=== PATIENT | male | born 1975 | race Hispanic/Latino ===

== ENCOUNTER 2017-10-18 21:19 | Inpatient (IN) | payer SELFPAY ==
--- NOTE | 2017-10-18 22:56 | ER ---
Nurse's Notes [facility] Name: Chava Pate Age: 42 yrs Sex: Male : 1975 Arrival Date: 10/18/2017 Time: 21:23 Bed 24 Private MD: Ramon Romo T Diagnosis: Cellulitis and acute lymphangitis of other parts of limb;Fever, unspecified;Type 2 diabetes mellitus Presentation: 10/18 21:32 Presenting complaint: Patient states: numbness in the left foot and radiates to the aj1 left knee, left knee pain. My left knuckle has been sore too. The pain has gotten worse over the day. I tried to go home and elevate it but it didn't help. Its throbbing. Transition of care: patient was not received from another setting of care. Onset of symptoms was October 15, 2017. Risk Assessment: Do you want to hurt yourself or someone else? Patient reports no desire to harm self or others. Initial Sepsis Screen: Does the patient meet any 2 criteria? No. Patient's initial sepsis screen is negative. Does the patient have a suspected source of infection? No. Patient's initial sepsis screen is negative. Care prior to arrival: None. 21:32 Method Of Arrival: Ambulatory aj1 21:32 Acuity: EDINSON 4 aj1 Triage Assessment: 21:34 General: Appears in no apparent distress. uncomfortable, Behavior is calm, cooperative, aj1 appropriate for age. Pain: Complains of pain in left hand and left leg Pain does not radiate. Pain currently is 10 out of 10 on a pain scale. Quality of pain is described as throbbing. Neuro: Level of Consciousness is awake, alert, obeys commands, Oriented to person, place, time, situation, Speech is normal, Facial symmetry appears normal. Cardiovascular: Patient's skin is warm and dry. Respiratory: Airway is patent Respiratory effort is even, unlabored, Respiratory pattern is regular, symmetrical. Derm: Skin is pink, warm \T\ dry. normal. Musculoskeletal: Range of motion: intact in all extremities. Historical: - Allergies: 21:34 No Known Allergies; aj1 - Home Meds: 21:34 None [Active]; aj1 - PMHx: 21:34 Diabetes - NIDDM; aj1 - PSHx: 21:34 None; aj1 - Immunization history:: Flu vaccine is not up to date. - Social history:: Smoking status: Patient/guardian denies using tobacco. - Ebola Screening: : Patient denies travel to an Ebola-affected area in the 21 days before illness onset. - Family history:: not pertinent. Screenin:30 Abuse screen: Denies threats or abuse. Denies injuries from another. Nutritional kr2 screening: No deficits noted. Tuberculosis screening: No symptoms or risk factors identified. Fall Risk None identified. Assessment: 22:27 General: Appears in no apparent distress. uncomfortable, well groomed, well developed, kr2 well nourished, Behavior is calm, cooperative, appropriate for age. Pain: Complains of pain in left leg Pain does not radiate. Pain currently is 10 out of 10 on a pain scale. Quality of pain is described as aching, tingling, Is continuous, Alleviated by nothing. Neuro: Level of Consciousness is awake, alert, obeys commands, Oriented to person, place, time, situation, Appropriate for age. Cardiovascular: Capillary refill < 3 seconds in bilateral fingers Patient's skin is warm and dry. Respiratory: Airway is patent Respiratory effort is even, unlabored, Respiratory pattern is regular, symmetrical. GI: Abdomen is round non-distended. : Denies burning with urination. EENT: Oral mucosa is moist. Derm: Skin is healthy with good turgor, Skin is pink, warm \T\ dry. redness to left lower leg. Musculoskeletal: Swelling present in left leg. 10/19 00:15 Reassessment: Patient appears in no apparent distress at this time. Patient and/or wh family updated on plan of care and expected duration. Pain level reassessed. Patient is alert, oriented x 3, equal unlabored respirations, skin warm/dry/pink. 01:14 Reassessment: Patient appears in no apparent distress at this time. Patient and/or wh family updated on plan of care and expected duration. Pain level reassessed. Patient is alert, oriented x 3, equal unlabored respirations, skin warm/dry/pink. 02:16 Reassessment: Patient appears in no apparent distress at this time. Patient and/or wh family updated on plan of care and expected duration. Pain level reassessed. Patient is alert, oriented x 3, equal unlabored respirations, skin warm/dry/pink. Vital Signs: 06/30 21:34 BP 160 / 99; Pulse 112; Resp 20; Temp 99.4(O); Pulse Ox 99% on R/A; Weight 99.79 kg; aj1 Height 5 ft. 7 in. (170.18 cm) (R); Pain 10/10; 22:20 BP 162 / 96; Pulse 108; Temp 101(O); Pulse Ox 96% ; jp3 10/19 00:37 BP 150 / 88; Pulse 104; Resp 22; Temp 98.4; Pulse Ox 98% on R/A; kr2 02:16 BP 113 / 54; Pulse 92; Resp 21; Pulse Ox 98% on R/A; wh 10/18 21:34 Body Mass Index 34.46 (99.79 kg, 170.18 cm) aj1 ED Course: 10/18 21:23 Patient arrived in ED. es 21:23 Ramon Romo MD is Private Physician. es 21:34 Triage completed. aj1 21:34 Arm band placed on Patient placed in waiting room, Patient notified of wait time. aj1 22:09 Cassia Mitchell, MARCELA is Primary Nurse. kr2 22:23 Elijah Ruiz MD is Attending Physician. [facility] 22:30 Patient has correct armband on for positive identification. Bed in low position. Call kr2 light in reach. Side rails up X 1. Pulse ox on. NIBP on. Door closed. Head of bed elevated. 22:54 Tahira Muhammad MD is Hospitalizing Provider. [facility] 23:00 XRAY Chest (1 view) In Process Unspecified. EDMS 23:05 Inserted saline lock: 20 gauge in right antecubital area, using aseptic technique. kr2 Blood collected. 23:20 Ultrasound completed. Patient tolerated well. Notified ED Physician jazlyn. sg3 23:30 Urine collected: clean catch specimen, clear, EKG done, by ED staff, reviewed by Elijah Ruiz MD. 10/19 02:19 No provider procedures requiring assistance completed. Patient admitted, IV remains in place. Administered Medications: 10/18 23:45 Drug: morphine 4 mg Route: IVP; Site: right antecubital; kr2 10/19 00:28 Follow up: Response: No adverse reaction; Pain is decreased kr2 10/18 23:45 Drug: Zofran 4 mg Route: IVP; Site: right antecubital; 2 10/19 00:28 Follow up: Response: No adverse reaction [facility] 10/18 23:45 Drug: Tylenol 1000 mg Route: PO; 2 10/19 00:28 Follow up: Response: No adverse reaction [facility] 10/18 23:46 Drug: NS 0.9% 1000 ml Route: IV; Rate: 1 bolus; Site: left antecubital; [facility] 10/19 02:18 Follow up: Response: No adverse reaction; IV Status: Completed infusion 10/18 23:46 Drug: Zosyn 3.375 grams Route: IVPB; Infused Over: 60 mins; Site: right antecubital; [facility] 10/19 00:27 Follow up: Response: No adverse reaction; IV Status: Completed infusion [facility] 00:21 Drug: Insulin Regular Human 10 units {Co-Signature: (Michaelle Benton).} Route: Sub-Q; kr2 Site: right upper arm; 02:19 Follow up: Response: No adverse reaction 01:57 Drug: NS 0.9% 1000 ml Route: IV; Rate: 1 bolus; Site: right antecubital; 02:18 Follow up: Response: No adverse reaction; IV Status: Infusion continued upon admission Outcome: 10/18 22:55 Decision to Hospitalize by Provider. [facility] 10/19 02:19 Admitted to [facility] accompanied by nurse, via wheelchair, room 406, with chart, Report called to Vikram MEDRANO Condition: good Instructed on the need for admit. 02:20 Patient left the ED. Signatures: Dispatcher [employer] Mikaela Coburn RN RN aj1 Elijah Ruiz MD MD cha Salyer, Edna es [facility] Cassia Mitchell RN RN kr2 Katelyn Kwong Jacob jp3 [facility]
--- NOTE | 2017-10-18 22:56 | EDPHYS ---
Physician Documentation [facility] Name: Chava Pate Age: 42 yrs Sex: Male : 1975 Arrival Date: 10/18/2017 Time: 21:23 Bed 24 Private MD: Ramon Romo T ED Physician Elijah Ruiz HPI: 10/18 22:51 This 42 yrs old Male presents to ER via Ambulatory with complaints of Leg dennis Pain, Numbness. 22:51 The patient presents with decreased range of motion, pain, that is acute. The dennis complaints affect the lateral aspect of left calf, left calf and left medeiros. Context: The problem was sustained at an unknown site. Onset: The symptoms/episode began/occurred 3 day(s) ago. Modifying factors: The symptoms are alleviated by nothing. the symptoms are aggravated by nothing. Associated signs and symptoms: The patient has no apparent associated signs or symptoms. Associated signs and symptoms: Pertinent positives: fever, weakness. Treatment prior to arrival includes: no previous treatment. Severity of symptoms: At their worst the symptoms were moderate, in the emergency department the symptoms are unchanged. The patient has not experienced similar symptoms in the past. Historical: - Allergies: 21:34 No Known Allergies; aj1 - Home Meds: 21:34 None [Active]; aj1 - PMHx: 21:34 Diabetes - NIDDM; aj1 - PSHx: 21:34 None; aj1 - Immunization history:: Flu vaccine is not up to date. - Social history:: Smoking status: Patient/guardian denies using tobacco. - Ebola Screening: : Patient denies travel to an Ebola-affected area in the 21 days before illness onset. - Family history:: not pertinent. ROS: 22:51 Constitutional: Negative for fever, chills, and weight loss, Eyes: Negative for injury, dennis pain, redness, and discharge, ENT: Negative for injury, pain, and discharge, Neck: Negative for injury, pain, and swelling, Cardiovascular: Negative for chest pain, palpitations, and edema, Respiratory: Negative for shortness of breath, cough, wheezing, and pleuritic chest pain, Abdomen/GI: Negative for abdominal pain, nausea, vomiting, diarrhea, and constipation, Back: Negative for injury and pain, : Negative for injury, bleeding, discharge, and swelling, Neuro: Negative for headache, weakness, numbness, tingling, and seizure, Psych: Negative for depression, anxiety, suicide ideation, homicidal ideation, and hallucinations, Allergy/Immunology: Negative for hives, rash, and allergies, Endocrine: Negative for neck swelling, polydipsia, polyuria, polyphagia, and marked weight changes, Hematologic/Lymphatic: Negative for swollen nodes, abnormal bleeding, and unusual bruising. 22:51 MS/extremity: Positive for pain, swelling, tenderness, of the lateral aspect of left calf. Exam: 22:51 Constitutional: This is a well developed, well nourished patient who is awake, alert, dennis and in no acute distress. Head/Face: Normocephalic, atraumatic. Eyes: Pupils equal round and reactive to light, extra-ocular motions intact. Lids and lashes normal. Conjunctiva and sclera are non-icteric and not injected. Cornea within normal limits. Periorbital areas with no swelling, redness, or edema. ENT: Nares patent. No nasal discharge, no septal abnormalities noted. Tympanic membranes are normal and external auditory canals are clear. Oropharynx with no redness, swelling, or masses, exudates, or evidence of obstruction, uvula midline. Mucous membranes moist. Neck: Trachea midline, no thyromegaly or masses palpated, and no cervical lymphadenopathy. Supple, full range of motion without nuchal rigidity, or vertebral point tenderness. No Meningismus. Chest/axilla: Normal chest wall appearance and motion. Nontender with no deformity. No lesions are appreciated. Cardiovascular: Regular rate and rhythm with a normal S1 and S2. No gallops, murmurs, or rubs. Normal PMI, no JVD. No pulse deficits. Respiratory: Lungs have equal breath sounds bilaterally, clear to auscultation and percussion. No rales, rhonchi or wheezes noted. No increased work of breathing, no retractions or nasal flaring. Abdomen/GI: Soft, non-tender, with normal bowel sounds. No distension or tympany. No guarding or rebound. No evidence of tenderness throughout. Back: No spinal tenderness. No costovertebral tenderness. Full range of motion. Male : Normal genitalia with no discharge or lesions. Neuro: Awake and alert, GCS 15, oriented to person, place, time, and situation. Cranial nerves II-XII grossly intact. Motor strength 5/5 in all extremities. Sensory grossly intact. Cerebellar exam normal. Normal gait. Psych: Awake, alert, with orientation to person, place and time. Behavior, mood, and affect are within normal limits. 22:51 Skin: Appearance: Temperature: hot, Moisture: normal moisture, petechiae, not noted, ecchymosis, not noted, diaphoresis is not appreciated, cellulitis, that is moderate, induration, that is mild is noted, injury, is not appreciated. Vital Signs: 21:34 BP 160 / 99; Pulse 112; Resp 20; Temp 99.4(O); Pulse Ox 99% on R/A; Weight 99.79 kg; aj1 Height 5 ft. 7 in. (170.18 cm) (R); Pain 10/10; 22:20 BP 162 / 96; Pulse 108; Temp 101(O); Pulse Ox 96% ; jp3 10/19 00:37 BP 150 / 88; Pulse 104; Resp 22; Temp 98.4; Pulse Ox 98% on R/A; kr2 02:16 BP 113 / 54; Pulse 92; Resp 21; Pulse Ox 98% on R/A; wh 10/18 21:34 Body Mass Index 34.46 (99.79 kg, 170.18 cm) aj1 MDM: 10/18 22:23 Patient medically screened. [facility] 22:51 Data reviewed: vital signs, nurses notes, lab test result(s), EKG, radiologic studies, [facility] plain films, ultrasound. 10/18 22:51 Order name: Basic Metabolic Panel; Complete Time: 23:53 [facility] 10/18 22:51 Order name: CBC with Diff; Complete Time: 23:53 [facility] 10/18 22:51 Order name: Ckmb; Complete Time: 23:53 [facility] 10/18 22:51 Order name: CPK; Complete Time: 23:53 [facility] 10/18 22:51 Order name: LFT's; Complete Time: 23:53 [facility] 10/18 22:51 Order name: Magnesium; Complete Time: 23:53 [facility] 10/18 22:51 Order name: NT PRO-BNP; Complete Time: 23:53 [facility] 10/18 22:51 Order name: PT-INR; Complete Time: 23:53 [facility] 10/18 22:51 Order name: Ptt, Activated; Complete Time: 23:53 [facility] 10/18 22:51 Order name: Troponin (emerg Dept Use Only); Complete Time: 23:53 [facility] 10/18 22:51 Order name: XRAY Chest (1 view) [facility] 10/18 22:51 Order name: Blood Culture Adult (2) [facility] 10/18 23:48 Order name: Urine Dipstick--Ancillary (enter results) 10/18 23:53 Order name: Urine Dipstick-Ancillary; Complete Time: 01:15 EDGA 10/18 22:51 Order name: EKG; Complete Time: 22:51 [facility] 10/18 22:51 Order name: Cardiac monitoring; Complete Time: 23:25 [facility] 10/18 22:51 Order name: EKG - Nurse/Tech; Complete Time: 23:45 [facility] 10/18 22:51 Order name: IV Saline Lock; Complete Time: 23:25 [facility] 10/18 22:51 Order name: Labs collected and sent; Complete Time: 23:25 [facility] 10/18 22:51 Order name: O2 Per Protocol; Complete Time: 23:25 [facility] 10/18 22:51 Order name: O2 Sat Monitoring; Complete Time: 23:25 [facility] 10/18 22:51 Order name: US Extremity Venous Unilateral Ltd [facility] 10/18 22:51 Order name: Urine Dipstick-Ancillary (obtain specimen); Complete Time: 23:45 [facility] Administered Medications: 23:45 Drug: morphine 4 mg Route: IVP; Site: right antecubital; [facility] 10/19 00:28 Follow up: Response: No adverse reaction; Pain is decreased [facility] 10/18 23:45 Drug: Zofran 4 mg Route: IVP; Site: right antecubital; [facility] 10/19 00:28 Follow up: Response: No adverse reaction [facility] 10/18 23:45 Drug: Tylenol 1000 mg Route: PO; [facility] 10/19 00:28 Follow up: Response: No adverse reaction [facility] 10/18 23:46 Drug: NS 0.9% 1000 ml Route: IV; Rate: 1 bolus; Site: left antecubital; 2 10/19 02:18 Follow up: Response: No adverse reaction; IV Status: Completed infusion 10/18 23:46 Drug: Zosyn 3.375 grams Route: IVPB; Infused Over: 60 mins; Site: right antecubital; kr2 10/19 00:27 Follow up: Response: No adverse reaction; IV Status: Completed infusion kr2 00:21 Drug: Insulin Regular Human 10 units {Co-Signature: ([facility]).} Route: Sub-Q; kr2 Site: right upper arm; 02:19 Follow up: Response: No adverse reaction 01:57 Drug: NS 0.9% 1000 ml Route: IV; Rate: 1 bolus; Site: right antecubital; 02:18 Follow up: Response: No adverse reaction; IV Status: Infusion continued upon admission Disposition: 10/18/17 22:55 Hospitalization ordered by Tahira Muhammad for Inpatient Admission. Preliminary diagnosis are Cellulitis and acute lymphangitis of other parts of limb, Fever, unspecified, Type 2 diabetes mellitus. - Bed requested for Telemetry/MedSurg (Inpatient). - Status is Inpatient Admission. - Condition is Fair. - Problem is new. - Symptoms have improved. UTI on Admission? No Signatures: Dispatcher [employer] EDMS Mikaeal Arana RN RN aj1 Elijah Ruiz MD MD cha Chretien, Felicia, RN RN [facility] Cassia Mitchell RN RN kr2 Donna Romero [facility] Corrections: (The following items were deleted from the chart) 10/18 23:00 22:55 Hospitalization Ordered by Tahira Muhammad MD for Inpatient Admission. Preliminary diagnosis is Cellulitis and acute lymphangitis of other parts of limb; Fever, unspecified; Type 2 diabetes mellitus. Bed requested for Telemetry/MedSurg (Inpatient). Status is Inpatient Admission. Condition is Fair. Problem is new. Symptoms have improved. UTI on Admission? No. dennis 10/19 01:27 10/18 23:00 10/18/2017 22:55 Hospitalization Ordered by Tahira Muhammad MD for Inpatient Admission. Preliminary diagnosis is Cellulitis and acute lymphangitis of other parts of limb; Fever, unspecified; Type 2 diabetes mellitus. Bed requested for Telemetry/MedSurg (Inpatient). Status is Inpatient Admission. Condition is Fair. Problem is new. Symptoms have improved. UTI on Admission? No. eb 10/19 02:20 01:27 10/18/2017 22:55 Hospitalization Ordered by Tahira Muhammad MD for Inpatient Admission. Preliminary diagnosis is Cellulitis and acute lymphangitis of other parts of limb; Fever, unspecified; Type 2 diabetes mellitus. Bed requested for Telemetry/MedSurg (Inpatient). Status is Inpatient Admission. Condition is Fair. Problem is new. Symptoms have improved. UTI on Admission? No. fc
[2017-10-18] MEDS ORDERED: GLUCAGON 1 MG/VIAL IM PRN (22:59)
[2017-10-18] MEDS ORDERED: D50W 25 GM/50 ML SYRINGE IV PRN (22:59)
[2017-10-18 23:23] LABS: Absolute Lymphocytes (CBC) 1.4 K/uL (0.7-4.9); Absolute Monocytes 1.1 K/uL (0.1-1.3); Basophils % 0.5 % (0-1.3); Eosinophils % 1.1 % (0-4.4); Hematocrit 38.7 % (39.6-49.0); Lymphocytes % 8.7 % (15.3-44.8); MCH 27.1 pg (27.0-35.0); MCV 80.4 fL (80-100); MPV 8.2 fL (7.6-11.3); Monocytes % 6.7 % (3.3-12.3); RBC Red Blood Cell Count 4.81 M/uL (4.33-5.43)
[2017-10-18] MEDS ORDERED: NA CHLORIDE 0.9% 1,000 ML ONE (23:23)
[2017-10-18] MEDS ORDERED: VANCOMYCIN 1 GM/250 ML BAG ONE (23:23)
[2017-10-18] MEDS ORDERED: ACETAMINOPHEN 500 MG TAB ONE (23:23)
[2017-10-18] MEDS ORDERED: ONDANSETRON 4 MG/2 ML VIAL ONE (23:23)
[2017-10-18] MEDS ORDERED: MORPHINE 4 MG/ML SYR ONE (23:23)
[2017-10-18] MEDS ORDERED: PIPER/TAZO/NS 3.375gm 3.375 GM/100 ML BAG ONE (23:24)
[2017-10-18 23:36] LABS: Protime INR 0.92
[2017-10-18 23:47] LABS: ALT/SGPT 23 U/L (12-78); AST/SGOT 16 U/L (15-37); Albumin 2.9 g/dL (3.4-5.0); Alkaline Phosphatase 131 U/L (45-117); BUN Blood Urea Nitrogen 23 mg/dL (7-18); Bicarbonate 25 mmol/L (21-32); Bilirubin Direct < 0.1 mg/dL (0-0.2); Bilirubin Total 0.3 mg/dL (0.2-1.0); CKMB Creatine Kinase MB 1.8 ng/mL (0.3-3.6); Creatine Phosphokinase 205 U/L (39-308); Glucose Level 328 mg/dL (74-106); Magnesium 1.8 mg/dL (1.8-2.4); NT PRO-BNP 69 pg/mL (<125); Protein, Total 7.5 g/dL (6.4-8.2); Sodium Level 133 mmol/L (136-145)
[2017-10-18 23:53] LABS: Urine Blood 1+ (NEG); Urine Glucose 2+ (NEG); Urine Protein 3+ (NEG); Urine pH 5.5 (5.0-7.0)
[2017-10-19] MEDS ORDERED: INSULIN -REGULAR HUMAN 50 UNIT/0.5 ML ML ONE (00:05)
[2017-10-19] MEDS ORDERED: NA CHLORIDE 0.9% 1,000 ML ONE (00:05)
--- NOTE | 2017-10-19 00:52 | P.HP ---
Certification for Inpatient Patient admitted to: Inpatient With expected LOS: >2 Midnights Practitioner: I am a practitioner with admitting privileges, knowledge of patient current condition, hospital course, and medical plan of care. Services: Services provided to patient in accordance with Admission requirements found in Title 42 Section 412.3 of the Code of Federal Regulations Patient History Date of Service: 10/19/17 Reason for admission: cellulitis History of Present Illness: Mr Pate is a 42 years old male with history of IDDM, who start about 3 days ago with left lower extremity pain and swelling. He also noticed redness discoloration on the external aspect of hi mid leg. He denied fever, however in ED his temp was 99.4. Lab work remarkable for leukocytosis 15.7K, BS 357 mg/dl. He denied any nausea, vomiting, chest pain or SOB. Allergies No Known Allergies Allergy (Verified 10/19/17 00:45) Home medications list reviewed: Yes Home Medications: NK [No Home Meds] 10/19/17 - Past Medical/Surgical History -: IDDM Past Surgical History: Reviewed- Non-Contributory - Family History Family History: Reviewed- Non-Contributory - Social History Smoking Status: Never smoker Alcohol use: No CD- Drugs: No Place of Residence: Home Review of Systems 10-point ROS is otherwise unremarkable Physical Examination - Physical Exam General: Alert, In no apparent distress HEENT: Atraumatic, PERRLA, Mucous membr. moist/pink, EOMI, Sclerae nonicteric Neck: Supple, 2+ carotid pulse no bruit, No LAD, Without JVD or thyroid abnormality Respiratory: Clear to auscultation bilaterally, Normal air movement Cardiovascular: Regular rate/rhythm, Normal S1 S2 Gastrointestinal: Normal bowel sounds, No tenderness Musculoskeletal: No tenderness Integumentary: Tenderness/swelling, Erythema (right mid leg external aspect) Neurological: Normal gait, Normal speech, Normal strength at 5/5 x4 extr, Normal tone, Normal affect Lymphatics: No axilla or inguinal lymphadenopathy Assessment and Plan - Problems (Diagnosis) (1) Cellulitis Current Visit: Yes Status: Acute Qualifiers: Site of cellulitis: extremity Site of cellulitis of extremity: lower extremity Laterality: left Qualified Code(s): L03.116 - Cellulitis of left lower limb (2) Diabetes mellitus Current Visit: Yes Status: Acute Qualifiers: Diabetes mellitus type: type 2 Diabetes mellitus intermediate insulin use: with intermodal customer service use Diabetes mellitus complication status: with unspecified complications Qualified Code(s): E11.8 - Type 2 diabetes mellitus with unspecified complications; Z79.4 - [employer] (current) use of insulin - Plan The patient will be admitted to the hospital due to left leg cellulitis. Will start empiric treatment with IV Vancomycin and Levaquin. Order SSI for BS control in the hospital. - Advance Directives Does patient have a Living Will: No Does patient have a Durable POA for Healthcare: No - Code Status/Comfort Care Code Status Assessed: Yes Code Status: Full Code
[2017-10-19] MEDS ORDERED: ACETAMINOPHEN 500 MG TAB PO PRN (02:34)
[2017-10-19] MEDS ORDERED: ONDANSETRON 4 MG/2 ML VIAL IV PRN (02:34)
[2017-10-19] MEDS: NA CHLORIDE 0.9% 1,000 ML IV SCH ×3 (02:53→23:50)
[2017-10-19] MEDS: Levofloxacin 750mg IV 750 MG/150 ML BAG IV SCH (02:53)
[2017-10-19] MEDS ORDERED: VANCOMYCIN 0.75 GM in NA CHLORIDE 0.9% 250 ML IV ONE (03:00)
[2017-10-19] MEDS ORDERED: TRAMADOL HCL 50 MG TAB PO PRN ×2 (04:20→07:06)
[2017-10-19] MEDS ORDERED: VANCOMYCIN 1 GM/VIAL ONE (05:23)
[2017-10-19] MEDS ORDERED: NA CHLORIDE 0.9% 250 ML ONE (05:24)
[2017-10-19 05:36] LABS: Absolute Lymphocytes (CBC) 1.8 K/uL (0.7-4.9); Absolute Monocytes 1.3 K/uL (0.1-1.3); Absolute Neutrophil 8.7 K/uL (1.8-8.0); Basophils % 0.3 % (0-1.3); Eosinophils % 1.6 % (0-4.4); Hematocrit 32.3 % (39.6-49.0); Lymphocytes % 14.8 % (15.3-44.8); MCH 26.4 pg (27.0-35.0); MCV 81.4 fL (80-100); MPV 8.3 fL (7.6-11.3); Monocytes % 10.9 % (3.3-12.3); RBC Red Blood Cell Count 3.96 M/uL (4.33-5.43)
[2017-10-19 05:44] LABS: Potassium 4.1 mmol/L (3.5-5.1)
--- NOTE | 2017-10-19 06:19 | EKG ---
Test Date: 2017-10-18 Test Time: 23:30:05 Purchasing Intern: LISA MEASUREMENT RESULTS: Intervals: Rate: 103 NV: 130 QRSD: 84 QT: 320 QTc: 419 [place]: P: 59 NV: 130 QRS: -6 T: 44 INTERPRETIVE STATEMENTS: Sinus tachycardia Otherwise normal ECG No previous ECG available for comparison Electronically Signed On 10-19-17 06:19:03 CDT by Hammad Choudhury
[2017-10-19] MEDS ORDERED: GABAPENTIN 100 MG CAP PO PRN (07:03)
[2017-10-19 08:07] LABS: Ferritin 250.9 ng/mL (26-388); Thyroid Stimulating Hormone 0.45 uIU/mL (0.36-3.74)
[2017-10-19] MEDS ORDERED: VANCOMYCIN 1.75 GM in NA CHLORIDE 0.9% 500 ML IVPB SCH ×3 (09:00→21:00)
[2017-10-19] MEDS ORDERED: VANCOMYCIN 1 GM in NA CHLORIDE 0.9% 500 ML IVPB SCH (09:00)
--- NOTE | 2017-10-19 09:20 | P.PN ---
Subjective Date of Service: 10/19/17 Primary Care Provider: None Chief Complaint: cellulitis Subjective: Other (Left lower extremity erythema slightly improved. Pain present to the left calf region. Patient reports non compliant with diabetic medication.) Physical Examination - Vital Signs Temperature: 98.9 F Blood Pressure: 156/80 Pulse: 91 Respirations: 18 Pulse Ox (%): 95 - Physical Exam General: Alert, In no apparent distress, Oriented x3, Cooperative HEENT: Atraumatic Neck: Supple Respiratory: Clear to auscultation bilaterally, Normal air movement Cardiovascular: Normal pulses, Regular rate/rhythm Gastrointestinal: Normal bowel sounds, Soft and benign, Non-distended, No tenderness, No masses, No rebound, No guarding Integumentary: Other (Mild erythema and pain to the left lateral calf region mainly to the lateral side just below the knee. No area of induration. No exudate noted.) Neurological: Normal speech, Normal strength at 5/5 x4 extr, Normal tone, Normal affect - Studies Medications List Reviewed: Yes Assessment & Plan - Problems (Diagnosis) (1) Anemia Current Visit: Yes Status: Acute Plan: Patient found to have iron and B12 deficiency. Will start iron and B12 supplementation. Patient will need GI evaluation as an outpatient. Patient presents with cellulitis to the left lower extremity. Will continue IV antibiotic therapy. Patient with diabetes. Hemoglobin A1c pending. Will restart metformin. Anticipate discharge likely tomorrow. I will turn the service over to Dr. Parisi tomorrow. I will go over the plan of care with her. Qualifiers: Anemia type: iron deficiency Iron deficiency anemia type: unspecified iron deficiency Qualified Code(s): D50.9 - Iron deficiency anemia, unspecified (2) B12 deficiency Current Visit: Yes Status: Acute Plan: Will start B12 supplementation. (3) Obesity Current Visit: Yes Status: Chronic Plan: Lifestyle modification education will be provided. Qualifiers: Obesity type: due to excess calories Obesity classification: adult class 1 (BMI 30 - 34.9) Serious obesity comorbidity presence: with serious comorbidity Body mass index: BMI 34.0-34.9 Qualified Code(s): E66.09 - Other obesity due to excess calories; Z68.34 - Body mass index (BMI) 34.0-34.9, adult (4) Diabetic neuropathy Current Visit: Yes Status: Chronic Plan: Patient reports taking medication. Will start Neurontin. Diabetic control needed. Qualifiers: Diabetes mellitus type: type 2 Diabetes mellitus complication detail: diabetic polyneuropathy Qualified Code(s): E11.42 - Type 2 diabetes mellitus with diabetic polyneuropathy (5) Cellulitis Current Visit: Yes Status: Acute Plan: Cellulitis to the left lower extremity noted. Slightly improved. Will continue with IV antibiotic therapy-vancomycin and Levaquin. Venous Doppler pending. Patient needs diabetic control. Overall condition appears improved. Will provide medication for pain. Anticipate possible discharge tomorrow. I will turn the service over to Dr. Parisi tomorrow. I will go over plan of care with her. Qualifiers: Site of cellulitis: extremity Site of cellulitis of extremity: lower extremity Laterality: left Qualified Code(s): L03.116 - Cellulitis of left lower limb (6) Diabetes mellitus Current Visit: Yes Status: Chronic Plan: Will check A1c. Patient admits not being compliant with medication. Will restart his metformin. Adjustments may be required for better control. Qualifiers: Diabetes mellitus type: type 2 Diabetes mellitus long term care social worker insulin use: with assisted use Diabetes mellitus complication status: with skin complications Diabetes mellitus complication detail: with other skin complication Qualified Code(s): E11.628 - Type 2 diabetes mellitus with other skin complications; Z79.4 - rodent exterminator (current) use of insulin (7) GERD (gastroesophageal reflux disease) Current Visit: Yes Status: Suspected Plan: Patient may have GERD especially in light of anemia. Will start PPI. Qualifiers: Esophagitis presence: esophagitis presence not specified Qualified Code(s) : K21.9 - Gastro-esophageal reflux disease without esophagitis Discharge Plan: Home Plan to discharge in: 24 Hours - Code Status/Comfort Care Code Status Assessed: Yes (Patient full code) Time Spent Managing Pts Care (In Minutes): 55
[2017-10-19] MEDS: INSULIN -REGULAR HUMAN 50 UNIT/0.5 ML ML SQ SCH ×4 (09:35→20:44)
[2017-10-19] MEDS: ENOXAPARIN 40 MG/0.4 ML SQ SCH (09:35)
[2017-10-19] MEDS: METFORMIN HCL 500 MG TAB PO SCH ×2 (09:44→17:26)
[2017-10-19] MEDS: HYDROCODONE/APAP 7.5/325 MG TAB PO PRN ×2 (09:44→20:54)
--- NOTE | 2017-10-19 11:24 | RAD REPORT ---
EXAM DESCRIPTION: VAS - Extremity Venous Uni Ltd - 10/18/2017 11:21 pm CLINICAL HISTORY: PAIN Leg swelling and edema. COMPARISON: Extremity Venous Uni Ltd dated 11/28/2015 FINDINGS: Left lower extremity venous system was interrogated with Doppler technique. Normal flow, c ompressibility and augmentation was noted. There is no DVT present. IMPRESSION: No evidence of left lower extremity deep venous thrombosis.
[2017-10-19] MEDS: CYANOCOBALAMIN 1,000 MCG TAB PO SCH (12:12)
[2017-10-19] MEDS: FERROUS SULFATE 325 MG TAB PO SCH (12:12)
[2017-10-19] MEDS: PANTOPRAZOLE 40MG TABLET PO SCH (12:12)
--- NOTE | 2017-10-19 12:37 | RAD REPORT ---
EXAM DESCRIPTION: RAD - Chest Single View - 10/18/2017 11:00 pm CLINICAL HISTORY: COUGH Chest pain. COMPARISON: No comparisons FINDINGS: Portable technique limits examination quality. The lungs are grossly clear. The heart is normal in size. No displaced fractures. IMPRESSION: No acute intrathoracic process suspected.
[2017-10-19] MEDS: ATORVASTATIN 20 MG TAB PO SCH (20:44)
[2017-10-20] MEDS: Levofloxacin 750mg IV 750 MG/150 ML BAG IV SCH (01:52)
[2017-10-20 04:12] LABS: Absolute Lymphocytes (CBC) 2.4 K/uL (0.7-4.9); Absolute Neutrophil 7.9 K/uL (1.8-8.0); Basophils % 0.4 % (0-1.3); Eosinophils % 1.6 % (0-4.4); Lymphocytes % 20.6 % (15.3-44.8); MCH 26.4 pg (27.0-35.0); MCV 81.3 fL (80-100); MPV 8.2 fL (7.6-11.3); Monocytes % 8.5 % (3.3-12.3); RBC Red Blood Cell Count 3.93 M/uL (4.33-5.43)
[2017-10-20 04:27] LABS: BUN Blood Urea Nitrogen 10 mg/dL (7-18); Bicarbonate 28 mmol/L (21-32); Glucose Level 166 mg/dL (74-106); Magnesium 1.7 mg/dL (1.8-2.4); Potassium 3.9 mmol/L (3.5-5.1); Sodium Level 138 mmol/L (136-145)
[2017-10-20] MEDS ORDERED: MAGNESIUM SULFATE 1 gm IVPB 1 GM/100 ML BAG IV ONE (05:03)
[2017-10-20] MEDS ORDERED: POTASSIUM 25 MEQ EFFERV TAB PO ONE (05:05)
[2017-10-20] MEDS: INSULIN -REGULAR HUMAN 50 UNIT/0.5 ML ML SQ SCH ×4 (08:32→21:10)
[2017-10-20] MEDS: CYANOCOBALAMIN 1,000 MCG TAB PO SCH (08:33)
[2017-10-20] MEDS: ENOXAPARIN 40 MG/0.4 ML SQ SCH (08:33)
[2017-10-20] MEDS: FERROUS SULFATE 325 MG TAB PO SCH (08:33)
[2017-10-20] MEDS: METFORMIN HCL 500 MG TAB PO SCH ×2 (08:33→16:17)
[2017-10-20] MEDS: PANTOPRAZOLE 40MG TABLET PO SCH (08:33)
[2017-10-20] MEDS: NA CHLORIDE 0.9% 1,000 ML IV SCH ×2 (08:33→16:16)
[2017-10-20] MEDS: HYDROCODONE/APAP 7.5/325 MG TAB PO PRN ×2 (08:39→21:09)
[2017-10-20] MEDS ORDERED: CYANOCOBALAMIN 1,000 MCG TAB PO SCH (10:00)
[2017-10-20] MEDS: VANCOMYCIN 1.75 GM in NA CHLORIDE 0.9% 500 ML IVPB SCH ×2 (10:28→22:06)
--- NOTE | 2017-10-20 13:50 | RAD REPORT ---
EXAM DESCRIPTION: RAD - Knee Left 2 View - 10/20/2017 1:34 pm CLINICAL HISTORY: Left knee pain and swelling FINDINGS: No fracture or dislocation is seen. A small joint effusion is suspected. Periosteal deposition involving the tibia may be secondary to p rior trauma. No bony erosion is noted.
--- NOTE | 2017-10-20 14:13 | P.PN ---
Subjective Date of Service: 10/20/17 Primary Care Provider: None Chief Complaint: cellulitis Pt seen and examined at bedside with RN. Chart Reviewed. C/o having pain on the right lower extremities. States he is not able to bear weight on the affected area. Review of Systems General: As per HPI Physical Examination - Vital Signs Temperature: 98.1 F Blood Pressure: 155/85 Pulse: 98 Respirations: 18 Pulse Ox (%): 97 - Physical Exam General: Alert, In no apparent distress HEENT: Atraumatic, PERRLA, EOMI Neck: Supple, JVD not distended Respiratory: Clear to auscultation bilaterally, Normal air movement Cardiovascular: Regular rate/rhythm, Normal S1 S2 Gastrointestinal: Normal bowel sounds, No tenderness Musculoskeletal: No tenderness Integumentary: Tenderness/swelling (On the right leg around the lateral aspect of the lower leg. ), Erythema, Warmth Neurological: Normal speech, Normal tone, Normal affect Lymphatics: No axilla or inguinal lymphadenopathy - Studies Medications List Reviewed: Yes Assessment & Plan - Problems (Diagnosis) (1) Cellulitis Onset Date: 10/20/17 Current Visit: Yes Status: Acute Plan: Left leg Cellulites and swelling. Pt is still complaining of pain and states he is unable to bear weight. -IV vanc and zosyn -Xray of the knee With Small Joint effusion. -MRI pending -US DVT negative -Culture pending. Qualifiers: Site of cellulitis: extremity Site of cellulitis of extremity: lower extremity Laterality: left Qualified Code(s): L03.116 - Cellulitis of left lower limb (2) Anemia Onset Date: 10/20/17 Current Visit: Yes Status: Chronic Qualifiers: Anemia type: iron deficiency Iron deficiency anemia type: unspecified iron deficiency Qualified Code(s): D50.9 - Iron deficiency anemia, unspecified (3) Diabetes mellitus Onset Date: 10/20/17 Current Visit: Yes Status: Chronic Qualifiers: Diabetes mellitus type: type 2 Diabetes mellitus termite inspector insulin use: with termite inspector use Diabetes mellitus complication status: with skin complications Diabetes mellitus complication detail: with other skin complication Qualified Code(s): E11.628 - Type 2 diabetes mellitus with other skin complications; Z79.4 - skilled nursing (current) use of insulin (4) Obesity Onset Date: 10/20/17 Current Visit: Yes Status: Chronic Qualifiers: Obesity type: due to excess calories Obesity classification: adult class 1 (BMI 30 - 34.9) Serious obesity comorbidity presence: with serious comorbidity Body mass index: BMI 34.0-34.9 Qualified Code(s): E66.09 - Other obesity due to excess calories; Z68.34 - Body mass index (BMI) 34.0-34.9, adult Discharge Plan: Home Plan to discharge in: 48 Hours - Code Status/Comfort Care Code Status Assessed: Yes Critical Care: No
--- NOTE | 2017-10-20 21:00 | RAD REPORT ---
EXAM DESCRIPTION: MRI - Knee Left W/Wo Cont - 10/20/2017 7:44 pm CLINICAL HISTORY: Left knee pain and swelling COMPARISON: October 20, 2017 x-ray TECHNIQUE: Axial, sagittal and coronal magnetic resonance imaging of the left knee was obtained. 20 cc MultiHance was administered intravenously. FINDINGS: A moderate joint effusion is present. A suprapatellar plica is seen. Enhancement of the s ynovium is present. Diffuse edema is present within the lateral subcutaneous tissues of the knee. A soft tissue abscess i s not seen. No significant abnormal signal within the bones is noted. IMPRESSION: Moderate joint effusion with enhancement of the synovium. This is a nonspecific finding but can be associated with septic arthritis and should be correlated clinically and with appropriate lab values. Diffuse edema within the lateral soft tissues of the knee probably representing a cellulitis There is no evidence of osteomyelitis
[2017-10-20] MEDS: ATORVASTATIN 20 MG TAB PO SCH (21:10)
[2017-10-21] MEDS: Levofloxacin 750mg IV 750 MG/150 ML BAG IV SCH (02:46)
[2017-10-21 04:16] LABS: Absolute Lymphocytes (CBC) 1.7 K/uL (0.7-4.9); Absolute Neutrophil 8.2 K/uL (1.8-8.0); Basophils % 0.6 % (0-1.3); Eosinophils % 2.1 % (0-4.4); Hematocrit 30.4 % (39.6-49.0); Lymphocytes % 15.3 % (15.3-44.8); MCH 27.3 pg (27.0-35.0); MCV 80.3 fL (80-100); Monocytes % 8.7 % (3.3-12.3); RBC Red Blood Cell Count 3.78 M/uL (4.33-5.43)
[2017-10-21 04:23] LABS: BUN Blood Urea Nitrogen 12 mg/dL (7-18); Bicarbonate 30 mmol/L (21-32); Glucose Level 173 mg/dL (74-106); Magnesium 1.9 mg/dL (1.8-2.4); Potassium 4.6 mmol/L (3.5-5.1); Sodium Level 139 mmol/L (136-145)
[2017-10-21] MEDS: NA CHLORIDE 0.9% 1,000 ML IV SCH ×2 (04:34→09:24)
[2017-10-21] MEDS: INSULIN -REGULAR HUMAN 50 UNIT/0.5 ML ML SQ SCH ×4 (07:30→21:40)
[2017-10-21] MEDS: VANCOMYCIN 1.75 GM in NA CHLORIDE 0.9% 500 ML IVPB SCH ×2 (09:25→21:39)
[2017-10-21] MEDS: METFORMIN HCL 500 MG TAB PO SCH ×2 (09:26→17:45)
[2017-10-21] MEDS: FERROUS SULFATE 325 MG TAB PO SCH (09:26)
[2017-10-21] MEDS: PANTOPRAZOLE 40MG TABLET PO SCH (09:26)
[2017-10-21] MEDS: ENOXAPARIN 40 MG/0.4 ML SQ SCH (09:27)
[2017-10-21] MEDS: CYANOCOBALAMIN 1,000 MCG TAB PO SCH (09:27)
[2017-10-21] MEDS: HYDROCODONE/APAP 7.5/325 MG TAB PO PRN ×2 (12:49→21:51)
--- NOTE | 2017-10-21 14:25 | P.PN ---
Subjective Date of Service: 10/21/17 Primary Care Provider: None Chief Complaint: cellulitis Pt seen and examined at bedside with RN. Chart Reviewed. still C/o having pain on the right lower extremities. States he is able to bear weight on the affected area but not as much. Mild improvement. Review of Systems General: As per HPI Physical Examination - Vital Signs Temperature: 98.5 F Blood Pressure: 169/92 Pulse: 95 Respirations: 18 Pulse Ox (%): 96 - Physical Exam General: Alert, In no apparent distress HEENT: Atraumatic, PERRLA, EOMI Neck: Supple, JVD not distended Respiratory: Clear to auscultation bilaterally, Normal air movement Cardiovascular: Regular rate/rhythm, Normal S1 S2 Gastrointestinal: Normal bowel sounds, No tenderness Musculoskeletal: Erythema, Tenderness, Warmth, Other (Swelling and redness noted on the lateral aspect of the left leg. Knee without any swelling or erythema. Patient able to bend the knee as well. ) Integumentary: No rashes Neurological: Normal speech, Normal tone, Normal affect Lymphatics: No axilla or inguinal lymphadenopathy - Studies Medications List Reviewed: Yes Assessment & Plan - Problems (Diagnosis) (1) Cellulitis Onset Date: 10/20/17 Current Visit: Yes Status: Acute Plan: Left leg Cellulites and swelling. Pt is still complaining of pain and states he is unable to bear weight. Slight improvement today. -IV vanc and zosyn -MRI of the knee with mild joint effusion with Enhancement. However clinically Pt does not have septic joint. Will continue to monitor. If symptoms changes then will get ortho to drain the fluid and send to culture. -US DVT negative -blood Culture pending. Qualifiers: Site of cellulitis: extremity Site of cellulitis of extremity: lower extremity Laterality: left Qualified Code(s): L03.116 - Cellulitis of left lower limb (2) Anemia Onset Date: 10/20/17 Current Visit: Yes Status: Chronic Qualifiers: Anemia type: iron deficiency Iron deficiency anemia type: unspecified iron deficiency Qualified Code(s): D50.9 - Iron deficiency anemia, unspecified (3) Diabetes mellitus Onset Date: 10/20/17 Current Visit: Yes Status: Chronic Qualifiers: Diabetes mellitus type: type 2 Diabetes mellitus terminal superintendent insulin use: with terminal superintendent use Diabetes mellitus complication status: with skin complications Diabetes mellitus complication detail: with other skin complication Qualified Code(s): E11.628 - Type 2 diabetes mellitus with other skin complications; Z79.4 - senior living (current) use of insulin (4) Obesity Onset Date: 10/20/17 Current Visit: Yes Status: Chronic Qualifiers: Obesity type: due to excess calories Obesity classification: adult class 1 (BMI 30 - 34.9) Serious obesity comorbidity presence: with serious comorbidity Body mass index: BMI 34.0-34.9 Qualified Code(s): E66.09 - Other obesity due to excess calories; Z68.34 - Body mass index (BMI) 34.0-34.9, adult Discharge Plan: Home Plan to discharge in: 24 Hours - Code Status/Comfort Care Code Status Assessed: Yes Critical Care: No
[2017-10-21] MEDS: ATORVASTATIN 20 MG TAB PO SCH (21:39)
[2017-10-22] MEDS: NA CHLORIDE 0.9% 1,000 ML IV SCH ×2 (00:34→05:49)
[2017-10-22] MEDS: Levofloxacin 750mg IV 750 MG/150 ML BAG IV SCH (02:40)
[2017-10-22 03:53] LABS: HBsAG Nonreactive (Nonreactive); Hepatitis A IgM Antibody Nonreactive
[2017-10-22 04:16] LABS: Hematocrit 30.3 % (39.6-49.0); MCH 27.6 pg (27.0-35.0); RBC Red Blood Cell Count 3.77 M/uL (4.33-5.43)
[2017-10-22 04:23] LABS: Absolute Lymphocytes (CBC) 1.7 K/uL (0.7-4.9); Absolute Monocytes 0.7 K/uL (0.1-1.3); Absolute Neutrophil 7.2 K/uL (1.8-8.0); Basophils % 0.7 % (0-1.3); Eosinophils % 2.6 % (0-4.4); Lymphocytes % 17.2 % (15.3-44.8); MCV 80.5 fL (80-100); MPV 7.8 fL (7.6-11.3); Monocytes % 6.6 % (3.3-12.3)
[2017-10-22 04:59] LABS: BUN Blood Urea Nitrogen 15 mg/dL (7-18); Bicarbonate 33 mmol/L (21-32); Glucose Level 184 mg/dL (74-106); Potassium 4.2 mmol/L (3.5-5.1); Sodium Level 139 mmol/L (136-145)
[2017-10-22] MEDS: HYDROCODONE/APAP 7.5/325 MG TAB PO PRN (09:04)
[2017-10-22] MEDS: METFORMIN HCL 500 MG TAB PO SCH (09:04)
[2017-10-22] MEDS: PANTOPRAZOLE 40MG TABLET PO SCH (09:04)
[2017-10-22] MEDS: FERROUS SULFATE 325 MG TAB PO SCH (09:05)
[2017-10-22] MEDS: ENOXAPARIN 40 MG/0.4 ML SQ SCH (09:05)
[2017-10-22] MEDS: VANCOMYCIN 1.75 GM in NA CHLORIDE 0.9% 500 ML IVPB SCH (09:05)
[2017-10-22] MEDS: INSULIN -REGULAR HUMAN 50 UNIT/0.5 ML ML SQ SCH (09:05)
[2017-10-22] MEDS: CYANOCOBALAMIN 1,000 MCG TAB PO SCH (09:05)
--- NOTE | 2017-10-22 12:10 | P.DS ---
Admission Date: 10/18/17 Discharge Date: 10/22/17 Primary Care Provider: None Disposition: ROUTINE DISCHARGE Discharge Condition: GOOD Reason for Admission: cellulitis Consultations: None - Problems (1) Cellulitis Onset Date: 10/20/17 Current Visit: Yes Status: Acute Qualifiers: Site of cellulitis: extremity Site of cellulitis of extremity: lower extremity Laterality: left Qualified Code(s): L03.116 - Cellulitis of left lower limb (2) Anemia Onset Date: 10/20/17 Current Visit: Yes Status: Chronic Qualifiers: Anemia type: iron deficiency Iron deficiency anemia type: unspecified iron deficiency Qualified Code(s): D50.9 - Iron deficiency anemia, unspecified (3) Diabetes mellitus Onset Date: 10/20/17 Current Visit: Yes Status: Chronic Qualifiers: Diabetes mellitus type: type 2 Diabetes mellitus fpc insulin use: with fpc use Diabetes mellitus complication status: with skin complications Diabetes mellitus complication detail: with other skin complication Qualified Code(s): E11.628 - Type 2 diabetes mellitus with other skin complications; Z79.4 - watermelon inspector (current) use of insulin (4) Obesity Onset Date: 10/20/17 Current Visit: Yes Status: Chronic Qualifiers: Obesity type: due to excess calories Obesity classification: adult class 1 (BMI 30 - 34.9) Serious obesity comorbidity presence: with serious comorbidity Body mass index: BMI 34.0-34.9 Qualified Code(s): E66.09 - Other obesity due to excess calories; Z68.34 - Body mass index (BMI) 34.0-34.9, adult Brief History of Present Illness: Mr Pate is a 42 years old male with history of IDDM, who start about 3 days ago with left lower extremity pain and swelling. He also noticed redness discoloration on the external aspect of hi mid leg. He denied fever, however in ED his temp was 99.4. Lab work remarkable for leukocytosis 15.7K, BS 357 mg/dl. He denied any nausea, vomiting, chest pain or SOB. Hospital Course: Overall During the hospital stay pt remained stable Pt was admitted to the hospital for left lower leg cellulites. Was started on Abx IV. Pt had no improvement day 2. Blood culture and wound culture were negative. Pt leg was wrapped and elevated day 2. Showed Marked improvement. Knee xray was done and MRI was consistent with Fluid collection. Pt however did not have any clinically signs of septic joint. Pt was switched PO levaquin and had marked improvement. Was able to ambulate and was doing well. on Day 3 pt swelling and cellulites completely resolved and thus discharge home. Vital Signs/Physical Exam: Temp Pulse Resp BP Pulse Ox 98.8 F 87 18 166/90 H 97 10/22/17 08:00 10/22/17 08:00 10/22/17 08:00 10/22/17 08:00 10/22/17 08:00 General: Alert, In no apparent distress HEENT: Atraumatic, PERRLA, EOMI Neck: Supple, JVD not distended Respiratory: Clear to auscultation bilaterally, Normal air movement Cardiovascular: Regular rate/rhythm, Normal S1 S2 Gastrointestinal: Normal bowel sounds, No tenderness Musculoskeletal: No tenderness, Other (Complete Resolution of the Left leg Swelling and cellulitis. Knee is WNL. and FROM noted on the left knee) Integumentary: No rashes Neurological: Normal speech, Normal tone, Normal affect Lymphatics: No axilla or inguinal lymphadenopathy Laboratory Data at Discharge: WBC 9.9 K/uL (4.3-10.9) 10/22/17 03:50 Hgb 10.4 g/dL (13.6-17.9) L 10/22/17 03:50 Hct 30.3 % (39.6-49.0) L 10/22/17 03:50 Plt Count 283 K/uL (152-406) 10/22/17 03:50 PT 10.9 SECONDS (9.5-12.5) 10/18/17 23:05 INR 0.92 10/18/17 23:05 APTT 26.3 SECONDS (24.3-36.9) 10/18/17 23:05 Sodium 139 mmol/L (136-145) 10/22/17 03:50 Potassium 4.2 mmol/L (3.5-5.1) 10/22/17 03:50 BUN 15 mg/dL (7-18) 10/22/17 03:50 Creatinine 0.90 mg/dL (0.55-1.3) 10/22/17 03:50 Glucose 184 mg/dL (74-106) H 10/22/17 03:50 Magnesium 1.9 mg/dL (1.8-2.4) 10/21/17 03:51 Total Bilirubin 0.3 mg/dL (0.2-1.0) 10/18/17 23:05 AST 16 U/L (15-37) 10/18/17 23:05 ALT 23 U/L (12-78) 10/18/17 23:05 Alkaline Phosphatase 131 U/L (45-117) H 10/18/17 23:05 Home Medications: Atorvastatin Calcium [Lipitor*] 20 mg PO BEDTIME #30 tab 10/22/17 levoFLOXacin [Levaquin] 500 mg PO DAILY #10 tab 10/22/17 New Medications: Atorvastatin Calcium [Lipitor*] 20 mg PO BEDTIME #30 tab levoFLOXacin [Levaquin] 500 mg PO DAILY #10 tab Patient Discharge Instructions: Please f.u with PCP in 1 to 2 week post discharge. You were admitted to the hospital for Cellulitis of the left leg. Knee MRI was consistent with effusion but clinically you did not have septic joint. You were treated with Levaquin. New medication. Levaquin 500mg Daily Diet: Regular Activity: Ad minh Followup: Ramon Romo MD [Primary Care Provider] - 1 Week (call the office to make an appointment in 1 week. )
== END 2017-10-22 12:43 | disposition home or self-care (01) | DRG 603 ==
LOC: ER 21:19 → ERHOLD 22:56 → 4TH 10-19 01:56
PROVIDERS: ADMIT Internal Medicine; ATTEND Internal Medicine
DX: L03.116 Cellulitis of left lower limb (principal); D64.9 Anemia, unspecified; E11.9 Type 2 diabetes mellitus without complications; Z79.4 Long term (current) use of insulin; E66.9 Obesity, unspecified; Z68.34 Body mass index [BMI] 34.0-34.9, adult; E53.8 Deficiency of other specified B group vitamins; K21.9 Gastro-esophageal reflux disease without esophagitis
CPT/HCPCS: 36415; 71045; 80048; 80074; 80076; 80202; 81003; 82550; 82553; 82607; 82728; 82962; 83036; 83540; 83735; 83880; 84439; 84443; 84466; 84484; 85025; 85610; 85730; 87040; 93005; 93971; 96361; 96365; 96372; 96375; 99285; A9577; J1650; J2405; J2543; J3370; J3475; J7030

== ENCOUNTER 2017-10-30 03:34 | Emergency (ER) | payer SELFPAY ==
[2017-10-30] MEDS ORDERED: HYDROCODONE/APAP 5/325 MG TAB ONE (04:22)
--- NOTE | 2017-10-30 04:27 | EDPHYS ---
Physician Documentation [facility] Name: Chava Pate Age: 42 yrs Sex: Male : 1975 Arrival Date: 10/30/2017 Time: 03:36 Bed 15 Private MD: Ramon Romo T ED Physician Elijah Ruiz HPI: 10/30 04:18 This 42 yrs old Male presents to ER via Ambulatory with complaints of cant dennis sleep, Pain, cellulitis. 04:18 The patient presents with pain, that is acute. The complaints affect the lateral aspect dennis of left knee. Context: The problem was sustained at home. Onset: The symptoms/episode began/occurred 2 day(s) ago. Modifying factors: The symptoms are alleviated by nothing. the symptoms are aggravated by nothing. Associated signs and symptoms: Pertinent positives: tingling. Severity of symptoms: At their worst the symptoms were mild, in the emergency department the symptoms are unchanged. The patient has not experienced similar symptoms in the past, The patient has experienced similar episodes in the past. Historical: - Allergies: 03:55 No Known Allergies; fc - Home Meds: 03:55 Unable to obtain [Active]; fc - PMHx: 03:55 Diabetes - NIDDM; peripheral neuropathy; fc - PSHx: 03:55 None; fc - Immunization history:: Last tetanus immunization: unknown. - Social history:: Smoking status: Patient/guardian denies using tobacco. - Ebola Screening: : Patient negative for fever greater than or equal to 101.5 degrees Fahrenheit, and additional compatible Ebola Virus Disease symptoms Patient denies exposure to infectious person Patient denies travel to an Ebola-affected area in the 21 days before illness onset. - Family history:: not pertinent. ROS: 04:18 Constitutional: Negative for fever, chills, and weight loss, Eyes: Negative for injury, dennis pain, redness, and discharge, ENT: Negative for injury, pain, and discharge, Neck: Negative for injury, pain, and swelling, Cardiovascular: Negative for chest pain, palpitations, and edema, Respiratory: Negative for shortness of breath, cough, wheezing, and pleuritic chest pain, Abdomen/GI: Negative for abdominal pain, nausea, vomiting, diarrhea, and constipation, Back: Negative for injury and pain, : Negative for injury, bleeding, discharge, and swelling, Skin: Negative for injury, rash, and discoloration, Neuro: Negative for headache, weakness, numbness, tingling, and seizure, Psych: Negative for depression, anxiety, suicide ideation, homicidal ideation, and hallucinations, Allergy/Immunology: Negative for hives, rash, and allergies, Endocrine: Negative for neck swelling, polydipsia, polyuria, polyphagia, and marked weight changes, Hematologic/Lymphatic: Negative for swollen nodes, abnormal bleeding, and unusual bruising. 04:18 MS/extremity: Positive for pain, paresthesias, tenderness, of the lateral aspect of left knee. Exam: 04:18 Constitutional: This is a well developed, well nourished patient who is awake, alert, dennis and in no acute distress. Head/Face: Normocephalic, atraumatic. Eyes: Pupils equal round and reactive to light, extra-ocular motions intact. Lids and lashes normal. Conjunctiva and sclera are non-icteric and not injected. Cornea within normal limits. Periorbital areas with no swelling, redness, or edema. ENT: Nares patent. No nasal discharge, no septal abnormalities noted. Tympanic membranes are normal and external auditory canals are clear. Oropharynx with no redness, swelling, or masses, exudates, or evidence of obstruction, uvula midline. Mucous membranes moist. Neck: Trachea midline, no thyromegaly or masses palpated, and no cervical lymphadenopathy. Supple, full range of motion without nuchal rigidity, or vertebral point tenderness. No Meningismus. Chest/axilla: Normal chest wall appearance and motion. Nontender with no deformity. No lesions are appreciated. Cardiovascular: Regular rate and rhythm with a normal S1 and S2. No gallops, murmurs, or rubs. Normal PMI, no JVD. No pulse deficits. Respiratory: Lungs have equal breath sounds bilaterally, clear to auscultation and percussion. No rales, rhonchi or wheezes noted. No increased work of breathing, no retractions or nasal flaring. Abdomen/GI: Soft, non-tender, with normal bowel sounds. No distension or tympany. No guarding or rebound. No evidence of tenderness throughout. Back: No spinal tenderness. No costovertebral tenderness. Full range of motion. Male : Normal genitalia with no discharge or lesions. Skin: Warm, dry with normal turgor. Normal color with no rashes, no lesions, and no evidence of cellulitis. MS/ Extremity: Pulses equal, no cyanosis. Neurovascular intact. Full, normal range of motion. Neuro: Awake and alert, GCS 15, oriented to person, place, time, and situation. Cranial nerves II-XII grossly intact. Motor strength 5/5 in all extremities. Sensory grossly intact. Cerebellar exam normal. Normal gait. Psych: Awake, alert, with orientation to person, place and time. Behavior, mood, and affect are within normal limits. 04:27 Musculoskeletal/extremity: DVT Exam: No signs of deep vein thrombosis. no swelling, dennis negative Homans' sign noted on exam, no appreciated bluish discoloration, no erythema, no increased warmth, pain, tenderness, that is mild. Vital Signs: 03:40 BP 157 / 96; Pulse 96; Resp 20; Temp 98.0(O); Pulse Ox 98% on R/A; Weight 99.79 kg (R); fc Height 5 ft. 8 in. (172.72 cm) (R); Pain 10/10; 03:40 Body Mass Index 33.45 (99.79 kg, 172.72 cm) fc MDM: 03:56 Patient medically screened. [facility] 04:25 Data reviewed: vital signs, nurses notes, lab test result(s). [facility] 10/30 04:15 Order name: Blood Glucose Level; Complete Time: 04:15 [facility] Administered Medications: 04:30 Drug: [place] 5 mg-325 mg 1 tabs Route: PO; jd3 04:31 Follow up: Response: Medication administered at discharge. jd3 Point of Care Testing: Blood Glucose: 04:15 Blood Glucose: 239 mg/dL; jd3 Ranges: Critical Glucose Levels:Adult <50 mg/dl or >400 mg/dl <40 mg/dl or >180 mg/dl Disposition: 10/30/17 04:26 Discharged to Home. Impression: Type 1 diabetes mellitus. - Condition is Stable. - Discharge Instructions: Type 1 Diabetes Mellitus, Adult, Diabetes Mellitus and Food. - Prescriptions for gabapentin 300 mg Oral capsule - take 1 capsule by ORAL route 3 times per day; 60 capsule. Tylenol- Codeine #3 300-30 mg Oral Tablet - take 2 tablets by ORAL route every 6 hours As needed; 24 tablet. - Medication Reconciliation Form, Thank You Letter, Antibiotic Education, Prescription Opioid Use form. - Follow up: Ramon Romo MD; When: 2 - 3 days; Reason: Recheck today's complaints, Continuance of care, Re-evaluation by your physician. - Problem is new. - Symptoms have improved. Signatures: Elijah Ruiz MD MD cha Chretien, Felicia RN RN Joao Sue RN RN jd3 Corrections: (The following items were deleted from the chart) 04:35 04:26 10/30/2017 04:26 Discharged to Home. Impression: Type 1 diabetes mellitus. jd3 Condition is Stable. Forms are Medication Reconciliation Form, Thank You Letter, Antibiotic Education, Prescription Opioid Use. Follow up: Ramon Romo; When: 2 - 3 days; Reason: Recheck today's complaints, Continuance of care, Re-evaluation by your physician. Problem is new. Symptoms have improved. dennis
--- NOTE | 2017-10-30 04:27 | ER ---
Nurse's Notes [facility] Name: Chava Pate Age: 42 yrs Sex: Male : 1975 Arrival Date: 10/30/2017 Time: 03:36 Bed 15 Private MD: Ramon Romo T Diagnosis: Type 1 diabetes mellitus Presentation: 10/30 03:40 Presenting complaint: Patient states: that he was here and admitted last week for fc cellulitis to left knee. Upon discharge Dr Parisi gave him 1 antibiotics which he has been taking. States that the pain is getting worse. No redness or swelling present. Transition of care: patient was not received from another setting of care. Onset of symptoms was October 30, 2017. Risk Assessment: Do you want to hurt yourself or someone else? Patient reports no desire to harm self or others. Initial Sepsis Screen: Does the patient meet any 2 criteria? HR > 90 bpm. Does the patient have a suspected source of infection? No. Patient's initial sepsis screen is negative. Care prior to arrival: None. 03:40 Method Of Arrival: Ambulatory 03:40 Acuity: EDINSON 3 Triage Assessment: 03:40 General: Appears comfortable, Behavior is calm, cooperative, appropriate for age. Pain: fc Complains of pain in left leg Pain currently is 10 out of 10 on a pain scale. Quality of pain is described as aching, sharp, throbbing, Is continuous, Aggravated by increased activity, repositioning, weight bearing. EENT: No deficits noted. Neuro: Level of Consciousness is awake, alert, obeys commands, Oriented to person, place, time, situation. Cardiovascular: No deficits noted. Respiratory: No deficits noted. GI: No deficits noted. : No deficits noted. Derm: Skin is pink, warm \T\ dry. no redness or warmth to left knee area. Musculoskeletal: Circulation, motion, and sensation intact. Capillary refill < 3 seconds, Range of motion: intact in all extremities, Reports pain in lateral aspect of left knee and lateral aspect of left calf. Historical: - Allergies: 03:55 No Known Allergies; fc - Home Meds: 03:55 Unable to obtain [Active]; fc - PMHx: 03:55 Diabetes - NIDDM; peripheral neuropathy; fc - PSHx: 03:55 None; fc - Immunization history:: Last tetanus immunization: unknown. - Social history:: Smoking status: Patient/guardian denies using tobacco. - Ebola Screening: : Patient negative for fever greater than or equal to 101.5 degrees Fahrenheit, and additional compatible Ebola Virus Disease symptoms Patient denies exposure to infectious person Patient denies travel to an Ebola-affected area in the 21 days before illness onset. - Family history:: not pertinent. Screenin:40 Abuse screen: Denies threats or abuse. Nutritional screening: No deficits noted. fc Tuberculosis screening: No symptoms or risk factors identified. Fall Risk None identified. Assessment: 04:10 General: Appears in no apparent distress. uncomfortable, Behavior is calm, cooperative, jd3 appropriate for age. Pain: Complains of pain in lateral aspect of left calf Quality of pain is described as aching, Is continuous, Aggravated by increased activity. Neuro: Level of Consciousness is awake, alert, obeys commands, Oriented to person, place, time, situation, Appropriate for age. Cardiovascular: Heart tones S1 S2 present Capillary refill < 3 seconds Patient's skin is warm and dry. Respiratory: Airway is patent Respiratory effort is even, unlabored, Respiratory pattern is regular, symmetrical, Breath sounds are clear bilaterally. GI: Abdomen is round Bowel sounds present X 4 quads. Abd is soft and non tender X 4 quads. Patient currently denies abdominal pain, diarrhea, nausea, vomiting. : No signs and/or symptoms were reported regarding the genitourinary system. EENT: No signs and/or symptoms were reported regarding the EENT system. Derm: Skin is intact, Skin is dry, Skin is normal, Skin temperature is warm dry area noted on lateral side of left knee. no redness or swelling noted. Musculoskeletal: Circulation, motion, and sensation intact. Range of motion: intact in all extremities. 04:34 Reassessment: Patient appears in no apparent distress at this time. Patient and/or jd3 family updated on plan of care and expected duration. Pain level reassessed. Patient is alert, oriented x 3, equal unlabored respirations, skin warm/dry/pink. pt reported understanding of discharge instructions, even and steady gait upon discharge. Vital Signs: 03:40 BP 157 / 96; Pulse 96; Resp 20; Temp 98.0(O); Pulse Ox 98% on R/A; Weight 99.79 kg (R); fc Height 5 ft. 8 in. (172.72 cm) (R); Pain 1010; 03:40 Body Mass Index 33.45 (99.79 kg, 172.72 cm) ED Course: 03:36 Patient arrived in ED. am2 03:36 Ramon Romo MD is Private Physician. am2 03:40 Arm band placed on Patient placed in an exam room, on a stretcher. fc 03:40 Patient has correct armband on for positive identification. Placed in gown. Bed in low fc position. Call light in reach. Pulse ox on. NIBP on. 03:40 No provider procedures requiring assistance completed. 03:53 Triage completed. fc 03:56 Elijah Ruiz MD is Attending Physician. dennis 04:05 Joao Sue, MARCELA is Primary Nurse. jd3 04:25 Ramon Romo MD is Referral Physician. dennis 04:34 Patient did not have IV access during this emergency room visit. jd3 Administered Medications: 04:30 Drug: [place] 5 mg-325 mg 1 tabs Route: PO; jd3 04:31 Follow up: Response: Medication administered at discharge. jd3 Point of Care Testing: Blood Glucose: 04:15 Blood Glucose: 239 mg/dL; jd3 Ranges: Outcome: 04:26 Discharge ordered by . dennis 04:33 Discharged to home ambulatory. jd3 04:33 Condition: stable 04:33 Discharge instructions given to patient, Instructed on discharge instructions, follow up and referral plans. medication usage, Demonstrated understanding of instructions, follow-up care, medications, Prescriptions given X 2. 04:35 Patient left the ED. jd3 Signatures: Elijah Ruiz MD MD cha Chretien, Felicia, RN RN Radha Medrano [facility] Joao Sue, MARCELA RN jd3 Corrections: (The following items were deleted from the chart) 04:14 04:10 Derm: Skin is intact, Skin is dry, Skin is normal, Skin temperature is warm dry jd3 red area on lateral side of left knee. jd3 04:14 04:10 Musculoskeletal: Circulation, motion, and sensation intact. Range of motion: jd3 intact in all extremities, jd3
== END 2017-10-30 04:35 | disposition home or self-care (01) ==
LOC: ER 03:34
DX: E10.42 Type 1 diabetes mellitus with diabetic polyneuropathy (principal)
CPT/HCPCS: 82962; 99283

== ENCOUNTER 2018-05-30 22:11 | Emergency (ER) | payer SELFPAY ==
[2018-05-30 22:39] LABS: Absolute Lymphocytes (CBC) 2.8 K/uL (0.7-4.9); Absolute Monocytes 0.6 K/uL (0.1-1.3); Absolute Neutrophil 4.8 K/uL (1.8-8.0); Basophils % 1.2 % (0-1.3); Eosinophils % 3.5 % (0-4.4); Hematocrit 42.7 % (39.6-49.0); Lymphocytes % 32.7 % (15.3-44.8); MPV 8.3 fL (7.6-11.3); RBC Red Blood Cell Count 5.25 M/uL (4.33-5.43)
[2018-05-30] MEDS ORDERED: NA CHLORIDE 0.9% 1,000 ML ONE (22:40)
[2018-05-30] MEDS ORDERED: ACYCLOVIR 400 MG TABLET ONE (22:40)
[2018-05-30 22:42] LABS: Protime INR 0.84
[2018-05-30 23:17] LABS: ALT/SGPT 51 U/L (12-78); AST/SGOT 20 U/L (15-37); Albumin 3.2 g/dL (3.4-5.0); Alkaline Phosphatase 198 U/L (45-117); BUN Blood Urea Nitrogen 23 mg/dL (7-18); Bicarbonate 24 mmol/L (21-32); Bilirubin Direct < 0.1 mg/dL (0-0.2); Bilirubin Total 0.2 mg/dL (0.2-1.0); Glucose Level 370 mg/dL (74-106); Potassium 4.1 mmol/L (3.5-5.1); Protein, Total 7.1 g/dL (6.4-8.2); Sodium Level 136 mmol/L (136-145); Troponin (Emerg Dept Use Only) < 0.02 ng/mL (0.0-0.045)
[2018-05-30] MEDS ORDERED: INSULIN -REGULAR HUMAN 50 UNIT/0.5 ML ML ONE (23:56)
--- NOTE | 2018-05-31 00:17 | ER ---
Nurse's Notes [facility] Name: Chava Pate Age: 43 yrs Sex: Male : 1975 Arrival Date: 05/30/2018 Time: 22:15 Bed 7 Private MD: Diagnosis: Diabetes mellitus due to underlying condition with hyperglycemia;Essential (primary) hypertension;Mckeon's palsy Presentation: 05/30 22:18 Presenting complaint: Patient states: left sided facial droop since 1000 this morning. la1 Top Cleaner equal and strong. Transition of care: patient was not received from another setting of care. Onset of symptoms was May 30, 2018. Risk Assessment: Do you want to hurt yourself or someone else? Patient reports no desire to harm self or others. Initial Sepsis Screen: Does the patient meet any 2 criteria? No. Patient's initial sepsis screen is negative. Does the patient have a suspected source of infection? No. Patient's initial sepsis screen is negative. Care prior to arrival: None. 22:18 Method Of Arrival: Ambulatory la1 22:18 Acuity: EDINSON 3 la1 Historical: - Allergies: 22:19 No Known Allergies; la1 - Home Meds: 22:19 None [Active]; la1 - PMHx: 22:19 Diabetes - NIDDM; PERIPHERAL NEUROPATHY; la1 - PSHx: 22:19 None; la1 - Immunization history:: Adult Immunizations up to date. - Social history:: Smoking status: Patient/guardian denies using tobacco. - Ebola Screening: : No symptoms or risks identified at this time. Screenin:21 Abuse screen: Denies threats or abuse. Denies injuries from another. Nutritional ed1 screening: No deficits noted. Tuberculosis screening: No symptoms or risk factors identified. Fall Risk None identified. Assessment: 22:21 General: Appears in no apparent distress. Behavior is calm, cooperative. Pain: Denies ed1 pain. Neuro: Level of Consciousness is awake, alert, obeys commands, Oriented to person, place, time, situation, Top Cleaner are equal bilaterally Moves all extremities. Gait is steady, Speech is normal, Facial droop on left, Facial symmetry: tongue is midline, Pupils are PERRLA, Intact Reports dizziness, since 1000 today. Cardiovascular: Denies chest pain, Heart tones S1 S2 present. Respiratory: Airway is patent Respiratory effort is even, unlabored, Respiratory pattern is regular, symmetrical, Breath sounds are clear bilaterally. GI: No signs and/or symptoms were reported involving the gastrointestinal system. : No signs and/or symptoms were reported regarding the genitourinary system. EENT: No signs and/or symptoms were reported regarding the EENT system. Derm: Skin is intact, is healthy with good turgor, Skin is dry, Skin is normal, Skin temperature is warm. Musculoskeletal: Circulation, motion, and sensation intact. Range of motion: intact in all extremities. 23:21 Reassessment: Patient appears in no apparent distress at this time. No changes from ed1 previously documented assessment. Patient and/or family updated on plan of care and expected duration. Pain level reassessed. Patient is alert, oriented x 3, equal unlabored respirations, skin warm/dry/pink. Patient denies pain at this time. 05/31 00:30 Reassessment: Patient appears in no apparent distress at this time. No changes from ed1 previously documented assessment. Patient and/or family updated on plan of care and expected duration. Pain level reassessed. Patient is alert, oriented x 3, equal unlabored respirations, skin warm/dry/pink. Patient denies pain at this time. Vital Signs: 05/30 22:19 BP 163 / 108; Pulse 87; Resp 18; Temp 98.1; Pulse Ox 99% on R/A; Weight 113.4 kg; ed1 Height 5 ft. 8 in. (172.72 cm); Pain 0/10; 23:21 BP 159 / 86; Pulse 87; Resp 18; Pulse Ox 95% on R/A; Pain 0/10; ed1 05/31 00:19 BP 140 / 73; Pulse 89; Resp 16; Pulse Ox 96% on R/A; Pain 0/10; ed1 05/30 22:19 Body Mass Index 38.01 (113.40 kg, 172.72 cm) ed1 NIH Stroke Scale Scores: 05/30 22:29 NIHSS Score: 3 [facility] ED Course: 22:15 Patient arrived in ED. tl2 22:16 Irina Castellanos FNP-C [facility]. snw 22:16 Sean Flores MD is Attending Physician. snw 22:18 Triage completed. la1 22:19 Sofie Lopez, MARCELA is Primary Nurse. ed1 22:19 Arm band placed on left wrist. la1 22:21 Patient has correct armband on for positive identification. Placed in gown. Bed in low ed1 position. Call light in reach. Side rails up X 1. Pulse ox on. NIBP on. 22:25 Initial lab(s) drawn, by ED staff, sent to lab. Inserted saline lock: 20 gauge in right ed1 hand, using aseptic technique. Blood collected. 23:09 X-ray completed. Portable x-ray completed in exam room. Patient tolerated procedure sg4 well. 23:13 XRAY Chest (1 view) In Process Unspecified. EDMS 23:45 CT Head Brain wo Cont In Process Unspecified. EDMS 02 00:30 No provider procedures requiring assistance completed. IV discontinued, intact, ed1 bleeding controlled, No redness/swelling at site. Pressure dressing applied. Administered Medications: 02/ 22:35 Drug: NS 0.9% 1000 ml Route: IV; Rate: 1 bolus; Site: right hand; ed1 23:51 Follow up: IV Status: Completed infusion; IV Intake: 1000ml ed1 22:35 Drug: Acyclovir 800 mg Route: PO; ed1 23:51 Follow up: Response: No adverse reaction ed1 23:50 Drug: Insulin Regular Human 5 units {Co-Signature: paulino (Jacy Hoffmann RN).} Route: IVP; ed1 Site: right hand; 02/ 00:19 Follow up: Response: Blood sugar is lowered ed1 02 23:51 Drug: Insulin Regular Human 5 units {Co-Signature: paulino (Jacy Hoffmann RN).} Route: Sub-Q; ed1 Site: right lower abdomen; 02/ 00:20 Follow up: Response: Blood sugar is lowered ed1 Point of Care Testing: Blood Glucose: 02/09 22:19 Blood Glucose: 325 mg/dL; ed1 02/ 00:19 Blood Glucose: 272 mg/dL; ed1 Ranges: Intake: 02 23:51 IV: 1000ml; Total: 1000ml. ed1 Outcome: 02 00:14 Discharge ordered by MD. elizabeth 00:30 Discharged to home ambulatory. ed1 00:30 Condition: good 00:30 Discharge instructions given to patient, Instructed on discharge instructions, follow up and referral plans. medication usage, Demonstrated understanding of instructions, follow-up care, medications, Prescriptions given X 2. 00:31 Patient left the ED. ed1 NIH Stroke Scale - NIH Stroke Score Date: 05/30/2018 Time: 22:29 Total Score = 3 1a. Level of Consciousness (LOC) - 0(Alert) 1b. Level of Consciousness (LOC) (Year \T\ Age) - 0(Both) 1c. LOC Commands (Open \T\ Closes Eyes/Computer Operations Specialist) - 0(Both) 2. Best Gaze (Lateral Gaze Paresis) - 0(Normal) 3. Visual Field Loss - 0(No visual loss) 4. Facial Palsy - 3(Complete paralysis) 5a. Left Arm: Motor (10-second hold) - 0(No drift) 5b. Right Arm: Motor (10-second hold) - 0(No drift) 6a. Left Leg: Motor (5-second hold - always test supine) - 0(No drift) 6b. Right Leg: Motor (5-second hold - always test supine) - 0(No drift) 7. Limb Ataxia (finger/nose \T\ heel/medeiros - test with eyes open) - 0(Absent) 8. Sensory Loss (pinprick arms/legs/face) - 0(Normal) 9. Best Language: Aphasia (description/naming/reading) - 0(No aphasia) 10. Dysarthria (speech clarity - read or repeat words) - 0(Normal) 11. Extinction and Inattention (visual/tactile/auditory/spatial/personal) - 0(No abnormality) Initials: snw Signatures: Dispatcher [employer] EDMS Irina Castellanos, WORK ENVIRONMENT SAFETY INSPECTOR-C WORK ENVIRONMENT SAFETY INSPECTOR-Csnw Sofie Lopez RN RN ed1 Tirso Wilson RN RN la1 Clover Wiseman, MARCELA RN tl2 Stefanie Briceño sg4 Jacy Hoffmann RN lp1 Corrections: (The following items were deleted from the chart) 05/30 22:20 22:19 BP 163 / 108; 113.4 kg; Height 5 ft. 8 in.; BMI: 38.0; la1 ed1 22:27 22:19 BP 163 / 108; Temp 98.1F; 113.4 kg; Height 5 ft. 8 in.; BMI: 38.0; ed1 ed1
--- NOTE | 2018-05-31 00:18 | EDPHYS ---
Physician Documentation [facility] Name: Chava Pate Age: 43 yrs Sex: Male : 1975 Arrival Date: 05/30/2018 Time: 22:15 Bed 7 Private MD: ED Physician Sean Flores HPI: 05/30 22:23 This 43 yrs old Male presents to ER via Ambulatory with complaints of facial snw paralysis/dizziness. 22:23 This 43 yrs old Male presents to ER via Ambulatory with complaints of snw Dizziness. 22:23 The patient presents to the emergency department with left facial paralysis. Onset: The snw symptoms/episode began/occurred suddenly, at 10:00. Context: occurred at home, occurred while the patient was lying down. Context:. Severity of symptoms: At their worst the symptoms were moderate. Severity of symptoms: At their worst the symptoms were. Patient's baseline: Neuro: alert and fully oriented, Motor: no deficits, Ambulation: walks without assistance, Speech: normal, The patient has a previous history of DM. Current symptoms: paralysis or paresis, of the left cheek, left eye, left jaw, left side of forehead, left zygomatic area and left mandible, that is moderate, that is severe. The patient has not experienced similar symptoms in the past. The patient has not recently seen a physician. Does not treat his DM that was Dx at age 21. Historical: - Allergies: 22:19 No Known Allergies; la1 - Home Meds: 22:19 None [Active]; la1 - PMHx: 22:19 Diabetes - NIDDM; PERIPHERAL NEUROPATHY; la1 - PSHx: 22:19 None; la1 - Immunization history:: Adult Immunizations up to date. - Social history:: Smoking status: Patient/guardian denies using tobacco. - Ebola Screening: : No symptoms or risks identified at this time. ROS: 22:26 Constitutional: Negative for fever, chills, and weight loss, Eyes: Negative for injury, snw pain, redness, and discharge, unable to close left eye ENT: Negative for injury, pain, and discharge, unable to taste Neck: Negative for injury, pain, and swelling, Cardiovascular: Negative for chest pain, palpitations, and edema, Respiratory: Negative for shortness of breath, cough, wheezing, and pleuritic chest pain, Abdomen/GI: Negative for abdominal pain, nausea, vomiting, diarrhea, and constipation, Back: Negative for injury and pain, : Negative for injury, bleeding, discharge, and swelling, MS/Extremity: Negative for injury and deformity, Skin: Negative for injury, rash, and discoloration. 22:26 Neuro: Positive for dizziness, left facial paralysis. Exam: 22:27 Eyes: Pupils equal round and reactive to light, extra-ocular motions intact. Lids and snw lashes normal. Conjunctiva and sclera are non-icteric and not injected. Cornea within normal limits. Periorbital areas with no swelling, redness, or edema. ENT: Nares patent. No nasal discharge, no septal abnormalities noted. Tympanic membranes are normal and external auditory canals are clear. Oropharynx with no redness, swelling, or masses, exudates, or evidence of obstruction, uvula midline. Mucous membranes moist. Neck: Trachea midline, no thyromegaly or masses palpated, and no cervical lymphadenopathy. Supple, full range of motion without nuchal rigidity, or vertebral point tenderness. No Meningismus. Chest/axilla: Normal chest wall appearance and motion. Nontender with no deformity. No lesions are appreciated. Cardiovascular: Regular rate and rhythm with a normal S1 and S2. No gallops, murmurs, or rubs. Normal PMI, no JVD. No pulse deficits. Respiratory: Lungs have equal breath sounds bilaterally, clear to auscultation and percussion. No rales, rhonchi or wheezes noted. No increased work of breathing, no retractions or nasal flaring. Abdomen/GI: Soft, non-tender, with normal bowel sounds. No distension or tympany. No guarding or rebound. No evidence of tenderness throughout. Back: No spinal tenderness. No costovertebral tenderness. Full range of motion. Skin: Warm, dry with normal turgor. Normal color with no rashes, no lesions, and no evidence of cellulitis. MS/ Extremity: Pulses equal, no cyanosis. Neurovascular intact. Full, normal range of motion. Psych: Awake, alert, with orientation to person, place and time. Behavior, mood, and affect are within normal limits. 22:27 Constitutional: The patient appears alert, awake, unable to move left face, + forehead involvement 22:27 Head/face: Noted is paralysis of left face. 22:27 Neuro: Orientation: is normal, Mentation: is normal, Memory: is normal. 22:29 Special observations: only paralysis to left face. snw Vital Signs: 22:19 BP 163 / 108; Pulse 87; Resp 18; Temp 98.1; Pulse Ox 99% on R/A; Weight 113.4 kg; ed1 Height 5 ft. 8 in. (172.72 cm); Pain 0/10; 23:21 BP 159 / 86; Pulse 87; Resp 18; Pulse Ox 95% on R/A; Pain 0/10; ed1 02 00:19 BP 140 / 73; Pulse 89; Resp 16; Pulse Ox 96% on R/A; Pain 0/10; ed1 02 22:19 Body Mass Index 38.01 (113.40 kg, 172.72 cm) ed1 NIH Stroke Scale Scores: 02 22:29 NIHSS Score: 3 snw MDM: 22:16 Patient medically screened. snw 05/31 00:19 Data reviewed: vital signs, nurses notes. Data interpreted: Pulse oximetry: on room air snw is 95 %. Interpretation: acceptable. Counseling: I had a detailed discussion with the patient and/or guardian regarding: the historical points, exam findings, and any diagnostic results supporting the discharge/admit diagnosis, the presence of at least one elevated blood pressure reading (>120/80) during this emergency department visit, lab results, radiology results, the need for outpatient follow up, to return to the emergency department if symptoms worsen or persist or if there are any questions or concerns that arise at home. Special discussion: Based on the history and exam findings, there is no indication for further emergent testing or inpatient evaluation. I discussed with the patient/guardian the need to see the primary care provider for further evaluation of the symptoms. 05/30 22:22 Order name: Basic Metabolic Panel; Complete Time: 23:24 snw 05/30 22:22 Order name: CBC with Diff; Complete Time: 22:45 snw 05/30 22:22 Order name: LFT's; Complete Time: 23:24 snw 05/30 22:22 Order name: Magnesium; Complete Time: 23:24 snw 05/30 22:22 Order name: PT-INR; Complete Time: 22:45 snw 05/30 22:22 Order name: Troponin (emerg Dept Use Only); Complete Time: 23:24 snw 05/30 22:22 Order name: XRAY Chest (1 view) snw 05/30 22:22 Order name: EKG; Complete Time: 22:24 snw 05/30 22:22 Order name: Cardiac monitoring; Complete Time: 22:44 snw 05/30 22:22 Order name: CT Head Brain wo Cont snw 05/30 22:22 Order name: EKG - Nurse/Tech; Complete Time: 22:44 snw 05/30 22:22 Order name: IV Saline Lock; Complete Time: 22:44 snw 05/30 22:22 Order name: Labs collected and sent; Complete Time: 22:44 snw 05/30 22:22 Order name: O2 Per Protocol; Complete Time: 22:44 snw 05/30 22:22 Order name: O2 Sat Monitoring; Complete Time: 22:45 snw 05/30 22:22 Order name: FSBS; Complete Time: 22:25 snw 05/31 00:13 Order name: FSBS; Complete Time: 00:19 snw Administered Medications: 05/30 22:35 Drug: NS 0.9% 1000 ml Route: IV; Rate: 1 bolus; Site: right hand; ed1 23:51 Follow up: IV Status: Completed infusion; IV Intake: 1000ml ed1 22:35 Drug: Acyclovir 800 mg Route: PO; ed1 23:51 Follow up: Response: No adverse reaction ed1 23:50 Drug: Insulin Regular Human 5 units {Co-Signature: paulino (Jacy Hoffmann RN).} Route: IVP; ed1 Site: right hand; 05/31 00:19 Follow up: Response: Blood sugar is lowered ed1 05/30 23:51 Drug: Insulin Regular Human 5 units {Co-Signature: angeline1 (Jacy Hoffmann RN).} Route: Sub-Q; ed1 Site: right lower abdomen; 05/31 00:20 Follow up: Response: Blood sugar is lowered ed1 Point of Care Testing: Blood Glucose: 05/30 22:19 Blood Glucose: 325 mg/dL; ed1 02 00:19 Blood Glucose: 272 mg/dL; ed1 Ranges: Critical Glucose Levels:Adult <50 mg/dl or >400 mg/dl <40 mg/dl or >180 mg/dl Disposition: 01:23 Co-signature as Attending Physician, Sean Flores MD. pkl Disposition: 05/31/18 00:14 Discharged to Home. Impression: Diabetes mellitus due to underlying condition with hyperglycemia, Essential (primary) hypertension, Mckeon's palsy. - Condition is Stable. - Discharge Instructions: Mckeon Palsy, Adult, Diabetes and Sick Day Management, Hypertension, Blood Glucose Monitoring, Adult, Diabetes and Exercise, DASH Eating Plan, Rehydration, Adult, Managing Your Hypertension. - Prescriptions for Artificial Tears - instill 2 drop by OPHTHALMIC route 4 times per day; 1 bottle. Valtrex 1 g Oral Tablet - take 1 tablet by ORAL route every 8 hours for 7 days; 21 tablet. - Work release form, Medication Reconciliation Form, Thank You Letter, Antibiotic Education, Prescription Opioid Use form. - Follow up: Private Physician; When: 2 - 3 days; Reason: Recheck today's complaints, Continuance of care, Re-evaluation by your physician. Follow up: Emergency Department; When: As needed; Reason: Worsening of condition. NIH Stroke Scale - NIH Stroke Score Date: 05/30/2018 Time: 22:29 Total Score = 3 1a. Level of Consciousness (LOC) - 0(Alert) 1b. Level of Consciousness (LOC) (Year \T\ Age) - 0(Both) 1c. LOC Commands (Open \T\ Closes Eyes/Group President) - 0(Both) 2. Best Gaze (Lateral Gaze Paresis) - 0(Normal) 3. Visual Field Loss - 0(No visual loss) 4. Facial Palsy - 3(Complete paralysis) 5a. Left Arm: Motor (10-second hold) - 0(No drift) 5b. Right Arm: Motor (10-second hold) - 0(No drift) 6a. Left Leg: Motor (5-second hold - always test supine) - 0(No drift) 6b. Right Leg: Motor (5-second hold - always test supine) - 0(No drift) 7. Limb Ataxia (finger/nose \T\ heel/medeiros - test with eyes open) - 0(Absent) 8. Sensory Loss (pinprick arms/legs/face) - 0(Normal) 9. Best Language: Aphasia (description/naming/reading) - 0(No aphasia) 10. Dysarthria (speech clarity - read or repeat words) - 0(Normal) 11. Extinction and Inattention (visual/tactile/auditory/spatial/personal) - 0(No abnormality) Initials: snw Signatures: Dispatcher [employer] EDMS Sean Flores MD MD pkl Therrien, Shelly, LABOR ECONOMICS TEACHER-C LABOR ECONOMICS TEACHER-Csnw Sofie Lopez RN RN ed1 Tirso Wilson RN RN la1 Jacy Hoffmann RN lp1 Corrections: (The following items were deleted from the chart) 00:31 00:14 05/31/2018 00:14 Discharged to Home. Impression: Diabetes mellitus due to ed1 underlying condition with hyperglycemia; Essential (primary) hypertension; Mckeon's palsy. Condition is Stable. Forms are Medication Reconciliation Form, Thank You Letter, Antibiotic Education, Prescription Opioid Use. Follow up: Private Physician; When: 2 - 3 days; Reason: Recheck today's complaints, Continuance of care, Re-evaluation by your physician. Follow up: Emergency Department; When: As needed; Reason: Worsening of condition. snw
--- NOTE | 2018-05-31 08:59 | RAD REPORT ---
EXAM DESCRIPTION: RAD - Chest Single View - 05/30/2018 11:13 pm CLINICAL HISTORY: Left-sided facial droop, shortness of breath COMPARISON: October 18, 2017 TECHNIQUE: AP portable chest image was obtained 2310 hours . FINDINGS: Lung volumes are low but otherwise clear. Heart and vasculature are normal. No measurable pleural effusion and no pneumothorax. No acute bony abnormality seen. No acute aortic findings suspec brad. IMPRESSION: No acute cardiopulmonary process. No significant interval change.
--- NOTE | 2018-05-31 10:53 | EKG ---
Test Date: 2018-05-30 Test Time: 22:33:12 Lawyer Criminal: ADRIANE MEASUREMENT RESULTS: Intervals: Rate: 80 HI: 116 QRSD: 90 QT: 362 QTc: 417 Petroleum: P: 39 HI: 116 QRS: -17 T: 21 INTERPRETIVE STATEMENTS: Normal sinus rhythm Normal ECG Compared to ECG 10/18/2017 23:30:05 Sinus tachycardia no longer present Electronically Signed On 05-31-18 10:52:40 INSURANCE JOB TITLES by Hammad Choudhury
--- NOTE | 2018-06-01 15:40 | RAD REPORT ---
EXAM DESCRIPTION: CT - Head Brain Wo Cont - 05/31/2018 1:56 am CLINICAL HISTORY: 43 years Male DIZZINESS COMPARISON: None. TECHNIQUE: Contiguous axial images of the brain were obtained without the administration of intravenous contrast . This exam was performed according to our departmental dose-optimization program, which includes aut omated exposure control, adjustment of the mA and/or kV according to patient size and/or less of iter ative reconstruction technique. FINDINGS: Brain: No acute intracranial hemorrhage. No acute territorial infarct. No extra-axial von ection. No mass effect or herniation. Ventricles: Normal in size and configuration. Probable right choroidal fissure versus perimesencephal ic cyst (Series 201, image 7). Globes and orbits: No acute abnormality. Bones: No acute osseous finding. Paranasal sinuses: Paranasal sinuses are clear. Frontal sinuses are hypoplastic. Mastoid air cells: Well pneumatized. Soft tissues: Within normal limits. Insurance Processing Clerk view shows no additional significant finding. IMPRESSION: No acute intracranial abnormality. Electronically signed by Magdy Suazo DO 05/30/2018 11:50 PM BUSINESS QUALITY ASSURANCE ANALYST Due to temporary technical issues with the PACS/Fluency reporting system, reports are being signed by the in house radiologist as a courtesy to ensure prompt reporting. The interpreting radiologist is f ully responsible for the content of the report.
== END 2018-05-31 00:31 | disposition home or self-care (01) ==
LOC: ER 22:11
DX: E11.65 Type 2 diabetes mellitus with hyperglycemia (principal); E11.42 Type 2 diabetes mellitus with diabetic polyneuropathy; G51.0 Bell's palsy; I10 Essential (primary) hypertension
CPT/HCPCS: 36415; 70450; 71045; 80048; 80076; 82962; 83735; 84484; 85025; 85610; 93005; 96361; 96372; 96374; 99284; J7030

== ENCOUNTER 2019-05-02 10:37 | Emergency (ER) | payer SELFPAY ==
[2019-05-02] MEDS ORDERED: NA CHLORIDE 0.9% 1,000 ML ONE (12:11)
[2019-05-02 12:17] LABS: Absolute Lymphocytes (CBC) 1.3 K/uL (0.7-4.9); Basophils % 0.8 % (0-1.3); Lymphocytes % 16.1 % (15.3-44.8); MPV 7.9 fL (7.6-11.3)
[2019-05-02 12:19] LABS: Protime INR 0.86
[2019-05-02 12:39] LABS: ALT/SGPT 40 U/L (12-78); AST/SGOT 12 U/L (15-37); Albumin 2.6 g/dL (3.4-5.0); Alkaline Phosphatase 202 U/L (45-117); BUN Blood Urea Nitrogen 21 mg/dL (7-18); Bicarbonate 26 mmol/L (21-32); Bilirubin Direct < 0.1 mg/dL (0-0.2); Bilirubin Total 0.3 mg/dL (0.2-1.0); Glucose Level 619 mg/dL (74-106); NT PRO-BNP 181 pg/mL (<125); Potassium 4.5 mmol/L (3.5-5.1); Protein, Total 6.9 g/dL (6.4-8.2); Sodium Level 133 mmol/L (136-145)
[2019-05-02] MEDS ORDERED: INSULIN -REGULAR HUMAN 50 UNIT/0.5 ML ML ONE (12:51)
[2019-05-02 12:52] LABS: Urine Blood 1+ (NEG); Urine Glucose 2+ (NEG); Urine Protein 3+ (NEG)
--- NOTE | 2019-05-02 13:47 | EDPHYS ---
Physician Documentation [facility] Name: Chava Pate Age: 44 yrs Sex: Male : 1975 Arrival Date: 05/02/2019 Time: 10:40 Bed 14 Private MD: ED Physician Oscar Ruiz HPI: 05/02 12:34 This 44 yrs old Male presents to ER via Ambulatory with complaints of Numbness kb - Feet, Leg Pain. 12:34 The patient or guardian reports hyperglycemia, polyuria, neuropathy in both feet that kb was potentially precipitated by no particular event. Onset: The symptoms/episode began/occurred 3 month(s) ago. Associated signs and symptoms: Pertinent positives: polyuria. Current symptoms: In the emergency department the patient's symptoms are unchanged from the initial presentation. The patient has experienced similar episodes in the past. The patient has not recently seen a physician. Pt reports he was diagnosed with diabetes 18 years ago and has been taking metformin on and off. States he stopped taking it a while back because he didn't want to take it anymore. States he has to urinate every 2 hours, has neuropathy in his feet and knows it is from his sugar being high. He doesn't follow a diabetic diet and does not check his sugar. States he came in today because he finally decided it was time to do something about it.. Historical: - Allergies: 10:44 No Known Allergies; aj1 - Home Meds: 10:44 None [Active]; aj1 - PMHx: 10:44 Diabetes - NIDDM; PERIPHERAL NEUROPATHY; aj1 - PSHx: 10:44 None; aj1 - Immunization history:: Flu vaccine is not up to date. - Social history:: Smoking status: Patient/guardian denies using tobacco. - Ebola Screening: : Patient denies travel to an Ebola-affected area in the 21 days before illness onset. ROS: 11:15 Constitutional: Negative for fever, chills, and weight loss, ENT: Negative for injury, kb pain, and discharge, Neck: Negative for injury, pain, and swelling, Cardiovascular: Negative for chest pain, palpitations, and edema, Respiratory: Negative for shortness of breath, cough, wheezing, and pleuritic chest pain, Abdomen/GI: Negative for abdominal pain, nausea, vomiting, diarrhea, and constipation, Back: Negative for injury and pain, MS/Extremity: Negative for injury and deformity, Skin: Negative for injury, rash, and discoloration. 11:15 : Positive for urinary frequency. 11:15 Neuro: Positive for neuropathy in bilateral feet. Exam: 11:16 Constitutional: This is a well developed, well nourished patient who is awake, alert, kb and in no acute distress. Head/Face: Normocephalic, atraumatic. ENT: Nares patent. No nasal discharge, no septal abnormalities noted. Tympanic membranes are normal and external auditory canals are clear. Oropharynx with no redness, swelling, or masses, exudates, or evidence of obstruction, uvula midline. Mucous membranes moist. Neck: Trachea midline, no thyromegaly or masses palpated, and no cervical lymphadenopathy. Supple, full range of motion without nuchal rigidity, or vertebral point tenderness. No Meningismus. Chest/axilla: Normal chest wall appearance and motion. Nontender with no deformity. No lesions are appreciated. Cardiovascular: Regular rate and rhythm with a normal S1 and S2. No gallops, murmurs, or rubs. Normal PMI, no JVD. No pulse deficits. Respiratory: Lungs have equal breath sounds bilaterally, clear to auscultation and percussion. No rales, rhonchi or wheezes noted. No increased work of breathing, no retractions or nasal flaring. Abdomen/GI: Soft, non-tender, with normal bowel sounds. No distension or tympany. No guarding or rebound. No evidence of tenderness throughout. Back: No spinal tenderness. No costovertebral tenderness. Full range of motion. Skin: Warm, dry with normal turgor. Normal color with no rashes, no lesions, and no evidence of cellulitis. MS/ Extremity: Pulses equal, no cyanosis. Neurovascular intact. Full, normal range of motion. Neuro: Awake and alert, GCS 15, oriented to person, place, time, and situation. Cranial nerves II-XII grossly intact. Motor strength 5/5 in all extremities. Sensory grossly intact. Cerebellar exam normal. Normal gait. Vital Signs: 10:44 BP 178 / 103; Pulse 96; Resp 18; Temp 98.3; Pulse Ox 99% on R/A; Weight 102.06 kg (R); aj1 Height 5 ft. 8 in. (172.72 cm) (R); Pain 4/10; 11:56 BP 145 / 80; Pulse 96; Resp 22; Pulse Ox 95% on R/A; tw2 12:55 BP 125 / 98; Pulse 91; Resp 22; Pulse Ox 97% on R/A; tw2 13:24 BP 131 / 88; Pulse 95; Resp 20; Pulse Ox 98% on R/A; tw2 14:03 BP 140 / 91; Pulse 91; Resp 17; Pulse Ox 96% on R/A; tw2 10:44 Body Mass Index 34.21 (102.06 kg, 172.72 cm) aj1 MDM: 10:55 Patient medically screened. kb 11:14 Data reviewed: vital signs, nurses notes. Data interpreted: Pulse oximetry: on room air kb is 99 %. Interpretation: normal. 13:45 Counseling: I had a detailed discussion with the patient and/or guardian regarding: the kb historical points, exam findings, and any diagnostic results supporting the discharge/admit diagnosis, lab results, the need for outpatient follow up, a family practitioner, to return to the emergency department if symptoms worsen or persist or if there are any questions or concerns that arise at home. 05/02 11:02 Order name: Glucose, Ancillary Testing; Complete Time: 11:03 EDMS 05/02 11:02 Order name: Glucose; Complete Time: 11:32 tw2 05/02 11:54 Order name: Basic Metabolic Panel; Complete Time: 12:44 kb 05/02 11:54 Order name: CBC with Diff; Complete Time: 12:19 kb 05/02 11:54 Order name: LFT's; Complete Time: 12:44 kb 05/02 11:54 Order name: Magnesium; Complete Time: 12:44 kb 05/02 11:54 Order name: NT PRO-BNP; Complete Time: 12:44 kb 05/02 11:54 Order name: PT-INR; Complete Time: 12:22 kb 05/02 11:54 Order name: EKG; Complete Time: 11:54 kb 05/02 11:54 Order name: Cardiac monitoring; Complete Time: 11:57 kb 05/02 12:18 Order name: Urine Dipstick--Ancillary (enter results); Complete Time: 12:53 ms 05/02 13:35 Order name: Glucose, Ancillary Testing; Complete Time: 13:43 EDMS 05/02 11:54 Order name: EKG - Nurse/Tech; Complete Time: 12:17 kb 05/02 11:54 Order name: IV Saline Lock; Complete Time: 12:00 kb 05/02 11:54 Order name: Labs collected and sent; Complete Time: 11:57 kb 05/02 11:54 Order name: O2 Per Protocol; Complete Time: 11:57 kb 05/02 11:54 Order name: O2 Sat Monitoring; Complete Time: 11:57 kb Administered Medications: 12:13 Drug: NS 0.9% 1000 ml Route: IV; Rate: 1000 ml; Site: right forearm; tw2 12:52 Follow up: Response: No adverse reaction; IV Status: Completed infusion; IV Intake: tw2 1000ml 12:51 Drug: Insulin Regular Human 10 units {Co-Signature: rb1 (Chelsea Harris RN).} Route: tw2 IVP; Site: right forearm; 14:04 Follow up: Response: No adverse reaction; Blood sugar is lowered tw2 Point of Care Testing: Blood Glucose: 10:49 Blood Glucose: High (>450 mg/dL); aj1 13:23 Blood Glucose: 372 mg/dL; tw2 Ranges: Critical Glucose Levels:Adult <50 mg/dl or >400 mg/dl <40 mg/dl or >180 mg/dl Disposition: 16:20 Co-signature as Attending Physician, Oscar Ruiz MD. rn Disposition: 05/02/19 13:46 Discharged to Home. Impression: Hyperglycemia, unspecified, Diabetes mellitus due to underlying condition with diabetic neuropathy, unspecified. - Condition is Stable. - Discharge Instructions: Peripheral Neuropathy, Blood Glucose Monitoring, Adult, Hyperglycemia, Stwk-on-Xocx, Type 2 Diabetes Mellitus, Diagnosis, Adult, Imwo-al-Asen. - Prescriptions for Metformin 500 mg Oral Tablet - take 1 tablet by ORAL route 2 times per day . take 1 tablet with morning meals AND evening meals; 40 tablet. Neurontin 300 mg Oral Capsule - take 1 capsule by ORAL route At bedtime; 20 capsule. - Medication Reconciliation Form, Thank You Letter, Antibiotic Education, Prescription Opioid Use, Work release form form. - Follow up: Emergency Department; When: As needed; Reason: Worsening of condition. Follow up: Private Physician; When: 2 - 3 days; Reason: Recheck today's complaints, Continuance of care, Re-evaluation by your physician. Signatures: Dispatcher [employer] EDElizabeth Dunne, ADVERTISING INTERN-C ADVERTISING INTERN-Ckb Mikaela Arana, RN RN aj1 Oscar Ruiz MD MD rn Wise, Tara, RN RN tw2 Chelsea Harris RN rb1 Corrections: (The following items were deleted from the chart) 14:05 13:46 05/02/2019 13:46 Discharged to Home. Impression: Hyperglycemia, unspecified; tw2 Diabetes mellitus due to underlying condition with diabetic neuropathy, unspecified. Condition is Stable. Forms are Medication Reconciliation Form, Thank You Letter, Antibiotic Education, Prescription Opioid Use. Follow up: Emergency Department; When: As needed; Reason: Worsening of condition. Follow up: Private Physician; When: 2 - 3 days; Reason: Recheck today's complaints, Continuance of care, Re-evaluation by your physician. kb
--- NOTE | 2019-05-02 13:47 | ER ---
Nurse's Notes [facility] Name: Chava Pate Age: 44 yrs Sex: Male : 1975 Arrival Date: 05/02/2019 Time: 10:40 Bed 14 Private MD: Diagnosis: Hyperglycemia, unspecified;Diabetes mellitus due to underlying condition with diabetic neuropathy, unspecified Presentation: 05/02 10:41 Presenting complaint: Patient states: "For a while my feet have been numbing, lets say aj1 3 months, but I am a diabetic and Im not on any meds and my blood sugar is probably high. The last few weeks my feet have been hurting really bad even when I'm not wearing shoes. I can walk, but I can't stand for a long time". Transition of care: patient was not received from another setting of care. Onset of symptoms was 2018. Risk Assessment: Do you want to hurt yourself or someone else? Patient reports no desire to harm self or others. Initial Sepsis Screen: Does the patient meet any 2 criteria? HR > 90 bpm. No. Patient's initial sepsis screen is negative. Does the patient have a suspected source of infection? No. Patient's initial sepsis screen is negative. Care prior to arrival: None. 10:41 Method Of Arrival: Ambulatory aj1 10:41 Acuity: EDINSON 2 aj1 Triage Assessment: 10:44 General: Appears in no apparent distress. uncomfortable, Behavior is calm, cooperative, aj1 appropriate for age. Pain: Complains of pain in right foot and left foot Pain currently is 4 out of 10 on a pain scale. Neuro: Level of Consciousness is awake, alert, obeys commands. Cardiovascular: Patient's skin is warm and dry. Respiratory: Airway is patent Respiratory effort is even, unlabored, Respiratory pattern is regular, symmetrical. Historical: - Allergies: 10:44 No Known Allergies; aj1 - Home Meds: 10:44 None [Active]; aj1 - PMHx: 10:44 Diabetes - NIDDM; PERIPHERAL NEUROPATHY; aj1 - PSHx: 10:44 None; aj1 - Immunization history:: Flu vaccine is not up to date. - Social history:: Smoking status: Patient/guardian denies using tobacco. - Ebola Screening: : Patient denies travel to an Ebola-affected area in the 21 days before illness onset. Screenin:52 Abuse screen: Denies threats or abuse. Nutritional screening: No deficits noted. tw2 Tuberculosis screening: No symptoms or risk factors identified. Fall Risk None identified. Assessment: 10:55 General: Appears in no apparent distress. Behavior is calm, cooperative, appropriate tw2 for age. Neuro: Level of Consciousness is awake, alert, obeys commands, Oriented to person, place, time, situation. Cardiovascular: Heart tones S1 S2 Patient's skin is warm and dry. Respiratory: Airway is patent Respiratory effort is even, unlabored, Respiratory pattern is regular, symmetrical, Breath sounds are clear bilaterally. GI: No signs and/or symptoms were reported involving the gastrointestinal system. Abdomen is flat, Bowel sounds present X 4 quads. : Reports urinary frequency. EENT: No signs and/or symptoms were reported regarding the EENT system. Derm: No signs and/or symptoms reported regarding the dermatologic system. Musculoskeletal: Circulation, motion, and sensation intact. Range of motion: intact in all extremities, Reports numbness in left foot and right foot \\T\\ tingling in b/l feet. 11:55 Reassessment: Patient appears in no apparent distress at this time. No changes from tw2 previously documented assessment. Patient and/or family updated on plan of care and expected duration. Pain level reassessed. Patient is alert, oriented x 3, equal unlabored respirations, skin warm/dry/pink. 12:55 Reassessment: Patient appears in no apparent distress at this time. No changes from tw2 previously documented assessment. Patient and/or family updated on plan of care and expected duration. Pain level reassessed. Patient is alert, oriented x 3, equal unlabored respirations, skin warm/dry/pink. 13:24 Reassessment: Patient appears in no apparent distress at this time. No changes from tw2 previously documented assessment. Patient and/or family updated on plan of care and expected duration. Pain level reassessed. Patient is alert, oriented x 3, equal unlabored respirations, skin warm/dry/pink. 14:03 Reassessment: Patient appears in no apparent distress at this time. No changes from tw2 previously documented assessment. Patient and/or family updated on plan of care and expected duration. Pain level reassessed. Patient is alert, oriented x 3, equal unlabored respirations, skin warm/dry/pink. Vital Signs: 10:44 BP 178 / 103; Pulse 96; Resp 18; Temp 98.3; Pulse Ox 99% on R/A; Weight 102.06 kg (R); aj1 Height 5 ft. 8 in. (172.72 cm) (R); Pain 4/10; 11:56 BP 145 / 80; Pulse 96; Resp 22; Pulse Ox 95% on R/A; tw2 12:55 BP 125 / 98; Pulse 91; Resp 22; Pulse Ox 97% on R/A; tw2 13:24 BP 131 / 88; Pulse 95; Resp 20; Pulse Ox 98% on R/A; tw2 14:03 BP 140 / 91; Pulse 91; Resp 17; Pulse Ox 96% on R/A; tw2 10:44 Body Mass Index 34.21 (102.06 kg, 172.72 cm) aj1 ED Course: 10:40 Patient arrived in ED. as 10:44 Triage completed. aj1 10:45 Arm band placed on. Antipyretics given from triage as ordered by an ER provider. aj1 10:46 Elizabeth Fofana FNP-C is PHCP. kb 10:46 Oscar Ruiz MD is Attending Physician. kb 10:51 Penny Salcedo, MARCELA is Primary Nurse. tw2 10:51 Bed in low position. Call light in reach. surveillance system monitor on. Pulse ox on. NIBP on. tw2 11:00 Inserted saline lock: 20 gauge in right forearm, using aseptic technique. Blood tw2 collected. 14:03 No provider procedures requiring assistance completed. IV discontinued, intact, tw2 bleeding controlled, No redness/swelling at site. Pressure dressing applied. Administered Medications: 12:13 Drug: NS 0.9% 1000 ml Route: IV; Rate: 1000 ml; Site: right forearm; tw2 12:52 Follow up: Response: No adverse reaction; IV Status: Completed infusion; IV Intake: tw2 1000ml 12:51 Drug: Insulin Regular Human 10 units {Co-Signature: rb1 (Chelsea Harris RN).} Route: tw2 IVP; Site: right forearm; 14:04 Follow up: Response: No adverse reaction; Blood sugar is lowered tw2 Point of Care Testing: Blood Glucose: 10:49 Blood Glucose: High (>450 mg/dL); aj1 13:23 Blood Glucose: 372 mg/dL; tw2 Ranges: Intake: 12:52 IV: 1000ml; Total: 1000ml. tw2 Outcome: 13:46 Discharge ordered by . bj 14:03 Discharged to home ambulatory. tw2 14:03 Condition: stable 14:03 Discharge instructions given to patient, Instructed on discharge instructions, follow up and referral plans. medication usage, Demonstrated understanding of instructions, follow-up care, medications, Prescriptions given X 2. 14:05 Patient left the ED. tw2 Signatures: Elizabeth Fofana, FRUIT II FARMWORKER-C FRUIT II FARMWORKER-CkMikaela Warren, RN RN aj1 Janet Dias Tara, RN RN tw2 Chelsea Harris RN rb1 Corrections: (The following items were deleted from the chart) 10:45 10:44 Arm band placed on Patient placed in waiting room, [facility] aj 10:50 10:41 Acuity: EDINSON 3 aj aj
[2019-05-02 14:48] VITALS: TEMP 98.3
[2019-05-02 14:53] VITALS: BP 140/91; O2SAT 96
--- NOTE | 2019-05-03 10:26 | EKG ---
Test Date: 2019-05-02 Test Time: 12:07:10 Lead Instructor/Flight Attendant: MARU MEASUREMENT RESULTS: Intervals: Rate: 93 FL: 114 QRSD: 90 QT: 356 QTc: 442 [place]: P: 46 FL: 114 QRS: -23 T: 7 INTERPRETIVE STATEMENTS: Normal sinus rhythm Normal ECG Compared to ECG 05/30/2018 22:33:12 No significant changes Electronically Signed On 05-03-19 10:25:51 TEST PULLER by Hammad Choudhury
== END 2019-05-02 14:05 | disposition home or self-care (01) ==
LOC: ER 10:37
DX: E11.65 Type 2 diabetes mellitus with hyperglycemia (principal); E11.40 Type 2 diabetes mellitus with diabetic neuropathy, unspecified; Z79.4 Long term (current) use of insulin
CPT/HCPCS: 36415; 80048; 80076; 81003; 82947; 83735; 83880; 85025; 85610; 93005; 96361; 96374; 99284; J7030

== ENCOUNTER 2019-05-11 16:43 | Emergency (ER) | payer SELFPAY ==
[2019-05-11] MEDS ORDERED: ALBUTEROL 2.5 MG/3 ML NEB SOL ONE (17:32)
[2019-05-11] MEDS ORDERED: AZITHROMYCIN 250 MG TAB ONE (17:32)
--- NOTE | 2019-05-11 18:03 | RAD REPORT ---
EXAM DESCRIPTION: RAD - Chest Pa And Lat (2 Views) - 05/11/2019 5:57 pm CLINICAL HISTORY: CONGESTION Chest pain. COMPARISON: Chest Single View dated 05/30/2018; Chest Single View dated 10/18/2017 FINDINGS: Mild linear opacity is seen in the left retrocardiac region. This may represent atelectasi s or developing infiltrate/ pneumonia. The heart is normal in size. No displaced fractures.
--- NOTE | 2019-05-11 18:26 | ER ---
Nurse's Notes [facility] Name: Chava Pate Age: 44 yrs Sex: Male : 1975 Arrival Date: 05/11/2019 Time: 16:45 Bed 13 Private MD: Ramon Romo T Diagnosis: Influenza due to other identified influenza virus;Streptococcal pharyngitis Presentation: 05/11 17:14 Presenting complaint: Patient states: weakness and flu like symptoms for a couple of dm5 days, dry cough when taking a deep breath. Transition of care: patient was not received from another setting of care. 17:14 Method Of Arrival: Ambulatory dm5 17:16 Onset of symptoms was May 06, 2019. Care prior to arrival: None. dm5 17:16 Acuity: EDINSON 3 dm5 17:37 Risk Assessment: Do you want to hurt yourself or someone else? Patient reports no ca1 desire to harm self or others. Initial Sepsis Screen: Does the patient meet any 2 criteria? No. Patient's initial sepsis screen is negative. Does the patient have a suspected source of infection? No. Patient's initial sepsis screen is negative. Historical: - Allergies: 17:19 No Known Allergies; dm5 - Home Meds: 17:19 Metformin Oral [Active]; neuropathy medications [Active]; dm5 - PMHx: 17:19 Diabetes - NIDDM; PERIPHERAL NEUROPATHY; dm5 - PSHx: 17:19 None; dm5 - Immunization history:: Flu vaccine is not up to date. It has been more than one year since last vaccine. - Social history:: Patient uses Patient/guardian denies using alcohol, street drugs, The patient lives with family, Smoking status: Patient denies any tobacco usage or history of. - Ebola Screening: : Patient negative for fever greater than or equal to 101.5 degrees Fahrenheit, and additional compatible Ebola Virus Disease symptoms Patient denies exposure to infectious person Patient denies travel to an Ebola-affected area in the 21 days before illness onset No symptoms or risks identified at this time. - Family history:: not pertinent. Screenin:34 Abuse screen: Denies threats or abuse. Denies injuries from another. Nutritional ca1 screening: No deficits noted. Tuberculosis screening: No symptoms or risk factors identified. Fall Risk None identified. Assessment: 17:34 General: Appears in no apparent distress. comfortable, Behavior is calm, cooperative, ca1 appropriate for age, Reports chills for 2-3 days. Pain: Denies pain. Neuro: Level of Consciousness is awake, alert, obeys commands, Oriented to person, place, time, situation, Appropriate for age. Cardiovascular: Heart tones S1 S2 present Capillary refill < 3 seconds Patient's skin is warm and dry. Respiratory: Reports cough that is since 3 days ago Airway is patent Respiratory effort is even, unlabored, Respiratory pattern is regular, symmetrical, Breath sounds are clear bilaterally. GI: Abdomen is round non-distended, Bowel sounds present X 4 quads. Abd is soft and non tender X 4 quads. : No deficits noted. No signs and/or symptoms were reported regarding the genitourinary system. EENT: Reports nasal congestion. Derm: Skin is intact, is healthy with good turgor, Skin is pink, warm \T\ dry. Musculoskeletal: Circulation, motion, and sensation intact. Capillary refill < 3 seconds, Range of motion: intact in all extremities. 18:35 Reassessment: Patient appears in no apparent distress at this time. Patient is alert, ca1 oriented x 3, equal unlabored respirations, skin warm/dry/pink. Vital Signs: 17:19 BP 154 / 91; Pulse 104; Resp 20; Temp 98.7; Pulse Ox 99% on R/A; Weight 102.47 kg; dm5 Height 5 ft. 8 in. (172.72 cm); Pain 5/10; 18:35 BP 145 / 95; Pulse 102; Resp 18 S; Pulse Ox 96% on R/A; ca1 17:19 Body Mass Index 34.35 (102.47 kg, 172.72 cm) dm5 ED Course: 16:45 Patient arrived in ED. rg4 16:46 Ramon Romo MD is Private Physician. rg4 17:12 Autumn Velasquez MD is Attending Physician. ma2 17:16 Triage completed. dm5 17:19 Arm band placed on right wrist. Patient placed in an exam room. dm5 17:26 Daysi Barbosa RN is Primary Nurse. ca1 17:27 Strep Sent. ca1 17:34 Patient has correct armband on for positive identification. Bed in low position. Call ca1 light in reach. Side rails up X 1. Pulse ox on. NIBP on. Warm blanket given. 17:34 No provider procedures requiring assistance completed. ca1 17:53 Chest Pa And Lat (2 Views) XRAY In Process Unspecified. EDMS 18:48 Patient did not have IV access during this emergency room visit. ca1 Administered Medications: 17:30 Drug: AZITHromycin 500 mg Route: PO; ca1 18:49 Follow up: Response: No adverse reaction ca1 17:31 Drug: Albuterol 1.25 mg Route: Inhalation; ca1 18:49 Follow up: Response: No adverse reaction; Marked relief of symptoms ca1 Outcome: 18:26 Discharge ordered by MD. issa 18:54 Discharged to home ambulatory. ca1 18:54 Condition: stable 18:54 Discharge instructions given to patient, Instructed on discharge instructions, follow up and referral plans. medication usage, Demonstrated understanding of instructions, follow-up care, medications, Prescriptions given X 4. 18:54 Patient left the ED. ca1 Signatures: Dispatcher [employer] Roberta Corral, RN RN [email or web address] Lucia Briceño rg4 Autumn Velasquez MD MD ma2 Daysi Barbosa RN RN ca1
--- NOTE | 2019-05-11 18:27 | EDPHYS ---
Physician Documentation [facility] Name: Chava Pate Age: 44 yrs Sex: Male : 1975 Arrival Date: 05/11/2019 Time: 16:45 Bed 13 Private MD: Ramon Romo T ED Physician Autumn Velasquez HPI: 05/11 18:25 This 44 yrs old Male presents to ER via Ambulatory with complaints of ma2 Weakness, Breathing Difficulty. 18:25 Onset: The symptoms/episode began/occurred gradually, 2 day(s) ago. Associated signs ma2 and symptoms: Pertinent negatives: fever, neck stiffness, seizure, syncope. Severity of symptoms: At their worst the symptoms were mild in the emergency department the symptoms are unchanged. The patient has not experienced similar symptoms in the past. Historical: - Allergies: 17:19 No Known Allergies; dm5 - Home Meds: 17:19 Metformin Oral [Active]; neuropathy medications [Active]; dm5 - PMHx: 17:19 Diabetes - NIDDM; PERIPHERAL NEUROPATHY; dm5 - PSHx: 17:19 None; dm5 - Immunization history:: Flu vaccine is not up to date. It has been more than one year since last vaccine. - Social history:: Patient uses Patient/guardian denies using alcohol, street drugs, The patient lives with family, Smoking status: Patient denies any tobacco usage or history of. - Ebola Screening: : Patient negative for fever greater than or equal to 101.5 degrees Fahrenheit, and additional compatible Ebola Virus Disease symptoms Patient denies exposure to infectious person Patient denies travel to an Ebola-affected area in the 21 days before illness onset No symptoms or risks identified at this time. - Family history:: not pertinent. ROS: 18:25 Constitutional: Negative for fever, chills, and weight loss. ma2 18:25 All other systems are negative. Exam: 18:25 Constitutional: This is a well developed, well nourished patient who is awake, alert, ma2 and in no acute distress. Head/Face: Normocephalic, atraumatic. Eyes: Pupils equal round and reactive to light, extra-ocular motions intact. Lids and lashes normal. Conjunctiva and sclera are non-icteric and not injected. Cornea within normal limits. Periorbital areas with no swelling, redness, or edema. ENT: Nares patent. No nasal discharge, no septal abnormalities noted. Tympanic membranes are normal and external auditory canals are clear. Oropharynx with no redness, swelling, or masses, exudates, or evidence of obstruction, uvula midline. Mucous membranes moist. Neck: Trachea midline, no thyromegaly or masses palpated, and no cervical lymphadenopathy. Supple, full range of motion without nuchal rigidity, or vertebral point tenderness. No Meningismus. Chest/axilla: Normal chest wall appearance and motion. Nontender with no deformity. No lesions are appreciated. Cardiovascular: Regular rate and rhythm with a normal S1 and S2. No gallops, murmurs, or rubs. Normal PMI, no JVD. No pulse deficits. Respiratory: Lungs have equal breath sounds bilaterally, clear to auscultation and percussion. No rales, rhonchi or wheezes noted. No increased work of breathing, no retractions or nasal flaring. Abdomen/GI: Soft, non-tender, with normal bowel sounds. No distension or tympany. No guarding or rebound. No evidence of tenderness throughout. Neuro: Awake and alert, GCS 15, oriented to person, place, time, and situation. Cranial nerves II-XII grossly intact. Motor strength 5/5 in all extremities. Sensory grossly intact. Cerebellar exam normal. Normal gait. Vital Signs: 17:19 BP 154 / 91; Pulse 104; Resp 20; Temp 98.7; Pulse Ox 99% on R/A; Weight 102.47 kg; dm5 Height 5 ft. 8 in. (172.72 cm); Pain 5/10; 18:35 BP 145 / 95; Pulse 102; Resp 18 S; Pulse Ox 96% on R/A; ca1 17:19 Body Mass Index 34.35 (102.47 kg, 172.72 cm) dm5 MDM: 17:12 Patient medically screened. ma2 18:25 Data reviewed: vital signs, nurses notes, EMS record. Counseling: I had a detailed ma2 discussion with the patient and/or guardian regarding: the historical points, exam findings, and any diagnostic results supporting the discharge/admit diagnosis, the presence of at least one elevated blood pressure reading (>120/80) during this emergency department visit. Counseling: I had a detailed discussion with the patient and/or guardian regarding: the need for outpatient follow up. Response to treatment: the patient's symptoms have resolved after treatment. 05/11 17:17 Order name: Flu; Complete Time: 18: ma2 05/11 17:17 Order name: Strep; Complete Time: 18: ma2 05/11 17:17 Order name: Chest Pa And Lat (2 Views) XRAY; Complete Time: 18: ma2 Administered Medications: 17:30 Drug: AZITHromycin 500 mg Route: PO; ca1 18:49 Follow up: Response: No adverse reaction ca1 17:31 Drug: Albuterol 1.25 mg Route: Inhalation; ca1 18:49 Follow up: Response: No adverse reaction; Marked relief of symptoms ca1 Disposition: 05/11/19 18:26 Discharged to Home. Impression: Influenza due to other identified influenza virus, Streptococcal pharyngitis. - Condition is Stable. - Discharge Instructions: Influenza, Adult, Strep Throat, [id number]. - Prescriptions for Zithromax Z- Cameron 250 mg Oral Tablet - take 1 tablet by ORAL route as directed for 5 days Day 1 - take two (2) tablets one time. Day 2, 3, 4 , 5 take one (1) tablet once daily.; 6 tablet. Medrol (Cameron) 4 mg Oral Tablets, Dose Pack - take 1 tablet by ORAL route as directed - follow package instructions; 1 packet. Albuterol Sulfate 90 mcg/actuation - inhale 1-2 puff by INHALATION route every 4-6 hours; 1 Inhaler. Tamiflu 75 mg Oral Capsule - take 1 tablet by ORAL route every 12 hours for 5 days; 10 tablet. - Medication Reconciliation Form, Thank You Letter, Antibiotic Education, Prescription Opioid Use, Work release form form. - Follow up: Private Physician; When: Tomorrow; Reason: If symptoms return, Continuance of care. Signatures: Dispatcher [employer] Roberta Corral RN RN dm5 Autumn Velasquez MD MD ma2 Daysi Barbosa RN RN ca1 Corrections: (The following items were deleted from the chart) 18:54 18:26 05/11/2019 18:26 Discharged to Home. Impression: Influenza due to other ca1 identified influenza virus; Streptococcal pharyngitis. Condition is Stable. Prescriptions for Zithromax Z-Cameron 250 mg Oral Tablet - take 1 tablet by ORAL route as directed for 5 days Day 1 - take two (2) tablets one time. Day 2, 3, 4 , 5 take one (1) tablet once daily.; 6 tablet, Medrol (Cameron) 4 mg Oral Tablets, Dose Pack - take 1 tablet by ORAL route as directed - follow package instructions; 1 packet, Albuterol Sulfate 90 mcg/actuation - inhale 1-2 puff by INHALATION route every 4-6 hours; 1 Inhaler. and Forms are Medication Reconciliation Form, Thank You Letter, Antibiotic Education, Prescription Opioid Use. Follow up: Private Physician; When: Tomorrow; Reason: If symptoms return, Continuance of care. ma2
[2019-05-12 09:07] VITALS: TEMP 98.7
[2019-05-12 09:09] VITALS: BP 145/95; O2SAT 96
== END 2019-05-11 18:54 | disposition home or self-care (01) ==
LOC: ER 16:43
DX: J10.89 Influenza due to other identified influenza virus with other manifestations (principal); J02.0 Streptococcal pharyngitis; E11.42 Type 2 diabetes mellitus with diabetic polyneuropathy
CPT/HCPCS: 71046; 87081; 87804; 99284

== ENCOUNTER 2019-09-11 21:27 | Emergency (ER) | payer SELFPAY ==
[2019-09-11 23:27] LABS: Absolute Lymphocytes (CBC) 1.9 K/uL (0.7-4.9); Basophils % 1.4 % (0-1.3); Hematocrit 40.9 % (39.6-49.0); Lymphocytes % 20.5 % (15.3-44.8); MPV 8.1 fL (7.6-11.3); RBC Red Blood Cell Count 5.15 M/uL (4.33-5.43)
[2019-09-11] MEDS ORDERED: NA CHLORIDE 0.9% 500 ML ONE (23:32)
[2019-09-11 23:53] LABS: Urine Blood 1+ (NEG); Urine Glucose 2+ (NEG); Urine Protein 3+ (NEG); Urine Specific Gravity 1.015 (1.005-1.030); Urine pH 5.5 (5.0-7.0)
[2019-09-11 23:55] LABS: ALT/SGPT 32 U/L (12-78); AST/SGOT 13 U/L (15-37); Albumin 2.7 g/dL (3.4-5.0); Alkaline Phosphatase 206 U/L (45-117); BUN Blood Urea Nitrogen 30 mg/dL (7-18); Bicarbonate 22 mmol/L (21-32); Bilirubin Direct < 0.1 mg/dL (0-0.2); Bilirubin Total 0.2 mg/dL (0.2-1.0); Magnesium 1.9 mg/dL (1.8-2.4); NT PRO-BNP 136 pg/mL (<125); Potassium 4.1 mmol/L (3.5-5.1); Protein, Total 7.5 g/dL (6.4-8.2); Sodium Level 132 mmol/L (136-145); Troponin (Emerg Dept Use Only) < 0.02 ng/mL (0.0-0.045)
[2019-09-11 23:57] LABS: Glucose Level 419 mg/dL (74-106)
--- NOTE | 2019-09-12 00:41 | EDPHYS ---
Physician Documentation [facility] Name: Chava Pate Age: 44 yrs Sex: Male : 1975 Arrival Date: 09/11/2019 Time: 21:28 Bed 7 Private MD: ED Physician Elijah Ruiz HPI: 09/10 23:58 This 44 yrs old Male presents to ER via Ambulatory with complaints of dennis Dizziness. 23:58 The patient presents with dizziness, generalized weakness. Onset: The symptoms/episode dennis began/occurred 2 day(s) ago. Context: occurred at home. Modifying factors: The symptoms are alleviated by nothing, the symptoms are aggravated by nothing. Associated signs and symptoms: The patient has no apparent associated signs or symptoms. Severity of symptoms: At their worst the symptoms were moderate in the emergency department the symptoms are unchanged. Patient's baseline: Neuro: alert and fully oriented. The patient has not experienced similar symptoms in the past. Historical: - Allergies: 21:37 No Known Allergies; ll1 - PMHx: 21:37 PERIPHERAL NEUROPATHY; Diabetes - NIDDM; ll1 - PSHx: 21:37 None; ll1 - Immunization history:: Flu vaccine is not up to date. - Social history:: Smoking status: Patient denies any tobacco usage or history of. Patient uses alcohol, only on a social basis. Patient/guardian denies using street drugs. - Family history:: not pertinent. ROS: 23:58 Constitutional: Negative for fever, chills, and weight loss, Eyes: Negative for injury, dennis pain, redness, and discharge, ENT: Negative for injury, pain, and discharge, Neck: Negative for injury, pain, and swelling, Cardiovascular: Negative for chest pain, palpitations, and edema, Respiratory: Negative for shortness of breath, cough, wheezing, and pleuritic chest pain, Abdomen/GI: Negative for abdominal pain, nausea, vomiting, diarrhea, and constipation, Back: Negative for injury and pain, : Negative for injury, bleeding, discharge, and swelling, MS/Extremity: Negative for injury and deformity, Skin: Negative for injury, rash, and discoloration, Psych: Negative for depression, anxiety, suicide ideation, homicidal ideation, and hallucinations, Allergy/Immunology: Negative for hives, rash, and allergies, Endocrine: Negative for neck swelling, polydipsia, polyuria, polyphagia, and marked weight changes, Hematologic/Lymphatic: Negative for swollen nodes, abnormal bleeding, and unusual bruising. 23:58 Eyes: Positive for blurry vision. 23:58 Neuro: Positive for dizziness, weakness. Exam: 23:58 Constitutional: This is a well developed, well nourished patient who is awake, alert, dennis and in no acute distress. Head/Face: Normocephalic, atraumatic. Eyes: Pupils equal round and reactive to light, extra-ocular motions intact. Lids and lashes normal. Conjunctiva and sclera are non-icteric and not injected. Cornea within normal limits. Periorbital areas with no swelling, redness, or edema. ENT: Nares patent. No nasal discharge, no septal abnormalities noted. Tympanic membranes are normal and external auditory canals are clear. Oropharynx with no redness, swelling, or masses, exudates, or evidence of obstruction, uvula midline. Mucous membranes moist. Neck: Trachea midline, no thyromegaly or masses palpated, and no cervical lymphadenopathy. Supple, full range of motion without nuchal rigidity, or vertebral point tenderness. No Meningismus. Chest/axilla: Normal chest wall appearance and motion. Nontender with no deformity. No lesions are appreciated. Cardiovascular: Regular rate and rhythm with a normal S1 and S2. No gallops, murmurs, or rubs. Normal PMI, no JVD. No pulse deficits. Respiratory: Lungs have equal breath sounds bilaterally, clear to auscultation and percussion. No rales, rhonchi or wheezes noted. No increased work of breathing, no retractions or nasal flaring. Abdomen/GI: Soft, non-tender, with normal bowel sounds. No distension or tympany. No guarding or rebound. No evidence of tenderness throughout. Back: No spinal tenderness. No costovertebral tenderness. Full range of motion. Skin: Warm, dry with normal turgor. Normal color with no rashes, no lesions, and no evidence of cellulitis. MS/ Extremity: Pulses equal, no cyanosis. Neurovascular intact. Full, normal range of motion. Neuro: Awake and alert, GCS 15, oriented to person, place, time, and situation. Cranial nerves II-XII grossly intact. Motor strength 5/5 in all extremities. Sensory grossly intact. Cerebellar exam normal. Normal gait. Psych: Awake, alert, with orientation to person, place and time. Behavior, mood, and affect are within normal limits. 09/11 00:02 ECG was reviewed by the Attending Physician. [facility] Vital Signs: 09/10 21:33 BP 195 / 102; Pulse 87; Resp 18; Temp 97.9; Pulse Ox 99% ; Pain 0/10; ll1 09/11 01:01 BP 155 / 91; Pulse 77; Resp 17 S; Pulse Ox 98% on R/A; jd3 02:50 BP 136 / 82 Supine; Pulse 74; Resp 18; Pulse Ox 100% on R/A; lp1 02:55 BP 109 / 74 Sitting; Pulse 81; Resp 18; Pulse Ox 99% on R/A; lp1 03:00 BP 89 / 72 Standing; Pulse 90; Resp 18; Pulse Ox 100% ; lp1 05:28 BP 148 / 87 Supine; Pulse 77; jd3 05:28 BP 118 / 73 Sitting; Pulse 78; jd3 05:28 BP 118 / 77 Standing; Pulse 86; Resp 16 S; Pulse Ox 99% on R/A; jd3 03:00 patient states dizziness lp1 NIH Stroke Scale Scores: 00:38 NIHSS Score: [address] [facility] MDM: 09/10 23:01 Patient medically screened. [facility] 09/11 00:01 Data reviewed: vital signs, nurses notes, lab test result(s), EKG, radiologic studies, dennis plain films. Data interpreted: monitoring specialist: rate is 87 beats/min, Pulse oximetry: on room air is 99 %. Test interpretation: by ED physician or midlevel provider: ECG, plain radiologic studies. Counseling: I had a detailed discussion with the patient and/or guardian regarding: the historical points, exam findings, and any diagnostic results supporting the discharge/admit diagnosis, lab results, radiology results, the need for outpatient follow up, for definitive care, an nursing unit manager. 00:38 ED course: [place] pt importance of follow up and good blood glucose control. [facility] 09/10 22:57 Order name: Basic Metabolic Panel; Complete Time: 00:[address] [facility] 09/10 22:57 Order name: CBC with Diff; Complete Time: 23:[address] [facility] 09/10 22:57 Order name: LFT's; Complete Time: 00:[address] [facility] 09/10 22:57 Order name: Magnesium; Complete Time: 00:[address] [facility] 09/10 22:57 Order name: NT PRO-BNP; Complete Time: 00:[address] [facility] 09/10 22:57 Order name: Troponin (emerg Dept Use Only); Complete Time: 00:[address] [facility] 09/10 22:57 Order name: XRAY Chest (1 view) [facility] 09/10 23:42 Order name: Urine Dipstick--Ancillary (enter results); Complete Time: 23:57 fl 09/11 03:02 Order name: Glucose, Ancillary Testing [facility] 09/11 05:25 Order name: Glucose, Ancillary Testing [facility] 09/10 22:57 Order name: EKG; Complete Time: 22:[address] [facility] 09/10 22:57 Order name: Cardiac monitoring; Complete Time: 23:[address] [facility] 09/10 22:57 Order name: EKG - Nurse/Tech; Complete Time: 23:[address] [facility] 09/10 22:57 Order name: IV Saline Lock; Complete Time: 23:[address] [facility] 09/10 22:57 Order name: Labs collected and sent; Complete Time: 23:[address] [facility] 09/10 22:57 Order name: O2 Per Protocol; Complete Time: 23:[address] [facility] 09/10 22:57 Order name: O2 Sat Monitoring; Complete Time: 23:[address] [facility] 09/10 22:57 Order name: Urine Dipstick-Ancillary (obtain specimen); Complete Time: 23:[address] [facility] 09/11 00:37 Order name: Blood Glucose Level; Complete Time: 03:[address] [facility] 09/11 00:37 Order name: Orthostatics; Complete Time: 03:[address] [facility] EC:02 Rate is 85 beats/min. Rhythm is regular. QRS [place] is Normal. MS interval is shortened. [facility] QRS interval is normal. QT interval is normal. No Q waves. T waves are Normal. No ST changes noted. Clinical impression: NSR w/ Non-specific ST/T Changes and No evidence of ischemia. Interpreted by me. Reviewed by me. Administered Medications: 09/10 23:27 Drug: NS 0.9% 500 ml Route: IV; Rate: bolus; Site: right forearm; jd3 09/11 00:20 Follow up: Response: No adverse reaction; IV Status: Completed infusion; IV Intake: jd3 500ml 00:59 Drug: NS 0.9% 1000 ml Route: IV; Rate: 1 bolus; Site: right antecubital; jd3 03:01 Follow up: IV Status: Completed infusion; IV Intake: 1000ml lp1 00:59 Drug: Insulin Regular Human 10 units {Co-Signature: (Kalli Sullivan RN).} Route: jd3 IVP; Site: right antecubital; 03:02 Follow up: Response: Blood sugar is lowered lp1 00:59 Drug: Lisinopril 10 mg Route: PO; jd3 01:59 Follow up: Response: No adverse reaction jd3 01:01 Drug: Insulin Regular Human 10 units {Co-Signature: (Kalli Sullivan RN).} Route: jd3 Sub-Q; Site: abdomen; 03:02 Follow up: Response: Blood sugar is lowered lp1 03:01 Drug: NS 0.9% 1000 ml Route: IV; Rate: 1000 ml; Site: right forearm; lp1 05:00 Follow up: Response: No adverse reaction; IV Status: Completed infusion jd3 Disposition: 09/12/19 00:41 Discharged to Home. Impression: Type 2 diabetes mellitus, Unspecified kidney failure, Essential (primary) hypertension, Dizziness and giddiness. - Condition is Stable. - Discharge Instructions: Type 2 Diabetes Mellitus, Diagnosis, Adult, Dizziness, Hypertension, Near-Syncope, Huvn-[id number], Hypertension, [id number], How to Take Your Blood Pressure, Ukut-kc-Kizk, Aspirin and Your Heart, Chronic Kidney Disease, Adult, Aufc-aq-Hkzz, Type 2 Diabetes Mellitus, Diagnosis, Adult, Xncu-kf-Nhpv, Dizziness, Tmuz-kl-Airt, Managing Your Hypertension. - Prescriptions for Lisinopril 10 mg Oral Tablet - take 1 tablet by ORAL route once daily; 20 tablet. Metformin 1,000 mg Oral Tablet - take 1 tablet by ORAL route every 12 hours with morning and evening meals; 20 tablet. - Medication Reconciliation Form, Thank You Letter, Antibiotic Education, Prescription Opioid Use, Work release form form. - Follow up: Private Physician; When: 2 - 3 days; Reason: Recheck today's complaints, Continuance of care, Re-evaluation by your physician. Follow up: Parviz Coreas MD; When: 2 - 3 days; Reason: Recheck today's complaints, Continuance of care, Re-evaluation by your physician. - Problem is new. - Symptoms have improved. NIH Stroke Scale - NIH Stroke Score Date: 09/12/2019 Time: 00:38 Total Score = 0 1a. Level of Consciousness (LOC) - 0(Alert) 1b. Level of Consciousness (LOC) (Year \T\ Age) - 0(Both) 1c. LOC Commands (Open \T\ Closes Eyes/Animal Chiropractor) - 0(Both) 2. Best Gaze (Lateral Gaze Paresis) - 0(Normal) 3. Visual Field Loss - 0(No visual loss) 4. Facial Palsy - 0(Normal) 5a. Left Arm: Motor (10-second hold) - 0(No drift) 5b. Right Arm: Motor (10-second hold) - 0(No drift) 6a. Left Leg: Motor (5-second hold - always test supine) - 0(No drift) 6b. Right Leg: Motor (5-second hold - always test supine) - 0(No drift) 7. Limb Ataxia (finger/nose \T\ heel/medeiros - test with eyes open) - 0(Absent) 8. Sensory Loss (pinprick arms/legs/face) - 0(Normal) 9. Best Language: Aphasia (description/naming/reading) - 0(No aphasia) 10. Dysarthria (speech clarity - read or repeat words) - 0(Normal) 11. Extinction and Inattention (visual/tactile/auditory/spatial/personal) - 0(No abnormality) Initials: dennis Signatures: Dispatcher [employer] [facility] Elijah Ruiz MD MD cha Pena, Laura, RN RN lp1 Joao Sue RN RN jGretta Squires RN RN ll1 Kalli Sullivan RN vc Corrections: (The following items were deleted from the chart) 00:05 09/10 22:58 Head Brain Wo Cont+CT.RAD.BRZ ordered. [facility] 09/11 05:31 00:41 09/12/2019 00:41 Discharged to Home. Impression: Type 2 diabetes jd3 mellitus; Unspecified kidney failure; Essential (primary) hypertension; Dizziness and giddiness. Condition is Stable. Forms are Medication Reconciliation Form, Thank You Letter, Antibiotic Education, Prescription Opioid Use. Follow up: Private Physician; When: 2 - 3 days; Reason: Recheck today's complaints, Continuance of care, Re-evaluation by your physician. Follow up: Parviz Coreas; When: 2 - 3 days; Reason: Recheck today's complaints, Continuance of care, Re-evaluation by your physician. Problem is new. Symptoms have improved. dennis
--- NOTE | 2019-09-12 00:41 | ER ---
Nurse's Notes [facility] Name: Chava Pate Age: 44 yrs Sex: Male : 1975 Arrival Date: 09/11/2019 Time: 21:28 Bed 7 Private MD: Diagnosis: Type 2 diabetes mellitus;Unspecified kidney failure;Essential (primary) hypertension;Dizziness and giddiness Presentation: 09/10 21:33 Chief complaint: Patient states: Dizziness for 2 days that made him miss work, so he ll1 came to get checked. Reports numbness to both feet and left hand. Generalized vague feeling of not feeling well. Coronavirus screen: Proceed with normal triage. Patient denies a cough. Patient denies shortness of breath or difficulty breathing. Patient denies measured and/or subjective temperature greater than 100.4F prior to today's visit. Patient denies travel on a cruise ship or to a country the [facility] currently lists as an affected area. Patient denies contact with known and/or suspected case of COVID-19. Ebola Screen: Patient denies travel to an Ebola-affected area in the 21 days before illness onset. Initial Sepsis Screen: Does the patient meet any 2 criteria? No. Patient's initial sepsis screen is negative. Does the patient have a suspected source of infection? No. Patient's initial sepsis screen is negative. Risk Assessment: Do you want to hurt yourself or someone else? Patient reports no desire to harm self or others. Onset of symptoms was September 10, 2019. 21:33 Method Of Arrival: Ambulatory ll1 21:33 Acuity: EDINSON 3 ll1 Historical: - Allergies: 21:37 No Known Allergies; ll1 - PMHx: 21:37 PERIPHERAL NEUROPATHY; Diabetes - NIDDM; ll1 - PSHx: 21:37 None; ll1 - Immunization history:: Flu vaccine is not up to date. - Social history:: Smoking status: Patient denies any tobacco usage or history of. Patient uses alcohol, only on a social basis. Patient/guardian denies using street drugs. - Family history:: not pertinent. Screenin/24 03:02 Abuse screen: Denies threats or abuse. Denies injuries from another. Nutritional lp1 screening: No deficits noted. Tuberculosis screening: No symptoms or risk factors identified. 05:30 Fall Risk Ambulatory Aid- None/Bed Rest/Nurse Assist (0 pts). Gait- Normal/Bed jd3 Rest/Wheelchair (0 pts) Mental Status- Oriented to own ability (0 pts). Total Pruitt Fall Scale indicates No Risk (0-24 pts). Assessment: 09/10 23:05 General: Appears in no apparent distress. uncomfortable, Behavior is calm, cooperative, jd3 appropriate for age. Pain: Denies pain. Neuro: Level of Consciousness is awake, alert, obeys commands, Oriented to person, place, time, situation, Reports dizziness, numbness /burning feeling in [place] hands and feet. Cardiovascular: Denies chest pain, Capillary refill < 3 seconds Patient's skin is warm and dry. Respiratory: Airway is patent Respiratory effort is even, unlabored, Respiratory pattern is regular, symmetrical, Denies cough, shortness of breath. GI: No signs and/or symptoms were reported involving the gastrointestinal system. : No signs and/or symptoms were reported regarding the genitourinary system. EENT: No signs and/or symptoms were reported regarding the EENT system. Derm: Skin is intact, Skin is dry, Skin is normal, Skin temperature is warm. Musculoskeletal: Circulation, motion, and sensation intact. Range of motion: intact in all extremities. 09/11 00:10 Reassessment: Patient appears in no apparent distress at this time. No changes from jd3 previously documented assessment. Patient and/or family updated on plan of care and expected duration. Pain level reassessed. Patient is alert, oriented x 3, equal unlabored respirations, skin warm/dry/pink. 01:17 Reassessment: Patient appears in no apparent distress at this time. Patient and/or jd3 family updated on plan of care and expected duration. Pain level reassessed. Patient is alert, oriented x 3, equal unlabored respirations, skin warm/dry/pink. awaiting medication infusion before discharge Patient states feeling better. 03:00 Reassessment: Provider notified of orthostatic vitals; verbal order for NS 1L bolus now.lp1 04:30 Reassessment: Patient appears in no apparent distress at this time. Patient and/or jd3 family updated on plan of care and expected duration. Pain level reassessed. Patient is alert, oriented x 3, equal unlabored respirations, skin warm/dry/pink. 05:28 Reassessment: Patient appears in no apparent distress at this time. Patient and/or jd3 family updated on plan of care and expected duration. Pain level reassessed. Patient is alert, oriented x 3, equal unlabored respirations, skin warm/dry/pink. Patient states symptoms have improved. Vital Signs: 09/10 21:33 BP 195 / 102; Pulse 87; Resp 18; Temp 97.9; Pulse Ox 99% ; Pain 0/10; ll1 09/11 01:01 BP 155 / 91; Pulse 77; Resp 17 S; Pulse Ox 98% on R/A; jd3 02:50 BP 136 / 82 Supine; Pulse 74; Resp 18; Pulse Ox 100% on R/A; lp1 02:55 BP 109 / 74 Sitting; Pulse 81; Resp 18; Pulse Ox 99% on R/A; lp1 03:00 BP 89 / 72 Standing; Pulse 90; Resp 18; Pulse Ox 100% ; lp1 05:28 BP 148 / 87 Supine; Pulse 77; jd3 05:28 BP 118 / 73 Sitting; Pulse 78; jd3 05:28 BP 118 / 77 Standing; Pulse 86; Resp 16 S; Pulse Ox 99% on R/A; jd3 03:00 patient states dizziness lp1 NIH Stroke Scale Scores: 00:38 NIHSS Score: 0 dennis ED Course: 09/10 21:28 Patient arrived in ED. cl3 21:36 Triage completed. ll1 21:37 Arm band placed on Patient notified of wait time. ll1 22:56 Elijah Ruiz MD is Attending Physician. dennis 23:01 Joao Sue RN is Primary Nurse. jd3 23:25 Inserted saline lock: 20 gauge in right forearm, using aseptic technique. Blood jd3 collected. 23:38 XRAY Chest (1 view) In Process Unspecified. EDMS 23:57 Notified ED physician of a critical lab result(s). Glucose 419. lp1 09/11 00:00 Patient has correct armband on for positive identification. Placed in gown. Bed in low jd3 position. Call light in reach. Side rails up X 1. 00:00 director telehealth on. Pulse ox on. NIBP on. jd3 00:40 Parviz Coreas MD is Referral Physician. dennis 05:29 No provider procedures requiring assistance completed. IV discontinued, intact, jd3 bleeding controlled, No redness/swelling at site. Pressure dressing applied. Administered Medications: 09/10 23:27 Drug: NS 0.9% 500 ml Route: IV; Rate: bolus; Site: right forearm; jd3 09/11 00:20 Follow up: Response: No adverse reaction; IV Status: Completed infusion; IV Intake: jd3 500ml 00:59 Drug: NS 0.9% 1000 ml Route: IV; Rate: 1 bolus; Site: right antecubital; jd3 03:01 Follow up: IV Status: Completed infusion; IV Intake: 1000ml lp1 00:59 Drug: Insulin Regular Human 10 units {Co-Signature: vc (Kalli Sullivan RN).} Route: jd3 IVP; Site: right antecubital; 03:02 Follow up: Response: Blood sugar is lowered lp1 00:59 Drug: Lisinopril 10 mg Route: PO; jd3 01:59 Follow up: Response: No adverse reaction jd3 01:01 Drug: Insulin Regular Human 10 units {Co-Signature: vc (Kalli Sullivan RN).} Route: jd3 Sub-Q; Site: abdomen; 03:02 Follow up: Response: Blood sugar is lowered lp1 03:01 Drug: NS 0.9% 1000 ml Route: IV; Rate: 1000 ml; Site: right forearm; lp1 05:00 Follow up: Response: No adverse reaction; IV Status: Completed infusion jd3 Intake: 00:20 IV: 500ml; Total: 500ml. jd3 03:01 IV: 1000ml; Total: 1500ml. lp1 Outcome: 00:41 Discharge ordered by . dennis 05:29 Discharged to home ambulatory. jd3 05:29 Condition: stable 05:29 Discharge instructions given to patient, Instructed on discharge instructions, follow up and referral plans. medication usage, Demonstrated understanding of instructions, follow-up care, medications, Prescriptions given X 2. 05:31 Patient left the ED. jd3 NIH Stroke Scale - NIH Stroke Score Date: 09/12/2019 Time: 00:38 Total Score = 0 1a. Level of Consciousness (LOC) - 0(Alert) 1b. Level of Consciousness (LOC) (Year \T\ Age) - 0(Both) 1c. LOC Commands (Open \T\ Closes Eyes/Prep Person) - 0(Both) 2. Best Gaze (Lateral Gaze Paresis) - 0(Normal) 3. Visual Field Loss - 0(No visual loss) 4. Facial Palsy - 0(Normal) 5a. Left Arm: Motor (10-second hold) - 0(No drift) 5b. Right Arm: Motor (10-second hold) - 0(No drift) 6a. Left Leg: Motor (5-second hold - always test supine) - 0(No drift) 6b. Right Leg: Motor (5-second hold - always test supine) - 0(No drift) 7. Limb Ataxia (finger/nose \T\ heel/medeiros - test with eyes open) - 0(Absent) 8. Sensory Loss (pinprick arms/legs/face) - 0(Normal) 9. Best Language: Aphasia (description/naming/reading) - 0(No aphasia) 10. Dysarthria (speech clarity - read or repeat words) - 0(Normal) 11. Extinction and Inattention (visual/tactile/auditory/spatial/personal) - 0(No abnormality) Initials: dennis Signatures: Dispatcher [employer] EDElijah Reza MD MD cha Pena, Laura, RN RN lp1 Joao Sue RN RN Mary Cole cl3 Gretta Contreras RN RN ll1 Kalli Sullivan RN vc Corrections: (The following items were deleted from the chart) 05:29 02:00 Inserted saline lock: 20 gauge in right forearm, using aseptic technique. jd3 Blood collected. jd3
[2019-09-12] MEDS ORDERED: lisinopriL 10 MG TAB ONE (00:58)
[2019-09-12] MEDS ORDERED: INSULIN -REGULAR HUMAN 50 UNIT/0.5 ML ML ONE (00:59)
[2019-09-12] MEDS ORDERED: NA CHLORIDE 0.9% 1,000 ML ONE ×2 (01:00→03:03)
[2019-09-12 05:40] VITALS: TEMP 97.9
[2019-09-12 05:48] VITALS: BP 118/77; O2SAT 99
--- NOTE | 2019-09-12 11:31 | RAD REPORT ---
EXAM DESCRIPTION: RAD - Chest Single View - 09/11/2019 11:38 pm CLINICAL HISTORY: COUGH COMPARISON: April 2019 TECHNIQUE: AP portable chest image was obtained 09/11/2019 11:38 pm . FINDINGS: Lungs are clear. Heart and vasculature are normal. No measurable pleural effusion and no p neumothorax. No acute bony abnormality seen. No acute aortic findings suspected. IMPRESSION: No acute cardiopulmonary process. No suspicious change from comparison.
--- NOTE | 2019-09-13 08:55 | EKG ---
Test Date: 2019-09-11 Test Time: 23:26:12 Veterinary Medical Officer: MATT MEASUREMENT RESULTS: Intervals: Rate: 85 TN: 110 QRSD: 92 QT: 372 QTc: 442 [place]: P: 24 TN: 110 QRS: -26 T: 33 INTERPRETIVE STATEMENTS: Sinus rhythm with short TN Otherwise normal ECG Compared to ECG 05/02/2019 12:07:10 Short TN interval now present Electronically Signed On 09-13-19 08:54:01 CDT by Silver Bell
== END 2019-09-12 05:31 | disposition home or self-care (01) ==
LOC: ER 21:27
DX: N19 Unspecified kidney failure (principal); I10 Essential (primary) hypertension; E11.9 Type 2 diabetes mellitus without complications; R29.700 NIHSS score 0
CPT/HCPCS: 36415; 71045; 80048; 80076; 81003; 82947; 83735; 83880; 84484; 85025; 93005; 96361; 96372; 96374; 99284; J7030; J7040

== ENCOUNTER 2020-02-01 22:33 | Emergency (ER) | payer SELFPAY ==
[2020-02-01] MEDS ORDERED: FLUORESCEIN SODIUM 1 MG/WRAP ONE (23:47)
[2020-02-01] MEDS ORDERED: TETRACAINE HCL 0.5% 4ML OPTH ONE (23:47)
--- NOTE | 2020-02-02 00:08 | ER ---
Nurse's Notes [facility] Name: Chava Pate Age: 44 yrs Sex: Male : 1975 Arrival Date: 02/01/2020 Time: 22:36 Bed 6 Private MD: Ramon Romo T Diagnosis: Diabetes Mellitus;Corneal Abrasion;Decreased Vision-Chronic Presentation: 01/31 22:47 Chief complaint: Patient states: Losing vision "for the last few months"; Hx of lp1 diabetes, unable to afford medications; Reports worried about losing vision, difficulty seeing at night when driving, difficulty with peripheral vision and depth perception. Coronavirus screen: Client denies travel out of the [place] in the last 14 days. At this time, the client does not indicate any symptoms associated with coronavirus-19. Ebola Screen: No symptoms or risks identified at this time. Initial Sepsis Screen: Does the patient meet any 2 criteria? No. Patient's initial sepsis screen is negative. Does the patient have a suspected source of infection? No. Patient's initial sepsis screen is negative. Risk Assessment: Do you want to hurt yourself or someone else? Patient reports no desire to harm self or others. Onset of symptoms was February 01, 2020. 22:47 Method Of Arrival: Ambulatory lp1 22:47 Acuity: EDINSON 3 lp1 Historical: - Allergies: 22:52 No Known Allergies; lp1 - Home Meds: 22:52 None [Active]; lp1 - PMHx: 22:52 Diabetes - NIDDM; PERIPHERAL NEUROPATHY; lp1 - PSHx: 22:52 None; lp1 - Immunization history:: Adult Immunizations up to date, Adult Immunizations up to date. - Social history:: Smoking status: Patient denies any tobacco usage or history of. Smoking status: Patient denies any tobacco usage or history of. Screenin:52 Abuse screen: Denies threats or abuse. Nutritional screening: No deficits noted. ea Tuberculosis screening: No symptoms or risk factors identified. Fall Risk None identified. Assessment: 22:50 General: Appears in no apparent distress. Behavior is cooperative. Pain: Denies pain. ea Neuro: Level of Consciousness is awake, alert, obeys commands, Oriented to person, place, time, situation, Gait is steady, Speech is normal, Facial symmetry appears normal. Cardiovascular: Patient's skin is warm and dry. Respiratory: Airway is patent Respiratory effort is even, unlabored, Respiratory pattern is regular, symmetrical. EENT: Reports blurred vision. Derm: Skin is pink, warm \\T\\ dry. 23:52 Reassessment: Patient and/or family updated on plan of care and expected duration. Pain ea level reassessed. Patient is alert, oriented x 3, equal unlabored respirations, skin warm/dry/pink. 02/01 00:20 Reassessment: Patient and/or family updated on plan of care and expected duration. Pain ea level reassessed. Patient is alert, oriented x 3, equal unlabored respirations, skin warm/dry/pink. discharge instruction given to patient, verbalized the understanding of instruction. Vital Signs: 01/31 22:47 BP 157 / 101; Pulse 112; Resp 18; Temp 98.8(TE); Pulse Ox 98% on R/A; Weight 99.79 kg lp1 (R); Height 5 ft. 8 in. (172.72 cm); Pain 0/10; 23:52 BP 130 / 78; Pulse 80; Resp 18; Pulse Ox 98% on R/A; ea 22:47 Body Mass Index 33.45 (99.79 kg, 172.72 cm) lp1 Visual Acuity: 23:55 Left Eye Visual acuity 20/70, ; Right Eye Visual acuity 20/50, ; Both Eyes Visual ea acuity 20/50; With Lenses; ED Course: 22:36 Patient arrived in ED. am2 22:36 Ramon Romo MD is Private Physician. am2 22:46 Tra Preston MD is Attending Physician. mh7 22:50 Milagros Hubbard RN is Primary Nurse. ea 22:51 Triage completed. lp1 22:52 Arm band placed on. lp1 22:52 Patient has correct armband on for positive identification. Bed in low position. ea 02/01 00:06 Ramon Romo MD is Referral Physician. 7 00:06 Carolyn Phan MD is Referral Physician. 7 00:21 No provider procedures requiring assistance completed. Patient did not have IV access ea during this emergency room visit. Administered Medications: 01/31 23:51 Drug: Fluorescein Strip 1 strip {Note: administered by provider.} Route: Ophthalmic; ea Site: both eyes; 02/01 00:21 Follow up: Response: No adverse reaction emily 01/31 23:52 Drug: Tetracaine Drops 0.5 % 1 drops {Note: administered by provider .} Route: ea Ophthalmic; Site: both eyes; 02/01 00:21 Follow up: Response: No adverse reaction emily Outcome: 00:07 Discharge ordered by . abdiaziz 00:21 Discharged to home ambulatory. ea 00:21 Condition: stable 00:21 Discharge instructions given to patient, Instructed on discharge instructions, follow up and referral plans. medication usage, Demonstrated understanding of instructions, follow-up care, medications, Prescriptions given X 2. 00:21 Patient left the ED. emily Signatures: Jacy Hoffmann RN RN lp1 Radha Medrano Elena, RN RN ea Holmes, Maurice, MD MD mh7 Corrections: (The following items were deleted from the chart) 01/31 23:51 23:51 Fluorescein Strip 1 strip Ophthalmic in both eyes meily diaz
--- NOTE | 2020-02-02 00:08 | EDPHYS ---
Physician Documentation [facility] Name: Chava Pate Age: 44 yrs Sex: Male : 1975 Arrival Date: 02/01/2020 Time: 22:36 Bed 6 Private MD: Ramon Romo T ED Physician Tra Preston HPI: 01/31 23:15 This 44 yrs old Male presents to ER via Ambulatory with complaints of Vision mh7 Problem, losing voice. 23:16 The patient is experiencing decreased vision. Onset: The symptoms/episode mh7 began/occurred 3 month(s) ago. Duration: the symptoms are chronic. Aggravated by driving at night Alleviated by nothing. Alleviated by. Associated signs and symptoms: Pertinent negatives: chills, dizziness, ear ache, fever, headache, runny nose. Patient wears glasses. Severity of symptoms: At their worst the symptoms were moderate 3 months, in the emergency department the symptoms are unchanged. Patient reports decreased vision at night for 3 months. He states he is able to see better during the daytime. He denies any eye pain, redness, discharge, headache, nausea, vomiting, fever. he has had some hoarseness for the past month. He admits to not taking diabetes medication due to lack of affordability.. Historical: - Allergies: 22:52 No Known Allergies; lp1 - Home Meds: 22:52 None [Active]; lp1 - PMHx: 22:52 Diabetes - NIDDM; PERIPHERAL NEUROPATHY; lp1 - PSHx: 22:52 None; lp1 - Immunization history:: Adult Immunizations up to date, Adult Immunizations up to date. - Social history:: Smoking status: Patient denies any tobacco usage or history of. Smoking status: Patient denies any tobacco usage or history of. ROS: 23:16 Constitutional: Negative for fever, chills, and weight loss, Neck: Negative for injury, mh7 pain, and swelling, Cardiovascular: Negative for chest pain, palpitations, and edema, Respiratory: Negative for shortness of breath, cough, wheezing, and pleuritic chest pain, Abdomen/GI: Negative for abdominal pain, nausea, vomiting, diarrhea, and constipation, Back: Negative for injury and pain, : Negative for injury, bleeding, discharge, and swelling, MS/Extremity: Negative for injury and deformity, Skin: Negative for injury, rash, and discoloration, Neuro: Negative for headache, weakness, numbness, tingling, and seizure, Psych: Negative for depression, anxiety, suicide ideation, homicidal ideation, and hallucinations, Allergy/Immunology: Negative for hives, rash, and allergies, Endocrine: Negative for neck swelling, polydipsia, polyuria, polyphagia, and marked weight changes, Hematologic/Lymphatic: Negative for swollen nodes, abnormal bleeding, and unusual bruising. Exam: 23:56 Visual Acuity: I have reviewed the nursing documentation. 7 23:56 Constitutional: This is a well developed, well nourished patient who is awake, alert, and in no acute distress. Head/Face: Normocephalic, atraumatic. 23:56 ENT: Nares patent. No nasal discharge, no septal abnormalities noted. Tympanic membranes are normal and external auditory canals are clear. Oropharynx with no redness, swelling, or masses, exudates, or evidence of obstruction, uvula midline. Mucous membranes moist. Neck: Trachea midline, no thyromegaly or masses palpated, and no cervical lymphadenopathy. Supple, full range of motion without nuchal rigidity, or vertebral point tenderness. No Meningismus. Chest/axilla: Normal chest wall appearance and motion. Nontender with no deformity. No lesions are appreciated. Cardiovascular: Regular rate and rhythm with a normal S1 and S2. No gallops, murmurs, or rubs. Normal PMI, no JVD. No pulse deficits. Respiratory: Lungs have equal breath sounds bilaterally, clear to auscultation and percussion. No rales, rhonchi or wheezes noted. No increased work of breathing, no retractions or nasal flaring. Abdomen/GI: Soft, non-tender, with normal bowel sounds. No distension or tympany. No guarding or rebound. No evidence of tenderness throughout. Back: No spinal tenderness. No costovertebral tenderness. Full range of motion. Skin: Warm, dry with normal turgor. Normal color with no rashes, no lesions, and no evidence of cellulitis. MS/ Extremity: Pulses equal, no cyanosis. Neurovascular intact. Full, normal range of motion. Neuro: Awake and alert, GCS 15, oriented to person, place, time, and situation. Cranial nerves II-XII grossly intact. Motor strength 5/5 in all extremities. Sensory grossly intact. Cerebellar exam normal. Normal gait. Psych: Awake, alert, with orientation to person, place and time. Behavior, mood, and affect are within normal limits. 23:56 Eyes: Periorbital structures: appear normal, Pupils: equal, round, and reactive to light and accomodation, Extraocular movements: intact throughout, Conjunctiva: normal, Corneas: abrasion, that is moderate sized, on the left, on the right, at 6 o'clock, three small areas of increased fluorescein uptake at 6 o' clock, a fluorescein strip employed to appreciate the findings, Sclera: no appreciated abnormality, Anterior chamber: no slit lamp available. Lids and lashes: appear normal, bilaterally, funduscopic exam reveals no obvious abnormalities, Visual moura: are intact, Nystagmus: is not appreciated, Intraocular pressure: right eye = 14mmHg, left eye = 12mmHg. Vital Signs: 22:47 BP 157 / 101; Pulse 112; Resp 18; Temp 98.8(TE); Pulse Ox 98% on R/A; Weight 99.79 kg lp1 (R); Height 5 ft. 8 in. (172.72 cm); Pain 0/10; 23:52 BP 130 / 78; Pulse 80; Resp 18; Pulse Ox 98% on R/A; ea 22:47 Body Mass Index 33.45 (99.79 kg, 172.72 cm) lp1 Visual Acuity: 23:55 Left Eye Visual acuity 20/70, ; Right Eye Visual acuity 20/50, ; Both Eyes Visual ea acuity 20/50; With Lenses; MDM: 23:13 Patient medically screened. [facility] 02/01 00:04 Differential diagnosis: Corneal abrasion of Corneal ulcer of Foreign body in Acute 7 iritis of Acute glaucoma in Data reviewed: vital signs, nurses notes. Data interpreted: Pulse oximetry: on room air is 98 %. Interpretation: normal. Counseling: I had a detailed discussion with the patient and/or guardian regarding: the historical points, exam findings, and any diagnostic results supporting the discharge/admit diagnosis, the need for outpatient follow up, an opthalmologist, an pantry steward/stewardess. 01:15 Refusal of service: The patient/guardian displays adequate decision making capability [facility] and despite a detailed discussion of alternatives, benefits, risks, and consequences refuses: all lab tests. 01/31 23:10 Order name: Glucose, Ancillary Testing; Complete Time: 23:29 EDMS 01/31 23:14 Order name: Visual Acuity; Complete Time: 23:56 ea Administered Medications: 01/31 23:51 Drug: Fluorescein Strip 1 strip {Note: administered by provider.} Route: Ophthalmic; ea Site: both eyes; 02/01 00:21 Follow up: Response: No adverse reaction ea 01/31 23:52 Drug: Tetracaine Drops 0.5 % 1 drops {Note: administered by provider .} Route: ea Ophthalmic; Site: both eyes; 02/01 00:21 Follow up: Response: No adverse reaction ea Disposition: 02/02/20 00:07 Discharged to Home. Impression: Diabetes Mellitus, Corneal Abrasion, Decreased Vision-Chronic. - Condition is Stable. - Discharge Instructions: Visual Disturbances, Corneal Abrasion, [id number], Type 2 Diabetes Mellitus, Diagnosis, Adult, [id number]. - Prescriptions for Ciloxan 0.3 % Ophthalmic Drops - instill 2 drop by OPHTHALMIC route every 6 hours for 7 days; 5 milliliter. Metformin 500 mg Oral Tablet - take 1 tablet by ORAL route 2 times per day . Then take 1 tablet with morning meals AND evening meals; 30 tablet. - Medication Reconciliation Form, Thank You Letter, Antibiotic Education, Prescription Opioid Use form. - Follow up: Ramon Romo MD; When: 1 - 2 days; Reason: Worsening of condition, Recheck today's complaints, Continuance of care, Re-evaluation by your physician. Follow up: Carolyn Phan MD; When: 1 - 2 days; Reason: Worsening of condition, Recheck today's complaints. - Problem is chronic. - Symptoms have improved. Signatures: Jacy Hoffmann RN RN lp1 Milagros Hubbard RN RN ea Tra Preston MD MD mh7 Corrections: (The following items were deleted from the chart) 01/31 23:23 23:15 The patient is experiencing mh7 mh7 02/01 00:21 00:07 02/02/2020 00:07 Discharged to Home. Impression: Diabetes Mellitus; Corneal ea Abrasion; Decreased Vision-Chronic. Condition is Stable. Forms are Medication Reconciliation Form, Thank You Letter, Antibiotic Education, Prescription Opioid Use. Follow up: Ramon Romo; When: 1 - 2 days; Reason: Worsening of condition, Recheck today's complaints, Continuance of care, Re-evaluation by your physician. Follow up: Carolyn Phan; When: 1 - 2 days; Reason: Worsening of condition, Recheck today's complaints. Problem is chronic. Symptoms have improved. mh7
[2020-02-02 00:27] VITALS: TEMP 98.8; O2SAT 98
[2020-02-02 00:30] VITALS: BP 130/78
== END 2020-02-02 00:21 | disposition home or self-care (01) ==
LOC: ER 22:33
DX: S05.00XA Injury of conjunctiva and corneal abrasion without foreign body, unspecified eye, initial encounter (principal); E11.42 Type 2 diabetes mellitus with diabetic polyneuropathy
CPT/HCPCS: 82947; 99283

== ENCOUNTER 2020-08-21 17:55 | Emergency (ER) | payer BC, SELFPAY ==
[2020-08-21] MEDS ORDERED: NA CHLORIDE 0.9% 1,000 ML ONE (23:58)
[2020-08-22 00:13] LABS: Basophils % 1.2 % (0-1.3); Lymphocytes % 21.1 % (15.3-44.8); MPV 8.2 fL (7.6-11.3); RBC Red Blood Cell Count 5.21 M/uL (4.33-5.43)
[2020-08-22 00:20] LABS: BUN Blood Urea Nitrogen 41 mg/dL (7-18); Bicarbonate 23 mmol/L (21-32); Glucose Level 178 mg/dL (74-106); Sodium Level 140 mmol/L (136-145)
[2020-08-22 00:32] LABS: Urine Blood 2+ (Negative); Urine Glucose 2+ (Negative); Urine Protein 3+ (Negative); Urine pH 5.5 (5.0-7.0)
--- NOTE | 2020-08-22 00:46 | EDPHYS ---
Physician Documentation [facility] Name: Chava Pate Age: 45 yrs Sex: Male : 1975 Arrival Date: 08/21/2020 Time: 18:01 Bed 8 Private MD: Ramon Romo T ED Physician Oscar Ruiz HPI: 08/22 00:19 This 45 yrs old Male presents to ER via Ambulatory with complaints of High rn Blood Sugar. 00:19 The patient or guardian reports hyperglycemia, that was potentially precipitated by no rn particular event. Onset: The symptoms/episode began/occurred at an unknown time. Current symptoms: In the emergency department the patient's symptoms are unchanged from the initial presentation. It is unknown whether or not the patient has had similar symptoms in the past. Reports longstanding diabetes for 15-20 years, noncompliant with medication, reports vision problems that he saw eye doctor for this last week, referred to retinal specialist, + polyuria and polydipsia, neuropathy of hands and feet, along with very poor diet. Reports finally got tired of dealing with all of this and eye problems woke him up and made him aware of how serious this is. No acute changes. . Historical: - Allergies: 08/21 19:31 No Known Allergies; ea - Home Meds: 19:31 None [Active]; ea - PMHx: 19:31 Diabetes - NIDDM; PERIPHERAL NEUROPATHY; ea - PSHx: 19:31 None; ea - Immunization history:: Adult Immunizations unknown. - Social history:: Smoking status: Patient denies any tobacco usage or history of. - Family history:: not pertinent. - Hospitalizations: : No recent hospitalization is reported. ROS: 08/22 00:19 Constitutional: Negative for fever, chills, and weight loss, Eyes: + blurred vision rn bilateral eyes. Neck: Negative for injury, pain, and swelling, Cardiovascular: Negative for chest pain, palpitations, and edema, Respiratory: Negative for shortness of breath, cough, wheezing, and pleuritic chest pain, Abdomen/GI: Negative for abdominal pain, nausea, vomiting, diarrhea, and constipation, Back: Negative for injury and pain, : Negative for injury, bleeding, discharge, and swelling, MS/Extremity: Negative for injury and deformity, Skin: Negative for injury, rash, and discoloration, Neuro: Negative for headache, numbness, tingling, and seizure, Endocrine: + polyuria and polydipsia Exam: 00:19 Constitutional: This is a well developed, well nourished patient who is awake, alert, rn and in no acute distress. Head/Face: Normocephalic, atraumatic. Eyes: Pupils equal round and reactive to light, extra-ocular motions intact. Cardiovascular: Regular rate and rhythm. No pulse deficits. Respiratory: No increased work of breathing, no retractions or nasal flaring. Abdomen/GI: soft, non-tender Skin: Warm, dry with normal turgor. Normal color with no rashes, no lesions, and no evidence of cellulitis. MS/ Extremity: Pulses equal, no cyanosis. Neurovascular intact. Full, normal range of motion. Equal circumference. Neuro: Awake and alert, GCS 15, oriented to person, place, time, and situation. Cranial nerves II-XII grossly intact. Motor strength 5/5 in all extremities. decreased sensation both hands and feet. Cerebellar exam normal. Normal gait. Vital Signs: 08/21 19:31 BP 185 / 103; Pulse 94; Resp 18; Temp 98.3; Pulse Ox 99% ; Weight 99.79 kg; Height 5 ea ft. 8 in. (172.72 cm); 08/22 00:45 BP 185 / 98; Pulse 80; Resp 16; Pulse Ox 98% on R/A; jb4 08/21 19:31 Body Mass Index 33.45 (99.79 kg, 172.72 cm) ea MDM: 08/21 23:19 Patient medically screened. rn 08/22 00:43 Differential diagnosis: DKA, hyperglycemia. Data reviewed: vital signs, nurses notes, mds rn test result(s), and as a result, I will discharge patient. Counseling: I had a detailed discussion with the patient and/or guardian regarding: the historical points, exam findings, and any diagnostic results supporting the discharge/admit diagnosis, lab results, the need for outpatient follow up, to return to the emergency department if symptoms worsen or persist or if there are any questions or concerns that arise at home. Response to treatment: the patient's symptoms have mildly improved after treatment, and as a result, I will discharge patient. Special discussion: I discussed with the patient/guardian in detail that at this point there is no indication for admission to the hospital. It is understood, however, that if the symptoms persist or worsen the patient needs to return immediately for re-evaluation. Based on the history and exam findings, there is no indication for further emergent testing or inpatient evaluation. I discussed with the patient/guardian the need to see the primary care provider for further evaluation of the symptoms. ED course: Pt without acidosis or ketones in serum, will dc home with metformin refill and pcp f/u. Had long discussion regarding dangers of diabetes and need for treatment. States will drink a 2L of soda at any given sitting and has a poor diet.. 08/21 23:31 Order name: CBC with Diff; Complete Time: 00:42 rn 08/21 23:31 Order name: Basic Metabolic Panel; Complete Time: 00:42 rn 08/21 23:31 Order name: Ketone, Serum; Complete Time: 00:42 rn 08/22 00:01 Order name: Glucose, Ancillary Testing; Complete Time: 00:19 EDMS 08/22 00:32 Order name: Urine Dipstick-Ancillary; Complete Time: 00:42 EDMS 08/21 23:31 Order name: IV Start; Complete Time: 23:53 rn 08/21 23:31 Order name: Urine Dipstick-Ancillary (obtain specimen); Complete Time: 00:53 rn 08/21 23:32 Order name: Glucose Level; Complete Time: 23:53 rn Administered Medications: 08/21 23:50 Drug: NS 0.9% 1000 ml Route: IV; Rate: 1000 ml; Site: right forearm; jb4 08/22 00:54 Follow up: Response: No adverse reaction; IV Status: Completed infusion; IV Intake: mg2 1000ml Disposition: 08/22/20 00:45 Discharged to Home. Impression: Hyperglycemia, unspecified, Dehydration. - Condition is Stable. - Discharge Instructions: Dehydration, Adult, Hyperglycemia, Diabetes and Standards of Medical Care. - Prescriptions for Metformin 500 mg Oral Tablet Sustained Release 24 hr - take 1 tablet by ORAL route once daily with evening meal; 60 tablet. - Medication Reconciliation Form, Thank You Letter, Antibiotic Education, Prescription Opioid Use, Work release form form. - Follow up: Ramon Romo MD; When: As needed; Reason: Recheck today's complaints, Re-evaluation by your physician. - Problem is chronic. - Symptoms have improved. Signatures: Dispatcher [employer] EDMS Oscar Ruiz MD MD rn Bryson, James RN RN jb4 Milagros Hubbard RN RN Henrik Solomon, RN RN mg2 Corrections: (The following items were deleted from the chart) 00:55 00:45 08/22/2020 00:45 Discharged to Home. Impression: Hyperglycemia, unspecified; mg2 Dehydration. Condition is Stable. Forms are Medication Reconciliation Form, Thank You Letter, Antibiotic Education, Prescription Opioid Use. Follow up: Ramon Romo; When: As needed; Reason: Recheck today's complaints, Re-evaluation by your physician. Problem is chronic. Symptoms have improved. rn
--- NOTE | 2020-08-22 00:46 | ER ---
Nurse's Notes [facility] Name: Chava Pate Age: 45 yrs Sex: Male : 1975 Arrival Date: 08/21/2020 Time: 18:01 Bed 8 Private MD: Ramon Romo T Diagnosis: Hyperglycemia, unspecified;Dehydration Presentation: 08/21 19:28 Chief complaint: Patient states: Reports he is hyperglycemic symptoms, reports he has ea been diagnosed about a year ago with stage three kidney disease. Reports he is having blurred vision problems in the left arm. Coronavirus screen: At this time, the client does not indicate any symptoms associated with coronavirus-19. Ebola Screen: No symptoms or risks identified at this time. Risk Assessment: Do you want to hurt yourself or someone else? Patient reports no desire to harm self or others. Onset of symptoms was August 20, 2020. 19:28 Method Of Arrival: Ambulatory ea 19:28 Acuity: EDINSON 3 ea 19:31 Initial Sepsis Screen: Does the patient meet any 2 criteria? No. Patient's initial ea sepsis screen is negative. Does the patient have a suspected source of infection? No. Patient's initial sepsis screen is negative. Triage Assessment: 19:32 General: Appears in no apparent distress. Behavior is appropriate for age. Pain: Denies ea pain. Historical: - Allergies: 19:31 No Known Allergies; ea - Home Meds: 19:31 None [Active]; ea - PMHx: 19:31 Diabetes - NIDDM; PERIPHERAL NEUROPATHY; ea - PSHx: 19:31 None; ea - Immunization history:: Adult Immunizations unknown. - Social history:: Smoking status: Patient denies any tobacco usage or history of. - Family history:: not pertinent. - Hospitalizations: : No recent hospitalization is reported. Screenin:30 Abuse screen: Denies threats or abuse. Nutritional screening: No deficits noted. ea Tuberculosis screening: No symptoms or risk factors identified. Fall Risk None identified. Assessment: 23:20 General: Appears in no apparent distress. comfortable, Behavior is calm, cooperative, jb4 appropriate for age. Pain: Denies pain. Neuro: Level of Consciousness is awake, alert, obeys commands, Oriented to person, place, time, situation. Cardiovascular: Patient's skin is warm and dry. Respiratory: Airway is patent Respiratory effort is even, unlabored, Respiratory pattern is regular, symmetrical. GI: No signs and/or symptoms were reported involving the gastrointestinal system. : EENT: No signs and/or symptoms were reported regarding the EENT system. Derm: Skin is intact, Skin is pink, warm \T\ dry. Musculoskeletal: Circulation, motion, and sensation intact. Range of motion: intact in all extremities. 08/22 00:45 Reassessment: Patient appears in no apparent distress at this time. Patient and/or jb4 family updated on plan of care and expected duration. Pain level reassessed. Patient is alert, oriented x 3, equal unlabored respirations, skin warm/dry/pink. Vital Signs: 08/21 19:31 BP 185 / 103; Pulse 94; Resp 18; Temp 98.3; Pulse Ox 99% ; Weight 99.79 kg; Height 5 ea ft. 8 in. (172.72 cm); 08/22 00:45 BP 185 / 98; Pulse 80; Resp 16; Pulse Ox 98% on R/A; [facility] 08/21 19:31 Body Mass Index 33.45 (99.79 kg, 172.72 cm) ea ED Course: 08/21 18:01 Patient arrived in ED. mr 18:02 Ramon Romo MD is Private Physician. mr 19:30 Triage completed. ea 19:30 Arm band placed on right wrist. ea 23:18 Oscar Ruiz MD is Attending Physician. rn 23:33 Ronak Lemos RN is Primary Nurse. [facility] 08/22 00:44 Ramon Romo MD is Referral Physician. rn 00:54 No provider procedures requiring assistance completed. IV discontinued, intact, mg2 bleeding controlled, No redness/swelling at site. Pressure dressing applied. 00:55 Patient has correct armband on for positive identification. mg2 Administered Medications: 08/21 23:50 Drug: NS 0.9% 1000 ml Route: IV; Rate: 1000 ml; Site: right forearm; [facility] 08/22 00:54 Follow up: Response: No adverse reaction; IV Status: Completed infusion; IV Intake: mg2 1000ml Intake: 00:54 IV: 1000ml; Total: 1000ml. mg2 Outcome: 00:45 Discharge ordered by MD. rn 00:55 Discharged to home ambulatory. mg2 00:55 Condition: stable 00:55 Discharge instructions given to patient, Instructed on discharge instructions, follow up and referral plans. medication usage, Demonstrated understanding of instructions, follow-up care, medications, Prescriptions given X 1. 00:55 Patient left the ED. mg2 Signatures: Lili Stevens Roman, MD MD rn Bryson, James RN RN jb4 Milagros Hubbard RN Henrik Katz ea RN RN mg2
[2020-08-22 01:06] VITALS: BP 185/103; TEMP 98.3; O2SAT 99
== END 2020-08-22 00:55 | disposition home or self-care (01) ==
LOC: ER 17:55
DX: E86.0 Dehydration (principal); E11.42 Type 2 diabetes mellitus with diabetic polyneuropathy
CPT/HCPCS: 85025; 80048; 36415; 82010; 82947; 81003; J7030; 96360; 99283

== ENCOUNTER 2021-05-04 12:24 | Emergency (ER) | payer BC ==
[2021-05-04 13:30] LABS: Absolute Lymphocytes (CBC) 1.6 K/uL (0.7-4.9); Hematocrit 38.8 % (39.6-49.0); Lymphocytes % 24.7 % (15.3-44.8); RBC Red Blood Cell Count 4.77 M/uL (4.33-5.43)
[2021-05-04 13:48] LABS: ALT/SGPT 41 U/L (12-78); Albumin 1.9 g/dL (3.4-5.0); Alkaline Phosphatase 201 U/L (45-117); BUN Blood Urea Nitrogen 44 mg/dL (7-18); Bicarbonate 21 mmol/L (21-32); Bilirubin Direct < 0.1 mg/dL (0-0.2); Bilirubin Total 0.3 mg/dL (0.2-1.0); Lipase 264 U/L (73-393); Protein, Total 6.5 g/dL (6.4-8.2); Sodium Level 130 mmol/L (136-145)
[2021-05-04 13:52] LABS: Potassium 4.6 mmol/L (3.5-5.1)
[2021-05-04 13:53] LABS: AST/SGOT 24 U/L (15-37)
[2021-05-04 13:55] LABS: Glucose Level 438 mg/dL (74-106)
[2021-05-04 14:25] LABS: SARS-COV-2 RT PCR NEGATIVE (NEGATIVE)
--- NOTE | 2021-05-04 14:47 | RAD REPORT ---
EXAM DESCRIPTION: Champ Single View05/04/2021 2:04 pm CLINICAL HISTORY: Cough COMPARISON: 2019 FINDINGS: Chronic parahilar peribronchial thickening. The lungs appear clear of acute infiltrate. T he heart is normal size IMPRESSION: No acute abnormalities displayed
[2021-05-04] MEDS ORDERED: NA CHLORIDE 0.9% 1,000 ML ONE (15:05)
[2021-05-04] MEDS ORDERED: INSULIN -REGULAR HUMAN 50 UNIT/0.5 ML ML ONE ×2 (15:16→15:28)
[2021-05-04 15:18] LABS: Blood Gas Oxyhemoglobin 93.4 % (94-97); Blood O2 Saturation 94.2 % (92-98.5)
[2021-05-04] MEDS ORDERED: HYDRALAZINE HCL 20 MG/ML VIAL ONE (15:20)
[2021-05-04 15:54] LABS: Urine Blood 1+ (Negative); Urine Glucose 3+ (Negative); Urine Protein 3+ (Negative); Urine Specific Gravity 1.015 (1.005-1.030)
--- NOTE | 2021-05-04 16:11 | RAD REPORT ---
EXAM DESCRIPTION: CT - Stone Protocol - 05/04/2021 3:48 pm CLINICAL HISTORY: Abdominal pain. COMPARISON: None. TECHNIQUE: Computed axial tomography of the abdomen pelvis was obtained without oral or IV contrast. Lack of IV and oral contrast limits evaluation of solid organs, bowel, and vessels. Coronal reformat brad images were obtained and reviewed. All CT scans are performed using dose optimization technique as appropriate and may include automated exposure control or mA/KV adjustment according to patient size. FINDINGS: A renal calculus is not seen. An ureteral calculus is not noted. A bladder calculus is not present. The liver, spleen, pancreas and adrenals appear grossly normal There is no evidence of diverticulitis. The appendix appears normal Mild tree-in-bud opacities left lower lobe Spondylolysis L5. Small right inguinal hernia. Small umbilical hernia IMPRESSION: Negative for a genitourinary calculus Mild tree-in-bud opacities left lower lobe may indicate an atypical pneumonia
--- NOTE | 2021-05-04 17:19 | EDPHYS ---
Physician Documentation [facility] Name: Chava Pate Age: 46 yrs Sex: Male : 1975 Arrival Date: 05/04/2021 Time: 12:27 Bed 10 Private MD: Ramon Romo T ED Physician Jeremie Hurtado HPI: 05/04 13:04 This 46 yrs old Male presents to ER via Ambulatory with complaints of Flu jmm Symptoms. 13:04 The patient or guardian reports cough. Onset: The symptoms/episode began/occurred jmm gradually, 2 week(s) ago. Modifying factors: The symptoms are alleviated by nothing. the symptoms are aggravated by nothing. Associated signs and symptoms: Pertinent positives: diarrhea. This is a 46 year old male with a history of dm, and htn that presents to the ED with complaints of cough, fatigue, diarrhea worsening over the past 2 weeks. Patient denies chest pain or sob. States he does have some mild abdominal pain. . Historical: - Allergies: 12:45 No Known Allergies; vg1 - PMHx: 12:45 Diabetes - NIDDM; PERIPHERAL NEUROPATHY; Hypertensive disorder; vg1 - PSHx: 12:45 None; vg1 - Immunization history:: Client reports receiving the 2nd dose of the Covid vaccine. - Social history:: Smoking status: Patient denies any tobacco usage or history of. ROS: 13:04 Cardiovascular: Negative for chest pain, palpitations, and edema. jmm 13:04 Constitutional: Positive for fatigue. 13:04 Respiratory: Positive for cough. 13:04 Abdomen/GI: Positive for abdominal pain, diarrhea. 13:04 All other systems are negative. Exam: 13:04 Constitutional: This is a well developed, well nourished patient who is awake, alert, jmm and in no acute distress. Head/Face: atraumatic. Eyes: EOMI, no conjunctival erythema appreciated ENT: Moist Mucus Membranes Neck: Trachea midline, Supple Chest/axilla: Normal chest wall appearance and motion. Cardiovascular: Regular rate and rhythm. No edema appreciated Respiratory: Normal respirations, no respiratory distress appreciated Abdomen/GI: Non distended, soft Back: Normal ROM Skin: General appearance color normal MS/ Extremity: Moves all extremities, no obvious deformities appreciated, no edema noted to the lower extremities Neuro: Awake and alert, normal gait Psych: Behavior is normal, Mood is normal, Patient is cooperative and pleasant Vital Signs: 12:42 BP 166 / 97; Pulse 98; Resp 18; Temp 98.4(O); Pulse Ox 98% ; Weight 102.06 kg; Height 5 vg1 ft. 8 in. (172.72 cm); Pain 5/10; 14:00 BP 187 / 96; Pulse 90; Resp 16; Pulse Ox 99% on R/A; Pain 0/10; ab2 15:12 BP 223 / 108; Pulse 88; Resp 16 S; Pulse Ox 99% on R/A; Pain 0/10; ab2 16:00 BP 221 / 108; Pulse 89; Resp 16; Pulse Ox 100% on R/A; Pain 0/10; ab2 17:09 BP 153 / 80; Pulse 83; Resp 16; Pulse Ox 100% on R/A; Pain 0/10; ab2 12:42 Body Mass Index 34.21 (102.06 kg, 172.72 cm) vg1 MDM: 13:04 Patient medically screened. yessy 17:17 Data reviewed: vital signs, nurses notes. Counseling: I had a detailed discussion with yessy the patient and/or guardian regarding: the historical points, exam findings, and any diagnostic results supporting the discharge/admit diagnosis, lab results, radiology results, the need for outpatient follow up, to return to the emergency department if symptoms worsen or persist or if there are any questions or concerns that arise at home. ED course: Patient is alert and non toxic in appearance in the ED. I do not suspect dka. Patient responded well to insulin, fluids, antihypertensives. Patient advised to follow up with pcp and otherwise given strict return precautions. Patient understood and agrees with the plan of care. . 05/04 13:06 Order name: Basic Metabolic Panel; Complete Time: 14:37 [facility] 05/04 13:06 Order name: CBC with Diff; Complete Time: 13:34 [facility] 05/04 13:06 Order name: Hepatic Function; Complete Time: 14:37 [facility] 05/04 13:06 Order name: Lipase; Complete Time: 14:37 [facility] 05/04 13:06 Order name: Troponin High Sensitivity [facility] 05/04 13:07 Order name: Troponin High Sensitivity; Complete Time: 14:37 [facility] 05/04 13:19 Order name: COVID-19/FLU A+B (Document "Date of Onset" if Symptomatic); Complete Time: ab2 14:37 05/04 13:34 Order name: Chest Single View XRAY; Complete Time: 14:48 [facility] 05/04 15:03 Order name: ABG; Complete Time: 15:45 [facility] 05/04 15:19 Order name: CT Stone Protocol; Complete Time: 16:24 [facility] 05/04 15:53 Order name: Urine Dipstick-Ancillary; Complete Time: 16:06 [facility] 05/04 17:26 Order name: Glucose, Ancillary Testing [facility] 05/04 13:06 Order name: IV Saline Lock; Complete Time: 13:20 [facility] 05/04 13:06 Order name: Labs collected and sent; Complete Time: 13:20 [facility] 05/04 15:02 Order name: Urine Dipstick-Ancillary (obtain specimen); Complete Time: 15:53 [facility] 05/04 17:06 Order name: Fingerstick Glucose; Complete Time: 17:15 [facility] Administered Medications: 15:11 Drug: NS 0.9% 1000 ml Route: IV; Rate: 1 bolus; Site: left forearm; ab2 15:22 Drug: hydrALAZINE 10 mg Route: IVP; Site: left femoral; ab2 15:23 Drug: Insulin Regular Human 10 units {Co-Signature: jl7 (Yuan Lozano RN).} Route: ab2 Sub-Q; Site: left upper abdomen; 15:29 Drug: Insulin Regular Human 10 units {Co-Signature: vg1 (July Briceño RN).} Route: ab2 IVP; Site: left forearm; Disposition: 18:01 Co-signature as Attending Physician, Jeremie Hurtado MD I agree with the assessment and kdr plan of care. Disposition Summary: 05/04/21 17:19 Discharge Ordered Location: Home jm Condition: Stable jmm Diagnosis - Hyperglycemia, unspecified jmm - Viral Syndrome jmm Followup: jmm - With: Ramon Romo MD - When: 1 - 2 days - Reason: Recheck today's complaints, Continuance of care, Re-evaluation by your physician Discharge Instructions: - Discharge Summary Sheet jmm - Hyperglycemia jmm - Upper Respiratory Infection, Adult jm Forms: - Medication Reconciliation Form jmm - Thank You Letter jmm - Antibiotic Education jmm - Prescription Opioid Use jmm Signatures: Dispatcher [employer] Jeremie Harden MD MD kdr Mickail, Joel, PA PA jmm Garcia, Victoria, RN RN vg1 Vern Loo RN vg1 Yuan Lozano RN jl7
--- NOTE | 2021-05-04 17:19 | ER ---
Nurse's Notes [facility] Name: Chava Pate Age: 46 yrs Sex: Male : 1975 Arrival Date: 05/04/2021 Time: 12:27 Bed 10 Private MD: Ramon Romo T Diagnosis: Hyperglycemia, unspecified;Viral Syndrome Presentation: 05/04 12:42 Chief complaint: Patient states: 'heavy cough', h/a, and lightheartedness x 1 week; vg1 states diarrhea today, denies N/V. Coronavirus screen: Vaccine status: Patient reports receiving the 2nd dose of the covid vaccine. Client denies travel out of the [place] in the last 14 days. Ebola Screen: Patient negative for fever greater than or equal to 101.5 degrees Fahrenheit, and additional compatible Ebola Virus Disease symptoms. Initial Sepsis Screen: Does the patient meet any 2 criteria? No. Patient's initial sepsis screen is negative. Does the patient have a suspected source of infection? No. Patient's initial sepsis screen is negative. Risk Assessment: Do you want to hurt yourself or someone else? Patient reports no desire to harm self or others. Onset of symptoms was May 04, 2021. 12:42 Method Of Arrival: Ambulatory vg1 12:42 Acuity: EDINSON 3 vg1 Triage Assessment: 12:45 General: Appears in no apparent distress. uncomfortable, Behavior is cooperative, vg1 anxious. Pain: Complains of pain in head. Historical: - Allergies: 12:45 No Known Allergies; vg1 - PMHx: 12:45 Diabetes - NIDDM; PERIPHERAL NEUROPATHY; Hypertensive disorder; vg1 - PSHx: 12:45 None; vg1 - Immunization history:: Client reports receiving the 2nd dose of the Covid vaccine. - Social history:: Smoking status: Patient denies any tobacco usage or history of. Screenin:52 Abuse screen: Denies threats or abuse. Denies injuries from another. Nutritional ab2 screening: No deficits noted. Tuberculosis screening: No symptoms or risk factors identified. Fall Risk None identified. Assessment: 12:48 General: Appears in no apparent distress. comfortable, Behavior is calm, cooperative, ab2 appropriate for age. Pain:. Pain: Denies pain. Neuro: No deficits noted. Level of Consciousness is awake, alert, obeys commands, Oriented to person, place, time, situation, Appropriate for age [employer] Sales[employer] are equal bilaterally Moves all extremities. Gait is steady, Speech is normal. Cardiovascular: No deficits noted. Denies chest pain, shortness of breath, Heart tones S1 S2 present Patient's skin is warm and dry. Respiratory: No deficits noted. Airway is patent Breath sounds are clear bilaterally. Respiratory: Reports cough that is productive, hacking. GI: No deficits noted. No signs and/or symptoms were reported involving the gastrointestinal system. Abdomen is round non-distended, Bowel sounds present X 4 quads. : No deficits noted. No signs and/or symptoms were reported regarding the genitourinary system. EENT: No deficits noted. No signs and/or symptoms were reported regarding the EENT system. Derm: No deficits noted. No signs and/or symptoms reported regarding the dermatologic system. Vital Signs: 12:42 BP 166 / 97; Pulse 98; Resp 18; Temp 98.4(O); Pulse Ox 98% ; Weight 102.06 kg; Height 5 vg1 ft. 8 in. (172.72 cm); Pain 5/10; 14:00 BP 187 / 96; Pulse 90; Resp 16; Pulse Ox 99% on R/A; Pain 0/10; ab2 15:12 BP 223 / 108; Pulse 88; Resp 16 S; Pulse Ox 99% on R/A; Pain 0/10; ab2 16:00 BP 221 / 108; Pulse 89; Resp 16; Pulse Ox 100% on R/A; Pain 0/10; ab2 17:09 BP 153 / 80; Pulse 83; Resp 16; Pulse Ox 100% on R/A; Pain 0/10; ab2 12:42 Body Mass Index 34.21 (102.06 kg, 172.72 cm) vg1 ED Course: 12:27 Patient arrived in ED. mr 12:27 Ramon Romo MD is Private Physician. mr 12:42 Arm band placed on. vg1 12:45 Triage completed. vg1 12:48 Pramod Camargo PA is PHCP. [facility] 12:48 Jeremie Hurtado MD is Attending Physician. [facility] 12:48 Vern Loo is Primary Nurse. ab2 12:52 Patient has correct armband on for positive identification. Bed in low position. Side ab2 rails up X2. 12:52 No provider procedures requiring assistance completed. ab2 13:19 Inserted saline lock: 18 gauge in left forearm, using aseptic technique. Blood ab2 collected. 13:20 Troponin High Sensitivity Sent. ab2 13:20 Troponin High Sensitivity Sent. ab2 13:20 Basic Metabolic Panel Sent. ab2 13:20 CBC with Diff Sent. ab2 13:20 Hepatic Function Sent. ab2 13:20 Lipase Sent. ab2 14:04 Chest Single View XRAY In Process Unspecified. EDMS 15:48 CT Stone Protocol In Process Unspecified. EDMS 17:16 Blood glucose check was 150. ab2 17:18 Ramon Romo MD is Referral Physician. jmm 17:31 IV discontinued, intact, bleeding controlled, No redness/swelling at site. Pressure ab2 dressing applied. Administered Medications: 15:11 Drug: NS 0.9% 1000 ml Route: IV; Rate: 1 bolus; Site: left forearm; ab2 15:22 Drug: hydrALAZINE 10 mg Route: IVP; Site: left femoral; ab2 15:23 Drug: Insulin Regular Human 10 units {Co-Signature: jl7 (Yuan Lozano RN).} Route: ab2 Sub-Q; Site: left upper abdomen; 15:29 Drug: Insulin Regular Human 10 units {Co-Signature: vg1 (July Briceño RN).} Route: ab2 IVP; Site: left forearm; Outcome: 17:19 Discharge ordered by MD. m 17:31 Discharged to home ambulatory. ab2 17:31 Condition: good 17:31 Discharge instructions given to patient, Instructed on discharge instructions, follow up and referral plans. Demonstrated understanding of instructions, follow-up care. 17:31 Patient left the ED. ab2 Signatures: Dispatcher [employer] EDMS Pramod Camargo PA PA jmm Rivera, Mary mr Garcia, Victoria, RN RN vg1 Vern Loo ab2 July Briceño RN vg1 Yuan Lozano RN jl7 Corrections: (The following items were deleted from the chart) 12:46 12:42 BP 178 / 97; Pulse 98bpm; Resp 18bpm; Pulse Ox 98%; Temp 98.4F Oral; 102.06 kg; vg1 Height 5 ft. 8 in.; BMI: 34.2; Pain 5/10; vg1
[2021-05-04 17:38] VITALS: TEMP 98.4
[2021-05-04 17:43] VITALS: O2SAT 100
[2021-05-04 17:44] VITALS: BP 153/80
== END 2021-05-04 17:31 | disposition home or self-care (01) ==
LOC: ER 12:24
DX: B34.9 Viral infection, unspecified (principal); E11.65 Type 2 diabetes mellitus with hyperglycemia; E11.42 Type 2 diabetes mellitus with diabetic polyneuropathy; Z20.822 Contact with and (suspected) exposure to COVID-19; I10 Essential (primary) hypertension
CPT/HCPCS: 85025; 80048; 36415; 82947; 80076; 81003; 84484; 83690; 0240U; 76377; 74176; 71045; 82805; 96372; 99284; J0360; J7030

== ENCOUNTER 2021-09-04 20:52 | Inpatient (IN) | payer BC ==
--- OUTSIDE RECORDS SUMMARY | 2021-09-04 20:55 | XMS REPORT | Continuity of Care Document ---
:1975 Author Organization [facility] t Address [address] [place] [address] [address]. [address]. [address] [place] [address] Care Team Providers Name Role Phone JEFFREY DEY Primary Care Physician Unavailable Deborah RN, T Attending Clinician Unavailable TIRSO GARCIA Attending Clinician Unavailable Jose HODGES, Tirso Attending Clinician TIRSO GARCIA Admitting Clinician Unavailable Payers Payer Name Policy Type Policy Number Effective Date Expiration Date S ource Problems Condition Condition Condition Status Onset Resolution Last Treating Co mments Source Name Details Category Date Date Treatment Clinician Date No known No known Disease Unive rs active active ity of problems problems [facility] Allergies, Adverse Reactions, Alerts Allergy Allergy Status Severity Reaction(s) Onset Inactive Treating Comm ents Source Name Type Date Date Clinician NO KNOWN Drug Active [facility] ALLERGIE Class ity of S [facility] Social History Social Habit Start Date Stop Date Quantity Comments Source Exposure to Not sure [facility] SARS-CoV-2 (event) Medica l Branch Sex Assigned At [address] 1975 [facility] 00:00:00 00:00:00 [facility] Smoking Status Start Date Stop Date Source Unknown if ever smoked [facility] Medications Ordered Filled Start Stop Current Ordering Indication Dosage Frequency Signature Comments Components Source Medication Medication Date Date Medication? Clinician (SIG) Name Name albuterol Yes [id number] 2{puff} Inhale 2 Univers 90 1-22 Puffs ity of mcg/actuati 00:00: every 4 Kj as on inhaler 00 (four) Medical hours as Branch needed for Wheezing or Shortness of Breath. proMETHazin Yes [id number] 25mg Take 1 Univers e 25 mg 1-22 tablet by ity of tablet 00:00: mouth [place] 00 every 6 Medical (six) Branch hours as needed for Nausea and Vomiting (N/V). albuterol Yes [id number] 2{puff} Inhale 2 Univers 90 1-22 Puffs ity of mcg/actuati 00:00: every 4 Kj as on inhaler 00 (four) Medical hours as Branch needed for Wheezing or Shortness of Breath. proMETHazin Yes [id number] 25mg Take 1 Univers e 25 mg 1-22 tablet by ity of tablet 00:00: mouth [place] 00 every 6 Medical (six) Branch hours as needed for Nausea and Vomiting (N/V). amoxicillin 2021- No [id number] 1{tbl} Take 1 Univers -clavulanat 05-12-30 tablet by it y of e 875-125 00:00: 05:59 mouth [place] mg per 00 :00 every 12 Medical tablet (twelve) Branch hours for 7 days. codeine-gua 2021- No 10mL Take 10 mL Univers ifenesin 05-1230 by mouth ity of 10-100 mg/5 00:00: 05:59 every 6 [place] mL oral 00 :00 (six) Medical solution hours as Branch needed for Cough for up to 7 days. Indication s: COUGH amoxicillin 2021- No [id number] 1{tbl} Take 1 Univers -clavulanat 05-12-30 tablet by it y of e 875-125 00:00: 05:59 mouth [place] mg per 00 :00 every 12 Medical tablet (twelve) Branch hours for 7 days. codeine-gua 2021- No 10mL Take 10 mL Univers ifenesin 05-1230 by mouth ity of 10-100 mg/5 00:00: 05:59 every 6 [place] mL oral 00 :00 (six) Medical solution hours as Branch needed for Cough for up to 7 days. Indication s: COUGH Vital Signs Vital Name Observation Time Observation Value Comments Source Systolic blood 2021-05-12 14:46:00 134 mm[Hg] Univer sity of pressure [facility] Diastolic blood 2021-05-12 14:46:00 66 mm[Hg] Unive rsity of pressure [facility] Heart rate 2021-05-12 14:46:00 118 /min [facility] Body temperature 2021-05-12 14:46:00 37.33 [place] [facility] Respiratory rate 2021-05-12 14:46:00 22 /min [facility] Body weight 2021-05-12 14:46:00 102.059 kg [facility] Oxygen saturation in 2021-05-12 14:46:00 100 /min [facility] Arterial blood by [facility] Pulse oximetry [place] Procedures Procedure Date / Time Performed Performing Clinician Sourrianna e XR CHEST 2 VW 2021-05-12 16:27:08 Turner Garcia [facility] RAPID INFLUENZA A/B 2021-05-12 15:13:00 Turner Garcia [facility] NOTICE OF PRIVACY 2021-05-12 14:43:20 Doctor Unassigned, No [facility] Name [facility] CONSENT/REFUSAL FOR 2021-05-12 14:43:06 Doctor Unassigned, No [facility] DIAGNOSIS AND Name [facility] TREATMENT Encounters Start End Encounter Admission Attending Care Care Encounter Source Date/Time Date/Time Type Type Clinicians Facility Department ID 2021-05-13 2021-05-13 Letter SALBADOR Cabrera [id number] Univers 00:00:00 00:00:00 (Out) Desi CONRAD [id number] it y of [facility] [id number] [facility] [id number] [facility] 019 Branch 2021-05-12 2021-05-12 Emergency X [facility] ERT [id number] Univers 08:47:00 11:17:00 TURNER rodriguez [facility] 2021-05-12 2021-05-12 Emergency [facility] [id number] Univers 08:47:00 11:17:00 Turner MARIE [id number] ity [facility] [id number] [facility] [id number] [facility] 084 Branch Results This patient has no known results.
[2021-09-05] MEDS ORDERED: ONDANSETRON 4 MG/2 ML VIAL ONE (00:21)
[2021-09-05] MEDS ORDERED: MORPHINE 4 MG/ML SYR ONE (00:21)
[2021-09-05 00:56] LABS: Absolute Lymphocytes (CBC) 2.1 K/uL (0.7-4.9); Hematocrit 41.1 % (39.6-49.0); Lymphocytes % 15.7 % (15.3-44.8); MPV 7.7 fL (7.6-11.3); RBC Red Blood Cell Count 5.07 M/uL (4.33-5.43)
[2021-09-05 01:13] LABS: Protime INR 0.97
[2021-09-05 01:23] LABS: ALT/SGPT 34 U/L (12-78); AST/SGOT 14 U/L (15-37); Albumin 2.3 g/dL (3.4-5.0); Alkaline Phosphatase 181 U/L (45-117); BUN Blood Urea Nitrogen 54 mg/dL (7-18); Bicarbonate 22 mmol/L (21-32); Bilirubin Total 0.1 mg/dL (0.2-1.0); Glomerular Filtration Rate 17 ml/min (=/>90); Glucose Level 299 mg/dL (74-106); Magnesium 1.9 mg/dL (1.8-2.4); NT PRO-BNP 1804 pg/mL (<125); Potassium 4.1 mmol/L (3.5-5.1); Protein, Total 6.3 g/dL (6.4-8.2); Sodium Level 135 mmol/L (136-145); Troponin High Sensitivity 21.2 pg/mL (<58.9)
[2021-09-05 01:25] LABS: Bilirubin Direct < 0.1 mg/dL (0-0.2)
[2021-09-05] MEDS ORDERED: NA CHLORIDE 0.9% 1,000 ML ONE ×2 (01:29→04:47)
[2021-09-05 02:30] LABS: Urine Blood 2+ (Negative); Urine Glucose 2+ (Negative); Urine Protein 3+ (Negative)
--- NOTE | 2021-09-05 03:05 | EDPHYS ---
Physician Documentation [facility] Name: Chava Pate Age: 46 yrs Sex: Male : 1975 Arrival Date: 09/04/2021 Time: 20:53 Bed 13 Private MD: ED Physician Tra Preston HPI: 09/04 23:25 This 46 yrs old Male presents to ER via Ambulatory with complaints of Feet mh7 Swelling, Ankle Swelling. 23:25 The patient presents with pain, that is acute, swelling. mh7 23:25 The complaints affect the bilateral feet and ankles. Context: The problem was sustained mh7 at an unknown site, resulted from an unknown cause, the patient can fully bear weight, the patient is able to ambulate, with mild difficulty, Problem is a result from a previous injury: No. Onset: The symptoms/episode began/occurred yesterday. Modifying factors: The symptoms are alleviated by nothing. the symptoms are aggravated by weight bearing. Associated signs and symptoms: Pertinent negatives calf tenderness, fever, nausea, numbness, rash, tingling, vomiting, warmth, weakness. Treatment prior to arrival includes: no previous treatment. Severity of symptoms: At their worst the symptoms were moderate, yesterday, in the emergency department the symptoms have improved, moderately. Historical: - Allergies: 21:28 No Known Allergies; ld1 - Home Meds: 21:28 None [Active]; ld1 - PMHx: 21:28 Diabetes - NIDDM; Hypertensive disorder; PERIPHERAL NEUROPATHY; ld1 - PSHx: 21:28 None; ld1 - Immunization history:: Adult Immunizations up to date, Client reports receiving the 2nd dose of the Covid vaccine. - Social history:: Smoking status: Patient denies any tobacco usage or history of. Patient uses alcohol, occasionally. ROS: 23:25 Constitutional: Negative for fever, chills, and weight loss, Eyes: Negative for injury, mh7 pain, redness, and discharge, ENT: Negative for injury, pain, and discharge, Neck: Negative for injury, pain, and swelling, Cardiovascular: Negative for chest pain, palpitations, and edema, Respiratory: Negative for shortness of breath, cough, wheezing, and pleuritic chest pain, Abdomen/GI: Negative for abdominal pain, nausea, vomiting, diarrhea, and constipation, Back: Negative for injury and pain, : Negative for injury, bleeding, discharge, and swelling, Skin: Negative for injury, rash, and discoloration, Neuro: Negative for headache, weakness, numbness, tingling, and seizure, Psych: Negative for depression, anxiety, suicide ideation, homicidal ideation, and hallucinations, Allergy/Immunology: Negative for hives, rash, and allergies, Endocrine: Negative for neck swelling, polydipsia, polyuria, polyphagia, and marked weight changes, Hematologic/Lymphatic: Negative for swollen nodes, abnormal bleeding, and unusual bruising. Exam: 23:25 Constitutional: This is a well developed, well nourished patient who is awake, alert, mh7 and in no acute distress. Head/Face: Normocephalic, atraumatic. Eyes: Pupils equal round and reactive to light, extra-ocular motions intact. Lids and lashes normal. Conjunctiva and sclera are non-icteric and not injected. Cornea within normal limits. Periorbital areas with no swelling, redness, or edema. Neck: Trachea midline, no thyromegaly or masses palpated, and no cervical lymphadenopathy. Supple, full range of motion without nuchal rigidity, or vertebral point tenderness. No Meningismus. Chest/axilla: Normal chest wall appearance and motion. Nontender with no deformity. No lesions are appreciated. Cardiovascular: Regular rate and rhythm with a normal S1 and S2. No gallops, murmurs, or rubs. Normal PMI, no JVD. No pulse deficits. Respiratory: Lungs have equal breath sounds bilaterally, clear to auscultation and percussion. No rales, rhonchi or wheezes noted. No increased work of breathing, no retractions or nasal flaring. Abdomen/GI: Soft, non-tender, with normal bowel sounds. No distension or tympany. No guarding or rebound. No evidence of tenderness throughout. Back: No spinal tenderness. No costovertebral tenderness. Full range of motion. Skin: Warm, dry with normal turgor. Normal color with no rashes, no lesions, and no evidence of cellulitis. 23:25 Neuro: Awake and alert, GCS 15, oriented to person, place, time, and situation. Cranial nerves II-XII grossly intact. Motor strength 5/5 in all extremities. Sensory grossly intact. Cerebellar exam normal. Normal gait. Psych: Awake, alert, with orientation to person, place and time. Behavior, mood, and affect are within normal limits. 23:25 Musculoskeletal/extremity: Extremities: noted in the left ankle and lower leg: swelling, tenderness, ROM: intact in all extremities, Circulation is intact in all extremities. Sensation intact. Compartment Syndrome exam of affected extremity: is normal. no numbness, no tingling, no sensation deficit, no palor, no weak pulses, Joints: the left ankle displays swelling, tenderness, Weight bearing: able to fully bear weight, without difficulty, Tendon exam: specific tendon testing normal through active and passive range of motion DVT Exam: negative Homans' sign noted on exam, no appreciated bluish discoloration, no erythema, no increased warmth, pain, that is mild, of the left leg, of the ankle and lower leg, swelling, that is mild, of the left ankle and lower leg, tenderness, that is mild, of the left ankle and lower leg, Calves: are non-tender, have equal circumference. Vital Signs: 21:14 BP 152 / 85; Pulse 102; Resp 18; Temp 98.8(TE); Pulse Ox 97% on R/A; Weight 99.79 kg; ld1 Height 5 ft. 8 in. (172.72 cm); Pain 0/10; 21:14 Body Mass Index 33.45 (99.79 kg, 172.72 cm) ld1 MDM: 09/05 03:01 Differential diagnosis: closed fracture, contusion, abrasion, tendonitis, pedal edema. [facility] Data reviewed: vital signs, nurses notes, old medical records, lab test result(s), cardiac enzymes, CBC, electrolytes, urinalysis, EKG, radiologic studies, plain films, ultrasound. Data interpreted: Pulse oximetry: on room air is 97 %. Interpretation: normal. Counseling: I had a detailed discussion with the patient and/or guardian regarding: the historical points, exam findings, and any diagnostic results supporting the discharge/admit diagnosis, the presence of at least one elevated blood pressure reading (>120/80) during this emergency department visit, lab results, radiology results, the need for further work-up and treatment in the hospital. Response to treatment: the patient's symptoms have mildly improved after treatment. 03:04 Patient medically screened. [facility] 09/04 23:55 Order name: Basic Metabolic Panel; Complete Time: 01:43 [facility] 09/04 23:55 Order name: CBC with Diff; Complete Time: 01:13 [facility] 09/04 23:55 Order name: LFT's; Complete Time: 01:43 [facility] 09/04 23:55 Order name: Magnesium; Complete Time: 01:43 [facility] 09/04 23:55 Order name: NT PRO-BNP; Complete Time: 01:43 [facility] 09/04 23:55 Order name: PT-INR; Complete Time: 01:43 [facility] 09/04 23:55 Order name: Troponin HS; Complete Time: 01:43 [facility] 09/04 23:55 Order name: XRAY Chest (1 view) [facility] 09/04 23:56 Order name: Ankle Left 3 View XRAY [facility] 09/05 02:31 Order name: Urine Dipstick-Ancillary; Complete Time: 02:38 [facility] 09/05 03:20 Order name: SARS-COV-2 RT PCR (Document "Date of Onset" if Symptomatic) [facility] 09/05 05:56 Order name: Renal Panel [facility] 09/05 07:36 Order name: Glucose, Ancillary Testing [facility] 09/05 12:13 Order name: Glucose, Ancillary Testing [facility] 09/04 23:55 Order name: EKG; Complete Time: 23:55 [facility] 09/04 23:55 Order name: Cardiac monitoring; Complete Time: 01:35 [facility] 09/04 23:55 Order name: EKG - Nurse/Tech; Complete Time: 00:55 [facility] 09/04 23:55 Order name: IV Saline Lock; Complete Time: 00:42 [facility] 09/04 23:55 Order name: Labs collected and sent; Complete Time: 00:42 [facility] 09/04 23:55 Order name: O2 Per Protocol; Complete Time: 23:57 [facility] 09/04 23:55 Order name: O2 Sat Monitoring; Complete Time: 23:57 [facility] 09/04 23:55 Order name: Urine Dipstick-Ancillary (obtain specimen); Complete Time: 02:32 [facility] 09/04 23:56 Order name: Foot Left 3 View XRAY [facility] 09/04 23:56 Order name: US Extremity Venous W Compression Clement [facility] 09/05 10:50 Order name: US EDMS Administered Medications: 00:27 Drug: morphine 4 mg Route: IVP; Site: left forearm; ke1 00:27 Drug: Zofran (Ondansetron) 4 mg Route: IVP; Site: left forearm; ke1 01:31 Drug: NS 0.9% 1000 ml Route: IV; Rate: 1000 ml; Site: left forearm; ke1 Disposition Summary: 09/05/21 03:04 Hospitalization Ordered Hospitalization Status: Inpatient Admission [facility] Provider: Chava Phelan Enrike Condition: Stable [facility] Problem: new [facility] Symptoms: have improved [facility] Bed/Room Type: Standard [facility] Location: Telemetry/MedSurg (Inpatient)(09/05/21 15:38) dw Room Assignment: 209(09/05/21 15:38) Diagnosis - Acute on chronic renal failure [facility] - Peripheral edema [facility] Forms: - Medication Reconciliation Form [facility] - SBAR form [facility] Signatures: Dispatcher [employer] EDTherese Zelaya RN RN dw Garcia, Cindy, RN RN cg Holmes, Maurice, MD MD [facility] Carol Anne RN RN ld1 Chivo Desir RN RN ke1 Corrections: (The following items were deleted from the chart) 03:32 03:04 Telemetry/MedSurg (Inpatient) [facility] cg 03:32 03:04 [facility] cg 15:38 03:32 [facility] ER HOLD cg dw 15:38 03:32 ERHOLD- cg dw
--- NOTE | 2021-09-05 03:05 | ER ---
Nurse's Notes [facility] Name: Chava Pate Age: 46 yrs Sex: Male : 1975 Arrival Date: 09/04/2021 Time: 20:53 Bed 13 Private MD: Diagnosis: Acute on chronic renal failure;Peripheral edema Presentation: 09/04 21:14 Chief complaint: Patient states: HORTENCIA foot swelling - worse than usual. Coronavirus ld1 screen: At this time, the client does not indicate any symptoms associated with coronavirus-19. Ebola Screen: No symptoms or risks identified at this time. Initial Sepsis Screen: Does the patient meet any 2 criteria? No. Patient's initial sepsis screen is negative. Does the patient have a suspected source of infection? No. Patient's initial sepsis screen is negative. Risk Assessment: Do you want to hurt yourself or someone else? Patient reports no desire to harm self or others. Onset of symptoms was September 04, 2021. 21:14 Method Of Arrival: Ambulatory ld1 21:14 Acuity: EDINSON 3 ld1 Triage Assessment: 21:28 General: Appears in no apparent distress. comfortable, Behavior is calm, cooperative, ld1 appropriate for age. Pain: Denies pain. EENT: No signs and/or symptoms were reported regarding the EENT system. Neuro: Level of Consciousness is awake, alert, obeys commands, Oriented to person, place, time, situation. Cardiovascular: Capillary refill < 3 seconds Patient's skin is warm and dry. Cardiovascular:. Respiratory: Airway is patent Respiratory effort is even, unlabored. Derm:. Musculoskeletal: Swelling present in right leg and left leg. Historical: - Allergies: 21:28 No Known Allergies; ld1 - Home Meds: 21:28 None [Active]; ld1 - PMHx: 21:28 Diabetes - NIDDM; Hypertensive disorder; PERIPHERAL NEUROPATHY; ld1 - PSHx: 21:28 None; ld1 - Immunization history:: Adult Immunizations up to date, Client reports receiving the 2nd dose of the Covid vaccine. - Social history:: Smoking status: Patient denies any tobacco usage or history of. Patient uses alcohol, occasionally. Screenin:15 Abuse screen: Denies threats or abuse. Nutritional screening: No deficits noted. ke1 Tuberculosis screening: No symptoms or risk factors identified. Fall Risk No fall in past 12 months (0 pts). No secondary diagnosis (0 pts). No IV (0 pts). Ambulatory Aid- None/Bed Rest/Nurse Assist (0 pts). Gait- Normal/Bed Rest/Wheelchair (0 pts) Mental Status- Oriented to own ability (0 pts). Total Pruitt Fall Scale indicates No Risk (0-24 pts). Assessment: 22:40 Cardiovascular: Capillary refill < 3 seconds Edema. ke1 22:41 Musculoskeletal: Swelling present in right leg and left leg. ke1 23:14 Reassessment: Patient appears in no apparent distress at this time. Patient is alert, ke1 oriented x 3, equal unlabored respirations, skin warm/dry/pink. Vital Signs: 21:14 BP 152 / 85; Pulse 102; Resp 18; Temp 98.8(TE); Pulse Ox 97% on R/A; Weight 99.79 kg; ld1 Height 5 ft. 8 in. (172.72 cm); Pain 0/10; 21:14 Body Mass Index 33.45 (99.79 kg, 172.72 cm) ld1 ED Course: 20:53 Patient arrived in ED. ja2 21:16 Triage completed. ld1 21:28 Arm band placed on right wrist. ld1 22:30 Chivo Desir RN is Primary Nurse. ke1 23:01 Tra Preston MD is Attending Physician. mh7 23:15 Bed in low position. Call light in reach. ke1 23:57 Inserted saline lock: 20 gauge in right antecubital area, using aseptic technique. ke1 05 00:00 Inserted saline lock: 22 gauge in left forearm, using aseptic technique. By [facility].ke1 00:24 XRAY Chest (1 view) In Process Unspecified. EDMS 00:24 Ankle Left 3 View XRAY In Process Unspecified. EDMS 00:24 Foot Left 3 View XRAY In Process Unspecified. EDMS 00:54 US Extremity Venous W Compression Hortencia In Process Unspecified. EDMS 03:03 Chava Phelan is Hospitalizing Provider. [facility] 03:31 SARS-COV-2 RT PCR (Document "Date of Onset" if Symptomatic) Sent. ke1 07:27 Primary Nurse role handed off by Chivo Desir RN bd Administered Medications: 00:27 Drug: morphine 4 mg Route: IVP; Site: left forearm; ke1 00:27 Drug: Zofran (Ondansetron) 4 mg Route: IVP; Site: left forearm; ke1 01:31 Drug: NS 0.9% 1000 ml Route: IV; Rate: 1000 ml; Site: left forearm; ke1 Medication: 09/04 23:15 VIS not applicable for this client. ke1 Outcome: 09/05 03:04 Decision to Hospitalize by Provider. [facility] 16:09 Admitted to Tele accompanied by [facility], room 209, Report called to lorene winter 16:09 Condition: stable 16:09 Discharge instructions given to Instructed on the need for admit. 16:46 Patient left the ED. Signatures: Dispatcher [employer] EDMS Kita Calixto Shelby RN RN ss Tra Preston MD MD 7 Carol Anne RN RN 1 April John Jennifer, RN RN 6 Chivo Desir RN RN ke1
--- NOTE | 2021-09-05 04:34 | P.HP ---
Certification for Inpatient Patient admitted to: Inpatient With expected LOS: <2 Midnights Patient will require the following post-hospital care: None Practitioner: I am a practitioner with admitting privileges, knowledge of patient current condition, hospital course, and medical plan of care. Services: Services provided to patient in accordance with Admission requirements found in Title 42 Section 412.3 of the Code of Federal Regulations Patient History Date of Service: 09/05/21 Reason for admission: Acute on Chronic Renal Failure History of Present Illness: Patient is a 46-year-old male with past medical history of hypertension and type 2 diabetes who presented to the emergency department with complaints of worsening bilateral foot swelling and pain. venous ultrasound negative for DVT. Labs significant for creatinine 4.19 (3.37 4 months ago, 1.7 1 year ago), GFR 17, BUN 54, WBC 13, BNP 1800, glucose 299. Patient was given morphine and Zofran in the ED with mild improvement in his symptoms. ED provider wishes to admit patient for further evaluation and treatment. Allergies No Known Allergies Allergy (Verified 10/19/17 00:45) Home medications list reviewed: Yes Home Medications: Atorvastatin Calcium [Lipitor*] 20 mg PO BEDTIME #30 tab 10/22/17 levoFLOXacin [Levaquin] 500 mg PO DAILY #10 tab 10/22/17 - Past Medical/Surgical History Diabetic: Yes -: IDDM -: High Cholesterol -: Hypertension Past Surgical History: Patient denies surgical history Psychosocial/ Personal History: Patient lives at home alone. - Family History Father -: Diabetes - Social History Smoking Status: Never smoker Alcohol use: No CD- Drugs: No Caffeine use: No Place of Residence: Home Review of Systems Cardiovascular: Edema Musculoskeletal: Leg Pain, Foot Pain Physical Examination - Physical Exam General: Alert, In no apparent distress, Oriented x3 HEENT: Atraumatic, PERRLA, EOMI, Sclerae nonicteric Neck: Supple, 2+ carotid pulse no bruit, No LAD, Without JVD or thyroid abnormality Respiratory: Clear to auscultation bilaterally, Normal air movement Cardiovascular: Regular rate/rhythm, Normal S1 S2, Edema Gastrointestinal: Normal bowel sounds, No tenderness Musculoskeletal: No tenderness Integumentary: No rashes Neurological: Normal speech, Normal strength at 5/5 x4 extr, Normal tone, Normal affect - Studies Laboratory Data (last 24 hrs) 09/05/21 00:25: PT 10.7, INR 0.97 09/05/21 00:25: WBC 13.6 H, Hgb 13.4 L, Hct 41.1, Plt Count 283 09/05/21 00:25: Sodium 135 L, Potassium 4.1, BUN 54 H, Creatinine 4.19 H, Glucose 299 H, Magnesium 1.9, Total Bilirubin 0.1 L, AST 14 L, ALT 34, Alkaline Phosphatase 181 H Assessment and Plan - Problems (Diagnosis) (1) Acute on chronic renal failure Current Visit: Yes Status: Acute Qualifiers: Acute renal failure type: unspecified Chronic kidney disease stage: stage 5, not on chronic dialysis Qualified Code(s): N17.9 - Acute kidney failure, unspecified; N18.5 - Chronic kidney disease, stage 5 (2) Type 2 diabetes mellitus Current Visit: Yes Status: Chronic Qualifiers: Diabetes mellitus meterman insulin use: without meterman use Diabetes mellitus complication status: with hyperglycemia Qualified Code(s): E11.65 - Type 2 diabetes mellitus with hyperglycemia (3) Hypertension Current Visit: Yes Status: Chronic Qualifiers: Hypertension type: primary hypertension Qualified Code(s): I10 - Essential (primary) hypertension - Plan -Nephrology consulted and renal panel ordered. Hold nephrotoxic drugs and monitor kidney function. -ACHS accu checks with moderate sliding scale insulin and diabetic diet -monitor and replete electrolytes as necessary -reconcile and cont home medications -heparin for VTE ppx Discharge Plan: Home Plan to discharge in: 48 Hours - Advance Directives Does patient have a Living Will: No Does patient have a Durable POA for Healthcare: No - Code Status/Comfort Care Code Status Assessed: Yes (Full) Critical Care: No Time Spent Managing Pts Care (In Minutes): 70
[2021-09-05] MEDS ORDERED: ONDANSETRON 4 MG/2 ML VIAL IV PRN (04:35)
[2021-09-05] MEDS ORDERED: ACETAMINOPHEN 500 MG TAB PO PRN (04:35)
[2021-09-05] MEDS ORDERED: NA CHLORIDE 0.9% 1,000 ML IV SCH (05:00)
[2021-09-05 05:55] LABS: Albumin 2.1 g/dL (3.4-5.0); Phosphorus 4.2 mg/dL (2.5-4.9); Potassium 4.9 mmol/L (3.5-5.1)
[2021-09-05] MEDS: INSULIN -REGULAR HUMAN 50 UNIT/0.5 ML ML SQ SCH ×4 (07:28→21:00)
[2021-09-05] MEDS ORDERED: INSULIN -REGULAR HUMAN 50 UNIT/0.5 ML ML ONE ×2 (07:54→12:18)
[2021-09-05] MEDS: HEPARIN 5000 UNIT/ML 1 ML VIAL SQ SCH ×2 (09:00→16:56)
[2021-09-05] MEDS ORDERED: HEPARIN 5000 UNIT/ML 1 ML VIAL ONE (09:31)
--- NOTE | 2021-09-05 10:49 | RAD REPORT ---
EXAM DESCRIPTION: US - Renal Ultrasound-Complete - 09/05/2021 10:33 am CLINICAL HISTORY: Acute renal insufficiency COMPARISON: April 2021 cat scan FINDINGS: The right kidney measures 10 cm with an increased echotexture. The left kidney measures 11 cm with an increased echotexture. Hydronephrosis is not seen. No gross abnormality of bladder IMPRESSION: Increased renal echotexture consistent with parenchymal disease
--- NOTE | 2021-09-05 11:53 | RAD REPORT ---
EXAM DESCRIPTION: RAD - Foot Left 3 View - 09/05/2021 12:23 am CLINICAL HISTORY: 46 years Male, Pain COMPARISON: None. FINDINGS/IMPRESSION: 1. Mild cortical irregularity in the tip of the medial malleolus with adjacent soft tissue swelling suspicious for avulsion injury. 2. No dislocation in the foot or ankle. 3. Large plantar calcaneal spur. Electronically signed by: Shayne Feldman MD 09/05/2021 12:44 AM CDT Due to temporary technical issues with the PACS/Fluency reporting system, reports are being signed by the in house radiologist without review as a courtesy to ensure prompt reporting. The interpreting r adiologist is fully responsible for the content of the report.
--- NOTE | 2021-09-05 11:57 | RAD REPORT ---
EXAM DESCRIPTION: US - Extrem Venous W Compress Clement - 09/05/2021 1:34 am CLINICAL HISTORY: 46 years Male, Swelling COMPARISON: None. TECHNIQUE: Grayscale, color Doppler, and spectral Doppler analysis of the veins of both lower extrem ities was performed with Doppler. FINDINGS: Bilateral common femoral, superficial femoral, and popliteal veins appear patent with norm al compressibility, Doppler flow, and augmentation. Bilateral posterior tibial and greater saphenous veins appear patent. IMPRESSION: No evidence of lower extremity deep venous thrombosis bilaterally. Electronically signed by: Marcell Sifuentes MD 09/05/2021 1:11 AM CDT Due to temporary technical issues with the PACS/Fluency reporting system, reports are being signed by the in house radiologist without review as a courtesy to ensure prompt reporting. The interpreting r adiologist is fully responsible for the content of the report.
--- NOTE | 2021-09-05 12:40 | RAD REPORT ---
EXAM DESCRIPTION: RAD - Ankle Left 3 View - 09/05/2021 12:23 am CLINICAL HISTORY: 46 years Male, Pain COMPARISON: None. FINDINGS/IMPRESSION: 1. Mild cortical irregularity in the tip of the medial malleolus with adjacent soft tissue swelling suspicious for avulsion injury. 2. No dislocation in the foot or ankle. 3. Large plantar calcaneal spur. Electronically signed by: Shayne Feldman MD 09/05/2021 12:44 AM CDT Due to temporary technical issues with the PACS/Fluency reporting system, reports are being signed by the in house radiologist without review as a courtesy to ensure prompt reporting. The interpreting r adiologist is fully responsible for the content of the report.
--- NOTE | 2021-09-05 12:59 | RAD REPORT ---
EXAM DESCRIPTION: RAD - Chest Single View - 09/05/2021 12:23 am CLINICAL HISTORY: 46 years Male, SWELLING COMPARISON: None. FINDINGS: Low lung volumes and lordotic positioning accentuating the cardiomediastinal silhouette. No focal consolidation, pneumothorax or pleural effusion. Osseous structures are unremarkable. IMPRESSION: No acute findings. Electronically signed by: Shayne Feldman MD 09/05/2021 12:40 AM CDT Due to temporary technical issues with the PACS/Fluency reporting system, reports are being signed by the in house radiologist without review as a courtesy to ensure prompt reporting. The interpreting r adiologist is fully responsible for the content of the report.
--- NOTE | 2021-09-05 13:39 | CON ---
Date of Consultation: 09/05/2021 Reason For Consultation: Elevated BUN and creatinine, anasarca. History Of Present Illness: This is a pleasant 46-year-old gentleman with significant past medical h istory of diabetes since 20 years, complicated with neuropathy, questionable of retinopathy, hyperten manda, hyperlipidemia, the patient was in his regular state of health. According to him, he is off al l of his medications for a few months because of lack of coverage, gradually on the last 2 weeks star brad having increase in his leg swelling without any shortness of breath. For that reason, he reporte d to the hospital. The patient denied taking any nonsteroidal or any recent change in his medication . As I mentioned, the patient off his blood pressure medications and other medications. The patient is not taking any nonsteroidal. The patient knows that he has a chronic kidney disease, but he does not know his baseline. Reviewing the record for the patient back in April this year, his creatini ne was 3.3 with GFR of 20, but 1 year back in August 2020, his creatinine was 1.7 with GFR of 41. Again , the patient denied any other clear insult. He denied any drug use. Past Medical History: Includes; 1.Hypertension. 2.Diabetes complicated with neuropathy. 3.Edema. 4.Hyperlipidemia. Allergies: NO KNOWN DRUG ALLERGIES. Home Medications: None. Past Surgical History: Negative. Family History: Positive for diabetes and hypertension. Social History: Denied smoking, denied drinking, denied drug abuse. Review of Systems: Head and Neck: No red eye. No ear pain. GI: No nausea, no vomiting. Has increased abdominal girth. : No polyuria. No dysuria. No hematuria. Outside Physical Damage Appraiser: Not applicable. Respiratory: No shortness of breath. No orthopnea. Cardiovascular: Has leg swelling. No chest pain. Endocrine: No polydipsia. Skin: No rash except on his left leg. Neuro: Has neuropathy. Musculoskeletal: Generalized fatigue. Physical Examination: Vital Signs: When I saw the patient; blood pressure 158/98, pulse of 77, afebrile, earlier was stabl e also. Chest: Clear to auscultation. Heart: S1, S2. Regular. Abdomen: Soft. Extremity: +2 edema. Neurological: Alert, oriented x3. No focal. Laboratory Data: Back in August 2020; creatinine 1.7, GFR of 41. April 2021; creatinine 3.3, GFR of 20. Today lab data; sodium 137, potassium 4.9, bicarb 25, BUN 53, creatinine 3.9, GFR of 18, calcium 8.2. BNP 1800. Albumin 2.1. Corrected calcium is 9.8. WBC 13.6, H and H 13.4/41.1, platelets 283 . Urinalysis; specific gravity of 1.020, +3 protein, he has before. Hepatitis workup was negative b ack in 2018. Assessment And Plan: 1.Acute kidney injury on advanced chronic kidney disease. The acute kidney injury mostly secondary to progression of the disease of diabetes nephropathy, but it looked fast to progression. There is n o activity on the urine, but he has significant proteinuria, our differential diagnosis;. a.Progression of diabetes nephropathy. b.To rule out any autoimmune immune disease. c.The patient does not have any insult of medications. I am going to go ahead and send for full wor kup with the presence of significant proteinuria. We will send for any workup for serum protein elec trophoresis and we will follow up the patient. d.I am going to avoid adding any CHEPE inhibitor or ARB for the time being till we establish the diagn osis. 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 As above, we will send further workup including ultrasound, PTH to evaluate the chronicity of the disease and we will follow up. 3.Peripheral edema, possible secondary to nephrotic range of proteinuria. a.Deep vein thrombosis was ruled out. We will go ahead and get echocardiogram and we will quantify the proteinuria. We will start the patient on gentle diuresis and we will send for TSH and we will f ollow up. b.I will discontinue IV fluid. 4.Hypertension, not controlled with the presence of acute kidney injury. I am going to be avoiding any CHEPE inhibitor or ARB. I am going to start the patient on gentle diuresis with nonselective beta- radu and we will follow up. 5.Diabetes, not controlled. The patient was started on sliding scale. We will start the patient on glipizide and we will follow up with primary. AMBER/MORENO Voice ID: [id number] Report ID: [id number]
[2021-09-05] MEDS: glipiZIDE 5 MG TAB PO SCH (16:56)
[2021-09-05 17:27] VITALS: O2SAT 97
[2021-09-05 17:53] VITALS: BMI 34.2
[2021-09-05] MEDS ORDERED: HYDRALAZINE HCL 20 MG/ML VIAL IV PRN (18:21)
--- NOTE | 2021-09-05 18:21 | P.PN ---
Date of Service: 09/05/21 Patient seen and examined. He has been evaluated by nephrology. Worsening serum creatinine considered to be progressive disease. Pedal edema likely related to proteinuria. Nephrology is following and managing kidney issues. IV Lasix per nephrology Hydralazine as needed for BP spikes. Patient started on Coreg.
--- NOTE | 2021-09-05 19:23 | P.CNS ---
Date of Consult: 09/05/21 Reason for Consult: MICHELLE/ CKD Requesting Physician: ana lilia salmeron Primary Care Provider: Dr. Romo Chief Complaint: Acute on Chronic Renal Failure History of Present Illness: 46 yo HM DM, HTN presented to the ER with moderate, progressive LE pain with associated edema. He was found to have MICHELLE with proteinuria. He last saw his otolaryngology rep, Dr. Coreas, in 2019. He reports a poor diet with lots of diet soda. Patient is a 46-year-old male with past medical history of hypertension and type 2 diabetes who presented to the emergency department with complaints of worsening bilateral foot swelling and pain. venous ultrasound negative for DVT. Labs significant for creatinine 4.19 (3.37 4 months ago, 1.7 1 year ago), GFR 17, BUN 54, WBC 13, BNP 1800, glucose 299. Patient was given morphine and Zofran in the ED with mild improvement in his symptoms. ED provider wishes to admit patient for further evaluation and treatment. 23:25 This 46 yrs old Male presents to ER via Ambulatory with complaints of Feet mh7 Swelling, Ankle Swelling. 23:25 The patient presents with pain, that is acute, swelling. mh7 23:25 The complaints affect the bilateral feet and ankles. Context: The problem was sustained mh7 at an unknown site, resulted from an unknown cause, the patient can fully bear weight, the patient is able to ambulate, with mild difficulty, Problem is a result from a previous injury: No. Onset: The symptoms/episode began/occurred yesterday. Modifying factors: The symptoms are alleviated by nothing. the symptoms are aggravated by weight bearing. Associated signs and symptoms: Pertinent negatives calf tenderness, fever, nausea, numbness, rash, tingling, vomiting, warmth, weakness. Treatment prior to arrival includes: no previous treatment. Severity of symptoms: At their worst the symptoms were moderate, yesterday, in the emergency department the symptoms have improved, moderately. Allergies No Known Allergies Allergy (Verified 10/19/17 00:45) Home medications list reviewed: Yes Home Medications: NK [No Home Meds] 09/05/21 - Past Medical/Surgical History Diabetic: Yes -: IDDM -: High Cholesterol -: Hypertension -: CKD with proteinuria followed by Dr. Coreas Psychosocial/ Personal History: Patient lives at home alone. - Family History Father Medical History: Diabetes - Social History Alcohol use: No CD- Drugs: No Caffeine use: No Place of Residence: Home Review of Systems 10-point ROS is otherwise unremarkable Cardiovascular: Edema Musculoskeletal: Foot Pain Neurological: Numbness Physical Examination Temp Pulse Resp BP Pulse Ox 97.9 F 80 18 170/91 H 94 09/05/21 16:00 09/05/21 16:00 09/05/21 16:00 09/05/21 16:00 09/05/21 16:00 General: In no apparent distress, Oriented x3, Cooperative HEENT: Atraumatic Neck: Supple Respiratory: Clear to auscultation bilaterally Cardiovascular: Regular rate/rhythm, Edema Gastrointestinal: Soft and benign, Non-distended Musculoskeletal: No clubbing, No contractures Integumentary: No cyanosis, Skin lesion Neurological: Normal speech Laboratory Data (last 24 hrs) 09/05/21 00:25: PT 10.7, INR 0.97 09/05/21 00:25: WBC 13.6 H, Hgb 13.4 L, Hct 41.1, Plt Count 283 09/05/21 00:25: Sodium 135 L, Potassium 4.1, BUN 54 H, Creatinine 4.19 H, Glucose 299 H, Magnesium 1.9, Total Bilirubin 0.1 L, AST 14 L, ALT 34, Alkaline Phosphatase 181 H Imagings Data: EXAM DESCRIPTION: US - Renal Ultrasound-Complete - 09/05/2021 10:33 am CLINICAL HISTORY: Acute renal insufficiency COMPARISON: April 2021 cat scan FINDINGS: The right kidney measures 10 cm with an increased echotexture. The left kidney measures 11 cm with an increased echotexture. Hydronephrosis is not seen. No gross abnormality of bladder IMPRESSION: Increased renal echotexture consistent with parenchymal disease EXAM DESCRIPTION: RAD - Chest Single View - 09/05/2021 12:23 am CLINICAL HISTORY: 46 years Male, SWELLING COMPARISON: None. FINDINGS: Low lung volumes and lordotic positioning accentuating the cardiomediastinal silhouette. No focal consolidation, pneumothorax or pleural effusion. Osseous structures are unremarkable. IMPRESSION: No acute findings. Conclusions/Impression: MICHELLE may be CRS CKD IV with proteinuria likely DM nephropathy Hematuria? -No NSAIDs -Start Furosemide -Repeat UA in the AM HTN with CKD -Continue Coreg and titrate as needed LE Edema Elevated BNP -Start Furosemide Daily -Low sodium diet DM II with CKD & Polyneuropathy -RISS -Continue Glipizide -ADA diet Moderate malnutrition -Start Nepro Microcytosis -Check iron status CKD MBD -Start Vitamin D Thank you kindly for the consultation.
[2021-09-05] MEDS: carvediloL 6.25 MG TAB PO SCH (21:17)
[2021-09-06] MEDS: HEPARIN 5000 UNIT/ML 1 ML VIAL SQ SCH ×2 (00:03→09:13)
[2021-09-06 06:14] LABS: Absolute Lymphocytes (CBC) 1.7 K/uL (0.7-4.9); Hematocrit 36.4 % (39.6-49.0); Lymphocytes % 20.3 % (15.3-44.8); MPV 7.5 fL (7.6-11.3)
[2021-09-06 06:43] LABS: Albumin 2.1 g/dL (3.4-5.0); Bilirubin Total 0.2 mg/dL (0.2-1.0); Magnesium 1.9 mg/dL (1.8-2.4); Phosphorus 4.8 mg/dL (2.5-4.9); Protein, Total 5.9 g/dL (6.4-8.2); Thyroid Stimulating Hormone 0.67 uIU/mL (0.360-3.740); Uric Acid 7.1 mg/dL (3.5-7.2)
[2021-09-06] MEDS: INSULIN -REGULAR HUMAN 50 UNIT/0.5 ML ML SQ SCH ×2 (07:30→11:50)
--- NOTE | 2021-09-06 07:41 | EKG ---
Test Date: 2021-09-05 Test Time: 00:48:46 Senior Energy Market Coordinator: MATT MEASUREMENT RESULTS: Intervals: Rate: 83 MT: 114 QRSD: 86 QT: 386 QTc: 453 [place]: P: 42 MT: 114 QRS: -24 T: 73 INTERPRETIVE STATEMENTS: Normal sinus rhythm Nonspecific T wave abnormality Abnormal ECG Compared to ECG 09/11/2019 23:26:12 T-wave abnormality now present Short MT interval no longer present Electronically Signed On 09-06-21 07:37:27 CDT by Silver Bell
--- NOTE | 2021-09-06 08:08 | ECHO ---
HEIGHT: 5 ft 8 in WEIGHT: 225 lb 0 oz DATE OF STUDY: 09/05/[address]: Anahy Bhatia MD 2-DIMENSIONAL: YES M.MODE: YES DOPPLER: YES COLOR FLOW: YES TDS: NO PORTABLE: YES DEFINITY: NO BUBBLE STUDY: NO DIAGNOSIS: EDEMA CARDIAC HISTORY: CATHERIZATION: NO SURGERY: NO PROSTHETIC VALVE: NO PACEMAKER: NO MEASUREMENTS (cm) DIASTOLIC (NORMALS) SYSTOLIC (NORMALS) IVSd 1.2 (0.6-1.2) LA Diam 2.5 (1.9-4.0) LVEF 40-45% LVIDd 4.4 (3.5-5.7) LVIDs 3.3 (2.0-3.5) %FS % LVPWd 1.1 (0.6-1.2) Ao Diam 2.4 (2.0-3.7) 2 DIMENSIONAL ASSESSMENT: RIGHT ATRIUM: NORMAL LEFT ATRIUM: NORMAL RIGHT VENTRICLE: NORMAL LEFT VENTRICLE: NORMAL SIZE TRICUSPID VALVE: NORMAL MITRAL VALVE: NORMAL PULMONIC VALVE: NORMAL AORTIC VALVE: NORMAL PERICARDIAL EFFUSION: NONE AORTIC ROOT: NORMAL LEFT VENTRICULAR WALL MOTION: MILD GLOBAL HYPOKINESIS. DOPPLER/COLOR FLOW: NORMAL. COMMENTS: MILD GLOBAL HYPOKINESIS. EJECTION FRACTION 40-45%. NO EFFUSION. TECHNOLOGIST: YEN CROWE
[2021-09-06] MEDS ORDERED: DOCUSATE NA 100 MG CAP PO SCH (09:00)
[2021-09-06] MEDS ORDERED: NEPRO SHAKE 237 ML CAN PO SCH (09:00)
[2021-09-06] MEDS ORDERED: CALCITROL 0.25 MCG CAP PO SCH (09:00)
[2021-09-06] MEDS ORDERED: FUROSEMIDE 40 MG/4 ML VIAL IV SCH (09:00)
[2021-09-06] MEDS ORDERED: VITAMIN D 5,000 UNIT CAP PO SCH (09:00)
[2021-09-06] MEDS: carvediloL 6.25 MG TAB PO SCH (09:07)
[2021-09-06] MEDS: glipiZIDE 5 MG TAB PO SCH (10:24)
--- NOTE | 2021-09-06 10:30 | P.PN ---
Date of Service: 09/06/21 Vital Signs Temp Pulse Resp BP Pulse Ox 97.2 F 82 18 172/83 H 98 09/06/21 08:00 09/06/21 09:07 09/06/21 08:00 09/06/21 09:07 09/06/21 08:00 Medications Acetaminophen (Acetaminophen 500 Mg Tab) 500 mg PO Q4HP PRN PRN Reason: Pain scale 2-4 (Mild) Calcitriol (Calcitrol 0.25 Mcg Cap) 0.5 mcg PO DAILY [facility] Last Admin: 09/06/21 09:06 Dose: 0.5 mcg Documented by: Carvedilol (Carvedilol 12.5 Mg Tab) 12.5 mg PO BIDWM [facility] Cholecalciferol (Vitamin D 5,000 Unit Cap) 5,000 unit PO DAILY [facility] Last Admin: 09/06/21 09:00 Dose: 5,000 unit Documented by: Docusate Sodium (Docusate Na 100 Mg Cap) 100 mg PO BID [facility] Last Admin: 09/06/21 09:06 Dose: 100 mg Documented by: Enteral Nutritional Formula (Nepro Shake 237 Ml Can) 237 ml PO TID [facility] Furosemide (Furosemide 40 Mg/4 Ml Vial) 40 mg IV DAILY [facility] Last Admin: 09/06/21 09:06 Dose: 40 mg Documented by: Glipizide (Glipizide 5 Mg Tab) 5 mg PO BIDWM [facility] Last Admin: 09/05/21 16:56 Dose: 5 mg Documented by: Heparin Sodium (Porcine) (Heparin 5000 Unit/Ml 1 Ml Vial) 5,000 unit SQ Q8HR [facility] Last Admin: 09/06/21 09:13 Dose: 5,000 unit Documented by: Hydralazine HCl (Hydralazine Hcl 20 Mg/Ml Vial) 10 mg IV Q6HP PRN PRN Reason: FOR SBP>160 OR DBP>100 [facility] Last Admin: 09/05/21 18:42 Dose: 10 mg Documented by: Insulin Human Regular (Insulin -Regular Human 50 Unit/0.5 Ml Ml) 0 unit SQ [facility]; Protocol Last Admin: 09/05/21 21:00 Dose: Not Given Documented by: Ondansetron HCl (Ondansetron 4 Mg/2 Ml Vial) 4 mg IV Q6HP PRN PRN Reason: NAUSEA / VOMITING Sodium Chloride (Flush Normal Saline 10 Ml) 10 ml IV BID [facility] Last Admin: 09/06/21 09:12 Dose: 10 ml Documented by: Assessment/ Plan: Nephrology Feeling better today but still with mild pain in his feet No dyspnea No chest pain No acute events overnight Vitals, medications, blood work and imaging reviewed in the chart General: In no apparent distress, Oriented x3, Cooperative HEENT: Atraumatic Neck: Supple Respiratory: Clear to auscultation bilaterally Cardiovascular: Regular rate/rhythm, Edema Gastrointestinal: Soft and benign, Non-distended Musculoskeletal: No clubbing, No contractures Integumentary: No cyanosis, Skin lesion Neurological: Normal speech Laboratory Data (last 24 hrs) 09/05/21 00:25: PT 10.7, INR 0.97 09/05/21 00:25: WBC 13.6 H, Hgb 13.4 L, Hct 41.1, Plt Count 283 09/05/21 00:25: Sodium 135 L, Potassium 4.1, BUN 54 H, Creatinine 4.19 H, Glucose 299 H, Magnesium 1.9, Total Bilirubin 0.1 L, AST 14 L, ALT 34, Alkaline Phosphatase 181 H Imagings Data: EXAM DESCRIPTION: US - Renal Ultrasound-Complete - 09/05/2021 10:33 am CLINICAL HISTORY: Acute renal insufficiency COMPARISON: April 2021 cat scan FINDINGS: The right kidney measures 10 cm with an increased echotexture. The left kidney measures 11 cm with an increased echotexture. Hydronephrosis is not seen. No gross abnormality of bladder IMPRESSION: Increased renal echotexture consistent with parenchymal disease EXAM DESCRIPTION: RAD - Chest Single View - 09/05/2021 12:23 am CLINICAL HISTORY: 46 years Male, SWELLING COMPARISON: None. FINDINGS: Low lung volumes and lordotic positioning accentuating the cardiomediastinal silhouette. No focal consolidation, pneumothorax or pleural effusion. Osseous structures are unremarkable. IMPRESSION: No acute findings. Conclusions/Impression: MICHELLE may be CRS CKD IV with proteinuria likely DM nephropathy Hematuria? -No NSAIDs -Continue Furosemide -Repeat urine studies pending HTN with CKD -Increase Coreg 12.5mg BID LE Edema Elevated BNP -Continue Furosemide Daily -Low sodium diet DM II with CKD & Polyneuropathy -RISS -Continue Glipizide -ADA diet Moderate malnutrition -Continue Nepro Anemia in chronic illness Microcytosis -Check iron status CKD MBD PTH 177 -Continue Vitamin D Case reviewed with Dr. Phelan
--- NOTE | 2021-09-06 10:58 | P.DS ---
Admission Date: 09/05/21 Discharge Date: 09/06/21 Primary Care Provider: Dr. Romo Disposition: ROUTINE DISCHARGE Discharge Condition: FAIR Reason for Admission: Acute on Chronic Renal Failure - Problems (1) Acute renal failure superimposed on stage 4 chronic kidney disease Current Visit: Yes Status: Acute (2) Peripheral edema Current Visit: Yes Status: Acute (3) Type 2 diabetes mellitus Current Visit: Yes Status: Chronic Qualifiers: Diabetes mellitus detention insulin use: without medical terminologist use Diabetes mellitus complication status: with hyperglycemia Qualified Code(s): E11.65 - Type 2 diabetes mellitus with hyperglycemia Brief History of Present Illness: Patient is a 46-year-old male with past medical history of hypertension and type 2 diabetes who presented to the emergency department with complaints of worsening bilateral foot swelling and pain. Venous ultrasound negative for DVT. Labs significant for creatinine 4.19 (3.37 4 months ago, 1.7 1 year ago), GFR 17, BUN 54, WBC 13, BNP 1800, glucose 299. Patient was given morphine and Zofran in the ED with mild improvement in his symptoms. Patient admitted for further management. Hospital Course: Patient admitted to the medical floor and treated with IV Lasix for the pedal edema. Seen in consultation by nephrology, patient noted to have proteinuria and suspected to have progressive chronic kidney disease. Optimal blood pressure control recommended. Patient also has DM type II but overall has been noncompliant with medications. Hemoglobin A1c of 11.8. Patient started on oral hypoglycemics per nephrology. Compliance to ADA diet advised. Patient lower extremity edema significantly improved with diuresis. His serum creatinine also improved with a brief IV hydration. Patient deemed clinically stable for discharge. He will follow with nephrology for further management of his progressive kidney disease. He is prescribed glipizide for blood glucose control. He is also prescribed Coreg for blood pressure control. Vital Signs/Physical Exam: Temp Pulse Resp BP Pulse Ox 97.2 F 82 18 172/83 H 98 09/06/21 08:00 09/06/21 09:07 09/06/21 08:00 09/06/21 09:07 09/06/21 08:00 General: Alert, In no apparent distress, Oriented x3 HEENT: Mucous membr. moist/pink Neck: Supple, JVD not distended Respiratory: Clear to auscultation bilaterally, Normal air movement Cardiovascular: Regular rate/rhythm, Normal S1 S2, No murmurs, Edema (1+ bilateral lower extremity edema) Gastrointestinal: Soft and benign, Non-distended, No tenderness Musculoskeletal: No tenderness Integumentary: No cyanosis Neurological: Normal strength at 5/5 x4 extr Laboratory Data at Discharge: WBC 8.2 K/uL (4.3-10.9) D 09/06/21 05:47 Hgb 12.2 g/dL (13.6-17.9) L 09/06/21 05:47 Hct 36.4 % (39.6-49.0) L 09/06/21 05:47 Plt Count 312 K/uL (152-406) 09/06/21 05:47 PT 10.7 SECONDS (9.5-12.5) 09/05/21 00:25 INR 0.97 09/05/21 00:25 Sodium 140 mmol/L (136-145) 09/06/21 05:47 Potassium 4.0 mmol/L (3.5-5.1) 09/06/21 05:47 BUN 49 mg/dL (7-18) H 09/06/21 05:47 Creatinine 3.90 mg/dL (0.55-1.3) H 09/06/21 05:47 Glucose 95 mg/dL (74-106) 09/06/21 05:47 Uric Acid 7.1 mg/dL (3.5-7.2) 09/06/21 05:47 Phosphorus 4.8 mg/dL (2.5-4.9) 09/06/21 05:47 Magnesium 1.9 mg/dL (1.8-2.4) 09/06/21 05:47 Total Bilirubin 0.2 mg/dL (0.2-1.0) 09/06/21 05:47 AST 9 U/L (15-37) L 09/06/21 05:47 ALT 26 U/L (12-78) 09/06/21 05:47 Alkaline Phosphatase 117 U/L (45-117) 09/06/21 05:47 Home Medications: Calcitrol [Rocaltrol*] 0.5 mcg PO DAILY #60 cap 09/06/21 Cholecalciferol (Vitamin D3) [Vitamin D 5,000 IU Cap*] 5,000 unit PO DAILY #30 cap 09/06/21 Docusate [Colace Cap*] 100 mg PO BID #60 cap 09/06/21 Furosemide [Lasix] 40 mg PO DAILY #30 tab 09/06/21 Glipizide [Glipizide Xl] 2.5 mg PO DAILY #30 tab.er.24 09/06/21 carvediloL [Coreg] 25 mg PO BID #60 tab 09/06/21 New Medications: Docusate [Colace Cap*] 100 mg PO BID #60 cap carvediloL [Coreg] 25 mg PO BID #60 tab Glipizide [Glipizide Xl] 2.5 mg PO DAILY #30 tab.er.24 Furosemide [Lasix] 40 mg PO DAILY #30 tab Calcitrol [Rocaltrol*] 0.5 mcg PO DAILY #60 cap Cholecalciferol (Vitamin D3) [Vitamin D 5,000 IU Cap*] 5,000 unit PO DAILY #30 cap Diet: ADA Activity: Ad minh Followup: Ramon Romo MD [Primary Care Provider] - 1-2 Weeks Zeeshan Rojas DO [ACTIVE - CAN ADMIT] - 1-2 Weeks Time spent managing pt's care (in minutes): 37
[2021-09-06 13:20] VITALS: BP 135/73; TEMP 98.2
[2021-09-06] MEDS ORDERED: carvediloL 12.5 MG TAB PO SCH (21:00)
[2021-09-09 14:39] LABS: Hepatitis C Virus RNA (PCR)log <1.18 log IU/mL
[2021-09-10 10:18] LABS: HIV AG/AB 4TH GEN Non-reactive (Non-reactive)
[2021-09-12 09:09] LABS: Albumin, (SPE) 2.4 g/dL (3.8-4.8); Alpha-1-Globulins 0.3 g/dL (0.2-0.3); Alpha-2-Globulins 1.1 g/dL (0.5-0.9); Gamma Globulins 0.6 g/dL (0.8-1.7); INTERPRETATION REPORT
== END 2021-09-06 13:00 | disposition home or self-care (01) | DRG 683 ==
LOC: ER 20:52 → ERHOLD 09-05 04:27 → 2ND 09-05 16:11
PROVIDERS: ADMIT Internal Medicine; ATTEND Internal Medicine
DX: N17.9 Acute kidney failure, unspecified (principal); E44.0 Moderate protein-calorie malnutrition; I12.9 Hypertensive chronic kidney disease with stage 1 through stage 4 chronic kidney disease, or unspecified chronic kidney disease; N18.4 Chronic kidney disease, stage 4 (severe); E11.22 Type 2 diabetes mellitus with diabetic chronic kidney disease; E11.65 Type 2 diabetes mellitus with hyperglycemia; R60.9 Edema, unspecified; E11.21 Type 2 diabetes mellitus with diabetic nephropathy; E11.42 Type 2 diabetes mellitus with diabetic polyneuropathy; Z68.34 Body mass index [BMI] 34.0-34.9, adult; D63.8 Anemia in other chronic diseases classified elsewhere; Z91.14 Patient's other noncompliance with medication regimen; Z20.822 Contact with and (suspected) exposure to COVID-19
CPT/HCPCS: 36415; 71045; 76770; 80048; 80053; 80069; 80076; 81003; 82550; 82570; 82947; 83036; 83520; 83735; 83880; 83970; 84100; 84156; 84165; 84443; 84484; 84550; 85025; 85610; 86021; 86038; 86160; 86225; 86705; 86706; 87340; 87389; 87522; 93005; 93306; 93970; 96374; 96375; 99285; J0360; J1644; J1815; J1940; J2405; J7030; U0003

== ENCOUNTER 2021-09-25 02:55 | Observation (INO) | payer BC ==
--- OUTSIDE RECORDS SUMMARY | 2021-09-25 02:57 | XMS REPORT | Continuity of Care Document ---
:1975 Author Organization [facility] t Address [address] [place] [address] Dr. [address] [place] [address] Care Team Providers Name Role Phone JEFFREY [...] rs active active ity of problems problems [facility] Allergies, Adverse Reactions, Alerts Allergy Allergy Status Severity Reaction(s) Onset Inactive Treating Comm ents Source Name Type Date Date Clinician NO KNOWN Drug Active Univers ALLERGIE Class ity of S [facility] Social History Social Habit Start Date Stop Date Quantity Comments Source Exposure to Not sure [facility] SARS-CoV-2 (event) Medica l Branch Sex Assigned At [birth year] [facility] 00:00:00 00:00:00 [facility] Smoking Status Start Date Stop Date Source Unknown if ever smoked [facility] Medications Ordered Filled Start Stop Current Ordering Indication Dosage Frequency Signature Comments Components Source Medication Medication Date Date Medication? Clinician (SIG) Name Name albuterol Yes [id number] 2{puff} Inhale 2 Univers 90 1-22 Puffs ity of mcg/actuati 00:00: every 4 Kj as on inhaler 00 (four) Medical hours as Branch needed for Wheezing or Shortness of Breath. proMETHazin Yes [id number] 25mg Take 1 Univers e 25 mg 1-22 tablet by ity of tablet 00:00: mouth [place] 00 every 6 Medical (six) Branch hours as needed for Nausea and Vomiting (N/V). albuterol Yes [id number] 2{puff} Inhale 2 Univers 90 1-22 Puffs ity of mcg/actuati 00:00: every 4 Kj as on inhaler 00 (four) Medical hours as Branch needed for Wheezing or Shortness of Breath. proMETHazin Yes [id number] 25mg Take 1 Univers e 25 mg 1-22 tablet by ity of tablet 00:00: mouth [place] 00 every 6 Medical (six) Branch hours as needed for Nausea and Vomiting (N/V). amoxicillin 2021- No [id number] 1{tbl} Take 1 Univers -clavulanat 05-12-30 tablet [...] days. Indication s: COUGH amoxicillin 2021- No [id number] 1{tbl} Take 1 Univers -clavulanat 05-12-30 tablet [...] 14:46:00 134 mm[Hg] Univer sity of pressure [facility] Diastolic blood 2021-05-12 14:46:00 66 mm[Hg] Unive rsity of pressure [facility] Heart rate 2021-05-12 14:46:00 118 /min [facility] Body temperature 2021-05-12 14:46:00 37.33 [facility] Respiratory rate 2021-05-12 14:46:00 22 /min [facility] Body weight 2021-05-12 14:46:00 102.059 kg [facility] Oxygen saturation in 2021-05-12 14:46:00 100 /min [facility] Arterial blood by [facility] Pulse oximetry [place] Procedures Procedure Date / Time Performed Performing Clinician [place] e XR CHEST 2 VW 2021-05-12 16:27:08 Turner Garcia [facility] RAPID INFLUENZA A/B 2021-05-12 15:13:00 Turner Garcia [facility] NOTICE OF PRIVACY 2021-05-12 14:43:20 Doctor Unassigned, No [facility] PRACTICES Name [facility] CONSENT/REFUSAL FOR 2021-05-12 14:43:06 Doctor Unassigned, No [facility] DIAGNOSIS AND Name [facility] TREATMENT Encounters Start End Encounter Admission Attending Care Care Encounter Source Date/Time Date/Time Type Type Clinicians Facility Department ID 2021-05-13 2021-05-13 Letter SALBADOR Cabrera [id number] Univers 00:00:00 00:00:00 (Out) Desi CONRAD [id number] it y [facility] [id number] [facility] [id number] [facility] 019 Branch 2021-05-12 2021-05-12 Emergency X JOSE NYGEMMA ERT [id number] Univers 08:47:00 11:17:00 TURNER rodriguez [facility] 2021-05-12 2021-05-12 Emergency Jose [facility] [id number] Univers 08:47:00 11:17:00 Turner MARIE [id number] ity [facility] [id number] [facility] [phone] [place] [id number] [place] Results Test Description Test Time Test Comments Results Result Comments Source HEPATITIS B SURFACE ANTIBODY 2021-09-06 22:01:34 Test Item Value Reference Range Interpretation Comme nts HEPATITIS B SURFACE ANTIBODY (BEAKER) (test code = 647) < mIU/mL <8.0 Brush Material Preparer ID - DBHEPATITIS B CORE ANTIBODY, [id number] 21:52:25 Test Item Value Reference Range Interpretation Comments HEPATITIS B CORE IGM ANTIBODY Nonreactive Nonreactive (BEAKER) (test code = 645) Brush Material Preparer ID - DBHEPATITIS B SURFACE [id number] 21:52:19 Test Item Value Reference Range Interpretation Comments HEPATITIS B SURFACE ANTIGEN (2) Nonreactive Nonreactive (BEAKER) (test code = 2585) Specimen is considered negative for HBsAg.
[2021-09-25 03:41] LABS: Absolute Lymphocytes (CBC) 1.6 K/uL (0.7-4.9); Hematocrit 32.3 % (39.6-49.0); Lymphocytes % 16.7 % (15.3-44.8); MPV 7.9 fL (7.6-11.3); Protime INR 1.02; RBC Red Blood Cell Count 4.06 M/uL (4.33-5.43)
[2021-09-25 03:57] LABS: ALT/SGPT 39 U/L (12-78); AST/SGOT 17 U/L (15-37); Albumin 2.5 g/dL (3.4-5.0); Alkaline Phosphatase 170 U/L (45-117); BUN Blood Urea Nitrogen 59 mg/dL (7-18); Bicarbonate 21 mmol/L (21-32); Bilirubin Total 0.2 mg/dL (0.2-1.0); Glomerular Filtration Rate 17 ml/min (=/>90); Glucose Level 309 mg/dL (74-106); Magnesium 1.7 mg/dL (1.8-2.4); NT PRO-BNP 1259 pg/mL (<125); Potassium 4.7 mmol/L (3.5-5.1); Protein, Total 6.6 g/dL (6.4-8.2); Sodium Level 137 mmol/L (136-145)
[2021-09-25 03:58] LABS: Bilirubin Direct < 0.1 mg/dL (0-0.2)
[2021-09-25] MEDS ORDERED: FUROSEMIDE 40 MG/4 ML VIAL ONE (05:11)
--- NOTE | 2021-09-25 05:20 | P.HP ---
Certification for Inpatient Patient admitted to: Observation With expected LOS: <2 Midnights Patient will require the following post-hospital care: None Practitioner: I am a practitioner with admitting privileges, knowledge of patient current condition, hospital course, and medical plan of care. Services: Services provided to patient in accordance with Admission requirements found in Title 42 Section 412.3 of the Code of Federal Regulations Patient History Date of Service: 09/25/21 Reason for admission: CHF exacerbation History of Present Illness: 46-year-old male history of systolic congestive heart failure, CKD 4, diabetes mellitus type 2not insulin-dependent, hypertension presents emergency department for dyspnea on exertion and pedal edema. He was evaluated in the emergency department his labs were significant for hyperglycemia, CKD 4, elevated BNP he is noted to have increased swelling of lower extremities as well as increasing dyspnea on exertion over the course of last few days he reports he has been compliant with his Lasix 40 mg p.o. daily at home. Given patient's worsening symptoms with his compliance with his diuretic as well as the CKD 4 ED provider wishes to admit under observation for further evaluation with cardiology/nephrology. Allergies No Known Allergies Allergy (Verified 10/19/17 00:45) Home Medications: Calcitrol [Rocaltrol*] 0.5 mcg PO DAILY #60 cap 09/06/21 Cholecalciferol (Vitamin D3) [Vitamin D 5,000 IU Cap*] 5,000 unit PO DAILY #30 cap 09/06/21 Docusate [Colace Cap*] 100 mg PO BID #60 cap 09/06/21 Furosemide [Lasix] 40 mg PO DAILY #30 tab 09/06/21 Glipizide [Glipizide Xl] 2.5 mg PO DAILY #30 tab.er.24 09/06/21 carvediloL [Coreg] 25 mg PO BID #60 tab 09/06/21 - Past Medical/Surgical History Diabetic: Yes -: Diabetes mellitus type 2 -: High Cholesterol -: Hypertension -: CKD with proteinuria followed by Dr. Coreas -: Systolic CHF Psychosocial/ Personal History: Patient lives at home alone. - Family History Father -: Diabetes - Social History Smoking Status: Never smoker Alcohol use: No CD- Drugs: No Caffeine use: No Place of Residence: Home Review of Systems 10-point ROS is otherwise unremarkable Respiratory: Shortness of Breath, SOB with Excertion Cardiovascular: Edema Physical Examination - Physical Exam General: Alert, In no apparent distress, Oriented x3 HEENT: Atraumatic, PERRLA, Mucous membr. moist/pink, EOMI, Sclerae nonicteric Neck: Supple, 2+ carotid pulse no bruit, No LAD, Without JVD or thyroid abnormality Respiratory: Crackles/rales Cardiovascular: Regular rate/rhythm, Normal S1 S2, Edema (2+ pitting edema bilateral lower extremities) Capillary refill: <2 Seconds Gastrointestinal: Normal bowel sounds, No tenderness Musculoskeletal: No tenderness Integumentary: No rashes Neurological: Normal speech, Normal strength at 5/5 x4 extr, Normal tone, Normal affect - Studies Laboratory Data (last 24 hrs) 09/25/21 03:27: PT 11.2, INR 1.02 09/25/21 03:27: WBC 9.7, Hgb 11.1 L, Hct 32.3 L, Plt Count 297 09/25/21 03:27: Sodium 137, Potassium 4.7, BUN 59 H, Creatinine 4.19 H, Glucose 309 H, Magnesium 1.7 L, Total Bilirubin 0.2, AST 17, ALT 39, Alkaline Phosphatase 170 H Microbiology Data (last 24 hrs): 09/25/21 03:56 Nasopharnyx Influenza Type A Antigen Screen - Final 09/25/21 03:56 Nasopharnyx Influenza Type B Antigen Screen - Final Assessment and Plan - Plan Assessment: Dyspnea, pedal edema secondary to acute on chronic systolic congestive heart failure CKD 4 Diabetes mellitus type [id number] with hyperglycemia Hypertension Hyperlipidemia Plan: Dyspnea, pedal edema secondary to acute on chronic systolic congestive heart failure: His Lasix to 40 mg IV twice daily, cardiology and nephrology to be con sulted most recent echocardiogram 09/05/2021 demonstrates ejection fraction between 40 and 45%. Patient instructed on need for fluid restriction, daily weights and close follow-up. Has not had cardiology evaluation or follow-up with nephrology outpatient at this point time. CKD 4: As above further adjustments to Lasix from nephrology/cardiology. Patient will need to follow-up with nephrology outpatient. Diabetes mellitus type [id number] with hyperglycemia: ACHS Accu- Chek, sliding scale insulin Hypertension: Home dose of carvedilol continued Hyperlipidemia: Continue home medication. DVT PPX: Heparin Code status: Full Discharge Plan: Home Plan to discharge in: 24 Hours - Advance Directives Does patient have a Living Will: No Does patient have a Durable POA for Healthcare: No - Code Status/Comfort Care Code Status Assessed: Yes (Full code) Critical Care: No Time Spent Managing Pts Care (In Minutes): 70
--- NOTE | 2021-09-25 05:21 | EDPHYS ---
Physician Documentation [facility] Name: Chava Pate Age: 46 yrs Sex: Male : 1975 Arrival Date: 09/25/2021 Time: 02:57 Bed 8 Private MD: ED Physician Tra Preston HPI: 09/25 03:36 This 46 yrs old Male presents to ER via Wheelchair with complaints of mh7 Shortness Of Breath, Leg Pain, Feet Swelling. 03:36 The patient has shortness of breath with light activity. Onset: The symptoms/episode mh7 began/occurred 5 day(s) ago. Duration: The symptoms are intermittent, with no pattern. The patient's shortness of breath is aggravated by exertion, light activity, is alleviated by rest. Associated signs and symptoms: Pertinent positives: chest pain, leg swelling, Pertinent negatives: non-productive cough, productive cough, diaphoresis, dizziness, fever, hemoptysis, loss of consciousness, nausea, numbness in extremities, visual changes, vomiting. Severity of symptoms: At their worst the symptoms were moderate yesterday, in the emergency department the symptoms are unchanged. Historical: - Allergies: 03:16 No Known Allergies; as6 - PMHx: 03:16 Diabetes - NIDDM; Hypertensive disorder; PERIPHERAL NEUROPATHY; as6 - PSHx: 03:16 None; as6 - Immunization history:: Adult Immunizations up to date, Client reports receiving the 2nd dose of the Covid vaccine, moderna. - Social history:: Smoking status: Patient denies any tobacco usage or history of. ROS: 03:36 Constitutional: Negative for fever, chills, and weight loss, Eyes: Negative for injury, mh7 pain, redness, and discharge, ENT: Negative for injury, pain, and discharge, Neck: Negative for injury, pain, and swelling, Abdomen/GI: Negative for abdominal pain, nausea, vomiting, diarrhea, and constipation, Back: Negative for injury and pain, : Negative for injury, bleeding, discharge, and swelling, Skin: Negative for injury, rash, and discoloration, Neuro: Negative for headache, weakness, numbness, tingling, and seizure, Psych: Negative for depression, anxiety, suicide ideation, homicidal ideation, and hallucinations, Allergy/Immunology: Negative for hives, rash, and allergies, Endocrine: Negative for neck swelling, polydipsia, polyuria, polyphagia, and marked weight changes, Hematologic/Lymphatic: Negative for swollen nodes, abnormal bleeding, and unusual bruising. Exam: 03:36 Head/Face: Normocephalic, atraumatic. Eyes: Pupils equal round and reactive to light, mh7 extra-ocular motions intact. Lids and lashes normal. Conjunctiva and sclera are non-icteric and not injected. Cornea within normal limits. Periorbital areas with no swelling, redness, or edema. Neck: Trachea midline, no thyromegaly or masses palpated, and no cervical lymphadenopathy. Supple, full range of motion without nuchal rigidity, or vertebral point tenderness. No Meningismus. Chest/axilla: Normal chest wall appearance and motion. Nontender with no deformity. No lesions are appreciated. Cardiovascular: Regular rate and rhythm with a normal S1 and S2. No gallops, murmurs, or rubs. Normal PMI, no JVD. No pulse deficits. Abdomen/GI: Soft, non-tender, with normal bowel sounds. No distension or tympany. No guarding or rebound. No evidence of tenderness throughout. Back: No spinal tenderness. No costovertebral tenderness. Full range of motion. Skin: Warm, dry with normal turgor. Normal color with no rashes, no lesions, and no evidence of cellulitis. Neuro: Awake and alert, GCS 15, oriented to person, place, time, and situation. Cranial nerves II-XII grossly intact. Motor strength 5/5 in all extremities. Sensory grossly intact. Cerebellar exam normal. Normal gait. Psych: Awake, alert, with orientation to person, place and time. Behavior, mood, and affect are within normal limits. 03:36 Constitutional: The patient appears in no acute distress, alert, awake, anxious. 03:36 Cardiovascular: Edema: 2+ edema to level of bilateral lower extremities. 03:36 Musculoskeletal/extremity: Extremities: noted in the right leg and left leg: swelling, pedal edema, ROM: intact in all extremities, Circulation is intact in all extremities. Sensation intact. Compartment Syndrome exam of affected extremity: is normal. no pain, no numbness, no tingling, no sensation deficit, no palor, no weak pulses, Joints: All joints appear normal with full range of motion. Weight bearing: able to fully bear weight, Tendon exam: specific tendon testing normal through active and passive range of motion Vital Signs: 03:11 BP 194 / 93; Pulse 93; Resp 21 S; Temp 98.9(TE); Pulse Ox 98% on R/A; Weight 104.33 kg as6 (R); Height 5 ft. 8 in. (172.72 cm) (R); Pain 7/10; 04:39 BP 177 / 87; Pulse 89; Resp 19 S; Pulse Ox 97% on R/A; as6 05:20 BP 184 / 90; Pulse 87; Resp 20 S; Pulse Ox 96% on R/A; as6 03:11 Body Mass Index 34.97 (104.33 kg, 172.72 cm) as6 MDM: 05:19 Differential diagnosis: Anemia Anxiety Reaction asthma, Bronchitis CHF exacerbation, mh7 Chronic Obstructive Pulmonary Disease Myocardial Infarction pneumonia, Pneumothorax Psychogenic pulmonary edema, reactive airway disease. Data reviewed: vital signs, nurses notes, old medical records, lab test result(s), cardiac enzymes, CBC, electrolytes, EKG, radiologic studies, plain films. Data interpreted: Pulse oximetry: on room air is 97 %. Interpretation: normal. Counseling: I had a detailed discussion with the patient and/or guardian regarding: the historical points, exam findings, and any diagnostic results supporting the discharge/admit diagnosis, the presence of at least one elevated blood pressure reading (>120/80) during this emergency department visit, lab results, radiology results, the need for further work-up and treatment in the hospital. Response to treatment: the patient's symptoms have mildly improved after treatment. 05:20 Patient medically screened. 09/25 03:19 Order name: Basic Metabolic Panel; Complete Time: 04:02 09/25 03:19 Order name: CBC with Diff; Complete Time: 03:56 09/25 03:19 Order name: LFT's; Complete Time: 04:02 09/25 03:19 Order name: Magnesium; Complete Time: 04:02 09/25 03:19 Order name: NT PRO-BNP; Complete Time: 04:02 09/25 03:19 Order name: PT-INR; Complete Time: 03:56 09/25 03:19 Order name: Troponin HS; Complete Time: 04:02 09/25 03:19 Order name: XRAY Chest (1 view) [facility] 09/25 03:19 Order name: EKG; Complete Time: 03:20 [facility] 09/25 03:19 Order name: Cardiac monitoring; Complete Time: 03:24 [facility] 09/25 03:19 Order name: EKG - Nurse/Tech; Complete Time: 03:25 [facility] 09/25 03:23 Order name: COVID-19 SARS RT PCR (Document "Date of Onset" if Symptomatic); Complete [facility] Time: 05:04 09/25 03:24 Order name: Influenza Screen (a \\T\\ B); Complete Time: 04:59 [facility] 09/25 03:19 Order name: IV Saline Lock; Complete Time: 03:25 [facility] 09/25 03:19 Order name: Labs collected and sent; Complete Time: 03:25 [facility] 09/25 03:19 Order name: O2 Per Protocol; Complete Time: 03:24 [facility] 09/25 03:19 Order name: O2 Sat Monitoring; Complete Time: 03:24 [facility] Administered Medications: 05:18 Drug: Lasix (furosemide) 40 mg Route: IVP; Site: left antecubital; as6 06:18 Follow up: Response: No adverse reaction as6 Disposition Summary: 09/25/21 05:20 Hospitalization Ordered Hospitalization Status: Inpatient Admission [facility] Provider: Terry Clemons [facility] Location: Telemetry/MedSur (Inpatient) [facility] Condition: Stable [facility] Problem: an acute exacerbation [facility] Symptoms: have improved [facility] Bed/Room Type: Standard [facility] Room Assignment: 407(09/25/21 05:22) Diagnosis - Acute on chronic combined systolic (congestive) and diastolic (congestive) heart [facility] failure Forms: - Medication Reconciliation Form [facility] - SBAR form [facility] Signatures: Dispatcher [employer] EDJessica Stearns RN RN mw Holmes, Maurice, MD MD [facility] Carlos Ni RN RN as6 Corrections: (The following items were deleted from the chart) 05:22 05:20 [facility] mw
--- NOTE | 2021-09-25 05:21 | ER ---
Nurse's Notes [facility] Name: Chava Pate Age: 46 yrs Sex: Male : 1975 Arrival Date: 09/25/2021 Time: 02:57 Bed 8 Private MD: Diagnosis: Acute on chronic combined systolic (congestive) and diastolic (congestive) heart failure Presentation: 09/25 03:11 Chief complaint: Patient states: "I'm in the beginning stages of kidney failure and as6 several days ago my legs started hurting, and now I'm starting to get shortness of breath when I walk". Coronavirus screen: At this time, the client does not indicate any symptoms associated with coronavirus-19. Ebola Screen: No symptoms or risks identified at this time. Initial Sepsis Screen: Does the patient meet any 2 criteria? No. Patient's initial sepsis screen is negative. Does the patient have a suspected source of infection? No. Patient's initial sepsis screen is negative. Risk Assessment: Do you want to hurt yourself or someone else? Patient reports no desire to harm self or others. Onset of symptoms was September 15, 2021. 03:11 Method Of Arrival: Wheelchair as6 03:11 Acuity: EDINSON 3 as6 Triage Assessment: 05:19 General: Appears in no apparent distress. Behavior is calm, cooperative. Respiratory: as6 Onset: The symptoms/episode began/occurred gradually, the patient has mild shortness of breath. Historical: - Allergies: 03:16 No Known Allergies; as6 - PMHx: 03:16 Diabetes - NIDDM; Hypertensive disorder; PERIPHERAL NEUROPATHY; as6 - PSHx: 03:16 None; as6 - Immunization history:: Adult Immunizations up to date, Client reports receiving the 2nd dose of the Covid vaccine, moderna. - Social history:: Smoking status: Patient denies any tobacco usage or history of. Screenin:18 Abuse screen: Denies threats or abuse. Denies injuries from another. Nutritional as6 screening: No deficits noted. Tuberculosis screening: No symptoms or risk factors identified. Fall Risk None identified. Assessment: 03:15 General: Appears in no apparent distress. Behavior is calm, cooperative. Pain: as6 Complains of pain in left leg and right leg. Neuro: Clayton Agitation-Sedation Scale (RASS): 0 - Alert and Calm Level of Consciousness is awake, alert, obeys commands, Oriented to person, place, time, situation. Cardiovascular: Patient's skin is warm and dry. Edema is 1+ to left leg and right leg Rhythm is regular. Respiratory: Reports shortness of breath Airway is patent Trachea midline Respiratory effort is even, unlabored, Respiratory pattern is regular, symmetrical, Breath sounds are diminished bilaterally. 05:27 General: attempted to call report. as6 05:37 General: attempted to call report. nurse is medicating another pt and will call back. as6 Vital Signs: 03:11 BP 194 / 93; Pulse 93; Resp 21 S; Temp 98.9(TE); Pulse Ox 98% on R/A; Weight 104.33 kg as6 (R); Height 5 ft. 8 in. (172.72 cm) (R); Pain 7/10; 04:39 BP 177 / 87; Pulse 89; Resp 19 S; Pulse Ox 97% on R/A; as6 05:20 BP 184 / 90; Pulse 87; Resp 20 S; Pulse Ox 96% on R/A; as6 03:11 Body Mass Index 34.97 (104.33 kg, 172.72 cm) as6 ED Course: 02:57 Patient arrived in ED. bp1 03:08 Tra Preston MD is Attending Physician. mh7 03:10 Carlos Ni, MARCELA is Primary Nurse. as6 03:16 Triage completed. as6 03:18 Arm band placed on. as6 03:18 Placed in gown. Bed in low position. Call light in reach. Side rails up X2. Client as6 placed on continuous cardiac and pulse oximetry monitoring. NIBP monitoring applied. 03:33 XRAY Chest (1 view) In Process Unspecified. EDMS 03:55 Basic Metabolic Panel Sent. tw5 03:55 Magnesium Sent. tw5 03:55 NT PRO-BNP Sent. tw5 03:55 Troponin HS Sent. tw5 05:18 IV discontinued, intact, bleeding controlled, No redness/swelling at site. Pressure as6 dressing applied. Inserted saline lock: 20 gauge in left antecubital area, using aseptic technique. 05:20 Terry Clemons MD is Hospitalizing Provider. [facility] 05:27 No provider procedures requiring assistance completed. Patient admitted, IV remains in as6 place. Administered Medications: 05:18 Drug: Lasix (furosemide) 40 mg Route: IVP; Site: left antecubital; as6 06:18 Follow up: Response: No adverse reaction as6 Medication: 05:20 VIS not applicable for this client. as6 Outcome: 05:20 Decision to Hospitalize by Provider. [facility] 05:28 Condition: stable as6 05:28 Instructed on the need for admit. 06:09 Admitted to Med/surg accompanied by tech, room 407, with chart, Report called to tw5 Report called to Javed MEDRANO 06:18 Patient left the ED. as6 Signatures: Dispatcher [employer] EDMS Brigid Lopez Maurice, MD MD 7 Marge Esposito [facility] Carlos Ni, MARCELA RN as6
[2021-09-25] MEDS ORDERED: ONDANSETRON 4 MG/2 ML VIAL IV PRN (06:08)
[2021-09-25] MEDS ORDERED: ACETAMINOPHEN 500 MG TAB PO PRN (06:08)
[2021-09-25] MEDS ORDERED: TRAMADOL HCL 50 MG TAB PO PRN (06:08)
[2021-09-25 06:28] VITALS: O2SAT 96
[2021-09-25 06:37] VITALS: BMI 34.1
[2021-09-25] MEDS: carvediloL 25 MG TAB PO SCH ×2 (07:02→17:21)
[2021-09-25] MEDS: INSULIN -REGULAR HUMAN 50 UNIT/0.5 ML ML SQ SCH ×4 (08:52→21:00)
[2021-09-25] MEDS: HEPARIN 5000 UNIT/ML 1 ML VIAL SQ SCH ×2 (08:53→21:00)
[2021-09-25] MEDS ORDERED: FUROSEMIDE 40 MG/4 ML VIAL IV SCH ×2 (09:00)
--- NOTE | 2021-09-25 09:50 | EKG ---
Test Date: 2021-09-25 Test Time: 03:18:07 Quarry Supervisor: MEASUREMENT RESULTS: Intervals: Rate: 92 GA: 114 QRSD: 86 QT: 362 QTc: 447 [place]: P: 55 GA: 114 QRS: -18 T: 68 INTERPRETIVE STATEMENTS: Normal sinus rhythm Normal ECG Compared to ECG 09/05/2021 00:48:46 T-wave abnormality no longer present Electronically Signed On 09-25-21 09:49:37 CDT by Silver Bell
--- NOTE | 2021-09-25 12:36 | ECHO ---
HEIGHT: 5 ft 8 in WEIGHT: 224 lb 4.8 oz DATE OF STUDY: 09/25/[address]: Silver Bell MD 2-DIMENSIONAL: YES M.MODE: YES DOPPLER: YES COLOR FLOW: YES TDS: PORTABLE: YES DEFINITY: BUBBLE STUDY: DIAGNOSIS: CHEST PAIN CARDIAC HISTORY: CATHERIZATION: NO SURGERY: NO PROSTHETIC VALVE: NO PACEMAKER: NO MEASUREMENTS (cm) DIASTOLIC (NORMALS) SYSTOLIC (NORMALS) IVSd 1.1 (0.6-1.2) LA Diam 2.9 (1.9-4.0) LVEF 66% LVIDd 5.0 (3.5-5.7) LVIDs 3.2 (2.0-3.5) %FS 37% LVPWd 1.3 (0.6-1.2) Ao Diam 2.6 (2.0-3.7) 2 DIMENSIONAL ASSESSMENT: RIGHT ATRIUM: NORMAL LEFT ATRIUM: NORMAL RIGHT VENTRICLE: NORMAL LEFT VENTRICLE: NORMAL TRICUSPID VALVE: NORMAL MITRAL VALVE: NORMAL PULMONIC VALVE: NORMAL AORTIC VALVE: NORMAL PERICARDIAL EFFUSION: NONE AORTIC ROOT: NORMAL LEFT VENTRICULAR WALL MOTION: NORMAL DOPPLER/COLOR FLOW: NORMAL COMMENTS: NORMAL 2-DIMENSIONAL ECHOCARDIOGRAM WITH DOPPLER. NO WALL MOTION ABNORMALITY. NO EFFUSION. TECHNOLOGIST: YEN CROWE
[2021-09-25 13:54] LABS: Potassium 4.2 mmol/L (3.5-5.1)
--- NOTE | 2021-09-25 14:39 | RAD REPORT ---
EXAM DESCRIPTION: RAD - Chest Single View - 09/25/2021 3:31 am CLINICAL HISTORY: The patient is 46 years old and is Male; SOB TECHNIQUE: Single view of the chest. COMPARISON: September 05, 2021. FINDINGS: Lungs: Bilateral linear atelectasis. No pulmonary vascular congestion. No consolidation. Pleural space: Unremarkable. No pneumothorax. Heart: Unremarkable. No cardiomegaly. Mediastinum: Unremarkable. Bones/joints: Mild degenerative changes in the AC joints. No acute rib fracture. Upper abdomen: No free air in the visualized upper abdomen. IMPRESSION: Bilateral linear atelectasis. Electronically signed by: Saundra Taylor MD 09/25/2021 4:45 AM CDT Due to temporary technical issues with the PACS/Fluency reporting system, reports are being signed by the in house radiologists without review as a courtesy to insure prompt reporting. The interpreting radiologist is fully responsible for the content of the report.
[2021-09-25 14:41] LABS: UR PROTEIN 286.3 mg/dL (<11.9); Urine Protein/Creatinine Ratio 8.42 ratio (<0.15)
--- NOTE | 2021-09-25 15:04 | RAD REPORT ---
EXAM DESCRIPTION: US - Extrem Venous W Compress Clement - 09/25/2021 2:53 pm CLINICAL HISTORY: calf pain Bilateral leg edema and swelling. COMPARISON: Extrem Venous W Compress Clement dated 09/05/2021 TECHNIQUE: Real-time sonographic interrogation of the left and right lower extremity deep venous sys tems was performed. FINDINGS: Normal compressibility, flow augmentation, phasic flow and spontaneous flow is identified in both the left and right lower extremity deep venous systems. IMPRESSION: No sonographic evidence of left or right lower extremity deep venous thrombosis.
[2021-09-25 15:09] LABS: Urine Appearance Clear (Clear); Urine Bilirubin Negative (Negative); Urine Blood 1+ (Negative); Urine Color Yellow (Yellow); Urine Glucose 1+ (Negative); Urine Protein 3+ (Negative); Urine Urobilinogen 0.2 mg/dL (0.2-1.0); Urine pH 5.5 (5.0-7.0)
[2021-09-25 15:25] LABS: Urine Microscopic Reflex ORDER UMIC
[2021-09-25 15:34] LABS: Urine Bacteria <20 /HPF (NONE SEEN); Urine RBC <5 /HPF (NONE SEEN)
[2021-09-25] MEDS: FUROSEMIDE 40 MG/4 ML VIAL IV SCH (16:38)
--- NOTE | 2021-09-25 17:44 | CON ---
Date of Consultation: 09/25/2021 Requesting Provider: Dr. Clemons. Reason For Consultation: Renal insufficiency. History Of Present Illness: Mr. Pate is 46-year-old male with a history of hypertension, diabete s, congestive heart failure, who presented to the hospital with 2 days of dyspnea. The patient state s that he was having dyspnea on exertion while walking into work, which progressed and he presented h ere to the ER. The patient did have evidence of volume overload, has been initiated on diuretic noé gement. Consultation was requested for renal insufficiency. The patient has had multiple hospitaliz ations in the past. Most recently in August of this year. At that time was seen by Dr. Roajs, for ne phrology care and was discharged with improvement in volume status at that time. Upon discharge, cre atinine was 3.90. He had not followed up in the outpatient setting with Nephrology at that time. In terms of his prior workup, the patient does have nephrotic range proteinuria with 9 g of urinary p rotein quantification. This is likely in the setting of diabetic nephropathy. The patient has a pro tein electrophoresis, which is negative for any monoclonal spike. Renal ultrasound was also noted wi thout any obvious morphologic abnormalities. He denies use of any NSAIDs recently. He denies any recent iodinated contrast. Patient admits to not checking blood pressure at home. He did present with hypertensive urgency with systolic blood pressures in the 190s. Currently seen at the bedside. States that his dyspnea has showed some modest improvement. Edema salinas s also improved. Family History: Noncontributory. Physical Examination: Vital Signs: Blood pressure is 152/75, pulse 84, afebrile. General: No acute distress. Heart: Regular rate and rhythm. No murmurs, rubs, gallops. Lungs: Decreased breath sounds at the bases. Abdomen: Soft, nontender, nondistended. Extremities: With some vascular insufficiency changes noted of the extremities including darkening o f the skin and some old heel abrasions. He does have 1+ edema of the lower extremities. Laboratory Data: CBC, hemoglobin 11.1, hematocrit 32.3. Serum chemistry, BUN and creatinine 59/4.19 , CO2 21, potassium 4.7, glucose 309, magnesium 1.7, calcium 8.3. BNP 1259. Albumin is 2.5. Current Medications: Reviewed. Patient currently on Lasix 40 mg IV b.i.d., carvedilol 25 b.i.d. Th e patient's discharge medications from his hospitalization in August were reviewed. He was on Lasix 40 mg p.o. daily, which he says he has adhered to. Also on carvedilol 25 b.i.d., glipizide 2.5 daily. Impression: 1.Renal insufficiency, acute on chronic kidney disease, stage 3B/4 in the setting of cardiorenal syn drome. 2.Hypertensive urgency. 3.Diabetic nephropathy. 4.Uncontrolled diabetes. Plan: Patient at this time is responding to diuresis with improvement in urine output. Recommend st rict inputs and outputs and daily weights. Avoid all NSAIDs or iodinated contrast. We will continue patient on current diuretic regimen. I have explained to patient that patient may have worsening of renal function and may necessitate renal replacement therapy, even on this admission, however, not u rgent at this time. I have added urinary assay as well as hepatitis profile in case the patient needs dialysis. For his nephrotic syndrome, he had a prior serum electrophoresis, which was negative for any spike. However, kappa/lambda ratio has been added. However, the most likely etiology is diabetic nephropathy with p rogression in the setting of cardiorenal syndrome. Please ensure patient is on a renal diet and I will continue to follow. Thank you kindly for the consultation. CECILIA Voice ID: [id number] Report ID: [id number]
[2021-09-25] MEDS: GABAPENTIN 100 MG CAP PO SCH (21:46)
[2021-09-25] MEDS ORDERED: HYDRALAZINE HCL 20 MG/ML VIAL IV PRN (22:40)
[2021-09-26 03:51] LABS: Absolute Lymphocytes (CBC) 1.9 K/uL (0.7-4.9); Hematocrit 32.7 % (39.6-49.0); Lymphocytes % 21.3 % (15.3-44.8); MPV 7.7 fL (7.6-11.3); RBC Red Blood Cell Count 4.07 M/uL (4.33-5.43)
[2021-09-26 04:07] LABS: Albumin 2.3 g/dL (3.4-5.0); Bilirubin Total 0.2 mg/dL (0.2-1.0); Protein, Total 6.4 g/dL (6.4-8.2)
[2021-09-26] MEDS: carvediloL 25 MG TAB PO SCH (06:41)
[2021-09-26] MEDS: INSULIN -REGULAR HUMAN 50 UNIT/0.5 ML ML SQ SCH ×2 (07:30→11:56)
[2021-09-26] MEDS: HEPARIN 5000 UNIT/ML 1 ML VIAL SQ SCH (08:57)
[2021-09-26] MEDS: FUROSEMIDE 40 MG/4 ML VIAL IV SCH (08:58)
[2021-09-26] MEDS: GABAPENTIN 100 MG CAP PO SCH (08:58)
[2021-09-26 12:14] VITALS: BP 146/71; TEMP 97.8
--- NOTE | 2021-09-26 12:58 | P.DS ---
Admission Date: 09/25/21 Discharge Date: 09/26/21 Disposition: ROUTINE DISCHARGE Discharge Condition: GOOD Reason for Admission: CHF exacerbation Brief History of Present Illness: 46-year-old male history of systolic congestive heart failure, CKD 4, diabetes mellitus type 2not insulin-dependent, hypertension presents emergency department for dyspnea on exertion and pedal edema. He was evaluated in the emergency department his labs were significant for hyperglycemia, CKD 4, elevated BNP he is noted to have increased swelling of lower extremities as well as increasing dyspnea on exertion over the course of last few days he reports he has been compliant with his Lasix 40 mg p.o. daily at home. Given patient's worsening symptoms with his compliance with his diuretic as well as the CKD 4 ED provider wishes to admit under observation for further evaluation with cardiology/nephrology. Hospital Course: Admitted he was admitted for management of CHF exacerbation deemed secondary to perhaps cardiorenal syndrome due to advanced kidney function issues related problems. He diuresed well and he was also evaluated by nephrology for his advanced renal failure retention. Adjustment to diuretic therapy and antihypertensive medications were made by nephrology. He was evaluated by cardiology and echocardiogram done revealed normal left ejection fraction without wall motion abnormalities. He was deemed stable for discharge to follow-up with cardiology and nephrology as scheduled for posthospital discharge care. while on admission he had leg pain which is deemed secondary to diabetic neuropathy however there was concern for thromboembolic phenomena. He had imaging studies done that revealed no acute issue and he also had gabapentin added to his regimen. His leg pain improved significantly. He will continue with oral gabapentin dose for diabetic neuropathy on outpatient. Vital Signs/Physical Exam: Temp Pulse Resp BP Pulse Ox 97.8 F 71 18 146/71 H 98 09/26/21 12:00 09/26/21 12:00 09/26/21 12:00 09/26/21 12:00 09/26/21 12:00 General: Alert, Oriented x3 HEENT: Atraumatic, Normocephalic Neck: Supple Respiratory: Normal air movement Cardiovascular: Regular rate/rhythm, Normal S1 S2 Gastrointestinal: Soft and benign Musculoskeletal: No swelling Integumentary: No breakdown Neurological: Normal speech Laboratory Data at Discharge: WBC 9.0 K/uL (4.3-10.9) 09/26/21 03:03 Hgb 10.9 g/dL (13.6-17.9) L 09/26/21 03:03 Hct 32.7 % (39.6-49.0) L 09/26/21 03:03 Plt Count 292 K/uL (152-406) 09/26/21 03:03 PT 11.2 SECONDS (9.5-12.5) 09/25/21 03:27 INR 1.02 09/25/21 03:27 Sodium 138 mmol/L (136-145) 09/26/21 03:03 Potassium 4.0 mmol/L (3.5-5.1) 09/26/21 03:03 BUN 57 mg/dL (7-18) H 09/26/21 03:03 Creatinine 4.29 mg/dL (0.55-1.3) H 09/26/21 03:03 Glucose 210 mg/dL (74-106) H 09/26/21 03:03 Magnesium 1.7 mg/dL (1.8-2.4) L 09/25/21 03:27 Total Bilirubin 0.2 mg/dL (0.2-1.0) 09/26/21 03:03 AST 6 U/L (15-37) L 09/26/21 03:03 ALT 29 U/L (12-78) 09/26/21 03:03 Alkaline Phosphatase 116 U/L (45-117) 09/26/21 03:03 Home Medications: Calcitrol [Rocaltrol*] 0.5 mcg PO DAILY #60 cap 09/06/21 Cholecalciferol (Vitamin D3) [Vitamin D 5,000 IU Cap*] 5,000 unit PO DAILY #30 cap 09/06/21 Docusate [Colace Cap*] 100 mg PO BID #60 cap 09/06/21 Glipizide [Glipizide Xl] 2.5 mg PO DAILY #30 tab.er.24 09/06/21 carvediloL [Coreg*] 25 mg PO BID #60 tab 09/06/21 Furosemide [Lasix*] 60 mg PO DAILY 30 Days #30 tab 09/26/21 Gabapentin [Neurontin*] 100 mg PO BID 30 Days #90 cap 09/26/21 New Medications: Furosemide [Lasix*] 60 mg PO DAILY 30 Days #30 tab Gabapentin [Neurontin*] 100 mg PO BID 30 Days #90 cap Diet: Renal Activity: Ad minh Followup: Aglieco,Zeeshan, DO [ACTIVE - CAN ADMIT] - NONE,NONE [Primary Care Provider] -
--- NOTE | 2021-09-26 13:01 | PN ---
Date of Progress Note: 09/26/2021 Subjective: The patient is seen at bedside today. No overnight events reported. The patient's dysp judy has improved. He also states that his pain which was attributed to neuropathy has shown improvem ent with initiation of gabapentin. Blood pressure trend is also improving. The patient had output o f 4 L of urine with a negative balance of approximately 2.8 L. He denies any fevers, chills, chest p ain, nausea, vomiting, or diarrhea. The patient's dyspnea has shown marked improvement. Objective: Vital Signs: Blood pressure 140/71, pulse 77, afebrile. General: No acute distress. Heart: Regular rate and rhythm. No murmurs, rubs, gallops. Lungs: Decreased breath sounds at the left base. Abdomen: Soft, nontender, nondistended. Extremities: With trace edema. Diagnostic Imaging: Chest x-ray from admission yesterday had not showed any acute disease. Venous D opplers have not shown any evidence of DVT. Current Medications: Reviewed. Of note, the patient on Lasix 40 mg IV b.i.d., also carvedilol 25 mg p.o. b.i.d. Impression: 1.Chronic kidney disease, stage 4, which is currently stable. 2.Volume overload secondary to nephrotic syndrome. 3.Possible diastolic congestive heart failure. 4.Uncontrolled diabetes. Plan: The patient's renal function is stable at this time. The patient does have chronic kidney dis ease, stage 4, but is now having significant electrolyte imbalance. Volume status is amenable to diu retics. The patient is not having any uremic symptoms. The patient does have followup with Dr. Milagro carroll on Friday. The patient has been advised to avoid all NSAIDs. The patient also advised on low-potassium diet. Case discussed with primary attending physician, Dr. Clemons regarding the patient's discharge educt ion, which would include chronic kidney disease education handouts, low-potassium diet handouts. Lasix has been changed from 40 mg IV b.i.d. to 60 mg p.o. daily. The patient should adhere to medica tion regimen as low-sodium diet. The patient does need Cardiology followup in regard to echocardiogram and further medical management from a Cardiology perspective. CECILIA Voice ID: [id number] Report ID: [id number]
[2021-09-27] MEDS ORDERED: FUROSEMIDE 40 MG TABLET PO SCH (09:00)
--- NOTE | 2021-09-27 14:25 | CON ---
Date of Consultation: 09/25/2021 Reason For Consultation: Congestive heart failure. History Of Present Illness: Mr. Pate is a 46-year-old Latin-[place] male with history of renal insufficiency stage IV, but not on dialysis yet. He has a history of diabetes, hypertension, came in with hypertensive crisis, congestive heart failure, creatinine of 4.19, glucose was 309. BNP was 12 59. Echocardiogram is pending. He denied any chest pain, nausea, vomiting, diaphoresis. Has had PN D, orthopnea, and pedal edema. Denied any syncope or palpitation. Denied any fever or chills. Past Medical History: As stated above. Allergies: NONE. Review of Systems: Negative. Social History: Negative. Family History: Negative. Medications: At home include Coreg, glipizide, and Lasix. Physical Examination: Vital Signs: Blood pressure was 181/94, sinus rhythm. No acute distress. Afebrile. HEENT: Negative. Neck: Supple with no bruit. Chest: Clear to auscultation and percussion. Cardiac: Revealed a regular rhythm and rate with S4 gallops. Abdomen: Benign. Extremities: Revealed 1+ edema. Laboratory Data: His chest x-ray was negative. Creatinine is 4.19, glucose is 309. BNP is elevated . Impression And Plan: This is a patient with diabetes, hypertension poorly controlled, diabetes that is poorly controlled, elevated BNP, symptoms consistent with congestive heart failure, probably diast olic or systolic. Nevertheless, echocardiogram is pending. We need to control his blood pressure be tter. We cannot put him on CHEPE inhibitor or Entresto because of his renal failure, which we will nee d to watch his. He may end up on dialysis. We will see what his echocardiogram shows. He will even tually need an outpatient MPI. Consider having adding hydralazine and/or Norvasc for his blood press ure. Nephrology has been consulted. GREG/MORENO Voice ID: [id number] Report ID: [id number]
[2021-09-28 04:00] LABS: HBsAG Nonreactive (Nonreactive)
[2021-09-28 07:31] LABS: KAPPA LIGHT CHAIN, FREE SERUM 83.1 mg/L (3.3-19.4)
== END 2021-09-26 13:42 | disposition home or self-care (01) ==
LOC: ER 02:55 → ERHOLD 05:19 → 4TH 05:23
PROVIDERS: ADMIT Internal Medicine Nephrology; ATTEND Internal Medicine Nephrology
DX: I13.0 Hypertensive heart and chronic kidney disease with heart failure and stage 1 through stage 4 chronic kidney disease, or unspecified chronic kidney disease (principal); I50.23 Acute on chronic systolic (congestive) heart failure; N18.4 Chronic kidney disease, stage 4 (severe); E11.22 Type 2 diabetes mellitus with diabetic chronic kidney disease; E11.65 Type 2 diabetes mellitus with hyperglycemia; E11.40 Type 2 diabetes mellitus with diabetic neuropathy, unspecified; E11.21 Type 2 diabetes mellitus with diabetic nephropathy; I16.0 Hypertensive urgency; E78.5 Hyperlipidemia, unspecified; E78.00 Pure hypercholesterolemia, unspecified; Z79.899 Other long term (current) drug therapy; Z20.822 Contact with and (suspected) exposure to COVID-19; Z83.3 Family history of diabetes mellitus
CPT/HCPCS: 93005; 93306; 85025 ×2; 80048 ×2; 36415 ×2; 83735; 85610; 84300; 82947 ×6; 80076; 82570; 84484; 80053; 86704; 83880; 83520 ×2; 87340; 86706; 86334; 84156; 86803; 87804 ×2; 71045; 93970; 96374; 99285; U0003; J1815 ×3; J1940 ×3; J1644 ×3; G0378 ×3; 81003; 81015

== ENCOUNTER 2021-12-14 18:39 | Inpatient (IN) | payer BC ==
--- OUTSIDE RECORDS SUMMARY | 2021-12-14 18:44 | XMS REPORT | Continuity of Care Document ---
:1975 Author Organization [facility] t Address [address] [place] [address] Care Team Providers Name Role Phone RITA DEY Primary Care Physician Unavailable Deborah MEDRANO, Desi Nicolas Attending Clinician Unavailable TURNER GARCIA Attending Clinician Unavailable Turner Garcia MD Attending Clinician TURNER GARCIA Admitting Clinician Unavailable Payers Payer Name Policy Type Policy Number Effective Date Expiration Date S ource Problems Condition Condition Condition Status Onset Resolution Last Treating Co mments Source Name Details Category Date Date Treatment Clinician Date No known No known Disease Unive rs active active ity of problems problems [facility] Allergies, Adverse Reactions, Alerts Allergy Allergy Status Severity Reaction(s) Onset Inactive Treating Comm ents Source Name Type Date Date Clinician NO KNOWN Drug Active Univers ALLERGIE Class ity of [facility] Social History Social Habit Start Date Stop Date Quantity Comments Source Exposure to Not sure [facility] SARS-CoV-2 (event) Medica l Branch Sex Assigned At [birth year] [facility] Medical 00:00:00 00:00:00 Center Smoking Status Start Date Stop Date Source Unknown if ever smoked [facility] Medications Ordered Filled Start Stop Current Ordering Indication Dosage Frequency Signature Comments Components Source Medication Medication Date Date Medication? Clinician (SIG) Name Name albuterol Yes [id number] 2{puff} Inhale 2 Univers 90 1-22 Puffs ity of mcg/actuati 00:00: every 4 Kj as on inhaler 00 (four) Medical hours as Branch needed for Wheezing or Shortness of Breath. proMETHazin Yes [id number] 25mg Take 1 Univers e 25 mg 1-22 tablet by ity of tablet 00:00: mouth [place] 00 every 6 Medical (six) Branch hours as needed for Nausea and Vomiting (N/V). albuterol Yes [id number] 2{puff} Inhale 2 Univers 90 1-22 Puffs ity of mcg/actuati 00:00: every 4 Kj as on inhaler 00 (four) Medical hours as Branch needed for Wheezing or Shortness of Breath. proMETHazin Yes [id number] 25mg Take 1 Univers e 25 mg 1-22 tablet by ity of tablet 00:00: mouth [place] 00 every 6 Medical (six) Branch hours as needed for Nausea and Vomiting (N/V). amoxicillin 2021- No [id number] 1{tbl} Take 1 Univers -clavulanat 05-12-30 tablet by it y of e 875-125 00:00: 05:59 mouth [place] mg per 00 :00 every 12 Medical tablet (twelve) Branch hours for 7 days. codeine-gua 2021- No 10mL Take 10 mL Univers ifenesin 05-12-30 by mouth ity of 10-100 mg/5 00:00: 05:59 every 6 [place] mL oral 00 :00 (six) Medical solution hours as Branch needed for Cough for up to 7 days. Indication s: COUGH amoxicillin 2021- No [id number] 1{tbl} Take 1 Univers -clavulanat 05-1230 tablet by it y of e 875-125 [...] 14:46:00 134 mm[Hg] Univer sity of pressure [place] [facility] Diastolic blood 2021-05-12 14:46:00 66 mm[Hg] [facility] rsity of pressure [facility] Heart rate 2021-05-12 14:46:00 118 /min [facility] Body temperature 2021-05-12 14:46:00 37.33 [facility] Respiratory rate 2021-05-12 14:46:00 22 /min [facility] Body weight 2021-05-12 14:46:00 102.059 kg [facility] Oxygen saturation in 2021-05-12 14:46:00 100 /min [facility] Arterial blood by [facility] Pulse oximetry Branch Procedures Procedure Date / Time Performed Performing Clinician Sour e HEPATITIS B SURFACE 2021-09-06 05:47:00 [facility] ANTIGEN Center HEPATITIS B SURFACE 2021-09-06 05:47:00 [facility] ANTIBODY Center HEPATITIS B CORE 2021-09-06 05:47:00 [facility] ANTIBODY, IGM Center XR CHEST 2 VW 2021-05-12 16:27:08 Turner Garcia [facility] RAPID INFLUENZA A/B 2021-05-12 15:13:00 Turner Garcia [facility] NOTICE OF PRIVACY 2021-05-12 14:43:20 Doctor Unassigned, No [facility] PRACTICES Name [facility] CONSENT/REFUSAL FOR 2021-05-12 14:43:06 Doctor Unassigned, No [facility] DIAGNOSIS AND Name [facility] TREATMENT Plan of Care Planned Activity Planned Date Details Comments Source Future Scheduled 2021-12-20 INFLUENZA VACCINE (#1) [facility] 00:00:00 [code = INFLUENZA Medical Ce nter VACCINE (#1)] Future Scheduled 2021-04-[address] [facility] Test 00:00:00 (12+) [code = Medical Center DEPRESSION SCREENING (12+)] Future Scheduled 2011 Lipid panel (procedure) [facility] Test 00:00:00 [code = 90531848] Medical Ce nter Future Scheduled 1995 DTAP/TDAP/TD VACCINES [facility] 00:00:00 (1 - Tdap) [code = Medical C enter DTAP/TDAP/TD VACCINES (1 - Tdap)] Future Scheduled 1994 HEPATITIS C SCREENING [facility] 00:00:00 [code = HEPATITIS C Medical Center SCREENING] Future Scheduled 1981 COVID-19 VACCINE (#1) [facility] 00:00:00 [code = COVID-[address] VACCINE (#1)] Future Scheduled 1976 CT Colonography (combo) [facility] Test 00:00:00 [code = CT Colonography [facility] (combo)] Future Scheduled 1976 Screening for malignant [facility] Test 00:00:00 neoplasm of colon Medical Ce nter (procedure) [code = 460336809] Future Scheduled 1976 Screening for malignant [facility] Test 00:00:00 neoplasm of colon Medical Ce nter (procedure) [code = 853210190] Future Scheduled 1976 Screening for malignant [facility] Test 00:00:00 neoplasm of colon Medical Ce nter (procedure) [code = 372382022] Future Scheduled 1976 Screening for malignant [facility] Test 00:00:00 neoplasm of colon Medical Ce nter (procedure) [code = 504867905] Future Scheduled 1975 Sigmoidoscopy [code = [facility] 00:00:00 Sigmoidoscopy] Medical [place] Encounters Start End Encounter Admission Attending Care Care Encounter Source Date/Time Date/Time Type Type Clinicians Facility Department ID 2021-09-06 2021-09-06 Lab [facility] [id number] 00:00:00 00:00:00 Requisitio Sky tariq n [facility] 2021-05-13 2021-05-13 Letter SALBADOR Cabrera [id number] Univers 00:00:00 00:00:00 (Out) Desi CONRAD [id number] rock [facility] [id number] Kj as [id number] [address] 2021-05-12 2021-05-12 Emergency Roma GARCIA MAGEMMA ERT [id number] Univers 08:47:00 11:17:00 TURNER rodriguez [facility] 2021-05-12 2021-05-12 Emergency [place], [facility] [id number] Univers 08:47:00 11:17:00 Turner MARIE [id number] [facility] [id number] [facility] [id number] [facility] 084 Branch Results Test Description Test Time Test Comments Results Result Comments Source Hepatitis B surface antibody 2021-09-06 22:01:34 Test Item Value Reference Range Interpretation Comme nts Hep B S Ab (test code = <8.0 See_Comment [Au tomated message] The 89213-0) system which ge nerated this result transmit brad reference range: <8.0 mIU /mL. The reference range was not used to interpret th is result as normal/abnormal . TALIB (test code = TALIB) Health Careers Instructor ID - DB Lab Interpretation (test Normal code = 82788-8) [facility] [id number] 22:01:34 Test Item Value Reference Range Interpretation Comments HEPATITIS B SURFACE ANTIBODY < mIU/mL <8.0 (BEAKER) (test code = 647) Health Careers Instructor ID - DBHepatitis B core antibody, [id number] 21:52:25 Test Item Value Reference Range Interpretation Comments Hep B C IgM (test code = Nonreactive Nonreactive 40608-0) TALIB (test code = TALIB) Health Careers Instructor ID - DB Lab Interpretation (test Normal code = 45767-9) [facility]TIBODY, [id number] 21:52:25 Test Item Value Reference Range Interpretation Comments HEPATITIS B CORE IGM ANTIBODY Nonreactive Nonreactive (BEAKER) (test code = 645) Health Careers Instructor ID - DBHepatitis B surface [id number] 21:52:19 Test Item Value Reference Range Interpretation Comments Hepatitis B surface Nonreactive Nonreactive antigen (test code = 5195-3) TALIB (test code = TALIB) Specimen is considered negative for HBsAg. Lab Interpretation (test Normal code = 72272-2) [facility] [id number] 21:52:19 Test Item Value Reference Range Interpretation Comments HEPATITIS B SURFACE ANTIGEN (2) Nonreactive Nonreactive (BEAKER) (test code = 2585) Specimen is considered negative for HBsAg.
[2021-12-14 19:34] LABS: Absolute Lymphocytes (CBC) 2.4 K/uL (0.7-4.9); Lymphocytes % 24.7 % (15.3-44.8); MCV 80.7 fL (80-100); MPV 7.6 fL (7.6-11.3); RBC Red Blood Cell Count 3.97 M/uL (4.33-5.43)
[2021-12-14 20:00] LABS: Albumin 2.2 g/dL (3.4-5.0); Bilirubin Total 0.1 mg/dL (0.2-1.0); Potassium 4.4 mmol/L (3.5-5.1); Protein, Total 6.1 g/dL (6.4-8.2)
--- NOTE | 2021-12-14 20:12 | RAD REPORT ---
EXAM DESCRIPTION: RAD - Chest Single View - 12/14/2021 7:34 pm CLINICAL HISTORY: SWELLING, hypertension, shortness of breath COMPARISON: Portable 09/25/2021 TECHNIQUE: AP portable chest image was obtained 12/14/2021 7:34 pm . FINDINGS: Lung volumes are low accentuating interstitial pattern. Significant change from comparison is not seen. Heart and vasculature are similar to comparison. No measurable pleural effusion and no pneumothorax. No acute bony abnormality seen. No acute aortic findings suspected. IMPRESSION: No acute cardiopulmonary process. No significant change from comparison study.
--- NOTE | 2021-12-14 20:15 | ER ---
Nurse's Notes [facility] Name: Chava Pate Age: 46 yrs Sex: Male : 1975 Arrival Date: 12/14/2021 Time: 18:43 Bed 6 Private MD: Diagnosis: End stage renal disease;Hyperglycemia, unspecified Presentation: 12/14 18:54 Chief complaint: Patient states: he has been feeling short of breath with swelling in ap3 his feet and lower legs and feels like he is retaining fluids. Coronavirus screen: At this time, the client does not indicate any symptoms associated with coronavirus-19. Ebola Screen: No symptoms or risks identified at this time. Initial Sepsis Screen: Does the patient meet any 2 criteria? No. Patient's initial sepsis screen is negative. Does the patient have a suspected source of infection? No. Patient's initial sepsis screen is negative. Risk Assessment: Do you want to hurt yourself or someone else? Patient reports no desire to harm self or others. Onset of symptoms was December 14, 2021. 18:54 Method Of Arrival: Ambulatory ap3 18:54 Acuity: EDINSON 3 ap3 Triage Assessment: 18:56 General: Appears in no apparent distress. Behavior is calm, cooperative. Pain: Denies ap3 pain. Neuro: Level of Consciousness is awake, alert, obeys commands. Cardiovascular: Patient's skin is warm and dry. Respiratory: Reports shortness of breath Airway is patent Respiratory effort is even, unlabored, Onset: The symptoms/episode began/occurred gradually, the patient has mild shortness of breath. Historical: - Allergies: 18:56 No Known Allergies; ap3 - Home Meds: 18:56 gabapentin oral [Active]; ap3 - PMHx: 18:56 Diabetes - NIDDM; Hypertensive disorder; PERIPHERAL NEUROPATHY; ap3 - Immunization history:: Client reports receiving the 2nd dose of the Covid vaccine. - Social history:: Smoking status: Patient denies any tobacco usage or history of. Screenin:57 Abuse screen: Denies threats or abuse. Nutritional screening: No deficits noted. ap3 Tuberculosis screening: No symptoms or risk factors identified. 19:11 Fall Risk IV access (20 points). tw5 Assessment: 19:10 General: Reports "I am a renal patient and diabetic. I don't know how long by feet have tw5 francisco like this but they are really swollen. I know I am retaining fluid.". 19:11 Cardiovascular: Rhythm is Chest pain is denied. Cardiovascular: Heart tones S1 S2 tw5 present Edema is 1+ to left ankle, left foot, left toes, right ankle, right foot and right toes. Respiratory: Reports shortness of breath at rest Airway is patent Trachea midline Respiratory effort is even, unlabored, Breath sounds are clear bilaterally. Vital Signs: 18:54 Pulse 97; Resp 18; Temp 97.7; Pulse Ox 96% ; Weight 104.33 kg; Height 5 ft. 8 in. ap3 (172.72 cm); 18:57 BP 166 / 92; ap3 19:18 Pulse 88; Resp 18; Pulse Ox 98% on R/A; Pain 0/10; tw5 19:20 BP 187 / 106; tw5 21:38 BP 147 / 92; Pulse 92; Resp 18; Pulse Ox 98% ; zm 18:54 Body Mass Index 34.97 (104.33 kg, 172.72 cm) ap3 ED Course: 18:43 Patient arrived in ED. ja2 18:48 Corky Simeon is PHCP. jl9 18:48 Jeremie Hurtado MD is Attending Physician. jl9 18:56 Triage completed. ap3 18:57 Arm band placed on right wrist. ap3 19:02 Marge Esposito is Primary Nurse. tw5 19:11 Patient has correct armband on for positive identification. Placed in gown. Bed in low tw5 position. Call light in reach. Side rails up X 1. Client placed on continuous cardiac and pulse oximetry monitoring. NIBP monitoring applied. Door closed. Noise minimized. Moved to private room. Warm blanket given. Verbal reassurance given. 19:11 Initial lab(s) drawn, by me, sent to lab. Inserted saline lock: 18 gauge in right tw5 forearm, using aseptic technique. Blood collected. started by Sebastian MEDRANO. 19:17 No apparent distress. Awaiting lab results. tw5 19:18 No provider procedures requiring assistance completed. tw5 19:18 CBC with Diff Sent. tw5 19:18 CMP Sent. tw5 19:18 BNP Sent. tw5 19:35 XRAY Chest (1 view) In Process Unspecified. EDMS 20:13 Marco Fonseca MD is Hospitalizing Provider. jl9 20:15 SARS RAPID Sent. tw5 22:08 Patient admitted, IV remains in place. tw5 Administered Medications: 20:12 Drug: Insulin Regular Human 10 units {Co-Signature: alicia (Ronak Lemos RN).} Route: IVP; tw5 Site: right forearm; Medication: 19:20 VIS not applicable for this client. tw5 Outcome: 20:14 Decision to Hospitalize by Provider. jl9 21:41 Admitted to Med/surg room 427, Report called to Attempted to call report to June. tw5 22:05 Admitted to Med/surg Report called to Gave report to Toya who is getting report for tw5 Shakira 22:08 Condition: stable tw5 22:08 Instructed on the need for admit. 22:10 Patient left the ED. tw5 Signatures: Dispatcher [employer] EDMS Radha Velásquez, RN RN [email or web address] April John Tiffany tw5 Gracie Dias John jl9 Ronak Lemos RN jb4
--- NOTE | 2021-12-14 20:15 | EDPHYS ---
Physician Documentation [facility] Name: Chava Pate Age: 46 yrs Sex: Male : 1975 Arrival Date: 12/14/2021 Time: 18:43 Bed 6 Private MD: ED Physician Jeremie Hurtado HPI: 12/14 19:19 This 46 yrs old Male presents to ER via Ambulatory with complaints of jl9 Shortness Of Breath, Feet Swelling, Water Retenion. 19:19 The patient has shortness of breath during heavy activity. Onset: The symptoms/episode jl9 began/occurred gradually. Duration: The symptoms are chronic. The patient's shortness of breath is aggravated by exertion. Historical: - Allergies: 18:56 No Known Allergies; ap3 - Home Meds: 18:56 gabapentin oral [Active]; ap3 - PMHx: 18:56 Diabetes - NIDDM; Hypertensive disorder; PERIPHERAL NEUROPATHY; ap3 - Immunization history:: Client reports receiving the 2nd dose of the Covid vaccine. - Social history:: Smoking status: Patient denies any tobacco usage or history of. ROS: 19:20 Constitutional: Negative for fever, chills, and weight loss, Eyes: Negative for injury, jl9 pain, redness, and discharge, ENT: Negative for injury, pain, and discharge, Neck: Negative for injury, pain, and swelling. 19:20 Abdomen/GI: Negative for abdominal pain, nausea, vomiting, diarrhea, and constipation, Back: Negative for injury and pain, : Negative for injury, bleeding, discharge, and swelling, MS/Extremity: Negative for injury and deformity, Skin: Negative for injury, rash, and discoloration, Neuro: Negative for headache, weakness, numbness, tingling, and seizure, Psych: Negative for depression, anxiety, suicide ideation, homicidal ideation, and hallucinations, Allergy/Immunology: Negative for hives, rash, and allergies, Endocrine: Negative for neck swelling, polydipsia, polyuria, polyphagia, and marked weight changes, Hematologic/Lymphatic: Negative for swollen nodes, abnormal bleeding, and unusual bruising. 19:20 Cardiovascular: Positive for edema, 1+ in legs bilaterally, Negative for chest pain, orthopnea, palpitations. 19:20 Respiratory: Positive for shortness of breath. Exam: 19:20 Constitutional: This is a well developed, well nourished patient who is awake, alert, jl9 and in no acute distress. Head/Face: Normocephalic, atraumatic. Eyes: Pupils equal round and reactive to light, extra-ocular motions intact. Lids and lashes normal. Conjunctiva and sclera are non-icteric and not injected. Cornea within normal limits. Periorbital areas with no swelling, redness, or edema. ENT: Mucous membranes moist. Neck: Trachea midline, no thyromegaly or masses palpated, and no cervical lymphadenopathy. Supple, full range of motion without nuchal rigidity, or vertebral point tenderness. No Meningismus. Chest/axilla: Normal chest wall appearance and motion. Nontender with no deformity. No lesions are appreciated. Respiratory: Lungs have equal breath sounds bilaterally, clear to auscultation and percussion. No rales, rhonchi or wheezes noted. No increased work of breathing, no retractions or nasal flaring. Abdomen/GI: Soft, non-tender, with normal bowel sounds. No distension or tympany. No guarding or rebound. No evidence of tenderness throughout. Back: No spinal tenderness. No costovertebral tenderness. Full range of motion. Skin: Warm, dry with normal turgor. Normal color with no rashes, no lesions, and no evidence of cellulitis. MS/ Extremity: Pulses equal, no cyanosis. Neurovascular intact. Full, normal range of motion. Neuro: Awake and alert, GCS 15, oriented to person, place, time, and situation. Cranial nerves II-XII grossly intact. Motor strength 5/5 in all extremities. Sensory grossly intact. Cerebellar exam normal. Normal gait. Psych: Awake, alert, with orientation to person, place and time. Behavior, mood, and affect are within normal limits. 19:20 Cardiovascular: Rate: normal, Rhythm: regular, Pulses: Edema: 1+ edema to level of left foot and right foot. Vital Signs: 18:54 Pulse 97; Resp 18; Temp 97.7; Pulse Ox 96% ; Weight 104.33 kg; Height 5 ft. 8 in. ap3 (172.72 cm); 18:57 BP 166 / 92; ap3 19:18 Pulse 88; Resp 18; Pulse Ox 98% on R/A; Pain 0/10; tw5 19:20 BP 187 / 106; tw5 21:38 BP 147 / 92; Pulse 92; Resp 18; Pulse Ox 98% ; zm 18:54 Body Mass Index 34.97 (104.33 kg, 172.72 cm) ap3 MDM: 18:48 Patient medically screened. jl9 19:21 Data reviewed: vital signs, nurses notes. 9 19:57 Test interpretation: by ED physician or midlevel provider: ECG, NSR. jl9 20:14 Counseling: I had a detailed discussion with the patient and/or guardian regarding: the [facility] historical points, exam findings, and any diagnostic results supporting the discharge/admit diagnosis, lab results, radiology results, the need for further work-up and treatment in the hospital. Physician consultation: AMARILIS Cristina in ED accepts for Dr Fonseca. . 12/14 18:55 Order name: CBC with Diff; Complete Time: 20:02 [facility] 12/14 18:55 Order name: CMP; Complete Time: 20:03 [facility] 12/14 18:55 Order name: XRAY Chest (1 view); Complete Time: 20:15 [facility] 12/14 18:55 Order name: BNP; Complete Time: 20:03 [facility] 12/14 20:11 Order name: SARS RAPID; Complete Time: 20:46 [facility] 12/14 21:31 Order name: Glucose, Ancillary Testing; Complete Time: 21:34 [facility] 12/14 18:55 Order name: EKG; Complete Time: 18:56 [facility] 12/14 18:55 Order name: Cardiac monitoring; Complete Time: 19:20 [facility] 12/14 18:55 Order name: EKG - Nurse/Tech; Complete Time: 20:22 [facility] 12/14 18:55 Order name: IV Saline Lock; Complete Time: 19:18 [facility] 12/14 18:55 Order name: Labs collected and sent; Complete Time: 19:17 [facility] 12/14 18:55 Order name: O2 Per Protocol; Complete Time: 19:17 [facility] 12/14 18:55 Order name: O2 Sat Monitoring; Complete Time: 19:17 [facility] Administered Medications: 20:12 Drug: Insulin Regular Human 10 units {Co-Signature: [email or web address] (Ronak Lemos RN).} Route: IVP; tw5 Site: right forearm; Disposition: 12/15 21:58 Co-signature as Attending Physician, Jeremie Hurtado MD I agree with the assessment and kdr plan of care. Disposition Summary: 12/14/21 20:14 Hospitalization Ordered Hospitalization Status: Inpatient Admission jl9 Provider: Marco Fonseca Location: Telemetry/MedSurg (Inpatient) jl9 Condition: Fair jl9 Problem: new jl9 Symptoms: have worsened jl9 Bed/Room Type: Standard 9 Room Assignment: 427(12/14/21 21:25) bb Diagnosis - End stage renal disease jl9 - Hyperglycemia, unspecified jl9 Forms: - Medication Reconciliation Form jl9 - SBAR form jl9 Signatures: Dispatcher [employer] EDMS Jeremie Hurtado MD MD kdr Judith Shah RN RN Radha Palma RN RN Marge Coffman Sophia, PA PA sb3 Corky Simeon jl9 Ronak Lemos RN jb4 Corrections: (The following items were deleted from the chart) 12/14 21:25 20:14 jl9 bb
[2021-12-14] MEDS ORDERED: INSULIN -REGULAR HUMAN 50 UNIT/0.5 ML ML ONE (20:18)
[2021-12-14 20:38] LABS: SARS-CoV-2 Antigen Rapid Res Negative (Negative)
[2021-12-14] MEDS ORDERED: ALBUTEROL 2.5 MG/3 ML NEB SOL NEB PRN (21:56)
[2021-12-14] MEDS ORDERED: ACETAMINOPHEN 500 MG TAB PO PRN (21:56)
[2021-12-14] MEDS ORDERED: ONDANSETRON 4 MG/2 ML VIAL IV PRN (21:56)
--- NOTE | 2021-12-14 22:19 | P.HP ---
Certification for Inpatient Patient admitted to: Inpatient With expected LOS: <2 Midnights Patient will require the following post-hospital care: None Practitioner: I am a practitioner with admitting privileges, knowledge of patient current condition, hospital course, and medical plan of care. Services: Services provided to patient in accordance with Admission requirements found in Title 42 Section 412.3 of the Code of Federal Regulations Patient History Date of Service: 12/14/21 Primary Care Provider: Demetrius Reason for admission: Acute on Chronic Renal Failure History of Present Illness: Patient is 46-year-old male with history of diastolic CHF, CKD 4, diabetes mellitus type 2non insulin-dependent, hypertension, and known noncompliance who presented to the emergency department for dyspnea on exertion and pedal edema. He was evaluated in the emergency department his labs were significant for hyperglycemia, CKD 4, elevated BNP he is noted to have increased swelling of lower extremities as well as increasing dyspnea on exertion over the course of last few days. He reports he has his medications but has not NOT been compliant with taking them. Patient has been admitted 2 times within the past 3 months for similar symptoms secondary to noncompliance. He was assessed by both nephrology and cardiology. Echo revealed normal left ejection fraction without wall motion abnormalities. He sees Dr. Rojas outpatient. Today in the ED, his labs are significant for creatinine 4.85, GFR 14, glucose 430, BNP 2677. Chest x-ray showed No acute cardiopulmonary process or No significant change from comparison study. He was given 10 units IV insulin. He is saturating appropriately. He is admitted for further management. Allergies No Known Allergies Allergy (Verified 10/19/17 00:45) Home Medications: Calcitrol [Rocaltrol*] 0.5 mcg PO DAILY #60 cap 09/06/21 Cholecalciferol (Vitamin D3) [Vitamin D 5,000 IU Cap*] 5,000 unit PO DAILY #30 cap 09/06/21 Glipizide [Glipizide Xl] 2.5 mg PO DAILY #30 tab.er.24 09/06/21 carvediloL [Coreg*] 25 mg PO BID #60 tab 09/06/21 Furosemide [Lasix*] 60 mg PO DAILY 30 Days #30 tab 09/26/21 Gabapentin [Neurontin*] 100 mg PO BID 30 Days #90 cap 09/26/21 Docusate [Colace Cap*] 100 mg PO BID 12/14/21 - Past Medical/Surgical History Diabetic: Yes -: Diabetes mellitus type 2 -: High Cholesterol -: Hypertension -: CKD with proteinuria followed by Dr. Rojas -: Diastolic CHF Past Surgical History: Patient denies surgical history Psychosocial/ Personal History: Patient lives at home alone. - Family History Father -: Diabetes - Social History Smoking Status: Never smoker Alcohol use: No CD- Drugs: No Caffeine use: No Place of Residence: Home Review of Systems Respiratory: Shortness of Breath Cardiovascular: Edema Physical Examination - Physical Exam General: Alert, In no apparent distress HEENT: Atraumatic, PERRLA, EOMI, Sclerae nonicteric Neck: Supple, 2+ carotid pulse no bruit, No LAD, Without JVD or thyroid abnormality Respiratory: Clear to auscultation bilaterally, Normal air movement Cardiovascular: Regular rate/rhythm, Normal S1 S2, Edema Gastrointestinal: Normal bowel sounds, No tenderness Musculoskeletal: No tenderness Integumentary: No rashes Neurological: Normal gait, Normal speech, Normal strength at 5/5 x4 extr, Normal tone, Normal affect - Studies Laboratory Data (last 24 hrs) 12/14/21 19:17: Sodium 133 L, Potassium 4.4, BUN 59 H, Creatinine 4.85 H, Glucose 430 H*, Total Bilirubin 0.1 L, AST 14 L, ALT 33, Alkaline Phosphatase 220 H 12/14/21 19:17: WBC 9.60, Hgb 11.1 L, Hct 32.0 L, Plt Count 286 Assessment and Plan - Problems (Diagnosis) (1) Acute renal failure superimposed on stage 4 chronic kidney disease Current Visit: Yes Status: Acute Qualifiers: Acute renal failure type: unspecified Qualified Code(s): N17.9 - Acute kidney failure, unspecified; N18.4 - Chronic kidney disease, stage 4 (severe) (2) Peripheral edema Current Visit: Yes Status: Acute (3) Diabetes mellitus Onset Date: 10/20/17 Current Visit: Yes Status: Chronic Qualifiers: Diabetes mellitus type: type 2 Diabetes mellitus penitentiary insulin use: without terminal computer operator use Diabetes mellitus complication status: with hyperglycemia Qualified Code(s): E11.65 - Type 2 diabetes mellitus with hyperglycemia (4) Diabetic neuropathy Onset Date: 10/20/17 Current Visit: No Status: Chronic Qualifiers: (5) Hypertension Current Visit: Yes Status: Chronic Qualifiers: Hypertension type: primary hypertension Qualified Code(s): I10 - Essential (primary) hypertension - Plan -40 mg lasix IV BID. -Cardiology and nephrology consulted. -Renal diet. 1500 cc/day fluid restriction. Daily weight. -Most recent echocardiogram 10/10 demonstrates normal left ejection fraction without wall motion abnormalities. -Patient instructed on need for fluid restriction, daily weights, and close follow-up. -Blood sugar was 430 in the ED. ACHS Accu Chek, aggressive sliding scale insulin. A1C ordered for morning. -Monitor and replete electrolytes per protocol -Reconcile and continue home medications -Heparin for VTE ppx -Full code Discharge Plan: Home Plan to discharge in: 48 Hours - Advance Directives Does patient have a Living Will: No Does patient have a Durable POA for Healthcare: No - Code Status/Comfort Care Code Status Assessed: Yes (Full) Critical Care: No Time Spent Managing Pts Care (In Minutes): 50
[2021-12-14] MEDS ORDERED: FUROSEMIDE 40 MG/4 ML VIAL IV ONE (22:38)
[2021-12-15] MEDS: HEPARIN 5000 UNIT/ML 1 ML VIAL SQ SCH ×2 (00:33→09:00)
[2021-12-15 04:41] LABS: Urine Bilirubin Negative (Negative); Urine Blood 2+ (Negative); Urine Clarity Clear (Clear); Urine Color Yellow (Yellow); Urine Glucose 2+ (Negative); Urine Protein 3+ (Negative); Urine Urobilinogen 0.2 mg/dL (0.2-1.0)
[2021-12-15 04:57] LABS: Urine Bacteria <20 /HPF (<20)
[2021-12-15 04:58] LABS: Urine Mucus 1+ /HPF (None Seen)
[2021-12-15 05:53] LABS: Absolute Lymphocytes (CBC) 2.2 K/uL (0.7-4.9); Hematocrit 33.3 % (39.6-49.0); Lymphocytes % 24.2 % (15.3-44.8); MCV 80.2 fL (80-100); MPV 7.5 fL (7.6-11.3); RBC Red Blood Cell Count 4.15 M/uL (4.33-5.43)
[2021-12-15 06:06] LABS: Albumin 2.3 g/dL (3.4-5.0); Magnesium 2.1 mg/dL (1.8-2.4); Phosphorus 4.9 mg/dL (2.5-4.9); Potassium 4.3 mmol/L (3.5-5.1)
[2021-12-15] MEDS: INSULIN -REGULAR HUMAN 50 UNIT/0.5 ML ML SQ SCH ×4 (07:30→22:22)
[2021-12-15] MEDS: VITAMIN D 5,000 UNIT CAP PO SCH (11:52)
[2021-12-15] MEDS: carvediloL 25 MG TAB PO SCH ×2 (11:52→22:21)
[2021-12-15] MEDS: GABAPENTIN 100 MG CAP PO SCH ×2 (11:53→22:21)
[2021-12-15] MEDS: DOCUSATE NA 100 MG CAP PO SCH ×2 (11:53→22:22)
[2021-12-15] MEDS: CALCITROL 0.25 MCG CAP PO SCH (11:53)
[2021-12-15] MEDS: FUROSEMIDE 40 MG/4 ML VIAL IV SCH ×2 (11:53→16:48)
[2021-12-15] MEDS: ENOXAPARIN 30 MG/0.3 ML SQ SCH (11:53)
--- NOTE | 2021-12-15 15:15 | P.CNS ---
Date of Consult: 12/15/21 Reason for Consult: Renal failure Requesting Physician: Marco Fonseca Primary Care Provider: Demetrius Chief Complaint: Acute on Chronic Renal Failure History of Present Illness: Patient is 46-year-old male with history of uncontrolled Type II diabetes mellitus, chronic hypertension, progressive advanced CKD who presented to the hospital on his own as he noted increased peripheral edema, dyspnea on exertion, fatigue and some orthopnea. He was evaluated in the emergency department and his labs were significant for hyperglycemia, renal failure and other. Pt acknowledges that he was not really taking any medications in the recent past other than Gabapentin for some peripheral neuropathy. He reports that after last hospitalization, he was diligent with medications for about a month before fall ing back into a pattern where because he largely felt okay, he did not take his health issues seriously. He saw Dr. Rojas once in clinic in September for f/u post hospitalization but not return in October. Pt has not been checking his BG or BP at home. He denies dyspnea or CP at rest currently. Allergies No Known Allergies Allergy (Verified 10/19/17 00:45) Home Medications: Calcitrol [Rocaltrol*] 0.5 mcg PO DAILY #60 cap 09/06/21 Cholecalciferol (Vitamin D3) [Vitamin D 5,000 IU Cap*] 5,000 unit PO DAILY #30 cap 09/06/21 Glipizide [Glipizide Xl] 2.5 mg PO DAILY #30 tab.er.24 09/06/21 carvediloL [Coreg*] 25 mg PO BID #60 tab 09/06/21 Furosemide [Lasix*] 60 mg PO DAILY 30 Days #30 tab 09/26/21 Gabapentin [Neurontin*] 100 mg PO BID 30 Days #90 cap 09/26/21 Docusate [Colace Cap*] 100 mg PO BID 12/14/21 - Past Medical/Surgical History Diabetic: Yes -: Diabetes mellitus type 2 -: High Cholesterol -: Hypertension -: CKD with proteinuria followed by Dr. Rojas -: Diastolic CHF Psychosocial/ Personal History: Patient lives at home alone. - Family History Father Medical History: Diabetes - Social History Alcohol use: No CD- Drugs: No Caffeine use: No Place of Residence: Home Review of Systems General: Other (Fatigue) Eyes: Unremarkable ENT: Unremarkable Respiratory: Shortness of Breath Cardiovascular: Orthopnea, Edema Gastrointestinal: Unremarkable Genitourinary: Unremarkable Musculoskeletal: Pedal edema Integumentary: Unremarkable Neurological: Unremarkable Lymphatics: Unremarkable Physical Examination Temp Pulse Resp BP Pulse Ox 97.4 F 80 16 175/90 H 98 12/15/21 12:00 12/15/21 12:00 12/15/21 12:00 12/15/21 12:00 12/15/21 12:00 General: Alert, In no apparent distress, Oriented x3 HEENT: Atraumatic, Normocephalic, EOMI Neck: Supple Respiratory: Clear to auscultation bilaterally, Normal air movement Cardiovascular: Normal pulses, Regular rate/rhythm, Normal S1 S2, Other (Mild distal edema) Gastrointestinal: Soft and benign, Non-distended, No tenderness, No rebound, No guarding Musculoskeletal: No swelling, No contractures Integumentary: No rashes, No breakdown Neurological: Normal speech, Other (Non focal) Laboratory Data (last 24 hrs) 12/14/21 19:17: Sodium 133 L, Potassium 4.4, BUN 59 H, Creatinine 4.85 H, Glucose 430 H*, Total Bilirubin 0.1 L, AST 14 L, ALT 33, Alkaline Phosphatase 220 H 12/14/21 19:17: WBC 9.60, Hgb 11.1 L, Hct 32.0 L, Plt Count 286 Conclusions/Impression: 1. Abnormal results of kidney function studies 2. CKD V 3. Presumed diabetic nephropathy 4. Persistent proteinuria 5. Volume overload unspecified 6. Hypertensive CKD Stage V 7. Type II DM with hyperglycemia 8. Anemia 2nd to CKD, other -Pt has had progressive CKD based on review of labs over the past 18 mo or so although current labs are not far from the range seen on the last admission. Renal u/s in August showed preserved kidney sizes but increased renal echogenicity. Pt is non oliguric and diuresing in response to IV lasix so there is no emergent indication for CELL TECHNICIAN but pt's eGFR is now < 15 ml/min and he is at risk for dialysis dependence in the near future and CELL TECHNICIAN options/pre dialysis planning needs to take place. Pt acknowledges the severity of his health issues but readily admits that he struggles to get himself to comply with medications and follow up as he does not always feel poorly. We did however discuss the trajectory of symptoms that would develop if GFR further declined and uremia developed among other complications that could with uncontrolled DM and HTN. -Cont IV lasix but will transition to PO diuretics by tmrw which pt will need to cont as an OP. Pt may have a degree of nephrotic syndrome as he is suspected to have significant proteinuria (will confirm on UACR) and he does have marked hypoalbuminemia. BNP levels are difficult to interpret in the setting of his renal impairment and will need to monitor weight, clinical status, labs and BP as an OP to guide adjustment in diuretics. -Will not add any ACEi or ARB at this stage to avoid confounding further physiologic drop(s) in GFR and risk for hyperkalemia. -Will add a dihydropyridine CCB for his BP even if it is associated with edema e ffects as his BP remains accelerated. Target BP < 130/80 -With A1c level > 8.5%, pt would benefit from basal Insulin on discharge, and pt counseled on diet. Given low GFR state, would not employ SGLT2i agents. -Dose meds for reduced CrCl state, avoid nephrotoxins. Thank you for this referral, Elliott Bajwa MD, [facility]
--- NOTE | 2021-12-15 15:19 | EKG ---
Test Date: 2021-12-14 Test Time: 19:57:53 Metal Technician: MATT MEASUREMENT RESULTS: Intervals: Rate: 90 CO: 112 QRSD: 86 QT: 376 QTc: 459 Bradley: P: 40 CO: 112 QRS: -39 T: 87 INTERPRETIVE STATEMENTS: Normal sinus rhythm Left axis deviation Nonspecific T wave abnormality Abnormal ECG Compared to ECG 09/25/2021 03:18:07 Left-axis deviation now present T-wave abnormality now present Electronically Signed On 12-15-21 15:18:19 CDT by Mason Jasso
[2021-12-15] MEDS ORDERED: AMLODIPINE 5 MG TAB PO SCH (16:00)
[2021-12-16 06:33] LABS: Albumin 2.3 g/dL (3.4-5.0); Phosphorus 5.8 mg/dL (2.5-4.9); Potassium 4.4 mmol/L (3.5-5.1)
[2021-12-16] MEDS ORDERED: FUROSEMIDE 40 MG TABLET PO SCH (09:00)
[2021-12-16] MEDS: GLIPIZIDE 2.5 MG PO SCH (09:00)
[2021-12-16] MEDS: VITAMIN D 5,000 UNIT CAP PO SCH (09:00)
[2021-12-16] MEDS: DOCUSATE NA 100 MG CAP PO SCH ×2 (09:12→21:43)
[2021-12-16] MEDS: GABAPENTIN 100 MG CAP PO SCH ×2 (09:12→21:43)
[2021-12-16] MEDS: CALCITROL 0.25 MCG CAP PO SCH (09:12)
[2021-12-16] MEDS: carvediloL 25 MG TAB PO SCH ×2 (09:12→21:43)
[2021-12-16] MEDS: ENOXAPARIN 30 MG/0.3 ML SQ SCH (09:12)
[2021-12-16] MEDS: INSULIN -REGULAR HUMAN 50 UNIT/0.5 ML ML SQ SCH ×4 (09:13→21:43)
--- NOTE | 2021-12-16 17:43 | P.PN ---
Subjective Date of Service: 12/15/21 Primary Care Provider: Demetrius Chief Complaint: Acute on Chronic Renal Failure Subjective: Improving (Patient is improving has been diuresed seen by nephrology) Review of Systems Unremarkable Physical Examination - Vital Signs Temperature: 97.4 F Blood Pressure: 127/89 Pulse: 79 Respirations: 16 Pulse Ox (%): 97 - Physical Exam General: Alert, In no apparent distress, Oriented x3 Respiratory: Clear to auscultation bilaterally Cardiovascular: No edema, Regular rate/rhythm Assessment And Plan - Current Problems (Diagnosis) (1) Acute renal failure superimposed on stage 4 chronic kidney disease Current Visit: Yes Status: Acute Plan: Patient is 46 years of age admitted with acute on chronic renal disease seen by nephrology scented with lower extremity edema continue with diuresis is feeling better he has diabetes hypertension poorly controlled continue with present medication Qualifiers: Acute renal failure type: unspecified Qualified Code(s): N17.9 - Acute kidney failure, unspecified; N18.4 - Chronic kidney disease, stage 4 (severe)
--- NOTE | 2021-12-16 17:46 | P.PN ---
Subjective Date of Service: 12/16/21 Primary Care Provider: Demetrius Chief Complaint: Acute on Chronic Renal Failure Subjective: Improving (Improving no change feeling better) Review of Systems Unremarkable Physical Examination - Vital Signs Temperature: 97.4 F Blood Pressure: 127/89 Pulse: 79 Respirations: 16 Pulse Ox (%): 97 - Physical Exam General: Alert, In no apparent distress, Oriented x3 Respiratory: Clear to auscultation bilaterally Assessment And Plan - Current Problems (Diagnosis) (1) Acute renal failure superimposed on stage 4 chronic kidney disease Current Visit: Yes Status: Acute Plan: Patient continues to feel good there is no more lower extremity edema seen by nephrology continue with diuresis Qualifiers: Acute renal failure type: unspecified Qualified Code(s): N17.9 - Acute kidney failure, unspecified; N18.4 - Chronic kidney disease, stage 4 (severe) (2) Diabetes mellitus Onset Date: 10/20/17 Current Visit: Yes Status: Chronic Plan: Poorly controlled diabetes A1c is very elevated start patient on low-dose insulin Qualifiers: Diabetes mellitus type: type 2 Diabetes mellitus correction insulin use: without correction use Diabetes mellitus complication status: with hyperglycemia Qualified Code(s): E11.65 - Type 2 diabetes mellitus with hyperglycemia
[2021-12-16] MEDS: FUROSEMIDE 40 MG TABLET PO SCH (18:28)
--- NOTE | 2021-12-16 19:50 | P.PN ---
Date of Service: 12/16/21 Nephrology note (S) Delayed entry note, telemedicine visit, spoke with pt over the phone earlier this afternoon. Pt reports doing fair, denies dyspnea, weight/edema improved, discussed renal function tests in detail. BP was lower early AM and pt acknowledges some lightheadedness earlier in the day. (O) vitals reviewed in the EMR PE: (prior exam) General: Alert, In no apparent distress, Oriented x3 HEENT: Atraumatic, Normocephalic, EOMI Neck: Supple Respiratory: Clear to auscultation bilaterally, Normal air movement Cardiovascular: Normal pulses, Regular rate/rhythm, Normal S1 S2, Other (Mild distal edema) Gastrointestinal: Soft and benign, Non-distended, No tenderness, No rebound, No guarding Musculoskeletal: No swelling, No contractures Integumentary: No rashes, No breakdown Neurological: Normal speech, Other (Non focal) Laboratory Data (last 24 hrs) Labs reviewed in the EMR Conclusions/Impression: 1. Abnormal results of kidney function studies 2. Stage II MICHELLE sumperimposed on CKD V 3. Presumed diabetic nephropathy 4. Persistent proteinuria 5. Volume overload unspecified 6. Hypertensive CKD Stage V 7. Type II DM with hyperglycemia 8. Anemia 2nd to CKD, other -Pt has had progressive CKD based on review of labs over the past 18 mo or so although on admission labs were not far from the range seen on the last admission. Renal u/s in August showed preserved kidney sizes but increased renal echogenicity. -Renal function worse in the setting of diuresis and BP lowering but no emergent indication for SULFONATOR OPERATOR yet however he remains at risk for dialysis dependence in the near future if we can avoid it currently and SULFONATOR OPERATOR options/pre dialysis planning needs to take place. Pt acknowledges the severity of his health issues but readily admitted on discussion yesterday that he struggles to get himself to comply with medications and follow up as he does not always feel poorly. We did however discuss the trajectory of symptoms that would develop if GFR further declined and uremia developed among other complications that could with uncontrolled DM and HTN. -Will slow diuresis, switched IV lasix to PO and placed holding parameters. Pt may have a degree of nephrotic syndrome as he is suspected to have significant proteinuria (will confirm on UACR) and he does have marked hypoalbuminemia. BNP levels are difficult to interpret in the setting of his renal impairment and will need to monitor weight, clinical status, labs and BP as an OP to guide adjustment in diuretics. -Will not add any ACEi or ARB at this stage to avoid confounding further physiologic drop(s) in GFR and risk for hyperkalemia. -Did add a dihydropyridine CCB for his BP yesterday as his BP remains accelerated but BP did dip briefly overnight so will hold off continuing this currently. Target BP < 130/80 but avoid hypotension. -With A1c level > 8.5%, pt would benefit from basal Insulin on discharge, and pt counseled on diet. Given low GFR state, would not employ SGLT2i agents. -Dose meds for reduced CrCl state, avoid nephrotoxins. Elliott Bajwa MD, [facility]
[2021-12-16] MEDS ORDERED: INSULIN GLARGINE 100 UNIT/ML SQ SCH (21:00)
[2021-12-17 00:51] VITALS: BMI 33.7
[2021-12-17 02:13] VITALS: O2SAT 96
[2021-12-17 04:34] LABS: ALT/SGPT 26 U/L (12-78); AST/SGOT 8 U/L (15-37); Albumin 2.2 g/dL (3.4-5.0); Alkaline Phosphatase 103 U/L (45-117); BUN Blood Urea Nitrogen 57 mg/dL (7-18); Bicarbonate 25 mmol/L (21-32); Bilirubin Total 0.2 mg/dL (0.2-1.0); Glomerular Filtration Rate 12 ml/min (=/>90); Glucose Level 173 mg/dL (74-106); HDL Cholesterol 29 mg/dL (40-60); Potassium 3.8 mmol/L (3.5-5.1); Protein, Total 6.2 g/dL (6.4-8.2); Sodium Level 137 mmol/L (136-145)
[2021-12-17 04:46] LABS: LDL, Direct 119 mg/dL (100-129)
[2021-12-17] MEDS: INSULIN -REGULAR HUMAN 50 UNIT/0.5 ML ML SQ SCH ×2 (07:30→13:06)
[2021-12-17] MEDS: GLIPIZIDE 2.5 MG PO SCH (09:00)
[2021-12-17] MEDS: VITAMIN D 5,000 UNIT CAP PO SCH (09:00)
[2021-12-17] MEDS: CALCITROL 0.25 MCG CAP PO SCH (09:35)
[2021-12-17] MEDS: DOCUSATE NA 100 MG CAP PO SCH (09:35)
[2021-12-17] MEDS: GABAPENTIN 100 MG CAP PO SCH (09:36)
[2021-12-17] MEDS: carvediloL 25 MG TAB PO SCH (09:36)
[2021-12-17] MEDS: FUROSEMIDE 40 MG TABLET PO SCH (09:36)
[2021-12-17] MEDS: ENOXAPARIN 30 MG/0.3 ML SQ SCH (09:37)
--- NOTE | 2021-12-17 11:56 | CON ---
Date of Consultation: 12/16/2021 Reason For Consultation: We are consulted on 12/16/2021 for possible congestive heart failure. History Of Present Illness: Mr. Pate is 46, history of diabetes, hypertension, neuropathy, admit brad with acute renal failure, shortness of breath and edema. Denied any chest pain, nausea, vomiting , diaphoresis. Has had some PND, orthopnea, pedal edema, palpitation. No syncope. Denied any fever or chills. Creatinine is 5.59, glucose was 342. Chest x-ray was negative. EKG was negative. Echo cardiogram which was done today was also negative with normal ejection fraction, maybe some mild bey tolic congestive heart failure expected with his hypertension and renal dysfunction. The patient den ied any chest pain. Past Medical History: includes diabetes, hypertension, and neuropathy. Allergies: NONE. Review of Systems: Negative. Social History: Negative. Family History: Positive for hypertension. Medications: At home include Neurontin, glipizide, Coreg, and Lasix. Physical Examination: Vital Signs: Stable, afebrile. HEENT: Negative. Neck: Supple with no bruit. Chest: Clear to auscultation and percussion. Cardiac: Revealed a regular rhythm and rate. No murmurs, gallops, or rubs. Abdomen: Benign. Extremities: Revealed no clubbing, cyanosis, or edema. Diagnostic Data: As stated earlier. Impression And Plan: Shortness of breath and edema secondary to fluid retention and volume overload from renal failure. His echocardiogram is unremarkable. Nephrology is following. I think he needs hemodialysis, but I will leave that up to Nephrology to decide. His diabetes is poorly controlled, w e need to work on that. His blood pressure and neuropathy are fairly stable. We will continue to fo llow him. NB/MODL Voice ID: [id number] Report ID: [id number]
--- NOTE | 2021-12-17 13:07 | P.PN ---
Date of Service: 12/17/21 Vital Signs Temp Pulse Resp BP Pulse Ox 97.6 F 73 14 136/75 95 12/17/21 04:00 12/17/21 09:36 12/17/21 08:00 12/17/21 09:36 12/17/21 08:00 Medications Acetaminophen (Acetaminophen 500 Mg Tab) 500 mg PO Q4HP PRN PRN Reason: Pain scale 2-4 (Mild) Albuterol Sulfate (Albuterol 2.5 Mg/3 Ml Neb Fozia) 2.5 mg NEB Q6HP PRN PRN Reason: SHORTNESS OF BREATH Calcitriol (Calcitrol 0.25 Mcg Cap) 0.5 mcg PO DAILY [facility] Last Admin: 12/17/21 09:35 Dose: 0.5 mcg Carvedilol (Carvedilol 25 Mg Tab) 25 mg PO BID [facility] Last Admin: 12/17/21 09:36 Dose: 25 mg Cholecalciferol (Vitamin D 5,000 Unit Cap) 5,000 unit PO DAILY [facility] Last Admin: 12/17/21 09:00 Dose: 5,000 unit Docusate Sodium (Docusate Na 100 Mg Cap) 100 mg PO BID [facility] Last Admin: 12/17/21 09:35 Dose: 100 mg Enoxaparin Sodium (Enoxaparin 30 Mg/0.3 Ml) 30 mg SQ DAILY [facility] Last Admin: 12/17/21 09:37 Dose: 30 mg Furosemide (Furosemide 40 Mg Tablet) 40 mg PO BIDL [facility] Last Admin: 12/17/21 09:36 Dose: 40 mg Gabapentin (Gabapentin 100 Mg Cap) 100 mg PO BID [facility] Last Admin: 12/17/21 09:36 Dose: 100 mg Home Med (Glipizide [Glipizide Xl]) 2.5 mg PO DAILY [facility] Last Admin: 12/17/21 09:00 Dose: Not Given Insulin Glargine (Insulin Glargine 100 Unit/Ml) 20 unit SQ BEDTIME [facility] Last Admin: 12/16/21 21:44 Dose: 20 unit Insulin Human Regular (Insulin -Regular Human 50 Unit/0.5 Ml Ml) 0 unit SQ ACHS [facility]; Protocol Last Admin: 12/17/21 07:30 Dose: 4 unit Ondansetron HCl (Ondansetron 4 Mg/2 Ml Vial) 4 mg IV Q6HP PRN PRN Reason: NAUSEA / VOMITING Sodium Chloride (Flush Normal Saline 10 Ml) 10 ml IV BID [facility] Last Admin: 12/17/21 09:38 Dose: 10 ml Assessment/ Plan: Nephrology No dyspnea No chest pain No acute events overnight Vitals, medications, blood work and imaging reviewed in the chart. NAD. NCAT. MMM. CTA. RRR. Soft Abd. No C/C. LE Edema trace. No rash. AAO. Normal speech. CKD V with proteinuria Nephrotic syndrome -No NSAIDs -Counseled regarding dialysis preparation HTN with CKD -Continue Coreg LE Edema -Continue Furosemide PO 40mg BID DM II with CKD, Polyneuropathy, Hyperglycemia -Continue Lantus -Continue Glipizide -Continue Gabapentin Hypoalbuminemia -Encourage nutrition Anemia in CKD -Retacrit prn CKD MBD -Continue Vitamin D Case reviewed with Dr. Christopher
[2021-12-17 13:13] VITALS: BP 117/80; TEMP 97.2
[2021-12-17] MEDS ORDERED: ALBUTEROL 2.5 MG/3 ML NEB SOL NEB PRN (14:00)
--- NOTE | 2021-12-17 16:01 | P.DS ---
Admission Date: 12/14/21 Discharge Date: 12/17/21 Primary Care Provider: Ramon Romo M.D. Disposition: ROUTINE DISCHARGE Discharge Condition: GOOD Reason for Admission: Acute on Chronic Renal Failure Consultations: 1. Nephrology 2. Cardiology Hospital Course: DIAGNOSES: # KDIGO Stage III Acute Kidney Injury on Chronic Kidney Disease Stage V # Chronic Congestive Diastolic Heart Failure # Type II Diabetes Mellitus complicated by Diabetic Neuropathy # Hypertension HOSPITAL COURSE: Mr. Chava Pate is a pleasant 46 year old male with a past medical history significant for chronic kidney disease stage V, chronic diastolic heart failure, type II diabetes mellitus, and hypertension who was admitted to the [facility] on 12/14/2021 for lower extremity edema. He was admitted to the Medicine service for further evaluation. Upon further evaluation, he was found to have an acute kidney injury. He was evaluated by Nephrology and it was deemed that, although he currently does not require hemodialysis, he will likely require this in the near future. He also received a cardiology evaluation while hospitalized and his transthoracic echocardiogram revealed mild diastolic dysfunction. Dr. Bell evaluated him and believed his symptoms to be secondary to renal failure rather than heart failure. He was seen by Dr. Rojas and deemed medically stable for discharge. He recommended that he be discharged with furosemide 40 mg twice daily. He will schedule close follow- up with him in clinic for outpatient initiation of hemodialysis. Prior to discharge, he received nutrition education from a registered dietitian regarding diabetic and renal diets. Our nursing staff also assisted him and educated him on how to use insulin at home. On 12/17/2021, he was seen on rounds and deemed medically stable for discharge. He was discharged with instructions to schedule follow-up appointments with his PCP (Dr. Romo) in 3-5 days and with Nephrology (Dr. Rojas) in 5-7 days. He was provided prescriptions for furosemide, insulin, and diabetic supplies (glucometer, lancets, test trips). He was given the opportunity to ask questions and reported no further questions. Furthermore, all questions were answered to the best of my ability. Today, I personally spent 25 minutes on his case, of which greater than 50% of the time was spent in patient education, counseling, and coordination of care as described above. Vital Signs/Physical Exam: Temp Pulse Resp BP Pulse Ox 97.2 F 74 16 117/80 98 08/29/22 12:00 12/17/21 12:00 12/17/21 12:00 12/17/21 12:00 12/17/21 12:00 General: Alert, In no apparent distress, Oriented x3 HEENT: Atraumatic, PERRLA, Mucous membr. moist/pink, EOMI, Sclerae nonicteric Neck: Supple, JVD not distended Respiratory: Clear to auscultation bilaterally, Normal air movement Cardiovascular: Regular rate/rhythm, Normal S1 S2, No gallops, No rubs, No murmurs, Edema (1+ pitting) Gastrointestinal: Normal bowel sounds, Soft and benign, Non-distended, No tenderness, No rebound, No guarding Musculoskeletal: No clubbing Integumentary: No rashes Neurological: Normal speech, Cranial nerves 3-12 intact, Normal affect Laboratory Data at Discharge: WBC 9.10 K/uL (4.3-10.9) 12/15/21 05:24 Hgb 11.5 g/dL (13.6-17.9) L 12/15/21 05:24 Hct 33.3 % (39.6-49.0) L 12/15/21 05:24 Plt Count 280 K/uL (152-406) 12/15/21 05:24 Sodium 137 mmol/L (136-145) 12/17/21 03:02 Potassium 3.8 mmol/L (3.5-5.1) 12/17/21 03:02 BUN 57 mg/dL (7-18) H 12/17/21 03:02 Creatinine 5.59 mg/dL (0.55-1.3) H* 12/17/21 03:02 Glucose 173 mg/dL (74-106) H 12/17/21 03:02 Phosphorus 5.8 mg/dL (2.5-4.9) H 12/16/21 05:22 Magnesium 2.1 mg/dL (1.8-2.4) 12/15/21 05:24 Total Bilirubin 0.2 mg/dL (0.2-1.0) 12/17/21 03:02 AST 8 U/L (15-37) L 12/17/21 03:02 ALT 26 U/L (12-78) 12/17/21 03:02 Alkaline Phosphatase 103 U/L (45-117) D 12/17/21 03:02 Triglycerides 482 mg/dL (<150) H 12/17/21 03:02 Cholesterol 212 mg/dL (<200) H 12/17/21 03:02 LDL Cholesterol Direct 119 mg/dL (100-129) 12/17/21 03:02 HDL Cholesterol 29 mg/dL (40-60) L 12/17/21 03:02 Cholesterol/HDL Ratio 7.31 12/17/21 03:02 Home Medications: Calcitrol [Rocaltrol*] 0.5 mcg PO DAILY #60 cap 09/06/21 Cholecalciferol (Vitamin D3) [Vitamin D 5,000 IU Cap*] 5,000 unit PO DAILY #30 cap 09/06/21 Glipizide [Glipizide Xl] 2.5 mg PO DAILY #30 tab.er.24 09/06/21 carvediloL [Coreg*] 25 mg PO BID #60 tab 09/06/21 Gabapentin [Neurontin*] 100 mg PO BID 30 Days #90 cap 09/26/21 Docusate [Colace Cap*] 100 mg PO BID 12/14/21 Blood Sugar Diagnostic [Glucose Test Strip] 1 each MC 30 MIN BEFORE HS #100 strip 12/17/21 Diabetic Supplies,Miscell [C[employer] Chair] 1 each MC DAILY 30 Days 12/17/21 Furosemide [Lasix*] 40 mg PO BIDL #60 tab 12/17/21 Insulin Glargine,Hum.rec.anlog [Semglee] 20 unit SQ BEDTIME #10 ml 12/17/21 Lancets/Blood Glucose Strips [Gojji Lancet 30G-Gluc Tst Strp] 1 each MC 30 MIN BEFORE HS #100 strip 12/17/21 New Medications: Diabetic Supplies,Miscell [[employer] Chair] 1 each MC DAILY 30 Days Blood Sugar Diagnostic [Glucose Test Strip] 1 each MC 30 MIN BEFORE HS #100 strip Lancets/Blood Glucose Strips [Gojji Lancet 30G-Gluc Tst Strp] 1 each MC 30 MIN BEFORE HS #100 strip Furosemide [Lasix*] 40 mg PO BIDL #60 tab Insulin Glargine,Hum.rec.anlog [Semglee] 20 unit SQ BEDTIME #10 ml Physician Discharge Instructions: 1. Please schedule a follow-up with your PCP (Dr. Romo) in 3-5 days 2. Please schedule a follow-up with Nephrology (Dr. Rojas) in 5-7 days Diet: Other (Diabetic, Renal) Activity: Ad minh Followup: Zeeshan oRjas DO [ACTIVE - CAN ADMIT] - 1 Week Ramon Romo MD [Primary Care Provider] - 1 Week Time spent managing pt's care (in minutes): 25
--- NOTE | 2021-12-21 07:02 | ECHO ---
HEIGHT: 5 ft 8 in WEIGHT: 224 lb 0 oz DATE OF STUDY: 12/17/[address]: Zacarias Christopher MD 2-DIMENSIONAL: YES M.MODE: YES DOPPLER: YES COLOR FLOW: YES TDS: NO PORTABLE: YES DEFINITY: NO BUBBLE STUDY: NO DIAGNOSIS: CONGESTIVE HEART FAILURE CARDIAC HISTORY: CATHERIZATION: NO SURGERY: NO PROSTHETIC VALVE: NO PACEMAKER: NO MEASUREMENTS (cm) DIASTOLIC (NORMALS) SYSTOLIC (NORMALS) IVSd 1.3 (0.6-1.2) LA Diam 3.3 (1.9-4.0) LVEF 50% LVIDd 4.0 (3.5-5.7) LVIDs 2.7 (2.0-3.5) %FS 31% LVPWd 1.3 (0.6-1.2) Ao Diam 2.6 (2.0-3.7) 2 DIMENSIONAL ASSESSMENT: RIGHT ATRIUM: NORMAL LEFT ATRIUM: NORMAL RIGHT VENTRICLE: NORMAL LEFT VENTRICLE: NORMAL TRICUSPID VALVE: NORMAL MITRAL VALVE: NORMAL PULMONIC VALVE: NORMAL AORTIC VALVE: NORMAL PERICARDIAL EFFUSION: NONE AORTIC ROOT: NORMAL LEFT VENTRICULAR WALL MOTION: MILD GLOBAL HYPOKINESIS. DOPPLER/COLOR FLOW: SEE BELOW. COMMENTS: LOW NORMAL LEFT VENTRICULAR EJECTION FRACTION OF 50%. MILD GLOBAL HYPOKINESIS. TECHNOLOGIST: YEN CROWE
== END 2021-12-17 16:32 | disposition home or self-care (01) | DRG 683 ==
LOC: ER 18:39 → 4TH 21:40
PROVIDERS: ADMIT Internal Medicine Sleep Medicine; ATTEND Internal Medicine
DX: N17.9 Acute kidney failure, unspecified (principal); I50.32 Chronic diastolic (congestive) heart failure; I13.2 Hypertensive heart and chronic kidney disease with heart failure and with stage 5 chronic kidney disease, or end stage renal disease; N18.5 Chronic kidney disease, stage 5; E11.22 Type 2 diabetes mellitus with diabetic chronic kidney disease; E11.65 Type 2 diabetes mellitus with hyperglycemia; E11.42 Type 2 diabetes mellitus with diabetic polyneuropathy; E88.09 Other disorders of plasma-protein metabolism, not elsewhere classified; E87.70 Fluid overload, unspecified; D63.1 Anemia in chronic kidney disease; Z60.2 Problems related to living alone; Z79.02 Long term (current) use of antithrombotics/antiplatelets; Z79.4 Long term (current) use of insulin; Z91.19 Patient's noncompliance with other medical treatment and regimen; Z79.84 Long term (current) use of oral hypoglycemic drugs; Z79.899 Other long term (current) drug therapy; Z20.822 Contact with and (suspected) exposure to COVID-19
CPT/HCPCS: 36415; 71045; 80053; 80061; 80069; 81001; 82043; 82570; 82947; 83036; 83735; 83880; 85025; 87811; 93005; 93306; 94760; 96374; 99285; J1644; J1650; J1815; J1940

== ENCOUNTER 2022-02-08 08:07 | Emergency (ER) | payer BC ==
--- OUTSIDE RECORDS SUMMARY | 2022-02-08 08:11 | XMS REPORT | Continuity of Care Document ---
:[address] [facility] t Address [address] [place] [address] Care Team Providers Name Role Phone YISSELRITA JEFFREY Primary Care Physician Unavailable Gorge OLMOS-C, Rochelle Gomez Attending Clinician [phone] Tabatha Katz MA Attending Clinician Unavailable Antoinette MEDRANO, April Attending Clinician Unavailable Dyllan Albert MD Attending Clinician Kamilla Tello MA Attending Clinician Unavailable Rashad HODGES, Carolyn Thompson Attending Clinician Whitney Dow Attending Clinician Deborah MEDRANO, Desi Nicolas Attending Clinician Unavailable TURNER GARCIA Attending Clinician Unavailable Turner Garcia MD Attending Clinician DYLLAN ALBERT Admitting Clinician Unavailable TURNER GARCIA Admitting Clinician Unavailable Payers Payer Name Policy Type Policy Number Effective Date Expiration Date S ource Problems Condition Condition Condition Status Onset Resolution Last Treating Co mments Source Name Details Category Date Date Treatment Clinician Date ESRD (end ESRD (end Disease Active Overview: Methodi stage stage 9-[address] renal renal 00:00: g of this Hospita disease) disease) 00 note l might be different from the original. Added automatic ally from request for surgery [id number] No known No known Disease Unive rs active active ity of problems problems [facility] [place] Allergies, Adverse Reactions, Alerts Allergy Allergy Status Severity Reaction(s) Onset Inactive Treating Comm ents Source Name Type Date Date Clinician NO KNOWN Drug Active Univers ALLERGIE Class ity of S [facility] [place] Family History Family Member Diagnosis Comments Start Date Stop Date Source Natural father No Known Problems [facility] Natural mother Stroke [facility] Social History Social Habit Start Date Stop Date Quantity Comments Source Exposure to Not sure [facility]-CoV-2 [facility] (event) Branch Alcohol intake 2022-02-05 2022-02-05 Lifetime [facility] 00:00:00 00:00:00 non-drinker (finding) Tobacco use and 2022-01-07 2022-01-07 Smokeless tobacco [facility] exposure 00:00:00 00:00:00 non-user Sex Ass[birth year] At [birth year] [facility] 00:00:00 00:00:00 Smoking Status Start Date Stop Date Source Unknown if ever smoked [facility] Never smoked [facility] Medications Ordered Filled Start Stop Current Ordering Indication Dosage Frequency Signature Comments Components Source Medication Medication Date Date Medication? Clinician (SIG) Name Name calcitrioL 2021-04 Yes .5ug Take 2 Metho di (ROCALTROL) 0-[address] 0.25 MCG 15:04: (0.5 mcg Hospi ta capsule 13 total) by l mouth. docusate 2021-04 Yes 250mg Take 1 Method i sodium 0-[address] (COLACE) 15:04: (250 mg Hospit a 250 MG 13 total) by l capsule mouth. gabapentin 2021-04 Yes 100mg Q.5D Take 1 Meth brooke (NEURONTIN) 0-[address] 100 mg 15:04: (100 mg Hospita capsule 13 total) by l mouth 2 (two) times a day. ergocalcife 2021-04 Yes Take by Met hodi rol, 0-[address] vitamin D2, 15:04: Hospit a (VITAMIN D2 13 l ORAL) vitamin B 2021-04 Yes QD Take by Metho di complex 0-[address] tablet 15:04: daily. Hospita extended 13 l release carvediloL 2021-04 Yes 25mg Q.5D Take 1 Metho di (COREG) 25 0-20 tablet (25 st MG tablet 15:04: mg total) Hos [place] 13 by mouth 2 l (two) times a day with meals. tadalafil 2021-04 Yes 40mg Take 2 Method i (ADCIRCA, 0-[address] CIALIS) 20 15:04: (40 mg Hospi ta mg tablet 13 total) by l mouth as needed. omeprazole 2021-04 Yes 20mg QD Take 1 Metho di (PriLOSEC) 0-[address] 20 MG 15:04: (20 mg Hospita capsule 13 total) by l mouth daily. calcitrioL Yes .5ug Take 2 Metho di (ROCALTROL) 01-[address] 0.25 MCG 17:25: (0.5 mcg Hospi ta capsule 59 total) by l mouth. docusate Yes 250mg Take 1 Method i sodium 01-[address] (COLACE) 17:25: (250 mg Hospit a 250 MG 59 total) by l capsule mouth. gabapentin Yes 100mg Q.5D Take 1 Meth brooke (NEURONTIN) 01-[address] 100 mg 17:25: (100 mg Hospita capsule 59 total) by l mouth 2 (two) times a day. ergocalcife Yes Take by Met kota puentes, 01-[address] vitamin D2, 17:25: Hospit a (VITAMIN D2 59 l ORAL) vitamin B Yes QD Take by Metho di complex 01-[address] tablet 17:25: daily. Hospita extended 59 l release traMADoL 2021- No [id number] 50mg Q6H Take 1 Metho di (Ultram) 50 01-0924 tablet (50 s t mg tablet 00:00: 04:59 mg total) Ho spita 00 :00 by mouth l every 6 (six) hours as needed for moderate pain for up to 2 days .acute pain. traMADoL 2021- [place] [id number] 50mg Q6H Take 1 Metho di (Ultram) 50 01-09-24 tablet (50 s t mg tablet 00:00: 04:59 mg total) Ho spita 00 :00 by mouth l every 6 (six) hours as needed for moderate pain for up to 2 days .acute pain. glipiZIDE 2021- No 2.5mg Take 1 Meth brooke (GLUCOTROL) 01-[address] 2.5 MG 24 09:22: 00:00 (2.5 mg Hosp antione hr tablet 49 :00 total) by l mouth. glipiZIDE 2021- No 2.5mg Take 1 Meth brooke (GLUCOTROL) 01-[address] 2.5 MG 24 09:22: 00:00 (2.5 mg Hosp antione hr tablet 49 :00 total) by l mouth. carvediloL 2021- No 25mg Take 1 Meth brooke (COREG) 25 01-07 tablet (25 st MG tablet 09:22: 00:00 mg total) Ho spita 37 :00 by mouth. l carvediloL 2021- No 25mg Take 1 Meth brooke (COREG) 25 01-07 tablet (25 st MG tablet 09:22: 00:00 mg total) Ho spita 37 :00 by mouth. l insulin 2022- Yes 25U QD Inject 25 Meth brooke GLARGINE 12-[address] (TOUJEO) 00:00: 04:59 under the Hos kendall 300 unit/mL 00 :00 skin l (1.5 mL) daily. insulin pen subcutaneou s pen insulin 2022- Yes 25U QD Inject 25 Meth brooke GLARGINE 12-[address] (TOUJEO) 00:00: 04:59 under the Hos [facility]all 300 unit/mL 00 :00 skin l (1.5 mL) daily. insulin pen subcutaneou s pen furosemide Yes 40mg Q.5D Take 1 Metho di (LASIX) 40 8-29 tablet (40 st mg tablet 00:00: mg total) Hos [place]all 00 by mouth 2 l (two) times a day. furosemide Yes 40mg Q.5D Take 1 Metho di (LASIX) 40 8-29 tablet (40 st mg tablet 00:00: mg total) Hos [place] 00 by mouth 2 l (two) times a day. albuterol Yes [id number] 2{puff} Inhale 2 Univers 90 1-22 Puffs ity of mcg/actuati 00:00: every 4 Kj as on inhaler 00 (four) Medical hours as Branch needed for Wheezing or Shortness of Breath. proMETHazin Yes [id number] 25mg Take 1 Univers e 25 mg 1-22 tablet by ity of tablet 00:00: mouth [place] 00 every 6 Medical (six) Branch hours as needed for Nausea and Vomiting (N/V). albuterol Yes [id number] 2{puff} Inhale 2 Univers 90 1-22 Puffs ity of mcg/actuati 00:00: every 4 Kj as on inhaler 00 (four) Medical hours as Branch needed for Wheezing or Shortness of Breath. proMETHazin Yes [id number] 25mg Take 1 Univers e 25 mg 1-22 tablet by ity of tablet 00:00: mouth [place] 00 every 6 Medical (six) Branch hours as needed for Nausea and Vomiting (N/V). amoxicillin 2021- No [id number] 1{tbl} Take 1 Univers -clavulanat 05-12-30 tablet [...] days. Indication s: COUGH amoxicillin 2021- No [id number] 1{tbl} Take 1 Univers -clavulanat 05-12-30 tablet [...] 14:46:00 134 mm[Hg] Univer sity of pressure [place] [facility] Diastolic blood 2021-05-12 14:46:00 66 mm[Hg] Unive rsity of pressure [facility] [place] Heart rate 2021-05-12 14:46:00 118 /min [facility] Body temperature 2021-05-12 14:46:00 37.33 Chey Univ ersity of [facility] [place] Respiratory rate 2021-05-12 14:46:00 22 /min Univ ersity of [facility] [place] Body weight 2021-05-12 14:46:00 102.059 kg [facility] Oxygen saturation in 2021-05-12 14:46:00 100 /min University Arterial blood by [facility] Pulse oximetry Branch Systolic blood 2022-02-07 20:01:00 182 mm[Hg] [facility] pressure Diastolic blood 2022-02-07 20:01:00 92 mm[Hg] [facility] pressure Heart rate 2022-02-07 20:01:00 89 /min [facility] Body temperature 2022-02-07 20:01:00 36.44 Chey [facility] Body height 2022-02-07 20:01:00 172.7 cm [facility] Body weight 2022-02-07 20:01:00 107.049 kg [facility] BMI 2022-02-07 20:01:00 35.88 kg/m2 [facility] Oxygen saturation in 2022-02-07 20:01:00 98 /min [facility] Arterial blood by Pulse oximetry Systolic blood 2022-01-09 21:30:00 147 mm[Hg] [facility] pressure Diastolic blood 2022-01-09 21:30:00 85 mm[Hg] [facility] pressure Heart rate 2022-01-09 21:30:00 92 /min [facility] Body temperature 2022-01-09 21:30:00 36.56 Chey [facility] Oxygen saturation in 2022-01-09 21:30:00 99 /min [facility] Arterial blood by Pulse oximetry Respiratory rate 2022-01-09 21:30:00 18 /min [facility] Body height 2022-01-09 13:28:00 172.7 cm [facility] Body weight 2022-01-09 13:28:00 103.874 kg [facility] BMI 2022-01-09 13:28:00 34.82 kg/m2 [facility] Procedures Procedure Date / Time Performing Clinician Source Performed POC GLUCOSE 2022-01-09 20:58:00 Dyllan Albert spital POC GLUCOSE 2022-01-09 20:02:00 Dyllan Albert spital OK AN ELECTIVE 2022-01-09 17:35:00 Carolyn Solorzano spital SUPRAGLOTTIC AIRWAY Donna CREATION, AV FISTULA 2022-01-09 17:26:00 Shahana Dyllan [facility] ESTIMATED GFR 2022-01-09 13:43:00 Dyllan Albert spital POC PANEL 2022-01-09 13:43:00 Dyllan Albert spital ABO AND RH CONFIRMATION 2022-01-09 13:40:00 Shahana [facility] BY PROTOCOL XR CHEST 2 VW 2022-01-07 15:20:51 Dyllan Albert spital ECG PRE/POST OP 2022-01-07 14:56:02 Dyllan Albert spital COVID-19 QUALITATIVE 2022-01-07 14:34:00 Shahana [facility] RT-PCR URINE CULTURE 2022-01-07 14:33:00 Dyllan Albert spital URINALYSIS SCREEN AND 2022-01-07 14:33:00 Shahana [facility] MICROSCOPY, WITH REFLEX TO CULTURE COMPREHENSIVE METABOLIC 2022-01-07 14:33:00 [facility] Ramon Gonzales. ESTIMATED GFR 2022-01-07 14:33:00 Catia Merino [facility] Ramon Coleman PARTIAL THROMBOPLASTIN 2022-01-07 14:05:00 Dyllan Albert [facility] TIME (PTT) PROTHROMBIN TIME WITH INR 2022-01-07 14:05:00 Dyllan Albert [facility] HC COMPLETE BLD COUNT 2022-01-07 14:05:00 Dyllan Albert [facility] W/AUTO DIFF TYPE AND SCREEN 2022-01-07 14:05:00 Dyllan Albert HEMOGLOBIN A1C 2022-01-07 14:05:00 Catia Merino HEPATITIS B SURFACE 2021-09-06 05:47:00 [facility] ANTIGEN Center HEPATITIS B SURFACE 2021-09-06 05:47:00 [facility] ANTIBODY Center HEPATITIS B CORE 2021-09-06 05:47:00 [facility] ANTIBODY, IGM Center XR CHEST 2 VW 2021-05-12 16:27:08 Turner Garcia [facility] RAPID INFLUENZA A/B 2021-05-12 15:13:00 Turner Garcia [facility] NOTICE OF PRIVACY 2021-05-12 14:43:20 Doctor Unassigned, [facility] PRACTICES [facility] CONSENT/REFUSAL FOR 2021-05-12 14:43:06 Doctor Unassigned, [facility] DIAGNOSIS AND TREATMENT [facility] Plan of Care Planned Activity Planned Date Details Comments Source Future Scheduled 2022-02-07 HEPATITIS B VACCINES [facility] Test 15:27:38 (1 of 3 - 3-dose series) [code = HEPATITIS B VACCINES (1 of 3 - 3-dose series)] Future Scheduled 2022-02-07 COVID-19 VACCINE (#1) [facility] Test 15:27:38 [code = COVID-19 VACCINE (#1)] Future Scheduled 2022-02-07 Pneumococcal Vaccine: [facility] Test 15:27:38 Pediatrics (0 to 5 Years) and At-Risk Patients (6 to 64 Years) (1 - PCV) [code = Pneumococcal Vaccine: Pediatrics (0 to 5 Years) and At-Risk Patients (6 to 64 Years) (1 - PCV)] Future Scheduled 2022-02-07 Hepatitis C screening [facility] Test 15:27:38 (procedure) [code = 902686700] Future Scheduled 2022-02-07 COLONOSCOPY SCREENING [facility] Test 15:27:38 [code = COLONOSCOPY SCREENING] Future Scheduled 2022-02-07 INFLUENZA VACCINE Method [facility] Test 15:27:38 [code = INFLUENZA VACCINE] Future Scheduled 2022-01-25 HEPATITIS B VACCINES [facility] Test 11:11:15 (1 of 3 - 3-dose series) [code = HEPATITIS B VACCINES (1 of 3 - 3-dose series)] Future Scheduled 2022-01-25 COVID-19 VACCINE (#1) [facility] Test 11:11:15 [code = COVID-19 VACCINE (#1)] Future Scheduled 2022-01-25 Pneumococcal Vaccine: [facility] Test 11:11:15 Pediatrics (0 to 5 Years) and At-Risk Patients (6 to 64 Years) (1 - PCV) [code = Pneumococcal Vaccine: Pediatrics (0 to 5 Years) and At-Risk Patients (6 to 64 Years) (1 - PCV)] Future Scheduled 2022-01-25 Hepatitis C screening [facility] Test 11:11:15 (procedure) [code = 837259180] Future Scheduled 2022-01-25 COLONOSCOPY SCREENING [facility] Test 11:11:15 [code = COLONOSCOPY SCREENING] Future Scheduled 2022-01-25 INFLUENZA VACCINE Method [facility] Test 11:11:15 [code = INFLUENZA VACCINE] Future Scheduled 2021-12-20 INFLUENZA VACCINE (#1) [facility] Test 00:00:00 [code = INFLUENZA Medical Ce nter VACCINE (#1)] Future Scheduled 2021-12-20 INFLUENZA VACCINE (#1) [facility] Test 00:00:00 [code = INFLUENZA Medical Ce nter VACCINE (#1)] Future Scheduled 2021-04-[address] [facility] Test 00:00:00 (12+) [code = [facility] DEPRESSION SCREENING (12+)] Future Scheduled 2021-04-[address] [facility] Test 00:00:00 (12+) [code = [facility] DEPRESSION SCREENING (12+)] Future Scheduled [address] [facility] Test 00:00:00 (procedure) [code = [facility] [id number]] Future Scheduled [address] [facility] Test 00:00:00 (procedure) [code = [facility] [id number]] Future Scheduled 1995 DTAP/TDAP/TD VACCINES [facility] Test 00:00:00 (1 - Tdap) [code = Medical C enter DTAP/TDAP/TD VACCINES (1 - Tdap)] Future Scheduled 1995 DTAP/TDAP/TD [facility]ACCINES [facility] Test 00:00:00 (1 - Tdap) [code = Medical C enter DTAP/TDAP/TD VACCINES (1 - Tdap)] Future Scheduled 1994 HEPATITIS C [facility]CRE[facility]ING [facility] Test 00:00:00 [code = HEPATITIS C Medical Center SCREENING] Future Scheduled 1994 HEPATITIS C [facility] Test 00:00:00 [code = HEPATITIS C Medical Center SCREENING] Future Scheduled 1981 COVID-19 VACCINE (#1[facility] Test 00:00:00 [code = COVID-[address] VACCINE (#1)] Future Scheduled 1976 COVID-19 VACCINE (#1[facility] Test 00:00:00 [code = COVID-[address] VACCINE (#1)] Future Scheduled [address] [facility] Test 00:00:00 (combo) [code = CT Medical C enter Colonography (combo)] Future Scheduled [address] [facility] Test 00:00:00 malignant neoplasm of Medica l Center colon (procedure) [code = 192374725] Future Scheduled [address] [facility] Test 00:00:00 (combo) [code = CT Medical C enter Colonography (combo)] Future Scheduled [address] [facility] Test 00:00:00 malignant neoplasm of Medica l Center colon (procedure) [code = 908033706] Future Scheduled [address] [facility] Test 00:00:00 malignant neoplasm of Medica l Center colon (procedure) [code = 921790507] Future Scheduled [address] [facility] Test 00:00:00 malignant neoplasm of Medica l Center colon (procedure) [code = 827711682] Future Scheduled [address] [facility] Test 00:00:00 malignant neoplasm of Medica l Center colon (procedure) [code = 999504644] Future Scheduled [address] [facility] Test 00:00:00 malignant neoplasm of Medica l Center colon (procedure) [code = 198181649] Future Scheduled 1975 Sigmoidoscopy [facility]oscopy] Medical Cente r Future Scheduled [address] [facility] 00[facility]00[facility] colon (procedure) [code = 259400338] Future Scheduled [address] [facility] Test 00:00:00 [facility] colon (procedure) [code = 558251324] Future Scheduled 1975 Sigmoidoscopy [facility]code [facility] Test 00:[facility] Sigmoidoscopy] Medical Chirage r Encounters Start End Encounter Admission Attending Care Care Encounter Source Date/Time Date/Time Type Type Clinicians Facility Department ID 2022-02-07 2022-02-07 Office [place], 1.2.840.1 [id number] Methodi 15:00:00 16:33:51 Visit Rochelle 30481.1.[address] [facility] 3.430.2.7 Hosp antione .3.515775 l .8 2022-02-07 2022-02-07 Travel 1.2.840.1 1.2.648.990 [id number] Methodi 00:00:00 00:00:[address] 3.430.2.7 0.2.7.3.698 Ho spita .3.797231 084.8 l .8 2022-02-07 2022-02-07 Outpatient [facility] [id number] Pearl 00:00:00 00:00:[address] 2022-02-01 2022-02-01 Telephone Gianna, 1.2.840.1 [id number] 21 [id number] Methodi 00:00:00 00:00:[address] 3.430.2.7 Hospit a .3.157368 l .8 2022-01-25 2022-01-25 Telephone Antoinette, 1.2.840.1 [id number] Methodi 00:00:00 00:00:[address] 3.430.2.7 Hospit a .3.634860 l .8 2022-01-25 2022-01-25 Telephone Antoinette 1.2.840.1 [id number] Methodi 00:00:00 00:00:[address] 3.430.2.7 Hospit a .3.940657 l .8 2022-01-01 2022-01-16 Office Shahana Dyllan 1.2.840.1 [id number] Methodi 09:00:00 04:17:[address] 3.430.2.7 Hospit a .3.434026 l .8 2022-01-01 2022-01-16 Office Dyllan Albert 1.2.840.1 [id number] Methodi 09:00:00 04:17:[address] 3.430.2.7 Hospit a .3.278958 l .8 2022-01-11 2022-01-11 Telephone Omer, 1.2.840.1 [id number] 21 [id number] Methodi 00:00:00 00:00:[address] 3.430.2.7 Hospit a .3.611027 l .8 2022-01-11 2022-01-11 Telephone Tello, 1.2.840.1 [id number] 21 [id number] Methodi 00:00:00 00:00:[address] 3.430.2.7 Hospit a .3.551951 l .8 2022-01-09 2022-01-09 Hospital Dyllan Albert 1.2.840.1 [id number] Methodi 07:17:00 17:05:[address] 3.430.2.7 Hospit a .3.555381 l .8 2022-01-09 2022-01-09 Anesthesia Carolyn Solorzano 1.2.840. 1 [id number] Methodi 12:26:00 15:04:00 Event Whitney Cano 97492.1.[address] 3.430.2.7 Hospit a .3.833330 l .8 2022-01-09 2022-01-09 Anesthesia Carolyn Solorzano 1.2.840. 1 [id number] Methodi 12:26:00 15:04:00 Event Whitney Cano 90262.1.[address] 3.430.2.7 Hospit a .3.919823 l .8 2022-01-09 2022-01-09 Surgery Dyllan Albert 1.2.840.1 [id number] Methodi 11:27:00 13:02:[address] 3.430.2.7 Hospit a .3.515416 l .8 2022-01-09 2022-01-09 Surgery Dyllan Albert 1.2.840.1 [id number] Methodi 11:27:00 13:02:[address] 3.430.2.7 Hospit a .3.545976 l .8 2022-01-09 2022-01-09 [facility] DYLLAN ALBERT [facility] 021 [id number] Pearl 00:00:00 00:00:00 Encounter [address] 2022-01-07 2022-01-07 [facility] Dyllan Albert 1.2.840.1 [id number] Methodi 10:05:52 23:59:[address] 3.430.2.7 Hospit a .3.466399 l .8 2022-01-07 2022-01-07 Pre-Admiss Dyllan Albert 1.2.840.1 [id number] 21 [id number] Methodi 09:00:00 10:00:[address] Testing 3.430.2.7 Hospit a .3.367471 l .8 2022-01-07 2022-01-07 Pre-Admiss Dyllan Albert 1.2.840.1 [id number] Methodi 09:00:00 10:00:[address] Testing 3.430.2.7 Hospit a .3.317222 l .8 2022-01-07 2022-01-07 Travel 1.2.840.1 1.2.973.403 1223 [id number] Methodi 00:00:00 00:00:[address] 3.430.2.7 0.2.7.3.698 Ho spita .3.691995 084.8 l .8 2022-01-07 2022-01-07 Travel 1.2.840.1 1.2.785.021 2978 [id number] Methodi 00:00:00 00:00:[address] 3.430.2.7 0.2.7.3.698 Ho spita .3.313925 084.8 l .8 2022-01-07 2022-01-07 [facility] DYLLAN ALBERT 1.2.840.1 [id number] Pearl 00:00:00 00:00:00 Encounter 40749.1.[address] .3.200136 .8 2022-01-01 2022-01-01 Prep for Curry, 1.2.840.1 [id number] 2 [id number] Methodi 00:00:00 00:00:00 Surgery April [address]207.1.[address] 3.430.2.7 Hospit a .3.355502 l .8 2022-01-01 2022-01-01 Prep for Curry, 1.2.840.1 [id number] 2 [id number] Methodi 00:00:00 00:00:00 Surgery April [address].1.[address] 3.430.2.7 Hospit a .3.176653 l .8 2021-12-26 2021-12-26 Girma Tello 1.2.840.1 [id number] 21 [id number] Methodi 00:00:00 00:00:[address] 3.430.2.7 Hospit a .3.219021 l .8 2021-12-26 2021-12-26 Telephone Omer, 1.2.840.1 [id number] Methodi 00:00:00 00:00:[address] 3.430.2.7 Hospit a .3.422987 l .8 2021-12-25 2021-12-25 Telephone Antoinette, 1.2.840.1 [id number] Methodi 00:00:00 00:00:[address] 3.430.2.7 Hospit a .3.256801 l .8 2021-12-25 2021-12-25 Telephone Antoinette, 1.2.840.1 [id number] Methodi 00:00:00 00:00:[address] 3.430.2.7 Hospit a .3.082904 l .8 2021-09-06 2021-09-06 Lab [facility] [id number] 00:00:00 00:00:00 [facility] 2021-09-06 2021-09-06 Lab [facility] [id number] 00:00:00 00:00:00 [facility] 2021-05-13 2021-05-13 Letter SALBADOR Cabrera 1.2.840.114 [id number] Univers 00:00:00 00:00:00 (Out) Desi CONRAD 350.1.13.10 rock [facility] 4.2.7.2.686 Kj as [id number] [address] 2021-05-12 2021-05-12 Emergency Roma GARCIA [facility] ERT [id number] Univers 08:47:00 11:17:00 TURNER rodriguez [facility] 2021-05-12 2021-05-12 Emergency Gildardo [facility] 1.2.407.570 [id number] Univers 08:47:00 11:17:00 Turner MARIE 350.1.13.10 itsteph iván [facility] 4.2.7.2.686 [facility] [id number] [facility] 084 Branch Results Test Description Test Time Test Comments Results Result Comments Source POC glucose 2022-01-09 21:00:00 Test Item Value Reference Range Interpretation Comme nts POC glucose (test code = 214 mg/dL 65-99 H Ope rator Name: Joshua Beltran [id number]) ID: [id number] hartable: RN Notified Lab Interpretation (test code = Abnormal 79828-0) [facility] [id number] 21:00:00 Test Item Value Reference Range Interpretation Comments POC glucose (test code = 214 mg/dL 65-99 H Ope rator Name: [id number]) Joshua Jennifer haywood ID: [id number] able: RN Notified Lab Interpretation (test Abnormal code = 57932-3) [facility] [id number] 13:44:01 Test Item Value Reference Range Interpretation Comments POC sodium (test code = 135 mmol/L 955-621 0312-0) POC potassium (test 4.5 mmol/L 3.5-5 code = 6298-4) POC glucose (test code 280 mg/dL 65-99 H = 2339-0) POC creatinine (test 6.0 mg/dl 0.7-1.2 H Operato r Name: code = 86003-5) Israel Roldan ID : [id number] POC hemoglobin (test 11.9 g/dL 14-18 L code = 718-7) POC hematocrit (test 35 % 41-51 L code = 4544-3) Lab Interpretation Abnormal (test code = 76403-3) [facility] [id number] 13:44:01 Test Item Value Reference Range Interpretation Comments POC sodium (test code = 135 mmol/L 824-225 2540-0) POC potassium (test 4.5 mmol/L 3.5-5.0 code = 6298-4) POC glucose (test code 280 mg/dL 65-99 H = 2339-0) POC creatinine (test 6.0 mg/dl 0.7-1.2 H Operato r Name: code = 87233-0) Israel Roldan ID : [id number] POC hemoglobin (test 11.9 g/dL 14.0-18.0 L code = 718-7) POC hematocrit (test 35 % 41-51 L code = 4544-3) Lab Interpretation Abnormal (test code = 93182-2) [facility] [id number] 13:44:00 Test Item Value Reference Range Interpretation Comments Estimated GFR (test mL/min/1.73 m2 A Caterg ory Units code = 28729-8) Interpretati onG1 >=90 Normal or highG 2 60-89 Mildly decrease dG3a 45-59 Mildly to moderately decr pqlacS2e 30-44 Moderatel y to severely decrea sedG4 15-29 Severely decreasedG5 <15 Kidney failureThe eGFR was calculated usin g the Chronic Kidney Disease Epidemiology Collaboration ( CKD-EPI) equation. Interpretation is based on recommendati ons of the [facility] Disease Outcome s Quality Initiat marshall ([place]-KDOQI) pub lished in 2013. Lab Interpretation Abnormal (test code = 63018-1) [facility] [id number] 13:44:00 Test Item Value Reference Range Interpretation Comments Estimated GFR (test mL/min/1.73 m2 A Caterg ory Units code = 95429-5) Interpretati onG1 >=90 Normal or highG 2 60-89 Mildly decrease dG3a 45-59 Mildly to moderately decr alxpkC5f 30-44 Moderatel y to severely decrea sedG4 15-29 Severely decreasedG5 <15 Kidney failureThe eGFR was calculated usin g the Chronic Kidney Disease Epidemiology Collaboration ( CKD-EPI) equation. Interpretation is based on recommendati ons of the [facility] Disease Outcome s Quality Initiat marshall (NK-KDOQI) pub lished in 2013. Lab Interpretation Abnormal (test code = 65375-1) [facility] [Presence] in Respiratory specimen by YESENIA with probe [id number] 17:48:52 Test Item Value Reference Range Interpretation Comments SARS-CoV-2 (COVID-19) RNA Not detected [Presence] in Respiratory specimen by YESENIA with probe detection (test code = 21869-1) Whether patient is employed in a Unknown healthcare setting (test code = 12495-2) Whether the patient has symptoms Unknown related to condition of interest (test code = 97775-4) Whether the patient was Unknown hospitalized for condition of interest (test code = 59763-1) Whether the patient was admitted Unknown to intensive care unit (ICU) for condition of interest (test code = 25581-7) Whether patient resides in a Unknown congregate care setting (test code = 13602-6) status (test code = Unknown 64771-0) Date and time of symptom onset Unknown (test code = 47958-2) [facility] Pre/Post [id number] 17:20:24 Test Item Value Reference Range Interpretation Comments Ventricular rate (test code = 253) Atrial rate (test code = 255) OK interval (test code = 266) QRSD interval (test code = 260) QT interval (test code = 264) QTC interval (test code = 265) P axis 1 (test code = 267) QRS axis 1 (test code = 268) T wave axis (test code = 270) EKG impression (test Sinus rhythm with code = 273) occasional premature ventricular complexes-Left axis deviation-Abnormal ECG-No previous ECGs available- [facility] Pre/Post [id number] 17:20:24 Test Item Value Reference Range Interpretation Comments Ventricular rate (test code = 253) Atrial rate (test code = 255) OK interval (test code = 266) QRSD interval (test code = 260) QT interval (test code = 264) QTC interval (test code = 265) P axis 1 (test code = 267) QRS axis 1 (test code = 268) T wave axis (test code = 270) EKG impression (test Sinus rhythm with code = 273) occasional premature ventricular complexes-Left axis deviation-Abnormal ECG-No previous ECGs available- [facility] 15:46:00 Test Item Value Reference Range Interpretation Comments Urine culture (test SEE COMMENT Bacteriu lashell screen code = 6040785) negative. [facility] [id number] 15:46:00 Test Item Value Reference Range Interpretation Comments Urine culture (test SEE COMMENT Bacteriu lashell screen code = 5300315) negative. [facility] [id number] 22:01:34 Test Item Value Reference Range Interpretation Comments Hep B S Ab (test code <8.0 See_Comment [Auto mated = 72823-6) message] The system which generated this result transmit brad reference range : <8.0 mIU/mL. Th e reference range was not used to interpret this result as normal/abnormal . TALIB (test code = TALIB) [employer]en [employer]ic ID - DB Lab Interpretation Normal (test code = 30800-0) [facility] [id number] 22:01:34 Test Item Value Reference Range Interpretation Comments Hep B S Ab (test code <8.0 See_Comment [Auto mated = 97618-3) message] The system which generated this result transmit brad reference range : <8.0 mIU/mL. Th e reference range was not used to interpret this result as normal/abnormal . TALIB (test code = TALIB) [employer] Mechanic ID - DB Lab Interpretation Normal (test code = 00538-9) [facility] B SURFACE [id number] 22:01:34 Test Item Value Reference Range Interpretation Comments HEPATITIS B SURFACE ANTIBODY < mIU/mL <8.0 (BEAKER) (test code = 647) [employer] ID - DBHepatitis B core antibody, [id number] 21:52:25 Test Item Value Reference Range Interpretation Comments Hep B C IgM (test code = Nonreactive Nonreactive 99699-2) TALIB (test code = TALIB) [employer]en [employer]ic ID - DB Lab Interpretation (test Normal code = 43545-4) [facility], [id number] 21:52:25 Test Item Value Reference Range Interpretation Comments Hep B C IgM (test code = Nonreactive Nonreactive 87474-6) TALIB (test code = TALIB) Wooden Bar[employer] Mechanic ID - DB Lab Interpretation (test Normal code = 80378-6) [facility]TIBODY, [id number] 21:52:25 Test Item Value Reference Range Interpretation Comments HEPATITIS B CORE IGM ANTIBODY Nonreactive Nonreactive (BEAKER) (test code = 645) [employer] ID - DBHepatitis B surface [id number] 21:52:19 Test Item Value Reference Range Interpretation Comments Hepatitis B surface Nonreactive Nonreactive antigen (test code = 5195-3) TALIB (test code = TALIB) Specimen is considered negative for HBsAg. Lab Interpretation (test Normal code = 30888-8) [facility] B surface [id number] 21:52:19 Test Item Value Reference Range Interpretation Comments Hepatitis B surface Nonreactive Nonreactive antigen (test code = 5195-3) TALIB (test code = TALIB) Specimen is considered negative for HBsAg. Lab Interpretation (test Normal code = 95453-6) [facility] B SURFACE [id number] 21:52:19 Test Item Value Reference Range Interpretation Comments HEPATITIS B SURFACE ANTIGEN (2) Nonreactive Nonreactive (BEAKER) (test code = 2585) Specimen is considered negative for HBsAg.
[2022-02-08] MEDS ORDERED: HYDROCODONE/APAP 5/325 MG TAB ONE (08:41)
[2022-02-08] MEDS ORDERED: CLINDAMYCIN IV 150 MG/ML (6 mL) VIAL IM ONE (09:00)
--- NOTE | 2022-02-08 09:14 | ER ---
Nurse's Notes [facility] Name: Chava Pate Age: 46 yrs Sex: Male : 1975 Arrival Date: 02/08/2022 Time: 08:10 Bed 8 Private MD: Ramon Romo T Diagnosis: Dental caries, unspecified Presentation: 02/08 08:18 Chief complaint: Patient states: I think i have an abscessed tooth, the last few days iw I've had a headache across top head, has pain to top teeth on both sides , my right eye is hurting me too. Coronavirus screen: At this time, the client does not indicate any symptoms associated with coronavirus-19. Ebola Screen: Patient negative for fever greater than or equal to 101.5 degrees Fahrenheit, and additional compatible Ebola Virus Disease symptoms Patient denies exposure to infectious person. Patient denies travel to an Ebola-affected area in the 21 days before illness onset. No symptoms or risks identified at this time. Initial Sepsis Screen: Does the patient meet any 2 criteria? No. Patient's initial sepsis screen is negative. Does the patient have a suspected source of infection? No. Patient's initial sepsis screen is negative. Risk Assessment: Do you want to hurt yourself or someone else? Patient reports no desire to harm self or others. Onset of symptoms was February 05, 2022. 08:18 Method Of Arrival: Ambulatory iw 08:18 Acuity: EDINSON 3 iw Historical: - Allergies: 08:20 No Known Allergies; iw - Home Meds: 08:20 gabapentin Oral [Active]; iw - PMHx: 08:20 Diabetes - NIDDM; Hypertensive disorder; kidney disease; PERIPHERAL NEUROPATHY; iw - Immunization history:: Adult Immunizations up to date. - Social history:: Smoking status: Patient denies any tobacco usage or history of. Screenin:22 Abuse screen: Denies threats or abuse. Nutritional screening: No deficits noted. ll1 Tuberculosis screening: No symptoms or risk factors identified. 09:26 Fall Risk Total Pruitt Fall Scale indicates No Risk (0-24 pts). ll1 Assessment: 08:21 General: Appears uncomfortable, Behavior is cooperative, appropriate for age. Pain: ll1 Complains of pain in head Quality of pain is described as aching. Neuro: Reports headache. EENT: Reports pain B upper jaw tooth pains. 09:20 Reassessment: No changes from previously documented assessment. Patient and/or family ll1 updated on plan of care and expected duration. Pain level reassessed. Patient is alert, oriented x 3, equal unlabored respirations, skin warm/dry/pink. Patient states symptoms have not improved. Vital Signs: 08:18 BP 180 / 95; Pulse 88; Resp 16; Temp 97.4; Pulse Ox 98% on R/A; iw 09:25 BP 169 / 89; Pulse 82; Resp 16; Pulse Ox 98% ; Pain 10/10; ll1 ED Course: 08:10 Patient arrived in ED. am2 08:10 Ramon Romo MD is Private Physician. am2 08:16 [facility]od Camargo [facility] 08:16 Elijah Ruiz MD is Attending Physician. [facility] 08:20 Triage completed. iw 08:20 Arm band placed on. iw 08:21 Gretta Contreras RN is Primary Nurse. ll1 09:13 Ramon Romo MD is Referral Physician. [facility] 09:25 No provider procedures requiring assistance completed. Patient did not have IV access ll1 during this emergency room visit. 09:26 Patient has correct armband on for positive identification. Bed in low position. Call ll1 light in reach. Side rails up X 1. Cardiac monitoring not applicable on this patient. Administered Medications: 08:46 Drug: HYDROcodone-acetaminophen 5 mg-325 mg 1 tabs {Note: rass 0, pain 10/10.} Route: ll1 PO; 09:25 Follow up: Response: No adverse reaction; Pain is unchanged, physician notified; RASS: ll1 Alert and Calm (0) 09:04 Drug: Clindamycin 600 mg Route: IM; Site: left gluteus; ll1 09:25 Follow up: Response: No adverse reaction ll1 Medication: 08:23 VIS not applicable for this client. ll1 Outcome: 09:14 Discharge ordered by . [facility] 09:26 Discharged to home ambulatory. ll1 09:26 Condition: stable 09:26 Discharge instructions given to patient, Instructed on discharge instructions, follow up and referral plans. medication usage, Demonstrated understanding of instructions, follow-up care, medications, Prescriptions given X 2. 09:26 Patient left the ED. ll1 Signatures: Pramod Camargo PA PA jmm Williams, Irene, RN RN iw Radha Medrano amGretta Holcomb, RN RN ll1
--- NOTE | 2022-02-08 09:14 | EDPHYS ---
Physician Documentation [facility] Name: Chava Pate Age: 46 yrs Sex: Male : 1975 Arrival Date: 02/08/2022 Time: 08:10 Bed 8 Private MD: Ramon Romo T ED Physician Elijah Ruiz HPI: 02/08 08:25 This 46 yrs old Male presents to ER via Ambulatory with complaints of jmm Toothache, Headache, Eye Pain. 08:25 The patient presents with pain, swelling. Onset: The symptoms/episode began/occurred jmm gradually, 5 day(s) ago. Duration: The symptoms are continuous. Modifying factors: The symptoms are alleviated by nothing, the symptoms are aggravated by nothing. This is a 46 year old male with a history of DM, CKD, htn that presents to the ED with complaints of 5 days of dental pain with pain radiating into the right eye. Patient states he has a dental appt scheduled but is not currently taking abx. Patient denies fever. . Historical: - Allergies: 08:20 No Known Allergies; iw - Home Meds: 08:20 gabapentin Oral [Active]; iw - PMHx: 08:20 Diabetes - NIDDM; Hypertensive disorder; kidney disease; PERIPHERAL NEUROPATHY; iw - Immunization history:: Adult Immunizations up to date. - Social history:: Smoking status: Patient denies any tobacco usage or history of. ROS: 08:25 Constitutional: Negative for fever, chills, and weight loss, Cardiovascular: Negative jmm for chest pain, palpitations, and edema, Respiratory: Negative for shortness of breath, cough, wheezing, and pleuritic chest pain. 08:25 ENT: Positive for dental pain. 08:25 All other systems are negative. Exam: 08:25 Constitutional: This is a well developed, well nourished patient who is awake, alert, jmm and in no acute distress. Head/Face: atraumatic. 08:25 Neck: Trachea midline, Supple Chest/axilla: Normal chest wall appearance and motion. Cardiovascular: Regular rate and rhythm. No edema appreciated Respiratory: Normal respirations, no respiratory distress appreciated Abdomen/GI: Non distended Back: Normal ROM Skin: General appearance color normal MS/ Extremity: Moves all extremities, no obvious deformities appreciated, no edema noted to the lower extremities Neuro: Awake and alert Psych: Behavior is normal, Mood is normal, Patient is cooperative and pleasant 08:25 ENT: Dental exam: dental caries, that is moderate, diffusely, gum swelling, diffusely. Vital Signs: 08:18 BP 180 / 95; Pulse 88; Resp 16; Temp 97.4; Pulse Ox 98% on R/A; iw 09:25 BP 169 / 89; Pulse 82; Resp 16; Pulse Ox 98% ; Pain 10/10; ll1 MDM: 08:25 Patient medically screened. dennis 09:12 Data reviewed: vital signs, nurses notes. Counseling: I had a detailed discussion with [facility] the patient and/or guardian regarding: the historical points, exam findings, and any diagnostic results supporting the discharge/admit diagnosis, the need for outpatient follow up, to return to the emergency department if symptoms worsen or persist or if there are any questions or concerns that arise at home. ED course: Patient is alert and non toxic in appearance. I do not suspect ludwigs, sepsis. Patient will follow up with dentist. Patient otherwise given strict return precautions. Patient understood and agrees with the plan of care .. Administered Medications: 08:46 Drug: HYDROcodone-acetaminophen 5 mg-325 mg 1 tabs {Note: rass 0, pain 10/10.} Route: ll1 PO; 09:25 Follow up: Response: No adverse reaction; Pain is unchanged, physician notified; RASS: ll1 Alert and Calm (0) 09:04 Drug: Clindamycin 600 mg Route: IM; Site: left gluteus; ll1 09:25 Follow up: Response: No adverse reaction ll1 Disposition Summary: 02/08/22 09:14 Discharge Ordered Location: Home [facility] Condition: Stable [facility] Diagnosis - Dental caries, unspecified [facility] Followup: [facility] - With: Ramon Romo MD - When: 1 - 2 days - Reason: Recheck today's complaints, Continuance of care, Re-evaluation by your physician Discharge Instructions: - Discharge Summary Sheet [facility] - Dental Caries, Adult [facility] Forms: - Medication Reconciliation Form [facility] - Thank You Letter [facility] - Antibiotic Education [facility] - Prescription Opioid Use [facility] Prescriptions: - Clindamycin HCl 300 mg Oral Capsule - take 1 capsule by ORAL route every 6 hours for 10 days; 40 capsule; Refills: 0, [facility] Product Selection Permitted - orphenadrine citrate 100 mg Oral Tablet Sustained Release - take 1 tablet by ORAL route 2 times per day As needed; 20 tablet; Refills: 0, yessy Product Selection Permitted Addendum: 02/12/2022 04:04 Co-signature as Attending Physician, Elijah Ruiz MD I agree with the assessment and c [place] plan of care. Signatures: Elijah Ruiz MD MD cha Mickail, Joel, PA PA jmm Williams, Irene, RN RN iw Gretta Contreras RN RN ll1
[2022-02-08 09:31] VITALS: TEMP 97.4; O2SAT 98
[2022-02-08 09:32] VITALS: BP 169/89
== END 2022-02-08 09:26 | disposition home or self-care (01) ==
LOC: ER 08:07
DX: K02.9 Dental caries, unspecified (principal); E11.9 Type 2 diabetes mellitus without complications; I10 Essential (primary) hypertension; N28.9 Disorder of kidney and ureter, unspecified
CPT/HCPCS: 96372; 99283

== ENCOUNTER 2022-02-12 11:54 | Inpatient (IN) | payer BC ==
--- OUTSIDE RECORDS SUMMARY | 2022-02-12 11:59 | XMS REPORT | Continuity of Care Document ---
:1975 Author Organization [facility] t Address [address] [place] [address] Care Team Providers Name Role Phone DEYRITA JEFFREY Primary Care Physician Unavailable Gorge OLMOS-C, Rochelle Gomez Attending Clinician [phone] Tabatha Katz MA Attending Clinician Unavailable Antoinette MEDRANO, April Attending Clinician Unavailable Dyllan Albert MD Attending Clinician Kamilla Tello MA Attending Clinician Unavailable Rashad HODGES, Carolyn Thompson Attending Clinician [phone] Whitney Dow Attending Clinician Deborah MEDRANO, Desi [...] Added automatic ally from request for surgery [id number] No known No known Disease Unive rs active active ity of problems problems [facility] Allergies, Adverse Reactions, Alerts Allergy Allergy Status Severity Reaction(s) Onset Inactive Treating Comm ents Source Name Type Date Date Clinician NO KNOWN Drug Active Univers ALLERGIE Class ity of S [facility] Family History Family Member Diagnosis Comments Start Date Stop Date Source Natural father No Known Problems [facility] Natural mother Stroke [facility] Social History Social Habit Start Date Stop Date Quantity Comments Source Exposure to Not sure [facility]-CoV-2 [facility] (event) Branch Alcohol intake 2022-02-05 2022-02-05 Lifetime [facility] 00:00:00 00:00:00 non-drinker (finding) Tobacco use and 2022-01-07 2022-01-07 Smokeless tobacco [facility] exposure 00:00:00 00:00:00 non-user Sex Ass[birth year] At [birth year] [facility] 00:00:00 00:00:00 Smoking Status Start Date Stop Date Source Unknown if ever smoked [facility] Never smoked tobacco [facility] ospital Medications Ordered Filled Start Stop Current [...] 13 total) by l mouth daily. calcitrioL 2021-04 Yes .5ug Take 2 Metho [...] Yes .5ug Take 2 Metho di (ROCALTROL) 9-[address] 0.25 MCG 17:25: (0.5 mcg [...] a day. ergocalcife Yes Take by Met hodi rol, 01-[address] vitamin D2, 17:25: Hospit a (VITAMIN D2 59 l ORAL) vitamin B Yes QD Take by Metho di complex 01-[address] tablet 17:25: daily. Hospita extended 59 l release traMADoL 2021- No [id number] 50mg Q6H Take 1 Metho di (Ultram) 50 01-0924 tablet (50 s t mg tablet 00:00: 04:59 mg total) Ho spita 00 :00 by mouth l every 6 (six) hours as needed for moderate pain for up to 2 days .acute pain. traMADoL 2021- [place] [id number] 50mg Q6H Take 1 Metho di (Ultram) 50 01-0924 tablet (50 s t mg tablet 00:00: 04:59 mg total) Ho spita 00 :00 by mouth l every 6 (six) hours as needed for moderate pain for up to 2 days .acute pain. traMADoL 2021- [place] [id number] 50mg Q6H Take 1 Metho di (Ultram) [...] 25 Meth brooke GLARGINE 12-[address] (UJEO) 00:00: 04:59 under the Hos k[facility] 300 [...] 2 l (two) times a day. furosemide 0 Yes 40mg Q.5D Take 1 Metho di (LASIX) 40 8-29 tablet (40 st mg tablet 00:00: mg total) Hos [place] 00 by mouth 2 l (two) times a day. albuterol Yes [id number] 2{puff} Inhale 2 Univers 90 1-22 Puffs ity of mcg/actuati 00:00: every 4 Kj as on inhaler 00 (four) Medical hours as Branch needed for Wheezing or Shortness of Breath. proMETHazin Yes [id number] 25mg Take 1 Univers e 25 mg 1-22 tablet by ity of tablet 00:00: mouth [place] 00 every 6 Medical (six) Branch hours as needed for Nausea and Vomiting (N/V). albuterol Yes [id number] 2{puff} Inhale 2 Univers 90 1-22 Puffs ity of mcg/actuati 00:00: every 4 Kj as on inhaler 00 (four) Medical hours as Branch needed for Wheezing or Shortness of Breath. proMETHazin Yes [id number] 25mg Take 1 Univers e 25 mg 1-22 tablet by ity of tablet 00:00: mouth [place] 00 every 6 Medical (six) Branch hours as needed for Nausea and Vomiting (N/V). amoxicillin 2021- No [id number] 1{tbl} Take 1 Univers -clavulanat 05-12-30 tablet [...] to 7 days. Indication s: COUGH amoxicillin No [id number] 1{tbl} Take 1 Univers -clavulanat 05-12 tablet by it y of e 875-125 00:00: 05:59 mouth [place] mg per 00 :00 every 12 Medical tablet (twelve) Branch hours for 7 days. codeine-gua No 10mL Take 10 mL Univers ifenesin 05-12 by mouth ity of 10-100 mg/5 00:00: 05:59 every 6 [place] mL oral 00 :00 (six) Medical solution hours as Branch needed for Cough for up to 7 days. Indication s: COUGH Vital Signs Vital Name Observation Time Observation Value Comments Source Systolic blood 2021-05-12 14:46:00 134 mm[Hg] Univer [facility] Diastolic blood 2021-05-12 14:46:00 66 mm[Hg] Unive [facility] Heart rate 2021-05-12 14:46:00 118 /min [facility] Body temperature 2021-05-12 14:46:00 37.33 Chey [facility] Respiratory rate 2021-05-12 14:46:00 22 /min [facility] Body weight 2021-05-12 14:46:00 102.059 kg [facility] Oxygen saturation in 2021-05-12 14:46:00 100 /min [facility] Arterial blood by [facility] Pulse oximetry Branch Systolic blood 2022-02-07 20:01:00 182 mm[Hg] Method [facility] pressure Diastolic blood 2022-02-07 20:01:00 92 mm[Hg] [facility] pressure Heart rate 2022-02-07 20:01:00 89 /min [facility] Body temperature 2022-02-07 20:01:00 36.44 [facility]y [facility] Body height 2022-02-07 20:01:00 172.7 cm [facility] Body weight 2022-02-07 20:01:00 107.049 kg [facility] BMI 2022-02-07 20:01:00 35.88 kg/m2 [facility] Oxygen saturation in 2022-02-07 20:01:00 98 /min [facility] Arterial blood by Pulse oximetry Systolic blood 2022-01-09 21:30:00 147 mm[Hg] [facility] pressure Diastolic blood 2022-01-09 21:30:00 85 mm[Hg] [facility] pressure Heart rate 2022-01-09 21:30:00 92 /min [facility] Body temperature 2022-01-09 21:30:00 36.56 [facility]y [facility] Oxygen saturation in 2022-01-09 21:30:00 99 /min [facility] Arterial blood by Pulse oximetry Respiratory rate 2022-01-09 21:30:00 18 /min [facility] Body height 2022-01-09 13:28:00 172.7 cm [facility] Body weight 2022-01-09 13:28:00 103.874 kg [facility] BMI 2022-01-09 13:28:00 34.82 kg/m2 [facility] Procedures Procedure Date / Time Performing Clinician Source Performed POC GLUCOSE 2022-01-09 20:58:00 Dyllan Albert spital POC GLUCOSE 2022-01-09 20:02:00 Dyllan Albert spital NC AN ELECTIVE 2022-01-09 17:35:00 Carolyn Solorzano spital SUPRAGLOTTIC AIRWAY Donna CREATION, AV FISTULA 2022-01-09 17:26:00 Dyllan Albert [facility] ESTIMATED GFR 2022-01-09 13:43:00 Dyllan Albert spital POC PANEL 2022-01-09 13:43:00 Dyllan Albert spital ABO AND RH CONFIRMATION 2022-01-09 13:40:00 Shahana [facility] BY PROTOCOL XR CHEST 2 VW 2022-01-07 15:20:51 Dyllan Albert spital ECG PRE/POST OP 2022-01-07 14:56:02 Dyllan Albert spital COVID-19 QUALITATIVE 2022-01-07 14:34:00 [facility] 2022-01-07 14:33:00 Dyllan Albert spital URINALYSIS SCREEN AND 2022-01-07 14:33:00 Dyllan Albert [facility] MICROSCOPY, WITH REFLEX TO CULTURE COMPREHENSIVE METABOLIC 2022-01-07 14:33:00 Derek Merino [facility] PANEL Ramon Coleman ESTIMATED GFR 2022-01-07 14:33:00 Catia Merino susie Coleman PARTIAL THROMBOPLASTIN 2022-01-07 14:05:00 Dyllan Albert [facility] TIME (PTT) PROTHROMBIN TIME WITH INR 2022-01-07 14:05:00 Dyllan Albert [facility] HC COMPLETE BLD COUNT 2022-01-07 14:05:00 [facility]AUT[facility] DIFF TYPE AND SCREEN 2022-01-07 14:05:00 Dyllan Albert spijanice HEMOGLOBIN A1C 2022-01-07 14:05:00 [facility]FACE 2021-09-06 05:47:00 [facility] ANTIGEN Center HEPATITIS B SURFACE 2021-09-06 05:47:00 [facility] ANTIBODY Center HEPATITIS B CORE 2021-09-06 05:47:00 [facility] ANTIBODY, IGM Center XR CHEST 2 VW 2021-05-12 16:27:08 Turner Garcia [facility] RAPID INFLUENZA A/B 2021-05-12 15:13:00 Turner Garcia [facility] NOTICE OF PRIVACY 2021-05-12 14:43:20 Doctor Unassigned, [facility] PRACTICES [facility] CONSENT/REFUSAL FOR 2021-05-12 14:43:06 Doctor [place], [facility] DIAGNOSIS AND TREATMENT [facility] Plan of Care Planned Activity Planned Date Details Comments Source Future Scheduled 2022-02-12 HEPATITIS B VACCINES [facility] Test 07:56:41 (1 of 3 - 3-dose series) [code = HEPATITIS B VACCINES (1 of 3 - 3-dose series)] Future Scheduled 2022-02-12 COVID-19 VACCINE (#1) [facility] Test 07:56:41 [code = COVID-19 VACCINE (#1)] Future Scheduled 2022-02-12 Pneumococcal Vaccine: [facility] Test 07:56:41 Pediatrics (0 to 5 Years) and At-Risk Patients (6 to 64 Years) (1 - PCV) [code = Pneumococcal Vaccine: Pediatrics (0 to 5 Years) and At-Risk Patients (6 to 64 Years) (1 - PCV)] Future Scheduled 2022-02-12 Hepatitis C screening [facility] Test 07:56:41 (procedure) [code = 456259414] Future Scheduled 2022-02-12 COLONOSCOPY SCREENING [facility] Test 07:56:41 [code = COLONOSCOPY SCREENING] Future Scheduled 2022-02-12 INFLUENZA VACCINE Method [facility] Test 07:56:41 [code = INFLUENZA VACCINE] Future Scheduled 2022-02-07 HEPATITIS B VACCINES [facility] Test 15:27:38 (1 of 3 - 3-dose series) [code = HEPATITIS B VACCINES (1 of 3 - 3-dose series)] Future Scheduled 2022-02-07 COVID-19 VACCINE (#1) [facility] Test 15:27:38 [code = COVID-19 VACCINE (#1)] Future Scheduled 2022-02-07 Pneumococcal Vaccine: [facility] Test 15:27:38 Pediatrics (0 to 5 Years) and At-Risk Patients (6 to 64 Years) (1 - PCV) [code = Pneumococcal Vaccine: Pediatrics (0 to 5 Years) and At-Risk Patients (6 to 64 Years) (1 - PCV)] Future Scheduled 2022-02-07 Hepatitis C screening [facility] Test 15:27:38 (procedure) [code = 394299530] Future Scheduled 2022-02-07 COLONOSCOPY SCREENING [facility] Test 15:27:38 [code = COLONOSCOPY SCREENING] Future Scheduled 2022-02-07 INFLUENZA VACCINE Method [facility] Test 15:27:38 [code = INFLUENZA VACCINE] Future Scheduled 2022-01-25 HEPATITIS B VACCINES [facility] Test 11:11:15 (1 of 3 - 3-dose series) [code = HEPATITIS B VACCINES (1 of 3 - 3-dose series)] Future Scheduled 2022-01-25 COVID-19 VACCINE (#1) [facility] Test 11:11:15 [code = COVID-19 VACCINE (#1)] Future Scheduled 2022-01-25 Pneumococcal Vaccine: [facility] Test 11:11:15 Pediatrics (0 to 5 Years) and At-Risk Patients (6 to 64 Years) (1 - PCV) [code = Pneumococcal Vaccine: Pediatrics (0 to 5 Years) and At-Risk Patients (6 to 64 Years) (1 - PCV)] Future Scheduled 2022-01-25 Hepatitis C screening [facility] Test 11:11:15 (procedure) [code = 299819987] Future Scheduled 2022-01-25 COLONOSCOPY SCREENING [facility] Test 11:11:15 [code = COLONOSCOPY SCREENING] Future Scheduled 2022-01-25 INFLUENZA VACCINE Method [facility] Test 11:11:15 [code = INFLUENZA [...] Medical Center DEPRESSION SCREENING (12+)] Future Scheduled 2021-04-[address] [facility] Test 00:00:00 (12+) [code = Medical Center DEPRESSION SCREENING (12+)] Future Scheduled 2021-04-[address] [facility] Test 00:00:00 (12+) [code = Medical Center DEPRESSION SCREENING (12+)] Future Scheduled [address] [facility] Test 00:00:00 (procedure) [code = Medical Center 55495205] Future Scheduled [address] [facility] Test 00:00:00 (procedure) [code = [facility] 62323200] Future Scheduled [address] [facility] Test 00:00:00 (procedure) [code = Medical Center 12542340] Future Scheduled 1995 DTAP/TDAP/TD VACCINES CH I [...] Medica l Center colon (procedure) [code = 237278604] Future Scheduled [address] [facility] Test 00:[facility] malignant neoplasm of Medica l Center colon (procedure) [code = 447485796] Future Scheduled [address] [facility] Test 00:00:00 malignant neoplasm of Medica l Center colon (procedure) [code = 515636768] Future Scheduled [address] [facility] Test 00:00:00 malignant neoplasm of Medica l Center colon (procedure) [code = 557288421] Future Scheduled 1975 Sigmoidoscopy [facility] [address] [facility] Test 00:00:00 (combo) [code = CT Medical C enter Colonography (combo)] Future Scheduled [address] [facility] Test 00:00:00 malignant neoplasm of Medica l Center colon (procedure) [code = 822067371] Future Scheduled [address] [facility] Test 00:00:00 malignant neoplasm of Medica l Center colon (procedure) [code = 825363864] Future Scheduled [address] [facility] Test 00:00:00 malignant neoplasm of Medica l Center colon (procedure) [code = 582102004] Future Scheduled [address] [facility] Test 00:00:00 malignant neoplasm of Medica l Center colon (procedure) [code = 686104584] Future Scheduled 1975 Sigmoidoscopy [facility] [address] [facility] Test 00:00:00 (combo) [code = CT Medical C enter Colonography (combo)] Future Scheduled [address] [facility] Test 00:00:00 malignant neoplasm of Medica l Center colon (procedure) [code = 082720164] Future Scheduled [address] [facility] Test 00:00:00 malignant neoplasm of Medica l Center colon (procedure) [code = 109344502] Future Scheduled [address] [facility] Test 00:00:00 malignant neoplasm of Medica l Center colon (procedure) [code = 146964583] Future Scheduled [address] [facility] [facility] Test 00:00:00 malignant neoplasm of Medica l Center colon (procedure) [code = 461354357] Future Scheduled 1975 Sigmoidoscopy [facility] 00:[facility]oscopy] Medical Cente r Encounters Start End Encounter Admission Attending Care Care Encounter Source Date/Time Date/Time Type Type Clinicians Facility Department ID 2022-02-07 2022-02-07 Office Gorge, 1.2.840.1 [id number] Methodi 15:00:00 16:33:51 Visit Rochelle 98963.1.[address] [place] 3.430.2.7 Hosp antione .3.572707 l .8 2022-02-07 2022-02-07 Office Gorge, 1.2.840.1 [id number] Methodi 15:00:00 16:33:51 Visit Rochelle 40737.1.[address] [place] 3.430.2.7 Hosp antione .3.273206 l .8 2022-02-07 2022-02-07 Travel 1.2.840.1 1.2.874.690 [id number] Methodi 00:00:00 00:00:[address] 3.430.2.7 0.2.7.3.698 Ho spita .3.629405 084.8 l .8 2022-02-07 2022-02-07 Travel 1.2.840.1 1.2.110.521 0950 [id number] Methodi 00:00:00 00:00:[address] 3.430.2.7 0.2.7.3.698 Ho spita .3.402503 084.8 l .8 2022-02-01 2022-02-01 Telephone Gianna 1.2.840.1 [id number] Methodi 00:00:00 00:00:[address] 3.430.2.7 Hospit a .3.958128 l .8 2022-02-01 2022-02-01 Telephone Gianna, 1.2.840.1 [id number] 21 [id number] Methodi 00:00:00 00:00:[address] 3.430.2.7 Hospit a .3.411577 l .8 2022-01-25 2022-01-25 Telephone Antoinette, 1.2.840.1 [id number] Methodi 00:00:00 00:00:[address] 3.430.2.7 Hospit a .3.907855 l .8 2022-01-25 2022-01-25 Telephone Antoinette, 1.2.840.1 [id number] Methodi 00:00:00 00:00:[address] 3.430.2.7 Hospit a .3.832433 l .8 2022-01-01 2022-01-16 Office Dyllan Albert 1.2.840.1 [id number] Methodi 09:00:00 04:17:[address] 3.430.2.7 Hospit a .3.970197 l .8 2022-01-01 2022-01-16 Office Dyllan Albert 1.2.840.1 [id number] Methodi 09:00:00 04:17:[address] 3.430.2.7 Hospit a .3.575073 l .8 2022-01-11 2022-01-11 Telephone Omer, 1.2.840.1 [id number] 21 [id number] Methodi 00:00:00 00:00:[address] 3.430.2.7 Hospit a .3.971564 l .8 2022-01-11 2022-01-11 Telephone Omer, 1.2.840.1 [id number] 21 [id number] Methodi 00:00:00 00:00:[address] 3.430.2.7 Hospit a .3.251274 l .8 2022-01-09 2022-01-09 [facility] ShahanaRodneyy 1.2.840.1 [id number] [id number] Methodi 07:17:00 17:05:[address] 3.430.2.7 Hospit a .3.825949 l .8 2022-01-09 2022-01-09 [facility] ShahanaRodneyy 1.2.840.1 [id number] [id number] Methodi 07:17:00 17:05:[address] 3.430.2.7 Hospit a .3.574058 l .8 2022-01-09 2022-01-09 Anesthesia Carolyn Solorzano 1.2.840. 1 [id number] Methodi 12:26:00 15:04:00 Event Whitney Cano 48893.1.[address] 3.430.2.7 Hospit a .3.920660 l .8 2022-01-09 2022-01-09 Anesthesia Carolyn Solorzano 1.2.840. 1 [id number] Methodi 12:26:00 15:04:00 Event Whitney Cano 94152.1.[address] 3.430.2.7 Hospit a .3.432282 l .8 2022-01-09 2022-01-09 Surgery Shahana Dyllan 1.2.840.1 [id number] Methodi 11:27:00 13:02:[address] 3.430.2.7 Hospit a .3.544877 l .8 2022-01-09 2022-01-09 [facility] ShahanaRodneyy 1.2.840.1 [id number] Methodi 11:27:00 13:02:[address] 3.430.2.7 Hospit a .3.483109 l .8 2022-01-07 2022-01-07 [facility] Shahana Dyllan 1.2.840.1 [id number] Methodi 10:05:52 23:59:[address] 3.430.2.7 Hospit a .3.326328 l .8 2022-01-07 2022-01-07 [facility] Dyllan Albert 1.2.840.1 [id number] [id number] Methodi 10:05:52 23:59:[address] 3.430.2.7 Hospit a .3.090757 l .8 2022-01-07 2022-01-07 Pre-Admiss Dyllan Albert 1.2.840.1 [id number] Methodi 09:00:00 10:00:[address] Testing 3.430.2.7 Hospit a .3.553476 l .8 2022-01-07 2022-01-07 Pre-Admiss Dyllan Albert 1.2.840.1 [id number] Methodi 09:00:00 10:00:[address] Testing 3.430.2.7 Hospit a .3.487333 l .8 2022-01-07 2022-01-07 Travel 1.2.840.1 1.2.536.181 [id number] [id number] Methodi 00:00:00 00:00:[address] 3.430.2.7 0.2.7.3.698 Ho spita .3.627900 084.8 l .8 2022-01-07 2022-01-07 Travel 1.2.840.1 1.2.821.413 9423 [id number] Methodi 00:00:00 00:00:[address] 3.430.2.7 0.2.7.3.698 Ho spita .3.557967 084.8 l .8 2022-01-01 2022-01-01 Prep for Antoinette, 1.2.840.1 [id number] 2 [id number] Methodi 00:00:00 00:00:00 Surgery April [address]6534.1.[address] 3.430.2.7 Hospit a .3.098932 l .8 2022-01-01 2022-01-01 Prep for Antoinette, 1.2.840.1 [id number] 2 [id number] Methodi 00:00:00 00:00:00 Surgery April [address]75.1.[address] 3.430.2.7 Hospit a .3.032395 l .8 2021-12-26 2021-12-26 Telephone Omer, 1.2.840.1 [id number] 21 [id number] Methodi 00:00:00 00:00:[address] 3.430.2.7 Hospit a .3.022131 l .8 2021-12-26 2021-12-26 Telephone Omer, 1.2.840.1 [id number] 21 [id number] Methodi 00:00:00 00:00:[address] 3.430.2.7 Hospit a .3.657031 l .8 2021-12-25 2021-12-25 Telephone Antoinette, 1.2.840.1 [id number] Methodi 00:00:00 00:00:[address] 3.430.2.7 Hospit a .3.184534 l .8 2021-12-25 2021-12-25 Telephone Antoinette, 1.2.840.1 [id number] Methodi 00:00:00 00:00:[address] 3.430.2.7 Hospit a .3.494024 l .8 2021-09-06 2021-09-06 Lab [facility] [id number] 00:00:00 00:00:00 Requisitio Sky [facility] 2021-09-06 2021-09-06 Lab [facility] [id number] 00:00:00 00:00:00 Requisitio Sky [facility] 2021-05-13 2021-05-13 Letter SALBADOR Cabrera 1.2.840.114 [id number] Univers 00:00:00 00:00:00 (Out) Desi Nicolas [place] 350.1.13.10 it [facility] 4.2.7.2.686 [facility] [id number] [place] [address] Branch 2021-05-12 2021-05-12 Emergency X [facility] ERT [id number] Univers 08:47:00 11:17:00 TURNER rodriguez [facility] 2021-05-12 2021-05-[address] [facility] 1.2.955.691 [id number] Univers 08:47:00 11:17:00 Turner [facility] 4.2.7.2.686 [facility] [id number] [place] [address]45954 Branch Results Test Description Test Time Test Comments Results Result Comments Source POC glucose 2022-01-09 21:00:00 Test Item Value Reference Range Interpretation Comme nts POC glucose (test code = 214 mg/dL 65-99 H Ope rator Name: Joshua Beltran 90673-1) ID: [id number] hartable: RN Notified Lab Interpretation (test code = Abnormal 65363-2) [facility]2022-09-21 21:00:00 Test Item Value Reference Range Interpretation Comments POC glucose (test code = 214 mg/dL 65-99 H Ope rator Name: 53756-0) Joshua haywood ID: [id number] able: RN Notified Lab Interpretation (test Abnormal code = 42568-1) [facility] [id number] 21:00:00 Test Item Value Reference Range Interpretation Comments POC glucose (test code = 214 mg/dL 65-99 H Ope rator Name: 60600-6) Joshua haywood ID: [id number] able: RN Notified Lab Interpretation (test Abnormal code = 45021-7) [facility] [id number] 13:44:01 Test Item Value Reference Range Interpretation Comments POC sodium (test code = 135 mmol/L 525-514 8486-0) POC potassium (test 4.5 mmol/L 3.5-5.0 code = 6298-4) POC glucose (test code 280 mg/dL 65-99 H = 2339-0) POC creatinine (test 6.0 mg/dl 0.7-1.2 H Operato r Name: code = 44453-5) Israel Roldan ID : [id number] POC hemoglobin (test 11.9 g/dL 14.0-18.0 L code = 718-7) POC hematocrit (test 35 % 41-51 L code = 4544-3) Lab Interpretation Abnormal (test code = 59482-7) [facility]2022-09-21 13:44:01 Test Item Value Reference Range Interpretation Comments POC sodium (test code = 135 mmol/L 159-242 4560-0) POC potassium (test 4.5 mmol/L 3.5-5 code = 6298-4) POC glucose (test code 280 mg/dL 65-99 H = 2339-0) POC creatinine (test 6.0 mg/dl 0.7-1.2 H Operato r Name: code = 48863-6) Wood Genna ID : [id number] POC hemoglobin (test 11.9 g/dL 14-18 L code = 718-7) POC hematocrit (test 35 % 41-51 L code = 4544-3) Lab Interpretation Abnormal (test code = 97037-9) [facility]2022-09-21 13:44:01 Test Item Value Reference Range Interpretation Comments POC sodium (test code = 135 mmol/L 465-741 2652-0) POC potassium (test 4.5 mmol/L 3.5-5.0 code = 6298-4) POC glucose (test code 280 mg/dL 65-99 H = 2339-0) POC creatinine (test 6.0 mg/dl 0.7-1.2 H Operato r Name: code = 75594-8) Israel Mireleskassy ID : [id number] POC hemoglobin (test 11.9 g/dL 14.0-18.0 L code = 718-7) POC hematocrit (test 35 % 41-51 L code = 4544-3) Lab Interpretation Abnormal (test code = 19576-3) [facility] Hospital[facility]ated [id number] 13:44:00 Test Item Value Reference Range Interpretation Comments Estimated GFR (test mL/min/1.73 m2 A Caterg ory Units code = 90914-4) Interpretati onG1 >=90 Normal or highG 2 60-89 Mildly decrease dG3a 45-59 Mildly to moderately decr [id number] 30-44 Moderatel y to severely decrea sedG4 15-29 Severely decreasedG5 <1 5 Kidney failureThe eGFR was calculated usin g the Chronic Kidney Disease Epidemiology Collaboration ( CKD-EPI) equation. Interpretation is based on recommendati ons of the [facility] Disease Outcome s Quality Initiat marshall ([facility]) pub lished in 2013. Lab Interpretation Abnormal (test code = 79558-3) [facility] [id number] 13:44:00 Test Item Value Reference Range Interpretation Comments Estimated GFR (test mL/min/1.73 m2 A Caterg ory Units code = 39834-0) Interpretati onG1 >=90 Normal or highG 2 60-89 Mildly decrease dG3a 45-59 Mildly to moderately decr dtxpeJ2c 30-44 Moderatel y to severely decrea sedG4 15-29 Severely decreasedG5 <15 Kidney failureThe eGFR was calculated usin g the Chronic Kidney Disease Epidemiology Collaboration ( CKD-EPI) equation. Interpretation is based on recommendati ons of the [facility] Disease Outcome s Quality Initiat marshall (NK-KDOQI) pub lished in 2013. Lab Interpretation Abnormal (test code = 09905-5) [facility] HospitalEstimated [id number] 13:44:00 Test Item Value Reference Range Interpretation Comments Estimated GFR (test mL/min/1.73 m2 A Caterg ory Units code = 12946-8) Interpretati onG1 >=90 Normal or highG 2 60-89 Mildly decrease dG3a 45-59 Mildly to moderately decr sjpgbC0p 30-44 Moderate ly to severely decrea sedG4 15-29 Severely decreasedG5 <15 Kidney failureThe eGFR was calculated usin g the Chronic Kidney Disease Epidemiology Collaboration ( CKD-EPI) equation. Interpretation is based on recommendati ons of the [facility] Disease Outcome s Quality Initiat marshall (NKF-KDOQI) pub lished in 2013. Lab Interpretation Abnormal (test code = 93697-2) [facility] [Presence] in Respiratory specimen by YESENIA with probe [id number] 17:48:52 Test Item Value Reference Range Interpretation Comments SARS-CoV-2 (COVID-19) RNA Not detected [Presence] in Respiratory specimen by YESENIA with probe detection (test code = 01100-1) Whether patient is employed in a Unknown healthcare setting (test code = 61838-6) Whether the patient has symptoms Unknown related to condition of interest (test code = 16523-0) Whether the patient was Unknown hospitalized for condition of interest (test code = 95111-8) Whether the patient was admitted Unknown to intensive care unit (ICU) for condition of interest (test code = 62228-3) Whether patient resides in a Unknown congregate care setting (test code = 69787-4) status (test code = Unknown 94098-5) Date and time of symptom onset Unknown (test code = 53281-1) [facility] Pre/Post [id number] 17:20:24 Test Item Value Reference Range Interpretation Comments Ventricular rate (test code = 253) Atrial rate (test code = 255) NC interval (test code = 266) QRSD interval [...] ECG-No previous ECGs available- [facility] Pre/Post [id number] 17:20:24 Test Item Value Reference Range Interpretation Comments Ventricular rate (test code = 253) Atrial rate (test code = 255) NC interval (test code = 266) QRSD interval [...] ECG-No previous ECGs available- [facility] Pre/Post [id number] 17:20:24 Test Item Value Reference Range Interpretation Comments Ventricular rate (test code = 253) Atrial rate (test code = 255) NC interval (test code = 266) QRSD interval (test code = 260) QT interval (test code = 264) QTC interval (test code = 265) P axis 1 (test code = 267) QRS axis 1 (test code = 268) T wave axis (test code = 270) EKG impression (test Sinus rhythm with code = 273) occasional premature ventricular complexes-Left axis deviation-Abnormal ECG-No previous ECGs available- [facility] [id number] 15:46:00 Test Item Value Reference Range Interpretation Comments Urine culture (test SEE COMMENT Bacteriu lashell screen code = 3174656) negative. [facility] [id number] 15:46:00 Test Item Value Reference Range Interpretation Comments Urine culture (test SEE COMMENT Bacteriu lashell screen code = 3294986) negative. [facility] [id number] 15:46:00 Test Item Value Reference Range Interpretation Comments Urine culture (test SEE COMMENT Bacteriu lashell screen code = 1656016) negative. [facility] B surface [id number] 22:01:34 Test Item Value Reference Range Interpretation Comments Hep B S Ab (test code <8.0 See_Comment [Auto mated = 61313-4) message] The system which generated this result transmit brad reference range : <8.0 mIU/mL. Th e reference range was not used to interpret this result as normal/abnormal . TALIB (test code = TALIB) Principal Mechanical Engineer ID - DB Lab Interpretation Normal (test code = 78806-3) [facility] B surface [id number] 22:01:34 Test Item Value Reference Range Interpretation Comments Hep B S Ab (test code <8.0 See_Comment [Auto mated = 53734-1) message] The system which generated this result transmit brad reference range : <8.0 mIU/mL. Th e reference range was not used to interpret this result as normal/abnormal . TALIB (test code = TALIB) Principal Mechanical Engineer ID - DB Lab Interpretation Normal (test code = 66929-9) [facility] [id number] 22:01:34 Test Item Value Reference Range Interpretation Comments Hep B S Ab (test code <8.0 See_Comment [Auto mated = 06968-6) message] The system which generated this result transmit brad reference range : <8.0 mIU/mL. Th e reference range was not used to interpret this result as normal/abnormal . TALIB (test code = TALIB) Principal Mechanical Engineer ID - DB Lab Interpretation Normal (test code = 06786-3) [facility] [id number] 22:01:34 Test Item Value Reference Range Interpretation Comments HEPATITIS B SURFACE ANTIBODY < mIU/mL <8.0 (BEAKER) (test code = 647) Principal Mechanical Engineer ID - DBHepatitis B core antibody, [id number] 21:52:25 Test Item Value Reference Range Interpretation Comments Hep B C IgM (test code = Nonreactive Nonreactive 41588-0) TALIB (test code = TALIB) Principal Mechanical Engineer ID - DB Lab Interpretation (test Normal code = 52912-7) [facility], [id number] 21:52:25 Test Item Value Reference Range Interpretation Comments Hep B C IgM (test code = Nonreactive Nonreactive 03714-8) TALIB (test code = TALIB) Principal Mechanical Engineer ID - DB Lab Interpretation (test Normal code = 30916-6) [facility], [id number] 21:52:25 Test Item Value Reference Range Interpretation Comments Hep B C IgM (test code = Nonreactive Nonreactive 53272-1) TALIB (test code = TALIB) Principal Mechanical Engineer ID - DB Lab Interpretation (test Normal code = 05769-1) [facility]TIB[facility], [id number] 21:52:25 Test Item Value Reference Range Interpretation Comments HEPATITIS B CORE IGM ANTIBODY Nonreactive Nonreactive (BEAKER) (test code = 645) Principal Mechanical Engineer ID - DBHepatitis B surface [id number] 21:52:19 Test Item Value Reference Range Interpretation Comments Hepatitis B surface Nonreactive Nonreactive antigen (test code = 5195-3) TALIB (test code = TALIB) Specimen is considered negative for HBsAg. Lab Interpretation (test Normal code = 55775-9) [facility] [id number] 21:52:19 Test Item Value Reference Range Interpretation Comments Hepatitis B surface Nonreactive Nonreactive antigen (test code = 5195-3) TALIB (test code = TALIB) Specimen is considered negative for HBsAg. Lab Interpretation (test Normal code = 93784-7) [facility] surface [id number] 21:52:19 Test Item Value Reference Range Interpretation Comments Hepatitis B surface Nonreactive Nonreactive antigen (test code = 5195-3) TALIB (test code = TALIB) Specimen is considered negative for HBsAg. Lab Interpretation (test Normal code = 58402-2) [facility] SURFACE [id number] 21:52:19 Test Item Value Reference Range Interpretation Comments HEPATITIS B SURFACE ANTIGEN (2) Nonreactive Nonreactive (BEAKER) (test code = 2585) Specimen is considered negative for HBsAg.
[2022-02-12] MEDS ORDERED: ONDANSETRON 4 MG (ODT) TAB ONE (12:27)
[2022-02-12] MEDS ORDERED: NA CHLORIDE 0.9% 1,000 ML ONE (12:35)
[2022-02-12] MEDS ORDERED: ONDANSETRON 4 MG/2 ML VIAL ONE (12:35)
[2022-02-12 13:02] LABS: Absolute Lymphocytes (CBC) 1.6 K/uL (0.7-4.9); Hematocrit 33.3 % (39.6-49.0); Lymphocytes % 9.7 % (15.3-44.8); MCV 78.8 fL (80-100); MPV 6.8 fL (7.6-11.3); RBC Red Blood Cell Count 4.23 M/uL (4.33-5.43)
[2022-02-12 13:27] LABS: Albumin 3.1 g/dL (3.4-5.0); Bilirubin Total 0.4 mg/dL (0.2-1.0); Potassium 3.9 mmol/L (3.5-5.1); Protein, Total 7.8 g/dL (6.4-8.2)
--- NOTE | 2022-02-12 13:28 | RAD REPORT ---
EXAM DESCRIPTION: RAD - Abdomen Single View - 02/12/2022 1:20 pm CLINICAL HISTORY: DISTENTION COMPARISON: Renal Ultrasound-Complete dated 09/05/2021 FINDINGS: Nonobstructive bowel gas pattern. No acute osseous abnormality.Visualized lungs are unrema rkable.No abnormal calcifications. Bilateral acetabular degenerative changes. IMPRESSION: Nonobstructive bowel gas pattern.
[2022-02-12] MEDS ORDERED: LABETALOL 20 MG/4ML SYRINGE IV ONE (16:15)
--- NOTE | 2022-02-12 16:48 | RAD REPORT ---
EXAM DESCRIPTION: CTAbdomen Pelvis Wo Contrast - 02/12/2022 4:27 pm CLINICAL HISTORY: Abdominal pain + leukocytosis COMPARISON: [facility] Protocol dated 05/04/2021 TECHNIQUE: CT of the abdomen and pelvis was performed. All CT scans are performed using dose optimization technique as appropriate and may include automated exposure control or mA/KV adjustment according to patient size. FINDINGS: Lower chest: Small bilateral pleural effusions. Moderately thickened distal esophagus. Liver: No acute abnormality or suspicious lesions. Biliary: No biliary ductal dilatation. Stomach: No significant focal abnormality. Duodenum: No significant focal abnormality. Pancreas: No significant abnormality. Spleen: No significant abnormality. Adrenal: No suspicious lesions. Kidney/ureter: No hydronephrosis. No renal calculi. Nonspecific bilateral perinephric stranding. Retroperitoneum: No retroperitoneal adenopathy. Vascular: No aneurysm. Bowel: No significant focal abnormality. Peritoneum: No ascites or free air. Bladder: Grossly unremarkable. Reproductive: No adnexal masses. Bones: No acute fracture. Other: n/a IMPRESSION: No acute intra-abdominal or pelvic finding. Small nonspecific pleural effusions. Pronounced distal esophageal wall thickening. This could reflect severe reflux esophagitis. Suggest e ndoscopy for further evaluation.
--- NOTE | 2022-02-12 17:01 | ER ---
Nurse's Notes [facility] Name: Chava Pate Age: 46 yrs Sex: Male : 1975 Arrival Date: 02/12/2022 Time: 11:56 Bed 30 Private MD: Ramon Romo T Diagnosis: Vomiting, hyponatremia, dehydration, ESRD Presentation: 02/12 12:10 Chief complaint: Patient states: N/V for 2 days. Currently on antibiotics for tooth ll1 pain, tooth appt tomorrow. Coronavirus screen: Vaccine status: Patient reports receiving the 2nd dose of the covid vaccine. Client denies travel out of the [place] in the last 14 days. nausea, vomiting. Client presents with at least one sign or symptom that may indicate coronavirus-19. Standard/surgical mask placed on the client. Ebola Screen: Patient denies travel to an Ebola-affected area in the 21 days before illness onset. No symptoms or risks identified at this time. Initial Sepsis Screen: Does the patient meet any 2 criteria? No. Patient's initial sepsis screen is negative. Does the patient have a suspected source of infection? Yes: Acute abdominal pain. Risk Assessment: Do you want to hurt yourself or someone else? Patient reports no desire to harm self or others. Onset of symptoms was February 11, 2022. 12:10 Method Of Arrival: Ambulatory ll1 12:10 Acuity: EDINSON 3 ll1 Triage Assessment: 12:18 General: Appears uncomfortable, Behavior is cooperative, appropriate for age. Pain: 1 Complains of pain in abdomen Pain currently is 8 out of 10 on a pain scale. Quality of pain is described as pressure. GI: Reports lower abdominal pain, upper abdominal pain, cramping, nausea, vomiting. Historical: - Allergies: 12:09 No Known Allergies; ll1 - Home Meds: 13:06 gabapentin Oral [Active]; em6 - PMHx: 12:09 Diabetes - NIDDM; Hypertensive disorder; kidney disease; PERIPHERAL NEUROPATHY; ll1 - PSHx: 12:09 fistula L arm; ll1 - Immunization history:: Last tetanus immunization: up to date. - Social history:: Smoking status: Patient denies any tobacco usage or history of. Screenin:35 Abuse screen: Denies threats or abuse. Nutritional screening: No deficits noted. em6 Tuberculosis screening: No symptoms or risk factors identified. Fall Risk IV access (20 points). Total Pruitt Fall Scale indicates No Risk (0-24 pts). Assessment: 12:30 General: Appears uncomfortable, Behavior is cooperative. Pain: Complains of pain in em6 abdomen Pain does not radiate. Pain currently is 7 out of 10 on a pain scale. Quality of pain is described as sharp, Pain began 2-3 days ago. Neuro: Level of Consciousness is awake, alert, obeys commands, Oriented to person, place, time, situation. Cardiovascular: Heart tones present Patient's skin is warm and dry. Respiratory: Airway is patent Respiratory effort is even, unlabored, Respiratory pattern is regular, symmetrical. GI: Abdomen is non-distended, Abd is soft and non tender X 4 quads. Reports intolerance of fluids, intolerance of food, nausea, vomiting. : No signs and/or symptoms were reported regarding the genitourinary system. EENT: No signs and/or symptoms were reported regarding the EENT system. Derm: No signs and/or symptoms reported regarding the dermatologic system. Musculoskeletal: Circulation, motion, and sensation intact. Range of motion: intact in all extremities. 12:35 Reassessment: patient did not tolerate fluids nor food. he threw up. provider notified. em6 13:30 Reassessment: Patient appears in no apparent distress at this time. Patient and/or em6 family updated on plan of care and expected duration. Pain level reassessed. Patient is alert, oriented x 3, equal unlabored respirations, skin warm/dry/pink. Patient states symptoms have improved. 14:35 Reassessment: Patient appears in no apparent distress at this time. Patient and/or em6 family updated on plan of care and expected duration. Pain level reassessed. Patient is alert, oriented x 3, equal unlabored respirations, skin warm/dry/pink. 15:35 Reassessment: Patient appears in no apparent distress at this time. Patient and/or em6 family updated on plan of care and expected duration. Pain level reassessed. Patient is alert, oriented x 3, equal unlabored respirations, skin warm/dry/pink. Patient states symptoms have improved. 16:19 Reassessment: Patient appears in no apparent distress at this time. No changes from tp1 previously documented assessment. Patient is alert, oriented x 3, equal unlabored respirations, skin warm/dry/pink. 16:20 Reassessment: escorted to CT via wheelchair by audio/video technician. tp1 16:30 Reassessment: returned from CT. tp1 17:30 Reassessment: Patient appears in no apparent distress at this time. No changes from tp1 previously documented assessment. Patient is alert, oriented x 3, equal unlabored respirations, skin warm/dry/pink. Patient denies pain at this time. 18:30 Reassessment: Patient appears in no apparent distress at this time. No changes from tp1 previously documented assessment. Patient is alert, oriented x 3, equal unlabored respirations, skin warm/dry/pink. Patient denies pain at this time. 19:25 Reassessment: Mg 1.1, Provider notified. vc1 19:41 Reassessment: Patient appears in no apparent distress at this time. No changes from tp1 previously documented assessment. Patient and/or family updated on plan of care and expected duration. Pain level reassessed. Patient is alert, oriented x 3, equal unlabored respirations, skin warm/dry/pink. resting in bed with eyes closed Patient denies pain at this time. 22:24 Reassessment: attempted to give report, will call back. tp1 22:45 Reassessment: report given to the receiving nurse. tp1 Vital Signs: 12:10 BP 184 / 75; Pulse 92; Resp 18; Temp 97.6; Pulse Ox 100% on R/A; Weight 106.59 kg; ll1 Height 5 ft. 8 in. (172.72 cm); Pain 8/10; 13:29 BP 170 / 82; Pulse 90; Resp 18; Pulse Ox 100% on R/A; em6 14:35 BP 131 / 110; Pulse 88; Resp 18; Pulse Ox 100% on R/A; em6 15:42 BP 176 / 98; Pulse 85; Resp 16; Pulse Ox 100% ; em6 16:00 BP 192 / 92; Pulse 88; Resp 16; Pulse Ox 100% on R/A; tp1 17:49 BP 166 / 87; Pulse 82; Resp 16; Pulse Ox 100% on R/A; tp1 18:30 BP 157 / 86; Pulse 80; Resp 16; Pulse Ox 100% on R/A; tp1 19:40 BP 161 / 77; Pulse 86; Resp 16; Pulse Ox 98% on R/A; tp1 12:10 Body Mass Index 35.73 (106.59 kg, 172.72 cm) ll1 ED Course: 11:56 Patient arrived in ED. am2 11:56 Ramon Romo MD is Private Physician. am2 12:08 Ean Parisi MD is Attending Physician. sp3 12:08 Arm band placed on Patient placed in an exam room, on a stretcher. EKG completed in ll1 triage. Results shown to MD. EKG completed in triage. Results shown to MD. 12:18 Triage completed. ll1 12:24 Sofie Dias, RN is Primary Nurse. em6 12:35 Bed in low position. Call light in reach. Side rails up X2. case monitor on. Pulse em6 ox on. NIBP on. Warm blanket given. 12:52 Inserted saline lock: 20 gauge in right antecubital area, using aseptic technique. em6 Blood collected. 13:03 CBC with Diff Sent. em6 13:03 CMP Sent. em6 13:03 Lipase Sent. em6 13:22 Abdomen 1 View XRAY In Process Unspecified. EDMS 16:28 Abdomen In Process Unspecified. EDMS 17:01 Dudley Ruiz MD is Hospitalizing Provider. sp3 18:13 COVID swab sent to lab. tp1 18:13 SARS-COV-2 Antigen Rapid Sent. tp1 20:19 No provider procedures requiring assistance completed. Patient admitted, IV remains in tp1 place. Administered Medications: 12:30 Drug: Ondansetron 4 mg Route: PO; em6 12:35 Follow up: Response: Other; patient threw up medication. provider notified. new orders em6 given 12:51 Drug: NS 0.9% 1000 ml Route: IV; Rate: 1 bolus; Site: right antecubital; em6 16:19 Follow up: IV Status: Completed infusion; IV Intake: 1000ml tp1 12:52 Drug: Zofran (Ondansetron) 4 mg Route: IVP; Site: right antecubital; em6 13:20 Follow up: Response: No adverse reaction; Marked relief of symptoms em6 16:19 Drug: Labetalol 10 mg Route: IV; Rate: calculated rate; Site: right antecubital; tp1 16:19 Follow up: IV Status: Completed infusion tp1 17:49 Follow up: Response: Blood pressure is lowered tp1 17:38 Drug: NS 0.45 % 1000 ml Route: IV; Rate: 75 ml/hr; Site: right antecubital; tp1 20:22 Follow up: IV Status: Infusion continued upon admission tp1 17:46 Drug: Zosyn (piperacillin-tazobactam) 2.25 grams Route: IVPB; Infused Over: 60 mins; tp1 Site: right antecubital; 19:00 Follow up: Response: No adverse reaction; IV Status: Completed infusion; IV Intake: tp1 100ml 19:40 Drug: Magnesium Sulfate 2 grams Route: IVPB; Infused Over: 2 hrs; Site: right tp1 antecubital; 20:22 Follow up: IV Status: Infusion continued upon admission tp1 Medication: 20:19 VIS not applicable for this client. tp1 Intake: 16:19 IV: 1000ml; Total: 1000ml. tp1 19:00 IV: 100ml; Total: 1100ml. tp1 Outcome: 17:01 Decision to Hospitalize by Provider. sp3 20:19 Admitted to ER Hold. Please see [facility] for further documentation. tp1 20:19 Condition: good 20:19 Discharge instructions given to patient, Instructed on the need for admit, Demonstrated understanding of instructions. 23:00 Patient left the ED. tp1 Signatures: Dispatcher [employer] EDMS Radha Medrano am2 Gretta Contreras RN RN ll1 Ean Parisi MD MD sp3 Marge Shirley RN RN tp1 Kalli Sullivan RN RN vc1 Sofie Dias RN RN em6 Corrections: (The following items were deleted from the chart) 13:04 13:03 Response: Other; patient threw up medication. provider notified. new orders given em6 em6 13: 12:30 Cardiovascular: Heart tones present Patient's skin is warm and dry. em6 em6 13:24 12:30 Respiratory: Airway is patent Respiratory effort is even, unlabored, Respiratory em6 pattern is regular, symmetrical, em6 13:24 12:30 EENT: No signs and/or symptoms were reported regarding the EENT system. em6 em6 13: 12:30 Derm: No signs and/or symptoms reported regarding the dermatologic system. em6 em6 13:24 12:30 Musculoskeletal: Circulation, motion, and sensation intact. Range of motion: em6 intact in all extremities, em6 17:51 17:50 Reassessment: Patient appears in no apparent distress at this time. No changes tp1 from previously documented assessment. Patient is alert, oriented x 3, equal unlabored respirations, skin warm/dry/pink. Patient denies pain at this time. tp1
--- NOTE | 2022-02-12 17:01 | EDPHYS ---
Physician Documentation [facility] Name: Chava Pate Age: 46 yrs Sex: Male : 1975 Arrival Date: 02/12/2022 Time: 11:56 Bed 30 Private MD: Raomn Romo T ED Physician Ean Parisi HPI: 02/12 13:25 This 46 yrs old Male presents to ER via Ambulatory with complaints of sp3 Nausea/Vomiting. 13:25 46-year-old male with a history of hypertension, kidney disease, diabetes presents with sp3 abdominal distention, abdominal pain and emesis since yesterday. Patient states he has had 3-4 episodes of emesis which of progressed to just clear secondary to not being able to have any p.o. intake. Still states he has had episodes of watery diarrhea and has not "had a real bowel movement" in quite some time. He denies headache, fever, URI symptoms, chest pain, shortness of breath, back pain, rash, known travel history, any other symptoms on ROS at this time.. Historical: - Allergies: 12:09 No Known Allergies; ll1 - Home Meds: 13:06 gabapentin Oral [Active]; em6 - PMHx: 12:09 Diabetes - NIDDM; Hypertensive disorder; kidney disease; PERIPHERAL NEUROPATHY; ll1 - PSHx: 12:09 fistula L arm; ll1 - Immunization history:: Last tetanus immunization: up to date. - Social history:: Smoking status: Patient denies any tobacco usage or history of. ROS: 13:28 Constitutional: Negative for fever, chills, and weight loss, Eyes: Negative for injury, sp3 pain, redness, and discharge, ENT: Negative for injury, pain, and discharge, Neck: Negative for injury, pain, and swelling, Cardiovascular: Negative for chest pain, palpitations, and edema, Respiratory: Negative for shortness of breath, cough, wheezing, and pleuritic chest pain, Back: Negative for injury and pain, MS/Extremity: Negative for injury and deformity, Skin: Negative for injury, rash, and discoloration, Neuro: Negative for headache, weakness, numbness, tingling, and seizure, Psych: Negative for depression, anxiety, suicide ideation, homicidal ideation, and hallucinations, Allergy/Immunology: Negative for hives, rash, and allergies. 13:28 All other systems are negative. Exam: 13:28 Constitutional: This is a well developed, well nourished patient who is awake, alert, sp3 and in no acute distress. Head/Face: Normocephalic, atraumatic. Eyes: Pupils equal round and reactive to light, extra-ocular motions intact. Lids and lashes normal. Conjunctiva and sclera are non-icteric and not injected. Cornea within normal limits. Periorbital areas with no swelling, redness, or edema. ENT: Nares patent. No nasal discharge, no septal abnormalities noted. External auditory canals are clear. Oropharynx with no redness, swelling, or masses, exudates, or evidence of obstruction, uvula midline. Mucous membranes moist. Neck: Trachea midline, no thyromegaly or masses palpated, and no cervical lymphadenopathy. Supple, full range of motion without nuchal rigidity, or vertebral point tenderness. No Meningismus. Chest/axilla: Normal chest wall appearance and motion. Nontender with no deformity. No lesions are appreciated. Cardiovascular: Regular rate and rhythm with a normal S1 and S2. No gallops, murmurs, or rubs. Normal PMI, no JVD. No pulse deficits. Respiratory: Lungs have equal breath sounds bilaterally, clear to auscultation and percussion. No rales, rhonchi or wheezes noted. No increased work of breathing, no retractions or nasal flaring. Back: No spinal tenderness. No costovertebral tenderness. Full range of motion. Skin: Warm, dry with normal turgor. Normal color with no rashes, no lesions, and no evidence of cellulitis. MS/ Extremity: Pulses equal, no cyanosis. Neurovascular intact. Full, normal range of motion. Neuro: Awake and alert, GCS 15, oriented to person, place, time, and situation. Cranial nerves II-XII grossly intact. Motor strength 5/5 in all extremities. Sensory grossly intact. Cerebellar exam normal. Normal gait. Psych: Awake, alert, with orientation to person, place and time. Behavior, mood, and affect are within normal limits. 13:28 Abdomen/GI: Has mildly distended abdomen that is soft without peritoneal signs including rebound or guarding. Bowel sounds are present.. Vital Signs: 12:10 BP 184 / 75; Pulse 92; Resp 18; Temp 97.6; Pulse Ox 100% on R/A; Weight 106.59 kg; ll1 Height 5 ft. 8 in. (172.72 cm); Pain 8/10; 13:29 BP 170 / 82; Pulse 90; Resp 18; Pulse Ox 100% on R/A; em6 14:35 BP 131 / 110; Pulse 88; Resp 18; Pulse Ox 100% on R/A; em6 15:42 BP 176 / 98; Pulse 85; Resp 16; Pulse Ox 100% ; em6 16:00 BP 192 / 92; Pulse 88; Resp 16; Pulse Ox 100% on R/A; tp1 17:49 BP 166 / 87; Pulse 82; Resp 16; Pulse Ox 100% on R/A; tp1 18:30 BP 157 / 86; Pulse 80; Resp 16; Pulse Ox 100% on R/A; tp1 19:40 BP 161 / 77; Pulse 86; Resp 16; Pulse Ox 98% on R/A; tp1 12:10 Body Mass Index 35.73 (106.59 kg, 172.72 cm) ll1 MDM: 12:17 Patient medically screened. sp3 13:30 Data reviewed: vital signs, nurses notes. ED course: -year-old male with complex sp3 medical history now with abdominal pain and leukocytosis of 16,000 along with emesis in the ED. Differential diagnosis is broad and includes biliary disease or pancreatic disease, gastritis, bowel obstruction, general abdominal pain, constipation. I do not believe patient is in septic shock, has ACS, has vascular pathology including aortic dissection and aneurysm, any other critical findings at this time. Work-up will include CT scan of the abdomen/pelvis, laboratory values, IV medications as needed for symptomatic treatment. Disposition to be based on work-up and patient course and is pending at this time.. 16:58 ED course: CT scan demonstrates no acute abnormality requiring intervention. Sodium sp3 levels at 119 and patient has a mild anion gap acidosis. This is possibly due to dehydration secondary to the emesis. Will admit patient and start slow IV fluids correct the sodium slowly. Zosyn one dose has been given as a prophylactic dose in case there is an infection.. 02/12 12:32 Order name: CBC with Diff; Complete Time: 13:23 sp3 02/12 12:32 Order name: CMP; Complete Time: 15:28 sp3 02/12 12:32 Order name: Lipase; Complete Time: 15:28 sp3 02/12 17:20 Order name: SARS-COV-2 Antigen Rapid bd 02/12 18:54 Order name: SARS-COV-2 Antigen Rapid EDMS 02/12 19:27 Order name: Phosphorus EDMS 02/12 12:16 Order name: Abdomen 1 View XRAY; Complete Time: 15:28 sp3 02/12 13:25 Order name: CT Abd/Pelvis - PO Contrast Only sp3 02/12 13:28 Order name: Abdomen ; Complete Time: 16:52 EDMS 02/12 19:27 Order name: Magnesium EDMS 02/12 20:36 Order name: Flu vc1 02/12 21:48 Order name: Influenza Screen (A EDMS 02/12 12:16 Order name: PO challenge; Complete Time: 12:31 sp3 02/12 12:32 Order name: IV Saline Lock; Complete Time: 13:03 sp3 02/12 12:32 Order name: Labs collected and sent; Complete Time: 13:03 sp3 Administered Medications: 12:30 Drug: Ondansetron 4 mg Route: PO; em6 12:35 Follow up: Response: Other; patient threw up medication. provider notified. new orders em6 given 12:51 Drug: NS 0.9% 1000 ml Route: IV; Rate: 1 bolus; Site: right antecubital; em6 16:19 Follow up: IV Status: Completed infusion; IV Intake: 1000ml tp1 12:52 Drug: Zofran (Ondansetron) 4 mg Route: IVP; Site: right antecubital; em6 13:20 Follow up: Response: No adverse reaction; Marked relief of symptoms em6 16:19 Drug: Labetalol 10 mg Route: IV; Rate: calculated rate; Site: right antecubital; tp1 16:19 Follow up: IV Status: Completed infusion tp1 17:49 Follow up: Response: Blood pressure is lowered tp1 17:38 Drug: NS 0.45 % 1000 ml Route: IV; Rate: 75 ml/hr; Site: right antecubital; tp1 20:22 Follow up: IV Status: Infusion continued upon admission tp1 17:46 Drug: Zosyn (piperacillin-tazobactam) 2.25 grams Route: IVPB; Infused Over: 60 mins; tp1 Site: right antecubital; 19:00 Follow up: Response: No adverse reaction; IV Status: Completed infusion; IV Intake: tp1 100ml 19:40 Drug: Magnesium Sulfate 2 grams Route: IVPB; Infused Over: 2 hrs; Site: right tp1 antecubital; 20:22 Follow up: IV Status: Infusion continued upon admission tp1 Disposition Summary: 02/12/22 17:01 Hospitalization Ordered Hospitalization Status: Inpatient Admission sp3 Provider: Dudley Ruiz sp3 Condition: Stable sp3 Problem: an acute exacerbation sp3 Symptoms: have worsened sp3 Bed/Room Type: Standard sp3 Location: Telemetry/MedSurg (Inpatient)(02/12/22 21:19) mw Room Assignment: [facility](02/12/22 21:19) mw Diagnosis - Vomiting, hyponatremia, dehydration, ESRD sp3 Forms: - Medication Reconciliation Form sp3 - SBAR form sp3 Signatures: Dispatcher [employer] EDMS Jessica Tavera RN RN mw Tirso Wilson, STORAGE GARAGE MANAGER-C STORAGE GARAGE MANAGER-Cla1 Gretta Contreras RN RN ll1 Ean Parisi MD MD sp3 Marge Shirley RN RN tp1 Sofie Dias RN RN em6 Corrections: (The following items were deleted from the chart) 20:18 17:01 Telemetry/MedSurg (Inpatient) sp3 mw 20:18 17:01 sp3 mw 21:19 20:18 BR ER HOLD mw mw 21:19 20:18 ERHOLD- mw mw
[2022-02-12] MEDS ORDERED: ACETAMINOPHEN 325 MG TABLET PO PRN (17:18)
[2022-02-12] MEDS ORDERED: HYDROCODONE/APAP 5/325 MG TAB PO PRN (17:18)
[2022-02-12] MEDS ORDERED: SODIUM CHLORIDE 0.9% 10ML INJ IV PRN (17:20)
[2022-02-12] MEDS ORDERED: guaiFENesin 100 MG/5 ML UCUP PO PRN (17:28)
[2022-02-12] MEDS ORDERED: LABETALOL 20 MG/4ML SYRINGE IV PRN (17:28)
--- NOTE | 2022-02-12 17:29 | P.HP ---
Certification for Inpatient Patient admitted to: Inpatient With expected LOS: >2 Midnights Patient will require the following post-hospital care: None Practitioner: I am a practitioner with admitting privileges, knowledge of patient current condition, hospital course, and medical plan of care. Services: Services provided to patient in accordance with Admission requirements found in Title 42 Section 412.3 of the Code of Federal Regulations Patient History Date of Service: 02/12/22 Reason for admission: N\V\Abd pain History of Present Illness: Patient is a 46-year-old male with a past medical history significant for ESRD, hypertension, DM 2 with peripheral neuropathy who presents with complaint of intractable nausea and vomiting that has been ongoing since yesterday. Patient is a poor historian and unable to provide any accurate history. Patient also reports generalized abdominal pain and distention that has been ongoing for a couple of days. Patient rated pain as 8/10 in severity and described pain as tightness in quality. Patient reported that has not been able to tolerate any p.o. intake. Patient reports tooth ache also. Patient was scheduled to Follow- up with his dentist tomorrow. Patient denies any other signs or symptoms. Symptoms are aggravated or relieved by nothing. Patient decided to present to the hospital due to worsening symptoms. Allergies No Known Allergies Allergy (Verified 10/19/17 00:45) Home Medications: Cholecalciferol (Vitamin D3) [Vitamin D 5,000 IU Cap*] 5,000 unit PO DAILY #30 cap 09/06/21 carvediloL [Coreg*] 25 mg PO BID #60 tab 09/06/21 Gabapentin [Neurontin*] 100 mg PO BID 30 Days #90 cap 09/26/21 Docusate [Colace Cap*] 100 mg PO BID 12/14/21 Blood Sugar Diagnostic [Glucose Test Strip] 1 each MC 30 MIN BEFORE HS #100 strip 12/17/21 Diabetic Supplies,Miscell [Cequr Simplicity Auto Former Machine Operator] 1 each MC DAILY 30 Days 12/17/21 Furosemide [Lasix*] 40 mg PO BIDL #60 tab 12/17/21 Insulin Glargine,Hum.rec.anlog [Semglee] 20 unit SQ BEDTIME #10 ml 12/17/21 Lancets/Blood Glucose Strips [Gojji Lancet 30G-Gluc Tst Strp] 1 each MC 30 MIN BEFORE HS #100 strip 12/17/21 - Past Medical/Surgical History Diabetic: Yes -: Diabetes mellitus type 2 -: High Cholesterol -: Hypertension -: CKD with proteinuria followed by Dr. Rojas -: Diastolic CHF Past Surgical History: Reviewed- Non-Contributory Psychosocial/ Personal History: Patient lives at home alone. - Family History Father -: Diabetes Mother -: Stroke - Social History Smoking Status: Never smoker Alcohol use: No CD- Drugs: No Caffeine use: No Place of Residence: Home Review of Systems General: Malaise, Other (Poor appetite ) Eyes: Unremarkable ENT: Other (Dental pain ) Respiratory: Unremarkable Cardiovascular: Unremarkable Gastrointestinal: Nausea, Vomiting, Abdominal Pain, Distention Genitourinary: Unremarkable Musculoskeletal: Unremarkable Integumentary: Unremarkable Neurological: Unremarkable Lymphatics: Unremarkable Physical Examination - Physical Exam General: Alert, In no apparent distress, Oriented x3, Mild distress HEENT: Atraumatic, PERRLA, Mucous membr. moist/pink, EOMI, Sclerae nonicteric Neck: Supple, 2+ carotid pulse no bruit, No LAD, Without JVD or thyroid abnormality Respiratory: Clear to auscultation bilaterally, Normal air movement Cardiovascular: No edema, Regular rate/rhythm, Normal S1 S2 Capillary refill: <2 Seconds Gastrointestinal: Normal bowel sounds, Distended, Tenderness Musculoskeletal: No clubbing, No swelling, No contractures, No tenderness Integumentary: No rashes, No breakdown, No significant lesion Neurological: Normal gait, Normal speech, Normal strength at 5/5 x4 extr, Normal tone, Normal affect Lymphatics: No axilla or inguinal lymphadenopathy - Studies Laboratory Data (last 24 hrs) 02/12/22 12:46: Sodium 119 L*, Potassium 3.9, BUN 99 H, Creatinine 10.50 H*, Glucose 114 H, Total Bilirubin 0.4, AST 23, ALT 35, Alkaline Phosphatase 97, Lipase 268 02/12/22 12:46: WBC 16.40 H, Hgb 11.4 L, Hct 33.3 L, Plt Count 402 Assessment and Plan - Plan -- Severe reflux esophagitis. Noted on CT imaging. Patient placed on Protonix. Gastroenterology consulted. Will await further recs --Intractable nausea and vomiting. Antiemetics on board. Further management per marker hand. -- Dental pain\Abd pain. We will manage pain with current pain medication regimen. --DM2. BS monitoring with sliding scale insulin and insulin glargine --ESRD. Patient not on dialysis. Nephrology consulted. Will await further recommendations. --Diabetic neuropathy. Continue home medication. --Hypertension. Poorly controlled. Continue home medications and labetalol as needed. --Anemia of chronic disease. H&H stable. We will continue to monitor hemoglobin and transfuse if less than 7.0. --Hyponatremia\hypomagnesemia. Replete prn. Further management per complaint operator. --DVT prophylaxis with heparin subQ. Discharge Plan: Home Plan to discharge in: Greater than 2 days - Advance Directives Does patient have a Living Will: No Does patient have a Durable POA for Healthcare: No - Code Status/Comfort Care Code Status Assessed: Yes Code Status: Full Code Physician Review: Patient Assessed, Agree with Above Assessment and Plan Critical Care: No
[2022-02-12] MEDS ORDERED: NACHLORIDE 0.45% 1,000 ML IV ONE (17:36)
[2022-02-12] MEDS ORDERED: PIPERACIL/TAZO 2.25 GM VIAL IV ONE (17:36)
[2022-02-12] MEDS ORDERED: NA CHLORIDE 0.9% 100 ML IV ONE (17:37)
[2022-02-12 18:53] LABS: SARS-CoV-2 Antigen Rapid Res Negative (Negative)
[2022-02-12 19:21] LABS: Phosphorus 7.7 mg/dL (2.5-4.9)
[2022-02-12 19:26] LABS: Magnesium 1.1 mg/dL (1.8-2.4)
[2022-02-12] MEDS ORDERED: Magnesium Sulfate 2gm IVPB 2 G/50 ML BAG IV ONE (19:34)
[2022-02-12] MEDS ORDERED: MAGNESIUM SULFATE 1 gm IVPB 1 GM/100 ML BAG IV ONE (19:41)
[2022-02-12] MEDS ORDERED: D5W 1,000 ML with NA BICARB 8.4% 150 MEQ IV SCH ×2 (20:00)
[2022-02-12] MEDS ORDERED: carvediloL 6.25 MG TAB ONE (20:51)
[2022-02-12] MEDS ORDERED: D5 0.45 NS 0 ML IV ONE (20:51)
[2022-02-12] MEDS ORDERED: PANTOPRAZOLE 40 MG INJ ONE ×2 (20:51→20:56)
[2022-02-12] MEDS ORDERED: HEPARIN 5000 UNIT/ML 1 ML VIAL ONE (20:56)
[2022-02-12] MEDS ORDERED: INSULIN GLARGINE 100 UNIT/ML SQ ONE (20:58)
[2022-02-12] MEDS: PANTOPRAZOLE 40 MG INJ IVP SCH (21:00)
[2022-02-12] MEDS: INSULIN GLARGINE 100 UNIT/ML SQ SCH (21:00)
[2022-02-12] MEDS: HEPARIN 5000 UNIT/ML 1 ML VIAL SQ SCH (21:00)
[2022-02-12] MEDS: carvediloL 25 MG TAB PO SCH (21:00)
[2022-02-12] MEDS: DOCUSATE NA 100 MG CAP PO SCH (21:00)
[2022-02-12] MEDS ORDERED: DOCUSATE NA 100 MG CAP PO ONE (21:18)
[2022-02-12] MEDS ORDERED: D5W 1,000 ML IV ONE (21:19)
[2022-02-12 22:45] VITALS: BMI 35.7
[2022-02-12] MEDS: GABAPENTIN 100 MG CAP PO SCH (23:53)
[2022-02-13 06:14] LABS: Absolute Lymphocytes (CBC) 1.6 K/uL (0.7-4.9); Hematocrit 27.8 % (39.6-49.0); Lymphocytes % 15.8 % (15.3-44.8); MCV 78.8 fL (80-100); MPV 6.9 fL (7.6-11.3); RBC Red Blood Cell Count 3.53 M/uL (4.33-5.43)
[2022-02-13 06:34] LABS: Potassium 3.5 mmol/L (3.5-5.1)
[2022-02-13] MEDS ORDERED: HYDRALAZINE HCL 20 MG/ML VIAL IV ONE (08:00)
[2022-02-13] MEDS ORDERED: PNEUMOCOCCAL VACCINE 0.5 ML IMVAC ONE (08:00)
[2022-02-13] MEDS: PANTOPRAZOLE 40 MG INJ IVP SCH ×2 (08:23→21:07)
[2022-02-13] MEDS: CALCITROL 0.25 MCG CAP PO SCH (08:24)
[2022-02-13] MEDS: carvediloL 25 MG TAB PO SCH ×2 (08:24→21:07)
[2022-02-13] MEDS: DOCUSATE NA 100 MG CAP PO SCH ×2 (08:24→21:08)
[2022-02-13] MEDS: HEPARIN 5000 UNIT/ML 1 ML VIAL SQ SCH ×2 (08:24→21:08)
[2022-02-13] MEDS: GABAPENTIN 100 MG CAP PO SCH ×2 (08:24→21:08)
[2022-02-13] MEDS: VITAMIN D 5,000 UNIT CAP PO SCH (08:24)
[2022-02-13] MEDS ORDERED: FUROSEMIDE 40 MG TABLET PO SCH (09:00)
[2022-02-13] MEDS ORDERED: ASPIRIN EC 81 MG TAB PO SCH (09:00)
[2022-02-13] MEDS ORDERED: HYDRALAZINE HCL 20 MG/ML VIAL IV PRN (09:36)
--- NOTE | 2022-02-13 10:27 | P.CNS ---
Date of Consult: 02/13/22 Reason for Consult: Renal failure Requesting Physician: Dudley Ruiz Chief Complaint: N\V\Abd pain History of Present Illness: Patient is 46-year-old male with history of uncontrolled Type II diabetes mellitus, chronic hypertension, non compliance with medication in the past, progressive advanced CKD who had been admitted a few times in the past several months. Last time pt was seen he was admitted with some dyspnea and peripheral edema felt to be related to his advanced kidney disease and some CHF component. He did f/u with Dr. Rojas since that hospitalization and underwent a Lt UE AVF placement last mo. Pt now admitted with nausea, vomiting, inability to hold anything down, some vague abdominal pain and other. He reports symptoms were relatively sub-acute. However, pt's renal function tests on admission were concerning for significant renal failure with metabolic derangements. This AM, pt reports nausea is better after medication but he feels weak and tired. Allergies No Known Allergies Allergy (Verified 10/19/17 00:45) Home Medications: Cholecalciferol (Vitamin D3) [Vitamin D 5,000 IU Cap*] 5,000 unit PO DAILY #30 cap 09/06/21 carvediloL [Coreg*] 25 mg PO BID #60 tab 09/06/21 Gabapentin [Neurontin*] 100 mg PO BID 30 Days #90 cap 09/26/21 Docusate [Colace Cap*] 100 mg PO BID 12/14/21 Blood Sugar Diagnostic [Glucose Test Strip] 1 each MC 30 MIN BEFORE HS #100 strip 12/17/21 Diabetic Supplies,Miscell [Cequr Simplicity Perfect Binder Operator] 1 each MC DAILY 30 Days 12/17/21 Furosemide [Lasix*] 40 mg PO BIDL #60 tab 12/17/21 Insulin Glargine,Hum.rec.anlog [Semglee] 20 unit SQ BEDTIME #10 ml 12/17/21 Lancets/Blood Glucose Strips [Dhavalji Lancet 30G-Gluc Tst Strp] 1 each MC 30 MIN BEFORE HS #100 strip 12/17/21 - Past Medical/Surgical History Diabetic: Yes -: Diabetes mellitus type 2 -: High Cholesterol -: Hypertension -: CKD with proteinuria followed by Dr. Rojas -: Diastolic CHF Psychosocial/ Personal History: Patient lives at home alone. - Family History Father Medical History: Diabetes Mother Medical History: Stroke - Social History Alcohol use: No CD- Drugs: No Caffeine use: No Place of Residence: Home Review of Systems General: Weakness Eyes: Unremarkable ENT: Unremarkable Respiratory: Shortness of Breath Cardiovascular: Unremarkable Gastrointestinal: Nausea, Vomiting, Abdominal Pain, Other (Loose stools chronically) Genitourinary: Unremarkable Musculoskeletal: Unremarkable Integumentary: Unremarkable Neurological: Unremarkable Physical Examination Temp Pulse Resp BP Pulse Ox 97.8 F 75 18 190/89 H 99 02/13/22 08:00 02/13/22 08:00 02/13/22 08:00 02/13/22 08:00 02/13/22 08:00 General: Alert, In no apparent distress, Oriented x3 HEENT: Atraumatic, Normocephalic, PERRLA Neck: Supple Respiratory: Clear to auscultation bilaterally, Normal air movement Cardiovascular: No edema, Normal pulses, Regular rate/rhythm, Normal S1 S2 Gastrointestinal: Other (Soft, mild distention, mild lower abd tenderness to palpation) Musculoskeletal: No clubbing, No swelling, No contractures Integumentary: No rashes, No breakdown Neurological: Normal speech, Normal tone, Normal affect Laboratory Data (last 24 hrs) 02/12/22 12:46: Sodium 119 L*, Potassium 3.9, BUN 99 H, Creatinine 10.50 H*, Glucose 114 H, Total Bilirubin 0.4, AST 23, ALT 35, Alkaline Phosphatase 97, Lipase 268 02/12/22 12:46: WBC 16.40 H, Hgb 11.4 L, Hct 33.3 L, Plt Count 402 Conclusions/Impression: 1. Abnormal results of kidney function studies 2. Stage III ARF sumperimposed on CKD V 3. 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 Marked azotemia with possible early uremia 5. Metab acidosis 6. Hypertensive CKD Stage V 7. Non hypotonic hyponatremia 8. Anemia 2nd to CKD, other -Pt has had progressive CKD but the additional reduction in GFR seen on admission may reflect some superimposed acute renal failure 2nd to possible pre- renal state vs ATN 2nd to proteinuria, other. Renal u/s in August showed preserved kidney sizes but increased renal echogenicity. -Pt's symptoms and metab chemistries are concerning for development of early uremia and pt would benefit from initiation of dialysis for metabolic clearance. -Unfortunately, pt's Lt radiocephalic AVF was placed just 1 mo ago and does not appear fully mature for cannulation. Will have General Surgery place a Rt IJ TDC to initiate dialysis. -Will cont some gentle IVF with bicarb added given bicarb deficit until HD initiated tmrw post line placement. -Will trend Na levels, will cont isotonic IVF and Na level should improve post HD with dialysate Na higher than serum. -No significant current signs of extravascular volume overload but will monitor closely, BNP difficult to interpret in the setting of renal failure -BP accelerated in the setting of his renal failure, other. Add CCB. Cont other PRN meds, lower rate of IVF. F/u post HD. -Will add ACEi or ARB once HD initiated. -Will check iron studies, will dose with NANCY for Hb < 10 if T sat < 20% and BP not accelerated. Thank you for this referral, Elliott Bajwa MD, EUGENIE
[2022-02-13] MEDS: AMLODIPINE 5 MG TAB PO SCH (10:58)
[2022-02-13] MEDS: NACHLORIDE 0.45% 1,000 ML with NA BICARB 8.4% 75 MEQ IV SCH ×2 (10:58)
[2022-02-13] MEDS: CALCIUM ACETATE 667 MG TAB PO SCH ×2 (11:00→17:21)
[2022-02-13] MEDS: ONDANSETRON 4 MG/2 ML VIAL IV PRN (11:09)
[2022-02-13 16:39] LABS: Specific Gravity 1.006 (1.005-1.030); Urine Bacteria <20 /HPF (<20); Urine Bilirubin NEGATIVE (Negative); Urine Blood 1+ (Negative); Urine Clarity Turbid (Clear); Urine Color Colorless (Yellow); Urine Glucose 1+ (Negative); Urine Protein 2+ (Negative); Urine RBC <5 /HPF (None Seen); Urine Urobilinogen Normal (Normal); Urine pH 5.5 (5.0-7.0)
--- NOTE | 2022-02-13 17:55 | P.PN ---
Date of Service: 02/13/22 Subjective: no acute events overnight feeling slightly ROS: 10 point ROS as noted above, otherwise negative Physical exam GEN: Alert, oriented, NAD HEENT: Normal conjunctiva, sclera anicteric CV: Regular rate and rhythm, 1+ bilateral lower extremity edema Pulm: Nonlabored respirations on room air ABD: Soft, +epigastric tenderness, mild distention Neuro: Normal speech, normal affect Problem List ESRD, uremia epigastric pain /tenderness, suspected severe reflux esophagitis nausea/vomiting DM2 HTN Anemia of chronic disease Hyponatremia, hypomagnesemia, electrolyte abnormalities nephrology consulted patient will need initiation of dialysis AV fistula not quite mature yet will need central line, Dr. Dias consulted social science teacher consulted for chair time assistance nausea/vomiting, suspected reflux esophagitis likely exacerbated by n/v from uremia GI consulted Hgb decreased, pt denies blood in stool, no black stool Protonix BID confirm home meds, restart as appropriate DVT prophylaxis Code: full Dispo: home, ~2-3 days, pending chair time Time Spent Managing Pts Care (In Minutes): 35
--- NOTE | 2022-02-13 19:41 | CON ---
Date of Consultation: 02/13/2022 Reason For Service: Renal failure and need for hemodialysis catheter. History Of Present Illness: This is the case of a 46-year-old patient, admitted to the hospital for different reasons. He was admitted with nausea, abdominal pain, also found to have renal insufficien cy in need for hemodialysis. He had a fistula placed in [place] on his left forearm region, but last month, the Renal Service believed it did not sufficiently matured yet and they wanted a hemodialysis tunneled catheter. Review of Systems: No nausea, no vomiting today. Pain subsided in the abdomen. No shortness of breath. No chest pain. Ten points otherwise unremarkable. Allergies: NONE. Medications: Reviewed including Neurontin, Lasix, furosemide, Coreg. Past Medical History: Includes diabetes, high cholesterol, hypertension, congestive heart failure. Social History: He does not smoke. He does not drink alcohol. Past Surgical History: AV fistula in the left forearm. Physical Examination: General: The patient is awake, alert. HEENT: Pupils are equal and reactive. Anicteric. Neck: Supple. Chest: Clear. Heart: S1, S2. Abdomen: Soft and depressible. No guarding or rebound. Mild generalized discomfort, not as painful as he was yesterday he claims. Extremities: Good capillary refill. Over the left forearm, he has AV fistula, good thrill. No infe ction. Hands with good flow and no cyanosis. Laboratory Data: Blood work shows a WBC count of going down from 16 to 10 with hemoglobin of 9.8 and platelets 329. Sodium is 124, creatinine is 10.3. Assessment: A 46-year-old patient in need of hemodialysis. The benefits, alternatives, and risks of placement of a tunneled hemodialysis catheter were discussed with the patient, which include, but no t limited to infection, bleeding, damage to adjacent structures, anesthesia complication, hemothorax, pneumothorax, cardiac tamponade, cardiac arrhythmias, PE, DVTs, infection, VA and even . He al so understands this may not relieve any symptoms. He might need more than one surgical intervention. He understands to follow with his vascular service to check on his AV fistula. VENECIA/SONUL Voice ID: [id number] Report ID: [id number]
[2022-02-13] MEDS: INSULIN GLARGINE 100 UNIT/ML SQ SCH (21:00)
[2022-02-14] MEDS: NACHLORIDE 0.45% 1,000 ML with NA BICARB 8.4% 75 MEQ IV SCH ×2 (03:55)
[2022-02-14 06:00] LABS: Absolute Lymphocytes (CBC) 1.9 K/uL (0.7-4.9); Hematocrit 29.1 % (39.6-49.0); Lymphocytes % 18.6 % (15.3-44.8); MCV 78.4 fL (80-100); MPV 6.9 fL (7.6-11.3); RBC Red Blood Cell Count 3.72 M/uL (4.33-5.43)
[2022-02-14 06:19] LABS: Protime INR 1.05
[2022-02-14 06:24] LABS: Albumin 2.8 g/dL (3.4-5.0); Magnesium 1.7 mg/dL (1.8-2.4); Phosphorus 7.9 mg/dL (2.5-4.9); Potassium 3.6 mmol/L (3.5-5.1)
--- NOTE | 2022-02-14 06:47 | P.PN ---
Date of Service: 02/14/22 Subjective: no nausea/vomiting epigastric pain much improved no BM feeling better overall ROS: 10 point ROS as noted above, otherwise negative Physical exam GEN: Alert, oriented, NAD HEENT: Normal conjunctiva, sclera anicteric CV: Regular rate and rhythm, trace to 1+ bilateral lower extremity edema Pulm: Nonlabored respirations on room air ABD: Soft, +mild epigastric tenderness, nondistended Neuro: Normal speech, normal affect Problem List ESRD, uremia epigastric pain /tenderness, suspected severe reflux esophagitis nausea/vomiting DM2 HTN Anemia of chronic disease Hyponatremia, hypomagnesemia, electrolyte abnormalities nephrology consulted patient will need initiation of dialysis AV fistula not quite mature yet will need central line, Dr. Dias consulted; planned for 02/14 social worker assistant consulted for chair time assistance nausea/vomiting, suspected reflux esophagitis likely exacerbated by n/v from uremia GI consulted, no urgent scope needed at this time pt denies blood in stool, no black stool; hgb stable Protonix BID confirm home meds, restart as appropriate DVT prophylaxis Code: full Dispo: home, ~2-3 days, pending chair time Time Spent Managing Pts Care (In Minutes): 35
[2022-02-14] MEDS: CALCIUM ACETATE 667 MG TAB PO SCH ×3 (08:00→17:39)
[2022-02-14] MEDS ORDERED: NACHLORIDE 0.45% 1,000 ML with NA BICARB 8.4% 75 MEQ IV SCH ×2 (08:30)
[2022-02-14] MEDS: PANTOPRAZOLE 40 MG INJ IVP SCH ×2 (09:54→21:20)
[2022-02-14] MEDS: CALCITROL 0.25 MCG CAP PO SCH (09:54)
[2022-02-14] MEDS: carvediloL 25 MG TAB PO SCH ×2 (09:54→21:20)
[2022-02-14] MEDS: VITAMIN D 5,000 UNIT CAP PO SCH (09:54)
[2022-02-14] MEDS: DOCUSATE NA 100 MG CAP PO SCH ×2 (09:54→21:20)
[2022-02-14] MEDS: GABAPENTIN 100 MG CAP PO SCH ×2 (09:54→21:21)
[2022-02-14] MEDS: AMLODIPINE 5 MG TAB PO SCH (09:54)
[2022-02-14] MEDS: HEPARIN 5000 UNIT/ML 1 ML VIAL SQ SCH ×2 (09:55→21:20)
--- NOTE | 2022-02-14 10:29 | P.PN ---
Nephrology note; (S) Pt reports nausea and abdominal discomfort better, feels hungry, BP better after meds this AM and recheck on Rt upper arm. Pt NPO otherwise for surgery this AM. General: Alert, In no apparent distress, Oriented x3 HEENT: Atraumatic, Normocephalic, PERRLA Neck: Supple Respiratory: Clear to auscultation bilaterally, Normal air movement Cardiovascular: No edema, Normal pulses, Regular rate/rhythm, Normal S1 S2 Gastrointestinal: Other (Soft, mild distention, mild lower abd tenderness to palpation) Musculoskeletal: No clubbing, No swelling, No contractures Lt radiocephalic AVF with thrill and bruit present Integumentary: No rashes, No breakdown Neurological: Normal speech, Normal tone, Normal affect Laboratory Data (last 24 hrs) Reviewed Conclusions/Impression: 1. Abnormal results of kidney function studies 2. Stage III ARF sumperimposed on CKD V 3. 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 Marked azotemia with possible early uremia 5. Metab acidosis 6. Hypertensive CKD Stage V 7. Non hypotonic hyponatremia 8. Anemia 2nd to CKD, other -Pt has had progressive CKD but the additional reduction in GFR seen on admission may reflect some superimposed acute renal failure 2nd to possible pre- renal state vs ATN 2nd to proteinuria, other. Renal u/s in August showed preserved kidney sizes but increased renal echogenicity. -Pt's symptoms and metab chemistries are concerning for development of early uremia and pt would benefit from initiation of dialysis for metabolic clearance. -Unfortunately, pt's Lt radiocephalic AVF was placed just 1 mo ago and while demonstrating decent thrill and good bruit, would benefit from more time to mature prior to cannulation. Will have General Surgery place a Rt IJ TDC to initiate dialysis. Initial HD orders placed for today. -Will d/c IVF, pt will receive bicarb load with HD. -Na level slowly improved on isotonic IVF, and Na level should improve further post HD with dialysate Na higher than serum. -No significant current signs of extravascular volume overload but will monitor closely, BNP difficult to interpret in the setting of renal failure. Non oliguric, so ok to resume loop diuretic therapy. -BP accelerated in the setting of his renal failure, other. Added CCB. Cont other PRN meds, d/c IVF. F/u post HD. -Will add ACEi or ARB once HD initiated. -T sat > 20%. Hb > 10 today, will initiate IV iron and NANCY therapy at his OP unit per protocols to maintain Hb 10-11. Dispo: OP chair-time pending, will f/u with [facility] to determine where they can accomodate him. Elliott Bajwa MD, EUGENIE
[2022-02-14] MEDS ORDERED: KETOROLAC 30 MG/ML INJ ONE (12:30)
[2022-02-14] MEDS ORDERED: propofoL 200 MG/20 ML VIAL IV ONE (12:30)
[2022-02-14] MEDS ORDERED: ONDANSETRON 4 MG/2 ML VIAL ONE (12:30)
[2022-02-14] MEDS ORDERED: FENTANYL CITR 100 MCG/2 ML ONE (12:30)
[2022-02-14] MEDS ORDERED: LIDOCAINE 2% MPF 5 ML VIAL ONE (12:30)
[2022-02-14] MEDS ORDERED: MIDAZOLAM HCL 2 MG/2 ML INJ ONE (12:30)
[2022-02-14] MEDS ORDERED: HEPARIN 5000 UNIT/ML 1 ML VIAL ONE (12:54)
[2022-02-14] MEDS ORDERED: BUPIVACAINE 0.5% PF 10 ML VIAL ONE (12:54)
[2022-02-14] MEDS ORDERED: NS 0.9% VIAL 10 ML ONE (12:55)
[2022-02-14] MEDS ORDERED: NA CHLORIDE 0.9% 100 ML IV ONE (12:55)
[2022-02-14] MEDS ORDERED: NA CHLORIDE 0.9% 500 ML ONE (13:00)
[2022-02-14] MEDS ORDERED: CEFAZOLIN SODIUM 1 GM/VIAL ONE (13:28)
--- NOTE | 2022-02-14 14:37 | P.BOP ---
Preoperative diagnosis: ESRD Postoperative diagnosis: same Primary procedure: 1. Placement of HD cuffed catheter Secondary procedure: 2. Interpretation of fluoroscopy Other procedure(s): 3. Right neck fluoroscopy Estimated blood loss: <10cc Specimen: none Findings: as above Anesthesia: General Complications: None Implants: HD cuffed hemosplit Transferred to: Recovery Room Condition: Good
--- NOTE | 2022-02-14 15:18 | RAD REPORT ---
EXAM DESCRIPTION: RAD - Fluoroscopy <1 Hour - 02/14/2022 3:11 pm CLINICAL HISTORY: Venous catheter insertion. HEMODIALYSIS PORT COMPARISON: No comparisons FINDINGS: Fluoroscopic imaging is submitted from placement of a venous catheter. Details of the pro cedure not available. Fluoroscopy time: 0.4 minutes
--- NOTE | 2022-02-14 15:23 | RAD REPORT ---
EXAM DESCRIPTION: RAD - Chest Single View - 02/14/2022 3:10 pm CLINICAL HISTORY: HD catheter placement Chest pain. COMPARISON: Chest Single View dated 01/28/2022; Chest Single View dated 12/14/2021; Chest Single View dated 09/25/2021; Chest Single View dated 09/05/2021 FINDINGS: Portable technique limits examination quality. Right-sided venous catheter has tip in the SVC. No pneumothorax is seen. The lungs are clear.The hear t is normal in size. IMPRESSION: No pneumothorax is present.
--- NOTE | 2022-02-14 19:26 | OP ---
Date of Procedure: 02/14/2022 Surgeon: Mic Dias MD Preoperative Diagnosis: End-stage renal disease. Postoperative Diagnosis: End-stage renal disease. Procedures: 1.Placement of a hemodialysis cuff catheter. 2.Interpretational fluoroscopy. 3.Right neck fluoroscopy. Estimated Blood Loss: Less than 10 cc. Specimen: None. Anesthesia: General plus local. Implant: A hemodialysis catheter cuff HemoSplit. Indications: This is a case of a male who comes to us with renal failure. He had a fistula placed i [facility], but it has not matured yet so he comes to this hospital in need of hemodialysis and I was asked to put a HemoSplit hemodialysis catheter cuff on the patient for an urgent hemodialysis. The b enefits, alternatives, and risks of hemodialysis HemoSplit catheter placement was explained to the todd timmons, which includes but is not limited to infection, bleeding, damage to adjacent structures, anest hesia complication, hemothorax, pneumothorax, pericardial tamponade, pericarditis, DVT, PE, sepsis, M I, and even . He also understands this might not relieve his symptoms and he might need more th an one surgical intervention. He also understands the moment it is not needed anymore, we encouraged him to come back to the office for removal with the approval of his renal doctor. Description Of Procedure: The patient was brought to the operating room and placed in supine positio n. Anesthesia was done without complication. Right chest and neck were prepped and draped in steril e fashion. A time-out was called. Local anesthesia was applied, followed by insertion of an 18-gaug e needle in the right internal jugular vein at the first attempt. This was after using an ultrasound of the neck, making sure that the vein is a functional vein. Then under direct visualization, this needle was placed in. A guidewire was passed through, patient was in Trendelenburg position already. Needle was removed. We tunneled the catheter from the right upper chest into the incision in the n joe area and then after that serial dilators under fluoroscopy through the guidewire. Guidewire was removed after we placed the introducer sheath. The catheter was placed through the introducer sheath and the catheter sheath was peeled off. This was done in Trendelenburg position. Excellent backflo w and inflow. We noticed the catheter to be positioned properly. I flushed with heparinized solutio n and secured in place with 2-0 nylon. Patient tolerated the procedure well. The incisions were dontrell sed with 3-0 chromic in a subcuticular fashion. Patient was brought back to normal position, sent to recovery room in stable condition and a chest x-ray was ordered stat. VENECIA/MORENO Voice ID: [id number] Report ID: [id number]
[2022-02-14] MEDS: INSULIN GLARGINE 100 UNIT/ML SQ SCH (21:00)
[2022-02-14] MEDS: ONDANSETRON 4 MG/2 ML VIAL IV PRN (21:55)
[2022-02-15 05:48] LABS: Hematocrit 26.6 % (39.6-49.0); MCV 80.1 fL (80-100); RBC Red Blood Cell Count 3.32 M/uL (4.33-5.43)
[2022-02-15 06:01] LABS: Potassium 3.4 mmol/L (3.5-5.1)
[2022-02-15] MEDS: CALCIUM ACETATE 667 MG TAB PO SCH ×3 (08:06→17:38)
[2022-02-15] MEDS: DOCUSATE NA 100 MG CAP PO SCH ×2 (08:07→20:35)
[2022-02-15] MEDS: LOSARTAN POTASSIUM 50 MG TABLET PO SCH (08:08)
[2022-02-15] MEDS: GABAPENTIN 100 MG CAP PO SCH ×2 (08:09→20:35)
[2022-02-15] MEDS: CALCITROL 0.25 MCG CAP PO SCH (08:09)
[2022-02-15] MEDS: carvediloL 25 MG TAB PO SCH ×2 (08:09→20:46)
[2022-02-15] MEDS: AMLODIPINE 5 MG TAB PO SCH (08:10)
[2022-02-15] MEDS: HEPARIN 5000 UNIT/ML 1 ML VIAL SQ SCH ×2 (08:10→20:31)
[2022-02-15] MEDS: PANTOPRAZOLE 40 MG INJ IVP SCH ×2 (08:11→20:36)
[2022-02-15] MEDS: VITAMIN D 5,000 UNIT CAP PO SCH (08:11)
[2022-02-15] MEDS ORDERED: POTASSIUM CL SA 10 MEQ TAB PO ONE (10:21)
--- NOTE | 2022-02-15 10:27 | P.PN ---
Nephrology note; (S) Pt reports tolerating first session of HD without any sig issues, he has mild soreness at site of catheter insertion. No further N/V, appetite ok. General: Alert, In no apparent distress, Oriented x3 HEENT: Atraumatic, Normocephalic, PERRLA Neck: Supple Respiratory: Clear to auscultation bilaterally, Normal air movement Cardiovascular: No edema, Normal pulses, Regular rate/rhythm, Normal S1 S2 Gastrointestinal: Other (Soft, mild distention, mild lower abd tenderness to palpation) Musculoskeletal: No clubbing, No swelling, No contractures Lt radiocephalic AVF with thrill and bruit present Integumentary: No rashes, No breakdown Neurological: Normal speech, Normal tone, Normal affect Laboratory Data (last 24 hrs) Reviewed Conclusions/Impression: 1. Abnormal results of kidney function studies 2. Stage III ARF sumperimposed on CKD V 3. 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 Marked azotemia with possible early uremia 5. Metab acidosis 6. Hypertensive CKD Stage V 7. Non hypotonic hyponatremia 8. Anemia 2nd to CKD, other -Pt has had progressive CKD but the additional reduction in GFR seen on admission may reflect some superimposed acute renal failure 2nd to possible pre- renal state vs ATN 2nd to proteinuria, other. Renal u/s in August showed preserved kidney sizes but increased renal echogenicity. -Pt's symptoms and metab chemistries are concerning for development of early uremia and pt was felt to benefit from initiation of dialysis for metabolic clearance. -Unfortunately, pt's Lt radiocephalic AVF was placed just 1 mo ago and while demonstrating decent thrill and good bruit, would benefit from more time to mature prior to cannulation. I did have General Surgery place a Rt IJ TDC to initiate dialysis. s/p initial HD yesterday, metab profile improved, 2nd session today. Plan for OP HD MWF. -Bicarb deficit improving, will receive bicarb load with dialysis -Na level slowly improved, and Na level should improve further post HD with dialysate Na higher than serum. -No significant current signs of extravascular volume overload but will monitor closely, BNP difficult to interpret in the setting of renal failure. Non oliguric, so ok to resume loop diuretic therapy on discharge. -BP initially accelerated in the setting of his renal failure, other. Added CCB and ARB. Post HD BP better improved. -T sat > 20%. Hb stable, will initiate IV iron and NANCY therapy at his OP unit per protocols to maintain Hb 10-11. Dispo: OP chair-time confirmation pending, Hep studies pending and clinic will require it prior to approval. Pt otherwise should be medically cleared for discharge post HD today but need OP HD chair time confirmation prior to discharge. Elliott Bajwa MD, EUGENIE
--- NOTE | 2022-02-15 17:43 | P.PN ---
Date of Service: 02/15/22 Subjective: s/p 2 HD tolerating well; with some dizziness/unsteadiness for a short period afterwards ROS: 10 point ROS as noted above, otherwise negative Physical exam GEN: Alert, oriented, NAD HEENT: Normal conjunctiva, sclera anicteric CV: Regular rate and rhythm, trace b/l lower extremity edema Pulm: Nonlabored respirations on room air ABD: Soft, +mild epigastric tenderness, nondistended Neuro: Normal speech, normal affect Problem List ESRD, uremia epigastric pain /tenderness, suspected severe reflux esophagitis nausea/vomiting DM2 HTN Anemia of chronic disease Hyponatremia, hypomagnesemia, electrolyte abnormalities ESRD, uremia nephrology consulted AV fistula not quite mature yet s/p central line placement by Dr. 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
[2022-02-15] MEDS: INSULIN GLARGINE 100 UNIT/ML SQ SCH (22:02)
[2022-02-16 05:52] LABS: Albumin 2.5 g/dL (3.4-5.0); Phosphorus 3.8 mg/dL (2.5-4.9); Potassium 3.6 mmol/L (3.5-5.1)
--- NOTE | 2022-02-16 06:41 | P.PN ---
Date of Service: 02/16/22 Subjective: No acute events overnight Woke up this morning very mildly dizzy/lightheaded, resolved ROS: 10 point ROS as noted above, otherwise negative Physical exam GEN: Alert, oriented, NAD HEENT: Normal conjunctiva, sclera anicteric CV: Regular rate and rhythm, no edema Pulm: Nonlabored respirations on room air ABD: Soft, minimal epigastric tenderness, nondistended Neuro: Normal speech, normal affect R tunneled central venous catheter in placed Problem List ESRD, uremia, now on HD epigastric pain /tenderness, secondary to severe reflux esophagitis nausea/vomiting DM2 HTN Anemia of chronic disease Hyponatremia, hypomagnesemia, electrolyte abnormalities ESRD, uremia nephrology consulted AV fistula not quite mature yet s/p central line placement by Dr. Dias, 02/14 s/p HD doing well psych social worker consulted for chair time assistance roller consulted waiting on hep panel results nausea/vomiting, secondary to reflux esophagitis exacerbated by n/v from uremia GI consulted, no urgent scope needed at this time pt denies blood in stool, no black stool; hgb stable Protonix BID improved tolerating renal diet DVT prophylaxis Code: full Dispo: home, ~2-3 days, pending chair time Time Spent Managing Pts Care (In Minutes): 26
--- NOTE | 2022-02-16 07:29 | RAD REPORT ---
EXAM DESCRIPTION: RAD - Chest Single View - 02/16/2022 7:05 am CLINICAL HISTORY: r/o TB, for HD set up COMPARISON: Portable February 14 TECHNIQUE: AP portable chest image was obtained 02/16/2022 7:05 am . FINDINGS: Lung volumes are very low accentuating lung parenchymal pattern accentuating heart size. N o acute infiltrate is seen. Interstitial pattern matches prior imaging. No focal lung parenchymal sca rring. No hilar mass or lymphadenopathy. Heart size normal range for shallow inspiration exam. No abn ormal vascular engorgement. No measurable pleural effusion and no pneumothorax. No acute bony abnorma lity seen. Right-sided hemodialysis catheter in place. IMPRESSION: No acute cardiopulmonary process. No chest findings to suspect current or prior TB infection.
[2022-02-16] MEDS: CALCIUM ACETATE 667 MG TAB PO SCH ×3 (08:09→16:01)
[2022-02-16] MEDS: LOSARTAN POTASSIUM 50 MG TABLET PO SCH (08:09)
[2022-02-16] MEDS: DOCUSATE NA 100 MG CAP PO SCH ×2 (08:09→21:36)
[2022-02-16] MEDS: carvediloL 25 MG TAB PO SCH ×2 (08:09→21:36)
[2022-02-16] MEDS: GABAPENTIN 100 MG CAP PO SCH ×2 (08:10→21:36)
[2022-02-16] MEDS: VITAMIN D 5,000 UNIT CAP PO SCH (08:10)
[2022-02-16] MEDS: PANTOPRAZOLE 40 MG INJ IVP SCH ×2 (08:10→21:42)
[2022-02-16] MEDS: CALCITROL 0.25 MCG CAP PO SCH (08:10)
[2022-02-16] MEDS: HEPARIN 5000 UNIT/ML 1 ML VIAL SQ SCH ×2 (08:11→21:36)
[2022-02-16] MEDS ORDERED: AMLODIPINE 5 MG TAB PO ONE (15:19)
[2022-02-16] MEDS ORDERED: GLUCAGON 1 MG/VIAL IM PRN (16:22)
[2022-02-16] MEDS ORDERED: D50W 25 GM/50 ML SYRINGE IV PRN (16:22)
[2022-02-16] MEDS ORDERED: D10W 125 ML IV PRN (16:33)
[2022-02-16] MEDS: INSULIN -REGULAR HUMAN 50 UNIT/0.5 ML ML SQ SCH ×2 (16:36→21:41)
[2022-02-16] MEDS: INSULIN GLARGINE 100 UNIT/ML SQ SCH (21:00)
[2022-02-16] MEDS ORDERED: AMLODIPINE 5 MG TAB PO SCH (21:00)
--- NOTE | 2022-02-16 22:19 | PN ---
Subjective: The patient is seen at [facility] in [place]. He is a 46-year-old male. The patient is alert, awake and comfortable. Denies any headache, nausea, or vomiting. He has no swelling. Lungs are clear. The patient denies any pain. Objective: Vital Signs: Blood pressure has been running slightly on the higher side with systolic i n the 150-170 range. He is afebrile with last temperature 97.2, pulse of about 70-80 and regular. H is respirations are around 14 on my exam and he is comfortable. His last blood pressure was 177/83, before that it was 154/81. O2 sat is 97% on room air. Lungs: Clear to auscultation. Abdomen: Soft. Extremities: No edema. Heart: Sounds are regular. Laboratory Data: Reviewed. WBC count is 7.4, hemoglobin 9.2, hematocrit 26.6, platelet count of 339 . Chemistry shows sodium 135, potassium 3.6, chloride 103, bicarb is 25, BUN is 42, creatinine is 6. 88. The patient has had dialysis since yesterday and his BUN and creatinine yesterday were 68/8.73. Magnesium at 2. Albumin of 2.7. His calcium was running low at 7.8 yesterday, 8.0 earlier today. Assessment And Plan: 1.Acute kidney injury. The patient with elevated creatinine, dialysis dependent. At this point, on dialysis, getting treatment appropriately. Metabolic acidosis resolved. Electrolytes look good. C ontinue to monitor with a plan to place in dialysis. Also discussed with him peritoneal dialysis in some detail. The patient is interested in learning more about this. 2.Diabetes mellitus, diet counseled. Continue to monitor with goal HBA1c around 7 and fingerstick g lucose around 120 or lower. Diet counseled. 3.Hypertension. Blood pressure is running on the higher side. The patient is currently on amlodipi ne at 5 mg and also on beta radu. We will go ahead and increase amlodipine to 10 mg with monitori ng. 4.Hypocalcemia, likely some vitamin D deficiency. Patient is currently on 5000 units per day. We w ill give 1 dose of ergocalciferol at 50,000 units. 5.Disposition. Awaiting placement for dialysis. Once dialysis is placed, the patient would likely be discharge and further education on peritoneal dialysis to see if the patient would find this as a better modality more suitable for his lifestyle. If that is the case, may transition him to peritone al dialysis once PD catheter is planned and placed and training completed. /MORENO Voice ID: [id number] Report ID: [id number]
[2022-02-17 05:20] LABS: Hematocrit 25.5 % (39.6-49.0); MCV 80.5 fL (80-100); MPV 6.6 fL (7.6-11.3); RBC Red Blood Cell Count 3.16 M/uL (4.33-5.43)
[2022-02-17 05:43] LABS: Magnesium 1.7 mg/dL (1.8-2.4); Potassium 3.6 mmol/L (3.5-5.1)
--- NOTE | 2022-02-17 06:05 | P.PN ---
Date of Service: 02/17/22 Subjective: stable awaiting chair time breathing comfortably denies fever/chills/diarrhea ROS: 10 point ROS as noted above, otherwise negative Physical exam GEN: Alert, oriented, NAD HEENT: Normal conjunctiva, sclera anicteric CV: Regular rate and rhythm, no edema Pulm: Nonlabored respirations on room air ABD: Soft, nontender, nondistended Neuro: Normal speech, normal affect R tunneled central venous catheter in placed Problem List ESRD, uremia, now on HD epigastric pain /tenderness, secondary to severe reflux esophagitis nausea/vomiting DM2 HTN Anemia of chronic disease Hyponatremia, hypomagnesemia, electrolyte abnormalities ESRD, uremia nephrology consulted AV fistula not quite mature yet s/p central line placement by Dr. Dias, 02/14 s/p HD doing well social media specialist consulted for chair time assistance snaker consulted waiting on hep panel results nausea/vomiting, secondary to reflux esophagitis exacerbated by n/v from uremia GI consulted, no urgent scope needed at this time pt denies blood in stool, no black stool; hgb stable Protonix BID improved tolerating renal diet DVT prophylaxis Code: full Dispo: home, ~1-2 days, pending chair time Time Spent Managing Pts Care (In Minutes): 25
[2022-02-17] MEDS: PANTOPRAZOLE 40 MG INJ IVP SCH ×2 (07:59→20:31)
[2022-02-17] MEDS: HEPARIN 5000 UNIT/ML 1 ML VIAL SQ SCH ×2 (07:59→20:13)
[2022-02-17] MEDS: CALCITROL 0.25 MCG CAP PO SCH (08:00)
[2022-02-17] MEDS: carvediloL 25 MG TAB PO SCH ×2 (08:00→20:22)
[2022-02-17] MEDS: VITAMIN D 5,000 UNIT CAP PO SCH (08:00)
[2022-02-17] MEDS: LOSARTAN POTASSIUM 50 MG TABLET PO SCH (08:00)
[2022-02-17] MEDS: DOCUSATE NA 100 MG CAP PO SCH ×2 (08:00→20:22)
[2022-02-17] MEDS: CALCIUM ACETATE 667 MG TAB PO SCH ×3 (08:00→16:37)
[2022-02-17] MEDS: GABAPENTIN 100 MG CAP PO SCH ×2 (08:01→20:22)
[2022-02-17] MEDS: AMLODIPINE 10 MG TAB PO SCH (08:01)
[2022-02-17] MEDS: INSULIN -REGULAR HUMAN 50 UNIT/0.5 ML ML SQ SCH ×4 (09:07→20:31)
[2022-02-17 18:45] LABS: HBsAG Nonreactive (Nonreactive)
[2022-02-17] MEDS: INSULIN GLARGINE 100 UNIT/ML SQ SCH (20:37)
[2022-02-17 22:31] VITALS: O2SAT 99
[2022-02-18] MEDS ORDERED: PANTOPRAZOLE 40MG TABLET PO SCH (06:45)
[2022-02-18] MEDS: VITAMIN D 5,000 UNIT CAP PO SCH (08:13)
[2022-02-18] MEDS: CALCIUM ACETATE 667 MG TAB PO SCH ×2 (08:13→12:00)
[2022-02-18] MEDS: carvediloL 25 MG TAB PO SCH (08:13)
[2022-02-18] MEDS: AMLODIPINE 10 MG TAB PO SCH (08:13)
[2022-02-18] MEDS: LOSARTAN POTASSIUM 50 MG TABLET PO SCH (08:13)
[2022-02-18] MEDS: HEPARIN 5000 UNIT/ML 1 ML VIAL SQ SCH (08:13)
[2022-02-18] MEDS: CALCITROL 0.25 MCG CAP PO SCH (08:14)
[2022-02-18] MEDS: DOCUSATE NA 100 MG CAP PO SCH (08:14)
[2022-02-18] MEDS: GABAPENTIN 100 MG CAP PO SCH (08:14)
[2022-02-18 08:51] VITALS: BP 153/67; TEMP 97.4
[2022-02-18] MEDS: INSULIN -REGULAR HUMAN 50 UNIT/0.5 ML ML SQ SCH ×2 (09:03→11:30)
--- NOTE | 2022-02-18 10:50 | P.PN ---
Nephrology note; (S) Pt seen on HD, tolerating session well, no acute issues, discharge plan discussed in detail General: Alert, In no apparent distress, Oriented x3 HEENT: Atraumatic, Normocephalic, PERRLA Neck: Supple Respiratory: Clear to auscultation bilaterally, Normal air movement Cardiovascular: No edema, Normal pulses, Regular rate/rhythm, Normal S1 S2 Gastrointestinal: Other (Soft, mild distention, mild lower abd tenderness to palpation) Musculoskeletal: No clubbing, No swelling, No contractures Lt radiocephalic AVF with thrill and bruit present Integumentary: No rashes, No breakdown Neurological: Normal speech, Normal tone, Normal affect Laboratory Data (last 24 hrs) Reviewed Conclusions/Impression: 1. Abnormal results of kidney function studies 2. Stage III ARF sumperimposed on CKD V 3. 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 Marked azotemia with possible early uremia 5. Metab acidosis 6. Hypertensive CKD Stage V 7. Non hypotonic hyponatremia 8. Anemia 2nd to CKD, other -Pt has had progressive CKD but the additional reduction in GFR seen on admission may reflect some superimposed acute renal failure 2nd to possible pre- renal state vs ATN 2nd to proteinuria, other. Renal u/s in August showed preserved kidney sizes but increased renal echogenicity. -Pt's symptoms and metab chemistries are concerning for development of early uremia and pt was felt to benefit from initiation of dialysis for metabolic clearance. -Unfortunately, pt's Lt radiocephalic AVF was placed just 1 mo ago and while demonstrating decent thrill and good bruit, would benefit from more time to mature prior to cannulation. I did have General Surgery place a Rt IJ TDC last week to initiate dialysis. s/p initial HD sessions, metab profile improved Plan for OP HD MWF, first OP treatment Wed -Bicarb deficit improving, will receive bicarb load with dialysis -Na level improved. -No significant current signs of extravascular volume overload but will monitor closely, BNP difficult to interpret in the setting of renal failure. Non oliguric, so ok to resume loop diuretic therapy on discharge. -BP initially accelerated in the setting of his renal failure, other. Added CCB and ARB. Post HD BP better better -T sat > 20%. Hb stable, will initiate IV iron and NANCY therapy at his OP unit per protocols to maintain Hb 10-11. Elliott Bajwa MD, ANTN
--- NOTE | 2022-02-18 13:09 | P.DS ---
Admission Date: 02/12/22 Discharge Date: 02/18/22 Disposition: ROUTINE DISCHARGE Discharge Condition: GOOD Reason for Admission: N\V\Abd pain Consultations: Nephrology -Dr. Rojas, Dr. Bajwa General surgery -Dr. Dias Brief History of Present Illness: 46yo M, PMH: CKD 5, HTN, DM2 with peripheral neuropathy Presented to ED due to intractable nausea and vomiting, associated with generalized abdominal pain and distention for several days. He has been unable to tolerate any p.o. intake. He was found to have worsening renal function with significantly elevated BUN, in the 90s. CT abdomen/pelvis also noted findings concerning for severe reflux esophagitis. Hospital Course: Problem List acute worsening of CKD5, now ESRD, uremia. now on HD epigastric pain /tenderness, secondary to severe reflux esophagitis nausea/vomiting secondary to uremia (resolved) DM2 HTN Anemia of chronic disease Hyponatremia, hypomagnesemia, electrolyte abnormalities Patient presented in end stage renal failure. Right tunneled catheter was placed. Nephrology initiated hemodialysis, which patient tolerated well. Hospitalization was prolonged while waiting for chair time to be set up. Blood pressure medications were adjusted. Stable for discharge home. Next dialysis to be done on Friday. Vital Signs/Physical Exam: Temp Pulse Resp BP Pulse Ox 97.4 F 80 18 153/67 H 95 02/18/22 08:00 02/18/22 08:00 02/18/22 08:00 02/18/22 08:00 02/18/22 08:00 General: Alert, In no apparent distress, Oriented x3 HEENT: EOMI, Sclerae nonicteric Respiratory: Clear to auscultation bilaterally, Normal air movement Cardiovascular: No edema, Regular rate/rhythm Gastrointestinal: Soft and benign, Non-distended, No tenderness Musculoskeletal: No contractures, No tenderness Integumentary: No significant lesion, No tenderness/swelling Neurological: Normal speech, Normal strength at 5/5 x4 extr, Normal affect Laboratory Data at Discharge: WBC 10.30 K/uL (4.3-10.9) 02/17/22 04:57 Hgb 8.7 g/dL (13.6-17.9) L 02/17/22 04:57 Hct 25.5 % (39.6-49.0) L 02/17/22 04:57 Plt Count 317 K/uL (152-406) 02/17/22 04:57 PT Cancelled 02/14/22 Unknown INR Cancelled 02/14/22 Unknown APTT 34.1 SECONDS (24.3-36.9) 02/14/22 05:40 Sodium 136 mmol/L (136-145) 02/17/22 04:57 Potassium 3.6 mmol/L (3.5-5.1) 02/17/22 04:57 BUN 50 mg/dL (7-18) H 02/17/22 04:57 Creatinine 7.40 mg/dL (0.55-1.3) H* 02/17/22 04:57 Glucose 199 mg/dL (74-106) H 02/17/22 04:57 Phosphorus 3.8 mg/dL (2.5-4.9) 02/16/22 05:11 Magnesium 1.7 mg/dL (1.8-2.4) L 02/17/22 04:57 Total Bilirubin 0.4 mg/dL (0.2-1.0) 02/12/22 12:46 AST 23 U/L (15-37) 02/12/22 12:46 ALT 35 U/L (12-78) 02/12/22 12:46 Alkaline Phosphatase 97 U/L (45-117) 02/12/22 12:46 Lipase 268 U/L (73-393) 02/12/22 12:46 Home Medications: Cholecalciferol (Vitamin D3) [Vitamin D 5,000 IU Cap*] 5,000 unit PO DAILY #30 cap 09/06/21 carvediloL [Coreg*] 25 mg PO BID #60 tab 09/06/21 Gabapentin [Neurontin*] 100 mg PO BID 30 Days #90 cap 09/26/21 Docusate [Colace Cap*] 100 mg PO BID 12/14/21 Blood Sugar Diagnostic [Glucose Test Strip] 1 each MC 30 MIN BEFORE HS #100 s trip 12/17/21 Diabetic Supplies,Miscell [Cequr [employer]] 1 each MC DAILY 30 Days 12/17/21 Furosemide [Lasix*] 40 mg PO BIDL #60 tab 12/17/21 Insulin Glargine,Hum.rec.anlog [Semglee] 20 unit SQ BEDTIME #10 ml 12/17/21 Lancets/Blood Glucose Strips [Gerajji Lancet 30G-Gluc Tst Strp] 1 each MC 30 MIN BEFORE HS #100 strip 12/17/21 Amlodipine [Norvasc*] 10 mg PO DAILY 30 Days #30 tab 02/18/22 Calcitrol [Rocaltrol*] 2 cap PO DAILY 30 Days #60 cap 02/18/22 Calcium Acetate [Phoslo*] 667 mg PO TIDWM 30 Days #90 tab 02/18/22 Losartan Potassium [Cozaar*] 50 mg PO DAILY 30 Days #30 tab 02/18/22 Omeprazole [Prilosec] 40 mg PO DAILY 30 Days #30 cap 02/18/22 New Medications: Losartan Potassium [Cozaar*] 50 mg PO DAILY 30 Days #30 tab Amlodipine [Norvasc*] 10 mg PO DAILY 30 Days #30 tab Calcium Acetate [Phoslo*] 667 mg PO TIDWM 30 Days #90 tab Omeprazole [Prilosec] 40 mg PO DAILY 30 Days #30 cap Calcitrol [Rocaltrol*] 2 cap PO DAILY 30 Days #60 cap Physician Discharge Instructions: Patient presented in end stage renal failure. Right tunneled catheter was placed. Nephrology initiated hemodialysis, which patient tolerated well. Hospitalization was prolonged while waiting for chair time to be set up. Blood pressure medications were adjusted. Stable for discharge home. Next dialysis to be done on Friday. Followup: Ramon Romo MD [Primary Care Provider] - (Please call to schedule an appointment.) Time spent managing pt's care (in minutes): 40
--- NOTE | 2022-02-18 15:11 | PN ---
Date of Progress Note: 02/18/2022 Diagnosis: History of hemodialysis catheter. Subjective: The patient is doing well. No complaints. Chest is supple. There was no bleeding. Objective: Chest: Bilateral breath sounds. Extremities: Arm AV fistula still have a thrill. Plan: He was advised the importance of removing the HemoSplit whenever that fistula is mature and is ready to be used. He was advised if he goes home to come back to us or to his vascular surgeons to remove that HemoSplit hemodialysis catheter due to the risks of DVTs the future. He unders tood. We will see the patient mikalglenny CUADRA/MORENO Voice ID: [id number] Report ID: [id number]
[2022-02-23] MEDS ORDERED: DRISDOL (VITAMIN D=ERGOCALCIFEROL) 50000 UNIT CAP PO ONE (15:29)
== END 2022-02-18 12:59 | disposition home or self-care (01) | DRG 674 ==
LOC: ER 11:54 → ERHOLD 17:16 → 4TH 22:46 → 2ND 02-15 21:05
PROVIDERS: ADMIT Hospitalist; ATTEND Hospitalist
PROC: 02HV33Z Insertion of Infusion Device into Superior Vena Cava, Percutaneous Approach (ICD-10-PCS; 2022-02-14)
PROC: B5181ZA Fluoroscopy of Superior Vena Cava using Low Osmolar Contrast, Guidance (ICD-10-PCS; 2022-02-14)
PROC: 5A1D70Z Performance of Urinary Filtration, Intermittent, Less than 6 Hours Per Day (ICD-10-PCS; 2022-02-14)
PROC: 0JH63XZ Insertion of Tunneled Vascular Access Device into Chest Subcutaneous Tissue and Fascia, Percutaneous Approach (ICD-10-PCS; principal; 2022-02-14 15:00)
DX: N17.9 Acute kidney failure, unspecified (principal); E87.1 Hypo-osmolality and hyponatremia; I50.32 Chronic diastolic (congestive) heart failure; I13.2 Hypertensive heart and chronic kidney disease with heart failure and with stage 5 chronic kidney disease, or end stage renal disease; E87.20 Acidosis, unspecified; K21.00 Gastro-esophageal reflux disease with esophagitis, without bleeding; N18.6 End stage renal disease; E11.22 Type 2 diabetes mellitus with diabetic chronic kidney disease; E11.42 Type 2 diabetes mellitus with diabetic polyneuropathy; D63.1 Anemia in chronic kidney disease; E83.42 Hypomagnesemia; E83.51 Hypocalcemia; E86.0 Dehydration; K08.89 Other specified disorders of teeth and supporting structures; Z99.2 Dependence on renal dialysis; Z60.2 Problems related to living alone; Z79.4 Long term (current) use of insulin; Z79.01 Long term (current) use of anticoagulants; Z79.899 Other long term (current) drug therapy; Z20.822 Contact with and (suspected) exposure to COVID-19
CPT/HCPCS: 36415; 71045; 74018; 74176; 76000; 80048; 80053; 80069; 81001; 82947; 83540; 83690; 83735; 83880; 84100; 84466; 85025; 85027; 85610; 85730; 86317; 86704; 86803; 87086; 87088; 87340; 87804; 87811; 90935; 96361; 96365; 96367; 96375; 99285; A4216; C1752; C9113; J0360; J0690; J1644; J1815; J2001; J2250; J2405; J2543; J2704; J3010; J3475; J7030; J7040; J7799; Q0162

== ENCOUNTER 2022-03-01 07:47 | Emergency (ER) | payer BC ==
--- OUTSIDE RECORDS SUMMARY | 2022-03-01 07:52 | XMS REPORT | Continuity of Care Document ---
:1975 Author Organization [facility] t Address [address] [place] [address] Care Team Providers Name Role Phone YISSEL RITA JEFFREY Primary Care Physician Unavailable Gisele Lynn MA Attending Clinician Unavailable Asked, No Pcp Attending Clinician Unavailable Gorge TOMLINC, Rochelle Gomez Attending Clinician [phone] Tabatha Katz MA Attending Clinician Unavailable Antoinette MEDRANO, April Attending Clinician Unavailable Dyllan Albert MD Attending Clinician Kamilla Tello MA Attending Clinician Unavailable Rashad HODGES, Carolyn Thompson Attending Clinician [phone] Whitney Dow Attending Clinician Desi Cabrera RN Attending Clinician Unavailable TURNER GARCIA Attending Clinician [...] Added automatic ally from request for surgery [id number] No known No known Disease Unive rs active active ity of problems problems [facility] Allergies, Adverse Reactions, Alerts Allergy Allergy Status Severity Reaction(s) Onset Inactive Treating Comm ents Source Name Type Date Date Clinician NO KNOWN Drug Active Univers ALLERGIE Class ity of S [facility] Family History Family Member Diagnosis Comments Start Date Stop Date Source Natural father No Known Problems Met [facility] Natural mother Stroke [facility] Social History Social Habit Start Date Stop Date Quantity Comments Source Exposure to Not sure University SARS-CoV-2 [facility] (event) [place] Alcohol intake 2022-02-05 2022-02-05 Lifetime [facility] 00:00:00 00:00:00 non-drinker (finding) Tobacco use and 2022-01-07 2022-01-07 Smokeless tobacco [facility] exposure 00:00:00 00:00:00 non-user Sex Ass[birth year] At [birth year] [facility] 00:00:00 00:00:00 Smoking Status Start Date Stop Date Source Unknown if ever smoked [facility] Never smoked tobacco [facility] ospital Medications Ordered Filled Start Stop Current [...] Yes 250mg Take 1 Method i sodium 9-[address] (COLACE) 17:25: (250 mg Hospit a 250 MG 59 total) by l capsule mouth. gabapentin Yes 100mg Q.5D Take 1 Meth brooke (NEURONTIN) 9-[address] 100 mg 17:25: (100 mg Hospita capsule 59 total) by l mouth 2 (two) times a day. ergocalcife Yes Take by Met hodi rol, 9-[address] vitamin D2, 17:25: Hospit a (VITAMIN D2 59 l ORAL) vitamin B Yes QD Take by Metho di complex 01-[address] tablet 17:25: daily. Hospita extended 59 l release traMADoL 2021- No [id number] 50mg Q6H Take 1 Metho di (Ultram) 50 01-0924 tablet (50 s t mg tablet 00:00: 04:59 mg total) Ho spita 00 :00 by mouth l every 6 (six) hours as needed for moderate pain for up to 2 days .acute pain. traMADoL 2021- [place] [id number] 50mg Q6H Take 1 Metho di (Ultram) 50 01-0924 tablet (50 s t mg tablet 00:00: 04:59 mg total) Ho spita 00 :00 by mouth l every 6 (six) hours as needed for moderate pain for up to 2 days .acute pain. traMADoL 2021- No [id number] 50mg Q6H Take 1 Metho di (Ultram) 50 01-0924 tablet (50 s t mg tablet 00:00: 04:59 mg total) Ho spita 00 :00 by mouth l every 6 (six) hours as needed for moderate pain for up to 2 days .acute pain. traMADoL 2021- [place] [id number] 50mg Q6H Take 1 Metho di (Ultram) [...] 25U QD Inject 25 Meth brooke GLARGINE 12-20- Units st (TOUJEO) 00:00: 04:59 under the [...] l (two) times a day. albuterol Yes [id number] 2{puff} Inhale 2 Univers 90 1-22 Puffs ity of mcg/actuati 00:00: every 4 Kj as on inhaler 00 (four) Medical hours as Branch needed for Wheezing or Shortness of Breath. proMETHazin Yes [id number] 25mg Take 1 Univers e 25 mg 1-22 tablet by ity of tablet 00:00: mouth [place] 00 every 6 Medical (six) Branch hours as needed for Nausea and Vomiting (N/V). albuterol Yes [id number] 2{puff} Inhale 2 Univers 90 1-22 Puffs ity of mcg/actuati 00:00: every 4 Kj as on inhaler 00 (four) Medical hours as Branch needed for Wheezing or Shortness of Breath. proMETHazin Yes [id number] 25mg Take 1 Univers e 25 mg 1-22 tablet by ity of tablet 00:00: mouth [place] 00 every 6 Medical (six) Branch hours as needed for Nausea and Vomiting (N/V). amoxicillin 2021- No [id number] 1{tbl} Take 1 Univers -clavulanat 05-1230 tablet [...] days. Indication s: COUGH amoxicillin 2021- No [id number] 1{tbl} Take 1 Univers -clavulanat 05-1230 tablet [...] blood 2021-05-12 14:46:00 134 mm[Hg] Univer sity [facility] Diastolic blood 2021-05-12 14:46:00 66 mm[Hg] [facility] Heart rate 2021-05-12 14:46:00 118 /min [facility] Body temperature 2021-05-12 14:46:00 37.33 Chey [facility] Res[facility] rate 2021-05-12 14:46:00 22 /min [facility] Body weight 2021-05-12 14:46:00 102.059 kg [facility] Oxygen saturation in 2021-05-12 14:46:00 100 /min University Arterial blood by [facility] Pulse oximetry Branch Systolic blood 2022-02-07 20:01:00 182 mm[Hg] Method ist Hospital pressure Diastolic blood 2022-02-07 20:01:00 92 mm[Hg] [facility] Hospital pressure Heart rate 2022-02-07 20:01:00 89 /min [facility] Body temperature 2022-02-07 20:01:00 36.44 Chey [facility] Body height 2022-02-07 20:01:00 172.7 cm [facility] Body weight 2022-02-07 20:01:00 107.049 kg [facility] BMI 2022-02-07 20:01:00 35.88 kg/m2 [facility] Oxygen saturation in 2022-02-07 20:01:00 98 /min [facility] Arterial blood by Pulse oximetry Respiratory rate 2022-01-09 21:30:00 18 /min [facility] Systolic blood 2022-01-09 21:30:00 147 mm[Hg] [email or web address] Hospital pressure Diastolic blood 2022-01-09 21:30:00 85 mm[facility]Hg[facility] Heart rate 2022-01-09 21:30:00 92 /min [facility] Body temperature 2022-01-09 21:30:00 36.56 Chey [facility] Oxygen saturation in 2022-01-09 21:30:00 99 /min [facility] Arterial blood by Pulse oximetry Body height 2022-01-09 13:28:00 172.7 cm [facility] Body weight 2022-01-09 13:28:00 103.874 kg [facility] BMI 2022-01-09 13:28:00 34.82 kg/m2 [facility] Procedures Procedure Date / Time Performing Clinician Source Performed POC GLUCOSE 2022-01-09 20:58:00 Dyllan Albert POC GLUCOSE 2022-01-09 20:02:00 Dyllan Albert NE AN ELECTIVE 2022-01-09 17:35:00 Carolyn Solorzano spital SUPRAGLOTTIC AIRWAY Donna BELLE, AV FISTULA 2022-01-09 17:26:00 Shahana [facility] ESTIMATED GFR 2022-01-09 13:43:00 Dyllan Albert spital POC PANEL 2022-01-09 13:43:00 Dyllan Albert spital ABO AND RH CONFIRMATION 2022-01-09 13:40:00 Shahana [facility] BY PROTOCOL XR CHEST 2 VW 2022-01-07 15:20:51 Dyllan Albert spital ECG PRE/POST OP 2022-01-07 14:56:02 Dyllan Albert [facility] COVID-19 QUALITATIVE 2022-01-07 14:34:00 Shahana [facility] RT-PCR URINE CULTURE 2022-01-07 14:33:00 Dyllan Albert [facility] URINALYSIS SCREEN AND 2022-01-07 14:33:00 Shahana [facility] MICROSCOPY, WITH REFLEX TO CULTURE COMPREHENSIVE METABOLIC 2022-01-07 14:33:00 [facility] PANEL Ramon Coleman ESTIMATED GFR 2022-01-07 14:33:00 Catia Merino [facility] Ramon Coleman PARTIAL THROMBOPLASTIN 2022-01-07 14:05:[address] [facility] TIME (PTT) PROTHROMBIN TIME WITH INR 2022-01-07 14:05:00 Dyllan Albert [facility] HC COMPLETE BLD COUNT 2022-01-07 14:05:00 Shahana [facility] W/AUTO DIFF TYPE AND SCREEN 2022-01-07 14:05:00 Dyllan Albert [facility] HEMOGLOBIN A1C 2022-01-07 14:05:00 Catia Merino [facility] Ramon Coleman HEPATITIS B SURFACE 2021-09-06 05:47:00 [facility] ANTIGEN Center HEPATITIS B SURFACE 2021-09-06 05:47:00 [facility] ANTIBODY Center HEPATITIS B CORE 2021-09-06 05:47:00 [facility] Center XR CHEST 2 VW 2021-05-12 16:27:08 Turner Garcia [facility] RAPID INFLUENZA A/B 2021-05-12 15:13:00 Turner Garcia [facility] NOTICE OF PRIVACY 2021-05-12 14:43:20 Doctor Unassigned, [facility] PRACTICES [facility] CONSENT/REFUSAL FOR 2021-05-12 14:43:06 Doctor Unassigned, [facility] DIAGNOSIS AND TREATMENT [place] [facility] Plan of Care Planned Activity Planned Date Details Comments Source Future Scheduled 2022-02-28 HEPATITIS B VACCINES Met [facility] Test 10:00:19 (1 of 3 - 3-dose series) [code = HEPATITIS B VACCINES (1 of 3 - 3-dose series)] Future Scheduled 2022-02-28 COVID-19 VACCINE (#1) [facility] Test 10:00:19 [code = COVID-19 VACCINE (#1)] Future Scheduled 2022-02-28 Pneumococcal Vaccine: [facility] Test 10:00:19 Pediatrics (0 to 5 Years) and At-Risk Patients (6 to 64 Years) (1 - PCV) [code = Pneumococcal Vaccine: Pediatrics (0 to 5 Years) and At-Risk Patients (6 to 64 Years) (1 - PCV)] Future Scheduled 2022-02-28 Hepatitis C screening [facility] Test 10:00:19 (procedure) [code = 958276094] Future Scheduled 2022-02-28 COLONOSCOPY SCREENING [facility] Test 10:00:19 [code = COLONOSCOPY SCREENING] Future Scheduled 2022-02-28 INFLUENZA VACCINE [facility] Test 10:00:19 [code = INFLUENZA VACCINE] Future Scheduled 2022-02-12 HEPATITIS B VACCINES Met [facility] Test 07:56:41 (1 of 3 - 3-dose series) [code = HEPATITIS B VACCINES (1 of 3 - 3-dose series)] Future Scheduled 2022-02-12 COVID-19 VACCINE (#1) [facility] Test 07:56:41 [code = COVID-19 VACCINE (#1)] Future Scheduled 2022-02-12 Pneumococcal Vaccine: [facility] Test 07:56:41 Pediatrics (0 to 5 Years) and At-Risk Patients (6 to 64 Years) (1 - PCV) [code = Pneumococcal Vaccine: Pediatrics (0 to 5 Years) and At-Risk Patients (6 to 64 Years) (1 - PCV)] Future Scheduled 2022-02-12 Hepatitis C screening [facility] Test 07:56:41 (procedure) [code = 733347499] Future Scheduled 2022-02-12 COLONOSCOPY SCREENING [facility] Test 07:56:41 [code = COLONOSCOPY SCREENING] Future Scheduled 2022-02-12 INFLUENZA VACCINE [email or web address] Test 07:56:41 [code = INFLUENZA VACCINE] Future Scheduled 2022-02-07 HEPATITIS B VACCINES Met [facility] Test 15:27:38 (1 of 3 - 3-dose series) [code = HEPATITIS B VACCINES (1 of 3 - 3-dose series)] Future Scheduled 2022-02-07 COVID-19 VACCINE (#1) [facility] Test 15:27:38 [code = COVID-19 VACCINE (#1)] Future Scheduled 2022-02-07 Pneumococcal Vaccine: [facility] Test 15:27:38 Pediatrics (0 to 5 Years) and At-Risk Patients (6 to 64 Years) (1 - PCV) [code = Pneumococcal Vaccine: Pediatrics (0 to 5 Years) and At-Risk Patients (6 to 64 Years) (1 - PCV)] Future Scheduled 2022-02-07 Hepatitis C screening [facility] Test 15:27:38 (procedure) [code = 558585688] Future Scheduled 2022-02-07 COLONOSCOPY SCREENING [facility] Test 15:27:38 [code = COLONOSCOPY SCREENING] Future Scheduled 2022-02-07 INFLUENZA VACCINE [email or web address] Test 15:27:38 [code = INFLUENZA VACCINE] Future Scheduled 2022-01-25 HEPATITIS B VACCINES Met [facility] Test 11:11:15 (1 of 3 - 3-dose series) [code = HEPATITIS B VACCINES (1 of 3 - 3-dose series)] Future Scheduled 2022-01-25 COVID-19 VACCINE (#1) [facility] Test 11:11:15 [code = COVID-19 VACCINE (#1)] Future Scheduled 2022-01-25 Pneumococcal Vaccine: [facility] Test 11:11:15 Pediatrics (0 to 5 Years) and At-Risk Patients (6 to 64 Years) (1 - PCV) [code = Pneumococcal Vaccine: Pediatrics (0 to 5 Years) and At-Risk Patients (6 to 64 Years) (1 - PCV)] Future Scheduled 2022-01-25 Hepatitis C screening [facility] Test 11:11:15 (procedure) [code = 329846290] Future Scheduled 2022-01-25 COLONOSCOPY SCREENING [facility] Test 11:11:15 [code = COLONOSCOPY SCREENING] Future Scheduled 2022-01-25 INFLUENZA VACCINE [email or web address] Test 11:11:15 [code = INFLUENZA VACCINE] [...] [facility] s Test 00:00:00 (procedure) [code = [facility] 07845167] Future Scheduled [address] [facility] Test 00:00:00 (procedure) [code = [facility] 29874325] Future Scheduled [address] [facility] Test 00:00:00 (procedure) [code = [facility] 93063768] Future Scheduled [address] Test 00:00:00 (procedure) [code = [facility] 38414212] Future Scheduled 1995 DTAP/TDAP/TD VACCINES CH I [...] Medica l Center colon (procedure) [code = 376833032] Future Scheduled [address] [facility] Test 00:[facility] malignant neoplasm of Medica [facility] Center colon (procedure) [code = 327338676] Future Scheduled [address] [facility] Test 00:00:00 malignant neoplasm of Medica [facility] Center colon (procedure) [code = 668297859] Future Scheduled [address] [facility] Test 00:00:00 malignant neoplasm of Medica [facility] Center colon (procedure) [code = 895389269] Future Scheduled 1975 Sigmoid[facility]] Medical Bon acuna Future Scheduled [address] [facility] Test 00:00:00 (combo) [code = CT Medical C enter Colonography (combo)] Future Scheduled [address] [facility] Test 00:00:00 malignant neoplasm of Medica [facility] Center colon (procedure) [code = 850377127] Future Scheduled [address] [facility] Test 00:00:00 malignant neoplasm of Medica [facility] Center colon (procedure) [code = 486396027] Future Scheduled [address] [facility] Test 00:00:00 malignant neoplasm of Medica l Center colon (procedure) [code = 905729354] Future Scheduled [address] [facility] Test 00:00:00 malignant neoplasm of Medica l Center colon (procedure) [code = 794644938] Future Scheduled 1975 S[facility]oidoscopy [facility]] Medical Bon r Future Scheduled [address] [facility] Test 00:00:00 (combo) [code = CT Medical C enter Colonography (combo)] Future Scheduled [address] [facility] [facility] Test 00:00:00 malignant neoplasm of Medica l Center colon (procedure) [code = 173580673] Future Scheduled [address] [facility] Test 00:00:00 malignant neoplasm of Medica l Center colon (procedure) [code = 133313280] Future Scheduled [address] [facility] Test 00:00:00 malignant neoplasm of Medica l Center colon (procedure) [code = 632738933] Future Scheduled [address] [facility] Test 00:00:00 malignant neoplasm of Medica l Center colon (procedure) [code = 184631107] Future Scheduled 1975 S[facility]oidoscopy [facility]oscopy] Medical Bon r Future Scheduled [address] [facility] Test 00:00:00 (combo) [code = CT Medical C enter Colonography (combo)] Future Scheduled [address] [facility] [facility] Test 00:00:00 malignant neoplasm of Medica l Center colon (procedure) [code = 543792960] Future Scheduled [address] [facility] Test 00:00:00 malignant neoplasm of Medica l Center colon (procedure) [code = 584429483] Future Scheduled [address] [facility] Test 00:00:00 malignant neoplasm of Medica l Center colon (procedure) [code = 611188289] Future Scheduled [address] [facility] Test 00:00:00 malignant neoplasm of Medica l Center colon (procedure) [code = 614914184] Future Scheduled 1975 S[facility]oidoscopy [facility]oscopy] Medical Bon acuna Encounters Start End Encounter Admission Attending Care Care Encounter Source Date/Time Date/Time Type Type Clinicians Facility Department ID 2022-02-26 2022-02-26 Girma Lynn, 1.2.840.1 [id number] Methodi 00:00:00 00:00:[address] 3.430.2.7 Hospit a .3.458376 l .8 2022-02-07 2022-02-07 Office Asked, No Pcp 1.2.840.1 [id number] Methodi 15:00:00 16:33:51 Visit Rochelle Pennington 39529.1.[address] 3.430.2.7 Hospit a .3.812233 l .8 2022-02-07 2022-02-07 Office Gorge, 1.2.840.1 [id number] Methodi 15:00:00 16:33:51 Visit Rochelle 89819.1.[address] [place] 3.430.2.7 Hosp antione .3.514247 l .8 2022-02-07 2022-02-07 Travel 1.2.840.1 1.2.465.343 [id number] Methodi 00:00:00 00:00:[address] 3.430.2.7 0.2.7.3.698 Ho spita .3.120894 084.8 l .8 2022-02-07 2022-02-07 Travel 1.2.840.1 1.2.071.602 2564 [id number] Methodi 00:00:00 00:00:[address] 3.430.2.7 0.2.7.3.698 Ho spita .3.668913 084.8 l .8 2022-02-01 2022-02-01 Telephone Gianna, 1.2.840.1 [id number] Methodi 00:00:00 00:00:[address] 3.430.2.7 Hospit a .3.470305 l .8 2022-02-01 2022-02-01 Telephone Gianna, 1.2.840.1 [id number] 21 [id number] Methodi 00:00:00 00:00:[address] 3.430.2.7 Hospit a .3.598404 l .8 2022-01-25 2022-01-25 Telephone Antoinette, 1.2.840.1 [id number] Methodi 00:00:00 00:00:[address] 3.430.2.7 Hospit a .3.838695 l .8 2022-01-25 2022-01-25 Telephone Antoinette, 1.2.840.1 [id number] Methodi 00:00:00 00:00:[address] 3.430.2.7 Hospit a .3.407792 l .8 2022-01-01 2022-01-16 Office Dyllan Albert 1.2.840.1 [id number] Methodi 09:00:00 04:17:[address] 3.430.2.7 Hospit a .3.538611 l .8 2022-01-01 2022-01-16 Office Dyllan Albert 1.2.840.1 [id number] Methodi 09:00:00 04:17:[address] 3.430.2.7 Hospit a .3.419940 l .8 2022-01-11 2022-01-11 Telephone Tello, 1.2.840.1 [id number] Methodi 00:00:00 00:00:[address] 3.430.2.7 Hospit a .3.118294 l .8 2022-01-11 2022-01-11 Telephone Tello, 1.2.840.1 [id number] 21 [id number] Methodi 00:00:00 00:00:[address] 3.430.2.7 Hospit a .3.912836 l .8 2022-01-09 2022-01-09 [facility] Dyllan Albert 1.2.840.1 [id number] Methodi 07:17:00 17:05:[address] 3.430.2.7 Hospit a .3.988220 l .8 2022-01-09 2022-01-09 Anesthesia Carolyn Solorzano 1.2.840. 1 [id number] Methodi 12:26:00 15:04:00 Event Whitney Cano 18286.1.[address] 3.430.2.7 Hospit a .3.919325 l .8 2022-01-09 2022-01-09 Anesthesia Carolyn Solorzano 1.2.840. 1 [id number] Methodi 12:26:00 15:04:00 Event Whitney Cano 34396.1.[address] 3.430.2.7 Hospit a .3.519337 l .8 2022-01-09 2022-01-09 Surgery Dyllan Albert 1.2.840.1 [id number] Methodi 11:27:00 13:02:[address] 3.430.2.7 Hospit a .3.745332 l .8 2022-01-09 2022-01-09 Surgery ShahanaDyllan 1.2.840.1 [id number] Methodi 11:27:00 13:02:[address] 3.430.2.7 Hospit a .3.158433 l .8 2022-01-09 2022-01-09 [facility] DYLLAN ALBERT [facility] [id number] [place] [address] 00:00:00 00:00:00 Encounter [address] 2022-01-07 2022-01-07 [facility] Rodney Alberty 1.2.840.1 [id number] Methodi 10:05:52 23:59:[address] 3.430.2.7 Hospit a .3.920171 l .8 2022-01-07 2022-01-07 Pre-Admiss Dyllan Albert 1.2.840.1 [id number] Methodi 09:00:00 10:00:[address] Testing 3.430.2.7 Hospit a .3.385512 l .8 2022-01-07 2022-01-07 Pre-Admiss Dyllan Albert 1.2.840.1 [id number] Methodi 09:00:00 10:00:[address] Testing 3.430.2.7 Hospit a .3.493350 l .8 2022-01-07 2022-01-07 Travel 1.2.840.1 1.2.763.863 8481 [id number] Methodi 00:00:00 00:00:[address] 3.430.2.7 0.2.7.3.698 Ho spita .3.369333 084.8 l .8 2022-01-07 2022-01-07 [facility] DYLLAN ALBERT 1.2.840.1 [id number] [id number] [place] 00:00:00 00:00:00 Encounter 37373[address]1.[address] .3.266298 .8 2022-01-07 2022-01-07 Travel 1.2.840.1 1.2.748.163 6332 [id number] Methodi 00:00:00 00:00:[address] 3.430.2.7 0.2.7.3.698 Ho spita .3.492319 084.8 l .8 2022-01-01 2022-01-01 Prep for Antoinette, 1.2.840.1 [id number] 2 [id number] Methodi 00:00:00 00:00:00 Surgery April [address]226.1.[address] 3.430.2.7 Hospit a .3.045296 l .8 2022-01-01 2022-01-01 Prep for Antoinette, 1.2.840.1 [id number] 2 [id number] Methodi 00:00:00 00:00:00 Surgery April [address]21.1.[address] 3.430.2.7 Hospit a .3.865291 l .8 2021-12-26 2021-12-26 Telephone Omer, 1.2.840.1 [id number] 21 [id number] Methodi 00:00:00 00:00:[address] 3.430.2.7 Hospit a .3.459230 l .8 2021-12-26 2021-12-26 Telephone Omer, 1.2.840.1 [id number] 21 [id number] Methodi 00:00:00 00:00:[address] 3.430.2.7 Hospit a .3.624901 l .8 2021-12-25 2021-12-25 Telephone Antoinette, 1.2.840.1 [id number] Methodi 00:00:00 00:00:[address] 3.430.2.7 Hospit a .3.839166 l .8 2021-12-25 2021-12-25 Telephone Antoinette, 1.2.840.1 [id number] Methodi 00:00:00 00:00:[address] 3.430.2.7 Hospit a .3.851593 l .8 2021-09-06 2021-09-06 Lab [facility] [id number] 00:00:00 00:00:00 [facility] 2021-09-06 2021-09-06 Lab [facility] [id number] 00:00:00 00:00:00 [facility] 2021-05-13 2021-05-13 Letter SALBADOR Cabrera 1.2.840.114 [id number] Univers 00:00:00 00:00:00 (Out) Desi CONRAD 350.1.13.10 it [facility] 4.2.7.2.686 [facility] [id number] [facility] 019 Branch 2021-05-12 2021-05-12 Emergency X [facility] ERT [id number] Univers 08:47:00 11:17:00 TURNER rodriguez [facility] 2021-05-12 2021-05-12 Emergency [facility] 1.2.522.677 [id number] Univers 08:47:00 11:17:00 Turner MARIE 350.1.13.10 ity [facility] 4.2.7.2.686 [facility] [id number] [place] [id number] Branch Results Test Description Test Time Test Comments Results Result Comments Source POC glucose 2022-01-09 21:00:00 Test Item Value Reference Range Interpretation Comme nts POC glucose (test code = 214 mg/dL 65-99 H Ope rator Name: Joshua Beltran [id number]) ID: [id number] hartable: RN Notified Lab Interpretation (test code = Abnormal 02870-7) [facility]2022-09-21 21:00:00 Test Item Value Reference Range Interpretation Comments POC glucose (test code = 214 mg/dL 65-99 H Ope rator Name: [id number]) Joshua haywood ID: [id number] able: RN Notified Lab Interpretation (test Abnormal code = 89498-0) [facility]2022-09-21 21:00:00 Test Item Value Reference Range Interpretation Comments POC glucose (test code = 214 mg/dL 65-99 H Ope rator Name: [id number]) Joshua haywood ID: [id number] able: RN Notified Lab Interpretation (test Abnormal code = 41718-8) [facility] [id number] 21:00:00 Test Item Value Reference Range Interpretation Comments POC glucose (test code = 214 mg/dL 65-99 H Ope rator Name: [id number]) Joshua haywood ID: [id number] able: RN Notified Lab Interpretation (test Abnormal code = 82545-5) [facility]2022-09-21 13:44:01 Test Item Value Reference Range Interpretation Comments POC sodium (test code = 135 mmol/L 251-822 7291-0) POC potassium (test 4.5 mmol/L 3.5-5.0 code = 6298-4) POC glucose (test code 280 mg/dL 65-99 H = 2339-0) POC creatinine (test 6.0 mg/dl 0.7-1.2 H Operato r Name: code = 85788-5) Israel Roldan ID : [id number] POC hemoglobin (test 11.9 g/dL 14.0-18.0 L code = 718-7) POC hematocrit (test 35 % 41-51 L code = 4544-3) Lab Interpretation Abnormal (test code = 98838-0) [facility]2022-09-21 13:44:01 Test Item Value Reference Range Interpretation Comments POC sodium (test code = 135 mmol/L 559-660 6434-0) POC potassium (test 4.5 mmol/L 3.5-5.0 code = 6298-4) POC glucose (test code 280 mg/dL 65-99 H = 2339-0) POC creatinine (test 6.0 mg/dl 0.7-1.2 H Operato r Name: code = 64322-5) Israel Roldan ID : [id number] POC hemoglobin (test 11.9 g/dL 14.0-18.0 L code = 718-7) POC hematocrit (test 35 % 41-51 L code = 4544-3) Lab Interpretation Abnormal (test code = 83613-2) [facility]2022-09-21 13:44:01 Test Item Value Reference Range Interpretation Comments POC sodium (test code = 135 mmol/L 793-936 8243-0) POC potassium (test 4.5 mmol/L 3.5-5 code = 6298-4) POC glucose (test code 280 mg/dL 65-99 H = 2339-0) POC creatinine (test 6.0 mg/dl 0.7-1.2 H Operato r Name: code = 24913-6) Israel Roldan ID : [id number] POC hemoglobin (test 11.9 g/dL 14-18 L code = 718-7) POC hematocrit (test 35 % 41-51 L code = 4544-3) Lab Interpretation Abnormal (test code = 56804-1) [facility] [id number] 13:44:01 Test Item Value Reference Range Interpretation Comments POC sodium (test code = 135 mmol/L 093-433 4403-0) POC potassium (test 4.5 mmol/L 3.5-5.0 code = 6298-4) POC glucose (test code 280 mg/dL 65-99 H = 2339-0) POC creatinine (test 6.0 mg/dl 0.7-1.2 H Operato r Name: code = 46254-7) Israel Roldan ID : [id number] POC hemoglobin (test 11.9 g/dL 14.0-18.0 L code = 718-7) POC hematocrit (test 35 % 41-51 L code = 4544-3) Lab Interpretation Abnormal (test code = 50445-4) [facility] [id number] 13:44:00 Test Item Value Reference Range Interpretation Comments Estimated GFR (test mL/min/1.73 m2 A Caterg ory Units code = 51644-9) Interpretati onG1 >=90 Normal or highG 2 60-89 Mildly decrease dG3a 45-59 Mildly to moderately decr [id number] 30-44 Moderatel y to severely decrea sedG4 15-29 Severely decreasedG5 <15 Kidney failureThe eGFR was calculated usin g the Chronic Kidney Disease Epidemiology Collaboration ( CKD-EPI) equation. Interpretation is based on recommendati ons of the National Ki dney Foundation-Kidn ey Disease Outcome s Quality Initiat marshall (NKF-KDOQI) pub lished in 2013. Lab Interpretation Abnormal (test code = 84922-9) [facility] [id number] 13:44:00 Test Item Value Reference Range Interpretation Comments Estimated GFR (test mL/min/1.73 m2 A Caterg ory Units code = 83851-6) Interpretati onG1 >=90 Normal or highG 2 60-89 Mildly decrease dG3a 45-59 Mildly to moderately decr [id number] 30-44 Moderatel y to severely decrea sedG4 15-29 Severely decreasedG5 <15 Kidney failureThe eGFR was calculated usin g the Chronic Kidney Disease Epidemiology Collaboration ( CKD-EPI) equation. Interpretation is based on recommendati ons of the [facility] Disease Outcome s Quality Initiat marshall ([facility] [facility]-KDOQI) pub lished in 2013. Lab Interpretation Abnormal (test code = 17186-6) [facility] [id number] 13:44:00 Test Item Value Reference Range Interpretation Comments Estimated GFR (test mL/min/1.73 m2 A Caterg ory Units code = 77053-2) Interpretati onG1 >=90 Normal or highG 2 60-89 Mildly decrease dG3a 45-59 Mildly to moderately decr [id number] 30-44 Moderatel y to severely decrea sedG4 15-29 Severely decreasedG5 <1 5 Kidney failureThe eGFR was calculated usin g the Chronic Kidney Disease Epidemiology Collaboration ( CKD-EPI) equation. Interpretation is based on recommendati ons of the [facility] Disease Outcome s Quality Initiat marshall ([place] [facility]-KDOQI) pub lished in 2013. Lab Interpretation Abnormal (test code = 76122-6) [facility] [id number] 13:44:00 Test Item Value Reference Range Interpretation Comments Estimated GFR (test mL/min/1.73 m2 A Caterg ory Units code = 81824-1) Interpretati onG1 >=90 Normal or highG 2 60-89 Mildly decrease dG3a 45-59 Mildly to moderately decr [id number] 30-44 Moderatel y to severely decrea sedG4 15-29 Severely decreasedG5 <15 Kidney failureThe eGFR was calculated usin g the Chronic Kidney Disease Epidemiology Collaboration ( CKD-EPI) equation. Interpretation is based on recommendati ons of the [facility] Disease Outcome s Quality Initiat marshall ([facility] [facility]-KDOQI) pub lished in 2013. Lab Interpretation Abnormal (test code = 67397-1) [facility] [Presence] in Respiratory specimen by YESENIA with probe [id number] 17:48:52 Test Item Value Reference Range Interpretation Comments SARS-CoV-2 (COVID-19) RNA Not detected [Presence] in Respiratory specimen by YESENIA with probe detection (test code = 25157-1) Whether patient is employed in a Unknown healthcare setting (test code = 81326-2) Whether the patient has symptoms Unknown related to condition of interest (test code = 41744-4) Whether the patient was Unknown hospitalized for condition of interest (test code = 30877-9) Whether the patient was admitted Unknown to intensive care unit (ICU) for condition of interest (test code = 40673-9) Whether patient resides in a Unknown congregate care setting (test code = 34643-8) status (test code = Unknown 59927-5) Date and time of symptom onset Unknown (test code = 40613-4) [facility] Pre/Post [id number] 17:20:24 Test Item Value Reference Range Interpretation Comments Ventricular rate (test code = 253) Atrial rate (test code = 255) NE interval (test code = 266) QRSD interval (test code = 260) QT interval (test code = 264) QTC interval (test code = 265) P axis 1 (test code = 267) QRS axis 1 (test code = 268) T wave axis (test code = 270) EKG impression (test Sinus rhythm with code = 273) occasional premature ventricular complexes-Left axis deviation-Abnormal ECG-No previous ECGs available- [facility] Pre/Post [id number] 17:20:24 Test Item Value Reference Range Interpretation Comments Ventricular rate (test code = 253) Atrial rate (test code = 255) NE interval (test code = 266) QRSD interval (test code = 260) QT interval (test code = 264) QTC interval (test code = 265) P axis 1 (test code = 267) QRS axis 1 (test code = 268) T wave axis (test code = 270) EKG impression (test Sinus rhythm with code = 273) occasional premature ventricular complexes-Left axis deviation-Abnormal ECG-No previous ECGs available- [facility] Pre/Post [id number] 17:20:24 Test Item Value Reference Range Interpretation Comments Ventricular rate (test code = 253) Atrial rate (test code = 255) NE interval (test code = 266) QRSD interval (test code = 260) QT interval (test code = 264) QTC interval (test code = 265) P axis 1 (test code = 267) QRS axis 1 (test code = 268) T wave axis (test code = 270) EKG impression (test Sinus rhythm with code = 273) occasional premature ventricular complexes-Left axis deviation-Abnormal ECG-No previous ECGs available- [facility] Pre/Post [id number] 17:20:24 Test Item Value Reference Range Interpretation Comments Ventricular rate (test code = 253) Atrial rate (test code = 255) NE interval (test code = 266) QRSD interval (test code = 260) QT interval (test code = 264) QTC interval (test code = 265) P axis 1 (test code = 267) QRS axis 1 (test code = 268) T wave axis (test code = 270) EKG impression (test Sinus rhythm with code = 273) occasional premature ventricular complexes-Left axis deviation-Abnormal ECG-No previous ECGs available- [facility] [id number] 15:46:00 Test Item Value Reference Range Interpretation Comments Urine culture (test SEE COMMENT Bacteriu lashell screen code = 7109519) negative. [facility] [id number] 15:46:00 Test Item Value Reference Range Interpretation Comments Urine culture (test SEE COMMENT Bacteriu lashell screen code = 2577429) negative. [facility] [id number] 15:46:00 Test Item Value Reference Range Interpretation Comments Urine culture (test SEE COMMENT Bacteriu lashell screen code = 1650750) negative. [facility] [id number] 15:46:00 Test Item Value Reference Range Interpretation Comments Urine culture (test SEE COMMENT Bacteriu lashell screen code = 5161978) negative. [facility] [id number] 22:01:34 Test Item Value Reference Range Interpretation Comments Hep B S Ab (test code <8.0 See_Comment [Auto mated = 47790-4) message] The system which generated this result transmit brad reference range : <8.0 mIU/mL. Th e reference range was not used to interpret this result as normal/abnormal . TALIB (test code = TALIB) Electromyographic Technician ID - DB Lab Interpretation Normal (test code = 21353-5) [facility] B surface [id number] 22:01:34 Test Item Value Reference Range Interpretation Comments Hep B S Ab (test code <8.0 See_Comment [Auto mated = 70578-2) message] The system which generated this result transmit brad reference range : <8.0 mIU/mL. Th e reference range was not used to interpret this result as normal/abnormal . TALIB (test code = TALIB) Electromyographic Technician ID - DB Lab Interpretation Normal (test code = 23207-1) [facility] B surface [id number] 22:01:34 Test Item Value Reference Range Interpretation Comments Hep B S Ab (test code <8.0 See_Comment [Auto mated = 61689-2) message] The system which generated this result transmit brad reference range : <8.0 mIU/mL. Th e reference range was not used to interpret this result as normal/abnormal . TALIB (test code = TALIB) Electromyographic Technician ID - DB Lab Interpretation Normal (test code = 01607-3) [facility] B surface [id number] 22:01:34 Test Item Value Reference Range Interpretation Comments Hep B S Ab (test code <8.0 See_Comment [Auto mated = 98685-0) message] The system which generated this result transmit brad reference range : <8.0 mIU/mL. Th e reference range was not used to interpret this result as normal/abnormal . TALIB (test code = TALIB) Electromyographic Technician ID - DB Lab Interpretation Normal (test code = 41632-5) [facility] B SURFACE [id number] 22:01:34 Test Item Value Reference Range Interpretation Comments HEPATITIS B SURFACE ANTIBODY < mIU/mL <8.0 (BEAKER) (test code = 647) Electromyographic Technician [facility] - [facility] antibody, [id number] 21:52:25 Test Item Value Reference Range Interpretation Comments Hep B C IgM (test code = Nonreactive Nonreactive 95152-7) TALIB (test code = TALIB) Electromyographic Technician ID - DB Lab Interpretation (test Normal code = 05425-0) [facility], [id number] 21:52:25 Test Item Value Reference Range Interpretation Comments Hep B C IgM (test code = Nonreactive Nonreactive 46981-7) TALIB (test code = TALIB) Electromyographic Technician ID - DB Lab Interpretation (test Normal code = 68845-2) [facility] antibody, [id number] 21:52:25 Test Item Value Reference Range Interpretation Comments Hep B C IgM (test code = Nonreactive Nonreactive 55851-1) TALIB (test code = TALIB) Electromyographic Technician ID - DB Lab Interpretation (test Normal code = 53346-2) [facility], [id number] 21:52:25 Test Item Value Reference Range Interpretation Comments Hep B C IgM (test code = Nonreactive Nonreactive 08388-1) TALIB (test code = TALIB) Electromyographic Technician ID - DB Lab Interpretation (test Normal code = 86547-0) [facility] B CORE ANTIBODY, [id number] 21:52:25 Test Item Value Reference Range Interpretation Comments HEPATITIS B CORE IGM ANTIBODY Nonreactive Nonreactive (BEAKER) (test code = 645) Electromyographic Technician ID - DBHepatitis B surface [id number] 21:52:19 Test Item Value Reference Range Interpretation Comments Hepatitis B surface Nonreactive Nonreactive antigen (test code = 5195-3) TALIB (test code = TALIB) Specimen is considered negative for HBsAg. Lab Interpretation (test Normal code = 13840-3) [facility] [id number] 21:52:19 Test Item Value Reference Range Interpretation Comments Hepatitis B surface Nonreactive Nonreactive antigen (test code = 5195-3) TALIB (test code = TALIB) Specimen is considered negative for HBsAg. Lab Interpretation (test Normal code = 05964-7) [facility] [id number] 21:52:19 Test Item Value Reference Range Interpretation Comments Hepatitis B surface Nonreactive Nonreactive antigen (test code = 5195-3) TALIB (test code = TALIB) Specimen is considered negative for HBsAg. Lab Interpretation (test Normal code = 96034-5) [facility] B surface [id number] 21:52:19 Test Item Value Reference Range Interpretation Comments Hepatitis B surface Nonreactive Nonreactive antigen (test code = 5195-3) TALIB (test code = TALIB) Specimen is considered negative for HBsAg. Lab Interpretation (test Normal code = 72573-2) [facility] B SURFACE [id number] 21:52:19 Test Item Value Reference Range Interpretation Comments HEPATITIS B SURFACE ANTIGEN (2) Nonreactive Nonreactive (BEAKER) (test code = 2585) Specimen is considered negative for HBsAg.
[2022-03-01 08:25] LABS: Absolute Lymphocytes (CBC) 1.6 K/uL (0.7-4.9); Hematocrit 26.7 % (39.6-49.0); Lymphocytes % 22.1 % (15.3-44.8); MCV 83.6 fL (80-100); MPV 7.3 fL (7.6-11.3); RBC Red Blood Cell Count 3.19 M/uL (4.33-5.43)
--- NOTE | 2022-03-01 08:34 | RAD REPORT ---
EXAM DESCRIPTION: CT - Head Brain Wo Cont - 03/01/2022 8:23 am CLINICAL HISTORY: Right facial paresthesia Headache, drowsiness, paresthesias. COMPARISON: Head Brain Wo Cont dated 05/30/2018 TECHNIQUE: All CT scans are performed using dose optimization technique as appropriate and may inclu de automated exposure control or mA/KV adjustment according to patient size. FINDINGS: No intracranial hemorrhage, hydrocephalus or extra-axial fluid collection.No areas of brai n edema or evidence of midline shift. Mild vertebral atherosclerosis. Mild mucoperiosteal thickening both maxillary antra. The paranasal sinuses and mastoids are otherwise clear. The calvarium is intact. IMPRESSION: No acute intracranial abnormality.
[2022-03-01 08:53] LABS: Albumin 3.1 g/dL (3.4-5.0); Bilirubin Total 0.3 mg/dL (0.2-1.0); Potassium 4.2 mmol/L (3.5-5.1); Protein, Total 6.9 g/dL (6.4-8.2)
[2022-03-01 09:22] LABS: Urine Blood 1+ (Negative); Urine Glucose Trace (Negative); Urine Protein 3+ (Negative); Urine Specific Gravity 1.025 (1.005-1.030)
--- NOTE | 2022-03-01 11:01 | RAD REPORT ---
EXAM DESCRIPTION: MRI - Brain Wo Cont - 03/01/2022 10:37 am CLINICAL HISTORY: Right face and arm paresthesia Headache, drowsiness COMPARISON: Head Brain Wo Cont dated 03/01/2022 TECHNIQUE: Multi-sequence, multiplanar MR imaging of the brain was performed without contrast. FINDINGS: No intracranial hemorrhage, hydrocephalus or extra-axial fluid collections.Minimal periven tricular chronic microvascular ischemic changes. No edema or shift of midline structures. No findings to suspect brain mass. DWI is negative for acute CVA. Midline structures are normally formed. Mild mucosal thickening of both maxillary antra. IMPRESSION: Negative for acute CVA or other acute intracranial process.
--- NOTE | 2022-03-01 11:20 | EDPHYS ---
Physician Documentation [facility] Name: Chava Pate Age: 46 yrs Sex: Male : 1975 Arrival Date: 03/01/2022 Time: 07:49 Bed DIS3 Private MD: ED Physician Jeremie Hurtado HPI: 03/01 19:12 This 46 yrs old Male presents to ER via Ambulatory with complaints of Facial kdr Droop, Blurred Vision, Numbness. 19:13 Patient went to bed last night approxi-11 PM. He woke up at 04 100 this morning. At kdr that time he noted he had some mild blurry vision to the right eye. He also had some discomfort to the right arm. He has a history of end-stage renal disease and is recently started on dialysis. He has not had this before and is otherwise nontoxic and nonacute appearing. Onset: The symptoms/episode began/occurred suddenly. Severity of symptoms: At their worst the symptoms were very mild mild in the emergency department the symptoms are unchanged. The patient has not experienced similar symptoms in the past. The patient has not recently seen a physician. . Historical: - Allergies: 08:08 No Known Allergies; ss - PMHx: 08:08 Diabetes - NIDDM; Hypertensive disorder; kidney disease; PERIPHERAL NEUROPATHY; ss - PSHx: 08:08 fistula L arm; ss - Immunization history:: Client reports receiving the 2nd dose of the Covid vaccine. - Social history:: Smoking status: Patient denies any tobacco usage or history of. ROS: 19:13 Constitutional: Negative for fever, chills, and weight loss, Eyes: Negative for injury, kdr pain, redness, and discharge, ENT: Negative for injury, pain, and discharge. 19:13 Eyes: Positive for blurry vision, Negative for foreign body sensation, swelling, tearing, vision loss. Exam: 19:13 Constitutional: This is a well developed, well nourished patient who is awake, alert, kdr and in no acute distress. Head/Face: Normocephalic, atraumatic. Eyes: Pupils equal round and reactive to light, extra-ocular motions intact. Lids and lashes normal. Conjunctiva and sclera are non-icteric and not injected. Cornea within normal limits. Periorbital areas with no swelling, redness, or edema. Neck: Trachea midline, no thyromegaly or masses palpated, and no cervical lymphadenopathy. Supple, full range of motion without nuchal rigidity, or vertebral point tenderness. No Meningismus. Chest/axilla: Normal chest wall appearance and motion. Nontender with no deformity. No lesions are appreciated. Cardiovascular: Regular rate and rhythm with a normal S1 and S2. No gallops, murmurs, or rubs. Normal PMI, no JVD. No pulse deficits. Respiratory: Lungs have equal breath sounds bilaterally, clear to auscultation and percussion. No rales, rhonchi or wheezes noted. No increased work of breathing, no retractions or nasal flaring. Abdomen/GI: Soft, non-tender, with normal bowel sounds. No distension or tympany. No guarding or rebound. No evidence of tenderness throughout. Back: No spinal tenderness. No costovertebral tenderness. Full range of motion. Skin: Warm, dry with normal turgor. Normal color with no rashes, no lesions, and no evidence of cellulitis. MS/ Extremity: Pulses equal, no cyanosis. Neurovascular intact. Full, normal range of motion. Neuro: Awake and alert, GCS 15, oriented to person, place, time, and situation. Cranial nerves II-XII grossly intact. Motor strength 5/5 in all extremities. Sensory grossly intact. Cerebellar exam normal. Normal gait. Psych: Awake, alert, with orientation to person, place and time. Behavior, mood, and affect are within normal limits. Vital Signs: 07:53 BP 188 / 92; Pulse 90; Resp 16; Temp 98.0; Pulse Ox 100% on R/A; Weight 106.59 kg; ss Height 5 ft. 8 in. (172.72 cm); 08:27 BP 165 / 98; Pulse 88; Resp 19; Pulse Ox 97% on R/A; vg1 09:31 BP 157 / 80; Pulse 85; Resp 16; Pulse Ox 97% on R/A; vg1 11:09 BP 158 / 84; Pulse 85; Resp 15; Pulse Ox 97% on R/A; jd3 07:53 Body Mass Index 35.73 (106.59 kg, 172.72 cm) NIH Stroke Scale Scores: 08:17 NIHSS Score: 0 vg1 MDM: 11:19 Patient medically screened. kdr 19:13 Data reviewed: vital signs, nurses notes, lab test result(s), radiologic studies. kdr Counseling: I had a detailed discussion with the patient and/or guardian regarding: the historical points, exam findings, and any diagnostic results supporting the discharge/admit diagnosis, lab results, radiology results, the need for outpatient follow up. 03/01 07:58 Order name: CBC with Diff; Complete Time: 09:22 kdr 03/01 07:58 Order name: Comprehensive Metabolic Panel; Complete Time: 09:22 kdr 03/01 07:58 Order name: CT Head Brain wo Cont; Complete Time: 09:22 kdr 03/01 09:22 Order name: Urine Dipstick-Ancillary; Complete Time: 10:54 EDMS 03/01 10:10 Order name: Brain Wo Cont; Complete Time: 11:10 EDMS 03/01 07:58 Order name: Urine Dipstick-Ancillary (obtain specimen); Complete Time: 09:38 kdr Administered Medications: No medications were administered Disposition Summary: 03/01/22 11:19 Discharge Ordered Location: Home kdr Problem: new kdr Symptoms: have improved kdr Condition: Stable kdr Diagnosis - Paresthesia of skin kdr - Weakness kdr Followup: kdr - With: Private Physician - When: 2 - 3 days - Reason: If symptoms return, Further diagnostic work-up, Recheck today's complaints, Continuance of care, Re-evaluation by your physician Discharge Instructions: - Discharge Summary Sheet kdr - Weakness, [id number] kdr - Paresthesia, [id number]-sd-[id number] kdr Forms: - Medication Reconciliation Form kdr - Thank You Letter kdr NIH Stroke Scale - NIH Stroke Score Date: 03/01/2022 Time: 08:17 Total Score = 0 1a. Level of Consciousness (LOC) - 0(Alert) 1b. Level of Consciousness (LOC) (Month \T\ Age) - 0(Both) 1c. LOC Commands (Open \T\ Closes Eyes/Waiter[employer] [place]) - 0(Both) 2. Best Gaze (Lateral Gaze Paresis) - 0(Normal) 3. Visual Field Loss - 0(No visual loss) 4. Facial Palsy - 0(Normal) 5a. Left Arm: Motor (10-second hold) - 0(No drift) 5b. Right Arm: Motor (10-second hold) - 0(No drift) 6a. Left Leg: Motor (5-second hold - always test supine) - 0(No drift) 6b. Right Leg: Motor (5-second hold - always test supine) - 0(No drift) 7. Limb Ataxia (finger/nose \T\ heel/medeiros - test with eyes open) - 0(Absent) 8. Sensory Loss (pinprick arms/legs/face) - 0(Normal) 9. Best Language: Aphasia (description/naming/reading) - 0(No aphasia) 10. Dysarthria (speech clarity - read or repeat words) - 0(Normal) 11. Extinction and Inattention (visual/tactile/auditory/spatial/personal) - 0(No abnormality) Initials: vg1 Signatures: Dispatcher [employer] EDMS Jeremie Hurtado MD MD [facility] Virginie Mackay RN RN July Snyder RN RN vg1 Corrections: (The following items were deleted from the chart) 10:10 08:17 MR STROKE PROTOCOL+MRI.RAD.LISA ordered. EDMS EDMS
--- NOTE | 2022-03-01 11:20 | ER ---
Nurse's Notes [facility] Name: Chava Pate Age: 46 yrs Sex: Male : 1975 Arrival Date: 03/01/2022 Time: 07:49 Bed DIS3 Private MD: Diagnosis: Paresthesia of skin;Weakness Presentation: 03/01 07:53 Chief complaint: Patient states: Went to bed at approximately 11 pm last night and woke ss up at 0400 this morning with mild blurred vision to R eye. Pt also c/o "some discomfort" to upper R arm. HX of HD. Coronavirus screen: Client denies travel out of the [place] in the last 14 days. Ebola Screen: Patient denies exposure to infectious person. Patient denies travel to an Ebola-affected area in the 21 days before illness onset. No acute neurological deficit is noted. Pre-hospital glucose is not applicable to this patient. Initial Sepsis Screen: Does the patient meet any 2 criteria? No. Patient's initial sepsis screen is negative. Does the patient have a suspected source of infection? No. Patient's initial sepsis screen is negative. Risk Assessment: Do you want to hurt yourself or someone else? Patient reports no desire to harm self or others. Onset of symptoms was February 28, 2022 at 23:00. 07:53 Method Of Arrival: Ambulatory ss 07:53 Acuity: EDINSON 3 ss Stroke Activation: Symptom onset > 6 hours Physician: Stroke Attending; Name: ; Notified At: ; Arrived At: Physician: Chief Stroke Resident; Name: ; Notified At: ; Arrived At: Physician: Stroke Resident; Name: ; Notified At: ; Arrived At: Physician: ED Attending; Name: ; Notified At: ; Arrived At: Physician: ED Resident; Name: ; Notified At: ; Arrived At: 07:53 VAN scoring negative ss Historical: - Allergies: 08:08 No Known Allergies; ss - PMHx: 08:08 Diabetes - NIDDM; Hypertensive disorder; kidney disease; PERIPHERAL NEUROPATHY; ss - PSHx: 08:08 fistula L arm; ss - Immunization history:: Client reports receiving the 2nd dose of the Covid vaccine. - Social history:: Smoking status: Patient denies any tobacco usage or history of. Screenin:05 Abuse screen: Denies threats or abuse. Nutritional screening: No deficits noted. vg1 Tuberculosis screening: No symptoms or risk factors identified. Fall Risk No fall in past 12 months (0 pts). No secondary diagnosis (0 pts). IV access (20 points). Ambulatory Aid- None/Bed Rest/Nurse Assist (0 pts). Gait- Normal/Bed Rest/Wheelchair (0 pts) Mental Status- Oriented to own ability (0 pts). Total Pruitt Fall Scale indicates No Risk (0-24 pts). Assessment: 08:05 General: Appears in no apparent distress. comfortable, Behavior is cooperative, vg1 anxious. Pain: Denies pain. Neuro: Level of Consciousness is awake, alert, obeys commands, Oriented to person, place, time, situation, Computer Repair Engineer are equal bilaterally Moves all extremities. Gait is steady, Speech is normal, Facial symmetry appears normal. Cardiovascular: Patient's skin is warm and dry. Dialysis shunt: in the Left forearm, recently placed. Respiratory: Airway is patent Respiratory effort is even, unlabored. GI: No signs and/or symptoms were reported involving the gastrointestinal system. Abdomen is round non-distended. : No signs and/or symptoms were reported regarding the genitourinary system. EENT: No signs and/or symptoms were reported regarding the EENT system. Derm: Skin is pink, warm \\T\\ dry. Musculoskeletal: Circulation, motion, and sensation intact. 08:17 VAN Scoring: Arm Drift: Patients demonstrates NO arm weakness. Patient is VAN Negative. vg1 The patient has not been NPO before screening. The patient is alert, and able to follow commands. The patient does not exhibit slurred or garbled speech. The patient is not exhibiting difficulty speaking. The patient does not exhibit difficulty understanding words. The patient is able to swallow own secretions with no drooling or need for suction. 08:27 Patient tolerated one teaspoon of water. No drooling, immediate coughing, gurgling, or vg1 clearing of the throat was noted. The patient tolerated 90mL of water. No drooling, immediate coughing, gurgling, or clearing of the throat was noted. The patient passed the bedside swallow screening. Oral medications may be given as ordered. Contact Physician for further diet orders. Provider notified of bedside swallow screening results: Jeremie Hurtado MD. 09:00 Reassessment: Patient appears in no apparent distress at this time. No changes from vg1 previously documented assessment. Patient and/or family updated on plan of care and expected duration. Pain level reassessed. Patient is alert, oriented x 3, equal unlabored respirations, skin warm/dry/pink. 10:00 Reassessment: Patient appears in no apparent distress at this time. No changes from vg1 previously documented assessment. Patient and/or family updated on plan of care and expected duration. Pain level reassessed. Patient is alert, oriented x 3, equal unlabored respirations, skin warm/dry/pink. Pt transported to MRI via stretcher. 11:09 Reassessment: Patient appears in no apparent distress at this time. No changes from jd3 previously documented assessment. Patient and/or family updated on plan of care and expected duration. Pain level reassessed. Patient is alert, oriented x 3, equal unlabored respirations, skin warm/dry/pink. Vital Signs: 07:53 BP 188 / 92; Pulse 90; Resp 16; Temp 98.0; Pulse Ox 100% on R/A; Weight 106.59 kg; Height 5 ft. 8 in. (172.72 cm); 08:27 BP 165 / 98; Pulse 88; Resp 19; Pulse Ox 97% on R/A; vg1 09:31 BP 157 / 80; Pulse 85; Resp 16; Pulse Ox 97% on R/A; vg1 11:09 BP 158 / 84; Pulse 85; Resp 15; Pulse Ox 97% on R/A; jd3 07:53 Body Mass Index 35.73 (106.59 kg, 172.72 cm) NIH Stroke Scale Scores: 08:17 NIHSS Score: 0 vg1 ED Course: 07:49 Patient arrived in ED. as 07:55 Jeremie Hurtado MD is Attending Physician. kdr 08:02 July Briceño, RN is Primary Nurse. vg1 08:05 Patient has correct armband on for positive identification. Placed in gown. Bed in low vg1 position. Call light in reach. Side rails up X 1. Client placed on continuous cardiac and pulse oximetry monitoring. NIBP monitoring applied. 08:05 No provider procedures requiring assistance completed. vg1 08:08 Triage completed. ss 08:08 Arm band placed on right wrist. ss 08:14 Initial lab(s) drawn, by me, sent to lab. Inserted saline lock: 20 gauge in right vg1 wrist, using aseptic technique. Blood collected. 08:25 CT Head Brain wo Cont In Process Unspecified. EDMS 10:24 Brain Wo Cont In Process Unspecified. EDMS Administered Medications: No medications were administered Medication: 08:05 VIS not applicable for this client. vg1 Outcome: 11:19 Discharge ordered by . kdr 12:45 Patient left the ED. NIH Stroke Scale - NIH Stroke Score Date: 03/01/2022 Time: 08:17 Total Score = 0 1a. Level of Consciousness (LOC) - 0(Alert) 1b. Level of Consciousness (LOC) (Month \\T\\ Age) - 0(Both) 1c. LOC Commands (Open \\T\\ Closes Eyes/Graduate Research Assistant) - 0(Both) 2. Best Gaze (Lateral Gaze Paresis) - 0(Normal) 3. Visual Field Loss - 0(No visual loss) 4. Facial Palsy - 0(Normal) 5a. Left Arm: Motor (10-second hold) - 0(No drift) 5b. Right Arm: Motor (10-second hold) - 0(No drift) 6a. Left Leg: Motor (5-second hold - always test supine) - 0(No drift) 6b. Right Leg: Motor (5-second hold - always test supine) - 0(No drift) 7. Limb Ataxia (finger/nose \\T\\ heel/medeiros - test with eyes open) - 0(Absent) 8. Sensory Loss (pinprick arms/legs/face) - 0(Normal) 9. Best Language: Aphasia (description/naming/reading) - 0(No aphasia) 10. Dysarthria (speech clarity - read or repeat words) - 0(Normal) 11. Extinction and Inattention (visual/tactile/auditory/spatial/personal) - 0(No abnormality) Initials: vg1 Signatures: Dispatcher [employer] EDMS Jeremie Hurtado MD MD kdr Martinez, Amelia as Smirch, Shelby, RN RN ss Joao Sue RN RN July Hoffmann RN RN vg1
[2022-03-01 13:12] VITALS: TEMP 98
[2022-03-01 13:13] VITALS: O2SAT 97
[2022-03-01 13:16] VITALS: BP 158/84
== END 2022-03-01 12:45 | disposition home or self-care (01) ==
LOC: ER 07:47
DX: R20.2 Paresthesia of skin (principal); R53.1 Weakness; H53.8 Other visual disturbances; E11.22 Type 2 diabetes mellitus with diabetic chronic kidney disease; I12.0 Hypertensive chronic kidney disease with stage 5 chronic kidney disease or end stage renal disease; N18.6 End stage renal disease; Z99.2 Dependence on renal dialysis
CPT/HCPCS: 36415; 70450; 70551; 80053; 81003; 85025; 99283

== ENCOUNTER 2022-05-13 18:08 | Emergency (ER) | payer BC ==
--- OUTSIDE RECORDS SUMMARY | 2022-05-13 18:13 | XMS REPORT | Continuity of Care Document ---
:1975 Author Organization [facility] t Address [address] [place] [address] Care Team Providers Name Role Phone RITA DEY Primary Care Physician Unavailable Gisele Lynn MA Attending Clinician Unavailable Asked, No Pcp Attending Clinician Unavailable Gorge TOMLINC, Rochelle Gomez Attending Clinician [phone] Tabatha Katz MA Attending Clinician Unavailable Antoinette MEDRANO, April Attending Clinician Unavailable Dyllan Albert MD Attending Clinician Kamilla Tello MA Attending Clinician Unavailable Carolyn Solorzano MD Attending Clinician [phone] Whitney Dow Attending Clinician Desi Cabrera [...] Added automatic ally from request for surgery [id number] No known No known Disease Unive rs active active ity of problems problems [facility] Allergies, Adverse Reactions, Alerts Allergy Allergy Status Severity Reaction(s) Onset Inactive Treating Comm ents Source Name Type Date Date Clinician NO KNOWN Drug Active Univers ALLERGIE Class ity of S [facility] Family History Family Member Diagnosis Comments Start Date Stop Date Source Natural father No Known Problems [facility] Natural mother Stroke [facility] Social History Social Habit Start Date Stop Date Quantity Comments Source Exposure to Not sure University SARS-CoV-2 [facility] (event) Branch Alcohol intake 2022-02-05 2022-02-05 Lifetime [facility] 00:00:00 00:00:00 non-drinker (finding) Tobacco use and 2022-01-07 2022-01-07 Smokeless tobacco [facility] exposure 00:00:00 00:00:00 non-user Sex Ass[birth year] At [birth year] [facility] 00[facility]00 [facility] Smoking Status Start Date Stop Date Source Unknown if ever smoked [facility] Never smoked tobacco [facility] ospital Medications Ordered Filled Start Stop Current [...] day. ergocalcife 2021-04 Yes Take by Met kota rol, 0-[address] vitamin D2, 15:04: [...] mouth 2 (two) times a day. ergocalcife 2022-0 Yes Take by Met geneti rol, 01-[address] vitamin D2, 17:25: Hospit a (VITAMIN D2 59 l ORAL) vitamin B Yes QD Take by Metho di complex 01-[address] tablet 17:25: daily. Hospita extended 59 l release traMADoL 2021- [place] [id number] 50mg Q6H Take 1 Metho di (Ultram) 50 01-0924 tablet (50 s t mg tablet 00:00: 04:59 mg total) Ho spita 00 :00 by mouth l every 6 (six) hours as needed for moderate pain for up to 2 days .acute pain. traMADoL 2021- No [id number] 50mg Q6H Take 1 Metho di (Ultram) 50 01-0924 tablet (50 s t mg tablet 00:00: 04:59 mg total) Ho spita 00 :00 by mouth l every 6 (six) hours as needed for moderate pain for up to 2 days .acute pain. traMADoL 2021- [place] [id number] 50mg Q6H Take 1 Metho di (Ultram) 50 01-09 tablet (50 s t mg tablet 00:00: 04:59 mg total) Ho spita 00 :00 by mouth l every 6 (six) hours as needed for moderate pain for up to 2 days .acute pain. traMAD[place] 2021- [place] [id number] 50mg Q6H Take 1 Metho di (Ultram) [...] 37 :00 by mouth. l insulin 2022- No 25U QD Inject 25 Meth brooke GLARGINE 12-[address] (TOUJEO) 00:00: 04:59 under the [facility] 300 unit/mL 00 :00 skin l (1.5 mL) daily. insulin pen subcutaneou s pen insulin 2022- No 25U QD Inject 25 Meth brooke GLARGINE 12-[address] (TOUJEO) 00:00: 04:59 under the [facility] 300 unit/mL 00 :00 skin l (1.5 mL) daily. insulin pen subcutaneou s pen insulin 2022- No 25U QD Inject 25 Meth brooke GLARGINE 12-[address] (TOUJEO) 00:00: 04:59 under the [facility] 300 unit/mL 00 :00 skin l (1.5 mL) daily. insulin pen subcutaneou s pen insulin 2022- No 25U QD Inject 25 Meth brooke GLARGINE [...] l (two) times a day. albuterol Yes [id number] 2{puff} Inhale 2 Univers 90 1-22 Puffs ity of mcg/actuati 00:00: every 4 Kj as on inhaler 00 (four) Medical hours as Branch needed for Wheezing or Shortness of Breath. proMETHazin Yes [id number] 25mg Take 1 Univers e 25 mg 1-22 tablet by ity of tablet 00:00: mouth [place] 00 every 6 Medical (six) Branch hours as needed for Nausea and Vomiting (N/V). albuterol Yes [id number] 2{puff} Inhale 2 Univers 90 1-22 Puffs ity of mcg/actuati 00:00: every 4 Kj as on inhaler 00 (four) Medical hours as Branch needed for Wheezing or Shortness of Breath. proMETHazin Yes [id number] 25mg Take 1 Univers e 25 mg 1-22 tablet by ity of tablet 00:00: mouth [place] 00 every 6 Medical (six) Branch hours as needed for Nausea and Vomiting (N/V). amoxicillin 2021- No [id number] 1{tbl} Take 1 Univers -clavulanat 05-1230 tablet [...] days. Indication s: COUGH amoxicillin 2021- No [id number] 1{tbl} Take 1 Univers -clavulanat 05-1230 tablet [...] Source Systolic blood 2021-05-12 14:46:00 134 mm[Hg] [facility] Diastolic blood 2021-05-12 14:46:00 66 mm[Hg] [facility] Heart rate 2021-05-12 14:46:00 118 /min [facility] Body temperature 2021-05-12 14:46:00 37.33 Chey [facility] Respiratory rate 2021-05-12 14:46:00 22 /min [facility] Body weight 2021-05-12 14:46:00 102.059 kg [facility] Oxygen saturation in 2021-05-12 14:46:00 100 /min University Arterial blood by [facility] Pulse oximetry Branch Systolic blood 2022-02-07 20:01:00 182 mm[Hg] [facility] Hospital pressure Diastolic blood 2022-02-07 20:01:00 92 mm[Hg[facility] pressure Heart rate 2022-02-07 20:01:00 89 /min [facility] Body temperature 2022-02-07 20:01:00 36.44 Chey [facility] Body height 2022-02-07 20:01:00 172.7 cm [facility] Body weight 2022-02-07 20:01:00 107.049 kg [facility] BMI 2022-02-07 20:01:00 35.88 kg/m2 [facility] Oxygen saturation in 2022-02-07 20:01:00 98 /min [facility] Arterial blood by Pulse oximetry Systolic blood 2022-01-09 21:30:00 147 mm[Hg] Method [facility] pressure Diastolic blood 2022-01-09 21:30:00 85 mm[Hg] [facility] Hospital pressure Heart rate 2022-01-09 21:30:00 92 /min [facility] Body temperature 2022-01-09 21:30:00 36.56 Chey [facility] Respiratory rate 2022-01-09 21:30:00 18 /min [facility] Oxygen saturation in 2022-01-09 21:30:00 99 /min [facility] Arterial blood by Pulse oximetry Body height 2022-01-09 13:28:00 172.7 cm [facility] Body weight 2022-01-09 13:28:00 103.874 kg [facility] BMI 2022-01-09 13:28:00 34.82 kg/m2 [facility] Procedures Procedure Date / Time Performing Clinician Source Performed POC GLUCOSE 2022-01-09 20:58:00 Dyllan Albert POC GLUCOSE 2022-01-09 20:02:00 Dyllan Albert NE AN ELECTIVE 2022-01-09 17:35:00 Carolyn Solorzano spital SUPRAGLOTTIC AIRWAY Donna CREATION, AV FISTULA 2022-01-09 17:26:00 Shahana [facility] ESTIMATED GFR 2022-01-09 13:43:00 Dyllan Albert spital POC PANEL 2022-01-09 13:43:00 Dyllan Albert spital ABO AND RH CONFIRMATION 2022-01-09 13:40:00 Shahana [facility] BY PROTOCOL XR CHEST 2 VW 2022-01-07 15:20:51 Dyllan Albert spital ECG PRE/POST OP 2022-01-07 14:56:02 [facility] 2022-01-07 14:34:00 Shahana [facility] RT-PCR URINE CULTURE 2022-01-07 14:33:00 Dyllan Albert [facility] URINALYSIS SCREEN AND 2022-01-07 14:33:00 Shahana [facility] MICROSCOPY, WITH REFLEX TO CULTURE COMPREHENSIVE METABOLIC 2022-01-07 14:33:00 [facility] Ramon Coleman ESTIMATED GFR 2022-01-07 14:33:00 Catia Merino [facility] Ramon Coleman PARTIAL THROMBOPLASTIN 2022-01-07 14:05:00 Dyllan Albert [facility] TIME (PTT) PROTHROMBIN TIME WITH INR 2022-01-07 14:05:00 Dyllan Albert [facility] HC COMPLETE BLD COUNT 2022-01-07 14:05:00 Shahana [facility] W/AUTO DIFF TYPE AND SCREEN 2022-01-07 14:05:00 Dyllan Albert [facility] HEMOGLOBIN A1C 2022-01-07 14:05:00 Catia Merino [facility] Ramon Coleman HEPATITIS B SURFACE 2021-09-06 05:47:00 [facility] ANTIGEN Center HEPATITIS B SURFACE 2021-09-06 05:47:00 [facility] ANTIBODY Center HEPATITIS B CORE 2021-09-06 05:47:00 [facility] ANTIBODY, IGM Center XR CHEST 2 VW 2021-05-12 16:27:08 Turner Garcia [facility] RAPID INFLUENZA A/B 2021-05-12 15:13:00 Turner Garcia [facility] NOTICE OF PRIVACY 2021-05-12 14:43:20 Doctor Unassigned, [facility] PRACTICES [facility] CONSENT/REFUSAL FOR 2021-05-12 14:43:06 Doctor Unassigned, [facility] DIAGNOSIS AND TREATMENT [facility] Plan of Care Planned Activity Planned Date Details Comments Source Future Scheduled 2022-04-21 DEPRESSION SCREENING [facility] Test 00:00:00 (12+) [code = Medical [place] DEPRESSION SCREENING (12+)] Future Scheduled 2022-02-28 HEPATITIS B VACCINES [facility] Test 10:00:19 (1 of 3 - 3-dose series) [code = HEPATITIS B VACCINES (1 of 3 - 3-dose series)] Future Scheduled 2022-02-28 COVID-19 VACCINE (#1) [facility] Test 10:00:19 [code = COVID-19 VACCINE (#1)] Future Scheduled 2022-02-28 Pneumococcal Vaccine: [facility] Test 10:00:19 Pediatrics (0 to 5 Years) and At-Risk Patients (6 to 64 Years) (1 - PCV) [code = Pneumococcal Vaccine: Pediatrics (0 to 5 Years) and At-Risk Patients (6 to 64 Years) (1 - PCV)] Future Scheduled 2022-02-[address] [facility] Test 10:00:19 (procedure) [code = 017644744] Future Scheduled 2022-02-28 COLONOSCOPY SCREENING [facility] Test 10:00:19 [code = COLONOSCOPY SCREENING] Future Scheduled 2022-02-28 INFLUENZA VACCINE [facility] Test 10:00:19 [code = INFLUENZA VACCINE] Future Scheduled 2022-02-12 HEPATITIS B VACCINES [facility] Test 07:56:41 (1 of 3 - 3-dose series) [code = HEPATITIS B VACCINES (1 of 3 - 3-dose series)] Future Scheduled 2022-02-12 COVID-19 VACCINE (#1) [facility] Test 07:56:41 [code = COVID-19 VACCINE (#1)] Future Scheduled 2022-02-12 Pneumococcal Vaccine: [facility] Test 07:56:41 Pediatrics (0 to 5 Years) and At-Risk Patients (6 to 64 Years) (1 - PCV) [code = Pneumococcal Vaccine: Pediatrics (0 to 5 Years) and At-Risk Patients (6 to 64 Years) (1 - PCV)] Future Scheduled 2022-02-12 Hepatitis C screening [facility] Test 07:56:41 (procedure) [code = 404771844] Future Scheduled 2022-02-12 COLONOSCOPY SCREENING [facility] Test 07:56:41 [code = COLONOSCOPY SCREENING] Future Scheduled 2022-02-12 INFLUENZA VACCINE [facility] Test 07:56:41 [code = INFLUENZA VACCINE] Future Scheduled 2022-02-07 HEPATITIS B VACCINES [facility] Test 15:27:38 (1 of 3 - 3-dose series) [code = HEPATITIS B VACCINES (1 of 3 - 3-dose series)] Future Scheduled 2022-02-07 COVID-19 VACCINE (#1) [facility] Test 15:27:38 [code = COVID-19 VACCINE (#1)] Future Scheduled 2022-02-07 Pneumococcal Vaccine: [facility] Test 15:27:38 Pediatrics (0 to 5 Years) and At-Risk Patients (6 to 64 Years) (1 - PCV) [code = Pneumococcal Vaccine: Pediatrics (0 to 5 Years) and At-Risk Patients (6 to 64 Years) (1 - PCV)] Future Scheduled 2022-02-07 Hepatitis C screening [facility] Test 15:27:38 (procedure) [code = 832218287] Future Scheduled 2022-02-07 COLONOSCOPY SCREENING [facility] Test 15:27:38 [code = COLONOSCOPY SCREENING] Future Scheduled 2022-02-07 INFLUENZA VACCINE [facility] Test 15:27:38 [code = INFLUENZA VACCINE] Future Scheduled 2022-01-25 HEPATITIS B VACCINES [facility] Test 11:11:15 (1 of 3 - 3-dose series) [code = HEPATITIS B VACCINES (1 of 3 - 3-dose series)] Future Scheduled 2022-01-25 COVID-19 VACCINE (#1) [facility] Test 11:11:15 [code = COVID-19 VACCINE (#1)] Future Scheduled 2022-01-25 Pneumococcal Vaccine: [facility] Test 11:11:15 Pediatrics (0 to 5 Years) and At-Risk Patients (6 to 64 Years) (1 - PCV) [code = Pneumococcal Vaccine: Pediatrics (0 to 5 Years) and At-Risk Patients (6 to 64 Years) (1 - PCV)] Future Scheduled 2022-01-25 Hepatitis C screening [facility] Test 11:11:15 (procedure) [code = 412836574] Future Scheduled 2022-01-25 COLONOSCOPY SCREENING [facility] Test 11:11:15 [code = COLONOSCOPY SCREENING] Future Scheduled 2022-01-25 INFLUENZA VACCINE [facility] Test 11:11:15 [code = INFLUENZA VACCINE] [...] [facility] s Test 00:00:00 (procedure) [code = [facility] [id number]] Future Scheduled [address] [facility] Test 00:00:00 (procedure) [code = [facility] 88131783] Future Scheduled [address] [facility] Test 00:00:00 (procedure) [code = [facility] 67673877] Future Scheduled [address] [facility] Test 00:00:00 (procedure) [code = [facility] 10226624] Future Scheduled [address] [facility] Test 00:00:00 (procedure) [code = [facility] 17707479] Future Scheduled 1995 DTAP/TDAP/TD VACCINES CH I [...] HEPATITIS C Medical Center SCREENING] Future Scheduled [address] [facility] Test 00:00:00 Counseling and Medical Cente r Screening (12+) [code = Tobacco Cessation Counseling and Screening (12+)] Future Scheduled 1981 COVID-19 VACCINE (#1) CH [...] Roopa ter VACCINE (#1)] Future Scheduled [address] [facility] Test 00:[facility] malignant neoplasm of Medica l Center colon (procedure) [code = 326821637] Future Scheduled 1975 Sigmoidoscopy [facility]] Medical Cente r Future Scheduled [address] [facility] Test 00:00:00 (combo) [code = CT Medical C enter Colonography (combo)] Future Scheduled [address] [facility] Test 00:00:00 malignant neoplasm of Medica l Center colon (procedure) [code = 249141987] Future Scheduled [address] [facility] Test 00:00:00 malignant neoplasm of Medica [facility] Center colon (procedure) [code = 594195205] Future Scheduled [address] [facility] Test 00:00:00 malignant neoplasm of Medica l Center colon (procedure) [code = 706629298] Future Scheduled [address] [facility] Test 00:00:00 malignant neoplasm of Medica l Center colon (procedure) [code = 067646878] Future Scheduled 1975 Sigmoidoscopy [facility]] Medical Cente r Future Scheduled [address] [facility] Test 00:00:00 (combo) [code = CT Medical C enter Colonography (combo)] Future Scheduled [address] [facility] Test 00:00:00 malignant neoplasm of Medica l Center colon (procedure) [code = 921161771] Future Scheduled [address] [facility] Test 00:00:00 malignant neoplasm of Medica l Center colon (procedure) [code = 550926626] Future Scheduled [address] [facility] Test 00:00:00 malignant neoplasm of Medica l Center colon (procedure) [code = 083888194] Future Scheduled [address] [facility] Test 00:00:00 malignant neoplasm of Medica l Center colon (procedure) [code = 487406168] Future Scheduled 1975 Sigmoidoscopy [facility]] Medical Cente r Future Scheduled [address] [facility] Test 00:00:00 (combo) [code = CT Medical C enter Colonography (combo)] Future Scheduled [address] [facility] Test 00:00:00 malignant neoplasm of Medica l Center colon (procedure) [code = 830963579] Future Scheduled [address] [facility] Test 00:00:00 malignant neoplasm of Medica l Center colon (procedure) [code = 755956867] Future Scheduled [address] [facility] Test 00:00:00 malignant neoplasm of Medica l Center colon (procedure) [code = 786330940] Future Scheduled [address] [facility] Test 00:00:00 malignant neoplasm of Medica l Center colon (procedure) [code = 562196008] Future Scheduled 1975 Sigmoidoscopy [facility]] Medical Cente r Future Scheduled [address] [facility] Test 00:00:00 (combo) [code = CT Medical C enter Colonography (combo)] Future Scheduled [address] [facility] [facility] Test 00:00:00 malignant neoplasm of Medica l Center colon (procedure) [code = 795147067] Future Scheduled [address] [facility] Test 00:00:00 malignant neoplasm of Medica l Center colon (procedure) [code = 553263848] Future Scheduled [address] [facility] Test 00:00:00 malignant neoplasm of Medica l Center colon (procedure) [code = 187265116] Future Scheduled [address] [facility] Test 00:00:00 malignant neoplasm of Medica l Center colon (procedure) [code = 320071984] Future Scheduled 1975 S[facility]oidoscopy [facility]] Medical Cente r Future Scheduled [address] [facility] Test 00:00:00 (combo) [code = CT Medical C enter Colonography (combo)] Future Scheduled [address] [facility] Test 00:00:00 malignant neoplasm of Medica l Center colon (procedure) [code = 806854476] Future Scheduled [address] [facility] [facility] Test 00:00:00 malignant neoplasm of Medica l Center colon (procedure) [code = 067338044] Future Scheduled [address] [facility] Test 00:00:00 malignant neoplasm of Medica l Center colon (procedure) [code = 946933299] Encounters Start End Encounter Admission Attending Care Care Encounter Source Date/Time Date/Time Type Type Clinicians Facility Department ID 2022-04-23 2022-04-23 Outpatient [facility] [id number] [place] 00:00:00 00:00:[address] 2022-04-11 2022-04-11 Outpatient [facility] [id number] [place] 00:00:00 00:00:[address] 2022-04-11 2022-04-11 Outpatient [facility] [id number] [place] 00:00:00 00:00:[address] 2022-03-11 2022-03-11 Outpatient [facility] [id number] [place] 00:00:00 00:00:[address] 2022-02-26 2022-02-26 Telephone Shane, 1.2.840.1 [id number] Methodi 00:00:00 00:00:[address] 3.430.2.7 Hospit a .3.562968 l .8 2022-02-07 2022-02-07 Office Asked, No Pcp 1.2.840.1 [id number] Methodi 15:00:00 16:33:51 Visit Rochelle Pennington [address]279.1.[address] 3.430.2.7 Hospit a .3.439168 l .8 2022-02-07 2022-02-07 Travel 1.2.840.1 1.2.654.691 [id number] [facility] 00:00:00 00:00:[address] 3.430.2.7 0.2.7.3.698 spita .3.750462 084.8 l .8 2022-02-01 2022-02-01 Telephone Gianna, 1.2.840.1 [id number] 21 [id number] Methodi 00:00:00 00:00:[address] 3.430.2.7 Hospit a .3.666806 l .8 2022-01-25 2022-01-25 Telephone Antoinette, 1.2.840.1 [id number] [facility]i 00:00:00 00:00:[address] 3.430.2.7 Hospit a .3.239855 l .8 2022-01-01 2022-01-16 Office Dyllan Albert 1.2.840.1 [id number] Methodi 09:00:00 04:17:[address] 3.430.2.7 Hospit a .3.502657 l .8 2022-01-11 2022-01-11 Telephone TelloKwabena2.840.1 [id number] 21 [id number] Methodi 00:00:00 00:00:[address] 3.430.2.7 Hospit a .3.140693 l .8 2022-01-09 2022-01-09 [facility] Dyllan Albert 1.2.840.1 [id number] Methodi 07:17:00 17:05:[address] 3.430.2.7 Hospit a .3.483954 l .8 2022-01-09 2022-01-09 Anesthesia Carolyn Solorzano 1.2.840. 1 [id number] Methodi 12:26:00 15:04:00 Event Whitney Cano 26951.1.[address] 3.430.2.7 Hospit a .3.876337 l .8 2022-01-09 2022-01-09 Surgery Dyllan Albert 1.2.840.1 [id number] Methodi 11:27:00 13:02:[address] 3.430.2.7 Hospit a .3.264871 l .8 2022-01-07 2022-01-07 Hospital Dyllan Albert 1.2.840.1 [id number] 2100 [id number] Methodi 10:05:52 23:59:[address] 3.430.2.7 Hospit a .3.562119 l .8 2022-01-07 2022-01-07 Pre-Admiss Dyllan Albert 1.2.840.1 [id number] 21 [id number] Methodi 09:00:00 10:00:[address] Testing 3.430.2.7 Hospit a .3.572386 l .8 2022-01-07 2022-01-07 Travel 1.2.840.1 1.2.067.283 7104 [id number] Methodi 00:00:00 00:00:[address] 3.430.2.7 0.2.7.3.698 Ho spita .3.394943 084.8 l .8 2022-01-01 2022-01-01 Prep for Antoinette, 1.2.840.1 [id number] Methodi 00:00:00 00:00:00 Surgery April [address]42.1.[address] 3.430.2.7 Hospit a .3.853064 l .8 2021-12-26 2021-12-26 Telephone Tello, 1.2.840.1 [id number] 21 [id number] Methodi 00:00:00 00:00:[address] 3.430.2.7 Hospit a .3.319595 l .8 2021-12-25 2021-12-25 Telephone Antoinette, 1.2.840.1 [id number] Methodi 00:00:00 00:00:[address] 3.430.2.7 Hospit a .3.123989 l .8 2021-09-06 2021-09-06 Lab [facility] [id number] 00:00:00 00:00:00 [facility] 2021-09-06 2021-09-06 Lab [facility] [id number] 00:00:00 00:00:00 [facility] 2021-05-13 2021-05-13 Letter SALBADOR Cabrera 1.2.840.114 [id number] Univers 00:00:00 00:00:00 (Out) Desi CONRAD 350.1.13.10 it [facility] 4.2.7.2.686 [facility] [id number] [facility] 019 Branch 2021-05-12 2021-05-12 Emergency X [facility] ERT [id number] Univers 08:47:00 11:17:00 TURNER [facility] 2021-05-12 2021-05-12 Emergency [facility] 1.2.960.365 [id number] Univers 08:47:00 11:17:00 Turner MARIE 350.1.13.10 [facility] 4.2.7.2.686 [facility] [id number] [address] Results Test Description Test Time Test Comments Results Result Comments Source POC glucose 2022-01-09 21:00:00 Test Item Value Reference Range Interpretation Comme nts POC glucose (test code = 214 mg/dL 65-99 H Ope rator Name: Joshua Beltran 77025-2) ID: [id number] hartable: RN Notified Lab Interpretation (test code = Abnormal 79759-0) [facility] [id number] 21:00:00 Test Item Value Reference Range Interpretation Comments POC glucose (test code = 214 mg/dL 65-99 H Ope rator Name: [id number]) Joshua haywood ID: [id number] able: RN Notified Lab Interpretation (test Abnormal code = 14538-1) [facility]2022-09-21 21:00:00 Test Item Value Reference Range Interpretation Comments POC glucose (test code = 214 mg/dL 65-99 H Ope rator Name: [id number]) Joshua haywood ID: [id number] able: RN Notified Lab Interpretation (test Abnormal code = 86969-2) [facility] [id number] 21:00:00 Test Item Value Reference Range Interpretation Comments POC glucose (test code = 214 mg/dL 65-99 H Ope rator Name: [id number]) Joshua haywood ID: [id number] able: RN Notified Lab Interpretation (test Abnormal code = 13702-2) [facility]2022-09-21 13:44:01 Test Item Value Reference Range Interpretation Comments POC sodium (test code = 135 mmol/L 971-538 9334-0) POC potassium (test 4.5 mmol/L 3.5-5.0 code = 6298-4) POC glucose (test code 280 mg/dL 65-99 H = 2339-0) POC creatinine (test 6.0 mg/dl 0.7-1.2 H Operato r Name: code = 07194-0) Israel Roldan ID : [id number] POC hemoglobin (test 11.9 g/dL 14.0-18.0 L code = 718-7) POC hematocrit (test 35 % 41-51 L code = 4544-3) Lab Interpretation Abnormal (test code = 62093-0) [facility] [facility]2022-09-21 13:44:01 Test Item Value Reference Range Interpretation Comments POC sodium (test code = 135 mmol/L 945-820 2833-0) POC potassium (test 4.5 mmol/L 3.5-5.0 code = 6298-4) POC glucose (test code 280 mg/dL 65-99 H = 2339-0) POC creatinine (test 6.0 mg/dl 0.7-1.2 H Operato r Name: code = 92597-8) Israel Roldan ID : [id number] POC hemoglobin (test 11.9 g/dL 14.0-18.0 L code = 718-7) POC hematocrit (test 35 % 41-51 L code = 4544-3) Lab Interpretation Abnormal (test code = 31463-2) [facility]2022-09-21 13:44:01 Test Item Value Reference Range Interpretation Comments POC sodium (test code = 135 mmol/L 473-384 4790-0) POC potassium (test 4.5 mmol/L 3.5-5.0 code = 6298-4) POC glucose (test code 280 mg/dL 65-99 H = 2339-0) POC creatinine (test 6.0 mg/dl 0.7-1.2 H Operato r Name: code = 65635-0) Israel Roldan ID : [id number] POC hemoglobin (test 11.9 g/dL 14.0-18.0 L code = 718-7) POC hematocrit (test 35 % 41-51 L code = 4544-3) Lab Interpretation Abnormal (test code = 40298-8) [facility] [id number] 13:44:01 Test Item Value Reference Range Interpretation Comments POC sodium (test code = 135 mmol/L 788-182 7479-0) POC potassium (test 4.5 mmol/L 3.5-5 code = 6298-4) POC glucose (test code 280 mg/dL 65-99 H = 2339-0) POC creatinine (test 6.0 mg/dl 0.7-1.2 H Operato r Name: code = 05053-0) Israel Roldan ID : [id number] POC hemoglobin (test 11.9 g/dL 14-18 L code = 718-7) POC hematocrit (test 35 % 41-51 L code = 4544-3) Lab Interpretation Abnormal (test code = 01215-4) [facility] [id number] 13:44:00 Test Item Value Reference Range Interpretation Comments Estimated GFR (test mL/min/1.73 m2 A Caterg ory Units code = 23601-1) Interpretati onG1 >=90 Normal or highG 2 60-89 Mildly decrease dG3a 45-59 Mildly to moderately decr ineruO1x 30-44 Moderatel y to severely decrea sedG4 15-29 Severely decreasedG5 <15 Kidney failureThe eGFR was calculated usin g the Chronic Kidney Disease Epidemiology Collaboration ( CKD-EPI) equation. Interpretation is based on recommendati ons of the National Ki dney Foundation-Kidn ey Disease Outcome s Quality Initiat marshall (NKF-KDOQI) pub lished in 2013. Lab Interpretation Abnormal (test code = 80892-0) [facility] [id number] 13:44:00 Test Item Value Reference Range Interpretation Comments Estimated GFR (test mL/min/1.73 m2 A Caterg ory Units code = 87244-9) Interpretati onG1 >=90 Normal or highG 2 60-89 Mildly decrease dG3a 45-59 Mildly to moderately decr kfsyiP7i 30-44 Moderatel y to severely decrea sedG4 15-29 Severely decreasedG5 <15 Kidney failureThe eGFR was calculated usin g the Chronic Kidney Disease Epidemiology Collaboration ( CKD-EPI) equation. Interpretation is based on recommendati ons of the [facility] Disease Outcome s Quality Initiat marshall ([facility]-KDOQI) pub lished in 2013. Lab Interpretation Abnormal (test code = 93069-4) [facility] [id number] 13:44:00 Test Item Value Reference Range Interpretation Comments Estimated GFR (test mL/min/1.73 m2 A Caterg ory Units code = 10789-6) Interpretati onG1 >=90 Normal or highG 2 60-89 Mildly decrease dG3a 45-59 Mildly to moderately decr gbrffR9r 30-44 Moderatel y to severely decrea sedG4 15-29 Severely decreasedG5 <15 Kidney failureThe eGFR was calculated usin g the Chronic Kidney Disease Epidemiology Collaboration ( CKD-EPI) equation. Interpretation is based on recommendati ons of the [facility] Disease Outcome s Quality Initiat marshall ([facility]-KDOQI) pub lished in 2013. Lab Interpretation Abnormal (test code = 18165-5) [facility] [id number] 13:44:00 Test Item Value Reference Range Interpretation Comments Estimated GFR (test mL/min/1.73 m2 A Caterg ory Units code = 44248-4) Interpretati onG1 >=90 Normal or highG 2 60-89 Mildly decrease dG3a 45-59 Mildly to moderately decr bkaekY7a 30-44 Moderate ly to severely decrea sedG4 15-29 Severely decreasedG5 <15 Kidney failureThe eGFR was calculated usin g the Chronic Kidney Disease Epidemiology Collaboration ( CKD-EPI) equation. Interpretation is based on recommendati ons of the [facility] Disease Outcome s Quality Initiat marshall ([facility]-KDOQI) pub lished in 2013. Lab Interpretation Abnormal (test code = 79784-1) [facility] [Presence] in Respiratory specimen by YESENIA with probe [id number] 17:48:52 Test Item Value Reference Range Interpretation Comments SARS-CoV-2 (COVID-19) RNA Not detected [Presence] in Respiratory specimen by YESENIA with probe detection (test code = 96381-2) Whether patient is employed in a Unknown healthcare setting (test code = 97586-4) Whether the patient has symptoms Unknown related to condition of interest (test code = 32826-5) Whether the patient was Unknown hospitalized for condition of interest (test code = 10186-1) Whether the patient was admitted Unknown to intensive care unit (ICU) for condition of interest (test code = 37884-1) Whether patient resides in a Unknown congregate care setting (test code = 55995-7) status (test code = Unknown 04207-3) Date and time of symptom onset Unknown (test code = 43787-7) [facility] Pre/Post [id number] 17:20:24 Test Item Value Reference Range Interpretation [...] complexes-Left axis deviation-Abnormal ECG-No previous ECGs available- [facility] Pre/Post [id number] 17:20:24 Test Item Value Reference Range Interpretation [...] complexes-Left axis deviation-Abnormal ECG-No previous ECGs available- [facility] Pre/Post [id number] 17:20:24 Test Item Value Reference Range Interpretation [...] complexes-Left axis deviation-Abnormal ECG-No previous ECGs available- [facility] Pre/Post [id number] 17:20:24 Test Item Value Reference Range Interpretation [...] complexes-Left axis deviation-Abnormal ECG-No previous ECGs available- [facility] [id number] 15:46:00 Test Item Value Reference Range Interpretation Comments Urine culture (test SEE COMMENT Bacteriu lashell screen code = 3236729) negative. [facility] [id number] 15:46:00 Test Item Value Reference Range Interpretation Comments Urine culture (test SEE COMMENT Bacteriu lashell screen code = 1938166) negative. [facility] [id number] 15:46:00 Test Item Value Reference Range Interpretation Comments Urine culture (test SEE COMMENT Bacteriu lashell screen code = 5210579) negative. [facility] [id number] 15:46:00 Test Item Value Reference Range Interpretation Comments Urine culture (test SEE COMMENT Bacteriu lashell screen code = 0250849) negative. [facility] [id number] 22:01:34 Test Item Value Reference Range Interpretation Comments Hep B S Ab (test code <8.0 See_Comment [Auto mated = 14359-4) message] The system which generated this result transmit brad reference range : <8.0 mIU/mL. Th e reference range was not used to interpret this result as normal/abnormal . TALIB (test code = TALIB) Veneer Puller ID - DB Lab Interpretation Normal (test code = 54170-6) [facility] B surface [id number] 22:01:34 Test Item Value Reference Range Interpretation Comments Hep B S Ab (test code <8.0 See_Comment [Auto mated = 12032-9) message] The system which generated this result transmit brad reference range : <8.0 mIU/mL. Th e reference range was not used to interpret this result as normal/abnormal . TALIB (test code = TALIB) Veneer Puller ID - DB Lab Interpretation Normal (test code = 57024-8) [facility] B surface [id number] 22:01:34 Test Item Value Reference Range Interpretation Comments Hep B S Ab (test code <8.0 See_Comment [Auto mated = 51891-1) message] The system which generated this result transmit brad reference range : <8.0 mIU/mL. Th e reference range was not used to interpret this result as normal/abnormal . TALIB (test code = TALIB) Veneer Puller ID - DB Lab Interpretation Normal (test code = 98231-9) [facility] B surface [id number] 22:01:34 Test Item Value Reference Range Interpretation Comments Hep B S Ab (test code <8.0 See_Comment [Auto mated = 64621-6) message] The system which generated this result transmit brad reference range : <8.0 mIU/mL. Th e reference range was not used to interpret this result as normal/abnormal . TALIB (test code = TALIB) Veneer Puller ID - DB Lab Interpretation Normal (test code = 99613-0) [facility] B surface [id number] 22:01:34 Test Item Value Reference Range Interpretation Comments Hep B S Ab (test code <8.0 See_Comment [Auto mated = 24601-9) message] The system which generated this result transmit brad reference range : <8.0 mIU/mL. Th e reference range was not used to interpret this result as normal/abnormal . TALIB (test code = TALIB) Veneer Puller ID - DB Lab Interpretation Normal (test code = 44472-0) [facility] [id number] 22:01:34 Test Item Value Reference Range Interpretation Comments HEPATITIS B SURFACE ANTIBODY < mIU/mL <8.0 (BEAKER) (test code = 647) [facility] Puller [facility]tis [facility] core antibody, [id number] 21:52:25 Test Item Value Reference Range Interpretation Comments Hep B C IgM (test code = Nonreactive Nonreactive 52110-9) TALIB (test code = TALIB) Veneer Puller ID - DB Lab Interpretation (test Normal code = 54863-7) [facility], [id number] 21:52:25 Test Item Value Reference Range Interpretation Comments Hep B C IgM (test code = Nonreactive Nonreactive 03126-1) TALIB (test code = ATLIB) Veneer Puller ID - DB Lab Interpretation (test Normal code = 77821-1) [facility] hospital[facility] B core antibody, [id number] 21:52:25 Test Item Value Reference Range Interpretation Comments Hep B C IgM (test code = Nonreactive Nonreactive 85370-5) TALIB (test code = TALIB) Veneer Puller ID - DB Lab Interpretation (test Normal code = 37722-0) [facility] Center[facility] core antibody, [id number] 21:52:25 Test Item Value Reference Range Interpretation Comments Hep B C IgM (test code = Nonreactive Nonreactive 56618-9) TALIB (test code = TALIB) Veneer Puller ID - DB Lab Interpretation (test Normal code = 40499-7) [facility] core antibody, [id number] 21:52:25 Test Item Value Reference Range Interpretation Comments Hep B C IgM (test code = Nonreactive Nonreactive 91512-1) TALIB (test code = TALIB) Veneer Puller ID - DB Lab Interpretation (test Normal code = 37976-1) [facility]HE[facility]OSPITALTIS B CORE ANTIBODY, [id number] 21:52:25 Test Item Value Reference Range Interpretation Comments HEPATITIS B CORE IGM ANTIBODY Nonreactive Nonreactive (BEAKER) (test code = 645) Veneer Puller ID - DBHepatitis B surface [id number] 21:52:19 Test Item Value Reference Range Interpretation Comments Hepatitis B surface Nonreactive Nonreactive antigen (test code = 5195-3) TALIB (test code = TALIB) Specimen is considered negative for HBsAg. Lab Interpretation (test Normal code = 03039-4) [facility] [id number] 21:52:19 Test Item Value Reference Range Interpretation Comments Hepatitis B surface Nonreactive Nonreactive antigen (test code = 5195-3) TALIB (test code = TALIB) Specimen is considered negative for HBsAg. Lab Interpretation (test Normal code = 82680-2) [facility] [id number] 21:52:19 Test Item Value Reference Range Interpretation Comments Hepatitis B surface Nonreactive Nonreactive antigen (test code = 5195-3) TALIB (test code = TALIB) Specimen is considered negative for HBsAg. Lab Interpretation (test Normal code = 98904-1) [facility] surface [id number] 21:52:19 Test Item Value Reference Range Interpretation Comments Hepatitis B surface Nonreactive Nonreactive antigen (test code = 5195-3) TALIB (test code = TALIB) Specimen is considered negative for HBsAg. Lab Interpretation (test Normal code = 47360-8) [facility] B surface [id number] 21:52:19 Test Item Value Reference Range Interpretation Comments Hepatitis B surface Nonreactive Nonreactive antigen (test code = 5195-3) TALIB (test code = TALIB) Specimen is considered negative for HBsAg. Lab Interpretation (test Normal code = 75856-6) [facility]HE[facility]ITALTIS B SURFACE [id number] 21:52:19 Test Item Value Reference Range Interpretation Comments HEPATITIS B SURFACE ANTIGEN (2) Nonreactive Nonreactive (BEAKER) (test code = 2585) Specimen is considered negative for HBsAg.
--- NOTE | 2022-05-13 19:23 | ER ---
Nurse's Notes [facility] Name: Chava Pate Age: 47 yrs Sex: Male : 1975 Arrival Date: 05/13/2022 Time: 18:12 Bed IW3 Private MD: Diagnosis: Hypotension of hemodialysis Presentation: 05/13 19:04 Chief complaint: Patient states: "I have a BP machine and I took a few readings and ss they were low. I'm a dialysis patient so I was concerned. ". Coronavirus screen: Client denies travel out of the [place] in the last 14 days. Ebola Screen: Patient denies exposure to infectious person. Patient denies travel to an Ebola-affected area in the 21 days before illness onset. Initial Sepsis Screen: Does the patient meet any 2 criteria? No. Patient's initial sepsis screen is negative. Does the patient have a suspected source of infection? No. Patient's initial sepsis screen is negative. Risk Assessment: Do you want to hurt yourself or someone else? Patient reports no desire to harm self or others. Onset of symptoms was May 13, 2022. 19:04 Method Of Arrival: Ambulatory ss 19:04 Acuity: EDINSON 3 ss Triage Assessment: 19:10 General: Appears in no apparent distress. comfortable, well groomed, well developed, pf1 Behavior is calm, cooperative, appropriate for age, quiet. 19:10 Pain: Denies pain. EENT: No deficits noted. No signs and/or symptoms were reported pf1 regarding the EENT system. Neuro: Level of Consciousness is awake, alert, obeys commands, Oriented to person, place, time, situation. Cardiovascular: Reports low BP after dialysis today. Respiratory: No deficits noted. Airway is patent Trachea midline Respiratory effort is even, unlabored, Respiratory pattern is regular, symmetrical. GI: No deficits noted. No signs and/or symptoms were reported involving the gastrointestinal system. Abdomen is flat, non-distended. : No deficits noted. No signs and/or symptoms were reported regarding the genitourinary system. Derm: No deficits noted. No signs and/or symptoms reported regarding the dermatologic system. Musculoskeletal: No deficits noted. No signs and/or symptoms reported regarding the musculoskeletal system. Historical: - Allergies: 19:06 No Known Allergies; ss - PMHx: 19:06 kidney disease; PERIPHERAL NEUROPATHY; Hypertensive disorder; Diabetes - NIDDM; ss - PSHx: 19:06 fistula L arm; ss - Immunization history:: Adult Immunizations unknown. - Social history:: Smoking status: unknown. Screenin:47 [facility] ED Fall Risk Assessment (Adult) History of falling in the last 3 months, pf1 including since admission No falls in past 3 months (0 pts) Confusion or Disorientation No (0 pts) Intoxicated or Sedated No (0 pts) Impaired Gait No (0 pts) Mobility Assist Device Used No (0 pt) Altered Elimination No (0 pt) Score/Fall Risk Level 0 - 2 = Low Risk Oriented to surroundings, Maintained a safe environment, Educated pt \\T\\ family on fall prevention, incl call for assistance when getting out of bed, Assessed \\T\\ reinforced patient's understanding of fall precautions, Provided non-skid footwear, Hourly rounding (assess needs \\T\\ fall precautionary measures) done, Used ambulatory aids as needed (educated on \\T\\ assisted with), Used gait belt as appropriate. Abuse screen: Denies threats or abuse. Nutritional screening: No deficits noted. Tuberculosis screening: No symptoms or risk factors identified. Assessment: 19:15 General: see triage assessment. pf1 Vital Signs: 19:06 BP 123 / 82; Pulse 95; Resp 16; Temp 98.2(TE); Pulse Ox 100% on R/A; Weight 96 kg; ss ED Course: 18:12 Patient arrived in ED. ja2 18:15 Irina Jiménez FNP-C is [facility]. snw 18:15 Urbano Uribe DO is Attending Physician. snw 19:05 Triage completed. ss 19:06 Arm band placed on right wrist. ss 19:48 No provider procedures requiring assistance completed. Patient did not have IV access pf1 during this emergency room visit. 19:49 Patient has correct armband on for positive identification. pf1 Administered Medications: No medications were administered Medication: 19:49 VIS not applicable for this client. pf1 Outcome: 19:23 Discharge ordered by . snw 19:48 Discharged to home ambulatory. pf1 19:48 Condition: stable 19:48 Discharge instructions given to patient, Instructed on discharge instructions, follow up and referral plans. Demonstrated understanding of instructions, follow-up care. 19:50 Patient left the ED. pf1 Signatures: Irina Jiménez, POCKET CUTTER-C POCKET CUTTER-Csnw Virginie Mackay, RN RN April John Pamala, RN RN pf1
--- NOTE | 2022-05-13 19:23 | EDPHYS ---
Physician Documentation [facility] Name: Chava Pate Age: 47 yrs Sex: Male : 1975 Arrival Date: 05/13/2022 Time: 18:12 Bed IW3 Private MD: ED Physician Urbano Uribe HPI: 05/13 19:10 This 47 yrs old Male presents to ER via Ambulatory with complaints of Blood snw Pressure Problem, Dizziness, Doesn't Feel Right. 19:10 Pt has dialysis M/W/F, states dry weight is 96kg. Today pt had dialysis. Usually he snw feels his blood pressure go back to his norm post some rest. Today pt states he just has not felt like he is recovering as quickly and remains with lower than norm BP. 100s Systolic. Onset: The symptoms/episode began/occurred acutely. Severity of symptoms: At their worst the symptoms were mild. It is unknown whether or not the patient has had similar symptoms in the past. as noted. VSS upon triage. Historical: - Allergies: 19:06 No Known Allergies; ss - PMHx: 19:06 kidney disease; PERIPHERAL NEUROPATHY; Hypertensive disorder; Diabetes - NIDDM; ss - PSHx: 19:06 fistula L arm; ss - Immunization history:: Adult Immunizations unknown. - Social history:: Smoking status: unknown. ROS: 19:09 Constitutional: Negative for fever, chills, and weight loss, Eyes: Negative for injury, snw pain, redness, and discharge, ENT: Negative for injury, pain, and discharge. 19:09 Neuro: Positive for lightheadedness with lower than normal blood pressure. Exam: 19:08 Constitutional: This is a well developed, well nourished patient who is awake, alert, snw and in no acute distress. Head/Face: Normocephalic, atraumatic. Eyes: Pupils equal round and reactive to light, extra-ocular motions intact. Lids and lashes normal. Conjunctiva and sclera are non-icteric and not injected. Cornea within normal limits. Periorbital areas with no swelling, redness, or edema. ENT: Nares patent. No nasal discharge, no septal abnormalities noted. Tympanic membranes are normal and external auditory canals are clear. Oropharynx with no redness, swelling, or masses, exudates, or evidence of obstruction, uvula midline. Mucous membranes moist. Neck: Trachea midline, no thyromegaly or masses palpated, and no cervical lymphadenopathy. Supple, full range of motion without nuchal rigidity, or vertebral point tenderness. No Meningismus. Chest/axilla: Normal chest wall appearance and motion. Nontender with no deformity. No lesions are appreciated. Cardiovascular: Regular rate and rhythm with a normal S1 and S2. No gallops, murmurs, or rubs. Normal PMI, no JVD. No pulse deficits. Respiratory: Lungs have equal breath sounds bilaterally, clear to auscultation and percussion. No rales, rhonchi or wheezes noted. No increased work of breathing, no retractions or nasal flaring. Abdomen/GI: Soft, non-tender, with normal bowel sounds. No distension or tympany. No guarding or rebound. No evidence of tenderness throughout. Back: No spinal tenderness. No costovertebral tenderness. Full range of motion. Neuro: Awake and alert, GCS 15, oriented to person, place, time, and situation. Cranial nerves II-XII grossly intact. Motor strength 5/5 in all extremities. Sensory grossly intact. Cerebellar exam normal. Normal gait. Psych: Awake, alert, with orientation to person, place and time. Behavior, mood, and affect are within normal limits. Vital Signs: 19:06 BP 123 / 82; Pulse 95; Resp 16; Temp 98.2(TE); Pulse Ox 100% on R/A; Weight 96 kg; ss MDM: 18:57 Patient medically screened. snw 19:25 Differential Diagnosis sepsis, hypotension of dialysis. Data reviewed: vital signs, snw nurses notes, EKG. Counseling: I had a detailed discussion with the patient and/or guardian regarding: the historical points, exam findings, and any diagnostic results supporting the discharge/admit diagnosis, the presence of at least one elevated blood pressure reading (>120/80) during this emergency department visit, the need for outpatient follow up, to return to the emergency department if symptoms worsen or persist or if there are any questions or concerns that arise at home. Special discussion: Based on the history and exam findings, there is no indication for further emergent testing or inpatient evaluation. I discussed with the patient/guardian the need to see the primary care provider for further evaluation of the symptoms. 05/13 19:27 Order name: Glucose, Ancillary Testing; Complete Time: 19:40 EDMS 05/13 18:31 Order name: EKG; Complete Time: 18:32 snw 05/13 18:31 Order name: EKG - Nurse/Tech; Complete Time: 19:49 snw 05/13 19:08 Order name: FSBS; Complete Time: 19:49 snw EC:15 Rate is 90 beats/min. Rhythm is regular. QRS [place] is Normal. MS interval is shortened. snw QT interval is normal. Clinical impression: NSR w/ Non-specific ST/T Changes. Administered Medications: No medications were administered Disposition: 19:16 Co-signature as Attending Physician, Urbano Uribe DO I was immediately available on-site ms3 in the Emergency Department for consultation in the care of the patient. Disposition Summary: 05/13/22 19:23 Discharge Ordered Location: Home snw Condition: Stable snw Diagnosis - Hypotension of hemodialysis snw Followup: snw - With: Emergency Department - When: As needed - Reason: Worsening of condition Followup: snw - With: Private Physician - When: Tomorrow - Reason: Recheck today's complaints, Continuance of care, Re-evaluation by your physician Discharge Instructions: - Discharge Summary Sheet snw - Hypotension snw - Dialysis snw - Form - Blood Pressure Record Sheet snw - Eating Plan for Dialysis snw Forms: - Medication Reconciliation Form snw - Thank You Letter snw - Antibiotic Education snw - Prescription Opioid Use snw Signatures: Irina Jiménez FNP-C GEOGRAPHICAL HISTORIAN-Csnw Virginie Mackay RN MARCELA ss Urbano Uribe DO DO ms3 Dora munson RN RN pf1
[2022-05-13 21:52] VITALS: BP 123/82; TEMP 98.2; O2SAT 100
--- NOTE | 2022-05-14 12:26 | EKG ---
Test Date: 2022-05-13 Test Time: 19:16:51 Anesthesia Technician: NICOLE MEASUREMENT RESULTS: Intervals: Rate: 90 DC: 106 QRSD: 82 QT: 376 QTc: 459 [place]: P: 52 DC: 106 QRS: -27 T: 62 INTERPRETIVE STATEMENTS: Sinus rhythm with short DC Otherwise normal ECG Compared to ECG 01/28/2022 13:13:29 Short DC interval now present T-wave abnormality no longer present Electronically Signed On 05-14-22 12:24:52 CHRISTIAN EDUCATION DIRECTOR by Mason Jasso
== END 2022-05-13 19:50 | disposition home or self-care (01) ==
LOC: ER 18:08
DX: I95.3 Hypotension of hemodialysis (principal); E11.22 Type 2 diabetes mellitus with diabetic chronic kidney disease; N18.6 End stage renal disease; Z99.2 Dependence on renal dialysis
CPT/HCPCS: 82947; 93005; 99281

== ENCOUNTER 2022-07-03 10:08 | Emergency (ER) | payer BC, OTHER ==
--- OUTSIDE RECORDS SUMMARY | 2022-07-03 10:13 | XMS REPORT | Continuity of Care Document ---
:[address] [facility] t Address [address] [facility] [address] [place] [id number] Care Team Providers Name Role Phone RITA DEYURSTON Primary Care Physician Unavailable Gorge TOMLINC, Rochelle Gomez Attending Clinician [phone] Kamilla Tello MA Attending Clinician Unavailable Malorie Lopez MA Attending Clinician Unavailable Gisele Lynn MA Attending Clinician Unavailable Asked, No Pcp Attending Clinician Unavailable Tabatha Katz MA Attending Clinician Unavailable Antoinette MEDRANO, April Attending Clinician Unavailable Dyllan Albert MD Attending Clinician Carolyn Solorzano MD Attending Clinician [phone] Whitney Dow Attending Clinician Desi Cabrera [...] Added automatic ally from request for surgery [id number] No known No known Disease Unive rs active active ity of problems problems [facility] Allergies, Adverse Reactions, Alerts Allergy Allergy Status Severity Reaction(s) Onset Inactive Treating Comm ents Source Name Type Date Date Clinician NO KNOWN Drug Active Marlon ALLERGIE Class ity of S [facility] Family History Family Member Diagnosis Comments Start Date Stop Date Source Natural father No Known Problems [facility] Natural mother Stroke [facility] Social History Social Habit Start Date Stop Date Quantity Comments Source Exposure to Not sure [facility]-CoV-[address] [facility] (event) [place] Alcohol intake 2022-02-05 2022-02-05 Lifetime [facility] 00:00:00 00:00:00 non-drinker (finding) Tobacco use and 2022-01-07 2022-01-07 Smokeless tobacco [facility] exposure 00:00:00 00:00:00 non-user Sex Ass[birth year] At [birth year] [facility] 00:00:00 00:00:00 Smoking Status Start Date Stop Date Source Unknown if ever smoked [facility] Never smoked tobacco [facility] ospital Medications Ordered Filled Start Stop Current Ordering Indication Dosage Frequency Signature Comments Components Source Medication Medication Date Date Medication? Clinician (SIG) Name Name calcitrioL Yes .5ug Take 2 Metho di (ROCALTROL) 1-[address] 0.25 MCG 09:51: (0.5 mcg Hospi ta capsule 57 total) by l mouth. docusate Yes 250mg Take 1 Method i sodium 1-[address] (COLACE) 09:51: (250 mg Hospit a 250 MG 57 total) by l capsule mouth. gabapentin Yes 100mg Q.5D Take 1 Meth brooke (NEURONTIN) 1-[address] 100 mg 09:51: (100 mg Hospita capsule 57 total) by l mouth 2 (two) times a day. ergocalcife Yes Take by Met hodi rol, 1-[address] vitamin D2, 09:51: Hospit a (VITAMIN D2 57 l ORAL) vitamin B Yes QD Take by Metho di complex 1-[address] tablet 09:51: daily. Hospita extended 57 l release carvediloL Yes 25mg Q.5D Take 1 Metho di (COREG) 25 1-03 tablet (25 st MG tablet 09:51: mg total) Hos [facility] 57 by mouth 2 l (two) times a day with meals. tadalafil Yes 40mg Take 2 Method i (ADCIRCA, 1-[address] CIALIS) 20 09:51: (40 mg Hospi ta mg tablet 57 total) by l mouth as needed. omeprazole Yes 20mg QD Take 1 Metho di (PriLOSEC) 1-[address] 20 MG 09:51: (20 mg Hospita capsule 57 total) by l mouth daily. Mounjaro 5 2021-04 Yes Methodi mg/0.5 mL 05-11 st pen 00:00: Hospita injector 00 l lidocaine-p 2021-04- Apply Meth brooke rilocaine 05-[address] (EMLA) 00:00: 05:59 as needed Hospi ta 2.5-2.5 % 00 :00 for mild l cream pain. Apply to area 30-45 minutes prior to dialysis treatment. losartan 2021-04 Yes 50mg QD Take 1 Methodi (COZAAR) 50 0-31 tablet (50 st MG tablet 00:00: mg total) Hos [facility] 00 by mouth l daily. calcitrioL 2021-04 Yes .5ug Take 2 [...] a day. ergocalcife Yes Take by Met geneti rol, 01-[address] vitamin D2, 17:25: Hospit a (VITAMIN D2 59 l ORAL) vitamin B Yes QD Take by Metho di complex 01-[address] tablet 17:25: daily. Hospita extended 59 l release traMADoL 2021- [place] [id number] 50mg Q6H Take 1 Metho di (Ultram) 50 01-0924 tablet (50 s t mg tablet 00:00: 04:59 mg total) Ho spita 00 :00 by mouth l every 6 (six) hours as needed for moderate pain for up to 2 days .acute pain. traMADoL 2021- No [id number] 50mg Q6H Take 1 Metho di (Ultram) 50 01-09 tablet (50 s t mg tablet 00:00: 04:59 mg total) Ho spita 00 :00 by mouth l every 6 (six) hours as needed for moderate pain for up to 2 days .acute pain. traMAD[place] 2021- [place] [id number] 50mg Q6H Take 1 Metho di (Ultram) 50 01-09 tablet (50 s t mg tablet 00:00: 04:59 mg total) Ho spita 00 :00 by mouth l every 6 (six) hours as needed for moderate pain for up to 2 days .acute pain. traMADoL 2021- [place] [id number] 50mg Q6H Take 1 Metho di (Ultram) 50 01-0924 tablet (50 s t mg tablet 00:00: 04:59 mg total) Ho spita 00 :00 by mouth l every 6 (six) hours as needed for moderate pain for up to 2 days .acute pain. traMAD[place] 2021- [place] [id number] 50mg Q6H Take 1 Metho di (Ultram) [...] 49 :00 total) by l mouth. glipiZIDE 2021-0 2021- No 2.5mg Take 1 Meth brooke (GLUCOTROL) 01-[address] 2.5 MG 24 09:22: 00:00 (2.5 mg Hosp antione hr tablet 49 :00 total) by l mouth. glipiZIDE 2021-0 2021- No 2.5mg Take 1 Meth brooke (GLUCOTROL) 01-[address] 2.5 MG 24 09:22: 00:00 (2.5 mg Hosp antione hr tablet 49 :00 total) by l mouth. glipiZIDE 2021-0 2021- No 2.5mg Take 1 Meth brooke (GLUCOTROL) 01-[address] 2.5 MG 24 09:22: 00:00 (2.5 mg Hosp antione hr tablet 49 :00 total) by l mouth. glipiZIDE 2021-0 2021- No 2.5mg Take 1 Meth brooke (GLUCOTROL) 01-[address] 2.5 MG 24 09:22: 00:00 (2.5 mg Hosp antione hr tablet 49 :00 total) by l mouth. carvediloL 2021-2021- No 25mg Take 1 Meth brooke (COREG) 25 01-07 tablet (25 st MG tablet 09:22: 00:00 mg total) Ho spita 37 :00 by mouth. l carvediloL 2021-0 2021- No 25mg Take 1 Meth brooke (COREG) 25 01-07 tablet (25 st MG tablet 09:22: 00:00 mg total) Ho spita 37 :00 by mouth. l carvediloL 2021-0 2021- No 25mg Take 1 Meth brooke (COREG) 25 01-07 tablet (25 st MG tablet 09:22: 00:00 mg total) Ho spita 37 :00 by mouth. l carvediloL 2021-0 2021- No 25mg Take 1 Meth brooke [...] 2 l (two) times a day. furosemide 2022-0 Yes 40mg Q.5D Take 1 Metho di (LASIX) 40 8-29 tablet (40 st mg tablet 00:00: mg total) Hos [facility] 00 by mouth 2 l (two) times a day. furosemide 2021-0 Yes 40mg Q.5D Take 1 Metho di (LASIX) 40 8-29 tablet (40 st mg tablet 00:00: mg total) Hos [facility] 00 by mouth 2 l (two) times a day. furosemide 2021-0 Yes 40mg Q.5D Take 1 Metho di (LASIX) 40 8-29 tablet (40 st mg tablet 00:00: mg total) Hos [facility] 00 by mouth 2 l (two) times a day. furosemide 2021-0 Yes 40mg Q.5D Take 1 Metho di (LASIX) 40 8-29 tablet (40 st mg tablet 00:00: mg total) Hos [facility] 00 by mouth 2 l (two) times a day. albuterol Yes [id number] 2{puff} Inhale 2 Univers 90 1-22 Puffs ity of mcg/actuati 00:00: every 4 Kj as on inhaler 00 (four) Medical hours as Branch needed for Wheezing or Shortness of Breath. proMETHazin 0 Yes [id number] 25mg Take 1 Univers e 25 mg 1-22 tablet by ity of tablet 00:00: mouth [place] 00 every 6 Medical (six) Branch hours as needed for Nausea and Vomiting (N/V). albuterol 0 Yes [id number] 2{puff} Inhale 2 Univers 90 1-22 Puffs ity of mcg/actuati 00:00: every 4 Kj as on inhaler 00 (four) Medical hours as Branch needed for Wheezing or Shortness of Breath. proMETHazin 0 Yes [id number] 25mg Take 1 Univers e 25 mg 1-22 tablet by ity of tablet 00:00: mouth [place] 00 every 6 Medical (six) Branch hours as needed for Nausea and Vomiting (N/V). amoxicillin 0 202- No [id number] 1{tbl} Take 1 Univers -clavulanat 1-22 01-30 tablet by it y of e 875-125 [...] days. Indication s: COUGH amoxicillin 2021- No [id number] 1{tbl} Take 1 Univers -clavulanat 05-12 tablet [...] Observation Value Comments Source Systolic blood 2021-05-12 134 mm[Hg] [facility] of pressure 14:46:00 [facility] Diastolic blood 2021-05-12 66 mm[Hg] [facility] f pressure 14:46:00 [facility] Heart rate 2021-05-12 118 /min [facility] 14:46:00 [facility] Body temperature 2021-05-12 37.33 Chey [facility] 14:46:00 [facility] Respiratory rate 2021-05-12 22 /min [facility] 14:46:00 [facility] Body weight 2021-05-12 102.059 kg [facility] 14:46:00 [facility] Oxygen saturation 2021-05-12 100 /min [facility] in Arterial blood 14:46:00 [facility] by Pulse oximetry Branch Systolic blood 2022-04-23 155 mm[Hg] did not take [facility] pressure 15:38:00 blood pressure Hospital medication Diastolic blood 2022-04-23 88 mm[Hg] did not take [facility] pressure 15:38:00 blood pressure Hospital medication Heart rate 2022-04-23 92 /min [facility] 15:38:00 Hospital Body temperature 2022-04-23 36.67 Chey [facility] 15:38:00 Hospital Body height 2022-04-23 172.7 cm [facility] 15:38:00 Hospital Body weight 2022-04-23 97.433 kg [facility] 15:38:00 Hospital BMI 2022-04-23 32.66 kg/m2 [facility] 15:38:00 Hospital Oxygen saturation 2022-04-23 98 /min [facility] in Arterial blood 15:38:00 Hospital by Pulse oximetry Systolic blood 2022-02-07 182 mm[Hg] [facility] pressure 20:01:00 Hospital Diastolic blood 2022-02-07 92 mm[Hg] [facility] pressure 20:01:00 Hospital Heart rate 2022-02-07 89 /min [facility] 20:01:00 Hospital Body temperature 2022-02-07 36.44 Chey [facility] 20:01:00 Hospital Body height 2022-02-07 172.7 cm [facility] 20:01:00 Hospital Body weight 2022-02-07 107.049 kg [facility] 20:01:00 [facility] BMI 2022-02-07 35.88 kg/m2 [facility] 20:01:00 Hospital Oxygen saturation 2022-02-07 98 /min [facility] in Arterial blood 20:01:00 Hospital by Pulse oximetry Systolic blood 2022-01-09 147 mm[Hg] [facility] pressure 21:30:00 Hospital Diastolic blood 2022-01-09 85 mm[Hg] [facility] pressure 21:30:00 Hospital Heart rate 2022-01-09 92 /min [facility] 21:30:00 [facility] Body temperature 2022-01-09 36.56 Chey [facility] 21:30:00 Hospital Oxygen saturation 2022-01-09 99 /min [facility] in Arterial blood 21:30:00 Hospital by Pulse oximetry Respiratory rate 2022-01-09 18 /min [facility] 21:30:00 Hospital Body height 2022-01-09 172.7 cm [facility] 13:28:00 Hospital Body weight 2022-01-09 103.874 kg [facility] 13:28:00 [facility] BMI 2022-01-09 34.82 kg/m2 [facility] 13:28:00 Hospital Procedures Procedure Date / Time Performing Clinician Source Performed US CAROTID DUPLEX 2022-04-11 18:00:00 Rochelle [facility] POC GLUCOSE 2022-01-09 20:58[facility] 2022-01-09 20:02:00 Dyllan Albert [place] AN ELECTIVE 2022-01-09 17:35:00 Carolyn Solorzano spital SUPRAGLOTTIC AIRWAY Donna BELLE, AV FISTULA 2022-01-09 17:26:00 Shahana [facility] ESTIMATED GFR 2022-01-09 13:43:00 Dyllan Alberttal POC PANEL 2022-01-09 13:43:00 Dyllan Albert ABO AND RH CONFIRMATION 2022-01-09 13:40:00 Shahana [facility] BY PROTOCOL XR CHEST 2 VW 2022-01-07 15:20:51 Dyllan Albert ECG PRE/POST OP 2022-01-07 14:56:02 Dyllan Albert COVID-19 QUALITATIVE 2022-01-07 14:34:00 Shahana [facility] RT-PCR URINE CULTURE 2022-01-07 14:33:00 [facility] AND 2022-01-07 14:33:00 Shahana [facility] MICROSCOPY, WITH REFLEX TO CULTURE COMPREHENSIVE METABOLIC 2022-01-07 14:33:00 [facility] Ramon Coleman ESTIMATED GFR 2022-01-07 14:33:00 Catia Merino [facility] Ramon Coleman PARTIAL THROMBOPLASTIN 2022-01-07 14:05:00 Shahana [facility] TIME (PTT) PROTHROMBIN TIME WITH INR 2022-01-07 14:05:00 Shahana Dyllan [facility] HC COMPLETE BLD COUNT 2022-01-07 14:05:00 Shahana [facility] W/AUTO DIFF TYPE AND SCREEN 2022-01-07 14:05:00 Dyllan Albert [facility] HEMOGLOBIN A1C 2022-01-07 14:05:00 Catia Merino [facility] Ramon Coleman HEPATITIS B SURFACE 2021-09-06 05:47:00 [facility] HEPATITIS B SURFACE 2021-09-06 05:47:00 SAMUEL [facility] ANTIBODY Center HEPATITIS B CORE 2021-09-06 05:47:00 [facility] ANTIBODY, I[facility] Center XR CHEST 2 VW 2021-05-12 16:27:08 Turner Garcia [facility] RAPID INFLUENZA A/B 2021-05-12 15:13:00 Turner Garcia [facility] NOTICE OF PRIVACY 2021-05-12 14:43:20 Doctor Unassigned, [facility] PRACTICES [facility] CONSENT/REFUSAL FOR 2021-05-12 14:43:06 Doctor Unassigned, [facility] DIAGNOSIS AND TREATMENT [facility] Plan of Care Planned Activity Planned Date Details Comments Source Future Scheduled 2022-06-16 COVID-19 VACCINE (#1) [facility] Test 21:38:44 [code = COVID-19 VACCINE (#1)] Future Scheduled 2022-06-16 Pneumococcal Vaccine: [facility] Test 21:38:44 Pediatrics (0 to 5 Years) and At-Risk Patients (6 to 64 Years) (1 - PCV) [code = Pneumococcal Vaccine: Pediatrics (0 to 5 Years) and At-Risk Patients (6 to 64 Years) (1 - PCV)] Future Scheduled 2022-06-16 Hepatitis C screening [facility] Test 21:38:44 (procedure) [code = 477524020] Future Scheduled 2022-06-16 COLONOSCOPY SCREENING [facility] Test 21:38:44 [code = COLONOSCOPY SCREENING] Future Scheduled 2022-06-16 INFLUENZA VACCINE [facility] Test 21:38:44 [code = INFLUENZA VACCINE] Future Scheduled 2022-04-[address] [facility] Test 00:00:00 (12+) [code = Medical Center DEPRESSION SCREENING (12+)] Future Scheduled 2022-04-[address] [facility] Test 00:00:00 (12+) [code = Medical Center DEPRESSION SCREENING (12+)] Future Scheduled 2022-02-28 HEPATITIS B VACCINES [facility] Test 10:00:19 (1 of 3 - 3-dose series) [code = HEPATITIS B VACCINES (1 of 3 - 3-dose series)] Future Scheduled 2022-02-28 COVID-19 VACCINE (#1) [facility] Test 10:00:19 [code = COVID-19 VACCINE (#1)] Future Scheduled 2022-02-28 Pneumococcal Vaccine: [facility] Test 10:00:19 Pediatrics (0 to 5 Years) and At-Risk Patients (6 to 64 Years) (1 - PCV) [code = Pneumococcal Vaccine: Pediatrics (0 to 5 Years) and At-Risk Patients (6 to 64 Years) (1 - PCV)] Future Scheduled 2022-02-28 Hepatitis C screening [facility] Test 10:00:19 (procedure) [code = 825912452] Future Scheduled 2022-02-28 COLONOSCOPY SCREENING [facility] Test 10:00:19 [code = COLONOSCOPY SCREENING] Future Scheduled 2022-02-28 INFLUENZA VACCINE [facility] Test 10:00:19 [code = INFLUENZA VACCINE] Future Scheduled 2022-02-12 HEPATITIS B VACCINES [facility] Test 07:56:41 (1 of 3 - 3-dose series) [code = HEPATITIS B VACCINES (1 of 3 - 3-dose series)] Future Scheduled 2022-02-12 COVID-19 VACCINE (#1) [facility] Test 07:56:41 [code = COVID-19 VACCINE (#1)] Future Scheduled 2022-02-12 Pneumococcal Vaccine: [facility] Test 07:56:41 Pediatrics (0 to 5 Years) and At-Risk Patients (6 to 64 Years) (1 - PCV) [code = Pneumococcal Vaccine: Pediatrics (0 to 5 Years) and At-Risk Patients (6 to 64 Years) (1 - PCV)] Future Scheduled 2022-02-12 Hepatitis C screening [facility] Test 07:56:41 (procedure) [code = 038021522] Future Scheduled 2022-02-12 COLONOSCOPY SCREENING [facility] Test 07:56:41 [code = COLONOSCOPY SCREENING] Future Scheduled 2022-02-12 INFLUENZA VACCINE [facility] Test 07:56:41 [code = INFLUENZA VACCINE] Future Scheduled 2022-02-07 HEPATITIS B VACCINES [facility] Test 15:27:38 (1 of 3 - 3-dose series) [code = HEPATITIS B VACCINES (1 of 3 - 3-dose series)] Future Scheduled 2022-02-07 COVID-19 VACCINE (#1) [facility] Test 15:27:38 [code = COVID-19 VACCINE (#1)] Future Scheduled 2022-02-07 Pneumococcal Vaccine: [facility] Test 15:27:38 Pediatrics (0 to 5 Years) and At-Risk Patients (6 to 64 Years) (1 - PCV) [code = Pneumococcal Vaccine: Pediatrics (0 to 5 Years) and At-Risk Patients (6 to 64 Years) (1 - PCV)] Future Scheduled 2022-02-07 Hepatitis C screening [facility] Test 15:27:38 (procedure) [code = 694384617] Future Scheduled 2022-02-07 COLONOSCOPY SCREENING [facility] Test 15:27:38 [code = COLONOSCOPY SCREENING] Future Scheduled 2022-02-07 INFLUENZA VACCINE Method [facility] Test 15:27:38 [code = INFLUENZA VACCINE] Future Scheduled 2022-01-25 HEPATITIS B VACCINES [facility] Test 11:11:15 (1 of 3 - 3-dose series) [code = HEPATITIS B VACCINES (1 of 3 - 3-dose series)] Future Scheduled 2022-01-25 COVID-19 VACCINE (#1) [facility] Test 11:11:15 [code = COVID-19 VACCINE (#1)] Future Scheduled 2022-01-25 Pneumococcal Vaccine: [facility] Test 11:11:15 Pediatrics (0 to 5 Years) and At-Risk Patients (6 to 64 Years) (1 - PCV) [code = Pneumococcal Vaccine: Pediatrics (0 to 5 Years) and At-Risk Patients (6 to 64 Years) (1 - PCV)] Future Scheduled 2022-01-25 Hepatitis C screening [facility] Test 11:11:15 (procedure) [code = 130329046] Future Scheduled 2022-01-25 COLONOSCOPY SCREENING [facility] Test 11:11:15 [code = COLONOSCOPY SCREENING] Future Scheduled 2022-01-25 INFLUENZA VACCINE [facility] Test 11:11:15 [code = INFLUENZA VACCINE] [...] Test 00:00:00 (procedure) [code = [facility] 76063923] Future Scheduled [address] [facility] Test 00:00:00 (procedure) [code = Medical Center 38125864] Future Scheduled [address] [facility] Test 00:00:00 (procedure) [code = Medical Center 30614927] Future Scheduled [address] [facility] Test 00:00:00 (procedure) [code = Medical Center 72408037] Future Scheduled [address] [facility] Test 00:00:00 (procedure) [code = Medical Center 06480634] Future Scheduled [address] [facility] Test 00:00:00 (procedure) [code = Medical Center 11044998] Future Scheduled 1995 DTAP/TDAP/TD VACCINES CH I [...] Cessation Counseling and Screening (12+)] Future Scheduled [address] [...] Medica l Center colon (procedure) [code = 519786904] Future Scheduled [address] [facility] 00:[facility] malignant neoplasm of Medica l Center colon (procedure) [code = 912096498] Future Scheduled [address] [facility] Test 00:00:00 malignant neoplasm of Medica [facility] Center colon (procedure) [code = 222980469] Future Scheduled [address] [facility] Test 00:00:00 malignant neoplasm of Medica l Center colon (procedure) [code = 440006968] Future Scheduled 1975 Sigmoid[facility] Cent[facility] r Future Scheduled [address] [facility] Test 00:00:00 (combo) [code = CT Medical C enter Colonography (combo)] Future Scheduled [address] [facility] Test 00:00:00 malignant neoplasm of Medica l Center colon (procedure) [code = 270611685] Future Scheduled [address] [facility] Test 00:00:00 malignant neoplasm of Medica l Center colon (procedure) [code = 158262994] Future Scheduled [address] [facility] Test 00:00:00 malignant neoplasm of Medica l Center colon (procedure) [code = 340609782] Future Scheduled [address] [facility] Test 00:00:00 malignant neoplasm of Medica l Center colon (procedure) [code = 279186630] Future Scheduled 1975 Sigmoidoscopy [facility]] Medical Cente r Future Scheduled [address] [facility] 00:00:00 (combo) [code = CT Medical C enter Colonography (combo)] Future Scheduled [address] [facility] Test 00:00:00 malignant neoplasm of Medica l Center colon (procedure) [code = 766626877] Future Scheduled [address] [facility] Test 00:00:00 malignant neoplasm of Medica l Center colon (procedure) [code = 671563374] Future Scheduled [address] [facility] Test 00:00:00 malignant neoplasm of Medica l Center colon (procedure) [code = 461012783] Future Scheduled [address] [facility] Test 00:00:00 malignant neoplasm of Medica l Center colon (procedure) [code = 177527052] Future Scheduled 1975 Sigmoidoscopy [facility]] Medical Chirage r Future Scheduled [address] [facility] 00:00:00 (combo) [code = CT Medical C enter Colonography (combo)] Future Scheduled [address] [facility] Test 00:00:00 malignant neoplasm of Medica l Center colon (procedure) [code = 812569041] Future Scheduled [address] [facility] Test 00:00:00 malignant neoplasm of Medica l Center colon (procedure) [code = 041584357] Future Scheduled [address] [facility] Test 00:00:00 malignant neoplasm of Medica l Center colon (procedure) [code = 006951160] Future Scheduled [address] [facility] Test 00:00:00 malignant neoplasm of Medica l Center colon (procedure) [code = 838277790] Future Scheduled 1975 Sigmoidoscopy [facility]] Medical Chirage r Future Scheduled [address] [facility] 00:00:00 (combo) [code = CT Medical C enter Colonography (combo)] Future Scheduled [address] [facility] Test 00:00:00 malignant neoplasm of Medica l Center colon (procedure) [code = 096474068] Future Scheduled [address] [facility] Test 00:00:00 malignant neoplasm of Medica l Center colon (procedure) [code = 230740240] Future Scheduled [address] [facility] Test 00:00:00 malignant neoplasm of Medica l Center colon (procedure) [code = 877186545] Future Scheduled [address] [facility] Test 00:00:00 malignant neoplasm of Medica l Center colon (procedure) [code = 984227932] Future Scheduled 1975 Sigmoidoscopy [facility]] Medical Chirage r Future Scheduled [address] [facility] 00:00:00 (combo) [code = CT Medical C enter Colonography (combo)] Future Scheduled [address] [facility] Test 00:00:00 malignant neoplasm of Medica l Center colon (procedure) [code = 678780883] Future Scheduled [address] [facility] Test 00:00:00 malignant neoplasm of Medica l Center colon (procedure) [code = 088986947] Future Scheduled [address] [facility] Test 00:00:00 malignant neoplasm of Medica l Center colon (procedure) [code = 380079583] Future Scheduled [address] [facility] Test 00:00:00 malignant neoplasm of Medica l Center colon (procedure) [code = 528046557] Future Scheduled 1975 Sigmoidoscopy [facility] Start End Encounter Admission Attending Care Care Encounter Source Date/Time Date/Time Type Type Clinicians Facility Department ID 2022-04-23 2022-04-23 Office [place] [id number] [facility] 10:00:00 10:47:08 Visit Rochelle [id number] [place] 3.430.2.7 Hosp antione .3.731203 l .8 2022-04-23 2022-04-23 Outpatient [facility] [id number] [place] 00:00:00 00:00:[address] 2022-04-23 2022-04-23 Travel 1.2.840.1 [id number] Methodi 00:00:00 00:00:[id number] 3.430.2.7 0.2.7.3.698 Ho spita .3.682496 084.8 l .8 2022-04-19 2022-04-19 Telephone [place] 1.2.840.1 [id number] Methodi 00:00:00 00:00:[id number] [place] 3.430.2.7 Hosp antione .3.098953 l .8 2022-04-18 2022-04-18 Telephone [place], 1.2.840.1 [id number] Methodi 00:00:00 00:00:[address] 3.430.2.7 Hospit a .3.382277 l .8 2022-04-12 2022-04-12 Telephone [place], 1.2.840.1 [id number] Methodi 00:00:00 00:00:[address] [place] 3.430.2.7 Hosp antione .3.719850 l .8 2022-04-11 2022-04-11 Office [place], 1.2.840.1 [id number] Methodi 13:00:00 13:44:34 Visit Rochelle 00036.1.[address] [place] 3.430.2.7 Hosp antione .3.075823 l .8 2022-04-11 2022-04-11 Outpatient [facility] [id number] [address] [place] [address] 00:00:00 00:00:[address] 2022-04-11 2022-04-11 Outpatient [facility] [id number] [place] [address] 00:00:00 00:00:[address] 2022-04-11 2022-04-11 Telephone Gorge, 1.2.840.1 [id number] 2099 [id number] Methodi 00:00:00 00:00:[address] [place] 3.430.2.7 Hosp antione .3.613514 l .8 2022-04-11 2022-04-11 Travel 1.2.840.1 1.2.316.722 8379 [id number] Methodi 00:00:00 00:00:[address] 3.430.2.7 0.2.7.3.698 Ho spita .3.190707 084.8 l .8 2022-04-08 2022-04-08 Telephone Gorge, 1.2.840.1 [id number] 2099 [id number] Methodi 00:00:00 00:00:[address] [place] 3.430.2.7 Hosp antione .3.338354 l .8 2022-04-05 2022-04-05 Telephone Jessica, 1.2.840.1 [id number] 053 [id number] Methodi 00:00:00 00:00:00 Crysandria 51884.1.1 [address] 3.430.2.7 Hospit a .3.082657 l .8 2022-03-11 2022-03-11 Office Gorge, 1.2.840.1 [id number] 9771 Methodi 11:30:00 11:53:30 Visit Rochelle 22564.1.[address] [place] 3.430.2.7 Hosp antione .3.144174 l .8 2022-03-11 2022-03-11 Outpatient [facility] [id number] [address] [place] [address] 00:00:00 00:00:[address] 2022-02-26 2022-02-26 Telephone Shane, 1.2.840.1 [id number] 122 [id number] Methodi 00:00:00 00:00:[address] 3.430.2.7 Hospit a .3.858337 l .8 2022-02-26 2022-02-26 Telephone Shane, 1.2.840.1 [id number] 470 [id number] Methodi 00:00:00 00:00:[address] 3.430.2.7 Hospit a .3.362715 l .8 2022-02-07 2022-02-07 Office Asked, No Pcp 1.2.840.1 [id number] Methodi 15:00:00 16:33:51 Visit Rochelle [place] 92468.1.[address] 3.430.2.7 Hospit a .3.509591 l .8 2022-02-07 2022-02-07 Office Asked, No Pcp 1.2.840.1 [id number] Methodi 15:00:00 16:33:51 Visit Rochelle [place] [address]382.1.[address] 3.430.2.7 Hospit a .3.530779 l .8 2022-02-07 2022-02-07 Travel 1.2.840.1 1.2.590.329 7411 [id number] Methodi 00:00:00 00:00:[address] 3.430.2.7 0.2.7.3.698 Ho spita .3.648022 084.8 l .8 2022-02-07 2022-02-07 Travel 1.2.840.1 1.2.922.508 9789 286250 Methodi 00:00:00 00:00:[address] 3.430.2.7 0.2.7.3.698 Ho spita .3.705716 084.8 l .8 2022-02-01 2022-02-01 Telephone Katz, 1.2.840.1 [id number] 21 [id number] Methodi 00:00:00 00:00:[address] 3.430.2.7 Hospit a .3.433471 l .8 2022-02-01 2022-02-01 Telephone Katz, 1.2.840.1 [id number] Methodi 00:00:00 00:00:[address] 3.430.2.7 Hospit a .3.783935 l .8 2022-01-25 2022-01-25 Telephone Curry, 1.2.840.1 [id number] Methodi 00:00:00 00:00:[address] 3.430.2.7 Hospit a .3.985596 l .8 2022-01-25 2022-01-25 Telephone Curry, 1.2.840.1 [id number] Methodi 00:00:00 00:00:[address] 3.430.2.7 Hospit a .3.141136 l .8 2022-01-01 2022-01-16 Office ShahanaRodneyy 1.2.840.1 [id number] 01745 Methodi 09:00:00 04:17:[address] 3.430.2.7 Hospit a .3.047545 l .8 2022-01-01 2022-01-16 Office ShahanaRodneyy 1.2.840.1 [id number] Methodi 09:00:00 04:17:[address] 3.430.2.7 Hospit a .3.503289 l .8 2022-01-11 2022-01-11 Telephone Omer, 1.2.840.1 [id number] 21 [id number] Methodi 00:00:00 00:00:[address] 3.430.2.7 Hospit a .3.006157 l .8 2022-01-11 2022-01-11 Telephone Tello, 1.2.840.1 [id number] 21 [id number] Methodi 00:00:00 00:00:[address] 3.430.2.7 Hospit a .3.334392 l .8 2022-01-09 2022-01-09 [facility] Dyllan Albert 1.2.840.1 [id number] Methodi 07:17:00 17:05:[address] 3.430.2.7 Hospit a .3.267212 l .8 2022-01-09 2022-01-09 [facility] Dyllan Albert 1.2.840.1 [id number] Methodi 07:17:00 17:05:[address] 3.430.2.7 Hospit a .3.060863 l .8 2022-01-09 2022-01-09 Anesthesia Carolyn Solorzano 1.2.840. 1 [id number] Methodi 12:26:00 15:04:00 Event Whitney Cano 19935.1.[address] 3.430.2.7 Hospit a .3.024988 l .8 2022-01-09 2022-01-09 Anesthesia Carolyn Solorzanobeth 1.2.840. 1 [id number] Methodi 12:26:00 15:04:00 Event Whitney Cano 20536.1.[address] 3.430.2.7 Hospit a .3.412136 l .8 2022-01-09 2022-01-09 Surgery ShahanaRodneyy 1.2.840.1 [id number] 93469 55216 Methodi 11:27:00 13:02:[address] 3.430.2.7 Hospit a .3.369369 l .8 2022-01-09 2022-01-09 Surgery Shahana Dyllan 1.2.840.1 [id number] 92974 Methodi 11:27:00 13:02:[address] 3.430.2.7 Hospit a .3.929741 l .8 2022-01-07 2022-01-07 [facility] Rodney Alberty 1.2.840.1 [id number] 2100 338582 Methodi 10:05:52 23:59:[address] 3.430.2.7 Hospit a .3.231570 l .8 2022-01-07 2022-01-07 [facility] Rodney Alberty 1.2.840.1 [id number] 2099 [id number] Methodi 10:05:52 23:59:[address] 3.430.2.7 Hospit a .3.555661 l .8 2022-01-07 2022-01-07 Pre-Admiss ShahanaRodneyy 1.2.840.1 [id number] 21 [id number] Methodi 09:00:00 10:00:[address] Testing 3.430.2.7 Hospit a .3.853762 l .8 2022-01-07 2022-01-07 Pre-Admiss Dyllan Albert 1.2.840.1 [id number] 21 [id number] Methodi 09:00:00 10:00:[address] Testing 3.430.2.7 Hospit a .3.001540 l .8 2022-01-07 2022-01-07 Travel 1.2.840.1 1.2.505.344 8805 795204 Methodi 00:00:00 00:00:[address] 3.430.2.7 0.2.7.3.698 Ho spita .3.181841 084.8 l .8 2022-01-07 2022-01-07 Travel 1.2.840.1 1.2.151.450 7913 514990 Methodi 00:00:00 00:00:[address] 3.430.2.7 0.2.7.3.698 Ho spita .3.734515 084.8 l .8 2022-01-01 2022-01-01 Prep for Curry, 1.2.840.1 [id number] 2 [id number] Methodi 00:00:00 00:00:00 Surgery April [address].1.[address] 3.430.2.7 Hospit a .3.232828 l .8 2022-01-01 2022-01-01 Prep for Curry, 1.2.840.1 [id number] 2 [id number] Methodi 00:00:00 00:00:00 Surgery April [address].1.[address] 3.430.2.7 Hospit a .3.014866 l .8 2021-12-26 2021-12-26 Telephone Oemr, 1.2.840.1 [id number] 21 [id number] Methodi 00:00:00 00:00:[address] 3.430.2.7 Hospit a .3.528104 l .8 2021-12-26 2021-12-26 Telephone Omer, 1.2.840.1 [id number] 21 [id number] Methodi 00:00:00 00:00:[address] 3.430.2.7 Hospit a .3.760952 l .8 2021-12-25 2021-12-25 Telephone Antoinette, 1.2.840.1 [id number] Methodi 00:00:00 00:00:[address] 3.430.2.7 Hospit a .3.286151 l .8 2021-12-25 2021-12-25 Telephone Antoinette, 1.2.840.1 [id number] Methodi 00:00:00 00:00:[address] 3.430.2.7 Hospit a .3.913956 l .8 2021-09-06 2021-09-06 Lab [facility] [id number] 00:00:00 00:00:00 [facility] 2021-09-06 2021-09-06 [place] [facility] [id number] 00:00:00 00:00:00 [facility] 2021-05-13 2021-05-13 Letter SALBADOR Cabrera 1.2.840.114 [id number] 12 [facility] 00:00:00 00:00:00 (Out) Desi CONRAD 350.1.13.10 it [facility] 4.2.7.2.686 Kj as [id number] [address] 2021-05-12 2021-05-12 Emergency X JOSE KSGEMMA ERT [id number] [facility] 08:47:00 11:17:00 TURNER rodriguez [facility] 2021-05-12 2021-05-12 Emergency Jose [facility] 1.2.806.535 2959 [id number] Univers 08:47:00 11:17:00 Turner MARIE 350.1.13.10 Eliu 4.2.7.2.686 [facility] [id number] [facility] 084 Branch Results Test Description Test Time Test Comments Results Result Comments Source POC glucose 2022-01-09 21:00:00 Test Item Value Reference Range Interpretation Comme nts POC glucose (test code = 214 mg/dL 65-99 H Ope rator Name: Joshua GomezKinjal 67715-5) ID: [id number] hartable: RN Notified Lab Interpretation (test code = Abnormal 79477-0) [facility] [id number] 21:00:00 Test Item Value Reference Range Interpretation Comments POC glucose (test code = 214 mg/dL 65-99 H Ope rator Name: 37330-1) Joshua haywood ID: [id number] able: RN Notified Lab Interpretation (test Abnormal code = 96718-2) [facility]2022-09-21 21:00:00 Test Item Value Reference Range Interpretation Comments POC glucose (test code = 214 mg/dL 65-99 H Ope rator Name: 20860-1) Joshua haywood ID: [id number] able: RN Notified Lab Interpretation (test Abnormal code = 27649-8) [facility]2022-09-21 21:00:00 Test Item Value Reference Range Interpretation Comments POC glucose (test code = 214 mg/dL 65-99 H Ope rator Name: 12589-2) Joshua haywood ID: [id number] able: RN Notified Lab Interpretation (test Abnormal code = 48013-2) [facility]2022-09-21 21:00:00 Test Item Value Reference Range Interpretation Comments POC glucose (test code = 214 mg/dL 65-99 H Ope rator Name: 60575-5) Joshua haywood ID: [id number] able: RN Notified Lab Interpretation (test Abnormal code = 53405-7) [facility] [id number] 13:44:01 Test Item Value Reference Range Interpretation Comments POC sodium (test code = 135 mmol/L 081-742 2504-0) POC potassium (test 4.5 mmol/L 3.5-5.0 code = 6298-4) POC glucose (test code 280 mg/dL 65-99 H = 2339-0) POC creatinine (test 6.0 mg/dl 0.7-1.2 H Operato r Name: code = 10795-0) Israel Mireleskassy ID : [id number] POC hemoglobin (test 11.9 g/dL 14.0-18.0 L code = 718-7) POC hematocrit (test 35 % 41-51 L code = 4544-3) Lab Interpretation Abnormal (test code = 26616-7) [facility]2022-09-21 13:44:01 Test Item Value Reference Range Interpretation Comments POC sodium (test code = 135 mmol/L 428-067 7723-0) POC potassium (test 4.5 mmol/L 3.5-5.0 code = 6298-4) POC glucose (test code 280 mg/dL 65-99 H = 2339-0) POC creatinine (test 6.0 mg/dl 0.7-1.2 H Operato r Name: code = 91267-9) Israel Mireleskassy ID : [id number] POC hemoglobin (test 11.9 g/dL 14.0-18.0 L code = 718-7) POC hematocrit (test 35 % 41-51 L code = 4544-3) Lab Interpretation Abnormal (test code = 50767-5) [facility]2022-09-21 13:44:01 Test Item Value Reference Range Interpretation Comments POC sodium (test code = 135 mmol/L 964-795 2548-0) POC potassium (test 4.5 mmol/L 3.5-5.0 code = 6298-4) POC glucose (test code 280 mg/dL 65-99 H = 2339-0) POC creatinine (test 6.0 mg/dl 0.7-1.2 H Operato r Name: code = 43016-9) Israel Mireleskassy ID : [id number] POC hemoglobin (test 11.9 g/dL 14.0-18.0 L code = 718-7) POC hematocrit (test 35 % 41-51 L code = 4544-3) Lab Interpretation Abnormal (test code = 88794-6) [facility] [id number] 13:44:01 Test Item Value Reference Range Interpretation Comments POC sodium (test code = 135 mmol/L 511-366 5150-0) POC potassium (test 4.5 mmol/L 3.5-5 code = 6298-4) POC glucose (test code 280 mg/dL 65-99 H = 2339-0) POC creatinine (test 6.0 mg/dl 0.7-1.2 H Operato r Name: code = 91422-9) Israel CresposcottReji ID : [id number] POC hemoglobin (test 11.9 g/dL 14-18 L code = 718-7) POC hematocrit (test 35 % 41-51 L code = 4544-3) Lab Interpretation Abnormal (test code = 85272-7) [facility] [id number] 13:44:01 Test Item Value Reference Range Interpretation Comments POC sodium (test code = 135 mmol/L 644-041 1737-0) POC potassium (test 4.5 mmol/L 3.5-5.0 code = 6298-4) POC glucose (test code 280 mg/dL 65-99 H = 2339-0) POC creatinine (test 6.0 mg/dl 0.7-1.2 H Operato r Name: code = 48721-8) Israel CresposcottReji ID : [id number] POC hemoglobin (test 11.9 g/dL 14.0-18.0 L code = 718-7) POC hematocrit (test 35 % 41-51 L code = 4544-3) Lab Interpretation Abnormal (test code = 03588-4) [id number] 13:44:00 Test Item Value Reference Range Interpretation Comments Estimated GFR (test mL/min/1.73 m2 A Caterg ory Units code = 12435-2) Interpretati onG1 >=90 Normal or highG 2 60-89 Mildly decrease dG3a 45-59 Mildly to moderately decr tvijeR4l 30-44 Moderatel y to severely decrea sedG4 15-29 Severely decreasedG5 <15 Kidney failureThe eGFR was calculated mary anne g the Chronic Kidney Disease Epidemiology Collaboration ( CKD-EPI) equation. Interpretation is based on recommendati ons of the National Ki dney Foundation-Kidn ey Disease Outcome s Quality Initiat marshall ([facility]-KDOQI) pub lished in 2013. Lab Interpretation Abnormal (test code = 60315-9) [id number] 13:44:00 Test Item Value Reference Range Interpretation Comments Estimated GFR (test mL/min/1.73 m2 A Caterg ory Units code = 53753-2) Interpretati onG1 >=90 Normal or highG 2 60-89 Mildly decrease dG3a 45-59 Mildly to moderately decr kptfkX5g 30-44 Moderatel y to severely decrea sedG4 15-29 Severely decreasedG5 <15 Kidney failureThe eGFR was calculated usin g the Chronic Kidney Disease Epidemiology Collaboration ( CKD-EPI) equation. Interpretation is based on recommendati ons of the [facility] Disease Outcome s Quality Initiat marshall ([facility]) pub lished in 2013. Lab Interpretation Abnormal (test code = 68696-9) [facility] [id number] 13:44:00 Test Item Value Reference Range Interpretation Comments Estimated GFR (test mL/min/1.73 m2 A Caterg ory Units code = 30710-0) Interpretati onG1 >=90 Normal or highG 2 60-89 Mildly decrease dG3a 45-59 Mildly to moderately decr ieizaU6d 30-44 Moderatel y to severely decrea sedG4 15-29 Severely decreasedG5 <15 Kidney failureThe eGFR was calculated usin g the Chronic Kidney Disease Epidemiology Collaboration ( CKD-EPI) equation. Interpretation is based on recommendati ons of the [facility] Disease Outcome s Quality Initiat marshall ([facility]) pub lished in 2013. Lab Interpretation Abnormal (test code = 13984-9) [facility] [id number] 13:44:00 Test Item Value Reference Range Interpretation Comments Estimated GFR (test mL/min/1.73 m2 A Caterg ory Units code = 42707-4) Interpretati onG1 >=90 Normal or highG 2 60-89 Mildly decrease dG3a 45-59 Mildly to moderately decr ugloaN8e 30-44 Moderatel y to severely decrea sedG4 15-29 Severely decreasedG5 <15 Kidney failureThe eGFR was calculated usin g the Chronic Kidney Disease Epidemiology Collaboration ( CKD-EPI) equation. Interpretation is based on recommendati ons of the [facility] Disease Outcome s Quality Initiat marshall ([facility]-KDOQI) pub lished in 2013. Lab Interpretation Abnormal (test code = 78306-8) [facility] [id number] 13:44:00 Test Item Value Reference Range Interpretation Comments Estimated GFR (test 10 mL/min/1.73 m2 Monisha amaya Units code = 16185-5) Interpretati onG1 >=90 Normal or highG 2 60-89 Mildly decrease dG3a 45-59 Mildly to moderately decr nuaszK7b 30-44 Moderatel y to severely decrea sedG4 15-29 Severely decreasedG5 <15 Kidney failureThe eGFR was calculated usin g the Chronic Kidney Disease Epidemiology Collaboration ( CKD-EPI) equation. Interpretation is based on recommendati ons of the [facility] Disease Outcome s Quality Initiat marshall (NKF-KDOQI) pub lished in 2013. Lab Interpretation Abnormal (test code = 30397-0) [facility] [Presence] in Respiratory specimen by YESENIA with probe [id number] 17:48:52 Test Item Value Reference Range Interpretation Comments SARS-CoV-2 (COVID-19) RNA Not detected [Presence] in Respiratory specimen by YESENIA with probe detection (test code = 44566-1) Whether patient is employed in a Unknown healthcare setting (test code = 21795-9) Whether the patient has symptoms Unknown related to condition of interest (test code = 27516-6) Whether the patient was Unknown hospitalized for condition of interest (test code = 51737-0) Whether the patient was admitted Unknown to intensive care unit (ICU) for condition of interest (test code = 96244-6) Whether patient resides in a Unknown congregate care setting (test code = 95397-7) status (test code = Unknown 95448-4) Date and time of symptom onset Unknown (test code = 92584-9) [facility] Pre/Post [id number] 17:20:24 Test Item Value Reference Range Interpretation Comments Ventricular rate (test code = 253) Atrial rate (test code = 255) TN interval (test code = 266) QRSD interval (test code = 260) QT interval (test code = 264) QTC interval (test code = 265) P axis 1 (test code = 267) QRS axis 1 (test code = 268) T wave axis (test code = 270) EKG impression (test Sinus rhythm with code = 273) occasional premature ventricular complexes-Left axis deviation-Abnormal ECG-No previous ECGs available- [facility] Pre/Post [id number] 17:20:24 Test Item Value Reference Range Interpretation Comments Ventricular rate (test code = 253) Atrial rate (test code = 255) TN interval (test code = 266) QRSD interval (test code = 260) QT interval (test code = 264) QTC interval (test code = 265) P axis 1 (test code = 267) QRS axis 1 (test code = 268) T wave axis (test code = 270) EKG impression (test Sinus rhythm with code = 273) occasional premature ventricular complexes-Left axis deviation-Abnormal ECG-No previous ECGs available- [facility] Pre/Post [id number] 17:20:24 Test Item Value Reference Range Interpretation Comments Ventricular rate (test code = 253) Atrial rate (test code = 255) TN interval (test code = 266) QRSD interval (test code = 260) QT interval (test code = 264) QTC interval (test code = 265) P axis 1 (test code = 267) QRS axis 1 (test code = 268) T wave axis (test code = 270) EKG impression (test Sinus rhythm with code = 273) occasional premature ventricular complexes-Left axis deviation-Abnormal ECG-No previous ECGs available- [facility] Pre/Post [id number] 17:20:24 Test Item Value Reference Range Interpretation Comments Ventricular rate (test code = 253) Atrial rate (test code = 255) TN interval (test code = 266) QRSD interval (test code = 260) QT interval (test code = 264) QTC interval (test code = 265) P axis 1 (test code = 267) QRS axis 1 (test code = 268) T wave axis (test code = 270) EKG impression (test Sinus rhythm with code = 273) occasional premature ventricular complexes-Left axis deviation-Abnormal ECG-No previous ECGs available- [facility] Pre/Post [id number] 17:20:24 Test Item Value Reference Range Interpretation Comments Ventricular rate 91 (test code = 253) Atrial rate (test 91 code = 255) TN interval (test 114 code = 266) QRSD interval (test 86 code = 260) QT interval (test 382 code = 264) QTC interval (test 469 code = 265) P axis 1 (test code = 30 267) QRS axis 1 (test code -31 = 268) T wave axis (test 86 code = 270) EKG impression (test Sinus rhythm with code = 273) occasional premature ventricular complexes-Left axis deviation-Abnormal ECG-No previous ECGs available- [facility]2022-09-19 15:46:00 Test Item Value Reference Range Interpretation Comments Urine culture (test SEE COMMENT Bacteriu lashell screen code = 7817384) negative. [facility] [id number] 15:46:00 Test Item Value Reference Range Interpretation Comments Urine culture (test SEE COMMENT Bacteriu lashell screen code = 7361240) negative. [facility] [id number] 15:46:00 Test Item Value Reference Range Interpretation Comments Urine culture (test SEE COMMENT Bacteriu lashell screen code = 3726535) negative. [facility] [id number] 15:46:00 Test Item Value Reference Range Interpretation Comments Urine culture (test SEE COMMENT Bacteriu lashell screen code = 7306052) negative. [facility] [id number] 15:46:00 Test Item Value Reference Range Interpretation Comments Urine culture (test SEE COMMENT Bacteriu lashell screen code = 5817201) negative. [facility] surface [id number] 22:01:34 Test Item Value Reference Range Interpretation Comments Hep B S Ab (test code <8.0 See_Comment [Auto mated = 87098-4) message] The system which generated this result transmit brad reference range : <8.0 mIU/mL. Th e reference range was not used to interpret this result as normal/abnormal . TALIB (test code = TALIB) Business Process Coordinator ID - DB Lab Interpretation Normal (test code = 73730-1) [facility] B surface [id number] 22:01:34 Test Item Value Reference Range Interpretation Comments Hep B S Ab (test code <8.0 See_Comment [Auto mated = 03849-5) message] The system which generated this result transmit brad reference range : <8.0 mIU/mL. Th e reference range was not used to interpret this result as normal/abnormal . TALIB (test code = TALIB) Business Process Coordinator ID - DB Lab Interpretation Normal (test code = 29065-3) [facility] surface [id number] 22:01:34 Test Item Value Reference Range Interpretation Comments Hep B S Ab (test code <8.0 See_Comment [Auto mated = 55299-2) message] The system which generated this result transmit brad reference range : <8.0 mIU/mL. Th e reference range was not used to interpret this result as normal/abnormal . TALIB (test code = TALIB) Business Process Coordinator ID - DB Lab Interpretation Normal (test code = 18895-6) [facility] B surface [id number] 22:01:34 Test Item Value Reference Range Interpretation Comments Hep B S Ab (test code <8.0 See_Comment [Auto mated = 94665-7) message] The system which generated this result transmit brad reference range : <8.0 mIU/mL. Th e reference range was not used to interpret this result as normal/abnormal . TALIB (test code = TALIB) Business Process Coordinator ID - DB Lab Interpretation Normal (test code = 89693-7) [facility] B surface [id number] 22:01:34 Test Item Value Reference Range Interpretation Comments Hep B S Ab (test code <8.0 See_Comment [Auto mated = 37283-1) message] The system which generated this result transmit brad reference range : <8.0 mIU/mL. Th e reference range was not used to interpret this result as normal/abnormal . TALIB (test code = TALIB) Business Process Coordinator ID - DB Lab Interpretation Normal (test code = 08208-4) [facility] [id number] 22:01:34 Test Item Value Reference Range Interpretation Comments Hep B S Ab (test code <8.0 See_Comment [Auto mated = 55445-4) message] The system which generated this result transmit brad reference range : <8.0 mIU/mL. Th e reference range was not used to interpret this result as normal/abnormal . TALIB (test code = TALIB) Business Process Coordinator ID - DB Lab Interpretation Normal (test code = 71960-4) [facility] [id number] 22:01:34 Test Item Value Reference Range Interpretation Comments HEPATITIS B SURFACE ANTIBODY < mIU/mL <8.0 (BEAKER) (test code = 647) Business Process Coordinator ID - DBHepatitis B core antibody, [id number] 21:52:25 Test Item Value Reference Range Interpretation Comments Hep B C IgM (test code = Nonreactive Nonreactive 04807-4) TALIB (test code = TALIB) Business Process Coordinator ID - DB Lab Interpretation (test Normal code = 48274-2) [facility], [id number] 21:52:25 Test Item Value Reference Range Interpretation Comments Hep B C IgM (test code = Nonreactive Nonreactive 31623-2) TALIB (test code = TALIB) Business Process Coordinator ID - DB Lab Interpretation (test Normal code = 33691-4) [facility], [id number] 21:52:25 Test Item Value Reference Range Interpretation Comments Hep B C IgM (test code = Nonreactive Nonreactive 50092-6) TALIB (test code = TALIB) Business Process Coordinator ID - DB Lab Interpretation (test Normal code = 94554-4) [facility], [id number] 21:52:25 Test Item Value Reference Range Interpretation Comments Hep B C IgM (test code = Nonreactive Nonreactive 51075-1) TALIB (test code = TALIB) Business Process Coordinator ID - DB Lab Interpretation (test Normal code = 36212-3) [facility] antibody, [id number] 21:52:25 Test Item Value Reference Range Interpretation Comments Hep B C IgM (test code = Nonreactive Nonreactive 78974-1) TALIB (test code = TALIB) Business Process Coordinator ID - DB Lab Interpretation (test Normal code = 41715-2) [facility] antibody, [id number] 21:52:25 Test Item Value Reference Range Interpretation Comments Hep B C IgM (test code = Nonreactive Nonreactive 50647-9) TALIB (test code = TALIB) Business Process Coordinator ID - DB Lab Interpretation (test Normal code = 21903-2) [facility]HE[facility]ALT[facility] CORE ANTIBODY, [id number] 21:52:25 Test Item Value Reference Range Interpretation Comments HEPATITIS B CORE IGM ANTIBODY Nonreactive Nonreactive (BEAKER) (test code = 645) Business Process Coordinator ID - DBHepatitis B surface [id number] 21:52:19 Test Item Value Reference Range Interpretation Comments Hepatitis B surface Nonreactive Nonreactive antigen (test code = 5195-3) TALIB (test code = TALIB) Specimen is considered negative for HBsAg. Lab Interpretation (test Normal code = 48953-0) [facility] B surface [id number] 21:52:19 Test Item Value Reference Range Interpretation Comments Hepatitis B surface Nonreactive Nonreactive antigen (test code = 5195-3) TALIB (test code = TALIB) Specimen is considered negative for HBsAg. Lab Interpretation (test Normal code = 09931-7) [facility] B surface [id number] 21:52:19 Test Item Value Reference Range Interpretation Comments Hepatitis B surface Nonreactive Nonreactive antigen (test code = 5195-3) TALIB (test code = TALIB) Specimen is considered negative for HBsAg. Lab Interpretation (test Normal code = 57937-4) [facility] B surface [id number] 21:52:19 Test Item Value Reference Range Interpretation Comments Hepatitis B surface Nonreactive Nonreactive antigen (test code = 5195-3) TALIB (test code = TALIB) Specimen is considered negative for HBsAg. Lab Interpretation (test Normal code = 13583-9) [facility] [place] B surface [id number] 21:52:19 Test Item Value Reference Range Interpretation Comments Hepatitis B surface Nonreactive Nonreactive antigen (test code = 5195-3) TALIB (test code = TALIB) Specimen is considered negative for HBsAg. Lab Interpretation (test Normal code = 48001-7) [facility] B surface [id number] 21:52:19 Test Item Value Reference Range Interpretation Comments Hepatitis B surface Nonreactive Nonreactive antigen (test code = 5195-3) TALIB (test code = TALIB) Specimen is considered negative for HBsAg. Lab Interpretation (test Normal code = 17142-3) [facility] B SURFACE [id number] 21:52:19 Test Item Value Reference Range Interpretation Comments HEPATITIS B SURFACE ANTIGEN (2) Nonreactive Nonreactive (BEAKER) (test code = 2585) Specimen is considered negative for HBsAg.
--- NOTE | 2022-07-03 12:25 | RAD REPORT ---
EXAM DESCRIPTION: RAD - Foot Right 3 View - 07/03/2022 11:11 am CLINICAL HISTORY: PAIN COMPARISON: No comparisons TECHNIQUE: Right foot, 3 views. FINDINGS: No fracture, dislocation or periosteal reaction. Large calcaneal spur. Dystrophic calcific ation along the proximal Achilles tendon. No air or foreign body in the soft tissues. IMPRESSION: Negative right foot examination. Chronic findings including large calcaneal spur.
--- NOTE | 2022-07-03 13:24 | EDPHYS ---
Physician Documentation [facility] Name: Chava Pate Age: 47 yrs Sex: Male : 1975 Arrival Date: 07/03/2022 Time: 10:10 Bed 11 Private MD: ED Physician Jeremie Hurtado Historical: - Allergies: 07/03 10:52 No Known Allergies; aa5 - PMHx: 10:52 Diabetes - NIDDM; Hypertensive disorder; kidney disease; PERIPHERAL NEUROPATHY; aa5 Dialysis; - PSHx: 10:52 fistula L arm; aa5 - Immunization history:: Adult Immunizations unknown. - Social history:: Smoking status: Patient denies any tobacco usage or history of. Vital Signs: 10:53 BP 156 / 75; Pulse 90; Resp 18 S; Temp 97.8(TE); Pulse Ox 98% on R/A; Weight 97.52 kg aa5 (R); Height 5 ft. 8 in. (R); 10:53 Body Mass Index 32.69 (97.52 kg, 172.72 cm) aa5 MDM: 13:23 Patient medically screened. kdr 07/03 10:51 Order name: Foot Right 3 View XRAY; Complete Time: 12:56 kdr Administered Medications: No medications were administered Disposition Summary: 07/03/22 13:23 Discharge Ordered Location: Home kdr Problem: new kdr Symptoms: are unchanged kdr Condition: Fair kdr Diagnosis - Right heel pain/contusion kdr Followup: kdr - With: Private Physician - When: 2 - 3 days - Reason: If symptoms return, Further diagnostic work-up, Recheck today's complaints, Continuance of care, Re-evaluation by your physician Discharge Instructions: - Discharge Summary Sheet kdr - Foot Pain kdr Forms: - Medication Reconciliation Form kdr - Thank You Letter kdr - Prescription Opioid Use kdr Prescriptions: - Tramadol 50 mg Oral Tablet - take 1 tablet by ORAL route every 8 hours as needed; 6 tablet; Refills: 0, kdr Product Selection Permitted Signatures: Dispatcher [employer] EDJeremie Bhatia MD MD kdr Tanya Bianchi, RN RN aa5
--- NOTE | 2022-07-03 13:24 | ER ---
Nurse's Notes [facility] Name: Chava Pate Age: 47 yrs Sex: Male : 1975 Arrival Date: 07/03/2022 Time: 10:10 Bed 11 Private MD: Diagnosis: Right heel pain/contusion Presentation: 07/03 10:53 Chief complaint: Patient states: right heel pain that began 1 week ago, pt denies known aa5 injury. Coronavirus screen: At this time, the client does not indicate any symptoms associated with coronavirus-19. Ebola Screen: Patient denies travel to an Ebola-affected area in the 21 days before illness onset. Initial Sepsis Screen: Does the patient meet any 2 criteria? No. Patient's initial sepsis screen is negative. Does the patient have a suspected source of infection? No. Patient's initial sepsis screen is negative. Risk Assessment: Do you want to hurt yourself or someone else? Patient reports no desire to harm self or others. Onset of symptoms was June 2022. 10:53 Acuity: EDINSON 4 aa5 10:53 Method Of Arrival: Wheelchair aa5 Historical: - Allergies: 10:52 No Known Allergies; aa5 - PMHx: 10:52 Diabetes - NIDDM; Hypertensive disorder; kidney disease; PERIPHERAL NEUROPATHY; aa5 Dialysis; - PSHx: 10:52 fistula L arm; aa5 - Immunization history:: Adult Immunizations unknown. - Social history:: Smoking status: Patient denies any tobacco usage or history of. Vital Signs: 10:53 BP 156 / 75; Pulse 90; Resp 18 S; Temp 97.8(TE); Pulse Ox 98% on R/A; Weight 97.52 kg aa5 (R); Height 5 ft. 8 in. (R); 10:53 Body Mass Index 32.69 (97.52 kg, 172.72 cm) aa5 ED Course: 10:10 Patient arrived in ED. rg4 10:15 Jeremie Hurtado MD is Attending Physician. kdr 10:52 Arm band placed on. aa5 10:54 Triage completed. aa5 11:13 Foot Right 3 View XRAY In Process Unspecified. EDMS Administered Medications: No medications were administered Outcome: 13:23 Discharge ordered by . kdr Signatures: Dispatcher [employer] EDMS Сергей Hurtadoin, MD MD kdr Tanya Bianchi RN RN aa5 Lucia Briceño 4
[2022-07-03 17:25] VITALS: BP 156/75; TEMP 97.8; O2SAT 98
== END 2022-07-03 13:57 | disposition home or self-care (01) ==
LOC: ER 10:08
DX: S90.31XA Contusion of right foot, initial encounter (principal)

== ENCOUNTER 2022-09-29 17:41 | Observation (INO) | payer BC, OTHER ==
--- OUTSIDE RECORDS SUMMARY | 2022-09-29 17:46 | XMS REPORT | Continuity of Care Document ---
:1975 Author Organization [facility] t Address [address] [facility] [address] [place] [address] Care Team Providers Name Role Phone RITA DEYURSTON Primary Care Physician Unavailable Gorge TOMLINC, Rochelle Gomez Attending Clinician [phone] Kamilla Tello MA Attending Clinician Unavailable Malorie Lopez MA Attending Clinician Unavailable Gisele Lynn MA Attending Clinician Unavailable Asked, No Pcp Attending Clinician Unavailable Tabatha Katz MA Attending Clinician Unavailable Antoinette MEDRANO, April Attending Clinician Unavailable Dyllan Albert MD Attending Clinician Carolyn Solorzano MD Attending Clinician [phone] Whitney Dow Attending Clinician Desi Cabrera [...] Added automatic ally from request for surgery [id number] No known No known Disease Unive rs active active ity of problems problems [facility] Allergies, Adverse Reactions, Alerts Allergy Allergy Status Severity Reaction(s) Onset Inactive Treating Comm ents Source Name Type Date Date Clinician NO KNOWN Drug Active Marlon ALLERGIE Class ity of S [facility] Family History Family Member Diagnosis Comments Start Date Stop Date Source Natural father No Known Problems Met [facility] Natural mother Stroke [facility] Social History Social Habit Start Date Stop Date Quantity Comments Source Exposure to Not sure University SARS-CoV-2 (event) [facility] Gender identity [facility] History of Social 2022-06-30 2022-06-[address] function 00:00:00 00:00:00 Hospital Alcohol intake 2022-02-05 2022-02-05 [facility] 00:[facility] 00:00:00 non-drinker Hospital (finding) Tobacco use and 2022-01-07 2022-01-07 Smokeless [facility] exposure 00:00:00 00:00:00 tobacco non-user [facility] Sex Ass[birth year] At [birth year] [facility] 00:[facility]00 Hospital Smoking Status Start Date Stop Date Source Unknown if ever smoked [facility] Never smoked tobacco [facility] Medications Ordered Filled Start Stop Current Ordering Indication Dosage Frequency Signature Comments Components Source Medication Medication Date Date Medication? Clinician (SIG) Name Name calcitrioL Yes .5ug Take 2 Meth[facility] di (ROCALTROL) 4-[address] 0.25 MCG 13:11: (0.5 mcg Hospi ta capsule 52 total) by l mouth. docusate Yes 250mg Take 1 Method i sodium 4-[address] (COLACE) 13:11: (250 mg Hospit a 250 MG 52 total) by l capsule mouth. gabapentin Yes 100mg Q.5D Take 1 Meth [facility] (NEURONTIN) 4-[address] 100 mg 13:11: (100 mg Hospita capsule 52 total) by l mouth 2 (two) times a day. ergocalcife Yes Take by Met hodi rol, 4-[address] vitamin D2, 13:11: Hospit a (VITAMIN D2 52 l ORAL) vitamin B Yes QD Take by [facility] di complex 4-[address] tablet 13:11: daily. Hospita extended 52 l release carvediloL 2023-0 Yes 25mg Q.5D Take 1 Metho di (COREG) 25 4-04 tablet (25 st MG tablet 13:11: mg total) [facility] 52 by mouth 2 l (two) times a day with meals. tadalafil 2023-0 Yes 40mg Take 2 Method i (ADCIRCA, 4-[address] CIALIS) 20 13:11: (40 mg Hospi ta mg tablet 52 total) by l mouth as needed. omeprazole 2023-0 Yes 20mg QD Take 1 Metho di (PriLOSEC) 4-[address] 20 MG 13:11: (20 mg Hospita capsule 52 total) by l mouth daily. calcitrioL 2023-0 Yes .5ug Take 2 Meth[facility] di (ROCALTROL) 4-[address] 0.25 MCG 13:11: (0.5 mcg Hospi ta capsule 52 total) by l mouth. docusate 2022-0 Yes 250mg Take 1 Method i sodium 4-[address] (COLACE) 13:11: (250 mg Hospit a 250 MG 52 total) by l capsule mouth. gabapentin 2022-0 Yes 100mg Q.5D Take 1 [facility] (NEURONTIN) 4-[address] 100 mg 13:11: (100 mg Hospita capsule 52 total) by l mouth 2 (two) times a day. ergocalcife 2022-0 Yes Take by Met hodi rol, 4-[address] vitamin D2, 13:11: Hospit a (VITAMIN D2 52 l ORAL) vitamin B 2022-0 Yes QD Take by [facility] di complex 4-[address] tablet 13:11: daily. Hospita extended 52 l release carvediloL 2022-0 Yes 25mg Q.5D Take 1 Metho di (COREG) 25 4-04 tablet (25 st MG tablet 13:11: mg total) [facility] 52 by mouth 2 l (two) times a day with meals. tadalafil 2023-0 Yes 40mg Take 2 Method i (ADCIRCA, 4-[address] CIALIS) 20 13:11: (40 mg Hospi ta mg tablet 52 total) by l mouth as needed. omeprazole 2023-0 Yes 20mg QD Take 1 Metho di (PriLOSEC) 4-[address] 20 MG 13:11: (20 mg Hospita capsule 52 total) by l mouth daily. calcitrioL 0 Yes .5ug Take 2 Metho di (ROCALTROL) -[address] 0.25 MCG 09:51: (0.5 mcg Hospi ta capsule 57 total) by l mouth. docusate 0 Yes 250mg Take 1 Method i sodium -[address] (COLACE) 09:51: (250 mg Hospit a 250 MG 57 total) by l capsule mouth. gabapentin 0 Yes 100mg Q.5D Take 1 Meth [facility] (NEURONTIN) [address] 100 mg 09:51: (100 mg Hospita capsule 57 total) by l mouth 2 (two) times a day. ergocalcife Yes Take by Met hodi rol, 1-[address] vitamin D2, 09:51: Hospit a (VITAMIN D2 57 l ORAL) vitamin B 0 Yes QD Take by [facility] di complex 04-[address] tablet 09:51: daily. Hospita extended 57 l release carvediloL Yes 25mg Q.5D Take 1 Metho di (COREG) 25 -03 tablet (25 st MG tablet 09:51: mg total) [facility] 57 by mouth 2 l (two) times a day with meals. tadalafil Yes 40mg Take 2 Method i (ADCIRCA, 1-[address] CIALIS) 20 09:51: (40 mg Hospi ta mg tablet 57 total) by l mouth as needed. omeprazole Yes 20mg QD Take 1 Metho di (PriLOSEC) 04-[address] 20 MG 09:51: (20 mg Hospita capsule 57 total) by l mouth daily. Mounjaro 5 2021-04 Yes Methodi mg/0.5 mL 05-11 st pen 00:00: Hospita injector 00 l Mounjaro 5 2021-04 Yes Methodi mg/0.5 mL 05-11 st pen 00:00: Hospita injector 00 l Mounjaro 5 2021-04 Yes Methodi mg/0.5 mL 05-11 st pen 00:00: Hospita injector 00 l lidocaine-p 2021-04- No Apply Meth [facility]oke rilocaine 05-[address] (EMLA) 00:00: 05:59 as needed Hospi ta 2.5-2.5 % 00 :00 for mild l cream pain. Apply to area 30-45 minutes prior to dialysis treatment. lidocaine-p 2021-04- No Apply Meth [facility] rilocaine 05-[address] (EMLA) 00:00: 05:59 as needed Hospi ta 2.5-2.5 % 00 :00 for mild l cream pain. Apply to area 30-45 minutes prior to dialysis treatment. lidocaine-p 2021-04- No Apply Meth [facility] rilocaine 05-[address] (EMLA) 00:00: 05:59 as needed Hospi ta 2.5-2.5 % 00 :00 for mild l cream pain. Apply to area 30-45 minutes prior to dialysis treatment. losartan 2021-04 Yes 50mg QD Take 1 Methodi (COZAAR) 50 0-31 tablet (50 st MG tablet 00:00: mg total) [facility] 00 by mouth l daily. losartan 2021-04 Yes 50mg QD Take 1 Methodi (COZAAR) 50 0-31 tablet (50 st MG tablet 00:00: mg total) [facility] 00 by mouth l daily. losartan 2021-04 Yes 50mg QD Take 1 [...] daily. Hospita extended 59 [place] [id number] 50mg Q6H Take 1 Metho di (Ultram) 50 01-09 tablet (50 s t mg tablet 00:00: 04:59 mg total) Ho spita 00 :00 by mouth l every 6 (six) hours as needed for moderate pain for up to 2 days .acute pain. traMADoL 2021- No [id number] 50mg Q6H Take 1 Metho di (Ultram) 50 01-09 tablet (50 s t mg tablet 00:00: 04:59 mg total) Ho spita 00 :00 by mouth l every 6 (six) hours as needed for moderate pain for up to 2 days .acute pain. traMADoL 2021- No [id number] 50mg Q6H Take 1 Metho di (Ultram) 50 01-0924 tablet (50 s t mg tablet 00:00: 04:59 mg total) Ho spita 00 :00 by mouth l every 6 (six) hours as needed for moderate pain for up to 2 days .acute pain. traMADoL 2021- No [id number] 50mg Q6H Take 1 Metho di (Ultram) 50 01-0924 tablet (50 s t mg tablet 00:00: 04:59 mg total) Ho spita 00 :00 by mouth l every 6 (six) hours as needed for moderate pain for up to 2 days .acute pain. traMADoL 2021- No [id number] 50mg Q6H Take 1 Metho di (Ultram) 50 01-09 tablet (50 s t mg tablet 00:00: 04:59 mg total) Ho spita 00 :00 by mouth l every 6 (six) hours as needed for moderate pain for up to 2 days .acute pain. traMADoL 2021- No [id number] 50mg Q6H Take 1 Metho di (Ultram) 50 01-09 tablet (50 s t mg tablet 00:00: 04:59 mg total) Ho spita 00 :00 by mouth l every 6 (six) hours as needed for moderate pain for up to 2 days .acute pain. traMAD[place] 2021- No [id number] 50mg Q6H Take 1 Metho di (Ultram) [...] 49 :00 total) by l mouth. glipiZIDE 2021-2021- No 2.5mg Take 1 Meth [facility] (GLUCOTROL) 01-[address] 2.5 MG 24 09:22: 00:00 (2.5 mg Hosp antione hr tablet 49 :00 total) by l mouth. glipiZIDE 2021- No 2.5mg Take 1 Meth [facility] (GLUCOTROL) 01-[address] 2.5 MG 24 09:22: 00:00 (2.5 mg Hosp antione hr tablet 49 :00 total) by l mouth. glipiZIDE 2021-2021- No 2.5mg Take 1 [facility] (GLUCOTROL) [...] 2021-0 2021- No 25mg Take 1 Meth brooek (COREG) 25 01-07 tablet (25 st MG [...] 25U QD Inject 25 [facility] GLARGINE 12-20-[address] (TOUJEO) 00:00: 04:59 under the [facility] 300 unit/mL 00 :00 skin l (1.5 mL) daily. insulin pen subcutaneou s pen insulin 2022- No 25U QD Inject 25 [facility] GLARGINE 12-20-[address] (TOUJEO) 00:00: 04:59 under the [...] 25U QD Inject 25 Meth [facility] GLARGINE 12-20-[address] (TOUJEO) 00:00: 04:59 under the [facility] 300 unit/mL 00 :00 skin l (1.5 mL) daily. insulin pen subcutaneou s pen insulin 2022- No 25U QD Inject 25 Meth [facility] GLARGINE 12-20-[address] (TOUJEO) 00:00: 04:59 under the [facility] 300 unit/mL 00 :00 skin l (1.5 mL) daily. insulin pen subcutaneou s pen insulin 2022- No 25U QD Inject 25 Meth [facility] GLARGINE 12-20 09-[address] (TOUJEO) 00:00: 04:59 under the [facility] 300 unit/mL 00 :00 skin l (1.5 mL) daily. insulin pen subcutaneou s pen insulin 2022- No 25U QD Inject 25 Meth [facility] GLARGINE 901 09-[address] (TOUJEO) 00:00: 04:59 under the [facility] 300 unit/mL 00 :00 skin l (1.5 mL) daily. insulin pen subcutaneou s pen furosemide 2-0 Yes 40mg Q.5D Take 1 Metho di [...] 2 l (two) times a day. furosemide 2-0 Yes 40mg Q.5D Take 1 Metho di (LASIX) 40 8-29 tablet (40 st mg tablet 00:00: mg total) [facility] 00 by mouth 2 l (two) times a day. albuterol 2021-0 Yes [id number] 2{puff} Inhale 2 Univers 90 1-22 Puffs ity of mcg/actuati 00:00: every 4 Kj as on inhaler 00 (four) Medical hours as Branch needed for Wheezing or Shortness of Breath. proMETHazin 2021-0 Yes [id number] 25mg Take 1 Univers e 25 mg 1-22 tablet by ity of tablet 00:00: mouth [place] 00 every 6 Medical (six) Branch hours as needed for Nausea and Vomiting (N/V). albuterol Yes [id number] 2{puff} Inhale 2 Univers 90 1-22 Puffs ity of mcg/actuati 00:00: every 4 Kj as on inhaler 00 (four) Medical hours as Branch needed for Wheezing or Shortness of Breath. proMETHazin Yes [id number] 25mg Take 1 Univers e 25 mg 1-22 tablet by ity of tablet 00:00: mouth [place] 00 every 6 Medical (six) Branch hours as needed for Nausea and Vomiting (N/V). amoxicillin 2021- No [id number] 1{tbl} Take 1 Univers -clavulanat 05-12-30 tablet [...] days. Indication s: COUGH amoxicillin 2021- No [id number] 1{tbl} Take 1 Univers -clavulanat 05-12-30 tablet [...] 2021-05-12 134 mm[Hg] University of pressure 14:46:00 [facility] Diastolic blood 2021-05-12 66 mm[Hg] University o f pressure 14:46:00 [facility] Heart rate 2021-05-12 118 /min [facility] 14:46:00 [facility] Body temperature 2021-05-12 37.33 [facility] 14:46:00 [facility] Respiratory rate 2021-05-12 22 /min [facility] 14:46:00 [facility] Body weight 2021-05-12 102.059 kg [facility] 14:46:00 [facility] Oxygen saturation 2021-05-12 100 /min University in Arterial blood 14:46:00 [facility] by Pulse oximetry [place] Systolic blood 2022-07-23 149 mm[Hg] [facility] pressure 18:08:00 [facility] Diastolic blood 2022-07-23 87 mm[Hg] [facility] pressure 18:08:00 [facility] Heart rate 2022-07-23 84 /min [facility] 18:08:00 [facility] Body temperature 2022-07-23 36.78 Chey [facility] 18:08:00 [facility] Body height 2022-07-23 172.7 cm [facility] 18:08:00 [facility] Body weight 2022-07-23 98.521 kg [facility] 18:08:00 [facility] BMI 2022-07-23 33.03 kg/m2 [facility] 18:08:00 [facility] Oxygen saturation 2022-07-23 97 /min [facility] in Arterial blood 18:08:00 Hospital by Pulse oximetry Systolic blood 2022-04-23 155 mm[Hg] did not take [facility] pressure 15:38:00 blood pressure Hospital medication Diastolic blood 2022-04-23 88 mm[Hg] did not take [facility] pressure 15:38:00 blood pressure Hospital medication Heart rate 2022-04-23 92 /min [facility] 15:38:00 [facility] Body temperature 2022-04-23 36.67 Che[facility] 15:38:00 Hospital Body height 2022-04-23 172.7 cm [facility] 15:38:00 [facility] Body weight 2022-04-23 97.433 kg [facility] 15:38:00 [facility] BMI 2022-04-23 32.66 kg/m2 [facility] 15:38:00 Hospital Oxygen saturation 2022-04-23 98 /min [facility] in Arterial blood 15:38:00 Hospital by Pulse oximetry Systolic blood 2022-02-07 182 mm[Hg] [facility] pressure 20:01:00 Hospital Diastolic blood 2022-02-07 92 mm[Hg] [facility] pressure 20:01:00 Hospital Heart rate 2022-02-07 89 /min [facility] 20:01:00 Hospital Body temperature 2022-02-07 36.44 Chey [facility] 20:01:00 Hospital Body height 2022-02-07 172.7 cm [facility] 20:01:00 [facility] Body weight 2022-02-07 107.049 kg [facility] 20:01:00 Hospital BMI 2022-02-07 35.88 kg/m2 [facility] 20:01:00 Hospital Oxygen saturation 2022-02-07 98 /min [facility] in Arterial blood 20:01:00 Hospital by Pulse oximetry Systolic blood 2022-01-09 147 mm[Hg] [facility] pressure 21:30:00 Hospital Diastolic blood 2022-01-09 85 mm[Hg] [facility] pressure 21:30:00 Hospital Heart rate 2022-01-09 92 /min [facility] 21:30:00 Hospital Body temperature 2022-01-09 36.56 [facility] 21:30:00 Hospital Oxygen saturation 2022-01-09 99 /min [facility] in Arterial blood 21:30:00 Hospital by Pulse oximetry Respiratory rate 2022-01-09 18 /min [facility] 21:30:00 Hospital Body height 2022-01-09 172.7 cm [facility] 13:28:00 [facility] Body weight 2022-01-09 103.874 kg [facility] 13:28:00 [facility] BMI 2022-01-09 34.82 kg/m2 [facility] 13:28:00 Hospital Procedures Procedure Date / Time Performing Clinician Source Performed US CAROTID DUPLEX 2022-04-11 18:00:00 Rochelle Pennington [facility] [place] POC GLUCOSE 2022-01-09 20:58:00 Dyllan Albert [facility]ital POC GLUCOSE 2022-01-09 20:02:00 Dyllan Albert spital [place] AN ELECTIVE 2022-01-09 17:35:00 Carolyn Solorzano spital SUPRAGLOTTIC AIRWAY Donna CREATION, AV FISTULA 2022-01-09 17:26:00 Dyllan Albert [facility] ESTIMATED GFR 2022-01-09 13:43:00 Dyllan Albert spital POC PANEL 2022-01-09 13:43:00 Dyllan Albert spital ABO AND RH CONFIRMATION 2022-01-09 13:40:00 Shahana [facility] BY PROTOCOL XR CHEST 2 VW 2022-01-07 15:20:51 [facility] 2022-01-07 14:56:02 [facility] QUALITATIVE 2022-01-07 14:34:00 Dyllan Albert [facility] RT-PCR URINE CULTURE 2022-01-07 14:33:00 Dyllan Albert [facility] URINALYSIS SCREEN AND 2022-01-07 14:33:00 Shahana [facility] MICROSCOPY, WITH REFLEX TO CULTURE COMPREHENSIVE METABOLIC 2022-01-07 14:[facility] ESTIMATED GFR 2022-01-07 14:33:00 [facility] PARTIAL THROMBOPLASTIN 2022-01-07 14:05:00 [facility]OT[facility] WITH INR 2022-01-07 14:05:00 Shahana Dyllan [facility] CBC WITH PLATELET AND 2022-01-07 14:05:00 Shahana [facility] DIFFERENTIAL TYPE AND SCREEN 2022-01-07 14:05:00 Dyllan Albert [facility] HEMOGLOBIN A1C 2022-01-07 14:05:00 Catia Merino [facility] Ramon Coleman HEPATITIS B SURFACE 2021-09-06 05:47:00 [facility] ANTIGEN Center HEPATITIS B SURFACE 2021-09-06 05:47:00 [facility] ANTIBODY Center HEPATITIS B CORE 2021-09-06 05:47:00 [facility] ANTIBODY, IGM Center XR CHEST 2 VW 2021-05-12 16:27:08 Turner Garcia [facility] RAPID INFLUENZA A/B 2021-05-12 15:13:00 Turner Garcia [facility] NOTICE OF PRIVACY 2021-05-12 14:43:20 Doctor Unassigned, [facility] PRACTICES [facility] CONSENT/REFUSAL FOR 2021-05-12 14:43:06 Doctor Unassigned, [facility] DIAGNOSIS AND TREATMENT [facility] Plan of Care Planned Activity Planned Date Details Comments Source Future Scheduled 2022-12-[address] [facility] Test 00:00:00 (Season Ended) [code = Medic al Center INFLUENZA VACCINE (Season Ended)] Future Scheduled 2022-12-[address] [facility] Test 00:00:00 (Season Ended) [code = Medic al Center INFLUENZA VACCINE (Season Ended)] Future Scheduled 2022-09-28 [facility] 22:18:06 malignant neoplasm of colon (procedure) [code = 335487314] Future Scheduled 2022-09-28 [facility] Test 22:18:06 malignant neoplasm of colon (procedure) [code = 300790266] Future Scheduled 2022-09-28 [facility]ZA [facility]ACCINE [facility] Test 22:18:06 [code = INFLUENZA VACCINE] Future Scheduled 2022-09-28 [facility] Test 22:18:06 malignant neoplasm of colon (procedure) [code = 496729059] Future Scheduled 2022-09-28 [facility] Test 22:18:06 malignant neoplasm of colon (procedure) [code = 547701295] Future Scheduled 2022-09-28 [facility] Test 22:18:06 malignant neoplasm of colon (procedure) [code = 352902385] Future Scheduled 2022-09-28 Pneumococcal Vaccine: [facility] Test 22:18:06 Pediatrics (0 to 5 Years) and At-Risk Patients (6 to 64 Years) (1 - PCV) [code = Pneumococcal Vaccine: Pediatrics (0 to 5 Years) and At-Risk Patients (6 to 64 Years) (1 - PCV)] Future Scheduled 2022-09-28 Hepatitis C screening [facility] Hospital Test 22:18:06 (procedure) [code = 037565698] Future Scheduled 2022-09-28 COVID-19 VACCINE (3 - [facility] Test 22:18:06 Moderna series) [code = COVID-19 VACCINE (3 - Moderna series)] Future Scheduled 2022-07-23 Pneumococcal Vaccine: [facility] Test 13:39:42 Pediatrics (0 to 5 Years) and At-Risk Patients (6 to 64 Years) (1 - PCV) [code = Pneumococcal Vaccine: Pediatrics (0 to 5 Years) and At-Risk Patients (6 to 64 Years) (1 - PCV)] Future Scheduled 2022-07-23 Hepatitis C screening [facility] Test 13:39:42 (procedure) [code = 309659114] Future Scheduled 2022-07-23 COVID-19 VACCINE (3 - [facility] Test 13:39:42 Booster for Moderna series) [code = COVID-19 VACCINE (3 - Booster for Moderna series)] Future Scheduled 2022-07-23 [facility] 13:39[facility]42 [code = COLONOSCOPY SCREENING] Future Scheduled 2022-07-23 INFLUENZA VACCINE [facility] Test 13:39:42 [code = INFLUENZA VACCINE] Future Scheduled 2022-06-16 COVID-19 VACCINE (#1) [facility] Hospital Test 21:38:44 [code = COVID-19 VACCINE (#1)] Future Scheduled 2022-06-16 [facility] 21:38:44 Pediatrics (0 to 5 Years) and At-Risk Patients (6 to 64 Years) (1 - PCV) [code = Pneumococcal Vaccine: Pediatrics (0 to 5 Years) and At-Risk Patients (6 to 64 Years) (1 - PCV)] Future Scheduled 2022-06-16 Hepatitis C screening [facility] Hospital Test 21:38:44 (procedure) [code = 793554786] Future Scheduled 2022-06-16 COLONOSCOPY SCREENING [facility] Test 21:38:44 [code = COLONOSCOPY SCREENING] Future Scheduled 2022-06-16 INFLUENZA VACCINE [facility] Test 21:38:44 [code = INFLUENZA VACCINE] [facility] (12+) [code = [facility] DEPRESSION SCREENING (12+)] Future Scheduled 2022-02-28 HEPATITIS B VACCINES Met [facility] Test 10:00:19 (1 of 3 - 3-dose series) [code = HEPATITIS B VACCINES (1 of 3 - 3-dose series)] Future Scheduled 2022-02-28 COVID-19 VACCINE (#1) [facility] Test 10:00:19 [code = COVID-19 VACCINE (#1)] Future Scheduled 2022-02-28 Pneumococcal Vaccine: [facility] Test 10:00:19 Pediatrics (0 to 5 Years) and At-Risk Patients (6 to 64 Years) (1 - PCV) [code = Pneumococcal Vaccine: Pediatrics (0 to 5 Years) and At-Risk Patients (6 to 64 Years) (1 - PCV)] Future Scheduled 2022-02-28 Hepatitis C screening [facility] Test 10:00:19 (procedure) [code = 741811360] Future Scheduled 2022-02-28 COLONOSCOPY SCREENING [facility] Test 10:00:19 [code = COLONOSCOPY SCREENING] Future Scheduled 2022-02-28 INFLUENZA VACCINE Method [facility] Test 10:00:19 [code = INFLUENZA VACCINE] Future Scheduled 2022-02-12 HEPATITIS B VACCINES Met [facility] [place] Test 07:56:41 (1 of 3 - 3-dose series) [code = HEPATITIS B VACCINES (1 of 3 - 3-dose series)] Future Scheduled 2022-02-12 COVID-19 VACCINE (#1) [facility] Test 07:56:41 [code = COVID-19 VACCINE (#1)] Future Scheduled 2022-02-12 Pneumococcal Vaccine: [facility] Test 07:56:41 Pediatrics (0 to 5 Years) and At-Risk Patients (6 to 64 Years) (1 - PCV) [code = Pneumococcal Vaccine: Pediatrics (0 to 5 Years) and At-Risk Patients (6 to 64 Years) (1 - PCV)] Future Scheduled 2022-02-12 Hepatitis C screening [facility] Test 07:56:41 (procedure) [code = 057016117] Future Scheduled 2022-02-12 COLONOSCOPY SCREENING [facility] Test 07:56:41 [code = COLONOSCOPY SCREENING] Future Scheduled 2022-02-12 INFLUENZA VACCINE Method [facility] Test 07:56:41 [code = INFLUENZA VACCINE] Future Scheduled 2022-02-07 HEPATITIS B VACCINES Met [facility] [place] Test 15:27:38 (1 of 3 - 3-dose series) [code = HEPATITIS B VACCINES (1 of 3 - 3-dose series)] Future Scheduled 2022-02-07 COVID-19 VACCINE (#1) [facility] Test 15:27:38 [code = COVID-19 VACCINE (#1)] Future Scheduled 2022-02-07 Pneumococcal Vaccine: [facility] Test 15:27:38 Pediatrics (0 to 5 Years) and At-Risk Patients (6 to 64 Years) (1 - PCV) [code = Pneumococcal Vaccine: Pediatrics (0 to 5 Years) and At-Risk Patients (6 to 64 Years) (1 - PCV)] Future Scheduled 2022-02-07 Hepatitis C screening [facility] Test 15:27:38 (procedure) [code = 238207272] Future Scheduled 2022-02-07 COLONOSCOPY SCREENING [facility] Test 15:27:38 [code = COLONOSCOPY SCREENING] Future Scheduled 2022-02-07 INFLUENZA VACCINE Method [facility] Test 15:27:38 [code = INFLUENZA VACCINE] Future Scheduled 2022-01-25 HEPATITIS B VACCINES Met [facility] [place] Test 11:11:15 (1 of 3 - 3-dose series) [code = HEPATITIS B VACCINES (1 of 3 - 3-dose series)] Future Scheduled 2022-01-25 COVID-19 VACCINE (#1) [facility] Test 11:11:15 [code = COVID-19 VACCINE (#1)] Future Scheduled 2022-01-25 Pneumococcal Vaccine: [facility] Test 11:11:15 Pediatrics (0 to 5 Years) and At-Risk Patients (6 to 64 Years) (1 - PCV) [code = Pneumococcal Vaccine: Pediatrics (0 to 5 Years) and At-Risk Patients (6 to 64 Years) (1 - PCV)] Future Scheduled 2022-01-25 Hepatitis C screening [facility] Test 11:11:15 (procedure) [code = 438730775] Future Scheduled 2022-01-25 COLONOSCOPY SCREENING [facility] Test 11:11:15 [code = COLONOSCOPY SCREENING] Future Scheduled 2022-01-25 INFLU[facility]ZA VACCINE [facility] Test 11:11:15 [code = INFLUENZA VACCINE] [...] Test 00:00:00 (procedure) [code = Medical Center [id number]] Future Scheduled [address] [facility] Test 00:[facility]:00 (procedure) [code = Medical Center 91967372] Future Scheduled [address] [facility] Test 00:00:00 (procedure) [code = Medical Center 72269268] Future Scheduled [facility] [facility] (procedure) [code = [facility] [id number]] Future Scheduled [address] [facility] (procedure) [code = [facility] 55111081] Future Scheduled [address] [facility] 00:00:00 (procedure) [code = [facility] 21385024] Future Scheduled [address] [facility] 00:00:00 (procedure) [code = [facility] 54150579] Future Scheduled [address] [facility] 00:00:00 (procedure) [code = [facility] 81979887] Future Scheduled 1995 DTAP/TDAP/TD VACCINES [facility] (procedure) [code = 350693388] Future Scheduled [address] [facility] (procedure) [code = 147992535] Future Scheduled [address] [facility] (procedure) [code = 631906586] Future Scheduled [address] [facility] colon (procedure) [code = 303295110] Future Scheduled 1976 Sigmoidoscopy [facility]] Medical [facility] Future Scheduled [address] [facility] 00:[facility]:00 (combo) [code = CT Medical C enter Colonography (combo)] Future Scheduled [address] [facility] colon (procedure) [code = 631622344] Future Scheduled [address] [facility] colon (procedure) [code = 226389989] Future Scheduled [address] [facility] colon (procedure) [code = 699293820] Future Scheduled [address] [facility] colon (procedure) [code = 410195273] Future Scheduled 1976 Sigmoidoscopy [facility]] Medical Chirage r Future Scheduled [address] [facility] 00:00:00 (combo) [code = CT Medical C enter Colonography (combo)] Future Scheduled [address] [facility] colon (procedure) [code = 543364315] Future Scheduled [address] [facility] colon (procedure) [code = 040924289] Future Scheduled [address] [facility] colon (procedure) [code = 391139795] Future Scheduled [address] [facility] 00:[facility] colon (procedure) [code = 640582969] Future Scheduled 1976 Sigmoidoscopy [facility]] Medical Chirage r Future Scheduled [address] [facility] 00:00:00 (combo) [code = CT Medical C enter Colonography (combo)] Future Scheduled [address] [facility] colon (procedure) [code = 412791616] Future Scheduled [address] [facility] colon (procedure) [code = 442036049] Future Scheduled [address] [facility] 00:[facility] colon (procedure) [code = 744961905] Future Scheduled [address] [facility] colon (procedure) [code = 943746954] Future Scheduled 1976 Sigmoidoscopy [facility]code [facility]] Medical Chirage r Future Scheduled [address] [facility] 00:00:00 (combo) [code = CT Medical C enter Colonography (combo)] Future Scheduled [address] [facility] colon (procedure) [code = 686295300] Future Scheduled [address] [facility] 00:[facility] colon (procedure) [code = 518160523] Future Scheduled [address] [facility] 00:[facility] colon (procedure) [code = 259274998] Future Scheduled [address] [facility] 00:[facility] colon (procedure) [code = 451318465] Future Scheduled 1976 [facility]oidoscopy [facility] [address] [facility] 00:00:00 (combo) [code = CT Medical C enter Colonography (combo)] Future Scheduled [address] [facility] 00:[facility] colon (procedure) [code = 224090678] Future Scheduled [address] [facility] 00:[facility] colon (procedure) [code = 977991447] Future Scheduled [address] [facility] colon (procedure) [code = 803952555] Future Scheduled [address] [facility] colon (procedure) [code = 452324358] Future Scheduled 1976 [facility]oidoscopy [facility]] Medical Chirage r Future Scheduled [address] [facility] 00:00:00 (combo) [code = CT Medical C enter Colonography (combo)] Future Scheduled [address] [facility] 00:[facility] colon (procedure) [code = 128015703] Future Scheduled [address] [facility] 00:[facility] colon (procedure) [code = 630617968] Future Scheduled [address] [facility] 00:[facility] colon (procedure) [code = 389760971] Future Scheduled [address] [facility] 00:[facility] colon (procedure) [code = 388267428] Future Scheduled 1976 Sigmoidoscopy [facility]code [facility] Medical Cent[facility] r Future Scheduled [address] [facility] 00:00:00 (combo) [code = CT Medical C enter Colonography (combo)] Future Scheduled [address] [facility] 00:[facility] colon (procedure) [code = 948207421] Future Scheduled [address] [facility] 00:[facility] colon (procedure) [code = 081872967] Future Scheduled [address] [facility] 00:[facility] colon (procedure) [code = 395985567] Future Scheduled [address] [facility] colon (procedure) [code = 432386072] Future Scheduled 1976 [facility]oidoscopy [facility] Medical Cente r Encounters Start End Encounter Admission Attending Care Care Encounter Source Date/Time Date/Time Type Type Clinicians Facility Department ID 2022-07-23 2022-07-23 Office Gorge, 1.2.840.1 [id number] Methodi 13:00:00 13:40:09 Visit Rochelle 97981.1.[address] [place] 3.430.2.7 Hosp antione .3.591361 l .8 2022-07-23 2022-07-23 Office [place]orge 1.2.840.1 [id number] Methodi 13:00:00 13:40:09 Visit Rochelle 45444.1.[address] [place] 3.430.2.7 Hosp antione .3.378022 l .8 2022-07-23 2022-07-23 Travel 1.2.840.1 1.2.660.806 7134 [id number] Methodi 00:00:00 00:00:[address] 3.430.2.7 0.2.7.3.698 Ho spita .3.944187 084.8 l .8 2022-07-23 2022-07-23 Travel 1.2.840.1 1.2.913.430 0104 [id number] Methodi 00:00:00 00:00:[address] 3.430.2.7 0.2.7.3.698 Ho spita .3.366531 084.8 l .8 2022-04-23 2022-04-23 Office [place], 1.2.840.1 [id number] Methodi 10:00:00 10:47:08 Visit Rochelle 67042.1.[address] [place] 3.430.2.7 Hosp antione .3.886747 l .8 2022-04-23 2022-04-23 Office [place], 1.2.840.1 [id number] Methodi 10:00:00 10:47:08 Visit Rochelle 92203.1.[address] [place] 3.430.2.7 Hosp antione .3.214017 l .8 2022-04-23 2022-04-23 Travel 1.2.840.1 1.2.823.191 8413 842067 Methodi 00:00:00 00:00:[address] 3.430.2.7 0.2.7.3.698 Ho spita .3.367487 084.8 l .8 2022-04-23 2022-04-23 Travel 1.2.840.1 1.2.016.550 2324 [id number] Methodi 00:00:00 00:00:[address] 3.430.2.7 0.2.7.3.698 Ho spita .3.562728 084.8 l .8 2022-04-19 2022-04-19 Telephone Gorge, 1.2.840.1 [id number] 2100 [id number] Methodi 00:00:00 00:00:[address] [place] 3.430.2.7 Hosp antione .3.674144 l .8 2022-04-19 2022-04-19 Telephone Gorge, 1.2.840.1 [id number] 2100 [id number] Methodi 00:00:00 00:00:[address] [place] 3.430.2.7 Hosp antione .3.340764 l .8 2022-04-18 2022-04-18 Telephone Omer, 1.2.840.1 [id number] Methodi 00:00:00 00:00:[address] 3.430.2.7 Hospit a .3.569190 l .8 2022-04-18 2022-04-18 Telephone Omer, 1.2.840.1 [id number] Methodi 00:00:00 00:00:[address] 3.430.2.7 Hospit a .3.370786 l .8 2022-04-12 2022-04-12 Telephone Gorge, 1.2.840.1 [id number] 2099 [id number] Methodi 00:00:00 00:00:[address] [place] 3.430.2.7 Hosp antione .3.625220 l .8 2022-04-12 2022-04-12 Telephone Gorge, 1.2.840.1 [id number] 2099 [id number] Methodi 00:00:00 00:00:[address] [place] 3.430.2.7 Hosp antione .3.574028 l .8 2022-04-11 2022-04-11 Office [place], 1.2.840.1 [id number] Methodi 13:00:00 13:44:34 Visit Rochelle 91321.1.[address] [place] 3.430.2.7 Hosp antione .3.839712 l .8 2022-04-11 2022-04-11 Office [place], 1.2.840.1 [id number] Methodi 13:00:00 13:44:34 Visit Rochelle 59254.1.[address] [place] 3.430.2.7 Hosp antione .3.273611 l .8 2022-04-11 2022-04-11 Outpatient [facility] [id number] 00:00:00 00:00:[address] 2022-04-11 2022-04-11 Telephone Gorge, 1.2.840.1 [id number] Methodi 00:00:00 00:00:[address] [place] 3.430.2.7 Hosp antione .3.643575 l .8 2022-04-11 2022-04-11 Travel 1.2.840.1 1.2.426.351 6068 [id number] Methodi 00:00:00 00:00:[address] 3.430.2.7 0.2.7.3.698 Ho spita .3.026493 084.8 l .8 2022-04-11 2022-04-11 Telephone Gorge, 1.2.840.1 [id number] Methodi 00:00:00 00:00:[address] [place] 3.430.2.7 Hosp antione .3.128375 l .8 2022-04-11 2022-04-11 Travel 1.2.840.1 1.2.775.563 2261 [id number] Methodi 00:00:00 00:00:[address] 3.430.2.7 0.2.7.3.698 Ho spita .3.163331 084.8 l .8 2022-04-08 2022-04-08 Telephone Gorge, 1.2.840.1 209985 Methodi 00:00:00 00:00:[address] [place] 3.430.2.7 Hosp antione .3.368805 l .8 2022-04-08 2022-04-08 Telephone Gorge, 1.2.840.1 [id number] Methodi 00:00:00 00:00:[address] [place] 3.430.2.7 Hosp antione .3.231068 l .8 2022-04-05 2022-04-05 Telephone Lopez, 1.2.840.1 [id number] 217 [id number] Methodi 00:00:00 00:00:00 Crysandria 04119.1.1 [address] 3.430.2.7 Hospit a .3.423685 l .8 2022-04-05 2022-04-05 Telephone Jessica, 1.2.840.1 [id number] 488 [id number] Methodi 00:00:00 00:00:00 Crysandria 96751.1.1 388 [address] t 3.430.2.7 Hospit a .3.626926 l .8 2022-03-11 2022-03-11 Office [place], 1.2.840.1 [id number] Methodi 11:30:00 11:53:30 Visit Rochelle 65996.1.[address] [place] 3.430.2.7 Hosp antione .3.870153 l .8 2022-03-11 2022-03-11 Office [place], 1.2.840.1 [id number] 9195 Methodi 11:30:00 11:53:30 Visit Rochelle 12424.1.[address] [place] 3.430.2.7 Hosp antione .3.350275 l .8 2022-02-26 2022-02-26 Telephone Shane, 1.2.840.1 [id number] 284 [id number] Methodi 00:00:00 00:00:[address] 3.430.2.7 Hospit a .3.508123 l .8 2022-02-26 2022-02-26 Telephone Shane, 1.2.840.1 [id number] 295 [id number] Methodi 00:00:00 00:00:[address] 3.430.2.7 Hospit a .3.128402 l .8 2022-02-07 2022-02-07 Office Asked, No Pcp 1.2.840.1 [id number] Methodi 15:00:00 16:33:51 Visit Rochelle [place] 38439.1.[address] 3.430.2.7 Hospit a .3.925391 l .8 2022-02-07 2022-02-07 Office Asked, No Pcp 1.2.840.1 [id number] Methodi 15:00:00 16:33:51 Visit Rochelle [place] 10517.1.[address] 3.430.2.7 Hospit a .3.891466 l .8 2022-02-07 2022-02-07 Travel 1.2.840.1 1.2.040.877 5306 [id number] Methodi 00:00:00 00:00:[address] 3.430.2.7 0.2.7.3.698 Ho spita .3.192464 084.8 l .8 2022-02-07 2022-02-07 Travel 1.2.840.1 1.2.354.830 0322 321706 Methodi 00:00:00 00:00:[address] 3.430.2.7 0.2.7.3.698 Ho spita .3.672635 084.8 l .8 2022-02-01 2022-02-01 Telephone Gianna, 1.2.840.1 [id number] Methodi 00:00:00 00:00:[address] 3.430.2.7 Hospit a .3.022206 l .8 2022-02-01 2022-02-01 Telephone Katz, 1.2.840.1 [id number] 21 [id number] Methodi 00:00:00 00:00:[address] 3.430.2.7 Hospit a .3.940635 l .8 2022-01-25 2022-01-25 Telephone Curry, 1.2.840.1 [id number] Methodi 00:00:00 00:00:[address] 3.430.2.7 Hospit a .3.851846 l .8 2022-01-25 2022-01-25 Telephone Antoinette, 1.2.840.1 [id number] Methodi 00:00:00 00:00:[address] 3.430.2.7 Hospit a .3.863355 l .8 2022-01-01 2022-01-16 Office Dyllan Albert 1.2.840.1 [id number] 28344 Methodi 09:00:00 04:17:[address] 3.430.2.7 Hospit a .3.317586 l .8 2022-01-01 2022-01-16 Office Dyllan Albert 1.2.840.1 [id number] 85824 86591 Methodi 09:00:00 04:17:[address] 3.430.2.7 Hospit a .3.956084 l .8 2022-01-11 2022-01-11 Telephone Omer, 1.2.840.1 [id number] 21 [id number] Methodi 00:00:00 00:00:[address] 3.430.2.7 Hospit a .3.510884 l .8 2022-01-11 2022-01-11 Telephone Omer, 1.2.840.1 [id number] 21 [id number] Methodi 00:00:00 00:00:[address] 3.430.2.7 Hospit a .3.619430 l .8 2022-01-09 2022-01-09 Hospital yDllan Albert 1.2.840.1 [id number] 2099 [id number] Methodi 07:17:00 17:05:[address] 3.430.2.7 Hospit a .3.172824 l .8 2022-01-09 2022-01-09 [facility] Dyllan Albert 1.2.840.1 [id number] 2100 050033 Methodi 07:17:00 17:05:[address] 3.430.2.7 Hospit a .3.284683 l .8 2022-01-09 2022-01-09 Anesthesia Sanju Solorzanocitlali Thompson 1.2.840. 1 [id number] Methodi 12:26:00 15:04:00 Event Whitney Cano 16478.1.[address] 3.430.2.7 Hospit a .3.164038 l .8 2022-01-09 2022-01-09 Anesthesia Carolyn Solorzano Donna 1.2.840. 1 [id number] Methodi 12:26:00 15:04:00 Event Whitney Cano 20055.1.[address] 3.430.2.7 Hospit a .3.598357 l .8 2022-01-09 2022-01-09 Surgery Dyllan Albert 1.2.840.1 [id number] 76604 Methodi 11:27:00 13:02:[address] 3.430.2.7 Hospit a .3.604919 l .8 2022-01-09 2022-01-09 [facility] Dyllan Albert 1.2.840.1 [id number] 79425 Methodi 11:27:00 13:02:[address] 3.430.2.7 Hospit a .3.722762 l .8 2022-01-07 2022-01-07 [facility] Dyllan Albert 1.2.840.1 [id number] 2100 [id number] Methodi 10:05:52 23:59:[address] 3.430.2.7 Hospit a .3.690923 l .8 2022-01-07 2022-01-07 [facility] Dyllan Albert 1.2.840.1 [id number] 2099 [id number] Methodi 10:05:52 23:59:[address] 3.430.2.7 Hospit a .3.879321 l .8 2022-01-07 2022-01-07 Pre-Admiss Dyllan Albert 1.2.840.1 [id number] 21 [id number] Methodi 09:00:00 10:00:[address] Testing 3.430.2.7 Hospit a .3.880024 l .8 2022-01-07 2022-01-07 Pre-Admiss Dyllan Albert 1.2.840.1 [id number] 21 [id number] Methodi 09:00:00 10:00:[address] Testing 3.430.2.7 Hospit a .3.231245 l .8 2022-01-07 2022-01-07 Travel 1.2.840.1 1.2.950.570 8766 934573 Methodi 00:00:00 00:00:[address] 3.430.2.7 0.2.7.3.698 Ho spita .3.658565 084.8 l .8 2022-01-07 2022-01-07 Travel 1.2.840.1 1.2.512.201 1036 354070 Methodi 00:00:00 00:00:[address] 3.430.2.7 0.2.7.3.698 Ho spita .3.343982 084.8 l .8 2022-01-01 2022-01-01 Prep for Curry, 1.2.840.1 [id number] 2 [id number] Methodi 00:00:00 00:00:00 Surgery April [address]1154.1.[address] 3.430.2.7 Hospit a .3.194981 l .8 2022-01-01 2022-01-01 Prep for Curry, 1.2.840.1 [id number] 2 [id number] Methodi 00:00:00 00:00:00 Surgery April [address]33.1.[address] 3.430.2.7 Hospit a .3.075296 l .8 2021-12-26 2021-12-26 Telephone Omer, 1.2.840.1 [id number] Methodi 00:00:00 00:00:[address] 3.430.2.7 Hospit a .3.537783 l .8 2021-12-26 2021-12-26 Telephone Omer, 1.2.840.1 [id number] Methodi 00:00:00 00:00:[address] 3.430.2.7 Hospit a .3.040045 l .8 2021-12-25 2021-12-25 Telephone Antoinette, 1.2.840.1 [id number] Methodi 00:00:00 00:00:[address] 3.430.2.7 Hospit a .3.514160 l .8 2021-12-25 2021-12-25 Telephone Antoinette, 1.2.840.1 [id number] Methodi 00:00:00 00:00:[address] 3.430.2.7 Hospit a .3.773228 l .8 2021-09-06 2021-09-06 Lab [facility] [id number] 00:00:00 00:00:00 [facility] 2021-05-13 2021-05-13 Letter SALBADOR Cabrera 1.2.840.114 [id number] 12 Univers 00:00:00 00:00:00 (Out) Desi CONRAD 350.1.13.10 it [facility] 4.2.7.2.686 Kj as [id number] [address] 2021-05-12 2021-05-12 Emergency X JOSE [facility] ERT [id number] Univers 08:47:00 11:17:00 TURNER rodriguez [facility] 2021-05-12 2021-05-12 Emergency Jose [facility] 1.2.712.051 7417 4516 Univers 08:47:00 11:17:00 Turner MARIE 350.1.13.10 [facility] 4.2.7.2.686 [facility] [id number] [facility] [address] Results Test Description Test Time Test Comments Results Result Comments Source POC glucose 2022-01-09 21:00:00 Test Item Value Reference Range Interpretation Comme nts POC glucose (test code = 214 mg/dL 65-99 H Ope rator Name: Joshua Devin 63229-6) ID: [id number] hartable: RN Notified Lab Interpretation (test code = Abnormal 35206-4) [facility] [id number] 21:00:00 Test Item Value Reference Range Interpretation Comments POC glucose (test code = 214 mg/dL 65-99 H Ope rator Name: 57421-4) Joshua haywood ID: [id number] able: RN Notified Lab Interpretation (test Abnormal code = 22643-5) [facility]2022-09-21 21:00:00 Test Item Value Reference Range Interpretation Comments POC glucose (test code = 214 mg/dL 65-99 H Ope rator Name: [id number]) Joshua haywood ID: [id number] able: RN Notified Lab Interpretation (test Abnormal code = 97979-3) [facility]2022-09-21 21:00:00 Test Item Value Reference Range Interpretation Comments POC glucose (test code = 214 mg/dL 65-99 H Ope rator Name: [id number]) Joshua haywood ID: [id number] able: RN Notified Lab Interpretation (test Abnormal code = 98646-3) [facility]2022-09-21 21:00:00 Test Item Value Reference Range Interpretation Comments POC glucose (test code = 214 mg/dL 65-99 H Ope rator Name: [id number]) Joshua haywood ID: [id number] able: RN Notified Lab Interpretation (test Abnormal code = 44474-8) [facility]2022-09-21 21:00:00 Test Item Value Reference Range Interpretation Comments POC glucose (test code = 214 mg/dL 65-99 H Ope rator Name: [id number]) Joshua haywood ID: [id number] able: RN Notified Lab Interpretation (test Abnormal code = 35167-4) [facility] [id number] 21:00:00 Test Item Value Reference Range Interpretation Comments POC glucose (test code = 214 mg/dL 65-99 H Ope rator Name: 80638-4) Joshua haywood ID: [id number] able: RN Notified Lab Interpretation (test Abnormal code = 59564-8) [facility] [id number] 13:44:01 Test Item Value Reference Range Interpretation Comments POC sodium (test code = 135 mmol/L 050-025 5948-0) POC potassium (test 4.5 mmol/L 3.5-5.0 code = 6298-4) POC glucose (test code 280 mg/dL 65-99 H = 2339-0) POC creatinine (test 6.0 mg/dl 0.7-1.2 H Operato r Name: code = 79198-8) Israel Roldan ID : [id number] POC hemoglobin (test 11.9 g/dL 14.0-18.0 L code = 718-7) POC hematocrit (test 35 % 41-51 L code = 4544-3) Lab Interpretation Abnormal (test code = 68260-6) [facility] [id number] 13:44:01 Test Item Value Reference Range Interpretation Comments POC sodium (test code = 135 mmol/L 591-564 6417-0) POC potassium (test 4.5 mmol/L 3.5-5.0 code = 6298-4) POC glucose (test code 280 mg/dL 65-99 H = 2339-0) POC creatinine (test 6.0 mg/dl 0.7-1.2 H Operato r Name: code = 93125-7) Israel Roldan ID : [id number] POC hemoglobin (test 11.9 g/dL 14.0-18.0 L code = 718-7) POC hematocrit (test 35 % 41-51 L code = 4544-3) Lab Interpretation Abnormal (test code = 79753-9) [facility]2022-09-21 13:44:01 Test Item Value Reference Range Interpretation Comments POC sodium (test code = 135 mmol/L 230-269 0811-0) POC potassium (test 4.5 mmol/L 3.5-5.0 code = 6298-4) POC glucose (test code 280 mg/dL 65-99 H = 2339-0) POC creatinine (test 6.0 mg/dl 0.7-1.2 H Operato r Name: code = 03698-8) Israel Roldan ID : [id number] POC hemoglobin (test 11.9 g/dL 14.0-18.0 L code = 718-7) POC hematocrit (test 35 % 41-51 L code = 4544-3) Lab Interpretation Abnormal (test code = 40952-7) [facility]2022-09-21 13:44:01 Test Item Value Reference Range Interpretation Comments POC sodium (test code = 135 mmol/L 126-569 6361-0) POC potassium (test 4.5 mmol/L 3.5-5.0 code = 6298-4) POC glucose (test code 280 mg/dL 65-99 H = 2339-0) POC creatinine (test 6.0 mg/dl 0.7-1.2 H Operato r Name: code = 47811-5) Israel Roldan ID : [id number] POC hemoglobin (test 11.9 g/dL 14.0-18.0 L code = 718-7) POC hematocrit (test 35 % 41-51 L code = 4544-3) Lab Interpretation Abnormal (test code = 27029-4) [facility]2022-09-21 13:44:01 Test Item Value Reference Range Interpretation Comments POC sodium (test code = 135 mmol/L 996-901 8937-0) POC potassium (test 4.5 mmol/L 3.5-5.0 code = 6298-4) POC glucose (test code 280 mg/dL 65-99 H = 2339-0) POC creatinine (test 6.0 mg/dl 0.7-1.2 H Operato r Name: code = 53281-3) Israel Roldan ID : [id number] POC hemoglobin (test 11.9 g/dL 14.0-18.0 L code = 718-7) POC hematocrit (test 35 % 41-51 L code = 4544-3) Lab Interpretation Abnormal (test code = 21072-4) [facility] [id number] 13:44:01 Test Item Value Reference Range Interpretation Comments POC sodium (test code = 135 mmol/L 422-974 6804-0) POC potassium (test 4.5 mmol/L 3.5-5 code = 6298-4) POC glucose (test code 280 mg/dL 65-99 H = 2339-0) POC creatinine (test 6.0 mg/dl 0.7-1.2 H Operato r Name: code = 27963-9) Israel Roldan ID : [id number] POC hemoglobin (test 11.9 g/dL 14-18 L code = 718-7) POC hematocrit (test 35 % 41-51 L code = 4544-3) Lab Interpretation Abnormal (test code = 01492-0) [facility]2022-09-21 13:44:01 Test Item Value Reference Range Interpretation Comments POC sodium (test code = 135 mmol/L 721-461 2822-0) POC potassium (test 4.5 mmol/L 3.5-5.0 code = 6298-4) POC glucose (test code 280 mg/dL 65-99 H = 2339-0) POC creatinine (test 6.0 mg/dl 0.7-1.2 H Operato r Name: code = 06213-6) Israel Roldan ID : [id number] POC hemoglobin (test 11.9 g/dL 14.0-18.0 L code = 718-7) POC hematocrit (test 35 % 41-51 L code = 4544-3) Lab Interpretation Abnormal (test code = 74828-2) [id number]:44:00 Test Item Value Reference Range Interpretation Comments Estimated GFR (test mL/min/1.73 m2 Monisha amaya Units code = 61070-5) Interpretati onG1 >=90 Normal or highG 2 60-89 Mildly decrease dG3a 45-59 Mildly to moderately decr [id number] 30-44 Moderatel y to severely decrea sedG4 15-29 Severely decreasedG5 <15 Kidney failureThe eGFR was calculated usin g the Chronic Kidney Disease Epidemiology Collaboration ( CKD-EPI) equation. Interpretation is based on recommendati ons of the [facility] Disease Outcome s Quality Initiat marshall ([facility] [facility] l[facility] in 2013. Lab Interpretation Abnormal (test code = 95166-9) [facility] [id number] 13:44:00 Test Item Value Reference Range Interpretation Comments Estimated GFR (test mL/min/1.73 m2 A Caterg ory Units code = 91899-6) Interpretati onG1 >=90 Normal or highG 2 60-89 Mildly decrease dG3a 45-59 Mildly to moderately decr xkhcjO3l 30-44 Moderatel y to severely decrea sedG4 15-29 Severely decreasedG5 <15 Kidney failureThe eGFR was calculated usin g the Chronic Kidney Disease Epidemiology Collaboration ( CKD-EPI) equation. Interpretation is based on recommendati ons of the [facility] Disease Outcome s Quality Initiat marshall ([facility]) pub lished in 2013. Lab Interpretation Abnormal (test code = 87824-1) [facility] [id number] 13:44:00 Test Item Value Reference Range Interpretation Comments Estimated GFR (test mL/min/1.73 m2 A Caterg ory Units code = 38391-8) Interpretati onG1 >=90 Normal or highG 2 60-89 Mildly decrease dG3a 45-59 Mildly to moderately decr hqjhbJ0r 30-44 Moderatel y to severely decrea sedG4 15-29 Severely decreasedG5 <15 Kidney failureThe eGFR was calculated usin g the Chronic Kidney Disease Epidemiology Collaboration ( CKD-EPI) equation. Interpretation is based on recommendati ons of the [facility] Disease Outcome s Quality Initiat [facility] ([facility]) pub lished in 2013. Lab Interpretation Abnormal (test code = 41331-4) [facility] [id number] 13:44:00 Test Item Value Reference Range Interpretation Comments Estimated GFR (test 10 mL/min/1.73 m2 A Caterg ory Units code = 72790-5) Interpretati onG1 >=90 Normal or highG 2 60-89 Mildly decrease dG3a 45-59 Mildly to moderately decr qhmdiK7p 30-44 Moderatel y to severely decrea sedG4 15-29 Severely decreasedG5 <15 Kidney failureThe eGFR was calculated usin g the Chronic Kidney Disease Epidemiology Collaboration ( CKD-EPI) equation. Interpretation is based on recommendati ons of the [facility] Disease Outcome s Quality Initiat [facility] ([facility]) pub lished in 2013. Lab Interpretation Abnormal (test code = 21308-4) [facility] [id number] 13:44:00 Test Item Value Reference Range Interpretation Comments Estimated GFR (test 10 mL/min/1.73 m2 A Caterg ory Units code = 90050-0) Interpretati onG1 >=90 Normal or highG 2 60-89 Mildly decrease dG3a 45-59 Mildly to moderately decr ptpkhF9a 30-44 Moderatel y to severely decrea sedG4 15-29 Severely decreasedG5 <15 Kidney failureThe eGFR was calculated usin g the Chronic Kidney Disease Epidemiology Collaboration ( CKD-EPI) equation. Interpretation is based on recommendati ons of the [facility] Disease Outcome s Quality Initiat marsh[facility] ([facility]) pub lished in 2013. Lab Interpretation Abnormal (test code = 37384-0) [facility] [id number] 13:44:00 Test Item Value Reference Range Interpretation Comments Estimated GFR (test mL/min/1.73 m2 A Caterg ory Units code = 53337-4) Interpretati onG1 >=90 Normal or highG 2 60-89 Mildly decrease dG3a 45-59 Mildly to moderately decr mqgvrX0n 30-44 Moderatel y to severely decrea sedG4 15-29 Severely decreasedG5 <15 Kidney failureThe eGFR was calculated usin g the Chronic Kidney Disease Epidemiology Collaboration ( CKD-EPI) equation. Interpretation is based on recommendati ons of the [facility] Disease Outcome s Quality Initiat marsh[facility] ([facility]) pub lished in 2013. Lab Interpretation Abnormal (test code = 54748-6) [facility] [id number] 13:44:00 Test Item Value Reference Range Interpretation Comments Estimated GFR (test 10 mL/min/1.73 m2 A Caterg ory Units code = 59651-8) Interpretati onG1 >=90 Normal or highG 2 60-89 Mildly decrease dG3a 45-59 Mildly to moderately decr wlxzrD3p 30-44 Moderatel y to severely decrea sedG4 15-29 Severely decreasedG5 <15 Kidney failureThe eGFR was calculated mary anne ibarra the Chronic Kidney Disease Epidemiology Collaboration ( CKD-EPI) equation. Interpretation is based on recommendati ons of the [facility] Disease Outcome s Quality Initiat marsh[facility] ([facility]) pub [facility] in 2013. Lab Interpretation Abnormal (test code = 82978-0) [facility]8 (COVID-19) RNA [Presence] in Respiratory specimen by YESENIA with probe [id number] 17:48:52 Test Item Value Reference Range Interpretation Comments SARS-CoV-2 (COVID-19) RNA Not detected [Presence] in Respiratory specimen by YESENIA with probe detection (test code = 94668-4) Whether patient is employed in a Unknown healthcare setting (test code = 07544-6) Whether the patient has symptoms Unknown related to condition of interest (test code = 89267-0) Whether the patient was Unknown hospitalized for condition of interest (test code = 33129-7) Whether the patient was admitted Unknown to intensive care unit (ICU) for condition of interest (test code = 01799-1) Whether patient resides in a Unknown congregate care setting (test code = 34185-1) status (test code = Unknown 99882-7) Date and time of symptom onset Unknown (test code = 06839-7) [facility] Pre/Post [id number] 17:20:24 Test Item Value Reference Range Interpretation Comments Ventricular rate (test code = 253) Atrial rate (test code = 255) [place] interval (test code = 266) QRSD interval (test code = 260) QT interval (test code = 264) QTC interval (test code = 265) P axis 1 (test code = 267) QRS axis 1 (test code = 268) T wave axis (test code = 270) EKG impression (test Sinus rhythm with code = 273) occasional premature ventricular complexes-Left axis deviation-Abnormal ECG-No previous ECGs available- [facility] Pre/Post [id number] 17:20:24 Test Item Value Reference Range Interpretation Comments Ventricular rate (test code = 253) Atrial rate (test code = 255) [place] interval (test code = 266) QRSD interval (test code = 260) QT interval (test code = 264) QTC interval (test code = 265) P axis 1 (test code = 267) QRS axis 1 (test code = 268) T wave axis (test code = 270) EKG impression (test Sinus rhythm with code = 273) occasional premature ventricular complexes-Left axis deviation-Abnormal ECG-No previous ECGs available- [facility] Pre/Post [id number] 17:20:24 Test Item Value Reference Range Interpretation Comments Ventricular rate (test code = 253) Atrial rate (test code = 255) [place] interval (test code = 266) QRSD interval (test code = 260) QT interval (test code = 264) QTC interval (test code = 265) P axis 1 (test code = 267) QRS axis 1 (test code = 268) T wave axis (test code = 270) EKG impression (test Sinus rhythm with code = 273) occasional premature ventricular complexes-Left axis deviation-Abnormal ECG-No previous ECGs available- [facility] Pre/Post [id number] 17:20:24 Test Item Value Reference Range Interpretation Comments Ventricular rate 91 (test code = 253) Atrial rate (test 91 code = 255) [place] interval (test 114 code = 266) QRSD [...] complexes-Left axis deviation-Abnormal ECG-No previous ECGs available- [facility] Pre/Post [id number] 17:20:24 Test Item Value Reference Range Interpretation Comments Ventricular rate 91 (test code = 253) Atrial rate (test 91 code = 255) [place] interval (test 114 code = 266) QRSD [...] complexes-Left axis deviation-Abnormal ECG-No previous ECGs available- [facility] Pre/Post [id number] 17:20:24 Test Item Value Reference Range Interpretation Comments Ventricular rate (test code = 253) Atrial rate (test code = 255) [place] interval (test code = 266) QRSD interval (test code = 260) QT interval (test code = 264) QTC interval (test code = 265) P axis 1 (test code = 267) QRS axis 1 (test code = 268) T wave axis (test code = 270) EKG impression (test Sinus rhythm with code = 273) occasional premature ventricular complexes-Left axis deviation-Abnormal ECG-No previous ECGs available- [facility] Pre/Post [id number] 17:20:24 Test Item Value Reference Range Interpretation Comments Ventricular rate 91 (test code = 253) Atrial rate (test 91 code = 255) [place] interval (test 114 code = 266) QRSD [...] complexes-Left axis deviation-Abnormal ECG-No previous ECGs available- [facility]2022-09-19 15:46:00 Test Item Value Reference Range Interpretation Comments Urine culture (test SEE COMMENT Bacteriu lashell screen code = 7830098) negative. [facility]2022-09-19 15:46:00 Test Item Value Reference Range Interpretation Comments Urine culture (test SEE COMMENT Bacteriu lashell screen code = 1497609) negative. [facility]2022-09-19 15:46:00 Test Item Value Reference Range Interpretation Comments Urine culture (test SEE COMMENT Bacteriu lashell screen code = 6017957) negative. [facility]2022-09-19 15:46:00 Test Item Value Reference Range Interpretation Comments Urine culture (test SEE COMMENT Bacteriu lashell screen code = 0422689) negative. [facility]2022-09-19 15:46:00 Test Item Value Reference Range Interpretation Comments Urine culture (test SEE COMMENT Bacteriu lashell screen code = 2792489) negative. [facility]2022-09-19 15:46:00 Test Item Value Reference Range Interpretation Comments Urine culture (test SEE COMMENT Bacteriu lashell screen code = 5638059) negative. [facility]2022-09-19 15:46:00 Test Item Value Reference Range Interpretation Comments Urine culture (test SEE COMMENT Bacteriu lashell screen code = 3327745) negative. [facility] B surface [id number] 22:01:34 Test Item Value Reference Range Interpretation Comments Hep B S Ab (test code See_Comment [Auto mated = 62374-8) message] The system which generated this result transmit brad reference range : <8.0 mIU/mL. Th e reference range was not used to interpret this result as normal/abnormal . TALIB (test code = TALIB) Laundry Attendant ID - DB Lab Interpretation Normal (test code = 86876-2) [facility] B surface [id number] 22:01:34 Test Item Value Reference Range Interpretation Comments Hep B S Ab (test code <8.0 See_Comment [Auto mated = 18939-2) message] The system which generated this result transmit brad reference range : <8.0 mIU/mL. Th e reference range was not used to interpret this result as normal/abnormal . TALIB (test code = TALIB) Laundry Attendant ID - DB Lab Interpretation Normal (test code = 18167-7) [facility] B surface [id number] 22:01:34 Test Item Value Reference Range Interpretation Comments Hep B S Ab (test code <8.0 See_Comment [Auto mated = 19236-0) message] The system which generated this result transmit brad reference range : <8.0 mIU/mL. Th e reference range was not used to interpret this result as normal/abnormal . TALIB (test code = TALIB) Laundry Attendant ID - DB Lab Interpretation Normal (test code = 29714-2) [facility] B surface [id number] 22:01:34 Test Item Value Reference Range Interpretation Comments Hep B S Ab (test code <8.0 See_Comment [Auto mated = 75055-7) message] The system which generated this result transmit brad reference range : <8.0 mIU/mL. Th e reference range was not used to interpret this result as normal/abnormal . TALIB (test code = TALIB) Laundry Attendant ID - DB Lab Interpretation Normal (test code = 39659-9) [facility] B surface [id number] 22:01:34 Test Item Value Reference Range Interpretation Comments Hep B S Ab (test code <8.0 See_Comment [Auto mated = 93153-3) message] The system which generated this result transmit brad reference range : <8.0 mIU/mL. Th e reference range was not used to interpret this result as normal/abnormal . TALIB (test code = TALIB) Laundry Attendant ID - DB Lab Interpretation Normal (test code = 03279-5) [facility] B surface [id number] 22:01:34 Test Item Value Reference Range Interpretation Comments Hep B S Ab (test code <8.0 See_Comment [Auto mated = 99315-5) message] The system which generated this result transmit brad reference range : <8.0 mIU/mL. Th e reference range was not used to interpret this result as normal/abnormal . TALIB (test code = TALIB) Laundry Attendant ID - DB Lab Interpretation Normal (test code = 31384-8) [facility] B surface [id number] 22:01:34 Test Item Value Reference Range Interpretation Comments Hep B S Ab (test code <8.0 See_Comment [Auto mated = 59738-0) message] The system which generated this result transmit brad reference range : <8.0 mIU/mL. Th e reference range was not used to interpret this result as normal/abnormal . TALIB (test code = TALIB) Laundry Attendant ID - DB Lab Interpretation Normal (test code = 52692-7) [facility] [id number] 22:01:34 Test Item Value Reference Range Interpretation Comments HEPATITIS B SURFACE ANTIBODY < mIU/mL <8.0 (BEAKER) (test code = 647) Laundry Attendant ID - DBHepatitis B core antibody, [id number] 21:52:25 Test Item Value Reference Range Interpretation Comments Hep B C IgM (test code = Nonreactive Nonreactive 28355-8) TALIB (test code = TALIB) Laundry Attendant ID - DB Lab Interpretation (test Normal code = 55974-9) [facility], [id number] 21:52:25 Test Item Value Reference Range Interpretation Comments Hep B C IgM (test code = Nonreactive Nonreactive 33978-6) TALIB (test code = TALIB) Laundry Attendant ID - DB Lab Interpretation (test Normal code = 07486-3) [facility], [id number] 21:52:25 Test Item Value Reference Range Interpretation Comments Hep B C IgM (test code = Nonreactive Nonreactive 10070-2) TALIB (test code = TALIB) Laundry Attendant ID - DB Lab Interpretation (test Normal code = 35940-8) [facility] antibody, [id number] 21:52:25 Test Item Value Reference Range Interpretation Comments Hep B C IgM (test code = Nonreactive Nonreactive 59189-1) TALIB (test code = TALIB) Laundry Attendant ID - DB Lab Interpretation (test Normal code = 82891-5) [facility] antibody, [id number] 21:52:25 Test Item Value Reference Range Interpretation Comments Hep B C IgM (test code = Nonreactive Nonreactive 64320-6) TALIB (test code = TALIB) Laundry Attendant ID - DB Lab Interpretation (test Normal code = 71218-0) [facility], [id number] 21:52:25 Test Item Value Reference Range Interpretation Comments Hep B C IgM (test code = Nonreactive Nonreactive 56532-9) TALIB (test code = TALIB) Laundry Attendant ID - DB Lab Interpretation (test Normal code = 10538-9) [facility], [id number] 21:52:25 Test Item Value Reference Range Interpretation Comments Hep B C IgM (test code = Nonreactive Nonreactive 40170-3) TALIB (test code = TALIB) Laundry Attendant ID - DB Lab Interpretation (test Normal code = 65713-8) [facility], [id number] 21:52:25 Test Item Value Reference Range Interpretation Comments HEPATITIS B CORE IGM ANTIBODY Nonreactive Nonreactive (BEAKER) (test code = 645) Laundry Attendant ID - DBHepatitis B surface [id number] 21:52:19 Test Item Value Reference Range Interpretation Comments Hepatitis B surface Nonreactive Nonreactive antigen (test code = 5195-3) TALIB (test code = TALIB) Specimen is considered negative for HBsAg. Lab Interpretation (test Normal code = 90229-0) [facility] [id number] 21:52:19 Test Item Value Reference Range Interpretation Comments Hepatitis B surface Nonreactive Nonreactive antigen (test code = 5195-3) TALIB (test code = TALIB) Specimen is considered negative for HBsAg. Lab Interpretation (test Normal code = 41649-9) [facility] [id number] 21:52:19 Test Item Value Reference Range Interpretation Comments Hepatitis B surface Nonreactive Nonreactive antigen (test code = 5195-3) TALIB (test code = TALIB) Specimen is considered negative for HBsAg. Lab Interpretation (test Normal code = 56590-4) [facility] [id number] 21:52:19 Test Item Value Reference Range Interpretation Comments Hepatitis B surface Nonreactive Nonreactive antigen (test code = 5195-3) TALIB (test code = TALIB) Specimen is considered negative for HBsAg. Lab Interpretation (test Normal code = 10538-4) [facility] [id number] 21:52:19 Test Item Value Reference Range Interpretation Comments Hepatitis B surface Nonreactive Nonreactive antigen (test code = 5195-3) TALIB (test code = TALIB) Specimen is considered negative for HBsAg. Lab Interpretation (test Normal code = 42748-7) [facility] [id number] 21:52:19 Test Item Value Reference Range Interpretation Comments Hepatitis B surface Nonreactive Nonreactive antigen (test code = 5195-3) TALIB (test code = TALIB) Specimen is considered negative for HBsAg. Lab Interpretation (test Normal code = 88340-4) [facility] [id number] 21:52:19 Test Item Value Reference Range Interpretation Comments Hepatitis B surface Nonreactive Nonreactive antigen (test code = 5195-3) TALIB (test code = TALIB) Specimen is considered negative for HBsAg. Lab Interpretation (test Normal code = 78549-9) [facility] [id number] 21:52:19 Test Item Value Reference Range Interpretation Comments HEPATITIS B SURFACE ANTIGEN (2) Nonreactive Nonreactive (BEAKER) (test code = 2585) Specimen is considered negative for HBsAg.
[2022-09-29 18:07] LABS: Absolute Lymphocytes (CBC) 2.5 K/uL (0.7-4.9); Hematocrit 30.6 % (39.6-49.0); Lymphocytes % 25.7 % (15.3-44.8); MCV 88.3 fL (80-100); MPV 7.6 fL (7.6-11.3); RBC Red Blood Cell Count 3.46 M/uL (4.33-5.43)
[2022-09-29 18:23] LABS: Protime INR 0.95
[2022-09-29 18:32] LABS: Magnesium 1.9 mg/dL (1.6-2.4); Potassium 4.9 mEq/L (3.5-5.1); Troponin High Sensitivity 16.9 pg/mL (<58.9)
--- NOTE | 2022-09-29 19:26 | RAD REPORT ---
EXAM DESCRIPTION: Champ Single View09/29/2022 7:07 pm CLINICAL HISTORY: Chest pain COMPARISON: 2021 FINDINGS: The lungs appear clear of acute infiltrate. The heart is normal size IMPRESSION: No acute abnormalities displayed
--- NOTE | 2022-09-29 19:33 | ER ---
Nurse's Notes [facility] Name: Chava Pate Age: 47 yrs Sex: Male : 1975 Arrival Date: 09/29/2022 Time: 17:41 Bed 5 Private MD: Diagnosis: Chest pain, unspecified Presentation: 09/29 17:45 Chief complaint: Patient states: left sided chest pain since yesterday , consistent iw over past few hours. Coronavirus screen: At this time, the client does not indicate any symptoms associated with coronavirus-19. Ebola Screen: Patient negative for fever greater than or equal to 101.5 degrees Fahrenheit, and additional compatible Ebola Virus Disease symptoms Patient denies exposure to infectious person. Patient denies travel to an Ebola-affected area in the 21 days before illness onset. No symptoms or risks identified at this time. Initial Sepsis Screen: Does the patient meet any 2 criteria? No. Patient's initial sepsis screen is negative. Does the patient have a suspected source of infection? No. Patient's initial sepsis screen is negative. Risk Assessment: Do you want to hurt yourself or someone else? Patient reports no desire to harm self or others. Onset of symptoms was September 28, 2022. 17:45 Method Of Arrival: Ambulatory iw 17:45 Acuity: EDINSON 3 iw Historical: - Allergies: 17:46 No Known Allergies; iw - Home Meds: 18:15 carvedilol oral [Active]; gabapentin Oral [Active]; losartan oral [Active]; Zolpidem iw Tartrate Oral [Active]; - PMHx: 17:46 Diabetes - NIDDM; Dialysis; Hypertensive disorder; kidney disease; PERIPHERAL iw NEUROPATHY; - PSHx: 17:46 fistula L arm; iw - Immunization history:: Adult Immunizations up to date. - Social history:: Smoking status: . Screenin:21 [facility] ED Fall Risk Assessment (Adult) History of falling in the last 3 months, rv including since admission No falls in past 3 months (0 pts) Confusion or Disorientation No (0 pts) Intoxicated or Sedated No (0 pts) Impaired Gait No (0 pts) Mobility Assist Device Used No (0 pt) Altered Elimination No (0 pt) Score/Fall Risk Level 0 - 2 = Low Risk Oriented to surroundings, Maintained a safe environment, Educated pt \T\ family on fall prevention, incl call for assistance when getting out of bed, Assessed \T\ reinforced patient's understanding of fall precautions, Provided non-skid footwear, Hourly rounding (assess needs \T\ fall precautionary measures) done, Used ambulatory aids as needed (educated on \T\ assisted with), Used gait belt as appropriate. Abuse screen: Denies threats or abuse. Denies injuries from another. Nutritional screening: No deficits noted. Tuberculosis screening: No symptoms or risk factors identified. Assessment: 19:10 General: Appears in no apparent distress. comfortable, Behavior is calm, cooperative, jb4 appropriate for age. Pain: Complains of pain in chest Pain does not radiate. Pain currently is 6 out of 10 on a pain scale. Neuro: Level of Consciousness is awake, alert, obeys commands, Oriented to person, place, time, situation. Cardiovascular: Patient's skin is warm and dry. Respiratory: Airway is patent Respiratory effort is even, unlabored, Respiratory pattern is regular, symmetrical. GI: No signs and/or symptoms were reported involving the gastrointestinal system. : No signs and/or symptoms were reported regarding the genitourinary system. EENT: No signs and/or symptoms were reported regarding the EENT system. Derm: Skin is intact, Skin is pink, warm \T\ dry. Musculoskeletal: Circulation, motion, and sensation intact. Range of motion:. 20:22 Pain: Pain began suddenly. rv 20:22 Reassessment: Patient appears in no apparent distress at this time. Patient and/or jb4 family updated on plan of care and expected duration. Pain level reassessed. Patient is alert, oriented x 3, equal unlabored respirations, skin warm/dry/pink. Vital Signs: 17:45 BP 201 / 92; Pulse 89; Resp 16; Pulse Ox 98% on R/A; Weight 104.33 kg; Pain 6/10; iw 19:10 BP 174 / 88; Pulse 81; Resp 16; Pulse Ox 99% on R/A; jb4 20:00 BP 180 / 87; Pulse 80; Resp 16; Pulse Ox 98% on R/A; jb4 20:27 BP 168 / 66; Pulse 79; Resp 16; Pulse Ox 98% ; jb4 17:45 Pain Scale: Adult iw ED Course: 17:42 Patient arrived in ED. iw 17:42 Elizabeth Fofana FNP-C [facility] kb 17:42 Oscar Ruiz MD is Attending Physician. kb 17:46 Triage completed. iw 17:46 Arm band placed on. iw 19:04 Ronak Lemos, RN is Primary Nurse. jb4 19:08 XRAY Chest (1 view) In Process Unspecified. EDMS 19:33 Autumn Alaniz MD is Hospitalizing Provider. kb 20:21 No provider procedures requiring assistance completed. Patient maintains SpO2 rv saturation greater than 95% on room air. 20:22 Patient has correct armband on for positive identification. Client placed on continuous rv cardiac and pulse oximetry monitoring. NIBP monitoring applied. quality assurance monitor on. 20:48 Patient admitted, IV remains in place. jb4 Administered Medications: No medications were administered Medication: 20:21 VIS not applicable for this client. rv Outcome: 19:33 Decision to Hospitalize by Provider. kb 20:47 Admitted to Tele room 406, with chart. jb4 20:47 Condition: stable 20:47 Discharge instructions given to patient, Instructed on the need for admit, Demonstrated understanding of instructions. 20:48 Patient left the ED. jb4 Signatures: Dispatcher [employer] EDMS Elizabeth Fofana FNP-C DENTURES LAB TECHNICIAN-Ckb Latasha Walsh RN RN Ronak Lemos, RN RN jb4 Ross Smith RN RN rv Corrections: (The following items were deleted from the chart) 20:27 20:22 BP 180 / 87; Pulse 80bpm; Resp 16bpm; Pulse Ox 98% RA; jb4 jb4
--- NOTE | 2022-09-29 19:34 | EDPHYS ---
Physician Documentation [facility] Name: Chava Pate Age: 47 yrs Sex: Male : 1975 Arrival Date: 09/29/2022 Time: 17:41 Bed 5 Private MD: ED Physician Oscar Ruiz HPI: 09/29 20:19 This 47 yrs old Male presents to ER via Ambulatory with complaints of Chest kb Pain. 20:19 The patient or guardian reports chest pain that is located primarily in the anterior kb chest wall, left. Onset: yesterday. The pain does not radiate. Associated signs and symptoms: The patient has no apparent associated signs or symptoms. The chest pain is described as aching. Duration: The patient or guardian reports a single episode. Modifying factors: The symptoms are alleviated by nothing. the symptoms are aggravated by. Severity of pain: At its worst the pain was moderate in the emergency department the pain is unchanged. The patient has not experienced similar symptoms in the past. The patient has not recently seen a physician. 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 . Historical: - Allergies: 17:46 No Known Allergies; iw - Home Meds: 18:15 carvedilol oral [Active]; gabapentin Oral [Active]; losartan oral [Active]; Zolpidem iw Tartrate Oral [Active]; - PMHx: 17:46 Diabetes - NIDDM; Dialysis; Hypertensive disorder; kidney disease; PERIPHERAL iw NEUROPATHY; - PSHx: 17:46 fistula L arm; iw - Immunization history:: Adult Immunizations up to date. - Social history:: Smoking status: . ROS: 20:18 Constitutional: Negative for fever, chills, and weight loss. kb 20:18 Cardiovascular: Positive for chest pain, of the anterior aspect of left upper chest. 20:18 All other systems are negative. Exam: 20:18 Constitutional: This is a well developed, well nourished patient who is awake, alert, kb and in no acute distress. Head/Face: Normocephalic, atraumatic. ENT: Moist Mucous membranes Cardiovascular: Regular rate and rhythm with a normal S1 and S2. No gallops, murmurs, or rubs. No pulse deficits. Respiratory: Respirations even and unlabored. No increased work of breathing. Talking in full sentences Abdomen/GI: Soft, non-tender. No distention Skin: Warm, dry with normal turgor. Normal color. MS/ Extremity: Pulses equal, no cyanosis. Neurovascular intact. Full, normal range of motion. Neuro: Awake and alert, GCS 15, oriented to person, place, time, and situation. Moves all extremities. Normal gait. Vital Signs: 17:45 BP 201 / 92; Pulse 89; Resp 16; Pulse Ox 98% on R/A; Weight 104.33 kg; Pain 6/10; iw 19:10 BP 174 / 88; Pulse 81; Resp 16; Pulse Ox 99% on R/A; jb4 20:00 BP 180 / 87; Pulse 80; Resp 16; Pulse Ox 98% on R/A; jb4 20:27 BP 168 / 66; Pulse 79; Resp 16; Pulse Ox 98% ; jb4 17:45 Pain Scale: Adult iw MDM: 17:43 Patient medically screened. kb 20:18 Data reviewed: vital signs, nurses notes. kb 20:18 Differential diagnosis: abnormal EKG, acute myocardial infarction, coronary artery kb disease chest wall pain. Consideration of Admission/Observation Patient was admitted/placed on observation. Management of patient was discussed with the following: Hospitalist: AMARILIS Chahal accepts pt for admission under Dr Alaniz. dr ruiz recommends admission. Counseling: I had a detailed discussion with the patient and/or guardian regarding: the historical points, exam findings, and any diagnostic results supporting the discharge/admit diagnosis, lab results, radiology results, the need for further work-up and treatment in the hospital. 20:21 Scoring Tools HEART Score: Risk Factors: > or = 3 Risk factors for atherosclerotic kb disease (2), Total Score = 4. 09/29 17:46 Order name: Basic Metabolic Panel; Complete Time: 18:32 kb 09/29 17:46 Order name: CBC with Diff; Complete Time: 18:13 kb 09/29 17:46 Order name: Magnesium; Complete Time: 18:32 kb 09/29 17:46 Order name: NT PRO-BNP; Complete Time: 18:32 kb 09/29 17:46 Order name: PT-INR; Complete Time: 18:24 kb 09/29 17:46 Order name: Troponin HS; Complete Time: 18:32 kb 09/29 17:46 Order name: XRAY Chest (1 view); Complete Time: 19:31 kb 09/29 17:46 Order name: EKG; Complete Time: 17:47 kb 09/29 17:46 Order name: Cardiac monitoring; Complete Time: 19:04 kb 09/29 17:46 Order name: EKG - Nurse/Tech; Complete Time: 18:41 kb 09/29 17:46 Order name: IV Saline Lock; Complete Time: 18:08 kb 09/29 17:46 Order name: Labs collected and sent; Complete Time: 18:08 kb 09/29 17:46 Order name: O2 Per Protocol; Complete Time: 19:04 kb 09/29 17:46 Order name: O2 Sat Monitoring; Complete Time: 19:04 kb Administered Medications: No medications were administered Disposition Summary: 09/29/22 19:33 Hospitalization Ordered Hospitalization Status: Observation kb Provider: Autumn [facility]iz [facility] Condition: Stable kb Problem: new kb Symptoms: are unchanged kb Bed/Room Type: Standard Room Assignment: 406(09/29/22 20:26) cg Diagnosis - Chest pain, unspecified kb Forms: - Medication Reconciliation Form kb - SBAR form kb Addendum: 10/01/2022 09:01 Co-signature as Attending Physician, Oscar Ruiz MD I reviewed the patient's care r n provided by the Advanced Practice Provider and agree with the diagnosis and treatment plan. Signatures: Dispatcher [employer] Elizabeth Dejesus, DIAN-C ECONOMICS TEACHER-Ckb Irina Jiménez FNP-C ECONOMICS TEACHER-Csnw Latasha Walsh RN RN iw Nieto, Roman, MD MD rn Garcia, Cindy, RN RN cg Vicente, Ronaldo, RN RN rv Corrections: (The following items were deleted from the chart) 09/29 20:26 19:33 kb cg
[2022-09-29] MEDS ORDERED: HYDRALAZINE HCL 20 MG/ML VIAL ONE (20:31)
--- NOTE | 2022-09-29 20:38 | P.HP ---
Certification for Inpatient Patient admitted to: Observation With expected LOS: <2 Midnights Patient will require the following post-hospital care: None Practitioner: I am a practitioner with admitting privileges, knowledge of patient current condition, hospital course, and medical plan of care. Services: Services provided to patient in accordance with Admission requirements found in Title 42 Section 412.3 of the Code of Federal Regulations Patient History Date of Service: 09/29/22 Reason for admission: Chest pain History of Present Illness: 47-year-old male with history of insulin-dependent diabetes, ESRD on HD TTS, hyperlipidemia, PAD presents emergency department with chief complaint of chest pain. He reports intermittent chest pain over the course of last 2 days described as a sharp presents to the left anterior chest wall partially reproducible with palpation. He reports that he had stress test in May at the [facility] as he is working on getting onto the kidney transplant list. He was evaluated in the emergency department as labs are significant for initial high-sensitivity troponin of 16.9 BNP 1527 creatinine 6.05 sodium 135 chest x- ray was negative for acute findings EKG without STEMI criteria. ED provider wishes to admit patient under observation for ACS rule out. Allergies No Known Allergies Allergy (Verified 10/19/17 00:45) Home Medications: Cholecalciferol (Vitamin D3) [Vitamin D 5,000 IU Cap*] 5,000 unit PO DAILY #30 cap 09/06/21 carvediloL [Coreg*] 25 mg PO BID #60 tab 09/06/21 Gabapentin [Neurontin*] 100 mg PO BID 30 Days #90 cap 09/26/21 Docusate [Colace Cap*] 100 mg PO BID 12/14/21 Blood Sugar Diagnostic [Glucose Test Strip] 1 each MC 30 MIN BEFORE HS #100 strip 12/17/21 Diabetic Supplies,Miscell [Cequr Simplicity Aerodynamics Engineer] 1 each MC DAILY 30 Days 12/17/21 Furosemide [Lasix*] 40 mg PO BIDL #60 tab 12/17/21 Insulin Glargine,Hum.rec.anlog [Semglee] 20 unit SQ BEDTIME #10 ml 12/17/21 Lancets/Blood Glucose Strips [Gojji Lancet 30G-Gluc Tst Strp] 1 each MC 30 MIN BEFORE HS #100 strip 12/17/21 Amlodipine [Norvasc*] 10 mg PO DAILY 30 Days #30 tab 02/18/22 Calcitrol [Rocaltrol*] 2 cap PO DAILY 30 Days #60 cap 02/18/22 Calcium Acetate [Phoslo*] 667 mg PO TIDWM 30 Days #90 tab 02/18/22 Omeprazole [Prilosec] 40 mg PO DAILY 30 Days #30 cap 02/18/22 Losartan Potassium [Cozaar*] 100 mg PO DAILY #60 tab 08/08/22 Vitamin D [Drisdol*] 50,000 unit PO Q7D #4 cap 08/08/22 - Past Medical/Surgical History Diabetic: Yes -: DM II with Polyneuropathy -: HLD -: HTN -: ESRD/ CKD with Proteinura (Dr. Rojas) -: Diastolic CHF -: Left arm Fistual Psychosocial/ Personal History: Patient lives at home alone. - Family History Father -: Diabetes Mother -: Stroke - Social History Alcohol use: No CD- Drugs: No Caffeine use: No Place of Residence: Home Review of Systems 10-point ROS is otherwise unremarkable Cardiovascular: Chest Pain Physical Examination - Physical Exam General: Alert, In no apparent distress, Oriented x3 HEENT: Atraumatic, PERRLA, Mucous membr. moist/pink, EOMI, Sclerae nonicteric Neck: Supple, 2+ carotid pulse no bruit, No LAD, Without JVD or thyroid abnormality Respiratory: Clear to auscultation bilaterally, Normal air movement Cardiovascular: Regular rate/rhythm, Normal S1 S2 Capillary refill: <2 Seconds Gastrointestinal: Normal bowel sounds, No tenderness Musculoskeletal: No tenderness Integumentary: No rashes Neurological: Normal speech, Normal strength at 5/5 x4 extr, Normal tone, Normal affect - Studies Laboratory Data (last 24 hrs) 09/29/22 17:55: PT 10.4, INR 0.95 09/29/22 17:55: WBC 9.70, Hgb 10.5 L, Hct 30.6 L, Plt Count 245 09/29/22 17:55: Sodium 135 L, Potassium 4.9, BUN 49 H, Creatinine 6.05 H, Glucose 206 H, Magnesium 1.9 Assessment and Plan - Plan Assessment: Chest pain rule out ACS Chronic diastolic congestive heart failure ESRD on HD TTS PAD Hypertension Diabetes mellitus type 2insulin-dependent Plan: Chest pain rule out ACS Trend troponins, monitor on telemetry, cardiology consult in place. Had stress test in May which was reportedly normal at [facility] in preparation for getting on kidney transplant list. Appreciate further input from cardiology. Pain partially reproducible with palpation, described as sharp. Chronic diastolic congestive heart failure Does not appear grossly overloaded, continue on medications ESRD on HD TTS Nephrology consult in place, had dialysis on Friday which she did complete. PAD Continue aspirin, patient also reports he may take a Xarelto but is unsure of dose or frequency, will confirm home medications, continue if he does. Hypertension Continue home medications Diabetes mellitus type 2insulin-dependent ACHS Accu-Chek, sliding scale sent. DVT PPX: Heparin subcu Code status: Full code Discharge Plan: Home Plan to discharge in: 24 Hours - Advance Directives Does patient have a Living Will: No Does patient have a Durable POA for Healthcare: No - Code Status/Comfort Care Code Status Assessed: Yes (Full code) Critical Care: No Time Spent Managing Pts Care (In Minutes): 55
[2022-09-29] MEDS ORDERED: ONDANSETRON 4 MG/2 ML VIAL IV PRN (20:50)
[2022-09-29 20:57] VITALS: O2SAT 98
[2022-09-29] MEDS: INSULIN -REGULAR HUMAN 50 UNIT/0.5 ML ML SQ SCH (21:00)
[2022-09-30 06:26] LABS: Absolute Lymphocytes (CBC) 2.2 K/uL (0.7-4.9); Hematocrit 29.4 % (39.6-49.0); Lymphocytes % 28.9 % (15.3-44.8); MCV 87.9 fL (80-100); MPV 7.6 fL (7.6-11.3); RBC Red Blood Cell Count 3.34 M/uL (4.33-5.43)
[2022-09-30 06:48] LABS: Potassium 4.3 mEq/L (3.5-5.1)
[2022-09-30] MEDS: INSULIN -REGULAR HUMAN 50 UNIT/0.5 ML ML SQ SCH ×4 (07:30→19:45)
[2022-09-30 08:01] LABS: Urine Bacteria None Seen /HPF (<20); Urine Bilirubin NEGATIVE (Negative); Urine Blood 1+ (Negative); Urine Clarity Clear (Clear); Urine Color Light-Yellow (Yellow); Urine Glucose 3+ (Negative); Urine Mucus Slight /HPF (None Seen); Urine Protein 3+ (Negative); Urine RBC <5 /HPF (None Seen); Urine Urobilinogen Normal (Normal); Urine pH 6.5 (5.0-7.0)
[2022-09-30] MEDS: HEPARIN 5000 UNIT/ML 1 ML VIAL SQ SCH ×2 (08:19→19:45)
[2022-09-30] MEDS: ASPIRIN EC 81 MG TAB PO SCH (08:19)
[2022-09-30] MEDS: AMLODIPINE 10 MG TAB PO SCH (08:19)
[2022-09-30] MEDS: LOSARTAN POTASSIUM 50 MG TABLET PO SCH (08:19)
--- NOTE | 2022-09-30 09:30 | P.DS ---
Discharge Date: 09/30/22 Disposition: ROUTINE DISCHARGE Discharge Condition: GOOD Reason for Admission: Chest pain Brief History of Present Illness: Pt is a 47-year-old male with history of insulin-dependent diabetes, ESRD on HD TTS, hyperlipidemia, PAD presents emergency department with chief complaint of chest pain. He reports intermittent chest pain over the course of last 2 days described as a sharp presents to the left anterior chest wall partially r eproducible with palpation. He reports that he had stress test in May at the [facility] as he is working on getting onto the kidney transplant list. He was evaluated in the emergency department as labs are significant for initial high-sensitivity troponin of 16.9 BNP 1527 creatinine 6.05 sodium 135 chest x- ray was negative for acute findings EKG without STEMI criteria. ED provider wishes to admit patient under observation for ACS rule out. Hospital Course: Patient's troponins were negative. Recent echocardiogram was unremarkable. Patient will need to follow-up with cardiology as an outpatient. At this time patient is clinically doing well and patient is stable for discharge home with outpatient follow-up. Vital Signs/Physical Exam: Temp Pulse Resp BP Pulse Ox 97.6 F 52 16 131/52 L 100 09/30/22 08:00 09/30/22 08:19 09/30/22 08:00 09/30/22 08:19 09/30/22 08:00 General: Alert, In no apparent distress, Oriented x3 Laboratory Data at Discharge: WBC 7.70 thou/uL (4.3-10.9) 09/30/22 05:38 Hgb 10.2 g/dL (13.6-17.9) L 09/30/22 05:38 Hct 29.4 % (39.6-49.0) L 09/30/22 05:38 Plt Count 224 thou/uL (152-406) 09/30/22 05:38 PT 10.4 SECONDS (9.5-12.5) 09/29/22 17:55 INR 0.95 09/29/22 17:55 Sodium 137 mEq/L (136-145) 09/30/22 05:38 Potassium 4.3 mEq/L (3.5-5.1) 09/30/22 05:38 BUN 51 mg/dL (7-18) H 09/30/22 05:38 Creatinine 6.19 mg/dL (0.70-1.30) H 09/30/22 05:38 Glucose 142 mg/dL (74-106) H 09/30/22 05:38 Magnesium 1.9 mg/dL (1.6-2.4) 09/29/22 17:55 Home Medications: Gabapentin [Neurontin*] 100 mg PO BID 30 Days #90 cap 09/26/21 Blood Sugar Diagnostic [Glucose Test Strip] 1 each MC 30 MIN BEFORE HS #100 strip 12/17/21 Diabetic Supplies,Miscell [Cequr Simplicity News Clerk] 1 each MC DAILY 30 Days 12/17/21 Furosemide [Lasix*] 40 mg PO BIDL #60 tab 12/17/21 Insulin Glargine,Hum.rec.anlog [Semglee] 20 unit SQ BEDTIME #10 ml 12/17/21 Lancets/Blood Glucose Strips [[employer] Lancet 30G-Gluc Tst Strp] 1 each MC 30 MIN BEFORE HS #100 strip 12/17/21 Amlodipine [Norvasc*] 10 mg PO DAILY 30 Days #30 tab 02/18/22 Calcitrol [Rocaltrol*] 2 cap PO DAILY 30 Days #60 cap 02/18/22 Calcium Acetate [Phoslo*] 667 mg PO TIDWM 30 Days #90 tab 02/18/22 Omeprazole [Prilosec] 40 mg PO DAILY 30 Days #30 cap 02/18/22 Losartan Potassium [Cozaar*] 100 mg PO DAILY #60 tab 08/08/22 Vitamin D [Drisdol*] 50,000 unit PO Q7D #4 cap 08/08/22 Physician Discharge Instructions: -DC IV and DC home -Follow-up with PCP in 1 to 2 weeks -Follow-up with Cardiology in 1 to 2 weeks -Please call Dr. Alaniz at [phone] if any questions regarding hospital stay -Please call nursing station at [phone] if any nursing or medication questions -Return to the emergency room if symptoms worsen Diet: Renal Activity: Fall precautions Followup: Zeeshan Rojas DO [Primary Care Provider] - Time spent managing pt's care (in minutes): 35
--- NOTE | 2022-09-30 12:03 | EKG ---
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
--- NOTE | 2022-09-30 12:36 | P.PN ---
Subjective Date of Service: 09/30/22 Subjective: No new changes, No C/O voiced, Improving Review of Systems 10-point ROS is otherwise unremarkable Physical Examination - Vital Signs Temperature: 97.7 F Blood Pressure: 174/76 Pulse: 74 Respirations: 16 Pulse Ox (%): 100 - Physical Exam General: Alert, In no apparent distress, Oriented x3 HEENT: Atraumatic, PERRLA, EOMI Neck: Supple, JVD not distended Respiratory: Clear to auscultation bilaterally, Normal air movement Cardiovascular: Regular rate/rhythm, Normal S1 S2 Gastrointestinal: Normal bowel sounds, No tenderness Musculoskeletal: No tenderness Integumentary: No rashes Neurological: Normal speech, Normal tone, Normal affect Lymphatics: No axilla or inguinal lymphadenopathy - Studies Laboratory Data (last 24 hrs) 09/29/22 17:55: PT 10.4, INR 0.95 09/29/22 17:55: WBC 9.70, Hgb 10.5 L, Hct 30.6 L, Plt Count 245 09/29/22 17:55: Sodium 135 L, Potassium 4.9, BUN 49 H, Creatinine 6.05 H, Glucose 206 H, Magnesium 1.9 Medications List Reviewed: Yes Assessment & Plan - Problems (Diagnosis) (1) Chest pain Current Visit: No Status: Acute (2) ESRD (end stage renal disease) on dialysis Current Visit: No Status: Acute (3) Diabetes mellitus Onset Date: 10/20/17 Current Visit: No Status: Chronic Qualifiers: Diabetes mellitus type: type 2 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 insulin use: without remote computer terminal operator use Diabetes mellitus complication status: with hyperglycemia Qualified Code(s): E11.65 - Type 2 diabetes mellitus with hyperglycemia (4) Diabetic neuropathy Onset Date: 10/20/17 Current Visit: No Status: Chronic Qualifiers: (5) Hypertension Current Visit: No Status: Chronic Qualifiers: Hypertension type: primary hypertension Qualified Code(s): I10 - Essential (primary) hypertension (6) Obesity Current Visit: No Status: Chronic Qualifiers: Obesity type: due to excess calories (7) Type 2 diabetes mellitus Current Visit: No Status: Chronic Qualifiers: Diabetes mellitus care home insulin use: without care home use Diabetes mellitus complication status: with hyperglycemia Qualified Code(s): E11.65 - Type 2 diabetes mellitus with hyperglycemia - Plan Plan: 1. Stress test in a.m. 2. Continue with antiplatelet therapy 3. Statin therapy 4. Lipid profile 5. Dialysis per nephrology 6. GI and DVT prophylaxis Discharge Plan: Home Plan to discharge in: 24 Hours - Advance Directives Does patient have a Living Will: No Does patient have a Durable POA for Healthcare: No - Code Status/Comfort Care Code Status Assessed: Yes Code Status: Full Code Critical Care: No Time Spent Managing PTS Care (In Minutes): 35
--- NOTE | 2022-09-30 15:39 | P.CNS ---
Date of Consult: 09/30/22 Reason for Consult: ESRD Requesting Physician: Tirso Wilson Chief Complaint: Chest pain History of Present Illness: 47-year-old male with history of insulin-dependent diabetes with complications including PDR, PAD, ESRD initiated on HD last year dialyzing TTS at [facility] who presented yesterday to the emergency department with reports of intermittent left sided CP over the past several days or longer. Symptoms are reported as sharp, some radiation across chest, not necessarily exertional. He denies dyspnea. His BP on admission was accelerated. . Allergies No Known Allergies Allergy (Verified 10/19/17 00:45) Home Medications: Gabapentin [Neurontin*] 100 mg PO BID 30 Days #90 cap 09/26/21 Blood Sugar Diagnostic [Glucose Test Strip] 1 each MC 30 MIN BEFORE HS #100 strip 12/17/21 Diabetic Supplies,Miscell [Cequr [employer]plicity [employer] Messenger] 1 each MC DAILY 30 Days 12/17/21 Furosemide [Lasix*] 40 mg PO BIDL #60 tab 12/17/21 Insulin Glargine,Hum.rec.anlog [Semglee] 20 unit SQ BEDTIME #10 ml 12/17/21 Lancets/Blood Glucose Strips [[facility] Lancet 30G-Gluc Tst Strp] 1 each MC 30 MIN BEFORE HS #100 strip 12/17/21 Amlodipine [Norvasc*] 10 mg PO DAILY 30 Days #30 tab 02/18/22 Calcitrol [Rocaltrol*] 2 cap PO DAILY 30 Days #60 cap 02/18/22 Calcium Acetate [Phoslo*] 667 mg PO TIDWM 30 Days #90 tab 02/18/22 Omeprazole [Prilosec] 40 mg PO DAILY 30 Days #30 cap 02/18/22 Losartan Potassium [Cozaar*] 100 mg PO DAILY #60 tab 08/08/22 Vitamin D [Drisdol*] 50,000 unit PO Q7D #4 cap 08/08/22 - Past Medical/Surgical History Diabetic: Yes -: DM II with Polyneuropathy -: HLD -: HTN -: ESRD/ CKD with Proteinura (Dr. Rojas) -: Diastolic CHF -: Left arm Fistula Psychosocial/ Personal History: Patient lives at home alone. - Family History Father Medical History: Diabetes Mother Medical History: Stroke - Social History Smoking Status: Unknown if ever smoked Alcohol use: No CD- Drugs: No Caffeine use: No Place of Residence: Home Review of Systems General: Unremarkable Eyes: Unremarkable ENT: Unremarkable Respiratory: Shortness of Breath Cardiovascular: Chest Pain Gastrointestinal: Unremarkable Genitourinary: Unremarkable Musculoskeletal: Unremarkable Neurological: Unremarkable Lymphatics: Unremarkable Physical Examination Temp Pulse Resp BP Pulse Ox 97.7 F 74 16 174/76 H 100 09/30/22 12:35 09/30/22 12:35 09/30/22 12:35 09/30/22 12:35 09/30/22 12:35 General: Alert, In no apparent distress, Oriented x3 HEENT: Atraumatic, Normocephalic Neck: Supple Respiratory: Clear to auscultation bilaterally, Normal air movement Cardiovascular: No edema, Regular rate/rhythm Gastrointestinal: Soft and benign, Non-distended Musculoskeletal: No swelling, No contractures Integumentary: No rashes, No tenderness/swelling Neurological: Normal speech, Normal tone, Normal affect Laboratory Data (last 24 hrs) 09/29/22 17:55: PT 10.4, INR 0.95 09/29/22 17:55: WBC 9.70, Hgb 10.5 L, Hct 30.6 L, Plt Count 245 09/29/22 17:55: Sodium 135 L, Potassium 4.9, BUN 49 H, Creatinine 6.05 H, Glucose 206 H, Magnesium 1.9 Conclusions/Impression: A/P) 1. ESRD 2nd to DM/HTN -initiated on HD last year, last dialyzed on Sat at his OP clinic, metab chemistries stable. Next HD tmrw 2. Chest pain, unspecified. negative troponins but has cardiac risk factors and established vascular disease with PAD, so agree with stress testing and LHC if abnormal as pt also requires cardiac eval as part of transplant screening 3. Sub optimally controlled HTN with CKD -resumed pt's CCB and ARB medications, added Carvedilol which I believe pt has also been on. Need to target BP < 140/90 4. Type II DM with other complications -cont strict diabetic control 5. Anemia 2nd to CKD -Hb on admission > 10, trend Elliott Bajwa MD, EUGENIE
[2022-09-30] MEDS: carvediloL 12.5 MG TAB PO SCH (16:41)
[2022-09-30 21:34] LABS: Hepatitis B surface AG Interp. Nonreactive (Nonreactive)
[2022-09-30 22:07] VITALS: BMI 36.8
[2022-10-01 06:09] LABS: Absolute Lymphocytes (CBC) 2.1 K/uL (0.7-4.9); Hematocrit 34.3 % (39.6-49.0); Lymphocytes % 23.2 % (15.3-44.8); MCV 88.9 fL (80-100); MPV 7.7 fL (7.6-11.3); RBC Red Blood Cell Count 3.86 M/uL (4.33-5.43)
[2022-10-01 06:34] LABS: Potassium 4.8 mEq/L (3.5-5.1)
[2022-10-01] MEDS: INSULIN -REGULAR HUMAN 50 UNIT/0.5 ML ML SQ SCH ×3 (07:30→16:08)
[2022-10-01] MEDS ORDERED: REGADENOSON 0.4 MG/5 ML SYR IV ONE (08:00)
[2022-10-01] MEDS: ASPIRIN EC 81 MG TAB PO SCH (09:25)
[2022-10-01] MEDS: carvediloL 12.5 MG TAB PO SCH (09:25)
[2022-10-01] MEDS: HEPARIN 5000 UNIT/ML 1 ML VIAL SQ SCH (09:25)
[2022-10-01] MEDS: AMLODIPINE 10 MG TAB PO SCH (09:25)
[2022-10-01] MEDS: LOSARTAN POTASSIUM 50 MG TABLET PO SCH (09:25)
[2022-10-01 12:32] VITALS: BP 138/76; TEMP 98.1
--- NOTE | 2022-10-01 12:45 | RAD REPORT ---
EXAM DESCRIPTION: NM - Rest Stress Cardiac Imaging - 10/01/2022 8:39 am CLINICAL HISTORY: CP COMPARISON: No comparisons TECHNIQUE: The patient was administered approximately 10.5 mCi of Tc 99m Sestamibi prior to resting SPECT imaging of the heart. The patient was then administered approximately 31.2 mCi of Tc 99m Sestam ibi following exercise or pharmacologic stress. Multiplanar SPECT images were reviewed. FINDINGS: No stress induced ischemic defect is seen to suggest stress induced ischemia. Discontinuat ion regions of mildly decreased attenuation throughout the anterior, lateral, and the inferior wall, more pronounced on the rest images, likely related to diaphragmatic attenuation. No other fixed defec t is seen to suggest hibernating myocardium or scarred myocardium. The end diastolic volume is 174 ml, the end systolic volume is 90 ml, and the ejection fraction is 48 %. Inferior wall hypokinesia, more pronounced near the septum. IMPRESSION: No evidence of stress-induced myocardial ischemia. Likely artifactual regions of attenuated uptake as above. No findings to suggest a myocardial infarct . Reduced left ventricular ejection fraction, 48%, with inferior wall hypokinesia.
--- NOTE | 2022-10-01 15:32 | P.PN ---
Renal note (S) Delayed entry note, pt seen earlier this AM, CP-free, no dyspnea. (O) Vitals reviewed in the EMR General: Alert, In no apparent distress, Oriented x3 HEENT: Atraumatic, Normocephalic Neck: Supple Respiratory: Clear to auscultation bilaterally, Normal air movement Cardiovascular: No edema, Regular rate/rhythm Gastrointestinal: Soft and benign, Non-distended Musculoskeletal: No swelling, No contractures Integumentary: No rashes, No tenderness/swelling Neurological: Normal speech, Normal tone, Normal affect Laboratory Data (last 24 hrs) Reviewed in the EMR Conclusions/Impression: A/P) 1. ESRD 2nd to DM/HTN -initiated on HD last year, last dialyzed on Sat at his OP clinic, metab chemistries stable. Pt unable to receive HD this afternoon as acute HD RN was unable to cannulate pt's AVF which is patent but unsuccessful on needle cannulation. Spoke with pt's OP clinic and will arrange for make up chair there tmrw upon discharge so he can dialyze there tmrw where the techs are more familiar with his access. 2. Chest pain, unspecified. negative troponins but has cardiac risk factors and established vascular disease with PAD, so agred with stress testing which per hospitalist was reportedly neg. 3. Sub optimally controlled HTN with CKD -resumed pt's CCB and ARB medications, added Carvedilol which I believe pt has also been on. Need to target BP < 140/90. Fluid status acceptable, cont to maintain EDW 4. Type II DM with other complications -cont strict diabetic control 5. Anemia 2nd to CKD -Hb on admission > 10, trend Elliott Bajwa MD, EUGENIE
[2022-10-01] MEDS ORDERED: SODIUM ZIRCONIUM CYCLOSILICATE 10 GM/PKT PO ONE (16:03)
--- NOTE | 2022-10-02 09:01 | TREADPHA ---
DX: CHEST PAIN Date of Study: 10/01/2022 Ht: 5' 7 " Wt: 235 lb 0 oz Consulting Physician: SUKHJINDER MEDICATIONS: NORVASC, ASPIRIN, COREG, HEPARIN, COZAAR, ZOFRAN HISTORY: 47 YEAR OLD MALE WITH COMPLAINTS OF CHEST PAIN. HISTORY OF HYPERTENSION, CKD, DIALYSIS, PAD, DIABETES MELLITUS II, CONGESTIVE HEART FAILURE. DENIES SMOKING, ALCOHOL USE, DRUG USE OR PREVIOUS HEART SURGERIES. PHYSICIAL EXAMINATION: RESTING B.P.: 165/83 RESTING H.R.: 78 RESTING EKG: NORMAL PROTOCOL: LEXISCAN EXERCISE TIME: 3:30 B.P. AT PEAK STRESS: 157/60 IMPRESSION: LEXISCAN INJECTED FOLLOWED BY CARDIOLITE GIVEN PER PROTOCOL. SEE NUCLEAR MEDICINE REPORT. OCCASIONAL PREMATURE ATRIAL COMPLEXES NOTED PRIOR TO INJECTION. NO SUPRAVENTRICULAR OR VENTRICULAR TACHYCARDIA NOTED. NO PREMATURE VENTRICULAR COMPLEXES NOTED. DENIES CHEST PAIN OR SHORTNESS OF BREATH.
--- NOTE | 2022-10-02 12:13 | CON ---
Date of Consultation: 09/30/2022 Reason For Consultation: Chest pain. History Of Present Illness: Mr. Pate is 47. Has a history of end-stage renal disease, on hemodi alysis, diabetes, hypertension. Comes in with atypical chest pain. The chest pain is sharp, stabbin g, has been going on for 2 days consistently. It does not radiate and is not exertional. Denies linda sea, vomiting, diaphoresis, PND, orthopnea, pedal edema, palpitation, or syncope. Past Medical History: As stated above. Allergies: NO ALLERGIES. Review of Systems: He sees Dr. Romo. Social History: Negative. Medications: At home includes Norvasc, insulin, Lasix, and losartan. Family History: Negative. Physical Examination: Vital Signs: Blood pressure is 178/80, sinus rhythm, afebrile. HEENT: Negative. Neck: Supple with no bruit. Chest: Clear. Cardiac: Revealed S4 gallops. Regular rhythm and rate. Abdomen: Benign. Extremities: Revealed no clubbing, cyanosis, or edema. Diagnostic Data: Normal except for creatinine of 6.19. Impression And Plan: The patient with multiple cardiac risk factors including diabetes, hypertension , end-stage renal disease. Blood pressure is very uncontrolled and needs to have better controlled. Increase Norvasc, increase losartan, consider low-dose beta radu or hydralazine. Nevertheless, a Lexiscan is pending. We will see what that shows before making any further decisions. I assume thi s can be a normal Laverne. We will continue to follow. GREG/SONUL Voice ID: [id number] Report ID: [id number]
--- NOTE | 2022-10-02 13:02 | PN ---
Date of Progress Note: 10/01/2022 The patient is 47. Came in with very atypical chest pain, sharp, probably pleuritic or musculoskelet al on 10/01/2022. He underwent a Lexiscan that was normal without any evidence of ischemia. He does have a history of end-stage renal disease, diabetes, and hypertension. He sees Dr. Romo as an outpa tient. His pressure was rather elevated on the systolic side of 178. We can certainly increase the losartan, increase the Norvasc, may consider low-dose beta-radu, but as far as I am concerned, he can go home and he will be seen by the nephrologists and Dr. Romo in the near future. Cardiac gomez, he is cleared to go. GREG/MORENO Voice ID: [id number] Report ID: [id number]
== END 2022-10-01 16:20 | disposition home or self-care (01) ==
LOC: ER 17:41 → ERHOLD 20:05 → 4TH 20:37
PROVIDERS: ADMIT Hospitalist; ATTEND Hospitalist
DX: R07.9 Chest pain, unspecified (principal); E11.22 Type 2 diabetes mellitus with diabetic chronic kidney disease; I13.2 Hypertensive heart and chronic kidney disease with heart failure and with stage 5 chronic kidney disease, or end stage renal disease; I50.32 Chronic diastolic (congestive) heart failure; N18.6 End stage renal disease; Z99.2 Dependence on renal dialysis; Z79.4 Long term (current) use of insulin; E78.5 Hyperlipidemia, unspecified; I73.9 Peripheral vascular disease, unspecified; E11.40 Type 2 diabetes mellitus with diabetic neuropathy, unspecified; E66.9 Obesity, unspecified; Z68.36 Body mass index [BMI] 36.0-36.9, adult
CPT/HCPCS: 93005; 93017; 85025 ×3; 81001; 80048 ×3; 36415 ×2; 83735; 85610; 82947 ×8; 84484 ×3; 83880; 87340; 71045; 90935; 78452; 99285; J1815 ×2; J1644 ×3; J2785; J0360; A9500; G0378 ×4

== ENCOUNTER 2022-11-03 18:20 | Emergency (ER) | payer BC, OTHER ==
--- OUTSIDE RECORDS SUMMARY | 2022-11-03 18:25 | XMS REPORT | Continuity of Care Document ---
:1975 Author Organization [facility] t Address [address] [facility] [address] [place] [id number] Care Team Providers Name Role Phone RITA DEYURSTON Primary Care Physician Unavailable Gorge TOMLINC, Rochelle Gomez Attending Clinician [phone] Kamilla Tello MA Attending Clinician Unavailable Malorie Lopez MA Attending Clinician Unavailable Gisele Lynn MA Attending Clinician Unavailable Asked, No Pcp Attending Clinician Unavailable Tabatha Katz MA Attending Clinician Unavailable Antoinette MEDRANO, April Attending Clinician Unavailable Dyllan Albert MD Attending Clinician Carolyn Solorzano MD Attending Clinician [phone] Whitney Dow Attending Clinician Desi Cabrera [...] Added automatic ally from request for surgery [id number] No known No known Disease Unive rs active active ity of problems problems [facility] Allergies, Adverse Reactions, Alerts Allergy Allergy Status Severity Reaction(s) Onset Inactive Treating Comm ents Source Name Type Date Date Clinician NO KNOWN Drug Active Univers ALLERGIE Class ity of S [facility] Family History Family Member Diagnosis Comments Start Date Stop Date Source Natural father No Known Problems [facility] Natural mother Stroke [facility] Social History Social Habit Start Date Stop Date Quantity Comments Source Exposure to Not sure University SARS-CoV-2 (event) [facility] Gender identity [facility] Sexual orientation [facility] History of Social 2022-06-30 2022-06-[address] function 00:00:00 00:00:00 Hospital Alcohol intake 2022-02-05 2022-02-05 Lifetime [facility] 00:00:00 00:00:00 non-drinker Hospital (finding) Tobacco use and 2022-01-07 2022-01-07 Smokeless [facility] exposure 00:00:00 00:00:00 tobacco non-user Hospital Sex Assigned At [birth year] [facility] Smoking Status Start Date Stop Date Source Unknown if ever smoked [facility] Never smoked tobacco [facility] Medications Ordered Filled Start Stop Current Ordering Indication Dosage Frequency Signature Comments Components Source Medication Medication Date Date Medication? Clinician (SIG) Name Name calcitrioL Yes .5ug Take 2 Metho di (ROCALTROL) 10-[address] 0.25 MCG 13:53: (0.5 mcg Hospi ta capsule 51 total) by l mouth. docusate Yes 250mg Take 1 Method i sodium 10-[address] (COLACE) 13:53: (250 mg Hospit a 250 MG 51 total) by l capsule mouth. gabapentin Yes 100mg Q.5D Take 1 Meth brooke (NEURONTIN) - capsule st 100 mg 13:53: (100 mg Hospita capsule 51 total) by l mouth 2 (two) times a day. ergocalcife Yes Take by Met hodi rol, 7-[address] vitamin D2, 13:53: Hospit a (VITAMIN D2 51 l ORAL) vitamin B Yes QD Take by Metho di complex 10-[address] tablet 13:53: daily. Hospita extended 51 l release carvediloL 3-0 Yes 25mg Q.5D Take 1 Metho di (COREG) 25 7-06 tablet (25 st MG tablet 13:53: mg total) Hos kendall 51 by mouth 2 l (two) times a day with meals. tadalafil 2023-0 Yes 40mg Take 2 Method i (ADCIRCA, 7-[address] CIALIS) 20 13:53: (40 mg Hospi ta mg tablet 51 total) by l mouth as needed. omeprazole 3-0 Yes 20mg QD Take 1 Metho di (PriLOSEC) 7-[address] 20 MG 13:53: (20 mg Hospita capsule 51 total) by l mouth daily. aspirin 3-0 Yes 81mg QD Take 1 Methodi (ECOTRIN) 7-06 tablet (81 st 81 MG 13:52: mg total) Hospita enteric 20 by mouth l coated daily. tablet Xarelto 2.5 2022-0 Yes TAKE 1 Meth brooke mg tablet 6-[address] tablet 00:00: MOUTH Hospita 00 TWICE l DAILY FOR 6 MONTHS calcitrioL 2023-0 Yes .5ug Take 2 Metho di (ROCALTROL) 4-[address] 0.25 MCG 13:11: (0.5 mcg Hospi ta capsule 52 total) by l mouth. docusate 2022-0 Yes 250mg Take 1 Method i sodium 4-[address] (COLACE) 13:11: (250 mg Hospit a 250 MG 52 total) by l capsule mouth. gabapentin 3-0 Yes 100mg Q.5D Take 1 Meth brooke [...] daily. Hospita extended 52 l release carvediloL 3-0 Yes 25mg Q.5D Take 1 Metho di [...] capsule 52 total) by l mouth. docusate 2023-0 Yes 250mg Take 1 Method i sodium 4-[address] (COLACE) 13:11: (250 mg Hospit a 250 MG 52 total) by l capsule mouth. gabapentin 2023-0 Yes 100mg Q.5D Take 1 Meth brooke (NEURONTIN) 4-[address] 100 mg 13:11: (100 mg Hospita capsule 52 total) by l mouth 2 (two) times a day. ergocalcife 2022-0 Yes Take by Met hodi rol, 4-[address] vitamin D2, 13:11: Hospit a (VITAMIN D2 52 l ORAL) vitamin B 3-0 Yes QD Take by Metho di complex [...] 100mg Q.5D Take 1 Meth brooke (NEURONTIN) 04-[address] 100 mg 09:51: (100 mg [...] Q.5D Take 1 Metho di (COREG) 25 04-23 tablet (25 st MG tablet 09:51: mg total) Hos kendall 57 by mouth 2 l (two) times a day with meals. tadalafil Yes 40mg Take 2 Method i (ADCIRCA, -[address] CIALIS) 20 09:51: (40 mg [...] extended 59 l release traMAD[place] 2021- [place] [id number] 50mg Q6H Take 1 Metho di (Ultram) 50 01-0924 tablet (50 s t mg tablet 00:00: 04:59 mg total) Ho spita 00 :00 by mouth l every 6 (six) hours as needed for moderate pain for up to 2 days .acute pain. traMAD[place] 2021- [place] [id number] 50mg Q6H Take 1 Metho di (Ultram) 50 01-0924 tablet (50 s t mg tablet 00:00: 04:59 mg total) Ho spita 00 :00 by mouth l every 6 (six) hours as needed for moderate pain for up to 2 days .acute pain. traMADoL 2021- [place] [id number] 50mg Q6H Take 1 Metho di (Ultram) 50 01-0924 tablet (50 s t mg tablet 00:00: 04:59 mg total) Ho spita 00 :00 by mouth l every 6 (six) hours as needed for moderate pain for up to 2 days .acute pain. traMAD[place] 2021- [place] [id number] 50mg Q6H Take 1 Metho di (Ultram) 50 01-09-24 tablet (50 s t mg tablet 00:00: 04:59 mg total) Ho spita 00 :00 by mouth l every 6 (six) hours as needed for moderate pain for up to 2 days .acute pain. [place] 2021- [place] [id number] 50mg Q6H Take 1 Metho di (Ultram) 50 01-0924 tablet (50 s t mg tablet 00:00: 04:59 mg total) Ho spita 00 :00 by mouth l every 6 (six) hours as needed for moderate pain for up to 2 days .acute pain. [place]MAD[place] 2021- No [id number] 50mg Q6H Take 1 Metho di (Ultram) 50 01-0924 tablet (50 s t mg tablet 00:00: 04:59 mg total) Ho spita 00 :00 by mouth l every 6 (six) hours as needed for moderate pain for up to 2 days .acute pain. [place] 2021- [place] [id number] 50mg Q6H Take 1 Metho di (Ultram) 50 01-0924 tablet (50 s t mg tablet 00:00: 04:59 mg total) Ho spita 00 :00 by mouth l every 6 (six) hours as needed for moderate pain for up to 2 days .acute pain. [place] 2021- [place] [id number] 50mg Q6H Take 1 Metho di (Ultram) [...] 49 :00 total) by l mouth. glipiZIDE 0 2021- No 2.5mg Take 1 Meth brooke (GLUCOTROL) 01-[address] 2.5 MG 24 09:22: 00:00 (2.5 mg Hosp antione hr tablet 49 :00 total) by l mouth. glipiZIDE 0 2021- No 2.5mg Take 1 Meth brooke [...] spita 37 :00 by mouth. l carvediloL 2021-2021- No 25mg Take 1 Meth brooke (COREG) 25 9-19 09-19 tablet (25 st MG tablet 09:22: 00:00 mg total) Ho spita 37 :00 by mouth. l carvediloL 2021-2021- No 25mg Take 1 Meth brooke (COREG) 25 01-07 tablet (25 st MG tablet 09:22: 00:00 mg total) Ho spita 37 :00 by mouth. l carvediloL 2021-2021- No 25mg Take 1 Meth brooke (COREG) 25 01-07 tablet (25 st MG tablet 09:22: 00:00 mg total) Ho spita 37 :00 by mouth. l carvediloL 2021-2021- No 25mg Take 1 Meth brooke (COREG) 25 01-07 tablet (25 st MG tablet 09:22: 00:00 mg total) Ho spita 37 :00 by mouth. l carvediloL 2021-2021- No 25mg Take 1 Meth brooke (COREG) 25 01-07 tablet (25 st MG tablet 09:22: 00:00 mg total) Ho spita 37 :00 by mouth. l carvediloL 2021- No 25mg Take 1 Meth brooke (COREG) 25 01-07 tablet (25 st MG tablet 09:22: 00:00 mg total) Ho spita 37 :00 by mouth. l carvediloL 2021-2021- No 25mg Take 1 Meth [...] daily. insulin pen subcutaneou s pen furosemide 2021-0 Yes 40mg Q.5D Take 1 [...] 2 l (two) times a day. furosemide 202-0 Yes 40mg Q.5D Take 1 Metho di [...] (two) times a day. albuterol 2021-0 Yes [id number] 2{puff} Inhale 2 Univers 90 1-22 Puffs ity of mcg/actuati 00:00: every 4 Kj as on inhaler 00 (four) Medical hours as Branch needed for Wheezing or Shortness of Breath. proMETHazin 2021-0 Yes [id number] 25mg Take 1 Univers e 25 mg 1-22 tablet by ity of tablet 00:00: mouth [place] 00 every 6 Medical (six) Branch hours as needed for Nausea and Vomiting (N/V). albuterol 2021-0 Yes [id number] 2{puff} Inhale 2 Univers 90 1-22 Puffs ity of mcg/actuati 00:00: every 4 Kj as on inhaler 00 (four) Medical hours as Branch needed for Wheezing or Shortness of Breath. proMETHazin Yes [id number] 25mg Take 1 Univers e 25 mg -22 tablet by ity of tablet 00:00: mouth [place] 00 every 6 Medical (six) Branch hours as needed for Nausea and Vomiting (N/V). amoxicillin 2021- No [id number] 1{tbl} Take 1 Univers -clavulanat 05-1230 tablet [...] days. Indication s: COUGH amoxicillin 2021- No [id number] 1{tbl} Take 1 Univers -clavulanat 05-1230 tablet [...] 2021-05-12 134 mm[Hg] University of pressure 14:46:00 [facility] Diastolic blood 2021-05-12 66 mm[Hg] University o f pressure 14:46:00 [facility] Heart rate 2021-05-12 118 /min [facility] 14:46:00 [facility] Body temperature 2021-05-12 37.33 Chey [facility] 14:46:00 [facility] Respiratory rate 2021-05-12 22 /min [facility] 14:46:00 [facility] Body weight 2021-05-12 102.059 kg University 14:46:00 [facility] Oxygen saturation 2021-05-12 100 /min University of in Arterial blood 14:46:00 [facility] by Pulse oximetry [place] Systolic blood 2022-10-24 168 mm[Hg] [facility] pressure 18:50:00 [facility] Diastolic blood 2022-10-24 81 mm[Hg] [facility] pressure 18:50:00 Hospital Heart rate 2022-10-24 89 /min [facility] 18:50:00 Hospital Body temperature 2022-10-24 36.44 Chey [facility] 18:50:00 Hospital Body height 2022-10-24 172.7 cm [facility] 18:50:00 Hospital Body weight 2022-10-24 107.049 kg [facility] 18:50:00 [facility] BMI 2022-10-24 35.88 kg/m2 [facility] 18:50:00 [facility] Oxygen saturation 2022-10-24 96 /min [facility] in Arterial blood 18:50:00 Hospital by Pulse oximetry Systolic blood 2022-07-23 149 mm[Hg] [facility] pressure 18:08:00 Hospital Diastolic blood 2022-07-23 87 mm[Hg] [facility] pressure 18:08:00 Hospital Heart rate 2022-07-23 84 /min [facility] 18:08:00 Hospital Body temperature 2022-07-23 36.78 Chey [facility] 18:08:00 Hospital Body height 2022-07-23 172.7 cm [facility] 18:08:00 Hospital Body weight 2022-07-23 98.521 kg [facility] 18:08:00 Hospital BMI 2022-07-23 33.03 kg/m2 [facility] 18:08:00 Hospital Oxygen saturation 2022-07-23 97 /min [facility] in Arterial blood 18:08:00 Hospital by Pulse oximetry Systolic blood 2022-04-23 155 mm[Hg] did not take [facility] pressure 15:38:00 blood pressure Hospital medication Diastolic blood 2022-04-23 88 mm[Hg] did not take [facility] pressure 15:38:00 blood pressure Hospital medication Heart rate 2022-04-23 92 /min [facility] 15:38:00 Hospital Body temperature 2022-04-23 36.67 Chey [facility] 15:38:00 Hospital Body height 2022-04-23 172.7 cm [facility] 15:38:00 Hospital Body weight 2022-04-23 97.433 kg [facility] 15:38:00 Hospital BMI 2022-04-23 32.66 kg/m2 [facility] 15:38:00 Hospital Oxygen saturation 2022-04-23 98 /min [facility] in Arterial blood 15:38:00 Hospital by Pulse oximetry Systolic blood 2022-02-07 182 mm[Hg] [facility] pressure 20:01:00 Hospital Diastolic blood 2022-02-07 92 mm[Hg] [facility] pressure 20:01:00 Hospital Heart rate 2022-02-07 89 /min [facility] 20:01:00 Hospital Body temperature 2022-02-07 36.44 Chey [facility] 20:01:00 Hospital Body height 2022-02-07 172.7 cm [facility] 20:01:00 Hospital Body weight 2022-02-07 107.049 kg [facility] 20:01:00 [facility] BMI 2022-02-07 35.88 kg/m2 [facility] 20:01:00 Hospital Oxygen saturation 2022-02-07 98 /min [facility] in Arterial blood 20:01:00 Hospital by Pulse oximetry Systolic blood 2022-01-09 147 mm[Hg] [facility] pressure 21:30:00 Hospital Diastolic blood 2022-01-09 85 mm[Hg] [facility] pressure 21:30:00 Hospital Heart rate 2022-01-09 92 /min [facility] 21:30:00 Hospital Body temperature 2022-01-09 36.56 Chey [facility] 21:30:00 [facility] Oxygen saturation 2022-01-09 99 /min [facility] in Arterial blood 21:30:00 Hospital by Pulse oximetry Respiratory rate 2022-01-09 18 /min [facility] 21:30:00 Hospital Body height 2022-01-09 172.7 cm [facility] 13:28:00 [facility] Body weight 2022-01-09 103.874 kg [facility] 13:28:00 Hospital BMI 2022-01-09 34.82 kg/m2 [facility] 13:28:00 Hospital Procedures Procedure Date / Time Performing Clinician Source Performed US CAROTID DUPLEX 2022-04-11 18:00:00 Rochelle Pennington [facility] POC GLUCOSE 2022-01-09 20:58:00 Dyllan Albert POC GLUCOSE 2022-01-09 20:02:00 Dyllan Albert DE AN ELECTIVE 2022-01-09 17:35:00 Carolyn Solorzano spital SUPRAGLOTTIC AIRWAY Donna BELLE, AV FISTULA 2022-01-09 17:26:00 Shahana [facility] ESTIMATED GFR 2022-01-09 13:43:00 Dyllan Alberttal POC PANEL 2022-01-09 13:43:00 Dyllan Albert spital ABO AND RH CONFIRMATION 2022-01-09 13:40:00 Shahana [facility] BY PROTOCOL XR CHEST 2 VW 2022-01-07 15:20:51 Dyllan Albert susie ECG PRE/POST OP 2022-01-07 14:56:02 Dyllan Albert COVID-19 QUALITATIVE 2022-01-07 14:34:00 Shahana [facility] RT-PCR URINE CULTURE 2022-01-07 14:33:00 Dyllan Albert [facility] URINALYSIS SCREEN AND 2022-01-07 14:33:00 Shahana [facility] MICROSCOPY, WITH REFLEX TO CULTURE COMPREHENSIVE METABOLIC 2022-01-07 14:33[facility] Coleman ESTIMATED GFR 2022-01-07 14:33:00 Catia Merino [facility] Ramon Coleman PARTIAL THROMBOPLASTIN 2022-01-07 14:05:00 Shahana [facility] TIME (PTT) PROTHROMBIN TIME WITH INR 2022-01-07 14:05:00 Shahana Dyllan [facility] CBC WITH PLATELET AND 2022-01-07 14:05:00 Shahana [facility] DIFFERENTIAL TYPE AND SCREEN 2022-01-07 14:05:00 [facility] 2022-01-07 14:05:00 Catia Merino [facility] Ramon Coleman HEPATITIS B SURFACE 2021-09-06 05:47:00 [facility] ANTIGEN Center HEPATITIS B SURFACE 2021-09-06 05:47:00 [facility] ANTIBODY [place] HEPATITIS B CORE 2021-09-06 05:47:[address] [facility] ANTIBODY, IGM Center XR CHEST 2 VW 2021-05-12 16:27:08 Turner Garcia [facility] RAPID INFLUENZA A/B 2021-05-12 15:13:00 Turner Garcia [facility] NOTICE OF PRIVACY 2021-05-12 14:43:20 Doctor Unassigned, [facility] PRACTICES [place] [facility] CONSENT/REFUSAL FOR 2021-05-12 14:43:06 Doctor Unassigned, [facility] DIAGNOSIS AND TREATMENT [place] [facility] Plan of Care Planned Activity Planned Date Details Comments Source Future Scheduled 2022-12-[address] [facility] Test 00:00:00 (Season Ended) [code = Medic al Center INFLUENZA VACCINE (Season Ended)] Future Scheduled 2022-12-[address] [facility] Test 00:00:00 (Season Ended) [code = Medic al Center INFLUENZA VACCINE (Season Ended)] Future Scheduled 2022-10-25 [facility] Test 16:31:09 malignant neoplasm of colon (procedure) [code = 860733841] Future Scheduled 2022-10-25 [facility] Test 16:31:09 malignant neoplasm of colon (procedure) [code = 685995614] Future Scheduled 2022-10-25 [facility] Test 16:31:09 malignant neoplasm of colon (procedure) [code = 042741138] Future Scheduled 2022-10-25 Pneumococcal Vaccine: [facility] Test 16:31:09 Pediatrics (0 to 5 Years) and At-Risk Patients (6 to 64 Years) (1 - PCV) [code = Pneumococcal Vaccine: Pediatrics (0 to 5 Years) and At-Risk Patients (6 to 64 Years) (1 - PCV)] Future Scheduled 2022-10-25 Hepatitis C screening [facility] Test 16:31:09 (procedure) [code = 141512774] Future Scheduled 2022-10-25 COVID-19 VACCINE (3 - [facility] Test 16:31:09 Moderna series) [code = COVID-19 VACCINE (3 - Moderna series)] Future Scheduled 2022-10-25 [facility] Test 16:31:09 malignant neoplasm of colon (procedure) [code = 734973942] Future Scheduled 2022-10-25 [facility] Test 16:31:09 malignant neoplasm of colon (procedure) [code = 814039511] Future Scheduled 2022-10-25 INFLUENZA VACCINE [facility] Test 16:31:09 [code = INFLUENZA VACCINE] Future Scheduled 2022-09-28 [facility] Test 22:18:06 malignant neoplasm of colon (procedure) [code = 259012743] Future Scheduled 2022-09-28 [facility] Test 22:18:06 malignant neoplasm of colon (procedure) [code = 985004861] Future Scheduled 2022-09-28 [facility] Test 22:18:06 malignant neoplasm of colon (procedure) [code = 196156843] Future Scheduled 2022-09-28 Pneumococcal Vaccine: [facility] Test 22:18:06 Pediatrics (0 to 5 Years) and At-Risk Patients (6 to 64 Years) (1 - PCV) [code = Pneumococcal Vaccine: Pediatrics (0 to 5 Years) and At-Risk Patients (6 to 64 Years) (1 - PCV)] Future Scheduled 2022-09-28 Hepatitis C screening [facility] Test 22:18:06 (procedure) [code = 662912843] Future Scheduled 2022-09-28 COVID-19 VACCINE (3 - [facility] Test 22:18:06 Moderna series) [code = COVID-19 VACCINE (3 - Moderna series)] Future Scheduled 2022-09-28 [facility] Test 22:18:06 malignant neoplasm of colon (procedure) [code = 430381078] Future Scheduled 2022-09-28 [facility] for [facility] Test 22:18:06 malignant neoplasm of colon (procedure) [code = 029431707] Future Scheduled 2022-09-28 INFLUENZA VACCINE Method [facility] Test 22:18:06 [code = INFLUENZA VACCINE] Future Scheduled 2022-07-23 Pneumococcal Vaccine: [facility] Test 13:39:42 Pediatrics (0 to 5 Years) and At-Risk Patients (6 to 64 Years) (1 - PCV) [code = Pneumococcal Vaccine: Pediatrics (0 to 5 Years) and At-Risk Patients (6 to 64 Years) (1 - PCV)] Future Scheduled 2022-07-23 Hepatitis C screening [facility] Test 13:39:42 (procedure) [code = 600457836] Future Scheduled 2022-07-23 COVID-19 VACCINE (3 - [facility] Test 13:39:42 Booster for Moderna series) [code = COVID-19 VACCINE (3 - Booster for Moderna series)] Future Scheduled 2022-07-23 COLONOSCOPY SCREENING [facility] Test 13:39:42 [code = COLONOSCOPY SCREENING] Future Scheduled 2022-07-23 INFLUENZA VACCINE Method [facility] Test 13:39:42 [code = INFLUENZA VACCINE] Future Scheduled 2022-06-16 COVID-19 VACCINE (#1) [facility] Test 21:38:44 [code = COVID-19 VACCINE (#1)] Future Scheduled 2022-06-16 Pneumococcal Vaccine: [facility] Test 21:38:44 Pediatrics (0 to 5 Years) and At-Risk Patients (6 to 64 Years) (1 - PCV) [code = Pneumococcal Vaccine: Pediatrics (0 to 5 Years) and At-Risk Patients (6 to 64 Years) (1 - PCV)] Future Scheduled 2022-06-16 Hepatitis C screening [facility] Test 21:38:44 (procedure) [code = 430912300] Future Scheduled 2022-06-16 COLONOSCOPY SCREENING [facility] Test 21:38:44 [code = COLONOSCOPY SCREENING] Future Scheduled 2022-06-16 INFLUENZA VACCINE Method [facility] Test 21:38:44 [code = INFLUENZA VACCINE] Future [...] Future Scheduled 2022-02-28 HEPATITIS B VACCINES [facility] Test 10:00:19 (1 of 3 - 3-dose series) [code = HEPATITIS B VACCINES (1 of 3 - 3-dose series)] Future Scheduled 2022-02-28 COVID-19 VACCINE (#1) [facility] Test 10:00:19 [code = COVID-19 VACCINE (#1)] Future Scheduled 2022-02-28 Pneumococcal Vaccine: [facility] Test 10:00:19 Pediatrics (0 to 5 Years) and At-Risk Patients (6 to 64 Years) (1 - PCV) [code = Pneumococcal Vaccine: Pediatrics (0 to 5 Years) and At-Risk Patients (6 to 64 Years) (1 - PCV)] Future Scheduled 2022-02-28 Hepatitis C screening [facility] Test 10:00:19 (procedure) [code = 935431194] Future Scheduled 2022-02-28 COLONOSCOPY SCREENING [facility] Test 10:00:19 [code = COLONOSCOPY SCREENING] Future Scheduled 2022-02-28 INFLUENZA VACCINE Method [facility] Test 10:00:19 [code = INFLUENZA VACCINE] Future Scheduled 2022-02-12 HEPATITIS B VACCINES Met [facility] Test 07:56:41 (1 of 3 - 3-dose series) [code = HEPATITIS B VACCINES (1 of 3 - 3-dose series)] Future Scheduled 2022-02-12 COVID-19 VACCINE (#1) [facility] Test 07:56:41 [code = COVID-19 VACCINE (#1)] Future Scheduled 2022-02-12 Pneumococcal Vaccine: [facility] Test 07:56:41 Pediatrics (0 to 5 Years) and At-Risk Patients (6 to 64 Years) (1 - PCV) [code = Pneumococcal Vaccine: Pediatrics (0 to 5 Years) and At-Risk Patients (6 to 64 Years) (1 - PCV)] Future Scheduled 2022-02-12 Hepatitis C screening [facility] Test 07:56:41 (procedure) [code = 880483429] Future Scheduled 2022-02-12 COLONOSCOPY SCREENING [facility] Test 07:56:41 [code = COLONOSCOPY SCREENING] Future Scheduled 2022-02-12 INFLUENZA VACCINE Method [facility] Test 07:56:41 [code = INFLUENZA VACCINE] Future Scheduled 2022-02-07 HEPATITIS B VACCINES Met [facility] Test 15:27:38 (1 of 3 - 3-dose series) [code = HEPATITIS B VACCINES (1 of 3 - 3-dose series)] Future Scheduled 2022-02-07 COVID-19 VACCINE (#1) [facility] Test 15:27:38 [code = COVID-19 VACCINE (#1)] Future Scheduled 2022-02-07 Pneumococcal Vaccine: [facility] Test 15:27:38 Pediatrics (0 to 5 Years) and At-Risk Patients (6 to 64 Years) (1 - PCV) [code = Pneumococcal Vaccine: Pediatrics (0 to 5 Years) and At-Risk Patients (6 to 64 Years) (1 - PCV)] Future Scheduled 2022-02-07 Hepatitis C screening [facility] Test 15:27:38 (procedure) [code = 405233087] Future Scheduled 2022-02-07 COLONOSCOPY SCREENING [facility] Test 15:27:38 [code = COLONOSCOPY SCREENING] Future Scheduled 2022-02-07 INFLUENZA VACCINE Method [facility] Test 15:27:38 [code = INFLUENZA VACCINE] Future Scheduled 2022-01-25 HEPATITIS B VACCINES Met [facility] Hospital Test 11:11:15 (1 of 3 - 3-dose series) [code = HEPATITIS B VACCINES (1 of 3 - 3-dose series)] Future Scheduled 2022-01-25 COVID-19 VACCINE (#1) [facility] Test 11:11:15 [code = COVID-19 VACCINE (#1)] Future Scheduled 2022-01-25 Pneumococcal Vaccine: [facility] Test 11:11:15 Pediatrics (0 to 5 Years) and At-Risk Patients (6 to 64 Years) (1 - PCV) [code = Pneumococcal Vaccine: Pediatrics (0 to 5 Years) and At-Risk Patients (6 to 64 Years) (1 - PCV)] Future Scheduled 2022-01-25 Hepatitis C screening [facility] Test 11:11:15 (procedure) [code = 545139360] Future Scheduled 2022-01-25 COLONOSCOPY SCREENING [facility] Test 11:11:15 [code = COLONOSCOPY SCREENING] Future Scheduled 2022-01-25 INFLUENZA VACCINE Method [facility] Test 11:11:15 [code = [...] Test 00:00:00 (procedure) [code = Medical Center [id number]] Future Scheduled [address] [facility] Test 00:00:00 (procedure) [code = [facility] Center 73980196] Future Scheduled [address] [facility] 00:00:00 (procedure) [code = [facility] Center 68091761] Future Scheduled [address] [facility] 00:00:00 (procedure) [code = [facility] Center 96257035] Future Scheduled [address] [facility] 00:00:00 (procedure) [code = Medical Center 54788279] Future Scheduled [address] [facility] 00:00:00 (procedure) [code = [facility] 33598925] Future Scheduled [address] [facility] 00:00:00 (procedure) [code = [facility] 77742668] Future Scheduled [address] [facility] 00:00:00 (procedure) [code = [facility] 91952454] Future Scheduled 1995 DTAP/TDAP/TD VACCINES [facility] [...] [facility] colon (procedure) [code = 414855094] Future Scheduled [address] [facility] colon (procedure) [code = 232462538] Future Scheduled [address] [facility] 00:[facility] colon (procedure) [code = 125665003] Future Scheduled [address] [facility] 00:[facility] colon (procedure) [code = 949300673] Future Scheduled 1976 [facility] Future Scheduled [address] [facility] 00:00:00 (combo) [code = CT Medical C enter Colonography (combo)] Future Scheduled [address] [facility] 00:[facility] colon (procedure) [code = 814479234] Future Scheduled [address] [facility] 00:00:00 [facility] colon (procedure) [code = 831626294] Future Scheduled [address] [facility] 00:00:00 [facility] colon (procedure) [code = 467895869] Future Scheduled [address] [facility] 00:00:[facility] colon (procedure) [code = 119508635] Future Scheduled 1976 S[facility]] Medical Chiragcitlali r Future Scheduled [address] [facility] 00:00:00 (combo) [code = CT Medical C enter Colonography (combo)] Future Scheduled [address] [facility] 00:00:[facility] colon (procedure) [code = 476188995] Future Scheduled [address] [facility] 00:00:00 [facility] colon (procedure) [code = 938268804] Future Scheduled [address] [facility] 00:00:00 [facility] colon (procedure) [code = 877312441] Future Scheduled [address] [facility] 00:00:[facility] colon (procedure) [code = 197871645] Future Scheduled 1976 [facility]] Medical Chirage r Future Scheduled [address] [facility] 00:00:00 (combo) [code = CT Medical C enter Colonography (combo)] Future Scheduled [address] [facility] 00:00:[facility] colon (procedure) [code = 557452134] Future Scheduled [address] [facility] 00:00:00 [facility] colon (procedure) [code = 168815071] Future Scheduled [address] [facility] 00:00:00 [facility] colon (procedure) [code = 812927954] Future Scheduled [address] [facility] 00:00:[facility] colon (procedure) [code = 589887420] Future Scheduled 1976 [facility]] Medical Bon r Future Scheduled [address] [facility] 00:00:00 (combo) [code = CT Medical C enter Colonography (combo)] Future Scheduled [address] [facility] 00:00:00 [facility] colon (procedure) [code = 329713790] Future Scheduled [address] [facility] 00:00:00 [facility] colon (procedure) [code = 230801206] Future Scheduled [address] [facility] 00:00:00 [facility] colon (procedure) [code = 490465144] Future Scheduled [address] [facility] 00:00:00 [facility] colon (procedure) [code = 059568121] Future Scheduled 1976 [facility]] [facility] Cent[facility] Future Scheduled [address] [facility] 00:00:00 (combo) [code = CT Medical C enter Colonography (combo)] Future Scheduled [address] [facility] 00:00:00 [facility] colon (procedure) [code = 884872412] Future Scheduled [address] [facility] 00:00:00 [facility] colon (procedure) [code = 664470712] Future Scheduled [address] [facility] 00:00:00 [facility] colon (procedure) [code = 267330537] Future Scheduled [address] [facility] 00:00:00 [facility] colon (procedure) [code = 172604060] Future Scheduled 1976 [facility] Future Scheduled [address] [facility] 00:00:00 (combo) [code = CT Medical C enter Colonography (combo)] Future Scheduled [address] [facility] 00:00:00 [facility] colon (procedure) [code = 679780490] Future Scheduled [address] [facility] 00:00:00 [facility] colon (procedure) [code = 104703311] Future Scheduled [address] [facility] 00:00:00 [facility] colon (procedure) [code = 789378638] Future Scheduled [address] [facility] 00:00:00 [facility] colon (procedure) [code = 464727014] Future Scheduled 1976 [facility] Cent[facility] Future Scheduled [address] [facility] 00:00:00 (combo) [code = CT Medical C enter Colonography (combo)] Future Scheduled [address] [facility] 00[facility]00:00 [facility] of [facility] colon (procedure) [code = 986565591] Future Scheduled [address] [facility] 00:00:00 [facility] of [facility] colon (procedure) [code = 274392403] Future Scheduled [address] [facility] 00:00:00 [facility] ne[facility] of [facility] colon (procedure) [code = 683826436] Future Scheduled [address] [facility] 00:00:00 malignant neoplasm of [facility] colon (procedure) [code = 697394198] Future Scheduled 1976 [facility]] Medical Cente r Encounters Start End Encounter Admission Attending Care Care Encounter Source Date/Time Date/Time Type Type Clinicians Facility Department ID 2022-10-24 2022-10-24 Office Gorge, 1.2.840.1 [id number] Methodi 13:30:00 14:37:52 Visit Rochelle 99884.1.[address] [place] 3.430.2.7 Hosp antione .3.711505 l .8 2022-10-24 2022-10-24 Outpatient [facility] [id number] [address] [place] 00:00:00 00:00:[address] 2022-07-23 2022-07-23 Office Gorge, 1.2.840.1 [id number] Methodi 13:00:00 13:40:09 Visit Rochelle 26263.1.[address] [place] 3.430.2.7 Hosp antione .3.196638 l .8 2022-07-23 2022-07-23 Office [place]orge 1.2.840.1 [id number] 1697 Methodi 13:00:00 13:40:09 Visit Rochelle 35295.1.[address] [place] 3.430.2.7 Hosp antione .3.201403 l .8 2022-07-23 2022-07-23 Travel 1.2.840.1 1.2.053.547 6527 857065 Methodi 00:00:00 00:00:[address] 3.430.2.7 0.2.7.3.698 Ho spita .3.790498 084.8 l .8 2022-07-23 2022-07-23 Travel 1.2.840.1 1.2.351.394 8523 994376 Methodi 00:00:00 00:00:[address] 3.430.2.7 0.2.7.3.698 Ho spita .3.806328 084.8 l .8 2022-04-23 2022-04-23 Office Gorge, 1.2.840.1 [id number] 0304 Methodi 10:00:00 10:47:08 Visit Rochelle 26092.1.[address] [place] 3.430.2.7 Hosp antione .3.001439 l .8 2022-04-23 2022-04-23 Office [place], 1.2.840.1 [id number] 7282 Methodi 10:00:00 10:47:08 Visit Rochelle 84219.1.[address] [place] 3.430.2.7 Hosp antione .3.729181 l .8 2022-04-23 2022-04-23 Travel 1.2.840.1 1.2.837.637 6673 [id number] Methodi 00:00:00 00:00:[address] 3.430.2.7 0.2.7.3.698 Ho spita .3.781899 084.8 l .8 2022-04-23 2022-04-23 Travel 1.2.840.1 1.2.793.873 5065 468939 Methodi 00:00:00 00:00:[address] 3.430.2.7 0.2.7.3.698 Ho spita .3.205606 084.8 l .8 2022-04-19 2022-04-19 Telephone [place], 1.2.840.1 [id number] 2100 [id number] Methodi 00:00:00 00:00:[address] [place] 3.430.2.7 Hosp antione .3.899345 l .8 2022-04-19 2022-04-19 Telephone [place], 1.2.840.1 [id number] 2099 [id number] Methodi 00:00:00 00:00:[address] [place] 3.430.2.7 Hosp antione .3.128446 l .8 2022-04-18 2022-04-18 Telephone Omer, 1.2.840.1 [id number] Methodi 00:00:00 00:00:[address] 3.430.2.7 Hospit a .3.720767 l .8 2022-04-18 2022-04-18 Telephone Omer, 1.2.840.1 [id number] Methodi 00:00:00 00:00:[address] 3.430.2.7 Hospit a .3.311120 l .8 2022-04-12 2022-04-12 Telephone Gorge, 1.2.840.1 [id number] 2099 [id number] Methodi 00:00:00 00:00:[address] [place] 3.430.2.7 Hosp antione .3.512890 l .8 2022-04-12 2022-04-12 Telephone Gorge, 1.2.840.1 [id number] 2099 [id number] Methodi 00:00:00 00:00:[address] [place] 3.430.2.7 Hosp antione .3.718746 l .8 2022-04-11 2022-04-11 Office [place], 1.2.840.1 [id number] 1824 Methodi 13:00:00 13:44:34 Visit Rochelle 52880.1.[address] [place] 3.430.2.7 Hosp antione .3.001373 l .8 2022-04-11 2022-04-11 Office [place], 1.2.840.1 [id number] 7701 Methodi 13:00:00 13:44:34 Visit Rochelle 65815.1.[address] [place] 3.430.2.7 Hosp antione .3.111386 l .8 2022-04-11 2022-04-11 Outpatient [facility] [id number] [address] [place] 00:00:00 00:00:[address] 2022-04-11 2022-04-11 Telephone [place], 1.2.840.1 [id number] Methodi 00:00:00 00:00:[address] [place] 3.430.2.7 Hosp antione .3.316827 l .8 2022-04-11 2022-04-11 Travel 1.2.840.1 1.2.749.638 0227 192124 Methodi 00:00:00 00:00:[address] 3.430.2.7 0.2.7.3.698 Ho spita .3.216402 084.8 l .8 2022-04-11 2022-04-11 Telephone [place], 1.2.840.1 [id number] Methodi 00:00:00 00:00:[address] [place] 3.430.2.7 Hosp antione .3.750511 l .8 2022-04-11 2022-04-11 Travel 1.2.840.1 1.2.032.530 7900 258483 Methodi 00:00:00 00:00:[address] 3.430.2.7 0.2.7.3.698 Ho spita .3.323704 084.8 l .8 2022-04-08 2022-04-08 Telephone [place], 1.2.840.1 209985 Methodi 00:00:00 00:00:[address] [place] 3.430.2.7 Hosp antione .3.781574 l .8 2022-04-08 2022-04-08 Telephone Gorge, 1.2.840.1 [id number] Methodi 00:00:00 00:00:[address] [place] 3.430.2.7 Hosp antione .3.247366 l .8 2022-04-05 2022-04-05 Telephone Jessica, 1.2.840.1 [id number] 623 [id number] Methodi 00:00:00 00:00:00 Crysandria 66014.1.1 [address] 3.430.2.7 Hospit a .3.475025 l .8 2022-04-05 2022-04-05 Telephone Jessica, 1.2.840.1 [id number] 282 [id number] Methodi 00:00:00 00:00:00 Crysandria 48925.1.1 388 [address] t 3.430.2.7 Hospit a .3.809238 l .8 2022-03-11 2022-03-11 Office Gorge, 1.2.840.1 [id number] 4496 Methodi 11:30:00 11:53:30 Visit Rochelle 62207.1.[address] [place] 3.430.2.7 Hosp antione .3.218525 l .8 2022-03-11 2022-03-11 Office Gorge, 1.2.840.1 [id number] 7449 Methodi 11:30:00 11:53:30 Visit Rochelle 10925.1.[address] [place] 3.430.2.7 Hosp antione .3.764256 l .8 2022-02-26 2022-02-26 Telephone Shane, 1.2.840.1 [id number] 764 [id number] Methodi 00:00:00 00:00:[address] 3.430.2.7 Hospit a .3.187586 l .8 2022-02-26 2022-02-26 Telephone Shane, 1.2.840.1 [id number] 032 [id number] Methodi 00:00:00 00:00:[address] 3.430.2.7 Hospit a .3.019847 l .8 2022-02-07 2022-02-07 Office Asked, No Pcp 1.2.840.1 [id number] Methodi 15:00:00 16:33:51 Visit Rochelle [place] 16862.1.[address] 3.430.2.7 Hospit a .3.545299 l .8 2022-02-07 2022-02-07 Office Asked, No Pcp 1.2.840.1 [id number] Methodi 15:00:00 16:33:51 Visit Rochelle [place] 04383.1.[address] 3.430.2.7 Hospit a .3.619171 l .8 2022-02-07 2022-02-07 Travel 1.2.840.1 1.2.596.890 4018 187755 Methodi 00:00:00 00:00:[address] 3.430.2.7 0.2.7.3.698 Ho spita .3.906431 084.8 l .8 2022-02-07 2022-02-07 Travel 1.2.840.1 1.2.298.770 5733 000718 Methodi 00:00:00 00:00:[address] 3.430.2.7 0.2.7.3.698 Ho spita .3.586793 084.8 l .8 2022-02-01 2022-02-01 Telephone Katz, 1.2.840.1 [id number] 21 [id number] Methodi 00:00:00 00:00:[address] 3.430.2.7 Hospit a .3.895397 l .8 2022-02-01 2022-02-01 Telephone Katz, 1.2.840.1 [id number] 21 [id number] Methodi 00:00:00 00:00:[address] 3.430.2.7 Hospit a .3.734051 l .8 2022-01-25 2022-01-25 Telephone Antoinette, 1.2.840.1 [id number] Methodi 00:00:00 00:00:[address] 3.430.2.7 Hospit a .3.610812 l .8 2022-01-25 2022-01-25 Telephone Antoinette, 1.2.840.1 [id number] Methodi 00:00:00 00:00:[address] 3.430.2.7 Hospit a .3.122086 l .8 2022-01-01 2022-01-16 Office Dyllan Albert 1.2.840.1 [id number] 79746 32745 Methodi 09:00:00 04:17:[address] 3.430.2.7 Hospit a .3.462008 l .8 2022-01-01 2022-01-16 Office Dyllan Albert 1.2.840.1 [id number] 37197 05738 Methodi 09:00:00 04:17:[address] 3.430.2.7 Hospit a .3.622269 l .8 2022-01-11 2022-01-11 Telephone Omer, 1.2.840.1 [id number] Methodi 00:00:00 00:00:[address] 3.430.2.7 Hospit a .3.766632 l .8 2022-01-11 2022-01-11 Telephone Omer, 1.2.840.1 [id number] Methodi 00:00:00 00:00:[address] 3.430.2.7 Hospit a .3.337666 l .8 2022-01-09 2022-01-09 Hospital Dyllan Albert 1.2.840.1 [id number] 2100 473136 Methodi 07:17:00 17:05:[address] 3.430.2.7 Hospit a .3.214912 l .8 2022-01-09 2022-01-09 [facility] Dyllan Albert 1.2.840.1 [id number] 2100 [id number] Methodi 07:17:00 17:05:[address] 3.430.2.7 Hospit a .3.368431 l .8 2022-01-09 2022-01-09 Anesthesia Carolyn Solorzano 1.2.840. 1 [id number] Methodi 12:26:00 15:04:00 Event Whitney Cano 81258.1.[address] 3.430.2.7 Hospit a .3.497508 l .8 2022-01-09 2022-01-09 Anesthesia Carolyn Solorzano 1.2.840. 1 [id number] Methodi 12:26:00 15:04:00 Event Whitney Cano 35450.1.[address] 3.430.2.7 Hospit a .3.354661 l .8 2022-01-09 2022-01-09 Surgery Dyllan Albert 1.2.840.1 [id number] 03213 86861 Methodi 11:27:00 13:02:[address] 3.430.2.7 Hospit a .3.761317 l .8 2022-01-09 2022-01-09 [facility] Dyllan Albert 1.2.840.1 [id number] 43465 91881 Methodi 11:27:00 13:02:[address] 3.430.2.7 Hospit a .3.975288 l .8 2022-01-07 2022-01-07 [facility] Dyllan Albert 1.2.840.1 [id number] 2100 020643 Methodi 10:05:52 23:59:[address] 3.430.2.7 Hospit a .3.429597 l .8 2022-01-07 2022-01-07 [facility] Dyllan Albert 1.2.840.1 [id number] 2100 953875 Methodi 10:05:52 23:59:[address] 3.430.2.7 Hospit a .3.681748 l .8 2022-01-07 2022-01-07 Pre-Admiss Dyllan Albert 1.2.840.1 [id number] Methodi 09:00:00 10:00:[address] Testing 3.430.2.7 Hospit a .3.913765 l .8 2022-01-07 2022-01-07 Pre-Admiss Dyllan Albert 1.2.840.1 [id number] Methodi 09:00:00 10:00:[address] Testing 3.430.2.7 Hospit a .3.661037 l .8 2022-01-07 2022-01-07 Travel 1.2.840.1 1.2.854.201 7041 197950 Methodi 00:00:00 00:00:[address] 3.430.2.7 0.2.7.3.698 Ho spita .3.272566 084.8 l .8 2022-01-07 2022-01-07 Travel 1.2.840.1 1.2.513.495 2964 056483 Methodi 00:00:00 00:00:[address] 3.430.2.7 0.2.7.3.698 Ho spita .3.364969 084.8 l .8 2022-01-01 2022-01-01 Prep for Curry, 1.2.840.1 [id number] 2 [id number] Methodi 00:00:00 00:00:00 Surgery April [address]37.1.[address] 3.430.2.7 Hospit a .3.440382 l .8 2022-01-01 2022-01-01 Prep for Curry, 1.2.840.1 [id number] 2 [id number] Methodi 00:00:00 00:00:00 Surgery April [address].1.[address] 3.430.2.7 Hospit a .3.950970 l .8 2021-12-26 2021-12-26 Telephone Omer, 1.2.840.1 [id number] 21 [id number] Methodi 00:00:00 00:00:[address] 3.430.2.7 Hospit a .3.780534 l .8 2021-12-26 2021-12-26 Telephone Omer, 1.2.840.1 [id number] 21 [id number] Methodi 00:00:00 00:00:[address] 3.430.2.7 Hospit a .3.632998 l .8 2021-12-25 2021-12-25 Telephone Antoinette, 1.2.840.1 [id number] Methodi 00:00:00 00:00:[address] 3.430.2.7 Hospit a .3.717332 l .8 2021-12-25 2021-12-25 Telephone Antoinette, 1.2.840.1 [id number] Methodi 00:00:00 00:00:[address] 3.430.2.7 Hospit a .3.559069 l .8 2021-09-06 2021-09-[address] [facility] [id number] 00:00:00 00:00:00 [facility] 2021-05-13 2021-05-13 Letter SALBADOR Cabrera 1.2.840.114 [id number] 12 [facility] 00:00:00 00:00:00 (Out) Desi CONRAD 350.1.13.10 it y [facility] 4.2.7.2.686 Kj as [id number] [place] [address] Branch 2021-05-12 2021-05-[address] [facility] ERT [id number] Univers 08:47:00 11:17:00 TURNER itsteph [facility] 2021-05-12 2021-05-[address] [facility] 1.2.011.873 7668 4516 Univers 08:47:00 11:17:00 [facility]686 [facility] [id number] [place] [address] Branch Results Test Description Test Time Test Comments Results Result Comments Source POC glucose 2022-01-09 21:00:00 Test Item Value Reference Range Interpretation Comme nts POC glucose (test code = 214 mg/dL 65-99 H Ope rator Name: Joshua Beltran [id number]) ID: [id number] hartable: RN Notified Lab Interpretation (test code = Abnormal 00909-4) [facility] [id number] 21:00:00 Test Item Value Reference Range Interpretation Comments POC glucose (test code = 214 mg/dL 65-99 H Ope rator Name: [id number]) Joshua haywood ID: [id number] able: RN Notified Lab Interpretation (test Abnormal code = 59985-1) [facility]2022-09-21 21:00:00 Test Item Value Reference Range Interpretation Comments POC glucose (test code = 214 mg/dL 65-99 H Ope rator Name: [id number]) Joshua haywood ID: [id number] able: RN Notified Lab Interpretation (test Abnormal code = 72268-1) [facility] [id number] 21:00:00 Test Item Value Reference Range Interpretation Comments POC glucose (test code = 214 mg/dL 65-99 H Ope rator Name: [id number]) Joshua haywood ID: [id number] able: RN Notified Lab Interpretation (test Abnormal code = 82493-3) [facility] [id number] 21:00:00 Test Item Value Reference Range Interpretation Comments POC glucose (test code = 214 mg/dL 65-99 H Ope rator Name: [id number]) Joshua DasD evice ID: [id number] able: RN Notified Lab Interpretation (test Abnormal code = 67665-7) [facility] [id number] 21:00:00 Test Item Value Reference Range Interpretation Comments POC glucose (test code = 214 mg/dL 65-99 H Ope rator Name: 09774-5) Joshua ErPatricia haywood ID: [id number] able: RN Notified Lab Interpretation (test Abnormal code = 09555-5) [facility] [id number] 21:00:00 Test Item Value Reference Range Interpretation Comments POC glucose (test code = 214 mg/dL 65-99 H Ope rator Name: 13157-8) Joshua ErPatricia haywood ID: [id number] able: RN Notified Lab Interpretation (test Abnormal code = 69680-9) [facility]2022-09-21 21:00:00 Test Item Value Reference Range Interpretation Comments POC glucose (test code = 214 mg/dL 65-99 H Ope rator Name: [id number]) Joshua Rodriguez chastity ID: [id number] able: RN Notified Lab Interpretation (test Abnormal code = 08465-5) [facility] [id number] 13:44:01 Test Item Value Reference Range Interpretation Comments POC sodium (test code = 135 mmol/L 560-752 4770-0) POC potassium (test 4.5 mmol/L 3.5-5.0 code = 6298-4) POC glucose (test code 280 mg/dL 65-99 H = 2339-0) POC creatinine (test 6.0 mg/dl 0.7-1.2 H Operato r Name: code = 65897-5) Israel Roldan ID : [id number] POC hemoglobin (test 11.9 g/dL 14.0-18.0 L code = 718-7) POC hematocrit (test 35 % 41-51 L code = 4544-3) Lab Interpretation Abnormal (test code = 52282-8) [facility]2022-09-21 13:44:01 Test Item Value Reference Range Interpretation Comments POC sodium (test code = 135 mmol/L 466-957 5780-0) POC potassium (test 4.5 mmol/L 3.5-5.0 code = 6298-4) POC glucose (test code 280 mg/dL 65-99 H = 2339-0) POC creatinine (test 6.0 mg/dl 0.7-1.2 H Operato r Name: code = 62986-3) Israel Mireleskassy ID : [id number] POC hemoglobin (test 11.9 g/dL 14.0-18.0 L code = 718-7) POC hematocrit (test 35 % 41-51 L code = 4544-3) Lab Interpretation Abnormal (test code = 09101-8) [facility]2022-09-21 13:44:01 Test Item Value Reference Range Interpretation Comments POC sodium (test code = 135 mmol/L 013-319 2851-0) POC potassium (test 4.5 mmol/L 3.5-5.0 code = 6298-4) POC glucose (test code 280 mg/dL 65-99 H = 2339-0) POC creatinine (test 6.0 mg/dl 0.7-1.2 H Operato r Name: code = 88785-0) [place] Mireleskassy ID : [id number] POC hemoglobin (test 11.9 g/dL 14.0-18.0 L code = 718-7) POC hematocrit (test 35 % 41-51 L code = 4544-3) Lab Interpretation Abnormal (test code = 86623-7) [facility]2022-09-21 13:44:01 Test Item Value Reference Range Interpretation Comments POC sodium (test code = 135 mmol/L 779-194 4759-0) POC potassium (test 4.5 mmol/L 3.5-5.0 code = 6298-4) POC glucose (test code 280 mg/dL 65-99 H = 2339-0) POC creatinine (test 6.0 mg/dl 0.7-1.2 H Operato r Name: code = 93743-7) Israel Roldan ID : [id number] POC hemoglobin (test 11.9 g/dL 14.0-18.0 L code = 718-7) POC hematocrit (test 35 % 41-51 L code = 4544-3) Lab Interpretation Abnormal (test code = 37953-0) [facility]2022-09-21 13:44:01 Test Item Value Reference Range Interpretation Comments POC sodium (test code = 135 mmol/L 904-364 5530-0) POC potassium (test 4.5 mmol/L 3.5-5.0 code = 6298-4) POC glucose (test code 280 mg/dL 65-99 H = 2339-0) POC creatinine (test 6.0 mg/dl 0.7-1.2 H Operato r Name: code = 59056-2) Israel Roldan ID : [id number] POC hemoglobin (test 11.9 g/dL 14.0-18.0 L code = 718-7) POC hematocrit (test 35 % 41-51 L code = 4544-3) Lab Interpretation Abnormal (test code = 17185-8) [facility]2022-09-21 13:44:01 Test Item Value Reference Range Interpretation Comments POC sodium (test code = 135 mmol/L 397-055 8673-0) POC potassium (test 4.5 mmol/L 3.5-5.0 code = 6298-4) POC glucose (test code 280 mg/dL 65-99 H = 2339-0) POC creatinine (test 6.0 mg/dl 0.7-1.2 H Operato r Name: code = 36869-6) Israel Roldan ID : [id number] POC hemoglobin (test 11.9 g/dL 14.0-18.0 L code = 718-7) POC hematocrit (test 35 % 41-51 L code = 4544-3) Lab Interpretation Abnormal (test code = 62553-6) [facility]2022-09-21 13:44:01 Test Item Value Reference Range Interpretation Comments POC sodium (test code = 135 mmol/L 503-406 0728-0) POC potassium (test 4.5 mmol/L 3.5-5 code = 6298-4) POC glucose (test code 280 mg/dL 65-99 H = 2339-0) POC creatinine (test 6.0 mg/dl 0.7-1.2 H Operato r Name: code = 40314-0) Israel Roldan ID : [id number] POC hemoglobin (test 11.9 g/dL 14-18 L code = 718-7) POC hematocrit (test 35 % 41-51 L code = 4544-3) Lab Interpretation Abnormal (test code = 06392-1) [facility] [facility] [id number] 13:44:01 Test Item Value Reference Range Interpretation Comments POC sodium (test code = 135 mmol/L 195-564 1131-0) POC potassium (test 4.5 mmol/L 3.5-5.0 code = 6298-4) POC glucose (test code 280 mg/dL 65-99 H = 2339-0) POC creatinine (test 6.0 mg/dl 0.7-1.2 H Operato r Name: code = 61163-1) Israel Roldan ID : [id number] POC hemoglobin (test 11.9 g/dL 14.0-18.0 L code = 718-7) POC hematocrit (test 35 % 41-51 L code = 4544-3) Lab Interpretation Abnormal (test code = 30810-9) [facility] [id number] 13:44:00 Test Item Value Reference Range Interpretation Comments Estimated GFR (test mL/min/1.73 m2 A Caterg ory Units code = 25339-6) Interpretati onG1 >=90 Normal or highG 2 60-89 Mildly decrease dG3a 45-59 Mildly to moderately decr cxepuN4b 30-44 Moderatel y to severely decrea sedG4 15-29 Severely decreasedG5 <15 Kidney failureThe eGFR was calculated mary anne g the Chronic Kidney Disease Epidemiology Collaboration ( CKD-EPI) equation. Interpretation is based on recommendati ons of the National dney Foundation-Kidn ey Disease Outcome s Quality Initiat [place] (NKF-KDOQI) pub lished in 2013. Lab Interpretation Abnormal (test code = 37115-4) [facility] [id number] 13:44:00 Test Item Value Reference Range Interpretation Comments Estimated GFR (test mL/min/1.73 m2 A Caterg ory Units code = 03155-0) Interpretati onG1 >=90 Normal or highG 2 60-89 Mildly decrease dG3a 45-59 Mildly to moderately decr xntuoZ9l 30-44 Moderatel y to severely decrea sedG4 15-29 Severely decreasedG5 <15 Kidney failureThe eGFR was calculated usin g the Chronic Kidney Disease Epidemiology Collaboration ( CKD-EPI) equation. Interpretation is based on recommendati ons of the [facility] Disease Outcome s Quality Initiat [place] ([facility]-KDOQI) pub lished in 2013. Lab Interpretation Abnormal (test code = 31150-6) [facility] [id number] 13:44:00 Test Item Value Reference Range Interpretation Comments Estimated GFR (test mL/min/1.73 m2 A Caterg ory Units code = 71063-2) Interpretati onG1 >=90 Normal or highG 2 60-89 Mildly decrease dG3a 45-59 Mildly to moderately decr fskkrF2p 30-44 Moderatel y to severely decrea sedG4 15-29 Severely decreasedG5 <15 Kidney failureThe eGFR was calculated usin g the Chronic Kidney Disease Epidemiology Collaboration ( CKD-EPI) equation. Interpretation is based on recommendati ons of the [facility] Disease Outcome s Quality Initiat [place] ([facility]-KDOQI) pub lished in 2013. Lab Interpretation Abnormal (test code = 54293-9) [facility] [id number] 13:44:00 Test Item Value Reference Range Interpretation Comments Estimated GFR (test 10 mL/min/1.73 m2 A Caterg ory Units code = 73208-2) Interpretati onG1 >=90 Normal or highG 2 60-89 Mildly decrease dG3a 45-59 Mildly to moderately decr burinF2d 30-44 Moderatel y to severely decrea sedG4 15-29 Severely decreasedG5 <15 Kidney failureThe eGFR was calculated usin g the Chronic Kidney Disease Epidemiology Collaboration ( CKD-EPI) equation. Interpretation is based on recommendati ons of the [facility] Disease Outcome s Quality Initiat [place] (NK-KDOQI) pub lished in 2013. Lab Interpretation Abnormal (test code = 43579-5) [facility] [id number] 13:44:00 Test Item Value Reference Range Interpretation Comments Estimated GFR (test 10 mL/min/1.73 m2 A Caterg ory Units code = 38787-5) Interpretati onG1 >=90 Normal or highG 2 60-89 Mildly decrease dG3a 45-59 Mildly to moderately decr ipjjvH7d 30-44 Moderatel y to severely decrea sedG4 15-29 Severely decreasedG5 <15 Kidney failureThe eGFR was calculated usin g the Chronic Kidney Disease Epidemiology Collaboration ( CKD-EPI) equation. Interpretation is based on recommendati ons of the [facility] Disease Outcome s Quality Initiat [place] (NK-KDOQI) pub lished in 2013. Lab Interpretation Abnormal (test code = 19914-8) [facility] [id number] 13:44:00 Test Item Value Reference Range Interpretation Comments Estimated GFR (test 10 mL/min/1.73 m2 A Caterg ory Units code = 17610-3) Interpretati onG1 >=90 Normal or highG 2 60-89 Mildly decrease dG3a 45-59 Mildly to moderately decr hhnpzE2j 30-44 Moderatel y to severely decrea sedG4 15-29 Severely decreasedG5 <15 Kidney failureThe eGFR was calculated usin g the Chronic Kidney Disease Epidemiology Collaboration ( CKD-EPI) equation. Interpretation is based on recommendati ons of the [facility] Disease Outcome s Quality Initiat [place] ([facility]-KDOQI) pub lished in 2013. Lab Interpretation Abnormal (test code = 40490-1) [facility] [id number] 13:44:00 Test Item Value Reference Range Interpretation Comments Estimated GFR (test mL/min/1.73 m2 A Caterg ory Units code = 33877-6) Interpretati onG1 >=90 Normal or highG 2 60-89 Mildly decrease dG3a 45-59 Mildly to moderately decr gifjwP7y 30-44 Moderatel y to severely decrea sedG4 15-29 Severely decreasedG5 <15 Kidney failureThe eGFR was calculated usin g the Chronic Kidney Disease Epidemiology Collaboration ( CKD-EPI) equation. Interpretation is based on recommendati ons of the [facility] Disease Outcome s Quality Initiat [place] ([facility]-KDOQI) pub lished in 2013. Lab Interpretation Abnormal (test code = 77613-3) [facility] [id number] 13:44:00 Test Item Value Reference Range Interpretation Comments Estimated GFR (test 10 mL/min/1.73 m2 A Caterg ory Units code = 85484-5) Interpretati onG1 >=90 Normal or highG 2 60-89 Mildly decrease dG3a 45-59 Mildly to moderately decr hfowuQ4l 30-44 Moderatel y to severely decrea sedG4 15-29 Severely decreasedG5 <15 Kidney failureThe eGFR was calculated mary anne ibarra the Chronic Kidney Disease Epidemiology Collaboration ( CKD-EPI) equation. Interpretation is based on recommendati ons of the [facility]-Kidn ey Disease Outcome s Quality Initiat [place] (NKF-KDOQI) pub [facility] in 2013. Lab Interpretation Abnormal (test code = 33568-7) [facility] BczrydelBAIC-KgY-5 (COVID-19) RNA [Presence] in Respiratory specimen by YESENIA with probe [id number] 17:48:52 Test Item Value Reference Range Interpretation Comments SARS-CoV-2 (COVID-19) RNA Not detected [Presence] in Respiratory specimen by YESENIA with probe detection (test code = 88739-2) Whether patient is employed in a Unknown healthcare setting (test code = 98368-2) Whether the patient has symptoms Unknown related to condition of interest (test code = 91282-3) Whether the patient was Unknown hospitalized for condition of interest (test code = 30242-4) Whether the patient was admitted Unknown to intensive care unit (ICU) for condition of interest (test code = 69858-3) Whether patient resides in a Unknown congregate care setting (test code = 50554-1) status (test code = Unknown 55758-1) Date and time of symptom onset Unknown (test code = 07638-6) [facility]Post [id number] 17:20:24 Test Item Value Reference Range Interpretation Comments Ventricular rate (test code = 253) Atrial rate (test code = 255) DE interval (test code = 266) QRSD interval (test code = 260) QT interval (test code = 264) QTC interval (test code = 265) P axis 1 (test code = 267) QRS axis 1 (test code = 268) T wave axis (test code = 270) EKG impression (test Sinus rhythm with code = 273) occasional premature ventricular complexes-Left axis deviation-Abnormal ECG-No previous ECGs available- [facility] Pre/Post [id number] 17:20:24 Test Item Value Reference Range Interpretation Comments Ventricular rate (test code = 253) Atrial rate (test code = 255) DE interval (test code = 266) QRSD interval (test code = 260) QT interval (test code = 264) QTC interval (test code = 265) P axis 1 (test code = 267) QRS axis 1 (test code = 268) T wave axis (test code = 270) EKG impression (test Sinus rhythm with code = 273) occasional premature ventricular complexes-Left axis deviation-Abnormal ECG-No previous ECGs available- [facility] Pre/Post [id number] 17:20:24 Test Item Value Reference Range Interpretation Comments Ventricular rate (test code = 253) Atrial rate (test code = 255) DE interval (test code = 266) QRSD interval (test code = 260) QT interval (test code = 264) QTC interval (test code = 265) P axis 1 (test code = 267) QRS axis 1 (test code = 268) T wave axis (test code = 270) EKG impression (test Sinus rhythm with code = 273) occasional premature ventricular complexes-Left axis deviation-Abnormal ECG-No previous ECGs available- [facility] Pre/Post [id number] 17:20:24 Test Item Value Reference Range Interpretation Comments Ventricular rate 91 (test code = 253) Atrial rate (test 91 code = 255) DE interval (test 114 code = 266) QRSD [...] complexes-Left axis deviation-Abnormal ECG-No previous ECGs available- [facility] Pre/Post [id number] 17:20:24 Test Item Value Reference Range Interpretation Comments Ventricular rate 91 (test code = 253) Atrial rate (test 91 code = 255) DE interval (test 114 code = 266) QRSD [...] complexes-Left axis deviation-Abnormal ECG-No previous ECGs available- [facility] Pre/Post [id number] 17:20:24 Test Item Value Reference Range Interpretation Comments Ventricular rate 91 (test code = 253) Atrial rate (test 91 code = 255) DE interval (test 114 code = 266) QRSD [...] complexes-Left axis deviation-Abnormal ECG-No previous ECGs available- [facility] Pre/Post [id number] 17:20:24 Test Item Value Reference Range Interpretation Comments Ventricular rate (test code = 253) Atrial rate (test code = 255) DE interval (test code = 266) QRSD interval (test code = 260) QT interval (test code = 264) QTC interval (test code = 265) P axis 1 (test code = 267) QRS axis 1 (test code = 268) T wave axis (test code = 270) EKG impression (test Sinus rhythm with code = 273) occasional premature ventricular complexes-Left axis deviation-Abnormal ECG-No previous ECGs available- [facility] Pre/Post [id number] 17:20:24 Test Item Value Reference Range Interpretation Comments Ventricular rate 91 (test code = 253) Atrial rate (test 91 code = 255) DE interval (test 114 code = 266) QRSD [...] complexes-Left axis deviation-Abnormal ECG-No previous ECGs available- [facility]2022-09-19 15:46:00 Test Item Value Reference Range Interpretation Comments Urine culture (test SEE COMMENT Bacteriu lashell screen code = 3535369) negative. [facility]2022-09-19 15:46:00 Test Item Value Reference Range Interpretation Comments Urine culture (test SEE COMMENT Bacteriu lashell screen code = 7742861) negative. [facility]2022-09-19 15:46:00 Test Item Value Reference Range Interpretation Comments Urine culture (test SEE COMMENT Bacteriu lashell screen code = 8147482) negative. [facility]2022-09-19 15:46:00 Test Item Value Reference Range Interpretation Comments Urine culture (test SEE COMMENT Bacteriu lashell screen code = 3011951) negative. [facility]2022-09-19 15:46:00 Test Item Value Reference Range Interpretation Comments Urine culture (test SEE COMMENT Bacteriu lashell screen code = 4973793) negative. [facility]2022-09-19 15:46:00 Test Item Value Reference Range Interpretation Comments Urine culture (test SEE COMMENT Bacteriu lashell screen code = 7921709) negative. [facility]2022-09-19 15:46:00 Test Item Value Reference Range Interpretation Comments Urine culture (test SEE COMMENT Bacteriu lashell screen code = 5172973) negative. [facility]2022-09-19 15:46:00 Test Item Value Reference Range Interpretation Comments Urine culture (test SEE COMMENT Bacteriu lashell screen code = 0247710) negative. [facility] B surface [id number] 22:01:34 Test Item Value Reference Range Interpretation Comments Hep B S Ab (test code See_Comment [Auto mated = 64788-1) message] The system which generated this result transmit brad reference range : <8.0 mIU/mL. Th e reference range was not used to interpret this result as normal/abnormal . TALIB (test code = TALIB) Net Mender ID - DB Lab Interpretation Normal (test code = 45591-9) [facility] B surface [id number] 22:01:34 Test Item Value Reference Range Interpretation Comments Hep B S Ab (test code <8.0 See_Comment [Auto mated = 81271-7) message] The system which generated this result transmit brad reference range : <8.0 mIU/mL. Th e reference range was not used to interpret this result as normal/abnormal . TALIB (test code = TALIB) Net Mender ID - DB Lab Interpretation Normal (test code = 89309-2) [facility] B surface [id number] 22:01:34 Test Item Value Reference Range Interpretation Comments Hep B S Ab (test code <8.0 See_Comment [Auto mated = 25325-0) message] The system which generated this result transmit brad reference range : <8.0 mIU/mL. Th e reference range was not used to interpret this result as normal/abnormal . TALIB (test code = TALIB) Net Mender ID - DB Lab Interpretation Normal (test code = 41950-3) [facility] B surface [id number] 22:01:34 Test Item Value Reference Range Interpretation Comments Hep B S Ab (test code <8.0 See_Comment [Auto mated = 01464-6) message] The system which generated this result transmit brad reference range : <8.0 mIU/mL. Th e reference range was not used to interpret this result as normal/abnormal . TALIB (test code = TALIB) Net Mender ID - DB Lab Interpretation Normal (test code = 69443-9) [facility] B surface [id number] 22:01:34 Test Item Value Reference Range Interpretation Comments Hep B S Ab (test code <8.0 See_Comment [Auto mated = 49547-1) message] The system which generated this result transmit brad reference range : <8.0 mIU/mL. Th e reference range was not used to interpret this result as normal/abnormal . TALIB (test code = TALIB) Net Mender ID - DB Lab Interpretation Normal (test code = 32790-4) [facility] [id number] 22:01:34 Test Item Value Reference Range Interpretation Comments Hep B S Ab (test code <8.0 See_Comment [Auto mated = 01240-9) message] The system which generated this result transmit brad reference range : <8.0 mIU/mL. Th e reference range was not used to interpret this result as normal/abnormal . TALIB (test code = TALIB) Net Mender ID - DB Lab Interpretation Normal (test code = 27635-0) [facility] surface [id number] 22:01:34 Test Item Value Reference Range Interpretation Comments Hep B S Ab (test code <8.0 See_Comment [Auto mated = 28290-3) message] The system which generated this result transmit brad reference range : <8.0 mIU/mL. Th e reference range was not used to interpret this result as normal/abnormal . TALIB (test code = TALIB) Net Mender ID - DB Lab Interpretation Normal (test code = 16690-9) [facility] [id number] 22:01:34 Test Item Value Reference Range Interpretation Comments HEPATITIS B SURFACE ANTIBODY < mIU/mL <8.0 (BEAKER) (test code = 647) Net Mender ID - DBHepatitis B core antibody, [id number] 21:52:25 Test Item Value Reference Range Interpretation Comments Hep B C IgM (test code = Nonreactive Nonreactive 38884-1) TALIB (test code = TALIB) Net Mender ID - DB Lab Interpretation (test Normal code = 14624-9) [facility] core antibody, [id number] 21:52:25 Test Item Value Reference Range Interpretation Comments Hep B C IgM (test code = Nonreactive Nonreactive 99035-6) TALIB (test code = TALIB) Net Mender ID - DB Lab Interpretation (test Normal code = 55495-0) [facility] B core antibody, [id number] 21:52:25 Test Item Value Reference Range Interpretation Comments Hep B C IgM (test code = Nonreactive Nonreactive 59533-5) TALIB (test code = TALIB) Net Mender ID - DB Lab Interpretation (test Normal code = 61842-5) [facility] core antibody, [id number] 21:52:25 Test Item Value Reference Range Interpretation Comments Hep B C IgM (test code = Nonreactive Nonreactive 17385-6) TALIB (test code = TALIB) Net Mender ID - DB Lab Interpretation (test Normal code = 98829-2) [facility] B core antibody, [id number] 21:52:25 Test Item Value Reference Range Interpretation Comments Hep B C IgM (test code = Nonreactive Nonreactive 43225-2) TALIB (test code = TALIB) Net Mender ID - DB Lab Interpretation (test Normal code = 75770-4) [facility] B core antibody, [id number] 21:52:25 Test Item Value Reference Range Interpretation Comments Hep B C IgM (test code = Nonreactive Nonreactive 97766-1) TALIB (test code = TALIB) Net Mender ID - DB Lab Interpretation (test Normal code = 67388-6) [facility] B core antibody, [id number] 21:52:25 Test Item Value Reference Range Interpretation Comments Hep B C IgM (test code = Nonreactive Nonreactive 90941-6) TALIB (test code = TALIB) Net Mender ID - DB Lab Interpretation (test Normal code = 79129-1) [facility] CORE ANTIBODY, [id number] 21:52:25 Test Item Value Reference Range Interpretation Comments HEPATITIS B CORE IGM ANTIBODY Nonreactive Nonreactive (BEAKER) (test code = 645) Net Mender ID - [facility] B surface [id number] 21:52:19 Test Item Value Reference Range Interpretation Comments Hepatitis B surface Nonreactive Nonreactive antigen (test code = 5195-3) TALIB (test code = TALIB) Specimen is considered negative for HBsAg. Lab Interpretation (test Normal code = 40706-3) [facility] [id number] 21:52:19 Test Item Value Reference Range Interpretation Comments Hepatitis B surface Nonreactive Nonreactive antigen (test code = 5195-3) TALIB (test code = TALIB) Specimen is considered negative for HBsAg. Lab Interpretation (test Normal code = 01077-2) [facility] [id number] 21:52:19 Test Item Value Reference Range Interpretation Comments Hepatitis B surface Nonreactive Nonreactive antigen (test code = 5195-3) TALIB (test code = TALIB) Specimen is considered negative for HBsAg. Lab Interpretation (test Normal code = 15035-6) [facility] [id number] 21:52:19 Test Item Value Reference Range Interpretation Comments Hepatitis B surface Nonreactive Nonreactive antigen (test code = 5195-3) TALIB (test code = TALIB) Specimen is considered negative for HBsAg. Lab Interpretation (test Normal code = 10697-8) [facility] B surface [id number] 21:52:19 Test Item Value Reference Range Interpretation Comments Hepatitis B surface Nonreactive Nonreactive antigen (test code = 5195-3) TALIB (test code = TALIB) Specimen is considered negative for HBsAg. Lab Interpretation (test Normal code = 49999-1) [facility] [id number] 21:52:19 Test Item Value Reference Range Interpretation Comments Hepatitis B surface Nonreactive Nonreactive antigen (test code = 5195-3) TALIB (test code = TALIB) Specimen is considered negative for HBsAg. Lab Interpretation (test Normal code = 37803-7) [facility] [id number] 21:52:19 Test Item Value Reference Range Interpretation Comments Hepatitis B surface Nonreactive Nonreactive antigen (test code = 5195-3) TALIB (test code = TALIB) Specimen is considered negative for HBsAg. Lab Interpretation (test Normal code = 19755-1) [facility] [id number] 21:52:19 Test Item Value Reference Range Interpretation Comments HEPATITIS B SURFACE ANTIGEN (2) Nonreactive Nonreactive (BEAKER) (test code = 2585) Specimen is considered negative for HBsAg.
--- NOTE | 2022-11-03 19:35 | RAD REPORT ---
EXAM DESCRIPTION: CT - [facility] Protocol - 11/03/2022 7:18 pm CLINICAL HISTORY: ABD PAIN COMPARISON: Abdomen Pelvis Wo Contrast dated 02/12/2022; [facility] Protocol dated 05/04/2021 TECHNIQUE: Thin cut axial CT imaging of the abdomen and pelvis was performed without IV contrast. Mu ltiplanar reformats were generated and reviewed. All CT scans are performed using dose optimization technique as appropriate and may include automated exposure control or mA/KV adjustment according to patient size. FINDINGS: No suspicious findings in the lung bases. The liver, spleen, adrenal glands, and pancreas show no suspicious findings. Benign-appearing punctat e subcapsular calcification along the undersurface of the right liver lobe, and another tiny calcific ation along the surface of the left lobe anteriorly. Gallbladder and biliary tree are also without vazquez spicious finding. Symmetric renal contour, without suspicious parenchymal findings within limits of noncontrast techniq ue. No evidence of radiopaque calculi or hydroureteronephrosis. No dilated bowel loops or bowel wall thickening. No free air, free fluid or inflammatory stranding. N o hernia, mass or bulky lymphadenopathy. The urinary bladder is without significant finding. No suspicious bony findings. IMPRESSION: No acute intra-abdominal process. Stable incidental findings as above.
--- NOTE | 2022-11-03 20:04 | EDPHYS ---
Physician Documentation [facility] Name: Chava Pate Age: 47 yrs Sex: Male : 1975 Arrival Date: 11/03/2022 Time: 18:20 Bed 16 Private MD: Ramon Romo T ED Physician Elijah Ruiz HPI: 11/03 19:29 This 47 yrs old Male presents to ER via Ambulatory with complaints of Groin kb Pain. 19:29 The patient presents with abdominal pain right groin. Onset: The symptoms/episode kb began/occurred 4 year(s) ago, and became worse 1 month(s) ago. The symptoms radiate to right lower quadrant. Associated signs and symptoms: none. The symptoms are described as intermittent. Modifying factors: The symptoms are alleviated by nothing, the symptoms are aggravated by nothing. Severity of pain: At its worst the pain was moderate in the emergency department the pain is unchanged. The patient has not experienced similar symptoms in the past. The patient has not recently seen a physician. Patient reports pain to right groin that started 4 years ago with lifting heavy objects. States it has been intermittent since then but worse over the last month since he started a new job. Reports pain radiates to right lower quadrant.. Historical: - Allergies: 18:37 No Known Allergies; iw - PMHx: 18:37 Diabetes - NIDDM; Dialysis; Hypertensive disorder; kidney disease; PERIPHERAL iw NEUROPATHY; - PSHx: 18:37 fistula L arm; iw - Immunization history:: Adult Immunizations up to date. - Social history:: Smoking status: Patient denies any tobacco usage or history of. ROS: 19:29 Constitutional: Negative for fever, chills, and weight loss. kb 19:29 : Positive for of the right femoral area. 19:29 All other systems are negative. Exam: 19:31 Constitutional: This is a well developed, well nourished patient who is awake, alert, kb and in no acute distress. Head/Face: Normocephalic, atraumatic. ENT: Moist Mucous membranes Cardiovascular: Regular rate and rhythm with a normal S1 and S2. No gallops, murmurs, or rubs. No pulse deficits. Respiratory: Respirations even and unlabored. No increased work of breathing. Talking in full sentences Abdomen/GI: Soft, non-tender. No distention Male : Normal genitalia with no discharge or lesions. Skin: Warm, dry with normal turgor. Normal color. MS/ Extremity: Pulses equal, no cyanosis. Neurovascular intact. Full, normal range of motion. Neuro: Awake and alert, GCS 15, oriented to person, place, time, and situation. Moves all extremities. Normal gait. 19:31 Abdomen/GI: Hernia: not appreciated. Vital Signs: 18:34 BP 126 / 77; Pulse 78; Resp 16; Pulse Ox 100% on R/A; Weight 104.33 kg; Height 5 ft. 8 iw in. ; Pain 7/10; 19:41 BP 139 / 79; Pulse 75; Resp 18 S; Pulse Ox 100% on R/A; ha1 18:34 Body Mass Index 34.97 (104.33 kg, 172.72 cm) iw 18:34 Pain Scale: Adult iw MDM: 18:40 Patient medically screened. kb 19:31 Differential diagnosis: hernia, nonspecific abd pain, appendicitis, kidney stone. Data kb reviewed: vital signs, nurses notes. 19:32 Counseling: I had a detailed discussion with the patient and/or guardian regarding: the kb historical points, exam findings, and any diagnostic results supporting the discharge/admit diagnosis, radiology results, the need for outpatient follow up, a family practitioner, to return to the emergency department if symptoms worsen or persist or if there are any questions or concerns that arise at home. 11/03 18:49 Order name: CT Stone Protocol; Complete Time: 20:07 kb Administered Medications: No medications were administered Disposition Summary: 11/03/22 20:03 Discharge Ordered Location: Home kb Condition: Stable kb Diagnosis - Right groin pain kb Followup: kb - With: Emergency Department - When: As needed - Reason: Worsening of condition Followup: kb - With: Private Physician - When: 2 - 3 days - Reason: Recheck today's complaints, Continuance of care, Re-evaluation by your physician Discharge Instructions: - Discharge Summary Sheet kb - Hernia, Adult, [id number] kb Forms: - Medication Reconciliation Form kb - Thank You Letter kb - Antibiotic Education kb - Prescription Opioid Use kb - Patient Portal Instructions kb Signatures: Dispatcher [employer] Elizabeth Dejesus, DIAN-C DIAN-Latasha Moseley RN RN iw
--- NOTE | 2022-11-03 20:04 | ER ---
Nurse's Notes [facility] Name: Chava Pate Age: 47 yrs Sex: Male : 1975 Arrival Date: 11/03/2022 Time: 18:20 Bed 16 Private MD: Ramon Romo T Diagnosis: Right groin pain Presentation: 11/03 18:34 Chief complaint: Patient states: adarsh groin pain radiating up to right lower abd , iw started four years ago and now it's getting worse, thinks it's a hernia, has hx of kidney failure and is on dialysis. Coronavirus screen: At this time, the client does not indicate any symptoms associated with coronavirus-19. Ebola Screen: Patient negative for fever greater than or equal to 101.5 degrees Fahrenheit, and additional compatible Ebola Virus Disease symptoms Patient denies exposure to infectious person. Patient denies travel to an Ebola-affected area in the 21 days before illness onset. No symptoms or risks identified at this time. Initial Sepsis Screen: Does the patient meet any 2 criteria? No. Patient's initial sepsis screen is negative. Does the patient have a suspected source of infection? No. Patient's initial sepsis screen is negative. Risk Assessment: Do you want to hurt yourself or someone else? Patient reports no desire to harm self or others. Onset of symptoms was October 08, 2022. 18:34 Method Of Arrival: Ambulatory iw 18:34 Acuity: EDINSON 3 iw Historical: - Allergies: 18:37 No Known Allergies; iw - PMHx: 18:37 Diabetes - NIDDM; Dialysis; Hypertensive disorder; kidney disease; PERIPHERAL iw NEUROPATHY; - PSHx: 18:37 fistula L arm; iw - Immunization history:: Adult Immunizations up to date. - Social history:: Smoking status: Patient denies any tobacco usage or history of. Screenin:40 [facility] ED Fall Risk Assessment (Adult) Score/Fall Risk Level 0 - 2 = Low Risk. Abuse eh3 screen: Denies threats or abuse. Denies injuries from another. Nutritional screening: No deficits noted. Tuberculosis screening: No symptoms or risk factors identified. Assessment: 18:40 General: Appears in no apparent distress. uncomfortable, Behavior is cooperative, eh3 appropriate for age. Pain: Complains of pain in pelvis. Neuro: Level of Consciousness is awake, alert, obeys commands, Oriented to person, place, time, situation. Cardiovascular: Capillary refill < 3 seconds Patient's skin is warm and dry. Respiratory: Airway is patent Respiratory effort is even, unlabored, Respiratory pattern is regular, symmetrical. GI: Abdomen is round non-distended. Derm: Skin is healthy with good turgor. Musculoskeletal: Circulation, motion, and sensation intact. 19:40 Reassessment:. General: Appears comfortable, Behavior is calm, cooperative. Pain: ha1 Complains of pain in pelvis Pain does not radiate. Pain currently is 2 out of 10 on a pain scale. Quality of pain is described as pressure. Neuro: Level of Consciousness is awake, alert, obeys commands, Oriented to person, place, time, situation. Cardiovascular: Patient's skin is warm and dry. Respiratory: Airway is patent Respiratory effort is even, unlabored, Respiratory pattern is regular, symmetrical. : Reports pain on the groin. Musculoskeletal: Circulation, motion, and sensation intact. Range of motion: intact in all extremities. 20:05 Reassessment: Pt discharged pending CT results. eh3 Vital Signs: 18:34 BP 126 / 77; Pulse 78; Resp 16; Pulse Ox 100% on R/A; Weight 104.33 kg; Height 5 ft. 8 iw in. ; Pain 7/10; 19:41 BP 139 / 79; Pulse 75; Resp 18 S; Pulse Ox 100% on R/A; ha1 18:34 Body Mass Index 34.97 (104.33 kg, 172.72 cm) iw 18:34 Pain Scale: Adult iw ED Course: 18:24 Patient arrived in ED. am2 18:24 Ramon Romo MD is Private Physician. am2 18:37 Triage completed. iw 18:38 Arm band placed on. iw 18:40 Elizabeth Fofana FNP-C is [facility]. kb 18:40 Elijah Ruiz MD is Attending Physician. kb 18:40 Patient has correct armband on for positive identification. Bed in low position. Call eh3 light in reach. Side rails up X2. Provided Education on: N/A. Pulse ox on. NIBP on. Door closed. Noise minimized. 19:19 CT Stone Protocol In Process Unspecified. EDMS 20:09 No provider procedures requiring assistance completed. Patient did not have IV access eh3 during this emergency room visit. Administered Medications: No medications were administered Medication: 20:09 VIS not applicable for this client. eh3 Outcome: 20:03 Discharge ordered by . bj 20:09 Discharged to home ambulatory. eh3 20:09 Condition: stable 20:09 Discharge instructions given to patient, Instructed on discharge instructions, follow up and referral plans. Demonstrated understanding of instructions, follow-up care. 20:15 Patient left the ED. ha1 Signatures: Dispatcher [employer] EDElizabeth Dunne, DIAN-C JOB MOLDER-Latasha Moseley, RN RN Radha Medrano Erin RN RN 3 Allyson Grijalva RN RN 1
[2022-11-03 20:27] VITALS: O2SAT 100
[2022-11-03 20:28] VITALS: BP 139/79
== END 2022-11-03 20:15 | disposition home or self-care (01) ==
LOC: ER 18:20
DX: R10.31 Right lower quadrant pain (principal)
CPT/HCPCS: 74176; 76377; 99283

== ENCOUNTER 2022-11-13 17:16 | Emergency (ER) | payer BC, OTHER ==
--- OUTSIDE RECORDS SUMMARY | 2022-11-13 17:21 | XMS REPORT | Continuity of Care Document ---
:1975 Author Organization [facility] t Address [address] [facility] [address] [place] [id number] Care Team Providers Name Role Phone RITA DEYURSTON Primary Care Physician Unavailable Gorge TOMLINC, Rochelle Gomez Attending Clinician [phone] Kamilla Tello MA Attending Clinician Unavailable Malorie Lopez MA Attending Clinician Unavailable Gisele Lynn MA Attending Clinician Unavailable Asked, No Pcp Attending Clinician Unavailable Tabatha Katz MA Attending Clinician Unavailable Antoinette MEDRANO, April Attending Clinician Unavailable Dyllan Albert MD Attending Clinician Carolyn Solorzano MD Attending Clinician [phone] Whitney Dow Attending Clinician Desi Cabrera [...] Added automatic ally from request for surgery [id number] No known No known Disease Unive rs active active ity of problems problems [facility] Allergies, Adverse Reactions, Alerts Allergy Allergy Status Severity Reaction(s) Onset Inactive Treating Comm ents Source Name Type Date Date Clinician NO KNOWN Drug Active Univers ALLERGIE Class ity of S [facility] Family History Family Member Diagnosis Comments Start Date Stop Date Source Natural father No Known Problems [facility] Natural mother Stroke [facility] Social History Social Habit Start Date Stop Date Quantity Comments Source Exposure to Not sure University SARS-CoV-2 (event) [facility] Gender identity [facility] Sexual orientation [facility] History of Social 2022-06-30 2022-06-[address] function 00:00:00 00:00:00 Hospital Alcohol intake 2022-02-05 2022-02-05 Lifetime [facility] 00:00:00 00:00:00 non-drinker Hospital (finding) Tobacco use and 2022-01-07 2022-01-07 Smokeless [facility] exposure 00:00:00 00:00:00 tobacco non-user Hospital Sex Assigned [facility] [address] [facility] Smoking Status Start Date Stop Date Source Unknown if ever smoked [facility] Never smoked tobacco [facility] Medications Ordered Filled Start Stop [...] daily. Hospita extended 51 l release carvediloL 2023-0 Yes 25mg Q.5D [...] capsule 51 total) by l mouth daily. calcitrioL 2023-0 Yes .5ug Take 2 Metho di (ROCALTROL) 7-[address] 0.25 MCG 13:53: (0.5 mcg Hospi ta capsule 51 total) by l mouth. docusate 2022-0 Yes 250mg Take 1 Method i sodium 7-[address] (COLACE) 13:53: (250 mg Hospit a 250 MG 51 total) by l capsule mouth. gabapentin 3-0 Yes 100mg Q.5D Take 1 Meth brooke (NEURONTIN) 7-[address] 100 mg 13:53: (100 mg Hospita capsule 51 total) by l mouth 2 (two) times a day. ergocalcife 2022-0 Yes Take by Met hodi rol, 7-[address] vitamin D2, 13:53: Hospit a (VITAMIN D2 51 l ORAL) vitamin B 3-0 Yes QD Take by Metho di complex 7-[address] tablet 13:53: daily. Hospita extended [...] 51 total) by l mouth daily. aspirin 2022-0 Yes 81mg QD Take 1 Methodi (ECOTRIN) 7-06 tablet (81 st 81 MG 13:52: mg total) Hospita enteric 20 by mouth l coated daily. tablet aspirin 2022-0 Yes 81mg QD Take 1 Methodi (ECOTRIN) 7-06 tablet (81 st 81 MG 13:52: mg total) Hospita enteric 20 by mouth l coated daily. tablet Xarelto 2.5 2022-0 Yes TAKE 1 Meth brooke mg tablet 6-[address] tablet 00:00: MOUTH Hospita 00 TWICE l DAILY FOR 6 MONTHS Xarelto 2.5 2022-0 Yes TAKE 1 Meth brooke mg tablet 6-[address] tablet 00:00: MOUTH Hospita 00 TWICE l DAILY FOR 6 MONTHS calcitrioL 2022-0 Yes .5ug Take 2 Metho di (ROCALTROL) [...] mouth 2 (two) times a day. ergocalcife 0 Yes Take by Met kota rol, 4-[address] vitamin D2, 13:11: [...] (two) times a day with meals. tadalafil 2022-0 Yes 40mg Take 2 Method i (ADCIRCA, 4-[address] CIALIS) 20 13:11: (40 mg Hospi ta mg tablet 52 total) by l mouth as needed. omeprazole 2022-0 Yes 20mg QD Take 1 Metho di (PriLOSEC) 4-[address] 20 MG 13:11: (20 mg Hospita capsule 52 total) by l mouth daily. calcitrioL 202-0 Yes .5ug Take 2 Metho di (ROCALTROL) 4-[address] 0.25 MCG 13:11: (0.5 mcg Hospi ta capsule 52 total) by l mouth. docusate 202-0 Yes 250mg Take 1 Method i sodium 4-[address] (COLACE) 13:11: (250 mg Hospit a 250 MG 52 total) by l capsule mouth. gabapentin 2022-0 Yes 100mg Q.5D Take 1 Meth brooke (NEURONTIN) 4-[address] 100 mg 13:11: (100 mg Hospita capsule 52 total) by l mouth 2 (two) times a day. ergocalcife 2022-0 Yes Take by Met kota rol, 4-[address] vitamin D2, 13:11: [...] (two) times a day with meals. tadalafil 2022-0 Yes 40mg Take 2 Method i (ADCIRCA, 4-[address] CIALIS) 20 13:11: (40 mg Hospi ta mg tablet 52 total) by l mouth as needed. omeprazole 2022-0 Yes 20mg QD Take 1 Metho di (PriLOSEC) 4-[address] 20 MG 13:11: (20 mg Hospita capsule 52 total) by l mouth daily. calcitrioL 3-0 Yes .5ug Take 2 Metho di (ROCALTROL) 1-[address] 0.25 MCG 09:51: (0.5 mcg Hospi ta capsule 57 total) by l mouth. docusate 202-0 Yes 250mg Take 1 Method i sodium [...] 2 Method i (ADCIRCA, -[address] [facility]) 20 09:51: (40 mg Hospi ta mg [...] day. ergocalcife 2021-04 Yes Take by Met geneti rol, 0-[address] vitamin D2, 15:04: [...] Yes 250mg Take 1 Method i sodium - capsule st (COLACE) 17:25: (250 mg Hospit a 250 MG 59 total) by l capsule mouth. gabapentin Yes 100mg Q.5D Take 1 Meth brooke (NEURONTIN) -[address] 100 mg 17:25: (100 mg Hospita capsule 59 total) by l mouth 2 (two) times a day. ergocalcife Yes Take by Met kota puentes, 9-[address] vitamin D2, 17:25: Hospit a (VITAMIN D2 59 l ORAL) vitamin B Yes QD Take by Metho di complex 01-[address] tablet 17:25: daily. Hospita extended 59 l release traMADoL 2021- [place] [id number] 50mg Q6H Take 1 Metho di (Ultram) 50 01-09-24 tablet (50 s t mg tablet 00:00: 04:59 mg total) Ho spita 00 :00 by mouth l every 6 (six) hours as needed for moderate pain for up to 2 days .acute pain. traMADoL 2021- No [id number] 50mg Q6H Take 1 Metho di (Ultram) 50 01-09-24 tablet (50 s t mg tablet 00:00: 04:59 mg total) Ho spita 00 :00 by mouth l every 6 (six) hours as needed for moderate pain for up to 2 [place] [id number] 50mg Q6H Take 1 Metho di (Ultram) 50 9-24 tablet (50 s t mg tablet 00:00: 04:59 mg total) Ho spita 00 :00 by mouth l every 6 (six) hours as needed for moderate pain for up to 2 days .acute pain. traMADoL 2021- No [id number] 50mg Q6H Take 1 Metho di (Ultram) 50 01-0924 tablet (50 s t mg tablet 00:00: 04:59 mg total) Ho spita 00 :00 by mouth l every 6 (six) hours as needed for moderate pain for up to 2 days .acute pain. traMADoL [id number] 50mg Q6H Take 1 Metho di (Ultram) 50 01-0924 tablet (50 s t mg tablet 00:00: 04:59 mg total) Ho spita 00 :00 by mouth l every 6 (six) hours as needed for moderate pain for up to 2 days .acute pain. traMADoL [id number] 50mg Q6H Take 1 Metho di (Ultram) 50 01-0924 tablet (50 s t mg tablet 00:00: 04:59 mg total) Ho spita 00 :00 by mouth l every 6 (six) hours as needed for moderate pain for up to 2 days .acute pain. traMAD[place] 2021- [place] [id number] 50mg Q6H Take 1 Metho di (Ultram) 50 01-09-24 tablet (50 s t mg tablet 00:00: 04:59 mg total) Ho spita 00 :00 by mouth l every 6 (six) hours as needed for moderate pain for up to 2 days .acute pain. traMADoL 2021- [id number] 50mg Q6H Take 1 Metho di (Ultram) 50 01-09-24 tablet (50 s t mg tablet 00:00: 04:59 mg total) Ho spita 00 :00 by mouth l every 6 (six) hours as needed for moderate pain for up to 2 days .acute pain. traMADoL 2021- [place] [id number] 50mg Q6H Take 1 Metho di (Ultram) [...] 49 :00 total) by l mouth. carvediloL 2021-0 2021- No 25mg Take 1 [...] 37 :00 by mouth. l carvediloL 2021-0 2- No 25mg Take 1 Meth brooke (COREG) [...] 25 Meth brooke GLARGINE 12[facility]20[facility]59 under the Hos k[facility]all 300 unit/mL 00 :00 skin l (1.5 mL) daily. insulin pen subcutaneou s pen insulin 2022- No 25U QD Inject 25 Meth brooke GLARGINE 12-20-[address] [facility] 00:00: 04:59 under the Hos k[place]all 300 unit/mL 00 :00 skin l (1.5 mL) daily. insulin pen subcutaneou s pen insulin 2021-2022- No 25U QD Inject 25 Meth brooke GLARGINE 12-20- Units [facility] 00:00: 04:59 under the Hos k[place]all 300 unit/mL 00 :00 skin l (1.5 mL) daily. insulin pen subcutaneou s pen insulin 2022- No 25U QD Inject 25 Meth brooke GLARGINE 12-[address] ([facility]) 00:00: 04:59 under the Hos k[place]all 300 unit/mL 00 :00 skin l (1.5 mL) daily. insulin pen subcutaneou s pen furosemide 2022-0 Yes 40mg Q.5D Take 1 [...] 2 l (two) times a day. albuterol 0 Yes [id number] 2{puff} Inhale 2 Univers 90 1-22 Puffs ity of mcg/actuati 00:00: every 4 Kj as on inhaler 00 (four) Medical hours as Branch needed for Wheezing or Shortness of Breath. proMETHazin 0 Yes [id number] 25mg Take 1 Univers e 25 mg 1-22 tablet by ity of tablet 00:00: mouth [place] 00 every 6 Medical (six) Branch hours as needed for Nausea and Vomiting (N/V). albuterol 2021-0 Yes [id number] 2{puff} Inhale 2 Univers 90 1-22 Puffs ity of mcg/actuati 00:00: every 4 Kj as on inhaler 00 (four) Medical hours as Branch needed for Wheezing or Shortness of Breath. proMETHazin 2021-0 Yes [id number] 25mg Take 1 Univers e 25 mg 1-22 tablet by ity of tablet 00:00: mouth [place] 00 every 6 Medical (six) Branch hours as needed for Nausea and Vomiting (N/V). amoxicillin 2021- No [id number] 1{tbl} Take 1 Univers -clavulanat 05-1230 tablet [...] days. Indication s: COUGH amoxicillin 2021- No [id number] 1{tbl} Take 1 Univers -clavulanat 05-12 tablet [...] Systolic blood 2021-05-12 134 mm[Hg] [facility] 14:46:00 [facility] Diastolic blood 2021-05-12 66 mm[Hg] [place] o f pressure 14:46:00 [facility] Heart rate 2021-05-12 118 /min [facility] 14:46:00 [facility] Body temperature 2021-05-12 37.33 Chey [facility] 14:46:00 [facility] Respiratory rate 2021-05-12 22 /min [facility] 14:46:00 [facility] Body weight 2021-05-12 102.059 kg [facility] 14:46:00 [facility] Oxygen saturation 2021-05-12 100 /min [facility] in Arterial blood 14:46:00 [facility] by Pulse oximetry Tiff Systolic blood 2022-10-24 168 mm[Hg] [facility] pressure 18:50:00 [facility] Diastolic blood 2022-10-24 81 mm[Hg] [facility] pressure 18:50:00 Hospital Heart rate 2022-10-24 89 /min [facility] 18:50:00 Hospital Body temperature 2022-10-24 36.44 Chey [facility] 18:50:00 Hospital Body height 2022-10-24 172.7 cm [facility] 18:50:00 Hospital Body weight 2022-10-24 107.049 kg [facility] 18:50:00 Hospital BMI 2022-10-24 35.88 kg/m2 [facility] 18:50:00 Hospital Oxygen saturation 2022-10-24 96 /min [facility] in Arterial blood 18:50:00 Hospital by Pulse oximetry Systolic blood 2022-07-23 149 mm[Hg] [facility] pressure 18:08:00 Hospital Diastolic blood 2022-07-23 87 mm[Hg] [facility] pressure 18:08:00 Hospital Heart rate 2022-07-23 84 /min [facility] 18:08:00 [facility] Body temperature 2022-07-23 36.78 Chey [facility] 18:08:00 Hospital Body height 2022-07-23 172.7 cm [facility] 18:08:00 Hospital Body weight 2022-07-23 98.521 kg [facility] 18:08:00 Hospital BMI 2022-07-23 33.03 kg/m2 [facility] 18:08:00 Hospital Oxygen saturation 2022-07-23 97 /min [facility] in Arterial blood 18:08:00 Hospital by Pulse oximetry Systolic blood 2022-04-23 155 mm[Hg] did not take [facility] pressure 15:38:00 blood pressure Hospital medication Diastolic blood 2022-04-23 88 mm[Hg] did not take [facility] pressure 15:38:00 blood pressure Hospital medication Heart rate 2022-04-23 92 /min [facility] 15:38:00 Hospital Body temperature 2022-04-23 36.67 Chey [facility] 15:38:00 Hospital Body height 2022-04-23 172.7 cm [facility] 15:38:00 Hospital Body weight 2022-04-23 97.433 kg [facility] 15:38:00 Hospital BMI 2022-04-23 32.66 kg/m2 [facility] 15:38:00 Hospital Oxygen saturation 2022-04-23 98 /min [facility] in Arterial blood 15:38:00 Hospital by Pulse oximetry Systolic blood 2022-02-07 182 mm[Hg] [facility] pressure 20:01:00 Hospital Diastolic blood 2022-02-07 92 mm[Hg] [facility] pressure 20:01:00 Hospital Heart rate 2022-02-07 89 /min [facility] 20:01:00 Hospital Body temperature 2022-02-07 36.44 Chey [facility] 20:01:00 Hospital Body height 2022-02-07 172.7 cm [facility] 20:01:00 Hospital Body weight 2022-02-07 107.049 kg [facility] 20:01:00 [facility] BMI 2022-02-07 35.88 kg/m2 [facility] 20:01:00 Hospital Oxygen saturation 2022-02-07 98 /min [facility] in Arterial blood 20:01:00 Hospital by Pulse oximetry Systolic blood 2022-01-09 147 mm[Hg] [facility] pressure 21:30:00 Hospital Diastolic blood 2022-01-09 85 mm[Hg] [facility] pressure 21:30:00 Hospital Heart rate 2022-01-09 92 /min [facility] 21:30:00 Hospital Body temperature 2022-01-09 36.56 Chey [facility] 21:30:00 Hospital Oxygen saturation 2022-01-09 99 /min [facility] in Arterial blood 21:30:00 Hospital by Pulse oximetry Respiratory rate 2022-01-09 18 /min [facility] 21:30:00 Hospital Body height 2022-01-09 172.7 cm [facility] 13:28:00 Hospital Body weight 2022-01-09 103.874 kg [facility] 13:28:00 [facility] BMI 2022-01-09 34.82 kg/m2 [facility] 13:28:00 Hospital Procedures Procedure Date / Time Performing Clinician Source Performed US CAROTID DUPLEX 2022-04-11 18:00[facility] 2022-01-09 20:58:00 Dyllan Albert spital POC GLUCOSE 2022-01-09 20:02:00 Dyllan Albert spital [place] AN ELECTIVE 2022-01-09 17:35:00 Carolyn Solorzano spital SUPRAGLOTTIC AIRWAY Donna ODONNELL, AV FISTULA 2022-01-09 17:26:00 Dyllan Albert [facility] ESTIMATED GFR 2022-01-09 13:43:00 Dyllan Albert spital POC PANEL 2022-01-09 13:43:00 Dyllan Albert spital ABO AND RH CONFIRMATION 2022-01-09 13:40:[address] [facility] BY PROTOCOL XR CHEST 2 VW 2022-01-07 15:20:51 Dyllan Albert susie ECG PRE/POST OP 2022-01-07 14:56:02 [facility] 2022-01-07 14:34:00 Dyllan Albert [facility] RT-PCR URINE CULTURE 2022-01-07 14:33:00 Dyllan Albert [facility] URINALYSIS SCREEN AND 2022-01-07 14:33:00 Shahana [facility] MICROSCOPY, WITH REFLEX TO CULTURE COMPREHENSIVE METABOLIC 2022-01-07 [facility] ESTIMATED GFR 2022-01-07 14:33:00 Catia Merino [facility] Ramon Coleman PARTIAL THROMBOPLASTIN 2022-01-07 14:05:00 Shahana [facility] TIME (PTT) PROTHROMBIN TIME WITH INR 2022-01-07 14:05:00 Shahana [facility] CBC WITH PLATELET AND 2022-01-07 14:05:00 Shahana [facility] DIFFERENTIAL TYPE AND SCREEN 2022-01-07 14:05:00 Dyllan Albert [facility] HEMOGLOBIN A1C 2022-01-07 14:05:00 Catia Merino [facility] Ramon Coleman HEPATITIS B SURFACE 2021-09-06 05:47:00 [facility] ANTIGEN Center HEPATITIS B SURFACE 2021-09-06 05:47:00 [facility] ANTIBODY Center HEPATITIS B CORE 2021-09-06 05:47:00 [facility] ANTIBODY, IGM Center XR CHEST 2 VW 2021-05-12 16:27:08 Turner Garcia [facility] RAPID INFLUENZA A/B 2021-05-12 15:13:00 Turner Garcia [facility] NOTICE OF PRIVACY 2021-05-12 14:43:20 Doctor Unassigned, [facility] PRACTICES [facility] CONSENT/REFUSAL FOR 2021-05-12 14:43:06 [facility] Plan of Care Planned Activity Planned Date Details Comments Source Future Scheduled 2022-12-[address] [facility] Test 00:00:00 (Season Ended) [code = Medic al Center INFLUENZA VACCINE (Season Ended)] Future Scheduled 2022-12-[address] [facility] Test 00:00:00 (Season Ended) [code = Medic al Center INFLUENZA VACCINE (Season Ended)] Future Scheduled 2022-10-25 Screening for [facility] Test 16:31:09 malignant neoplasm of colon (procedure) [code = 491490104] Future Scheduled 2022-10-25 Screening for [facility] Hospital Test 16:31:09 malignant neoplasm of colon (procedure) [code = 399364893] Future Scheduled 2022-10-25 Screening for [facility] Hospital Test 16:31:09 malignant neoplasm of colon (procedure) [code = 408617229] Future Scheduled 2022-10-25 Pneumococcal Vaccine: [facility] Hospital Test 16:31:09 Pediatrics (0 to 5 Years) and At-Risk Patients (6 to 64 Years) (1 - PCV) [code = Pneumococcal Vaccine: Pediatrics (0 to 5 Years) and At-Risk Patients (6 to 64 Years) (1 - PCV)] Future Scheduled 2022-10-25 Hepatitis C screening [facility] Hospital Test 16:31:09 (procedure) [code = 972395381] Future Scheduled 2022-10-25 [facility] Moderna series) [code = COVID-19 VACCINE (3 - Moderna series)] Future Scheduled 2022-10-25 Screening for [facility] Test 16:31:09 malignant neoplasm of colon (procedure) [code = 536815340] Future Scheduled 2022-10-25 Screening for [facility] Hospital Test 16:31:09 malignant neoplasm of colon (procedure) [code = 130868863] Future Scheduled 2022-10-25 INFLUENZA VACCINE [facility] Test 16:31:09 [code = INFLUENZA VACCINE] Future Scheduled 2022-10-25 Screening for [facility] Hospital Test 16:31:09 malignant neoplasm of colon (procedure) [code = 802373606] Future Scheduled 2022-10-25 Screening for [facility] Hospital Test 16:31:09 malignant neoplasm of colon (procedure) [code = 676671113] Future Scheduled 2022-10-25 Screening for [facility] Hospital Test 16:31:09 malignant neoplasm of colon (procedure) [code = 846125050] Future Scheduled 2022-10-25 Pneumococcal Vaccine: [facility] Test 16:31:09 Pediatrics (0 to 5 Years) and At-Risk Patients (6 to 64 Years) (1 - PCV) [code = Pneumococcal Vaccine: Pediatrics (0 to 5 Years) and At-Risk Patients (6 to 64 Years) (1 - PCV)] Future Scheduled 2022-10-25 Hepatitis C screening [facility] Test 16:31:09 (procedure) [code = 299756557] Future Scheduled 2022-10-25 COVID-19 VACCINE (3 - [facility] Test 16:31:09 Moderna series) [code = COVID-19 VACCINE (3 - Moderna series)] Future Scheduled 2022-10-25 Screening for [facility] Test 16:31:09 malignant neoplasm of colon (procedure) [code = 102534543] Future Scheduled 2022-10-25 Screening for [facility] Hospital Test 16:31:09 malignant neoplasm of colon (procedure) [code = 486252424] Future Scheduled 2022-10-25 INFLUENZA VACCINE [facility] Test 16:31:09 [code = INFLUENZA VACCINE] Future Scheduled 2022-09-28 Screening for [facility] Test 22:18:06 malignant neoplasm of colon (procedure) [code = 479358067] Future Scheduled 2022-09-28 Screening for [facility] Hospital Test 22:18:06 malignant neoplasm of colon (procedure) [code = 397743177] Future Scheduled 2022-09-28 Screening for [facility] Hospital Test 22:18:06 malignant neoplasm of colon (procedure) [code = 759607905] Future Scheduled 2022-09-28 Pneumococcal Vaccine: [facility] Test 22:18:06 Pediatrics (0 to 5 Years) and At-Risk Patients (6 to 64 Years) (1 - PCV) [code = Pneumococcal Vaccine: Pediatrics (0 to 5 Years) and At-Risk Patients (6 to 64 Years) (1 - PCV)] Future Scheduled 2022-09-28 Hepatitis C screening [facility] Hospital Test 22:18:06 (procedure) [code = 243879318] Future Scheduled 2022-09-28 COVID-19 VACCINE (3 - [facility] Hospital Test 22:18:06 Moderna series) [code = COVID-19 VACCINE (3 - Moderna series)] Future Scheduled 2022-09-28 Screening for [facility] Test 22:18:06 malignant neoplasm of colon (procedure) [code = 918494825] Future Scheduled 2022-09-28 Screening for [facility] Hospital Test 22:18:06 malignant neoplasm of colon (procedure) [code = 193642458] Future Scheduled 2022-09-28 INFLUENZA VACCINE Method is Hospital Test 22:18:06 [code = INFLUENZA VACCINE] Future Scheduled 2022-07-23 Pneumococcal Vaccine: [facility] Test 13:39:42 Pediatrics (0 to 5 Years) and At-Risk Patients (6 to 64 Years) (1 - PCV) [code = Pneumococcal Vaccine: Pediatrics (0 to 5 Years) and At-Risk Patients (6 to 64 Years) (1 - PCV)] Future Scheduled 2022-07-23 Hepatitis C screening [facility] Hospital Test 13:39:42 (procedure) [code = 577794859] Future Scheduled 2022-07-23 COVID-19 VACCINE (3 - [facility] Test 13:39:42 Booster for Moderna series) [code = COVID-19 VACCINE (3 - Booster for Moderna series)] Future Scheduled 2022-07-23 COLONOSCOPY SCREENING [facility] Test 13:39:42 [code = COLONOSCOPY SCREENING] Future Scheduled 2022-07-23 INFLUENZA VACCINE Method [facility] Hospital Test 13:39:42 [code = INFLUENZA VACCINE] Future Scheduled 2022-06-16 COVID-19 VACCINE (#1) [facility] Hospital Test 21:38:44 [code = COVID-19 VACCINE (#1)] Future Scheduled 2022-06-16 Pneumococcal Vaccine: [facility] Test 21:38:44 Pediatrics (0 to 5 Years) and At-Risk Patients (6 to 64 Years) (1 - PCV) [code = Pneumococcal Vaccine: Pediatrics (0 to 5 Years) and At-Risk Patients (6 to 64 Years) (1 - PCV)] Future Scheduled 2022-06-16 Hepatitis C screening [facility] Hospital Test 21:38:44 (procedure) [code = 184797004] Future Scheduled 2022-06-[address] [facility] Hospital Test 21:38:44 [code = COLONOSCOPY SCREENING] Future Scheduled 2022-06-16 INFLUENZA VACCINE Method is Hospital Test 21:38:44 [code = INFLUENZA VACCINE] [...] Future Scheduled 2022-02-28 HEPATITIS B VACCINES Met [facility] Hospital Test 10:00:19 (1 of 3 - 3-dose series) [code = HEPATITIS B VACCINES (1 of 3 - 3-dose series)] Future Scheduled 2022-02-28 COVID-19 VACCINE (#1) [facility] Test 10:00:19 [code = COVID-19 VACCINE (#1)] Future Scheduled 2022-02-28 Pneumococcal Vaccine: [facility] Hospital Test 10:00:19 Pediatrics (0 to 5 Years) and At-Risk Patients (6 to 64 Years) (1 - PCV) [code = Pneumococcal Vaccine: Pediatrics (0 to 5 Years) and At-Risk Patients (6 to 64 Years) (1 - PCV)] Future Scheduled 2022-02-28 Hepatitis C screening [facility] Hospital Test 10:00:19 (procedure) [code = 951349539] Future Scheduled 2022-02-28 COLONOSCOPY SCREENING [facility] Test 10:00:19 [code = COLONOSCOPY SCREENING] Future Scheduled 2022-02-28 INFLUENZA VACCINE Method [facility] Hospital Test 10:00:19 [code = INFLUENZA VACCINE] Future Scheduled 2022-02-12 HEPATITIS B VACCINES Met [facility] Test 07:56:41 (1 of 3 - 3-dose series) [code = HEPATITIS B VACCINES (1 of 3 - 3-dose series)] Future Scheduled 2022-02-12 COVID-19 VACCINE (#1) [facility] Test 07:56:41 [code = COVID-19 VACCINE (#1)] Future Scheduled 2022-02-12 Pneumococcal Vaccine: [facility] Test 07:56:41 Pediatrics (0 to 5 Years) and At-Risk Patients (6 to 64 Years) (1 - PCV) [code = Pneumococcal Vaccine: Pediatrics (0 to 5 Years) and At-Risk Patients (6 to 64 Years) (1 - PCV)] Future Scheduled 2022-02-12 Hepatitis C screening [facility] Test 07:56:41 (procedure) [code = 786365714] Future Scheduled 2022-02-12 COLONOSCOPY SCREENING [facility] Test 07:56:41 [code = COLONOSCOPY SCREENING] Future Scheduled 2022-02-12 INFLUENZA VACCINE Method [facility] Test 07:56:41 [code = INFLUENZA VACCINE] Future Scheduled 2022-02-07 HEPATITIS B VACCINES Met [facility] Test 15:27:38 (1 of 3 - 3-dose series) [code = HEPATITIS B VACCINES (1 of 3 - 3-dose series)] Future Scheduled 2022-02-07 COVID-19 VACCINE (#1) [facility] Test 15:27:38 [code = COVID-19 VACCINE (#1)] Future Scheduled 2022-02-07 Pneumococcal Vaccine: [facility] Test 15:27:38 Pediatrics (0 to 5 Years) and At-Risk Patients (6 to 64 Years) (1 - PCV) [code = Pneumococcal Vaccine: Pediatrics (0 to 5 Years) and At-Risk Patients (6 to 64 Years) (1 - PCV)] Future Scheduled 2022-02-07 Hepatitis C screening [facility] Test 15:27:38 (procedure) [code = 534437570] Future Scheduled 2022-02-07 COLONOSCOPY SCREENING [facility] Test 15:27:38 [code = COLONOSCOPY SCREENING] Future Scheduled 2022-02-07 INFLUENZA VACCINE Method [facility] Test 15:27:38 [code = INFLUENZA VACCINE] Future Scheduled 2022-01-25 HEPATITIS B VACCINES Met [facility] Test 11:11:15 (1 of 3 - 3-dose series) [code = HEPATITIS B VACCINES (1 of 3 - 3-dose series)] Future Scheduled 2022-01-25 COVID-19 VACCINE (#1) [facility] Test 11:11:15 [code = COVID-19 VACCINE (#1)] Future Scheduled 2022-01-25 Pneumococcal Vaccine: [facility] Test 11:11:15 Pediatrics (0 to 5 Years) and At-Risk Patients (6 to 64 Years) (1 - PCV) [code = Pneumococcal Vaccine: Pediatrics (0 to 5 Years) and At-Risk Patients (6 to 64 Years) (1 - PCV)] Future Scheduled 2022-01-25 Hepatitis C screening [facility] Test 11:11:15 (procedure) [code = 420615515] Future Scheduled 2022-01-25 COLONOSCOPY SCREENING [facility] Test 11:11:15 [code = COLONOSCOPY [...] Test 00:00:00 (procedure) [code = Medical Center 49874895] Future Scheduled [address] [facility] Test 00:00:00 (procedure) [code = Medical Center 02849527] Future Scheduled [address] [facility] Test 00:00:00 (procedure) [code = Medical Center 88326784] Future Scheduled [address] [facility] Test 00:00:00 (procedure) [code = Medical Center 14219416] Future Scheduled [address] [facility] Test 00:00:00 (procedure) [code = Medical Center 60802325] Future Scheduled [address] [facility] Test 00:00:00 (procedure) [code = Medical [place] 38306972] Future Scheduled [address] [facility] Test 00:00:00 (procedure) [code = Medical [place] 67264137] Future Scheduled [address] [facility] Test 00:00:00 (procedure) [code = Medical Center 68792669] Future Scheduled 1995 DTAP/TDAP/TD [facility]ACCINES [facility] 00:[facility]:00 [code = COVID-[address] VACCINE (#1)] Future Scheduled 1976 COVID-19 [...] [facility] l Center colon (procedure) [code = 949922110] Future Scheduled [address] [facility] ne[facility] of [facility] Center colon (procedure) [code = 578161813] Future Scheduled [address] [facility] Test 00:00:00 [facility] colon (procedure) [code = 514544078] Future Scheduled [address] [facility] Test 00:00:[facility] colon (procedure) [code = 928246493] Future Scheduled 1976 Sigmoidoscopy [facility]] Medical Bon r Future Scheduled [address] [facility] Test 00:00:00 (combo) [code = CT Medical C enter Colonography (combo)] Future Scheduled [address] [facility] Test 00:00:[facility] ne[facility] Center colon (procedure) [code = 258143622] Future Scheduled [address] [facility] Test 00:[facility] colon (procedure) [code = 120818585] Future Scheduled [address] [facility] Test 00:00:00 [facility] Center colon (procedure) [code = 636254488] Future Scheduled [address] [facility] Test 00:00:00 malignant neoplasm of [facility] Center colon (procedure) [code = 472311061] Future Scheduled 1976 [facility]oidoscopy [facility]] Medical Chirage r Future Scheduled [address] [facility] Test 00:00:00 (combo) [code = CT Medical C enter Colonography (combo)] Future Scheduled [address] [facility] Test 00:00:00 malignant neoplasm of [facility] Center colon (procedure) [code = 345127045] Future Scheduled [address] [facility] Test 00:00:00 malignant neoplasm of [facility] Center colon (procedure) [code = 640177157] Future Scheduled [address] [facility] Test 00:00:00 malignant neoplasm of [facility] Center colon (procedure) [code = 738307413] Future Scheduled [address] [facility] Test 00:00:00 malignant neoplasm of [facility] Center colon (procedure) [code = 500923215] Future Scheduled 1976 [facility]oscopy [facility]] Medical Chirage r Future Scheduled [address] [facility] Test 00:00:00 (combo) [code = CT Medical C enter Colonography (combo)] Future Scheduled [address] [facility] Test 00:00:00 malignant neoplasm of [facility] Center colon (procedure) [code = 974580749] Future Scheduled [address] [facility] Test 00:00:00 malignant neoplasm of [facility] Center colon (procedure) [code = 707663909] Future Scheduled [address] [facility] Test 00:00:00 malignant neoplasm of [facility] Center colon (procedure) [code = 929776776] Future Scheduled [address] [facility] Test 00:00:00 malignant neoplasm of [facility] Center colon (procedure) [code = 015166484] Future Scheduled 1976 S[facility]oidoscopy [facility]] Medical Chirage r Future Scheduled [address] [facility] Test 00:00:00 (combo) [code = CT Medical C enter Colonography (combo)] Future Scheduled [address] [facility] Test 00:00:00 malignant neoplasm of [facility] Center colon (procedure) [code = 484711193] Future Scheduled [address] [facility] Test 00:00:00 malignant neoplasm of [facility] Center colon (procedure) [code = 987343467] Future Scheduled [address] [facility] Test 00:00:00 malignant neoplasm of [facility] Center colon (procedure) [code = 650147574] Future Scheduled [address] [facility] Test 00:00:00 malignant neoplasm of [facility] Center colon (procedure) [code = 495937566] Future Scheduled 1976 [facility]oidoscopy [facility]] Medical Bon r Future Scheduled [address] [facility] Test 00:00:00 (combo) [code = CT Medical C enter Colonography (combo)] Future Scheduled [address] [facility] Test 00:00:00 malignant neoplasm of [facility] Center colon (procedure) [code = 657770937] Future Scheduled [address] [facility] Test 00:00:00 malignant ne[facility] of [facility] Center colon (procedure) [code = 251366265] Future Scheduled [address] [facility] Test 00:00:00 malignant neoplasm of [facility] Center colon (procedure) [code = 185573301] Future Scheduled [address] [facility] Test 00:00:00 malignant neoplasm of [facility] Center colon (procedure) [code = 448226347] Future Scheduled 1976 [facility]oidoscopy [facility]] Medical Cente r Future Scheduled [address] [facility] Test 00:00:00 (combo) [code = CT Medical C enter Colonography (combo)] Future Scheduled [address] [facility] Test 00:00:00 malignant neoplasm of [facility] Center colon (procedure) [code = 066939096] Future Scheduled [address] [facility] Test 00:00:00 malignant neoplasm of [facility] Center colon (procedure) [code = 874048285] Future Scheduled [address] [facility] Test 00:00:00 malignant neoplasm of [facility] Center colon (procedure) [code = 782139778] Future Scheduled [address] [facility] Test 00:00:00 malignant neoplasm of [facility] Center colon (procedure) [code = 638953963] Future Scheduled 1976 Sigmoidoscopy [facility]code [facility]] Medical Cente r Future Scheduled [address] [facility] Test 00:00:00 (combo) [code = CT Medical C enter Colonography (combo)] Future Scheduled [address] [facility] Test 00:00:00 malignant neoplasm of [facility] Center colon (procedure) [code = 872441526] Future Scheduled [address] [facility] Test 00:00:00 malignant neoplasm of [facility] Center colon (procedure) [code = 374185547] Future Scheduled [address] [facility] Test 00:00:00 malignant neoplasm of [facility] Center colon (procedure) [code = 878421499] Future Scheduled [address] [facility] Test 00:00:00 malignant neoplasm of [facility] Center colon (procedure) [code = 487745345] Future Scheduled 1976 [facility]oid[facility]] Medical Cente r Encounters Start End Encounter Admission Attending Care Care Encounter Source Date/Time Date/Time Type Type Clinicians Facility Department ID 2022-10-24 2022-10-24 Office [place] 1.2.840.1 [id number] Methodi 13:30:00 14:37:52 Visit Rochelle Arango50.1.[address] [place] 3.430.2.7 Hosp antione .3.517498 l .8 2022-10-24 2022-10-24 Office [place] 1.2.840.1 [id number] 8413 Methodi 13:30:00 14:37:52 Visit Rochelle 11738.1.[address] [place] 3.430.2.7 Hosp antione .3.507352 l .8 2022-07-23 2022-07-23 Office Penning[place], 1.2.840.1 [id number] 9162 Methodi 13:00:00 13:40:09 Visit Rochelle 91796.1.[address] [place] 3.430.2.7 Hosp antione .3.058680 l .8 2022-07-23 2022-07-23 Office Penning[place], 1.2.840.1 [id number] 9611 Methodi 13:00:00 13:40:09 Visit Rochelle 69261.1.[address] [place] 3.430.2.7 Hosp antione .3.020024 l .8 2022-07-23 2022-07-23 Travel 1.2.840.1 1.2.572.678 5097 372587 Methodi 00:00:00 00:00:[address] 3.430.2.7 0.2.7.3.698 Ho spita .3.086994 084.8 l .8 2022-07-23 2022-07-23 Travel 1.2.840.1 1.2.621.586 0747 483760 Methodi 00:00:00 00:00:[address] 3.430.2.7 0.2.7.3.698 Ho spita .3.457374 084.8 l .8 2022-04-23 2022-04-23 Office [place]orge, 1.2.840.1 [id number] 5980 Methodi 10:00:00 10:47:08 Visit Rochelle 91722.1.[address] [place] 3.430.2.7 Hosp antione .3.061153 l .8 2022-04-23 2022-04-23 Office [place], 1.2.840.1 [id number] 7245 Methodi 10:00:00 10:47:08 Visit Rochelle 41538.1.[address] [place] 3.430.2.7 Hosp antione .3.308717 l .8 2022-04-23 2022-04-23 Travel 1.2.840.1 1.2.233.112 3576 048906 Methodi 00:00:00 00:00:[address] 3.430.2.7 0.2.7.3.698 Ho spita .3.706333 084.8 l .8 2022-04-23 2022-04-23 Travel 1.2.840.1 1.2.666.699 9178 308093 Methodi 00:00:00 00:00:[address] 3.430.2.7 0.2.7.3.698 Ho spita .3.187186 084.8 l .8 2022-04-19 2022-04-19 Telephone Gorge, 1.2.840.1 [id number] 2099 [id number] Methodi 00:00:00 00:00:[address] [place] 3.430.2.7 Hosp antione .3.883829 l .8 2022-04-19 2022-04-19 Telephone Gorge, 1.2.840.1 [id number] 2099 [id number] Methodi 00:00:00 00:00:[address] [place] 3.430.2.7 Hosp antione .3.375155 l .8 2022-04-18 2022-04-18 Telephone Omer, 1.2.840.1 [id number] Methodi 00:00:00 00:00:[address] 3.430.2.7 Hospit a .3.793360 l .8 2022-04-18 2022-04-18 Telephone Omer, 1.2.840.1 [id number] 21 [id number] Methodi 00:00:00 00:00:[address] 3.430.2.7 Hospit a .3.378387 l .8 2022-04-12 2022-04-12 Telephone Gorge, 1.2.840.1 [id number] 2099 [id number] Methodi 00:00:00 00:00:[address] [place] 3.430.2.7 Hosp antione .3.161519 l .8 2022-04-12 2022-04-12 Telephone Gorge, 1.2.840.1 [id number] 2099 [id number] Methodi 00:00:00 00:00:[address] [place] 3.430.2.7 Hosp antione .3.959321 l .8 2022-04-11 2022-04-11 Office [place], 1.2.840.1 [id number] 6006 Methodi 13:00:00 13:44:34 Visit Rochelle 53345.1.[address] [place] 3.430.2.7 Hosp antione .3.770838 l .8 2022-04-11 2022-04-11 Office [place], 1.2.840.1 [id number] 5761 Methodi 13:00:00 13:44:34 Visit Rochelle 28511.1.[address] [place] 3.430.2.7 Hosp antione .3.252320 l .8 2022-04-11 2022-04-11 Outpatient [facility] [id number] 00:00:00 00:00:[address] 2022-04-11 2022-04-11 Telephone Gorge, 1.2.840.1 [id number] 2100 090590 Methodi 00:00:00 00:00:[address] [place] 3.430.2.7 Hosp antione .3.098374 l .8 2022-04-11 2022-04-11 Travel 1.2.840.1 1.2.175.991 9062 064659 Methodi 00:00:00 00:00:[address] 3.430.2.7 0.2.7.3.698 Ho spita .3.012176 084.8 l .8 2022-04-11 2022-04-11 Telephone [place]orge, 1.2.840.1 [id number] 2099 [id number] Methodi 00:00:00 00:00:[address] [place] 3.430.2.7 Hosp antione .3.740706 l .8 2022-04-11 2022-04-11 Travel 1.2.840.1 1.2.804.237 8950 525860 Methodi 00:00:00 00:00:[address] 3.430.2.7 0.2.7.3.698 Ho spita .3.499313 084.8 l .8 2022-04-08 2022-04-08 Telephone [place]orge, 1.2.840.1 [id number] Methodi 00:00:00 00:00:[address] [place] 3.430.2.7 Hosp antione .3.390956 l .8 2022-04-08 2022-04-08 Telephone Gorge, 1.2.840.1 [id number] 2099 [id number] Methodi 00:00:00 00:00:[address] [place] 3.430.2.7 Hosp antione .3.501271 l .8 2022-04-05 2022-04-05 Telephone Jessica, 1.2.840.1 [id number] 805 [id number] Methodi 00:00:00 00:00:00 Crysandria 64178.1.1 [address] 3.430.2.7 Hospit a .3.040189 l .8 2022-04-05 2022-04-05 Telephone Jessica, 1.2.840.1 [id number] 262 [id number] Methodi 00:00:00 00:00:00 Crysandria 12855.1.1 388 s t 3.430.2.7 Hospit a .3.116800 l .8 2022-03-11 2022-03-11 Office [place]orge, 1.2.840.1 [id number] 0570 Methodi 11:30:00 11:53:30 Visit Rochelle 12655.1.[address] [place] 3.430.2.7 Hosp antione .3.483623 l .8 2022-03-11 2022-03-11 Office [place], 1.2.840.1 [id number] 9230 Methodi 11:30:00 11:53:30 Visit Rochelle 21188.1.[address] [place] 3.430.2.7 Hosp antione .3.151540 l .8 2022-02-26 2022-02-26 Telephone Shane, 1.2.840.1 [id number] 580 [id number] Methodi 00:00:00 00:00:[address] 3.430.2.7 Hospit a .3.166521 l .8 2022-02-26 2022-02-26 Telephone Shane, 1.2.840.1 [id number] 626 [id number] Methodi 00:00:00 00:00:[address] 3.430.2.7 Hospit a .3.047163 l .8 2022-02-07 2022-02-07 Office Asked, No Pcp 1.2.840.1 [id number] Methodi 15:00:00 16:33:51 Visit Rochelle Pennington 88158.1.[address] 3.430.2.7 Hospit a .3.543187 l .8 2022-02-07 2022-02-07 Office Asked, No Pcp 1.2.840.1 [id number] Methodi 15:00:00 16:33:51 Visit Rochelle Pennington 01091.1.[address] 3.430.2.7 Hospit a .3.654925 l .8 2022-02-07 2022-02-07 Travel 1.2.840.1 1.2.860.690 2479 136021 Methodi 00:00:00 00:00:[address] 3.430.2.7 0.2.7.3.698 Ho spita .3.210722 084.8 l .8 2022-02-07 2022-02-07 Travel 1.2.840.1 1.2.953.346 7118 771920 Methodi 00:00:00 00:00:[address] 3.430.2.7 0.2.7.3.698 Ho spita .3.592600 084.8 l .8 2022-02-01 2022-02-01 Telephone Katz, 1.2.840.1 [id number] Methodi 00:00:00 00:00:[address] 3.430.2.7 Hospit a .3.652760 l .8 2022-02-01 2022-02-01 Telephone Katz, 1.2.840.1 [id number] Methodi 00:00:00 00:00:[address] 3.430.2.7 Hospit a .3.841500 l .8 2022-01-25 2022-01-25 Telephone Curry, 1.2.840.1 [id number] Methodi 00:00:00 00:00:[address] 3.430.2.7 Hospit a .3.874180 l .8 2022-01-25 2022-01-25 Telephone Curry, 1.2.840.1 [id number] Methodi 00:00:00 00:00:[address] 3.430.2.7 Hospit a .3.750152 l .8 2022-01-01 2022-01-16 Office Dyllan Albert 1.2.840.1 [id number] 97309 Methodi 09:00:00 04:17:[address] 3.430.2.7 Hospit a .3.833110 l .8 2022-01-01 2022-01-16 [facility] ShahanaDyllan 1.2.840.1 [id number] 34422 92916 Methodi 09:00:00 04:17:[address] 3.430.2.7 Hospit a .3.296772 l .8 2022-01-11 2022-01-11 Telephone Omer, 1.2.840.1 [id number] 21 [id number] Methodi 00:00:00 00:00:[address] 3.430.2.7 Hospit a .3.314502 l .8 2022-01-11 2022-01-11 Telephone Tello, 1.2.840.1 [id number] 21 [id number] Methodi 00:00:00 00:00:[address] 3.430.2.7 Hospit a .3.464233 l .8 2022-01-09 2022-01-09 [facility] Dyllan Albert 1.2.840.1 [id number] 2099 [id number] Methodi 07:17:00 17:05:[address] 3.430.2.7 Hospit a .3.436804 l .8 2022-01-09 2022-01-09 [facility] Dyllan Albert 1.2.840.1 [id number] 2099 [id number] Methodi 07:17:00 17:05:[address] 3.430.2.7 Hospit a .3.608401 l .8 2022-01-09 2022-01-09 Anesthesia Carolyn Solorzano 1.2.840. 1 [id number] Methodi 12:26:00 15:04:00 Event Whitney Cano 43020.1.[address] 3.430.2.7 Hospit a .3.625629 l .8 2022-01-092022-01-09 Anesthesia Carolyn Solorzano 1.2.840. 1 [id number] Methodi 12:26:00 15:04:00 Event Whitney Cano 52888.1.[address] 3.430.2.7 Hospit a .3.247835 l .8 2022-01-09 2022-01-09 Surgery Shahana Dyllan 1.2.840.1 [id number] 26473 81618 Methodi 11:27:00 13:02:[address] 3.430.2.7 Hospit a .3.108527 l .8 2022-01-09 2022-01-09 Surgery Dyllan Albert 1.2.840.1 [id number] 64692 Methodi 11:27:00 13:02:[address] 3.430.2.7 Hospit a .3.736715 l .8 2022-01-07 2022-01-07 [facility] Shahana Dyllan 1.2.840.1 [id number] 2099 [id number] Methodi 10:05:52 23:59:[address] 3.430.2.7 Hospit a .3.579165 l .8 2022-01-07 2022-01-07 [facility] Rodney Alberty 1.2.840.1 [id number] 2099 [id number] Methodi 10:05:52 23:59:[address] 3.430.2.7 Hospit a .3.012192 l .8 2022-01-07 2022-01-07 Pre-Admiss Shahana Dyllan 1.2.840.1 [id number] 21 [id number] Methodi 09:00:00 10:00:[address] Testing 3.430.2.7 Hospit a .3.968393 l .8 2022-01-07 2022-01-07 Pre-Admiss Shahana Dyllan 1.2.840.1 [id number] 21 [id number] Methodi 09:00:00 10:00:[address] Testing 3.430.2.7 Hospit a .3.845336 l .8 2022-01-07 2022-01-07 Travel 1.2.840.1 1.2.687.090 7294 396846 Methodi 00:00:00 00:00:[address] 3.430.2.7 0.2.7.3.698 Ho spita .3.828511 084.8 l .8 2022-01-07 2022-01-07 Travel 1.2.840.1 1.2.891.167 9831 649816 Methodi 00:00:00 00:00:[address] 3.430.2.7 0.2.7.3.698 Ho spita .3.181332 084.8 l .8 2022-01-01 2022-01-01 Prep for Curry, 1.2.840.1 [id number] 2 [id number] Methodi 00:00:00 00:00:00 Surgery April 90771.1.[address] 3.430.2.7 Hospit a .3.878802 l .8 2022-01-01 2022-01-01 Prep for Curry, 1.2.840.1 [id number] 2 [id number] Methodi 00:00:00 00:00:00 Surgery April [address]93.1.[address] 3.430.2.7 Hospit a .3.598642 l .8 2021-12-26 2021-12-26 Telephone Tello, 1.2.840.1 [id number] 21 [id number] Methodi 00:00:00 00:00:[address] 3.430.2.7 Hospit a .3.202042 l .8 2021-12-26 2021-12-26 Telephone Tello, 1.2.840.1 [id number] 21 [id number] Methodi 00:00:00 00:00:[address] 3.430.2.7 Hospit a .3.081997 l .8 2021-12-25 2021-12-25 Telephone Antoinette, 1.2.840.1 [id number] Methodi 00:00:00 00:00:[address] 3.430.2.7 Hospit a .3.143188 l .8 2021-12-25 2021-12-25 Telephone Antoinette, 1.2.840.1 [id number] Methodi 00:00:00 00:00:[address] 3.430.2.7 Hospit a .3.976245 l .8 2021-09-06 2021-09-06 Lab [facility] [id number] 00:00:00 00:00:00 [facility] 2021-05-13 2021-05-13 Letter SALBADOR Cabrera 1.2.840.114 [id number] 12 [facility] 00:00:00 00:00:00 (Out) Desi Fidencio CONRAD 350.1.13.10 it [facility] 4.2.7.2.686 Kj [phone] [place] [address] [address] 2021-05-12 2021-05-12 Emergency X [facility] ERT [id number] Univers 08:47:00 11:17:00 TURNER rodriguez [facility] 2021-05-12 2021-05-12 Emergency [facility] 1.2.753.052 7520 4516 Univers 08:47:00 11:17:00 [facility] [phone] [place] [address] Branch Results Test Description Test Time Test Comments Results Result Comments Source POC glucose 2022-01-09 21:00:00 Test Item Value Reference Range Interpretation Comme nts POC glucose (test code = 214 mg/dL 65-99 H Ope rator Name: Joshua Beltran [id number]) ID: [id number] hartable: RN Notified Lab Interpretation (test code = Abnormal 70761-6) [facility] [id number] 21:00:00 Test Item Value Reference Range Interpretation Comments POC glucose (test code = 214 mg/dL 65-99 H Ope rator Name: [id number]) Joshua haywood ID: [id number] able: RN Notified Lab Interpretation (test Abnormal code = 35334-9) [facility]2022-09-21 21:00:00 Test Item Value Reference Range Interpretation Comments POC glucose (test code = 214 mg/dL 65-99 H Ope rator Name: [id number]) Joshua abbasiice ID: [id number] able: RN Notified Lab Interpretation (test Abnormal code = 52212-1) [facility]2022-09-21 21:00:00 Test Item Value Reference Range Interpretation Comments POC glucose (test code = 214 mg/dL 65-99 H Ope rator Name: [id number]) Joshua haywood ID: [id number] able: RN Notified Lab Interpretation (test Abnormal code = 74542-7) [facility]2022-09-21 21:00:00 Test Item Value Reference Range Interpretation Comments POC glucose (test code = 214 mg/dL 65-99 H Ope rator Name: [id number]) Joshua abbasiice ID: [id number] able: RN Notified Lab Interpretation (test Abnormal code = 39772-6) [facility]2022-09-21 21:00:00 Test Item Value Reference Range Interpretation Comments POC glucose (test code = 214 mg/dL 65-99 H Ope rator Name: [id number]) Joshua Rodriguez evice ID: [id number] able: RN Notified Lab Interpretation (test Abnormal code = 40189-9) [facility]2022-09-21 21:00:00 Test Item Value Reference Range Interpretation Comments POC glucose (test code = 214 mg/dL 65-99 H Ope rator Name: [id number]) Joshua abbasiice ID: [id number] able: RN Notified Lab Interpretation (test Abnormal code = 48095-1) [facility] [id number] 21:00:00 Test Item Value Reference Range Interpretation Comments POC glucose (test code = 214 mg/dL 65-99 H Ope rator Name: [id number]) Joshua haywood ID: [id number] able: RN Notified Lab Interpretation (test Abnormal code = 27205-0) [facility] [id number] 21:00:00 Test Item Value Reference Range Interpretation Comments POC glucose (test code = 214 mg/dL 65-99 H Ope rator Name: [id number]) Joshua haywood ID: [id number] able: RN Notified Lab Interpretation (test Abnormal code = 87290-2) [facility] [id number] 13:44:01 Test Item Value Reference Range Interpretation Comments POC sodium (test code = 135 mmol/L 323-369 9320-0) POC potassium (test 4.5 mmol/L 3.5-5.0 code = 6298-4) POC glucose (test code 280 mg/dL 65-99 H = 2339-0) POC creatinine (test 6.0 mg/dl 0.7-1.2 H Operato r Name: code = 41852-9) Israel Roldan ID : [id number] POC hemoglobin (test 11.9 g/dL 14.0-18.0 L code = 718-7) POC hematocrit (test 35 % 41-51 L code = 4544-3) Lab Interpretation Abnormal (test code = 88399-9) [facility] [id number] 13:44:01 Test Item Value Reference Range Interpretation Comments POC sodium (test code = 135 mmol/L 425-165 1521-0) POC potassium (test 4.5 mmol/L 3.5-5.0 code = 6298-4) POC glucose (test code 280 mg/dL 65-99 H = 2339-0) POC creatinine (test 6.0 mg/dl 0.7-1.2 H Operato r Name: code = 12192-0) Israel Roldan ID : [id number] POC hemoglobin (test 11.9 g/dL 14.0-18.0 L code = 718-7) POC hematocrit (test 35 % 41-51 L code = 4544-3) Lab Interpretation Abnormal (test code = 51022-8) [facility]2022-09-21 13:44:01 Test Item Value Reference Range Interpretation Comments POC sodium (test code = 135 mmol/L 180-989 2352-0) POC potassium (test 4.5 mmol/L 3.5-5.0 code = 6298-4) POC glucose (test code 280 mg/dL 65-99 H = 2339-0) POC creatinine (test 6.0 mg/dl 0.7-1.2 H Operato r Name: code = 35700-1) Israel Roldan ID : [id number] POC hemoglobin (test 11.9 g/dL 14.0-18.0 L code = 718-7) POC hematocrit (test 35 % 41-51 L code = 4544-3) Lab Interpretation Abnormal (test code = 48699-4) [facility]2022-09-21 13:44:01 Test Item Value Reference Range Interpretation Comments POC sodium (test code = 135 mmol/L 887-806 2100-0) POC potassium (test 4.5 mmol/L 3.5-5.0 code = 6298-4) POC glucose (test code 280 mg/dL 65-99 H = 2339-0) POC creatinine (test 6.0 mg/dl 0.7-1.2 H Operato r Name: code = 26705-8) Israel Roldan ID : [id number] POC hemoglobin (test 11.9 g/dL 14.0-18.0 L code = 718-7) POC hematocrit (test 35 % 41-51 L code = 4544-3) Lab Interpretation Abnormal (test code = 32981-7) [facility]2022-09-21 13:44:01 Test Item Value Reference Range Interpretation Comments POC sodium (test code = 135 mmol/L 454-155 1449-0) POC potassium (test 4.5 mmol/L 3.5-5.0 code = 6298-4) POC glucose (test code 280 mg/dL 65-99 H = 2339-0) POC creatinine (test 6.0 mg/dl 0.7-1.2 H Operato r Name: code = 36164-3) Wood EmscottReji ID : [id number] POC hemoglobin (test 11.9 g/dL 14.0-18.0 L code = 718-7) POC hematocrit (test 35 % 41-51 L code = 4544-3) Lab Interpretation Abnormal (test code = 57901-8) [facility]2022-09-21 13:44:01 Test Item Value Reference Range Interpretation Comments POC sodium (test code = 135 mmol/L 554-259 3862-0) POC potassium (test 4.5 mmol/L 3.5-5.0 code = 6298-4) POC glucose (test code 280 mg/dL 65-99 H = 2339-0) POC creatinine (test 6.0 mg/dl 0.7-1.2 H Operato r Name: code = 91414-1) Wood scottReji ID : [id number] POC hemoglobin (test 11.9 g/dL 14.0-18.0 L code = 718-7) POC hematocrit (test 35 % 41-51 L code = 4544-3) Lab Interpretation Abnormal (test code = 94141-1) [facility]2022-09-21 13:44:01 Test Item Value Reference Range Interpretation Comments POC sodium (test code = 135 mmol/L 327-547 9090-0) POC potassium (test 4.5 mmol/L 3.5-5.0 code = 6298-4) POC glucose (test code 280 mg/dL 65-99 H = 2339-0) POC creatinine (test 6.0 mg/dl 0.7-1.2 H Operato r Name: code = 16493-1) [facility] : [id number] POC hemoglobin (test 11.9 g/dL 14.0-18.0 L code = 718-7) POC hematocrit (test 35 % 41-51 L code = 4544-3) Lab Interpretation Abnormal (test code = 84997-1) [facility]2022-09-21 13:44:01 Test Item Value Reference Range Interpretation Comments POC sodium (test code = 135 mmol/L 373-895 9631-0) POC potassium (test 4.5 mmol/L 3.5-5 code = 6298-4) POC glucose (test code 280 mg/dL 65-99 H = 2339-0) POC creatinine (test 6.0 mg/dl 0.7-1.2 H Operato r Name: code = 60609-9) Israel Roldan ID : [id number] POC hemoglobin (test 11.9 g/dL 14-18 L code = 718-7) POC hematocrit (test 35 % 41-51 L code = 4544-3) Lab Interpretation Abnormal (test code = 91736-8) [facility] [id number] 13:44:01 Test Item Value Reference Range Interpretation Comments POC sodium (test code = 135 mmol/L 079-212 2644-0) POC potassium (test 4.5 mmol/L 3.5-5.0 code = 6298-4) POC glucose (test code 280 mg/dL 65-99 H = 2339-0) POC creatinine (test 6.0 mg/dl 0.7-1.2 H Operato r Name: code = 67641-5) Israel Roldan ID : [id number] POC hemoglobin (test 11.9 g/dL 14.0-18.0 L code = 718-7) POC hematocrit (test 35 % 41-51 L code = 4544-3) Lab Interpretation Abnormal (test code = 08627-3) [facility] [id number] 13:44:00 Test Item Value Reference Range Interpretation Comments Estimated GFR (test mL/min/1.73 m2 A Edwina amaya Units code = 04362-5) Interpretati onG1 >=90 Normal or highG 2 60-89 Mildly decrease dG3a 45-59 Mildly to moderately decr yxenjF8r 30-44 Moderatel y to severely decrea sedG4 15-29 Severely decreasedG5 <1 5 Kidney failureThe eGFR was calculated mary anne ibarra the Chronic Kidney Disease Epidemiology Collaboration ( CKD-EPI) equation. Interpretation is based on recommendati ons of the National dney [facility]-Kidn ey Disease Outcome s Quality Initiat marshall (NKF-KDOQI) pub lished in 2013. Lab Interpretation Abnormal (test code = 76346-3) [facility] [id number] 13:44:00 Test Item Value Reference Range Interpretation Comments Estimated GFR (test mL/min/1.73 m2 A Caterg ory Units code = 47145-6) Interpretati onG1 >=90 Normal or highG 2 60-89 Mildly decrease dG3a 45-59 Mildly to moderately decr hjtyvK4w 30-44 Moderatel y to severely decrea sedG4 15-29 Severely decreasedG5 <15 Kidney failureThe eGFR was calculated usin g the Chronic Kidney Disease Epidemiology Collaboration ( CKD-EPI) equation. Interpretation is based on recommendati ons of the [facility] Disease Outcome s Quality Initiat marshall ([facility]-KDOQI) pub lished in 2013. Lab Interpretation Abnormal (test code = 26731-3) [facility] [id number] 13:44:00 Test Item Value Reference Range Interpretation Comments Estimated GFR (test mL/min/1.73 m2 A Caterg ory Units code = 86098-0) Interpretati onG1 >=90 Normal or highG 2 60-89 Mildly decrease dG3a 45-59 Mildly to moderately decr utwwtM1w 30-44 Moderatel y to severely decrea sedG4 15-29 Severely decreasedG5 <15 Kidney failureThe eGFR was calculated usin g the Chronic Kidney Disease Epidemiology Collaboration ( CKD-EPI) equation. Interpretation is based on recommendati ons of the [facility] Disease Outcome s Quality Initiat marshall ([facility]-KDOQI) pub lished in 2013. Lab Interpretation Abnormal (test code = 95705-1) [facility] [id number] 13:44:00 Test Item Value Reference Range Interpretation Comments Estimated GFR (test 10 mL/min/1.73 m2 A Caterg ory Units code = 66244-9) Interpretati onG1 >=90 Normal or highG 2 60-89 Mildly decrease dG3a 45-59 Mildly to moderately decr oxjmvC1l 30-44 Moderatel y to severely decrea sedG4 15-29 Severely decreasedG5 <15 Kidney failureThe eGFR was calculated usin g the Chronic Kidney Disease Epidemiology Collaboration ( CKD-EPI) equation. Interpretation is based on recommendati ons of the [facility] Disease Outcome s Quality Initiat marshall ([facility]-KDOQI) pub lished in 2013. Lab Interpretation Abnormal (test code = 50584-5) [facility] [id number] 13:44:00 Test Item Value Reference Range Interpretation Comments Estimated GFR (test 10 mL/min/1.73 m2 A Caterg ory Units code = 28046-8) Interpretati onG1 >=90 Normal or highG 2 60-89 Mildly decrease dG3a 45-59 Mildly to moderately decr jvyuoZ5k 30-44 Moderatel y to severely decrea sedG4 15-29 Severely decreasedG5 <15 Kidney failureThe eGFR was calculated usin g the Chronic Kidney Disease Epidemiology Collaboration ( CKD-EPI) equation. Interpretation is based on recommendati ons of the [facility] Disease Outcome s Quality Initiat marshall ([facility]-KDOQI) pub lished in 2013. Lab Interpretation Abnormal (test code = 23053-0) [facility] [id number] 13:44:00 Test Item Value Reference Range Interpretation Comments Estimated GFR (test 10 mL/min/1.73 m2 A Caterg ory Units code = 23808-5) Interpretati onG1 >=90 Normal or highG 2 60-89 Mildly decrease dG3a 45-59 Mildly to moderately decr eftnrL6w 30-44 Moderatel y to severely decrea sedG4 15-29 Severely decreasedG5 <15 Kidney failureThe eGFR was calculated usin g the Chronic Kidney Disease Epidemiology Collaboration ( CKD-EPI) equation. Interpretation is based on recommendati ons of the [facility] Disease Outcome s Quality Initiat marshall (NK-KDOQI) pub lished in 2013. Lab Interpretation Abnormal (test code = 49167-3) [facility] [id number] 13:44:00 Test Item Value Reference Range Interpretation Comments Estimated GFR (test 10 mL/min/1.73 m2 A Caterg ory Units code = 77886-0) Interpretati onG1 >=90 Normal or highG 2 60-89 Mildly decrease dG3a 45-59 Mildly to moderately decr saeebS5o 30-44 Moderatel y to severely decrea sedG4 15-29 Severely decreasedG5 <15 Kidney failureThe eGFR was calculated usin g the Chronic Kidney Disease Epidemiology Collaboration ( CKD-EPI) equation. Interpretation is based on recommendati ons of the [facility] Disease Outcome s Quality Initiat marshall ([facility]-KDOQI) pub lished in 2013. Lab Interpretation Abnormal (test code = 30874-8) [facility] [id number] 13:44:00 Test Item Value Reference Range Interpretation Comments Estimated GFR (test mL/min/1.73 m2 A Caterg ory Units code = 73404-9) Interpretati onG1 >=90 Normal or highG 2 60-89 Mildly decrease dG3a 45-59 Mildly to moderately decr zqblrV5j 30-44 Moderate ly to severely decrea sedG4 15-29 Severely decreasedG5 <15 Kidney failureThe eGFR was calculated usin g the Chronic Kidney Disease Epidemiology Collaboration ( CKD-EPI) equation. Interpretation is based on recommendati ons of the [facility] Disease Outcome s Quality Initiat marshall (NK-KDOQI) pub lished in 2013. Lab Interpretation Abnormal (test code = 53447-4) [facility] [id number] 13:44:00 Test Item Value Reference Range Interpretation Comments Estimated GFR (test 10 mL/min/1.73 m2 A Caterg ory Units code = 44266-3) Interpretati onG1 >=90 Normal or highG 2 60-89 Mildly decrease dG3a 45-59 Mildly to moderately decr wnxexD9s 30-44 Moderatel y to severely decrea sedG4 15-29 Severely decreasedG5 <15 Kidney failureThe eGFR was calculated usin g the Chronic Kidney Disease Epidemiology Collaboration ( CKD-EPI) equation. Interpretation is based on recommendati ons of the [facility] Disease Outcome s Quality Initiat marshall (NK-KDOQI) pub lished in 2013. Lab Interpretation Abnormal (test code = 97020-8) [facility] [Presence] in Respiratory specimen by YESENIA with probe [id number] 17:48:52 Test Item Value Reference Range Interpretation Comments SARS-CoV-2 (COVID-19) RNA Not detected [Presence] in Respiratory specimen by YESENIA with probe detection (test code = 06933-6) Whether patient is employed in a Unknown healthcare setting (test code = 01210-6) Whether the patient has symptoms Unknown related to condition of interest (test code = 09992-7) Whether the patient was Unknown hospitalized for condition of interest (test code = 16605-6) Whether the patient was admitted Unknown to intensive care unit (ICU) for condition of interest (test code = 17707-0) Whether patient resides in a Unknown congregate care setting (test code = 47559-7) status (test code = Unknown 24863-8) Date and time of symptom onset Unknown (test code = 35016-8) [facility] Pre/Post [id number] 17:20:24 Test Item Value Reference Range Interpretation Comments Ventricular rate (test code = 253) Atrial rate (test code = 255) WA interval (test code = 266) QRSD interval [...] axis deviation-Abnormal ECG-No previous ECGs available- [facility] Pre/Post [id number] 17:20:24 Test Item Value Reference Range Interpretation Comments Ventricular rate (test code = 253) Atrial rate (test code = 255) WA interval (test code = 266) QRSD interval [...] axis deviation-Abnormal ECG-No previous ECGs available- [facility] Pre/Post [id number] 17:20:24 Test Item Value Reference Range Interpretation Comments Ventricular rate (test code = 253) Atrial rate (test code = 255) WA interval (test code = 266) QRSD interval [...] axis deviation-Abnormal ECG-No previous ECGs available- [facility] Pre/Post [id number] 17:20:24 Test Item Value Reference Range Interpretation Comments Ventricular rate 91 (test code = 253) Atrial rate (test 91 code = 255) WA interval (test 114 code = 266) QRSD [...] axis deviation-Abnormal ECG-No previous ECGs available- [facility] Pre/Post [id number] 17:20:24 Test Item Value Reference Range Interpretation Comments Ventricular rate 91 (test code = 253) Atrial rate (test 91 code = 255) WA interval (test 114 code = 266) QRSD [...] axis deviation-Abnormal ECG-No previous ECGs available- [facility] Pre/Post [id number] 17:20:24 Test Item Value Reference Range Interpretation Comments Ventricular rate 91 (test code = 253) Atrial rate (test 91 code = 255) WA interval (test 114 code = 266) QRSD [...] axis deviation-Abnormal ECG-No previous ECGs available- [facility] Pre/Post [id number] 17:20:24 Test Item Value Reference Range Interpretation Comments Ventricular rate 91 (test code = 253) Atrial rate (test 91 code = 255) WA interval (test 114 code = 266) QRSD [...] axis deviation-Abnormal ECG-No previous ECGs available- [facility] Pre/Post [id number] 17:20:24 Test Item Value Reference Range Interpretation Comments Ventricular rate (test code = 253) Atrial rate (test code = 255) WA interval (test code = 266) QRSD interval [...] axis deviation-Abnormal ECG-No previous ECGs available- [facility] Pre/Post [id number] 17:20:24 Test Item Value Reference Range Interpretation Comments Ventricular rate 91 (test code = 253) Atrial rate (test 91 code = 255) WA interval (test 114 code = 266) QRSD [...] deviation-Abnormal ECG-No previous ECGs available- [facility]2022-09-19 15:46:00 Test Item Value Reference Range Interpretation Comments Urine culture (test SEE COMMENT Bacteriu lashell screen code = 6402572) negative. [facility]2022-09-19 15:46:00 Test Item Value Reference Range Interpretation Comments Urine culture (test SEE COMMENT Bacteriu lashell screen code = 3478574) negative. [facility]2022-09-19 15:46:00 Test Item Value Reference Range Interpretation Comments Urine culture (test SEE COMMENT Bacteriu lashell screen code = 6376774) negative. [facility]2022-09-19 15:46:00 Test Item Value Reference Range Interpretation Comments Urine culture (test SEE COMMENT Bacteriu lashell screen code = 4760871) negative. [facility]2022-09-19 15:46:00 Test Item Value Reference Range Interpretation Comments Urine culture (test SEE COMMENT Bacteriu lashell screen code = 7915772) negative. [facility]2022-09-19 15:46:00 Test Item Value Reference Range Interpretation Comments Urine culture (test SEE COMMENT Bacteriu lashell screen code = 8506250) negative. [facility]2022-09-19 15:46:00 Test Item Value Reference Range Interpretation Comments Urine culture (test SEE COMMENT Bacteriu lashell screen code = 4953308) negative. [facility]2022-09-19 15:46:00 Test Item Value Reference Range Interpretation Comments Urine culture (test SEE COMMENT Bacteriu lashell screen code = 6530007) negative. [facility]2022-09-19 15:46:00 Test Item Value Reference Range Interpretation Comments Urine culture (test SEE COMMENT Bacteriu lashell screen code = 1806304) negative. [facility] B surface [id number] 22:01:34 Test Item Value Reference Range Interpretation Comments Hep B S Ab (test code See_Comment [Auto mated = 55364-3) message] The system which generated this result transmit brad reference range : <8.0 mIU/mL. Th e reference range was not used to interpret this result as normal/abnormal . TALIB (test code = TALIB) Overcoiler ID - DB Lab Interpretation Normal (test code = 93774-4) [facility] B surface [id number] 22:01:34 Test Item Value Reference Range Interpretation Comments Hep B S Ab (test code <8.0 See_Comment [Auto mated = 98463-9) message] The system which generated this result transmit brad reference range : <8.0 mIU/mL. Th e reference range was not used to interpret this result as normal/abnormal . TALIB (test code = TALIB) Overcoiler ID - DB Lab Interpretation Normal (test code = 30781-1) [facility] surface [id number] 22:01:34 Test Item Value Reference Range Interpretation Comments Hep B S Ab (test code <8.0 See_Comment [Auto mated = 63963-3) message] The system which generated this result transmit brad reference range : <8.0 mIU/mL. Th e reference range was not used to interpret this result as normal/abnormal . TALIB (test code = TALIB) Overcoiler ID - DB Lab Interpretation Normal (test code = 97406-8) [facility] B surface [id number] 22:01:34 Test Item Value Reference Range Interpretation Comments Hep B S Ab (test code <8.0 See_Comment [Auto mated = 45384-1) message] The system which generated this result transmit brad reference range : <8.0 mIU/mL. Th e reference range was not used to interpret this result as normal/abnormal . TALIB (test code = TALIB) Overcoiler ID - DB Lab Interpretation Normal (test code = 17738-6) [facility] B surface [id number] 22:01:34 Test Item Value Reference Range Interpretation Comments Hep B S Ab (test code <8.0 See_Comment [Auto mated = 27643-1) message] The system which generated this result transmit brad reference range : <8.0 mIU/mL. Th e reference range was not used to interpret this result as normal/abnormal . TALIB (test code = TALIB) Overcoiler ID - DB Lab Interpretation Normal (test code = 36762-0) [facility] surface [id number] 22:01:34 Test Item Value Reference Range Interpretation Comments Hep B S Ab (test code <8.0 See_Comment [Auto mated = 68348-6) message] The system which generated this result transmit brad reference range : <8.0 mIU/mL. Th e reference range was not used to interpret this result as normal/abnormal . TALIB (test code = TALIB) Overcoiler ID - DB Lab Interpretation Normal (test code = 30064-3) [facility] surface [id number] 22:01:34 Test Item Value Reference Range Interpretation Comments Hep B S Ab (test code <8.0 See_Comment [Auto mated = 44335-1) message] The system which generated this result transmit brad reference range : <8.0 mIU/mL. Th e reference range was not used to interpret this result as normal/abnormal . TALIB (test code = TALIB) Overcoiler ID - DB Lab Interpretation Normal (test code = 54951-0) [facility] SURFACE [id number] 22:01:34 Test Item Value Reference Range Interpretation Comments HEPATITIS B SURFACE ANTIBODY < mIU/mL <8.0 (BEAKER) (test code = 647) Overcoiler ID - [facility] B core antibody, [id number] 21:52:25 Test Item Value Reference Range Interpretation Comments Hep B C IgM (test code = Nonreactive Nonreactive 26157-4) TALIB (test code = TALIB) Overcoiler ID - DB Lab Interpretation (test Normal code = 29114-2) [facility], [id number] 21:52:25 Test Item Value Reference Range Interpretation Comments Hep B C IgM (test code = Nonreactive Nonreactive 13192-3) TALIB (test code = TALIB) Overcoiler ID - DB Lab Interpretation (test Normal code = 67688-5) [facility], [id number] 21:52:25 Test Item Value Reference Range Interpretation Comments Hep B C IgM (test code = Nonreactive Nonreactive 47212-1) TALIB (test code = TALIB) Overcoiler ID - DB Lab Interpretation (test Normal code = 54825-3) [facility] B core antibody, [id number] 21:52:25 Test Item Value Reference Range Interpretation Comments Hep B C IgM (test code = Nonreactive Nonreactive 82180-5) TALIB (test code = TALIB) Overcoiler ID - DB Lab Interpretation (test Normal code = 04687-1) [facility] B core antibody, [id number] 21:52:25 Test Item Value Reference Range Interpretation Comments Hep B C IgM (test code = Nonreactive Nonreactive 44598-0) TALIB (test code = TALIB) Overcoiler ID - DB Lab Interpretation (test Normal code = 53152-8) [facility] B core antibody, [id number] 21:52:25 Test Item Value Reference Range Interpretation Comments Hep B C IgM (test code = Nonreactive Nonreactive 34984-1) TALIB (test code = TALIB) Overcoiler ID - DB Lab Interpretation (test Normal code = 82443-9) [facility] B core antibody, [id number] 21:52:25 Test Item Value Reference Range Interpretation Comments Hep B C IgM (test code = Nonreactive Nonreactive 95566-1) TALIB (test code = TALIB) Overcoiler ID - DB Lab Interpretation (test Normal code = 26074-2) [facility] CORE ANTIBODY, [id number] 21:52:25 Test Item Value Reference Range Interpretation Comments HEPATITIS B CORE IGM ANTIBODY Nonreactive Nonreactive (BEAKER) (test code = 645) Overcoiler ID - DBHepatitis B surface [id number] 21:52:19 Test Item Value Reference Range Interpretation Comments Hepatitis B surface Nonreactive Nonreactive antigen (test code = 5195-3) TALIB (test code = TALIB) Specimen is considered negative for HBsAg. Lab Interpretation (test Normal code = 80130-7) [facility] B surface [id number] 21:52:19 Test Item Value Reference Range Interpretation Comments Hepatitis B surface Nonreactive Nonreactive antigen (test code = 5195-3) TALIB (test code = TALIB) Specimen is considered negative for HBsAg. Lab Interpretation (test Normal code = 76262-1) [facility] [id number] 21:52:19 Test Item Value Reference Range Interpretation Comments Hepatitis B surface Nonreactive Nonreactive antigen (test code = 5195-3) TALIB (test code = TALIB) Specimen is considered negative for HBsAg. Lab Interpretation (test Normal code = 39959-9) [facility] [id number] 21:52:19 Test Item Value Reference Range Interpretation Comments Hepatitis B surface Nonreactive Nonreactive antigen (test code = 5195-3) TALIB (test code = TALIB) Specimen is considered negative for HBsAg. Lab Interpretation (test Normal code = 61298-9) [facility] B surface [id number] 21:52:19 Test Item Value Reference Range Interpretation Comments Hepatitis B surface Nonreactive Nonreactive antigen (test code = 5195-3) TALIB (test code = TALIB) Specimen is considered negative for HBsAg. Lab Interpretation (test Normal code = 72267-9) [facility] [id number] 21:52:19 Test Item Value Reference Range Interpretation Comments Hepatitis B surface Nonreactive Nonreactive antigen (test code = 5195-3) TALIB (test code = TALIB) Specimen is considered negative for HBsAg. Lab Interpretation (test Normal code = 94445-5) [facility] [id number] 21:52:19 Test Item Value Reference Range Interpretation Comments Hepatitis B surface Nonreactive Nonreactive antigen (test code = 5195-3) TALIB (test code = TALIB) Specimen is considered negative for HBsAg. Lab Interpretation (test Normal code = 49323-0) [facility] [id number] 21:52:19 Test Item Value Reference Range Interpretation Comments HEPATITIS B SURFACE ANTIGEN (2) Nonreactive Nonreactive (BEAKER) (test code = 2585) Specimen is considered negative for HBsAg.
[2022-11-13 18:36] LABS: Absolute Lymphocytes (CBC) 2.3 K/uL (0.7-4.9); Hematocrit 32.9 % (39.6-49.0); Lymphocytes % 24.2 % (15.3-44.8); MCV 86.7 fL (80-100); MPV 7.7 fL (7.6-11.3)
[2022-11-13 18:40] LABS: Protime INR 1.08
[2022-11-13 19:02] LABS: Magnesium 1.8 mg/dL (1.6-2.4); Potassium 5.1 mEq/L (3.5-5.1)
[2022-11-13] MEDS ORDERED: FENTANYL CITR 100 MCG/2 ML ONE (19:16)
--- NOTE | 2022-11-13 19:32 | RAD REPORT ---
EXAM DESCRIPTION: RAD - Foot Right 3 View - 11/13/2022 7:25 pm CLINICAL HISTORY: PAIN COMPARISON: Foot Right 3 View dated 07/03/2022 FINDINGS: Mild to moderate soft tissue swelling is present. Vascular calcifications noted. No acute fracture or radiopaque foreign body seen. Large calcaneal spurs.
--- NOTE | 2022-11-13 20:07 | RAD REPORT ---
EXAM DESCRIPTION: US - Extremity Venous Uni Ltd - 11/13/2022 8:00 pm CLINICAL HISTORY: Pain;Swelling Leg swelling and edema. COMPARISON: Extrem Venous W Compress Clement dated 09/25/2021 FINDINGS: Right lower extremity venous system was interrogated with Doppler technique. Normal flow, compressibility and augmentation was noted. There is no DVT present. IMPRESSION: No evidence of right lower extremity deep venous thrombosis.
--- NOTE | 2022-11-13 20:22 | EDPHYS ---
Physician Documentation [facility] Name: Chava Pate Age: 47 yrs Sex: Male : 1975 Arrival Date: 11/13/2022 Time: 17:16 Bed 13 Private MD: ED Physician Elijah Ruiz HPI: 11/13 18:00 This 47 yrs old Male presents to ER via Ambulatory with complaints of Leg cp Swelling - right. 18:00 The patient presents with pain, that is acute, swelling. The complaints affect the cp right foot and right lower leg. Context: after stepping on unknown object. 18:00 Onset: The symptoms/episode began/occurred few days ago. cp 18:00 Modifying factors: the symptoms are aggravated by weight bearing. Associated signs and cp symptoms: Pertinent positives: calf tenderness, swelling, warmth, minimal erythema, Pertinent negatives fever, vomiting. Treatment prior to arrival includes: no previous treatment. Patient reports PMHX significant for ESRD with last dialysis yesterday. Historical: - Allergies: 17:53 No Known Allergies; aa5 - PMHx: 17:53 Diabetes - NIDDM; Dialysis; Hypertensive disorder; kidney disease; PERIPHERAL aa5 NEUROPATHY; - PSHx: 17:53 fistula L arm; aa5 17:56 right leg (for circulation problem); aa5 - Immunization history:: Adult Immunizations unknown. - Social history:: Smoking status: Patient denies any tobacco usage or history of. ROS: 18:05 Constitutional: Negative for body aches, chills, fever, poor PO intake. cp 18:05 Eyes: Negative for injury, pain, redness, and discharge. cp 18:05 ENT: Negative for drainage from ear(s), ear pain, sore throat, difficulty swallowing, difficulty handling secretions. 18:05 Cardiovascular: Negative for chest pain, edema, palpitations. 18:05 Respiratory: Negative for cough, shortness of breath, wheezing. 18:05 Abdomen/GI: Negative for abdominal pain, nausea, vomiting, and diarrhea. 18:05 MS/extremity: Positive for pain, swelling, tenderness, of the right foot and right lower leg. 18:05 Neuro: Negative for altered mental status, dizziness, headache, weakness. 18:05 All other systems are negative. Exam: 18:10 Constitutional: The patient appears in no acute distress, alert, awake, cp non-diaphoretic, non-toxic, well developed, well nourished, overweight 18:10 Head/Face: Normocephalic, atraumatic. cp 18:10 Eyes: Periorbital structures: appear normal, Conjunctiva: normal, no exudate, no injection, Sclera: no appreciated abnormality, Lids and lashes: appear normal, bilaterally. 18:10 ENT: External ear(s): are unremarkable, Nose: is normal, Mouth: Lips: moist, Oral mucosa: pink and intact, moist, Posterior pharynx: is normal, airway is patent, no erythema, no exudate. 18:10 Chest/axilla: Inspection: normal. 18:10 Cardiovascular: Rate: normal, Rhythm: regular, Edema: is not appreciated. 18:10 Respiratory: the patient does not display signs of respiratory distress, Respirations: normal, no use of accessory muscles, no retractions, labored breathing, is not present, Breath sounds: are clear throughout, no decreased breath sounds, no stridor, no wheezing. 18:10 Abdomen/GI: Inspection: abdomen appears normal, Palpation: abdomen is soft and cp non-tender, in all quadrants. 18:10 Back: pain, is absent, ROM is normal. cp 18:10 Musculoskeletal/extremity: Extremities: grossly normal except: noted in the right foot: swelling, tenderness, tenderness and superficial wound noted plantar surface proximal right great toe, mild erythema. Vital Signs: 17:53 BP 179 / 91; Pulse 88; Resp 18 S; Temp 97.8(TE); Pulse Ox 99% on R/A; Weight 106.59 kg aa5 (R); Height 5 ft. 8 in. (R); 19:14 BP 167 / 90; Pulse 85; Resp 17; Pulse Ox 99% on R/A; ll3 20:18 BP 175 / 97; Pulse 81; Resp 16; Pulse Ox 100% on R/A; ll3 17:53 Body Mass Index 35.73 (106.59 kg, 172.72 cm) aa5 MDM: 17:55 Patient medically screened. cp 18:00 Differential diagnosis: cellulitis, abscess, DVT. cp 20:20 Data reviewed: vital signs, nurses notes, lab test result(s), radiologic studies, plain cp films, ultrasound. 20:20 Consideration of Admission/Observation Escalation of care including cp admission/observation considered. I considered the following discharge prescriptions or medication management in the emergency department Medications were administered in the Emergency Department. See MAR. Care significantly affected by the following chronic conditions: Diabetes, Hypertension, Chronic Kidney Disease. Counseling: I had a detailed discussion with the patient and/or guardian regarding: the historical points, exam findings, and any diagnostic results supporting the discharge/admit diagnosis, lab results, radiology results, the need for outpatient follow up, an parcel wrapper, to return to the emergency department if symptoms worsen or persist or if there are any questions or concerns that arise at home. ED course: VSS. Will discharge to home for continued monitoring with RX for oral antibiotic. 11/13 17:57 Order name: CBC with Diff; Complete Time: 19:00 11/13 19:00 Interpretation: Normal except: RBC 3.80; HGB 11.0; HCT 32.9. 11/13 17:57 Order name: BMP; Complete Time: 20:06 11/13 20:06 Interpretation: Normal except: BUN 53; CRE 6.47; GFR 10; CA 7.5. 11/13 17:57 Order name: PT-INR; Complete Time: 19:00 11/13 17:57 Order name: Magnesium; Complete Time: 20:06 11/13 17:57 Order name: US Extremity Venous Unilateral Ltd; Complete Time: 20:08 11/13 20:08 Interpretation: Report reviewed. 11/13 19:00 Order name: XRAY Foot RIGHT 3 View; Complete Time: 20:06 11/13 20:06 Interpretation: Report reviewed. 11/13 17:57 Order name: IV Saline Lock; Complete Time: 18:25 11/13 17:57 Order name: Labs collected and sent; Complete Time: 18:25 cp Administered Medications: 19:13 Drug: fentaNYL (PF) IVP 25 mcg Route: IVP; Site: right antecubital; ll3 20:43 Follow up: Response: No adverse reaction; Marked relief of symptoms ll3 20:19 CANCELLED (Physician Discretion): Amoxicillin-Clavulanate PO 875 mg PO once cp 20:28 Drug: Rocephin IV 1 grams Route: IV; Rate: calculated rate; Site: right antecubital; ll3 20:43 Follow up: Response: No adverse reaction; IV Status: Completed infusion; IV Intake: [id number] 20:28 Drug: Doxycycline PO 100 mg Route: PO; ll3 20:43 Follow up: Response: No adverse reaction ll3 Disposition Summary: 11/13/22 20:21 Discharge Ordered Location: Home cp Problem: new cp Symptoms: have improved cp Condition: Stable cp Diagnosis - Cellulitis of right lower limb cp Followup: cp - With: Private Physician - When: 1 - 2 days - Reason: Recheck today's complaints Discharge Instructions: - Discharge Summary Sheet cp Forms: - Medication Reconciliation Form cp - Thank You Letter cp - Antibiotic Education cp - Prescription Opioid Use cp - Patient Portal Instructions cp Prescriptions: - Doxycycline Hyclate 100 mg Oral Tablet - take 1 tablet by ORAL route every 12 hours; 20 tablet; Refills: 0, Product cp Selection Permitted Signatures: Dispatcher [employer] Tanya Caal, RN RN aa5 Elijah Voss PA PA cp Citlaly Thomas RN RN ll3 Corrections: (The following items were deleted from the chart) 20:19 20:18 Amoxicillin-Clavulanate PO 875 mg PO once ordered. cp cp
--- NOTE | 2022-11-13 20:22 | ER ---
Nurse's Notes [facility] Name: Chava Pate Age: 47 yrs Sex: Male : 1975 Arrival Date: 11/13/2022 Time: 17:16 Bed 13 Private MD: Diagnosis: Cellulitis of right lower limb Presentation: 11/13 17:52 Chief complaint: Patient states: "I stepped on something a few days ago with my right aa5 foot and today I noticed swelling to my foot". Risk Assessment: Do you want to hurt yourself or someone else? Patient reports no desire to harm self or others. Onset of symptoms was November 13, 2022. 17:52 Acuity: EDINSON 3 aa5 17:53 Coronavirus screen: At this time, the client does not indicate any symptoms associated aa5 with coronavirus-19. Ebola Screen: Patient denies travel to an Ebola-affected area in the 21 days before illness onset. 17:53 Method Of Arrival: Ambulatory aa5 17:53 Initial Sepsis Screen: Does the patient meet any 2 criteria? No. Patient's initial aa5 sepsis screen is negative. Does the patient have a suspected source of infection? No. Patient's initial sepsis screen is negative. Historical: - Allergies: 17:53 No Known Allergies; aa5 - PMHx: 17:53 Diabetes - NIDDM; Dialysis; Hypertensive disorder; kidney disease; PERIPHERAL aa5 NEUROPATHY; - PSHx: 17:53 fistula L arm; aa5 17:56 right leg (for circulation problem); aa5 - Immunization history:: Adult Immunizations unknown. - Social history:: Smoking status: Patient denies any tobacco usage or history of. Screenin:53 [facility] ED Fall Risk Assessment (Adult) History of falling in the last 3 months, kc6 including since admission No falls in past 3 months (0 pts) Confusion or Disorientation No (0 pts) Intoxicated or Sedated No (0 pts) Impaired Gait No (0 pts) Mobility Assist Device Used No (0 pt) Altered Elimination No (0 pt) Score/Fall Risk Level 0 - 2 = Low Risk. Abuse screen: Denies threats or abuse. Denies injuries from another. Nutritional screening: No deficits noted. Tuberculosis screening: No symptoms or risk factors identified. Assessment: 18:53 General: Appears in no apparent distress. comfortable, Behavior is calm, cooperative, kc6 appropriate for age. Pain: Denies pain. Neuro: Level of Consciousness is awake, alert, obeys commands, Oriented to person, place, time, situation, Appropriate for age. Cardiovascular: Heart tones S1 S2 present Capillary refill < 3 seconds Edema is 2+ to right midcalf and right ankle Chest pain is denied Dialysis shunt: in the left arm, with palpable thrill, with auscultated bruit, with no erythema, with no edema, no bleeding noted. Respiratory: Airway is patent Trachea midline Respiratory effort is even, unlabored, Respiratory pattern is regular, symmetrical. GI: No signs and/or symptoms were reported involving the gastrointestinal system. : No signs and/or symptoms were reported regarding the genitourinary system. EENT: No signs and/or symptoms were reported regarding the EENT system. Derm: No signs and/or symptoms reported regarding the dermatologic system. Skin is intact, is healthy with good turgor, Skin is pink, warm \\T\\ dry. Musculoskeletal: No signs and/or symptoms reported regarding the musculoskeletal system. Circulation, motion, and sensation intact. Capillary refill < 3 seconds, Range of motion: intact in all extremities. Vital Signs: 17:53 BP 179 / 91; Pulse 88; Resp 18 S; Temp 97.8(TE); Pulse Ox 99% on R/A; Weight 106.59 kg aa5 (R); Height 5 ft. 8 in. (R); 19:14 BP 167 / 90; Pulse 85; Resp 17; Pulse Ox 99% on R/A; ll3 20:18 BP 175 / 97; Pulse 81; Resp 16; Pulse Ox 100% on R/A; ll3 17:53 Body Mass Index 35.73 (106.59 kg, 172.72 cm) aa5 ED Course: 17:19 Patient arrived in ED. im 17:26 Elijah Voss PA is PHCP. cp 17:26 Elijah Ruiz MD is Attending Physician. cp 17:52 Arm band placed on. aa5 17:53 Triage completed. aa5 18:12 Selina Ambriz RN is Primary Nurse. kc6 18:25 Inserted saline lock: 20 gauge in right antecubital area, using aseptic technique. kc6 Blood collected. 18:55 Patient has correct armband on for positive identification. Placed in gown. Bed in low kc6 position. Call light in reach. Side rails up X 1. 19:27 XRAY Foot RIGHT 3 View In Process Unspecified. EDMS 20:02 US Extremity Venous Unilateral Ltd In Process Unspecified. EDMS 20:44 No provider procedures requiring assistance completed. IV discontinued, intact, ll3 bleeding controlled, No redness/swelling at site. Pressure dressing applied. Administered Medications: 19:13 Drug: fentaNYL (PF) IVP 25 mcg Route: IVP; Site: right antecubital; ll3 20:43 Follow up: Response: No adverse reaction; Marked relief of symptoms ll3 20:19 CANCELLED (Physician Discretion): Amoxicillin-Clavulanate PO 875 mg PO once cp 20:28 Drug: Rocephin IV 1 grams Route: IV; Rate: calculated rate; Site: right antecubital; ll3 20:43 Follow up: Response: No adverse reaction; IV Status: Completed infusion; IV Intake: [id number] 20:28 Drug: Doxycycline PO 100 mg Route: PO; ll3 20:43 Follow up: Response: No adverse reaction ll3 Medication: 20:44 VIS not applicable for this client. ll3 Intake: 20:43 IV: 50ml; Total: 50ml. ll3 Outcome: 20:21 Discharge ordered by MD. cp 20:44 Discharged to home ambulatory, with family. ll3 20:44 Condition: stable 20:44 Discharge instructions given to patient, Instructed on discharge instructions, follow up and referral plans. medication usage, Demonstrated understanding of instructions, follow-up care, medications, Prescriptions given X 1. 20:44 Patient left the ED. ll3 Signatures: Dispatcher [employer] EDMS Tanya Bianchi RN RN aa5 Elijah Voss PA PA cp Citlaly Thomas RN RN ll3 Selina Ambriz RN RN kc6 Suha Walters Corrections: (The following items were deleted from the chart) 17:56 17:53 Pulse 88bpm; Resp 18bpm; Spontaneous; Pulse Ox 99% RA; Temp 97.8F Temporal; aa5 106.59 kg Reported; Height 5 ft. 8 in. Reported; BMI: 35.7; aa5
[2022-11-13] MEDS ORDERED: CEFTRIAXONE 1000 MG/VIAL ONE (20:32)
[2022-11-13] MEDS ORDERED: DOXYCYCLINE 100 MG CAP PO ONE (20:32)
[2022-11-13] MEDS ORDERED: NA CHLORIDE 0.9% 50 ML ONE (20:32)
[2022-11-13 21:15] VITALS: TEMP 97.8
[2022-11-13 21:20] VITALS: BP 175/97; O2SAT 100
== END 2022-11-13 20:44 | disposition home or self-care (01) ==
LOC: ER 17:16
DX: L03.115 Cellulitis of right lower limb (principal); I10 Essential (primary) hypertension; E11.9 Type 2 diabetes mellitus without complications
CPT/HCPCS: 85025; 80048; 36415; 83735; 85610; 73630; 93971; J3010; J0696; 96374; 96375; 99284

== ENCOUNTER 2022-12-09 21:01 | Emergency (ER) | payer OTHER, BC ==
--- OUTSIDE RECORDS SUMMARY | 2022-12-09 21:07 | XMS REPORT | Continuity of Care Document ---
:1975 Author Organization [facility] t Address [address] [facility] [address] [place] [address] Care Team Providers Name Role Phone DEYRITA Primary Care Physician Unavailable Gorge TOMLINC, Rochelle Gomez Attending Clinician [phone] Omer CLARK, Kamilla Attending Clinician Unavailable Jessica CLARK, Malorie Attending Clinician Unavailable Gisele Lynn MA Attending Clinician Unavailable Asked, No Pcp Attending Clinician Unavailable Tabatha Katz MA Attending Clinician Unavailable Antoinette MEDRANO, April Attending Clinician Unavailable Dyllan Albert MD Attending Clinician Rashad HODGES, Carolyn Thompson Attending Clinician [phone] Whitney Dow Attending Clinician Deborah MEDRANO, [...] Added automatic ally from request for surgery [id number] No known No known Disease Unive rs active active ity of problems problems [facility] Allergies, Adverse Reactions, Alerts Allergy Allergy Status Severity Reaction(s) Onset Inactive Treating Comm ents Source Name Type Date Date Clinician NO KNOWN Drug Active Univers ALLERGIE Class ity of S [facility] Family History Family Member Diagnosis Comments Start Date Stop Date Source Natural father No Known Problems Met [facility] Natural mother Stroke [facility] Social History Social Habit Start Date Stop Date Quantity Comments Source Exposure to Not sure [facility]-CoV-2 (event) [facility] Gender identity [facility] Sexual orientation [facility] History of Social 2022-06-30 2022-06-[address] function 00:00:00 00:00:00 Hospital Alcohol intake 2022-02-05 2022-02-05 Lifetime [facility] 00:00:00 00:00:00 non-drinker Hospital (finding) Tobacco use and 2022-01-07 2022-01-07 Smokeless [facility] exposure 00:00:00 00:00:00 tobacco non-user Hospital Sex Assigned At [address] [facility] 00:00:00 [facility]00 [facility] Smoking Status Start Date Stop Date Source Unknown if ever smoked Univers y [facility] Never smoked tobacco [facility] Medications Ordered Filled Start Stop Current [...] 100mg Q.5D Take 1 Meth [facility]oke (NEURONTIN) 10-[address] 100 mg 13:53: (100 mg Hospita capsule 51 total) by l mouth 2 (two) times a day. ergocalcife Yes Take by Met hodi rol, 7-[address] vitamin D2, 13:53: Hospit a (VITAMIN D2 51 l ORAL) vitamin B Yes QD Take by [facility] di complex -[address] tablet 13:53: daily. Hospita extended [...] capsule 51 total) by l mouth. docusate 2023-0 Yes 250mg Take 1 Method i sodium 7-[address] (COLACE) 13:53: (250 mg Hospit a 250 MG 51 total) by l capsule mouth. gabapentin 2023-0 Yes 100mg Q.5D Take 1 Meth brooke (NEURONTIN) 7-[address] 100 mg 13:53: (100 mg Hospita capsule 51 total) by l mouth 2 (two) times a day. ergocalcife 3-0 Yes Take by Met kota puentes, 7-[address] vitamin D2, 13:53: Hospit [...] capsule 51 total) by l mouth. docusate 2023-0 Yes 250mg Take 1 Method i sodium 7-[address] (COLACE) 13:53: (250 mg Hospit a 250 MG 51 total) by l capsule mouth. gabapentin 2023-0 Yes 100mg Q.5D Take 1 Meth [facility] (NEURONTIN) 7-[address] 100 mg 13:53: (100 mg Hospita capsule 51 total) by l mouth 2 (two) times a day. ergocalcife 2022-0 Yes Take by Met kota rol, 7-[address] vitamin D2, 13:53: Hospit a (VITAMIN D2 51 l ORAL) vitamin B 2022-0 Yes QD Take by [facility] complex 7-[address] tablet 13:53: daily. Hospita extended 51 l release carvediloL 3-0 Yes 25mg Q.5D Take 1 Metho di (COREG) 25 -06 tablet (25 st MG tablet 13:53: mg total) Hos [facility]all 51 by mouth 2 l (two) times a day with meals. tadalafil 3-0 Yes 40mg Take 2 Method i (ADCIRCA, 7-[address] CIALIS) 20 13:53: (40 mg Hospi ta mg tablet 51 total) by l mouth as needed. omeprazole 3-0 Yes 20mg QD Take 1 Metho di (PriLOSEC) -[address] 20 MG 13:53: (20 mg Hospita capsule 51 total) by l mouth daily. aspirin 2023-0 Yes 81mg QD Take 1 Methodi (ECOTRIN) 7-06 tablet (81 st 81 MG 13:52: mg total) Hospita enteric 20 by mouth l coated daily. tablet aspirin 2023-0 Yes 81mg QD Take 1 [facility] (ECOTRIN) 7-06 tablet (81 st 81 MG 13:52: mg total) Hospita enteric 20 by mouth l coated daily. tablet aspirin 2023-0 Yes 81mg QD Take 1 Method[facility] (ECOTRIN) [...] TWICE l DAILY FOR 6 MONTHS calcitrioL 3-0 Yes .5ug Take 2 Metho [...] st MG tablet 13:11: mg total) Hos ekndall 52 by mouth 2 l (two) times [...] capsule 57 total) by l mouth. docusate 2023-0 Yes 250mg Take 1 Method i sodium 1-[address] (COLACE) 09:51: (250 mg Hospit a 250 MG 57 total) by l capsule mouth. gabapentin 3-0 Yes 100mg Q.5D Take 1 Meth bro[facility] (NEURONTIN) 1-[address] 100 mg 09:51: (100 mg Hospita capsule 57 total) by l mouth 2 (two) times a day. ergocalcife Yes Take by Met kota puentes, 1-[address] vitamin D2, 09:51: Hospit a (VITAMIN D2 57 l ORAL) vitamin B Yes QD Take by Metho di complex -[address] tablet 09:51: daily. Hospita extended [...] lidocaine-p 2021-04- No Apply [facility] rilocaine 05-11- topically st (EMLA) 00:00: 05:59 as needed Hospi ta 2.5-2.5 % 00 :00 for mild l cream pain. Apply to area 30-45 minutes prior to dialysis treatment. lidocaine-p 2021-04- No Apply [facility] rilocaine 05-11- topically st (EMLA) 00:00: 05:59 as needed [...] Yes QD Take by Metho di complex 9-[address] tablet 17:25: daily. Hospita extended 59 l release traMADoL 2021- No [id number] 50mg Q6H Take 1 Metho di (Ultram) 50 - 09-24 tablet (50 s t mg tablet 00:00: 04:59 mg total) Ho spita 00 :00 by mouth l every 6 (six) hours as needed for moderate pain for up to 2 days .acute pain. traMADoL [id number] 50mg Q6H Take 1 Metho di (Ultram) 50 01-0924 tablet (50 s t mg tablet 00:00: 04:59 mg total) Ho spita 00 :00 by mouth l every 6 (six) hours as needed for moderate pain for up to 2 days .acute pain. traMADoL [id number] 50mg Q6H Take 1 Metho di (Ultram) 50 01-0924 tablet (50 s t mg tablet 00:00: 04:59 mg total) Ho spita 00 :00 by mouth l every 6 (six) hours as needed for moderate pain for up to 2 days .acute pain. traMADoL [id number] 50mg Q6H Take 1 Metho di (Ultram) 50 01-0924 tablet (50 s t mg tablet 00:00: 04:59 mg total) Ho spita 00 :00 by mouth l every 6 (six) hours as needed for moderate pain for up to 2 days .acute pain. traMADoL 28 50mg Q6H Take 1 Metho di (Ultram) 50 01-0924 tablet (50 s t mg tablet 00:00: 04:59 mg total) Ho spita 00 :00 by mouth l every 6 (six) hours as needed for moderate pain for up to 2 days .acute pain. traMADoL 28 50mg Q6H Take 1 Metho di (Ultram) 50 01-0924 tablet (50 s t mg tablet 00:00: 04:59 mg total) Ho spita 00 :00 by mouth l every 6 (six) hours as needed for moderate pain for up to 2 days .acute pain. traMADoL 28 50mg Q6H Take 1 Metho di (Ultram) 50 01-0924 tablet (50 s t mg tablet 00:00: 04:59 mg total) Ho spita 00 :00 by mouth l every 6 (six) hours as needed for moderate pain for up to 2 days .acute pain. traMADoL 2021- No [id number] 50mg Q6H Take 1 Metho di (Ultram) 50 01-0924 tablet (50 s t mg tablet 00:00: 04:59 mg total) Ho spita 00 :00 by mouth l every 6 (six) hours as needed for moderate pain for up to 2 days .acute pain. traMADoL 2021- No [id number] 50mg Q6H Take 1 Metho di (Ultram) 50 01-0924 tablet (50 s t mg tablet 00:00: 04:59 mg total) Ho spita 00 :00 by mouth l every 6 (six) hours as needed for moderate pain for up to 2 days .acute pain. traMAD[place] 2021- [place] [id number] 50mg Q6H Take 1 Metho di (Ultram) [...] :00 total) by l mouth. glipiZIDE 0 2- No 2.5mg Take 1 Meth [facility] (GLUCOTROL) 01-[address] 2.5 MG 24 09:22: 00:00 (2.5 mg Hosp antione hr tablet 49 :00 total) by l mouth. glipiZIDE 2021-0 2- No 2.5mg Take 1 Meth bro[facility] (GLUCOTROL) 01-[address] 2.5 MG 24 09:22: 00:00 (2.5 mg Hosp antione hr tablet 49 :00 total) by l mouth. glipiZIDE 2021-0 2- No 2.5mg Take 1 Meth brooke (GLUCOTROL) [...] :00 total) by l mouth. glipiZIDE 2021-0 2- No 2.5mg Take 1 Meth bro[facility] (GLUCOTROL) [...] daily. insulin pen subcutaneou s pen insulin 2022-0 3- No 25U QD Inject 25 [facility] GLARGINE 12-20 09- Units st (UJEO) 00:00: 04:59 under the Hos kendall 300 unit/mL 00 :00 skin l (1.5 mL) daily. insulin pen subcutaneou s pen insulin 2021-0 2022- No 25U QD Inject 25 Meth [facility] GLARGINE 12-20 09-[address] (UJEO) 00:00: 04:59 under the [...] l (two) times a day. albuterol Yes [id number] 2{puff} Inhale 2 Univers 90 1-22 Puffs ity of mcg/actuati 00:00: every 4 Kj as on inhaler 00 (four) Medical hours as Branch needed for Wheezing or Shortness of Breath. proMETHazin Yes [id number] 25mg Take 1 Univers e 25 mg 1-22 tablet by ity of tablet 00:00: mouth [place] 00 every 6 Medical (six) Branch hours as needed for Nausea and Vomiting (N/V). albuterol Yes [id number] 2{puff} Inhale 2 Univers 90 1-22 Puffs ity of mcg/actuati 00:00: every 4 Kj as on inhaler 00 (four) Medical hours as Branch needed for Wheezing or Shortness of Breath. proMETHazin Yes [id number] 25mg Take 1 Univers e 25 mg 1-22 tablet by ity of tablet 00:00: mouth [place] 00 every 6 Medical (six) Branch hours as needed for Nausea and Vomiting (N/V). amoxicillin 2021- No [id number] 1{tbl} Take 1 Univers -clavulanat 05-12 tablet [...] days. Indication s: COUGH amoxicillin 2021- No [id number] 1{tbl} Take 1 Univers -clavulanat 05-12 tablet [...] Source Systolic blood 2021-05-12 134 mm[Hg] University pressure 14:46:[address] [facility] Diastolic blood 2021-05-12 66 mm[Hg] [place] o f pressure 14:46:[address] [facility] Heart rate 2021-05-12 118 /min [facility] 14:46:[address] [facility] Body temperature 2021-05-12 37.33 Chey [facility] 14:46:[address] [facility] Respiratory rate 2021-05-12 22 /min [facility] 14:46:[address] [facility] Body weight 2021-05-12 102.059 kg [facility] 14:46:[address] [facility] Oxygen saturation 2021-05-12 100 /min [facility] in Arterial blood 14:46:00 [facility] by Pulse oximetry [place] Systolic blood 2022-10-24 168 mm[Hg] [facility] pressure 18:50:00 [facility] Diastolic blood 2022-10-24 81 mm[Hg] [facility] pressure 18:50:00 [facility] Heart rate 2022-10-24 89 /min [facility] 18:50:00 [facility] Body temperature 2022-10-24 36.44 Chey [facility] 18:50:00 [facility] Body height 2022-10-24 172.7 cm [facility] 18:50:00 [facility] Body weight 2022-10-24 107.049 kg [facility] 18:50:00 Hospital BMI 2022-10-24 35.88 kg/m2 [facility] 18:50:00 Hospital Oxygen saturation 2022-10-24 96 /min [facility] in Arterial blood 18:50:00 Hospital by Pulse oximetry Systolic blood 2022-07-23 149 mm[Hg] [facility] pressure 18:08:00 Hospital Diastolic blood 2022-07-23 87 mm[Hg] [facility] pressure 18:08:00 Hospital Heart rate 2022-07-23 84 /min [facility] 18:08:00 Hospital Body temperature 2022-07-23 36.78 Chey [facility] 18:08:00 Hospital Body height 2022-07-23 172.7 cm [facility] 18:08:00 Hospital Body weight 2022-07-23 98.521 kg [facility] 18:08:00 [facility] BMI 2022-07-23 33.03 kg/m2 [facility] 18:08:00 [facility] Oxygen saturation 2022-07-23 97 /min [facility] in Arterial blood 18:08:00 Hospital by Pulse oximetry Systolic blood 2022-04-23 155 mm[Hg] did not take [facility] pressure 15:38:00 blood pressure Hospital medication Diastolic blood 2022-04-23 88 mm[Hg] did not take [facility] pressure 15:38:00 blood pressure Hospital medication Heart rate 2022-04-23 92 /min [facility] 15:38:00 Hospital Body temperature 2022-04-23 36.67 Chey [facility] 15:38:00 Hospital Body height 2022-04-23 172.7 cm [facility] 15:38:00 Hospital Body weight 2022-04-23 97.433 kg [facility] 15:38:00 Hospital BMI 2022-04-23 32.66 kg/m2 [facility] 15:38:00 Hospital Oxygen saturation 2022-04-23 98 /min [facility] in Arterial blood 15:38:00 Hospital by Pulse oximetry Systolic blood 2022-02-07 182 mm[Hg] [facility] pressure 20:01:00 Hospital Diastolic blood 2022-02-07 92 mm[Hg] [facility] pressure 20:01:00 Hospital Heart rate 2022-02-07 89 /min [facility] 20:01:00 Hospital Body temperature 2022-02-07 36.44 Chey [facility] 20:01:00 Hospital Body height 2022-02-07 172.7 cm [facility] 20:01:00 Hospital Body weight 2022-02-07 107.049 kg [facility] 20:01:00 Hospital BMI 2022-02-07 35.88 kg/m2 [facility] 20:01:00 Hospital Oxygen saturation 2022-02-07 98 /min [facility] in Arterial blood 20:01:00 Hospital by Pulse oximetry Systolic blood 2022-01-09 147 mm[Hg] [facility] pressure 21:30:00 Hospital Diastolic blood 2022-01-09 85 mm[Hg] [facility] pressure 21:30:00 Hospital Heart rate 2022-01-09 92 /min [facility] 21:30:00 [facility] Body temperature 2022-01-09 36.56 Chey [facility] 21:30:00 Hospital Oxygen saturation 2022-01-09 99 /min [facility] in Arterial blood 21:30:00 Hospital by Pulse oximetry Respiratory rate 2022-01-09 18 /min [facility] 21:30:00 [facility] Body height 2022-01-09 172.7 cm [facility] 13:28:00 [facility] Body weight 2022-01-09 103.874 kg [facility] 13:28:00 [facility] BMI 2022-01-09 34.82 kg/m2 [facility] 13:28:00 Hospital Procedures Procedure Date / Time Performing Clinician Source Performed US CAROTID DUPLEX 2022-04-11 18:00:00 Rochelle Pennington [facility] POC GLUCOSE 2022-01-09 20:58:00 Dyllan Albert spital POC GLUCOSE 2022-01-09 20:02:00 Dyllan Albert spital IN AN ELECTIVE 2022-01-09 17:35:00 Carolyn Solorzano spital SUPRAGLOTTIC AIRWAY Donna CREATION, AV FISTULA 2022-01-09 17:26:00 [facility]an [facility] ESTIMATED GFR 2022-01-09 13:43:00 Dyllan Albert spital POC PANEL 2022-01-09 13:43:00 Dyllan Albert spital ABO AND RH CONFIRMATION 2022-01-09 13:40:00 Shahana Dyllan [facility] BY PROTOCOL XR CHEST 2 VW 2022-01-07 15:20:51 Dyllan Albert spital ECG PRE/POST OP 2022-01-07 14:56:02 [facility] 2022-01-07 14:34:00 Dyllan Albert [facility] RT-PCR URINE CULTURE 2022-01-07 14:33:00 [facility]EN AND 2022-01-07 14:33:00 Dyllan Albert [facility] MICROSCOPY, WITH REFLEX TO CULTURE COMPREHENSIVE METABOLIC 2022-01-07 14:33:00 Derek Merino [facility] PANEL Ramon Coleman ESTIMATED GFR 2022-01-07 14:33:00 Catia Merino [facility] Ramon Coleman PARTIAL THROMBOPLASTIN 2022-01-07 14:05:00 Dyllan Albert [facility] TIME (PTT) PROTHROMBIN TIME WITH INR 2022-01-07 14:05:00 Dyllan Albert [facility] CBC WITH PLATELET AND 2022-01-07 14:05:00 Dyllan Albert [facility] DIFFERENTIAL TYPE AND SCREEN 2022-01-07 14:05:00 Dyllan Albert [facility] HEMOGLOBIN A1C 2022-01-07 14:05:00 Catia Merino [facility] Ramon Coleman HEPATITIS B SURFACE 2021-09-06 05:47:00 [facility] ANTIGEN Center HEPATITIS B SURFACE 2021-09-06 05:47:00 [facility] ANTIBODY Center HEPATITIS B CORE 2021-09-06 05:47:00 [facility] ANTIBODY, IGM Center XR CHEST 2 VW 2021-05-12 16:27:08 Turner Garcia [facility] RAPID INFLUENZA A/B 2021-05-12 15:13:00 Turner Garcia [facility] NOTICE OF PRIVACY 2021-05-12 14:43:20 Doctor Unassigned, [facility] PRACTICES [facility] CONSENT/REFUSAL FOR 2021-05-12 14:43:06 Doctor Unassigned, [facility] DIAGNOSIS AND TREATMENT [facility] Plan of Care Planned Activity Planned Date Details Comments Source Future Scheduled 2022-12-[address] [facility] Test 00:00:00 (Season Ended) [code = Medic al Center INFLUENZA VACCINE (Season Ended)] Future Scheduled 2022-12-[address] [facility] Test 00:00:00 (Season Ended) [code = Medic al Center INFLUENZA VACCINE (Season Ended)] Future Scheduled 2022-11-25 Scre[facility] Test 14:32:47 malignant neoplasm of colon (procedure) [code = 895963577] Future Scheduled 2022-11-25 [facility] Test 14:32:47 malignant neoplasm of colon (procedure) [code = 186129088] Future Scheduled 2022-11-25 [facility] Test 14:32:47 malignant neoplasm of colon (procedure) [code = 728793905] Future Scheduled 2022-11-25 Pneumococcal Vaccine: [facility] Test 14:32:47 Pediatrics (0 to 5 Years) and At-Risk Patients (6 to 64 Years) (1 - PCV) [code = Pneumococcal Vaccine: Pediatrics (0 to 5 Years) and At-Risk Patients (6 to 64 Years) (1 - PCV)] Future Scheduled 2022-11-25 Hepatitis C screening [facility] Test 14:32:47 (procedure) [code = 774904471] Future Scheduled 2022-11-25 COVID-19 VACCINE (3 - [facility] Test 14:32:47 Moderna series) [code = COVID-19 VACCINE (3 - Moderna series)] Future Scheduled 2022-11-25 Scre[facility] for [facility] Test 14:32:47 malignant neoplasm of colon (procedure) [code = 608953557] Future Scheduled 2022-11-25 [facility] Test 14:32:47 malignant neoplasm of colon (procedure) [code = 619135954] Future Scheduled 2022-11-25 INFLU[facility]ZA VACCINE [facility] Test 14:32:47 [code = INFLUENZA VACCINE] Future Scheduled 2022-10-25 [facility] Test 16:31:09 malignant neoplasm of colon (procedure) [code = 884473178] Future Scheduled 2022-10-25 [facility] Test 16:31:09 malignant neoplasm of colon (procedure) [code = 053054211] Future Scheduled 2022-10-25 [facility] Test 16:31:09 malignant neoplasm of colon (procedure) [code = 770648766] Future Scheduled 2022-10-25 Pneumococcal Vaccine: [facility] Test 16:31:09 Pediatrics (0 to 5 Years) and At-Risk Patients (6 to 64 Years) (1 - PCV) [code = Pneumococcal Vaccine: Pediatrics (0 to 5 Years) and At-Risk Patients (6 to 64 Years) (1 - PCV)] Future Scheduled 2022-10-25 Hepatitis C screening [facility] Test 16:31:09 (procedure) [code = 550874484] Future Scheduled 2022-10-25 COVID-19 VACCINE (3 - [facility] Test 16:31:09 Moderna series) [code = COVID-19 VACCINE (3 - Moderna series)] Future Scheduled 2022-10-25 [facility] Test 16:31:09 malignant neoplasm of colon (procedure) [code = 872192368] Future Scheduled 2022-10-25 [facility] Test 16:31:09 malignant neoplasm of colon (procedure) [code = 693041612] Future Scheduled 2022-10-25 [facility]ZA [facility]ACCINE [facility] Test 16:31:09 [code = INFLUENZA VACCINE] Future Scheduled 2022-10-25 [facility] Test 16:31:09 malignant neoplasm of colon (procedure) [code = 188223724] Future Scheduled 2022-10-25 [facility] Test 16:31:09 malignant neoplasm of colon (procedure) [code = 064013388] Future Scheduled 2022-10-25 [facility] Test 16:31:09 malignant neoplasm of colon (procedure) [code = 219428332] Future Scheduled 2022-10-25 Pneumococcal Vaccine: [facility] Test 16:31:09 Pediatrics (0 to 5 Years) and At-Risk Patients (6 to 64 Years) (1 - PCV) [code = Pneumococcal Vaccine: Pediatrics (0 to 5 Years) and At-Risk Patients (6 to 64 Years) (1 - PCV)] Future Scheduled 2022-10-25 Hepatitis C screening [facility] Test 16:31:09 (procedure) [code = 301652807] Future Scheduled 2022-10-25 COVID-19 VACCINE (3 - [facility] Test 16:31:09 Moderna series) [code = COVID-19 VACCINE (3 - Moderna series)] Future Scheduled 2022-10-25 [facility] Test 16:31:09 malignant neoplasm of colon (procedure) [code = 218756152] Future Scheduled 2022-10-25 [facility] Test 16:31:09 malignant neoplasm of colon (procedure) [code = 478402115] Future Scheduled 2022-10-25 INFLU[facility]ZA VACCINE [facility] 16:31:09 [code = INFLUENZA VACCINE] Future Scheduled 2022-09-28 [facility] Test 22:18:06 malignant neoplasm of colon (procedure) [code = 896343156] Future Scheduled 2022-09-28 [facility] Test 22:18:06 malignant neoplasm of colon (procedure) [code = 293282819] Future Scheduled 2022-09-28 [facility] Test 22:18:06 malignant neoplasm of colon (procedure) [code = 967470836] Future Scheduled 2022-09-28 Pneumococcal Vaccine: [facility] Test 22:18:06 Pediatrics (0 to 5 Years) and At-Risk Patients (6 to 64 Years) (1 - PCV) [code = Pneumococcal Vaccine: Pediatrics (0 to 5 Years) and At-Risk Patients (6 to 64 Years) (1 - PCV)] Future Scheduled 2022-09-28 Hepatitis C screening [facility] Test 22:18:06 (procedure) [code = 291482825] Future Scheduled 2022-09-28 COVID-19 VACCINE (3 - [facility] Test 22:18:06 Moderna series) [code = COVID-19 VACCINE (3 - Moderna series)] Future Scheduled 2022-09-28 [facility] Test 22:18:06 malignant neoplasm of colon (procedure) [code = 572798863] Future Scheduled 2022-09-28 [facility] Test 22:18:06 malignant neoplasm of colon (procedure) [code = 076101276] Future Scheduled 2022-09-28 [facility]ZA VACCINE [facility] Test 22:18:06 [code = INFLUENZA VACCINE] Future Scheduled 2022-07-23 Pneumococcal Vaccine: [facility] Test 13:39:42 Pediatrics (0 to 5 Years) and At-Risk Patients (6 to 64 Years) (1 - PCV) [code = Pneumococcal Vaccine: Pediatrics (0 to 5 Years) and At-Risk Patients (6 to 64 Years) (1 - PCV)] Future Scheduled 2022-07-23 [facility] Test 13:39:42 (procedure) [code = 252219092] Future Scheduled 2022-07-23 COVID-19 VACCINE (3 - [facility] Test 13:39:42 Booster for Moderna series) [code = COVID-19 VACCINE (3 - Booster for Moderna series)] Future Scheduled 2022-07-23 [facility]CREENING [facility] Test 13:39:42 [code = COLONOSCOPY SCREENING] Future Scheduled 2022-07-23 INFLUENZA VACCINE [facility] Test 13:39:42 [code = INFLUENZA VACCINE] Future Scheduled 2022-06-16 COVID-19 VACCINE (#1) [facility] Test 21:38:44 [code = COVID-19 VACCINE (#1)] Future Scheduled 2022-06-16 Pneumococcal Vaccine: [facility] Test 21:38:44 Pediatrics (0 to 5 Years) and At-Risk Patients (6 to 64 Years) (1 - PCV) [code = Pneumococcal Vaccine: Pediatrics (0 to 5 Years) and At-Risk Patients (6 to 64 Years) (1 - PCV)] Future Scheduled 2022-06-16 [facility] Test 21:38:44 (procedure) [code = 040185467] Future Scheduled 2022-06-16 COLONOSCOPY SCREENING [facility] Test 21:38:44 [code = COLONOSCOPY SCREENING] [...] Future Scheduled 2022-02-28 HEPATITIS B VACCINES Met [facility] Test 10:00:19 (1 of 3 - 3-dose series) [code = HEPATITIS B VACCINES (1 of 3 - 3-dose series)] Future Scheduled 2022-02-28 COVID-19 VACCINE (#1) [facility] Test 10:00:19 [code = COVID-19 VACCINE (#1)] Future Scheduled 2022-02-28 Pneumococcal Vaccine: [facility] Test 10:00:19 Pediatrics (0 to 5 Years) and At-Risk Patients (6 to 64 Years) (1 - PCV) [code = Pneumococcal Vaccine: Pediatrics (0 to 5 Years) and At-Risk Patients (6 to 64 Years) (1 - PCV)] Future Scheduled 2022-02-28 Hepatitis C screening [facility] Test 10:00:19 (procedure) [code = 911015454] Future Scheduled 2022-02-28 COLONOSCOPY SCREENING [facility] Test 10:00:19 [code = COLONOSCOPY SCREENING] Future Scheduled 2022-02-28 INFLUENZA VACCINE [facility] Test 10:00:19 [code = INFLUENZA VACCINE] Future Scheduled 2022-02-12 HEPATITIS B VACCINES Met [facility] Test 07:56:41 (1 of 3 - 3-dose series) [code = HEPATITIS B VACCINES (1 of 3 - 3-dose series)] Future Scheduled 2022-02-12 COVID-19 VACCINE (#1) [facility] Test 07:56:41 [code = COVID-19 VACCINE (#1)] Future Scheduled 2022-02-12 Pneumococcal Vaccine: [facility] Test 07:56:41 Pediatrics (0 to 5 Years) and At-Risk Patients (6 to 64 Years) (1 - PCV) [code = Pneumococcal Vaccine: Pediatrics (0 to 5 Years) and At-Risk Patients (6 to 64 Years) (1 - PCV)] Future Scheduled 2022-02-12 Hepatitis C screening [facility] Test 07:56:41 (procedure) [code = 216876421] Future Scheduled 2022-02-12 COLONOSCOPY SCREENING [facility] Test 07:56:41 [code = COLONOSCOPY SCREENING] Future Scheduled 2022-02-12 INFLUENZA VACCINE Method [facility] Test 07:56:41 [code = INFLUENZA VACCINE] Future Scheduled 2022-02-07 HEPATITIS B VACCINES Met [facility] Test 15:27:38 (1 of 3 - 3-dose series) [code = HEPATITIS B VACCINES (1 of 3 - 3-dose series)] Future Scheduled 2022-02-07 COVID-19 VACCINE (#1) [facility] Test 15:27:38 [code = COVID-19 VACCINE (#1)] Future Scheduled 2022-02-07 Pneumococcal Vaccine: [facility] Test 15:27:38 Pediatrics (0 to 5 Years) and At-Risk Patients (6 to 64 Years) (1 - PCV) [code = Pneumococcal Vaccine: Pediatrics (0 to 5 Years) and At-Risk Patients (6 to 64 Years) (1 - PCV)] Future Scheduled 2022-02-07 Hepatitis C screening [facility] Test 15:27:38 (procedure) [code = 743866303] Future Scheduled 2022-02-07 COLONOSCOPY SCREENING [facility] Test 15:27:38 [code = COLONOSCOPY SCREENING] Future Scheduled 2022-02-07 INFLUENZA VACCINE Method [facility] Test 15:27:38 [code = INFLUENZA VACCINE] Future Scheduled 2022-01-25 HEPATITIS B VACCINES Met [facility] Test 11:11:15 (1 of 3 - 3-dose series) [code = HEPATITIS B VACCINES (1 of 3 - 3-dose series)] Future Scheduled 2022-01-25 COVID-19 VACCINE (#1) [facility] Test 11:11:15 [code = COVID-19 VACCINE (#1)] Future Scheduled 2022-01-25 Pneumococcal Vaccine: [facility] Test 11:11:15 Pediatrics (0 to 5 Years) and At-Risk Patients (6 to 64 Years) (1 - PCV) [code = Pneumococcal Vaccine: Pediatrics (0 to 5 Years) and At-Risk Patients (6 to 64 Years) (1 - PCV)] Future Scheduled 2022-01-25 Hepatitis C screening [facility] Test 11:11:15 (procedure) [code = 991817776] Future Scheduled 2022-01-25 COLONOSCOPY SCREENING [facility] Test 11:11:15 [code = COLONOSCOPY SCREENING] Future Scheduled 2022-01-25 INFLUENZA VACCINE Method [facility] Test 11:11:15 [code = INFLUENZA VACCINE] [...] Test 00:00:00 (procedure) [code = Medical Center 80881427] Future Scheduled [address] [facility] Test 00:00:00 (procedure) [code = Medical Center 99968140] Future Scheduled [address] [facility] Test 00:00:00 (procedure) [code = Medical Center 27809381] Future Scheduled [address] [facility] Test 00:00:00 (procedure) [code = Medical Center 69177338] Future Scheduled [address] [facility] Test 00:00:00 (procedure) [code = [facility] Center 60042285] Future Scheduled [address] [facility] Test 00:00:00 (procedure) [code = [facility] 44282542] Future Scheduled [address] [facility] Test 00:00:00 (procedure) [code = [facility] Center 94636537] Future Scheduled [address] [facility] Test 00:00:00 (procedure) [code = [facility] Center 44036812] Future Scheduled 1995 DTAP/TDAP/TD VACCINES [facility] [...] [facility] l Center colon (procedure) [code = 910466565] Future Scheduled [address] [facility] colon (procedure) [code = 222602767] Future Scheduled [address] [facility] Test 00:00:00 [facility] colon (procedure) [code = 862836952] Future Scheduled [address] [facility] Test 00:00:[facility] colon (procedure) [code = 607720817] Future Scheduled 1976 S[facility]oid[facility]] Medical Bon r Future Scheduled [address] [facility] Test 00:00:00 (combo) [code = CT Medical C enter Colonography (combo)] Future Scheduled [address] [facility] Test 00:00:00 [facility] colon (procedure) [code = 564043856] Future Scheduled [address] [facility] Test 00:00:00 [facility] colon (procedure) [code = 239052536] Future Scheduled [address] [facility] Test 00:00:00 [facility] colon (procedure) [code = 397161596] Future Scheduled [address] [facility] Test 00:00:00 [facility] colon (procedure) [code = 298944076] Future Scheduled 1976 [facility]] Medical Chiragcitlali r Future Scheduled [address] [facility] Test 00:00:00 (combo) [code = CT Medical C enter Colonography (combo)] Future Scheduled [address] [facility] Test 00:00:[facility] malignant neoplasm of [facility] Center colon (procedure) [code = 487194018] Future Scheduled [address] [facility] Test 00:00:00 [facility] neoplasm of [facility] Center colon (procedure) [code = 641215795] Future Scheduled [address] [facility] Test 00:00:00 [facility] neoplasm of [facility] Center colon (procedure) [code = 402451610] Future Scheduled [address] [facility] Test 00:00:00 [facility] neoplasm of [facility] Center colon (procedure) [code = 690062237] Future Scheduled 1976 [facility]] Medical Chirage r Future Scheduled [address] [facility] Test 00:00:00 (combo) [code = CT Medical C enter Colonography (combo)] Future Scheduled [address] [facility] Test 00:00:00 [facility] Center colon (procedure) [code = 583804145] Future Scheduled [address] [facility] Test 00:00:00 [facility] colon (procedure) [code = 529902502] Future Scheduled [address] [facility] Test 00:00:00 [facility] neoplasm of [facility] Center colon (procedure) [code = 686147042] Future Scheduled [address] [facility] 00:00:00 [facility] colon (procedure) [code = 151994130] Future Scheduled 1976 [facility]] Medical Bon r Future Scheduled [address] [facility] Test 00:00:00 (combo) [code = CT Medical C enter Colonography (combo)] Future Scheduled [address] [facility] Test 00:00:00 malignant ne[facility] Center colon (procedure) [code = 193702042] Future Scheduled [address] [facility] Test 00:00:00 malignant neoplasm of [facility] colon (procedure) [code = 524770002] Future Scheduled [address] [facility] Test 00:00:00 malignant neoplasm of [facility] colon (procedure) [code = 684916147] Future Scheduled [address] [facility] Test 00:00:00 malignant neoplasm of [facility] Center colon (procedure) [code = 915927908] Future Scheduled 1976 [facility]] Medical Cente r Future Scheduled [address] [facility] 00:00:00 (combo) [code = CT Medical C enter Colonography (combo)] Future Scheduled [address] [facility] Test 00:00:00 malignant neoplasm of [facility] Center colon (procedure) [code = 090544684] Future Scheduled [address] [facility] Test 00:00:00 [facility] ne[facility] of [facility] colon (procedure) [code = 022618099] Future Scheduled [address] [facility] Test 00:00:00 malignant neoplasm of [facility] Center colon (procedure) [code = 507660637] Future Scheduled [address] [facility] 00:00:00 malignant neoplasm of [facility] Center colon (procedure) [code = 354816629] Future Scheduled 1976 [facility]] Medical Cente r Future Scheduled [address] [facility] 00:00:00 (combo) [code = CT Medical C enter Colonography (combo)] Future Scheduled [address] [facility] Test 00:00:00 malignant ne[facility] Center colon (procedure) [code = 497458318] Future Scheduled [address] [facility] Test 00:00:00 malignant ne[facility] of [facility] colon (procedure) [code = 019455379] Future Scheduled [address] [facility] Test 00:00:00 malignant neoplasm of [facility] Center colon (procedure) [code = 625322205] Future Scheduled [address] [facility] Test 00:00:00 malignant neoplasm of [facility] Center colon (procedure) [code = 527957461] Future Scheduled 1976 [facility]oidoscopy [facility]] Medical Cente r Future Scheduled [address] [facility] 00:00:00 (combo) [code = CT Medical C enter Colonography (combo)] Future Scheduled [address] [facility] Test 00:00:00 malignant neoplasm of [facility] Center colon (procedure) [code = 055917134] Future Scheduled [address] [facility] Test 00:00:00 malignant neoplasm of [facility] Center colon (procedure) [code = 716922347] Future Scheduled [address] [facility] Test 00:00:00 malignant neoplasm of [facility] Center colon (procedure) [code = 217084583] Future Scheduled [address] [facility] Test 00:00:00 malignant neoplasm of [facility] Center colon (procedure) [code = 181238729] Future Scheduled 1976 [facility]oid[facility]] Medical Cente r Encounters Start End Encounter Admission Attending Care Care Encounter Source Date/Time Date/Time Type Type Clinicians Facility Department ID 2022-10-24 2022-10-24 Office Gorge, 1.2.840.1 [id number] Methodi 13:30:00 14:37:52 Visit Rochelle 90854.1.[address] [place] 3.430.2.7 Hosp antione .3.727498 l .8 2022-10-24 2022-10-24 Office Gorge, 1.2.840.1 [id number] Methodi 13:30:00 14:37:52 Visit Rochelle 53541.1.[address] [place] 3.430.2.7 Hosp antione .3.591152 l .8 2022-07-23 2022-07-23 Office Gorge, 1.2.840.1 [id number] Methodi 13:00:00 13:40:09 Visit Rochelle 07410.1.[address] [place] 3.430.2.7 Hosp antione .3.621936 l .8 2022-07-23 2022-07-23 Office Pennington, 1.2.840.1 [id number] Methodi 13:00:00 13:40:09 Visit Rochelle 81878.1.[address] [place] 3.430.2.7 Hosp antione .3.714473 l .8 2022-07-23 2022-07-23 Travel 1.2.840.1 1.2.472.378 5349 128768 Methodi 00:00:00 00:00:[address] 3.430.2.7 0.2.7.3.698 Ho spita .3.707158 084.8 l .8 2022-07-23 2022-07-23 Travel 1.2.840.1 1.2.875.362 0690 545648 Methodi 00:00:00 00:00:[address] 3.430.2.7 0.2.7.3.698 Ho spita .3.366383 084.8 l .8 2022-04-23 2022-04-23 Office [place]ning[place], 1.2.840.1 [id number] [id number] 3604 Methodi 10:00:00 10:47:08 Visit Rochelle 03022.1.[address] [place] 3.430.2.7 Hosp antione .3.159170 l .8 2022-04-23 2022-04-23 Office [place], 1.2.840.1 [id number] 2972 Methodi 10:00:00 10:47:08 Visit Rochelle 50359.1.[address] [place] 3.430.2.7 Hosp antione .3.136745 l .8 2022-04-23 2022-04-23 Travel 1.2.840.1 1.2.653.591 9087 501503 Methodi 00:00:00 00:00:[address] 3.430.2.7 0.2.7.3.698 Ho spita .3.602515 084.8 l .8 2022-04-23 2022-04-23 Travel 1.2.840.1 1.2.392.629 1405 972501 Methodi 00:00:00 00:00:[address] 3.430.2.7 0.2.7.3.698 Ho spita .3.452997 084.8 l .8 2022-04-19 2022-04-19 Telephone Pennington, 1.2.840.1 [id number] 2099 [id number] Methodi 00:00:00 00:00:[address] [place] 3.430.2.7 Hosp antione .3.271553 l .8 2022-04-19 2022-04-19 Telephone Gorge, 1.2.840.1 [id number] 2099 [id number] Methodi 00:00:00 00:00:[address] [place] 3.430.2.7 Hosp antione .3.761010 l .8 2022-04-18 2022-04-18 Telephone Omer, 1.2.840.1 [id number] Methodi 00:00:00 00:00:[address] 3.430.2.7 Hospit a .3.189798 l .8 2022-04-18 2022-04-18 Telephone Omer, 1.2.840.1 [id number] Methodi 00:00:00 00:00:[address] 3.430.2.7 Hospit a .3.426121 l .8 2022-04-12 2022-04-12 Telephone Gorge, 1.2.840.1 [id number] 2099 [id number] Methodi 00:00:00 00:00:[address] [place] 3.430.2.7 Hosp antione .3.778356 l .8 2022-04-12 2022-04-12 Telephone Gorge, 1.2.840.1 [id number] 2099 [id number] Methodi 00:00:00 00:00:[address] [place] 3.430.2.7 Hosp antione .3.884508 l .8 2022-04-11 2022-04-11 Office Gorge, 1.2.840.1 [id number] Methodi 13:00:00 13:44:34 Visit Rochelle 76140.1.[address] [place] 3.430.2.7 Hosp antione .3.440774 l .8 2022-04-11 2022-04-11 Office [place], 1.2.840.1 [id number] 0090 Methodi 13:00:00 13:44:34 Visit Rochelle 77476.1.[address] [place] 3.430.2.7 Hosp antione .3.389247 l .8 2022-04-11 2022-04-11 Outpatient [facility] [id number] 206 [place] 00:00:00 00:00:[address] 2022-04-11 2022-04-11 Telephone Gorge, 1.2.840.1 [id number] 2100 [id number] Methodi 00:00:00 00:00:[address] [place] 3.430.2.7 Hosp antione .3.726005 l .8 2022-04-11 2022-04-11 Travel 1.2.840.1 1.2.889.997 3045 026776 Methodi 00:00:00 00:00:[address] 3.430.2.7 0.2.7.3.698 Ho spita .3.974114 084.8 l .8 2022-04-11 2022-04-11 Telephone [place], 1.2.840.1 [id number] 2099 [id number] Methodi 00:00:00 00:00:[address] [place] 3.430.2.7 Hosp antione .3.812412 l .8 2022-04-11 2022-04-11 Travel 1.2.840.1 1.2.965.775 1367 827181 Methodi 00:00:00 00:00:[address] 3.430.2.7 0.2.7.3.698 Ho spita .3.741790 084.8 l .8 2022-04-08 2022-04-08 Telephone [place], 1.2.840.1 [id number] 2100 [id number] Methodi 00:00:00 00:00:[address] [place] 3.430.2.7 Hosp antione .3.707511 l .8 2022-04-08 2022-04-08 Telephone Gorge, 1.2.840.1 [id number] 2100 [id number] Methodi 00:00:00 00:00:[address] [place] 3.430.2.7 Hosp antione .3.895299 l .8 2022-04-05 2022-04-05 Telephone Jessica, 1.2.840.1 [id number] 741 [id number] Methodi 00:00:00 00:00:00 Crysandria 43538.1.1 [address] t 3.430.2.7 Hospit a .3.770908 l .8 2022-04-05 2022-04-05 Telephone Jessica, 1.2.840.1 [id number] 168 [id number] Methodi 00:00:00 00:00:00 Crysandria 96862.1.1 388 s t 3.430.2.7 Hospit a .3.191225 l .8 2022-03-11 2022-03-11 Office Gorge, 1.2.840.1 [id number] Methodi 11:30:00 11:53:30 Visit Rochelle 80556.1.[address] [place] 3.430.2.7 Hosp antione .3.459785 l .8 2022-03-11 2022-03-11 Office Gorge, 1.2.840.1 [id number] 5806 Methodi 11:30:00 11:53:30 Visit Rochelle 96013.1.[address] [place] 3.430.2.7 Hosp antione .3.161944 l .8 2022-02-26 2022-02-26 Telephone Shane, 1.2.840.1 [id number] 387 [id number] Methodi 00:00:00 00:00:[address] 3.430.2.7 Hospit a .3.857030 l .8 2022-02-26 2022-02-26 Telephone Shane, 1.2.840.1 [id number] 259 [id number] Methodi 00:00:00 00:00:[address] 3.430.2.7 Hospit a .3.447378 l .8 2022-02-07 2022-02-07 Office Asked, No Pcp 1.2.840.1 [id number] Methodi 15:00:00 16:33:51 Visit Rochelle [place]ning[place] 95404.1.[address] 3.430.2.7 Hospit a .3.774136 l .8 2022-02-07 2022-02-07 Office Asked, No Pcp 1.2.840.1 [id number] Methodi 15:00:00 16:33:51 Visit Rochelle [place]ning[place] 66751.1.[address] 3.430.2.7 Hospit a .3.521008 l .8 2022-02-07 2022-02-07 Travel 1.2.840.1 1.2.410.148 0236 779235 Methodi 00:00:00 00:00:[address] 3.430.2.7 0.2.7.3.698 Ho spita .3.603129 084.8 l .8 2022-02-07 2022-02-07 Travel 1.2.840.1 1.2.759.371 8710 590982 Methodi 00:00:00 00:00:[address] 3.430.2.7 0.2.7.3.698 Ho spita .3.393329 084.8 l .8 2022-02-01 2022-02-01 Telephone Gianna, 1.2.840.1 [id number] 21 [id number] Methodi 00:00:00 00:00:[address] 3.430.2.7 Hospit a .3.521876 l .8 2022-02-01 2022-02-01 Telephone Gianna, 1.2.840.1 [id number] Methodi 00:00:00 00:00:[address] 3.430.2.7 Hospit a .3.100598 l .8 2022-01-25 2022-01-25 Telephone Antoinette, 1.2.840.1 [id number] Methodi 00:00:00 00:00:[address] 3.430.2.7 Hospit a .3.737606 l .8 2022-01-25 2022-01-25 Telephone Antoinette, 1.2.840.1 [id number] Methodi 00:00:00 00:00:[address] 3.430.2.7 Hospit a .3.778910 l .8 2022-01-01 2022-01-16 Office Shahana, Dyllan 1.2.840.1 [id number] 92746 45438 Methodi 09:00:00 04:17:[address] 3.430.2.7 Hospit a .3.949704 l .8 2022-01-01 2022-01-16 Office Shahana, Dyllan 1.2.840.1 [id number] Methodi 09:00:00 04:17:[address] 3.430.2.7 Hospit a .3.250908 l .8 2022-01-11 2022-01-11 Telephone Omer, 1.2.840.1 [id number] Methodi 00:00:00 00:00:[address] 3.430.2.7 Hospit a .3.786236 l .8 2022-01-11 2022-01-11 Telephone Tello, 1.2.840.1 [id number] Methodi 00:00:00 00:00:[address] 3.430.2.7 Hospit a .3.361966 l .8 2022-01-09 2022-01-09 [facility] Dyllan Albert 1.2.840.1 [id number] 2100 [id number] Methodi 07:17:00 17:05:[address] 3.430.2.7 Hospit a .3.906354 l .8 2022-01-09 2022-01-09 [facility] Dyllan Albert 1.2.840.1 [id number] 2100 [id number] Methodi 07:17:00 17:05:[address] 3.430.2.7 Hospit a .3.086241 l .8 2022-01-09 2022-01-09 Anesthesia Carolyn Solorzano 1.2.840. 1 [id number] Methodi 12:26:00 15:04:00 Event Whitney Cano 05743.1.[address] 3.430.2.7 Hospit a .3.677401 l .8 2022-01-09 2022-01-09 Anesthesia Carolyn Solorzano 1.2.840. 1 [id number] Methodi 12:26:00 15:04:00 Event Whitney Cano 66183.1.[address] 3.430.2.7 Hospit a .3.807232 l .8 2022-01-09 2022-01-09 Surgery Dyllan Albert 1.2.840.1 [id number] [id number] Methodi 11:27:00 13:02:[address] 3.430.2.7 Hospit a .3.007711 l .8 2022-01-09 2022-01-09 [facility] Dyllan Albert 1.2.840.1 [id number] 55008 Methodi 11:27:00 13:02:[address] 3.430.2.7 Hospit a .3.274744 l .8 2022-01-07 2022-01-07 [facility] Dyllan Albert 1.2.840.1 [id number] 2099 [id number] Methodi 10:05:52 23:59:[address] 3.430.2.7 Hospit a .3.843302 l .8 2022-01-07 2022-01-07 [facility] Dyllan Albert 1.2.840.1 [id number] Methodi 10:05:52 23:59:[address] 3.430.2.7 Hospit a .3.661410 l .8 2022-01-07 2022-01-07 Pre-Admiss Dyllan Albert 1.2.840.1 [id number] Methodi 09:00:00 10:00:[address] Testing 3.430.2.7 Hospit a .3.066502 l .8 2022-01-07 2022-01-07 Pre-Admiss Dyllan Albert 1.2.840.1 [id number] 21 [id number] Methodi 09:00:00 10:00:[address] Testing 3.430.2.7 Hospit a .3.274691 l .8 2022-01-07 2022-01-07 Travel 1.2.840.1 1.2.483.311 9815 229612 Methodi 00:00:00 00:00:[address] 3.430.2.7 0.2.7.3.698 Ho spita .3.739005 084.8 l .8 2022-01-07 2022-01-07 Travel 1.2.840.1 1.2.867.920 7372 049788 Methodi 00:00:00 00:00:[address] 3.430.2.7 0.2.7.3.698 Ho spita .3.279643 084.8 l .8 2022-01-01 2022-01-01 Prep for Antoinette, 1.2.840.1 [id number] 2 [id number] Methodi 00:00:00 00:00:00 Surgery April 39941.1.[address] 3.430.2.7 Hospit a .3.546636 l .8 2022-01-01 2022-01-01 Prep for Antoinette, 1.2.840.1 [id number] 2 [id number] Methodi 00:00:00 00:00:00 Surgery April [address]455.1.[address] 3.430.2.7 Hospit a .3.014942 l .8 2021-12-26 2021-12-26 Telephone Omer, 1.2.840.1 [id number] 21 [id number] Methodi 00:00:00 00:00:[address] 3.430.2.7 Hospit a .3.319467 l .8 2021-12-26 2021-12-26 Telephone Omer, 1.2.840.1 [id number] 21 [id number] Methodi 00:00:00 00:00:[address] 3.430.2.7 Hospit a .3.535769 l .8 2021-12-25 2021-12-25 Telephone Antoinette, 1.2.840.1 [id number] Methodi 00:00:00 00:00:[address] 3.430.2.7 Hospit a .3.742291 l .8 2021-12-25 2021-12-25 Telephone Antoinette, 1.2.840.1 [id number] Methodi 00:00:00 00:00:[address] 3.430.2.7 Hospit a .3.382172 l .8 2021-09-06 2021-09-06 Lab [facility] [id number] 00:00:00 00:00:00 [facility] 2021-05-13 2021-05-13 Letter SALBADOR Cabrera 1.2.840.114 [id number] 12 [facility] 00:00:00 00:00:00 (Out) Desi CONRAD 350.1.13.10 it y of [facility] 4.2.7.[address] [facility] [phone] [facility] [address] 2021-05-12 2021-05-12 Emergency X [facility] ERT [id number] [facility] 08:47:00 11:17:00 TURNER rodriguez [facility] 2021-05-12 2021-05-12 [facility] 1.2.797.417 [id number] [id number] Univers 08:47:00 11:17:00 Turner Chahal FRANK 350.1.13.10 [facility] 4.2.7.2.686 [facility] [phone] [address] Results Test Description Test Time Test Comments Results Result Comments Source POC glucose 2022-01-09 21:00:00 Test Item Value Reference Range Interpretation Comme nts POC glucose (test code = 214 mg/dL 65-99 H Ope rator Name: Joshua Beltran [id number]) ID: [id number] hartable: RN Notified Lab Interpretation (test code = Abnormal 62228-3) [facility] [id number] 21:00:00 Test Item Value Reference Range Interpretation Comments POC glucose (test code = 214 mg/dL 65-99 H Ope rator Name: [id number]) Joshua haywood ID: [id number] able: RN Notified Lab Interpretation (test Abnormal code = 46552-4) [facility] [id number] 21:00:00 Test Item Value Reference Range Interpretation Comments POC glucose (test code = 214 mg/dL 65-99 H Ope rator Name: [id number]) Joshua haywood ID: [id number] able: RN Notified Lab Interpretation (test Abnormal code = 51715-3) [facility] [id number] 21:00:00 Test Item Value Reference Range Interpretation Comments POC glucose (test code = 214 mg/dL 65-99 H Ope rator Name: [id number]) Joshua haywood ID: [id number] able: RN Notified Lab Interpretation (test Abnormal code = 44518-4) [facility]2022-09-21 21:00:00 Test Item Value Reference Range Interpretation Comments POC glucose (test code = 214 mg/dL 65-99 H Ope rator Name: [id number]) Joshua haywood ID: [id number] able: RN Notified Lab Interpretation (test Abnormal code = 82413-2) [facility]2022-09-21 21:00:00 Test Item Value Reference Range Interpretation Comments POC glucose (test code = 214 mg/dL 65-99 H Ope rator Name: [id number]) Joshua haywood ID: [id number] able: RN Notified Lab Interpretation (test Abnormal code = 87977-7) [facility]2022-09-21 21:00:00 Test Item Value Reference Range Interpretation Comments POC glucose (test code = 214 mg/dL 65-99 H Ope rator Name: [id number]) Joshua haywood ID: [id number] able: RN Notified Lab Interpretation (test Abnormal code = 84802-1) [facility]2022-09-21 21:00:00 Test Item Value Reference Range Interpretation Comments POC glucose (test code = 214 mg/dL 65-99 H Ope rator Name: [id number]) Joshua haywood ID: [id number] able: RN Notified Lab Interpretation (test Abnormal code = 70675-1) [facility]2022-09-21 21:00:00 Test Item Value Reference Range Interpretation Comments POC glucose (test code = 214 mg/dL 65-99 H Ope rator Name: [id number]) Joshua haywood ID: [id number] able: RN Notified Lab Interpretation (test Abnormal code = 61512-1) [facility]2022-09-21 21:00:00 Test Item Value Reference Range Interpretation Comments POC glucose (test code = 214 mg/dL 65-99 H Ope rator Name: [id number]) Joshua haywood ID: [id number] able: RN Notified Lab Interpretation (test Abnormal code = 97125-3) [facility]2022-09-21 13:44:01 Test Item Value Reference Range Interpretation Comments POC sodium (test code = 135 mmol/L 971-726 5675-0) POC potassium (test 4.5 mmol/L 3.5-5.0 code = 6298-4) POC glucose (test code 280 mg/dL 65-99 H = 2339-0) POC creatinine (test 6.0 mg/dl 0.7-1.2 H Operato r Name: code = 85369-2) Israel Roldan ID : [id number] POC hemoglobin (test 11.9 g/dL 14.0-18.0 L code = 718-7) POC hematocrit (test 35 % 41-51 L code = 4544-3) Lab Interpretation Abnormal (test code = 03031-2) [facility]2022-09-21 13:44:01 Test Item Value Reference Range Interpretation Comments POC sodium (test code = 135 mmol/L 791-658 6914-0) POC potassium (test 4.5 mmol/L 3.5-5.0 code = 6298-4) POC glucose (test code 280 mg/dL 65-99 H = 2339-0) POC creatinine (test 6.0 mg/dl 0.7-1.2 H Operato r Name: code = 90130-0) Israel Roldan ID : [id number] POC hemoglobin (test 11.9 g/dL 14.0-18.0 L code = 718-7) POC hematocrit (test 35 % 41-51 L code = 4544-3) Lab Interpretation Abnormal (test code = 94143-5) [facility]2022-09-21 13:44:01 Test Item Value Reference Range Interpretation Comments POC sodium (test code = 135 mmol/L 592-834 7687-0) POC potassium (test 4.5 mmol/L 3.5-5.0 code = 6298-4) POC glucose (test code 280 mg/dL 65-99 H = 2339-0) POC creatinine (test 6.0 mg/dl 0.7-1.2 H Operato r Name: code = 34997-4) [facility] : [id number] POC hemoglobin (test 11.9 g/dL 14.0-18.0 L code = 718-7) POC hematocrit (test 35 % 41-51 L code = 4544-3) Lab Interpretation Abnormal (test code = 52850-5) [facility]2022-09-21 13:44:01 Test Item Value Reference Range Interpretation Comments POC sodium (test code = 135 mmol/L 582-902 0519-0) POC potassium (test 4.5 mmol/L 3.5-5.0 code = 6298-4) POC glucose (test code 280 mg/dL 65-99 H = 2339-0) POC creatinine (test 6.0 mg/dl 0.7-1.2 H Operato r Name: code = 00925-5) [facility] [id number] POC hemoglobin (test 11.9 g/dL 14.0-18.0 L code = 718-7) POC hematocrit (test 35 % 41-51 L code = 4544-3) Lab Interpretation Abnormal (test code = 09138-8) [facility]2022-09-21 13:44:01 Test Item Value Reference Range Interpretation Comments POC sodium (test code = 135 mmol/L 106-122 8159-0) POC potassium (test 4.5 mmol/L 3.5-5.0 code = 6298-4) POC glucose (test code 280 mg/dL 65-99 H = 2339-0) POC creatinine (test 6.0 mg/dl 0.7-1.2 H Operato r Name: code = 72726-7) [facility] [id number] POC hemoglobin (test 11.9 g/dL 14.0-18.0 L code = 718-7) POC hematocrit (test 35 % 41-51 L code = 4544-3) Lab Interpretation Abnormal (test code = 63397-2) [facility]2022-09-21 13:44:01 Test Item Value Reference Range Interpretation Comments POC sodium (test code = 135 mmol/L 372-111 4977-0) POC potassium (test 4.5 mmol/L 3.5-5.0 code = 6298-4) POC glucose (test code 280 mg/dL 65-99 H = 2339-0) POC creatinine (test 6.0 mg/dl 0.7-1.2 H Operato r Name: code = 86616-4) Wood Rosachastity ID : [id number] POC hemoglobin (test 11.9 g/dL 14.0-18.0 L code = 718-7) POC hematocrit (test 35 % 41-51 L code = 4544-3) Lab Interpretation Abnormal (test code = 95376-0) [facility]2022-09-21 13:44:01 Test Item Value Reference Range Interpretation Comments POC sodium (test code = 135 mmol/L 612-637 6035-0) POC potassium (test 4.5 mmol/L 3.5-5.0 code = 6298-4) POC glucose (test code 280 mg/dL 65-99 H = 2339-0) POC creatinine (test 6.0 mg/dl 0.7-1.2 H Operato r Name: code = 03964-8) Israel Leechastity ID : [id number] POC hemoglobin (test 11.9 g/dL 14.0-18.0 L code = 718-7) POC hematocrit (test 35 % 41-51 L code = 4544-3) Lab Interpretation Abnormal (test code = 34621-2) [facility]2022-09-21 13:44:01 Test Item Value Reference Range Interpretation Comments POC sodium (test code = 135 mmol/L 358-889 0853-0) POC potassium (test 4.5 mmol/L 3.5-5.0 code = 6298-4) POC glucose (test code 280 mg/dL 65-99 H = 2339-0) POC creatinine (test 6.0 mg/dl 0.7-1.2 H Operato r Name: code = 29540-2) Israel Mireleskassy ID : [id number] POC hemoglobin (test 11.9 g/dL 14.0-18.0 L code = 718-7) POC hematocrit (test 35 % 41-51 L code = 4544-3) Lab Interpretation Abnormal (test code = 72433-6) [facility]2022-09-21 13:44:01 Test Item Value Reference Range Interpretation Comments POC sodium (test code = 135 mmol/L 770-162 2020-0) POC potassium (test 4.5 mmol/L 3.5-5 code = 6298-4) POC glucose (test code 280 mg/dL 65-99 H = 2339-0) POC creatinine (test 6.0 mg/dl 0.7-1.2 H Operato r Name: code = 02664-0) Israel Roldan ID : [id number] POC hemoglobin (test 11.9 g/dL 14-18 L code = 718-7) POC hematocrit (test 35 % 41-51 L code = 4544-3) Lab Interpretation Abnormal (test code = 07265-4) [facility] [id number] 13:44:01 Test Item Value Reference Range Interpretation Comments POC sodium (test code = 135 mmol/L 157-256 7222-0) POC potassium (test 4.5 mmol/L 3.5-5.0 code = 6298-4) POC glucose (test code 280 mg/dL 65-99 H = 2339-0) POC creatinine (test 6.0 mg/dl 0.7-1.2 H Operato r Name: code = 89451-0) Israle Roldan ID : [id number] POC hemoglobin (test 11.9 g/dL 14.0-18.0 L code = 718-7) POC hematocrit (test 35 % 41-51 L code = 4544-3) Lab Interpretation Abnormal (test code = 95274-1) [facility] [id number] 13:44:00 Test Item Value Reference Range Interpretation Comments Estimated GFR (test mL/min/1.73 m2 A Edwina ory Units code = 15712-5) Interpretati onG1 >=90 Normal or highG 2 60-89 Mildly decrease dG3a 45-59 Mildly to moderately decr wzoawV9g 30-44 Moderatel y to severely decrea sedG4 15-29 Severely decreasedG5 <15 Kidney failureThe eGFR was calculated mary anne ibarra the Chronic Kidney Disease Epidemiology Collaboration ( CKD-EPI) equation. Interpretation is based on recommendati ons of the National [facility] ey Disease Outcome s Quality Initiat marshall (NKF-KDOQI) pub lished in 2013. Lab Interpretation Abnormal (test code = 45542-8) [facility] [id number] 13:44:00 Test Item Value Reference Range Interpretation Comments Estimated GFR (test mL/min/1.73 m2 A Caterg ory Units code = 64120-7) Interpretati onG1 >=90 Normal or highG 2 60-89 Mildly decrease dG3a 45-59 Mildly to moderately decr sonmjQ2s 30-44 Moderatel y to severely decrea sedG4 15-29 Severely decreasedG5 <15 Kidney failureThe eGFR was calculated usin g the Chronic Kidney Disease Epidemiology Collaboration ( CKD-EPI) equation. Interpretation is based on recommendati ons of the [facility] Disease Outcome s Quality Initiat marshall ([facility]-KDOQI) pub lished in 2013. Lab Interpretation Abnormal (test code = 75795-2) [facility] [id number] 13:44:00 Test Item Value Reference Range Interpretation Comments Estimated GFR (test mL/min/1.73 m2 A Caterg ory Units code = 64105-7) Interpretati onG1 >=90 Normal or highG 2 60-89 Mildly decrease dG3a 45-59 Mildly to moderately decr naehhQ6t 30-44 Moderatel y to severely decrea sedG4 15-29 Severely decreasedG5 <15 Kidney failureThe eGFR was calculated usin g the Chronic Kidney Disease Epidemiology Collaboration ( CKD-EPI) equation. Interpretation is based on recommendati ons of the [facility] Disease Outcome s Quality Initiat marshall (NK-KDOQI) pub lished in 2013. Lab Interpretation Abnormal (test code = 25137-7) [facility] [id number] 13:44:00 Test Item Value Reference Range Interpretation Comments Estimated GFR (test 10 mL/min/1.73 m2 A Caterg ory Units code = 82411-6) Interpretati onG1 >=90 Normal or highG 2 60-89 Mildly decrease dG3a 45-59 Mildly to moderately decr koastZ9n 30-44 Moderatel y to severely decrea sedG4 15-29 Severely decreasedG5 <15 Kidney failureThe eGFR was calculated usin g the Chronic Kidney Disease Epidemiology Collaboration ( CKD-EPI) equation. Interpretation is based on recommendati ons of the [facility] Disease Outcome s Quality Initiat marshall ([facility]-K[facility]) pub lished in 2013. Lab Interpretation Abnormal (test code = 40756-9) [facility] [id number] 13:44:00 Test Item Value Reference Range Interpretation Comments Estimated GFR (test 10 mL/min/1.73 m2 A Caterg ory Units code = 65326-9) Interpretati onG1 >=90 Normal or highG 2 60-89 Mildly decrease dG3a 45-59 Mildly to moderately decr cycohH2q 30-44 Moderatel y to severely decrea sedG4 15-29 Severely decreasedG5 <15 Kidney failureThe eGFR was calculated usin g the Chronic Kidney Disease Epidemiology Collaboration ( CKD-EPI) equation. Interpretation is based on recommendati ons of the [facility] Disease Outcome s Quality Initiat marshall ([facility]) pub lished in 2013. Lab Interpretation Abnormal (test code = 44789-9) [facility] [id number] 13:44:00 Test Item Value Reference Range Interpretation Comments Estimated GFR (test 10 mL/min/1.73 m2 A Caterg ory Units code = 11764-2) Interpretati onG1 >=90 Normal or highG 2 60-89 Mildly decrease dG3a 45-59 Mildly to moderately decr feonwO2h 30-44 Moderatel y to severely decrea sedG4 15-29 Severely decreasedG5 <15 Kidney failureThe eGFR was calculated usin g the Chronic Kidney Disease Epidemiology Collaboration ( CKD-EPI) equation. Interpretation is based on recommendati ons of the [facility] Disease Outcome s Quality Initiat marshall ([facility]) pub lished in 2013. Lab Interpretation Abnormal (test code = 93262-8) [facility] [id number] 13:44:00 Test Item Value Reference Range Interpretation Comments Estimated GFR (test 10 mL/min/1.73 m2 A Caterg ory Units code = 93445-5) Interpretati onG1 >=90 Normal or highG 2 60-89 Mildly decrease dG3a 45-59 Mildly to moderately decr jqytnW0k 30-44 Moderatel y to severely decrea sedG4 15-29 Severely decreasedG5 <15 Kidney failureThe eGFR was calculated usin g the Chronic Kidney Disease Epidemiology Collaboration ( CKD-EPI) equation. Interpretation is based on recommendati ons of the [facility] Disease Outcome s Quality Initiat marshall (NK-KDOQI) pub lished in 2013. Lab Interpretation Abnormal (test code = 57055-1) [facility] [id number] 13:44:00 Test Item Value Reference Range Interpretation Comments Estimated GFR (test 10 mL/min/1.73 m2 A Caterg ory Units code = 45185-6) Interpretati onG1 >=90 Normal or highG 2 60-89 Mildly decrease dG3a 45-59 Mildly to moderately decr xnfqzY7i 30-44 Moderatel y to severely decrea sedG4 15-29 Severely decreasedG5 <15 Kidney failureThe eGFR was calculated usin g the Chronic Kidney Disease Epidemiology Collaboration ( CKD-EPI) equation. Interpretation is based on recommendati ons of the [facility] Disease Outcome s Quality Initiat marshall ([facility]) pub lished in 2013. Lab Interpretation Abnormal (test code = 83132-5) [facility] [id number] 13:44:00 Test Item Value Reference Range Interpretation Comments Estimated GFR (test mL/min/1.73 m2 A Caterg ory Units code = 85431-0) Interpretati onG1 >=90 Normal or highG 2 60-89 Mildly decrease dG3a 45-59 Mildly to moderately decr liugsD2r 30-44 Moderatel y to severely decrea sedG4 15-29 Severely decreasedG5 <15 Kidney failureThe eGFR was calculated usin g the Chronic Kidney Disease Epidemiology Collaboration ( CKD-EPI) equation. Interpretation is based on recommendati ons of the [facility] Disease Outcome s Quality Initiat marshall ([facility]) pub lished in 2013. Lab Interpretation Abnormal (test code = 41614-9) [facility] [id number] 13:44:00 Test Item Value Reference Range Interpretation Comments Estimated GFR (test 10 mL/min/1.73 m2 A Caterg ory Units code = 21834-4) Interpretati onG1 >=90 Normal or highG 2 60-89 Mildly decrease dG3a 45-59 Mildly to moderately decr zsvqvS5v 30-44 Moderatel y to severely decrea sedG4 15-29 Severely decreasedG5 <15 Kidney failureThe eGFR was calculated usin g the Chronic Kidney Disease Epidemiology Collaboration ( CKD-EPI) equation. Interpretation is based on recommendati ons of the [facility] Disease Outcome s Quality Initiat marshall (NKF-KDOQI) [facility]. Lab Interpretation Abnormal (test code = 68812-9) [facility] [Presence] in Respiratory specimen by YESENIA with probe [id number] 17:48:52 Test Item Value Reference Range Interpretation Comments SARS-CoV-2 (COVID-19) RNA Not detected [Presence] in Respiratory specimen by YESENIA with probe detection (test code = 44882-6) Whether patient is employed in a Unknown healthcare setting (test code = 20469-7) Whether the patient has symptoms Unknown related to condition of interest (test code = 60514-6) Whether the patient was Unknown hospitalized for condition of interest (test code = 98502-9) Whether the patient was admitted Unknown to intensive care unit (ICU) for condition of interest (test code = 05546-7) Whether patient resides in a Unknown congregate care setting (test code = 85833-8) status (test code = Unknown 38596-6) Date and time of symptom onset Unknown (test code = 06913-1) [facility] Pre/Post [id number] 17:20:24 Test Item Value Reference Range Interpretation Comments Ventricular rate (test code = 253) Atrial rate (test code = 255) IN interval (test code = 266) QRSD interval [...] previous ECGs available- [facility] Pre/Post [id number] 17:20:24 Test Item Value Reference Range Interpretation Comments Ventricular rate (test code = 253) Atrial rate (test code = 255) IN interval (test code = 266) QRSD interval [...] previous ECGs available- [facility] Pre/Post [id number] 17:20:24 Test Item Value Reference Range Interpretation Comments Ventricular rate (test code = 253) Atrial rate (test code = 255) IN interval (test code = 266) QRSD interval [...] previous ECGs available- [facility] Pre/Post [id number] 17:20:24 Test Item Value Reference Range Interpretation Comments Ventricular rate 91 (test code = 253) Atrial rate (test 91 code = 255) IN interval (test 114 code = 266) QRSD [...] previous ECGs available- [facility] Pre/Post [id number] 17:20:24 Test Item Value Reference Range Interpretation Comments Ventricular rate 91 (test code = 253) Atrial rate (test 91 code = 255) IN interval (test 114 code = 266) QRSD [...] previous ECGs available- [facility] Pre/Post [id number] 17:20:24 Test Item Value Reference Range Interpretation Comments Ventricular rate 91 (test code = 253) Atrial rate (test 91 code = 255) IN interval (test 114 code = 266) QRSD [...] previous ECGs available- [facility] Pre/Post [id number] 17:20:24 Test Item Value Reference Range Interpretation Comments Ventricular rate 91 (test code = 253) Atrial rate (test 91 code = 255) IN interval (test 114 code = 266) QRSD [...] previous ECGs available- [facility] Pre/Post [id number] 17:20:24 Test Item Value Reference Range Interpretation Comments Ventricular rate 91 (test code = 253) Atrial rate (test 91 code = 255) IN interval (test 114 code = 266) QRSD [...] previous ECGs available- [facility] Pre/Post [id number] 17:20:24 Test Item Value Reference Range Interpretation Comments Ventricular rate (test code = 253) Atrial rate (test code = 255) IN interval (test code = 266) QRSD interval [...] previous ECGs available- [facility] Pre/Post [id number] 17:20:24 Test Item Value Reference Range Interpretation Comments Ventricular rate 91 (test code = 253) Atrial rate (test 91 code = 255) IN interval (test 114 code = 266) QRSD [...] ECG-No previous ECGs available- [facility] 15:46:00 Test Item Value Reference Range Interpretation Comments Urine culture (test SEE COMMENT Bacteriu lashell screen code = 0878274) negative. [facility] [id number] 15:46:00 Test Item Value Reference Range Interpretation Comments Urine culture (test SEE COMMENT Bacteriu lashell screen code = 2417754) negative. [facility]2022-09-19 15:46:00 Test Item Value Reference Range Interpretation Comments Urine culture (test SEE COMMENT Bacteriu lashell screen code = 4230638) negative. [facility]2022-09-19 15:46:00 Test Item Value Reference Range Interpretation Comments Urine culture (test SEE COMMENT Bacteriu lashell screen code = 9632507) negative. [facility]2022-09-19 15:46:00 Test Item Value Reference Range Interpretation Comments Urine culture (test SEE COMMENT Bacteriu lashell screen code = 8814987) negative. [facility]2022-09-19 15:46:00 Test Item Value Reference Range Interpretation Comments Urine culture (test SEE COMMENT Bacteriu lashell screen code = 6912530) negative. [facility]2022-09-19 15:46:00 Test Item Value Reference Range Interpretation Comments Urine culture (test SEE COMMENT Bacteriu lashell screen code = 3048464) negative. [facility]2022-09-19 15:46:00 Test Item Value Reference Range Interpretation Comments Urine culture (test SEE COMMENT Bacteriu lashell screen code = 5837713) negative. [facility]2022-09-19 15:46:00 Test Item Value Reference Range Interpretation Comments Urine culture (test SEE COMMENT Bacteriu lashell screen code = 8984509) negative. [facility]2022-09-19 15:46:00 Test Item Value Reference Range Interpretation Comments Urine culture (test SEE COMMENT Bacteriu lashell screen code = 4698199) negative. [facility] surface [id number] 22:01:34 Test Item Value Reference Range Interpretation Comments Hep B S Ab (test code See_Comment [Auto mated = 98639-9) message] The system which generated this result transmit brad reference range : <8.0 mIU/mL. Th e reference range was not used to interpret this result as normal/abnormal . TALIB (test code = TALIB) [employer] ID - DB Lab Interpretation Normal (test code = 02174-7) [facility] surface [id number] 22:01:34 Test Item Value Reference Range Interpretation Comments Hep B S Ab (test code <8.0 See_Comment [Auto mated = 67560-9) message] The system which generated this result transmit brad reference range : <8.0 mIU/mL. Th e reference range was not used to interpret this result as normal/abnormal . TALIB (test code = TALIB) [employer] ID - DB Lab Interpretation Normal (test code = 91267-8) [facility] [id number] 22:01:34 Test Item Value Reference Range Interpretation Comments Hep B S Ab (test code <8.0 See_Comment [Auto mated = 12740-6) message] The system which generated this result transmit brad reference range : <8.0 mIU/mL. Th e reference range was not used to interpret this result as normal/abnormal . TALIB (test code = TALIB) [employer] ID - DB Lab Interpretation Normal (test code = 14792-0) [facility] [id number] 22:01:34 Test Item Value Reference Range Interpretation Comments Hep B S Ab (test code <8.0 See_Comment [Auto mated = 25441-9) message] The system which generated this result transmit brad reference range : <8.0 mIU/mL. Th e reference range was not used to interpret this result as normal/abnormal . TALIB (test code = TALIB) [employer] ID - DB Lab Interpretation Normal (test code = 33452-7) [facility] [id number] 22:01:34 Test Item Value Reference Range Interpretation Comments Hep B S Ab (test code <8.0 See_Comment [Auto mated = 85990-1) message] The system which generated this result transmit brad reference range : <8.0 mIU/mL. Th e reference range was not used to interpret this result as normal/abnormal . TALIB (test code = TALIB) [employer] ID - DB Lab Interpretation Normal (test code = 77836-6) [facility] [id number] 22:01:34 Test Item Value Reference Range Interpretation Comments Hep B S Ab (test code <8.0 See_Comment [Auto mated = 20871-7) message] The system which generated this result transmit brad reference range : <8.0 mIU/mL. Th e reference range was not used to interpret this result as normal/abnormal . TALIB (test code = TALIB) [employer] ID - DB Lab Interpretation Normal (test code = 20557-6) [facility] [id number] 22:01:34 Test Item Value Reference Range Interpretation Comments Hep B S Ab (test code <8.0 See_Comment [Auto mated = 04861-5) message] The system which generated this result transmit brad reference range : <8.0 mIU/mL. Th e reference range was not used to interpret this result as normal/abnormal . TALIB (test code = TALIB) [employer] ID - DB Lab Interpretation Normal (test code = 78371-8) [facility]FACE [id number] 22:01:34 Test Item Value Reference Range Interpretation Comments HEPATITIS B SURFACE ANTIBODY < mIU/mL <8.0 (BEAKER) (test code = 647) [employer] [facility] ID - DBHepatitis B core antibody, [id number] 21:52:25 Test Item Value Reference Range Interpretation Comments Hep B C IgM (test code = Nonreactive Nonreactive 88766-6) TALIB (test code = TALIB) [employer] ID - DB Lab Interpretation (test Normal code = 06221-7) [facility], [id number] 21:52:25 Test Item Value Reference Range Interpretation Comments Hep B C IgM (test code = Nonreactive Nonreactive 05201-0) TALIB (test code = TALIB) [employer] ID - DB Lab Interpretation (test Normal code = 48613-1) [facility], [id number] 21:52:25 Test Item Value Reference Range Interpretation Comments Hep B C IgM (test code = Nonreactive Nonreactive 30851-3) TALIB (test code = TALIB) [employer] ID - DB Lab Interpretation (test Normal code = 78343-3) [facility], [id number] 21:52:25 Test Item Value Reference Range Interpretation Comments Hep B C IgM (test code = Nonreactive Nonreactive 28383-8) TALIB (test code = TALIB) [employer] ID - DB Lab Interpretation (test Normal code = 41496-0) [facility], [id number] 21:52:25 Test Item Value Reference Range Interpretation Comments Hep B C IgM (test code = Nonreactive Nonreactive 02520-7) TALIB (test code = TALIB) [employer] ID - DB Lab Interpretation (test Normal code = 63996-0) [facility] core antibody, [id number] 21:52:25 Test Item Value Reference Range Interpretation Comments Hep B C IgM (test code = Nonreactive Nonreactive 78312-7) TALIB (test code = TALIB) [employer] ID - DB Lab Interpretation (test Normal code = 16406-4) [facility], [id number] 21:52:25 Test Item Value Reference Range Interpretation Comments Hep B C IgM (test code = Nonreactive Nonreactive 93940-9) TALIB (test code = TALIB) [employer] ID - DB Lab Interpretation (test Normal code = 10894-6) [facility] CORE ANTIBODY, [id number] 21:52:25 Test Item Value Reference Range Interpretation Comments HEPATITIS B CORE IGM ANTIBODY Nonreactive Nonreactive (BEAKER) (test code = 645) [employer] [facility] ID - [facility]Hesaint el[facility] hebrontis B surface [id number] 21:52:19 Test Item Value Reference Range Interpretation Comments Hepatitis B surface Nonreactive Nonreactive antigen (test code = 5195-3) TALIB (test code = TALIB) Specimen is considered negative for HBsAg. Lab Interpretation (test Normal code = 75941-3) [facility] [id number] 21:52:19 Test Item Value Reference Range Interpretation Comments Hepatitis B surface Nonreactive Nonreactive antigen (test code = 5195-3) TALIB (test code = TALIB) Specimen is considered negative for HBsAg. Lab Interpretation (test Normal code = 85799-1) [facility] [id number] 21:52:19 Test Item Value Reference Range Interpretation Comments Hepatitis B surface Nonreactive Nonreactive antigen (test code = 5195-3) TALIB (test code = TALIB) Specimen is considered negative for HBsAg. Lab Interpretation (test Normal code = 91214-7) [facility] [id number] 21:52:19 Test Item Value Reference Range Interpretation Comments Hepatitis B surface Nonreactive Nonreactive antigen (test code = 5195-3) TALIB (test code = TALIB) Specimen is considered negative for HBsAg. Lab Interpretation (test Normal code = 65999-4) [facility] surface [id number] 21:52:19 Test Item Value Reference Range Interpretation Comments Hepatitis B surface Nonreactive Nonreactive antigen (test code = 5195-3) TALIB (test code = TALIB) Specimen is considered negative for HBsAg. Lab Interpretation (test Normal code = 73539-5) [facility] [id number] 21:52:19 Test Item Value Reference Range Interpretation Comments Hepatitis B surface Nonreactive Nonreactive antigen (test code = 5195-3) TALIB (test code = TALIB) Specimen is considered negative for HBsAg. Lab Interpretation (test Normal code = 28781-3) [facility] surface [id number] 21:52:19 Test Item Value Reference Range Interpretation Comments Hepatitis B surface Nonreactive Nonreactive antigen (test code = 5195-3) TALIB (test code = TALIB) Specimen is considered negative for HBsAg. Lab Interpretation (test Normal code = 29144-5) [facility] [id number] 21:52:19 Test Item Value Reference Range Interpretation Comments HEPATITIS B SURFACE ANTIGEN (2) Nonreactive Nonreactive (BEAKER) (test code = 2585) Specimen is considered negative for HBsAg.
[2022-12-09] MEDS ORDERED: ASPIRIN 81 MG CHEWABLE TABLET ONE (22:19)
[2022-12-09 22:29] LABS: Absolute Lymphocytes (CBC) 2.7 K/uL (0.7-4.9); Hematocrit 33.8 % (39.6-49.0); Lymphocytes % 26.2 % (15.3-44.8); MCV 86.4 fL (80-100); MPV 7.8 fL (7.6-11.3); Platelets 215 thou/uL (152-406); Protime INR 0.93; RBC Red Blood Cell Count 3.91 M/uL (4.33-5.43)
[2022-12-09 22:37] LABS: Magnesium 1.7 mg/dL (1.6-2.4); Potassium 5.4 mEq/L (3.5-5.1); Troponin High Sensitivity 19.6 pg/mL (<58.9)
[2022-12-09] MEDS ORDERED: INSULIN -REGULAR HUMAN 50 UNIT/0.5 ML ML ONE (23:08)
[2022-12-09] MEDS ORDERED: HYDRALAZINE HCL 20 MG/ML VIAL ONE (23:10)
[2022-12-09] MEDS ORDERED: SOD POLYSTYREN SUL 15 GM/60 ML UCUP ONE (23:12)
[2022-12-09] MEDS ORDERED: ALBUTEROL 2.5 MG/3 ML NEB SOL ONE (23:12)
[2022-12-09] MEDS ORDERED: D10W 250 ML IV ONE (23:17)
[2022-12-10 01:35] LABS: Potassium 4.6 mEq/L (3.5-5.1); Troponin High Sensitivity 19.9 pg/mL (<58.9)
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
--- NOTE | 2022-12-10 02:03 | ER ---
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 Coronavirus screen: Vaccine status: Patient reports receiving the 2nd dose of the covid vaccine. Ebola Screen: Patient negative for fever greater than or equal to 101.5 degrees Fahrenheit, and additional compatible Ebola Virus Disease symptoms. Initial Sepsis Screen: Does the patient meet any 2 criteria? No. Patient's initial sepsis screen is negative. Does the patient have a suspected source of infection?. Risk Assessment: Do you want to hurt yourself or someone else? Patient reports no desire to harm self or others. 21:07 Method Of Arrival: Ambulatory kl 21:07 Acuity: EDIN[place] 3 kl 22:15 Onset of symptoms was December 09, 2022 at 20:00. jw7 Triage Assessment: 21:14 General: Appears in no apparent distress. comfortable, Behavior is calm, cooperative. kl Pain: Complains of pain in anterior aspect of left upper chest Pain currently is 6 out of 10 on a pain scale. Cardiovascular: Reports chest pain, Dialysis shunt: with palpable thrill. Respiratory: No deficits noted. GI: No deficits noted. No signs and/or symptoms were reported involving the gastrointestinal system. : No deficits noted. No signs and/or symptoms were reported regarding the genitourinary system. Derm: No deficits noted. No signs and/or symptoms reported regarding the dermatologic system. Musculoskeletal:. Historical: - Allergies: 21:11 No Known Allergies; kl - PMHx: 21:11 ESRD; IDDM; Hypertension; Congestive heart failure; Neuropathy; kl - PSHx: 21:11 left arm Fistula; kl - Immunization history:: Adult Immunizations up to date. - Social history:: Smoking status: Patient denies any tobacco usage or history of. Screenin:14 [facility] ED Fall Risk Assessment (Adult) History of falling in the last 3 months, jw7 including since admission No falls in past 3 months (0 pts) Score/Fall Risk Level 0 - 2 = Low Risk. Abuse screen: Denies threats or abuse. Denies injuries from another. Nutritional screening: No deficits noted. Tuberculosis screening: No symptoms or risk factors identified. Assessment: 22:13 General: See Triage Assessment. jw7 22:14 Reassessment: Patient appears in no apparent distress at this time. No changes from jw7 previously documented assessment. Patient and/or family updated on plan of care and expected duration. Pain level reassessed. Patient is alert, oriented x 3, equal unlabored respirations, skin warm/dry/pink. 23:24 Reassessment: Patient appears in no apparent distress at this time. No changes from jw7 previously documented assessment. Patient and/or family updated on plan of care and expected duration. Pain level reassessed. Patient is alert, oriented x 3, equal unlabored respirations, skin warm/dry/pink. 12/10 00:26 Reassessment: Patient appears in no apparent distress at this time. Patient and/or jw7 family updated on plan of care and expected duration. Pain level reassessed. Patient is alert, oriented x 3, equal unlabored respirations, skin warm/dry/pink. Patient states feeling better. 01:36 Reassessment: Patient appears in no apparent distress at this time. No changes from jw7 previously documented assessment. Patient and/or family updated on plan of care and expected duration. Pain level reassessed. Patient is alert, oriented x 3, equal unlabored respirations, skin warm/dry/pink. 02:20 Reassessment: Patient appears in no apparent distress at this time. Patient and/or jw7 family updated on plan of care and expected duration. Pain level reassessed. Patient is alert, oriented x 3, equal unlabored respirations, skin warm/dry/pink. Patient states feeling better. Patient states symptoms have improved. Vital Signs: 12/09 21:07 BP 186 / 97; Pulse 88; Resp 18; Temp 97.2(TE); Pulse Ox 100% on R/A; kl 22:14 BP 181 / 89; Pulse 88; Resp 18 S; Pulse Ox 100% on R/A; jw7 23:15 BP 182 / 96; Pulse 77; Resp 17 S; Pulse Ox 100% on R/A; jw7 23:45 BP 165 / 84; Pulse 82; Resp 18 S; Pulse Ox 100% on R/A; jw7 12/10 00:15 BP 147 / 82; Pulse 87; Resp 17 S; Pulse Ox 99% on R/A; jw7 01:36 BP 149 / 78 Sitting; Pulse 78; Resp 14 S; Pulse Ox 98% on R/A; jw7 02:15 BP 184 / 96; Pulse 79; Resp 14 S; Pulse Ox 99% on R/A; jw7 ED Course: 12/09 21:04 Patient arrived in ED. mr 21:04 Ramon Romo MD is Private Physician. mr 21:05 Elijah Voss PA is PHCP. cp 21:05 Ean Parisi MD is Attending Physician. cp 21:11 Triage completed. kl 21:16 EKG completed in triage. Results shown to MD. kl 21:58 Lilibeth Conrad, RN is Primary Nurse. jw7 22:12 Inserted saline lock: 20 gauge in right antecubital area, using aseptic technique. rv1 Blood collected. 22:13 Basic Metabolic Panel Sent. rv1 22:13 CBC with Diff Sent. rv1 22:13 Magnesium Sent. rv1 22:13 NT PRO-BNP Sent. rv1 22:13 PT-INR Sent. rv1 22:13 Troponin HS Sent. rv1 22:14 Patient has correct armband on for positive identification. Bed in low position. Call jw7 light in reach. Side rails up X2. 22:15 Arm band placed on left wrist. jw7 22:42 XRAY Chest (1 view) In Process Unspecified. EDMS 22:42 Foot Right 2 View XRAY In Process Unspecified. EDMS 12/10 01:09 Troponin High Sensitivity Sent. rv1 01:09 Potassium Sent. rv1 02:00 Mason Jasso MD is Referral Physician. cp 02:29 Provided Education on: discharge instructions. jw7 02:29 No provider procedures requiring assistance completed. IV discontinued, intact, jw7 bleeding controlled, No redness/swelling at site. Pressure dressing applied. Administered Medications: 12/09 22:13 Drug: Aspirin PO Chewable Tablet 324 mg Route: PO; jw7 22:52 Follow up: Response: No adverse reaction jw7 23:23 Drug: Albuterol Inhalation 2.5 mg Route: Inhalation; jw7 23:23 Drug: Kayexalate PO 30 grams Route: PO; jw7 12/10 00:28 Follow up: Response: No adverse reaction jw7 12/09 23:24 Drug: D50W IVP 25 ml Route: IVP; Site: right antecubital; jw7 12/10 00:29 Follow up: Response: No adverse reaction jw7 12/09 23:40 Drug: Insulin Regular Human IVP 10 units {Co-Signature: kd3 (Donna Rene RN).} jw7 Route: IVP; Site: right antecubital; 12/10 02:29 Follow up: Response: No adverse reaction jw7 12/09 23:40 Drug: hydrALAZINE IVP 10 mg Route: IVP; Site: right antecubital; jw7 12/10 00:28 Follow up: Response: No adverse reaction jw7 12/09 23:53 Drug: Albuterol Inhalation 2.5 mg Route: Inhalation; jw7 12/10 00:28 Drug: Albuterol Inhalation 2.5 mg Route: Inhalation; jw7 Medication: 02:30 VIS not applicable for this client. jw7 Outcome: 02:02 Discharge ordered by . loretta 02:29 Discharged to home ambulatory. jw7 02:29 Condition: stable 02:29 Discharge instructions given to patient, Instructed on discharge instructions, follow up and referral plans. Demonstrated understanding of instructions, follow-up care. 02:30 Patient left the ED. jw7 Signatures: Dispatcher [employer] Deborah Curry RN RN kl Rivera, Mary mr Elijah Voss PA PA Lilibeth Weber RN RN jwChelsea Fuentes rv1 Donna Rene RN kd3 Corrections: (The following items were deleted from the chart) 12/09 21: 21:11 PMHx: Diabetes - NIDDM; kl kl 21:14 21:11 PMHx: PERIPHERAL NEUROPATHY; kl kl 21: 21:11 PMHx: Hypertensive disorder; kl kl 21:14 21:11 PMHx: kidney disease; kl kl 21:14 21:11 PMHx: Dialysis; kl kl 21: 21:11 PSHx: fistula L arm; kl kl 21:14 21:11 PSHx: right leg (for circulation problem); kl kl
[2022-12-10 02:48] VITALS: TEMP 97.2
[2022-12-10 02:59] VITALS: BP 184/96; O2SAT 99
--- NOTE | 2022-12-10 14:29 | RAD REPORT ---
EXAM DESCRIPTION: RAD - Chest Single View - 12/09/2022 10:40 pm CLINICAL HISTORY: 7 years Male, CHEST PAIN COMPARISON: Chest radiograph dated 08/07/2022 FINDINGS: No focal lung consolidation. No pleural effusion. No pneumothorax. Cardiomediastinal silhouette is within normal limits. No acute osseous abnormality. IMPRESSION: No acute cardiopulmonary disease. Electronically signed by: Magdy Suazo DO 12/09/2022 11:01 PM CDT Due to temporary technical issues with the PACS/Fluency reporting system, reports are being signed by the in house radiologists without review as a courtesy to insure prompt reporting. The interpreting radiologist is fully responsible for the content of the report.
--- NOTE | 2022-12-10 14:44 | RAD REPORT ---
EXAM DESCRIPTION: RAD - Foot Right 2 View - 12/09/2022 10:40 pm CLINICAL HISTORY: 47 years Male, PAIN COMPARISON: None. IMPRESSION: No fracture or dislocation. Joint spaces are preserved. Advanced vascular calcifications. Soft tissues are unremarkable. Large calcaneal plantar spur. Calcific enthesophyte at the Achilles tendon insertion. Electronically signed by: Magdy Suazo DO 12/09/2022 11:01 PM CDT Due to temporary technical issues with the PACS/Fluency reporting system, reports are being signed by the in house radiologists without review as a courtesy to insure prompt reporting. The interpreting radiologist is fully responsible for the content of the report.
--- NOTE | 2022-12-10 15:50 | EKG ---
Test Date: 2022-12-10 Test Time: 01:04:32 Russian Teacher: RV MEASUREMENT RESULTS: Intervals: Rate: 84 CT: 116 QRSD: 94 QT: 396 QTc: 467 [place]: P: 52 CT: 116 QRS: -34 T: 54 INTERPRETIVE STATEMENTS: Normal sinus rhythm Left axis deviation Incomplete right bundle branch block Abnormal ECG Compared to ECG 09/29/2022 18:02:15 Incomplete right bundle-branch block now present Electronically Signed On 12-10-22 15:50:15 CDT by Mason Jasso
--- NOTE | 2022-12-11 13:00 | EKG ---
Test Date: 2022-12-09 Test Time: 21:16:40 Chief Human Resources Officer: LESLIE MEASUREMENT RESULTS: Intervals: Rate: 89 ID: [id number] QRSD: 86 QT: 366 QTc: 445 [place]: P: 52 ID: [id number] QRS: -41 T: 54 INTERPRETIVE STATEMENTS: Sinus rhythm with short ID Left axis deviation Abnormal ECG Compared to ECG 09/29/2022 18:02:15 Short ID interval now present Electronically Signed On 12-11-22 12:58:03 CDT by Mason Jasso
== END 2022-12-10 02:30 | disposition home or self-care (01) ==
LOC: ER 21:01
DX: E87.5 Hyperkalemia (principal); E11.22 Type 2 diabetes mellitus with diabetic chronic kidney disease; I13.2 Hypertensive heart and chronic kidney disease with heart failure and with stage 5 chronic kidney disease, or end stage renal disease; I50.9 Heart failure, unspecified; N18.6 End stage renal disease; M79.671 Pain in right foot
CPT/HCPCS: 93005 ×2; 85025; 80048; 36415; 83735; 84132; 85610; 82947; 84484 ×2; 83880; 71045; 73620; 96375; 96374; 99285; J1815; J0360; J7613

== ENCOUNTER 2023-02-26 06:19 | Day surgery (SDC) | payer BC, OTHER ==
[2023-02-21 10:57] LABS: Potassium 4.5 mEq/L (3.5-5.1)
[2023-02-26] MEDS ORDERED: NA CHLORIDE 0.9% 500 ML ONE (06:55)
[2023-02-26] MEDS ORDERED: LIDOCAINE 1% MPF 5 ML VIAL ONE (07:46)
[2023-02-26] MEDS ORDERED: propofoL 200 MG/20 ML VIAL IV ONE ×2 (07:46→08:14)
[2023-02-26 09:18] VITALS: TEMP 97.9
[2023-02-26 09:19] VITALS: BP 139/76; O2SAT 99
== END 2023-02-26 09:30 | disposition home or self-care (01) ==
LOC: OR 06:19
PROVIDERS: ATTEND Internal Medicine Gastroenterology
PROC: 0DBN8ZX Excision of Sigmoid Colon, Via Natural or Artificial Opening Endoscopic, Diagnostic (ICD-10-PCS; 2023-02-26)
PROC: 0DB48ZX Excision of Esophagogastric Junction, Via Natural or Artificial Opening Endoscopic, Diagnostic (ICD-10-PCS; principal; 2023-02-26 07:30)
PROC: 0DB68ZX Excision of Stomach, Via Natural or Artificial Opening Endoscopic, Diagnostic (ICD-10-PCS; 2023-02-26 07:30)
DX: Z12.11 Encounter for screening for malignant neoplasm of colon (principal); R14.0 Abdominal distension (gaseous); K30 Functional dyspepsia; K21.9 Gastro-esophageal reflux disease without esophagitis; K44.9 Diaphragmatic hernia without obstruction or gangrene; K29.50 Unspecified chronic gastritis without bleeding; K31.7 Polyp of stomach and duodenum; K63.5 Polyp of colon; K64.8 Other hemorrhoids; E11.22 Type 2 diabetes mellitus with diabetic chronic kidney disease; I12.0 Hypertensive chronic kidney disease with stage 5 chronic kidney disease or end stage renal disease; N18.6 End stage renal disease; Z99.2 Dependence on renal dialysis
CPT/HCPCS: 43239; 45380; 80048; 36415; 88312; 82947; 88305; J2704 ×2; J2001; J7040

== ENCOUNTER 2023-03-22 03:00 | Emergency (ER) | payer BC, OTHER ==
--- OUTSIDE RECORDS SUMMARY | 2023-03-22 03:08 | XMS REPORT | Continuity of Care Document ---
:[address] [facility] t Address [address] [place] [address] [place] [id number] Care Team Providers Name Role Phone YISSELRITA JEFFREY Primary Care Physician Unavailable Dyllan Albert MD Attending Clinician Cory Fleming MD Attending Clinician Whitney Dow Attending Clinician Gorge [employer], Rochelle Gomez Attending Clinician [phone] Antoinette MEDRANO, April Attending Clinician Unavailable Kamilla Tello MA Attending Clinician Unavailable Malorie Lopez MA Attending Clinician Unavailable Gisele Lynn MA Attending Clinician Unavailable Asked, No Pcp Attending Clinician Unavailable Tabatha Katz MA Attending Clinician Unavailable Carolyn Solorzano MD Attending Clinician [phone] Desi Cabrera RN Attending Clinician Unavailable TURNER [...] Added automatic ally from request for surgery [id number] No known No known Disease Unive rs active active ity of problems problems [facility] Allergies, Adverse Reactions, Alerts Allergy Allergy Status Severity Reaction(s) Onset Inactive Treating Comm ents Source Name Type Date Date Clinician NO KNOWN Drug Active Univers ALLERGIE Class ity of S [facility] Family History Family Member Diagnosis Comments Start Date Stop Date Source Natural father No Known Problems Met [facility] Natural mother Stroke [facility] Social History Social Habit Start Date Stop Date Quantity Comments Source Exposure to Not sure University SARS-CoV-2 (event) [facility] Gender identity [facility] Sexual orientation [facility] Alcohol intake 2023-01-27 2023-01-27 Lifetime Sikh 00:00:00 00:00:00 non-drinker Hospital (finding) History of Social 2023-01-27 2023-01-[address] function 00:00:00 00:00:00 Hospital Tobacco use and 2022-01-07 2022-01-07 Smokeless Sikh exposure 00:00:00 00:00:00 tobacco non-user Hospital Sex Assigned At [birth year] [facility] 00:00:00 00:00:00 [facility] Center Smoking Status Start Date Stop Date Source Unknown if ever smoked [facility]it y [facility] Never smoked tobacco [facility] Medications Ordered Filled Start Stop Current Ordering Indication Dosage Frequency Signature Comments Components Source Medication Medication Date Date Medication? Clinician (SIG) Name Name calcitrioL 2022-04 Yes .5ug Take 2 Metho di (ROCALTROL) 0-[address] 0.25 MCG 16:39: (0.5 mcg Hospi ta capsule 44 total) by l mouth. docusate 2022-04 Yes 250mg Take 1 Method i sodium 0-[address] (COLACE) 16:39: (250 mg Hospit a 250 MG 44 total) by l capsule mouth. gabapentin 2022-04 Yes 100mg Q.5D Take 1 Meth brooke (NEURONTIN) 0-[address] 100 mg 16:39: (100 mg Hospita capsule 44 total) by l mouth 2 (two) times a day. ergocalcife 2022-04 Yes Take by [facility], [facility] vitamin D2, 16:39: Hospit a (VITAMIN D2 44 l ORAL) vitamin B 2022-04 Yes QD Take by Metho di complex 0-[address] tablet 16:39: daily. Hospita extended 44 l release carvediloL 2022-04 Yes 25mg Q.5D Take 1 Metho di (COREG) 25 0-06 tablet (25 st MG tablet 16:39: mg total) Hos kendall 44 by mouth 2 l (two) times a day with meals. tadalafil 2022-04 Yes 40mg Take 2 Method i (ADCIRCA, 0-[address] CIALIS) 20 16:39: (40 mg Hospi ta mg tablet 44 total) by l mouth as needed. omeprazole 2022-04 Yes 20mg QD Take 1 Metho di (PriLOSEC) 0-[address] 20 MG 16:39: (20 mg Hospita capsule 44 total) by l mouth daily. aspirin 2022-04 Yes 81mg QD Take 1 Methodi (ECOTRIN) 0-06 tablet (81 st 81 MG 16:39: mg total) Hospita enteric 44 by mouth l coated daily. tablet Toujeo Yes QD Inject Methodi SoloStar [address] U-300 00:00: skin Hospita Insulin 300 00 daily. l unit/mL (1.5 mL) insulin pen subcutaneou s pen sevelamer Yes 800mg Q.[id number] Take 1 Methodi (RENVELA) 9-[id number] 800 mg 00:00: 3D (800 mg Hospita tablet 00 total) by l mouth 3 (three) times a day with meals. doxycycline 2022-0 2022- No 100mg Q12H Take 1 Me thodi (VIBRA-TABS 7-27 10-[address] ) 100 MG 00:00: 00:00 (100 mg Hospi ta tablet 00 :00 total) by l mouth every 12 (twelve) hours. amLODIPine 0 Yes 10mg QD Take 1 Metho di (NORVASC) 7-07 tablet (10 st 10 mg 00:00: mg total) Hospita tablet 00 by mouth l nightly. calcitrioL 0 Yes .5ug Take 2 Metho di (ROCALTROL) 7-[address] 0.25 MCG 13:53: (0.5 mcg Hospi ta capsule 51 total) by l mouth. docusate 2023-0 Yes 250mg Take 1 Method i sodium 7-[address] (COLACE) 13:53: (250 mg Hospit a 250 MG 51 total) by l capsule mouth. gabapentin 2022-0 Yes 100mg Q.5D Take 1 Meth brooke (NEURONTIN) 7-[address] 100 mg 13:53: (100 mg Hospita capsule 51 total) by l mouth 2 (two) times a day. ergocalcife 2022-0 Yes Take by Met hodi rol, 7- mouth. st vitamin D2, 13:53: Hospit a (VITAMIN D2 51 l ORAL) vitamin B 2022-0 Yes QD Take by Metho di complex 7-[address] tablet 13:53: daily. Hospita extended 51 l release carvediloL 2022-0 Yes 25mg Q.5D [...] 51 total) by l mouth daily. calcitrioL 3-0 [...] 2022-0 Yes Take by Met geneti rol, 7- mouth. st vitamin D2, 13:53: Hospit a (VITAMIN D2 51 l ORAL) vitamin B 2023-0 Yes QD Take by Metho di complex [...] day. ergocalcife 3-0 Yes Take by Met hodi rol, 7-06 [...] by mouth l coated daily. tablet aspirin 3-0 Yes 81mg QD Take 1 [...] 2022-0 Yes Take by Met geneti rol, 4-[address] vitamin D2, 13:11: [...] capsule 57 total) by l mouth. docusate 2022-0 Yes 250mg Take 1 Method i sodium -[address] (COLACE) 09:51: (250 mg Hospit a 250 MG 57 total) by l capsule mouth. gabapentin 2022-0 Yes 100mg Q.5D Take 1 Meth brooke (NEURONTIN) 04-[address] 100 mg 09:51: (100 mg Hospita capsule 57 total) by l mouth 2 (two) times a day. ergocalcife 2022-0 Yes Take by Met kota puentes, 04-[address] vitamin D2, 09:51: Hospit a (VITAMIN D2 57 l ORAL) vitamin B 2022-0 Yes QD Take by Metho di complex -[address] tablet 09:51: daily. Hospita extended 57 l release carvediloL 2022-0 Yes 25mg Q.5D [...] area 30-45 minutes prior to dialysis treatment. Mounjaro 5 2021-04- No Method i mg/0.5 mL 05-11 st pen 00:00: 00:00 Hospita injector 00 :00 l losartan 2021-04 Yes 50mg QD Take 1 [...] 13 total) by l mouth daily. calcitrioL 0 [...] extended 59 l release traMADoL 2021- No [id number] 50mg Q6H Take 1 Metho di (Ultram) 50 01-0924 tablet (50 s t mg tablet 00:00: 04:59 mg total) Ho spita 00 :00 by mouth l every 6 (six) hours as needed for moderate pain for up to 2 days .acute pain. traMADoL 2021- [place] [id number] 50mg Q6H Take 1 Metho di (Ultram) 50 01-09-24 tablet (50 s t mg tablet 00:00: 04:59 mg total) Ho spita 00 :00 by mouth l every 6 (six) hours as needed for moderate pain for up to 2 days .acute pain. traMADoL 2021- [place] [id number] 50mg Q6H Take 1 Metho di (Ultram) 50 01-0924 tablet (50 s t mg tablet 00:00: 04:59 mg total) Ho spita 00 :00 by mouth l every 6 (six) hours as needed for moderate pain for up to 2 days .acute pain. traMADoL [id number] 50mg Q6H Take 1 Metho di (Ultram) 50 01-0924 tablet (50 s t mg tablet 00:00: 04:59 mg total) Ho spita 00 :00 by mouth l every 6 (six) hours as needed for moderate pain for up to 2 days .acute pain. traMADoL 50mg Q6H Take 1 Metho di (Ultram) [...] 2 days .acute pain. traMADoL 2021- [place] [id number] 50mg Q6H Take 1 Metho di (Ultram) [...] 49 :00 total) by l mouth. glipiZIDE 2022-0 2022- No 2.5mg Take 1 Meth brooke (GLUCOTROL) [...] insulin pen subcutaneou s pen insulin 2021-0 2023- No 25U QD Inject 25 Meth brooke [...] l (two) times a day. albuterol Yes [id number] 2{puff} Inhale 2 Univers 90 1-22 Puffs ity of mcg/actuati 00:00: every 4 Kj as on inhaler 00 (four) Medical hours as Branch needed for Wheezing or Shortness of Breath. proMETHazin 0 Yes [id number] 25mg Take 1 Univers e 25 mg 1-22 tablet by ity of tablet 00:00: mouth [place] 00 every 6 Medical (six) Branch hours as needed for Nausea and Vomiting (N/V). albuterol 0 Yes [id number] 2{puff} Inhale 2 Univers 90 1-22 Puffs ity of mcg/actuati 00:00: every 4 Kj as on inhaler 00 (four) Medical hours as Branch needed for Wheezing or Shortness of Breath. proMETHazin 0 Yes [id number] 25mg Take 1 Univers e 25 mg 1-22 tablet by ity of tablet 00:00: mouth [place] 00 every 6 Medical (six) Branch hours as needed for Nausea and Vomiting (N/V). amoxicillin 0 2021- No [id number] 1{tbl} Take 1 Univers -clavulanat 05-12-30 tablet by it y of e 875-125 00:00: 05:59 mouth [place] mg per 00 :00 every 12 Medical tablet (twelve) Branch hours for 7 days. codeine-gua 0 2021- No 10mL Take 10 mL Univers ifenesin 05-1230 by mouth ity of 10-100 mg/5 00:00: 05:59 every 6 [place] mL oral 00 :00 (six) Medical solution hours as Branch needed for Cough for up to 7 days. Indication s: COUGH amoxicillin 2021- No [id number] 1{tbl} Take 1 Univers -clavulanat 05-12 tablet [...] up to 7 days. Indication s: COUGH Immunizations Ordered Immunization Filled Immunization Date Status Commen ts Source Name Name [facility] MRNA Unknown Completed Met [place] [id number] MRNA Unknown Completed Met [facility] Vital Signs Vital Name Observation Time Observation Value Comments Source Systolic blood 2021-05-12 134 mm[Hg] University of pressure 14:46:00 [facility] Diastolic blood 2021-05-12 66 mm[Hg] [place] o f pressure 14:46:00 [facility] Heart rate 2021-05-12 118 /min [facility] 14:46:00 [facility] Body temperature 2021-05-12 37.33 Chey [facility] 14:46:00 [facility] Respiratory rate 2021-05-12 22 /min [facility] 14:46:00 [facility] Body weight 2021-05-12 102.059 kg [facility] 14:46:00 [facility] Oxygen saturation 2021-05-12 100 /min [facility] in Arterial blood 14:46:00 [facility] by Pulse oximetry Branch Systolic blood 2023-01-24 143 mm[Hg] [facility] pressure 21:00:00 [facility] Diastolic blood 2023-01-24 69 mm[Hg] [facility] pressure 21:00:00 [facility] Heart rate 2023-01-24 72 /min [facility] 21:00:00 Hospital Respiratory rate 2023-01-24 21 /min [facility] 21:00:00 Hospital Oxygen saturation 2023-01-24 97 /min [facility] in Arterial blood 21:00:00 Hospital by Pulse oximetry Body temperature 2023-01-24 36.67 Chey [facility] 20:23:00 Hospital Body height 2023-01-24 172.7 cm [facility] 16:18:00 Hospital Body weight 2023-01-24 109.77 kg [facility] 16:18:00 [facility] BMI 2023-01-24 36.80 kg/m2 [facility] 16:18:00 Hospital Systolic blood 2022-10-24 168 mm[Hg] [facility] pressure 18:50:00 Hospital Diastolic blood 2022-10-24 81 mm[Hg] [facility] pressure 18:50:00 Hospital Heart rate 2022-10-24 89 /min [facility] 18:50:00 Hospital Body temperature 2022-10-24 36.44 Chey [facility] 18:50:00 Hospital Body height 2022-10-24 172.7 cm [facility] 18:50:00 [facility] Body weight 2022-10-24 107.049 kg [facility] 18:50:00 Hospital BMI 2022-10-24 35.88 kg/m2 [facility] 18:50:00 Hospital Oxygen saturation 2022-10-24 96 /min [facility] in Arterial blood 18:50:00 Hospital by Pulse oximetry Systolic blood 2022-07-23 149 mm[Hg] [facility] pressure 18:08:00 Hospital Diastolic blood 2022-07-23 87 mm[Hg] [facility] pressure 18:08:00 Hospital Heart rate 2022-07-23 84 /min [facility] 18:08:00 [facility] Body temperature 2022-07-23 36.78 Chey [facility] 18:08:00 Hospital Body height 2022-07-23 172.7 cm [facility] 18:08:00 Hospital Body weight 2022-07-23 98.521 kg [facility] 18:08:00 [facility] BMI 2022-07-23 33.03 kg/m2 [facility] 18:08:00 Hospital Oxygen saturation 2022-07-23 97 /min [facility] in Arterial blood 18:08:00 Hospital by Pulse oximetry Systolic blood 2022-04-23 155 mm[Hg] did not take [facility] pressure 15:38:00 blood pressure Hospital medication Diastolic blood 2022-04-23 88 mm[Hg] did not take [facility] pressure 15:38:00 blood pressure Hospital medication Heart rate 2022-04-23 92 /min [facility] 15:38:00 Hospital Body temperature 2022-04-23 36.67 Chey [facility] 15:38:00 Hospital Body height 2022-04-23 172.7 cm [facility] 15:38:00 Hospital Body weight 2022-04-23 97.433 kg [facility] 15:38:00 Hospital BMI 2022-04-23 32.66 kg/m2 [facility] 15:38:00 Hospital Oxygen saturation 2022-04-23 98 /min [facility] in Arterial blood 15:38:00 Hospital by Pulse oximetry Systolic blood 2022-02-07 182 mm[Hg] [facility] pressure 20:01:00 Hospital Diastolic blood 2022-02-07 92 mm[Hg] [facility] pressure 20:01:00 Hospital Heart rate 2022-02-07 89 /min [facility] 20:01:00 Hospital Body temperature 2022-02-07 36.44 Chey [facility] 20:01:00 [facility] Body height 2022-02-07 172.7 cm [facility] 20:01:00 Hospital Body weight 2022-02-07 107.049 kg [facility] 20:01:00 [facility] BMI 2022-02-07 35.88 kg/m2 [facility] 20:01:00 Hospital Oxygen saturation 2022-02-07 98 /min [facility] in Arterial blood 20:01:00 Hospital by Pulse oximetry Systolic blood 2022-01-09 147 mm[Hg] [facility] pressure 21:30:00 Hospital Diastolic blood 2022-01-09 85 mm[Hg] [facility] pressure 21:30:00 Hospital Heart rate 2022-01-09 92 /min [facility] 21:30:00 Hospital Body temperature 2022-01-09 36.56 Chey [facility] 21:30:00 Hospital Respiratory rate 2022-01-09 18 /min [facility] 21:30:00 Hospital Oxygen saturation 2022-01-09 99 /min [facility] in Arterial blood 21:30:00 Hospital by Pulse oximetry Body height 2022-01-09 172.7 cm [facility] 13:28:00 Hospital Body weight 2022-01-09 103.874 kg [facility] 13:28:00 Hospital BMI 2022-01-09 34.82 kg/m2 [facility] 13:28:00 Hospital Procedures Procedure Date / Time Performing Clinician Source Performed OR [place] < 1 HOUR 2023-01-24 19:45:06 Dyllan Albert spital POC GLUCOSE 2023-01-24 19:25:00 Dyllan Albert spital ANESTHESIA INTUBATION 2023-01-24 18:17:[address] [facility] FISTULOGRAPHY,POSSIBLE 2023-01-24 18:06:00 Shahana, [facility] ANGIOPLASTY,POSSIBLE STENT ESTIMATED GFR 2023-01-24 16:22:00 Dyllan Albert spital POC PANEL 2023-01-24 16:22:00 Dyllan Albert spital BASIC METABOLIC PANEL 2023-01-24 16:12:00 Shahana [facility] [place] ABO/RH 2023-01-24 16:12:00 Catia Merino susie Coleman ESTIMATED GFR 2023-01-24 16:12:00 Dyllan Albert spital XR CHEST 2 VW 2023-01-20 18:14:53 Dyllan Albert spital TYPE AND SCREEN 2023-01-20 17:30:00 Dyllan Albert spital HEMOGLOBIN A1C 2023-01-20 16:25:00 Carolyn Solorzano spital Donna PARTIAL THROMBOPLASTIN 2023-01-20 16:25:00 Shahana [facility] TIME (PTT) PROTHROMBIN TIME WITH INR 2023-01-20 16:25:00 Shahana [facility] CBC WITH PLATELET AND 2023-01-20 16:25:00 Shahana [facility] DIFFERENTIAL ECG PRE/POST OP 2023-01-20 16:15:53 Dyllan Albert spital US CAROTID DUPLEX 2022-04-11 18:00:00 Rochelle Pennington [facility] BILATERAL [place] POC GLUCOSE 2022-01-09 20:58:00 Dyllan Albert spital POC GLUCOSE 2022-01-09 20:02:00 Dyllan Albert spital ME AN ELECTIVE 2022-01-09 17:35:00 Carolyn Solorzano spital SUPRAGLOTTIC AIRWAY Donna CREATION, AV FISTULA 2022-01-09 17:26:00 Shahana, [facility] ESTIMATED GFR 2022-01-09 13:43:00 Dyllan Albert spital POC PANEL 2022-01-09 13:43:00 Dyllan Albert susie ABO AND RH CONFIRMATION 2022-01-09 13:40:00 Shahana [facility] BY PROTOCOL XR CHEST 2 VW 2022-01-07 15:20:51 Dyllan Albert ECG PRE/POST OP 2022-01-07 14:56:02 [facility] 2022-01-07 14:34:00 Shahana [facility] RT-PCR URINE CULTURE 2022-01-07 14:33:00 Dyllan Albert [facility] URINALYSIS SCREEN AND 2022-01-07 14:33:00 Shahana [facility] MICROSCOPY, WITH REFLEX TO CULTURE COMPREHENSIVE METABOLIC 2022-01-07 14:33:00 [facility] PANEL Ramon Coleman ESTIMATED GFR 2022-01-07 14:33:00 Catia Merino [facility] Ramon Coleman PARTIAL THROMBOPLASTIN 2022-01-07 14:05:00 Shahana [facility] TIME (PTT) PROTHROMBIN TIME WITH INR 2022-01-07 14:05:00 Shahana [facility] CBC WITH PLATELET AND 2022-01-07 14:05:00 [facility] DIFFERENTIAL TYPE AND SCREEN 2022-01-07 14:05:00 [facility] A1C 2022-01-07 14:05:00 Catia Merino [facility] Ramon Coleman HEPATITIS B SURFACE 2021-09-06 05:47:00 [facility] ANTIGEN Center HEPATITIS B SURFACE 2021-09-06 05:47:00 [facility] ANTIBODY Center HEPATITIS B CORE 2021-09-06 05:47:00 [facility] ANTIBODY, IGM Center XR CHEST 2 VW 2021-05-12 16:27:08 Turner Garcia [facility] RAPID INFLUENZA A/B 2021-05-12 15:13:00 [facility] NOTICE OF PRIVACY 2021-05-12 14:43:20 Doctor Unassigned, [facility] PRACTICES [facility] CONSENT/REFUSAL FOR 2021-05-12 14:43:06 Doctor Unassigned, [facility] DIAGNOSIS AND TREATMENT [facility] Plan of Care Planned Activity Planned Date Details Comments Source Future Scheduled 2023-02-28 [facility] Test 10:48:10 malignant neoplasm of colon (procedure) [code = 358807553] Future Scheduled 2023-02-28 [facility] Test 10:48:10 malignant neoplasm of colon (procedure) [code = 631811563] Future Scheduled 2023-02-28 [facility] Test 10:48:10 malignant neoplasm of colon (procedure) [code = 978116847] Future Scheduled 2023-02-28 [facility] 10:48:10 Pediatrics (0 to 5 Years) and At-Risk Patients (6 to 64 Years) (1 - PCV) [code = Pneumococcal Vaccine: Pediatrics (0 to 5 Years) and At-Risk Patients (6 to 64 Years) (1 - PCV)] Future Scheduled 2023-02-28 [facility] 10:48:10 (procedure) [code = 673023448] Future Scheduled 2023-02-28 [facility] Test 10:48:10 malignant neoplasm of colon (procedure) [code = 355895013] Future Scheduled 2023-02-28 [facility] Test 10:48:10 malignant neoplasm of colon (procedure) [code = 673013691] Future Scheduled 2023-02-28 COVID-19 VACCINE ([facility] - [facility] 10:48:10 season) [code = COVID-19 VACCINE (3 - season)] Future Scheduled 2023-02-28 [facility] 10:48:10 [code = INFLUENZA VACCINE (#1)] Future Scheduled 2022-12-[address] [facility] Test 00:00:00 (Season Ended) [code = [facility] INFLUENZA VACCINE (Season Ended)] Future Scheduled 2022-12-[address] [facility] Test 00:00:00 (Season Ended) [code = [facility] INFLUENZA VACCINE (Season Ended)] Future Scheduled 2022-11-25 [facility] Test 14:32:47 malignant neoplasm of colon (procedure) [code = 248897730] Future Scheduled 2022-11-25 [facility] Test 14:32:47 malignant neoplasm of colon (procedure) [code = 001337386] Future Scheduled 2022-11-25 [facility] Test 14:32:47 malignant neoplasm of colon (procedure) [code = 922857816] Future Scheduled 2022-11-25 Pneumococcal Vaccine: [facility] Test 14:32:47 Pediatrics (0 to 5 Years) and At-Risk Patients (6 to 64 Years) (1 - PCV) [code = Pneumococcal Vaccine: Pediatrics (0 to 5 Years) and At-Risk Patients (6 to 64 Years) (1 - PCV)] Future Scheduled 2022-11-[address] [facility] Test 14:32:47 (procedure) [code = 438466774] Future Scheduled 2022-11-25 COVID-19 VACCINE (3 - [facility] Test 14:32:47 Moderna series) [code = COVID-19 VACCINE (3 - Moderna series)] Future Scheduled 2022-11-25 [facility] Test 14:32:47 malignant neoplasm of colon (procedure) [code = 581723961] Future Scheduled 2022-11-25 [facility] Test 14:32:47 malignant neoplasm of colon (procedure) [code = 461127523] Future Scheduled 2022-11-25 INFLUENZA VACCINE [facility] Test 14:32:47 [code = INFLUENZA VACCINE] Future Scheduled 2022-10-25 [facility] Test 16:31:09 malignant neoplasm of colon (procedure) [code = 984707238] Future Scheduled 2022-10-25 [facility] Test 16:31:09 malignant neoplasm of colon (procedure) [code = 442582894] Future Scheduled 2022-10-25 [facility] Test 16:31:09 malignant neoplasm of colon (procedure) [code = 151359458] Future Scheduled 2022-10-25 Pneumococcal Vaccine: [facility] Test 16:31:09 Pediatrics (0 to 5 Years) and At-Risk Patients (6 to 64 Years) (1 - PCV) [code = Pneumococcal Vaccine: Pediatrics (0 to 5 Years) and At-Risk Patients (6 to 64 Years) (1 - PCV)] Future Scheduled 2022-10-[address] [facility] Test 16:31:09 (procedure) [code = 524504375] Future Scheduled 2022-10-25 COVID-19 VACCINE (3 - [facility] Test 16:31:09 Moderna series) [code = COVID-19 VACCINE (3 - Moderna series)] Future Scheduled 2022-10-25 [facility] Test 16:31:09 malignant neoplasm of colon (procedure) [code = 012045417] Future Scheduled 2022-10-25 [facility] Test 16:31:09 malignant neoplasm of colon (procedure) [code = 639469695] Future Scheduled 2022-10-25 INFLUENZA VACCINE Method t Hospital Test 16:31:09 [code = INFLUENZA VACCINE] Future Scheduled 2022-10-25 [facility] Test 16:31:09 malignant neoplasm of colon (procedure) [code = 311087463] Future Scheduled 2022-10-25 [facility] Test 16:31:09 malignant neoplasm of colon (procedure) [code = 152043793] Future Scheduled 2022-10-25 [facility] Test 16:31:09 malignant neoplasm of colon (procedure) [code = 208519388] Future Scheduled 2022-10-25 Pneumococcal Vaccine: [facility] Test 16:31:09 Pediatrics (0 to 5 Years) and At-Risk Patients (6 to 64 Years) (1 - PCV) [code = Pneumococcal Vaccine: Pediatrics (0 to 5 Years) and At-Risk Patients (6 to 64 Years) (1 - PCV)] Future Scheduled 2022-10-25 Hepatitis C screening [facility] Test 16:31:09 (procedure) [code = 725331656] Future Scheduled 2022-10-25 COVID-19 VACCINE (3 - [facility] Test 16:31:09 Moderna series) [code = COVID-19 VACCINE (3 - Moderna series)] Future Scheduled 2022-10-25 [facility] Test 16:31:09 malignant neoplasm of colon (procedure) [code = 364346098] Future Scheduled 2022-10-25 [facility] Test 16:31:09 malignant neoplasm of colon (procedure) [code = 086927717] Future Scheduled 2022-10-25 INFLUENZA VACCINE Method [facility] Test 16:31:09 [code = INFLUENZA VACCINE] Future Scheduled 2022-09-28 [facility] Test 22:18:06 malignant neoplasm of colon (procedure) [code = 374712838] Future Scheduled 2022-09-28 [facility] Test 22:18:06 malignant neoplasm of colon (procedure) [code = 528813479] Future Scheduled 2022-09-28 [facility] Test 22:18:06 malignant neoplasm of colon (procedure) [code = 963331614] Future Scheduled 2022-09-28 Pneumococcal Vaccine: [facility] Test 22:18:06 Pediatrics (0 to 5 Years) and At-Risk Patients (6 to 64 Years) (1 - PCV) [code = Pneumococcal Vaccine: Pediatrics (0 to 5 Years) and At-Risk Patients (6 to 64 Years) (1 - PCV)] Future Scheduled 2022-09-[address] [facility] Test 22:18:06 (procedure) [code = 573029789] Future Scheduled 2022-09-28 COVID-19 VACCINE (3 - [facility] Test 22:18:06 Moderna series) [code = COVID-19 VACCINE (3 - Moderna series)] Future Scheduled 2022-09-28 [facility] Test 22:18:06 malignant neoplasm of colon (procedure) [code = 536608111] Future Scheduled 2022-09-28 [facility] Test 22:18:06 malignant neoplasm of colon (procedure) [code = 807773235] Future Scheduled 2022-09-28 INFLUENZA VACCINE Method [facility] Test 22:18:06 [code = INFLUENZA VACCINE] Future Scheduled 2022-07-23 Pneumococcal Vaccine: [facility] Test 13:39:42 Pediatrics (0 to 5 Years) and At-Risk Patients (6 to 64 Years) (1 - PCV) [code = Pneumococcal Vaccine: Pediatrics (0 to 5 Years) and At-Risk Patients (6 to 64 Years) (1 - PCV)] Future Scheduled 2022-07-[address] [facility] Test 13:39:42 (procedure) [code = 451859260] Future Scheduled 2022-07-23 COVID-19 VACCINE (3 - [facility] Test 13:39:42 Booster for Moderna series) [code = COVID-19 VACCINE (3 - Booster for Moderna series)] Future Scheduled 2022-07-[address] [facility] Test 13:39:42 [code = COLONOSCOPY SCREENING] Future Scheduled 2022-07-23 [facility]INE [facility] 13:39:42 [code = INFLUENZA VACCINE] Future Scheduled 2022-06-16 COVID-19 VACCINE (#1) [facility] Test 21:38:44 [code = COVID-19 VACCINE (#1)] Future Scheduled 2022-06-16 Pneumococcal Vaccine: [facility] Test 21:38:44 Pediatrics (0 to 5 Years) and At-Risk Patients (6 to 64 Years) (1 - PCV) [code = Pneumococcal Vaccine: Pediatrics (0 to 5 Years) and At-Risk Patients (6 to 64 Years) (1 - PCV)] Future Scheduled 2022-06-[address] [facility] Test 21:38:44 (procedure) [code = 926805594] Future Scheduled 2022-06-[address] [facility] Test 21:38:44 [code = COLONOSCOPY SCREENING] Future [...] Future Scheduled 2022-02-28 HEPATITIS B VACCINES [facility] Test 10:00:19 (1 of 3 - 3-dose series) [code = HEPATITIS B VACCINES (1 of 3 - 3-dose series)] Future Scheduled 2022-02-28 COVID-19 VACCINE (#1) [facility] Test 10:00:19 [code = COVID-19 VACCINE (#1)] Future Scheduled 2022-02-28 Pneumococcal Vaccine: [facility] Test 10:00:19 Pediatrics (0 to 5 Years) and At-Risk Patients (6 to 64 Years) (1 - PCV) [code = Pneumococcal Vaccine: Pediatrics (0 to 5 Years) and At-Risk Patients (6 to 64 Years) (1 - PCV)] Future Scheduled 2022-02-[address] [facility] Test 10:00:19 (procedure) [code = [id number]] Future Scheduled 2022-02-[address] [facility] Test 10:00:19 [code = COLONOSCOPY SCREENING] Future Scheduled 2022-02-28 INFLUENZA VACCINE Method [facility] Test 10:00:19 [code = INFLUENZA VACCINE] Future Scheduled 2022-02-12 HEPATITIS B VACCINES Met [facility] Test 07:56:41 (1 of 3 - 3-dose series) [code = HEPATITIS B VACCINES (1 of 3 - 3-dose series)] Future Scheduled 2022-02-12 COVID-19 VACCINE (#1) [facility] Test 07:56:41 [code = COVID-19 VACCINE (#1)] Future Scheduled 2022-02-12 Pneumococcal Vaccine: [facility] Test 07:56:41 Pediatrics (0 to 5 Years) and At-Risk Patients (6 to 64 Years) (1 - PCV) [code = Pneumococcal Vaccine: Pediatrics (0 to 5 Years) and At-Risk Patients (6 to 64 Years) (1 - PCV)] Future Scheduled 2022-02-[address] [facility] Test 07:56:41 (procedure) [code = 446398435] Future Scheduled 2022-02-[address] [facility] Test 07:56:41 [code = COLONOSCOPY SCREENING] Future Scheduled 2022-02-12 INFLUENZA VACCINE Method [facility] Test 07:56:41 [code = INFLUENZA VACCINE] Future Scheduled 2022-02-07 HEPATITIS B VACCINES Met [facility] Test 15:27:38 (1 of 3 - 3-dose series) [code = HEPATITIS B VACCINES (1 of 3 - 3-dose series)] Future Scheduled 2022-02-07 COVID-19 VACCINE (#1) [facility] Test 15:27:38 [code = COVID-19 VACCINE (#1)] Future Scheduled 2022-02-07 Pneumococcal Vaccine: [facility] Test 15:27:38 Pediatrics (0 to 5 Years) and At-Risk Patients (6 to 64 Years) (1 - PCV) [code = Pneumococcal Vaccine: Pediatrics (0 to 5 Years) and At-Risk Patients (6 to 64 Years) (1 - PCV)] Future Scheduled 2022-02-07 Hepatitis C screening [facility] Test 15:27:38 (procedure) [code = 700625269] Future Scheduled 2022-02-[address] [facility] Test 15:27:38 [code = COLONOSCOPY SCREENING] Future Scheduled 2022-02-07 INFLUENZA VACCINE Method [facility] Test 15:27:38 [code = INFLUENZA VACCINE] Future Scheduled 2022-01-25 HEPATITIS B VACCINES Met [facility] Test 11:11:15 (1 of 3 - 3-dose series) [code = HEPATITIS B VACCINES (1 of 3 - 3-dose series)] Future Scheduled 2022-01-25 COVID-19 VACCINE (#1) [facility] Test 11:11:15 [code = COVID-19 VACCINE (#1)] Future Scheduled 2022-01-25 Pneumococcal Vaccine: [facility] Test 11:11:15 Pediatrics (0 to 5 Years) and At-Risk Patients (6 to 64 Years) (1 - PCV) [code = Pneumococcal Vaccine: Pediatrics (0 to 5 Years) and At-Risk Patients (6 to 64 Years) (1 - PCV)] Future Scheduled 2022-01-25 Hepatitis C screening [facility] Test 11:11:15 (procedure) [code = 598671592] Future Scheduled 2022-01-25 COLONOSCOPY SCREENING [facility] Test 11:11:15 [code = COLONOSCOPY SCREENING] Future Scheduled 2022-01-25 INFLUENZA VACCINE Method [facility] Test 11:11:15 [code = [...] Test 00:00:00 (procedure) [code = Medical Center 60212805] Future Scheduled [address] [facility] Test 00:00:00 (procedure) [code = Medical Center 99902716] Future Scheduled [address] [facility] Test 00:00:00 (procedure) [code = Medical Center 26717054] Future Scheduled [address] [facility] Test 00:00:00 (procedure) [code = Medical Center 46568686] Future Scheduled [address] [facility] Test 00:00:00 (procedure) [code = [facility] 10155432] Future Scheduled [address] [facility] Test 00:00:00 (procedure) [code = [facility] 69368672] Future Scheduled [address] [facility] Test 00:00:00 (procedure) [code = [facility] 41193946] Future Scheduled [address] [facility] Test 00:00:00 (procedure) [code = [facility] 09214249] Future Scheduled 1995 DTAP/TDAP/TD VACCINES [facility] [...] [facility] Center colon (procedure) [code = 684344845] Future Scheduled [address] [facility] colon (procedure) [code = 252285066] Future Scheduled [address] [facility] 00:[facility] (procedure) [code = 034376759] Future Scheduled [address] [facility] 00:[facility] colon (procedure) [code = 955271915] Future Scheduled 1976 Sigmoid[facility]] Medical Chirage r Future Scheduled [address] [facility] Test 00:00:00 (combo) [code = CT Medical C enter Colonography (combo)] Future Scheduled [address] [facility] 00:00:[facility] colon (procedure) [code = 869792673] Future Scheduled [address] [facility] 00:00:00 [facility] colon (procedure) [code = 089278639] Future Scheduled [address] [facility] 00:00:00 [facility] colon (procedure) [code = 736743953] Future Scheduled [address] [facility] 00:00:[facility] malignant ne[facility] colon (procedure) [code = 751569213] Future Scheduled 1976 [facility]] Medical Chirage r Future Scheduled [address] [facility] 00:00:00 (combo) [code = CT Medical C enter Colonography (combo)] Future Scheduled [address] [facility] 00:00:[facility] ne[facility] colon (procedure) [code = 581846107] Future Scheduled [address] [facility] 00:00:[facility] ne[facility] colon (procedure) [code = 491199916] Future Scheduled [address] [facility] 00:00:00 [facility] ne[facility] colon (procedure) [code = 178247905] Future Scheduled [address] [facility] 00:00:[facility] ne[facility] colon (procedure) [code = 318157253] Future Scheduled 1976 [facility]] Medical Chirage r Future Scheduled [address] [facility] 00:00:00 (combo) [code = CT Medical C enter Colonography (combo)] Future Scheduled [address] [facility] 00:00:00 [facility] ne[facility] colon (procedure) [code = 085870678] Future Scheduled [address] [facility] 00:00:00 [facility] colon (procedure) [code = 914290265] Future Scheduled [address] [facility] 00:00:00 [facility] colon (procedure) [code = 568876991] Future Scheduled [address] [facility] 00:00:[facility] colon (procedure) [code = 980577366] Future Scheduled 1976 [facility]] [facility] Cent[facility] r Future Scheduled [address] [facility] 00:00:00 (combo) [code = CT Medical C enter Colonography (combo)] Future Scheduled [address] [facility] 00:00:[facility] malignant ne[facility] colon (procedure) [code = 982224324] Future Scheduled [address] [facility] 00:00:00 malignant ne[facility] colon (procedure) [code = 619586006] Future Scheduled [address] [facility] 00:00:00 [facility] colon (procedure) [code = 417157045] Future Scheduled [address] [facility] 00:00:[facility] colon (procedure) [code = 049693627] Future Scheduled 1976 [facility] Cent[facility] r Future Scheduled [address] [facility] 00:00:00 (combo) [code = CT Medical C enter Colonography (combo)] Future Scheduled [address] [facility] 00:00:00 [facility] ne[facility] of [facility] colon (procedure) [code = 783745022] Future Scheduled [address] [facility] 00:00:00 [facility] colon (procedure) [code = 226060728] Future Scheduled [address] [facility] 00:00:00 malignant neoplasm of [facility] colon (procedure) [code = 497804027] Future Scheduled [address] [facility] 00:00:00 malignant neoplasm of [facility] colon (procedure) [code = 013162200] Future Scheduled 1976 [facility] Medical Cent[facility] r Future Scheduled [address] [facility] 00:00:00 (combo) [code = CT Medical C enter Colonography (combo)] Future Scheduled [address] [facility] 00:00:[facility] malignant ne[facility] of [facility] colon (procedure) [code = 912086099] Future Scheduled [address] [facility] 00:00:[facility] colon (procedure) [code = 348450007] Future Scheduled [address] [facility] 00:00:00 malignant neoplasm of [facility] colon (procedure) [code = 023735891] Future Scheduled [address] [facility] 00:00:[facility] ne[facility] of [facility] colon (procedure) [code = 844601055] Future Scheduled 1976 [facility]oidoscopy [facility]] Medical Cente r Future Scheduled [address] [facility] 00:00:00 (combo) [code = CT Medical C enter Colonography (combo)] Future Scheduled [address] [facility] 00:00:00 malignant neoplasm of [facility] colon (procedure) [code = 259711631] Future Scheduled [address] [facility] 00:00:00 malignant neoplasm of [facility] colon (procedure) [code = 839426431] Future Scheduled [address] [facility] 00:00:00 [facility] colon (procedure) [code = 302362571] Future Scheduled [facility] malignant neoplasm of [facility]ica Center colon (procedure) [code = 927121211] Future Scheduled 1976 [facility]] Medical Cente r Encounters Start End Encounter Admission Attending Care Care Encounter Source Date/Time Date/Time Type Type Clinicians Facility Department ID 2023-01-24 2023-01-24 [facility] ShahanaRodneyy 1.2.840.1 [id number] Methodi 10:06:00 16:39:[address] 3.430.2.7 Hospit a .3.683984 l .8 2023-01-24 2023-01-24 Surgery ShahanaRodneyy 1.2.840.1 [id number] Methodi 12:50:00 14:35:[address] 3.430.2.7 Hospit a .3.691338 l .8 2023-01-24 2023-01-24 Anesthesia Cory Fleming 1.2.840.1 [id number] Methodi 13:05:00 14:26:00 Event Ladonna Canoe 82642.1.[address] 3.430.2.7 Hospit a .3.688788 l .8 2023-01-24 2023-01-24 Outpatient DYLLAN ALBERT [facility] [id number] [address] [place] 00:00:00 00:00:[address] 2023-01-20 2023-01-20 [facility] Dyllan Albert 1.2.840.1 [id number] 2100 [id number] Methodi 12:43:49 23:59:[address] 3.430.2.7 Hospit a .3.060120 l .8 2023-01-20 2023-01-20 Pre-Admiss Dyllan Albert 1.2.840.1 [id number] 21 [id number] Methodi 11:00:00 12:00:[address] Testing 3.430.2.7 Hospit a .3.475760 l .8 2023-01-20 2023-01-20 Outpatient DYLLAN ALBERT [facility] [id number] [address] [place] 00:00:00 00:00:[address] 2023-01-20 2023-01-20 Outpatient DYLLAN ALBERT [facility] [id number] [address] [place] 00:00:00 00:00:[address] 2023-01-13 2023-01-16 Office [place], 1.2.840.1 [id number] 6422 Methodi 14:30:00 09:52:39 Visit Rochelle 85427.1.[address] [place] 3.430.2.7 Hosp antione .3.386798 l .8 2023-01-16 2023-01-16 Prep for Curry, 1.2.840.1 [id number] 2 [id number] Methodi 00:00:00 00:00:00 Surgery April [address]4787.1.[address] 3.430.2.7 Hospit a .3.307366 l .8 2023-01-13 2023-01-16 Outpatient [facility] [id number] [address] [place] 00:00:00 00:00:[address] 2022-10-24 2022-10-24 Office [place], 1.2.840.1 [id number] 6536 Methodi 13:30:00 14:37:52 Visit Rochelle 21025.1.[address] [place] 3.430.2.7 Hosp antione .3.144430 l .8 2022-10-24 2022-10-24 Office [place], 1.2.840.1 [id number] Methodi 13:30:00 14:37:52 Visit Rochelle [address]6565.1.[address] [place] 3.430.2.7 Hosp antione .3.535971 l .8 2022-07-23 2022-07-23 Office Gorge, 1.2.840.1 [id number] 8065 Methodi 13:00:00 13:40:09 Visit Rochelle 19251.1.[address] [place] 3.430.2.7 Hosp antione .3.699163 l .8 2022-07-23 2022-07-23 Office Gorge, 1.2.840.1 [id number] 3218 Methodi 13:00:00 13:40:09 Visit Rochelle 75348.1.[address] [place] 3.430.2.7 Hosp antione .3.554717 l .8 2022-07-23 2022-07-23 Travel 1.2.840.1 1.2.825.402 6726 052088 Methodi 00:00:00 00:00:[address] 3.430.2.7 0.2.7.3.698 Ho spita .3.212338 084.8 l .8 2022-07-23 2022-07-23 Travel 1.2.840.1 1.2.890.178 8318 724188 Methodi 00:00:00 00:00:[address] 3.430.2.7 0.2.7.3.698 Ho spita .3.185242 084.8 l .8 2022-04-23 2022-04-23 Office Gorge, 1.2.840.1 [id number] 0324 Methodi 10:00:00 10:47:08 Visit Rochelle 62235.1.[address] [place] 3.430.2.7 Hosp antione .3.761556 l .8 2022-04-23 2022-04-23 Office [place]orge, 1.2.840.1 [id number] 6768 Methodi 10:00:00 10:47:08 Visit Rochelle 20701.1.[address] [place] 3.430.2.7 Hosp antione .3.654817 l .8 2022-04-23 2022-04-23 Travel 1.2.840.1 1.2.429.483 2343 [id number] Methodi 00:00:00 00:00:[address] 3.430.2.7 0.2.7.3.698 Ho spita .3.080340 084.8 l .8 2022-04-23 2022-04-23 Travel 1.2.840.1 1.2.369.187 7539 505869 Methodi 00:00:00 00:00:[address] 3.430.2.7 0.2.7.3.698 Ho spita .3.063835 084.8 l .8 2022-04-19 2022-04-19 Telephone [place], 1.2.840.1 [id number] 2099 [id number] Methodi 00:00:00 00:00:[address] [place] 3.430.2.7 Hosp antione .3.454768 l .8 2022-04-19 2022-04-19 Telephone Gorge, 1.2.840.1 [id number] 2099 [id number] Methodi 00:00:00 00:00:[address] [place] 3.430.2.7 Hosp antione .3.801638 l .8 2022-04-18 2022-04-18 Telephone Omer, 1.2.840.1 [id number] Methodi 00:00:00 00:00:[address] 3.430.2.7 Hospit a .3.245454 l .8 2022-04-18 2022-04-18 Telephone Omer, 1.2.840.1 [id number] Methodi 00:00:00 00:00:[address] 3.430.2.7 Hospit a .3.652610 l .8 2022-04-12 2022-04-12 Telephone Gorge, 1.2.840.1 [id number] 2099 [id number] Methodi 00:00:00 00:00:[address] [place] 3.430.2.7 Hosp antione .3.943228 l .8 2022-04-12 2022-04-12 Telephone Gorge, 1.2.840.1 [id number] 2099 [id number] Methodi 00:00:00 00:00:[address] [place] 3.430.2.7 Hosp antione .3.699544 l .8 2022-04-11 2022-04-11 Office [place], 1.2.840.1 [id number] 2441 Methodi 13:00:00 13:44:34 Visit Rochelle 55656.1.[address] [place] 3.430.2.7 Hosp antione .3.391159 l .8 2022-04-11 2022-04-11 Office [place]orge, 1.2.840.1 [id number] 1688 Methodi 13:00:00 13:44:34 Visit Rochelle 39825.1.[address] [place] 3.430.2.7 Hosp antione .3.610970 l .8 2022-04-11 2022-04-11 Outpatient [facility] [id number] [address] [place] 00:00:00 00:00:[address] 2022-04-11 2022-04-11 Telephone Gorge, 1.2.840.1 [id number] 2099 [id number] Methodi 00:00:00 00:00:[address] [place] 3.430.2.7 Hosp antione .3.863688 l .8 2022-04-11 2022-04-11 Travel 1.2.840.1 1.2.334.733 8295 223740 Methodi 00:00:00 00:00:[address] 3.430.2.7 0.2.7.3.698 Ho spita .3.905438 084.8 l .8 2022-04-11 2022-04-11 Telephone Gorge, 1.2.840.1 [id number] Methodi 00:00:00 00:00:[address] [place] 3.430.2.7 Hosp antione .3.740140 l .8 2022-04-11 2022-04-11 Travel 1.2.840.1 1.2.985.247 7733 787678 Methodi 00:00:00 00:00:[address] 3.430.2.7 0.2.7.3.698 Ho spita .3.216309 084.8 l .8 2022-04-08 2022-04-08 Telephone Gorge, 1.2.840.1 [id number] 2099 [id number] Methodi 00:00:00 00:00:[address] [place] 3.430.2.7 Hosp antione .3.421175 l .8 2022-04-08 2022-04-08 Telephone Gorge, 1.2.840.1 [id number] 2099 [id number] Methodi 00:00:00 00:00:[address] [place] 3.430.2.7 Hosp antione .3.455186 l .8 2022-04-05 2022-04-05 Telephone Jessica, 1.2.840.1 [id number] 715 [id number] Methodi 00:00:00 00:00:00 Crysandria 04805.1.1 [address] t 3.430.2.7 Hospit a .3.373037 l .8 2022-04-05 2022-04-05 Telephone Jesisca, 1.2.840.1 [id number] 167 [id number] Methodi 00:00:00 00:00:00 Crysandria 36601.1.1 388 s t 3.430.2.7 Hospit a .3.122219 l .8 2022-03-11 2022-03-11 Office [place], 1.2.840.1 [id number] 2354 Methodi 11:30:00 11:53:30 Visit Rochelle 94969.1.[address] [place] 3.430.2.7 Hosp antione .3.136542 l .8 2022-02-26 2022-02-26 Telephone Shane, 1.2.840.1 [id number] 916 [id number] Methodi 00:00:00 00:00:[address] 3.430.2.7 Hospit a .3.008617 l .8 2022-02-07 2022-02-07 Office Asked, No Pcp 1.2.840.1 [id number] Methodi 15:00:00 16:33:51 Visit Rochelle [place] 46162.1.[address] 3.430.2.7 Hospit a .3.813396 l .8 2022-02-07 2022-02-07 Travel 1.2.840.1 1.2.309.765 0083 656171 Methodi 00:00:00 00:00:[address] 3.430.2.7 0.2.7.3.698 Ho spita .3.607811 084.8 l .8 2022-02-01 2022-02-01 Telephone Gianna, 1.2.840.1 [id number] 21 [id number] Methodi 00:00:00 00:00:[address] 3.430.2.7 Hospit a .3.300827 l .8 2022-01-25 2022-01-25 Telephone Antoinette, 1.2.840.1 [id number] Methodi 00:00:00 00:00:[address] 3.430.2.7 Hospit a .3.292066 l .8 2022-01-01 2022-01-16 Office Dyllan Albert 1.2.840.1 [id number] 29607 86392 Methodi 09:00:00 04:17:[address] 3.430.2.7 Hospit a .3.021679 l .8 2022-01-11 2022-01-11 Telephone Omer 1.2.840.1 [id number] 21 [id number] Methodi 00:00:00 00:00:[address] 3.430.2.7 Hospit a .3.409559 l .8 2022-01-09 2022-01-09 [facility] Dyllan Albert 1.2.840.1 [id number] 2099 [id number] Methodi 07:17:00 17:05:[address] 3.430.2.7 Hospit a .3.052181 l .8 2022-01-09 2022-01-09 Anesthesia Carolyn Solorzano 1.2.840. 1 [id number] Methodi 12:26:00 15:04:00 Event Whitney Cano 40063.1.[address] 3.430.2.7 Hospit a .3.753324 l .8 2022-01-09 2022-01-09 Surgery Dyllan Albert 1.2.840.1 [id number] 72767 40355 Methodi 11:27:00 13:02:[address] 3.430.2.7 Hospit a .3.386575 l .8 2022-01-07 2022-01-07 [facility] Dyllan Albert 1.2.840.1 [id number] 2100 [id number] Methodi 10:05:52 23:59:[address] 3.430.2.7 Hospit a .3.551437 l .8 2022-01-07 2022-01-07 Pre-Admiss Dyllan Albert 1.2.840.1 [id number] Methodi 09:00:00 10:00:[address] Testing 3.430.2.7 Hospit a .3.643271 l .8 2022-01-07 2022-01-07 Travel 1.2.840.1 1.2.842.478 2166 420465 Methodi 00:00:00 00:00:[address] 3.430.2.7 0.2.7.3.698 Ho spita .3.810999 084.8 l .8 2022-01-01 2022-01-01 Prep for Antoinette, 1.2.840.1 [id number] 2 [id number] Methodi 00:00:00 00:00:00 Surgery April [address].1.[address] 3.430.2.7 Hospit a .3.438242 l .8 2021-12-26 2021-12-26 Telephone Omer, 1.2.840.1 [id number] 21 [id number] Methodi 00:00:00 00:00:[address] 3.430.2.7 Hospit a .3.829372 l .8 2021-12-25 2021-12-25 Telephone Antoinette, 1.2.840.1 [id number] Methodi 00:00:00 00:00:[address] 3.430.2.7 Hospit a .3.029581 l .8 2021-09-06 2021-09-06 Lab [facility] [id number] [address] 00:00:00 00:00:00 [facility] 2021-05-13 2021-05-13 Letter SALBADOR Carbera 1.2.840.114 [id number] 12 [facility] 00:00:00 00:00:00 (Out) Desi CONRAD 350.1.13.10 it [facility] 4.2.7.2.686 Kj as [id number] [address] 2021-05-12 2021-05-12 Emergency X [facility] E[facility] [id number] [facility] 08:47:00 11:17:[address] [facility] 2021-05-12 2021-05-12 Emergency Jose [facility] [id number] [facility] 08:47:00 11:17:00 Turner MARIE [id number] jennifer [facility] 4.2.7.2.686 [facility] [phone] [facility] [address] Results Test Description Test Time Test Comments Results Result [facility] e Comments OR [place] < 1 Hour 2023-01-24 Fluoroscopic Methodis t 19:45:25 imaging Hospital requested. Radiologist was not present during the examination. Please see patient's chart for radiation dose and fluoro time. Separate report will be issued by the physician performing the procedure. POC glucose 2023-01-24 19:26:00 Test Item Value Reference Range Interpretation Comme nts POC glucose (test code = 208 mg/dL 65-99 H Ope rator Name: Amrik Ananya ID: [id number]) [id number] able: RN Notified Lab Interpretation (test code = Abnormal 84425-1) [id number] 18:17:00Azam Yeager 01/24/2023 1:37 PMAirway Date/Time: 01/24/2023 1:17 PM Location: OR Performed by: S RNAResident/ROPING MACHINE TENDER/AA: Azam Yeager CRNAOther Staff: Clover Solorzano, RNAuthorized by: Cory Fleming MD SRNA Attestation: I was present and participated in the entire procedure with theSRNA/RRNA/JAIME, including the placement of the airway.Attesting provider: Azam Yeager CRNA Difficult Airway: No Preoxygenated with 100% O2: Yes C-spine Precautions Maintained Throughout: Yes Mask Ventilation: Not attemptedFinal Airway Type: Supraglottic airwayFinal LMA: I-GelLMA Size: 5Number of Attempts at Approach: 1POC panel 2023-01-24 16:23:01 Test Item Value Reference Range Interpretation Comments POC sodium (test code = 133 mmol/L 135-148 L 2947-0) POC potassium (test 5.4 mmol/L 3.5-5.0 H code = 6298-4) POC glucose (test code 268 mg/dL 65-99 H = 2339-0) POC creatinine (test 6.1 mg/dl 0.7-1.2 H Operato r Name: Pugne code = 75509-9) Lashell ID: [id number] POC hemoglobin (test 10.9 g/dL 14.0-18.0 L code = 718-7) POC hematocrit (test 32 % 41-51 L code = 4544-3) Lab Interpretation Abnormal (test code = 31805-8) [facility] [id number] 16:23:00 Test Item Value Reference Range Interpretation Comments Estimated GFR (test 10 mL/min/1.73 m2 A Edwina amaya Units code = 5488) InterpretationG 1 >=90 Normal or highG 2 60-89 Mildly decrease dG3a 45-59 Mildly to moderately decr gvfkbV0r 30-44 Moderatel y to severely decrea sedG4 15-29 Severely decreasedG5 <15 Kidney failureThe eGFR was calculated mary anne g the Chronic Kidney Disease Epidemiology Collaboration ( CKD-EPI) equation. Interpretation is based on recommendati ons of the National [facility]-Kidn ey Disease Outcome s Quality Initiat marshall (NKF-KDOQI) pub lished in 2013. Lab Interpretation Abnormal (test code = 94910-2) [facility] [id number] 16:05:59 Test Item Value Reference Range Interpretation Comments Ventricular rate (test 76 code = 253) Atrial rate (test code 76 = 255) ME interval (test code 120 = 266) QRSD interval (test 90 code = 260) QT interval (test code 402 = 264) QTC interval (test code 452 = 265) P axis 1 (test code = 43 267) QRS axis 1 (test code = -22 268) T wave axis (test code 73 = 270) EKG impression (test Normal sinus code = 273) rhythm-Normal ECG-In automated comparison with ECG of 07-JAN-2022 09:56,-premature ventricular complexes are no longer present- [facility] [id number] 18:18:47XR CHEST 2 VWCLINICAL INDICATION: N18.6 End stage renal disease, Preop Surgery COMPARISON: 01/07/2022 IMPRESSION: The lungs are clear without acute cardiopulmonary disease. Heart and mediastinal contours are within normal limits. Bones are unremarkable. No active disease or change. *[facility]-[id number] [id number] 21:00:00 Test Item Value Reference Range Interpretation Comments POC glucose (test code = 214 mg/dL 65-99 H Ope rator Name: 60164-0) Joshua haywood ID: [id number] able: RN Notified Lab Interpretation (test Abnormal code = 20402-5) [facility]2022-09-21 21:00:00 Test Item Value Reference Range Interpretation Comments POC glucose (test code = 214 mg/dL 65-99 H Ope rator Name: 30337-9) Joshua haywood ID: [id number] able: RN Notified Lab Interpretation (test Abnormal code = 16449-6) [facility]2022-09-21 21:00:00 Test Item Value Reference Range Interpretation Comments POC glucose (test code = 214 mg/dL 65-99 H Ope rator Name: 12894-6) Joshua haywood ID: [id number] able: RN Notified Lab Interpretation (test Abnormal code = 44827-8) [facility]2022-09-21 21:00:00 Test Item Value Reference Range Interpretation Comments POC glucose (test code = 214 mg/dL 65-99 H Ope rator Name: 65398-1) Joshua haywood ID: [id number] able: RN Notified Lab Interpretation (test Abnormal code = 94160-3) [facility]2022-09-21 21:00:00 Test Item Value Reference Range Interpretation Comments POC glucose (test code = 214 mg/dL 65-99 H Ope rator Name: 62754-8) Joshua haywood ID: [id number] able: RN Notified Lab Interpretation (test Abnormal code = 63279-0) [facility]2022-09-21 21:00:00 Test Item Value Reference Range Interpretation Comments POC glucose (test code = 214 mg/dL 65-99 H Ope rator Name: 96430-9) Joshua haywood ID: [id number] able: RN Notified Lab Interpretation (test Abnormal code = 98726-4) [facility]2022-09-21 21:00:00 Test Item Value Reference Range Interpretation Comments POC glucose (test code = 214 mg/dL 65-99 H Ope rator Name: 87185-3) Joshua haywood ID: [id number] able: RN Notified Lab Interpretation (test Abnormal code = 29848-1) [facility] [id number] 21:00:00 Test Item Value Reference Range Interpretation Comments POC glucose (test code = 214 mg/dL 65-99 H Ope rator Name: 18100-4) Joshua haywood ID: [id number] able: RN Notified Lab Interpretation (test Abnormal code = 33935-9) [facility]2022-09-21 21:00:00 Test Item Value Reference Range Interpretation Comments POC glucose (test code = 214 mg/dL 65-99 H Ope rator Name: 81216-3) Joshua haywood ID: [id number] able: RN Notified Lab Interpretation (test Abnormal code = 47655-6) [facility]2022-09-21 21:00:00 Test Item Value Reference Range Interpretation Comments POC glucose (test code = 214 mg/dL 65-99 H Ope rator Name: 97451-0) Joshua haywood ID: [id number] able: RN Notified Lab Interpretation (test Abnormal code = 70376-8) [facility] [id number] 13:44:01 Test Item Value Reference Range Interpretation Comments POC sodium (test code = 135 mmol/L 644-547 7475-0) POC potassium (test 4.5 mmol/L 3.5-5.0 code = 6298-4) POC glucose (test code 280 mg/dL 65-99 H = 2339-0) POC creatinine (test 6.0 mg/dl 0.7-1.2 H Operato r Name: code = 22685-0) Israel Roldan ID : [id number] POC hemoglobin (test 11.9 g/dL 14.0-18.0 L code = 718-7) POC hematocrit (test 35 % 41-51 L code = 4544-3) Lab Interpretation Abnormal (test code = 22111-3) [facility]2022-09-21 13:44:01 Test Item Value Reference Range Interpretation Comments POC sodium (test code = 135 mmol/L 312-504 5992-0) POC potassium (test 4.5 mmol/L 3.5-5.0 code = 6298-4) POC glucose (test code 280 mg/dL 65-99 H = 2339-0) POC creatinine (test 6.0 mg/dl 0.7-1.2 H Operato r Name: code = 21837-0) Israel Roldan ID : [id number] POC hemoglobin (test 11.9 g/dL 14.0-18.0 L code = 718-7) POC hematocrit (test 35 % 41-51 L code = 4544-3) Lab Interpretation Abnormal (test code = 53273-4) [facility]2022-09-21 13:44:01 Test Item Value Reference Range Interpretation Comments POC sodium (test code = 135 mmol/L 921-373 8410-0) POC potassium (test 4.5 mmol/L 3.5-5.0 code = 6298-4) POC glucose (test code 280 mg/dL 65-99 H = 2339-0) POC creatinine (test 6.0 mg/dl 0.7-1.2 H Operato r Name: code = 18781-1) Israel Roldan ID : [id number] POC hemoglobin (test 11.9 g/dL 14.0-18.0 L code = 718-7) POC hematocrit (test 35 % 41-51 L code = 4544-3) Lab Interpretation Abnormal (test code = 54623-5) [facility]2022-09-21 13:44:01 Test Item Value Reference Range Interpretation Comments POC sodium (test code = 135 mmol/L 239-970 4760-0) POC potassium (test 4.5 mmol/L 3.5-5.0 code = 6298-4) POC glucose (test code 280 mg/dL 65-99 H = 2339-0) POC creatinine (test 6.0 mg/dl 0.7-1.2 H Operato r Name: code = 93002-6) Israel Roldan ID : [id number] POC hemoglobin (test 11.9 g/dL 14.0-18.0 L code = 718-7) POC hematocrit (test 35 % 41-51 L code = 4544-3) Lab Interpretation Abnormal (test code = 33112-1) [facility]2022-09-21 13:44:01 Test Item Value Reference Range Interpretation Comments POC sodium (test code = 135 mmol/L 375-181 6555-0) POC potassium (test 4.5 mmol/L 3.5-5.0 code = 6298-4) POC glucose (test code 280 mg/dL 65-99 H = 2339-0) POC creatinine (test 6.0 mg/dl 0.7-1.2 H Operato r Name: code = 47526-7) Israel Roldan ID : [id number] POC hemoglobin (test 11.9 g/dL 14.0-18.0 L code = 718-7) POC hematocrit (test 35 % 41-51 L code = 4544-3) Lab Interpretation Abnormal (test code = 35074-8) [facility]2022-09-21 13:44:01 Test Item Value Reference Range Interpretation Comments POC sodium (test code = 135 mmol/L 701-185 3379-0) POC potassium (test 4.5 mmol/L 3.5-5.0 code = 6298-4) POC glucose (test code 280 mg/dL 65-99 H = 2339-0) POC creatinine (test 6.0 mg/dl 0.7-1.2 H Operato r Name: code = 32069-9) Israel Roldan ID : [id number] POC hemoglobin (test 11.9 g/dL 14.0-18.0 L code = 718-7) POC hematocrit (test 35 % 41-51 L code = 4544-3) Lab Interpretation Abnormal (test code = 58885-4) [facility]2022-09-21 13:44:01 Test Item Value Reference Range Interpretation Comments POC sodium (test code = 135 mmol/L 587-414 5871-0) POC potassium (test 4.5 mmol/L 3.5-5.0 code = 6298-4) POC glucose (test code 280 mg/dL 65-99 H = 2339-0) POC creatinine (test 6.0 mg/dl 0.7-1.2 H Operato r Name: code = 28398-4) Wood EmscottReji ID : [id number] POC hemoglobin (test 11.9 g/dL 14.0-18.0 L code = 718-7) POC hematocrit (test 35 % 41-51 L code = 4544-3) Lab Interpretation Abnormal (test code = 19147-5) [facility]2022-09-21 13:44:01 Test Item Value Reference Range Interpretation Comments POC sodium (test code = 135 mmol/L 313-904 9018-0) POC potassium (test 4.5 mmol/L 3.5-5.0 code = 6298-4) POC glucose (test code 280 mg/dL 65-99 H = 2339-0) POC creatinine (test 6.0 mg/dl 0.7-1.2 H Operato r Name: code = 53820-5) Wood scottReji ID : [id number] POC hemoglobin (test 11.9 g/dL 14.0-18.0 L code = 718-7) POC hematocrit (test 35 % 41-51 L code = 4544-3) Lab Interpretation Abnormal (test code = 35410-6) [facility]2022-09-21 13:44:01 Test Item Value Reference Range Interpretation Comments POC sodium (test code = 135 mmol/L 285-015 0487-0) POC potassium (test 4.5 mmol/L 3.5-5.0 code = 6298-4) POC glucose (test code 280 mg/dL 65-99 H = 2339-0) POC creatinine (test 6.0 mg/dl 0.7-1.2 H Operato r Name: code = 35629-2) Wood scottReji ID : [id number] POC hemoglobin (test 11.9 g/dL 14.0-18.0 L code = 718-7) POC hematocrit (test 35 % 41-51 L code = 4544-3) Lab Interpretation Abnormal (test code = 04697-8) [facility]2022-09-21 13:44:01 Test Item Value Reference Range Interpretation Comments POC sodium (test code = 135 mmol/L 020-780 1996-0) POC potassium (test 4.5 mmol/L 3.5-5 code = 6298-4) POC glucose (test code 280 mg/dL 65-99 H = 2339-0) POC creatinine (test 6.0 mg/dl 0.7-1.2 H Operato r Name: code = 08716-2) Israel Roldan ID : [id number] POC hemoglobin (test 11.9 g/dL 14-18 L code = 718-7) POC hematocrit (test 35 % 41-51 L code = 4544-3) Lab Interpretation Abnormal (test code = 02878-8) [facility] [id number] 13:44:00 Test Item Value Reference Range Interpretation Comments Estimated GFR (test mL/min/1.73 m2 A Caterg ory Units code = 43692-8) Interpretati onG1 >=90 Normal or highG 2 60-89 Mildly decrease dG3a 45-59 Mildly to moderately decr hmfvdU9r 30-44 Moderatel y to severely decrea sedG4 15-29 Severely decreasedG5 <15 Kidney failureThe eGFR was calculated usin g the Chronic Kidney Disease Epidemiology Collaboration ( CKD-EPI) equation. Interpretation is based on recommendati ons of the [facility] [employer] [facility] Disease Outcome s Quality Initiat marshall (NK-KDOQI) pub lished in 2013. Lab Interpretation Abnormal (test code = 41184-2) [facility] [id number] 13:44:00 Test Item Value Reference Range Interpretation Comments Estimated GFR (test mL/min/1.73 m2 A Caterg ory Units code = 79527-6) Interpretati onG1 >=90 Normal or highG 2 60-89 Mildly decrease dG3a 45-59 Mildly to moderately decr wxqrwZ7c 30-44 Moderatel y to severely decrea sedG4 15-29 Severely decreasedG5 <15 Kidney failureThe eGFR was calculated usin g the Chronic Kidney Disease Epidemiology Collaboration ( CKD-EPI) equation. Interpretation is based on recommendati ons of the [facility] [employer] [facility] Disease Outcome s Quality Initiat marshall (NK-KDOQI) pub lished in 2013. Lab Interpretation Abnormal (test code = 24732-5) [facility] [id number] 13:44:00 Test Item Value Reference Range Interpretation Comments Estimated GFR (test mL/min/1.73 m2 A Caterg ory Units code = 48558-5) Interpretati onG1 >=90 Normal or highG 2 60-89 Mildly decrease dG3a 45-59 Mildly to moderately decr vgrnvH4n 30-44 Moderatel y to severely decrea sedG4 15-29 Severely decreasedG5 <15 Kidney failureThe eGFR was calculated usin g the Chronic Kidney Disease Epidemiology Collaboration ( CKD-EPI) equation. Interpretation is based on recommendati ons of the [facility] Disease Outcome s Quality Initiat marshall ([facility]-KDOQI) pub lished in 2013. Lab Interpretation Abnormal (test code = 09214-3) [facility] [id number] 13:44:00 Test Item Value Reference Range Interpretation Comments Estimated GFR (test 10 mL/min/1.73 m2 A Caterg ory Units code = 56155-0) Interpretati onG1 >=90 Normal or highG 2 60-89 Mildly decrease dG3a 45-59 Mildly to moderately decr gganaB2y 30-44 Moderatel y to severely decrea sedG4 15-29 Severely decreasedG5 <15 Kidney failureThe eGFR was calculated usin g the Chronic Kidney Disease Epidemiology Collaboration ( CKD-EPI) equation. Interpretation is based on recommendati ons of the [facility] Disease Outcome s Quality Initiat marshall ([facility]-KDOQI) pub lished in 2013. Lab Interpretation Abnormal (test code = 37575-8) [facility] [id number] 13:44:00 Test Item Value Reference Range Interpretation Comments Estimated GFR (test 10 mL/min/1.73 m2 A Caterg ory Units code = 03166-2) Interpretati onG1 >=90 Normal or highG 2 60-89 Mildly decrease dG3a 45-59 Mildly to moderately decr zixybY0v 30-44 Moderatel y to severely decrea sedG4 15-29 Severely decreasedG5 <15 Kidney failureThe eGFR was calculated usin g the Chronic Kidney Disease Epidemiology Collaboration ( CKD-EPI) equation. Interpretation is based on recommendati ons of the [facility] Disease Outcome s Quality Initiat marshall ([facility]-KDOQI) pub lished in 2013. Lab Interpretation Abnormal (test code = 29884-6) [facility] [id number] 13:44:00 Test Item Value Reference Range Interpretation Comments Estimated GFR (test 10 mL/min/1.73 m2 A Caterg ory Units code = 63459-5) Interpretati onG1 >=90 Normal or highG 2 60-89 Mildly decrease dG3a 45-59 Mildly to moderately decr oxcdwB2e 30-44 Moderatel y to severely decrea sedG4 15-29 Severely decreasedG5 <15 Kidney failureThe eGFR was calculated usin g the Chronic Kidney Disease Epidemiology Collaboration ( CKD-EPI) equation. Interpretation is based on recommendati ons of the [facility] Disease Outcome s Quality Initiat marshall ([facility]-KDOQI) pub lished in 2013. Lab Interpretation Abnormal (test code = 79686-6) [facility] [id number] 13:44:00 Test Item Value Reference Range Interpretation Comments Estimated GFR (test 10 mL/min/1.73 m2 A Caterg ory Units code = 46574-7) Interpretati onG1 >=90 Normal or highG 2 60-89 Mildly decrease dG3a 45-59 Mildly to moderately decr dzayiE3g 30-44 Moderatel y to severely decrea sedG4 15-29 Severely decreasedG5 <15 Kidney failureThe eGFR was calculated usin g the Chronic Kidney Disease Epidemiology Collaboration ( CKD-EPI) equation. Interpretation is based on recommendati ons of the [facility] Disease Outcome s Quality Initiat marshall (NK-KDOQI) pub lished in 2013. Lab Interpretation Abnormal (test code = 73051-2) [facility] [id number] 13:44:00 Test Item Value Reference Range Interpretation Comments Estimated GFR (test 10 mL/min/1.73 m2 A Caterg ory Units code = 02938-5) Interpretati onG1 >=90 Normal or highG 2 60-89 Mildly decrease dG3a 45-59 Mildly to moderately decr snhlbS4n 30-44 Moderatel y to severely decrea sedG4 15-29 Severely decreasedG5 <15 Kidney failureThe eGFR was calculated usin g the Chronic Kidney Disease Epidemiology Collaboration ( CKD-EPI) equation. Interpretation is based on recommendati ons of the [facility] Disease Outcome s Quality Initiat marshall ([facility]-KDOQI) pub lished in 2013. Lab Interpretation Abnormal (test code = 27680-6) [facility] [id number] 13:44:00 Test Item Value Reference Range Interpretation Comments Estimated GFR (test 10 mL/min/1.73 m2 A Caterg ory Units code = 61207-1) Interpretati onG1 >=90 Normal or highG 2 60-89 Mildly decrease dG3a 45-59 Mildly to moderately decr biuziA0o 30-44 Moderatel y to severely decrea sedG4 15-29 Severely decreasedG5 <15 Kidney failureThe eGFR was calculated usin g the Chronic Kidney Disease Epidemiology Collaboration ( CKD-EPI) equation. Interpretation is based on recommendati ons of the [facility] Disease Outcome s Quality Initiat marshall (NK-KDOQI) pub lished in 2013. Lab Interpretation Abnormal (test code = 30673-4) [facility] [id number] 13:44:00 Test Item Value Reference Range Interpretation Comments Estimated GFR (test mL/min/1.73 m2 A Caterg ory Units code = 46436-3) Interpretati onG1 >=90 Normal or highG 2 60-89 Mildly decrease dG3a 45-59 Mildly to moderately decr hxqyfJ3k 30-44 Moderate ly to severely decrea sedG4 15-29 Severely decreasedG5 <15 Kidney failureThe eGFR was calculated usin g the Chronic Kidney Disease Epidemiology Collaboration ( CKD-EPI) equation. Interpretation is based on recommendati ons of the [facility] Disease Outcome s Quality Initiat marshall (NK-KDOQI) pub lished in 2013. Lab Interpretation Abnormal (test code = 05976-3) [facility] [Presence] in Respiratory specimen by YESENIA with probe [id number] 17:48:52 Test Item Value Reference Range Interpretation Comments SARS-CoV-2 (COVID-19) RNA Not detected [Presence] in Respiratory specimen by YESENIA with probe detection (test code = 59369-5) Whether patient is employed in a Unknown healthcare setting (test code = 02702-3) Whether the patient has symptoms Unknown related to condition of interest (test code = 85893-9) Whether the patient was Unknown hospitalized for condition of interest (test code = 99679-5) Whether the patient was admitted Unknown to intensive care unit (ICU) for condition of interest (test code = 40786-0) Whether patient resides in a Unknown congregate care setting (test code = 36812-6) status (test code = Unknown 53291-1) Date and time of symptom onset Unknown (test code = 34652-6) [facility] Pre/Post [id number] 17:20:24 Test Item Value Reference Range Interpretation Comments Ventricular rate (test code = 253) Atrial rate (test code = 255) ME interval (test code = 266) QRSD interval [...] axis deviation-Abnormal ECG-No previous ECGs available- [facility] Pre/Post [id number] 17:20:24 Test Item Value Reference Range Interpretation Comments Ventricular rate (test code = 253) Atrial rate (test code = 255) ME interval (test code = 266) QRSD interval [...] axis deviation-Abnormal ECG-No previous ECGs available- [facility] Pre/Post [id number] 17:20:24 Test Item Value Reference Range Interpretation Comments Ventricular rate (test code = 253) Atrial rate (test code = 255) ME interval (test code = 266) QRSD interval [...] axis deviation-Abnormal ECG-No previous ECGs available- [facility] Pre/Post [id number] 17:20:24 Test Item Value Reference Range Interpretation Comments Ventricular rate 91 (test code = 253) Atrial rate (test 91 code = 255) ME interval (test 114 code = 266) QRSD [...] axis deviation-Abnormal ECG-No previous ECGs available- [facility] Pre/Post [id number] 17:20:24 Test Item Value Reference Range Interpretation Comments Ventricular rate 91 (test code = 253) Atrial rate (test 91 code = 255) ME interval (test 114 code = 266) QRSD [...] axis deviation-Abnormal ECG-No previous ECGs available- [facility] Pre/Post [id number] 17:20:24 Test Item Value Reference Range Interpretation Comments Ventricular rate 91 (test code = 253) Atrial rate (test 91 code = 255) ME interval (test 114 code = 266) QRSD [...] axis deviation-Abnormal ECG-No previous ECGs available- [facility] Pre/Post [id number] 17:20:24 Test Item Value Reference Range Interpretation Comments Ventricular rate 91 (test code = 253) Atrial rate (test 91 code = 255) ME interval (test 114 code = 266) QRSD [...] axis deviation-Abnormal ECG-No previous ECGs available- [facility] Pre/Post [id number] 17:20:24 Test Item Value Reference Range Interpretation Comments Ventricular rate 91 (test code = 253) Atrial rate (test 91 code = 255) ME interval (test 114 code = 266) QRSD [...] axis deviation-Abnormal ECG-No previous ECGs available- [facility] Pre/Post [id number] 17:20:24 Test Item Value Reference Range Interpretation Comments Ventricular rate 91 (test code = 253) Atrial rate (test 91 code = 255) ME interval (test 114 code = 266) QRSD [...] axis deviation-Abnormal ECG-No previous ECGs available- [facility] Pre/Post [id number] 17:20:24 Test Item Value Reference Range Interpretation Comments Ventricular rate (test code = 253) Atrial rate (test code = 255) ME interval (test code = 266) QRSD interval (test code = 260) QT interval (test code = 264) QTC interval (test code = 265) P axis 1 (test code = 267) QRS axis 1 (test code = 268) T wave axis (test code = 270) EKG impression (test Sinus rhythm with code = 273) occasional premature ventricular complexes-Left axis deviation-Abnormal ECG-No previous ECGs available- [facility]2022-09-19 15:46:00 Test Item Value Reference Range Interpretation Comments Urine culture (test SEE COMMENT Bacteriu lashell screen code = 8235053) negative. [facility]2022-09-19 15:46:00 Test Item Value Reference Range Interpretation Comments Urine culture (test SEE COMMENT Bacteriu lashell screen code = 9215067) negative. [facility]2022-09-19 15:46:00 Test Item Value Reference Range Interpretation Comments Urine culture (test SEE COMMENT Bacteriu lashell screen code = 9817143) negative. [facility]2022-09-19 15:46:00 Test Item Value Reference Range Interpretation Comments Urine culture (test SEE COMMENT Bacteriu lashell screen code = 8268935) negative. [facility]2022-09-19 15:46:00 Test Item Value Reference Range Interpretation Comments Urine culture (test SEE COMMENT Bacteriu lashell screen code = 8357573) negative. [facility] [id number] 15:46:00 Test Item Value Reference Range Interpretation Comments Urine culture (test SEE COMMENT Bacteriu lashell screen code = 9661910) negative. [facility] [id number] 15:46:00 Test Item Value Reference Range Interpretation Comments Urine culture (test SEE COMMENT Bacteriu lashell screen code = 5268519) negative. [facility]2022-09-19 15:46:00 Test Item Value Reference Range Interpretation Comments Urine culture (test SEE COMMENT Bacteriu lashell screen code = 8292521) negative. [facility] [id number] 15:46:00 Test Item Value Reference Range Interpretation Comments Urine culture (test SEE COMMENT Bacteriu lashell screen code = 4481570) negative. [facility]2022-09-19 15:46:00 Test Item Value Reference Range Interpretation Comments Urine culture (test SEE COMMENT Bacteriu lashell screen code = 0638258) negative. [facility] surface [id number] 22:01:34 Test Item Value Reference Range Interpretation Comments Hep B S Ab (test code See_Comment [Auto mated = 06104-8) message] The system which generated this result transmit brad reference range : <8.0 mIU/mL. Th e reference range was not used to interpret this result as normal/abnormal . TALIB (test code = TALIB) Technology Coordinator ID - DB Lab Interpretation Normal (test code = 94736-3) [facility] [id number] 22:01:34 Test Item Value Reference Range Interpretation Comments Hep B S Ab (test code <8.0 See_Comment [Auto mated = 26980-0) message] The system which generated this result transmit brad reference range : <8.0 mIU/mL. Th e reference range was not used to interpret this result as normal/abnormal . TALIB (test code = TALIB) Technology Coordinator ID - DB Lab Interpretation Normal (test code = 64843-1) [facility] [id number] 22:01:34 Test Item Value Reference Range Interpretation Comments Hep B S Ab (test code <8.0 See_Comment [Auto mated = 10649-1) message] The system which generated this result transmit brad reference range : <8.0 mIU/mL. Th e reference range was not used to interpret this result as normal/abnormal . TALIB (test code = TALIB) Technology Coordinator ID - DB Lab Interpretation Normal (test code = 18943-5) [facility] B surface [id number] 22:01:34 Test Item Value Reference Range Interpretation Comments Hep B S Ab (test code <8.0 See_Comment [Auto mated = 94872-1) message] The system which generated this result transmit brad reference range : <8.0 mIU/mL. Th e reference range was not used to interpret this result as normal/abnormal . TALIB (test code = TALIB) Technology Coordinator ID - DB Lab Interpretation Normal (test code = 16126-2) [facility] B surface [id number] 22:01:34 Test Item Value Reference Range Interpretation Comments Hep B S Ab (test code <8.0 See_Comment [Auto mated = 73275-0) message] The system which generated this result transmit brad reference range : <8.0 mIU/mL. Th e reference range was not used to interpret this result as normal/abnormal . TALIB (test code = TALIB) Technology Coordinator ID - DB Lab Interpretation Normal (test code = 88387-9) [facility] B surface [id number] 22:01:34 Test Item Value Reference Range Interpretation Comments Hep B S Ab (test code <8.0 See_Comment [Auto mated = 03275-0) message] The system which generated this result transmit brad reference range : <8.0 mIU/mL. Th e reference range was not used to interpret this result as normal/abnormal . TALIB (test code = TALIB) Technology Coordinator ID - DB Lab Interpretation Normal (test code = 03470-9) [facility] B surface [id number] 22:01:34 Test Item Value Reference Range Interpretation Comments Hep B S Ab (test code <8.0 See_Comment [Auto mated = 63222-1) message] The system which generated this result transmit brad reference range : <8.0 mIU/mL. Th e reference range was not used to interpret this result as normal/abnormal . TALIB (test code = TALIB) Technology Coordinator ID - DB Lab Interpretation Normal (test code = 80430-9) [facility] [id number] 22:01:34 Test Item Value Reference Range Interpretation Comments HEPATITIS B SURFACE ANTIBODY < mIU/mL <8.0 (BEAKER) (test code = 647) Technology Coordinator ID - DBHepatitis B core antibody, [id number] 21:52:25 Test Item Value Reference Range Interpretation Comments Hep B C IgM (test code = Nonreactive Nonreactive 78437-8) TALIB (test code = TALIB) Technology Coordinator ID - DB Lab Interpretation (test Normal code = 80667-9) [facility] core antibody, [id number] 21:52:25 Test Item Value Reference Range Interpretation Comments Hep B C IgM (test code = Nonreactive Nonreactive 08019-8) TALIB (test code = TALIB) Technology Coordinator ID - DB Lab Interpretation (test Normal code = 14427-7) [facility] core antibody, [id number] 21:52:25 Test Item Value Reference Range Interpretation Comments Hep B C IgM (test code = Nonreactive Nonreactive 37556-4) TALIB (test code = TALIB) Technology Coordinator ID - DB Lab Interpretation (test Normal code = 19676-8) [facility] core antibody, [id number] 21:52:25 Test Item Value Reference Range Interpretation Comments Hep B C IgM (test code = Nonreactive Nonreactive 81036-8) TALIB (test code = TALIB) Technology Coordinator ID - DB Lab Interpretation (test Normal code = 13177-4) [facility], [id number] 21:52:25 Test Item Value Reference Range Interpretation Comments Hep B C IgM (test code = Nonreactive Nonreactive 64793-2) TALIB (test code = TALIB) Technology Coordinator ID - DB Lab Interpretation (test Normal code = 13643-9) [facility], [id number] 21:52:25 Test Item Value Reference Range Interpretation Comments Hep B C IgM (test code = Nonreactive Nonreactive 73502-7) TALIB (test code = TALIB) Technology Coordinator ID - DB Lab Interpretation (test Normal code = 86383-1) [facility], [id number] 21:52:25 Test Item Value Reference Range Interpretation Comments Hep B C IgM (test code = Nonreactive Nonreactive 83527-9) TALIB (test code = TALIB) Technology Coordinator ID - DB Lab Interpretation (test Normal code = 03579-0) [facility], [id number] 21:52:25 Test Item Value Reference Range Interpretation Comments HEPATITIS B CORE IGM ANTIBODY Nonreactive Nonreactive (BEAKER) (test code = 645) Technology Coordinator ID - DBHepatitis B surface [id number] 21:52:19 Test Item Value Reference Range Interpretation Comments Hepatitis B surface Nonreactive Nonreactive antigen (test code = 5195-3) TALIB (test code = TALIB) Specimen is considered negative for HBsAg. Lab Interpretation (test Normal code = 09903-9) [facility] [id number] 21:52:19 Test Item Value Reference Range Interpretation Comments Hepatitis B surface Nonreactive Nonreactive antigen (test code = 5195-3) TALIB (test code = TALIB) Specimen is considered negative for HBsAg. Lab Interpretation (test Normal code = 60773-3) [facility] [id number] 21:52:19 Test Item Value Reference Range Interpretation Comments Hepatitis B surface Nonreactive Nonreactive antigen (test code = 5195-3) TALIB (test code = TALIB) Specimen is considered negative for HBsAg. Lab Interpretation (test Normal code = 78480-0) [facility] [id number] 21:52:19 Test Item Value Reference Range Interpretation Comments Hepatitis B surface Nonreactive Nonreactive antigen (test code = 5195-3) TALIB (test code = TALIB) Specimen is considered negative for HBsAg. Lab Interpretation (test Normal code = 58223-6) [facility] [id number] 21:52:19 Test Item Value Reference Range Interpretation Comments Hepatitis B surface Nonreactive Nonreactive antigen (test code = 5195-3) TALIB (test code = TALIB) Specimen is considered negative for HBsAg. Lab Interpretation (test Normal code = 87056-6) [facility] [id number] 21:52:19 Test Item Value Reference Range Interpretation Comments Hepatitis B surface Nonreactive Nonreactive antigen (test code = 5195-3) TALIB (test code = TALIB) Specimen is considered negative for HBsAg. Lab Interpretation (test Normal code = 34198-3) [facility] B surface [id number] 21:52:19 Test Item Value Reference Range Interpretation Comments Hepatitis B surface Nonreactive Nonreactive antigen (test code = 5195-3) TALIB (test code = TALIB) Specimen is considered negative for HBsAg. Lab Interpretation (test Normal code = 23135-6) [facility] B SURFACE [id number] 21:52:19 Test Item Value Reference Range Interpretation Comments HEPATITIS B SURFACE ANTIGEN (2) Nonreactive Nonreactive (BEAKER) (test code = 2585) Specimen is considered negative for HBsAg.
[2023-03-22 03:43] LABS: Absolute Lymphocytes (CBC) 1.8 K/uL (0.7-4.9); Hematocrit 29.4 % (39.6-49.0); Lymphocytes % 22.7 % (15.3-44.8); MCV 89.5 fL (80-100); MPV 7.5 fL (7.6-11.3); Platelets 220 thou/uL (152-406); RBC Red Blood Cell Count 3.29 M/uL (4.33-5.43)
[2023-03-22 04:09] LABS: ALT/SGPT 25 U/L (16-61); AST/SGOT 9 U/L (15-37); Alkaline Phosphatase 167 U/L (45-117); BUN Blood Urea Nitrogen 49 mg/dL (7-18); Bicarbonate 22 mEq/L (21-32); Bilirubin Total 0.3 mg/dL (0.2-1.0); Glomerular Filtration Rate 9 ml/min (=/>90); Glucose Level 369 mg/dL (74-106); Potassium 4.6 mEq/L (3.5-5.1); Protein, Total 6.7 g/dL (6.4-8.2); Sodium Level 132 mEq/L (136-145); Troponin High Sensitivity 19.1 pg/mL (<58.9)
[2023-03-22 04:10] LABS: Bilirubin Direct < 0.1 mg/dL (0-0.2); Bilirubin Indirect, Calculated ND mg/dL (0.2-0.8)
--- NOTE | 2023-03-22 04:32 | EDPHYS ---
Physician Documentation [facility] Name: Chava Pate Age: 47 yrs Sex: Male : 1975 Arrival Date: 03/22/2023 Time: 03:00 Bed 8 Private MD: ED Physician Bam Bonds HPI: 03/22 04:39 This 47 yrs old Male presents to ER via Ambulatory with complaints of Dyspnea. rt 04:39 Patient who is a Friday dialysis patient presents to the ED with rt dyspnea starting about 130 this morning waking him up. He is due for dialysis at 5:30 in the morning. The patient denies any chest pain. Denies other acute complaints. States that symptoms have improved after he sat upright. Denies other acute complaints at this time, symptoms are moderate severity, no other aggravating or elevating factors.. Historical: - Allergies: 03:41 No Known Allergies; nw1 - PMHx: 03:41 Congestive heart failure; ESRD; Hypertension; neuropathy; IDDM; nw1 - PSHx: 03:41 Left arm fistula; nw1 - Immunization history:: Adult Immunizations up to date, Client reports receiving the 2nd dose of the Covid vaccine, Flu vaccine is up to date. - Social history:: Smoking status: Patient denies any tobacco usage or history of. Patient uses alcohol, occasionally. Patient/guardian denies using street drugs. - Family history:: not pertinent. ROS: 04:39 Constitutional: Negative for fever, chills, and weight loss, Cardiovascular: Negative rt for chest pain, palpitations, and edema, Abdomen/GI: Negative for abdominal pain, nausea, vomiting, diarrhea, and constipation, MS/Extremity: Negative for injury and deformity, Skin: Negative for injury, rash, and discoloration, Neuro: Negative for headache, weakness, numbness, tingling, and seizure, Psych: Negative for depression, anxiety, suicide ideation, homicidal ideation, and hallucinations, 04:39 Respiratory: Positive for cough, shortness of breath, Exam: 04:39 Constitutional: This is a well developed, well nourished patient who is awake, alert, rt and in no acute distress. Head/Face: Normocephalic, atraumatic. Chest/axilla: Normal chest wall appearance and motion. Nontender with no deformity. No lesions are appreciated. Cardiovascular: Regular rate and rhythm with a normal S1 and S2. No gallops, murmurs, or rubs. Normal PMI, no JVD. No pulse deficits. Respiratory: Lungs have equal breath sounds bilaterally, clear to auscultation and percussion. No rales, rhonchi or wheezes noted. No increased work of breathing, no retractions or nasal flaring. Abdomen/GI: Soft, non-tender, with normal bowel sounds. No distension or tympany. No guarding or rebound. No evidence of tenderness throughout. Skin: Warm, dry with normal turgor. Normal color with no rashes, no lesions, and no evidence of cellulitis. MS/ Extremity: Pulses equal, no cyanosis. Neurovascular intact. Full, normal range of motion. Neuro: Awake and alert, GCS 15, oriented to person, place, time, and situation. Cranial nerves II-XII grossly intact. Motor strength 5/5 in all extremities. Sensory grossly intact. Cerebellar exam normal. Normal gait. Psych: Awake, alert, with orientation to person, place and time. Behavior, mood, and affect are within normal limits. 05:01 ECG was reviewed by the Attending Physician. rt Vital Signs: 03:07 BP 196 / 87; Pulse 78; Resp 20; Temp 98(O); Pulse Ox 99% on R/A; Weight 106.59 kg (R); km8 Height 5 ft. 8 in. (R); Pain 0/10; 03:45 BP 140 / 85; Pulse 83; Pulse Ox 95% on R/A; nw1 04:44 BP 150 / 83; Pulse 80; Resp 15; Pulse Ox 98% on R/A; nw1 03:07 Body Mass Index 35.73 (106.59 kg, 172.72 cm) [facility] 03:07 Pain Scale: Adult km8 Warren Coma Score: 03:45 Eye Response: spontaneous(4). Motor Response: obeys commands(6). Verbal Response: nw1 oriented(5). Total: 15. MDM: 03:09 Patient medically screened. rt 04:39 Differential Diagnosis Volume overload, ESRD, pneumonia, pneumothorax. Data reviewed: rt vital signs, nurses notes. Consideration of Admission/Observation Escalation of care including admission/observation considered. Patient with mild volume overload, has a dialysis appointment. Independent interpretation of the following test(s) in the Emergency Department X-Ray: My interpretation is Pulmonary edema syndrome interpretation of x-ray images. Test considered but Not performed: CT: Low suspicion for PE, CT angiogram not indicated. Care significantly affected by the following chronic conditions: Chronic Kidney Disease. Counseling: I had a detailed discussion with the patient and/or guardian regarding the historical points, exam findings, and any diagnostic results supporting the discharge/admit diagnosis, lab results, radiology results, the need for outpatient follow up, to return to the emergency department if symptoms worsen or persist or if there are any questions or concerns that arise at home. 03/22 03:17 Order name: Basic Metabolic Panel; Complete Time: 04:11 rt 03/22 03:17 Order name: CBC with Diff; Complete Time: 04:11 rt 03/22 03:17 Order name: LFT's; Complete Time: 04:11 rt 03/22 03:17 Order name: Troponin HS; Complete Time: 04:11 rt 03/22 03:17 Order name: XRAY Chest (1 view) rt 03/22 03:17 Order name: EKG; Complete Time: 03:18 rt 03/22 03:17 Order name: Cardiac monitoring; Complete Time: 03:24 rt 03/22 03:17 Order name: EKG - Nurse/Tech; Complete Time: 03:34 rt 03/22 03:17 Order name: IV Saline Lock; Complete Time: 03:24 rt 03/22 03:17 Order name: Labs collected and sent; Complete Time: 03:24 rt 03/22 03:17 Order name: O2 Per Protocol; Complete Time: 03:24 rt 03/22 03:17 Order name: O2 Sat Monitoring; Complete Time: 03:24 rt EC:01 Rate is 84 beats/min. Rhythm is regular, Normal Sinus Rhythm with No ectopy. QRS Gay rt is Normal. DC interval is normal. QRS interval is normal. QT interval is normal. No Q waves. T waves are Normal. No ST changes noted. Interpreted by me. Administered Medications: No medications were administered Disposition Summary: 03/22/23 04:32 Discharge Ordered Notes: Location: Home rt Problem: an acute exacerbation rt Symptoms: have improved rt Condition: Stable rt Diagnosis - End-stage renal disease rt - Dyspnea rt Followup: rt - With: Private Physician - When: Today - Reason: Discharge Instructions: - Discharge Summary Sheet rt - Eating Plan for Dialysis rt Forms: - Medication Reconciliation Form rt - Thank You Letter rt - Antibiotic Education rt - Prescription Opioid Use rt - Patient Portal Instructions rt - Leadership Thank You Letter rt Signatures: Dispatcher [employer] Kate Delacruz PA-C PAJacquelin sb4 Bam Bonds MD MD rt Mica Frank RN RN km8 Rhiannon Walsh RN RN nw1
--- NOTE | 2023-03-22 04:32 | ER ---
Nurse's Notes [facility] Name: Chava Pate Age: 47 yrs Sex: Male : 1975 Arrival Date: 03/22/2023 Time: 03:00 Bed 8 Private MD: Diagnosis: End-stage renal disease;Dyspnea Presentation: 03/22 03:07 Chief complaint: Patient states: SOB while trying to go back to sleep starting at about km8 0130 this morning; denies CP; pt is a dialysis pt Tues/Thurs/ Sat. Coronavirus screen: Client denies travel out of the [place] in the last 14 days. Ebola Screen: No symptoms or risks identified at this time. Initial Sepsis Screen: Does the patient meet any 2 criteria? No. Patient's initial sepsis screen is negative. Does the patient have a suspected source of infection? No. Patient's initial sepsis screen is negative. Risk Assessment: Do you want to hurt yourself or someone else? Patient reports no desire to harm self or others. Onset of symptoms was March 22, 2023 at 01:30. 03:07 Method Of Arrival: Ambulatory km8 03:07 Acuity: EDINSON 3 km8 Triage Assessment: 03:07 General: Appears in no apparent distress. comfortable, Behavior is calm, cooperative, km8 appropriate for age. Pain: Denies pain. EENT: No deficits noted. No signs and/or symptoms were reported regarding the EENT system. Neuro: Clayton Agitation-Sedation Scale (RASS): 0 - Alert and Calm Level of Consciousness is awake, alert, obeys commands, Oriented to person, place, time, situation. Cardiovascular: Reports shortness of breath, Denies chest pain, Capillary refill < 3 seconds Patient's skin is warm and dry. Respiratory: Reports shortness of breath at rest Airway is patent Respiratory effort is even, unlabored, Respiratory pattern is regular, symmetrical. GI: No signs and/or symptoms were reported involving the gastrointestinal system. : No signs and/or symptoms were reported regarding the genitourinary system. Derm: No signs and/or symptoms reported regarding the dermatologic system. Skin is intact, is healthy with good turgor, Skin is dry, Skin is pink, warm \T\ dry. normal, Skin temperature is warm fistula to left forearm. Musculoskeletal: No signs and/or symptoms reported regarding the musculoskeletal system. Range of motion: intact in all extremities. Historical: - Allergies: 03:41 No Known Allergies; nw1 - PMHx: 03:41 Congestive heart failure; ESRD; Hypertension; neuropathy; IDDM; nw1 - PSHx: 03:41 Left arm fistula; nw1 - Immunization history:: Adult Immunizations up to date, Client reports receiving the 2nd dose of the Covid vaccine, Flu vaccine is up to date. - Social history:: Smoking status: Patient denies any tobacco usage or history of. Patient uses alcohol, occasionally. Patient/guardian denies using street drugs. - Family history:: not pertinent. Screenin:25 [facility] ED Fall Risk Assessment (Adult) History of falling in the last 3 months, km8 including since admission No falls in past 3 months (0 pts) Confusion or Disorientation No (0 pts) Intoxicated or Sedated No (0 pts) Impaired Gait No (0 pts) Mobility Assist Device Used No (0 pt) Altered Elimination No (0 pt) Score/Fall Risk Level 0 - 2 = Low Risk Oriented to surroundings, Maintained a safe environment, Educated pt \T\ family on fall prevention, incl call for assistance when getting out of bed, Assessed \T\ reinforced patient's understanding of fall precautions. Abuse screen: Denies threats or abuse. Denies injuries from another. Nutritional screening: No deficits noted. Tuberculosis screening: No symptoms or risk factors identified. Assessment: 03:43 Reassessment: See triage note. General: Appears in no apparent distress. comfortable, nw1 Behavior is calm, cooperative, appropriate for age. Pain: Denies pain. Neuro: No deficits noted. Level of Consciousness is awake, alert, obeys commands, Oriented to person, place, time, situation, Appropriate for age Photocomposing Machine Operator are equal bilaterally. Cardiovascular: Reports PMHx of CHF, HTN. Respiratory: Reports shortness of breath at 0130 this morning. 0 s/s of acute respiratory distress noted. GI: No signs and/or symptoms were reported involving the gastrointestinal system. Abdomen is obese. : Reports HD T/TH/S. Musculoskeletal: No signs and/or symptoms reported regarding the musculoskeletal system. Vital Signs: 03:07 BP 196 / 87; Pulse 78; Resp 20; Temp 98(O); Pulse Ox 99% on R/A; Weight 106.59 kg (R); km8 Height 5 ft. 8 in. (R); Pain 0/10; 03:45 BP 140 / 85; Pulse 83; Pulse Ox 95% on R/A; nw1 04:44 BP 150 / 83; Pulse 80; Resp 15; Pulse Ox 98% on R/A; nw1 03:07 Body Mass Index 35.73 (106.59 kg, 172.72 cm) km8 03:07 Pain Scale: Adult km8 [place] Coma Score: 03:45 Eye Response: spontaneous(4). Motor Response: obeys commands(6). Verbal Response: nw1 oriented(5). Total: 15. ED Course: 03:06 Patient arrived in ED. sb4 03:06 Bam Bonds MD is Attending Physician. rt 03:07 Arm band placed on right wrist. km8 03:08 Triage completed. km8 03:15 Patient has correct armband on for positive identification. Placed in gown. Bed in low km8 position. Call light in reach. Side rails up X 1. Client placed on continuous cardiac and pulse oximetry monitoring. NIBP monitoring applied. 03:15 Patient maintains SpO2 saturation greater than 95% on room air. km8 03:16 Rhiannon Walsh, RN is Primary Nurse. nw1 03:23 No provider procedures requiring assistance completed. Inserted saline lock: 20 gauge km8 in right forearm, using aseptic technique. Blood collected. 03:24 CBC with Diff Sent. la4 03:24 LFT's Sent. la4 03:24 Troponin HS Sent. la4 03:45 Provided Education on: POC. nw1 03:49 XRAY Chest (1 view) In Process Unspecified. EDMS 04:44 IV discontinued, intact, bleeding controlled, No redness/swelling at site. Pressure nw1 dressing applied. Administered Medications: No medications were administered Medication: 03:25 VIS not applicable for this client. km8 Outcome: 04:32 Discharge ordered by . rt 04:44 Discharged to home ambulatory, nw1 04:44 Condition: stable 04:44 Discharge instructions given to patient, Instructed on discharge instructions, follow up and referral plans. Demonstrated understanding of instructions, follow-up care, 04:45 Patient left the ED. nw1 Signatures: Dispatcher [employer] EDKate Magallon PA-C PA-C sb4 Bam Bonds MD MD rt Mica Frank, RN RN km8 Kennedy Choi RN RN la4 Rhiannon Walsh, RN RN nw1
[2023-03-22 05:11] VITALS: TEMP 98
[2023-03-22 05:13] VITALS: BP 150/83; O2SAT 98
--- NOTE | 2023-03-22 21:00 | RAD REPORT ---
EXAM DESCRIPTION: CLINICAL HISTORY: DYSPNEA COMPARISON: 12/09/2022. TECHNIQUE: XR CHEST 1 VIEW 03/22/2023 3:17 AM SALES PROJECT MANAGER FINDINGS: Cardiac silhouette is normal in size. Lungs are clear without consolidation, atelectasis, mass or edema. There is no pleural effusion. There is no pneumothorax. There are no acute osseous fin dings. IMPRESSION: Clear lungs. Electronically signed by: Eliot Torres MD 03/22/2023 04:33 AM SALES PROJECT MANAGER Due to temporary technical issues with the PACS/Fluency reporting system, reports are being signed by the in house radiologists without review as a courtesy to insure prompt reporting. The interpreting radiologist is fully responsible for the content of the report.
--- NOTE | 2023-03-25 13:40 | EKG ---
Test Date: 2023-03-22 Test Time: 03:31:16 Window Framer: MENDEL MEASUREMENT RESULTS: Intervals: Rate: 84 NC: 120 QRSD: 90 QT: 392 QTc: 463 Drain: P: 61 NC: 120 QRS: -17 T: 114 INTERPRETIVE STATEMENTS: Normal sinus rhythm Prolonged QT Abnormal ECG Compared to ECG 12/10/2022 01:04:32 Prolonged QT interval now present Left-axis deviation no longer present Incomplete right bundle-branch block no longer present Electronically Signed On 03-25-23 13:30:47 PROTECTIVE SERVICES SOCIAL WORKER by Mason Jasso
== END 2023-03-22 04:45 | disposition home or self-care (01) ==
LOC: ER 03:00
DX: R06.00 Dyspnea, unspecified (principal); E11.22 Type 2 diabetes mellitus with diabetic chronic kidney disease; I13.2 Hypertensive heart and chronic kidney disease with heart failure and with stage 5 chronic kidney disease, or end stage renal disease; I50.9 Heart failure, unspecified; N18.6 End stage renal disease; Z99.2 Dependence on renal dialysis
CPT/HCPCS: 36415; 71045; 80048; 80076; 84484; 85025; 93005; 99284

== ENCOUNTER 2023-03-30 20:56 | Emergency (ER) | payer BC, OTHER ==
[2023-03-30 21:59] LABS: Absolute Lymphocytes (CBC) 2.3 K/uL (0.7-4.9); Hematocrit 26.4 % (39.6-49.0); Lymphocytes % 22.9 % (15.3-44.8); MCV 89.7 fL (80-100); MPV 7.5 fL (7.6-11.3); Platelets 226 thou/uL (152-406); RBC Red Blood Cell Count 2.94 M/uL (4.33-5.43)
[2023-03-30 22:01] LABS: Protime INR 0.96
[2023-03-30 22:18] LABS: Magnesium 1.7 mg/dL (1.6-2.4); Potassium 4.5 mEq/L (3.5-5.1)
--- NOTE | 2023-03-30 22:31 | RAD REPORT ---
EXAM DESCRIPTION: US - Extrem Venous W Compress Clement - 03/30/2023 10:19 pm CLINICAL HISTORY: PAIN Bilateral leg edema and swelling. COMPARISON: <Comparisons> TECHNIQUE: Real-time sonographic interrogation of the left and right lower extremity deep venous sys tems was performed. FINDINGS: Normal compressibility, flow augmentation, phasic flow and spontaneous flow is identified in both the left and right lower extremity deep venous systems. IMPRESSION: No sonographic evidence of left or right lower extremity deep venous thrombosis.
--- NOTE | 2023-03-30 22:33 | RAD REPORT ---
EXAM DESCRIPTION: US - Lower Extremity Arterial Bilat - 03/30/2023 10:19 pm CLINICAL HISTORY: PAIN COMPARISON: Foot Right 2 View dated 12/09/2022 TECHNIQUE: Bilateral lower extremity arterial Doppler examination was performed with waveform tracin g and velocity measurements. FINDINGS: Triphasic waveforms are seen throughout both lower extremity arterial systems to the level of the pop liteal arteries. Distal vessels below the level of the knee bilaterally are largely monophasic. No complete occlusion seen. IMPRESSION: Mild to moderate distal peripheral vascular disease is present. This pattern is commonly seen in diabetics. No complete occlusion evident.
--- NOTE | 2023-03-31 00:01 | EDPHYS ---
Physician Documentation [facility] Name: Chava Pate Age: 48 yrs Sex: Male : 1975 Arrival Date: 03/30/2023 Time: 20:56 Bed 12 Private MD: ED Physician Bam Bonds HPI: 03/30 21:35 This 48 yrs old Male presents to ER via Ambulatory with complaints of Leg cp Swelling, Feet Swelling. 21:35 The patient presents with pain, that is acute, swelling, tenderness. The complaints cp affect the right foot and right leg. 21:35 Context: resulted from an unknown cause, the patient can fully bear weight, the patient cp is able to ambulate, with mild difficulty. Onset: The symptoms/episode began/occurred 2 week(s) ago. Associated signs and symptoms: Pertinent positives: numbness, swelling, pain, Pertinent negatives fever, warmth. Treatment prior to arrival includes: no previous treatment. Historical: - Allergies: 21:33 dialysis on , , ; pf1 - PMHx: 21:33 Congestive heart failure; ESRD; Hypertension; IDDM; neuropathy; pf1 - PSHx: 21:33 Left arm fistula; pf1 - Immunization history:: Adult Immunizations up to date, Client reports receiving the 2nd dose of the Covid vaccine, Moderna Last tetanus immunization: < 5 years ago Flu vaccine is up to date. - Social history:: Smoking status: Patient denies any tobacco usage or history of. Patient uses alcohol, occasionally. Patient/guardian denies using street drugs. ROS: 21:40 MS/extremity: Positive for pain, paresthesias, swelling, tenderness, of the right foot cp and right leg, Negative for injury or acute deformity, decreased range of motion, 21:40 Eyes: Negative for injury, pain, redness, and discharge, cp 21:40 Constitutional: Negative for body aches, chills, fever, poor PO intake, 21:40 ENT: Negative for drainage from ear(s), ear pain, sore throat, difficulty swallowing, difficulty handling secretions, 21:40 Cardiovascular: Negative for chest pain, palpitations, 21:40 Respiratory: Negative for cough, shortness of breath, wheezing, 21:40 Abdomen/GI: Negative for abdominal pain, nausea, vomiting, and diarrhea, 21:40 Back: Negative for pain at rest, pain with movement, 21:40 Neuro: Positive for numbness, of the right foot and right leg, Negative for altered mental status, dizziness, headache, weakness, 21:40 All other systems are negative, Exam: 21:45 Constitutional: The patient appears in no acute distress, alert, awake, cp non-diaphoretic, non-toxic, well developed, well nourished, 21:45 Head/Face: Normocephalic, atraumatic. cp 21:45 Eyes: Periorbital structures: appear normal, Conjunctiva: normal, no exudate, no injection, Sclera: no appreciated abnormality, Lids and lashes: appear normal, bilaterally, 21:45 ENT: External ear(s): are unremarkable, Nose: is normal, Mouth: Lips: moist, Oral mucosa: pink and intact, moist, Posterior pharynx: Airway: no evidence of obstruction, patent, 21:45 Chest/axilla: Inspection: normal, 21:45 Cardiovascular: Rate: normal, Rhythm: regular, 21:45 Respiratory: the patient does not display signs of respiratory distress, Respirations: normal, no use of accessory muscles, no retractions, labored breathing, is not present, Breath sounds: are clear throughout, no decreased breath sounds, no stridor, no wheezing, 21:45 Abdomen/GI: Inspection: abdomen appears normal, Palpation: abdomen is soft and non-tender, in all quadrants, 21:45 Back: pain, is absent, ROM is normal, 21:45 Musculoskeletal/extremity: Extremities: grossly normal except: noted in the right foot: tenderness and pain to plantar surface of right foot, very mild swelling noted of right foot and right lower leg, no erythema, superficial wound noted proximal to nail of right great toe with no erythema/drainage/swelling, 21:45 Skin: cellulitis, is not appreciated, no rash present. 21:45 Neuro: Orientation: to person, place \T\ time. Mentation: is normal, Motor: moves all fours, strength is normal, 22:00 ECG was reviewed by the Attending Physician. cp Vital Signs: 21:13 BP 153 / 79; Pulse 86; Resp 18; Temp 98; Pulse Ox 98% on R/A; Weight 104.33 kg; Height pf1 5 ft. 8 in. ; Pain 7/10; 21:13 Body Mass Index 34.97 (104.33 kg, 172.72 cm) pf1 21:13 Pain Scale: Adult pf1 MDM: 21:20 Patient medically screened. 03/31 00:00 Data reviewed: vital signs, nurses notes, lab test result(s), EKG, radiologic studies, cp ultrasound, and as a result, I will discharge patient. 00:00 I considered the following discharge prescriptions or medication management in the emergency department Medications were administered in the Emergency Department. See MAR. Independent interpretation of the following test(s) in the Emergency Department EKG: See my EKG interpretation above. Care significantly affected by the following chronic conditions: Diabetes, Hypertension, Congestive Heart Failure, Chronic Kidney Disease. Counseling: I had a detailed discussion with the patient and/or guardian regarding the historical points, exam findings, and any diagnostic results supporting the discharge/admit diagnosis, lab results, radiology results, to return to the emergency department if symptoms worsen or persist or if there are any questions or concerns that arise at home. ED course: discussed results of today's testing. US negative for DVT and arterial occlusion. Recommend elevate, compression stockings and f/u with pcp. 03/30 21:30 Order name: Basic Metabolic Panel; Complete Time: 22:52 03/30 22:52 Interpretation: Normal except: NA 133; GLUC 218; BUN 56; CRE 7.03; GFR 9; CA 7.3. 03/30 21:30 Order name: CBC with Diff; Complete Time: 22:52 03/30 22:52 Interpretation: Normal except: RBC 2.94; HGB 9.3; HCT 26.4; MPV 7.5. 03/30 21:30 Order name: Magnesium; Complete Time: 22:52 03/30 21:30 Order name: PT-INR; Complete Time: 22:52 03/30 21:30 Order name: US Extremity Venous W Compression Clement; Complete Time: 22:52 03/30 21:30 Order name: US Lower Extremity Arterial Bilateral; Complete Time: 22:52 03/30 22:54 Order name: XRAY Foot RIGHT 3 View; Complete Time: 23:56 03/30 23:56 Interpretation: Report reviewed. 03/30 21:30 Order name: Cardiac monitoring; Complete Time: 22:40 03/30 21:30 Order name: EKG - Nurse/Tech; Complete Time: 21:55 cp 03/30 21:30 Order name: IV Saline Lock; Complete Time: 21:44 cp 03/30 21:30 Order name: Labs collected and sent; Complete Time: 21:44 cp 03/30 21:30 Order name: O2 Per Protocol; Complete Time: 21:44 cp 03/30 21:30 Order name: O2 Sat Monitoring; Complete Time: 21:44 cp EC/10 22:00 Rate is 82 beats/min. Rhythm is regular. VT interval is normal. QRS interval is normal. cp QT interval is normal. T waves are Inverted in lead aVR. Interpreted by me. Reviewed by me. Administered Medications: No medications were administered Disposition: 03/31 00:56 Co-signature as Attending Physician, Bam Bonds MD I reviewed the patient's care rt provided by the Advanced Practice Provider and agree with the diagnosis and treatment plan. Disposition Summary: 03/31/23 00:00 Discharge Ordered Notes: Location: Home cp Problem: new cp Symptoms: have improved cp Condition: Stable cp Diagnosis - Pain in right foot cp - Pain in right leg cp - Localized edema cp Followup: cp - With: Private Physician - When: 2 - 3 days - Reason: Recheck today's complaints Discharge Instructions: - Discharge Summary Sheet cp - Musculoskeletal Pain cp - Foot Pain cp - Peripheral Edema cp Forms: - Medication Reconciliation Form cp - Thank You Letter cp - Antibiotic Education cp - Prescription Opioid Use cp - Patient Portal Instructions cp - Leadership Thank You Letter cp Prescriptions: - Tramadol 50 mg Oral Tablet - take 1 tablet ORAL route every 8 hours as needed; 12 tablet; Refills: 0, cp Product Selection Permitted Signatures: Dispatcher [employer] EDNJ Elijah Voss PA PA cp Bam Bonds MD MD rt Dora Harrison RN RN pf1 Corrections: (The following items were deleted from the chart) 03/30 21:38 21:33 Allergies: No Known Allergies; pf1 pf1
--- NOTE | 2023-03-31 00:01 | ER ---
Nurse's Notes [facility] Name: Chava Pate Age: 48 yrs Sex: Male : 1975 Arrival Date: 03/30/2023 Time: 20:56 Bed 12 Private MD: Diagnosis: Pain in right foot;Pain in right leg;Localized edema Presentation: 03/30 21:13 Chief complaint: Patient states: right leg and right foot pain of 7 with swelling, me1 onset 2 weeks. Patient stated has an appointment to follow up with a phlebotomy services technician on April 04, 2023. Patient stated has a sore/calculus to right medial metatarsal region. 21:13 Coronavirus screen: Vaccine status: Patient reports receiving the 2nd dose of the covid pf1 vaccine. Client denies travel out of the [place] in the last 14 days. At this time, the client does not indicate any symptoms associated with coronavirus-19. Ebola Screen: Patient negative for fever greater than or equal to 101.5 degrees Fahrenheit, and additional compatible Ebola Virus Disease symptoms. Initial Sepsis Screen: Does the patient meet any 2 criteria? No. Patient's initial sepsis screen is negative. Does the patient have a suspected source of infection? No. Patient's initial sepsis screen is negative. Risk Assessment: Do you want to hurt yourself or someone else? Patient reports no desire to harm self or others. 21:13 Method Of Arrival: Ambulatory pf1 21:13 Acuity: EDINSON 3 pf1 Historical: - Allergies: 21:33 dialysis on , , ; pf1 - PMHx: 21:33 Congestive heart failure; ESRD; Hypertension; IDDM; neuropathy; pf1 - PSHx: 21:33 Left arm fistula; pf1 - Immunization history:: Adult Immunizations up to date, Client reports receiving the 2nd dose of the Covid vaccine, Moderna Last tetanus immunization: < 5 years ago Flu vaccine is up to date. - Social history:: Smoking status: Patient denies any tobacco usage or history of. Patient uses alcohol, occasionally. Patient/guardian denies using street drugs. Screenin:47 [facility] ED Fall Risk Assessment (Adult) History of falling in the last 3 months, me1 including since admission No falls in past 3 months (0 pts) Confusion or Disorientation No (0 pts) Intoxicated or Sedated No (0 pts) Impaired Gait No (0 pts) Mobility Assist Device Used No (0 pt) Altered Elimination No (0 pt) Score/Fall Risk Level 0 - 2 = Low Risk Maintained a safe environment, Provided non-skid footwear, Hourly rounding (assess needs \T\ fall precautionary measures) done. Abuse screen: Denies threats or abuse. Nutritional screening: No deficits noted. Tuberculosis screening: No symptoms or risk factors identified. Assessment: 22:47 General: Appears uncomfortable, well groomed, well developed, well nourished, Behavior me1 is calm, cooperative, appropriate for age, Reports right leg and right foot pain of 7 with swelling, onset 2 weeks. Patient stated has an appointment to follow up with a phlebotomy services technician on April 04, 2023. Patient stated has a sore/calculus to right medial metatarsal region. Pain: Complains of pain in ball of right foot Pain does not radiate. Pain currently is 7 out of 10 on a pain scale. Quality of pain is described as tender, Pain began gradually, Is continuous. Neuro: Level of Consciousness is awake, alert, obeys commands, Oriented to person, place, time, situation, Appropriate for age. Cardiovascular: Capillary refill < 3 seconds Patient's skin is warm and dry. Respiratory: Airway is patent Respiratory effort is even, unlabored, Respiratory pattern is regular, symmetrical. Derm: has a sore/calculus to right medial metatarsal region. Vital Signs: 21:13 BP 153 / 79; Pulse 86; Resp 18; Temp 98; Pulse Ox 98% on R/A; Weight 104.33 kg; Height pf1 5 ft. 8 in. ; Pain 7/10; 21:13 Body Mass Index 34.97 (104.33 kg, 172.72 cm) pf1 21:13 Pain Scale: Adult pf1 ED Course: 21:01 Patient arrived in ED. gm2 21:01 Elijah Voss PA is PHCP. cp 21:01 Bam Bonds MD is Attending Physician. cp 21:17 Nandini Diamond, MARCELA is Primary Nurse. me1 21:33 Triage completed. pf1 21:43 Inserted saline lock: 20 gauge in right forearm, using aseptic technique. me1 21:44 Basic Metabolic Panel Sent. me1 21:44 CBC with Diff Sent. me1 21:44 Magnesium Sent. me1 21:44 PT-INR Sent. me1 22:21 US Extremity Venous W Compression Clement In Process Unspecified. EDMS 22:21 US Lower Extremity Arterial Bilateral In Process Unspecified. EDMS 22:47 No provider procedures requiring assistance completed. me1 22:47 Patient has correct armband on for positive identification. Bed in low position. Call me1 light in reach. Side rails up X 1. Provided Education on: POC. Verbalized understanding. . 22:50 Arm band placed on right wrist. tm6 23:35 XRAY Foot RIGHT 3 View In Process Unspecified. EDMS 03/31 00:22 IV discontinued, intact, bleeding controlled, No redness/swelling at site. Pressure tm6 dressing applied. Administered Medications: No medications were administered Medication: 03/30 22:47 VIS not applicable for this client. me1 Outcome: 03/31 00:00 Discharge ordered by MD. cp 00:21 Discharged to home ambulatory, tm6 00:21 Condition: stable 00:21 Discharge instructions given to patient, Instructed on discharge instructions, follow up and referral plans. medication usage, Demonstrated understanding of instructions, follow-up care, medications, Prescriptions given X 1, 00:22 Patient left the ED. tm6 Signatures: Dispatcher [employer] EDIA Elijah Voss PA PA cp Finley, Pamala, MARCELA RN pf1 Nandini Diamond RN RN me1 Missy Curiel gm2 Heber Mckee RN RN tm6 Corrections: (The following items were deleted from the chart) 03/30 21:38 21:33 Allergies: No Known Allergies; pf1 pf1 :47 21:13 Chief complaint: Patient states: right leg and right foot pain of 7 with me1 swelling, onset 2 weeks. Patient stated has an appointment to follow up with a phlebotomy services technician on April 04, 2023. Patient stated has a sore/calculus to right medial metatarsal region. pf1
[2023-03-31 00:30] VITALS: BP 153/79; TEMP 98; O2SAT 98
--- NOTE | 2023-04-01 13:47 | EKG ---
Test Date: 2023-03-30 Test Time: 21:51:39 Claim Investigator: NICOLE MEASUREMENT RESULTS: Intervals: Rate: 82 OH: 112 QRSD: 92 QT: 408 QTc: 476 Galvin: P: 61 OH: 112 QRS: -32 T: 33 INTERPRETIVE STATEMENTS: Normal sinus rhythm Left axis deviation Abnormal ECG Compared to ECG 03/22/2023 03:31:16 Left-axis deviation now present Prolonged QT interval no longer present Electronically Signed On 04-01-23 13:41:10 FINISHER MAP AND CHART by Mason Jasso
--- NOTE | 2023-04-01 20:44 | RAD REPORT ---
EXAM DESCRIPTION: RAD - Foot Right 3 View - 03/30/2023 11:33 pm CLINICAL HISTORY: The patient is 48 years old and is Male; PAIN Bed Name: 12 TECHNIQUE: Frontal, lateral and oblique views of the right foot. COMPARISON: 12/09/2022 right foot radiographs FINDINGS: BONES/JOINTS: Hammertoe appearance of the 1st through 5th digits. Moderate dorsal and large plantar heel spurs noted. Pes planus deformity. SOFT TISSUES: Redemonstrated calcification within the posterior distal right leg, presumably within or adjacent to the Achilles tendon. VASCULATURE: Vascular calcifications. IMPRESSION: Hammertoe appearance of the 1st through 5th digits with pes planus configuration of the foot. No acute osseous abnormality. Electronically signed by: Romaine Gutierrez MD 03/30/2023 11:45 PM BOX FOLDING MACHINE OPERATOR Due to temporary technical issues with the PACS/Fluency reporting system, reports are being signed by the in house radiologists without review as a courtesy to insure prompt reporting. The interpreting radiologist is fully responsible for the content of the report.
== END 2023-03-31 00:22 | disposition home or self-care (01) ==
LOC: ER 20:56
DX: M79.671 Pain in right foot (principal); M79.604 Pain in right leg; R60.0 Localized edema; R20.0 Anesthesia of skin; E11.22 Type 2 diabetes mellitus with diabetic chronic kidney disease; I13.2 Hypertensive heart and chronic kidney disease with heart failure and with stage 5 chronic kidney disease, or end stage renal disease; I50.9 Heart failure, unspecified; N18.6 End stage renal disease; Z99.2 Dependence on renal dialysis
CPT/HCPCS: 36415; 80048; 83735; 85025; 85610; 93005; 93925; 93970; 99284

== ENCOUNTER 2023-05-10 06:08 | Inpatient (IN) | payer BC, OTHER ==
[2023-05-10] MEDS ORDERED: NA CHLORIDE 0.9% 500 ML ONE (07:31)
[2023-05-10] MEDS ORDERED: CEFEPIME 1 GM/VIAL ONE (07:31)
[2023-05-10 07:36] LABS: Absolute Lymphocytes (CBC) 0.7 K/uL (0.7-4.9); Hematocrit 27.1 % (39.6-49.0); Lymphocytes % 9.3 % (15.3-44.8); MCV 89.4 fL (80-100); MPV 7.7 fL (7.6-11.3); Platelets 189 thou/uL (152-406); RBC Red Blood Cell Count 3.03 M/uL (4.33-5.43)
[2023-05-10 07:42] LABS: Protime INR 1.19
[2023-05-10 07:58] LABS: Bilirubin Direct 0.1 mg/dL (0-0.2); Bilirubin Indirect, Calculated 0.4 mg/dL (0.2-0.8); Bilirubin Total 0.5 mg/dL (0.2-1.0); Magnesium 1.3 mg/dL (1.6-2.4); Potassium 4.5 mEq/L (3.5-5.1); Protein, Total 6.7 g/dL (6.4-8.2)
[2023-05-10 08:00] LABS: SARS-CoV-2 Antigen Rapid Res Negative (Negative)
--- NOTE | 2023-05-10 08:20 | RAD REPORT ---
[facility] CLINICAL HISTORY: FEVER COMPARISON: Chest Single View dated 03/22/2023; Chest Single View dated 12/09/2022; Chest Single View dated 09/29/2022; Chest Single View dated 08/07/2022 TECHNIQUE: Portable AP view of the chest. FINDINGS: The lungs are clear. Decreased inspiratory effort limits evaluation. No pneumothorax or ef fusion. The cardiomediastinal contours are unremarkable. IMPRESSION: No acute cardiopulmonary process.
--- NOTE | 2023-05-10 08:31 | ER ---
Nurse's Notes [facility] Name: Chava Pate Age: 48 yrs Sex: Male : 1975 Arrival Date: 05/10/2023 Time: 06:08 Bed 14 Private MD: Diagnosis: Fever, unspecified;Sepsis, unspecified organism Presentation: 05/10 06:23 Chief complaint: Patient states: "I went to Dialysis this morning and they said I had a jw7 temperature so the Field Human Resources Manager told me to come to the ER; I was not able to complete dialysis this morning". Coronavirus screen: At this time, the client does not indicate any symptoms associated with coronavirus-19. Ebola Screen: No symptoms or risks identified at this time. Initial Sepsis Screen: Does the patient meet any 2 criteria? Temp <36.0*C (96.8*F)) or > 38.3*C (100.9*F). HR > 90 bpm. Yes Does the patient have a suspected source of infection? No. Patient's initial sepsis screen is negative. Risk Assessment: Do you want to hurt yourself or someone else? Patient reports no desire to harm self or others. Onset of symptoms was May 10, 2023. 06:23 Method Of Arrival: Wheelchair jw7 06:23 Acuity: EDINSON 3 jw7 Triage Assessment: 06:20 General: Appears in no apparent distress. comfortable, Behavior is calm, cooperative. jw7 Pain: Denies pain. EENT: No deficits noted. No signs and/or symptoms were reported regarding the EENT system. Neuro: Level of Consciousness is awake, alert, obeys commands, Oriented to person, place, time, situation. Cardiovascular: Capillary refill < 3 seconds Clubbing of nail beds is absent JVD is absent Patient's skin is warm and dry. 06:20 Respiratory: Reports shortness of breath cough that is non-productive, dry, Airway is jw7 patent Trachea midline Respiratory effort is even, unlabored, Respiratory pattern is regular, symmetrical, Onset: The symptoms/episode began/occurred suddenly, the patient has mild shortness of breath. GI: Abdomen is round non-distended. : Reports Dialysis, and ESRD. Derm: Skin is intact, is healthy with good turgor, Skin is dry, Skin is normal, Skin temperature is hot. Musculoskeletal: Circulation, motion, and sensation intact. Range of motion: intact in all extremities. Historical: - Allergies: 06:31 No Known Allergies; jw7 - Home Meds: 06:31 carvedilol oral [Active]; losartan oral [Active]; Ambien Oral [Active]; Lasix Oral jw7 [Active]; gabapentin oral [Active]; penicillin (Syphilis) [Active]; - PMHx: 06:31 Congestive heart failure; ESRD; Hypertension; IDDM; neuropathy; jw7 - PSHx: 06:31 Left arm fistula; jw7 - Immunization history:: Adult Immunizations up to date. - Social history:: Smoking status: Patient denies any tobacco usage or history of. Screenin:52 [facility] ED Fall Risk Assessment (Adult) History of falling in the last 3 months, jw7 including since admission No falls in past 3 months (0 pts) Score/Fall Risk Level 0 - 2 = Low Risk Oriented to surroundings, Maintained a safe environment, Educated pt \\T\\ family on fall prevention, incl call for assistance when getting out of bed. Abuse screen: Denies threats or abuse. Denies injuries from another. Nutritional screening: No deficits noted. Tuberculosis screening: No symptoms or risk factors identified. Assessment: 06:25 General: see triage assessment. jw7 Vital Signs: 06:23 BP 157 / 80; Pulse 107; Resp 20 S; Temp 102.2(O); Pulse Ox 97% on R/A; Weight 108.86 jw7 kg; Height 5 ft. 7 in. ; Pain 0/10; 07:52 BP 161 / 83; Pulse 97; Resp 17; Pulse Ox 99% on R/A; ko1 09:42 BP 147 / 80; Pulse 97; Resp 15; Temp 99(O); Pulse Ox 98% ; ko1 06:23 Body Mass Index 37.59 (108.86 kg, 170.18 cm) jw7 06:23 Pain Scale: Adult jw7 ED Course: 06:09 Patient arrived in ED. jj6 06:13 Lilibeth Conrad, RN is Primary Nurse. jw7 06:14 Ean Parisi MD is Attending Physician. sp3 06:31 Triage completed. jw7 06:52 Patient has correct armband on for positive identification. Bed in low position. Call [facility] light in reach. 06:53 Arm band placed on. jw7 06:56 XRAY Chest (1 view) In Process Unspecified. EDMS 07:04 Attending Physician role handed off by Ean Parisi MD ec2 07:04 Vince Acevedo MD is Attending Physician. ec2 07:11 SARS RAPID Sent. ko1 07:11 Flu Sent. ko1 07:15 No provider procedures requiring assistance completed. Inserted saline lock: 20 gauge ko1 in right antecubital area, using aseptic technique. Blood collected. 07:29 Blood Culture Adult (2) Sent. ko1 07:29 Lactate w/ 2H reflex if indic. Sent. ko1 07:29 Basic Metabolic Panel Sent. ko1 07:29 CBC with Diff Sent. ko1 07:29 LFT's Sent. ko1 07:29 Magnesium Sent. ko1 07:29 NT PRO-BNP Sent. ko1 07:29 PT-INR Sent. ko1 07:29 Troponin HS Sent. ko1 08:30 Dudley Ruiz MD is Hospitalizing Provider. ec2 08:36 Hospitalizing Provider role handed off by Dudley Ruiz MD ec2 08:36 Mckayla Marion MD is Hospitalizing Provider. ec2 11:33 UAM Sent. ko1 12:58 Provided Education on: na. ko1 12:58 Patient admitted, IV remains in place. ko1 Administered Medications: 07:36 Drug: NS 0.9% IV 500 ml IV at bolus once Route: IV; Rate: bolus; Site: right ko1 antecubital; 09:43 Follow up: Response: No adverse reaction; IV Status: Completed infusion; IV Intake: ko1 500ml 07:48 Drug: Cefepime IVPB 1 grams IVPB at 200 ml/hr once over 30 mins; (mix in NS 100 mL) ko1 Route: IVPB; Rate: 200 ml/hr; Infused Over: 30 mins; Site: right antecubital; 09:43 Follow up: Response: No adverse reaction; IV Status: Completed infusion; IV Intake: ko1 100ml 08:20 Not Given (patient [facility] 1gm tylenol at [facility] [id number] mg PO once ko1 Medication: 07:52 VIS not applicable for this client. ko1 Intake: 09:43 IV: 100ml; Total: 100ml. ko1 09:43 IV: 500ml; Total: 600ml. ko1 Outcome: 08:31 Decision to Hospitalize by Provider. ec2 12:58 Admitted to Tele accompanied by tech, via wheelchair, room 225, with chart, Report ko1 called to MARCELA Brito 12:58 Condition: stable 12:58 Instructed on the need for admit, 13:09 Patient left the ED. ko1 Signatures: Dispatcher [employer] Ean Martin MD MD sp3 Iman Heath6 Lilibeth Conrad RN RN jw7 Grace Egan RN RN ko1 Vince Acevedo MD MD ec2 Corrections: (The following items were deleted from the chart) 06:50 06:31 Allergies: dialysis on Tues; jw7 jw7 06:50 06:31 Allergies: dialysis on Tues; jw7 jw7 12:46 09:42 BP 147 / 80; Pulse 97bpm; Resp 15bpm; Pulse Ox 98%; ko1 ko1
--- NOTE | 2023-05-10 08:31 | EDPHYS ---
Physician Documentation [facility] Name: Chava Pate Age: 48 yrs Sex: Male : 1975 Arrival Date: 05/10/2023 Time: 06:08 Bed 14 Private MD: ED Physician Vince Acevedo HPI: 05/10 07:09 This 48 yrs old Male presents to ER via Wheelchair with complaints of ESRD, ec2 Fever, Dizziness, Shortness Of Breath. 07:09 Patient arrives today for URI signs and symptoms. Patient reports that he has ESRD, ec2 went to dialysis this morning, was told he had a fever and come to the emergency department. Patient reports that he has been having cough and congestion. Denies any nausea or vomiting, denies diarrhea symptoms. Does report occasional urine production. Reports no abdominal pain.. Historical: - Allergies: 06:31 No Known Allergies; jw7 - Home Meds: 06:31 carvedilol oral [Active]; losartan oral [Active]; Ambien Oral [Active]; Lasix Oral jw7 [Active]; gabapentin oral [Active]; penicillin (Syphilis) [Active]; - PMHx: 06:31 Congestive heart failure; ESRD; Hypertension; IDDM; neuropathy; jw7 - PSHx: 06:31 Left arm fistula; jw7 - Immunization history:: Adult Immunizations up to date. - Social history:: Smoking status: Patient denies any tobacco usage or history of. ROS: 07:10 Constitutional: as per hpi ec2 Exam: 07:10 Constitutional: GEN: NAD Head: atraumatic Eyes: EOMI Ears: External ears are ec2 normal. CV: Tachycardia LUNGS: no respiratory distress ABD: non-distended SKIN: no evidence of rashes MSK: no evidence of trauma NEURO: moves all extremities equally Vital Signs: 06:23 BP 157 / 80; Pulse 107; Resp 20 S; Temp 102.2(O); Pulse Ox 97% on R/A; Weight 108.86 jw7 kg; Height 5 ft. 7 in. ; Pain 0/10; 07:52 BP 161 / 83; Pulse 97; Resp 17; Pulse Ox 99% on R/A; ko1 09:42 BP 147 / 80; Pulse 97; Resp 15; Temp 99(O); Pulse Ox 98% ; ko1 06:23 Body Mass Index 37.59 (108.86 kg, 170.18 cm) jw7 06:23 Pain Scale: Adult jw7 MDM: 06:19 Patient medically screened. sp3 07:10 Data reviewed: vital signs. ED course: Patient arrives today for fever. Examination ec2 remarkable for well-appearing nontoxic individual is otherwise in no acute distress with a reassuring examination, with a slight fever as well as slight tachycardia. Will obtain a septic workup and further assess the patient. . 07:43 ED course: CBC shows slight anemia. . ec2 07:49 ED course: EKG independently reviewed and interpreted by me, shows normal sinus rhythm, ec2 rate 99, no acute ST segment elevations, nonconcerning intervals.. 07:59 ED course: Metabolic profile shows known renal dysfunction, no hyperkalemia identified. ec2 Reassuring liver profile, troponin is within normal ranges, BNP elevated at approximately 7000. . 08:34 ED course: Given fever and documented heart rate, concern for possible sepsis, possible ec2 bacteremia, empirically treated with cefepime. Will admit for continued observation.. 05/10 06:36 Order name: Basic Metabolic Panel; Complete Time: 07:59 sp3 05/10 06:36 Order name: CBC with Diff; Complete Time: 07:43 sp3 05/10 06:36 Order name: LFT's; Complete Time: 07:59 sp3 05/10 06:36 Order name: Magnesium; Complete Time: 07:59 sp3 05/10 06:36 Order name: NT PRO-BNP; Complete Time: 07:59 sp3 05/10 06:36 Order name: PT-INR; Complete Time: 07:43 05/10 06:36 Order name: Troponin HS; Complete Time: 07:59 sp05/10 06:36 Order name: Lactate w/ 2H reflex if indic.; Complete Time: 07:59 sp3 05/10 06:36 Order name: Flu; Complete Time: 08:19 sp3 05/10 06:36 Order name: SARS RAPID; Complete Time: 08:02 sp3 05/10 06:36 Order name: Blood Culture Adult (2) sp3 05/10 07:10 Order name: UAM ec2 05/10 11:38 Order name: NT PRO-BNP EDMS 05/10 11:38 Order name: T4 Free EDMS 05/10 12:24 Order name: Glucose, Ancillary Testing EDMS 05/10 06:36 Order name: XRAY Chest (1 view); Complete Time: 08:24 sp3 05/10 06:36 Order name: EKG; Complete Time: 06:37 sp3 05/10 06:36 Order name: Cardiac monitoring; Complete Time: 07:04 sp3 05/10 06:36 Order name: EKG - Nurse/Tech; Complete Time: 07:48 sp3 05/10 06:36 Order name: IV Saline Lock; Complete Time: 07:29 sp3 05/10 06:36 Order name: Labs collected and sent; Complete Time: 07:29 sp3 05/10 06:36 Order name: O2 Per Protocol; Complete Time: 07:04 sp3 05/10 06:36 Order name: O2 Sat Monitoring; Complete Time: 07:03 sp3 Administered Medications: 07:36 Drug: NS 0.9% IV 500 ml IV at bolus once Route: IV; Rate: bolus; Site: right ko1 antecubital; 09:43 Follow up: Response: No adverse reaction; IV Status: Completed infusion; IV Intake: ko1 500ml 07:48 Drug: Cefepime IVPB 1 grams IVPB at 200 ml/hr once over 30 mins; (mix in NS 100 mL) ko1 Route: IVPB; Rate: 200 ml/hr; Infused Over: 30 mins; Site: right antecubital; 09:43 Follow up: Response: No adverse reaction; IV Status: Completed infusion; IV Intake: ko1 100ml 08:20 Not Given (patient [facility] 1gm tylenol [facility]): [id number] mg PO once ko1 Disposition Summary: 05/10/23 08:31 Hospitalization Ordered Notes: Hospitalization Status: Inpatient Admission ec2 Location: Telemetry/MedSurg (Inpatient) ec2 Condition: Stable ec2 Problem: new ec2 Symptoms: have improved ec2 Bed/Room Type: Standard ec2 Provider: Mckayla Marion(05/10/23 08:36) ec2 Room Assignment: 225(05/10/23 12:36) eb Diagnosis - Fever, unspecified ec2 - Sepsis, unspecified organism ec2 Forms: - Medication Reconciliation Form ec2 - SBAR form ec2 - Leadership Thank You Letter ec2 Critical care time excluding procedures: 08:44 Critical care time: Bedside Care: 30 minutes, Consultation: 5 minutes. Total time: 35 ec2 minutes Signatures: Dispatcher [employer] Tirso Tejada, AEROSPACE QUALITY ENGINEER-C AEROSPACE QUALITY ENGINEER-Cla1 Donna Romero Setul, MD MD sp3 Lilibeth Conrad RN RN jw7 Grace Egan RN RN ko1 Vince Acevedo MD MD ec2 Corrections: (The following items were deleted from the chart) 06:50 06:31 Allergies: dialysis on Tues; jw7 jw7 06:50 06:31 Allergies: dialysis on Tues; jw7 jw7 08:36 08:31 Dudley Ruiz ec2 ec2 12:36 08:31 ec2 eb
[2023-05-10] MEDS ORDERED: ALBUTEROL 2.5 MG/3 ML NEB SOL NEB PRN (09:14)
[2023-05-10] MEDS ORDERED: ACETAMINOPHEN 500 MG TAB PO PRN (09:14)
[2023-05-10] MEDS ORDERED: MAGNESIUM SULFATE 1 gm IVPB 1 GM/100 ML BAG IV ONE ×3 (09:24→13:06)
[2023-05-10] MEDS ORDERED: SODIUM CHLORIDE 0.9% 10ML INJ IV PRN (09:24)
[2023-05-10] MEDS ORDERED: GLUCAGON 1 MG/VIAL IM PRN (09:29)
[2023-05-10] MEDS ORDERED: D50W 25 GM/50 ML SYRINGE IV PRN (09:29)
--- NOTE | 2023-05-10 09:37 | P.HP ---
Certification for Inpatient Patient admitted to: Inpatient With expected LOS: <2 Midnights Patient will require the following post-hospital care: None Practitioner: I am a practitioner with admitting privileges, knowledge of patient current condition, hospital course, and medical plan of care. Services: Services provided to patient in accordance with Admission requirements found in Title 42 Section 412.3 of the Code of Federal Regulations <Nate Maravilla - Last Filed: 05/10/23 09:46> Patient History Date of Service: 05/10/23 Reason for admission: Fever History of Present Illness: Mr. Mooney 48-year-old male patient with past medical history of end-stage renal failure on hemodialysis (TTS), type 2 diabetes insulin-dependent, diabetic neuropathy, hypertension and CHF presented to ER via wheelchair with complaints of fever and shortness of breath. Patient reports that patient went to dialysis this morning and on the personal ask him to go to the emergency room due to high fever. Associated symptoms of cough and congestion for 2 days. Patient denies any chest pain or discomfort. Patient denies abdominal pain, diarrhea nausea or vomiting. Reported sick contact-father with a upper respiratory infection at home. ED course vital signs blood pressure 157/80, pulse 107, respiration 20, temperature 102.2, pulse ox 97% on room air, weight 108.86 kg, height 5.7. Pain 0/10. EKG showing sinus tachycardia rate of 108/min, no acute ST segment elevations, nonconcerning intervals. Laboratory evaluationmetabolic panel shows elevated renal profile, reassuring liver profile, CBC showing anemia hemoglobin 9.4, hypomagnesemia magnesium 1.3, troponin within normal ranges, and BNP 6977. Chest x-ray negative. COVID testing negative. Patient was given normal saline 500 mL IV bolus, cefepime 1 g IV in the emergency room. Admitting the patient with a diagnosis of fever unspecified, end-stage renal failure, hypomagnesemia. Home medications list reviewed: Yes - Past Medical/Surgical History Diabetic: Yes -: DM II with Polyneuropathy -: HLD -: HTN -: ESRD/ CKD with Proteinura (Dr. Rojas) -: Diastolic CHF -: Left arm Fistula Psychosocial/ Personal History: Patient lives at home alone. - Family History Father -: Diabetes Mother -: Stroke - Social History Smoking Status: Never smoker Alcohol use: Yes CD- Drugs: No Caffeine use: No <MaravillaNate lagunas - Last Filed: 05/10/23 09:46> Date of Service: 05/10/23 <Mckayla Marion Rick - Last Filed: 05/10/23 11:56> Allergies No Known Allergies Allergy (Verified 02/26/23 07:01) Home Medications: Gabapentin [Neurontin*] 100 mg PO BID 30 Days #90 cap 09/26/21 Blood Sugar Diagnostic [Glucose Test Strip] 1 each MC 30 MIN BEFORE HS #100 strip 12/17/21 Diabetic Supplies,Miscell [Cequr Simplicity Engineering Patternmaker] 1 each MC DAILY 30 Days 12/17/21 Furosemide [Lasix*] 40 mg PO BIDL #60 tab 12/17/21 Insulin Glargine,Hum.rec.anlog [Semglee] 20 unit SQ BEDTIME #10 ml 12/17/21 Lancets/Blood Glucose Strips [[employer]Tight [employer]ji Lancet 30G-Gluc Tst Strp] 1 each MC 30 MIN BEFORE HS #100 strip 12/17/21 Amlodipine [Norvasc*] 10 mg PO DAILY 30 Days #30 tab 02/18/22 Calcium Acetate [Phoslo*] 667 mg PO TIDWM 30 Days #90 tab 02/18/22 Omeprazole [Prilosec] 40 mg PO DAILY 30 Days #30 cap 02/18/22 Losartan Potassium [Cozaar*] 100 mg PO DAILY #60 tab 08/08/22 Aspirin [Aspirin EC 81 MG] 81 mg PO DAILY 01/29/23 Rivaroxaban [Xarelto] 2.5 mg PO DAILY 01/29/23 Sevelamer Carbonate [Renvela] 800 mg PO DAILY 01/29/23 carvediloL [Coreg*] 25 mg PO BID 01/29/23 Review of Systems 10-point ROS is otherwise unremarkable <Nate Maravilla - Last Filed: 05/10/23 09:46> Physical Examination - Physical Exam General: Alert, Oriented x3 HEENT: Atraumatic, Normocephalic Neck: 2+ carotid pulse no bruit Respiratory: Clear to auscultation bilaterally, Normal air movement Cardiovascular: No edema, Normal pulses Capillary refill: <2 Seconds Gastrointestinal: Normal bowel sounds, Soft and benign Musculoskeletal: No clubbing, No swelling Integumentary: No rashes, No breakdown Neurological: Normal speech, Normal tone, Normal affect - Studies Laboratory Data (last 24 hrs) 05/10/23 05/10/23 05/10/23 07:15 07:15 07:15 WBC 8.00 Hgb 9.4 L Hct 27.1 L Plt Count 189 PT 13.0 H INR 1.19 Sodium 135 L Potassium 4.5 BUN 63 H Creatinine 8.98 H Glucose 150 H Magnesium 1.3 L Total Bilirubin 0.5 AST 14 L ALT 27 Alkaline Phosphatase 87 Microbiology Data (last 24 hrs): 05/10/23 07:10 Nasopharnyx Influenza Type A Antigen Screen - Final 05/10/23 07:10 Nasopharnyx Influenza Type B Antigen Screen - Final <Nate Maravilla - Last Filed: 05/10/23 09:46> - Studies Laboratory Data (last 24 hrs) 05/10/23 05/10/23 05/10/23 07:15 07:15 07:15 WBC 8.00 Hgb 9.4 L Hct 27.1 L Plt Count 189 PT 13.0 H INR 1.19 Sodium 135 L Potassium 4.5 BUN 63 H Creatinine 8.98 H Glucose 150 H Magnesium 1.3 L Total Bilirubin 0.5 AST 14 L ALT 27 Alkaline Phosphatase 87 Microbiology Data (last 24 hrs): 05/10/23 07:10 Nasopharnyx Influenza Type A Antigen Screen - Final 05/10/23 07:10 Nasopharnyx Influenza Type B Antigen Screen - Final <Mckayla Marion - Last Filed: 05/10/23 11:56> Assessment and Plan - Problems (Diagnosis) (1) Fever, unknown origin Current Visit: Yes Status: Acute (2) CHF (congestive heart failure) Current Visit: Yes Status: Chronic Qualifiers: Heart failure type: combined systolic and diastolic (3) HTN (hypertension) Current Visit: Yes Status: Chronic Qualifiers: Hypertension type: secondary to other renal disorders Qualified Code(s): I15.1 - Hypertension secondary to other renal disorders (4) Neuropathy Current Visit: Yes Status: Acute (5) ESRD (end stage renal disease) on dialysis Current Visit: No Status: Acute (6) Diabetic neuropathy Onset Date: 10/20/17 Current Visit: No Status: Chronic Qualifiers: Diabetes mellitus type: type 2 Diabetes mellitus complication detail: diabetic polyneuropathy Qualified Code(s): E11.42 - Type 2 diabetes mellitus with diabetic polyneuropathy (7) Type 2 diabetes mellitus Current Visit: No Status: Chronic Qualifiers: Diabetes mellitus fpc insulin use: with intermediate manager use Diabetes mellitus complication status: with hyperglycemia Qualified Code(s): E11.65 - Type 2 diabetes mellitus with hyperglycemia; Z79.4 - tank terminal gauger (current) use of insulin (8) Anemia in CKD (chronic kidney disease) Current Visit: Yes Status: Acute Qualifiers: Chronic kidney disease stage: on chronic dialysis Qualified Code(s): N18.6 - End stage renal disease; D63.1 - Anemia in chronic kidney disease; Z99.2 - Dependence on renal dialysis - Plan Fever, unknown origin CHF (congestive heart failure), Diastolic CHF HTN (hypertension) Neuropathy ESRD (end stage renal disease) on dialysis Anemia in CKD Hypomagnesemia * Patient was sent to the emergency room with a high-grade fever from the dialysis center * Admitted the patient to the hospital started on IV antibiotics for possible bacteremia, COVID testing negative. viral swabs and chest x-ray negative * vital signs blood pressure 157/80, pulse 107, respiration 20, temperature 102.2, pulse ox 97% on room air * Anemia and CKDhemoglobin 9.4. . H&H stable. We will continue to monitor hemoglobin and transfuse if less than 7.0. * Hypomagnesemia magnesium level of 1.3, will monitor and replete. Further management per stock plan administrator. * CHF diastolic- BNP 6977. Patient denies shortness of breath, breathing normally on room air, no edema. Will continue to monitor * Hypertension--controlled on current antihypertensive will reconcile home medication and resume * ESRD-Patient on dialysis TTS. Nephrology notified. Will await further recommendations * Type 2 diabetes-NIDDM: Chronic uncontrolled, with hyperglycemia. Denies hypoglycemia, started on low-dose sliding scale insulin, blood sugar check before meals and at bedtime. Hypoglycemic precautions. CODE STATUSfull code Dietrenal diet DVT prophylaxisheparin Discharge Plan: Home Plan to discharge in: 24 Hours - Advance Directives Does patient have a Living Will: No Does patient have a Durable POA for Healthcare: No - Code Status/Comfort Care Code Status Assessed: Yes (full code) Code Status: Full Code Critical Care: No Time Spent Managing Pts Care (In Minutes): 55 (minutes) <Nate Maravilla - Last Filed: 05/10/23 09:46> - Plan Pt seen and examined. I agree with the note by the TSA SCREENER. Pt is a 48-yo male with past medical history of end-stage renal failure on hemodialysis (TTS), type 2 diabetes insulin-dependent, diabetic neuropathy, hypertension and CHF who presents with fever and shortness of breath. Pt could not do the dialysis due to the fever and he was sent to the ER for evaluation. Pt has an AV fistula on his left arm. Of note, pt reports that his father was recently sick. On admission, lab studies show anemia hemoglobin 9.4, hypomagnesemia magnesium 1.3, troponin within normal ranges, and BNP 6977. Chest x-ray is unremarkable. COVID test is negative. At bedside, pt is in NAD. ROS is significant for fever. A/P: Fever of unknown origin: Likely due to bacteremia. Will continue vanc and cefepime. ESRD: Will consult Nephrology. Hypomagnesemia: Mag is 1.3. Will replete and monitor. Elevated BNP: Likely due to ESRD. Anemia of chronic disease: Hgb is 9.4. Will monitor H/H. Transfuse when Hgb < 7. Obesity: Pt was advised to lose weight. Code: full <Mckayla Marion - Last Filed: 05/10/23 11:56>
[2023-05-10] MEDS ORDERED: VANCOMYCIN 1 GM in NA CHLORIDE 0.9% 250 ML IVPB SCH ×2 (10:00→13:00)
[2023-05-10] MEDS ORDERED: VANCOMYCIN 1 GM/VIAL ONE (10:04)
[2023-05-10] MEDS ORDERED: NA CHLORIDE 0.9% 250 ML ONE (10:04)
[2023-05-10] MEDS: INSULIN REGULAR (HUMAN) 100 UNIT/ML SQ SCH ×3 (11:30→21:00)
[2023-05-10 11:42] LABS: Specific Gravity 1.011 (1.005-1.030); Urine Bacteria None Seen /HPF (<20); Urine Bilirubin NEGATIVE (Negative); Urine Blood 1+ (Negative); Urine Clarity Clear (Clear); Urine Color Light-Yellow (Yellow); Urine Glucose 3+ (Negative); Urine Protein 3+ (Negative); Urine Urobilinogen Normal (Normal); Urine pH 6.5 (5.0-7.0)
[2023-05-10] MEDS: MAGNESIUM 50% 3 GM in NA CHLORIDE 0.9% 100 ML IV ONE ×2 (11:53→13:13)
--- NOTE | 2023-05-10 14:03 | CON ---
The patient seen in emergency room. In the emergency room hold in room 14 at [facility]. History Of Present Illness: He is a 48-year-old male who was at the dialysis unit today but was not dialyzed and sent to the hospital as he was having fevers, chills, and was looking unwell. In the ho spital, evaluated for flu and for COVID, found to be negative for COVID. Chest x-ray looked okay. H e is alert and awake comfortably, not having any fevers or chills. Blood cultures have been done and are pending. He has gotten cefepime and vancomycin. He has not gotten his dialysis. Discussed wit josie dialysis nurse. She is available to dialyze him today. We will order 2-1/2 hours of dialysis to k eep the patient stable and get his dialysis in for the day, so he does not need any further assistanc e over the weekend from the dialysis point of view. The patient is agreeable. Also discussed with braeden spivey nurse and also the team in the ER. The patient will be moving to room 225 shortly. Once he is up here, the dialysis nurse can likely dialyze him in the dialysis suite. Past Medical History: Significant for diabetes, for hypertension, end-stage renal disease, has been on dialysis for about a year, sees Dr. Rojas at the [facility] in [place]. Family History: Noncontributory at this point. Social History: Smoking, does not smoke. Does not drink alcohol. Does not use any drugs. Seems ve ry pleasant. Allergies: NKDA. Medications: In the chart and reviewed. Laboratory Data: Reviewed. Labs show WBC count of 8, hemoglobin 9.4, hematocrit 27.1, platelet coun t of 189. Chemistry shows sodium 135, potassium 4.5, chloride 104, bicarb is 23, BUN of 63, creatini ne is 8.98, glucose 150. AST and ALT are 14 and 27. Troponin I high series is 28, in normal limits. ProBNP is 6857. Albumin is 3.0. Blood cultures are currently pending. Influenza and COVID are ne gative from nasopharynx swab Assessment And Plan: The patient with end-stage renal disease, on dialysis, AV fistula on left arm w ith good thrill and bruit. Plan to dialyze today for 2-1/2 hours with about 2 L fluid removal. Bloo d pressure seems reasonable. Continue antibiotics. Blood cultures pending. Further treatment based on results of blood cultures. At this point, the patient is looking improved and stable. Further r ecommendations from the hospitalist team. Appreciate their assistance. We will replace electrolytes . We will monitor magnesium, may need some magnesium replacement as well. /MORENO Voice ID: [id number] Report ID: [id number]
[2023-05-10 14:42] VITALS: BMI 36.9
[2023-05-10 15:47] LABS: Hepatitis B Surface Ab - Quant 53.39 mIU/mL (<8.0); Hepatitis B surface AG Interp. Nonreactive (Nonreactive)
[2023-05-10] MEDS ORDERED: CEFEPIME 1 GM in NA CHLORIDE 0.9% 100 ML IV SCH (17:00)
[2023-05-10] MEDS: HEPARIN 5000 UNIT/ML 1 ML VIAL SQ SCH (17:58)
[2023-05-10] MEDS: carvediloL 12.5 MG TAB PO SCH (18:32)
[2023-05-11] MEDS: HEPARIN 5000 UNIT/ML 1 ML VIAL SQ SCH ×3 (01:17→16:28)
[2023-05-11 03:03] LABS: Absolute Lymphocytes (CBC) 1.1 K/uL (0.7-4.9); Hematocrit 26.9 % (39.6-49.0); Lymphocytes % 17.8 % (15.3-44.8); MCV 90.1 fL (80-100); MPV 7.9 fL (7.6-11.3); Platelets 170 thou/uL (152-406); RBC Red Blood Cell Count 2.98 M/uL (4.33-5.43)
[2023-05-11 03:34] LABS: Magnesium 1.6 mg/dL (1.6-2.4); Phosphorus 4.8 mg/dL (2.5-4.9); Potassium 4.2 mEq/L (3.5-5.1); Thyroid Stimulating Hormone 0.196 uIU/mL (0.358-3.740)
[2023-05-11 05:07] LABS: Blood Morphology Comment NOT SEEN (NOT SEEN); Platelet Estimate ADEQ
[2023-05-11] MEDS: carvediloL 12.5 MG TAB PO SCH ×2 (06:59→16:29)
[2023-05-11] MEDS ORDERED: Magnesium Sulfate 2gm IVPB 2 G/50 ML BAG IV ONE (07:15)
[2023-05-11] MEDS: INSULIN REGULAR (HUMAN) 100 UNIT/ML SQ SCH ×4 (07:30→21:00)
[2023-05-11] MEDS: SEVELAMER CARBONATE 800 MG TABLET PO SCH (08:15)
[2023-05-11] MEDS: LOSARTAN POTASSIUM 50 MG TABLET PO SCH (08:15)
[2023-05-11] MEDS: AMLODIPINE 10 MG TAB PO SCH (08:15)
[2023-05-11] MEDS: PANTOPRAZOLE 40 MG INJ IVP SCH (08:15)
--- NOTE | 2023-05-11 08:34 | P.PN ---
Subjective Date of Service: 05/11/23 Chief Complaint: Fever Physical Examination - Vital Signs Temperature: 99 F Blood Pressure: 145/78 Pulse: 89 Respirations: 18 Pulse Ox (%): 96 - Studies Microbiology Data (last 24 hrs): 05/10/23 07:10 Nasopharnyx Influenza Type A Antigen Screen - Final 05/10/23 07:10 Nasopharnyx Influenza Type B Antigen Screen - Final Assessment And Plan - Current Problems (Diagnosis) (1) Fever, unknown origin Current Visit: Yes Status: Acute (2) CHF (congestive heart failure) Current Visit: Yes Status: Chronic Qualifiers: Heart failure type: combined systolic and diastolic (3) HTN (hypertension) Current Visit: Yes Status: Chronic Qualifiers: Hypertension type: secondary to other renal disorders Qualified Code(s): I15.1 - Hypertension secondary to other renal disorders (4) Neuropathy Current Visit: Yes Status: Acute (5) ESRD (end stage renal disease) on dialysis Current Visit: No Status: Acute (6) Diabetic neuropathy Onset Date: 10/20/17 Current Visit: No Status: Chronic Qualifiers: Diabetes mellitus type: type 2 Diabetes mellitus complication detail: diabetic polyneuropathy Qualified Code(s): E11.42 - Type 2 diabetes mellitus with diabetic polyneuropathy (7) Type 2 diabetes mellitus Current Visit: No Status: Chronic Qualifiers: Diabetes mellitus superintendent container terminal insulin use: with chcf use Diabetes mellitus complication status: with hyperglycemia Qualified Code(s): E11.65 - Type 2 diabetes mellitus with hyperglycemia; Z79.4 - shelter (current) use of insulin (8) Anemia in CKD (chronic kidney disease) Current Visit: Yes Status: Acute Qualifiers: Chronic kidney disease stage: on chronic dialysis Qualified Code(s): N18.6 - End stage renal disease; D63.1 - Anemia in chronic kidney disease; Z99.2 - Dependence on renal dialysis - Plan Fever, unknown origin CHF (congestive heart failure), Diastolic CHF HTN (hypertension) Neuropathy ESRD (end stage renal disease) on dialysis Anemia in CKD Hypomagnesemia * Patient was sent to the emergency room with a high-grade fever from the dialysis center * Admitted the patient to the hospital started on IV antibiotics for possible bacteremia, COVID testing negative. viral swabs and chest x-ray negative * vital signs blood pressure 157/80, pulse 107, respiration 20, temperature 102.2, pulse ox 97% on room air * Anemia and CKDhemoglobin 9.4. . H&H stable. We will continue to monitor hemoglobin and transfuse if less than 7.0. * Hypomagnesemia magnesium level of 1.3, will monitor and replete. Further management per economic historian. * CHF diastolic- BNP 6977. Patient denies shortness of breath, breathing normally on room air, no edema. Will continue to monitor * Hypertension--controlled on current antihypertensive will reconcile home medication and resume * ESRD-Patient on dialysis TTS. Nephrology notified. Will await further recommendations * Type 2 diabetes-NIDDM: Chronic uncontrolled, with hyperglycemia. Denies hypoglycemia, started on low-dose sliding scale insulin, blood sugar check before meals and at bedtime. Hypoglycemic precautions. CODE STATUSfull code Dietrenal diet DVT prophylaxisheparin
[2023-05-11] MEDS ORDERED: CEFEPIME 1 GM in NA CHLORIDE 0.9% 100 ML IV SCH (09:00)
[2023-05-11] MEDS ORDERED: ASPIRIN EC 81 MG TAB PO SCH (09:00)
--- NOTE | 2023-05-11 11:14 | PN ---
Subjective: The patient is seen in room 225 at [facility]. The patient lo oking a whole lot better. He is alert, awake, talking in full sentences comfortably. Had his dialys is yesterday. Tolerated it well. Denies any nausea or vomiting. Blood cultures are still pending. Got his vancomycin and also got cefepime. Has tolerated antibiotics well except that he has had silvestre e diarrhea which is not of significant concern to him right now. The patient denies any other issues . His left arm fistula seems to be with a good bruit and thrill. Lab data from yesterday reviewed, that was predialysis. Medications: Reviewed. Assessment And Plan: Patient with question bacteremia, question sepsis or septic like condition. Scott timmons is alert, awake, comfortable now. Fever has resolved. He is looking comfortable. Blood cultu res are pending. He has got antibiotics. We will plan to get a BMP, CBC, and a vancomycin level in the morning. /MORENO Voice ID: [id number] Report ID: [id number]
--- NOTE | 2023-05-11 13:45 | P.PN ---
Subjective Date of Service: 05/11/23 Chief Complaint: Fever Subjective: No new changes, Doing well Patient is alert and oriented x 3 Resting in the bed NAD Denies any pain or shortness of breath c/o loose stools and incontinence of stools last night Vital stable <Nate Maravilla - Last Filed: 05/11/23 13:40> Date of Service: 05/12/23 <Mckayla Marion Rick - Last Filed: 05/12/23 19:52> Review of Systems 10-point ROS is otherwise unremarkable <Nate Maravilla - Last Filed: 05/11/23 13:40> Physical Examination - Vital Signs Temperature: 99 F Blood Pressure: 145/78 Pulse: 89 Respirations: 18 Pulse Ox (%): 96 - Physical Exam General: Alert, Oriented x3 HEENT: Atraumatic, Normocephalic Neck: Supple, 2+ carotid pulse no bruit Respiratory: Clear to auscultation bilaterally, Normal air movement Cardiovascular: No edema, Normal pulses, Normal S1 S2 Capillary refill: <2 Seconds Gastrointestinal: Normal bowel sounds, Soft and benign Musculoskeletal: No swelling, No contractures, No erythema Integumentary: No rashes, No breakdown, No significant lesion Neurological: Normal speech, Normal tone, Normal affect - Studies Microbiology Data (last 24 hrs): 05/10/23 07:10 Nasopharnyx Influenza Type A Antigen Screen - Final 05/10/23 07:10 Nasopharnyx Influenza Type B Antigen Screen - Final <Nate Maravilla - Last Filed: 05/11/23 13:40> Assessment And Plan - Current Problems (Diagnosis) (1) Fever, unknown origin Current Visit: Yes Status: Acute (2) CHF (congestive heart failure) Current Visit: Yes Status: Chronic Qualifiers: Heart failure type: combined systolic and diastolic (3) HTN (hypertension) Current Visit: Yes Status: Chronic Qualifiers: Hypertension type: secondary to other renal disorders Qualified Code(s): I1 5.1 - Hypertension secondary to other renal disorders (4) Neuropathy Current Visit: Yes Status: Acute (5) ESRD (end stage renal disease) on dialysis Current Visit: No Status: Acute (6) Diabetic neuropathy Onset Date: 10/20/17 Current Visit: No Status: Chronic Qualifiers: Diabetes mellitus type: type 2 Diabetes mellitus complication detail: diabetic polyneuropathy Qualified Code(s): E11.42 - Type 2 diabetes mellitus with diabetic polyneuropathy (7) Type 2 diabetes mellitus Current Visit: No Status: Chronic Qualifiers: Diabetes mellitus nursing home insulin use: with vermin exterminator use Diabetes mellitus complication status: with hyperglycemia Qualified Code(s): E11.65 - Type 2 diabetes mellitus with hyperglycemia; Z79.4 - vermin exterminator (current) use of insulin (8) Anemia in CKD (chronic kidney disease) Current Visit: Yes Status: Acute Qualifiers: Chronic kidney disease stage: on chronic dialysis Qualified Code(s): N18.6 - End stage renal disease; D63.1 - Anemia in chronic kidney disease; Z99.2 - Dependence on renal dialysis (9) Diarrhea Current Visit: Yes Status: Acute - Plan Fever, unknown origin CHF (congestive heart failure), Diastolic CHF HTN (hypertension) Neuropathy ESRD (end stage renal disease) on dialysis Anemia in CKD Hypomagnesemia Diarrhea * Patient was sent to the emergency room with a high-grade fever from the dialysis center * Admitted the patient to the hospital started on IV antibiotics for possible bacteremia, COVID testing negative. viral swabs and chest x-ray negative * vital signs blood pressure 157/80, pulse 107, respiration 20, temperature 102.2, pulse ox 97% on room air * Anemia and CKDhemoglobin 9.4. . H&H stable. We will continue to monitor hemoglobin and transfuse if less than 7.0. * Hypomagnesemia magnesium level of 1.3, will monitor and replete. Further management per point of sale associate. * CHF diastolic- BNP 6977. Patient denies shortness of breath, breathing normally on room air, no edema. Will continue to monitor * Hypertension--controlled on current antihypertensive will reconcile home medication and resume * ESRD-Patient on dialysis TTS. Nephrology notified. Will await further recommendations * Type 2 diabetes-NIDDM: Chronic uncontrolled, with hyperglycemia. Denies hypoglycemia, started on low-dose sliding scale insulin, blood sugar check before meals and at bedtime. Hypoglycemic precautions. * Loose stools and incontinence of stool, [t denies abdomnial pain. Ordered C-diff, sharron ova, parasites and WBC. CODE STATUSfull code Dietrenal diet DVT prophylaxisheparin Discharge Plan: Home Plan to discharge in: 48 Hours - Code Status/Comfort Care Code Status Assessed: Yes (full code) Code Status: Full Code Physician Review: Patient Assessed, Agree with Above Assessment and Plan Critical Care: No Time Spent Managing PTS Care (In Minutes): 35 (minutes) <Nate Maravilla - Last Filed: 05/11/23 13:40> - Plan Pt seen and examined. I agree with the note by the RURAL CARRIER. Continue abx. No growth on blood cx. <Mckayla Marion - Last Filed: 05/12/23 19:52>
[2023-05-11 16:04] VITALS: O2SAT 96
[2023-05-12] MEDS: HEPARIN 5000 UNIT/ML 1 ML VIAL SQ SCH ×3 (00:34→17:36)
[2023-05-12] MEDS: carvediloL 12.5 MG TAB PO SCH ×2 (05:37→18:27)
[2023-05-12] MEDS: INSULIN REGULAR (HUMAN) 100 UNIT/ML SQ SCH ×3 (07:30→16:30)
[2023-05-12 07:41] LABS: Absolute Lymphocytes (CBC) 1.4 K/uL (0.7-4.9); Hematocrit 25.7 % (39.6-49.0); Lymphocytes % 24.8 % (15.3-44.8); MCV 90.3 fL (80-100); MPV 8.1 fL (7.6-11.3); Platelets 171 thou/uL (152-406); RBC Red Blood Cell Count 2.85 M/uL (4.33-5.43)
[2023-05-12 08:13] LABS: Magnesium 2.3 mg/dL (1.6-2.4); Phosphorus 6.5 mg/dL (2.5-4.9); Potassium 4.6 mEq/L (3.5-5.1)
[2023-05-12] MEDS: PANTOPRAZOLE 40 MG INJ IVP SCH (09:00)
[2023-05-12] MEDS: SEVELAMER CARBONATE 800 MG TABLET PO SCH (10:10)
[2023-05-12] MEDS: LOSARTAN POTASSIUM 50 MG TABLET PO SCH (10:11)
[2023-05-12] MEDS: AMLODIPINE 10 MG TAB PO SCH (10:11)
--- NOTE | 2023-05-12 13:28 | ECHO ---
HEIGHT: 5 ft 8 in WEIGHT: 242 lb 14.4 oz DATE OF STUDY: 05/12/[address]: Nate Maravilla NP 2-DIMENSIONAL: YES M.MODE: YES DOPPLER: YES COLOR FLOW: YES TDS: PORTABLE: YES DEFINITY: BUBBLE STUDY: DIAGNOSIS: CONGESTIVE HEART FAILURE, HYPERTENSION, END STAGE RENAL DISEASE CARDIAC HISTORY: CATHERIZATION: NO SURGERY: NO PROSTHETIC VALVE: NO PACEMAKER: NO MEASUREMENTS (cm) DIASTOLIC (NORMALS) SYSTOLIC (NORMALS) IVSd 1.3 (0.6-1.2) LA Diam 3.5 (1.9-4.0) LVEF 50-55% LVIDd 5.4 (3.5-5.7) LVIDs 4.3 (2.0-3.5) %FS 21% LVPWd 1.3 (0.6-1.2) Ao Diam 2.8 (2.0-3.7) 2 DIMENSIONAL ASSESSMENT: RIGHT ATRIUM: NORMAL LEFT ATRIUM: NORMAL RIGHT VENTRICLE: NORMAL LEFT VENTRICLE: NORMAL TRICUSPID VALVE: MILD TRICUSPID REGURGITATION MITRAL VALVE: MILD MITRAL REGURGITATION PULMONIC VALVE: NORMAL AORTIC VALVE: NORMAL PERICARDIAL EFFUSION: NONE AORTIC ROOT: NORMAL LEFT VENTRICULAR WALL MOTION: NORMAL DOPPLER/COLOR FLOW: SEE BELOW COMMENTS: 1. NORMAL LEFT VENTRICULAR EJECTION FRACTION 50-55% 2. MODERATE DIASTOLIC DYSFUNCTION 3. MILD MITRAL REGURGITATION, TRICUSPID REGURGITATION 4. SEVERE PULMONARY HYPERTENSION WITH RIGHT VENTRICULAR SYSTOLIC PRESSURE GREATER THAN 60 mmHg TECHNOLOGIST: YEN CROWE
--- NOTE | 2023-05-12 13:47 | P.DS ---
Admission Date: 05/10/23 Discharge Date: 05/12/23 Reason for Admission: Fever Brief History of Present Illness: Mr. Mooney 48-year-old male patient with past medical history of end-stage renal failure on hemodialysis (TTS), type 2 diabetes insulin-dependent, diabetic neuropathy, hypertension and CHF presented to ER via wheelchair with complaints of fever and shortness of breath. Patient reports that patient went to dialysis this morning and on the personal ask him to go to the emergency room due to high fever. Associated symptoms of cough and congestion for 2 days. Patient denies any chest pain or discomfort. Patient denies abdominal pain, diarrhea nausea or vomiting. Reported sick contact-father with a upper respiratory infection at home. ED course vital signs blood pressure 157/80, pulse 107, respiration 20, temperature 102.2, pulse ox 97% on room air, weight 108.86 kg, height 5.7. Pain 0/10. EKG showing sinus tachycardia rate of 108/min, no acute ST segment elevations, nonconcerning intervals. Laboratory evaluationmetabolic panel shows elevated renal profile, reassuring liver profile, CBC showing anemia hemoglobin 9.4, hypomagnesemia magnesium 1.3, troponin within normal ranges, and BNP 6977. Chest x-ray negative. COVID testing negative. Patient was given normal saline 500 mL IV bolus, cefepime 1 g IV in the emergency room. Admitting the patient with a diagnosis of fever unspecified, end-stage renal failure, hypomagnesemia. - Physical Exam General: Alert, Oriented x3 HEENT: Atraumatic, Normocephalic Neck: 2+ carotid pulse no bruit Respiratory: Clear to auscultation bilaterally, Normal air movement Cardiovascular: No edema, Normal pulses Capillary refill: <2 Seconds Gastrointestinal: Normal bowel sounds, Soft and benign Musculoskeletal: No clubbing, No swelling Integumentary: No rashes, No breakdown Neurological: Normal speech, Normal tone, Normal affect Hospital Course: 48 year-old male patient presented with end-stage renal disease on hemodialysis, fever fever. Was noted to have fever of unknown origin. Was treated with IV antibiotics. Condition improved with IV antibiotics. Stable for discharge. with follow-up appointment with primary care physician. New prescriptions Levaquin 1 tablet daily for 7 days Follow-up with nephrology for hemodialysis PROBLEM: Fever of unknown origin Flu, negative blood cultures negative Stool cultures pending Continue home medicines as previously prescribed GOAL: Clear understanding of disease process INSTRUCTIONS: Physician Discharge Instructions: -DC IV and DC home -Follow-up with PCP in 1 to 2 weeks -Please call nursing station at [phone] if any nursing or medication questions -Return to the emergency room if symptoms worsen Diet: ADA, low sodium Activity: Fall precautions DME: none Date Ordered: Name of Company: [employer] Services Needed: None Date or Referral: IMMUNIZATION Influenza Vaccine Indicated: Influenza Vaccine Given: Date Given: Pneumonia Vaccine Indicated: Pneumonia Vaccine Given: Date Given: <Radha Howell - Last Filed: 05/12/23 18:31> Admission Date: 05/10/23 Discharge Date: 05/12/23 Hospital Course: Pt seen and examined. I agree with the note by the 21 DEALER. Ok to discharge pt. <Mckayla Marion - Last Filed: 05/12/23 19:36> Disposition: ROUTINE DISCHARGE Discharge Condition: FAIR Vital Signs/Physical Exam: Temp Pulse Resp BP Pulse Ox 97.7 F 73 18 139/63 94 05/12/23 12:00 05/12/23 12:00 05/12/23 12:00 05/12/23 12:00 05/12/23 12:00 Laboratory Data at Discharge: WBC 5.60 thou/uL (4.3-10.9) 05/12/23 07:12 Hgb 8.9 g/dL (13.6-17.9) L 05/12/23 07:12 Hct 25.7 % (39.6-49.0) L 05/12/23 07:12 Plt Count 171 thou/uL (152-406) 05/12/23 07:12 PT 13.0 SECONDS (9.5-12.5) H 05/10/23 07:15 INR 1.19 05/10/23 07:15 Sodium 133 mEq/L (136-145) L 05/12/23 07:12 Potassium 4.6 mEq/L (3.5-5.1) 05/12/23 07:12 BUN 74 mg/dL (7-18) H 05/12/23 07:12 Creatinine 9.79 mg/dL (0.70-1.30) H 05/12/23 07:12 Glucose 153 mg/dL (74-106) H 05/12/23 07:12 Phosphorus 6.5 mg/dL (2.5-4.9) H 05/12/23 07:12 Magnesium 2.3 mg/dL (1.6-2.4) 05/12/23 07:12 Total Bilirubin 0.5 mg/dL (0.2-1.0) 05/10/23 07:15 AST 14 U/L (15-37) L 05/10/23 07:15 ALT 27 U/L (16-61) 05/10/23 07:15 Alkaline Phosphatase 87 U/L (45-117) 05/10/23 07:15 Triglycerides 253 mg/dL (<150) H 05/11/23 02:27 Cholesterol 142 mg/dL (<200) 05/11/23 02:27 HDL Cholesterol 32 mg/dL (40-60) L 05/11/23 02:27 Cholesterol/HDL Ratio 4.44 05/11/23 02:27 <Radha Howell - Last Filed: 05/12/23 18:31> Vital Signs/Physical Exam: Temp Pulse Resp BP Pulse Ox 97.5 F 79 18 161/75 H 97 05/12/23 16:00 05/12/23 18:27 05/12/23 16:00 05/12/23 18:27 05/12/23 16:00 Laboratory Data at Discharge: WBC 5.60 thou/uL (4.3-10.9) 05/12/23 07:12 Hgb 8.9 g/dL (13.6-17.9) L 05/12/23 07:12 Hct 25.7 % (39.6-49.0) L 05/12/23 07:12 Plt Count 171 thou/uL (152-406) 05/12/23 07:12 PT 13.0 SECONDS (9.5-12.5) H 05/10/23 07:15 INR 1.19 05/10/23 07:15 Sodium 133 mEq/L (136-145) L 05/12/23 07:12 Potassium 4.6 mEq/L (3.5-5.1) 05/12/23 07:12 BUN 74 mg/dL (7-18) H 05/12/23 07:12 Creatinine 9.79 mg/dL (0.70-1.30) H 05/12/23 07:12 Glucose 153 mg/dL (74-106) H 05/12/23 07:12 Phosphorus 6.5 mg/dL (2.5-4.9) H 05/12/23 07:12 Magnesium 2.3 mg/dL (1.6-2.4) 05/12/23 07:12 Total Bilirubin 0.5 mg/dL (0.2-1.0) 05/10/23 07:15 AST 14 U/L (15-37) L 05/10/23 07:15 ALT 27 U/L (16-61) 05/10/23 07:15 Alkaline Phosphatase 87 U/L (45-117) 05/10/23 07:15 Triglycerides 253 mg/dL (<150) H 05/11/23 02:27 Cholesterol 142 mg/dL (<200) 05/11/23 02:27 HDL Cholesterol 32 mg/dL (40-60) L 05/11/23 02:27 Cholesterol/HDL Ratio 4.44 05/11/23 02:27 <Mckayla Marion - Last Filed: 05/12/23 19:36> Diet: Renal Time spent managing pt's care (in minutes): 55 <Radha Howell - Last Filed: 05/12/23 18:31> <Mckayla Marion - Last Filed: 05/12/23 19:36> Home Medications: Gabapentin [Neurontin*] 100 mg PO BID 30 Days #90 cap 09/26/21 Blood Sugar Diagnostic [Glucose Test Strip] 1 each MC 30 MIN BEFORE HS #100 strip 12/17/21 Diabetic Supplies,Miscell [Cequr [employer] [employer] Tech] 1 each MC DAILY 30 Days 12/17/21 Furosemide [Lasix*] 40 mg PO BIDL #60 tab 12/17/21 Insulin Glargine,Hum.rec.anlog [Semglee] 20 unit SQ BEDTIME #10 ml 12/17/21 Lancets/Blood Glucose Strips [Gojji Lancet 30G-Gluc Tst Strp] 1 each MC 30 MIN BEFORE HS #100 strip 12/17/21 Amlodipine [Norvasc*] 10 mg PO DAILY 30 Days #30 tab 10/31/22 Calcium Acetate [Phoslo*] 667 mg PO TIDWM 30 Days #90 tab 02/18/22 Omeprazole [Prilosec] 40 mg PO DAILY 30 Days #30 cap 02/18/22 Losartan Potassium [Cozaar*] 100 mg PO DAILY #60 tab 08/08/22 Aspirin [Aspirin EC 81 MG] 81 mg PO DAILY 01/29/23 Rivaroxaban [Xarelto] 2.5 mg PO DAILY 01/29/23 Sevelamer Carbonate [Renvela] 800 mg PO DAILY 01/29/23 carvediloL [Coreg*] 25 mg PO BID 01/29/23 levoFLOXacin [Levaquin] 750 mg PO DAILY 7 Days #7 tab 05/12/23 New Medications: levoFLOXacin [Levaquin] 750 mg PO DAILY 7 Days #7 tab Physician Discharge Instructions: Hospital Course: 48 year-old male patient presented with end-stage renal disease on hemodialysis, fever fever. Was noted to have fever of unknown origin. Was treated with IV a ntibiotics. Condition improved with IV antibiotics. Stable for discharge. with follow-up appointment with primary care physician. New prescriptions Levaquin 1 tablet daily for 7 days Follow-up with nephrology for hemodialysis PROBLEM: Fever of unknown origin Flu, negative blood cultures negative Stool cultures pending Continue home medicines as previously prescribed GOAL: Clear understanding of disease process INSTRUCTIONS: Physician Discharge Instructions: -DC IV and DC home -Follow-up with PCP in 1 to 2 weeks -Please call nursing station at [phone] if any nursing or medication qu estions -Return to the emergency room if symptoms worsen Diet: ADA, low sodium Activity: Fall precautions DME: none Date Ordered: Name of Company: [employer] Services Needed: None Date or Referral: IMMUNIZATION Influenza Vaccine Indicated: Influenza Vaccine Given: Date Given: Pneumonia Vaccine Indicated: Pneumonia Vaccine Given: Date Given: Followup: Ramon Romo MD [Primary Care Provider] -
--- NOTE | 2023-05-12 16:58 | EKG ---
Test Date: 2023-05-10 Test Time: 07:44:37 Rubber Grinder: JOSE MEASUREMENT RESULTS: Intervals: Rate: 99 MD: 116 QRSD: 92 QT: 358 QTc: 459 [place]: P: 57 MD: 116 QRS: -25 T: 77 INTERPRETIVE STATEMENTS: Normal sinus rhythm Normal ECG Compared to ECG 03/30/2023 21:51:39 Left-axis deviation no longer present Electronically Signed On 05-12-23 16:53:15 HEALTH INFORMATION MANAGEMENT DIRECTOR by Mason Jasso
[2023-05-12] MEDS ORDERED: HYDRALAZINE HCL 20 MG/ML VIAL IV PRN (17:51)
[2023-05-12 19:52] VITALS: BP 133/63; TEMP 98
--- NOTE | 2023-05-12 22:01 | P.PN ---
Date of Service: 05/12/23 Vital Signs Temp Pulse Resp BP Pulse Ox 98 F 74 18 133/63 97 05/12/23 19:52 05/12/23 19:52 05/12/23 19:52 05/12/23 19:52 05/12/23 19:52 Lab Results (last 24 hrs) 05/10/23 09:15: Urine Color Cancelled, Urine Clarity Cancelled, Urine pH Cancelled, Ur Specific [place] Cancelled, Glucose (UA)(Auto) Cancelled, Urine Ketones Cancelled, Urine Blood Cancelled, Urine Nitrite Cancelled, Urine Bilirubin Cancelled, Urine Urobilinogen Cancelled, Ur Leukocyte Esterase Can celled, Urine RBC Cancelled, Urine Red Cell Clumps Cancelled, Urine WBC Cancelled, Urine WBC Clumps Cancelled, Ur Squamous Epith Cells Cancelled, U Non- Squamous Epi Cells Cancelled, Ur Transition Epith Cell Cancelled, Ur Renal Epithelial Cell Cancelled, Calcium Carbonate Cryst Cancelled, Calcium Oxalate Crystal Cancelled, Leucine Crystals Cancelled, Cystine Crystals Cancelled, Uric Acid Crystals Cancelled, Triple Phos Crystals Cancelled, Tyrosine Crystals Cancelled, Unidentified Crystals Cancelled, Amorphous Crystals Cancelled, Urine Bacteria Cancelled, Hyaline Casts Cancelled, Granular Casts Cancelled, Waxy Casts Cancelled, RBC Casts Cancelled, WBC Casts Cancelled, Urine Mucus Cancelled, Urine Trichomonas Cancelled, Ur Yeast w Hyphae Cancelled, Urine Yeast (Budding) Cancelled, Urine Sperm Cancelled, Ur Oval Fat Bodies Cancelled, Ur Microscopic Review Cancelled, Urine Culture Reflexed Cancelled, Urine Total Protein Cancelled, Urine Ascorbic Acid Cancelled, Urine Fat Cancelled Microbiology Results 05/10/23 07:35 Blood - Blood Aerobic Blood Culture - Preliminary No growth in 24 hours. 05/10/23 07:35 Blood - Blood Anaerobic Blood Culture - Preliminary No growth in 24 hours. 05/10/23 07:20 Blood - Blood Aerobic Blood Culture - Preliminary No growth in 24 hours. 05/10/23 07:20 Blood - Blood Anaerobic Blood Culture - Preliminary No growth in 24 hours. 05/10/23 07:10 Nasopharnyx Influenza Type A Antigen Screen - Final 05/10/23 07:10 Nasopharnyx Influenza Type B Antigen Screen - Final Assessment/ Plan: Nephrology No dyspnea No chest pain Feeling better No acute events overnight Vitals, medications, blood work and imaging reviewed in the chart NAD. MMM. NCAT. Normal Respiratory Effort. S1S2. ND Abd. No C/C/E. No rash. AAO. Normal speech. ESRD on HD -HD TIW HTN with CKD/ CHF -Continue Losartan and Amlodipine Diastolic CHF, chronic -HD with UF DM II with CKD & Polyneuropathy -RISS Anemia in CKD -Retacrit prn CKD MBD -Continue [place] Hospitalist note reviewed
== END 2023-05-12 19:59 | disposition home or self-care (01) | DRG 640 ==
LOC: ER 06:08 → ERHOLD 09:17 → 2ND 12:49
PROVIDERS: ADMIT Hospitalist; ATTEND Hospitalist
PROC: 5A1D70Z Performance of Urinary Filtration, Intermittent, Less than 6 Hours Per Day (ICD-10-PCS; principal; 2023-05-10)
DX: E83.42 Hypomagnesemia (principal); N18.6 End stage renal disease; I13.2 Hypertensive heart and chronic kidney disease with heart failure and with stage 5 chronic kidney disease, or end stage renal disease; I50.32 Chronic diastolic (congestive) heart failure; E11.22 Type 2 diabetes mellitus with diabetic chronic kidney disease; E11.65 Type 2 diabetes mellitus with hyperglycemia; E11.42 Type 2 diabetes mellitus with diabetic polyneuropathy; D63.1 Anemia in chronic kidney disease; E78.5 Hyperlipidemia, unspecified; E66.9 Obesity, unspecified; Z99.2 Dependence on renal dialysis; Z60.2 Problems related to living alone; Z79.4 Long term (current) use of insulin; Z11.52 Encounter for screening for COVID-19; Z79.82 Long term (current) use of aspirin; Z79.02 Long term (current) use of antithrombotics/antiplatelets; Z68.36 Body mass index [BMI] 36.0-36.9, adult; Z79.899 Other long term (current) drug therapy
CPT/HCPCS: 36415; 71045; 80048; 80061; 80076; 81001; 82947; 83036; 83605; 83735; 83880; 84100; 84439; 84443; 84484; 85025; 85610; 86706; 87040; 87177; 87209; 87340; 87804; 87811; 89055; 90935; 93005; 93306; 96365; 96366; 99285; C9113; J0692; J1644; J3475; J7040; J7050

== ENCOUNTER 2023-06-23 07:26 | Day surgery (SDC) | payer BC, OTHER ==
[2023-06-19 13:28] LABS: Absolute Basophils 0.1 K/uL (0-0.5); Absolute Lymphocytes (CBC) 1.4 K/uL (0.7-4.9); Basophils % 1.3 % (0-1.3); Lymphocytes % 18.7 % (15.3-44.8); MPV 7.4 fL (7.6-11.3); Platelets 288 thou/uL (152-406); RBC Red Blood Cell Count 3.26 M/uL (4.33-5.43)
[2023-06-19 13:37] LABS: Protime INR 1.06
[2023-06-19 13:54] LABS: Anion Gap 12.1 mEq/L (5.0-15.0); Potassium 4.1 mEq/L (3.5-5.1)
[2023-06-23] MEDS ORDERED: NA CHLORIDE 0.9% 500 ML ONE (07:53)
[2023-06-23] MEDS ORDERED: HEPA 1000U/500MLS 2,000 UNIT/1,000 ML BAG IV ONE (07:55)
[2023-06-23] MEDS ORDERED: LIDOCAINE 1% 20 ML MDV ONE (07:55)
[2023-06-23] MEDS ORDERED: FENTANYL CITR 100 MCG/2 ML ONE (09:14)
[2023-06-23] MEDS ORDERED: MIDAZOLAM HCL 2 MG/2 ML INJ ONE (09:14)
[2023-06-23 11:43] VITALS: O2SAT 100
[2023-06-23 12:16] VITALS: BP 158/75
--- NOTE | 2023-06-23 16:06 | EKG ---
Test Date: 2023-06-19 Test Time: 13:53:28 Trials Manager: LALO MEASUREMENT RESULTS: Intervals: Rate: 86 SD: 128 QRSD: 90 QT: 404 QTc: 483 [place]: P: 55 SD: 128 QRS: -29 T: 86 INTERPRETIVE STATEMENTS: Normal sinus rhythm Possible Left atrial enlargement Prolonged QT Abnormal ECG Compared to ECG 05/10/2023 07:44:37 Prolonged QT interval now present Electronically Signed On 06-23-23 16:04:42 DIRECTOR OF OPTIMIZATION by Mason Jasso
== END 2023-06-23 12:11 | disposition home or self-care (01) ==
LOC: CCL 07:26
PROVIDERS: ATTEND Internal Medicine Interventional Cardiology
PROC: 4A023N6 Measurement of Cardiac Sampling and Pressure, Right Heart, Percutaneous Approach (ICD-10-PCS; principal; 2023-06-23)
DX: I27.21 Secondary pulmonary arterial hypertension (principal); I70.223 Atherosclerosis of native arteries of extremities with rest pain, bilateral legs; I12.0 Hypertensive chronic kidney disease with stage 5 chronic kidney disease or end stage renal disease; E11.22 Type 2 diabetes mellitus with diabetic chronic kidney disease; N18.6 End stage renal disease; E78.5 Hyperlipidemia, unspecified; Z99.2 Dependence on renal dialysis; Z79.82 Long term (current) use of aspirin; Z79.84 Long term (current) use of oral hypoglycemic drugs; Z79.899 Other long term (current) drug therapy
CPT/HCPCS: 93005; 85025; 80048; 36415; 85610; 82947; 85730; 76937; 93451; C1893; J2001; J2250; J3010; J7040; 99152; 99153

== ENCOUNTER → 2023-07-04 | Emergency (ER) | payer BC, OTHER ==
[2023-07-04 15:10] LABS: Absolute Basophils 0.1 K/uL (0-0.5); Absolute Eosinophils 0.5 K/uL (0-0.5); Absolute Lymphocytes (CBC) 1.9 K/uL (0.7-4.9); Absolute Monocytes 0.8 K/uL (0.1-1.3); Absolute Neutrophil 6.2 K/uL (1.8-8.0); Basophils % 1.4 % (0-1.3); Eosinophils % 5.2 % (0-4.4); Hematocrit 27.8 % (39.6-49.0); MCH 32.1 pg (27.0-35.0); MCHC 35.7 g/dL (32.0-36.0); MCV 89.7 fL (80-100); MPV 7.7 fL (7.6-11.3); Monocytes % 8.2 % (3.3-12.3); Neutrophils % 65.2 % (41.7-73.7); Platelets 226 thou/uL (152-406); RBC Red Blood Cell Count 3.11 M/uL (4.33-5.43); Red Cell Distribution Width 14.6 % (12.1-15.2)
--- NOTE | 2023-07-04 15:11 | RAD REPORT ---
EXAM DESCRIPTION: CT - Abdomen Pelvis Wo Contrast - 07/04/2023 2:25 pm CLINICAL HISTORY: ABD PAIN COMPARISON: Stone Protocol dated 11/03/2022; Abdomen Pelvis Wo Contrast dated 02/12/2022; Stone Pro tocol dated 05/04/2021 TECHNIQUE: Thin cut axial CT imaging of the abdomen and pelvis was performed without IV contrast. Mu ltiplanar reformats were generated and reviewed. All CT scans are performed using dose optimization technique as appropriate and may include automated exposure control or mA/KV adjustment according to patient size. FINDINGS: Mild right layering pleural effusion. The liver, spleen, adrenal glands and pancreas show no suspicious findings. Focus of calcification al melany the right liver lobe the capsule is stable and nonspecific. Gallbladder and biliary tree are also without suspicious finding. Symmetric renal contour, without suspicious parenchymal findings within limits of noncontrast techniq ue. No evidence of radiopaque calculi or hydroureteronephrosis. No dilated bowel loops or bowel wall thickening. Appendix is unremarkable. No free air, free fluid or inflammatory stranding. Small right inguinal hernia containing fat. No suspicious mass. Small mesent [place] and retroperitoneal lymph nodes, stable. The urinary bladder is without significant finding. No suspicious bony findings. IMPRESSION: Stable nonspecific small mesenteric and retroperitoneal lymph nodes, could be reactive. No other acute intra-abdominal process. Mild right layering pleural effusion.
--- NOTE | 2023-07-04 15:38 | RAD REPORT ---
EXAM DESCRIPTION: US - Upper Ext Artery Uni Clement - 07/04/2023 2:28 pm CLINICAL HISTORY: PAIN COMPARISON: Extrem Venous W Compress Clement dated 03/30/2023 TECHNIQUE: Left upper extremity arterial Doppler examination was performed with waveform tracing. FINDINGS: Patent AV fistula, with low resistive waveforms seen throughout the left upper extremity. Moderate focal narrowing at the fistula outflow, with increased peak systolic velocity, 377 cm/sec. IMPRESSION: Patent left upper extremity AV fistula. Moderate focal narrowing at the fistula outflow tract.
--- NOTE | 2023-07-04 15:39 | RAD REPORT ---
EXAM DESCRIPTION: US - UPPER EXTREMITY VENOUS UNILATE - 07/04/2023 2:31 pm CLINICAL HISTORY: Pain COMPARISON: None. TECHNIQUE: Real-time sonographic evaluation of the left lower extremity deep venous system was perfo rmed. FINDINGS: Normal compressibility, flow augmentation, phasic flow and spontaneous flow is identified in the left lower extremity deep venous system. No intraluminal filling defects seen. IMPRESSION: No evidence of DVT in the left lower extremity.
[2023-07-04 15:46] LABS: Albumin 3.2 g/dL (3.4-5.0); Albumin/Globulin Ratio 0.8 (1.1-1.8); Anion Gap 13.5 mEq/L (5.0-15.0); Bilirubin Total 0.3 mg/dL (0.2-1.0); Globulin 3.9 g/dL (2.3-3.5); Potassium 4.5 mEq/L (3.5-5.1); Protein, Total 7.1 g/dL (6.4-8.2)
--- NOTE | 2023-07-04 15:55 | ER ---
Nurse's Notes [facility] Name: Chava Pate Age: 48 yrs Sex: Male : 1975 Arrival Date: 07/04/2023 Time: 12:57 Bed 8 Private MD: Diagnosis: Pain in left upper arm;Abdominal pain, Generalized-left lateral Presentation: 07/03 13:11 Chief complaint: Patient states: L trunk pain off/on for 2 weeks. Radiates into L arm. ll1 No fever or cough. Coronavirus screen: Client denies travel out of the [place] in the last 14 days. At this time, the client does not indicate any symptoms associated with coronavirus-19. Ebola Screen: Patient denies travel to an Ebola-affected area in the 21 days before illness onset. Initial Sepsis Screen: Does the patient meet any 2 criteria? No. Patient's initial sepsis screen is negative. Does the patient have a suspected source of infection? No. Patient's initial sepsis screen is negative. Risk Assessment: Do you want to hurt yourself or someone else? Patient reports no desire to harm self or others. Onset of symptoms was June 20, 2023. 13:11 Method Of Arrival: Ambulatory ll1 13:11 Acuity: EDINSON 3 ll1 Triage Assessment: 13:13 General: Appears uncomfortable, Behavior is calm, cooperative, appropriate for age. hb Pain: Complains of pain in L lateral trunk. Cardiovascular: Reports chest pain. Historical: - Allergies: 13:13 No Known Allergies; ll1 - PMHx: 13:13 Congestive heart failure; ESRD; Hypertension; IDDM; neuropathy; kidney failure ll1 (neuropathy); - PSHx: 13:13 Left arm fistula; ll1 - Immunization history:: Adult Immunizations up to date. - Social history:: Smoking status: Patient denies any tobacco usage or history of. Assessment: 14:00 Reassessment: Not found in lobby when called to CT. hb 15:00 General: Appears in no apparent distress. Behavior is calm, cooperative. Pain: kd3 Complains of pain in anterior aspect of left lateral abdomen and posterior aspect of left lateral abdomen Pain radiates to left arm. Pain: Pain currently is 7 out of 10 on a pain scale. Neuro: Level of Consciousness is awake, alert, obeys commands, Oriented to person, place, time, situation. Cardiovascular: Patient's skin is warm and dry. Respiratory: Airway is patent Trachea midline Respiratory effort is even, unlabored, Respiratory pattern is regular, symmetrical. 15:06 General: Pt states that he produces very little urine. Pt provided a urinal to attempt kd3 to obtain urine sample. . 16:00 Reassessment: Patient is alert, oriented x 3, equal unlabored respirations, skin aa5 warm/dry/pink. Vital Signs: 13:11 BP 182 / 88; Pulse 87; Resp 18; Temp 97.8; Pulse Ox 99% ; Weight 106.59 kg; Height 5 ll1 ft. 8 in. ; Pain 7/10; 15:01 BP 166 / 85; Pulse 85; Resp 16; Pulse Ox 100% on R/A; kd3 13:11 Body Mass Index 35.73 (106.59 kg, 172.72 cm) ll1 13:11 Pain Scale: Adult ll1 ED Course: 13:01 Patient arrived in ED. im 13:03 Elizabeth Fofana FNP-C is PHCP. kb 13:03 Bam Bonds MD is Attending Physician. kb 13:13 Triage completed. ll1 13:13 Arm band placed on. ll1 14:27 CT Abd/Pelvis - Without Contrast In Process Unspecified. EDMS 14:29 Donna Rene, MARCELA is Primary Nurse. kd3 14:30 Upper Ext Artery Uni Clement In Process Unspecified. EDMS 14:32 UPPER EXTREMITY VENOUS UNILATE In Process Unspecified. EDMS 14:58 CBC with Diff Sent. kd3 15:00 Inserted saline lock: 20 gauge in right antecubital area, using aseptic technique. kd3 Blood collected. 16:00 IV discontinued, intact, bleeding controlled, No redness/swelling at site. Pressure aa5 dressing applied. 16:00 No provider procedures requiring assistance completed. aa5 Administered Medications: No medications were administered Outcome: 15:55 Discharge ordered by . kb 16:04 Patient left the ED. aa5 Signatures: Dispatcher [employer] EDMS Elizabeth Fofana FNP-C FNP-Ckb Calderon, Audri, RN RN aa5 Mayela Bustamante RN RN hb Lewis, Lynsay, RN RN ll1 Donna Rene RN RN kd3 Suha Walters Corrections: (The following items were deleted from the chart) 13:14 13:11 Pulse 87bpm; Resp 18bpm; Pulse Ox 99%; Temp 97.8F; 106.59 kg; Height 5 ft. 8 in.; ll1 BMI: 35.7; Pain 10/28, Adult; ll1 14:30 14:22 In radiology for UPPER EXTREMITY VENOUS UNILATE. EDMS EDMS 14:32 14:21 In radiology for Upper Ext Artery Uni Clement. EDMS EDMS
--- NOTE | 2023-07-04 15:55 | EDPHYS ---
Physician Documentation [facility] Name: Chava Pate Age: 48 yrs Sex: Male : 1975 Arrival Date: 07/04/2023 Time: 12:57 Bed 8 Private MD: ED Physician Bam Bonds HPI: 07/03 13:47 This 48 yrs old Male presents to ER via Ambulatory with complaints of Arm Pain kb - left, Flank Pain. 13:47 Patient is a 48-year-old male who presents for left upper quadrant/lateral abdominal kb pain that started 2 weeks ago as well as left upper arm pain that started a few days prior to the abdominal pain. Denies nausea, vomiting, diarrhea, fever. States nothing makes pain better or worse, denies tenderness. Denies injury or trauma. States he gets dialysis Friday, and Friday and has not missed any days. Dialysis fistula is in the left forearm and he has had no problems with it or with having dialysis completed.. Historical: - Allergies: 13:13 No Known Allergies; ll1 - PMHx: 13:13 Congestive heart failure; ESRD; Hypertension; IDDM; neuropathy; kidney failure ll1 (neuropathy); - PSHx: 13:13 Left arm fistula; ll1 - Immunization history:: Adult Immunizations up to date. - Social history:: Smoking status: Patient denies any tobacco usage or history of. ROS: 13:49 Constitutional: As per HPI kb Exam: 13:49 Constitutional: This is a well developed, well nourished patient who is awake, alert, kb and in no acute distress. Head/Face: Normocephalic, atraumatic. ENT: Moist Mucous membranes Cardiovascular: Regular rate Respiratory: Respirations even and unlabored. No increased work of breathing. Talking in full sentences Abdomen/GI: Soft, non-tender. No distention Skin: Warm, dry with normal turgor. Normal color. MS/ Extremity: Pulses equal, no cyanosis. Neurovascular intact. Full, normal range of motion. Neuro: Awake and alert, GCS 15, oriented to person, place, time, and situation. Moves all extremities. Normal gait. Vital Signs: 13:11 BP 182 / 88; Pulse 87; Resp 18; Temp 97.8; Pulse Ox 99% ; Weight 106.59 kg; Height 5 ll1 ft. 8 in. ; Pain 7/10; 15:01 BP 166 / 85; Pulse 85; Resp 16; Pulse Ox 100% on R/A; kd3 13:11 Body Mass Index 35.73 (106.59 kg, 172.72 cm) ll1 13:11 Pain Scale: Adult ll1 MDM: 13:03 Patient medically screened. kb 13:49 Data reviewed: vital signs, nurses notes. kb 15:54 Differential diagnosis: bowel obstruction, gastritis, non-specific abd pain, kb pancreatitis, dvt, myalgia. Counseling: I had a detailed discussion with the patient and/or guardian regarding the historical points, exam findings, and any diagnostic results supporting the discharge/admit diagnosis, lab results, radiology results, the need for outpatient follow up, a family practitioner, to return to the emergency department if symptoms worsen or persist or if there are any questions or concerns that arise at home. 07/03 13:20 Order name: CBC with Diff; Complete Time: 15:10 kb 07/03 13:20 Order name: CMP; Complete Time: 15:47 kb 07/03 13:20 Order name: Lipase; Complete Time: 15:47 kb 07/03 13:20 Order name: CT Abd/Pelvis - Without Contrast; Complete Time: 15:15 kb 07/03 14:30 Order name: Upper Ext Artery Uni Clement; Complete Time: 15:41 EDMS 07/03 14:32 Order name: UPPER EXTREMITY VENOUS UNILATE; Complete Time: 15:41 EDMS 07/03 13:20 Order name: EKG; Complete Time: 13:21 kb 07/03 13:20 Order name: IV Saline Lock; Complete Time: 14:58 kb 07/03 13:20 Order name: Labs collected and sent; Complete Time: 14:58 kb 07/03 13:20 Order name: EKG - Nurse/Tech; Complete Time: 14:55 kb Administered Medications: No medications were administered Disposition: 16:30 Co-signature as Attending Physician, Bam Bonds MD I reviewed the patient's care rt provided by the Advanced Practice Provider and agree with the diagnosis and treatment plan. Disposition Summary: 07/04/23 15:55 Discharge Ordered Notes: Location: Home kb Condition: Stable kb Diagnosis - Pain in left upper arm kb - Abdominal pain, Generalized - left lateral kb Followup: kb - With: Emergency Department - When: As needed - Reason: Worsening of condition Followup: kb - With: Private Physician - When: 2 - 3 days - Reason: Recheck today's complaints, Continuance of care, Re-evaluation by your physician Discharge Instructions: - Discharge Summary Sheet kb - Musculoskeletal Pain kb - Abdominal Pain, Adult, [id number] kb Forms: - Medication Reconciliation Form kb - Thank You Letter kb - Antibiotic Education kb - Prescription Opioid Use kb - Patient Portal Instructions kb - Leadership Thank You Letter kb Signatures: Dispatcher [employer] EDMS Elizabeth Fofana, PAPER REELER-C PAPER REELER-Gretta Kuhn, RN RN ll1 Bam Bonds MD MD rt Corrections: (The following items were deleted from the chart) 14:21 13:21 Extremity Venous Uni Ltd+US.RAD.BRZ ordered. EDMS EDMS 14:22 13:21 Lower Extremity Artery Uni Ltd+US.RAD.BRZ ordered. EDMS EDMS 14:30 14:22 UPPER EXTREMITY VENOUS UNILATE ordered. EDMS EDMS 14:32 14:21 Upper Ext Artery Uni Clement ordered. EDMS EDMS
[2023-07-04 16:28] VITALS: BP 166/85; TEMP 97.8; O2SAT 100
== END ==
LOC: ER 12:57
DX: M79.622 Pain in left upper arm (principal); R10.84 Generalized abdominal pain; R10.32 Left lower quadrant pain; E11.22 Type 2 diabetes mellitus with diabetic chronic kidney disease; I13.2 Hypertensive heart and chronic kidney disease with heart failure and with stage 5 chronic kidney disease, or end stage renal disease; I50.9 Heart failure, unspecified; N18.6 End stage renal disease; Z99.2 Dependence on renal dialysis
CPT/HCPCS: 36415; 74176; 80053; 83690; 85025; 93005; 93931; 93971; 99283

== ENCOUNTER 2023-12-24 16:27 | Emergency (ER) | payer BC, OTHER ==
[2023-12-24 17:23] LABS: Absolute Basophils 0.1 K/uL (0-0.5); Absolute Eosinophils 0.5 K/uL (0-0.5); Absolute Monocytes 1.2 K/uL (0.1-1.3); Absolute Neutrophil 6.7 K/uL (1.8-8.0); Basophils % 1.2 % (0-1.3); Eosinophils % 4.3 % (0-4.4); Hematocrit 26.7 % (39.6-49.0); Hemoglobin 9.4 g/dL (13.6-17.9); Lymphocytes % 19.3 % (15.3-44.8); MCH 31.9 pg (27.0-35.0); MPV 7.2 fL (7.6-11.3); Monocytes % 11.6 % (3.3-12.3); Neutrophils % 63.6 % (41.7-73.7); Nucleated Red Blood Cells % 0.1 % (0-0); Platelets 243 thou/uL (152-406); RBC Red Blood Cell Count 2.94 M/uL (4.33-5.43); Red Cell Distribution Width 13.3 % (12.1-15.2)
[2023-12-24 17:40] LABS: Anion Gap 14.6 mEq/L (5.0-15.0); Potassium 4.6 mEq/L (3.5-5.1)
--- NOTE | 2023-12-24 17:51 | RAD REPORT ---
EXAM DESCRIPTION: US - Scrotum Testicles - 12/24/2023 5:39 pm CLINICAL HISTORY: Testicular pain COMPARISON: None FINDINGS: Right testicle measures 4.4 x 2.4 x 3.3 centimeters. Echotexture is homogeneous. Normal bl ood flow Left testicle measures 3.7 x 1.7 x 2 6 centimeters. Echotexture is homogeneous. Normal blood flow The epididymides are normal in size and echotexture. Normal blood flow is seen. Small right inguinal hernia contains fat IMPRESSION: Small right inguinal hernia
--- NOTE | 2023-12-24 17:54 | RAD REPORT ---
EXAM DESCRIPTION: CT - Abdomen Pelvis Wo Contrast - 12/24/2023 5:21 pm CLINICAL HISTORY: Abdominal pain COMPARISON: June 2023 TECHNIQUE: Computed axial tomography of the abdomen and pelvis was obtained. IV and oral contrast we re not requested. All CT scans are performed using dose optimization technique as appropriate and may include automated exposure control or mA/KV adjustment according to patient size. FINDINGS: The evaluation of solid organs, vessels and bowel is limited secondary to the lack of con trast administration. The liver, spleen, pancreas, adrenals and kidneys appear grossly normal. The appendix is normal. There is no evidence of diverticulitis. Small right inguinal hernia contains fat. Cholecystectomy Small umbilical hernia IMPRESSION: Small right inguinal hernia
--- NOTE | 2023-12-24 18:04 | ER ---
Nurse's Notes [facility] Name: Chava Pate Age: 48 yrs Sex: Male : 1975 Arrival Date: 12/24/2023 Time: 16:27 Bed 5 Private MD: Diagnosis: Unilateral inguinal hernia, without obstruction or gangrene Presentation: 12/23 16:37 Chief complaint: Patient states: R groin pain for a few days, worse today. Coronavirus ll1 screen: Client denies travel out of the [place] in the last 14 days. At this time, the client does not indicate any symptoms associated with coronavirus-19. Ebola Screen: Patient denies travel to an Ebola-affected area in the 21 days before illness onset. Initial Sepsis Screen: Does the patient meet any 2 criteria? No. Patient's initial sepsis screen is negative. Does the patient have a suspected source of infection? No. Patient's initial sepsis screen is negative. Risk Assessment: Do you want to hurt yourself or someone else? Patient reports no desire to harm self or others. Onset of symptoms was December 22, 2023. 16:37 Method Of Arrival: Ambulatory ll1 16:37 Acuity: EDINSON 3 ll1 Triage Assessment: 16:39 General: Appears uncomfortable, Behavior is calm, cooperative, appropriate for age. ll1 Pain: Complains of pain in R groin Pain currently is 6 out of 10 on a pain scale. Quality of pain is described as aching, sharp. : Reports pain in right scrotum, pelvic/groin. Historical: - Allergies: 16:39 No Known Allergies; ll1 - PMHx: 16:39 Congestive heart failure; ESRD; Hypertension; IDDM; kidney failure (neuropathy); ll1 neuropathy; dialysis T, T, S (Left arm fistula); - PSHx: 16:39 Left arm fistula; ll1 - Immunization history:: Adult Immunizations up to date. - Infectious Disease History:: Denies. - Social history:: Smoking status: Patient denies any tobacco usage or history of. Screenin:00 [facility] ED Fall Risk Assessment (Adult) History of falling in the last 3 months, dd2 including since admission No falls in past 3 months (0 pts) Confusion or Disorientation No (0 pts) Intoxicated or Sedated No (0 pts) Impaired Gait No (0 pts) Mobility Assist Device Used No (0 pt) Altered Elimination No (0 pt) Score/Fall Risk Level 0 - 2 = Low Risk Oriented to surroundings, Maintained a safe environment, Hourly rounding (assess needs \T\ fall precautionary measures) done. Abuse screen: Denies threats or abuse. Nutritional screening: No deficits noted. Tuberculosis screening: No symptoms or risk factors identified. Assessment: 17:00 General: Appears in no apparent distress. Behavior is calm, cooperative, appropriate dd2 for age. Pain: Complains of pain in GROIN/TESTICAL Pain currently is 4 out of 10 on a pain scale. Quality of pain is described as sharp, shooting. Neuro: No deficits noted. Level of Consciousness is awake, alert, obeys commands, Oriented to person, place, time, situation. Cardiovascular: No deficits noted. Denies chest pain. Respiratory: No deficits noted. Airway is patent Respiratory effort is even, unlabored, Respiratory pattern is regular. GI: No deficits noted. No signs and/or symptoms were reported involving the gastrointestinal system. : No deficits noted. No signs and/or symptoms were reported regarding the genitourinary system. EENT: No deficits noted. No signs and/or symptoms were reported regarding the EENT system. Derm: No deficits noted. No signs and/or symptoms reported regarding the dermatologic system. Musculoskeletal: No deficits noted. No signs and/or symptoms reported regarding the musculoskeletal system. Vital Signs: 16:37 BP 177 / 77; Pulse 88; Resp 17; Temp 98.6; Pulse Ox 96% on R/A; Weight 104.33 kg; ll1 Height 5 ft. 9 in. ; Pain 6/10; 17:00 BP 152 / 82; Pulse 81; Resp 16; Pulse Ox 100% ; dd2 16:37 Body Mass Index 33.96 (104.33 kg, 175.26 cm) ll1 16:37 Pain Scale: Adult ll1 ED Course: 16:30 Patient arrived in ED. mg5 16:31 Urbano Uribe DO is Attending Physician. ms3 16:39 Triage completed. ll1 16:39 Arm band placed on Patient placed in an exam room, on a stretcher. ll1 16:51 JOCELYNN MILTON, RN is Primary Nurse. dd2 17:00 Patient has correct armband on for positive identification. Placed in gown. Bed in low dd2 position. Call light in reach. Side rails up X 1. Provided Education on: CALL LIGHT, PROCEDURES. 17:19 No provider procedures requiring assistance completed. Initial lab(s) drawn, by me, dd2 sent to lab. Inserted saline lock: 20 gauge in right antecubital area, using aseptic technique. Blood collected. Flushed with 10 mL NS. 17:23 CT Abd/Pelvis - Without Contrast In Process Unspecified. EDMS 17:41 US Scrotum Testicles In Process Unspecified. EDMS 18:03 Ori Gonzalez MD is Referral Physician. ms3 18:18 IV discontinued, intact, bleeding controlled, No redness/swelling at site. Pressure dd2 dressing applied. Administered Medications: No medications were administered Medication: 17:00 VIS not applicable for this client. dd2 Outcome: 18:03 Discharge ordered by MD. ms3 18:18 Discharged to home ambulatory, dd2 18:18 Condition: stable 18:18 Discharge instructions given to patient, Instructed on discharge instructions, follow up and referral plans. Demonstrated understanding of instructions, follow-up care, 18:18 Patient left the ED. dd2 Signatures: Dispatcher [employer] Gretta Curry, RN RN ll1 Urbano Uribe DO DO ms3 Arlene Giron mg5 JOCELYNN MILTON, RN RN dd2
--- NOTE | 2023-12-24 18:04 | EDPHYS ---
Physician Documentation [facility] Name: Chava Pate Age: 48 yrs Sex: Male : 1975 Arrival Date: 12/24/2023 Time: 16:27 Bed 5 Private MD: ED Physician Urbano Uribe HPI: 12/23 18:56 This 48 yrs old Male presents to ER via Ambulatory with complaints of Groin ms3 Pain. 18:56 48-year-old male with past medical history of congestive heart failure, end-stage renal ms3 disease, hypertension, insulin dependent diabetes mellitus, neuropathy presents emergency department for right groin pain that has been ongoing for 3 days. Patient states the pain is sharp and rated 6/10. He denies any alleviating or inciting factors.. Historical: - Allergies: 16:39 No Known Allergies; ll1 - PMHx: 16:39 Congestive heart failure; ESRD; Hypertension; IDDM; kidney failure (neuropathy); ll1 neuropathy; dialysis T, T, S (Left arm fistula); - PSHx: 16:39 Left arm fistula; ll1 - Immunization history:: Adult Immunizations up to date. - Infectious Disease History:: Denies. - Social history:: Smoking status: Patient denies any tobacco usage or history of. ROS: 18:56 Constitutional: Negative for fever, and chills. Cardiovascular: Negative for chest ms3 pain, and palpitations. Respiratory: Negative for shortness of breath, cough, wheezing, and pleuritic chest pain, 18:56 Abdomen/GI: Positive for Right groin pain, Exam: 18:56 Constitutional: This is a well developed, well nourished patient who is awake, alert, ms3 and in no acute distress. Chest/axilla: Normal chest wall appearance and motion. Nontender with no deformity. Cardiovascular: Regular rate and rhythm with a normal S1 and S2. No gallops, murmurs, or rubs. Normal PMI, no JVD. No pulse deficits. Respiratory: Lungs have equal breath sounds bilaterally, clear to auscultation and percussion. No rales, rhonchi or wheezes noted. No increased work of breathing, no retractions or nasal flaring. Abdomen/GI: Soft, non-tender, with normal bowel sounds. No distension or tympany. No guarding or rebound. No evidence of tenderness throughout. Skin: Warm, dry with normal turgor. Normal color with no rashes, no lesions, and no evidence of cellulitis. 18:56 : Male external genitalia: normal, no abrasion, no discharge, no erythema, no injury, no swelling, no tenderness, no evidence of ulceration, Bladder: is normal, non-distended, non-tender, Right scrotal pain, Vital Signs: 16:37 BP 177 / 77; Pulse 88; Resp 17; Temp 98.6; Pulse Ox 96% on R/A; Weight 104.33 kg; ll1 Height 5 ft. 9 in. ; Pain 6/10; 17:00 BP 152 / 82; Pulse 81; Resp 16; Pulse Ox 100% ; dd2 16:37 Body Mass Index 33.96 (104.33 kg, 175.26 cm) ll1 16:37 Pain Scale: Adult ll1 MDM: 16:46 Patient medically screened. ms3 18:56 Differential diagnosis: nonspecific abdominal pain, Hernia versus testicular torsion. ms3 Data reviewed: vital signs, nurses notes, lab test result(s), radiologic studies, and as a result, I will discharge patient. Care significantly affected by the following chronic conditions: Diabetes, Hypertension, Chronic Kidney Disease. Counseling: I had a detailed discussion with the patient and/or guardian regarding the historical points, exam findings, and any diagnostic results supporting the discharge/admit diagnosis, lab results, radiology results, the need for outpatient follow up, to return to the emergency department if symptoms worsen or persist or if there are any questions or concerns that arise at home. Special discussion: Based on the patient's Hx, exam, and Dx evaluation, there is no indication for emergent surgery or inpatient Tx. It is understood by the patient/guardian that if the Sx's persist or worsen they need to return immediately for re-evaluation. ED course: Discussed imaging and labs with patient. Patient to follow-up with Dr. Gonzalez in 2 to 3 days for hernia evaluation. All questions were answered. Return precautions discussed include worsening symptoms, or any other concerns. On reevaluation patient is alert and oriented x 4, no apparent distress, nontoxic-appearing, ambulatory in the emergency department. 12/23 16:45 Order name: CBC with Diff; Complete Time: 18:00 ms3 12/23 16:45 Order name: BMP; Complete Time: 18:00 ms3 12/23 16:45 Order name: US Scrotum Testicles; Complete Time: 18:00 ms3 12/23 16:45 Order name: CT Abd/Pelvis - Without Contrast; Complete Time: 18:00 ms3 Administered Medications: No medications were administered Disposition Summary: 12/24/23 18:03 Discharge Ordered Notes: Location: Home ms3 Condition: Stable ms3 Diagnosis - Unilateral inguinal hernia, without obstruction or gangrene ms3 Followup: ms3 - With: Ori Gonzalez MD - When: 2 - 3 days - Reason: Recheck today's complaints Discharge Instructions: - Discharge Summary Sheet ms3 - Inguinal Hernia, Adult, [id number] ms3 Forms: - Medication Reconciliation Form ms3 - Antibiotic Education ms3 - Prescription Opioid Use ms3 - Patient Portal Instructions ms3 - Leadership Thank You Letter ms3 Signatures: Dispatcher [employer] EDMS Gretta Contreras RN RN ll1 Urbano Uribe DO DO ms3 JOCELYNN MILTON RN RN dd2 Corrections: (The following items were deleted from the chart) 16:46 16:46 Scrotum Testicles+US.RAD.BRZ ordered. EDMS EDMS 16:46 16:46 Abdomen Pelvis Wo Con+CT.RAD.BRZ ordered. EDMS EDMS 16:46 16:46 CBC+H.LAB.BRZ ordered. EDMS EDMS 16:46 16:46 BASIC METABOLIC PANEL+C.LAB.BRZ ordered. EDMS EDMS 18:58 18:56 : Male external genitalia: normal, no abrasion, no discharge, no erythema, no ms3 injury, no swelling, no tenderness, no evidence of ulceration, Bladder: is normal, non-distended, non-tender, ms3
[2023-12-24 18:36] VITALS: TEMP 98.6
[2023-12-24 18:37] VITALS: BP 152/82; O2SAT 100
== END 2023-12-24 18:18 | disposition home or self-care (01) ==
LOC: ER 16:27
DX: K40.90 Unilateral inguinal hernia, without obstruction or gangrene, not specified as recurrent (principal); E11.22 Type 2 diabetes mellitus with diabetic chronic kidney disease; I13.2 Hypertensive heart and chronic kidney disease with heart failure and with stage 5 chronic kidney disease, or end stage renal disease; I50.9 Heart failure, unspecified; N18.6 End stage renal disease; Z99.2 Dependence on renal dialysis
CPT/HCPCS: 36415; 74176; 76870; 80048; 85025; 99283

== ENCOUNTER 2023-12-29 17:17 | Emergency (ER) | payer BC, OTHER ==
--- NOTE | 2023-12-29 18:38 | RAD REPORT ---
EXAM DESCRIPTION: CT - Abdomen Pelvis Wo Contrast - 12/29/2023 6:06 pm CLINICAL HISTORY: Abdominal pain COMPARISON: December 24, 2023 TECHNIQUE: Computed axial tomography of the abdomen and pelvis was obtained. IV and oral contrast we re not requested. All CT scans are performed using dose optimization technique as appropriate and may include automated exposure control or mA/KV adjustment according to patient size. FINDINGS: The evaluation of solid organs, vessels and bowel is limited secondary to the lack of con trast administration. The liver, spleen, pancreas, adrenals and kidneys appear grossly normal. The appendix is normal. There is no evidence of diverticulitis. No bowel obstruction Small right inguinal hernia contains fat. Cholecystectomy Small umbilical hernia IMPRESSION: No acute abnormality is displayed.
[2023-12-29 19:43] LABS: Absolute Basophils 0.2 K/uL (0-0.5); Absolute Eosinophils 0.6 K/uL (0-0.5); Absolute Lymphocytes (CBC) 2.2 K/uL (0.7-4.9); Absolute Neutrophil 10.6 K/uL (1.8-8.0); Basophils % 1.2 % (0-1.3); Eosinophils % 4.2 % (0-4.4); Hematocrit 26.4 % (39.6-49.0); Hemoglobin 9.2 g/dL (13.6-17.9); Lymphocytes % 14.9 % (15.3-44.8); MCH 31.9 pg (27.0-35.0); MCV 91.2 fL (80-100); Monocytes % 6.6 % (3.3-12.3); Neutrophils % 73.1 % (41.7-73.7); Platelets 253 thou/uL (152-406); Red Cell Distribution Width 13.5 % (12.1-15.2)
[2023-12-29 20:08] LABS: Albumin 3.4 g/dL (3.4-5.0); Albumin/Globulin Ratio 0.8 (1.1-1.8); Anion Gap 18.1 mEq/L (5.0-15.0); Bilirubin Total 0.4 mg/dL (0.2-1.0); Globulin 4.1 g/dL (2.3-3.5); Potassium 5.1 mEq/L (3.5-5.1); Protein, Total 7.5 g/dL (6.4-8.2)
--- NOTE | 2023-12-29 20:32 | ER ---
Nurse's Notes [facility] Name: Chava Pate Age: 48 yrs Sex: Male : 1975 Arrival Date: 12/29/2023 Time: 17:17 Bed 11 Private MD: Diagnosis: Slow transit constipation Presentation: 12/28 17:27 Chief complaint: Patient states: Has been having some bowel incontinence X3 weeks. Pt cm10 reports that he just doesn't feel good. Pt states that the incontinence only happens when he is sleeping. Pt also reporting constipation. Pt taking Mounjaro. Coronavirus screen: Client denies travel out of the [place] in the last 14 days. At this time, the client does not indicate any symptoms associated with coronavirus-19. Ebola Screen: Patient denies travel to an Ebola-affected area in the 21 days before illness onset. No symptoms or risks identified at this time. Initial Sepsis Screen: Does the patient meet any 2 criteria? HR > 90 bpm. Does the patient have a suspected source of infection? No. Patient's initial sepsis screen is negative. Risk Assessment: Do you want to hurt yourself or someone else? Patient reports no desire to harm self or others. Onset of symptoms was December 29, 2023. 17:27 Method Of Arrival: Ambulatory cm10 17:27 Acuity: EDINSON 3 cm10 Triage Assessment: 17:31 General: Appears in no apparent distress. comfortable, Behavior is calm, cooperative. cm10 Neuro: No deficits noted. Level of Consciousness is awake, alert, obeys commands, Oriented to person, place, time, situation, Appropriate for age. Historical: - Allergies: 17:29 No Known Allergies; cm10 - Home Meds: 20:45 Ambien Oral [Active]; losartan oral [Active]; Lasix Oral [Active]; gabapentin oral tl4 [Active]; carvedilol oral [Active]; - PMHx: 17:29 Congestive heart failure; ESRD; Hypertension; IDDM; neuropathy; kidney failure cm10 (neuropathy); 20:45 dialysis T; Tues, Thurs, Sat (Left arm fistula); tl4 - PSHx: 17:29 Left arm fistula; cm10 - Immunization history:: Adult Immunizations up to date. - Infectious Disease History:: Denies. - Social history:: Smoking status: Patient denies any tobacco usage or history of. Screenin:40 Abuse screen: Denies threats or abuse. Denies injuries from another. Nutritional ss screening: No deficits noted. Tuberculosis screening: Never had TB. 20:43 [facility] ED Fall Risk Assessment (Adult) History of falling in the last 3 months, tl4 including since admission No falls in past 3 months (0 pts) Confusion or Disorientation No (0 pts) Intoxicated or Sedated No (0 pts) Impaired Gait No (0 pts) Mobility Assist Device Used No (0 pt) Altered Elimination No (0 pt) Score/Fall Risk Level 0 - 2 = Low Risk Oriented to surroundings, Maintained a safe environment, Educated pt \T\ family on fall prevention, incl call for assistance when getting out of bed, Assessed \T\ reinforced patient's understanding of fall precautions. Assessment: 19:40 General: Appears in no apparent distress. comfortable, Behavior is calm, cooperative, ss Denies fever, feeling ill, fatigue, chills. Pain: Denies pain. Neuro: Level of Consciousness is awake, alert, obeys commands, Oriented to person, place, time, situation, Speech is normal. Respiratory: Airway is patent Respiratory effort is even, unlabored, Respiratory pattern is regular, symmetrical. GI: Reports CONSTIPATION X 1-2 DAYS. Also c/o incontinence of watery bowel x 2-3 weeks. EENT: Nares are clear Oral mucosa is moist. Derm: Skin is intact, is healthy with good turgor, Skin is pink, warm \T\ dry. normal. Vital Signs: 17:27 BP 162 / 87; Pulse 91; Resp 18; Temp 97.7(IR); Pulse Ox 97% on R/A; Pain 0/10; cm10 17:34 Weight 106.59 kg; Height 5 ft. 8 in. ; cm10 20:44 BP 149 / 76; Pulse 85; Resp 18; Temp 98.1(O); Pulse Ox 98% on R/A; tl4 17:34 Body Mass Index 35.73 (106.59 kg, 172.72 cm) cm10 17:27 Pain Scale: Adult cm10 ED Course: 17:19 Patient arrived in ED. jj6 17:20 Kate Martinez PA-C is PHCP. sb4 17:20 Ean Parisi MD is Attending Physician. sb4 17:29 Triage completed. cm10 17:31 Arm band placed on Patient placed in waiting room. cm10 18:08 CT Abd/Pelvis - Without Contrast In Process Unspecified. EDMS 19:38 CBC with Diff Sent. vk 19:38 CMP Sent. vk 19:38 Lipase Sent. vk 19:38 Initial lab(s) drawn, by me, sent to lab. vk 19:39 Missed attempt(s): 22 gauge in right antecubital area. vk 19:40 Patient has correct armband on for positive identification. ss 19:40 Inserted saline lock: 22 gauge in right antecubital area, using aseptic technique. ss Blood collected. Flushed with 10 mL NS. 19:42 CBC with Diff Sent. ss 19:42 CMP Sent. ss 19:42 Lipase Sent. ss 20:44 Provided Education on: call alexandra. tl4 20:44 No provider procedures requiring assistance completed. IV discontinued, intact, tl4 bleeding controlled, No redness/swelling at site. Pressure dressing applied. Administered Medications: No medications were administered Medication: 19:40 VIS not applicable for this client. ss Outcome: 20:31 Discharge ordered by . sb4 20:47 Discharged to home ambulatory, tl4 20:47 Condition: stable 20:47 Discharge instructions given to patient, Instructed on discharge instructions, follow up and referral plans. medication usage, Demonstrated understanding of instructions, follow-up care, medications, Prescriptions given X 1, 20:47 Patient left the ED. tl4 Signatures: Dispatcher [employer] EDMS Virginie Denton RN RN Iman Heath Sophia PAJacquelin PA-C sb4 Pina Dias, RN RN cm10 Tulio Dewey RN RN tl4 Natalee Tan Corrections: (The following items were deleted from the chart) 17:31 17:29 Allergies: dialysis on Tues; cm10 cm10 17:31 17:29 Allergies: dialysis on Tues; cm10 cm10 17:31 17:29 Allergies: dialysis on Tues; cm10 cm10 17:31 17:29 PMHx: dialysis T; Diaysis, T, TH, Sat (Left arm fistula); cm10 cm10 17:31 17:29 PMHx: dialysis T (Left arm fistula); cm10 cm10 17:31 17:29 PMHx: dialysis T (Left arm fistula); cm10 cm10 20:45 20:43 Discharged to home ambulatory, tl4 tl4 20:45 20:43 Condition: stable tl4 tl4 20:45 20:43 Discharge instructions given to patient, Instructed on discharge instructions, tl4 follow up and referral plans. medication usage, Demonstrated understanding of instructions, follow-up care, medications, Prescriptions given X 1, tl4 20:47 17:29 PMHx: Dialysis- T, TH, Sat; cm10 tl4 20:47 20:45 PMHx: dialysis T (Left arm fistula); tl4 tl4 20:47 20:45 PMHx: dialysis T (Left arm fistula); tl4 tl4 20:47 20:45 PMHx: dialysis T, T, S (Left arm fistula); tl4 tl4
--- NOTE | 2023-12-29 20:32 | EDPHYS ---
Physician Documentation [facility] Name: Chava Pate Age: 48 yrs Sex: Male : 1975 Arrival Date: 12/29/2023 Time: 17:17 Bed 11 Private MD: ED Physician Ean Parisi HPI: 12/28 17:38 This 48 yrs old Male presents to ER via Ambulatory with complaints of Doesn't sb4 Feel Right. 17:39 Patient reports not feeling right for the past couple of days. He states that over the sb4 past 3 weeks, he has had 3 episodes of bowel incontinence. States that he has been sleeping and woken up in a puddle of liquid. He states that he has not had a normal bowel movement in a very long time. He does report being on Mounjaro for about 3 months. Additionally, he states that he has a decrease sensation in his anus. He denies any trauma to the area. He denies any rectal pain, abdominal pain, nausea, vomiting. Historical: - Allergies: 17:29 No Known Allergies; cm10 - Home Meds: 20:45 Ambien Oral [Active]; losartan oral [Active]; Lasix Oral [Active]; gabapentin oral tl4 [Active]; carvedilol oral [Active]; - PMHx: 17:29 Congestive heart failure; ESRD; Hypertension; IDDM; neuropathy; kidney failure cm10 (neuropathy); 20:45 dialysis T; Tues, Thurs, Sat (Left arm fistula); tl4 - PSHx: 17:29 Left arm fistula; cm10 - Immunization history:: Adult Immunizations up to date. - Infectious Disease History:: Denies. - Social history:: Smoking status: Patient denies any tobacco usage or history of. ROS: 17:39 Constitutional: Negative for fever, chills, and weight loss, sb4 17:39 Abdomen/GI: Positive for constipation, bowel incontinence, 17:39 All other systems are negative, Exam: 17:39 Constitutional: This is a well developed, well nourished patient who is awake, alert, sb4 and in no acute distress. Head/Face: Normocephalic, atraumatic. Eyes: Extra-ocular motions intact. Periorbital areas with no swelling, redness, or edema. ENT: Mucous membranes moist. Cardiovascular: Regular rate and rhythm with a normal S1 and S2. Respiratory: Lungs have equal breath sounds bilaterally, clear to auscultation and percussion. No rales, rhonchi or wheezes noted. No increased work of breathing, no retractions or nasal flaring. Skin: Warm, dry with normal turgor. Normal color with no rashes, no lesions, and no evidence of cellulitis. 17:39 Abdomen/GI: Inspection: abdomen appears normal, Bowel sounds: hyperactive, in the right lower quadrant and left lower quadrant, Palpation: abdomen is soft and non-tender, 20:30 : Rectal exam: Rectal tone: normal, Perineal sensation Normal hemorrhoid(s), are not sb4 appreciated, mass, is not appreciated, fissure, is not appreciated, the hazardous waste technician was present for the exam, Vital Signs: 17:27 BP 162 / 87; Pulse 91; Resp 18; Temp 97.7(IR); Pulse Ox 97% on R/A; Pain 0/10; cm10 17:34 Weight 106.59 kg; Height 5 ft. 8 in. ; cm10 20:44 BP 149 / 76; Pulse 85; Resp 18; Temp 98.1(O); Pulse Ox 98% on R/A; tl4 17:34 Body Mass Index 35.73 (106.59 kg, 172.72 cm) cm10 17:27 Pain Scale: Adult cm10 MDM: 17:24 Patient medically screened. sb4 20:31 Data reviewed: vital signs, nurses notes, lab test result(s), radiologic studies, and sb4 as a result, I will discharge patient. Counseling: I had a detailed discussion with the patient and/or guardian regarding the historical points, exam findings, and any diagnostic results supporting the discharge/admit diagnosis, lab results, radiology results, to return to the emergency department if symptoms worsen or persist or if there are any questions or concerns that arise at home. 12/28 17:35 Order name: CBC with Diff; Complete Time: 19:46 sb4 12/28 17:35 Order name: CMP; Complete Time: 20:11 sb4 12/28 17:35 Order name: Lipase; Complete Time: 20:11 sb4 12/28 17:35 Order name: CT Abd/Pelvis - Without Contrast; Complete Time: 18:40 sb4 12/28 17:35 Order name: IV Saline Lock; Complete Time: 19:42 sb4 12/28 17:35 Order name: Labs collected and sent; Complete Time: 19:42 sb4 Administered Medications: No medications were administered Disposition Summary: 12/29/23 20:31 Discharge Ordered Notes: Location: Home sb4 Problem: new sb4 Symptoms: are unchanged sb4 Condition: Stable sb4 Diagnosis - Slow transit constipation sb4 Followup: sb4 - With: Private Physician - When: As needed - Reason: Recheck today's complaints, Re-evaluation by your physician Discharge Instructions: - Discharge Summary Sheet sb4 - Constipation, Adult, Fcod-ag-Clig sb4 Forms: - Patient Portal Instructions sb4 - Leadership Thank You Letter sb4 Prescriptions: - bisacodyl 5 mg Oral tablet, delayed release (enteric coated) - take 1 tablet ORAL route daily; 30 tablet; Refills: 0, Product Selection sb4 Permitted Signatures: Dispatcher [employer] EDKate Magallon PA-C PA-C sb4 Pina Dias RN RN cm10 Tulio Dewey RN RN tl4 Corrections: (The following items were deleted from the chart) 17:31 17:29 Allergies: dialysis on Tues; cm10 cm10 17:31 17:29 Allergies: dialysis on Tues; cm10 cm10 17:31 17:29 Allergies: dialysis on Tues; cm10 cm10 17:31 17:29 PMHx: dialysis T; Diaysis, T, TH, Sat (Left arm fistula); cm10 cm10 17:31 17:29 PMHx: dialysis T (Left arm fistula); cm10 cm10 17:31 17:29 PMHx: dialysis T (Left arm fistula); cm10 cm10 20:47 17:29 PMHx: Dialysis- T, TH, Sat; cm10 tl4 20:47 20:45 PMHx: dialysis T (Left arm fistula); tl4 tl4 20:47 20:45 PMHx: dialysis T (Left arm fistula); tl4 tl4 20:47 20:45 PMHx: dialysis T, T, S (Left arm fistula); tl4 tl4
[2023-12-29 21:34] VITALS: BP 149/76; TEMP 98.1; O2SAT 98
== END 2023-12-29 20:47 | disposition home or self-care (01) ==
LOC: ER 17:17
DX: K59.01 Slow transit constipation (principal); R32 Unspecified urinary incontinence; E11.22 Type 2 diabetes mellitus with diabetic chronic kidney disease; I13.2 Hypertensive heart and chronic kidney disease with heart failure and with stage 5 chronic kidney disease, or end stage renal disease; I50.9 Heart failure, unspecified; N18.6 End stage renal disease; Z99.2 Dependence on renal dialysis
CPT/HCPCS: 36415; 74176; 80053; 83690; 85025; 99284

== ENCOUNTER 2023-12-31 10:23 | Inpatient (IN) | payer BC, OTHER ==
[2023-12-31 11:21] LABS: Absolute Basophils 0.1 K/uL (0-0.5); Absolute Eosinophils 0.4 K/uL (0-0.5); Absolute Lymphocytes (CBC) 1.6 K/uL (0.7-4.9); Absolute Monocytes 0.7 K/uL (0.1-1.3); Absolute Neutrophil 6.7 K/uL (1.8-8.0); Basophils % 1.3 % (0-1.3); Eosinophils % 4.6 % (0-4.4); Hematocrit 24.5 % (39.6-49.0); Hemoglobin 8.4 g/dL (13.6-17.9); Lymphocytes % 17.1 % (15.3-44.8); MCH 31.5 pg (27.0-35.0); MCHC 34.4 g/dL (32.0-36.0); MCV 91.6 fL (80-100); MPV 7.4 fL (7.6-11.3); Monocytes % 7.5 % (3.3-12.3); Neutrophils % 69.5 % (41.7-73.7); Platelets 230 thou/uL (152-406); RBC Red Blood Cell Count 2.67 M/uL (4.33-5.43); Red Cell Distribution Width 13.2 % (12.1-15.2)
[2023-12-31 11:24] LABS: PT Prothrombin Time 12.5 SECONDS (9.4-12.5); Protime INR 1.12
[2023-12-31 11:42] LABS: ALT/SGPT 21 U/L (16-61); AST/SGOT 16 U/L (15-37); Albumin 3.2 g/dL (3.4-5.0); Albumin/Globulin Ratio 0.8 (1.1-1.8); Alkaline Phosphatase 82 U/L (45-117); Anion Gap 13.5 mEq/L (5.0-15.0); BUN Blood Urea Nitrogen 46 mg/dL (7-18); Bicarbonate 24 mEq/L (21-32); Bilirubin Total 0.5 mg/dL (0.2-1.0); Globulin 4.1 g/dL (2.3-3.5); Glomerular Filtration Rate 7 ml/min (=/>90); Glucose Level 164 mg/dL (74-106); Lipase 38 U/L (13-75); Magnesium 1.9 mg/dL (1.6-2.4); NT PRO-BNP 14217 pg/mL (<125); Potassium 4.5 mEq/L (3.5-5.1); Protein, Total 7.3 g/dL (6.4-8.2); Sodium Level 130 mEq/L (136-145)
[2023-12-31 11:43] LABS: Bilirubin Direct < 0.2 mg/dL (0-0.2); Bilirubin Indirect, Calculated 0.3 mg/dL (0.2-0.8)
[2023-12-31 11:44] LABS: Troponin High Sensitivity 3384.4 pg/mL (<58.9)
[2023-12-31 11:53] LABS: SARS-CoV-2 Antigen CONTROL BLUE LINE VIS/BG OK; SARS-CoV-2 Antigen Rapid Res Negative (Negative)
[2023-12-31] MEDS ORDERED: HEPARIN 5000 UNIT/ML 1 ML VIAL ONE (12:30)
[2023-12-31] MEDS ORDERED: ASPIRIN 81 MG CHEWABLE TABLET ONE (12:30)
[2023-12-31] MEDS ORDERED: FAMOTIDINE 20 MG/2 ML VIAL IV ONE (12:30)
[2023-12-31] MEDS ORDERED: HEPARIN/D5W 25,000 UNIT/500 ML BAG IV ONE (12:31)
--- NOTE | 2023-12-31 13:29 | RAD REPORT ---
EXAM DESCRIPTION: Champ Single View12/31/2023 1:17 pm CLINICAL HISTORY: Cough COMPARISON: September 2023 FINDINGS: The lungs appear clear of acute infiltrate. The heart is upper limits normal size IMPRESSION: No acute abnormalities displayed
--- NOTE | 2023-12-31 14:15 | ER ---
Nurse's Notes [facility] Name: Chava Pate Age: 48 yrs Sex: Male : 1975 Arrival Date: 12/31/2023 Time: 10:23 Bed 17 Private MD: Diagnosis: Weakness;Type 1 diabetes mellitus with hyperglycemia;Essential (primary) hypertension;Non ST elevation [place];Obesity, unspecified;Anemia in chronic kidney disease Presentation: 12/30 10:44 Chief complaint: Patient states: I don't feel right, I fell light headed since iw yesterday , I'm a dialysis pt, I stayed in bed all day yesterday , feels disoriented and does not have an appetite. 10:44 Method Of Arrival: Ambulatory iw 10:44 Acuity: EDINSON 3 iw 10:46 Coronavirus screen: Client presents with at least one sign or symptom that may indicate iw coronavirus-19. Initial Sepsis Screen: Does the patient meet any 2 criteria? No. Patient's initial sepsis screen is negative. Does the patient have a suspected source of infection? No. Patient's initial sepsis screen is negative. Risk Assessment: Do you want to hurt yourself or someone else? Patient reports no desire to harm self or others. 10:46 Ebola Screen: No symptoms or risks identified at this time. Onset of symptoms was iw December 30, 2023. Historical: - Allergies: 10:47 No Known Allergies; iw - PMHx: 10:47 Congestive heart failure; ESRD; Hypertension; IDDM; kidney failure (neuropathy); iw neuropathy; - PSHx: 10:47 Left arm fistula; iw - Immunization history:: Adult Immunizations up to date. - Infectious Disease History:: Denies. - Social history:: Smoking status: Smoking status: Patient denies any tobacco usage or history of. - Family history:: not pertinent. Screenin:08 [facility] ED Fall Risk Assessment (Adult) History of falling in the last 3 months, ko1 including since admission No falls in past 3 months (0 pts) Confusion or Disorientation No (0 pts) Intoxicated or Sedated No (0 pts) Impaired Gait No (0 pts) Mobility Assist Device Used No (0 pt) Altered Elimination No (0 pt) Score/Fall Risk Level 0 - 2 = Low Risk Oriented to surroundings, Maintained a safe environment, Educated pt \T\ family on fall prevention, incl call for assistance when getting out of bed, Assessed \T\ reinforced patient's understanding of fall precautions, Provided non-skid footwear, Hourly rounding (assess needs \T\ fall precautionary measures) done. Abuse screen: Denies threats or abuse. Denies injuries from another. Nutritional screening: No deficits noted. Tuberculosis screening: No symptoms or risk factors identified. Assessment: 12:08 General: Appears in no apparent distress. comfortable, Behavior is calm, cooperative, ko1 appropriate for age. Pain: Denies pain. Neuro: No deficits noted. Cardiovascular: No deficits noted. Cardiovascular: Reports lightheadedness. Respiratory: No deficits noted. GI: Reports intolerance of food. : No deficits noted. EENT: No deficits noted. Derm: No deficits noted. Musculoskeletal: No deficits noted. 13:17 Reassessment: Patient appears in no apparent distress at this time. No changes from ld1 previously documented assessment. Patient and/or family updated on plan of care and expected duration. Pain level reassessed. Patient is alert, oriented x 3, equal unlabored respirations, skin warm/dry/pink. 15:25 Reassessment: Patient appears in no apparent distress at this time. No changes from ld1 previously documented assessment. Patient and/or family updated on plan of care and expected duration. Pain level reassessed. Patient is alert, oriented x 3, equal unlabored respirations, skin warm/dry/pink. Vital Signs: 10:46 BP 130 / 79; Pulse 77; Resp 16; Temp 97; Pulse Ox 97% on R/A; Weight 106.59 kg; Height iw 5 ft. 8 in. ; Pain 0/10; 12:12 BP 145 / 74; Pulse 77; Resp 16; Pulse Ox 99% ; ko1 13:17 BP 159 / 75; Pulse 76; Resp 18; Pulse Ox 96% on R/A; ld1 14:00 BP 151 / 73; Pulse 77; Resp 18; Pulse Ox 100% on R/A; ld1 15:25 BP 151 / 70; Pulse 94; Resp 18; Pulse Ox 98% on R/A; ld1 10:46 Body Mass Index 35.73 (106.59 kg, 172.72 cm) iw 10:46 Pain Scale: Adult iw ED Course: 10:27 Patient arrived in ED. ra3 10:38 Elijah Ruiz MD is Attending Physician. dennis 10:45 Triage completed. iw 10:47 Arm band placed on. iw 11:12 SARS RAPID Sent. bc6 11:12 Lipase Sent. bc6 11:12 Flu Sent. bc6 11:13 Basic Metabolic Panel Sent. bc6 11:13 CBC with Diff Sent. bc6 11:13 LFT's Sent. bc6 11:13 Magnesium Sent. bc6 11:13 NT PRO-BNP Sent. bc6 11:13 PT-INR Sent. bc6 11:13 Troponin HS Sent. bc6 11:13 Initial lab(s) drawn, by me, sent to lab. Inserted saline lock: 20 gauge in right bc6 antecubital area, using aseptic technique. Blood collected. Flushed with 10 mL NS. 11:52 Latasha Walsh, RN is Primary Nurse. iw 12:08 Patient has correct armband on for positive identification. Bed in low position. Call ko1 light in reach. Side rails up X 1. Provided Education on: labs. Client placed on continuous cardiac and pulse oximetry monitoring. NIBP monitoring applied. telemetry monitor on. Door closed. Noise minimized. Lights dimmed. Warm blanket given. Pillow given. 13:01 Ptt, Activated Sent. ld1 13:18 XRAY Chest (1 view) In Process Unspecified. EDMS 14:13 Dudley Ruiz MD is Hospitalizing Provider. dennis 15:23 CM met with patient at the bedside in the ED exam room. Patient identified by name and ane . Demographic sheet confirmed and changes sent to appropriate personnel. Mr. Pate states he lives with family in a single story home. He reports that prior to admission, he performs ADLs independently and without physical limitations. No HH, home oxygen or DME in the household. Patient reports he receives dialysis services on Tuesdays, and Saturdays, through [facility]. His preferred plan is to return home upon discharge and states Olga, his sister can transport him home. CM team will continue to follow and coordinate care. Administered Medications: 12:14 CANCELLED (Duplicate Order): ns 0.9% 1000 ml IV at 1 bolus Per protocol; 1000 mL bolus dennis 12:45 Drug: Aspirin PO Chewable Tablet 324 mg PO once; 81 mg tablets x 4 Route: PO; ko1 12:45 Drug: Famotidine IVP 20 mg IVP once; dilute with 10 mL 0.9% NaCl; give over 2 minutes ko1 Route: IVP; Site: right antecubital; 12:55 Drug: Heparin ([place]-Bolus No thrombolytic) - HEParin IVP 60 units/kg IVP once; Max 5000 ld1 units {Co-Signature: kaia (Grace Egan RN).} Route: IVP; Site: right antecubital; 12:57 Drug: Heparin ([place] Drip) 12 units/kg/[place] - ([place] [address] units, D5W IV 500 ml) IV at ld1 calculated rate Per protocol; Max initial rate 1000 units/hr {Co-Signature: kaia (Grace Egan RN).} Route: IV; Rate: calculated rate; Site: right antecubital; 14:24 Drug: Clopidogrel PO 150 mg PO once Route: PO; ld1 Medication: 12:08 VIS not applicable for this client. ko1 Outcome: 14:14 Decision to Hospitalize by Provider. dennis 17:19 Patient left the ED. ld1 Signatures: Dispatcher [employer] EDMS Elijah Ruiz MD MD cha Williams, Irene, MARCELA MEDRANO iw Carol Uribe RN RN ld1 Grace Egan, MARCELA MEDRANO ko1 Carmelita Gilbert6 Yi Rayo ra3 Monique Chairez RN RN ane Oliver, Kathy RN ko1 Corrections: (The following items were deleted from the chart) 10:46 10:44 Chief complaint: Patient states: I don't feel right, I fell light headed since iw yesterday , I'm a dialysis pt, I stayed in bed all day yesterday iw 10:48 10:46 BP 130 / 79; Pulse 77bpm; Resp 16bpm; Pulse Ox 97% RA; Temp 97F; iw iw
--- NOTE | 2023-12-31 14:15 | EDPHYS ---
Physician Documentation [facility] Name: Chava Pate Age: 48 yrs Sex: Male : 1975 Arrival Date: 12/31/2023 Time: 10:23 Bed 17 Private MD: ED Physician Elijah Ruiz HPI: 12/30 14:08 This 48 yrs old Male presents to ER via Ambulatory with complaints of dennis Decreased Appetite - lightheaded. 14:08 weak, fatigue , no cp. Onset: The symptoms/episode began/occurred 3 day(s) ago. dennis Severity of symptoms: At their worst the symptoms were mild moderate in the emergency department the symptoms are unchanged. The patient has experienced similar episodes in the past, a few times. Historical: - Allergies: :48 No Known Allergies; iw - PMHx: :47 Congestive heart failure; ESRD; Hypertension; IDDM; kidney failure (neuropathy); iw neuropathy; - PSHx: 10:47 Left arm fistula; iw - Immunization history:: Adult Immunizations up to date. - Infectious Disease History:: Denies. - Social history:: Smoking status: Smoking status: Patient denies any tobacco usage or history of. - Family history:: not pertinent. ROS: 14:08 Constitutional: Negative for fever, chills, and weight loss, Eyes: Negative for injury, dennis pain, redness, and discharge, ENT: Negative for injury, pain, and discharge, Neck: Negative for injury, pain, and swelling, Cardiovascular: Negative for chest pain, palpitations, and edema, Respiratory: Negative for shortness of breath, cough, wheezing, and pleuritic chest pain, Abdomen/GI: Negative for abdominal pain, nausea, vomiting, diarrhea, and constipation, Back: Negative for injury and pain, : Negative for injury, bleeding, discharge, and swelling, MS/Extremity: Negative for injury and deformity, Skin: Negative for injury, rash, and discoloration, Psych: Negative for depression, anxiety, suicide ideation, homicidal ideation, and hallucinations, Allergy/Immunology: Negative for hives, rash, and allergies, Endocrine: Negative for neck swelling, polydipsia, polyuria, polyphagia, and marked weight changes, Hematologic/Lymphatic: Negative for swollen nodes, abnormal bleeding, and unusual bruising, 14:08 Neuro: Positive for dizziness, weakness, Exam: 14:08 Constitutional: This is a well developed, well nourished patient who is awake, alert, dennis and in no acute distress. Head/Face: Normocephalic, atraumatic. Eyes: Pupils equal round and reactive to light, extra-ocular motions intact. Lids and lashes normal. Conjunctiva and sclera are non-icteric and not injected. Cornea within normal limits. Periorbital areas with no swelling, redness, or edema. ENT: Nares patent. No nasal discharge, no septal abnormalities noted. Tympanic membranes are normal and external auditory canals are clear. Oropharynx with no redness, swelling, or masses, exudates, or evidence of obstruction, uvula midline. Mucous membranes moist. Neck: Trachea midline, no thyromegaly or masses palpated, and no cervical lymphadenopathy. Supple, full range of motion without nuchal rigidity, or vertebral point tenderness. No Meningismus. Chest/axilla: Normal chest wall appearance and motion. Nontender with no deformity. No lesions are appreciated. Cardiovascular: Regular rate and rhythm with a normal S1 and S2. No gallops, murmurs, or rubs. Normal PMI, no JVD. No pulse deficits. Respiratory: Lungs have equal breath sounds bilaterally, clear to auscultation and percussion. No rales, rhonchi or wheezes noted. No increased work of breathing, no retractions or nasal flaring. Abdomen/GI: Soft, non-tender, with normal bowel sounds. No distension or tympany. No guarding or rebound. No evidence of tenderness throughout. Back: No spinal tenderness. No costovertebral tenderness. Full range of motion. Male : Normal genitalia with no discharge or lesions. Skin: Warm, dry with normal turgor. Normal color with no rashes, no lesions, and no evidence of cellulitis. MS/ Extremity: Pulses equal, no cyanosis. Neurovascular intact. Full, normal range of motion. Neuro: Awake and alert, GCS 15, oriented to person, place, time, and situation. Cranial nerves II-XII grossly intact. Motor strength 5/5 in all extremities. Sensory grossly intact. Cerebellar exam normal. Normal gait. Psych: Awake, alert, with orientation to person, place and time. Behavior, mood, and affect are within normal limits. 14:08 ECG was reviewed by the Attending Physician. Vital Signs: 10:46 BP 130 / 79; Pulse 77; Resp 16; Temp 97; Pulse Ox 97% on R/A; Weight 106.59 kg; Height iw 5 ft. 8 in. ; Pain 0/10; 12:12 BP 145 / 74; Pulse 77; Resp 16; Pulse Ox 99% ; ko1 13:17 BP 159 / 75; Pulse 76; Resp 18; Pulse Ox 96% on R/A; ld1 14:00 BP 151 / 73; Pulse 77; Resp 18; Pulse Ox 100% on R/A; ld1 15:25 BP 151 / 70; Pulse 94; Resp 18; Pulse Ox 98% on R/A; ld1 10:46 Body Mass Index 35.73 (106.59 kg, 172.72 cm) iw 10:46 Pain Scale: Adult iw MDM: 10:49 Patient medically screened. [facility] 14:10 Differential Diagnosis altered mental status, sepsis, flu. Data reviewed: vital signs, [facility] nurses notes, lab test result(s), EKG, radiologic studies, plain films. Consideration of Admission/Observation Escalation of care including admission/observation considered. I considered the following discharge prescriptions or medication management in the emergency department Medications were administered in the Emergency Department. See MAR. Independent interpretation of the following test(s) in the Emergency Department EKG: See my EKG interpretation above. Test considered but Not performed: CT: no ct chest. Historians other than the Patient: pt well informed. Care significantly affected by the following chronic conditions: Diabetes, Hypertension, Congestive Heart Failure, Obesity. Counseling: I had a detailed discussion with the patient and/or guardian regarding the historical points, exam findings, and any diagnostic results supporting the discharge/admit diagnosis, lab results, radiology results, the need for further work-up and treatment in the hospital. 12/30 10:39 Order name: Basic Metabolic Panel; Complete Time: 12:12 [facility] 12/30 10:39 Order name: CBC with Diff; Complete Time: 12:12 [facility] 12/30 10:39 Order name: LFT's; Complete Time: 12:12 [facility] 12/30 10:39 Order name: Magnesium; Complete Time: 12:12 [facility] 12/30 10:39 Order name: NT PRO-BNP; Complete Time: 12:12 [facility] 12/30 10:39 Order name: PT-INR; Complete Time: 12:12 [facility] 12/30 10:39 Order name: Troponin HS; Complete Time: 12:12 [facility] 12/30 10:39 Order name: Lipase; Complete Time: 12:12 [facility] 12/30 10:39 Order name: Flu; Complete Time: 12:12 [facility] 12/30 10:39 Order name: SARS RAPID; Complete Time: 12:12 [facility] 12/30 10:39 Order name: Urinalysis w/ reflexes [facility] 12/30 12:38 Order name: Ptt, Activated; Complete Time: 13:45 ko1 12/30 10:39 Order name: XRAY Chest (1 view); Complete Time: 13:45 [facility] 12/30 10:39 Order name: EKG; Complete Time: 10:39 [facility] 12/30 10:39 Order name: Cardiac monitoring; Complete Time: 12:00 [facility] 12/30 10:39 Order name: EKG - Nurse/Tech; Complete Time: 11:37 [facility] 12/30 10:39 Order name: IV Saline Lock; Complete Time: 11:12 [facility] 12/30 10:39 Order name: Labs collected and sent; Complete Time: 11:13 [facility] 12/30 10:39 Order name: O2 Per Protocol; Complete Time: 12:00 [facility] 12/30 10:39 Order name: O2 Sat Monitoring; Complete Time: 12:00 [facility] EC:08 Rate is 75 beats/min. Rhythm is regular. QRS [place] is Normal. AL interval is normal. QRS dennis interval is normal. QT interval is normal. No Q waves. T waves are Normal. No ST changes noted. Clinical impression: NSR w/ Non-specific ST/T Changes and No evidence of ischemia. Interpreted by me. Reviewed by me. Administered Medications: 12:14 CANCELLED (Duplicate Order): ns 0.9% 1000 ml IV at 1 bolus Per protocol; 1000 mL bolus dennis 12:45 Drug: Aspirin PO Chewable Tablet 324 mg PO once; 81 mg tablets x 4 Route: PO; ko1 12:45 Drug: Famotidine IVP 20 mg IVP once; dilute with 10 mL 0.9% NaCl; give over 2 minutes ko1 Route: IVP; Site: right antecubital; 12:55 Drug: Heparin (AZ-Bolus No thrombolytic) - HEParin IVP 60 units/kg IVP once; Max 5000 ld1 units {Co-Signature: ko1 (Grace Egan RN).} Route: IVP; Site: right antecubital; 12:57 Drug: Heparin ([place] Drip) 12 units/kg/hr - ([place] [address] units, D5W IV 500 ml) IV at ld1 calculated rate Per protocol; Max initial rate 1000 units/hr {Co-Signature: kaia (Grace Egan RN).} Route: IV; Rate: calculated rate; Site: right antecubital; 14:24 Drug: Clopidogrel PO 150 mg PO once Route: PO; ld1 Disposition Summary: 12/31/23 14:14 Hospitalization Ordered Notes: Hospitalization Status: Inpatient Admission dennis Provider: Dudley Ruiz cha Condition: Fair dennis Problem: new dennis Symptoms: have improved dennis Bed/Room Type: Standard dennis Location: Telemetry/MedSurg (Inpatient)(12/31/23 15:06) bd Room Assignment: 405(12/31/23 15:38) bd Diagnosis - Weakness dennis - Type 1 diabetes mellitus with hyperglycemia dennis - Essential (primary) hypertension dennis - Non ST elevation [place] dennis - Obesity, unspecified dennis - Anemia in chronic kidney disease dennis Forms: - Medication Reconciliation Form dennis - SBAR form dennis - Leadership Thank You Letter dennis Signatures: Dispatcher [employer] EDMS Kita Calixto Corey, MD MD cha Williams, Irene, RN Carol Ward RN RN ld1 Grace Egan RN RN ko1 Grace Egan RN ko1 Corrections: (The following items were deleted from the chart) 10:40 10:39 BASIC METABOLIC PANEL+C.LAB.BRZ ordered. EDMS EDMS 10:40 10:39 CBC+H.LAB.BRZ ordered. EDMS EDMS 10:40 10:39 HEPATIC FUNCTION+C.LAB.BRZ ordered. EDMS EDMS 10:40 10:39 MAGNESIUM+C.LAB.BRZ ordered. EDMS EDMS 10:40 10:39 PROBNP+C.LAB.BRZ ordered. EDMS EDMS 10:40 10:39 PROTIME (+INR)+COAG.LAB.BRZ ordered. EDMS EDMS 10:40 10:39 Troponin High Sensitivity+C.LAB.BRZ ordered. EDMS EDMS 10:40 10:39 LIPASE+C.LAB.BRZ ordered. EDMS EDMS 10:40 10:39 Influenza Screen (A \T\ B)+BA.LAB.BRZ ordered. EDMS EDMS 10:40 10:39 SARS-COV-2 Antigen Rapid+I.LAB.BRZ ordered. EDMS EDMS 12:14 10:39 NS 0.9% IV 1000 ml IV at 1 bolus Per protocol; 1000 mL bolus ordered. dennis dennis 12:14 12:04 NS 0.9% IV 1000 ml IV at 1 bolus Per protocol; 1000 mL bolus ordered. dennis 15:06 14:14 Intensive Care Unit dennis bd 15:06 14:14 dennis bd 15:38 15:06 403 bd bd
[2023-12-31] MEDS ORDERED: CLOPIDOGREL 75 MG TABLET ONE (14:19)
--- NOTE | 2023-12-31 15:03 | P.HP ---
Certification for Inpatient Patient admitted to: Inpatient With expected LOS: >2 Midnights Patient will require the following post-hospital care: None Practitioner: I am a practitioner with admitting privileges, knowledge of patient current condition, hospital course, and medical plan of care. Services: Services provided to patient in accordance with Admission requirements found in Title 42 Section 412.3 of the Code of Federal Regulations Patient History Date of Service: 12/31/23 Reason for admission: NSTEMI History of Present Illness: 48-year-old male with history of ESRD on HD TTS, [id number] diabetes, hypertension, chronic diastolic congestive heart failure presents the emergency department with chief complaint of feeling unwell for the past couple of days, lightheaded especially with ambulation. He was evaluated in the emergency department and his labs were significant for markedly elevated high sensitive troponin 3384.4, BNP 14,217. Per chart review he has never had a positive troponin at our facility, he denies any active chest pain or shortness of breath, EKG without STEMI criteria present. ED provider wishes to admit patient to the hospital for further management of NSTEMI. He was started on a heparin drip and given aspirin, Plavix in the ED. Allergies No Known Allergies Allergy (Verified 06/19/23 12:41) Home Medications: Gabapentin [Neurontin*] 100 mg PO BID 30 Days #90 cap 09/26/21 Blood Sugar Diagnostic [Glucose Test Strip] 1 each MC 30 MIN BEFORE HS #100 strip 12/17/21 Diabetic Supplies,Miscell [Cequr Simplicity Seismograph Chief] 1 each MC DAILY 30 Days 12/17/21 Furosemide [Lasix*] 40 mg PO BIDL #60 tab 12/17/21 Insulin Glargine,Hum.rec.anlog [Semglee] 20 unit SQ BEDTIME #10 ml 12/17/21 Lancets/Blood Glucose Strips [[facility] Lancet 30G-Gluc Tst Strp] 1 each MC 30 MIN BEFORE HS #100 strip 12/17/21 Amlodipine [Norvasc*] 10 mg PO DAILY 30 Days #30 tab 02/18/22 Calcium Acetate [Phoslo*] 667 mg PO TIDWM 30 Days #90 tab 02/18/22 Omeprazole [Prilosec] 40 mg PO DAILY 30 Days #30 cap 02/18/22 Losartan Potassium [Cozaar*] 100 mg PO DAILY #60 tab 08/08/22 Aspirin [Aspirin EC 81 MG] 81 mg PO DAILY 01/29/23 Rivaroxaban [Xarelto] 2.5 mg PO DAILY 01/29/23 Sevelamer Carbonate [Renvela] 800 mg PO DAILY 01/29/23 carvediloL [Coreg*] 25 mg PO BID 01/29/23 levoFLOXacin [Levaquin] 750 mg PO DAILY 7 Days #7 tab 05/12/23 - Past Medical/Surgical History Diabetic: Yes -: DM II with Polyneuropathy -: HLD -: HTN -: ESRD/ CKD with Proteinura (Dr. Rojas) -: Diastolic CHF -: Left arm Fistula Psychosocial/ Personal History: Patient lives at home alone. - Family History Father -: Diabetes Mother -: Stroke - Social History Alcohol use: Yes CD- Drugs: No Caffeine use: No Place of Residence: Home Review of Systems 10-point ROS is otherwise unremarkable General: Malaise Cardiovascular: Light Headedness Physical Examination - Physical Exam General: Alert, In no apparent distress, Oriented x3 HEENT: Atraumatic, PERRLA, Mucous membr. moist/pink, EOMI Neck: Supple, 2+ carotid pulse no bruit, No LAD Respiratory: Clear to auscultation bilaterally, Normal air movement Cardiovascular: Regular rate/rhythm, Normal S1 S2 Gastrointestinal: Normal bowel sounds, No tenderness Musculoskeletal: No tenderness Integumentary: No rashes Neurological: Normal speech, Normal strength at 5/5 x4 extr, Normal tone - Studies Laboratory Data (last 24 hrs) 12/31/23 12/31/23 12/31/23 11:11 11:11 11:11 WBC 9.60 Hgb 8.4 L Hct 24.5 L Plt Count 230 PT 12.5 INR 1.12 APTT 31.9 Sodium Potassium BUN Creatinine Glucose Magnesium Total Bilirubin AST ALT Alkaline Phosphatase Lipase 12/31/23 11:11 WBC Hgb Hct Plt Count PT INR APTT Sodium 130 L Potassium 4.5 BUN 46 H Creatinine 8.87 H Glucose 164 H Magnesium 1.9 Total Bilirubin 0.5 AST 16 ALT 21 Alkaline Phosphatase 82 Lipase 38 Microbiology Data (last 24 hrs): 12/31/23 11:11 Nasopharnyx Influenza Type A Antigen Screen - Final 12/31/23 11:11 Nasopharnyx Influenza Type B Antigen Screen - Final Assessment and Plan - Plan Assessment: NSTEMI ESRD on HD TTS Diabetes mellitus type [id number] Hypertension Plan: NSTEMI Continue heparin drip, telemetry, trend troponins Cardiology consultation, n.p.o. after midnight Denies active chest pain, shortness of breath EKG without STEMI criteria Continue aspirin, statin, heparin Had right heart catheterization in July of this year, does not believe he has had a left heart cath before ESRD on HD TTS Completed HD 12/29 Nephrology consulted as patient will likely need coronary angiogram/HD Diabetes mellitus type [id number] Was previously on Mounjaro but discontinued its use due to side effects Reports recent A1c around 6.5 ACHS Accu-Chek, sliding scale insulin Hypertension Continue home medications when verified DVT PPX: Heparin drip Code status: Full Discharge Plan: Home Plan to discharge in: 48 Hours - Advance Directives Does patient have a Living Will: No Does patient have a Durable POA for Healthcare: No - Code Status/Comfort Care Code Status Assessed: Yes (Full code) Critical Care: No Time Spent Managing Pts Care (In Minutes): 61
[2023-12-31] MEDS ORDERED: HEPARIN 5000 UNIT/ML 1 ML VIAL IV PRN (17:54)
[2023-12-31] MEDS: INSULIN REGULAR (HUMAN) 100 UNIT/ML SQ SCH (17:54)
[2023-12-31] MEDS ORDERED: HEPARIN/D5W 25,000 UNIT/500 ML BAG IV SCH (17:54)
[2023-12-31] MEDS ORDERED: ACETAMINOPHEN 325 MG TABLET PO PRN (17:54)
--- NOTE | 2023-12-31 18:26 | P.CNS ---
Date of Consult: 12/31/23 Chief Complaint: NSTEMI History of Present Illness: Patient with PMH of ESRD on HD, HTN, Pulmonary hypertension, presented with generalized weakness, fatigue, decrease apatite for the last few days, report some chest discomfort but it is very mild, no other cardiac symptoms. Allergies No Known Allergies Allergy (Verified 06/19/23 12:41) Home medications list reviewed: Yes Home Medications: Gabapentin [Neurontin*] 100 mg PO BID 30 Days #90 cap 09/26/21 Blood Sugar Diagnostic [Glucose Test Strip] 1 each MC 30 MIN BEFORE HS #100 strip 12/17/21 Diabetic Supplies,Miscell [Cequr Simplicity Glue Jointer Feeder] 1 each MC DAILY 30 Days 12/17/21 Furosemide [Lasix*] 40 mg PO BIDL #60 tab 12/17/21 Insulin Glargine,Hum.rec.anlog [Semglee] 20 unit SQ BEDTIME #10 ml 12/17/21 Lancets/Blood Glucose Strips [[facility] Lancet 30G-Gluc Tst Strp] 1 each MC 30 MIN BEFORE HS #100 strip 12/17/21 Amlodipine [Norvasc*] 10 mg PO DAILY 30 Days #30 tab 02/18/22 Calcium Acetate [Phoslo*] 667 mg PO TIDWM 30 Days #90 tab 02/18/22 Omeprazole [Prilosec] 40 mg PO DAILY 30 Days #30 cap 02/18/22 Losartan Potassium [Cozaar*] 100 mg PO DAILY #60 tab 08/08/22 Aspirin [Aspirin EC 81 MG] 81 mg PO DAILY 01/29/23 Rivaroxaban [Xarelto] 2.5 mg PO DAILY 01/29/23 Sevelamer Carbonate [Renvela] 800 mg PO DAILY 01/29/23 carvediloL [Coreg*] 25 mg PO BID 01/29/23 levoFLOXacin [Levaquin] 750 mg PO DAILY 7 Days #7 tab 05/12/23 - Past Medical/Surgical History Diabetic: Yes -: DM II with Polyneuropathy -: HLD -: HTN -: ESRD/ CKD with Proteinura (Dr. Rojas) -: Diastolic CHF -: Left arm Fistula Psychosocial/ Personal History: Patient lives at home alone. - Family History Father Medical History: Diabetes Mother Medical History: Stroke - Social History Smoking Status: Unknown if ever smoked Alcohol use: Yes CD- Drugs: No Caffeine use: No Place of Residence: Home Review of Systems 10-point ROS is otherwise unremarkable Physical Examination Temp Pulse Resp BP Pulse Ox 97 F 94 H 18 151/70 H 12/31/23 17:39 12/31/23 17:46 12/31/23 17:46 12/31/23 17:46 General: Alert, In no apparent distress HEENT: Atraumatic, PERRLA, Mucous membr. moist/pink, EOMI, Sclerae nonicteric Neck: Supple, 2+ carotid pulse no bruit, No LAD, Without JVD or thyroid abnormality Respiratory: Clear to auscultation bilaterally, Normal air movement Cardiovascular: Regular rate/rhythm, Normal S1 S2 Gastrointestinal: Normal bowel sounds, No tenderness Musculoskeletal: No tenderness Integumentary: No rashes Neurological: Normal gait, Normal speech, Normal tone, Normal affect Lymphatics: No axilla or inguinal lymphadenopathy Laboratory Data (last 24 hrs) 12/31/23 12/31/23 12/31/23 11:11 11:11 11:11 WBC 9.60 Hgb 8.4 L Hct 24.5 L Plt Count 230 PT 12.5 INR 1.12 APTT 31.9 Sodium Potassium BUN Creatinine Glucose Magnesium Total Bilirubin AST ALT Alkaline Phosphatase Lipase 12/31/23 11:11 WBC Hgb Hct Plt Count PT INR APTT Sodium 130 L Potassium 4.5 BUN 46 H Creatinine 8.87 H Glucose 164 H Magnesium 1.9 Total Bilirubin 0.5 AST 16 ALT 21 Alkaline Phosphatase 82 Lipase 38 - Problems (1) NSTEMI (non-ST elevated myocardial infarction) Current Visit: Yes Status: Acute Plan: NPO after midnight for coronary angiogram in am Heparin ACS protocol ASA 81 mg daily Lipitor 40 mg daily Hold Xarelto (2) Pulmonary hypertension Current Visit: Yes Status: Acute Plan: Continue volume adjustment through dialysis. Continue Lasix 40 mg po BID (3) Hypertension Current Visit: No Status: Chronic Plan: Continue Coreg, Losartan Qualifiers: Hypertension type: primary hypertension Qualified Code(s): I10 - Essential (primary) hypertension
[2023-12-31] MEDS ORDERED: NA CHLORIDE 0.9% 1,000 ML IV PRN (20:46)
[2023-12-31] MEDS ORDERED: MANNITOL 25% 12.5 GM/50 ML VIAL IV PRN (20:46)
[2023-12-31] MEDS ORDERED: ALBUMIN HUMAN 25% 50 ML IV SCH (21:00)
[2023-12-31] MEDS: ATORVASTATIN 40 MG TAB PO SCH (22:23)
[2024-01-01 04:11] LABS: Anion Gap 14.3 mEq/L (5.0-15.0); Potassium 4.3 mEq/L (3.5-5.1)
[2024-01-01 04:32] LABS: Troponin High Sensitivity 1514.5 pg/mL (<58.9)
[2024-01-01] MEDS: HYDRALAZINE HCL 20 MG/ML VIAL IV PRN (05:39)
[2024-01-01 06:09] LABS: Absolute Basophils 0.1 K/uL (0-0.5); Absolute Eosinophils 0.6 K/uL (0-0.5); Absolute Lymphocytes (CBC) 1.3 K/uL (0.7-4.9); Absolute Monocytes 0.8 K/uL (0.1-1.3); Absolute Neutrophil 7.5 K/uL (1.8-8.0); Basophils % 1.1 % (0-1.3); Eosinophils % 5.4 % (0-4.4); Hemoglobin 8.4 g/dL (13.6-17.9); Lymphocytes % 12.7 % (15.3-44.8); MCH 32.1 pg (27.0-35.0); MCHC 35.2 g/dL (32.0-36.0); MCV 91.3 fL (80-100); MPV 7.2 fL (7.6-11.3); Monocytes % 7.9 % (3.3-12.3); Neutrophils % 72.9 % (41.7-73.7); Nucleated Red Blood Cells % 0.1 % (0-0); Platelets 246 thou/uL (152-406); RBC Red Blood Cell Count 2.63 M/uL (4.33-5.43); Red Cell Distribution Width 13.2 % (12.1-15.2)
[2024-01-01] MEDS: NA CHLORIDE 0.9% 500 ML ONE (06:56)
[2024-01-01] MEDS ORDERED: ATROPINE SULF 1 MG/10 ML SYR IV ONE (08:26)
[2024-01-01] MEDS ORDERED: HEPARIN 5000 UNIT/ML 1 ML VIAL ONE (08:26)
[2024-01-01] MEDS ORDERED: HEPARIN 10,000 UNIT/10 ML VIAL IV ONE (08:26)
[2024-01-01] MEDS ORDERED: HEPA 1000U/500MLS 2,000 UNIT/1,000 ML BAG IV ONE (08:26)
[2024-01-01] MEDS ORDERED: TICAGRELOR 90 MG TABLET PO ONE (08:26)
[2024-01-01] MEDS ORDERED: ASPIRIN 325 MG TAB ONE (08:26)
[2024-01-01] MEDS ORDERED: CLOPIDOGREL 75 MG TABLET ONE (08:26)
[2024-01-01] MEDS ORDERED: LIDOCAINE 1% 20 ML MDV ONE (08:26)
[2024-01-01] MEDS ORDERED: MIDAZOLAM HCL 2 MG/2 ML INJ ONE (08:27)
[2024-01-01] MEDS ORDERED: FENTANYL CITR 100 MCG/2 ML ONE (08:27)
[2024-01-01] MEDS: ASPIRIN EC 81 MG TAB PO SCH (09:00)
[2024-01-01] MEDS: HYDRALAZINE HCL 20 MG/ML VIAL ONE ×2 (09:27→09:31)
--- NOTE | 2024-01-01 11:20 | P.PN ---
Subjective Date of Service: 01/01/24 Chief Complaint: NSTEMI Subjective: No new changes, No C/O voiced, Tolerating diet, Ambulating, Improving Physical Examination - Vital Signs Temperature: 97.7 F Blood Pressure: 154/63 Pulse: 98 Respirations: 16 Pulse Ox (%): 92 - Physical Exam General: Alert, In no apparent distress HEENT: Atraumatic, PERRLA, EOMI Neck: Supple, JVD not distended Respiratory: Clear to auscultation bilaterally, Normal air movement Cardiovascular: Regular rate/rhythm, Normal S1 S2 Gastrointestinal: Normal bowel sounds, No tenderness Musculoskeletal: No tenderness Integumentary: No rashes Neurological: Normal speech, Normal tone, Normal affect Lymphatics: No axilla or inguinal lymphadenopathy - Studies Laboratory Data (last 24 hrs) 12/31/23 12/31/23 12/31/23 11:11 11:11 11:11 WBC 9.60 Hgb 8.4 L Hct 24.5 L Plt Count 230 PT 12.5 INR 1.12 APTT 31.9 Sodium Potassium BUN Creatinine Glucose Magnesium Total Bilirubin AST ALT Alkaline Phosphatase Lipase 12/31/23 11:11 WBC Hgb Hct Plt Count PT INR APTT Sodium 130 L Potassium 4.5 BUN 46 H Creatinine 8.87 H Glucose 164 H Magnesium 1.9 Total Bilirubin 0.5 AST 16 ALT 21 Alkaline Phosphatase 82 Lipase 38 Microbiology Data (last 24 hrs): 12/31/23 11:11 Nasopharnyx Influenza Type A Antigen Screen - Final 12/31/23 11:11 Nasopharnyx Influenza Type B Antigen Screen - Final Medications List Reviewed: Yes Assessment And Plan - Current Problems (Diagnosis) (1) NSTEMI (non-ST elevated myocardial infarction) Current Visit: Yes Status: Acute Plan: Coronary angiogram shows significant multivessel CAD (ostial LAD, Diagonal and OM disease) Will transfer for inpatient CABG Heparin ACS protocol ASA 81 mg daily Lipitor 40 mg daily Hold Xarelto (2) Pulmonary hypertension Current Visit: Yes Status: Acute Plan: Continue volume adjustment through dialysis. Continue Lasix 40 mg po BID (3) Hypertension Current Visit: No Status: Chronic Plan: Continue Coreg, Losartan Qualifiers: Hypertension type: primary hypertension Qualified Code(s): I10 - Essential (primary) hypertension
--- NOTE | 2024-01-01 11:40 | P.CNS ---
Date of Consult: 01/01/24 Reason for Consult: ESRD Requesting Physician: Dudley Ruiz Chief Complaint: NSTEMI History of Present Illness: 48-year-old male with history of ESRD on HD TTS, ytl-nwagrzg-ohwfevkie diabetes, hypertension, chronic diastolic congestive heart failure presents the emergency department with chief complaint of feeling unwell for the past couple of days, lightheaded especially with ambulation. He was evaluated in the emergency department and his labs were significant for markedly elevated high sensitive troponin 3384.4, BNP 14,217. Per chart review he has never had a positive troponin at our facility, he denies any active chest pain or shortness of breath, EKG without STEMI criteria present. ED provider wishes to admit patient to the hospital for further management of NSTEMI. He was started on a heparin drip and given aspirin, Plavix in the ED. [id number] 14:08 This 48 yrs old Male presents to ER via Ambulatory with complaints of dennis Decreased Appetite - lightheaded. 14:08 weak, fatigue , no cp. Onset: The symptoms/episode began/occurred 3 day(s) ago. dennis Severity of symptoms: At their worst the symptoms were mild moderate in the emergency department the symptoms are unchanged. The patient has experienced similar episodes in the past, a few times. Allergies No Known Allergies Allergy (Verified 06/19/23 12:41) Home medications list reviewed: Yes Home Medications: Gabapentin [Neurontin*] 100 mg PO BID 30 Days #90 cap 09/26/21 Blood Sugar Diagnostic [Glucose Test Strip] 1 each MC 30 MIN BEFORE HS #100 strip 12/17/21 Diabetic Supplies,Miscell [Cequr Simplicity Ski Molder] 1 each MC DAILY 30 Days 12/17/21 Furosemide [Lasix*] 40 mg PO BIDL #60 tab 12/17/21 Insulin Glargine,Hum.rec.anlog [Semglee] 20 unit SQ BEDTIME #10 ml 12/17/21 Lancets/Blood Glucose Strips [Gerajji Lancet 30G-Gluc Tst Strp] 1 each MC 30 MIN BEFORE HS #100 strip 12/17/21 Amlodipine [Norvasc*] 10 mg PO DAILY 30 Days #30 tab 02/18/22 Calcium Acetate [Phoslo*] 667 mg PO TIDWM 30 Days #90 tab 02/18/22 Omeprazole [Prilosec] 40 mg PO DAILY 30 Days #30 cap 02/18/22 Losartan Potassium [Cozaar*] 100 mg PO DAILY #60 tab 08/08/22 Aspirin [Aspirin EC 81 MG] 81 mg PO DAILY 01/29/23 Rivaroxaban [Xarelto] 2.5 mg PO DAILY 01/29/23 Sevelamer Carbonate [Renvela] 800 mg PO DAILY 01/29/23 carvediloL [Coreg*] 25 mg PO BID 01/29/23 levoFLOXacin [Levaquin] 750 mg PO DAILY 7 Days #7 tab 05/12/23 - Past Medical/Surgical History Diabetic: Yes -: DM II with Polyneuropathy -: HLD -: HTN -: ESRD/ CKD with Proteinura (Dr. Rojas/ [facility]) -: Pulmonary HTN -: Left arm Fistula Psychosocial/ Personal History: Patient lives at home alone. - Family History Father History Unknown: Yes Medical History: Diabetes Mother Medical History: Stroke - Social History Smoking Status: Unknown if ever smoked Alcohol use: Yes CD- Drugs: No Caffeine use: No Place of Residence: Home Review of Systems 10-point ROS is otherwise unremarkable General: Weakness, Malaise Physical Examination Temp Pulse Resp BP Pulse Ox 97.7 F 98 H 16 154/63 H 92 01/01/24 11:19 01/01/24 11:19 01/01/24 11:19 01/01/24 11:19 01/01/24 11:19 General: In no apparent distress, Oriented x3, Cooperative HEENT: Atraumatic Neck: Supple Respiratory: Clear to auscultation bilaterally Cardiovascular: No edema, Regular rate/rhythm Gastrointestinal: Soft and benign, Non-distended Musculoskeletal: No clubbing, No contractures Integumentary: No rashes, No cyanosis Neurological: Normal speech Laboratory Data (last 24 hrs) 12/31/23 12/31/23 11:11 11:11 APTT 31.9 Sodium 130 L Potassium 4.5 BUN 46 H Creatinine 8.87 H Glucose 164 H Magnesium 1.9 Total Bilirubin 0.5 AST 16 ALT 21 Alkaline Phosphatase 82 Lipase 38 Imagings Data: [id number] EXAM DESCRIPTION: Champ Single View12/31/2023 1:17 pm CLINICAL HISTORY: Cough COMPARISON: September 2023 FINDINGS: The lungs appear clear of acute infiltrate. The heart is upper limits normal size IMPRESSION: No acute abnormalities displayed [id number] LEFT VENTRICULAR WALL MOTION: NORMAL DOPPLER/COLOR FLOW: NORMAL COMMENTS: 1. MILD LEFT VENTRICULAR HYPERTROPHY 2. NORMAL LEFT VENTRICULAR SYSTOLIC FUNCTION, EJECTION FRACTION 60-65%, NORMAL WALL MOTION 3. NORMAL DIASTOLIC DYSFUNCTION 4. MILD PULMONARY HYPERTENSION (RIGHT VENTRICULAR SYSTOLIC PRESSURE 40-45 mmHg) Conclusions/Impression: ESRD on HD TTS -Acute HD ordered HTN with CKD -Restart Coreg and Losartan -Start Amlodipine daily Pulmonary HTN, mild -HD with UF DM II with CKD & Polyneuropathy -RISS Anemia in CKD -Retacrit qHD CKD MBD -Start Ergo -Start Renvela Multi-vessel CAD -Transfer pending for CABG evaluation Hospitalist and ER notes reviewed Thank you kindly for the consultation
--- NOTE | 2024-01-01 13:59 | ECHO ---
HEIGHT: 5 ft 8 in WEIGHT: 235 lb 0 oz DATE OF STUDY: 01/01/[address]: Tirso Wilson NP 2-DIMENSIONAL: YES M.MODE: YES DOPPLER: YES COLOR FLOW: YES TDS: PORTABLE: YES DEFINITY: BUBBLE STUDY: DIAGNOSIS: NON ST ELEVATION MYOCARDIAL INFARCTION CARDIAC HISTORY: CATHERIZATION: YES SURGERY: PROSTHETIC VALVE: PACEMAKER: MEASUREMENTS (cm) DIASTOLIC (NORMALS) SYSTOLIC (NORMALS) IVSd 1.4 (0.6-1.2) LA Diam 4.5 (1.9-4.0) LVEF 60-65% LVIDd 5.4 (3.5-5.7) LVIDs 3.8 (2.0-3.5) %FS 29% LVPWd 1.3 (0.6-1.2) Ao Diam 2.6 (2.0-3.7) 2 DIMENSIONAL ASSESSMENT: RIGHT ATRIUM: NORMAL LEFT ATRIUM: NORMAL RIGHT VENTRICLE: NORMAL LEFT VENTRICLE: MILD LEFT VENTRICULAR HYPERTROPHY TRICUSPID VALVE: TRACE TRICUSPID REGURGITATION MITRAL VALVE: TRACE MITRAL REGURGITATION PULMONIC VALVE: NORMAL AORTIC VALVE: NORMAL PERICARDIAL EFFUSION: NONE AORTIC ROOT: NORMAL LEFT VENTRICULAR WALL MOTION: NORMAL DOPPLER/COLOR FLOW: NORMAL COMMENTS: 1. MILD LEFT VENTRICULAR HYPERTROPHY 2. NORMAL LEFT VENTRICULAR SYSTOLIC FUNCTION, EJECTION FRACTION 60-65%, NORMAL WALL MOTION 3. NORMAL DIASTOLIC DYSFUNCTION 4. MILD PULMONARY HYPERTENSION (RIGHT VENTRICULAR SYSTOLIC PRESSURE 40-45 mmHg) TECHNOLOGIST: GAVIN MONRYO
--- NOTE | 2024-01-01 15:21 | P.PN ---
Date of Service: 01/01/24 Subjective: No complaints S/P heart catheterization Awaiting HD today ROS: 10 point ROS as noted above, otherwise negative General: Alert, In no apparent distress, Oriented x3 HEENT: Atraumatic, PERRLA, Mucous membr. moist/pink, EOMI Neck: Supple, 2+ carotid pulse no bruit, No LAD Respiratory: Clear to auscultation bilaterally, Normal air movement Cardiovascular: Regular rate/rhythm, Normal S1 S2 Gastrointestinal: Normal bowel sounds, No tenderness Musculoskeletal: No tenderness Integumentary: No rashes Neurological: Normal speech, Normal strength at 5/5 x4 extr, Normal tone Vitals reviewed Assessment: NSTEMI-secondary to severe multivessel CAD ESRD on HD TTS Diabetes mellitus type [id number] Hypertension Plan: NSTEMI-secondary to severe multivessel CAD Continue heparin drip, telemetry Underwent coronary angiogram today which showed multivessel CAD Cardiology recommends inpatient transfer for evaluation for CABG Continue aspirin, statin, heparin Transfer initiated to [facility] for CABG evaluation ESRD on HD TTS Completed HD 12/29 Patient going for dialysis now 12/31 Diabetes mellitus type [id number] Was previously on Mounjaro but discontinued its use due to side effects Reports recent A1c around 6.5 ACHS Accu-Chek, sliding scale insulin Hypertension Continue home medications when verified VTE: Heparin drip Code: Full Dispo: Transfer to [facility] for inpatient CABG eval Time Spent Managing Pts Care (In Minutes): 35
--- NOTE | 2024-01-01 15:51 | OP ---
Date of Procedure: 01/01/2024 Surgeon: Maximiliano Lewis Procedures Performed: 1.Left heart catheterization. 2.Selective coronary angiogram. Indication For Procedure: [id number] TN. Complications: None. Estimated Blood Loss: Less than 50 cc. Access: Right radial, closed by TR band. Sedation Time: 20 minutes with 1 of Versed and 50 of fentanyl. Description Of Procedure: After risks, and benefits, and alternatives were explained to the patient, patient agreed to proceed with the procedure and signed informed consent. The patient was brought b k to the catheterization lab, prepped and draped in a sterile fashion. Time-out was performed. Se dation was administered. Next, the right radial ultrasound-guided access was obtained. [place] 4.0 ca theter was advanced to the LV cavity. LVEDP was obtained. Pullback did not show any gradient. Same catheter was used for selective angiogram of the left and right coronary artery systems and then mary t catheter was pulled back to the left subclavian artery where a nonselective AQUINO shot was done and the catheter was removed over a J-wire at the end of procedure and sheath was removed. TR band was a pplied and patient was moved back to recovery in stable condition. Findings: 1.Left main normal. 2.LAD; ostial 90% disease, then mild luminal irregularities and gives a large diagonal with a proxim al 60% to 70% disease and mild luminal irregularities. 3.Left circ; mild luminal irregularities, gives OM1 that is large and gives 2 branches, the first br anch got 70% to 80% disease and mild luminal irregularities. 4.RCA; large, dominant, mild luminal irregularities. 5.Left subclavian/AQUINO patent. 6.LVEDP 20 mmHg. Assessment And Plan: 1.Significant ostial LAD disease. 2.Significant diagonal 1 disease. 3.Significant OM1 medium size branch disease. 4.Mild elevated filling pressure. Plan will be to transfer for inpatient CABG evaluation. CASEY/MORENO Voice ID: [id number] Report ID: [id number]
[2024-01-01] MEDS: EPOETIN ALFA 10,000 UNIT/ML VIAL IV SCH (17:30)
[2024-01-01 18:08] VITALS: BMI 35.2
[2024-01-01 18:27] LABS: Hepatitis B surface AG Interp. Nonreactive (Nonreactive)
[2024-01-01 18:28] LABS: HBsAG Nonreactive Report Report
[2024-01-01] MEDS: carvediloL 25 MG TAB PO SCH (21:45)
[2024-01-01] MEDS: LOSARTAN POTASSIUM 50 MG TABLET PO SCH (21:45)
[2024-01-02 04:30] VITALS: BP 152/69; TEMP 97.7
[2024-01-02 05:10] VITALS: O2SAT 96
[2024-01-02] MEDS ORDERED: SEVELAMER CARBONATE 800 MG TABLET PO SCH (08:00)
[2024-01-02] MEDS ORDERED: DOCUSATE NA 100 MG CAP PO SCH (09:00)
[2024-01-02] MEDS ORDERED: MULTIVITAMINS,THERAPEUT 1 TAB PO SCH (09:00)
--- NOTE | 2024-01-05 13:08 | EKG ---
Test Date: 2023-12-31 Test Time: 11:23:12 Engineering Professor: JEANNETTE MEASUREMENT RESULTS: Intervals: Rate: 75 WY: 122 QRSD: 92 QT: 442 QTc: 493 [place]: P: 42 WY: 122 QRS: -29 T: 92 INTERPRETIVE STATEMENTS: Normal sinus rhythm Abnormal QRS-T angle, consider primary T wave abnormality Prolonged QT Abnormal ECG Compared to ECG 07/04/2023 13:47:46 T-wave abnormality now present Electronically Signed On 01-05-24 12:52:39 CDT by Mason Jasso
[2024-01-08] MEDS ORDERED: DRISDOL (VITAMIN D=ERGOCALCIFEROL) 50000 UNIT CAP PO SCH (09:00)
== END 2024-01-02 04:50 | disposition short-term general hospital (02) | DRG 280 ==
LOC: ER 10:23 → ERHOLD 14:52 → 4TH 15:20
PROVIDERS: ADMIT Hospitalist; ATTEND Hospitalist
PROC: 4A023N7 Measurement of Cardiac Sampling and Pressure, Left Heart, Percutaneous Approach (ICD-10-PCS; principal; 2024-01-01)
PROC: B2111ZZ Fluoroscopy of Multiple Coronary Arteries using Low Osmolar Contrast (ICD-10-PCS; 2024-01-01)
PROC: 5A1D70Z Performance of Urinary Filtration, Intermittent, Less than 6 Hours Per Day (ICD-10-PCS; 2024-01-01)
DX: I25.10 Atherosclerotic heart disease of native coronary artery without angina pectoris (principal); N18.6 End stage renal disease; I21.A1 Myocardial infarction type 2; I13.2 Hypertensive heart and chronic kidney disease with heart failure and with stage 5 chronic kidney disease, or end stage renal disease; I50.32 Chronic diastolic (congestive) heart failure; E11.22 Type 2 diabetes mellitus with diabetic chronic kidney disease; E11.65 Type 2 diabetes mellitus with hyperglycemia; E11.42 Type 2 diabetes mellitus with diabetic polyneuropathy; D63.1 Anemia in chronic kidney disease; E66.9 Obesity, unspecified; I27.20 Pulmonary hypertension, unspecified; E78.5 Hyperlipidemia, unspecified; Z99.2 Dependence on renal dialysis; Z60.2 Problems related to living alone; Z79.4 Long term (current) use of insulin; Z79.82 Long term (current) use of aspirin; Z11.52 Encounter for screening for COVID-19; Z68.35 Body mass index [BMI] 35.0-35.9, adult; Z79.02 Long term (current) use of antithrombotics/antiplatelets; Z79.899 Other long term (current) drug therapy
CPT/HCPCS: 36415; 71045; 76937; 80048; 80061; 80076; 82947; 83690; 83735; 83880; 84484; 85025; 85610; 85730; 87086; 87088; 87340; 87804; 87811; 90935; 93005; 93306; 93458; 96374; 96375; 99152; 99153; 99285; C1893; J0360; J0461; J1644; J2001; J2250; J3010; J7040; Q4081; Q9967

== ENCOUNTER 2024-02-14 10:48 | Emergency (ER) | payer BC, OTHER ==
[2024-02-14] MEDS ORDERED: METOPROLOL TAR 50 MG TAB ONE (11:33)
[2024-02-14] MEDS ORDERED: MAGNESIUM SULFATE 1 gm IVPB 1 GM/100 ML BAG IV ONE (11:34)
[2024-02-14] MEDS ORDERED: METOPROLOL TARTRATE 5 MG/5 ML INJ IV ONE ×2 (11:34→12:51)
[2024-02-14] MEDS ORDERED: DIGOXIN 0.25 MG/ML AMP ONE (11:34)
[2024-02-14 11:38] LABS: Absolute Basophils 0.1 K/uL (0-0.5); Absolute Eosinophils 0.3 K/uL (0-0.5); Absolute Lymphocytes (CBC) 1.1 K/uL (0.7-4.9); Absolute Monocytes 0.6 K/uL (0.1-1.3); Absolute Neutrophil 3.8 K/uL (1.8-8.0); Basophils % 1.7 % (0-1.3); Eosinophils % 4.6 % (0-4.4); Hematocrit 25.7 % (39.6-49.0); Hemoglobin 8.5 g/dL (13.6-17.9); Lymphocytes % 19.4 % (15.3-44.8); MCH 29.8 pg (27.0-35.0); MCV 90.2 fL (80-100); MPV 7.4 fL (7.6-11.3); Monocytes % 10.7 % (3.3-12.3); Neutrophils % 63.6 % (41.7-73.7); Platelets 232 thou/uL (152-406); RBC Red Blood Cell Count 2.85 M/uL (4.33-5.43)
[2024-02-14 11:40] LABS: PT Prothrombin Time 13.1 SECONDS (9.4-12.5); Protime INR 1.18
[2024-02-14 12:14] LABS: ALT/SGPT 18 U/L (16-61); Albumin 3.4 g/dL (3.4-5.0); Albumin/Globulin Ratio 0.8 (1.1-1.8); Alkaline Phosphatase 120 U/L (45-117); Anion Gap 7.8 mEq/L (5.0-15.0); BUN Blood Urea Nitrogen 18 mg/dL (7-18); Bicarbonate 30 mEq/L (21-32); Bilirubin Direct 0.2 mg/dL (0-0.2); Bilirubin Indirect, Calculated 0.2 mg/dL (0.2-0.8); Bilirubin Total 0.4 mg/dL (0.2-1.0); Globulin 4.1 g/dL (2.3-3.5); Glomerular Filtration Rate 18 ml/min (=/>90); Glucose Level 89 mg/dL (74-106); Magnesium 1.6 mg/dL (1.6-2.4); NT PRO-BNP 33497 pg/mL (<125); Potassium 3.8 mEq/L (3.5-5.1); Protein, Total 7.5 g/dL (6.4-8.2); Sodium Level 137 mEq/L (136-145); Thyroid Stimulating Hormone 0.962 uIU/mL (0.358-3.740); Troponin High Sensitivity 31.7 pg/mL (<58.9)
[2024-02-14 12:15] LABS: AST/SGOT < 10 U/L (15-37)
--- NOTE | 2024-02-14 12:30 | RAD REPORT ---
EXAMINATION: ONE VIEW CHEST XR CLINICAL INDICATION: Male, 48 years old.,PALPITATIONS TECHNIQUE: Frontal chest projection is submitted. Examination is limited by patient positioning and t echnique. COMPARISON: 12/31/2023 FINDINGS: The lungs are suboptimally distended which limits evaluation. Stable interstitial prominence centrall y, which may reflect mild congestion. No pneumothorax or sizable effusion. The heart is moderately enlarged in size. Sequelae of CABG. IMPRESSION: Moderate cardiomegaly with stable mild central congestion, may reflect a degree of heart failure.
--- NOTE | 2024-02-14 13:18 | ER ---
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 Pt reports he took approximately 8 tablets of Aspirin 325 mg. Coronavirus screen: Client denies travel out of the [place] in the last 14 days. Ebola Screen: Patient denies exposure to infectious person. Patient denies travel to an Ebola-affected area in the 21 days before illness onset. Initial Sepsis Screen: Does the patient meet any 2 criteria? No. Patient's initial sepsis screen is negative. Does the patient have a suspected source of infection? No. Patient's initial sepsis screen is negative. Risk Assessment: Do you want to hurt yourself or someone else? Patient reports no desire to harm self or others. Onset of symptoms is unknown. 11:08 Method Of Arrival: Ambulatory ss 11:08 Acuity: EDINSON 3 ss Historical: - Allergies: 11:12 No Known Allergies; ss - PMHx: 11:12 Congestive heart failure; ESRD; Hypertension; IDDM; kidney failure (neuropathy); ss neuropathy; - PSHx: 11:12 Left arm fistula; ss - Immunization history:: Adult Immunizations unknown. - Infectious Disease History:: Denies. - Social history:: Smoking status: Patient denies any tobacco usage or history of. Screenin:30 [facility] ED Fall Risk Assessment (Adult) History of falling in the last 3 months, ko1 including since admission No falls in past 3 months (0 pts) Confusion or Disorientation No (0 pts) Intoxicated or Sedated No (0 pts) Impaired Gait No (0 pts) Mobility Assist Device Used No (0 pt) Altered Elimination No (0 pt) Score/Fall Risk Level 0 - 2 = Low Risk Oriented to surroundings, Maintained a safe environment, Educated pt \\T\\ family on fall prevention, incl call for assistance when getting out of bed, Assessed \\T\\ reinforced patient's understanding of fall precautions, Provided non-skid footwear, Hourly rounding (assess needs \\T\\ fall precautionary measures) done. Abuse screen: Denies threats or abuse. Denies injuries from another. Nutritional screening: No deficits noted. Tuberculosis screening: No symptoms or risk factors identified. Assessment: 11:30 General: Appears in no apparent distress. comfortable, Behavior is calm, cooperative, ko1 appropriate for age. Pain: Complains of pain in posterior aspect of left shoulder and anterior aspect of left shoulder. Neuro: No deficits noted. Cardiovascular: Rhythm is atrial flutter 2:1. Respiratory: No deficits noted. GI: No deficits noted. : No deficits noted. EENT: No deficits noted. Derm: No deficits noted. Musculoskeletal: No deficits noted. Vital Signs: 11:00 BP 139 / 111; Pulse 130; Resp 19; Pulse Ox 97% ; ko1 11:08 BP 142 / 103; Pulse 128; Resp 18; Temp 97.8(O); Pulse Ox 98% on R/A; Weight 102.06 kg; ss Height 5 ft. 8 in. ; Pain 7/10; 11:30 BP 146 / 94; Pulse 129; Resp 16; Pulse Ox 96% ; ko1 12:00 BP 153 / 98; Pulse 122; Resp 15; Pulse Ox 98% ; ko1 12:23 BP 148 / 101; Pulse 116; Resp 18; Pulse Ox 98% ; ko1 12:50 BP 168 / 109; Pulse 126; Resp 17; Pulse Ox 97% ; ko1 13:15 BP 165 / 83; Pulse 68; Resp 16; Pulse Ox 99% ; ko1 11:08 Body Mass Index 34.21 (102.06 kg, 172.72 cm) ss 11:08 Pain Scale: Adult ss ED Course: 10:51 Patient arrived in ED. ra3 11:00 Grace Egan RN is Primary Nurse. ko1 11:01 Elijah Ruiz MD is Attending Physician. [facility] 11:12 Triage completed. ss 11:12 Arm band placed on right wrist. ss 11:30 Patient has correct armband on for positive identification. Bed in low position. Call ko1 light in reach. Side rails up X2. Provided Education on: meds. Client placed on continuous cardiac and pulse oximetry monitoring. NIBP monitoring applied. surveillance monitor on. Door closed. Noise minimized. Lights dimmed. Warm blanket given. Pillow given. 11:30 No provider procedures requiring assistance completed. Initial lab(s) drawn, by , koSwapna sent to lab. EKG done, by ED staff, reviewed by Elijah Ruiz MD. Inserted saline lock: 20 gauge in right antecubital area, using aseptic technique. Blood collected. Flushed with 10 mL NS. 11:40 XRAY Chest (1 view) In Process Unspecified. EDMS 13:16 Mason Jasso MD is Referral Physician. dennis 13:43 IV discontinued, intact, bleeding controlled, No redness/swelling at site. Pressure ko1 dressing applied. Administered Medications: 11:12 Not Given (Physician Discretion): ns 0.9% 1000 ml IV at 1000 ml once; to be given as a ko1 bolus over 60 minutes 11:38 Drug: Metoprolol IVP 5 mg IVP once; Hold for SBP <100 or HR <60. Route: IVP; [facility]; 11:53 Follow up: Response: No adverse reaction ko1 11:38 Drug: Metoprolol PO 50 mg PO once Route: PO; ko1 12:08 Follow up: Response: No adverse reaction ko1 11:53 Drug: Digoxin IVP 0.5 mg IVP once Route: IVP; Site: right antecubital; ko1 12:08 Follow up: Response: No adverse reaction ko1 11:59 Drug: Metoprolol IVP 5 mg IVP once; Hold for SBP <100 or HR <60. Route: IVP; [facility]; 12:14 Follow up: Response: No adverse reaction ko1 11:59 Drug: Magnesium Sulfate IVPB 1 grams IVPB once over 1 hrs Route: IVPB; Infused Over: 1 ko1 hrs; Site: right antecubital; 13:00 Follow up: Response: No adverse reaction; IV Status: Completed infusion; IV Intake: ko1 100ml 12:54 Drug: Metoprolol IVP 5 mg IVP once; Hold for SBP <100 or HR <60. Route: IVP; Site: ko right antecubital; 13:09 Follow up: Response: No adverse reaction; Cardiac rhythm changed ko1 Medication: 11:30 VIS not applicable for this client. ko1 Intake: 13:00 IV: 100ml; Total: 100ml. ko1 Outcome: 13:18 Discharge ordered by . dennis 13:44 Discharged to home ambulatory, ko1 13:44 Condition: stable 13:44 Discharge instructions given to patient, Instructed on discharge instructions, follow up and referral plans. medication usage, Demonstrated understanding of instructions, follow-up care, medications, Prescriptions given X 2, 13:56 Patient left the ED. ko1 Signatures: Dispatcher [employer] EDSC Elijah Ruiz MD MD cha Blanchard, Shelby, RN RN ss Grace Egan RN RN ko1 Yi Rayo ra3 Corrections: (The following items were deleted from the chart) 13:43 13:15 IV discontinued, intact, bleeding controlled, No redness/swelling at site. ko1 Pressure dressing applied, ko1
--- NOTE | 2024-02-14 13:18 | EDPHYS ---
Physician Documentation [facility] Name: Chava Pate Age: 48 yrs Sex: Male : 1975 Arrival Date: 02/14/2024 Time: 10:48 Bed 14 Private MD: ED Physician Elijah Ruiz HPI: 02/13 13:05 This 48 yrs old Male presents to ER via Ambulatory with complaints of Shoulder dennis Pain - right marely heart rate x1wk. 13:05 The patient or guardian complains of decreased range of motion, pain. dennis Historical: - Allergies: 11:12 No Known Allergies; ss - PMHx: 11:12 Congestive heart failure; ESRD; Hypertension; IDDM; kidney failure (neuropathy); ss neuropathy; - PSHx: 11:12 Left arm fistula; ss - Immunization history:: Adult Immunizations unknown. - Infectious Disease History:: Denies. - Social history:: Smoking status: Patient denies any tobacco usage or history of. ROS: 13:06 Constitutional: Negative for fever, chills, and weight loss, Eyes: Negative for injury, dennis pain, redness, and discharge, ENT: Negative for injury, pain, and discharge, Neck: Negative for injury, pain, and swelling, Respiratory: Negative for shortness of breath, cough, wheezing, and pleuritic chest pain, Abdomen/GI: Negative for abdominal pain, nausea, vomiting, diarrhea, and constipation, Back: Negative for injury and pain, : Negative for injury, bleeding, discharge, and swelling, MS/Extremity: Negative for injury and deformity, Skin: Negative for injury, rash, and discoloration, Neuro: Negative for headache, weakness, numbness, tingling, and seizure, Psych: Negative for depression, anxiety, suicide ideation, homicidal ideation, and hallucinations, Allergy/Immunology: Negative for hives, rash, and allergies, Endocrine: Negative for neck swelling, polydipsia, polyuria, polyphagia, and marked weight changes, Hematologic/Lymphatic: Negative for swollen nodes, abnormal bleeding, and unusual bruising, 13:06 Cardiovascular: Positive for palpitations, 13:06 MS/extremity: Positive for pain, of the anterior aspect of left shoulder and posterior aspect of left shoulder, Exam: 13:06 Constitutional: This is a well developed, well nourished patient who is awake, alert, dennis and in no acute distress. Head/Face: Normocephalic, atraumatic. Eyes: Pupils equal round and reactive to light, extra-ocular motions intact. Lids and lashes normal. Conjunctiva and sclera are non-icteric and not injected. Cornea within normal limits. Periorbital areas with no swelling, redness, or edema. ENT: Nares patent. No nasal discharge, no septal abnormalities noted. Tympanic membranes are normal and external auditory canals are clear. Oropharynx with no redness, swelling, or masses, exudates, or evidence of obstruction, uvula midline. Mucous membranes moist. Neck: Trachea midline, no thyromegaly or masses palpated, and no cervical lymphadenopathy. Supple, full range of motion without nuchal rigidity, or vertebral point tenderness. No Meningismus. Chest/axilla: Normal chest wall appearance and motion. Nontender with no deformity. No lesions are appreciated. Respiratory: Lungs have equal breath sounds bilaterally, clear to auscultation and percussion. No rales, rhonchi or wheezes noted. No increased work of breathing, no retractions or nasal flaring. Abdomen/GI: Soft, non-tender, with normal bowel sounds. No distension or tympany. No guarding or rebound. No evidence of tenderness throughout. Back: No spinal tenderness. No costovertebral tenderness. Full range of motion. Male : Normal genitalia with no discharge or lesions. Skin: Warm, dry with normal turgor. Normal color with no rashes, no lesions, and no evidence of cellulitis. MS/ Extremity: Pulses equal, no cyanosis. Neurovascular intact. Full, normal range of motion. Neuro: Awake and alert, GCS 15, oriented to person, place, time, and situation. Cranial nerves II-XII grossly intact. Motor strength 5/5 in all extremities. Sensory grossly intact. Cerebellar exam normal. Normal gait. Psych: Awake, alert, with orientation to person, place and time. Behavior, mood, and affect are within normal limits. 13:06 Cardiovascular: Rate: tachycardic, actual rate is 130 bpm, Rhythm: regular, Pulses: Pulses are 4+ in bilateral radial, brachial, femoral, popliteal, posterior tibial and and dorsalis pedis arteries.. Heart sounds: normal, Edema: is not appreciated, JVD: is not appreciated, 13:06 ECG was reviewed by the Attending Physician. 13:22 ECG was reviewed by the Attending Physician. [facility] Vital Signs: 11:00 BP 139 / 111; Pulse 130; Resp 19; Pulse Ox 97% ; ko1 11:08 BP 142 / 103; Pulse 128; Resp 18; Temp 97.8(O); Pulse Ox 98% on R/A; Weight 102.06 kg; ss Height 5 ft. 8 in. ; Pain 7/10; 11:30 BP 146 / 94; Pulse 129; Resp 16; Pulse Ox 96% ; ko1 12:00 BP 153 / 98; Pulse 122; Resp 15; Pulse Ox 98% ; ko1 12:23 BP 148 / 101; Pulse 116; Resp 18; Pulse Ox 98% ; ko1 12:50 BP 168 / 109; Pulse 126; Resp 17; Pulse Ox 97% ; ko1 13:15 BP 165 / 83; Pulse 68; Resp 16; Pulse Ox 99% ; ko1 11:08 Body Mass Index 34.21 (102.06 kg, 172.72 cm) ss 11:08 Pain Scale: Adult ss MDM: 11:01 Medical Screening Exam initiated [facility] 13:13 Differential diagnosis: tendonitis, arrythmia. Data reviewed: vital signs, nurses [facility] notes, lab test result(s), EKG, radiologic studies. Consideration of Admission/Observation Escalation of care including admission/observation considered. I considered the following discharge prescriptions or medication management in the emergency department Medications were administered in the Emergency Department. See MAR. Independent interpretation of the following test(s) in the Emergency Department EKG: See my EKG interpretation above. Historians other than the Patient: PT WELL INFORMED. Care significantly affected by the following chronic conditions: Diabetes, Hypertension, Congestive Heart Failure, Obesity, Chronic Kidney Disease. 13:23 ED course: dr sullivan discussed case , pa home will follow up. [facility] 02/13 11:03 Order name: Basic Metabolic Panel; Complete Time: 12:19 [facility] 02/13 11:03 Order name: CBC with Diff; Complete Time: 12:19 [facility] 02/13 11:03 Order name: LFT's; Complete Time: 12:19 [facility] 02/13 11:03 Order name: Magnesium; Complete Time: 12:19 [facility] 02/13 11:03 Order name: NT PRO-BNP; Complete Time: 12:19 [facility] 02/13 11:03 Order name: PT-INR; Complete Time: 12:19 02/13 11:03 Order name: Troponin HS; Complete Time: 12:19 02/13 11:03 Order name: TSH; Complete Time: 12:19 02/13 11:03 Order name: XRAY Chest (1 view); Complete Time: 12:42 02/13 11:03 Order name: Cardiac monitoring; Complete Time: 11:04 02/13 11:03 Order name: EKG - Nurse/Tech; Complete Time: 11:12 02/13 11:03 Order name: IV Saline Lock; Complete Time: 11:38 02/13 11:03 Order name: Labs collected and sent; Complete Time: 11:38 [facility] 02/13 11:03 Order name: O2 Per Protocol; Complete Time: 11:04 02/13 11:03 Order name: O2 Sat Monitoring; Complete Time: 11:04 02/13 13:05 Order name: EKG - Nurse/Tech; Complete Time: 13:14 [facility] EC:06 Rate is 130 beats/min. QRS [place] is Normal. MN interval is normal. QRS interval is dennis normal. QT interval is normal. No Q waves. T waves are Normal. No ST changes noted. Clinical impression: Atrial Flutter and No evidence of ischemia. Interpreted by me. Reviewed by me. 13:22 Rate is 67 beats/min. Rhythm is regular. QRS [place] is Normal. MN interval is normal. QRS dennis interval is normal. QT interval is prolonged at 492 msec. No Q waves. T waves are Normal. No ST changes noted. Clinical impression: Normal ECG. Interpreted by me. Reviewed by me. Administered Medications: 11:12 Not Given (Physician Discretion): ns 0.9% 1000 ml IV at 1000 ml once; to be given as a ko1 bolus over 60 minutes 11:38 Drug: Metoprolol IVP 5 mg IVP once; Hold for SBP <100 or HR <60. Route: IVP; Site: ko1 right antecubital; 11:53 Follow up: Response: No adverse reaction ko1 11:38 Drug: Metoprolol PO 50 mg PO once Route: PO; ko1 12:08 Follow up: Response: No adverse reaction ko1 11:53 Drug: Digoxin IVP 0.5 mg IVP once Route: IVP; Site: right antecubital; ko1 12:08 Follow up: Response: No adverse reaction ko1 11:59 Drug: Metoprolol IVP 5 mg IVP once; Hold for SBP <100 or HR <60. Route: IVP; Site: ko1 right antecubital; 12:14 Follow up: Response: No adverse reaction ko1 11:59 Drug: Magnesium Sulfate IVPB 1 grams IVPB once over 1 hrs Route: IVPB; Infused Over: 1 ko1 hrs; Site: right antecubital; 13:00 Follow up: Response: No adverse reaction; IV Status: Completed infusion; IV Intake: ko1 100ml 12:54 Drug: Metoprolol IVP 5 mg IVP once; Hold for SBP <100 or HR <60. Route: IVP; Site: ko1 right antecubital; 13:09 Follow up: Response: No adverse reaction; Cardiac rhythm changed ko1 Disposition Summary: 02/14/24 13:18 Discharge Ordered Notes: Location: Home dennis Problem: new dennis Symptoms: have improved dennis Condition: Stable dennis Diagnosis - Typical atrial flutter - 2:1 CONVERTED , CHEMICALLY dennis - Dependence on renal dialysis dennis - [facility] (current) use of anticoagulants dennis Followup: dennis - With: Private Physician - When: 2 - 3 days - Reason: Recheck today's complaints, Continuance of care, Re-evaluation by your physician Followup: dennis - With: Mason Jasso MD - When: 2 - 3 days - Reason: Recheck today's complaints, Re-evaluation by your physician Discharge Instructions: - Discharge Summary Sheet dennis - Chemical Cardioversion dennis - Dialysis dennis - Atrial Flutter dennis - Hemodialysis dennis Forms: - Medication Reconciliation Form dennis - Antibiotic Education dennis - Prescription Opioid Use dennis - Patient Portal Instructions dennis - Leadership Thank You Letter [facility] Prescriptions: - Lanoxin 125 mcg (0.125 mg) Oral tablet - take 1 tablet ORAL route once daily for 14 days; 14 tablet; Refills: 0, Product dennis Selection Permitted - Lopressor 50 mg Oral Tablet - take 1 tablet ORAL route every 12 hours; 30 tablet; Refills: 0, Product dennis Selection Permitted Signatures: Dispatcher [employer] Elijah Gray MD MD cha Blanchard, Shelby, RN RN ss Oliver, Kathy, RN RN ko1 Corrections: (The following items were deleted from the chart) 11:04 11:04 BASIC METABOLIC PANEL+C.LAB.BRZ ordered. EDMS EDMS 11: 11:04 CBC+H.LAB.BRZ ordered. EDMS EDMS 11: 11:04 HEPATIC FUNCTION+C.LAB.BRZ ordered. EDMS EDMS 11: 11:04 MAGNESIUM+C.LAB.BRZ ordered. EDMS EDMS 11: 11:04 PROBNP+C.LAB.BRZ ordered. EDMS EDMS 11: 11:04 PROTIME (+INR)+COAG.LAB.BRZ ordered. EDMS EDMS 11: 11:04 Troponin High Sensitivity+C.LAB.BRZ ordered. EDMS EDMS 11:04 11:04 THYROID STIMULAT HORMONE+C.LAB.BRZ ordered. EDMS EDMS 11:04 11:04 Chest Single View+RAD.RAD.BRZ ordered. EDMS EDMS 13:05 13:05 URINE DRUG SCREEN+UC.LAB.BRZ ordered. EDMS EDMS
[2024-02-14 23:29] VITALS: TEMP 97.8
[2024-02-14 23:35] VITALS: BP 165/83; O2SAT 99
--- NOTE | 2024-02-15 15:04 | EKG ---
Test Date: 2024-02-14 Test Time: 11:15:25 Engineering Designer: JOSE MEASUREMENT RESULTS: Intervals: Rate: 130 ID: 130 QRSD: 110 QT: 360 QTc: 529 [place]: P: ID: 130 QRS: -59 T: 135 INTERPRETIVE STATEMENTS: Sinus tachycardia Right bundle branch block Left anterior fascicular block Bifascicular block T wave abnormality, consider lateral ischemia Abnormal ECG Compared to ECG 12/31/2023 11:23:12 Right bundle-branch block now present Left anterior fascicular block now present Bifascicular block now present Possible ischemia now present Sinus rhythm no longer present Prolonged QT interval no longer present T-wave abnormality still present Electronically Signed On 02-15-24 15:03:19 CDT by Maximiliano Lewis
--- NOTE | 2024-02-16 12:37 | EKG ---
Test Date: 2024-02-14 Test Time: 13:11:29 Manager Cath Lab: KIEL MEASUREMENT RESULTS: Intervals: Rate: 67 WI: 130 QRSD: 100 QT: 466 QTc: 492 [place]: P: 67 WI: 130 QRS: -54 T: 125 INTERPRETIVE STATEMENTS: Normal sinus rhythm Left anterior fascicular block T wave abnormality, consider lateral ischemia Prolonged QT Abnormal ECG Compared to ECG 02/14/2024 11:15:25 Prolonged QT interval now present Sinus tachycardia no longer present Right bundle-branch block no longer present Bifascicular block no longer present T-wave abnormality still present Possible ischemia still present Electronically Signed On 02-16-24 12:36:48 CDT by Maximiliano Lewis
== END 2024-02-14 13:56 | disposition home or self-care (01) ==
LOC: ER 10:48
DX: I48.3 Typical atrial flutter (principal); Z99.2 Dependence on renal dialysis; Z79.01 Long term (current) use of anticoagulants; E11.22 Type 2 diabetes mellitus with diabetic chronic kidney disease; I13.2 Hypertensive heart and chronic kidney disease with heart failure and with stage 5 chronic kidney disease, or end stage renal disease; I50.9 Heart failure, unspecified; N18.6 End stage renal disease
CPT/HCPCS: 93005; 85025; 80048; 36415; 83735; 85610; 80076; 84443; 84484; 83880; 71045; J3475; J1160; 96365; 96375; 99285

== ENCOUNTER 2024-02-20 14:25 | Inpatient (IN) | payer BC, OTHER ==
[2024-02-20] MEDS: METOPROLOL TAR 25 MG TAB PO SCH (09:00)
[2024-02-20 16:41] LABS: PT Prothrombin Time 13.4 SECONDS (9.4-12.5); Protime INR 1.2
[2024-02-20 16:42] LABS: Absolute Basophils 0.1 K/uL (0-0.5); Absolute Eosinophils 0.4 K/uL (0-0.5); Absolute Lymphocytes (CBC) 1.6 K/uL (0.7-4.9); Absolute Monocytes 0.9 K/uL (0.1-1.3); Absolute Neutrophil 6.7 K/uL (1.8-8.0); Basophils % 1.4 % (0-1.3); Eosinophils % 3.7 % (0-4.4); Hematocrit 25.1 % (39.6-49.0); Hemoglobin 8.4 g/dL (13.6-17.9); Lymphocytes % 16.7 % (15.3-44.8); MCH 30.4 pg (27.0-35.0); MCHC 33.7 g/dL (32.0-36.0); MCV 90.4 fL (80-100); MPV 7.8 fL (7.6-11.3); Monocytes % 9.6 % (3.3-12.3); Neutrophils % 68.6 % (41.7-73.7); Platelets 202 thou/uL (152-406); RBC Red Blood Cell Count 2.77 M/uL (4.33-5.43); Red Cell Distribution Width 15.5 % (12.1-15.2)
--- NOTE | 2024-02-20 16:56 | RAD REPORT ---
EXAMINATION: ONE VIEW CHEST XR CLINICAL INDICATION: Male, 48 years old.CHEST PAIN TECHNIQUE: 1 View, AP supine, X-ray of the chest was performed. [id number]. COMPARISON: 02/14/2024 FINDINGS: Lungs and pleura: Clear lungs. No effusion. Chronic vascular congestion. Heart and mediastinum: Cardiomegaly. Unremarkable mediastinal contours. Osseous structures: No acute abnormality. Sternotomy Tubes/lines: None Other: None. IMPRESSION: No acute intrathoracic abnormality.
[2024-02-20 17:19] LABS: Anion Gap 11.6 mEq/L (5.0-15.0); Potassium 4.6 mEq/L (3.5-5.1); Troponin High Sensitivity 31.5 pg/mL (<58.9)
--- NOTE | 2024-02-20 18:39 | EDPHYS ---
Physician Documentation [facility] Name: Chava Pate Age: 48 yrs Sex: Male : 1975 Arrival Date: 02/20/2024 Time: 14:25 Bed 5 Private MD: ED Physician Josi Zhu HPI: 02/19 18:56 This 48 yrs old Male presents to ER via Ambulatory with complaints of gb1 Palpitations. 18:56 48-year-old male states that he felt palpitations since yesterday. He denies any gb1 chest pain just feels uncomfortable. He has a history of congestive heart failure, ESRD and he dialyzes Friday, insulin-dependent diabetes, hypertension. Patient recently had a three-vessel CABG on 09 January 2024 at [facility].. Historical: - PMHx: 14:47 Congestive heart failure; ESRD; Hypertension; IDDM; neuropathy; Kidney failure- aa5 dialysis (Left arm fistula); - PSHx: 14:47 Left arm fistula; Triple heart bypass (Left arm fistula); aa5 - Immunization history:: Client reports receiving the 2nd dose of the Covid vaccine. - Infectious Disease History:: Denies. - Social history:: Smoking status: Patient denies any tobacco usage or history of. Exam: 18:56 Constitutional: This is a well developed, well nourished patient who is awake, alert, gb1 and in no acute distress. Head/Face: Normocephalic, atraumatic. Eyes: Pupils equal round and reactive to light, extra-ocular motions intact. Lids and lashes normal. Conjunctiva and sclera are non-icteric and not injected. Cornea within normal limits. Periorbital areas with no swelling, redness, or edema. ENT: Nares patent. No nasal discharge, no septal abnormalities noted. Tympanic membranes are normal and external auditory canals are clear. Oropharynx with no redness, swelling, or masses, exudates, or evidence of obstruction, uvula midline. Mucous membranes moist. Neck: Trachea midline, no thyromegaly or masses palpated, and no cervical lymphadenopathy. Supple, full range of motion without nuchal rigidity, or vertebral point tenderness. No Meningismus. Chest/axilla: Normal chest wall appearance and motion. Nontender with no deformity. No lesions are appreciated. Cardiovascular: Regular rate and rhythm with a normal S1 and S2. No gallops, murmurs, or rubs. Normal PMI, no JVD. No pulse deficits. Respiratory: Lungs have equal breath sounds bilaterally, clear to auscultation and percussion. No rales, rhonchi or wheezes noted. No increased work of breathing, no retractions or nasal flaring. Abdomen/GI: Soft, non-tender, with normal bowel sounds. No distension or tympany. No guarding or rebound. No evidence of tenderness throughout. Back: No spinal tenderness. No costovertebral tenderness. Full range of motion. Skin: Warm, dry with normal turgor. Normal color with no rashes, no lesions, and no evidence of cellulitis. MS/ Extremity: Pulses equal, no cyanosis. Neurovascular intact. Full, normal range of motion. Vital Signs: 14:40 BP 152 / 78; Pulse 80; Resp 18 S; Temp 98.6(O); Pulse Ox 97% on R/A; aa5 15:00 BP 175 / 73; Pulse 77; Pulse Ox 97% on R/A; MAP 104 mmHg; Pain 0/10; tm6 16:30 BP 173 / 76; Pulse 75; Pulse Ox 100% on R/A; Pain 0/10; tm6 17:20 BP 193 / 85; Pulse 76; Pulse Ox 99% on R/A; MAP 117 mmHg; Pain 0/10; tm6 18:16 BP 195 / 89; Pulse 76; Resp 16; Pulse Ox 100% on R/A; ss 18:46 BP 235 / 97; Pulse 76; Pulse Ox 100% on R/A; MAP 137 mmHg; Pain 0/10; tm6 19:23 BP 148 / 89; Pulse 75; Resp 17; Temp 98.6; Pulse Ox 99% ; Pain 0/10; bm8 15:00 Pain Scale: Adult tm6 16:30 Pain Scale: Adult tm6 17:20 Pain Scale: Adult tm6 18:46 Pain Scale: Adult tm6 19:23 Pain Scale: Adult bm8 Berta Coma Score: 19:23 Eye Response: spontaneous(4). Motor Response: obeys commands(6). Verbal Response: bm8 oriented(5). Total: 15. MDM: 14:33 Medical Screening Exam initiated gb1 18:56 Differential diagnosis: arrythmia. Data reviewed: vital signs, nurses notes, lab test gb1 result(s), radiologic studies. Consideration of Admission/Observation Patient was admitted/placed on observation. ED course: 48-year-old male with multiple medical problems to include CAD, ESRD, IDDM, CHF here status post three-vessel CABG on 09 January 2024 with palpitations. I discussed the case with Dr. Jasso and he recommended telemetry observation. Patient's troponin is negative at this time he is due to dialyze tomorrow. I have admitted the patient Dr. Muñoz's telemetry hospitalist service.. 19:00 ED course: Today patient's EKG was completed at 1452 showed normal sinus rhythm with gb1 lateral T wave inversions which is old compared to 02/14/2024 that showed similar T wave inversions. Patient does have this known lateral ischemia and he is got a prolonged QTc at 484 today compared to 492 on that previous EKG in January 2024. He also has LVH today and on prior EKG.. 02/19 16:12 Order name: Basic Metabolic Panel; Complete Time: 17:42 gb1 02/19 16:12 Order name: CBC with Diff; Complete Time: 16:58 gb1 02/19 16:12 Order name: NT PRO-BNP; Complete Time: 17:42 gb1 02/19 16:12 Order name: PT-INR; Complete Time: 16:58 gb1 02/19 16:12 Order name: Troponin HS; Complete Time: 17:42 gb1 02/19 18:51 Order name: Basic Metabolic Panel [facility] 02/19 18:51 Order name: CBC with Automated Diff [facility] 02/19 18:51 Order name: Lactate w/ 2H reflex if indic. [facility] 02/19 18:51 Order name: Liver (Hepatic) Function [facility] 02/19 18:51 Order name: Magnesium [facility] 02/19 18:51 Order name: NT PRO-BNP [facility] 02/19 18:51 Order name: Phosphorus [facility] 02/19 18:51 Order name: Thyroid Stimulating Hormone [facility] 02/19 18:51 Order name: Urinalysis w/ reflexes ED[facility] 02/19 18:51 Order name: Lipid Profile [facility] 02/19 18:51 Order name: Lipid Profile [facility] 02/19 18:51 Order name: Troponin High Sensitivity [facility] 02/19 18:51 Order name: Troponin High Sensitivity [facility] 02/19 18:51 Order name: Troponin High Sensitivity [facility] 02/19 18:51 Order name: Troponin High Sensitivity [facility] 02/19 16:12 Order name: XRAY Chest (1 view); Complete Time: 16:58 [facility] 02/19 16:12 Order name: EKG; Complete Time: 16:13 [facility] 02/19 18:51 Order name: CONS Physician Consult [facility] 02/19 18:51 Order name: CONS Physician Consult [facility] 02/19 16:12 Order name: Cardiac monitoring; Complete Time: 16:29 [facility] 02/19 16:12 Order name: EKG - Nurse/Tech; Complete Time: 16:29 [facility] 02/19 16:12 Order name: IV Saline Lock; Complete Time: 16:29 1 02/19 16:12 Order name: Labs collected and sent; Complete Time: 16:29 [facility] 02/19 16:12 Order name: O2 Per Protocol; Complete Time: 16:29 [facility] 02/19 16:12 Order name: O2 Sat Monitoring; Complete Time: 16:29 gb1 Administered Medications: No medications were administered Disposition Summary: 02/20/24 18:38 Hospitalization Ordered Notes: Hospitalization Status: Observation 1 Provider: Autumn Alaniz [facility] Location: Telemetry/MedSurg (observation) gb1 Condition: Stable gb1 Problem: new gb1 Symptoms: have worsened gb1 Bed/Room Type: [place] [id number] Room Assignment: 205(02/20/24 19:02) eb Diagnosis - Palpitations gb Forms: - Medication Reconciliation Form gb1 - SBAR form 1 - Leadership Thank You Letter gb1 Signatures: Dispatcher [employer] Tanya Caal RN RN aa5 Donna Romero eb Josi Zhu MD MD gb1 Heber Mckee RN RN tm6 Corrections: (The following items were deleted from the chart) 14:47 14:47 PMHx: kidney failure (neuropathy); dipak aa5 19:02 18:38 gb1 eb
--- NOTE | 2024-02-20 18:39 | ER ---
Nurse's Notes [facility] Name: Chava Pate Age: 48 yrs Sex: Male : 1975 Arrival Date: 02/20/2024 Time: 14:25 Bed 5 Private MD: Diagnosis: Palpitations Presentation: 02/19 14:40 Chief complaint: Patient states: "I just don't feel good, I feel short of breath, aa5 fatigued, and my heart feels like it's pounding". 14:40 Coronavirus screen: shortness of breath. Ebola Screen: Patient denies travel to an [facility] Ebola-affected area in the 21 days before illness onset. Initial Sepsis Screen: Does the patient meet any 2 criteria? No. Patient's initial sepsis screen is negative. Does the patient have a suspected source of infection? No. Patient's initial sepsis screen is negative. Risk Assessment: Do you want to hurt yourself or someone else? Patient reports no desire to harm self or others. Onset of symptoms was January 2024. 14:40 Acuity: EDINSON 2 aa5 14:40 Method Of Arrival: Ambulatory aa5 Historical: - PMHx: 14:47 Congestive heart failure; ESRD; Hypertension; IDDM; neuropathy; Kidney failure- aa5 dialysis (Left arm fistula); - PSHx: 14:47 Left arm fistula; Triple heart bypass (Left arm fistula); aa5 - Immunization history:: Client reports receiving the 2nd dose of the Covid vaccine. - Infectious Disease History:: Denies. - Social history:: Smoking status: Patient denies any tobacco usage or history of. Screenin:57 [facility] ED Fall Risk Assessment (Adult) History of falling in the last 3 months, tm6 including since admission No falls in past 3 months (0 pts) Confusion or Disorientation No (0 pts) Intoxicated or Sedated No (0 pts) Impaired Gait No (0 pts) Mobility Assist Device Used No (0 pt) Altered Elimination No (0 pt) Score/Fall Risk Level 0 - 2 = Low Risk Oriented to surroundings, Maintained a safe environment, Educated pt \\T\\ family on fall prevention, incl call for assistance when getting out of bed. Abuse screen: Denies threats or abuse. Denies injuries from another. Nutritional screening: No deficits noted. Tuberculosis screening: No symptoms or risk factors identified. Assessment: 14:57 General: Appears in no apparent distress. Behavior is calm, cooperative. Pain: Denies tm6 pain. Neuro: Level of Consciousness is awake, alert, obeys commands, Oriented to person, place, time, situation. Cardiovascular: Reports heart pounding since a couple of weeks Patient's skin is warm and dry. Rhythm is regular. Respiratory: Reports shortness of breath since a couple of weeks ago cough that is Airway is patent Respiratory effort is even, unlabored, Respiratory pattern is regular, symmetrical. GI: No signs and/or symptoms were reported involving the gastrointestinal system. Abdomen is flat, non-distended. : No signs and/or symptoms were reported regarding the genitourinary system. EENT: No signs and/or symptoms were reported regarding the EENT system. Derm: No signs and/or symptoms reported regarding the dermatologic system. Musculoskeletal: Reports general weakness, fatigue for a couple of weeks. 16:30 Reassessment: Patient and/or family updated on plan of care and expected duration. Pain tm6 level reassessed. Patient is alert, oriented x 3, equal unlabored respirations, skin warm/dry/pink. 17:21 Reassessment: Patient and/or family updated on plan of care and expected duration. Pain tm6 level reassessed. Patient is alert, oriented x 3, equal unlabored respirations, skin warm/dry/pink. 18:16 Reassessment: Patient appears in no apparent distress at this time. No changes from ss previously documented assessment. 18:47 Reassessment: Patient and/or family updated on plan of care and expected duration. Pain tm6 level reassessed. Patient is alert, oriented x 3, equal unlabored respirations, skin warm/dry/pink. 19:11 Reassessment: Patient and/or family updated on plan of care and expected duration. Pain dd2 level reassessed. Patient is alert, oriented x 3, equal unlabored respirations, skin warm/dry/pink. Pt lying in bed quietly. NAD noted at this time. Patient denies pain at this time. Vital Signs: 14:40 BP 152 / 78; Pulse 80; Resp 18 S; Temp 98.6(O); Pulse Ox 97% on R/A; aa5 15:00 BP 175 / 73; Pulse 77; Pulse Ox 97% on R/A; MAP 104 mmHg; Pain 0/10; tm6 16:30 BP 173 / 76; Pulse 75; Pulse Ox 100% on R/A; Pain 0/10; tm6 17:20 BP 193 / 85; Pulse 76; Pulse Ox 99% on R/A; MAP 117 mmHg; Pain 0/10; tm6 18:16 BP 195 / 89; Pulse 76; Resp 16; Pulse Ox 100% on R/A; ss 18:46 BP 235 / 97; Pulse 76; Pulse Ox 100% on R/A; MAP 137 mmHg; Pain 0/10; tm6 19:23 BP 148 / 89; Pulse 75; Resp 17; Temp 98.6; Pulse Ox 99% ; Pain 0/10; bm8 15:00 Pain Scale: Adult tm6 16:30 Pain Scale: Adult tm6 17:20 Pain Scale: Adult tm6 18:46 Pain Scale: Adult tm6 19:23 Pain Scale: Adult bm8 [place] Coma Score: 19:23 Eye Response: spontaneous(4). Motor Response: obeys commands(6). Verbal Response: bm8 oriented(5). Total: 15. ED Course: 14:28 Patient arrived in ED. mg5 14:33 Josi Zhu MD is Attending Physician. gb1 14:40 Arm band placed on Patient placed in an exam room, on a stretcher. aa5 14:48 Triage completed. aa5 14:57 Heber Mckee, RN is Primary Nurse. tm6 14:57 Patient has correct armband on for positive identification. Placed in gown. Bed in low tm6 position. Call light in reach. Side rails up X 1. Provided Education on: use of call alexandra. Client placed on continuous cardiac and pulse oximetry monitoring. NIBP monitoring applied. nuclear monitoring technician on. Pulse ox on. NIBP on. Door closed. Noise minimized. Warm blanket given. 14:57 EKG done, by ED staff, reviewed by Josi Zhu MD. tm6 16:30 Basic Metabolic Panel Sent. tm6 16:30 CBC with Diff Sent. tm6 16:30 NT PRO-BNP Sent. tm6 16:30 PT-INR Sent. tm6 16:30 Troponin HS Sent. tm6 16:30 Inserted saline lock: 20 gauge in right antecubital area, using aseptic technique. tm6 Blood collected. Flushed with 10 mL NS. 16:49 XRAY Chest (1 view) In Process Unspecified. EDMS 18:37 Autumn Alaniz MD is Hospitalizing Provider. gb1 19:23 No provider procedures requiring assistance completed. Patient admitted, IV remains in bm8 place. Administered Medications: No medications were administered Medication: 14:57 VIS not applicable for this client. tm6 Outcome: 18:38 Decision to Hospitalize by Provider. gb1 19:23 Admitted to Med/surg accompanied by tech, via wheelchair, room 205, with chart, bm8 19:23 Condition: stable 19:23 Instructed on the need for admit, Demonstrated understanding of instructions, follow-up care, medications, 20:06 Patient left the ED. 8 Signatures: Dispatcher [employer] EDUT Tanya Bianchi, RN RN aa5 Virginie Denton, RN RN Arlene Pool mg5 Josi Zhu MD MD gb1 Heber Mckee RN RN tm6 Zac Benjamin RN RN bm8 JOCELYNN MILTON RN RN dd2 Corrections: (The following items were deleted from the chart) 14:47 14:47 PMHx: kidney failure (neuropathy); aa5 aa5
[2024-02-20] MEDS ORDERED: ONDANSETRON 4 MG (ODT) TAB PO PRN (18:45)
--- NOTE | 2024-02-20 18:58 | P.HP ---
Certification for Inpatient Patient admitted to: Observation With expected LOS: <2 Midnights Practitioner: I am a practitioner with admitting privileges, knowledge of patient current condition, hospital course, and medical plan of care. Services: Services provided to patient in accordance with Admission requirements found in Title 42 Section 412.3 of the Code of Federal Regulations Patient History Date of Service: 02/20/24 Reason for admission: palpitations History of Present Illness: 48-year-old man with a past medical history significant for CHF, ESRD on hemodialysis, HTN, and DM [id number] presented to the emergency department complaining of palpitations that began about 2 weeks ago. The patient states that his palpitations have been intermittent up until today. Today, he reports the palpitations have gotten slightly worse and more frequent. Also, the patient is scheduled for hemodialysis tomorrow for his ESRD. The patient states that he has not attempted anything to improve his palpitations, and states nothing worsens. Recently, the patient had a three-vessel CABG procedure performed December 2023. Compared to a past visit, (01/12) his BNP is now slightly elevated. He denies fever. Allergies No Known Allergies Allergy (Verified 06/19/23 12:41) Home medications list reviewed: Yes Home Medications: Gabapentin [Neurontin*] 100 mg PO BID 30 Days #90 cap 09/26/21 Blood Sugar Diagnostic [Glucose Test Strip] 1 each MC 30 MIN BEFORE HS #100 strip 12/17/21 Diabetic Supplies,Miscell [Cequr Simplicity Slab Miller Operator] 1 each MC DAILY 30 Days 12/17/21 Furosemide [Lasix*] 40 mg PO BIDL #60 tab 12/17/21 Insulin Glargine,Hum.rec.anlog [Semglee] 20 unit SQ BEDTIME #10 ml 12/17/21 Lancets/Blood Glucose Strips [[employer] Lancet 30G-Gluc Tst Strp] 1 each MC 30 MIN BEFORE HS #100 strip 12/17/21 Amlodipine [Norvasc*] 10 mg PO DAILY 30 Days #30 tab 02/18/22 Calcium Acetate [Phoslo*] 667 mg PO TIDWM 30 Days #90 tab 02/18/22 Omeprazole [Prilosec] 40 mg PO DAILY 30 Days #30 cap 02/18/22 Losartan Potassium [Cozaar*] 100 mg PO DAILY #60 tab 08/08/22 Aspirin [Aspirin EC 81 MG] 81 mg PO DAILY 01/29/23 Rivaroxaban [Xarelto] 2.5 mg PO DAILY 01/29/23 Sevelamer Carbonate [Renvela] 800 mg PO DAILY 01/29/23 carvediloL [Coreg*] 25 mg PO BID 01/29/23 levoFLOXacin [Levaquin] 750 mg PO DAILY 7 Days #7 tab 05/12/23 - Past Medical/Surgical History Diabetic: Yes -: DM II with Polyneuropathy -: HLD -: HTN -: ESRD/ CKD with Proteinura (Dr. Rojas/ Garett) on HD T, TH, Sat -: Pulmonary HTN -: Left arm Fistula -: 3V CABG 01/12 Psychosocial/ Personal History: Patient lives at home alone. - Family History Father -: Diabetes Mother -: Stroke - Social History Smoking Status: Unknown if ever smoked Alcohol use: No CD- Drugs: No Caffeine use: No Review of Systems Respiratory: Cough Cardiovascular: Palpitations Musculoskeletal: Back Pain Physical Examination - Vital Signs Temperature: 98 F Blood Pressure: 235/97 Pulse: 74 Respirations: 18 Pulse Ox (%): 100 - Physical Exam General: Alert, Oriented x3 HEENT: Atraumatic, Normocephalic Neck: JVD not distended Respiratory: Normal air movement Cardiovascular: Regular rate/rhythm, No gallops, No rubs, No murmurs Gastrointestinal: Normal bowel sounds, Non-distended Musculoskeletal: No swelling, No tenderness, No warmth Neurological: Normal strength at 5/5 x4 extr, Sensation intact - Studies Laboratory Data (last 24 hrs) 02/20/24 02/20/24 02/20/24 16:27 16:27 16:27 WBC 9.70 Hgb 8.4 L Hct 25.1 L Plt Count 202 PT 13.4 H INR 1.20 Sodium 133 L Potassium 4.6 BUN 43 H Creatinine 7.53 H Glucose 208 H Assessment and Plan - Problems (Diagnosis) (1) Palpitations Current Visit: Yes Status: Acute (2) ESRD (end stage renal disease) on dialysis Current Visit: No Status: Acute (3) CHF (congestive heart failure) Current Visit: No Status: Chronic Qualifiers: Heart failure type: combined systolic and diastolic - Plan Palpitations: Admit to observation Monitoring ordered Cardiology consult ordered Lab work ordered Congestive heart failure: No pulmonary edema Negative troponin, will continue to repeat trops to trend Will continue to trend BNP ASA, statin, heparin ordered ESRD: Nephrology consulted HD possibly tomorrow Will avoid nephrotoxic medications - Advance Directives Does patient have a Living Will: No Does patient have a Durable POA for Healthcare: No - Code Status/Comfort Care Code Status Assessed: Yes Code Status: Full Code
[2024-02-20] MEDS: GABAPENTIN 100 MG CAP PO SCH (22:15)
[2024-02-20] MEDS: carvediloL 25 MG TAB PO SCH (22:16)
[2024-02-20] MEDS: ZOLPIDEM TARTRATE 5 MG TABLET PO PRN (22:25)
[2024-02-21] MEDS: HEPARIN 5000 UNIT/ML 1 ML VIAL SQ SCH (01:12)
[2024-02-21] MEDS: ACETAMINOPHEN 325 MG TABLET PO PRN (04:21)
[2024-02-21 04:33] LABS: Sqamous Epithelial <5 /HPF (None Seen); Urine Bacteria None Seen /HPF (<20); Urine Bilirubin NEGATIVE (Negative); Urine Blood 1+ (Negative); Urine Clarity Clear (Clear); Urine Color Light-Yellow (Yellow); Urine Crystals Unidentified Few /HPF (None Seen); Urine Culture Reflex Order NOT NEEDED; Urine Glucose 3+ (Negative); Urine Ketones NEGATIVE (Negative); Urine Microscopic Reflex YN ORDER UMIC; Urine Mucus Slight /HPF (None Seen); Urine Nitrite NEGATIVE (Negative); Urine Protein 4+ (Over) (Negative); Urine RBC <5 /HPF (None Seen); Urine Urobilinogen Normal (Normal); Urine WBC <5 /HPF (<5); Urine pH 7.5 (5.0-7.0)
[2024-02-21 05:22] VITALS: BMI 34.0
--- NOTE | 2024-02-21 06:47 | P.PN ---
Date of Service: 02/21/24 Subjective reports chest pressure, palpiations, worse when laying flat Nephrology consulted for hemodialysis today Review of Systems 10 point ROS negative unless listed in HPI Physical Examination - Vital Signs reviewed - Physical Exam General: Alert, Oriented x3 HEENT: Atraumatic, Normocephalic Neck: JVD not distended Respiratory: Diminished, crackles, normal air movement Cardiovascular: Regular rate/rhythm, No gallops, No rubs, No murmurs Gastrointestinal: Normal bowel sounds, Non-distended Musculoskeletal: No swelling, No tenderness, No warmth Neurological: Normal strength at 5/5 x4 extr, Sensation intact Assessment and Plan - Problems (Diagnosis) - Plan Acute hypertensive emergency acute diastolic and systolic CHF (congestive heart failure) Palpitations recent triple bypass Elevated BNP Cardiology consult, telemetry Reports triple bypass 5 weeks ago As needed antihypertensive, Lasix ordered x 1 Negative troponin, will continue to repeat trops to trend Will continue to trend BNP ASA, statin, heparin ordered Troponin 31.7, 31.5 Admission blood pressure 237/97, 195/89 BNP 33,497->40,847-> ESRD (end stage renal disease) on dialysis Nephrology consulted Friday Dr. Rojas Fluid volume overload Trend BMP Hemodialysis consulted for hemodialysis today for fluid volume overload Will avoid nephrotoxic medications Daily weight, fluid restriction, UDS neg, UA +3 glucosuria glucosuria Hemoglobin A1c, Accu-Cheks, sliding scale microcytic anemia Trend H&H transfuse less than 7 - Advance Directives Does patient have a Living Will: No Does patient have a Durable POA for Healthcare: No - Code Status/Comfort Care Code Status Assessed: Yes Code Status: Full Code Time spent with patient 35-minute
[2024-02-21 07:01] LABS: Troponin High Sensitivity 32.5 pg/mL (<58.9)
[2024-02-21] MEDS ORDERED: MANNITOL 25% 12.5 GM/50 ML VIAL IV PRN (07:37)
[2024-02-21] MEDS ORDERED: NA CHLORIDE 0.9% 1,000 ML IV PRN (07:37)
[2024-02-21] MEDS ORDERED: EPOETIN ALFA 10,000 UNIT/ML VIAL IV SCH (07:45)
[2024-02-21] MEDS ORDERED: ALBUMIN HUMAN 25% 50 ML IV SCH (08:00)
[2024-02-21] MEDS: ASPIRIN EC 81 MG TAB PO SCH (08:33)
[2024-02-21] MEDS: INSULIN REGULAR (HUMAN) 100 UNIT/ML SQ SCH (08:34)
[2024-02-21] MEDS: PANTOPRAZOLE 40MG TABLET PO SCH (08:34)
[2024-02-21] MEDS: FUROSEMIDE 40 MG/4 ML VIAL IV ONE (08:35)
[2024-02-21] MEDS: AMLODIPINE 10 MG TAB PO SCH (08:36)
[2024-02-21] MEDS ORDERED: HOME MED 1 EA UNK (Omeprazole [Prilosec] 40 MG Capsule.Dr) PO SCH (09:00)
[2024-02-21 10:33] LABS: Absolute Basophils 0.1 K/uL (0-0.5); Absolute Eosinophils 0.4 K/uL (0-0.5); Absolute Lymphocytes (CBC) 1.3 K/uL (0.7-4.9); Absolute Monocytes 0.6 K/uL (0.1-1.3); Absolute Neutrophil 5.3 K/uL (1.8-8.0); Basophils % 1.5 % (0-1.3); Eosinophils % 5.3 % (0-4.4); Hematocrit 23.2 % (39.6-49.0); Hemoglobin 7.6 g/dL (13.6-17.9); Lymphocytes % 16.2 % (15.3-44.8); MCH 29.8 pg (27.0-35.0); MCHC 32.8 g/dL (32.0-36.0); MCV 90.8 fL (80-100); MPV 7.6 fL (7.6-11.3); Monocytes % 8.2 % (3.3-12.3); Neutrophils % 68.8 % (41.7-73.7); Platelets 203 thou/uL (152-406); RBC Red Blood Cell Count 2.55 M/uL (4.33-5.43); Red Cell Distribution Width 15.5 % (12.1-15.2)
--- NOTE | 2024-02-21 10:41 | P.CNS ---
Date of Consult: 02/21/24 Reason for Consult: ESRD Chief Complaint: palpitations History of Present Illness: 48-year-old man with PMH significant for CHF, ESRD on HD TTS , HTN, and DM [id number] presented to ER complaining of palpitations that began about 2 weeks ago. comes and goes , however got worse before the presentation . Recently, the patient had a three-vessel CABG procedure performed December 2023. Nephrology consulted for ESRD .. upon my evaluation today , pt still feeling the palpitation , however no significant SOB , no CP , no edema .. BP has been high .. last HD was on .. Allergies No Known Allergies Allergy (Verified 06/19/23 12:41) Home Medications: Gabapentin [Neurontin*] 100 mg PO BID 30 Days #90 cap 09/26/21 Blood Sugar Diagnostic [Glucose Test Strip] 1 each MC 30 MIN BEFORE HS #100 strip 12/17/21 Diabetic Supplies,Miscell [Cequr Simplicity Ferryboat Captain] 1 each MC DAILY 30 Days 12/17/21 Furosemide [Lasix*] 40 mg PO BIDL #60 tab 12/17/21 Insulin Glargine,Hum.rec.anlog [Semglee] 20 unit SQ BEDTIME #10 ml 12/17/21 Lancets/Blood Glucose Strips [[facility] Lancet 30G-Gluc Tst Strp] 1 each MC 30 MIN BEFORE HS #100 strip 12/17/21 Amlodipine [Norvasc*] 10 mg PO DAILY 30 Days #30 tab 02/18/22 Calcium Acetate [Phoslo*] 667 mg PO TIDWM 30 Days #90 tab 02/18/22 Omeprazole [Prilosec] 40 mg PO DAILY 30 Days #30 cap 02/18/22 Losartan Potassium [Cozaar*] 100 mg PO DAILY #60 tab 08/08/22 Aspirin [Aspirin EC 81 MG] 81 mg PO DAILY 01/29/23 Rivaroxaban [Xarelto] 2.5 mg PO DAILY 01/29/23 Sevelamer Carbonate [Renvela] 800 mg PO DAILY 01/29/23 carvediloL [Coreg*] 25 mg PO BID 01/29/23 levoFLOXacin [Levaquin] 750 mg PO DAILY 7 Days #7 tab 05/12/23 - Past Medical/Surgical History Diabetic: Yes -: DM II with Polyneuropathy -: HLD -: HTN -: ESRD/ CKD with Proteinura (Dr. Rojas/ [facility]tt) on HD T, , Fri -: Pulmonary HTN -: Left arm Fistula -: 3V CABG 01/12 Psychosocial/ Personal History: Patient lives at home alone. - Family History Father History Unknown: Yes Medical History: Diabetes Mother History Unknown: Yes Medical History: Stroke Notes: DM,HTN, ESRD, CABD with stents - Social History Smoking Status: Unknown if ever smoked Alcohol use: No CD- Drugs: No Caffeine use: Yes Place of Residence: Home Review of Systems General: Weakness Cardiovascular: Palpitations Physical Examination Temp Pulse Resp BP Pulse Ox 98.4 F 71 16 174/82 H 98 02/21/24 08:00 02/21/24 08:35 02/21/24 08:00 02/21/24 08:35 02/21/24 08:00 General: Alert, Oriented x3, Cooperative HEENT: Atraumatic Respiratory: Clear to auscultation bilaterally Cardiovascular: No edema Musculoskeletal: No swelling Laboratory Data (last 24 hrs) 02/20/24 02/20/24 02/20/24 16:27 16:27 16:27 WBC 9.70 Hgb 8.4 L Hct 25.1 L Plt Count 202 PT 13.4 H INR 1.20 Sodium 133 L Potassium 4.6 BUN 43 H Creatinine 7.53 H Glucose 208 H Conclusions/Impression: 1.ESRD on HD through AVF , TSS last HD was on plan to resume HD today with 2.5-3 L UF 2.Hypervolemic - BNP >78629 plan for UF as above 3.Anemia : hold on NANCY for now given the uncontrolled BP , can check Iron panel 4.Hypertension urgency : plan for UF and resume home BP 5. Hx of CABG / palpitation - cardiology consulted
[2024-02-21 11:03] LABS: Albumin 3.1 g/dL (3.4-5.0); Albumin/Globulin Ratio 0.8 (1.1-1.8); Alkaline Phosphatase 113 U/L (45-117); Anion Gap 12.5 mEq/L (5.0-15.0); BUN Blood Urea Nitrogen 47 mg/dL (7-18); Bicarbonate 23 mEq/L (21-32); Bilirubin Total 0.3 mg/dL (0.2-1.0); Globulin 3.7 g/dL (2.3-3.5); Glomerular Filtration Rate 7 ml/min (=/>90); Glucose Level 229 mg/dL (74-106); Magnesium 1.8 mg/dL (1.6-2.4); NT PRO-BNP 32357 pg/mL (<125); Phosphorus 4.3 mg/dL (2.5-4.9); Potassium 4.5 mEq/L (3.5-5.1); Protein, Total 6.8 g/dL (6.4-8.2); Sodium Level 132 mEq/L (136-145); Thyroid Stimulating Hormone 0.673 uIU/mL (0.358-3.740)
[2024-02-21 11:07] LABS: ALT/SGPT < 14 U/L (16-61); AST/SGOT < 10 U/L (15-37); Bilirubin Direct < 0.2 mg/dL (0-0.2); Bilirubin Indirect, Calculated 0.1 mg/dL (0.2-0.8)
[2024-02-21 11:44] LABS: HBsAG Nonreactive Report Report; Hepatitis B surface AG Interp. Nonreactive (Nonreactive)
[2024-02-22] MEDS: HYDRALAZINE HCL 20 MG/ML VIAL IV PRN (00:07)
[2024-02-22 00:32] VITALS: O2SAT 97
[2024-02-22 01:12] VITALS: TEMP 98.1
[2024-02-22 07:03] LABS: Absolute Basophils 0.1 K/uL (0-0.5); Absolute Eosinophils 0.4 K/uL (0-0.5); Absolute Lymphocytes (CBC) 1.3 K/uL (0.7-4.9); Absolute Monocytes 0.6 K/uL (0.1-1.3); Absolute Neutrophil 5.2 K/uL (1.8-8.0); Basophils % 1.3 % (0-1.3); Hemoglobin 8.1 g/dL (13.6-17.9); Lymphocytes % 16.9 % (15.3-44.8); MCH 29.5 pg (27.0-35.0); MCHC 32.6 g/dL (32.0-36.0); MCV 90.4 fL (80-100); MPV 7.9 fL (7.6-11.3); Monocytes % 8.2 % (3.3-12.3); Neutrophils % 68.6 % (41.7-73.7); Platelets 201 thou/uL (152-406); RBC Red Blood Cell Count 2.76 M/uL (4.33-5.43); Red Cell Distribution Width 15.3 % (12.1-15.2)
[2024-02-22 07:30] LABS: Anion Gap 11.7 mEq/L (5.0-15.0); Magnesium 1.9 mg/dL (1.6-2.4); Potassium 4.7 mEq/L (3.5-5.1); Troponin High Sensitivity 31.5 pg/mL (<58.9)
--- NOTE | 2024-02-22 10:59 | P.DS ---
Admission Date: 02/21/24 Discharge Date: 02/22/24 Disposition: ROUTINE DISCHARGE Discharge Condition: GOOD Reason for Admission: palpitations Brief History of Present Illness: 48-year-old man with a past medical history significant for CHF, ESRD on hemodialysis, HTN, and DM [id number] presented to the emergency department complaining of palpitations that began about 2 weeks ago. The patient states that his palpitations have been intermittent up until today. Today, he reports the palpitations have gotten slightly worse and more frequent. Also, the patient is scheduled for hemodialysis tomorrow for his ESRD. The pa shanelle states that he has not attempted anything to improve his palpitations, and states nothing worsens. Recently, the patient had a three-vessel CABG procedure performed December 2023. Compared to a past visit, (01/12) his BNP is now slightly elevated. He denies fever. - Physical Exam General: Alert, Oriented x3 HEENT: Atraumatic, Normocephalic Neck: JVD not distended Respiratory: Normal air movement Cardiovascular: Regular rate/rhythm, No gallops, No rubs, No murmurs Gastrointestinal: Normal bowel sounds, Non-distended Musculoskeletal: No swelling, No tenderness, No warmth Neurological: Normal strength at 5/5 x4 extr, Sensation intact Hospital Course: 48-year-old man with a past medical history significant for CHF, ESRD on hemodialysis, HTN, and DM [id number] presented to the emergency department complaining of palpitations that began about 2 weeks ago. The patient states that his palpitations have been intermittent up until today. Today, he reports the palpitations have gotten slightly worse and more frequent. He was evaluated by nephrology, received hemodialysis yesterday. Per nephrology he can follow-up outpatient for nephrology. Chest pain, palpitation has resolved, troponins have been negative per cardiology patient can follow-up outpatient. Follow-up with PCP in 1 week Discharge medication Coreg 25 1 p.o. twice daily Hydralazine 25 1 p.o. 4 times daily as needed systolic greater than 160 resume other home antihypertension Assessment Hypertensive emergency-treated with as needed antihypertensives, discharged home with as needed hydralazine End-stage renal disease on hemodialysis-received dialysis yesterday. Stable to discharge home follow-up with outpatient dialysis schedule Chest pain resolved with hemodialysis-per cardiology needs to follow-up outpatient call office for Palpitation resolved with hemodialysis Continue home medicines as previously prescribed GOAL: Clear understanding of disease process INSTRUCTIONS: Physician Discharge Instructions: -Follow-up with cardiology outpatient, call office 4 point -Follow-up with nephrology outpatient with hemodialysis schedule -Follow-up with PCP in 1 to 2 weeks -Please call Dr. Alaniz at [phone] if any questions regarding hospital stay -Please call nursing station at [phone] if any nursing or medication questions -Return to the emergency room if symptoms worsen Diet: ADA, low sodium Activity: Fall precautions Vital Signs/Physical Exam: Temp Pulse Resp BP Pulse Ox 98.1 F 70 16 178/73 H 96 02/22/24 04:00 02/22/24 08:45 02/22/24 04:00 02/22/24 08:45 02/22/24 04:00 Laboratory Data at Discharge: WBC 7.60 thou/uL (4.3-10.9) 02/22/24 06:19 Hgb 8.1 g/dL (13.6-17.9) L 02/22/24 06:19 Hct 25.0 % (39.6-49.0) L 02/22/24 06:19 Plt Count 201 thou/uL (152-406) 02/22/24 06:19 PT 13.4 SECONDS (9.4-12.5) H 02/20/24 16:27 INR 1.20 02/20/24 16:27 Sodium 135 mEq/L (136-145) L 02/22/24 06:19 Potassium 4.7 mEq/L (3.5-5.1) 02/22/24 06:19 BUN 39 mg/dL (7-18) H 02/22/24 06:19 Creatinine 7.72 mg/dL (0.70-1.30) H 02/22/24 06:19 Glucose 183 mg/dL (74-106) H 02/22/24 06:19 Phosphorus 4.3 mg/dL (2.5-4.9) 02/21/24 10:21 Magnesium 1.9 mg/dL (1.6-2.4) 02/22/24 06:19 Total Bilirubin 0.3 mg/dL (0.2-1.0) 02/21/24 10:21 AST < 10 U/L (15-37) L 02/21/24 10:21 ALT < 14 U/L (16-61) L 02/21/24 10:21 Alkaline Phosphatase 113 U/L (45-117) 02/21/24 10:21 Triglycerides 135 mg/dL (<150) 02/21/24 06:07 Cholesterol 85 mg/dL (<200) 02/21/24 06:07 HDL Cholesterol 29 mg/dL (40-60) L 02/21/24 06:07 Cholesterol/HDL Ratio 2.93 02/21/24 06:07 Home Medications: Gabapentin [Neurontin*] 100 mg PO BID 30 Days #90 cap 09/26/21 Blood Sugar Diagnostic [Glucose Test Strip] 1 each MC 30 MIN BEFORE HS #100 strip 12/17/21 Diabetic Supplies,Miscell [Cequr Simplicity Marine Extension Agent] 1 each MC DAILY 30 Days 12/17/21 Furosemide [Lasix*] 40 mg PO BIDL #60 tab 12/17/21 Insulin Glargine,Hum.rec.anlog [Semglee] 20 unit SQ BEDTIME #10 ml 12/17/21 Lancets/Blood Glucose Strips [[facility] Lancet 30G-Gluc Tst Strp] 1 each MC 30 MIN BEFORE HS #100 strip 12/17/21 Amlodipine [Norvasc*] 10 mg PO DAILY 30 Days #30 tab 02/18/22 Calcium Acetate [Phoslo*] 667 mg PO TIDWM 30 Days #90 tab 02/18/22 Omeprazole [Prilosec] 40 mg PO DAILY 30 Days #30 cap 02/18/22 Losartan Potassium [Cozaar*] 100 mg PO DAILY #60 tab 08/08/22 Aspirin [Aspirin EC 81 MG] 81 mg PO DAILY 01/29/23 Rivaroxaban [Xarelto] 2.5 mg PO DAILY 01/29/23 Sevelamer Carbonate [Renvela] 800 mg PO DAILY 01/29/23 levoFLOXacin [Levaquin] 750 mg PO DAILY 7 Days #7 tab 05/12/23 Carvedilol [Coreg] 25 mg PO BID 30 Days #60 tab 02/22/24 Hydralazine [Apresoline*] 25 mg PO QID PRN 10 Days #30 tab 02/22/24 New Medications: Hydralazine [Apresoline*] 25 mg PO QID PRN 10 Days #30 tab PRN Reason: Goal To Achieve Sbp In Comment Carvedilol [Coreg] 25 mg PO BID 30 Days #60 tab Physician Discharge Instructions: 48-year-old man with a past medical history significant for CHF, ESRD on hemodialysis, HTN, and DM [id number] presented to the emergency department complaining of palpitations that began about 2 weeks ago. The patient states that his palpitations have been intermittent up until today. Today, he reports the palpitations have gotten slightly worse and more frequent. He was evaluated by nephrology, received hemodialysis yesterday. Per nephrology he can follow-up outpatient for nephrology. Chest pain, palpitation has resolved, troponins have been negative per cardiology patient can follow-up outpatient. Follow-up with PCP in 1 week Assessment End-stage renal disease on hemodialysis-received dialysis yesterday. Stable to discharge home follow-up with outpatient dialysis schedule Chest pain resolved with hemodialysis-per cardiology needs to follow-up outpatient call office for Palpitation resolved with hemodialysis Continue home medicines as previously prescribed GOAL: Clear understanding of disease process INSTRUCTIONS: Physician Discharge Instructions: -Follow-up with cardiology outpatient, call office 4 point -Follow-up with nephrology outpatient with hemodialysis schedule -Follow-up with PCP in 1 to 2 weeks -Please call Dr. Alaniz at [phone] if any questions regarding hospital stay -Please call nursing station at [phone] if any nursing or medication questions -Return to the emergency room if symptoms worsen Diet: ADA, low sodium Activity: Fall precautions Followup: Elliott Bajwa [ACTIVE - CAN ADMIT] - Maximiliano Lewis MD [ACTIVE - CAN ADMIT] - Tammy Paul [Primary Care Provider] - Time spent managing pt's care (in minutes): 55
[2024-02-22] MEDS: HYDRALAZINE HCL 25 MG TABLET PO ONE (12:13)
[2024-02-22 12:44] VITALS: BP 155/71
--- NOTE | 2024-02-23 12:19 | EKG ---
Test Date: 2024-02-20 Test Time: 14:52:14 Industrial [employer]: ZIGGY MEASUREMENT RESULTS: Intervals: Rate: 77 ID: [id number] QRSD: 98 QT: 428 QTc: 484 Riggins: P: 70 ID: [id number] QRS: -44 T: 134 INTERPRETIVE STATEMENTS: Normal sinus rhythm Left axis deviation Minimal voltage criteria for LVH, may be normal variant T wave abnormality, consider lateral ischemia Prolonged QT Abnormal ECG Compared to ECG 02/14/2024 13:11:29 Left-axis deviation now present Left ventricular hypertrophy now present Left anterior fascicular block no longer present T-wave abnormality still present Possible ischemia still present Electronically Signed On 02-23-24 12:16:16 [employer]LE OFFICER by Maximiliano Lewis
== END 2024-02-22 12:22 | disposition home or self-care (01) | DRG 291 ==
LOC: ER 14:25 → ERHOLD 18:45 → 2ND 19:47 → OBSVTOIN 02-21 15:18
PROVIDERS: ADMIT Hospitalist; ATTEND Internal Medicine Sleep Medicine
PROC: 5A1D70Z Performance of Urinary Filtration, Intermittent, Less than 6 Hours Per Day (ICD-10-PCS; principal; 2024-02-21)
DX: I13.2 Hypertensive heart and chronic kidney disease with heart failure and with stage 5 chronic kidney disease, or end stage renal disease (principal); I50.43 Acute on chronic combined systolic (congestive) and diastolic (congestive) heart failure; N18.6 End stage renal disease; I16.1 Hypertensive emergency; E11.22 Type 2 diabetes mellitus with diabetic chronic kidney disease; E11.42 Type 2 diabetes mellitus with diabetic polyneuropathy; D63.1 Anemia in chronic kidney disease; D50.9 Iron deficiency anemia, unspecified; E78.5 Hyperlipidemia, unspecified; Z99.2 Dependence on renal dialysis; Z60.2 Problems related to living alone; Z79.4 Long term (current) use of insulin; Z95.1 Presence of aortocoronary bypass graft; Z79.82 Long term (current) use of aspirin; Z79.01 Long term (current) use of anticoagulants; Z79.899 Other long term (current) drug therapy
CPT/HCPCS: 36415; 71045; 80048; 80061; 80076; 81001; 82947; 83036; 83605; 83735; 83880; 84100; 84443; 84484; 85025; 85610; 87340; 90935; 93005; 99285; G0378; J0360; J1644; J1940

== ENCOUNTER 2024-03-19 03:02 | Inpatient (IN) | payer BC, OTHER ==
[2024-03-19] MEDS ORDERED: METOPROLOL TARTRATE 5 MG/5 ML INJ IV ONE ×2 (03:46→04:00)
[2024-03-19] MEDS ORDERED: NA CHLORIDE 0.9% 1,000 ML ONE (03:47)
[2024-03-19] MEDS ORDERED: ALBUMIN HUMAN 25% 100 ML IV ONE ×2 (03:47→04:29)
[2024-03-19 04:09] LABS: Absolute Basophils 0.1 K/uL (0-0.5); Absolute Eosinophils 0.3 K/uL (0-0.5); Absolute Lymphocytes (CBC) 1.6 K/uL (0.7-4.9); Absolute Monocytes 0.8 K/uL (0.1-1.3); Absolute Neutrophil 4.7 K/uL (1.8-8.0); Eosinophils % 3.8 % (0-4.4); Hematocrit 26.7 % (39.6-49.0); Hemoglobin 8.8 g/dL (13.6-17.9); Lymphocytes % 21.7 % (15.3-44.8); MCH 30.5 pg (27.0-35.0); MCHC 32.8 g/dL (32.0-36.0); MCV 93.1 fL (80-100); MPV 8.1 fL (7.6-11.3); Monocytes % 10.3 % (3.3-12.3); Neutrophils % 63.2 % (41.7-73.7); PT Prothrombin Time 14.1 SECONDS (9.4-12.5); Platelets 211 thou/uL (152-406); Protime INR 1.27; RBC Red Blood Cell Count 2.87 M/uL (4.33-5.43); Red Cell Distribution Width 16.4 % (12.1-15.2)
[2024-03-19] MEDS ORDERED: dilTIAZem HCL 25 MG/5 ML VIAL IV ONE ×2 (04:28→05:46)
[2024-03-19] MEDS ORDERED: NA CHLORIDE 0.9% 500 ML ONE (04:28)
[2024-03-19 04:43] LABS: Albumin 3.3 g/dL (3.4-5.0); Albumin/Globulin Ratio 0.8 (1.1-1.8); Anion Gap 12.4 mEq/L (5.0-15.0); Bilirubin Direct 0.2 mg/dL (0-0.2); Bilirubin Indirect, Calculated 0.2 mg/dL (0.2-0.8); Bilirubin Total 0.4 mg/dL (0.2-1.0); Magnesium 2.1 mg/dL (1.6-2.4); Potassium 4.4 mEq/L (3.5-5.1); Protein, Total 7.3 g/dL (6.4-8.2); Troponin High Sensitivity 41.6 pg/mL (<58.9)
[2024-03-19] MEDS ORDERED: NA CHLORIDE 0.9% 100 ML ONE (05:46)
--- NOTE | 2024-03-19 06:12 | RAD REPORT ---
PROCEDURE: XR Chest, 1 View CLINICAL INDICATION: The patient is 48 years old and is Male; CHEST PAIN Bed Name: 6 TECHNIQUE: Frontal view of the chest. COMPARISON: 12/09/2022 chest radiograph FINDINGS: LUNGS: Relatively low lung volumes bilaterally. Allowing for this and patient positioning, no focal consolidation. PLEURAL SPACE: No appreciable pleural effusion or pneumothorax. HEART: Coronary artery bypass graft (CABG). MEDIASTINUM: Slightly increased prominence of the cardiomediastinal silhouette, though likely exagg erated secondary to portable technique, lordotic positioning, and patient body habitus. BONES/JOINTS: Median sternotomy. IMPRESSION: Low lung volumes bilaterally. Allowing for this and patient positioning, no acute chest findings. Electronically signed by: Romaine Gutierrez MD 03/19/2024 04:06 AM [facility] Due to temporary technical issues with the PACS/[employer] reporting system, reports are being ralph d by the in-house radiologist without review as a courtesy to ensure prompt reporting the interpreting radiologist is fully responsible for the content of the report. Transcribed Date/Time: 03/19/2024 6:12 AM
--- NOTE | 2024-03-19 06:52 | EDPHYS ---
Physician Documentation [facility] Name: Chava Pate Age: 48 yrs Sex: Male : 1975 Arrival Date: 03/19/2024 Time: 03:02 Bed 6 Private MD: ED Physician Bk Hassan HPI: 03/19 04:51 This 48 yrs old Male presents to ER via Ambulatory with complaints of elevated sp4 heart rate. 06:45 48-year-old male with past medical history of congestive heart failure, end-stage renal sp4 disease on hemodialysis, hypertension diabetes presents with complaint of rapid heart rate. Patient developed rapid heart rate yesterday evening and today he presents with heart rate at 146 bpm. Patient reports that he is otherwise asymptomatic.. Historical: - Home Meds: 03:23 Ambien Oral [Active]; carvedilol oral [Active]; gabapentin oral [Active]; Lasix Oral al5 [Active]; losartan oral [Active]; - PMHx: 03:23 Congestive heart failure; ESRD; Hypertension; IDDM; Kidney failure- dialysis (Left arm al5 fistula); neuropathy; - PSHx: 03:23 Left arm fistula; triple heart bypass (rm); al5 - Immunization history:: Adult Immunizations up to date. - Infectious Disease History:: Denies. - Social history:: Smoking status: Patient denies any tobacco usage or history of. - Family history:: not pertinent. ROS: 06:45 Constitutional: Negative for fever, chills, and weight loss, sp4 06:45 All other systems are negative, Exam: 06:45 Constitutional: This is a well developed, well nourished patient who is awake, alert, sp4 and in no acute distress. Head/Face: Normocephalic, atraumatic. Eyes: Pupils equal round and reactive to light, extra-ocular motions intact. Lids and lashes normal. Conjunctiva and sclera are not injected. Cornea within normal limits. Periorbital areas with no swelling, redness, or edema. ENT: Nares patent. No nasal discharge, no septal abnormalities noted. Tympanic membranes are normal and external auditory canals are clear. Oropharynx with no redness, swelling, or masses, exudates, or evidence of obstruction, uvula midline. Mucous membranes moist. Neck: Trachea midline, no thyromegaly or masses palpated, and no cervical lymphadenopathy. Supple, full range of motion without nuchal rigidity, or vertebral point tenderness. Chest/axilla: Normal chest wall appearance and motion. Nontender with no deformity. No lesions are appreciated. Cardiovascular: Regular pulses, Tachycardia, regular tachycardia . No gallops, murmurs, or rubs. Normal PMI, no JVD. No pulse deficits. Respiratory: Lungs have equal breath sounds bilaterally, clear to auscultation and percussion. No rales, rhonchi or wheezes noted. No increased work of breathing, no retractions or nasal flaring. Abdomen/GI: Soft, with normal bowel sounds. No distension or tympany. No guarding or rebound. No evidence of tenderness throughout. Back: No spinal tenderness. No costovertebral tenderness. Skin: Warm, dry with normal turgor. Normal color with no rashes, no lesions, and no evidence of cellulitis. MS/ Extremity: Pulses equal, no cyanosis. Neurovascular intact. Full, normal range of motion. Neuro: Awake and alert, GCS 15, oriented to person, place, time, and situation. Cranial nerves II-XII grossly intact. Motor strength 5/5 in all extremities. Sensory grossly intact. Psych: Awake, alert, with orientation to person, place and time. Behavior, mood, and affect are within normal limits 06:45 ECG was reviewed by the Attending Physician. EKG at 0 319 tachycardia at rate 145, irregular, atrial flutter rate 145. 06:45 Repeat EKG after Cardizem 0 559 atrial fibrillation with RVR rate 119. Prolonged sp4 QT Vital Signs: 03:21 BP 148 / 96; Pulse 145; Resp 17; Temp 97.8; Pulse Ox 97% on R/A; Weight 102.06 kg; al5 Height 5 ft. 8 in. ; Pain 0/10; 04:09 BP 124 / 81; Pulse 144; Resp 18 S; Pulse Ox 94% on R/A; ha1 04:15 BP 112 / 86; Pulse 144; Resp 20; Pulse Ox 96% on R/A; al5 04:30 BP 114 / 82; Pulse 141; Resp 19; Pulse Ox 96% on R/A; al5 04:45 BP 123 / 79; Pulse 86; Resp 19; Pulse Ox 96% on R/A; al5 05:00 BP 137 / 90; Pulse 118; Resp 19; Pulse Ox 97% on R/A; al5 05:15 BP 128 / 91; Pulse 122; Resp 19; Pulse Ox 98% on R/A; al5 05:30 BP 124 / 91; Pulse 88; Resp 18; Pulse Ox 97% on R/A; al5 05:45 BP 140 / 91; Pulse 131; Resp 19; Pulse Ox 97% on R/A; al5 06:00 BP 142 / 109; Pulse 129; Resp 18; Pulse Ox 98% on R/A; al5 06:30 BP 149 / 104; Pulse 126; Resp 18; Pulse Ox 96% on R/A; al5 07:00 BP 134 / 99; Pulse 126; Resp 18; Pulse Ox 97% on R/A; al5 07:21 BP 134 / 99; Pulse 113; Resp 21; Pulse Ox 99% ; ko1 09:39 BP 110 / 88; Pulse 95; Resp 16; Pulse Ox 99% ; ko1 03:21 Body Mass Index 34.21 (102.06 kg, 172.72 cm) al5 03:21 Pain Scale: Adult al5 MDM: 03:26 Medical Screening Exam initiated sp4 04:51 ED course: PROCEDURE: XR Chest, 1 View CLINICAL INDICATION: The patient is 48 years old sp4 and is Male; CHEST PAIN Bed Name: 6 TECHNIQUE: Frontal view of the chest. COMPARISON: 12/09/2022 chest radiograph FINDINGS: LUNGS: Relatively low lung volumes bilaterally. Allowing for this and patient positioning, no focal consolidation. PLEURAL SPACE: No appreciable pleural effusion or pneumothorax. HEART: Coronary artery bypass graft (CABG). MEDIASTINUM: Slightly increased prominence of the cardiomediastinal silhouette, though likely exaggerated secondary to portable technique, lordotic positioning, and patient body habitus. BONES/JOINTS: Median sternotomy. IMPRESSION: Low lung volumes bilaterally. Allowing for this and patient positioning, no acute chest findings. 06:52 Differential diagnosis: arrythmia, dehydration, stress disorder. Data reviewed: vital sp4 signs, nurses notes, EMS record, old medical records, lab test result(s), EKG, radiologic studies, CT scan. Consideration of Admission/Observation Patient was admitted/placed on observation. Escalation of care including admission/observation considered. Management of patient was discussed with the following: Pediatric Dental Assistant: Admit Team, Cardiology . 03/19 03:26 Order name: Urine Drug Screen 4 03/19 03:31 Order name: Basic Metabolic Panel; Complete Time: 06:44 4 03/19 03:31 Order name: CBC with Diff; Complete Time: 06:44 [facility] 03/19 03:31 Order name: LFT's; Complete Time: 06:44 [facility] 03/19 03:31 Order name: Magnesium; Complete Time: 06:44 [facility] 03/19 03:31 Order name: NT PRO-BNP; Complete Time: 06:44 [facility] 03/19 03:31 Order name: PT-INR; Complete Time: 06:44 [facility] 03/19 03:31 Order name: Troponin HS; Complete Time: 06:44 [facility] 03/19 05:40 Order name: Troponin High Sensitivity; Complete Time: 06:44 [facility] 03/19 08:32 Order name: Urinalysis w/ reflexes EDMS 03/19 08:32 Order name: Basic Metabolic Panel EDMS 03/19 08:32 Order name: Basic Metabolic Panel EDMS 03/19 08:32 Order name: Basic Metabolic Panel EDMS 03/19 08:32 Order name: Basic Metabolic Panel EDMS 03/19 08:32 Order name: Basic Metabolic Panel EDMS 03/19 08:32 Order name: Basic Metabolic Panel EDMS 03/19 08:32 Order name: CBC with Automated Diff EDMS 03/19 08:32 Order name: CBC with Automated Diff EDMS 03/19 08:32 Order name: CBC with Automated Diff EDMS 03/19 08:32 Order name: CBC with Automated Diff EDMS 03/19 08:32 Order name: CBC with Automated Diff EDMS 03/19 08:32 Order name: CBC with Automated Diff EDMS 03/19 08:32 Order name: Magnesium EDMS 03/19 08:32 Order name: Magnesium EDMS 03/19 08:32 Order name: Magnesium EDMS 03/19 08:32 Order name: Magnesium EDMS 03/19 08:32 Order name: Magnesium EDMS 03/19 08:32 Order name: Magnesium EDMS 03/19 08:32 Order name: Phosphorus EDMS 03/19 08:32 Order name: Phosphorus EDMS 03/19 08:32 Order name: Phosphorus EDMS 03/19 08:32 Order name: Phosphorus EDMS 03/19 08:32 Order name: Phosphorus EDMS 03/19 08:32 Order name: Phosphorus EDMS 03/19 08:32 Order name: Troponin High Sensitivity EDMS 03/19 08:32 Order name: Troponin High Sensitivity EDMS 03/19 08:32 Order name: Troponin High Sensitivity EDMS 03/19 03:31 Order name: XRAY Chest (1 view) 4 03/19 08:32 Order name: Echo with Doppler EDAR 03/19 05:40 Order name: EKG; Complete Time: 05:41 sp4 03/19 03:31 Order name: Cardiac monitoring; Complete Time: 04:00 sp4 03/19 03:31 Order name: EKG - Nurse/Tech; Complete Time: 04:00 4 03/19 03:31 Order name: IV Saline Lock; Complete Time: 04:07 sp4 03/19 03:31 Order name: Labs collected and sent; Complete Time: 04:07 sp4 03/19 03:31 Order name: O2 Per Protocol; Complete Time: 04:07 4 03/19 03:31 Order name: O2 Sat Monitoring; Complete Time: 04:07 4 03/19 05:41 Order name: EKG - Nurse/Tech; Complete Time: 06:02 sp4 EC:45 Rate is 145 beats/min. Rhythm is irregularly irregular, A flutter. QRS Tsaile is Normal. sp4 QRS interval is normal. QT interval is normal. T waves are Normal. Clinical impression: Atrial Flutter. Interpreted by me. Reviewed by me. Administered Medications: 03:55 Drug: Metoprolol IVP 5 mg IVP every 5 minutes; Hold for SBP < 100 or HR < 60. x3 Route: ha1 IVP; Site: right antecubital; 03:58 Drug: NS 0.9% IV 1000 ml IV at 75 ml/hr continuous Route: IV; Rate: 75 ml/hr; Site: ha1 right antecubital; 10:26 Follow up: IV Status: Infusion continued upon admission ko1 03:58 Drug: Albumin IVPB 25 grams 100 ml IVPB once; (Note: Albumin 25% concentration) Volume: ha1 100 ml; Route: IVPB; Site: right antecubital; 10:26 Follow up: Response: No adverse reaction ko1 10:26 Follow up: IV Intake: 100ml ko1 10:27 Follow up: IV Status: Completed infusion ko1 04:07 Drug: Metoprolol IVP 5 mg IVP every 5 minutes; Hold for SBP < 100 or HR < 60. x3 Route: ha1 IVP; Site: right antecubital; 04:38 Drug: Albumin IVPB 25 grams 100 ml IVPB once; (Note: Albumin 25% concentration) Volume: al5 100 ml; Route: IVPB; Site: right antecubital; 05:38 Follow up: Response: No adverse reaction; IV Status: Completed infusion; IV Intake: al5 100ml 04:39 Drug: Diltiazem IVP 10 mg IVP once; Over 2 minutes Route: IVP; Site: right antecubital; al5 05:38 Follow up: Response: No adverse reaction; No adverse reaction; HR decreased al5 05:39 Not Given (Physician Discretion): ns 0.9% 500 ml 500 ml IV at 1 bolus once; to be given al5 as a bolus over 30 minutes 06:02 Drug: Diltiazem IV 5 mg/hr IV at calculated rate See Administration Instructions; al5 (standard dilution 125 mg diltiazem mixed in 125 mL NS; final concentration 1mg/mL). Recommended max rate 15 mg/hr; Titrate 5 mg/hr as often as every 15 minutes to achieve goal (see titration policy); Goal parameter HR less than 100 bpm Route: IV; Rate: calculated rate; Site: right antecubital; 07:33 Follow up: Response: No adverse reaction; Rate change 10 mg/hr ko1 09:40 Follow up: Response: No adverse reaction; IV Status: Infusion continued upon admission ko1 10:25 Follow up: IV Status: Infusion continued upon admission ko1 Disposition Summary: 03/19/24 06:52 Hospitalization Ordered Notes: Hospitalization Status: Inpatient Admission sp4 Provider: Chava Phelan spBobby Condition: Stable sp4 Problem: new sp4 Symptoms: have improved sp4 Bed/Room Type: Standard sp4 Location: Intensive Care Unit(03/19/24 09:25) Room Assignment: 3-(03/19/24 09:25) ss Diagnosis - Atrial fibrillation with rapid ventricular response, recurrent end-stage renal sp4 disease Forms: - Medication Reconciliation Form sp4 - SBAR form sp4 - Leadership Thank You Letter sp4 Critical care time excluding procedures: 06:50 Critical care time: Bedside Care: 36 minutes, Consultation: 12 minutes, Family sp4 Intervention: 12 minutes. Total time: 60 minutes Signatures: Dispatcher [employer] EDMS Sol Dodson Shelby, RN RN ss Allyson Grijalva RN RN ha1 Bk Hassan MD MD sp4 Radha Perales RN RN al5 Grace Egan RN ko1 Corrections: (The following items were deleted from the chart) 03:31 03:31 BASIC METABOLIC PANEL+C.LAB.BRZ ordered. EDMS EDMS 03:31 03:31 CBC+H.LAB.BRZ ordered. EDMS EDMS 03:31 03:31 HEPATIC FUNCTION+C.LAB.BRZ ordered. EDMS EDMS 03:31 03:31 MAGNESIUM+C.LAB.BRZ ordered. EDMS EDMS 03:31 03:31 PROBNP+C.LAB.BRZ ordered. EDMS EDMS 03:31 03:31 PROTIME (+INR)+COAG.LAB.BRZ ordered. EDMS EDMS 03:31 03:31 Troponin High Sensitivity+C.LAB.BRZ ordered. EDMS EDMS 03:31 03:31 Chest Single View+RAD.RAD.BRZ ordered. EDMS EDMS 08:58 06:52 sp4 sp 09:25 06:52 Telemetry/MedSurg (Inpatient) sp4 ss 09:25 08:58 230 sp
--- NOTE | 2024-03-19 06:52 | ER ---
Nurse's Notes [facility] Name: Chava Pate Age: 48 yrs Sex: Male : 1975 Arrival Date: 03/19/2024 Time: 03:02 Bed 6 Private MD: Diagnosis: Atrial fibrillation with rapid ventricular response, recurrent end-stage renal disease Presentation: 03/19 03:21 Chief complaint: Patient states: went to dialysis yesterday, only received half of his al5 treatment and was sent home for elevated HR. patient went home, took his meds, and went to sleep. woke up at 0100 this morning, felt off, took his vitals and his bp was good but HR was still elevated. patient denies CP or SOB. Coronavirus screen: At this time, the client does not indicate any symptoms associated with coronavirus-19. Ebola Screen: No symptoms or risks identified at this time. Initial Sepsis Screen: Does the patient meet any 2 criteria? HR > 90 bpm. No. Patient's initial sepsis screen is negative. Does the patient have a suspected source of infection? No. Patient's initial sepsis screen is negative. Risk Assessment: Do you want to hurt yourself or someone else? Patient reports no desire to harm self or others. Onset of symptoms was March 18, 2024. 03:21 Method Of Arrival: Ambulatory al5 03:21 Acuity: EDINSON 3 al5 Triage Assessment: 03:24 General: Appears in no apparent distress. comfortable, Behavior is calm, cooperative. al5 Pain: Denies pain. EENT: No signs and/or symptoms were reported regarding the EENT system. Neuro: Level of Consciousness is awake, alert, obeys commands, Oriented to person, place, time, situation. Cardiovascular: Capillary refill < 3 seconds Patient's skin is warm and dry. Cardiovascular: Reports elevated HR. Respiratory: Airway is patent Respiratory effort is even, unlabored, Respiratory pattern is regular, symmetrical. GI: Abdomen is flat, non-distended. : patient dialysis patient Tue, Thurs, Sat. L arm fistula. Derm: Skin is intact, is healthy with good turgor, Skin is pink, warm \T\ dry. normal. Musculoskeletal: No signs and/or symptoms reported regarding the musculoskeletal system. Historical: - Home Meds: 03:23 Ambien Oral [Active]; carvedilol oral [Active]; gabapentin oral [Active]; Lasix Oral al5 [Active]; losartan oral [Active]; - PMHx: 03:23 Congestive heart failure; ESRD; Hypertension; IDDM; Kidney failure- dialysis (Left arm al5 fistula); neuropathy; - PSHx: 03:23 Left arm fistula; triple heart bypass (rm); al5 - Immunization history:: Adult Immunizations up to date. - Infectious Disease History:: Denies. - Social history:: Smoking status: Patient denies any tobacco usage or history of. - Family history:: not pertinent. Screenin:26 [facility] ED Fall Risk Assessment (Adult) History of falling in the last 3 months, al5 including since admission No falls in past 3 months (0 pts) Confusion or Disorientation No (0 pts) Intoxicated or Sedated No (0 pts) Impaired Gait No (0 pts) Mobility Assist Device Used No (0 pt) Altered Elimination No (0 pt) Score/Fall Risk Level 0 - 2 = Low Risk Oriented to surroundings, Maintained a safe environment, Hourly rounding (assess needs \T\ fall precautionary measures) done. Abuse screen: Denies threats or abuse. Denies injuries from another. Nutritional screening: No deficits noted. Tuberculosis screening: No symptoms or risk factors identified. Assessment: 03:26 Reassessment: see triage assessment. al5 04:10 Reassessment: Patient and/or family updated on plan of care and expected duration. Pain ha1 level reassessed. Patient is alert, oriented x 3, equal unlabored respirations, skin warm/dry/pink. Patient states symptoms have not improved. 05:08 Reassessment: Patient appears in no apparent distress at this time. No changes from al5 previously documented assessment. Patient and/or family updated on plan of care and expected duration. Pain level reassessed. Patient is alert, oriented x 3, equal unlabored respirations, skin warm/dry/pink. 06:01 Reassessment: Patient appears in no apparent distress at this time. No changes from al5 previously documented assessment. Patient and/or family updated on plan of care and expected duration. Pain level reassessed. Patient is alert, oriented x 3, equal unlabored respirations, skin warm/dry/pink. 07:00 Reassessment: RECD REPORT FROM MICHELLE MEDRANO. 48YO ESRD PT P/W NEW AFIB. ADMIT INITIATED. bp 09:37 Reassessment: Liz states they need to move a patient out before we can bring this ko1 one up, she will call me when ready. Vital Signs: 03:21 BP 148 / 96; Pulse 145; Resp 17; Temp 97.8; Pulse Ox 97% on R/A; Weight 102.06 kg; al5 Height 5 ft. 8 in. ; Pain 0/10; 04:09 BP 124 / 81; Pulse 144; Resp 18 S; Pulse Ox 94% on R/A; ha1 04:15 BP 112 / 86; Pulse 144; Resp 20; Pulse Ox 96% on R/A; al5 04:30 BP 114 / 82; Pulse 141; Resp 19; Pulse Ox 96% on R/A; al5 04:45 BP 123 / 79; Pulse 86; Resp 19; Pulse Ox 96% on R/A; al5 05:00 BP 137 / 90; Pulse 118; Resp 19; Pulse Ox 97% on R/A; al5 05:15 BP 128 / 91; Pulse 122; Resp 19; Pulse Ox 98% on R/A; al5 05:30 BP 124 / 91; Pulse 88; Resp 18; Pulse Ox 97% on R/A; al5 05:45 BP 140 / 91; Pulse 131; Resp 19; Pulse Ox 97% on R/A; al5 06:00 BP 142 / 109; Pulse 129; Resp 18; Pulse Ox 98% on R/A; al5 06:30 BP 149 / 104; Pulse 126; Resp 18; Pulse Ox 96% on R/A; al5 07:00 BP 134 / 99; Pulse 126; Resp 18; Pulse Ox 97% on R/A; al5 07:21 BP 134 / 99; Pulse 113; Resp 21; Pulse Ox 99% ; ko1 09:39 BP 110 / 88; Pulse 95; Resp 16; Pulse Ox 99% ; ko1 03:21 Body Mass Index 34.21 (102.06 kg, 172.72 cm) al5 03:21 Pain Scale: Adult al5 ED Course: 03:06 Patient arrived in ED. gm2 03:21 Michelle Perales RN is Primary Nurse. al5 03:21 Bk Hassan MD is Attending Physician. al5 03:23 Triage completed. al5 03:26 Arm band placed on right wrist. Patient placed in the treatment room, on a stretcher. al5 03:26 Patient has correct armband on for positive identification. Bed in low position. Call al5 light in reach. Side rails up X2. Provided Education on: plan of care. 03:26 No provider procedures requiring assistance completed. al5 04:00 XRAY Chest (1 view) In Process Unspecified. EDMS 04:00 EKG done, by vascular technologist sonographer. af3 06:50 Chava Phelan is Hospitalizing Provider. sp4 09:38 Patient admitted, IV remains in place. ko1 Administered Medications: 03:55 Drug: Metoprolol IVP 5 mg IVP every 5 minutes; Hold for SBP < 100 or HR < 60. x3 Route: ha1 IVP; Site: right antecubital; 03:58 Drug: NS 0.9% IV 1000 ml IV at 75 ml/hr continuous Route: IV; Rate: 75 ml/hr; Site: ha1 right antecubital; 10:26 Follow up: IV Status: Infusion continued upon admission ko1 03:58 Drug: Albumin IVPB 25 grams 100 ml IVPB once; (Note: Albumin 25% concentration) Volume: ha1 100 ml; Route: IVPB; Site: right antecubital; 10:26 Follow up: Response: No adverse reaction ko1 10:26 Follow up: IV Intake: 100ml ko1 10:27 Follow up: IV Status: Completed infusion ko1 04:07 Drug: Metoprolol IVP 5 mg IVP every 5 minutes; Hold for SBP < 100 or HR < 60. x3 Route: ha1 IVP; Site: right antecubital; 04:38 Drug: Albumin IVPB 25 grams 100 ml IVPB once; (Note: Albumin 25% concentration) Volume: al5 100 ml; Route: IVPB; Site: right antecubital; 05:38 Follow up: Response: No adverse reaction; IV Status: Completed infusion; IV Intake: al5 100ml 04:39 Drug: Diltiazem IVP 10 mg IVP once; Over 2 minutes Route: IVP; Site: right antecubital; al5 05:38 Follow up: Response: No adverse reaction; No adverse reaction; HR decreased al5 05:39 Not Given (Physician Discretion): ns 0.9% 500 ml 500 ml IV at 1 bolus once; to be given al5 as a bolus over 30 minutes 06:02 Drug: Diltiazem IV 5 mg/hr IV at calculated rate See Administration Instructions; al5 (standard dilution 125 mg diltiazem mixed in 125 mL NS; final concentration 1mg/mL). Recommended max rate 15 mg/hr; Titrate 5 mg/hr as often as every 15 minutes to achieve goal (see titration policy); Goal parameter HR less than 100 bpm Route: IV; Rate: calculated rate; Site: right antecubital; 07:33 Follow up: Response: No adverse reaction; Rate change 10 mg/hr ko1 09:40 Follow up: Response: No adverse reaction; IV Status: Infusion continued upon admission ko1 10:25 Follow up: IV Status: Infusion continued upon admission ko1 Medication: 03:26 VIS not applicable for this client. al5 Intake: 05:38 IV: 100ml; Total: 100ml. al5 10:26 IV: 100ml; Total: 200ml. ko1 Outcome: 06:52 Decision to Hospitalize by Provider. sp4 09:38 Condition: stable ko1 09:38 Instructed on the need for admit, 10:24 Admitted to ICU accompanied by nurse, accompanied by tech, via stretcher, room 3, on ko1 monitor, with chart, Report called to MARCELA Saucedo 10:45 Patient left the ED. ko1 Signatures: Dispatcher [employer] EDMS Tre Philippe RN RN bp Ayala, Heidy, RN RN ha1 Grace Egan RN RN ko1 Potepalov, Sergey, MD MD sp4 Missy Curiel 2 Michelle Perales RN RN al5 Meka Priest af3 Corrections: (The following items were deleted from the chart) 04:10 04:10 Reassessment: Patient and/or family updated on plan of care and expected ha1 duration. Pain level reassessed. Patient is alert, oriented x 3, equal unlabored respirations, skin warm/dry/pink. ha1 10:24 09:38 Admitted to ICU accompanied by nurse, accompanied by tech, via stretcher, room 3, ko1 on monitor, with chart, Report called to Liz, RN ko1
--- NOTE | 2024-03-19 07:34 | P.HP ---
Certification for Inpatient Patient admitted to: Inpatient With expected LOS: >2 Midnights Practitioner: I am a practitioner with admitting privileges, knowledge of patient current condition, hospital course, and medical plan of care. Services: Services provided to patient in accordance with Admission requirements found in Title 42 Section 412.3 of the Code of Federal Regulations Patient History Date of Service: 03/19/24 Reason for admission: Afib with RVR History of Present Illness: Chava Pate is a 48 year old male with Pmhx CAD s/p CABG x3 coronary, ESRD on dialysis left arm fistula, CHF, DM-IDDM, who presents to the ED with chief complaint of rapid heart rate that started yesterday. He reports being at dialysis yesterday (03/18) when his heart rate increased requiring dialysis to end early. He is not sure what his heart rate was at that time. He felt unwell this morning at 1 AM and checked his BP and HR without significant increase. On arrival to the ED, his heart rate was at 146 with minimal response to metoprolol IV, a cardizem gtt was started. EKG showing Afib, Troponin 41.6/43.5, serum glucose 225, BNP 51,434, BUN/creatinine 46/7.51, GFR 8, alk phos 162. Initial vitals BP 148 / 96; Pulse 145; Resp 17; Temp 97.8; Pulse Ox 97% on R/A; Chest xray reports "Low lung volumes bilaterally. Allowing for this and patient positioning, no acute chest findings" Chava will be admitted to ICU to hospitalist service for further treatment of Afib with RVR, cardiology consulted. Allergies No Known Allergies Allergy (Verified 06/19/23 12:41) Home Medications: Amlodipine [Norvasc*] 10 mg PO DAILY 03/19/24 Aspirin 81 mg PO DAILY 03/19/24 Calcium Acetate 667 mg PO TIDWM 03/19/24 Carvedilol [Coreg] 25 mg PO BID 03/19/24 Furosemide [Lasix*] 40 mg PO BID 03/19/24 Hydralazine [Apresoline*] 25 mg PO QID PRN 03/19/24 Insulin Glargine,Hum.rec.anlog [Toujeo Max Solostar] 15 units SQ DAILY 03/19/24 Losartan Potassium [Cozaar] 100 mg PO DAILY 03/19/24 Omeprazole [Prilosec] 40 mg PO DAILY 03/19/24 Rivaroxaban [Xarelto] 2.5 mg PO DAILY 03/19/24 Sevelamer Carbonate [Renvela*] 800 mg PO TIDWM 03/19/24 - Past Medical/Surgical History Diabetic: Yes -: DM II with Polyneuropathy -: HLD -: HTN -: ESRD/ CKD with Proteinura (Dr. Rojas/ Garett) on HD , Fri -: Pulmonary HTN -: Left arm Fistula -: 3V CABG 01/12 Psychosocial/ Personal History: Patient lives at home alone. - Family History Father -: Diabetes Mother -: Stroke Notes: DM,HTN, ESRD, CABD with stents - Social History Smoking Status: Never smoker Alcohol use: No CD- Drugs: No Caffeine use: Yes Review of Systems Cardiovascular: Palpitations Physical Examination - Physical Exam General: Alert, In no apparent distress, Oriented x3 HEENT: Atraumatic, Normocephalic Neck: Supple, 2+ carotid pulse no bruit Respiratory: Clear to auscultation bilaterally, Normal air movement Cardiovascular: Normal pulses, Regular rate/rhythm, Normal S1 S2 Capillary refill: <2 Seconds Gastrointestinal: Normal bowel sounds, Soft and benign Musculoskeletal: No clubbing Integumentary: No rashes Neurological: Normal speech, Normal tone - Studies Laboratory Data (last 24 hrs) 03/19/24 03/19/24 03/19/24 03:53 03:53 03:53 WBC 7.50 Hgb 8.8 L Hct 26.7 L Plt Count 211 PT 14.1 H INR 1.27 Sodium 134 L Potassium 4.4 BUN 46 H Creatinine 7.51 H Glucose 225 H Magnesium 2.1 Total Bilirubin 0.4 AST 21 ALT 46 Alkaline Phosphatase 162 H Assessment and Plan - Plan Assessment and plan Afib with RVR Hx CAD s/p CABG (3 vessels) CHF -admit to ICU, on arrival HR 146 -Troponin 41.6/43.5, serial pending -BNP 51,434 -Contiunous telemetry -EKG showing Afib -cardizem and heparin gtt -consult Cardiology -Continue home medications ESRD (dialysis ) Anemia of chronic disease -BUN/creatinine 46/7.51, GFR 8, BNP 51.434, H/H 8.8/26.7 -Dr. Rojas consulted -Dialysis 03/18, Scheduled dialysis for 03/20 -Creatinine clearance 18 DM-IDDM -serum glucose 225 -Accucheck with SSI -A1C in the AM DVT ppx heparin gtt Full code LOS 2 days Discharge Plan: Home Plan to discharge in: 48 Hours - Advance Directives Does patient have a Living Will: No Does patient have a Durable POA for Healthcare: No
[2024-03-19] MEDS ORDERED: ACETAMINOPHEN 325 MG TABLET PO PRN (08:25)
--- NOTE | 2024-03-19 10:20 | CON ---
Date of Consultation: 03/19/2024 Reason For Consultation: Atrial fibrillation with rapid ventricular response. History Of Present Illness: This is a 48-year-old male with history of coronary artery disease, stat us post CABG, end-stage renal disease, on hemodialysis, congestive heart failure, diabetes, presented to the emergency room with palpitation. Heart rate was in the 150. He was having dialysis and was sent home early than usual as per his report and at home he was checking his blood pressure and his h eart rate on the machine was giving him 140-150, so presented to the emergency room. He was found to be in atrial fibrillation with rapid ventricular response, on Cardizem drip. Heart rate is controll ed. Denies having any symptoms at the present time. Past Medical History: As outlined above in the HPI. Medications: Refer to reconciliation sheet for detailed list. Allergies: NO KNOWN DRUG ALLERGIES. Family History: No premature coronary artery disease or cancer. Social History: Does not smoke or drink. Does not use any drugs. Review of Systems: All systems reviewed and they were negative except as mentioned in the HPI. Physical Examination: Vital Signs: Reviewed. Head and Neck: Pupils are equal, reactive to light. Intact eye movements. No JVD. No cervical lym phadenopathy. Neck is supple. Thyroid is not enlarged. Lungs: Clear to auscultation bilaterally. No rhonchi, wheezing, or crackles. No accessory muscle u se. Heart: Irregularly irregular. No extra sounds. Abdomen: Soft, nontender. Bowel sounds positive. No organomegaly. No masses or hernia. No rigidi ty or rebound. Extremities: No edema, clubbing, or cyanosis. Intact pulses. Skin: No rash. No nodules. Neurologic: Alert, awake, oriented x3. No acute focal deficits appreciated. Investigations: BUN 46, creatinine 7.5. Troponin 41, then 43, and hemoglobin is 8.8. Assessment And Recommendations: 1.Atrial fibrillation with rapid ventricular response. Agree with Cardizem drip and the patient was on metoprolol at home. Resume home metoprolol and start him on Cardizem 30 mg q.8 hours and keep hi m on the drip to overlap and also I recommend to start him on Eliquis 2.5 mg twice a day for stroke p revention. 2.Coronary artery disease. No chest pain. Troponins are negative. Continue home medication. 3.Hypertension. I will add Cardizem as above. His blood pressure is elevated and resume his home m etoprolol as well. 4.Dyslipidemia. Recommend Lipitor 40 mg q.h.s. Once his heart rate is well controlled, the Cardize m drip can be discontinued and adjust the oral medicines post discharge. SR/MODL Voice ID: [id number] Report ID: [id number]
--- NOTE | 2024-03-19 11:16 | P.CNS ---
Chief Complaint: Afib with RVR History of Present Illness: 48 year old male with Pmhx CAD s/p CABG x3 coronary, ESRD on dialysis left arm fistula TTS , CHF, DM-IDDM, who presents to the ED with rapid heart rate that started yesterday while he was on dialysis , nurses cut his session earlier and sent him home , pt denies any SOB or CP only felt the heart bounding . He at home pt has been checking HR and it was 140-150 . at presentation to ER Hr was 140s .. Afib , Nephrology was consulted for ESRD management .. pt admitted to ICU on Cardizem drip.. upon my evaluation , pt feels fine , no CP or SOB , no N/V , HR more stable at 90s , with BP at 140s/90s .. on room air. Allergies No Known Allergies Allergy (Verified 06/19/23 12:41) Home Medications: Gabapentin [Neurontin*] 100 mg PO BID 30 Days #90 cap 09/26/21 Blood Sugar Diagnostic [Glucose Test Strip] 1 each MC 30 MIN BEFORE HS #100 strip 12/17/21 Diabetic Supplies,Miscell [Cequr [employer] Administrator] 1 each MC DAILY 30 Days 12/17/21 Furosemide [Lasix*] 40 mg PO BIDL #60 tab 12/17/21 Insulin Glargine,Hum.rec.anlog [Semglee] 20 unit SQ BEDTIME #10 ml 12/17/21 Lancets/Blood Glucose Strips [Dhaval Lancet 30G-Gluc Tst Strp] 1 each MC 30 MIN BEFORE HS #100 strip 12/17/21 Amlodipine [Norvasc*] 10 mg PO DAILY 30 Days #30 tab 02/18/22 Calcium Acetate [Phoslo*] 667 mg PO TIDWM 30 Days #90 tab 02/18/22 Omeprazole [Prilosec] 40 mg PO DAILY 30 Days #30 cap 02/18/22 Losartan Potassium [Cozaar*] 100 mg PO DAILY #60 tab 08/08/22 Aspirin [Aspirin EC 81 MG] 81 mg PO DAILY 01/29/23 Rivaroxaban [Xarelto] 2.5 mg PO DAILY 01/29/23 Sevelamer Carbonate [Renvela] 800 mg PO DAILY 01/29/23 levoFLOXacin [Levaquin] 750 mg PO DAILY 7 Days #7 tab 05/12/23 Carvedilol [Coreg] 25 mg PO BID 30 Days #60 tab 02/22/24 Hydralazine [Apresoline*] 25 mg PO QID PRN 10 Days #30 tab 02/22/24 - Past Medical/Surgical History Diabetic: Yes -: DM II with Polyneuropathy -: HLD -: HTN -: ESRD/ CKD with Proteinura (Dr. Rojas/ Garett) on HD T, , Sat -: Pulmonary HTN -: Left arm Fistula -: 3V CABG 01/12 Psychosocial/ Personal History: Patient lives at home alone. - Family History Father Medical History: Diabetes Mother Medical History: Stroke Notes: DM,HTN, ESRD, CABD with stents - Social History Smoking Status: Unknown if ever smoked Alcohol use: No CD- Drugs: No Caffeine use: Yes Review of Systems Cardiovascular: Palpitations Gastrointestinal: No Distention Physical Examination Temp Pulse Resp BP Pulse Ox 97.8 F 95 H 16 110/88 03/19/24 03:21 03/19/24 09:39 03/19/24 09:39 03/19/24 09:39 General: Alert, In no apparent distress, Oriented x3, Cooperative HEENT: Atraumatic Neck: Supple Respiratory: Clear to auscultation bilaterally, Normal air movement Cardiovascular: No edema, Irregular heart rate/rhythm Gastrointestinal: Normal bowel sounds, No tenderness, No masses, No rebound Musculoskeletal: No clubbing, No swelling Integumentary: No rashes Laboratory Data (last 24 hrs) 03/19/24 03/19/24 03/19/24 03:53 03:53 03:53 WBC 7.50 Hgb 8.8 L Hct 26.7 L Plt Count 211 PT 14.1 H INR 1.27 Sodium 134 L Potassium 4.4 BUN 46 H Creatinine 7.51 H Glucose 225 H Magnesium 2.1 Total Bilirubin 0.4 AST 21 ALT 46 Alkaline Phosphatase 162 H Conclusions/Impression: ESRD : ON HD through left AVF , last HD was yesterday , however it was short session due to tachycardia no urgent need for HD today from metabolic and volume stand point , pt on room air HYpONA : mild , will be corrected by HD please stop any IVF , pt is able to tolerate diet Afib with RVR : on Cardizem drip and oral , along with bB , ok to start eliques at 2.5 bid CAD S/p CABG HTN
[2024-03-19 11:20] VITALS: BMI 34.1
[2024-03-19] MEDS: INSULIN REGULAR (HUMAN) 100 UNIT/ML SQ SCH (11:30)
[2024-03-19] MEDS: HEPARIN/D5W 25,000 UNIT/500 ML BAG IV SCH (12:20)
[2024-03-19] MEDS: PNEUMOCOCCAL VACCINE 0.5 ML IMVAC ONE (12:25)
[2024-03-19 13:59] LABS: Specific Gravity 1.013 (1.005-1.030); Sqamous Epithelial <5 /HPF (None Seen); Urine Bacteria None Seen /HPF (<20); Urine Bilirubin NEGATIVE (Negative); Urine Blood Trace (Negative); Urine Clarity Clear (Clear); Urine Color Light-Yellow (Yellow); Urine Culture Reflex Order NOT NEEDED; Urine Glucose 3+ (Negative); Urine Ketones NEGATIVE (Negative); Urine Microscopic Reflex YN ORDER UMIC; Urine Mucus Slight /HPF (None Seen); Urine Nitrite NEGATIVE (Negative); Urine Protein 4+ (Over) (Negative); Urine RBC <5 /HPF (None Seen); Urine Urobilinogen Normal (Normal); Urine WBC <5 /HPF (<5)
[2024-03-19 14:05] LABS: Barbiturates NEGATIVE (NEGATIVE); Benzodiazepines NEGATIVE (NEGATIVE); Cocaine NEGATIVE (NEGATIVE); METHAMPHETAM NEGATIVE (NEGATIVE); Methadone NEGATIVE (NEGATIVE); Opiates NEGATIVE (NEGATIVE); Phencyclidine NEGATIVE (NEGATIVE); THC Cannibis NEGATIVE (NEGATIVE)
--- NOTE | 2024-03-19 15:46 | RAD REPORT ---
EXAM: Chest Single View HISTORY: Shortness of breath, r/o volume overload COMPARISON: 03/19/2024 FINDINGS: LUNGS/PLEURA: Prominence of the central pulmonary vasculature. MEDIASTINUM: The mediastinal silhouette is within normal limits. CARDIAC: Cardiomegaly. UPPER ABDOMEN: No significant abnormality. BONES: No acute fracture. Sternotomy. LINES/TUBES/OTHER: N/A IMPRESSION: Similar prominence of the central pulmonary vascular likely reflecting vascular congestion. This is s imilar to earlier in the day.
[2024-03-19] MEDS: DILTIAZEM INJ 125 MG/25 ML 125 MG in NA CHLORIDE 0.9% 100 ML IV SCH (16:21)
[2024-03-19] MEDS: APIXABAN 2.5 MG TABLET ONE (20:02)
[2024-03-19] MEDS: DILTIAZEM HCL 60 MG TAB ONE (20:07)
[2024-03-19] MEDS: DILTIAZEM HCL 60 MG TAB PO SCH (20:20)
[2024-03-19] MEDS: APIXABAN 2.5 MG TABLET PO SCH (20:21)
[2024-03-20 06:08] LABS: Anion Gap 13.3 mEq/L (5.0-15.0); Magnesium 2.1 mg/dL (1.6-2.4); Potassium 5.3 mEq/L (3.5-5.1)
[2024-03-20 06:27] LABS: Absolute Basophils 0.1 K/uL (0-0.5); Absolute Eosinophils 0.4 K/uL (0-0.5); Absolute Lymphocytes (CBC) 1.8 K/uL (0.7-4.9); Absolute Monocytes 0.9 K/uL (0.1-1.3); Absolute Neutrophil 7.2 K/uL (1.8-8.0); Basophils % 1.1 % (0-1.3); Hematocrit 27.2 % (39.6-49.0); Hemoglobin 8.9 g/dL (13.6-17.9); Lymphocytes % 17.4 % (15.3-44.8); MCH 30.4 pg (27.0-35.0); MCHC 32.5 g/dL (32.0-36.0); MCV 93.3 fL (80-100); MPV 8.3 fL (7.6-11.3); Neutrophils % 68.5 % (41.7-73.7); Platelets 221 thou/uL (152-406); RBC Red Blood Cell Count 2.92 M/uL (4.33-5.43); Red Cell Distribution Width 16.4 % (12.1-15.2)
[2024-03-20] MEDS ORDERED: DILTIAZEM HCL 120 MG SR CAP PO SCH (09:50)
[2024-03-20] MEDS: METOPROLOL TAR 50 MG TAB PO SCH (10:08)
--- NOTE | 2024-03-20 10:47 | P.PN ---
Renal note (S) Pt remains in the ICU, on heparin and diltiazem drip, remains in Afib but rate controlled, no acute CP or dyspnea (O) Vitals reviewed in the EMR General: Alert, In no apparent distress, Oriented x3 HEENT: Atraumatic, Normocephalic, not needing O2 Neck: Supple Respiratory: Clear to auscultation bilaterally, Normal air movement Cardiovascular: No edema, mild tachy, irregular Gastrointestinal: Soft and benign, Non-distended Musculoskeletal: No swelling, No contractures Integumentary: No rashes, No tenderness/swelling Neurological: Normal speech, Normal tone, Normal affect Laboratory Data (last 24 hrs) Reviewed in the EMR Conclusions/Impression: A/P) 1. ESRD 2nd to DM/HTN -on iHD TTS, HD ordered for today, see orders for details 2. Afib with RVR (unknown duration, more recent onset and post recent CABG), management per Cardiology. Need to clarify home meds including Metoprolol dose 3. Chronic HTN with heart and kidney disease -BP initially lower post surgery but then had trended up mod, currently acceptable this AM but on diltiazem drip, f/u post HD BP 4. Type II DM with other complications -cont strict diabetic control 5. Anemia 2nd to CKD -monitor H/H closely Elliott Bajwa MD, EUGENIE
[2024-03-20 13:51] VITALS: O2SAT 96
--- NOTE | 2024-03-20 14:32 | P.PN ---
Date of Service: 03/20/24 Subjective Awake, sitting in the chair plan for dialysis today Started metoprolol, cardizem gtt off ROS 10 point ROS as noted above, otherwise negative Physical Exam General: Alert and Oriented x3, NAD HEENT: Atraumatic, Normocephalic Neck: Supple, 2+ carotid pulse no bruit Respiratory: Clear to auscultation bilaterally, Normal air movement Cardiovascular: Normal pulses, Afib with HR controlled, Normal S1 S2 Capillary refill: <2 Seconds Gastrointestinal: Normal bowel sounds, Soft and benign on palpation, ND/NT Musculoskeletal: No clubbing Integumentary: No rashes Neurological: Normal speech, Normal tone Vitals Reviewed Problem list Afib with RVR Hx CAD s/p CABG (3 vessels) CHF ESRD (dialysis T Th S) Anemia of chronic disease DM-IDDM Assessment and Plan Afib with RVR Hx CAD s/p CABG (3 vessels) CHF -admit to ICU, on arrival HR 146 -HR better controlled overnight -Troponin 41.6/43.5/49.8/46.3 -BNP 51,434 -Contiunous telemetry -EKG showing Afib -cardizem gtt titrated off -started metoprolol BID -Cardiology managing -Continue home medications ESRD (dialysis T Th S) Hyperphosphatemia/Hyperkalemia Anemia of chronic disease -dialysis today 03/20 -BUN/creatinine 60/9.20, GFR 7, H/H 8.9/27.2 -Dr. Rojas consulted -Dialysis 03/18, Scheduled dialysis for 03/20 -Creatinine clearance 18 DM-IDDM -serum glucose 131 -Accucheck with SSI -A1C in the AM DVT ppx Eliquis Full code LOS 2 days Discharge Plan: Home Plan to discharge in: 48 Hours <Fara Contreras - Last Filed: 03/20/24 14:41> Patient seen and examined. Plan of care discussed with Ms. Contreras. Noted patient did not take his Coreg before presentation to the ED. Patient on Cardizem drip and also started on metoprolol this morning. Patient converted to sinus rhythm during hemodialysis. Continue metoprolol, Cardizem 30 mg every 8 hours added as patient's BP will tolerate. Cardiology input appreciated. <ana lilia salmeron - Last Filed: 03/20/24 17:03>
[2024-03-20] MEDS: ATORVASTATIN 40 MG TAB PO SCH (20:25)
[2024-03-21 05:03] LABS: Absolute Basophils 0.3 K/uL (0-0.5); Absolute Eosinophils 0.3 K/uL (0-0.5); Absolute Lymphocytes (CBC) 1.7 K/uL (0.7-4.9); Absolute Monocytes 0.7 K/uL (0.1-1.3); Absolute Neutrophil 7.2 K/uL (1.8-8.0); Basophils % 2.6 % (0-1.3); Eosinophils % 3.4 % (0-4.4); Hematocrit 25.8 % (39.6-49.0); Hemoglobin 8.6 g/dL (13.6-17.9); Lymphocytes % 16.6 % (15.3-44.8); MCH 30.9 pg (27.0-35.0); MCHC 33.3 g/dL (32.0-36.0); MCV 92.7 fL (80-100); MPV 7.4 fL (7.6-11.3); Monocytes % 6.9 % (3.3-12.3); Neutrophils % 70.5 % (41.7-73.7); Nucleated Red Blood Cells % 0.1 % (0-0); Platelets 226 thou/uL (152-406); RBC Red Blood Cell Count 2.79 M/uL (4.33-5.43); Red Cell Distribution Width 16.6 % (12.1-15.2)
[2024-03-21 05:23] LABS: Anion Gap 12.8 mEq/L (5.0-15.0); Magnesium 2.2 mg/dL (1.6-2.4); Phosphorus 5.3 mg/dL (2.5-4.9); Potassium 4.8 mEq/L (3.5-5.1)
--- NOTE | 2024-03-21 14:16 | EKG ---
Test Date: 2024-03-19 Test Time: 03:19:38 Director Of Sustainability Programs: AF MEASUREMENT RESULTS: Intervals: Rate: 145 NM: 122 QRSD: 92 QT: 290 QTc: 450 [place]: P: NM: 122 QRS: -59 T: 136 INTERPRETIVE STATEMENTS: Supra-Ventricular tachycardia Left anterior fascicular block ST & T wave abnormality, consider lateral ischemia Abnormal ECG Compared to ECG 02/20/2024 14:52:14 Left anterior fascicular block now present ST (T wave) deviation now present Sinus rhythm no longer present Left-axis deviation no longer present Left ventricular hypertrophy no longer present T-wave abnormality no longer present Prolonged QT interval no longer present Possible ischemia still present Electronically Signed On 03-21-24 14:13:58 [employer] by Mason Jasso
--- NOTE | 2024-03-21 14:47 | P.DS ---
Admission Date: 03/19/24 Discharge Date: 03/21/24 Disposition: ROUTINE DISCHARGE Discharge Condition: GOOD Reason for Admission: Afib with RVR Brief History of Present Illness: Diagnosis Afib with RVR Hx CAD s/p CABG (3 vessels) CHF ESRD (dialysis T Th S) Anemia of chronic disease DM-IDDM HPI 03/19/2024 Chava Pate is a 48 year old male with Pmhx CAD s/p CABG x3 coronary, ESRD on dialysis left arm fistula, CHF, DM-IDDM, who presents to the ED with chief complaint of rapid heart rate that started yesterday. He reports being at dialysis yesterday (03/18) when his heart rate increased requiring dialysis to end early. He is not sure what his heart rate was at that time. He felt unwell this morning at 1 AM and checked his BP and HR without significant increase. On arrival to the ED, his heart rate was at 146 with minimal response to metoprolol IV, a cardizem gtt was started. EKG showing Afib, Troponin 41.6/43.5, serum glucose 225, BNP 51,434, BUN/creatinine 46/7.51, GFR 8, alk phos 162. Initial vitals BP 148 / 96; Pulse 145; Resp 17; Temp 97.8; Pulse Ox 97% on R/A; Chest xray reports "Low lung volumes bilaterally. Allowing for this and patient positioning, no acute chest findings" Chava will be admitted to ICU to hospitalist service for further treatment of Afib with RVR, cardiology consulted. Hospital Course: Chava Pate is a pleasant 48 year old male with a past medical history significant for CAD s/p CABG x3 coronary, ESRD on dialysis left arm fistula, CHF, DM-IDDM who was admitted to the [facility] on 03/19/24 for Afib with RVR. Chava presented to the emergency room due to increased heart rate seen when he was at dialysis. He reports being asymptomatic, denies chest pain, shortness of breath, dizziness. Reports taking metoprolol but has not taken it in no while. His heart rate was recorded at 146. Cardizem drip started and he responded well. Admitted to ICU with continued Cardizem drip and transition to metoprolol. He has remained hemodynamically stable. Continuous telemetry showing normal sinus rhythm. Cardiology was consulted and has cleared him for discharge with follow-up appointment in 1 week. Plan to continue with metoprolol, Eliquis, Lipitor outpatient. He has tolerated dialysis x 1, plan to follow-up with nephrology and continue with outpatient dialysis chair days of Friday. On 03/21/24, Chava was seen on morning rounds and deemed medically stable for discharge. Chava was discharged with instructions to schedule follow-up appointments with PCP, Dr. Lewis, Dr. Rojas. Chava was provided prescriptions for Lipitor, metoprolol, Eliquis. Physical Exam General: AAO x3, NAD HEENT: Atraumatic, Normocephalic Neck: Supple, 2+ carotid pulse no bruit Respiratory: Clear to auscultation bilaterally, symmetrical chest wall movement, on RA Cardiovascular: Normal pulses, RRR, Normal S1 S2 Capillary refill: <2 Seconds Gastrointestinal: Normal bowel sounds, Soft on palpation, ND/NT Musculoskeletal: No clubbing Integumentary: No rashes Neurological: Normal speech, Normal tone Vital Signs/Physical Exam: Temp Pulse Resp BP Pulse Ox 98.4 F 82 18 162/86 H 94 03/21/24 12:00 03/21/24 12:00 03/21/24 12:00 03/21/24 12:00 03/21/24 12:00 Laboratory Data at Discharge: WBC 10.20 thou/uL (4.3-10.9) 03/21/24 04:45 Hgb 8.6 g/dL (13.6-17.9) L 03/21/24 04:45 Hct 25.8 % (39.6-49.0) L 03/21/24 04:45 Plt Count 226 thou/uL (152-406) 03/21/24 04:45 PT 14.1 SECONDS (9.4-12.5) H 03/19/24 03:53 INR 1.27 03/19/24 03:53 APTT 24.6 SECONDS (24.3-36.9) 03/19/24 22:24 Sodium 134 mEq/L (136-145) L 03/21/24 04:45 Potassium 4.8 mEq/L (3.5-5.1) 03/21/24 04:45 BUN 47 mg/dL (7-18) H 03/21/24 04:45 Creatinine 8.22 mg/dL (0.70-1.30) H 03/21/24 04:45 Glucose 137 mg/dL (74-106) H 03/21/24 04:45 Phosphorus 5.3 mg/dL (2.5-4.9) H 03/21/24 04:45 Magnesium 2.2 mg/dL (1.6-2.4) 03/21/24 04:45 Total Bilirubin 0.4 mg/dL (0.2-1.0) 03/19/24 03:53 AST 21 U/L (15-37) 03/19/24 03:53 ALT 46 U/L (16-61) 03/19/24 03:53 Alkaline Phosphatase 162 U/L (45-117) H 03/19/24 03:53 Home Medications: Aspirin 81 mg PO DAILY 03/19/24 Furosemide [Lasix*] 40 mg PO BID 03/19/24 Insulin Glargine,Hum.rec.anlog [Toujeo Max Solostar] 15 units SQ DAILY 03/19/24 Losartan Potassium [Cozaar] 50 mg PO DAILY 03/19/24 Sevelamer Carbonate [Renvela*] 800 mg PO TIDWM 03/19/24 Fluconazole 150 mg PO DAILY 03/20/24 Gabapentin [Neurontin*] 100 mg PO BID 03/20/24 Apixaban [Eliquis *] 2.5 mg PO BID 30 Days #60 tab 03/21/24 Atorvastatin Calcium [Lipitor] 40 mg PO BEDTIME tab 03/21/24 Metoprolol Tartrate [Lopressor*] 50 mg PO BID 30 Days #60 tab 03/21/24 New Medications: Apixaban [Eliquis *] 2.5 mg PO BID 30 Days #60 tab Metoprolol Tartrate [Lopressor*] 50 mg PO BID 30 Days #60 tab Physician Discharge Instructions: 1. Please call and schedule a follow-up appointment with your PCP in 3-5 days - Please follow-up with your PCP for medication refills/adjustments 2. Please call and schedule a follow-up appointment with Dr. Lewis in one week 3. Continue heart healthy diet 4. No activity restrictions 5. Return to the ED if symptoms worsen New medications Lipitor 40 mg daily Metoprolol 50 mg twice daily Eliquis 2.5 mg twice daily Diet: AHA Activity: Ad minh Followup: Maximiliano Lewis MD [ACTIVE - CAN ADMIT] - Tammy Paul [Primary Care Provider] - Zeeshan Rojas DO [ACTIVE - CAN ADMIT] -
--- NOTE | 2024-03-21 15:14 | PN ---
Date of Progress Note: 03/21/2024 Subjective: Seen by bedside. He converted to sinus rhythm, off the Cardizem drip. Review of Systems: No chest pain, shortness of breath, orthopnea, cough. No nausea, vomiting, diarrhea. All other syst ems reviewed and are negative. Physical Examination: Vital Signs: Reviewed. Head and Neck: Pupils are equal, round, reactive to light. Intact eye movements. No JVD. No cervi valentina adenopathy. Neck supple. Thyroid is not enlarged. Lungs: Clear to auscultation bilaterally. No crackles. No accessory muscle use. Heart: Regular rate and rhythm. No extra sounds. Abdomen: Soft and nontender. Bowel sounds positive. No organomegaly. No masses or hernia. No rig idity or rebound. Extremities: No clubbing, cyanosis. Intact pulses. Skin: No rashes. Neuro: Alert , awake, oriented x3. No acute focal deficits appreciated. Investigations: BUN is 47, creatinine is 8.22. Assessment/recommendation: 1.Atrial fibrillation, converted to sinus rhythm. Continue metoprolol 50 mg twice a day, Eliquis 2. 5 mg twice a day. From Cardiology standpoint, he can be released. Follow up with me in the office. Follow up with Dr. Lewis in the office in 1 week. 2.Coronary artery disease. No chest pain. Continue current medication. 3.Hypertension. Blood pressure is acceptable. 4.Dyslipidemia. Continue atorvastatin. From Cardiology standpoint, patient can be released. Ayana fairchild as an outpatient. /MORENO Voice ID: [id number] Report ID: [id number]
[2024-03-21 16:33] VITALS: BP 178/80; TEMP 98.5
--- NOTE | 2024-03-22 10:21 | EKG ---
Test Date: 2024-03-19 Test Time: 05:59:39 Associate Store Director: AF MEASUREMENT RESULTS: Intervals: Rate: 119 MT: QRSD: 92 QT: 370 QTc: 520 [place]: P: MT: QRS: -51 T: 128 INTERPRETIVE STATEMENTS: Atrial fibrillation with rapid ventricular response Left anterior fascicular block T wave abnormality, consider lateral ischemia Prolonged QT Abnormal ECG Compared to ECG 03/19/2024 03:19:38 T-wave abnormality now present Prolonged QT interval now present Ventricular tachycardia no longer present ST (T wave) deviation no longer present Possible ischemia still present Electronically Signed On 03-22-24 10:20:13 [employer]ACHINE [employer]BL[employer] by Maximiliano Lewis
== END 2024-03-21 17:00 | disposition home or self-care (01) | DRG 308 ==
LOC: ER 03:02 → ERHOLD 08:25 → 3RD-ICU 10:36 → 2ND 03-21 07:49
PROVIDERS: ADMIT Internal Medicine; ATTEND Internal Medicine
PROC: 5A1D70Z Performance of Urinary Filtration, Intermittent, Less than 6 Hours Per Day (ICD-10-PCS; principal; 2024-03-20)
DX: I48.91 Unspecified atrial fibrillation (principal); N18.6 End stage renal disease; I13.2 Hypertensive heart and chronic kidney disease with heart failure and with stage 5 chronic kidney disease, or end stage renal disease; E87.1 Hypo-osmolality and hyponatremia; I50.9 Heart failure, unspecified; E11.22 Type 2 diabetes mellitus with diabetic chronic kidney disease; E11.42 Type 2 diabetes mellitus with diabetic polyneuropathy; D63.1 Anemia in chronic kidney disease; I25.10 Atherosclerotic heart disease of native coronary artery without angina pectoris; Z23 Encounter for immunization; Z60.2 Problems related to living alone; Z99.2 Dependence on renal dialysis; Z79.4 Long term (current) use of insulin; Z95.1 Presence of aortocoronary bypass graft; Z79.82 Long term (current) use of aspirin; Z79.01 Long term (current) use of anticoagulants; Z79.02 Long term (current) use of antithrombotics/antiplatelets; Z79.899 Other long term (current) drug therapy; Z91.158 Patient's noncompliance with renal dialysis for other reason
CPT/HCPCS: 36415; 71045; 80048; 80076; 80307; 81001; 82947; 83735; 83880; 84100; 84484; 85025; 85610; 85730; 90471; 90732; 90935; 93005; 96365; 96366; 96375; 99285; J7030; J7040; P9047

== ENCOUNTER 2024-03-27 05:49 | Inpatient (IN) | payer BC, OTHER ==
[2024-03-27 06:32] LABS: Absolute Basophils 0.1 K/uL (0-0.5); Absolute Eosinophils 0.4 K/uL (0-0.5); Absolute Lymphocytes (CBC) 1.4 K/uL (0.7-4.9); Absolute Monocytes 0.7 K/uL (0.1-1.3); Absolute Neutrophil 5.4 K/uL (1.8-8.0); Basophils % 1.5 % (0-1.3); Eosinophils % 4.7 % (0-4.4); Hematocrit 25.2 % (39.6-49.0); Hemoglobin 8.4 g/dL (13.6-17.9); Lymphocytes % 17.4 % (15.3-44.8); MCH 30.9 pg (27.0-35.0); MCHC 33.2 g/dL (32.0-36.0); MCV 92.9 fL (80-100); MPV 7.2 fL (7.6-11.3); Monocytes % 8.6 % (3.3-12.3); Neutrophils % 67.8 % (41.7-73.7); Platelets 183 thou/uL (152-406); RBC Red Blood Cell Count 2.71 M/uL (4.33-5.43); Red Cell Distribution Width 17.5 % (12.1-15.2)
[2024-03-27 06:41] LABS: PT Prothrombin Time 14.8 SECONDS (9.4-12.5); Protime INR 1.33
[2024-03-27] MEDS ORDERED: NA CHLORIDE 0.9% 500 ML ONE (06:49)
--- NOTE | 2024-03-27 06:56 | RAD REPORT ---
EXAMINATION: CT HEAD WITHOUT CONTRAST CLINICAL INDICATION: Male, 49 years old.CONFUSED TECHNIQUE: Axial CT images from the skull base to the vertex without intravenous contrast. Coronal an d sagittal reformatted images were created from the data set. One or more of the following dose reduction techniques were used: Automated exposure control, adjustment of the mA and/or kV according to patient size, and/or iterative reconstruction. Unless otherwise specified, incidental findings do not require dedicated imaging follow-up. [id number]. COMPARISON: 03/01/2022 FINDINGS: INTRACRANIAL: No acute intracranial hemorrhage. No hydrocephalus. No mass effect or midline shift. No significant white matter disease. VASCULATURE: No visualized abnormalities in the arteries or dural venous sinuses. SCALP/SKULL: No significant soft tissue or osseous abnormalities. SINUSES: Mild ethmoid air cell thickening. Trace left maxillary sinus thickening. IMPRESSION: No acute intracranial abnormality.
--- NOTE | 2024-03-27 06:57 | RAD REPORT ---
EXAMINATION: CT CERVICAL SPINE WITHOUT CONTRAST CLINICAL INDICATION: Male, 49 years old. fall at home TECHNIQUE: Axial CT images through the cervical spine were obtained without intravenous contrast. Sag ittal and coronal reformatted images were created from the data set. One or more of the following dose reduction techniques were used: Automated exposure control, adjustment of the mA and/or kV accor ding to patient size, and/or iterative reconstruction. Unless otherwise specified, incidental findings do not require dedicated imaging follow-up. [id number]. COMPARISON: No prior exam. FINDINGS: ALIGNMENT: The cervical spine has normal alignment without scoliosis or spondylolisthesis. BONE: Vertebral body heights are maintained. No aggressive osseous lesions. DISCS: Disc heights are maintained. LEVELS: No significant spinal canal or neural foraminal stenosis. No visualized abnormality within th e spinal canal. SOFT TISSUE: Partially imaged is a sternotomy. IMPRESSION: No acute cervical spine abnormalities.
--- NOTE | 2024-03-27 07:08 | RAD REPORT ---
EXAM: CT CHEST, ABDOMEN AND PELVIS WITHOUT CONTRAST CLINICAL INDICATION: Male, 49 years old fall at home TECHNIQUE: CT chest, abdomen and pelvis was performed, without IV contrast, as per department protoco l. Axial, sagittal and coronal reconstructions were obtained. One or more of the following dose reduction techniques were used: Automated exposure control, adjustment of the mA and/or kV according to the patient size, and/or iterative reconstruction. Unless otherwise specified, incidental findings do not require dedicated imaging follow-up. [id number]. COMPARISON: CT abdomen/pelvis 12/29/2023 FINDINGS: The lack of intravenous contrast limits the sensitivity of this exam for evaluation of solid visceral organs, vascular structures, and retroperitoneum. Chest: LOWER NECK/CHEST WALL: Visualized thyroid gland and soft tissues are normal. LUNGS AND AIRWAYS: Atelectasis in the lung bases as a result of the pleural effusions.. PLEURA: Small bilateral pleural effusions. MEDIASTINUM AND LYMPH NODES: Retrosternal stranding likely reflecting recent postoperative changes. THORACIC AORTA: Normal caliber and configuration. PULMONARY ARTERIES: Normal caliber. HEART: Cardiomegaly. Coronary artery calcifications. Abdomen/Pelvis LIVER: Nodular liver contour. GALLBLADDER/BILE DUCTS: No biliary ductal dilatation. PANCREAS: No mass, ductal dilation, or consuelo-pancreatic fluid. SPLEEN: Splenomegaly. ADRENALS: Normal; no mass. KIDNEYS AND URETERS: Normal size and contour. No hydronephrosis. GASTROINTESTINAL TRACT: Stomach is non-dilated. Small bowel has normal course and caliber. No colonic wall thickening or pericolonic inflammatory changes. Normal appendix. PERITONEUM: Mild ascites. LYMPH NODES: No lymphadenopathy. ABDOMINAL AORTA AND OTHER VESSELS: Mild atherosclerosis of the abdominal aorta. URINARY BLADDER: Normal contour. REPRODUCTIVE ORGANS: No pathologic process. MUSCULOSKELETAL: Recent sternotomy with up to 6 mm of sternal dehiscence. Several of the sternal wire s are fractured. Remote left first rib fracture. ADDITIONAL FINDINGS: None IMPRESSION: 1. Surgical changes from recent sternotomy. Up to 6 mm of sternal dehiscence present with fracture of some of the sternotomy wires. 2. Small pleural effusions could be secondary to volume overload/pulmonary edema.
[2024-03-27 07:09] LABS: Albumin 3.1 g/dL (3.4-5.0); Albumin/Globulin Ratio 0.9 (1.1-1.8); Anion Gap 14.6 mEq/L (5.0-15.0); Bilirubin Direct 0.2 mg/dL (0-0.2); Bilirubin Indirect, Calculated 0.3 mg/dL (0.2-0.8); Bilirubin Total 0.5 mg/dL (0.2-1.0); Globulin 3.4 g/dL (2.3-3.5); Magnesium 2.1 mg/dL (1.6-2.4); Potassium 4.6 mEq/L (3.5-5.1); Protein, Total 6.5 g/dL (6.4-8.2); Troponin High Sensitivity 45.2 pg/mL (<58.9)
--- NOTE | 2024-03-27 07:31 | RAD REPORT ---
EXAM: Chest Single View HISTORY: CHEST PAIN COMPARISON: 03/19/2024 FINDINGS: LUNGS/PLEURA: Diffuse prominence of the pulmonary interstitium. MEDIASTINUM: The mediastinal silhouette is within normal limits. CARDIAC: Cardiomegaly. UPPER ABDOMEN: No significant abnormality. BONES: No acute fracture. LINES/TUBES/OTHER: Fractured lower sternotomy wires. IMPRESSION: Pulmonary vascular congestion versus mild edema.
--- NOTE | 2024-03-27 08:02 | EDPHYS ---
Physician Documentation [facility] Name: Chava Pate Age: 49 yrs Sex: Male : 1975 Arrival Date: 03/27/2024 Time: 05:49 Bed 4 Private MD: ED Physician Bk Hassan HPI: 03/27 05:58 This 49 yrs old Male presents to ER via Unassigned with complaints of Syncope. sp4 07:41 49-year-old male brought by EMS for apparent syncope and fall in the kitchen. Patient sp4 has history of end-stage renal disease history of dialysis. Apparently patient fell in the kitchen and is house and was administered CPR by his father prior to arrival. Past medical history is extensive and includes A-fib with RVR recent admission with discharge on 03/21/2024. Additional history includes coronary artery disease with history of CABG, CHF, end-stage renal disease, anemia of chronic disease, insulin-dependent diabetes. Medications include aspirin 81 mg p.o. twice daily, Lasix 40 mg p.o. twice daily, insulin Toujeo 15 units daily, losartan potassium 50 mg p.o. daily, sevelamer 800 mg 3 times daily, fluconazole 150 mg p.o. daily, gabapentin 100 mg p.o. twice daily, apixaban 2.5 mg p.o. daily lastly atorvastatin 40 mg p.o. bedtime metoprolol Lopressor 50 mg p.o. twice daily.. Historical: - Allergies: 05:51 No Known Allergies; al5 - Home Meds: 05:51 Ambien Oral [Active]; carvedilol oral [Active]; gabapentin oral [Active]; Lasix Oral al5 [Active]; losartan oral [Active]; - PMHx: 05:51 Congestive heart failure; ESRD; Hypertension; IDDM; Kidney failure- dialysis (Left arm al5 fistula); neuropathy; - PSHx: 05:51 Left arm fistula; triple heart bypass; al5 - Immunization history:: Adult Immunizations up to date. - Infectious Disease History:: Denies. - Social history:: Smoking status: Patient denies any tobacco usage or history of. - Family history:: not pertinent. ROS: 07:41 Constitutional: Positive for syncope and collapse sp4 07:41 All other systems are negative, Exam: 07:41 Constitutional: This is a well developed, well nourished patient who is awake, alert, sp4 and in no acute distress. Patient is ill-appearing but nontoxic Head/Face: Normocephalic, atraumatic. Eyes: Pupils equal round and reactive to light, extra-ocular motions intact. Lids and lashes normal. Conjunctiva and sclera are not injected. Cornea within normal limits. Periorbital areas with no swelling, redness, or edema. ENT: Nares patent. No nasal discharge, no septal abnormalities noted. Tympanic membranes are normal and external auditory canals are clear. Oropharynx with no redness, swelling, or masses, exudates, or evidence of obstruction, uvula midline. Mucous membranes moist. Neck: Trachea midline, no thyromegaly or masses palpated, and no cervical lymphadenopathy. Supple, full range of motion without nuchal rigidity, or vertebral point tenderness. Chest/axilla: Normal chest wall appearance and motion. Nontender with no deformity. No lesions are appreciated. Cardiovascular: Regular rate and rhythm with a normal S1 and S2. No gallops, murmurs, or rubs. Normal PMI, no JVD. No pulse deficits. Respiratory: Lungs have equal breath sounds bilaterally, clear to auscultation and percussion. No rales, rhonchi or wheezes noted. No increased work of breathing, no retractions or nasal flaring. Abdomen/GI: Soft, with normal bowel sounds. No distension or tympany. No guarding or rebound. No evidence of tenderness throughout. Back: No spinal tenderness. No costovertebral tenderness. Skin: Warm, dry with normal turgor. Normal color with no rashes, no lesions, and no evidence of cellulitis. MS/ Extremity: Pulses equal, no cyanosis. Neurovascular intact. Full, normal range of motion. Neuro: Awake and alert, GCS 15, oriented to person, place, time, and situation. Cranial nerves II-XII grossly intact. Motor strength 5/5 in all extremities. Sensory grossly intact. Psych: Awake, alert, with orientation to person, place and time. Behavior, mood, and affect are within normal limits 07:41 ECG was reviewed by the Attending Physician. EKG at 0 515 normal sinus rhythm rate 72, prolonged QT. Vital Signs: 05:51 BP 170 / 83; Pulse 72; Resp 18; Temp 98.8; Pulse Ox 97% on R/A; Weight 102.06 kg; al5 Height 5 ft. 8 in. ; 07:00 BP 164 / 76; Pulse 66; Resp 19 S; Pulse Ox 99% on R/A; aa5 08:00 BP 149 / 87; Pulse 65; Resp 16 S; Pulse Ox 99% on R/A; aa5 09:00 BP 153 / 79; Pulse 65; Resp 18 S; Temp 97.5(TE); Pulse Ox 99% on R/A; aa5 05:51 Body Mass Index 34.21 (102.06 kg, 172.72 cm) al5 NIH Stroke Scale Scores: 05:51 NIHSS Score: 0 al5 MDM: 06:02 Medical Screening Exam initiated sp4 07:49 Differential Diagnosis: cardiac arrhythmia, cerebrovascular accident, drug effect, sp4 emotional response, GI bleed, idiopathic syncope, pseudo seizure, seizure, sepsis. Data reviewed: vital signs, nurses notes, EMS record, old medical records, lab test result(s), EKG, radiologic studies. Consideration of Admission/Observation Escalation of care including admission/observation considered. ED course: EXAMINATION: CT HEAD WITHOUT CONTRAST CLINICAL INDICATION: Male, 49 years old.CONFUSED TECHNIQUE: Axial CT images from the skull base to the vertex without intravenous contrast. Coronal and sagittal reformatted images were created from the data set. One or more of the following dose reduction techniques were used: Automated exposure control, adjustment of the mA and/or kV according to patient size, and/or iterative reconstruction. Unless otherwise specified, incidental findings do not require dedicated imaging follow-up. [id number]. COMPARISON: 03/01/2022 FINDINGS: INTRACRANIAL: No acute intracranial hemorrhage. No hydrocephalus. No mass effect or midline shift. No significant white matter disease. VASCULATURE: No visualized abnormalities in the arteries or dural venous sinuses. SCALP/SKULL: No significant soft tissue or osseous abnormalities. SINUSES: Mild ethmoid air cell thickening. Trace left maxillary sinus thickening. IMPRESSION: No acute intracranial abnormality. . ED course: EXAM: Chest Single View HISTORY: CHEST PAIN COMPARISON: 03/19/2024 FINDINGS: LUNGS/PLEURA: Diffuse prominence of the pulmonary interstitium. MEDIASTINUM: The mediastinal silhouette is within normal limits. CARDIAC: Cardiomegaly. UPPER ABDOMEN: No significant abnormality. BONES: No acute fracture. LINES/TUBES/OTHER: Fractured lower sternotomy wires. IMPRESSION: Pulmonary vascular congestion versus mild edema. . ED course: EXAMINATION: CT CERVICAL SPINE WITHOUT CONTRAST CLINICAL INDICATION: Male, 49 years old. fall at home TECHNIQUE: Axial CT images through the cervical spine were obtained without intravenous contrast. Sagittal and coronal reformatted images were created from the data set. One or more of the following dose reduction techniques were used: Automated exposure control, adjustment of the mA and/or kV according to patient size, and/or iterative reconstruction. Unless otherwise specified, incidental findings do not require dedicated imaging follow-up. [id number]. COMPARISON: No prior exam. FINDINGS: ALIGNMENT: The cervical spine has normal alignment without scoliosis or spondylolisthesis. BONE: Vertebral body heights are maintained. No aggressive osseous lesions. DISCS: Disc heights are maintained. LEVELS: No significant spinal canal or neural foraminal stenosis. No visualized abnormality within the spinal canal. SOFT TISSUE: Partially imaged is a sternotomy. IMPRESSION: No acute cervical spine abnormalities.. ED course: EXAM: CT CHEST, ABDOMEN AND PELVIS WITHOUT CONTRAST CLINICAL INDICATION: Male, 49 years old fall at home TECHNIQUE: CT chest, abdomen and pelvis was performed, without IV contrast, as per department protocol. Axial, sagittal and coronal reconstructions were obtained. One or more of the following dose reduction techniques were used: Automated exposure control, adjustment of the mA and/or kV according to the patient size, and/or iterative reconstruction. Unless otherwise specified, incidental findings do not require dedicated imaging follow-up. [id number]. COMPARISON: CT abdomen/pelvis 12/29/2023 FINDINGS: The lack of intravenous contrast limits the sensitivity of this exam for evaluation of solid visceral organs, vascular structures, and retroperitoneum. Chest: LOWER NECK/CHEST WALL: Visualized thyroid gland and soft tissues are normal. LUNGS AND AIRWAYS: Atelectasis in the lung bases as a result of the pleural effusions.. PLEURA: Small bilateral pleural effusions. MEDIASTINUM AND LYMPH NODES: Retrosternal stranding likely reflecting recent postoperative changes. THORACIC AORTA: Normal caliber and configuration. PULMONARYARTERIES: Normal caliber. HEART: Cardiomegaly. Coronary artery calcifications. Abdomen/Pelvis LIVER: Nodular liver contour. GALLBLADDER/BILE DUCTS: No biliary ductal dilatation. PANCREAS: No mass, ductal dilation, or consuelo-pancreatic fluid. SPLEEN: Splenomegaly. ADRENALS: Normal; no mass. KIDNEYS AND URETERS: Normal size and contour. No hydronephrosis. GASTROINTESTINAL TRACT: Stomach is non-dilated. Small bowel has normal course and caliber. No colonic wall thickening or pericolonic inflammatory changes. Normal appendix. PERITONEUM: Mild ascites. LYMPH NODES: No lymphadenopathy. ABDOMINAL AORTA AND OTHER VESSELS: Mild atherosclerosis of the abdominal aorta. URINARYBLADDER: Normal contour. Con REPRODUCTIVE ORGANS: No pathologic process. MUSCULOSKELETAL: Recent sternotomy with up to 6 mm of sternal dehiscence. Several of the sternal wires are fractured. Remote left first rib fracture. ADDITIONAL FINDINGS: None IMPRESSION: 1. Surgical changes from recent sternotomy. Up to 6 mm of sternal dehiscence present with fracture of some of the sternotomy wires. 2. Small pleural effusions could be secondary to volume overload/pulmonary edema.. 08:02 ED course: Stable for admission for observation . sp4 03/27 05:59 Order name: Basic Metabolic Panel; Complete Time: 07:17 sp4 03/27 05:59 Order name: CBC with Diff; Complete Time: 07:17 sp4 03/27 05:59 Order name: LFT's; Complete Time: 07:17 sp4 03/27 05:59 Order name: Magnesium; Complete Time: 07:17 sp4 03/27 05:59 Order name: NT PRO-BNP; Complete Time: 07:17 sp4 03/27 05:59 Order name: PT-INR; Complete Time: 07:17 sp4 03/27 05:59 Order name: Troponin HS; Complete Time: 07:17 sp4 03/27 06:00 Order name: Lactate w/ 2H reflex if indic.; Complete Time: 07:17 sp4 03/27 08:45 Order name: Urinalysis w/ reflexes EDMS 03/27 08:45 Order name: Basic Metabolic Panel EDMS 03/27 08:45 Order name: Basic Metabolic Panel EDMS 03/27 08:45 Order name: CBC with Automated Diff EDMS 03/27 08:45 Order name: CBC with Automated Diff EDMS 03/27 08:45 Order name: Magnesium EDMS 03/27 08:45 Order name: Magnesium EDMS 03/27 08:46 Order name: NT PRO-BNP EDMS 03/27 05:59 Order name: XRAY Chest (1 view) sp4 03/27 05:59 Order name: CT Head Brain wo Cont; Complete Time: 07:17 sp4 03/27 05:59 Order name: CT C Spine; Complete Time: 07:17 sp4 03/27 05:59 Order name: CT Chest Abdomen Pelvis W/O Contrast; Complete Time: 07:17 sp4 03/27 08:45 Order name: CONS Physician Consult EDCO 03/27 08:45 Order name: Physical Therapy Consult EDCO 03/27 05:59 Order name: Cardiac monitoring; Complete Time: 06:32 sp4 03/27 05:59 Order name: EKG - Nurse/Tech; Complete Time: 06:32 sp4 03/27 05:59 Order name: IV Saline Lock; Complete Time: 06:32 sp4 03/27 05:59 Order name: Labs collected and sent; Complete Time: 06:32 sp4 03/27 05:59 Order name: O2 Per Protocol; Complete Time: 06:32 sp4 03/27 05:59 Order name: O2 Sat Monitoring; Complete Time: 06:32 sp4 03/27 06:18 Order name: Misc. Order: recollect; Complete Time: 06:46 kmf EC:41 Rate is 72 beats/min. Rhythm is regular, Normal Sinus Rhythm. QRS [place] is Normal. MI sp4 interval is normal. QRS interval is normal. QT interval is prolonged. No Q waves. T waves are Normal. No ST changes noted. Clinical impression: No evidence of ischemia. Interpreted by me. Reviewed by me. Administered Medications: 06:54 Drug: NS 0.9% IV 500 ml 500 ml IV at 1 bolus once; to be given as a bolus over 30 al5 minutes Volume: 500 ml; Route: IV; Rate: 1 bolus; Site: right antecubital; Disposition Summary: 03/27/24 08:01 Hospitalization Ordered Notes: Hospitalization Status: Observation sp4 Provider: Kedar Cloud sp4 Location: Telemetry/[facility] (observation) sp4 Condition: Stable sp4 Problem: new sp4 Symptoms: have improved sp4 Bed/Room Type: Standard sp4 Room Assignment: 209(03/27/24 08:58) iw Diagnosis - Syncope and Collapse, Generalized weakness , ESRD on hemodialysis sp4 Forms: - Medication Reconciliation Form sp4 - SBAR form sp4 - Leadership Thank You Letter sp4 NIH Stroke Scale - NIH Stroke Score Date: 03/27/2024 Time: 05:51 Total Score = 0 10. Dysarthria (speech clarity - read or repeat words) - 0(Normal) 11. Extinction and Inattention (visual/tactile/auditory/spatial/personal) - 0(No abnormality) 1a. Level of Consciousness (LOC) - 0(Alert) 1b. Level of Consciousness (LOC) (Month \T\ Age) - 0(Both) 1c. LOC Commands (Open \T\ Closes Eyes/Laser/Electro Optics Technician) - 0(Both) 2. Best Gaze (Lateral Gaze Paresis) - 0(Normal) 3. Visual Field Loss - 0(No visual loss) 4. Facial Palsy - 0(Normal) 5a. Left Arm: Motor (10-second hold) - 0(No drift) 5b. Right Arm: Motor (10-second hold) - 0(No drift) 6a. Left Leg: Motor (5-second hold - always test supine) - 0(No drift) 6b. Right Leg: Motor (5-second hold - always test supine) - 0(No drift) 7. Limb Ataxia (finger/nose \T\ heel/medeiros - test with eyes open) - 0(Absent) 8. Sensory Loss (pinprick arms/legs/face) - 0(Normal) 9. Best Language: Aphasia (description/naming/reading) - 0(No aphasia) Initials: al5 Signatures: Dispatcher [employer] EDLatasha Madrid RN RN iw Potepalov, Sergey, MD MD [facility] Shonna Rodas [facility] Radha Perales RN RN al5 Corrections: (The following items were deleted from the chart) 05:59 05:59 BASIC METABOLIC PANEL+C.LAB.BRZ ordered. EDMS EDMS 05:59 05:59 CBC+H.LAB.BRZ ordered. EDMS EDMS 05:59 05:59 HEPATIC FUNCTION+C.LAB.BRZ ordered. EDMS EDMS 05:59 05:59 MAGNESIUM+C.LAB.BRZ ordered. EDMS EDMS 05:59 05:59 PROBNP+C.LAB.BRZ ordered. EDMS EDMS 05:59 05:59 PROTIME (+INR)+COAG.LAB.BRZ ordered. EDMS EDMS 05:59 05:59 Troponin High Sensitivity+C.LAB.BRZ ordered. EDMS EDMS 05:59 05:59 Chest Single View+RAD.RAD.BRZ ordered. EDMS EDMS 05:59 05:59 Head Brain Wo Cont+CT.RAD.BRZ ordered. EDMS EDMS 06:00 06:00 C Spine Wo Con+CT.RAD.BRZ ordered. EDMS EDMS 08:58 08:01 sp4 iw
--- NOTE | 2024-03-27 08:02 | ER ---
Nurse's Notes [facility] Name: Chava Pate Age: 49 yrs Sex: Male : 1975 Arrival Date: 03/27/2024 Time: 05:49 Bed 4 Private MD: Diagnosis: Syncope and Collapse, Generalized weakness , ESRD on hemodialysis Presentation: 03/27 05:51 Chief complaint: EMS states: patient had fallen in the kitchen and was unresponsive. al5 father found him and started to perform cpr for about 30 minutes prior to EMS arrival. patient was alert and oriented on scene, but did not remember what happened. patient stated to this nurse that he remembers being dizzy before having his fall. only complaint at this time is nausea. denies any pain or shortness of breath. Coronavirus screen: At this time, the client does not indicate any symptoms associated with coronavirus-19. Ebola Screen: No symptoms or risks identified at this time. Initial Sepsis Screen: Does the patient meet any 2 criteria? No. Patient's initial sepsis screen is negative. Does the patient have a suspected source of infection? No. Patient's initial sepsis screen is negative. Risk Assessment: Do you want to hurt yourself or someone else? Patient reports no desire to harm self or others. Onset of symptoms was March 27, 2024. 05:51 Method Of Arrival: EMS: [facility] al5 05:51 Acuity: EDINSON 2 al5 Triage Assessment: 05:51 General: Appears in no apparent distress. comfortable, Behavior is calm, cooperative. al5 Pain: Denies pain. EENT: No signs and/or symptoms were reported regarding the EENT system. Neuro: Level of Consciousness is awake, alert, obeys commands, Oriented to person, place, time, situation, Moves all extremities. Full function Speech is normal, Facial symmetry appears normal, Pupils are PERRLA, Reports dizziness, prior to syncopal episode. Cardiovascular: Capillary refill < 3 seconds Patient's skin is warm and dry. Respiratory: Airway is patent Respiratory effort is even, unlabored, Respiratory pattern is regular, symmetrical. GI: No signs and/or symptoms were reported involving the gastrointestinal system. : No signs and/or symptoms were reported regarding the genitourinary system. Derm: Skin is intact, is healthy with good turgor, Skin is pink, warm \T\ dry. normal. Musculoskeletal: No signs and/or symptoms reported regarding the musculoskeletal system. Historical: - Allergies: 05:51 No Known Allergies; al5 - Home Meds: 05:51 Ambien Oral [Active]; carvedilol oral [Active]; gabapentin oral [Active]; Lasix Oral al5 [Active]; losartan oral [Active]; - PMHx: 05:51 Congestive heart failure; ESRD; Hypertension; IDDM; Kidney failure- dialysis (Left arm al5 fistula); neuropathy; - PSHx: 05:51 Left arm fistula; triple heart bypass; al5 - Immunization history:: Adult Immunizations up to date. - Infectious Disease History:: Denies. - Social history:: Smoking status: Patient denies any tobacco usage or history of. - Family history:: not pertinent. Screenin:35 [facility] ED Fall Risk Assessment (Adult) History of falling in the last 3 months, al5 including since admission Yes- physiologic fall (2 pts) Confusion or Disorientation No (0 pts) Intoxicated or Sedated No (0 pts) Impaired Gait No (0 pts) Mobility Assist Device Used No (0 pt) Altered Elimination No (0 pt) Score/Fall Risk Level 0 - 2 = Low Risk Oriented to surroundings, Maintained a safe environment, Hourly rounding (assess needs \T\ fall precautionary measures) done. Abuse screen: Denies threats or abuse. Denies injuries from another. Nutritional screening: No deficits noted. Tuberculosis screening: No symptoms or risk factors identified. Assessment: 06:35 Reassessment: see triage assessment. Cardiovascular: Rhythm is sinus rhythm. al5 07:05 Reassessment: Pt sleeping, equal and unlabored respirations. . Cardiovascular: Rhythm aa5 is sinus rhythm. 08:00 Reassessment: Patient is alert, oriented x 3, equal unlabored respirations, skin aa5 warm/dry/pink. Pt sleeping, equal and unlabored respirations. . 09:00 Reassessment: Patient is alert, oriented x 3, equal unlabored respirations, skin aa5 warm/dry/pink. Pt sitting up in bed eating breakfast. . 09:24 Reassessment: Report faxed to admitting nurse, pt ate 100%breakfast and tolerated well. aa5 . Vital Signs: 05:51 BP 170 / 83; Pulse 72; Resp 18; Temp 98.8; Pulse Ox 97% on R/A; Weight 102.06 kg; al5 Height 5 ft. 8 in. ; 07:00 BP 164 / 76; Pulse 66; Resp 19 S; Pulse Ox 99% on R/A; aa5 08:00 BP 149 / 87; Pulse 65; Resp 16 S; Pulse Ox 99% on R/A; aa5 09:00 BP 153 / 79; Pulse 65; Resp 18 S; Temp 97.5(TE); Pulse Ox 99% on R/A; aa5 05:51 Body Mass Index 34.21 (102.06 kg, 172.72 cm) al5 NIH Stroke Scale Scores: 05:51 NIHSS Score: 0 al5 ED Course: 05:51 Patient arrived in ED. bm8 05:51 Bk Hassan MD is Attending Physician. al5 05:51 Radha Perales RN is Primary Nurse. al5 05:51 Arm band placed on right wrist. Patient placed in the treatment room, on a stretcher. al5 06:11 Triage completed. al5 06:36 Patient has correct armband on for positive identification. Placed in gown. Bed in low al5 position. Call light in reach. Side rails up X2. Provided Education on: plan of care. 06:36 No provider procedures requiring assistance completed. Maintain EMS IV. Dressing al5 intact. Good blood return noted. Site clean \T\ dry. Gauge \T\ site: 20G RAC. Flushed with 10 mL NS. 06:47 Bk Hassan MD is Attending Physician. kmf 06:50 CT Head Brain wo Cont In Process Unspecified. EDMS 06:50 CT C Spine In Process Unspecified. EDMS 06:50 CT Chest Abdomen Pelvis W/O Contrast In Process Unspecified. EDMS 07:09 Report given to Norma RN. bm8 07:12 XRAY Chest (1 view) In Process Unspecified. EDMS 07:59 Kedar Cloud is Hospitalizing Provider. sp4 10:00 Patient admitted, IV remains in place. aa5 Administered Medications: 06:54 Drug: NS 0.9% IV 500 ml 500 ml IV at 1 bolus once; to be given as a bolus over 30 al5 minutes Volume: 500 ml; Route: IV; Rate: 1 bolus; Site: right antecubital; Medication: 06:35 VIS not applicable for this client. al5 Outcome: 08:01 Decision to Hospitalize by Provider. sp4 10:00 Admitted to Tele accompanied by tech, via wheelchair, with chart, aa5 10:00 Condition: stable 10:00 Instructed on the need for admit, Demonstrated understanding of instructions, 10:09 Patient left the ED. aa5 NIH Stroke Scale - NIH Stroke Score Date: 03/27/2024 Time: 05:51 Total Score = 0 10. Dysarthria (speech clarity - read or repeat words) - 0(Normal) 11. Extinction and Inattention (visual/tactile/auditory/spatial/personal) - 0(No abnormality) 1a. Level of Consciousness (LOC) - 0(Alert) 1b. Level of Consciousness (LOC) (Month \T\ Age) - 0(Both) 1c. LOC Commands (Open \T\ Closes Eyes/Seat Trimmer) - 0(Both) 2. Best Gaze (Lateral Gaze Paresis) - 0(Normal) 3. Visual Field Loss - 0(No visual loss) 4. Facial Palsy - 0(Normal) 5a. Left Arm: Motor (10-second hold) - 0(No drift) 5b. Right Arm: Motor (10-second hold) - 0(No drift) 6a. Left Leg: Motor (5-second hold - always test supine) - 0(No drift) 6b. Right Leg: Motor (5-second hold - always test supine) - 0(No drift) 7. Limb Ataxia (finger/nose \T\ heel/medeiros - test with eyes open) - 0(Absent) 8. Sensory Loss (pinprick arms/legs/face) - 0(Normal) 9. Best Language: Aphasia (description/naming/reading) - 0(No aphasia) Initials: al5 Signatures: Dispatcher [employer] EDTanya Moreno, RN RN aa5 Bk Hassan MD MD sp4 Shonna Rodas Zac Lanza RN RN bm8 Radha Perales RN RN al5
[2024-03-27] MEDS ORDERED: ONDANSETRON 4 MG/2 ML VIAL IV PRN (08:41)
--- NOTE | 2024-03-27 08:49 | P.HP ---
Certification for Inpatient Patient admitted to: Observation Practitioner: I am a practitioner with admitting privileges, knowledge of patient current condition, hospital course, and medical plan of care. Services: Services provided to patient in accordance with Admission requirements found in Title 42 Section 412.3 of the Code of Federal Regulations Patient History Date of Service: 03/27/24 Reason for admission: Syncopal episode History of Present Illness: 49-year-old male with a past medical history Congestive heart failure; ESRD; Hypertension; IDDM; Kidney failure- dialysis (Left arm fistula); neuropathy; presents to the emergency room via EMS for a syncopal episode. Patient reportedly had a fall/syncopal episode in the kitchen, father started CPR and called EMS. ER evaluation P 170 / 83; Pulse 72; Resp 18; Temp 98.8; Pulse Ox 97% on R/A; patient is awake and alert reports he was supposed to have dialysis today. Reports mild generalized weakness, dizziness, other review of symptoms no reported, fever no reported chest pain, shortness of breath, nausea vomiting diarrhea, EKG 72 beats/min. Rhythm is regular, Normal Sinus Rhythm. QRS [place] is Normal. [place] interval is normal. QRS interval is normal. QT interval is prolonged. No Q waves. T waves are Normal. No ST changes noted. Clinical impression: No evidence of ischemia. NIH stroke scale 0, blood glucose 192, no leukocytosis, microcytic anemia 8.4 25.2, transaminitis, AST 47, ALT 283, elevated BNP 63,819, troponin normal at 45 ,no chest pain, no signs and symptoms of acute fluid overload, CXR IMPRESSION:Pulmonary vascular congestion versus mild edema. CT of the abdomen pelvis 1. Surgical changes from recent sternotomy. Up to 6 mm of sternal dehiscence present with fracture of some of the sternotomy wires.2. Small pleural effusions could be secondary to volume overload/pulmonary edema. C-spine no acute cervical abnormalities, CT of the head no acute abnormalities, plan to admit for syncopal episode, end-stage renal disease on hemodialysis, Allergies No Known Allergies Allergy (Verified 06/19/23 12:41) Home Medications: Aspirin 81 mg PO DAILY 03/19/24 Furosemide [Lasix*] 40 mg PO BID 03/19/24 Insulin Glargine,Hum.rec.anlog [Toumonikao Fred Solostar] 15 units SQ DAILY 03/19/24 Losartan Potassium [Cozaar] 50 mg PO DAILY 03/19/24 Sevelamer Carbonate [Renvela*] 800 mg PO TIDWM 03/19/24 Fluconazole 150 mg PO DAILY 03/20/24 Gabapentin [Neurontin*] 300 mg PO DAILY 03/20/24 Apixaban [Eliquis *] 2.5 mg PO BID 30 Days #60 tab 03/21/24 Atorvastatin Calcium [Lipitor] 40 mg PO BEDTIME tab 03/21/24 Metoprolol Tartrate [Lopressor*] 50 mg PO BID 30 Days #60 tab 03/21/24 - Past Medical/Surgical History Diabetic: Yes -: DM II with Polyneuropathy -: HLD -: HTN -: ESRD/ CKD with Proteinura (Dr. Rojas/ Garett) on HD T, TH, Sat -: Pulmonary HTN -: Left arm Fistula -: 3V CABG 01/12 Psychosocial/ Personal History: Patient lives at home alone. - Family History Father -: Diabetes Mother -: Stroke Notes: DM,HTN, ESRD, CABD with stents - Social History Alcohol use: No CD- Drugs: No Caffeine use: Yes Review of Systems 10-point ROS is otherwise unremarkable General: As per HPI Physical Examination - Physical Exam General: Alert, In no apparent distress, Oriented x3, Other (Generalized weakness) HEENT: Atraumatic, Normocephalic Neck: Supple, JVD not distended Respiratory: Clear to auscultation bilaterally, Normal air movement Cardiovascular: Normal pulses, Regular rate/rhythm, Normal S1 S2, No gallops Gastrointestinal: Normal bowel sounds, Soft and benign Musculoskeletal: No clubbing, No swelling Integumentary: No rashes, No breakdown, Other Neurological: Normal speech, Normal strength at 5/5 x4 extr, Normal tone Lymphatics: No axilla or inguinal lymphadenopathy - Studies Laboratory Data (last 24 hrs) 03/27/24 03/27/24 03/27/24 06:23 06:23 06:11 WBC 8.00 Hgb 8.4 L Hct 25.2 L Plt Count 183 PT 14.8 H INR 1.33 Sodium 136 Potassium 4.6 BUN 60 H Creatinine 8.87 H Glucose 192 H Magnesium 2.1 Total Bilirubin 0.5 AST 47 H ALT 283 H Alkaline Phosphatase 128 H Assessment and Plan - Problems (Diagnosis) (1) Episode of syncope Current Visit: Yes Status: Acute (2) ESRD (end stage renal disease) on dialysis Current Visit: No Status: Acute - Plan Admit to [facility] Nephrology consult for hemodialysis Follow-up with nephrology for outpatient hemodialysis schedule PT to eval for fall, evaluate gait abnormality Trend electrolytes replace as needed Monitor BNP, troponin normal, Accu-Cheks ACHS, sliding scale insulin Full code Renal diet DVT SCDs Disposition Home independent prior Discharge Plan: Home - Advance Directives Does patient have a Living Will: No Does patient have a Durable POA for Healthcare: No - Code Status/Comfort Care Code Status: Full Code Critical Care: No Time Spent Managing Pts Care (In Minutes): 55
[2024-03-27] MEDS: INSULIN REGULAR (HUMAN) 100 UNIT/ML SQ SCH (12:05)
[2024-03-27 13:05] LABS: Specific Gravity 1.011 (1.005-1.030); Sqamous Epithelial <5 /HPF (None Seen); Urine Bacteria None Seen /HPF (<20); Urine Bilirubin NEGATIVE (Negative); Urine Blood Trace (Negative); Urine Clarity Clear (Clear); Urine Color Light-Yellow (Yellow); Urine Culture Reflex Order NOT NEEDED; Urine Glucose 3+ (Negative); Urine Ketones NEGATIVE (Negative); Urine Microscopic Reflex YN ORDER UMIC; Urine Nitrite NEGATIVE (Negative); Urine Protein 3+ (Negative); Urine RBC <5 /HPF (None Seen); Urine Urobilinogen Normal (Normal); Urine WBC <5 /HPF (<5)
[2024-03-27 13:43] VITALS: BMI 34.2
--- NOTE | 2024-03-27 14:35 | P.CNS ---
Chief Complaint: Syncopal episode Allergies No Known Allergies Allergy (Verified 06/19/23 12:41) Home Medications: Aspirin 81 mg PO DAILY 03/19/24 Furosemide [Lasix*] 40 mg PO BID 03/19/24 Insulin Glargine,Hum.rec.anlog [Toujeo Max Solostar] 15 units SQ DAILY 03/19/24 Losartan Potassium [Cozaar] 50 mg PO DAILY 03/19/24 Sevelamer Carbonate [Renvela*] 800 mg PO TIDWM 03/19/24 Fluconazole 150 mg PO DAILY 03/20/24 Gabapentin [Neurontin*] 300 mg PO DAILY 03/20/24 Apixaban [Eliquis *] 2.5 mg PO BID 30 Days #60 tab 03/21/24 Atorvastatin Calcium [Lipitor] 40 mg PO BEDTIME tab 03/21/24 Metoprolol Tartrate [Lopressor*] 50 mg PO BID 30 Days #60 tab 03/21/24 - Past Medical/Surgical History Diabetic: Yes -: DM II with Polyneuropathy -: HLD -: HTN -: ESRD/ CKD with Proteinura (Dr. Rojas/ Garett) on HD T, TH, Sat -: Pulmonary HTN -: Left arm Fistula -: 3V CABG 01/12 Psychosocial/ Personal History: Patient lives at home alone. - Family History Father Medical History: Diabetes Mother Medical History: Stroke Notes: DM,HTN, ESRD, CABD with stents - Social History Smoking Status: Unknown if ever smoked Alcohol use: No CD- Drugs: No Caffeine use: Yes Place of Residence: Home Physical Examination Temp Pulse Resp BP Pulse Ox 98.7 F 67 16 168/83 H 100 03/27/24 12:00 03/27/24 12:00 03/27/24 12:00 03/27/24 12:00 03/27/24 12:00 Laboratory Data (last 24 hrs) 03/27/24 03/27/24 03/27/24 06:23 06:23 06:11 WBC 8.00 Hgb 8.4 L Hct 25.2 L Plt Count 183 PT 14.8 H INR 1.33 Sodium 136 Potassium 4.6 BUN 60 H Creatinine 8.87 H Glucose 192 H Magnesium 2.1 Total Bilirubin 0.5 AST 47 H ALT 283 H Alkaline Phosphatase 128 H Conclusions/Impression: A/P) 1. ESRD 2nd to DM/HTN -on iHD TTS, HD ordered for today, see orders for details 2. Afib with RVR (unknown duration, more recent onset and post recent CABG), management per Cardiology. Need to clarify home meds including Metoprolol dose 3. Chronic HTN with heart and kidney disease -BP initially lower post surgery but then had trended up mod, currently acceptable this AM but on diltiazem drip, f/u post HD BP 4. Type II DM with other complications -cont strict diabetic control 5. Anemia 2nd to CKD -monitor H/H closely Elliott Bajwa MD, EUGENIE
--- NOTE | 2024-03-27 14:41 | P.CNS ---
Date of Consult: 03/27/24 Reason for Consult: ESRD, missed HD, syncope Requesting Physician: Radha Howell Chief Complaint: Syncopal episode History of Present Illness: Pt is a 49-year-old male with a past medical history of IDDM, chronic malignant HTN, ESRD on iHD for > 1 yr, CAD s/p recent CABG, recent Afib with RVR episode for which he was admitted late last mo. Last OP HD on which he tolerated well. He reports waking up early this AM to head to dialysis and felt slightly off, has had some dry cough recently, no other viral syndrome or malaise and apparently suffered a syncopal episode. Pt denies taking any meds this AM prior to episode or any low BG events in the last 24h. His father at home found him and may have briefly administered CPR out of possible initial concern for an arrest but pt presented to ER in stable condition. He has no acute complaints such as CP or dyspnea. Allergies No Known Allergies Allergy (Verified 06/19/23 12:41) Home Medications: Aspirin 81 mg PO DAILY 03/19/24 Furosemide [Lasix*] 40 mg PO BID 03/19/24 Insulin Glargine,Hum.rec.anlog [Toujeo Max Solostar] 15 units SQ DAILY 03/19/24 Losartan Potassium [Cozaar] 50 mg PO DAILY 03/19/24 Sevelamer Carbonate [Renvela*] 800 mg PO TIDWM 03/19/24 Fluconazole 150 mg PO DAILY 03/20/24 Gabapentin [Neurontin*] 300 mg PO DAILY 03/20/24 Apixaban [Eliquis *] 2.5 mg PO BID 30 Days #60 tab 03/21/24 Atorvastatin Calcium [Lipitor] 40 mg PO BEDTIME tab 03/21/24 Metoprolol Tartrate [Lopressor*] 50 mg PO BID 30 Days #60 tab 03/21/24 - Past Medical/Surgical History Diabetic: Yes -: DM II with Polyneuropathy -: HLD -: HTN -: ESRD/ CKD with Proteinura (Dr. Rojas/ Garett) on HD T, TH, Sat -: Pulmonary HTN -: Left arm Fistula -: 3V CABG 01/12 Psychosocial/ Personal History: Patient lives at home alone. - Family History Father Medical History: Diabetes Mother Medical History: Stroke Notes: DM,HTN, ESRD, CABD with stents - Social History Smoking Status: Unknown if ever smoked Alcohol use: No CD- Drugs: No Caffeine use: Yes Place of Residence: Home Review of Systems General: Unremarkable Eyes: Unremarkable ENT: Unremarkable Respiratory: Cough Cardiovascular: As per HPI Gastrointestinal: Unremarkable Genitourinary: Unremarkable Musculoskeletal: Leg Pain Integumentary: Unremarkable Neurological: As per HPI Lymphatics: Unremarkable Physical Examination Temp Pulse Resp BP Pulse Ox 98.7 F 67 16 168/83 H 100 03/27/24 12:00 03/27/24 12:00 03/27/24 12:00 03/27/24 12:00 03/27/24 12:00 General: Alert, In no apparent distress, Cooperative HEENT: Atraumatic, Normocephalic Neck: Supple Respiratory: Normal air movement, Other (Reduced BS lt base) Cardiovascular: No edema, Regular rate/rhythm Gastrointestinal: Soft and benign, Non-distended, No tenderness Musculoskeletal: No clubbing, No swelling, No contractures, Other (Lt forearm AVF with bruit) Integumentary: No rashes Neurological: Normal speech, Normal tone, Normal affect Laboratory Data (last 24 hrs) 03/27/24 03/27/24 03/27/24 06:23 06:23 06:11 WBC 8.00 Hgb 8.4 L Hct 25.2 L Plt Count 183 PT 14.8 H INR 1.33 Sodium 136 Potassium 4.6 BUN 60 H Creatinine 8.87 H Glucose 192 H Magnesium 2.1 Total Bilirubin 0.5 AST 47 H ALT 283 H Alkaline Phosphatase 128 H Conclusions/Impression: A/P) 1. ESRD 2nd to DM/HTN -on iHD TTS, gentle HD ordered for today, see orders for details 2. Syncope -possible cough vasovagal triggered. Other w/u thus far neg, cont to monitor on telemetry 3. Recent Afib unspecified (unknown duration, more recent onset and post recent CABG), had been on recent visit discharged on Metoprolol and Eliquis 3. Chronic HTN with heart and kidney disease -labile BP, review home meds 4. Type II DM with other complications -cont strict diabetic control but monitor for any low BG events 5. Anemia 2nd to CKD -monitor H/H closely Elliott Bajwa MD, EUGENIE
[2024-03-27] MEDS ORDERED: MORPHINE 2 MG/ML SYR IV PRN (22:32)
[2024-03-27] MEDS: HYDROCODONE/APAP 5/325 MG TAB PO PRN (23:04)
[2024-03-28] MEDS: HYDRALAZINE HCL 20 MG/ML VIAL IV PRN (01:51)
[2024-03-28 04:45] LABS: Absolute Basophils 0.1 K/uL (0-0.5); Absolute Eosinophils 0.4 K/uL (0-0.5); Absolute Lymphocytes (CBC) 1.3 K/uL (0.7-4.9); Absolute Monocytes 0.8 K/uL (0.1-1.3); Absolute Neutrophil 5.7 K/uL (1.8-8.0); Basophils % 1.2 % (0-1.3); Eosinophils % 4.6 % (0-4.4); Hematocrit 24.8 % (39.6-49.0); Hemoglobin 8.3 g/dL (13.6-17.9); Lymphocytes % 15.8 % (15.3-44.8); MCH 31.1 pg (27.0-35.0); MCHC 33.6 g/dL (32.0-36.0); MCV 92.7 fL (80-100); MPV 7.3 fL (7.6-11.3); Monocytes % 9.9 % (3.3-12.3); Neutrophils % 68.5 % (41.7-73.7); Platelets 170 thou/uL (152-406); RBC Red Blood Cell Count 2.68 M/uL (4.33-5.43); Red Cell Distribution Width 18.1 % (12.1-15.2)
[2024-03-28 05:06] LABS: Anion Gap 12.4 mEq/L (5.0-15.0); Magnesium 2.1 mg/dL (1.6-2.4); Potassium 4.4 mEq/L (3.5-5.1)
[2024-03-28] MEDS: METOPROLOL TAR 50 MG TAB PO SCH (09:22)
[2024-03-28] MEDS: GABAPENTIN 300 MG CAP PO SCH (09:22)
[2024-03-28] MEDS: LOSARTAN POTASSIUM 50 MG TABLET PO SCH ×2 (09:23→20:39)
--- NOTE | 2024-03-28 13:04 | P.PN ---
Date of Service: 03/28/24 Review of Systems 10-point ROS is otherwise unremarkable General: As per HPI Physical Examination - Physical Exam General: Alert, In no apparent distress, Oriented x3, Other (Generalized weakness) HEENT: Atraumatic, Normocephalic Neck: Supple, JVD not distended Respiratory: Clear to auscultation bilaterally, Normal air movement Cardiovascular: Normal pulses, Regular rate/rhythm, Normal S1 S2, No gallops Gastrointestinal: Normal bowel sounds, Soft and benign Musculoskeletal: No clubbing, No swelling Integumentary: No rashes, No breakdown, c/o left leg tenderness Neurological: Normal speech, Normal strength at 5/5 x4 extr, Normal tone Lymphatics: No axilla or inguinal lymphadenopathy - Studies Laboratory Data (last 24 hrs) 03/27/24 03/27/24 03/27/24 06:23 06:23 06:11 WBC 8.00 Hgb 8.4 L Hct 25.2 L Plt Count 183 PT 14.8 H INR 1.33 Sodium 136 Potassium 4.6 BUN 60 H Creatinine 8.87 H Glucose 192 H Magnesium 2.1 Total Bilirubin 0.5 AST 47 H ALT 283 H Alkaline Phosphatase 128 H Assessment and Plan - Problems (Diagnosis) (1) Episode of syncope Current Visit: Yes Status: Acute (2) ESRD (end stage renal disease) on dialysis Current Visit: No Status: Acute - Plan Admit to [facility] Nephrology consult for hemodialysis Follow-up with nephrology for outpatient hemodialysis schedule PT to eval for fall, evaluate gait abnormality Trend electrolytes replace as needed Monitor BNP, troponin normal, Accu-Cheks ACHS, sliding scale insulin Full code Renal diet DVT SCDs Disposition Home independent prior Discharge Plan: Home 03/29/24 (3) Leg Pain tib/fib x-ray for trauma during syncope US to R/O DVT - Advance Directives Does patient have a Living Will: No Does patient have a Durable POA for Healthcare: No - Code Status/Comfort Care Code Status: Full Code Critical Care: No Assessment and Plan - Problems (Diagnosis) (1) Episode of syncope Current Visit: Yes Status: Acute (2) ESRD (end stage renal disease) on dialysis Current Visit: No Status: Acute - Plan Admit to [facility] Nephrology consult for hemodialysis Follow-up with nephrology for outpatient hemodialysis schedule PT to eval for fall, evaluate gait abnormality Trend electrolytes replace as needed Monitor BNP, troponin normal, Accu-Cheks ACHS, sliding scale insulin Full code Renal diet DVT SCDs Disposition Home independent prior Discharge Plan: Home 03/28/24 c/o left lower extremity pain, will obtain x-ray for unknown trauma during syncopal event and US for DVT as calf is a bit more edematous Dialysis yesterday Pt states they had recently doubled Metoprolol. I discussed with him orthostatic hypotenison. He does admit to similar symptoms although not as severe post dialysis sometimes. - Advance Directives Does patient have a Living Will: No Does patient have a Durable POA for Healthcare: No - Code Status/Comfort Care Code Status: Full Code Critical Care: No
--- NOTE | 2024-03-28 14:21 | P.PN ---
(S) Pt doing fair, some dry cough still present, no dyspnea, ambulating short distances, no orthostatic symptoms, completed HD yesterday without incident. Still with some pain and swelling of Lt calf (O) vitals reviewed in the EMR General: Alert, In no apparent distress, Cooperative HEENT: Atraumatic, Normocephalic Neck: Supple Respiratory: poor air entry, some coughing with breaths, Other (Reduced BS lt base) Cardiovascular: No edema, Regular rate/rhythm Gastrointestinal: Soft and benign, Non-distended, No tenderness Musculoskeletal: No clubbing,some swelling mild of Lt lower leg, No contractures, Other (Lt forearm AVF with bruit) Integumentary: No rashes Neurological: Normal speech, Normal tone, Normal affect Conclusions/Impression: A/P) 1. ESRD 2nd to DM/HTN -on iHD TTS, gentle HD ordered for yesterday, no urgent indication to repeat HD today 2. Syncope -possible cough vasovagal triggered or other. Other w/u thus far neg, cont to monitor on telemetry 3. Recent Afib unspecified (unknown duration, more recent onset and post recent CABG), had been on recent visit discharged on Metoprolol and Eliquis. Currently rate controlled 3. Chronic HTN with heart and kidney disease -labile BP, review home meds, cont Metoprolol and Losartan for now. 4. Type II DM with other complications -cont strict diabetic control but monitor for any low BG events 5. Anemia 2nd to CKD -monitor H/H closely, cont OP NANCY/IV iron dosing at unit Elliott Bajwa MD, EUGENIE
--- NOTE | 2024-03-28 15:29 | RAD REPORT ---
EXAM:Tib Fib Left HISTORY: pain post syncope COMPARISON: None IMPRESSION: Nondisplaced fracture involving the right proximal fibular diaphysis which is only seen on the latera l view. Remote proximal tibial fracture. Vascular stents present. Ossific density in the dorsal soft tissues at the level of the distal tibia may be related to a remote fracture or dystrophic calcification. Calcaneal spurs.
--- NOTE | 2024-03-28 18:43 | RAD REPORT ---
Extremity Venous [facility] [employer] CLINICAL INDICATION: Male, 49 years old.left leg pain post syncope/recent CABG TECHNIQUE: Complete duplex sonography of the lower extremity veins was performed of the affected limb . The examination included compression for vein patency, color Doppler imaging and flow augmentation in response to distal compression of the distal external iliac, common femoral, femoral, popliteal, peroneal, tibial and great saphenous veins. [id number]. COMPARISON: No prior exams FINDINGS: Duplex sonography imaging demonstrates all deep veins examined to be fully compressible with spontane ous, phasic and augmented flow in the affected limb. IMPRESSION: No evidence of deep venous thrombosis in the left lower extremity.
[2024-03-29 09:06] LABS: Anion Gap 11.3 mEq/L (5.0-15.0); Magnesium 2.1 mg/dL (1.6-2.4); Phosphorus 7.7 mg/dL (2.5-4.9); Potassium 5.3 mEq/L (3.5-5.1)
--- NOTE | 2024-03-29 16:26 | P.PN ---
Date of Service: 03/29/24 Subjective Feeling a little dizzy/off this am Review of Systems 10-point ROS is otherwise unremarkable General: As per HPI Physical Examination Vital signs reviewed - Physical Exam General: Alert, In no apparent distress, Oriented x3, Other (Generalized weakness) HEENT: Atraumatic, Normocephalic Neck: Supple, JVD not distended Respiratory: Clear to auscultation bilaterally, Normal air movement Cardiovascular: Normal pulses, Regular rate/rhythm, Normal S1 S2, No gallops Gastrointestinal: Normal bowel sounds, Soft and benign Musculoskeletal: No clubbing, No swelling Integumentary: No rashes, No breakdown, c/o left leg tenderness Neurological: Normal speech, Normal strength at 5/5 x4 extr, Normal tone Lymphatics: No axilla or inguinal lymphadenopathy Assessment and Plan - Problems (Diagnosis) (1) Episode of syncope Current Visit: Yes Status: Acute (2) ESRD (end stage renal disease) on dialysis Current Visit: No Status: Acute 03/29/24 (3) Leg Pain 2nd to nondisplaced proximal fibular fx tib/fib x-ray for trauma during syncope US to R/O DVT - negative for DVT - Plan Admit to [facility] Nephrology consult for hemodialysis Follow-up with nephrology for outpatient hemodialysis schedule PT to eval for fall, evaluate gait abnormality Trend electrolytes replace as needed Monitor BNP, troponin normal, Accu-Cheks ACHS, sliding scale insulin Full code Renal diet DVT SCDs Disposition Home independent prior Discharge Plan: Home 03/28/24 c/o left lower extremity pain, will obtain x-ray for unknown trauma during syncopal event and US for DVT as calf is a bit more edematous Dialysis yesterday Pt states they had recently doubled Metoprolol. I discussed with him orthostatic hypotenison. He does admit to similar symptoms although not as severe post dialysis sometimes. 03/29/24 tib fib x-ray shows proximal left nondisplaced fibula fracture, will place in knee immobilizer as vascular study negative for DVT. Pt to work with PT, states he is a little light headed today Dialysis TTS schedule - Advance Directives Does patient have a Living Will: No Does patient have a Durable POA for Healthcare: No - Code Status/Comfort Care Code Status: Full Code Critical Care: No <Irina Jiménez - Last Filed: 03/29/24 16:20> Patient was seen and examined. Events of the last 24 hours have been noted. Spoke with with DARRICK regarding patient's clinical picture after evaluating and examining the patient independently. I performed a substantial part of the MDM during this patient's care today. I personally made or approved the documented management plan and acknowledge its risk of complications. I agree with the findings and documentation provided in the DARRICK's notes. <Autumn Alaniz - Last Filed: 04/05/24 16:11>
[2024-03-29] MEDS ORDERED: MANNITOL 25% 12.5 GM/50 ML VIAL IV PRN (22:09)
[2024-03-29] MEDS ORDERED: NA CHLORIDE 0.9% 1,000 ML IV PRN (22:09)
--- NOTE | 2024-03-29 22:09 | P.PN ---
Date of Service: 03/29/24 Vital Signs Temp Pulse Resp BP Pulse Ox 98.3 F 87 18 174/80 H 95 03/29/24 20:00 03/29/24 20:00 03/29/24 20:00 03/29/24 20:00 03/29/24 20:00 Medications Hydrocodone Bitart/Acetaminophen (Hydrocodone/Apap 5/325 Mg Tab) 1 tab PO Q4H PRN PRN Reason: Pain scale 5-7 (Moderate) Last Admin: 03/29/24 21:19 Dose: 1 tab Gabapentin (Gabapentin 300 Mg Cap) 300 mg PO DAILY [facility] Last Admin: 03/29/24 08:57 Dose: 300 mg Hydralazine HCl (Hydralazine Hcl 20 Mg/Ml Vial) 10 mg IV Q4HP PRN PRN Reason: Goal to achieve SBP in comment Last Admin: 03/29/24 00:21 Dose: 10 mg Insulin Human Regular (Insulin Regular (Human) 100 Unit/Ml) 0 unit SQ ACHS [facility]; Protocol Last Admin: 03/29/24 21:20 Dose: 3 unit Losartan Potassium (Losartan Potassium 50 Mg Tablet) 50 mg PO BID [facility] Last Admin: 03/29/24 21:19 Dose: 50 mg Metoprolol Tartrate (Metoprolol Tar 50 Mg Tab) 50 mg PO BID [facility] Last Admin: 03/29/24 21:19 Dose: 50 mg Morphine Sulfate (Morphine 2 Mg/Ml Syr) 2 mg IV Q4H PRN PRN Reason: Pain scale 8-10 (Severe) Ondansetron HCl (Ondansetron 4 Mg/2 Ml Vial) 4 mg IV Q6HP PRN PRN Reason: NAUSEA / VOMITING Assessment/ Plan: Nephrology No dyspnea No chest pain Right foot pain No acute events overnight Vitals, medications, blood work and imaging reviewed in the chart General: Alert, In no apparent distress, Cooperative HEENT: Atraumatic, Normocephalic Neck: Supple Respiratory: CTA Cardiovascular: No edema, Regular rate/rhythm Gastrointestinal: Soft and benign, Non-distended, No tenderness Musculoskeletal: No clubbing,some swelling mild of Lt lower leg, No contractures, Other (Lt forearm AVF with bruit) Integumentary: No rashes Neurological: Normal speech, Normal tone, Normal affect Conclusions/Impression: Admitted for Syncope ESRD on HD TTS Proteinuria Hyperkalemia -HD TIW HTN with CKD/ CHF -Continue Losartan -Continue Metoprolol DM II with CKD with Polyneuropathy -RISS -Continue Gabapentin Anemia in CKD -Retacrit qHD CKD MBD -Start [facility] Hospitalist note reviewed
[2024-03-29] MEDS ORDERED: EPOETIN ALFA 10,000 UNIT/ML VIAL IV SCH (22:15)
[2024-03-29] MEDS ORDERED: ALBUMIN HUMAN 25% 50 ML IV SCH (23:00)
[2024-03-30 09:40] LABS: Anion Gap 13.9 mEq/L (5.0-15.0); Magnesium 2.1 mg/dL (1.6-2.4); Phosphorus 7.9 mg/dL (2.5-4.9); Potassium 5.9 mEq/L (3.5-5.1)
[2024-03-30] MEDS: MULTIVITAMINS,THERAPEUT 1 TAB PO SCH (09:55)
[2024-03-30] MEDS: SEVELAMER CARBONATE 800 MG TABLET PO SCH (09:55)
[2024-03-30] MEDS: DOCUSATE NA 100 MG CAP PO SCH (09:55)
[2024-03-30] MEDS: DRISDOL (VITAMIN D=ERGOCALCIFEROL) 50000 UNIT CAP PO SCH (09:55)
[2024-03-30] MEDS: EPOETIN ALFA 10,000 UNIT/ML VIAL IV SCH (11:35)
--- NOTE | 2024-03-30 14:00 | P.DS ---
Admission Date: 03/29/24 Discharge Date: 03/31/24 Reason for Admission: Syncopal episode Brief History of Present Illness: 49-year-old male with a past medical history Congestive heart failure; ESRD; Hypertension; IDDM; Kidney failure- dialysis (Left arm fistula); neuropathy; presents to the emergency room via EMS for a syncopal episode. Patient reportedly had a fall/syncopal episode in the kitchen, father started CPR and called EMS. ER evaluation P 170 / 83; Pulse 72; Resp 18; Temp 98.8; Pulse Ox 97% on R/A; patient is awake and alert reports he was supposed to have dialysis today. Reports mild generalized weakness, dizziness, other review of symptoms no reported, fever no reported chest pain, shortness of breath, nausea vomiting diarrhea, EKG 72 beats/min. Rhythm is regular, Normal Sinus Rhythm. QRS Globe is Normal. GA interval is normal. QRS interval is normal. QT interval is prolonged. No Q waves. T waves are Normal. No ST changes noted. Clinical impression: No evidence of ischemia. NIH stroke scale 0, blood glucose 192, no leukocytosis, microcytic anemia 8.4 25.2, transaminitis, AST 47, ALT 283, elevated BNP 63,819, troponin normal at 45 ,no chest pain, no signs and symptoms of acute fluid overload, CXR IMPRESSION:Pulmonary vascular congestion versus mild edema. CT of the abdomen pelvis 1. Surgical changes from recent sternotomy. Up to 6 mm of sternal dehiscence present with fracture of some of the sternotomy wires.2. Small pleural effusions could be secondary to volume overload/pulmonary edema. C-spine no acute cervical abnormalities, CT of the head no acute abnormalities, plan to admit for syncopal episode, end-stage renal disease on hemodialysis, - Physical Exam General: Alert, In no apparent distress, Oriented x3, Other (Generalized weakness) HEENT: Atraumatic, Normocephalic Neck: Supple, JVD not distended Respiratory: Clear to auscultation bilaterally, Normal air movement Cardiovascular: Normal pulses, Regular rate/rhythm, Normal S1 S2, No gallops Gastrointestinal: Normal bowel sounds, Soft and benign Musculoskeletal: No clubbing, No swelling Integumentary: No rashes, No breakdown, Other Neurological: Normal speech, Normal strength at 5/5 x4 extr, Normal tone Lymphatics: No axilla or inguinal lymphadenopathy Hospital Course: 49-year-old male with a past medical history Congestive heart failure; ESRD; Hypertension; IDDM; Kidney failure- dialysis (Left arm fistula); neuropathy; presents to the emergency room via EMS for a syncopal episode. Patient reportedly had a fall/syncopal episode in the kitchen, father started CPR and called EMS. Was admitted for syncope, history of end-stage renal disease on hemodialysis Friday. Patient was seen by nephrology, hide with dialysis while inpatient. Plan to discharge home with home health senior care, PT after discharge- following walker ordered at discharge Assessment Syncope-orthostatics done with PT, patient was vital signs were stable Elevated BNP, treated with hemodialysis while Nondisplaced fracture involving the right proximal fibular diaphysis which is only seen on the lateral view. Has knee immobilizer seen by PT while inpatient Remote proximal tibial fracture. Pictures of your baby's patient was seen by PT, End-stage renal disease hemodialysis, follow-up with dialysis outpatient per nephrology schedule Hypertension with CKD, CHF, continue losartan, metoprolol Diabetes type 2 with CKD, polyneuropathy, continue gabapentin, Anemia secondary to chronic disease, treated by nephrology Venous Doppler No evidence of deep venous thrombosis in the left lower extremity. CT of the head no acute abnormality CT of the chest abdomen pelvis 1. Surgical changes from recent sternotomy. Up to 6 mm of sternal dehiscence present with fracture of some of the sternotomy wires. 2. Small pleural effusions could be secondary to volume overload/pulmonary edema Continue home medicines as previously prescribed GOAL: Clear understanding of disease process INSTRUCTIONS: Physician Discharge Instructions: -Follow-up with nephrology after discharge for hemodialysis -Follow-up with PCP in 1 to 2 weeks -Please call Dr. Alaniz at [phone] if any questions regarding hospital stay -Please call nursing station at [phone] if any nursing or medication questions -Return to the emergency room if symptoms worsen Diet: ADA, low sodium Activity: Fall precautions <Radha Howell - Last Filed: 03/31/24 19:00> Admission Date: 03/29/24 Discharge Date: 03/31/24 Hospital Course: Patient was seen and examined. Events of the last 24 hours have been noted. Spoke with with DARRICK regarding patient's clinical picture after evaluating and examining the patient independently. I performed a substantial part of the MDM during this patient's care today. I personally made or approved the documented management plan and acknowledge its risk of complications. I agree with the findings and documentation provided in the DARRICK's notes. <Autumn Alaniz - Last Filed: 04/05/24 16:12> Disposition: DC HOME/HOME HEALTH CARE Vital Signs/Physical Exam: Temp Pulse Resp BP Pulse Ox 97.2 F 79 17 161/73 H 96 03/30/24 08:00 03/30/24 08:00 03/30/24 08:00 03/30/24 08:00 03/30/24 08:00 Laboratory Data at Discharge: WBC 8.30 thou/uL (4.3-10.9) 03/28/24 04:29 Hgb 8.3 g/dL (13.6-17.9) L 03/28/24 04:29 Hct 24.8 % (39.6-49.0) L 03/28/24 04:29 Plt Count 170 thou/uL (152-406) 03/28/24 04:29 PT 14.8 SECONDS (9.4-12.5) H 03/27/24 06:23 INR 1.33 03/27/24 06:23 Sodium 130 mEq/L (136-145) L 03/30/24 09:09 Potassium 5.9 mEq/L (3.5-5.1) H 03/30/24 09:09 BUN 73 mg/dL (7-18) H 03/30/24 09:09 Creatinine 10.70 mg/dL (0.70-1.30) H 03/30/24 09:09 Glucose 195 mg/dL (74-106) H 03/30/24 09:09 Phosphorus 7.9 mg/dL (2.5-4.9) H 03/30/24 09:09 Magnesium 2.1 mg/dL (1.6-2.4) 03/30/24 09:09 Total Bilirubin 0.5 mg/dL (0.2-1.0) 03/27/24 06:23 AST 47 U/L (15-37) H 03/27/24 06:23 ALT 283 U/L (16-61) H 03/27/24 06:23 Alkaline Phosphatase 128 U/L (45-117) H 03/27/24 06:23 <Radha Howell - Last Filed: 03/31/24 19:00> Vital Signs/Physical Exam: Temp Pulse Resp BP Pulse Ox 99.1 F 84 12 177/83 H 95 03/31/24 12:00 03/31/24 12:00 03/31/24 12:00 03/31/24 12:00 03/31/24 12:00 Laboratory Data at Discharge: WBC 8.40 thou/uL (4.3-10.9) 03/31/24 04:44 Hgb 9.0 g/dL (13.6-17.9) L 03/31/24 04:44 Hct 26.5 % (39.6-49.0) L 03/31/24 04:44 Plt Count 180 thou/uL (152-406) 03/31/24 04:44 PT 14.8 SECONDS (9.4-12.5) H 03/27/24 06:23 INR 1.33 03/27/24 06:23 Sodium 132 mEq/L (136-145) L 03/31/24 04:44 Potassium 5.1 mEq/L (3.5-5.1) D 03/31/24 04:44 BUN 55 mg/dL (7-18) H 03/31/24 04:44 Creatinine 8.35 mg/dL (0.70-1.30) H 03/31/24 04:44 Glucose 134 mg/dL (74-106) H 03/31/24 04:44 Phosphorus 6.0 mg/dL (2.5-4.9) H 03/31/24 04:44 Magnesium 1.9 mg/dL (1.6-2.4) 03/31/24 04:44 Total Bilirubin 0.6 mg/dL (0.2-1.0) 03/31/24 04:44 AST < 10 U/L (15-37) L 03/31/24 04:44 ALT 97 U/L (16-61) H 03/31/24 04:44 Alkaline Phosphatase 111 U/L (45-117) 03/31/24 04:44 <Autumn Alaniz - Last Filed: 04/05/24 16:12> Time spent managing pt's care (in minutes): 45 <Radha Howell - Last Filed: 03/31/24 19:00> <Autumn Alaniz - Last Filed: 04/05/24 16:12> Home Medications: Aspirin 81 mg PO DAILY 03/19/24 Furosemide [Lasix*] 40 mg PO BID 03/19/24 Insulin Glargine,Hum.rec.anlog [Toujeo Max Solostar] 15 units SQ DAILY 03/19/24 Losartan Potassium [Cozaar] 50 mg PO DAILY 03/19/24 Sevelamer Carbonate [Renvela*] 800 mg PO TIDWM 03/19/24 Fluconazole 150 mg PO DAILY 03/20/24 Apixaban [Eliquis *] 2.5 mg PO BID 30 Days #60 tab 03/21/24 Atorvastatin Calcium [Lipitor] 40 mg PO BEDTIME tab 03/21/24 Metoprolol Tartrate [Lopressor*] 50 mg PO BID 30 Days #60 tab 03/21/24 Docusate [Colace Cap*] 100 mg PO BID cap 03/30/24 Gabapentin [Neurontin*] 300 mg PO DAILY 30 Days #30 cap 03/30/24 Hydrocodone 5/APAP 325 [[place] 5/325*] 1 tab PO Q4H PRN tab 03/30/24 Metoprolol Tartrate [Lopressor*] 50 mg PO BID tab 03/30/24 Vitamin D [Drisdol*] 50,000 unit PO DAILY cap 03/30/24 New Medications: Gabapentin [Neurontin*] 300 mg PO DAILY 30 Days #30 cap Physician Discharge Instructions: 49-year-old male with a past medical history Congestive heart failure; ESRD; Hypertension; IDDM; Kidney failure- dialysis (Left arm fistula); neuropathy; presents to the emergency room via EMS for a syncopal episode. Patient reportedly had a fall/syncopal episode in the kitchen, father started CPR and called EMS. Was admitted for syncope, history of end-stage renal disease on hemodialysis Friday. Patient was seen by nephrology, hide with dialysis while inpatient. Plan to discharge home with home health senior care, PT after discharge- following walker ordered at discharge Assessment Syncope-orthostatics done with PT, patient was vital signs were stable Elevated BNP, treated with hemodialysis while Nondisplaced fracture involving the right proximal fibular diaphysis which is only seen on the lateral view. Remote proximal tibial fracture. Pictures of your baby's patient was seen by PT, End-stage renal disease hemodialysis, follow-up with dialysis outpatient per nephrology schedule Hypertension with CKD, CHF, continue losartan, metoprolol Diabetes type 2 with CKD, polyneuropathy, continue gabapentin, Anemia secondary to chronic disease, treated by nephrology Venous Doppler No evidence of deep venous thrombosis in the left lower extremity. CT of the head no acute abnormality CT of the chest abdomen pelvis 1. Surgical changes from recent sternotomy. Up to 6 mm of sternal dehiscence present with fracture of some of the sternotomy wires. 2. Small pleural effusions could be secondary to volume overload/pulmonary edema Continue home medicines as previously prescribed GOAL: Clear understanding of disease process INSTRUCTIONS: Physician Discharge Instructions: -Follow-up with nephrology after discharge for hemodialysis -Follow-up with PCP in 1 to 2 weeks -Please call Dr. Alaniz at [phone] if any questions regarding hospital stay -Please call nursing station at [phone] if any nursing or medication questions -Return to the emergency room if symptoms worsen Diet: ADA, low sodium Activity: Fall precautions Followup: Zeeshan Rojas DO [ACTIVE - CAN ADMIT] - 1-2 Weeks OOT,OOT [Primary Care Provider] -
--- NOTE | 2024-03-30 19:45 | P.PN ---
Date of Service: 03/30/24 subjective hemodialysis today Review of Systems 10-point ROS is otherwise unremarkable Physical Examination - Physical Exam vital signs Reviewed General: Alert, Oriented x3, Respiratory: Clear to auscultation bilaterally, Normal air movement Cardiovascular: Normal pulses, Regular rate/rhythm, Normal S1 S2, No gallops Gastrointestinal: Normal bowel sounds, Soft and benign Musculoskeletal: No clubbing, No swelling generalized weakness Integumentary: No rashes, No breakdown, Other Neurological: Normal speech, Normal strength at 5/5 x4 extr, Normal tone Assessment and Plan - Problems (Diagnosis) (1) Episode of syncope Current Visit: Yes Status: Acute (2) ESRD (end stage renal disease) on dialysis Current Visit: No Status: Acute (3) Leg Pain 2nd to nondisplaced proximal fibular fx (4) Fall PT to eval for fall, evaluate gait abnormality 03/29/24 tib fib x-ray shows proximal left nondisplaced fibula fracture, will place in knee immobilizer as vascular study negative for DVT. CT of the head no acute abnormality CT of the chest abdomen pelvis 1. Surgical changes from recent sternotomy. Up to 6 mm of sternal dehiscence present with fracture of some of the sternotomy wires. 2. Small pleural effusions could be secondary to volume overload/pulmon olga edema Syncope-orthostatics done with PT, patient was vital signs were stable (5) Elevated BNP, (6) Small pleural effusions treated with hemodialysis while Nephrology consult for hemodialysis Follow-up with nephrology for outpatient hemodialysis schedule Trend electrolytes replace as needed Monitor BNP, troponin normal, Accu-Cheks ACHS, sliding scale insulin Full code Renal diet DVT SCDs Disposition Home independent prior Discharge Plan: Home - Advance Directives Does patient have a Living Will: No Does patient have a Durable POA for Healthcare: No - Code Status/Comfort Care Code Status: Full Code Critical Care: No Time Spent Managing Pts Care (In Minutes): 35 <Radha Howell - Last Filed: 03/30/24 19:46> Patient was seen and examined. Events of the last 24 hours have been noted. Spoke with with DARRICK regarding patient's clinical picture after evaluating and examining the patient independently. I performed a substantial part of the MDM during this patient's care today. I personally made or approved the documented management plan and acknowledge its risk of complications. I agree with the findings and documentation provided in the DARRICK's notes. <Autumn Alaniz - Last Filed: 04/05/24 16:12>
--- NOTE | 2024-03-30 20:15 | P.PN ---
Date of Service: 03/30/24 Vital Signs Temp Pulse Resp BP Pulse Ox 98.2 F 87 17 156/75 H 93 03/30/24 16:00 03/30/24 16:00 03/30/24 16:00 03/30/24 16:00 03/30/24 16:00 Medications Hydrocodone Bitart/Acetaminophen (Hydrocodone/Apap 5/325 Mg Tab) 1 tab PO Q4H PRN PRN Reason: Pain scale 5-7 (Moderate) Last Admin: 03/29/24 21:19 Dose: 1 tab Docusate Sodium (Docusate Na 100 Mg Cap) 100 mg PO BID [facility] Last Admin: 03/30/24 09:55 Dose: 100 mg Epoetin Jac (Epoetin Jac 10,000 Unit/Ml Vial) 10,000 unit IV EVERY HD [facility] Last Admin: 03/30/24 11:35 Dose: 10,000 unit Ergocalciferol (Drisdol (Vitamin D=Ergocalciferol) 18371 Unit Cap) 50,000 unit PO DAILY [facility] Stop: 03/31/24 09:01 Last Admin: 03/30/24 09:55 Dose: 50,000 unit Gabapentin (Gabapentin 300 Mg Cap) 300 mg PO DAILY [facility] Last Admin: 03/30/24 09:55 Dose: 300 mg Heparin Sodium (Porcine) (Heparin 1,000 Unit/Ml Vial) 6,000 unit IV EVERY HD PRN PRN Reason: AFTER EACH Hydralazine HCl (Hydralazine Hcl 20 Mg/Ml Vial) 10 mg IV Q4HP PRN PRN Reason: Goal to achieve SBP in comment Last Admin: 03/29/24 22:20 Dose: 10 mg Albumin Human (Albumin 25%) 50 mls @ 100 mls/hr IV EVERY HD [facility] Insulin Human Regular (Insulin Regular (Human) 100 Unit/Ml) 0 unit SQ ACHS [facility]; Protocol Last Admin: 03/30/24 17:09 Dose: 5 unit Losartan Potassium (Losartan Potassium 50 Mg Tablet) 50 mg PO BID [facility] Last Admin: 03/30/24 09:00 Dose: Not Given Mannitol (Mannitol 25% 12.5 Gm/50 Ml Vial) 12.5 gm IV EVERY HD PRN PRN Reason: Titrate to SBP (MUST DEFINE) Metoprolol Tartrate (Metoprolol Tar 50 Mg Tab) 50 mg PO BID [facility] Last Admin: 03/30/24 09:00 Dose: Not Given Morphine Sulfate (Morphine 2 Mg/Ml Syr) 2 mg IV Q4H PRN PRN Reason: Pain scale 8-10 (Severe) Ondansetron HCl (Ondansetron 4 Mg/2 Ml Vial) 4 mg IV Q6HP PRN PRN Reason: NAUSEA / VOMITING Sevelamer Carbonate (Sevelamer Carbonate 800 Mg Tablet) 1,600 mg PO TIDWM [facility] Vitamin B Complex/Vit C/Folic Acid (Multivitamins,Therapeut 1 Tab) 1 tab PO DAILY [facility] Last Admin: 03/30/24 09:55 Dose: 1 tab Assessment/ Plan: Nephrology No dyspnea No chest pain Right foot pain No acute events overnight Vitals, medications, blood work and imaging reviewed in the chart General: Alert, In no apparent distress, Cooperative HEENT: Atraumatic, Normocephalic Neck: Supple Respiratory: CTA Cardiovascular: No edema, Regular rate/rhythm Gastrointestinal: Soft and benign, Non-distended, No tenderness Musculoskeletal: No clubbing,some swelling mild of Lt lower leg, No contractures, Other (Lt forearm AVF with bruit) Integumentary: No rashes Neurological: Normal speech, Normal tone, Normal affect Conclusions/Impression: Admitted for Syncope ESRD on HD TTS Proteinuria Hyperkalemia -HD TIW -Lokelma X1 HTN with CKD/ CHF -Continue Losartan -Continue Metoprolol DM II with CKD with Polyneuropathy -RISS -Continue Gabapentin Anemia in CKD -Retacrit qHD CKD MBD -Increase Renvela -Continue Ergo Hospitalist note reviewed
[2024-03-30] MEDS: SODIUM ZIRCONIUM CYCLOSILICATE 10 GM/PKT PO ONE (21:41)
[2024-03-31 05:13] LABS: Hematocrit 26.5 % (39.6-49.0); MCH 31.4 pg (27.0-35.0); MCHC 33.9 g/dL (32.0-36.0); MCV 92.6 fL (80-100); MPV 7.8 fL (7.6-11.3); Platelets 180 thou/uL (152-406); RBC Red Blood Cell Count 2.86 M/uL (4.33-5.43)
[2024-03-31 05:38] LABS: ALT/SGPT 97 U/L (16-61); Albumin 3.2 g/dL (3.4-5.0); Albumin/Globulin Ratio 0.9 (1.1-1.8); Alkaline Phosphatase 111 U/L (45-117); Anion Gap 11.1 mEq/L (5.0-15.0); BUN Blood Urea Nitrogen 55 mg/dL (7-18); Bicarbonate 27 mEq/L (21-32); Bilirubin Total 0.6 mg/dL (0.2-1.0); Globulin 3.7 g/dL (2.3-3.5); Glomerular Filtration Rate 7 ml/min (=/>90); Glucose Level 134 mg/dL (74-106); Magnesium 1.9 mg/dL (1.6-2.4); Potassium 5.1 mEq/L (3.5-5.1); Protein, Total 6.9 g/dL (6.4-8.2); Sodium Level 132 mEq/L (136-145)
[2024-03-31 05:40] LABS: AST/SGOT < 10 U/L (15-37)
[2024-03-31] MEDS: SODIUM ZIRCONIUM CYCLOSILICATE 10 GM/PKT PO ONE (09:02)
[2024-03-31] MEDS: SEVELAMER CARBONATE 800 MG TABLET PO SCH (09:03)
[2024-03-31 11:46] VITALS: O2SAT 96
[2024-03-31 12:44] VITALS: BP 177/83; TEMP 99.1
--- NOTE | 2024-03-31 20:18 | P.PN ---
Date of Service: 03/31/24 Vital Signs Temp Pulse Resp BP Pulse Ox 99.1 F 84 12 177/83 H 95 03/31/24 12:00 03/31/24 12:00 03/31/24 12:00 03/31/24 12:00 03/31/24 12:00 Assessment/ Plan: Nephrology No dyspnea No chest pain Right foot pain No acute events overnight Vitals, medications, blood work and imaging reviewed in the chart General: Alert, In no apparent distress, Cooperative HEENT: Atraumatic, Normocephalic Neck: Supple Respiratory: CTA Cardiovascular: No edema, Regular rate/rhythm Gastrointestinal: Soft and benign, Non-distended, No tenderness Musculoskeletal: No clubbing,some swelling mild of Lt lower leg, No contractures, Other (Lt forearm AVF with bruit) Integumentary: No rashes Neurological: Normal speech, Normal tone, Normal affect Conclusions/Impression: Admitted for Syncope ESRD on HD TTS Proteinuria Hyperkalemia -HD TIW -Lokelma X1 HTN with CKD/ CHF -Continue Losartan -Continue Metoprolol DM II with CKD with Polyneuropathy -RISS -Continue Gabapentin Anemia in CKD -Retacrit qHD CKD MBD -Continue Renvela -Continue Ergo Hospitalist note reviewed Case reviewed with Dr. Alaniz
== END 2024-03-31 13:44 | disposition home health service (06) | DRG 291 ==
LOC: ER 05:49 → ERHOLD 08:38 → OBSVTOIN 08:38 → INTOOBSV 08:38 → 2ND 09:32 → OBSVTOIN 03-29 05:32
PROVIDERS: ADMIT Internal Medicine; ATTEND Hospitalist
PROC: 5A1D70Z Performance of Urinary Filtration, Intermittent, Less than 6 Hours Per Day (ICD-10-PCS; principal; 2024-03-29)
DX: I13.2 Hypertensive heart and chronic kidney disease with heart failure and with stage 5 chronic kidney disease, or end stage renal disease (principal); I50.33 Acute on chronic diastolic (congestive) heart failure; N18.6 End stage renal disease; E11.22 Type 2 diabetes mellitus with diabetic chronic kidney disease; E11.42 Type 2 diabetes mellitus with diabetic polyneuropathy; D63.1 Anemia in chronic kidney disease; D50.9 Iron deficiency anemia, unspecified; S82.492A Other fracture of shaft of left fibula, initial encounter for closed fracture; E87.5 Hyperkalemia; E78.5 Hyperlipidemia, unspecified; I48.91 Unspecified atrial fibrillation; I25.10 Atherosclerotic heart disease of native coronary artery without angina pectoris; R55 Syncope and collapse; Z23 Encounter for immunization; Z99.2 Dependence on renal dialysis; Z79.4 Long term (current) use of insulin; Z60.2 Problems related to living alone; Z95.1 Presence of aortocoronary bypass graft; Z79.82 Long term (current) use of aspirin; Z79.01 Long term (current) use of anticoagulants; Z79.02 Long term (current) use of antithrombotics/antiplatelets; Z79.899 Other long term (current) drug therapy; Z91.158 Patient's noncompliance with renal dialysis for other reason; W18.30XA Fall on same level, unspecified, initial encounter; Y93.9 Activity, unspecified; Y99.9 Unspecified external cause status; Y92.010 Kitchen of single-family (private) house as the place of occurrence of the external cause
CPT/HCPCS: 36415; 70450; 71045; 71250; 72125; 74176; 80048; 80053; 80076; 81001; 82947; 83605; 83735; 83880; 84100; 84484; 85025; 85027; 85610; 90935; 93971; 97110; 97116; 97162; 97530; 97760; 99285; G0378; J0360; J1644; J7040; P9047

== ENCOUNTER 2024-04-03 12:32 | Emergency (ER) | payer BC, OTHER ==
[2024-04-03 14:37] LABS: Absolute Basophils 0.1 K/uL (0-0.5); Absolute Eosinophils 0.2 K/uL (0-0.5); Absolute Lymphocytes (CBC) 0.7 K/uL (0.7-4.9); Absolute Monocytes 0.6 K/uL (0.1-1.3); Absolute Neutrophil 5.5 K/uL (1.8-8.0); Basophils % 0.7 % (0-1.3); Eosinophils % 3.4 % (0-4.4); Hematocrit 26.9 % (39.6-49.0); Lymphocytes % 9.6 % (15.3-44.8); MCH 30.7 pg (27.0-35.0); MCHC 33.5 g/dL (32.0-36.0); MCV 91.6 fL (80-100); MPV 7.9 fL (7.6-11.3); Monocytes % 9.1 % (3.3-12.3); Neutrophils % 77.2 % (41.7-73.7); Platelets 202 thou/uL (152-406); RBC Red Blood Cell Count 2.94 M/uL (4.33-5.43); Red Cell Distribution Width 16.9 % (12.1-15.2)
[2024-04-03 14:43] LABS: PT Prothrombin Time 14.2 SECONDS (9.4-12.5); Protime INR 1.28
[2024-04-03 14:58] LABS: Anion Gap 8.9 mEq/L (5.0-15.0); Troponin High Sensitivity 36.7 pg/mL (<58.9)
--- NOTE | 2024-04-03 14:59 | RAD REPORT ---
EXAM: CT brain without contrast HISTORY: SYNCOPE COMPARISON: 03/27/2024 TECHNIQUE: Multiple contiguous axial images were obtained and a CT of the brain without contrast. Sag ittal and coronal reformats were performed. One or more of the following dose reduction techniques were used: Automated exposure control, adjust ment of the mA and/or kV according to patient size, and/or iterative reconstruction. FINDINGS: No evidence of hydrocephalus, intracranial hemorrhage, or extra-axial fluid collection. The brain is normal in morphology. No evidence of midline shift or areas of brain edema. The calvarium is intact. The visualized paranasal sinuses and mastoid air cells are essentially clear . Vertebral atherosclerosis. IMPRESSION: No evidence of acute intracranial abnormality.
[2024-04-03 15:00] LABS: Potassium 3.9 mEq/L (3.5-5.1)
--- NOTE | 2024-04-03 15:02 | RAD REPORT ---
EXAMINATION: ONE VIEW CHEST XR CLINICAL INDICATION: Syncope TECHNIQUE: Frontal chest projection is submitted. Examination is limited by patient positioning and t echnique. COMPARISON: 03/27/2024 FINDINGS: Mild interstitial pulmonary edema. The heart is moderately enlarged. No displaced fractures identifie d. Sternotomy wire. IMPRESSION: Mild CHF.
--- NOTE | 2024-04-03 16:01 | EDPHYS ---
Physician Documentation [facility] Name: Chava Pate Age: 49 yrs Sex: Male : 1975 Arrival Date: 04/03/2024 Time: 12:32 Bed 19 Private MD: ED Physician Geovanny Petty HPI: 04/03 13:32 This 49 yrs old Male presents to ER via Wheelchair with complaints of fell bo1 down and hit head, High Blood Pressure. 14:12 Onset: The symptoms/episode began/occurred suddenly, today, 1 hour(s) ago. The patient bo1 has experienced similar episodes in the past, several times, Pt has fallen w/o known cause, he feels dizzy. Pt has been not taking his Eliquis. Last dose was either Fri or . 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 bo1 Historical: - Allergies: 12:41 Eliquis; ll1 - PMHx: 12:41 Congestive heart failure; ESRD; Hypertension; IDDM; Kidney failure- dialysis (Left arm ll1 fistula); neuropathy; - PSHx: 12:41 Left arm fistula; triple heart bypass; ll1 - Immunization history:: Adult Immunizations unknown. - Infectious Disease History:: Denies. - Social history:: Smoking status: Patient denies any tobacco usage or history of. 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, 15:50 Eyes: Negative for blurry vision, visual disturbance, 15:50 Neck: Negative for pain with movement, pain at rest, 15:50 Cardiovascular: Negative for chest pain, 15:50 Respiratory: Positive for shortness of breath, Mild, 15:50 MS/extremity: Positive for swelling, Hx of swelling for a long time, better after dialysis, Negative for pain, 15:50 Skin: Positive for swelling, Both lower legs, 15:50 Neuro: Positive for dizziness, weakness, Typical of post dialysis symptoms, this has happened before, Negative for altered mental status, 15:50 All other systems are negative, Exam: 15:55 Constitutional: This is a well developed, well nourished patient who is awake, alert, bo1 and in no acute distress. 15:55 Head/face: Exam is negative for cid signs, laceration(s), raccoon eyes, tenderness, Noted is abrasion(s), that are mild, of the right eye, 15:55 Eyes: Exam is negative for acute changes, 15:55 Neck: External neck: is normal, no acute changes, 15:55 Cardiovascular: Rate: normal, Rhythm: regular, Pulses: no pulse deficits are appreciated, 15:55 ECG was reviewed by the Attending Physician. 15:55 Respiratory: the patient does not display signs of respiratory distress, Respirations: normal, Breath sounds: decreased breath sounds, are located in both bases, 15:55 Abdomen/GI: Inspection: abdomen appears normal, Palpation: abdomen is soft and non-tender, 15:55 Musculoskeletal/extremity: Extremities: Swollen non-pitting LE bilaterally, 15:55 Skin: Chronic changes from ESRD. 15:55 Neuro: Exam negative for acute changes, focal neuro deficits, altered mental status, 15:59 Musculoskeletal/extremity: Dialysis graft in place. bo1 Vital Signs: 12:42 BP 151 / 89; Pulse 90; Resp 18; Temp 98; Pulse Ox 98% ; Weight 102.06 kg; Height 5 ft. ll1 8 in. ; Pain 8/10; 14:00 BP 151 / 79; Pulse 85; Resp 18; Pulse Ox 98% on R/A; db 16:00 BP 168 / 98; Pulse 86; Resp 16; Pulse Ox 95% on R/A; db 12:42 Body Mass Index 34.21 (102.06 kg, 172.72 cm) ll1 12:42 Pain Scale: Adult ll1 MDM: 13:32 Medical Screening Exam initiated bo1 15:53 Differential diagnosis: Post dialysis hypovolemia, CHF ESRD Closed head injury. Data bo1 reviewed: vital signs, lab test result(s), EKG, radiologic studies, CT scan, plain films. ED course: Pt is A and O x 3. No distress. No AMS. Pt is stable for discharge. 04/03 14:14 Order name: Basic Metabolic Panel; Complete Time: 15:03 bo1 04/03 14:14 Order name: CBC with Diff; Complete Time: 15:03 bo1 04/03 14:14 Order name: PT-INR; Complete Time: 15:03 bo1 04/03 14:14 Order name: Troponin HS; Complete Time: 15:03 bo1 04/03 14:14 Order name: XRAY Chest (1 view); Complete Time: 15:03 bo1 04/03 14:16 Order name: CT Head Brain wo Cont; Complete Time: 15:03 bo1 04/03 14:14 Order name: Cardiac monitoring; Complete Time: 14:30 bo1 04/03 14:14 Order name: EKG - Nurse/Tech; Complete Time: 14:30 bo1 04/03 14:14 Order name: IV Saline Lock; Complete Time: 14:37 bo1 04/03 14:14 Order name: Labs collected and sent; Complete Time: 14:37 bo1 04/03 14:14 Order name: O2 Per Protocol; Complete Time: 14:37 bo1 04/03 14:14 Order name: O2 Sat Monitoring; Complete Time: 14:37 bo1 EC:55 Rate is 86 beats/min. Rhythm is regular. QRS [place] is Normal. [place] interval is normal. QRS bo1 interval is normal. QT interval is prolonged. Q waves are Present in leads aVR, V1, V2. No ST changes noted. Clinical impression: Normal ECG and left ant fasicular block. Interpreted by me. Reviewed by me. Administered Medications: 15:44 CANCELLED (Not needed): [id number] mg PO once bo1 Disposition Summary: 04/03/24 16:01 Discharge Ordered Notes: Location: Home bo1 Problem: an acute exacerbation bo1 Symptoms: are unchanged bo1 Condition: Stable bo1 Diagnosis - Fall on same level, unspecified bo1 - Dizziness and giddiness bo1 - End stage renal disease bo1 - Unspecified injury of head, initial encounter bo1 Followup: bo1 - With: Private Physician - When: Upon discharge from the Emergency Department - Reason: Recheck today's complaints, Continuance of care Discharge Instructions: - Discharge Summary Sheet bo1 - Head Injury, Adult bo1 - Dizziness, [id number] bo1 Forms: - Medication Reconciliation Form bo1 - Antibiotic Education bo1 - Prescription Opioid Use bo1 - Patient Portal Instructions bo1 - Leadership Thank You Letter bo1 Signatures: Dispatcher [employer] Gretta Curry RN RN ll1 Stephanie Palmer RN RN db OeiGeovanny MD MD bo1 Corrections: (The following items were deleted from the chart) 14:15 14:15 BASIC METABOLIC PANEL+C.LAB.BRZ ordered. EDMS EDMS 14:15 14:15 CBC+H.LAB.BRZ ordered. EDMS EDMS 14:15 14:15 PROTIME (+INR)+COAG.LAB.BRZ ordered. EDMS EDMS 14:15 14:15 Troponin High Sensitivity+C.LAB.BRZ ordered. EDMS EDMS 14:15 14:15 Chest Single View+RAD.RAD.BRZ ordered. EDMS EDMS 15:44 15:04 Furosemide PO 20 mg PO once ordered. bo1 bo1
--- NOTE | 2024-04-03 16:01 | ER ---
Nurse's Notes [facility] Name: Chava Pate Age: 49 yrs Sex: Male : 1975 Arrival Date: 04/03/2024 Time: 12:32 Bed 19 Private MD: Diagnosis: Fall on same level, unspecified;Dizziness and giddiness;End stage renal disease;Unspecified injury of head, initial encounter Presentation: 04/03 12:42 Chief complaint: Patient states: Syncope episode today. Hit R side of head. Abrasion R ll1 eyebrow area. Just released Friday, states he never felt better after being admitted. Coronavirus screen: Client denies travel out of the [place] in the last 14 days. At this time, the client does not indicate any symptoms associated with coronavirus-19. Ebola Screen: Patient denies travel to an Ebola-affected area in the 21 days before illness onset. Initial Sepsis Screen: Does the patient meet any 2 criteria? No. Patient's initial sepsis screen is negative. Does the patient have a suspected source of infection? No. Patient's initial sepsis screen is negative. Risk Assessment: Do you want to hurt yourself or someone else? Patient reports no desire to harm self or others. Onset of symptoms was April 03, 2024. 12:42 Method Of Arrival: Wheelchair ll1 12:42 Acuity: EDINSON 2 ll1 Triage Assessment: 12:46 General: Appears uncomfortable, Behavior is calm, cooperative, appropriate for age. ll1 Pain: Complains of pain in scalp Quality of pain is described as aching. Neuro: Reports headache. Derm: Reports abrasion R eyebrow area. Historical: - Allergies: 12:41 Eliquis; ll1 - PMHx: 12:41 Congestive heart failure; ESRD; Hypertension; IDDM; Kidney failure- dialysis (Left arm ll1 fistula); neuropathy; - PSHx: 12:41 Left arm fistula; triple heart bypass; ll1 - Immunization history:: Adult Immunizations unknown. - Infectious Disease History:: Denies. - Social history:: Smoking status: Patient denies any tobacco usage or history of. Screenin:00 [facility] ED Fall Risk Assessment (Adult) History of falling in the last 3 months, db including since admission No falls in past 3 months (0 pts) Confusion or Disorientation No (0 pts) Intoxicated or Sedated No (0 pts) Impaired Gait No (0 pts) Mobility Assist Device Used Yes (1 pt) Altered Elimination Yes (1 pt) Score/Fall Risk Level 0 - 2 = Low Risk Oriented to surroundings, Maintained a safe environment. Abuse screen: Denies threats or abuse. Denies injuries from another. Nutritional screening: No deficits noted. Tuberculosis screening: No symptoms or risk factors identified. Assessment: 14:30 Reassessment: Patient appears in no apparent distress at this time. Patient and/or db family updated on plan of care and expected duration. Pain level reassessed. Patient is alert, oriented x 3, equal unlabored respirations, skin warm/dry/pink. General: Appears in no apparent distress. comfortable, Behavior is calm, cooperative. Neuro: Level of Consciousness is awake, alert, obeys commands. Respiratory: Airway is patent Respiratory effort is even, unlabored, Respiratory pattern is regular, symmetrical. 16:00 Reassessment: Patient appears in no apparent distress at this time. Patient and/or db family updated on plan of care and expected duration. Pain level reassessed. Patient is alert, oriented x 3, equal unlabored respirations, skin warm/dry/pink. Patient states feeling better. Patient states symptoms have improved. Vital Signs: 12:42 BP 151 / 89; Pulse 90; Resp 18; Temp 98; Pulse Ox 98% ; Weight 102.06 kg; Height 5 ft. ll1 8 in. ; Pain 8/10; 14:00 BP 151 / 79; Pulse 85; Resp 18; Pulse Ox 98% on R/A; db 16:00 BP 168 / 98; Pulse 86; Resp 16; Pulse Ox 95% on R/A; db 12:42 Body Mass Index 34.21 (102.06 kg, 172.72 cm) ll1 12:42 Pain Scale: Adult ll1 ED Course: 12:36 Patient arrived in ED. al6 12:43 Triage completed. ll1 12:43 Arm band placed on. ll1 13:28 Stephanie Palmer, RN is Primary Nurse. db 13:32 Geovanny Petty MD is Attending Physician. bo1 14:30 Warm blanket given. Verbal reassurance given. am7 14:31 EKG done, by ED staff, reviewed by Geovanny Petty MD. am7 14:44 XRAY Chest (1 view) In Process Unspecified. EDMS 14:[address] moved back from [address]. db 14:53 CT Head Brain wo Cont In Process Unspecified. EDMS 16:00 Patient has correct armband on for positive identification. Bed in low position. Call db light in reach. Side rails up X 1. Client placed on continuous cardiac and pulse oximetry monitoring. NIBP monitoring applied. equipment monitor phototypesetting on. Pulse ox on. NIBP on. 16:30 No provider procedures requiring assistance completed. IV discontinued, intact, db bleeding controlled, No redness/swelling at site. 16:33 Provided Education on: DISCHARGE AND FOLLOWUP. db Administered Medications: 15:44 CANCELLED (Not needed): [id number] mg PO once bo1 Medication: 16:00 VIS not applicable for this client. db Outcome: 16:01 Discharge ordered by . bo1 16:30 Discharged to home via wheelchair, db 16:30 Condition: stable 16:30 Discharge instructions given to patient, Instructed on discharge instructions, follow up and referral plans. 16:33 Patient left the ED. db Signatures: Dispatcher [employer] EDMS Gretta Contreras, RN RN ll1 Stephanie Palmer, RN RN db Geovanny Petty MD MD bo1 Davina Muñoz am7 Faye Sow al6 Corrections: (The following items were deleted from the chart) 12:46 12:42 Chief complaint: Patient states: Syncope episode today. Hit R side of head. ll1 Abrasion R eyebrow area. Just released Friday. ll1
[2024-04-03 16:38] VITALS: TEMP 98
[2024-04-03 16:40] VITALS: BP 168/98; O2SAT 95
--- NOTE | 2024-04-06 12:06 | EKG ---
Test Date: 2024-04-03 Test Time: 14:26:11 Digital Cartographic Technician: AM MEASUREMENT RESULTS: Intervals: Rate: 86 VT: 128 QRSD: 100 QT: 448 QTc: 536 [place]: P: 52 VT: 128 QRS: -55 T: 96 INTERPRETIVE STATEMENTS: Normal sinus rhythm Left anterior fascicular block T wave abnormality, consider anterior ischemia Prolonged QT Abnormal ECG Compared to ECG 03/20/2024 16:26:57 No significant changes Electronically Signed On 04-06-24 12:03:44 CLINICAL PRODUCT MANAGER by Maximiliano Lewis
== END 2024-04-03 16:33 | disposition home or self-care (01) ==
LOC: ER 12:32
DX: S09.90XA Unspecified injury of head, initial encounter (principal); W18.30XA Fall on same level, unspecified, initial encounter; E11.22 Type 2 diabetes mellitus with diabetic chronic kidney disease; I13.2 Hypertensive heart and chronic kidney disease with heart failure and with stage 5 chronic kidney disease, or end stage renal disease; I50.9 Heart failure, unspecified; N18.6 End stage renal disease; Z99.2 Dependence on renal dialysis; Z95.1 Presence of aortocoronary bypass graft
CPT/HCPCS: 36415; 70450; 71045; 80048; 84484; 85025; 85610; 93005; 99284

== ENCOUNTER 2024-05-26 04:02 | Emergency (ER) | payer BC, OTHER ==
[2024-05-26] MEDS ORDERED: AZITHROMYCIN 250 MG TAB ONE (06:07)
[2024-05-26] MEDS ORDERED: BENZONATATE 100 MG CAP PO ONE (06:08)
[2024-05-26] MEDS ORDERED: GUAIFENESIN/DM 5 ML UCUP ONE (06:10)
[2024-05-26 06:34] LABS: ALT/SGPT 22 U/L (16-61); Albumin 3.4 g/dL (3.4-5.0); Albumin/Globulin Ratio 0.9 (1.1-1.8); Alkaline Phosphatase 210 U/L (45-117); Anion Gap 12.1 mEq/L (5.0-15.0); BUN Blood Urea Nitrogen 45 mg/dL (7-18); Bicarbonate 28 mEq/L (21-32); Bilirubin Direct 0.3 mg/dL (0-0.2); Bilirubin Indirect, Calculated 0.5 mg/dL (0.2-0.8); Bilirubin Total 0.8 mg/dL (0.2-1.0); Globulin 3.9 g/dL (2.3-3.5); Glomerular Filtration Rate 9 ml/min (=/>90); Glucose Level 196 mg/dL (74-106); NT PRO-BNP 47931 pg/mL (<125); Potassium 5.1 mEq/L (3.5-5.1); Protein, Total 7.3 g/dL (6.4-8.2); Sodium Level 133 mEq/L (136-145); Troponin High Sensitivity 31.7 pg/mL (<58.9)
[2024-05-26 06:41] LABS: AST/SGOT < 10 U/L (15-37)
[2024-05-26 06:44] LABS: Absolute Basophils 0.1 K/uL (0-0.5); Absolute Eosinophils 0.4 K/uL (0-0.5); Absolute Lymphocytes (CBC) 1.3 K/uL (0.7-4.9); Absolute Monocytes 0.7 K/uL (0.1-1.3); Absolute Neutrophil 4.2 K/uL (1.8-8.0); Basophils % 1.9 % (0-1.3); Eosinophils % 5.8 % (0-4.4); Hematocrit 27.3 % (39.6-49.0); Hemoglobin 9.4 g/dL (13.6-17.9); Lymphocytes % 19.6 % (15.3-44.8); MCH 31.8 pg (27.0-35.0); MCHC 34.4 g/dL (32.0-36.0); MCV 92.4 fL (80-100); MPV 8.1 fL (7.6-11.3); Monocytes % 10.8 % (3.3-12.3); Neutrophils % 61.9 % (41.7-73.7); Platelets 149 thou/uL (152-406); RBC Red Blood Cell Count 2.95 M/uL (4.33-5.43); Red Cell Distribution Width 17.7 % (12.1-15.2)
--- NOTE | 2024-05-26 07:08 | RAD REPORT ---
EXAMINATION: CT CHEST WITHOUT CONTRAST CLINICAL INDICATION: Male, 49 years old. persistent cough TECHNIQUE: Routine CT scan of the chest without intravenous contrast. One or more of the following do se reduction techniques were used: Automated exposure control, adjustment of the mA and/or kV according to patient size, and/or iterative reconstruction. Unless otherwise specified, incidental fi ndings do not require dedicated imaging follow-up. [id number]. COMPARISON: 03/27/2024 FINDINGS: LOWER NECK: Visualized thyroid gland and soft tissues are normal. LUNGS AND AIRWAYS: .Atelectasis as a result of the pleural effusions. No suspicious pulmonary nodules are limited by motion. PLEURA: Small to moderate right and small left pleural effusion. This has increased in size from prio r MEDIASTINUM AND LYMPH NODES: No mediastinal mass or fluid collection. Normal size mediastinal, hilar, and axillary lymph nodes. Mild stranding in the anterior mediastinum likely from prior sternotomy. THORACIC AORTA: No thoracic aortic aneurysm. PULMONARY ARTERIES: [place] is within normal limits. HEART: Moderate cardiomegaly. Multivessel coronary artery diseaseNo significant pericardial effusion. OSSEOUS STRUCTURES AND CHEST WALL: Sternotomy. Mild dehiscence along the lower sternum measuring appr oximately 7 mm. This is not significantly changed. The lower sternotomy wire is fractured. This is also unchanged. UPPER ABDOMEN: No acute abnormalities. IMPRESSION: Enlarging [id number] right and small left pleural effusion with probable underlying atelectasi s. No evidence of pneumonia. Source of the effusions could be from heart failure.
--- NOTE | 2024-05-26 07:19 | RAD REPORT ---
EXAM: Chest Single View HISTORY: CHEST PAIN COMPARISON: 04/03/2024 FINDINGS: LUNGS/PLEURA: Prominence of the pulmonary interstitium likely reflecting edema. MEDIASTINUM: The mediastinal silhouette is within normal limits. CARDIAC: Cardiomegaly. UPPER ABDOMEN: No significant abnormality. BONES: No acute abnormality. Sternotomy. LINES/TUBES/OTHER: N/A IMPRESSION: Pulmonary edema. Bilateral pleural effusions better demonstrated on the subsequent CT.
--- NOTE | 2024-05-26 07:39 | EDPHYS ---
Physician Documentation [facility] Name: Chava Pate Age: 49 yrs Sex: Male : 1975 Arrival Date: 05/26/2024 Time: 04:02 Bed 7 Private MD: ED Physician Vince Acevedo HPI: 05/26 04:33 This 49 yrs old Male presents to ER via Unassigned with complaints of sp4 Non-Productive Cough, Breathing Difficulty. 06:57 49-year-old male with moderate to severe persistent cough. Patient has extensive past sp4 medical history of end-stage renal disease on hemodialysis, congestive heart failure, hypertension, IDDM, neuropathy, recent admission for syncopal episode 03/29/2024.0 patient's medications list include aspirin, furosemide 40 twice daily, insulin glargine 15 units subcu daily, losartan potassium 50 p.o. daily, sevelamer 3 times daily, fluconazole 150 daily, apixaban 2.5 mg p.o. twice daily, atorvastatin 40 mg bedtime metoprolol tartrate 50 mg twice daily, docusate 100 mg twice daily, gabapentin 300 mg daily, hydrocodone 5 as needed. Vitamin D p.o. daily. Historical: - Allergies: 05:02 Eliquis; lg3 - PMHx: 05:02 Congestive heart failure; ESRD; Hypertension; IDDM; Kidney failure- dialysis (Left arm lg3 fistula); neuropathy; - PSHx: 05:02 Left arm fistula; triple heart bypass; lg3 - Immunization history:: Adult Immunizations up to date. - Infectious Disease History:: Denies. - Social history:: Smoking status: Patient denies any tobacco usage or history of. Patient/guardian denies using alcohol, street drugs. - Family history:: not pertinent. ROS: 06:57 Constitutional: Negative for fever, chills, and weight loss, positive for intractable sp4 cough 06:57 All other systems are negative, Exam: 06:57 Constitutional: This is a well developed, well nourished patient who is awake, alert, sp4 and in no acute distress. Head/Face: Normocephalic, atraumatic. Eyes: Pupils equal round and reactive to light, extra-ocular motions intact. Lids and lashes normal. Conjunctiva and sclera are not injected. Cornea within normal limits. Periorbital areas with no swelling, redness, or edema. ENT: Nares patent. No nasal discharge, no septal abnormalities noted. Tympanic membranes are normal and external auditory canals are clear. Oropharynx with no redness, swelling, or masses, exudates, or evidence of obstruction, uvula midline. Mucous membranes moist. Neck: Trachea midline, no thyromegaly or masses palpated, and no cervical lymphadenopathy. Supple, full range of motion without nuchal rigidity, or vertebral point tenderness. Chest/axilla: Normal chest wall appearance and motion. Nontender with no deformity. No lesions are appreciated. Cardiovascular: Regular rate and rhythm with a normal S1 and S2. No gallops, murmurs, or rubs. Normal PMI, no JVD. No pulse deficits. Respiratory: Lungs have equal breath sounds bilaterally, clear to auscultation and percussion. No rales, rhonchi or wheezes noted. No increased work of breathing, no retractions or nasal flaring. Abdomen/GI: Soft, with normal bowel sounds. No distension or tympany. No guarding or rebound. No evidence of tenderness throughout. Back: No spinal tenderness. No costovertebral tenderness. Skin: Warm, dry with normal turgor. Normal color with no rashes, no lesions, and no evidence of cellulitis. MS/ Extremity: Pulses equal, no cyanosis. Neurovascular intact. Full, normal range of motion. Neuro: Awake and alert, GCS 15, oriented to person, place, time, and situation. Cranial nerves II-XII grossly intact. Motor strength 5/5 in all extremities. Sensory grossly intact. Psych: Awake, alert, with orientation to person, place and time. Behavior, mood, and affect are within normal limits 07:06 ECG was reviewed by the Attending Physician. EKG at 5 , normal sinus rhythm rate 84 sp4 VH, prolonged QT otherwise normal Vital Signs: 05:00 BP 161 / 81; Pulse 84; Resp 18 S; Temp 98.4(O); Pulse Ox 96% on R/A; Weight 104.33 kg lg3 (R); Height 5 ft. 8 in. (R); 06:21 BP 160 / 87; Pulse 79; Resp 18; Pulse Ox 95% on R/A; oe 06:44 BP 171 / 92; Pulse 81; Resp 16; Temp 98.4; Pulse Ox 98% ; Pain 6/10; bm8 07:20 BP 162 / 80; Pulse 79; Resp 16 S; Pulse Ox 98% on R/A; kc6 07:51 BP 166 / 81; Pulse 76; Resp 18; Pulse Ox 100% on R/A; ld1 05:00 Body Mass Index 34.97 (104.33 kg, 172.72 cm) lg3 06:44 Pain Scale: Adult bm8 Berta Coma Score: 06:44 Eye Response: spontaneous(4). Motor Response: obeys commands(6). Verbal Response: bm8 oriented(5). Total: 15. 06:57 Eye Response: spontaneous(4). Motor Response: obeys commands(6). Verbal Response: sp4 oriented(5). Total: 15. MDM: 04:50 Medical Screening Exam initiated sp4 06:57 Differential Diagnosis: Obstructed Airway Bronchitis Influenza Upper Respiratory sp4 Infection Sinusitis. Data reviewed: vital signs, nurses notes, old medical records, radiologic studies, CT scan. Consideration of Admission/Observation Escalation of care including admission/observation considered. Transition of care: After a detail discussion of the patient's case, care is transferred to Vince Acevedo MD. 07:06 ED course: Patient signed out to me by. Physician, in brief arrives today for 3 months ec2 of cough symptoms. Workup is remarkable for known renal dysfunction with creatinine of 7. CBC shows anemia at 9. BNP elevated at 47,000. Plans to follow-up imaging.. 07:37 ED course: CT imaging shows pleural effusion. Discussed with patient's known ESRD and ec2 CHF. Patient without any hypoxia or significant work of breathing. Patient to follow-up outpatient for his continued dialysis. Return precautions given.. 05/26 04:34 Order name: Influenza Screen (a \T\ B); Complete Time: 07:05 05/26 04:34 Order name: Basic Metabolic Panel; Complete Time: 07:05/26 04:34 Order name: CBC with Diff; Complete Time: 07:05 05/26 04:34 Order name: LFT's; Complete Time: 07:05 05/26 04:34 Order name: NT PRO-BNP; Complete Time: 07:05 05/26 04:34 Order name: Troponin HS; Complete Time: 07:05 sp4 05/26 04:34 Order name: XRAY Chest (1 view); Complete Time: 07:20 sp4 05/26 05:41 Order name: CT Chest Wo Con; Complete Time: 07:20 sp4 05/26 04:34 Order name: Cardiac monitoring; Complete Time: 06:26 sp4 05/26 04:34 Order name: EKG - Nurse/Tech; Complete Time: 05:05 sp4 05/26 04:34 Order name: IV Saline Lock; Complete Time: 06:02 sp4 05/26 04:34 Order name: Labs collected and sent; Complete Time: 06:02 sp4 05/26 04:34 Order name: O2 Per Protocol; Complete Time: 05:05 sp4 05/26 04:34 Order name: O2 Sat Monitoring; Complete Time: 05:05 sp4 EC:00 Rate is 84 beats/min. Rhythm is regular, Normal Sinus Rhythm. QRS [place] is Normal. [place] sp4 interval is normal. QRS interval is normal. QT interval is prolonged. No Q waves. T waves are Normal. No ST changes noted. Clinical impression: No evidence of ischemia. Interpreted by me. Reviewed by me. Administered Medications: 06:14 Drug: AZITHromycin PO 500 mg PO once Route: PO; lg3 06:48 Follow up: Response: No adverse reaction bm8 06:14 Drug: Dextromethorphan-Guaifenesin PO Liquid 10 mg-100 mg/5 mL 20 ml PO once Route: PO; lg3 06:48 Follow up: Response: No adverse reaction bm8 06:14 Drug: Tessalon Perle PO 200 mg PO once Route: PO; lg3 06:48 Follow up: Response: No adverse reaction bm8 Disposition Summary: 05/26/24 07:38 Discharge Ordered Notes: Location: Home ec2 Condition: Stable ec2 Diagnosis - Volume Overload ec2 Followup: ec2 - With: Private Physician - When: - Reason: Re-evaluation by your physician Discharge Instructions: - Discharge Summary Sheet ec2 - Heart Failure, Self-Care, [id number] ec2 Forms: - Medication Reconciliation Form ec2 - Antibiotic Education ec2 - Prescription Opioid Use ec2 - Patient Portal Instructions ec2 - Leadership Thank You Letter ec2 Signatures: Dispatcher [employer] Olga Renteria RN RN lg3 Bk Hassan MD MD sp4 Vince Acevedo MD MD ec2 Zac Benjamin RN bm8 Corrections: (The following items were deleted from the chart) 04:34 04:34 Influenza Screen (A \T\ B)+BA.LAB.BRZ ordered. EDMS EDMS 04:34 04:34 BASIC METABOLIC PANEL+C.LAB.BRZ ordered. EDMS EDMS 04:34 04:34 CBC+H.LAB.BRZ ordered. EDMS EDMS 04:34 04:34 HEPATIC FUNCTION+C.LAB.BRZ ordered. EDMS EDMS 04:34 04:34 PROBNP+C.LAB.BRZ ordered. EDMS EDMS 04:34 04:34 Troponin High Sensitivity+C.LAB.BRZ ordered. EDMS EDMS 04:34 04:34 Chest Single View+RAD.RAD.BRZ ordered. EDMS EDMS 05:42 05:42 Thorax Wo Con+CT.RAD.BRZ ordered. EDMS EDMS
--- NOTE | 2024-05-26 07:39 | ER ---
Nurse's Notes [facility] Name: Chava Pate Age: 49 yrs Sex: Male : 1975 Arrival Date: 05/26/2024 Time: 04:02 Bed 7 Private MD: Diagnosis: Volume Overload Presentation: 05/26 05:00 Chief complaint: Patient states: persistent dry cough X3 months with mild chest lg3 tightness. Coronavirus screen: Client denies travel out of the [place] in the last 14 days. Client presents with at least one sign or symptom that may indicate coronavirus-19. Standard/surgical mask placed on the client. Ebola Screen: No symptoms or risks identified at this time. Initial Sepsis Screen: Does the patient meet any 2 criteria? No. Patient's initial sepsis screen is negative. Does the patient have a suspected source of infection? No. Patient's initial sepsis screen is negative. Risk Assessment: Do you want to hurt yourself or someone else? Patient reports no desire to harm self or others. Onset of symptoms is unknown. 05:00 Method Of Arrival: Ambulatory lg3 05:00 Acuity: EDINSON 3 lg3 Triage Assessment: 05:02 General: Appears in no apparent distress. uncomfortable, Behavior is calm, cooperative. lg3 Pain: Denies pain. EENT: No deficits noted. No signs and/or symptoms were reported regarding the EENT system. Neuro: No deficits noted. [place] Agitation-Sedation Scale (RASS): 0 - Alert and Calm Level of Consciousness is awake, alert, obeys commands, Oriented to person, place, time, situation. Cardiovascular: No deficits noted. Reports shortness of breath, Denies chest pain, Capillary refill < 3 seconds Clubbing of nail beds is absent JVD is absent Patient's skin is warm and dry. Respiratory: Reports shortness of breath cough that is dry, persistent Airway is patent Respiratory effort is even, unlabored, Respiratory pattern is regular, symmetrical, Onset: The symptoms/episode began/occurred 3 months ago, the patient has mild shortness of breath. GI: No deficits noted. No signs and/or symptoms were reported involving the gastrointestinal system. Abdomen is round non-distended. : No signs and/or symptoms were reported regarding the genitourinary system. Derm: No deficits noted. No signs and/or symptoms reported regarding the dermatologic system. Skin is intact, is healthy with good turgor, Skin is dry, Skin is normal, Skin temperature is warm. Musculoskeletal: No deficits noted. No signs and/or symptoms reported regarding the musculoskeletal system. Circulation, motion, and sensation intact. Range of motion: intact in all extremities. Historical: - Allergies: 05:02 Eliquis; lg3 - PMHx: 05:02 Congestive heart failure; ESRD; Hypertension; IDDM; Kidney failure- dialysis (Left arm lg3 fistula); neuropathy; - PSHx: 05:02 Left arm fistula; triple heart bypass; lg3 - Immunization history:: Adult Immunizations up to date. - Infectious Disease History:: Denies. - Social history:: Smoking status: Patient denies any tobacco usage or history of. Patient/guardian denies using alcohol, street drugs. - Family history:: not pertinent. Screenin:03 [facility] ED Fall Risk Assessment (Adult) History of falling in the last 3 months, lg3 including since admission No falls in past 3 months (0 pts) Confusion or Disorientation No (0 pts) Intoxicated or Sedated No (0 pts) Impaired Gait No (0 pts) Mobility Assist Device Used No (0 pt) Altered Elimination No (0 pt) Score/Fall Risk Level 0 - 2 = Low Risk Oriented to surroundings, Maintained a safe environment, Educated pt \T\ family on fall prevention, incl call for assistance when getting out of bed, Assessed \T\ reinforced patient's understanding of fall precautions. Abuse screen: Denies threats or abuse. Denies injuries from another. Nutritional screening: No deficits noted. Tuberculosis screening: No symptoms or risk factors identified. Assessment: 05:03 General: see triage assessment. Cardiovascular: No deficits noted. Reports fatigue, lg3 shortness of breath, Capillary refill < 3 seconds Clubbing of nail beds is absent JVD is absent Patient's skin is warm and dry. Rhythm is sinus rhythm. Respiratory: Reports shortness of breath cough that is dry, persistent Airway is patent Respiratory effort is even, unlabored, Respiratory pattern is regular, symmetrical, Breath sounds are clear bilaterally. 06:14 Reassessment: Patient appears in no apparent distress at this time. No changes from lg3 previously documented assessment. Patient and/or family updated on plan of care and expected duration. Pain level reassessed. Patient is alert, oriented x 3, equal unlabored respirations, skin warm/dry/pink. 06:44 Reassessment: Patient appears in no apparent distress at this time. Patient and/or bm8 family updated on plan of care and expected duration. Pain level reassessed. Patient is alert, oriented x 3, equal unlabored respirations, skin warm/dry/pink. General: Appears in no apparent distress. comfortable, Behavior is calm, cooperative, appropriate for age. Pain: Complains of pain in chest Pain currently is 6 out of 10 on a pain scale. Neuro: Level of Consciousness is awake, alert, obeys commands, Oriented to person, place, time, situation, Appropriate for age. Respiratory: Reports cough that is dry, persistent since for three months pain with cough Breath sounds are clear bilaterally. GI: No signs and/or symptoms were reported involving the gastrointestinal system. : No signs and/or symptoms were reported regarding the genitourinary system. EENT: No signs and/or symptoms were reported regarding the EENT system. Derm: No signs and/or symptoms reported regarding the dermatologic system. Musculoskeletal: No signs and/or symptoms reported regarding the musculoskeletal system. 07:20 Reassessment: Patient appears in no apparent distress at this time. No changes from kc6 previously documented assessment. Patient and/or family updated on plan of care and expected duration. Pain level reassessed. Patient is alert, oriented x 3, equal unlabored respirations, skin warm/dry/pink. Vital Signs: 05:00 BP 161 / 81; Pulse 84; Resp 18 S; Temp 98.4(O); Pulse Ox 96% on R/A; Weight 104.33 kg lg3 (R); Height 5 ft. 8 in. (R); 06:21 BP 160 / 87; Pulse 79; Resp 18; Pulse Ox 95% on R/A; oe 06:44 BP 171 / 92; Pulse 81; Resp 16; Temp 98.4; Pulse Ox 98% ; Pain 6/10; bm8 07:20 BP 162 / 80; Pulse 79; Resp 16 S; Pulse Ox 98% on R/A; kc6 07:51 BP 166 / 81; Pulse 76; Resp 18; Pulse Ox 100% on R/A; ld1 05:00 Body Mass Index 34.97 (104.33 kg, 172.72 cm) lg3 06:44 Pain Scale: Adult bm8 [place] Coma Score: 06:44 Eye Response: spontaneous(4). Motor Response: obeys commands(6). Verbal Response: bm8 oriented(5). Total: 15. 06:57 Eye Response: spontaneous(4). Motor Response: obeys commands(6). Verbal Response: sp4 oriented(5). Total: 15. ED Course: 04:07 Patient arrived in ED. gm2 04:33 Bk Hassan MD is Attending Physician. sp4 05:02 Triage completed. lg3 05:02 Arm band placed on right wrist. lg3 05:03 Patient has correct armband on for positive identification. lg3 05:03 EKG done, by ED staff, reviewed by Bk Hassan MD. Patient maintains SpO2 lg3 saturation greater than 95% on room air. 05:04 XRAY Chest (1 view) In Process Unspecified. EDMS 05:53 Inserted saline lock: 22 gauge Blood collected. Flushed with 10 mL NS. oe 05:58 CT Chest Wo Con In Process Unspecified. EDMS 06:44 Zac Benjamin, RN is Primary Nurse. bm8 06:44 Client placed on continuous cardiac and pulse oximetry monitoring. NIBP monitoring bm8 applied. Pulse ox on. NIBP on. Door closed. Noise minimized. Warm blanket given. Pillow given. Verbal reassurance given. Head of bed elevated. 06:44 No provider procedures requiring assistance completed. bm8 07:00 Report received from MARCELA Frank. kc6 07:00 show host or hostess on. Pulse ox on. NIBP on. Door closed. Noise minimized. Lights dimmed. kc6 Warm blanket given. Pillow given. 07:03 Attending Physician role handed off by Bk Hassan MD ec2 07:03 Vince Acevedo MD is Attending Physician. ec2 07:52 IV discontinued, intact, bleeding controlled, No redness/swelling at site. ld1 Administered Medications: 06:14 Drug: AZITHromycin PO 500 mg PO once Route: PO; lg3 06:48 Follow up: Response: No adverse reaction bm8 06:14 Drug: Dextromethorphan-Guaifenesin PO Liquid 10 mg-100 mg/5 mL 20 ml PO once Route: PO; lg3 06:48 Follow up: Response: No adverse reaction bm8 06:14 Drug: Tessalon Perle PO 200 mg PO once Route: PO; lg3 06:48 Follow up: Response: No adverse reaction bm8 Medication: 06:44 VIS not applicable for this client. bm8 Outcome: 07:38 Discharge ordered by . ec2 07:52 Discharged to home ambulatory, ld1 07:52 Condition: stable 07:52 Discharge instructions given to patient, Instructed on discharge instructions, follow up and referral plans. Demonstrated understanding of instructions, follow-up care, 07:52 Patient left the ED. ld1 Signatures: Dispatcher [employer] EDMS Josué Varela Lacie, RN RN lg3 Carol Uribe RN RN ld1 Selina Ambriz RN RN kc6 Bk Hassan MD MD sp4 Vince Acevedo MD MD ec2 Missy Curiel 2 Zac Benjamin RN RN bm8
[2024-05-26 08:16] VITALS: TEMP 98.4
[2024-05-26 08:34] VITALS: BP 166/81; O2SAT 100
--- NOTE | 2024-05-26 11:27 | EKG ---
Test Date: 2024-05-26 Test Time: 05:00:22 Milk Vendor: GUSTAVO MEASUREMENT RESULTS: Intervals: Rate: 84 [place]: 138 QRSD: 96 QT: 420 QTc: 496 [place]: P: 69 [place]: 138 QRS: -52 T: 70 INTERPRETIVE STATEMENTS: Sinus rhythm with fusion complexes Left anterior fascicular block Minimal voltage criteria for LVH, may be normal variant Nonspecific ST abnormality Prolonged QT Abnormal ECG Compared to ECG 04/03/2024 14:26:11 Fusion complex(es) now present Left ventricular hypertrophy now present ST (T wave) deviation now present T-wave abnormality no longer present Possible ischemia no longer present Electronically Signed On 05-26-24 11:27:04 PST MANAGER by Maximiliano Lewis
== END 2024-05-26 07:52 | disposition home or self-care (01) ==
LOC: ER 04:02
DX: E87.70 Fluid overload, unspecified (principal); E11.22 Type 2 diabetes mellitus with diabetic chronic kidney disease; I13.2 Hypertensive heart and chronic kidney disease with heart failure and with stage 5 chronic kidney disease, or end stage renal disease; I50.9 Heart failure, unspecified; N18.6 End stage renal disease; Z99.2 Dependence on renal dialysis; Z95.1 Presence of aortocoronary bypass graft
CPT/HCPCS: 36415; 71045; 71250; 80048; 80076; 83880; 84484; 85025; 87804; 93005

== ENCOUNTER 2024-06-12 11:55 | Inpatient (IN) | payer BC, OTHER ==
[2024-06-12 12:38] LABS: Absolute Basophils 0.1 K/uL (0-0.5); Absolute Eosinophils 0.2 K/uL (0-0.5); Absolute Monocytes 1.2 K/uL (0.1-1.3); Absolute Neutrophil 6.7 K/uL (1.8-8.0); Eosinophils % 2.7 % (0-4.4); Hematocrit 28.8 % (39.6-49.0); Hemoglobin 9.8 g/dL (13.6-17.9); Lymphocytes % 10.4 % (15.3-44.8); MCH 31.4 pg (27.0-35.0); MCV 92.6 fL (80-100); MPV 7.5 fL (7.6-11.3); Monocytes % 12.8 % (3.3-12.3); Neutrophils % 73.1 % (41.7-73.7); Platelets 164 thou/uL (152-406); RBC Red Blood Cell Count 3.11 M/uL (4.33-5.43); Red Cell Distribution Width 16.6 % (12.1-15.2)
[2024-06-12 12:44] LABS: PT Prothrombin Time 14.7 SECONDS (10.0-13.0); Protime INR 1.31
[2024-06-12 13:01] LABS: Influenza A Ag Negative; Influenza B Ag Negative; SARS-CoV-2 Antigen Rapid Res Negative (Negative)
[2024-06-12 13:14] LABS: ALT/SGPT 17 U/L (16-61); Albumin 3.6 g/dL (3.4-5.0); Albumin/Globulin Ratio 0.9 (1.1-1.8); Alkaline Phosphatase 127 U/L (45-117); Anion Gap 5.9 mEq/L (5.0-15.0); BUN Blood Urea Nitrogen 20 mg/dL (7-18); Bicarbonate 36 mEq/L (21-32); Bilirubin Direct 0.4 mg/dL (0-0.2); Bilirubin Indirect, Calculated 0.5 mg/dL (0.2-0.8); Bilirubin Total 0.9 mg/dL (0.2-1.0); Globulin 4.2 g/dL (2.3-3.5); Glomerular Filtration Rate 16 ml/min (=/>90); Glucose Level 106 mg/dL (74-106); Lipase 23 U/L (13-75); Magnesium 1.9 mg/dL (1.6-2.4); NT PRO-BNP 56425 pg/mL (<125); Potassium 3.9 mEq/L (3.5-5.1); Protein, Total 7.8 g/dL (6.4-8.2); Sodium Level 132 mEq/L (136-145); Troponin High Sensitivity 44.3 pg/mL (<58.9)
[2024-06-12 13:32] LABS: AST/SGOT < 10 U/L (15-37)
--- NOTE | 2024-06-12 13:33 | RAD REPORT ---
EXAMINATION: ONE VIEW CHEST XR CLINICAL INDICATION: Male, 49 years old.,COUGH TECHNIQUE: Frontal chest projection is submitted. Examination is limited by patient positioning and t echnique. COMPARISON: 05/26/2024 FINDINGS: The lungs are well inflated and clear. No pneumothorax or sizable effusion. The heart is moderately enlarged in size. Mediastinal contours are unchanged. IMPRESSION: No acute intrathoracic abnormalities. Stable cardiomegaly.
--- NOTE | 2024-06-12 13:52 | RAD REPORT ---
EXAMINATION: CT Thorax Wo Con CLINICAL INDICATION: Male, 49 years old. [facility] DYSPNEA Bed Name: 8 Y TECHNIQUE: Axial CT scan of the chest without intravenous contrast. Multiplanar reformats were genera brad and reviewed. One or more of the following dose reduction techniques were used: Automated exposure control, adjustment of the mA and/or kV according patient size, and/or iterative reconstruct ion. Unless otherwise specified, incidental findings do not require dedicated imaging follow-up. COMPARISON: 05/26/2024 CT chest. 06/12/2024 chest radiograph. FINDINGS: LOWER NECK: Visualized thyroid gland and soft tissues are normal. LUNGS: Progressive opacification involving most of the left lower lobe sparing the apex, with some ai r bronchograms. Associated volume loss.. No worrisome nodules. PLEURA: Moderate right and small left pleural effusion, stable. No pneumothorax. . MEDIASTINUM AND LYMPH NODES: Stable up to moderate cardiomegaly. No mediastinal mass or fluid collect ion. Normal size mediastinal, hilar, and axillary lymph nodes. OSSEOUS STRUCTURES AND CHEST WALL: Healing posterior left first rib and anterolateral left sixth rib fractures, stable. UPPER ABDOMEN: No significant abnormalities. IMPRESSION: Stable bilateral pleural effusions larger on the right, with progressive opacification and volume los s in the left lower lobe, could reflect atelectasis or developing airspace disease. Healing left first and sixth rib fractures again seen.
--- NOTE | 2024-06-12 14:28 | EDPHYS ---
Physician Documentation [facility] Name: Chava Pate Age: 49 yrs Sex: Male : 1975 Arrival Date: 06/12/2024 Time: 11:55 Bed 7 Private MD: RUPINDER Physician Elijah Ruiz HPI: 06/12 14:16 This 49 yrs old Male presents to ER via Ambulatory with complaints of Low O2 dennis levels. 14:16 The patient has shortness of breath at rest, with light activity. Onset: The dennis symptoms/episode began/occurred just prior to arrival. Duration: The symptoms are continuous, but are markedly better than the original presentation. The patient's shortness of breath is aggravated by coughing, is alleviated by application of supplemental oxygen. The patient or guardian reports cough, difficulty breathing. Modifying factors: The symptoms are alleviated by elevating head, remaining still, the symptoms are aggravated by activity, lying flat. Associated signs and symptoms: Pertinent positives: non-productive cough, dizziness. Historical: - PMHx: 12:07 Kidney failure- dialysis (Left arm fistula); IDDM; ESRD; Congestive heart failure; hb Hypertension; neuropathy; - PSHx: 12:07 Left arm fistula; triple heart bypass; hb - Immunization history:: Client reports receiving the 2nd dose of the Covid vaccine, Flu vaccine is up to date. - Infectious Disease History:: Denies. - Social history:: Smoking status: Patient denies any tobacco usage or history of. - Family history:: not pertinent. ROS: 14:16 Constitutional: Negative for fever, chills, and weight loss, Eyes: Negative for injury, dennis pain, redness, and discharge, ENT: Negative for injury, pain, and discharge, Neck: Negative for injury, pain, and swelling, Cardiovascular: Negative for chest pain, palpitations, and edema, Abdomen/GI: Negative for abdominal pain, nausea, vomiting, diarrhea, and constipation, Back: Negative for injury and pain, : Negative for injury, bleeding, discharge, and swelling, MS/Extremity: Negative for injury and deformity, Skin: Negative for injury, rash, and discoloration, Neuro: Negative for headache, weakness, numbness, tingling, and seizure, Psych: Negative for depression, anxiety, suicide ideation, homicidal ideation, and hallucinations, Allergy/Immunology: Negative for hives, rash, and allergies, Endocrine: Negative for neck swelling, polydipsia, polyuria, polyphagia, and marked weight changes, Hematologic/Lymphatic: Negative for swollen nodes, abnormal bleeding, and unusual bruising, 14:16 Respiratory: Positive for cough, shortness of breath, Exam: 14:16 Constitutional: This is a well developed, well nourished patient who is awake, alert, dennis and in no acute distress. Head/Face: Normocephalic, atraumatic. Eyes: Pupils equal round and reactive to light, extra-ocular motions intact. Lids and lashes normal. Conjunctiva and sclera are non-icteric and not injected. Cornea within normal limits. Periorbital areas with no swelling, redness, or edema. ENT: Nares patent. No nasal discharge, no septal abnormalities noted. Tympanic membranes are normal and external auditory canals are clear. Oropharynx with no redness, swelling, or masses, exudates, or evidence of obstruction, uvula midline. Mucous membranes moist. Neck: Trachea midline, no thyromegaly or masses palpated, and no cervical lymphadenopathy. Supple, full range of motion without nuchal rigidity, or vertebral point tenderness. No Meningismus. Chest/axilla: Normal chest wall appearance and motion. Nontender with no deformity. No lesions are appreciated. Cardiovascular: Regular rate and rhythm with a normal S1 and S2. No gallops, murmurs, or rubs. Normal PMI, no JVD. No pulse deficits. Abdomen/GI: Soft, non-tender, with normal bowel sounds. No distension or tympany. No guarding or rebound. No evidence of tenderness throughout. Back: No spinal tenderness. No costovertebral tenderness. Full range of motion. Male : Normal genitalia with no discharge or lesions. Skin: Warm, dry with normal turgor. Normal color with no rashes, no lesions, and no evidence of cellulitis. MS/ Extremity: Pulses equal, no cyanosis. Neurovascular intact. Full, normal range of motion., bilateral aka Neuro: Awake and alert, GCS 15, oriented to person, place, time, and situation. Cranial nerves II-XII grossly intact. Motor strength 5/5 in all extremities. Sensory grossly intact. Cerebellar exam normal. Normal gait. Psych: Awake, alert, with orientation to person, place and time. Behavior, mood, and affect are within normal limits. 14:16 ECG was reviewed by the Attending Physician. 14:16 Respiratory: the patient does not display signs of respiratory distress, Respirations: normal, no acute changes, Breath sounds: decreased breath sounds, that are mild, are located in both bases, Respiratory rate: 18 Vital Signs: 12:00 Pulse Ox 82% on R/A; ap3 12:18 BP 151 / 96; Pulse 99; Resp 19; Temp 98.4(TE); Pulse Ox 99% on 2 lpm NC; Weight 102.06 ap3 kg; Height 5 ft. 8 in. ; 13:10 BP 165 / 87; Pulse 94; Resp 18; Pulse Ox 95% on R/A; ld1 13:30 BP 155 / 73; Pulse 95; Resp 18; Pulse Ox 96% on 2 lpm NC; ld1 14:00 BP 161 / 69; Pulse 96; Resp 18; Pulse Ox 97% on 2 lpm NC; ld1 15:00 BP 171 / 89; Pulse 95; Resp 18; Pulse Ox 97% on 2 lpm NC; ld1 12:18 Body Mass Index 34.21 (102.06 kg, 172.72 cm) ap3 MDM: 12:01 Medical Screening Exam initiated 06/12 12:03 Order name: Basic Metabolic Panel; Complete Time: 13:54 [facility] 06/12 12:03 Order name: CBC with Diff; Complete Time: 13:54 [facility] 06/12 12:03 Order name: LFT's; Complete Time: 13:54 [facility] 06/12 12:03 Order name: Magnesium; Complete Time: 13:54 [facility] 06/12 12:03 Order name: NT PRO-BNP; Complete Time: 13:54 [facility] 06/12 12:03 Order name: PT-INR; Complete Time: 13:54 [facility] 06/12 12:03 Order name: Troponin HS; Complete Time: 13:54 [facility] 06/12 12:03 Order name: Blood Culture Adult (2) [facility] 06/12 12:03 Order name: Urinalysis w/ reflexes [facility] 06/12 12:04 Order name: Lipase; Complete Time: 13:54 [facility] 06/12 12:32 Order name: SARS RAPID ld1 06/12 12:45 Order name: COVID-19 Ag + Flu A+B Ag; Complete Time: 13:54 EDMS 06/12 13:55 Order name: ABG dennis 06/12 15:17 Order name: Basic Metabolic Panel EDMS 06/12 15:17 Order name: Basic Metabolic Panel EDMS 06/12 15:17 Order name: Basic Metabolic Panel EDMS 06/12 15:17 Order name: Basic Metabolic Panel EDMS 06/12 15:17 Order name: CBC with Automated Diff EDMS 06/12 15:17 Order name: CBC with Automated Diff EDMS 06/12 15:17 Order name: CBC with Automated Diff EDMS 06/12 15:17 Order name: CBC with Automated Diff EDMS 06/12 15:17 Order name: Magnesium EDMS 06/12 15:17 Order name: Magnesium EDMS 06/12 15:17 Order name: Magnesium EDMS 06/12 15:17 Order name: Magnesium EDMS 06/12 15:17 Order name: Phosphorus EDMS 06/12 15:17 Order name: Phosphorus EDMS 06/12 15:17 Order name: Phosphorus EDMS 06/12 15:17 Order name: Phosphorus EDMS 06/12 15:17 Order name: Troponin High Sensitivity EDMS 06/12 15:17 Order name: Troponin High Sensitivity EDMS 06/12 15:17 Order name: Troponin High Sensitivity EDMS 06/12 12:03 Order name: XRAY Chest (1 view); Complete Time: 13:54 [facility] 06/12 12:26 Order name: CT Chest Wo Con; Complete Time: 13:54 [facility] 06/12 15:31 Order name: US Extremity Venous W Compression Clement [facility] 06/12 17:28 Order name: CT EDMS 06/12 17:29 Order name: US EDMS 06/12 15:17 Order name: CONS Physician Consult [facility] 06/12 12:03 Order name: Cardiac monitoring; Complete Time: 12:30 [facility] 06/12 12:03 Order name: EKG - Nurse/Tech; Complete Time: 12:30 [facility] 06/12 12:03 Order name: IV Saline Lock; Complete Time: 12:30 [facility] 06/12 12:03 Order name: Labs collected and sent; Complete Time: 12:30 [facility] 06/12 12:03 Order name: O2 Per Protocol; Complete Time: 12:10 [facility] 06/12 12:03 Order name: O2 Sat Monitoring; Complete Time: 12:10 [facility] EC:16 Rate is 98 beats/min. QRS [place] is Normal. VA interval is normal. QRS interval is dennis normal. QT interval is normal. No Q waves. T waves are Normal. No ST changes noted. Clinical impression: LVH and No evidence of ischemia. Interpreted by me. Reviewed by me. Administered Medications: No medications were administered Disposition Summary: 06/12/24 14:28 Hospitalization Ordered Notes: Hospitalization Status: Inpatient Admission dennis Provider: Autumn Alaniz cha Location: Telemetry/MedSurg (Inpatient) dennis Condition: Fair dennis Problem: new dennis Symptoms: have improved dennis Bed/Room Type: Standard dennis Room Assignment: 223(06/12/24 17:05) sp Diagnosis - Dyspnea dennis - Dependence on renal dialysis dennis - Hypoxemia dennis - Pleural effusion in other conditions classified elsewhere - BILATERAL RIGHTER dennis GREATER THAN LEFT Forms: - Medication Reconciliation Form dennis - SBAR form dennis - Leadership Thank You Letter dennis Signatures: Dispatcher [employer] EDMS Elijah Ruiz MD MD cha Pinkerton, Shawna sp Baxter, Heather, RN RN Radha Velásquez RN RN ap3 Corrections: (The following items were deleted from the chart) 12:04 12:04 BASIC METABOLIC PANEL+C.LAB.BRZ ordered. EDPA EDPA 12: 12:04 CBC+H.LAB.BRZ ordered. EDPA EDPA 12:04 12:04 HEPATIC FUNCTION+C.LAB.BRZ ordered. EDPA EDPA 12:04 12:04 MAGNESIUM+C.LAB.BRZ ordered. EDPA EDPA 12:04 12:04 PROBNP+C.LAB.BRZ ordered. EDPA EDPA 12:04 12:04 PROTIME (+INR)+COAG.LAB.BRZ ordered. EDPA EDPA 12:04 12:04 Troponin High Sensitivity+C.LAB.BRZ ordered. EDPA EDPA 12:04 12:04 BLOOD CULTURE*+BA.LAB.BRZ ordered. EDPA EDPA 12:04 12:04 SARS-COV-2 Antigen Rapid+I.LAB.BRZ ordered. EDPA EDPA 12:04 12:04 Urinalysis+U.LAB.BRZ ordered. EDPA EDPA 12:04 12:04 Chest Single View+RAD.RAD.BRZ ordered. EDPA EDPA 12:05 12:05 LIPASE+C.LAB.BRZ ordered. EDMS EDMS 12:45 12:04 Influenza Screen (A \T\ B)+BA.LAB.BRZ ordered. EDMS EDMS 17:05 14:28 dennis sp
--- NOTE | 2024-06-12 14:28 | ER ---
Nurse's Notes [facility] Name: Chava Pate Age: 49 yrs Sex: Male : 1975 Arrival Date: 06/12/2024 Time: 11:55 Bed 7 Private MD: Diagnosis: Dyspnea;Dependence on renal dialysis;Hypoxemia;Pleural effusion in other conditions classified elsewhere-BILATERAL RIGHTER GREATER THAN LEFT Presentation: 06/12 12:18 Chief complaint: Patient states: he was at dialysis and was requiring oxygen due to low ap3 oxygen levels. patient reports a cough that he has had for 2 months, and that he is having increased feelings of shortness of breath. Coronavirus screen: Client presents with at least one sign or symptom that may indicate coronavirus-19. Ebola Screen: No symptoms or risks identified at this time. Initial Sepsis Screen: Does the patient meet any 2 criteria? HR > 90 bpm. Does the patient have a suspected source of infection? No. Patient's initial sepsis screen is negative. Risk Assessment: Do you want to hurt yourself or someone else? Patient reports no desire to harm self or others. Onset of symptoms is unknown. 12:18 Method Of Arrival: Ambulatory ap3 12:18 Acuity: EDINSON 2 ap3 Triage Assessment: 12:18 General: Appears comfortable, Behavior is calm, cooperative. Pain: Denies pain. Neuro: ap3 Level of Consciousness is awake, alert, obeys commands, Oriented to person, place, time, situation. Cardiovascular: Patient's skin is warm and dry. Dialysis shunt: in the dorsal aspect of left forearm. Respiratory: Reports shortness of breath cough that is Airway is patent Respiratory effort is even, unlabored. Historical: - PMHx: 12:07 Kidney failure- dialysis (Left arm fistula); IDDM; ESRD; Congestive heart failure; hb Hypertension; neuropathy; - PSHx: 12:07 Left arm fistula; triple heart bypass; hb - Immunization history:: Client reports receiving the 2nd dose of the Covid vaccine, Flu vaccine is up to date. - Infectious Disease History:: Denies. - Social history:: Smoking status: Patient denies any tobacco usage or history of. - Family history:: not pertinent. Screenin:21 Abuse screen: Denies threats or abuse. Nutritional screening: No deficits noted. ap3 Tuberculosis screening: No symptoms or risk factors identified. 13:11 [facility] ED Fall Risk Assessment (Adult) History of falling in the last 3 months, ld1 including since admission No falls in past 3 months (0 pts) Confusion or Disorientation No (0 pts) Intoxicated or Sedated No (0 pts) Impaired Gait No (0 pts) Mobility Assist Device Used No (0 pt) Altered Elimination No (0 pt) Score/Fall Risk Level 0 - 2 = Low Risk Oriented to surroundings, Hourly rounding (assess needs \T\ fall precautionary measures) done. Assessment: 13:11 General: Appears in no apparent distress. comfortable, Behavior is calm, cooperative, ld1 appropriate for age. Pain: Denies pain. Neuro: Level of Consciousness is awake, alert, obeys commands, Oriented to person, place, time, situation. Cardiovascular: Capillary refill < 3 seconds Patient's skin is warm and dry. Respiratory: Airway is patent Respiratory effort is even, labored. GI: Abdomen is flat, non-distended. : No signs and/or symptoms were reported regarding the genitourinary system. EENT: No signs and/or symptoms were reported regarding the EENT system. Derm: No signs and/or symptoms reported regarding the dermatologic system. Musculoskeletal: No signs and/or symptoms reported regarding the musculoskeletal system. Vital Signs: 12:00 Pulse Ox 82% on R/A; ap3 12:18 BP 151 / 96; Pulse 99; Resp 19; Temp 98.4(TE); Pulse Ox 99% on 2 lpm NC; Weight 102.06 ap3 kg; Height 5 ft. 8 in. ; 13:10 BP 165 / 87; Pulse 94; Resp 18; Pulse Ox 95% on R/A; ld1 13:30 BP 155 / 73; Pulse 95; Resp 18; Pulse Ox 96% on 2 lpm NC; ld1 14:00 BP 161 / 69; Pulse 96; Resp 18; Pulse Ox 97% on 2 lpm NC; ld1 15:00 BP 171 / 89; Pulse 95; Resp 18; Pulse Ox 97% on 2 lpm NC; ld1 12:18 Body Mass Index 34.21 (102.06 kg, 172.72 cm) ap3 ED Course: 11:58 Patient arrived in ED. cj3 12:01 Elijah Ruiz MD is Attending Physician. dennis 12:20 Triage completed. ap3 12:21 Patient has correct armband on for positive identification. Bed in low position. Call ap3 light in reach. Side rails up X 1. Client placed on continuous cardiac and pulse oximetry monitoring. NIBP monitoring applied. residential monitor on. Pulse ox on. NIBP on. Door closed. Noise minimized. Warm blanket given. Pillow given. 12:22 Arm band placed on right wrist. ap3 12:30 Carol Uribe, RN is Primary Nurse. ld1 12:30 Blood Culture Adult (2) Sent. ld1 12:31 Inserted saline lock: 20 gauge in right antecubital area, using aseptic technique. ld1 Blood collected. Flushed with 10 mL NS. 12:53 CT Chest Wo Con In Process Unspecified. EDMS 13:11 No provider procedures requiring assistance completed. ld1 13:20 XRAY Chest (1 view) In Process Unspecified. EDMS 14:26 Autumn Alaniz MD is Hospitalizing Provider. dennis 18:22 Patient admitted, IV remains in place. iw Administered Medications: No medications were administered Medication: 13:11 VIS not applicable for this client. ld1 Outcome: 14:28 Decision to Hospitalize by Provider. dennis 18:21 Admitted to Med/surg accompanied by tech, Report called to Shante iw 18:21 Condition: good 18:21 Discharge instructions given to patient, Instructed on the need for admit, Demonstrated understanding of instructions, 18:23 Patient left the ED. iw Signatures: Dispatcher [employer] EDElijah Reza MD MD cha Williams, Irene, RN RN Mayela Bustamante RN RN Radha Velásquez RN RN [facility] Carol Uribe, Ramona Eddy RN 3
--- NOTE | 2024-06-12 15:24 | P.HP ---
Certification for Inpatient Patient admitted to: Observation With expected LOS: <2 Midnights <Fara Contreras - Last Filed: 06/12/24 18:14> Patient History Date of Service: 06/12/24 <Lizzie Guerrero - Last Filed: 06/12/24 17:24> Date of Service: 06/12/24 Reason for admission: Acute hypoxic respiratory failure 2/2 adarsh pleural effusion History of Present Illness: Chava Pate is a 49 year old male with Pmhx ESRD on dialysis, DM-IDDM, CAD s/p 3 vessel CABG, Congestive heart failure, Hypertension, neuropathy, who presents to the ED after dialysis where his oxygen dropped to 83% requiring supplemental oxygen. He denies lung problems or ever needing oxygen in the past. Laboratory evaluation significant for H&H 01/16, sodium 132, BUN/creatinine 2 0/4.35, GFR 16, BNP 56,425, ABG: ph 7.50, Pco2 43.6, PO2 71.2, HCO3 33.6 CT chest reports "Stable bilateral pleural effusions larger on the right, with progressive opacification and volume loss in the left lower lobe, could reflect atelectasis or developing airspace disease." Chest xray reports "The lungs are well inflated and clear. No pneumothorax or sizable effusion. The heart is moderately enlarged in size. Mediastinal contours are unchanged" CTA chest reports "Bilateral pleural effusions, larger on the right, stable. No pneumothorax. No evidence of acute central pulmonary emboli." Bilateral venous ultrasound reports "There is no deep vein or superficial vein thrombosis." Chava will be admitted to hospitalist service for further treatment of bilateral pleural effusion - Past Medical/Surgical History Diabetic: Yes -: DM II with Polyneuropathy -: HLD -: HTN -: ESRD/ CKD with Proteinura (Dr. Rojas/ [facility]) on HD T, , Sat -: Pulmonary HTN -: Left arm Fistula -: 3V CABG 01/12 Psychosocial/ Personal History: Patient lives at home alone. - Family History Father -: Diabetes Mother -: Stroke Notes: DM,HTN, ESRD, CABD with stents - Social History Alcohol use: No CD- Drugs: No Caffeine use: Yes <Fara Contreras - Last Filed: 06/12/24 18:14> Allergies No Known Allergies Allergy (Verified 06/19/23 12:41) Home Medications: Aspirin 81 mg PO DAILY 03/19/24 Furosemide [Lasix*] 40 mg PO BID 03/19/24 Insulin Glargine,Hum.rec.anlog [Toujeo Max Solostar] 15 units SQ DAILY 03/19/24 Losartan Potassium [Cozaar] 50 mg PO DAILY 03/19/24 Sevelamer Carbonate [Renvela*] 800 mg PO TIDWM 03/19/24 Fluconazole 150 mg PO DAILY 03/20/24 Apixaban [Eliquis *] 2.5 mg PO BID 30 Days #60 tab 03/21/24 Atorvastatin Calcium [Lipitor] 40 mg PO BEDTIME tab 03/21/24 Metoprolol Tartrate [Lopressor*] 50 mg PO BID 30 Days #60 tab 03/21/24 Docusate [Colace Cap*] 100 mg PO BID cap 03/30/24 Gabapentin [Neurontin*] 300 mg PO DAILY 30 Days #30 cap 03/30/24 Hydrocodone 5/APAP 325 [[place] 5/325*] 1 tab PO Q4H PRN tab 03/30/24 Metoprolol Tartrate [Lopressor*] 50 mg PO BID tab 03/30/24 Vitamin D [Drisdol*] 50,000 unit PO DAILY cap 03/30/24 Review of Systems Other: Per HPI <Fara Contreras - Last Filed: 06/12/24 18:14> Physical Examination - Studies Laboratory Data (last 24 hrs) 06/12/24 06/12/24 06/12/24 12:27 12:27 12:27 WBC 9.20 Hgb 9.8 L Hct 28.8 L Plt Count 164 PT 14.7 H INR 1.31 Sodium 132 L Potassium 3.9 BUN 20 H Creatinine 4.35 H Glucose 106 Magnesium 1.9 Total Bilirubin 0.9 AST < 10 L ALT 17 Alkaline Phosphatase 127 H Lipase 23 <Lizzie Guerrero - Last Filed: 06/12/24 17:24> - Physical Exam General: Alert, In no apparent distress, Oriented x3 HEENT: Atraumatic, Normocephalic Neck: Supple, 2+ carotid pulse no bruit, JVD not distended Respiratory: Clear to auscultation bilaterally, Normal air movement Cardiovascular: No edema, Regular rate/rhythm Capillary refill: <2 Seconds Gastrointestinal: Normal bowel sounds, Soft and benign Musculoskeletal: No clubbing, Swelling Integumentary: No rashes Neurological: Normal speech, Normal tone - Studies Laboratory Data (last 24 hrs) 06/12/24 06/12/24 06/12/24 12:27 12:27 12:27 WBC 9.20 Hgb 9.8 L Hct 28.8 L Plt Count 164 PT 14.7 H INR 1.31 Sodium 132 L Potassium 3.9 BUN 20 H Creatinine 4.35 H Glucose 106 Magnesium 1.9 Total Bilirubin 0.9 AST < 10 L ALT 17 Alkaline Phosphatase 127 H Lipase 23 <Fara Contreras - Last Filed: 06/12/24 18:14> Assessment and Plan Physician Review Additional Text: I have personally seen and evaluated the patient. I have reviewed the history, physical exam findings, and assessment provided by Ghada Contreras NP. Care with the plan of care as documented. <Lizzie Guerrero - Last Filed: 06/12/24 17:24> - Plan Assessment and Plan Acute hypoxic respiratory failure 2/ bilateral pleural effusion -oxygen protocol ordered -on 2 LNC -PE protocol, Dr. Reeves agreed -Fluid volume will be managed with dialysis ESRD on dialysis Metabolic alkalosis -Ph 7.50, Pco2 43.6, PO2 71.2, HCO3 33.6 -last dialysis 06/12, prior to admission -reports, he does not make urine -Will require dialysis after todays CTA chest exam, Dr. Reeves aware DM-IDDM -accucheck with SSI -A1C in the AM CAD s/p 3 vessel CABG Congestive heart failure Hypertension neuropathy -Continue home medications -continuous telemetry DVT ppx heparin Full code LOS 24 hour OBS Discharge Plan: Home Plan to discharge in: 24 Hours - Advance Directives Does patient have a Living Will: No Does patient have a Durable POA for Healthcare: No <Fara Contreras - Last Filed: 06/12/24 18:14>
[2024-06-12 15:30] LABS: Blood O2 Saturation 94.3 % (92-98.5)
[2024-06-12 15:31] LABS: Arterial Blood Carboxyhemoglob 1.8 % (0-1.5); Blood Gas Oxyhemoglobin 90.8 % (94-97); Blood Gas THB 9.7 g/dl (12-18)
[2024-06-12] MEDS: INSULIN REGULAR (HUMAN) 100 UNIT/ML SQ SCH (16:30)
[2024-06-12] MEDS: HEPARIN 5000 UNIT/ML 1 ML VIAL SQ SCH (17:00)
--- NOTE | 2024-06-12 17:28 | RAD REPORT ---
EXAM: CT Chest For Pe Angio TECHNIQUE: CT angiogram of the chest was performed following intravenous contrast administration, inc luding sagittal and coronal as well as maximum intensity projection reformats. One or more of the following dose reduction techniques were used: Automated exposure control, adjustment of the mA and k V according to patient size, and iterative reconstruction. Unless otherwise specified, incidental findings do not require dedicated imaging follow-up. INDICATION: Hypoxic COMPARISON: Noncontrast CT chest of earlier the same day. FINDINGS: LINES/TUBES: None. PULMONARY ARTERIES: Main pulmonary arteries are normal in caliber. No filling defects within the pul monary arteries to suggest pulmonary embolus. LUNGS AND AIRWAYS: Dependent airspace opacities with volume loss most notably with segmental opacific ation of the dependent left lower lobe. Airways are patent. PLEURA: Bilateral pleural effusions, larger on the right, stable. No pneumothorax. HEART AND MEDIASTINUM: The visualized thyroid gland is normal. No mediastinal, hilar, or axillary lym phadenopathy. Heart is unremarkable. No pericardial effusion. SOFT TISSUES AND BONES: No acute osseous abnormality. Healing left first and sixth rib fractures agai n seen. No significant soft tissue finding. UPPER ABDOMEN: Unremarkable. IMPRESSION: No evidence of acute central pulmonary emboli. Stable findings including bilateral pleural effusions larger on the right and left more than right de pendent airspace opacities, could reflect atelectasis.
--- NOTE | 2024-06-12 17:29 | RAD REPORT ---
EXAMINATION: US Extrem Venous W Compress Clement CLINICAL INDICATION: [facility] MAIN PAIN Bed Name: 7 N TECHNIQUE: Complete bilateral duplex sonography of the bilateral lower extremity veins was performed . The examination included compression for vein patency, color Doppler imaging and flow augmentation in response to distal compression of the distal external iliac, common femoral, femoral, popliteal, tibial, and great and small saphenous veins. COMPARISON: No prior exam. FINDINGS: Duplex sonography testing of the veins of the BILATERAL lower extremity was performed. Color flow jony ging shows all veins to be compressible with [id number] color filling. Pulsatile and phasic flow is present within all lower extremity deep and superficial veins examined. IMPRESSION: There is no deep vein or superficial vein thrombosis.
[2024-06-12] MEDS: GUAIFENESIN 600 MG SA TAB PO SCH (21:24)
[2024-06-12] MEDS: METOPROLOL TAR 50 MG TAB PO SCH (21:24)
[2024-06-12] MEDS: GABAPENTIN 300 MG CAP PO SCH (21:24)
[2024-06-12] MEDS: FUROSEMIDE 40 MG TABLET PO SCH (21:25)
[2024-06-13 05:27] LABS: Absolute Basophils 0.1 K/uL (0-0.5); Absolute Eosinophils 0.3 K/uL (0-0.5); Absolute Lymphocytes (CBC) 0.9 K/uL (0.7-4.9); Absolute Neutrophil 4.7 K/uL (1.8-8.0); Basophils % 1.2 % (0-1.3); Eosinophils % 4.3 % (0-4.4); Hematocrit 26.9 % (39.6-49.0); Hemoglobin 9.4 g/dL (13.6-17.9); Lymphocytes % 13.1 % (15.3-44.8); MCH 32.5 pg (27.0-35.0); MCHC 34.9 g/dL (32.0-36.0); MCV 93.1 fL (80-100); MPV 7.8 fL (7.6-11.3); Monocytes % 14.7 % (3.3-12.3); Neutrophils % 66.7 % (41.7-73.7); Platelets 148 thou/uL (152-406); RBC Red Blood Cell Count 2.89 M/uL (4.33-5.43); Red Cell Distribution Width 16.9 % (12.1-15.2)
[2024-06-13 06:12] LABS: Anion Gap 10.5 mEq/L (5.0-15.0); Phosphorus 4.2 mg/dL (2.5-4.9); Potassium 4.5 mEq/L (3.5-5.1)
[2024-06-13] MEDS: LOSARTAN POTASSIUM 50 MG TABLET PO SCH (08:58)
[2024-06-13] MEDS: ASPIRIN 81 MG CHEWABLE TABLET PO SCH (08:59)
[2024-06-13] MEDS: TOUJEO INSULIN 300 UNIT/ML SQ SCH (09:00)
[2024-06-13] MEDS ORDERED: DRISDOL (VITAMIN D=ERGOCALCIFEROL) 50000 UNIT CAP PO SCH (09:00)
[2024-06-13] MEDS: BENZONATATE 100 MG CAP PO PRN (09:08)
[2024-06-13] MEDS: INSULIN GLARGINE 100 UNIT/ML SQ SCH (10:24)
--- NOTE | 2024-06-13 13:19 | P.PN ---
Subjective Date of Service: 06/13/24 Chief Complaint: Acute hypoxic respiratory failure 2/2 adarsh pleural effusion Continues to endorse cough. We discussed findings on chest x-ray and CT with pleural effusions. He has an appointment with Dr. Marco Fonseca later this week. Associated symptoms with cough include runny nose. He states he has a mild headache. He denies any fevers. He says that the Robitussin cough syrup helps a little bit. Review of Systems General: Unremarkable Eyes: Unremarkable ENT: Nose Congestion Respiratory: Cough Cardiovascular: Unremarkable Gastrointestinal: Unremarkable Genitourinary: Unremarkable Musculoskeletal: Unremarkable Integumentary: Unremarkable Neurological: Unremarkable Physical Examination - Vital Signs Temperature: 98.5 F Blood Pressure: 153/79 Pulse: 75 Respirations: 16 Pulse Ox (%): 97 - Physical Exam General: Alert, In no apparent distress HEENT: Atraumatic, Normocephalic Neck: Supple, 2+ carotid pulse no bruit Respiratory: Normal air movement, Diminished, Dull Cardiovascular: Normal pulses Capillary refill: <2 Seconds Gastrointestinal: Normal bowel sounds Musculoskeletal: No clubbing Integumentary: No rashes Neurological: Normal gait, Normal speech Lymphatics: No axilla or inguinal lymphadenopathy - Studies Laboratory Data (last 24 hrs) 06/12/24 12:27 Sodium 132 L Potassium 3.9 BUN 20 H Creatinine 4.35 H Glucose 106 Magnesium 1.9 Total Bilirubin 0.9 AST < 10 L ALT 17 Alkaline Phosphatase 127 H Lipase 23 Assessment And Plan - Plan Plan Assessment and Plan Acute hypoxic respiratory failure 2/2 bilateral pleural effusion -oxygen protocol ordered -on 2 LNC -CT PE without any evidence of blood clot Cough -Not improved -Related to losartan? -Using Tessalon Perles and Lasix -Will try guaifenesin / codeine cough syrup -Follow-up with Dr. Nunez with pulmonology -If cough persists may need to see ENT doctor -Can trial antihistamine ESRD on dialysis Metabolic alkalosis -Ph 7.50, Pco2 43.6, PO2 71.2, HCO3 33.6 -last dialysis 06/12, prior to admission -reports, he does not make urine -Dialysis per nephrology DM-IDDM -accucheck with SSI -A1C still pending CAD s/p 3 vessel CABG Congestive heart failure Hypertension neuropathy -Continue aspirin, metoprolol -continuous telemetry Hypertension -Continue losartan Hyponatremia improving DVT ppx heparin Full code LOS 24 hour OBS Discharge Plan: Home Plan to discharge in: 24 Hours - Advance Directives Does patient have a Living Will: No Does patient have a Durable POA for Healthcare: No
[2024-06-13] MEDS: GUAIFENESIN/CODEINE 5ML UCUP PO PRN (22:15)
[2024-06-13 22:42] LABS: Renal Epithelial <5 /HPF (None Seen); Specific Gravity 1.016 (1.005-1.030); Sqamous Epithelial <5 /HPF (None Seen); Urine Bacteria None Seen /HPF (<20); Urine Bilirubin NEGATIVE (Negative); Urine Blood Trace (Negative); Urine Clarity Clear (Clear); Urine Color Light-Yellow (Yellow); Urine Culture Reflex Order NOT NEEDED; Urine Glucose 3+ (Negative); Urine Ketones NEGATIVE (Negative); Urine Microscopic Reflex YN ORDER UMIC; Urine Mucus Slight /HPF (None Seen); Urine Nitrite NEGATIVE (Negative); Urine Protein 4+ (Over) (Negative); Urine RBC <5 /HPF (None Seen); Urine Urobilinogen Normal (Normal); Urine WBC <5 /HPF (<5)
[2024-06-14 05:35] VITALS: BMI 34.0
[2024-06-14 05:59] LABS: Absolute Basophils 0.1 K/uL (0-0.5); Absolute Eosinophils 0.6 K/uL (0-0.5); Absolute Lymphocytes (CBC) 1.2 K/uL (0.7-4.9); Absolute Monocytes 1.2 K/uL (0.1-1.3); Absolute Neutrophil 4.9 K/uL (1.8-8.0); Basophils % 1.3 % (0-1.3); Eosinophils % 7.4 % (0-4.4); Hematocrit 26.5 % (39.6-49.0); Lymphocytes % 14.7 % (15.3-44.8); MCH 31.9 pg (27.0-35.0); MCHC 34.2 g/dL (32.0-36.0); MCV 93.2 fL (80-100); MPV 7.4 fL (7.6-11.3); Monocytes % 15.6 % (3.3-12.3); Platelets 167 thou/uL (152-406); RBC Red Blood Cell Count 2.84 M/uL (4.33-5.43); Red Cell Distribution Width 16.5 % (12.1-15.2)
[2024-06-14 06:23] LABS: Anion Gap 9.9 mEq/L (5.0-15.0); Magnesium 2.2 mg/dL (1.6-2.4); Phosphorus 6.3 mg/dL (2.5-4.9); Potassium 4.9 mEq/L (3.5-5.1)
[2024-06-14] MEDS: ALBUTEROL 2.5 MG/3 ML NEB SOL NEB SCH (08:30)
[2024-06-14] MEDS: IPRATROPIUM BROM 0.5MG/2.5ML NEB SCH (08:30)
--- NOTE | 2024-06-14 09:13 | P.CNS ---
Date of Consult: 06/14/24 Reason for Consult: ESRD Requesting Physician: Lizzie Guerrero Chief Complaint: Acute hypoxic respiratory failure 2/2 adarsh pleural effusion History of Present Illness: Chava Pate is a 49 year old male with Pmhx ESRD on dialysis, DM-IDDM, CAD s/p 3 vessel CABG, Congestive heart failure, Hypertension, neuropathy, who presents to the ED after dialysis where his oxygen dropped to 83% requiring supplemental oxygen. He denies lung problems or ever needing oxygen in the past. Laboratory evaluation significant for H&H 01/16, sodium 132, BUN/creatinine 20/4.35, GFR 16, BNP 56,425, ABG: ph 7.50, Pco2 43.6, PO2 71.2, HCO3 33.6 CT chest reports "Stable bilateral pleural effusions larger on the right, with progressive opacification and volume loss in the left lower lobe, could reflect atelectasis or developing airspace disease." Chest xray reports "The lungs are well inflated and clear. No pneumothorax or sizable effusion. The heart is moderately enlarged in size. Mediastinal contours are unchanged" CTA chest reports "Bilateral pleural effusions, larger on the right, stable. No pneumothorax. No evidence of acute central pulmonary emboli." Bilateral venous ultrasound reports "There is no deep vein or superficial vein thrombosis." Chava will be admitted to hospitalist service for further treatment of bilateral pleural effusion [id number] 14:16 This 49 yrs old Male presents to ER via Ambulatory with complaints of Low O2 dennis levels. 14:16 The patient has shortness of breath at rest, with light activity. Onset: The dennis symptoms/episode began/occurred just prior to arrival. Duration: The symptoms are continuous, but are markedly better than the original presentation. The patient's shortness of breath is aggravated by coughing, is alleviated by application of supplemental oxygen. The patient or guardian reports cough, difficulty breathing. Modifying factors: The symptoms are alleviated by elevating head, remaining still, the symptoms are aggravated by activity, lying flat. Associated signs and symptoms: Pertinent positives: non-productive cough, dizziness. Allergies No Known Allergies Allergy (Verified 06/19/23 12:41) Home medications list reviewed: Yes Home Medications: Aspirin 81 mg PO DAILY 03/19/24 Furosemide [Lasix*] 40 mg PO BID 03/19/24 Insulin Glargine,Hum.rec.anlog [Julioueduar Ibarra Solostar] 15 units SQ DAILY 03/19/24 Losartan Potassium [Cozaar] 50 mg PO DAILY 03/19/24 Metoprolol Tartrate [Lopressor*] 50 mg PO BID 30 Days #60 tab 03/21/24 Gabapentin [Neurontin*] 300 mg PO BEDTIME 06/12/24 - Past Medical/Surgical History Diabetic: Yes -: DM II with Polyneuropathy -: HLD -: HTN -: ESRD/ CKD with Proteinura (Dr. Rojas/ Garett) on HD TTS -: Pulmonary HTN -: Left arm Fistula -: 3V CABG 01/12 Psychosocial/ Personal History: Patient lives at home alone. - Family History Father Medical History: Diabetes Mother Medical History: Stroke Notes: DM,HTN, ESRD, CABD with stents - Social History Smoking Status: Unknown if ever smoked Alcohol use: No CD- Drugs: No Caffeine use: Yes Review of Systems 10-point ROS is otherwise unremarkable General: Weakness, Malaise Respiratory: SOB with Excertion Physical Examination Temp Pulse Resp BP Pulse Ox 98.5 F 82 16 139/78 97 06/14/24 08:00 06/14/24 08:45 06/14/24 08:00 06/14/24 08:45 06/14/24 08:00 General: Oriented x3, Cooperative, Mild distress HEENT: Atraumatic Neck: Supple Respiratory: Normal air movement Cardiovascular: Regular rate/rhythm, Edema Gastrointestinal: Soft and benign, Non-distended Musculoskeletal: No clubbing, No contractures Integumentary: No rashes, No cyanosis Neurological: Normal speech Blood work reviewed in the chart. Imagings Data: [id number] EXAM: CT Chest For Pe Angio TECHNIQUE: CT angiogram of the chest was performed following intravenous contrast administration, including sagittal and coronal as well as maximum intensity projection reformats. One or more of the following dose reduction techniques were used: Automated exposure control, adjustment of the mA and kV according to patient size, and iterative reconstruction. Unless otherwise specified, incidental findings do not require dedicated imaging follow-up. INDICATION: Hypoxic COMPARISON: Noncontrast CT chest of earlier the same day. FINDINGS: LINES/TUBES: None. PULMONARY ARTERIES: Main pulmonary arteries are normal in caliber. No filling defects within the pulmonary arteries to suggest pulmonary embolus. LUNGS AND AIRWAYS: Dependent airspace opacities with volume loss most notably with segmental opacification of the dependent left lower lobe. Airways are patent. PLEURA: Bilateral pleural effusions, larger on the right, stable. No pneumothorax. HEART AND MEDIASTINUM: The visualized thyroid gland is normal. No mediastinal, hilar, or axillary lymphadenopathy. Heart is unremarkable. No pericardial effusion. SOFT TISSUES AND BONES: No acute osseous abnormality. Healing left first and sixth rib fractures again seen. No significant soft tissue finding. UPPER ABDOMEN: Unremarkable. IMPRESSION: No evidence of acute central pulmonary emboli. Stable findings including bilateral pleural effusions larger on the right and left more than right dependent airspace opacities, could reflect atelectasis. [id number] EXAMINATION: US Extrem Venous W Compress Adarsh CLINICAL INDICATION: [facility] MAIN PAIN Bed Name: 7 N TECHNIQUE: Complete bilateral duplex sonography of the bilateral lower extremity veins was performed. The examination included compression for vein patency, color Doppler imaging and flow augmentation in response to distal compression of the distal external iliac, common femoral, femoral, popliteal, tibial, and great and small saphenous veins. COMPARISON: No prior exam. FINDINGS: Duplex sonography testing of the veins of the BILATERAL lower extremity was performed. Color flow imaging shows all veins to be compressible with [id number] color filling. Pulsatile and phasic flow is present within all lower extremity deep and superficial veins examined. IMPRESSION: There is no deep vein or superficial vein thrombosis. [id number] EXAMINATION: CT Thorax Wo Con CLINICAL INDICATION: Male, 49 years old[address] [facility] MAIN DYSPNEA Bed Name: 7 Y TECHNIQUE: Axial CT scan of the chest without intravenous contrast. Multiplanar reformats were generated and reviewed. One or more of the following dose reduction techniques were used: Automated exposure control, adjustment of the mA and/or kV according patient size, and/or iterative reconstruction. Unless otherwise specified, incidental findings do not require dedicated imaging follow-up. COMPARISON: 05/26/2024 CT chest. 06/12/2024 chest radiograph. FINDINGS: LOWER NECK: Visualized thyroid gland and soft tissues are normal. LUNGS: Progressive opacification involving most of the left lower lobe sparing the apex, with some air bronchograms. Associated volume loss.. No worrisome nodules. PLEURA: Moderate right and small left pleural effusion, stable. No pneumothorax. . MEDIASTINUM AND LYMPH NODES: Stable up to moderate cardiomegaly. No mediastinal mass or fluid collection. Normal size mediastinal, hilar, and axillary lymph nodes. OSSEOUS STRUCTURES AND CHEST WALL: Healing posterior left first rib and anterolateral left sixth rib fractures, stable. UPPER ABDOMEN: No significant abnormalities. IMPRESSION: Stable bilateral pleural effusions larger on the right, with progressive opacification and volume loss in the left lower lobe, could reflect atelectasis or developing airspace disease. Healing left first and sixth rib fractures again seen. [id number] EXAMINATION: ONE VIEW CHEST XR CLINICAL INDICATION: Male, 49 years old.,COUGH TECHNIQUE: Frontal chest projection is submitted. Examination is limited by patient positioning and technique. COMPARISON: 05/26/2024 FINDINGS: The lungs are well inflated and clear. No pneumothorax or sizable effusion. The heart is moderately enlarged in size. Mediastinal contours are unchanged. IMPRESSION: No acute intrathoracic abnormalities. Stable cardiomegaly. LEFT VENTRICULAR WALL MOTION: NORMAL DOPPLER/COLOR FLOW: NORMAL COMMENTS: 1. MILD LEFT VENTRICULAR HYPERTROPHY 2. NORMAL LEFT VENTRICULAR SYSTOLIC FUNCTION, EJECTION FRACTION 60-65%, NORMAL WALL MOTION 3. NORMAL DIASTOLIC DYSFUNCTION 4. MILD PULMONARY HYPERTENSION (RIGHT VENTRICULAR SYSTOLIC PRESSURE 40-45 mmHg) Conclusions/Impression: ESRD on HD TTS Proteinuria -HD TIW Hyponatremia -HD TIW HTN with CKD/ CHF -Continue Losartan -Continue Metoprolol Acute Respiratory Failure with Hypoxia BL Pleural Effusions -Pulmonary following; may benefit from a thoracentesis -Continue furosemide Diastolic CHF, A/C -UF with HD -Low sodium diet -Continue furosemide DM II with CKD & Polyneuropathy -Continue Gabapentin -RISS Anemia in CKD -Retacrit X1 CKD MBD Secondary HyperParathyroidism -Start Renvela -Start Ego Hospitalist and ER notes reviewed Thank you kindly for the consultation
[2024-06-14] MEDS: EPOETIN ALFA-EPBX 10,000 UNIT/ML VIAL SQ ONE (09:25)
[2024-06-14] MEDS: SEVELAMER CARBONATE 800 MG TABLET PO SCH (12:00)
--- NOTE | 2024-06-14 12:02 | EKG ---
Test Date: 2024-06-12 Test Time: 12:32:20 Spinner Tender: VALERIY MEASUREMENT RESULTS: Intervals: Rate: 98 [place]: 138 QRSD: 98 QT: 378 QTc: 482 [place]: P: 64 [place]: 138 QRS: -45 T: 82 INTERPRETIVE STATEMENTS: Normal sinus rhythm Left anterior fascicular block Minimal voltage criteria for LVH, may be normal variant Prolonged QT Abnormal ECG Compared to ECG 05/26/2024 05:00:22 Fusion complex(es) no longer present ST (T wave) deviation no longer present Electronically Signed On 06-14-24 11:59:28 ANIMAL RIDES MANAGER by Maximiliano Lewis
--- NOTE | 2024-06-14 12:09 | P.CNS ---
Date of Consult: 06/14/24 Reason for Consult: Hypoxemia and chronic cough Chief Complaint: Hypoxemia and chronic cough History of Present Illness: Patient is 49 years of age end-stage renal disease he was sent to the hospital from the dialysis unit due to low oxygen saturations complaining of chronic cough for the past 3 months current with his dialysis denies any swelling of his lower extremities has never smoked Allergies No Known Allergies Allergy (Verified 06/19/23 12:41) Home Medications: Aspirin 81 mg PO DAILY 03/19/24 Furosemide [Lasix*] 40 mg PO BID 03/19/24 Insulin Glargine,Hum.rec.anlog [Toujeo Max Solostar] 15 units SQ DAILY 03/19/24 Losartan Potassium [Cozaar] 50 mg PO DAILY 03/19/24 Metoprolol Tartrate [Lopressor*] 50 mg PO BID 30 Days #60 tab 03/21/24 Gabapentin [Neurontin*] 300 mg PO BEDTIME 06/12/24 - Past Medical/Surgical History Diabetic: Yes -: DM II with Polyneuropathy -: HLD -: HTN -: ESRD/ CKD with Proteinura (Dr. Rojas/ Garett) on HD TTS -: Pulmonary HTN -: Left arm Fistula -: 3V CABG 01/12 Psychosocial/ Personal History: Patient lives at home alone. - Family History Father Medical History: Diabetes Mother Medical History: Stroke Notes: DM,HTN, ESRD, CABD with stents - Social History Smoking Status: Unknown if ever smoked Alcohol use: No CD- Drugs: No Caffeine use: Yes Review of Systems 10-point ROS is otherwise unremarkable General: Weakness Respiratory: Cough, Shortness of Breath Physical Examination Temp Pulse Resp BP Pulse Ox 98.5 F 70 16 139/78 97 06/14/24 08:00 06/14/24 09:00 06/14/24 08:00 06/14/24 08:45 06/14/24 08:00 General: Alert, Oriented x3 HEENT: Atraumatic Neck: Supple Respiratory: Clear to auscultation bilaterally Cardiovascular: No edema, Regular rate/rhythm, Normal S1 S2 Gastrointestinal: Normal bowel sounds, Soft and benign, Non-distended - Problems (1) Chronic cough Current Visit: Yes Status: Acute Plan: Patient has had a chronic cough for the past 3 months add an inhaled steroid with the PPI for now x-ray is clear patient has bilateral pleural effusions no obvious infiltrate is any symptoms of postnasal drainage mild hypoxemia vital signs are stable mild normocytic anemia there is no evidence of pulmonary embolism diagnostic data reviewed possible discharge on Advair 251 puff twice a day and a PPI for his chronic cough continue with gabapentin sure why he is hypoxic will need outpatient pulmonary function testing underlying obstructive airways disease
[2024-06-14] MEDS: DULERA 200/5 (MOMETASONE/FORMOTEROL) INHALER IH SCH (12:30)
[2024-06-14] MEDS: PANTOPRAZOLE 40MG TABLET PO SCH (12:30)
--- NOTE | 2024-06-14 12:58 | P.PN ---
Date of Service: 06/14/24 Subjective: Cough remains. Denies fevers and chills. Associated symptoms and nagging feeling in the throat. He rates the pain at a 6 out of 10. Review of Systems General: Unremarkable Eyes: Unremarkable ENT: Nose Congestion Respiratory: Cough Cardiovascular: Unremarkable Gastrointestinal: Unremarkable Genitourinary: Unremarkable Musculoskeletal: Unremarkable Integumentary: Unremarkable Neurological: Unremarkable Physical Examination - Vital Signs Temperature: 98.5 F Blood Pressure: 153/79 Pulse: 75 Respirations: 16 Pulse Ox (%): 97 - Physical Exam General: Alert, In no apparent distress HEENT: Atraumatic, Normocephalic Neck: Supple, 2+ carotid pulse no bruit Respiratory: Normal air movement, Diminished, Dull Cardiovascular: Normal pulses Capillary refill: <2 Seconds Gastrointestinal: Normal bowel sounds Musculoskeletal: No clubbing Integumentary: No rashes Neurological: Normal gait, Normal speech Lymphatics: No axilla or inguinal lymphadenopathy - Studies Laboratory Data (last 24 hrs) 06/12/24 12:27 Sodium 132 L Potassium 3.9 BUN 20 H Creatinine 4.35 H Glucose 106 Magnesium 1.9 Total Bilirubin 0.9 AST < 10 L ALT 17 Alkaline Phosphatase 127 H Lipase 23 Assessment And Plan Acute hypoxic respiratory failure 2/2 bilateral pleural effusion -oxygen protocol ordered -on 2 LNC -CT PE without any evidence of blood clot Cough -Pulmonology consulted -Add Advair twice daily -add PPI for chronic cough -Using Tessalon Perles, Lasix, guaifenesin / codeine cough syrup -Follow-up with Dr. Nunez with pulmonology -If cough persists may need to see ENT doctor -Can trial antihistamine ESRD on dialysis Metabolic alkalosis -Ph 7.50, Pco2 43.6, PO2 71.2, HCO3 33.6 -last dialysis 06/12, prior to admission -reports, he does not make urine -Dialysis per nephrology DM-IDDM -accucheck with SSI -A1C still pending CAD s/p 3 vessel CABG Congestive heart failure Hypertension neuropathy -Continue aspirin, metoprolol -continuous telemetry Hypertension -Continue losartan Hyponatremia -Per nephrology. Managed with dialysis DVT ppx heparin Full code LOS 24 hour OBS Discharge Plan: Home Plan to discharge in: 24 Hours - Advance Directives Does patient have a Living Will: No Does patient have a Durable POA for Healthcare: No
[2024-06-14] MEDS: ACETAMINOPHEN 325 MG TABLET PO PRN (17:04)
[2024-06-14] MEDS: DOCUSATE NA 100 MG CAP PO SCH (21:02)
[2024-06-15 05:16] LABS: Absolute Basophils 0.1 K/uL (0-0.5); Absolute Eosinophils 0.4 K/uL (0-0.5); Absolute Lymphocytes (CBC) 1.1 K/uL (0.7-4.9); Absolute Neutrophil 3.7 K/uL (1.8-8.0); Basophils % 1.3 % (0-1.3); Eosinophils % 5.8 % (0-4.4); Hematocrit 23.1 % (39.6-49.0); Hemoglobin 7.8 g/dL (13.6-17.9); Lymphocytes % 17.2 % (15.3-44.8); MCH 31.4 pg (27.0-35.0); MCHC 33.8 g/dL (32.0-36.0); MCV 92.9 fL (80-100); MPV 7.5 fL (7.6-11.3); Monocytes % 15.5 % (3.3-12.3); Neutrophils % 60.2 % (41.7-73.7); Nucleated Red Blood Cells % 0.2 % (0-0); Platelets 138 thou/uL (152-406); RBC Red Blood Cell Count 2.48 M/uL (4.33-5.43); Red Cell Distribution Width 17.1 % (12.1-15.2)
[2024-06-15 05:51] LABS: Anion Gap 14.7 mEq/L (5.0-15.0); Magnesium 2.2 mg/dL (1.6-2.4); Phosphorus 7.7 mg/dL (2.5-4.9); Potassium 4.7 mEq/L (3.5-5.1)
--- NOTE | 2024-06-15 08:30 | ECHO ---
HEIGHT: 5 ft 8 in WEIGHT: 223 lb 12.8 oz DATE OF STUDY: 06/14/[address]: Marco Fonseca MD 2-DIMENSIONAL: YES M.MODE: YES DOPPLER: YES COLOR FLOW: YES TDS: PORTABLE: YES DEFINITY: BUBBLE STUDY: DIAGNOSIS: RESPIRATORY FAILURE CARDIAC HISTORY: CATHERIZATION: YES SURGERY: YES PROSTHETIC VALVE: NO PACEMAKER: NO MEASUREMENTS (cm) DIASTOLIC (NORMALS) SYSTOLIC (NORMALS) IVSd 1.4 (0.6-1.2) LA Diam 4.0 (1.9-4.0) LVEF 48% LVIDd 5.3 (3.5-5.7) LVIDs 4.0 (2.0-3.5) %FS 24% LVPWd 1.4 (0.6-1.2) Ao Diam 2.9 (2.0-3.7) 2 DIMENSIONAL ASSESSMENT: RIGHT ATRIUM: MILDLY DILATED LEFT ATRIUM: NORMAL RIGHT VENTRICLE: NORMAL LEFT VENTRICLE: NORMAL TRICUSPID VALVE: MILD TRICUSPID REGURGITATION MITRAL VALVE: TRACE MITRAL REGURGITATION PULMONIC VALVE: NORMAL AORTIC VALVE: NORMAL PERICARDIAL EFFUSION: NONE AORTIC ROOT: NORMAL LEFT VENTRICULAR WALL MOTION: NORMAL DOPPLER/COLOR FLOW: GRADE II DIASTOLIC DYSFUNCTION COMMENTS: 1. NORMAL LEFT VENTRICULAR SYSTOLIC FUNCTION, EJECTION FRACTION 55-60%, NORMAL WALL MOTION 2. GRADE II DIASTOLIC DYSFUNCTION 3. MILD ELEVATED FILLING PRESSURE (RIGHT ATRIAL PRESSURE 10-15 mmHg) 4. MODERATE PULMONARY HYPERTENSION (RIGHT VENTRICULAR SYSTOLIC PRESSURE 50-55 mmHg) TECHNOLOGIST: YEN CROWE
[2024-06-15] MEDS: MULTIVITAMINS,THERAPEUT 1 TAB PO SCH (08:54)
[2024-06-15] MEDS: DRISDOL (VITAMIN D=ERGOCALCIFEROL) 50000 UNIT CAP PO SCH (08:55)
[2024-06-15 13:29] LABS: Hepatitis B surface AG Interp. Nonreactive (Nonreactive)
[2024-06-15 13:30] LABS: HBsAG Nonreactive Report Report
--- NOTE | 2024-06-15 14:42 | P.PN ---
Date of Service: 06/15/24 Subjective: His cough has improved. He remains short of breath at times. He states he had a fever of 102 last night. We discussed home O2 walk test. Discussed with pulmonology. Review of Systems General: Unremarkable Eyes: Unremarkable ENT: Nose Congestion Respiratory: Cough Cardiovascular: Unremarkable Gastrointestinal: Unremarkable Genitourinary: Unremarkable Musculoskeletal: Unremarkable Integumentary: Unremarkable Neurological: Unremarkable Physical Examination - Vital Signs Temperature: 98.5 F Blood Pressure: 153/79 Pulse: 75 Respirations: 16 Pulse Ox (%): 97 - Physical Exam General: Alert, In no apparent distress HEENT: Atraumatic, Normocephalic Neck: Supple, 2+ carotid pulse no bruit Respiratory: Normal air movement, Diminished, Dull Cardiovascular: Normal pulses Capillary refill: <2 Seconds Gastrointestinal: Normal bowel sounds Musculoskeletal: No clubbing Integumentary: No rashes Neurological: Normal gait, Normal speech Lymphatics: No axilla or inguinal lymphadenopathy - Studies Laboratory Data (last 24 hrs) 06/12/24 12:27 Sodium 132 L Potassium 3.9 BUN 20 H Creatinine 4.35 H Glucose 106 Magnesium 1.9 Total Bilirubin 0.9 AST < 10 L ALT 17 Alkaline Phosphatase 127 H Lipase 23 Assessment And Plan Acute hypoxic respiratory failure 2/2 bilateral pleural effusion -oxygen protocol ordered -on 2 LNC -CT PE without any evidence of blood clot -Set up oxygen for home use Cough -Improved -Continue Advair and PPI -Using Tessalon Perles, Lasix, guaifenesin / codeine cough syrup -Follow-up with Dr. Nunez with pulmonology for outpatient hypoxia workup ESRD on dialysis Metabolic alkalosis -Dialysis per nephrology DM-IDDM -accucheck with SSI -A1C 7.4 CAD s/p 3 vessel CABG Congestive heart failure Hypertension neuropathy -Continue aspirin, metoprolol -continuous telemetry Hypertension -Continue losartan Hyponatremia -Per nephrology. Managed with dialysis DVT ppx heparin Full code LOS 24 hour OBS Discharge Plan: Home tomorrow Plan to discharge in: 24 Hours - Advance Directives Does patient have a Living Will: No Does patient have a Durable POA for Healthcare: No
[2024-06-16] MEDS: EPOETIN ALFA 10,000 UNIT/ML VIAL SQ SCH (09:00)
[2024-06-16 09:05] VITALS: O2SAT 86
--- NOTE | 2024-06-16 11:12 | P.DS ---
Admission Date: 06/13/24 Discharge Date: 06/16/24 Disposition: ROUTINE DISCHARGE Discharge Condition: GOOD Reason for Admission: Acute hypoxic respiratory failure 2/2 adarsh pleural effusion Hospital Course: 49-year-old male with a past medical history of ESRD on dialysis, diabetes, CAD status post three-vessel CABG, CHF, hypertension who presented with hypoxia and chronic cough. Upon admission CT chest was concerning for possible pneumonia versus large right pleural effusion. CT PE ruled out any evidence of pulmonary embolism. He was dialyzed and started on antibiotics. Pulmonology was consulted. He was started on Dulera and Advair upon discharge. In addition he was started on a PPI for his chronic cough. He will go home with Levaquin as well as outpatient pulmonology follow-up. hosted services analyst was consulted to arrange home O2 and further evaluation for his hypoxia. The remainder of his medical problems are chronic and stable. He is medically optimized for discharge Vital Signs/Physical Exam: Temp Pulse Resp BP Pulse Ox 98.5 F 80 22 H 138/80 100 06/16/24 08:00 06/16/24 09:00 06/16/24 08:00 06/16/24 08:28 06/16/24 08:00 General: Alert, In no apparent distress HEENT: Atraumatic, Normocephalic Neck: Supple, 2+ carotid pulse no bruit Respiratory: Clear to auscultation bilaterally, Normal air movement Cardiovascular: No edema, Normal pulses Capillary refill: <2 Seconds Gastrointestinal: Normal bowel sounds Musculoskeletal: No clubbing Integumentary: No rashes Neurological: Normal gait, Normal speech Lymphatics: No axilla or inguinal lymphadenopathy Laboratory Data at Discharge: WBC 6.20 thou/uL (4.3-10.9) 06/15/24 04:58 Hgb 7.8 g/dL (13.6-17.9) L D 06/15/24 04:58 Hct 23.1 % (39.6-49.0) L 06/15/24 04:58 Plt Count 138 thou/uL (152-406) L 06/15/24 04:58 PT 14.7 SECONDS (10.0-13.0) H 06/12/24 12:27 INR 1.31 06/12/24 12:27 Sodium 128 mEq/L (136-145) L 06/15/24 04:58 Potassium 4.7 mEq/L (3.5-5.1) 06/15/24 04:58 BUN 70 mg/dL (7-18) H 06/15/24 04:58 Creatinine 10.50 mg/dL (0.70-1.30) H 06/15/24 04:58 Glucose 121 mg/dL (74-106) H 06/15/24 04:58 Phosphorus 7.7 mg/dL (2.5-4.9) H 06/15/24 04:58 Magnesium 2.2 mg/dL (1.6-2.4) 06/15/24 04:58 Total Bilirubin 0.9 mg/dL (0.2-1.0) 06/12/24 12:27 AST < 10 U/L (15-37) L 06/12/24 12:27 ALT 17 U/L (16-61) 06/12/24 12:27 Alkaline Phosphatase 127 U/L (45-117) H 06/12/24 12:27 Lipase 23 U/L (13-75) 06/12/24 12:27 Home Medications: Aspirin 81 mg PO DAILY 03/19/24 Furosemide [Lasix*] 40 mg PO BID 03/19/24 Insulin Glargine,Hum.rec.anlog [Toujeo Max Solostar] 15 units SQ DAILY 03/19/24 Losartan Potassium [Cozaar] 50 mg PO DAILY 03/19/24 Metoprolol Tartrate [Lopressor*] 50 mg PO BID 30 Days #60 tab 03/21/24 Gabapentin [Neurontin*] 300 mg PO BEDTIME 06/12/24 Mometasone/Formoterol [Dulera 200 Mcg/5 Mcg Inhaler] 2 puff IH BID #1 inhaler 06/16/24 Pantoprazole [Protonix Tab*] 40 mg PO DAILY #30 tab 06/16/24 Sevelamer Carbonate [Renvela*] 800 mg PO TIDWM #90 tab 06/16/24 New Medications: Mometasone/Formoterol [Dulera 200 Mcg/5 Mcg Inhaler] 2 puff IH BID #1 inhaler Pantoprazole [Protonix Tab*] 40 mg PO DAILY #30 tab Sevelamer Carbonate [Renvela*] 800 mg PO TIDWM #90 tab Followup: Tammy Paul [Primary Care Provider] - 1-2 Weeks
[2024-06-16 16:26] VITALS: TEMP 98.6
[2024-06-16 16:59] VITALS: BP 148/79
== END 2024-06-16 19:02 | disposition home or self-care (01) | DRG 291 ==
LOC: ER 11:55 → ERHOLD 15:11 → 2ND 17:52 → OBSVTOIN 06-13 16:45
PROVIDERS: ADMIT Family Medicine; ATTEND Family Medicine
DX: I13.2 Hypertensive heart and chronic kidney disease with heart failure and with stage 5 chronic kidney disease, or end stage renal disease (principal); I50.33 Acute on chronic diastolic (congestive) heart failure; J96.01 Acute respiratory failure with hypoxia; N18.6 End stage renal disease; E87.3 Alkalosis; E87.1 Hypo-osmolality and hyponatremia; N25.81 Secondary hyperparathyroidism of renal origin; E11.22 Type 2 diabetes mellitus with diabetic chronic kidney disease; E11.42 Type 2 diabetes mellitus with diabetic polyneuropathy; D63.1 Anemia in chronic kidney disease; I25.10 Atherosclerotic heart disease of native coronary artery without angina pectoris; Z60.2 Problems related to living alone; Z99.2 Dependence on renal dialysis; Z79.4 Long term (current) use of insulin; Z95.1 Presence of aortocoronary bypass graft; Z11.52 Encounter for screening for COVID-19; Z79.01 Long term (current) use of anticoagulants; Z79.899 Other long term (current) drug therapy; Z91.158 Patient's noncompliance with renal dialysis for other reason
CPT/HCPCS: 36415; 71045; 71250; 71275; 80048; 80076; 81001; 82805; 82947; 83036; 83690; 83735; 83880; 84100; 84484; 85025; 85610; 86706; 87040; 87340; 87428; 90935; 93005; 93306; 93970; 94010; 94640; 99285; G0378; J1644; J3535; J7613; J7644; Q5106; Q9967

== ENCOUNTER 2024-08-31 06:21 | Emergency (ER) | payer OTHER ==
[2024-08-31 06:59] LABS: Absolute Basophils 0.1 K/uL (0-0.5); Absolute Eosinophils 0.5 K/uL (0-0.5); Absolute Lymphocytes (CBC) 1.1 K/uL (0.7-4.9); Absolute Monocytes 0.7 K/uL (0.1-1.3); Absolute Neutrophil 5.7 K/uL (1.8-8.0); Basophils % 1.5 % (0-1.3); Eosinophils % 5.7 % (0-4.4); Hematocrit 25.5 % (39.6-49.0); MCHC 35.3 g/dL (32.0-36.0); MCV 93.5 fL (80-100); MPV 7.6 fL (7.6-11.3); Neutrophils % 69.8 % (41.7-73.7); Platelets 151 thou/uL (152-406); RBC Red Blood Cell Count 2.73 M/uL (4.33-5.43); Red Cell Distribution Width 15.1 % (12.1-15.2)
[2024-08-31 07:06] LABS: PT Prothrombin Time 13.5 SECONDS (10-13.0); Protime INR 1.19
[2024-08-31 07:23] LABS: ALT/SGPT 20 U/L (16-61); Albumin 3.7 g/dL (3.4-5.0); Albumin/Globulin Ratio 0.9 (1.1-1.8); Alkaline Phosphatase 141 U/L (45-117); BUN Blood Urea Nitrogen 75 mg/dL (7-18); Bicarbonate 27 mEq/L (21-32); Bilirubin Direct 0.3 mg/dL (0-0.2); Bilirubin Indirect, Calculated 0.4 mg/dL (0.2-0.8); Bilirubin Total 0.7 mg/dL (0.2-1.0); Globulin 3.9 g/dL (2.3-3.5); Glomerular Filtration Rate 6 ml/min (=/>90); Glucose Level 116 mg/dL (74-106); Magnesium 1.9 mg/dL (1.6-2.4); NT PRO-BNP 29037 pg/mL (<125); Protein, Total 7.6 g/dL (6.4-8.2); Sodium Level 136 mEq/L (136-145)
[2024-08-31 07:24] LABS: AST/SGOT < 10 U/L (15-37)
--- NOTE | 2024-08-31 07:36 | RAD REPORT ---
Procedure: Chest Single View HISTORY: Chest pain COMPARISON: May 2024 FINDINGS: Small bilateral pleural effusions with mild bibasilar atelectasis. Pulmonary vascular congestion present. Heart moderately enlarged. Post surgical changes involve chest.
--- NOTE | 2024-08-31 07:56 | ER ---
Nurse's Notes [facility] Name: Chava Pate Age: 49 yrs Sex: Male : 1975 Arrival Date: 08/31/2024 Time: 06:21 Bed 19 Private MD: Diagnosis: Chest pain, unspecified;Pleural effusion, not elsewhere classified;End stage renal disease Presentation: 08/31 06:46 Chief complaint: Patient states: Chest pain/tightness that started today. Pt was vc1 supposed to have dialysis but sent here from dialysis. Coronavirus screen: Client denies travel out of the [place] in the last 14 days. Ebola Screen: Patient negative for fever greater than or equal to 101.5 degrees Fahrenheit, and additional compatible Ebola Virus Disease symptoms Patient denies exposure to infectious person. Patient denies travel to an Ebola-affected area in the 21 days before illness onset. No symptoms or risks identified at this time. Initial Sepsis Screen: Does the patient meet any 2 criteria? No. Patient's initial sepsis screen is negative. Does the patient have a suspected source of infection? No. Patient's initial sepsis screen is negative. Risk Assessment: Do you want to hurt yourself or someone else? Patient reports no desire to harm self or others. Onset of symptoms was August 31, 2024. 06:46 Method Of Arrival: Ambulatory vc1 06:46 Acuity: EDINSON 3 vc1 Triage Assessment: 06:49 General: Appears in no apparent distress. uncomfortable, Behavior is calm, cooperative, vc1 appropriate for age. Pain: Complains of pain in anterior aspect of left upper chest Pain does not radiate. Pain currently is 6 out of 10 on a pain scale. Quality of pain is described as tight. EENT: No deficits noted. No signs and/or symptoms were reported regarding the EENT system. Neuro: Level of Consciousness is awake, alert, obeys commands, Oriented to person, place, time, situation, Appropriate for age. Cardiovascular: Reports chest pain, Capillary refill < 3 seconds Patient's skin is warm and dry. Respiratory: Airway is patent Respiratory effort is even, unlabored, Respiratory pattern is regular, symmetrical, Breath sounds are clear bilaterally. GI: No deficits noted. No signs and/or symptoms were reported involving the gastrointestinal system. : No deficits noted. No signs and/or symptoms were reported regarding the genitourinary system. Derm: No deficits noted. No signs and/or symptoms reported regarding the dermatologic system. Musculoskeletal: No deficits noted. No signs and/or symptoms reported regarding the musculoskeletal system. Historical: - Allergies: 06:48 Eliquis; vc1 - PMHx: 06:48 Congestive heart failure; ESRD; Hypertension; IDDM; Kidney failure- dialysis (Left arm vc1 fistula); neuropathy; - PSHx: 06:48 Left arm fistula; triple heart bypass; vc1 - Immunization history:: Client reports receiving the 2nd dose of the Covid vaccine. - Infectious Disease History:: Denies. - Social history:: Smoking status: Patient denies any tobacco usage or history of. - Family history:: not pertinent. - Hospitalizations: : No recent hospitalization is reported. Screenin:48 [facility] ED Fall Risk Assessment (Adult) History of falling in the last 3 months, vc1 including since admission No falls in past 3 months (0 pts) Confusion or Disorientation No (0 pts) Intoxicated or Sedated No (0 pts) Impaired Gait No (0 pts) Mobility Assist Device Used No (0 pt) Altered Elimination No (0 pt) Score/Fall Risk Level 0 - 2 = Low Risk Oriented to surroundings, Maintained a safe environment, Educated pt \T\ family on fall prevention, incl call for assistance when getting out of bed, Hourly rounding (assess needs \T\ fall precautionary measures) done. Abuse screen: Denies threats or abuse. Nutritional screening: No deficits noted. Tuberculosis screening: No symptoms or risk factors identified. Assessment: 07:52 Reassessment: No changes from previously documented assessment. Patient and/or family ll1 updated on plan of care and expected duration. Pain level reassessed. Dr. Ruiz at . 08:09 Pain: Pain began 4 hours ago. ll1 Vital Signs: 06:38 BP 158 / 72; Pulse 75; Resp 16; Temp 98; Pulse Ox 95% ; Weight 102.06 kg; Height 5 ft. rk3 8 in. ; 06:46 Height 5 ft. 8 in. ; Pain 6/10; vc1 07:51 BP 157 / 83; Pulse 73; Resp 17; Pulse Ox 93% on R/A; ll1 06:38 Body Mass Index 34.21 (102.06 kg, 172.72 cm) rk3 06:46 Pain Scale: Adult vc1 ED Course: 06:23 Patient arrived in ED. mr 06:48 Triage completed. vc1 06:48 Arm band placed on right wrist. vc1 06:49 Patient has correct armband on for positive identification. Provided Education on: Plan vc1 of care. Pulse ox on. NIBP on. 06:52 Initial lab(s) drawn, by me, sent to lab. Inserted saline lock: 20 gauge in right rk3 antecubital area, using aseptic technique. Blood collected. Flushed with 10 mL NS. 06:56 Oscar Ruiz MD is Attending Physician. rn 07:26 XRAY Chest (1 view) In Process Unspecified. EDAK 07:30 Gretta Contreras, RN is Primary Nurse. ll1 08:09 No provider procedures requiring assistance completed. IV discontinued, intact, ll1 bleeding controlled, No redness/swelling at site. Pressure dressing applied. Patient maintains SpO2 saturation greater than 95% on room air. Administered Medications: No medications were administered Medication: 06:49 VIS not applicable for this client. vc1 Outcome: 07:56 Discharge ordered by . rn 08:09 Discharged to home ambulatory, ll1 08:09 Condition: stable 08:09 Discharge instructions given to patient, Instructed on discharge instructions, follow up and referral plans. 08:09 Patient left the ED. ll1 Signatures: Dispatcher [employer] EDAK Lili Stevens, Yoseph Hameed mr Oscar Ruiz MD MD rn Lewis, Lynsay, RN RN ll1 Kalli Sullivan RN RN vc1 Madeline Jesus rk3
--- NOTE | 2024-08-31 07:56 | EDPHYS ---
Physician Documentation [facility] Name: Chava Pate Age: 49 yrs Sex: Male : 1975 Arrival Date: 08/31/2024 Time: 06:21 Bed 19 Private MD: ED Physician Oscar Ruiz HPI: 08/31 07:38 This 49 yrs old Male presents to ER via Ambulatory with complaints of Chest rn Pain. 07:38 The patient or guardian reports chest pain that is located primarily in the anterior rn chest wall, left. Onset: this morning. The pain does not radiate. Modifying factors: The symptoms are alleviated by nothing. the symptoms are aggravated by nothing. Severity of pain: At its worst the pain was mild in the emergency department the pain is unchanged. The patient has experienced similar episodes in the past. Patient reports was at dialysis and started to feel left sided chest pain. Was sent here and not dialyzed. Patient denies any fever or chills. Does not feel ill. No shortness of breath out of the ordinary. Today is his normal dialysis day. Has been compliant with dialysis. No cough. Patient states had bypass surgery 6 months ago and has not had any problems since then. Patient states that this type of pain is mild and feels different than the pains he was having prior to bypass surgery.. Historical: - Allergies: 06:48 Eliquis; vc1 - PMHx: 06:48 Congestive heart failure; ESRD; Hypertension; IDDM; Kidney failure- dialysis (Left arm vc1 fistula); neuropathy; - PSHx: 06:48 Left arm fistula; triple heart bypass; vc1 - Immunization history:: Client reports receiving the 2nd dose of the Covid vaccine. - Infectious Disease History:: Denies. - Social history:: Smoking status: Patient denies any tobacco usage or history of. - Family history:: not pertinent. - Hospitalizations: : No recent hospitalization is reported. ROS: 07:38 Constitutional: Negative for fever, chills, and weight loss, Cardiovascular: Positive rn for left-sided chest pain Respiratory: Negative for shortness of breath, cough, wheezing, and pleuritic chest pain, Abdomen/GI: Negative for abdominal pain, nausea, vomiting, diarrhea, and constipation, Back: Negative for injury and pain, MS/Extremity: Negative for injury and deformity, Skin: Negative for injury, rash, and discoloration, Neuro: Negative for headache, weakness, numbness, tingling, and seizure, Exam: 07:38 Constitutional: This is a well developed, well nourished patient who is awake, alert, rn and in no acute distress. Cardiovascular: Regular rate and rhythm. No pulse deficits. Respiratory: Speaking full sentences, unlabored. Abdomen/GI: Soft, nontender Vital Signs: 06:38 BP 158 / 72; Pulse 75; Resp 16; Temp 98; Pulse Ox 95% ; Weight 102.06 kg; Height 5 ft. rk3 8 in. ; 06:46 Height 5 ft. 8 in. ; Pain 6/10; vc1 07:51 BP 157 / 83; Pulse 73; Resp 17; Pulse Ox 93% on R/A; ll1 06:38 Body Mass Index 34.21 (102.06 kg, 172.72 cm) rk3 06:46 Pain Scale: Adult vc1 MDM: 06:56 Medical Screening Exam initiated rn 07:54 Differential diagnosis: acute myocardial infarction, acute pericarditis, anxiety, rn coronary artery disease chest wall pain, pleurisy, pneumonia, pneumothorax, Pulmonary edema, pleural effusion, volume overload, nonspecific chest pain. HEART Score: History: Slightly Suspicious (0), ECG: Non specific repolarization disturbance / LBTB / PM (1), Age: > 45 and < 65 years (1), Risk Factors: > or = 3 Risk factors for atherosclerotic disease (2), Troponin: < or = 1 x Normal Limit (0), Total Score = 4. Data reviewed: vital signs, nurses notes, lab test result(s), EKG, radiologic studies, plain films, and as a result, I will discharge patient. Counseling: I had a detailed discussion with the patient and/or guardian regarding the historical points, exam findings, and any diagnostic results supporting the discharge/admit diagnosis, lab results, radiology results, the need for outpatient follow up, to return to the emergency department if symptoms worsen or persist or if there are any questions or concerns that arise at home. Special discussion: Based on the patient's history, exam, and Dx evaluation, there is no indication for emergent intervention or inpatient Tx. It is understood by the patient/guardian that if the Sx's persist or worsen they need to return immediately for re-evaluation. I discussed with the patient/guardian in detail that at this point there is no indication for admission to the hospital. It is understood, however, that if the symptoms persist or worsen the patient needs to return immediately for re-evaluation. ED course: No acute ischemic findings on ECG, troponin negative. Chest x-ray shows bilateral pleural effusions with pulmonary edema. Patient is 95% on room air, denies dyspnea. Will discharge back to dialysis so he can get his normally scheduled dialysis. No indication for emergent admission at this time. Return precautions given if symptoms worsen or persist despite dialysis.. 08/31 06:33 Order name: Basic Metabolic Panel; Complete Time: 07:32 sp4 08/31 06:33 Order name: CBC with Diff; Complete Time: 07:32 sp4 08/31 06:33 Order name: LFT's; Complete Time: 07:32 sp4 08/31 06:33 Order name: Magnesium; Complete Time: 07:32 sp4 08/31 06:33 Order name: NT PRO-BNP; Complete Time: 07:32 sp4 08/31 06:33 Order name: PT-INR; Complete Time: 07:32 sp4 08/31 06:33 Order name: Troponin HS; Complete Time: 07:32 sp4 08/31 06:33 Order name: XRAY Chest (1 view); Complete Time: 07:38 sp4 08/31 06:33 Order name: Cardiac monitoring; Complete Time: 08:09 sp4 08/31 06:33 Order name: EKG - Nurse/Tech; Complete Time: 06:40 sp4 08/31 06:33 Order name: IV Saline Lock; Complete Time: 06:52 sp4 08/31 06:33 Order name: Labs collected and sent; Complete Time: 06:52 sp4 08/31 06:33 Order name: O2 Per Protocol; Complete Time: 08:09 sp4 08/31 06:33 Order name: O2 Sat Monitoring; Complete Time: 08:09 sp4 Administered Medications: No medications were administered Disposition Summary: 08/31/24 07:56 Discharge Ordered Notes: Location: Home rn Problem: new rn Symptoms: have improved rn Condition: Stable rn Diagnosis - Chest pain, unspecified rn - Pleural effusion, not elsewhere classified rn - End stage renal disease rn Followup: rn - With: Private Physician - When: As needed - Reason: Recheck today's complaints, Re-evaluation by your physician Discharge Instructions: - Discharge Summary Sheet rn - Nonspecific Chest Pain, Adult rn - End-Stage Kidney Disease rn Forms: - Medication Reconciliation Form rn - Antibiotic rn on site - Prescription Opioid Use rn - Patient Portal Instructions rn - Leadership Thank You Letter rn Signatures: Dispatcher [employer] EDMS Oscar Ruiz MD MD rn Calcote, Vanessa, RN RN vc1 Bk Hassan MD MD sp4 Corrections: (The following items were deleted from the chart) 06:34 06:34 BASIC METABOLIC PANEL+C.LAB.BRZ ordered. EDMS EDMS 06:34 06:34 CBC+H.LAB.BRZ ordered. EDMS EDMS 06:34 06:34 HEPATIC FUNCTION+C.LAB.BRZ ordered. EDMS EDMS 06:34 06:34 MAGNESIUM+C.LAB.BRZ ordered. EDMS EDMS 06:34 06:34 PROBNP+C.LAB.BRZ ordered. EDMS EDMS 06:34 06:34 PROTIME (+INR)+COAG.LAB.BRZ ordered. EDMS EDMS 06:34 06:34 Troponin High Sensitivity+C.LAB.BRZ ordered. EDMS EDMS 06:34 06:34 Chest Single View+RAD.RAD.BRZ ordered. EDMS EDMS
[2024-08-31 08:32] VITALS: TEMP 98
[2024-08-31 08:34] VITALS: BP 157/83; O2SAT 93
--- NOTE | 2024-09-01 12:21 | EKG ---
Test Date: 2024-08-31 Test Time: 06:33:21 Rails Developer: GUSTAVO MEASUREMENT RESULTS: Intervals: Rate: 76 PA: 124 QRSD: 94 QT: 434 QTc: 488 Sanders: P: 60 PA: 124 QRS: -38 T: 80 INTERPRETIVE STATEMENTS: Normal sinus rhythm Left axis deviation Prolonged QT Abnormal ECG Compared to ECG 06/12/2024 12:32:20 Left-axis deviation now present Left anterior fascicular block no longer present Left ventricular hypertrophy no longer present Electronically Signed On 09-01-24 12:20:08 CDT by Maximiliano Lewis
== END 2024-08-31 08:09 | disposition home or self-care (01) ==
LOC: ER 06:21
DX: J90 Pleural effusion, not elsewhere classified (principal); E11.22 Type 2 diabetes mellitus with diabetic chronic kidney disease; I13.2 Hypertensive heart and chronic kidney disease with heart failure and with stage 5 chronic kidney disease, or end stage renal disease; I50.9 Heart failure, unspecified; N18.6 End stage renal disease; Z99.2 Dependence on renal dialysis; Z95.1 Presence of aortocoronary bypass graft
CPT/HCPCS: 36415; 71045; 80048; 80076; 83735; 83880; 84484; 85025; 85610; 93005; 99284